=== PATIENT | male | born 1950 | race Caucasian/White ===

== ENCOUNTER → 2017-11-13 08:55 | Outpatient (CLI) | payer OTHER, SELFPAY ==
--- NOTE | 2017-11-13 09:01 | ADUL_ITS ---
Reason For Study: Subclavian stenosis LEFT Subclavian A Above clavicle - 179.0 cm/s Prox - 241.0 cm/s Mid -212.0 cm/s Dist - 149.0 cm/s Axillary A - 207.0 cm/s Brachial A Prox 152.0 cm/s Mid - 157.0 cm/s Dist - 108.0 cm/s Radial A Prox - 101.0 cm/s Mid - 91.1 cm/s Dist -111.0 cm/s Ulnar A Prox - 72.7 cm/s Mid - 57.5 cm/s Dist - 79.7 cm/s. Interpretation Summary 1. Left arm normal duplex with triphasic flow. Ordering Physician: Derrick Nelson Referring Physician: Derrick Nelson Performed By: Jasmyn Grace RVT
--- NOTE | 2017-11-18 11:27 | LEAS ---
Arterial Study - Arterial Study Arterial Study: Date of scan 11/13/[address] Nelson History: Patient with intermittent claudication with known atherosclerosis previous history of subclavian stenosis diabetes hyperlipidemia and tobacco abuse. Interpretation: Right lower extremity with normal pulsatile flow noted from the thigh all the way down through the calf out through the ankle into the foot with an adequate waveform. Duplex shows biphasic flow the vessels at the ankle and triphasic flow the right brachial artery. ABIs are 0.94 the posterior tibial with the digit brachial index is 0.55. Left lower extremity was again with normal pulsatile flow from the thigh down through the calf ankle out through the digits duplex again with biphasic flow noted at the ankle MICHELLE 1.1 to the posterior tibial 0.8 for the dorsalis pedis digit brachial index 0.59. Impression: 1. Right lower extremity with no evidence of significant arterial occlusive disease at rest with an MICHELLE 0.94. 2. Left lower extremity no evidence significant arterial occlusive occlusive disease at rest with an MICHELLE 1.12 3. Mild small vessel disease with DIP digit brachial index 0.55 and 0.59
--- NOTE | 2017-11-18 11:30 | LEAS_ITS ---
Arterial Study - Arterial Study Arterial Study: Date of scan 11/13/[address] Nelson History: Patient with intermittent claudication with known atherosclerosis previous history of subclavian stenosis diabetes hyperlipidemia and tobacco abuse. Interpretation: Right lower extremity with normal pulsatile flow noted from the thigh all the way down through the calf out through the ankle into the foot with an adequate waveform. Duplex shows biphasic flow the vessels at the ankle and triphasic flow the right brachial artery. ABIs are 0.94 the posterior tibial with the digit brachial index is 0.55. Left lower extremity was again with normal pulsatile flow from the thigh down through the calf ankle out through the digits duplex again with biphasic flow noted at the ankle MICHELLE 1.1 to the posterior tibial 0.8 for the dorsalis pedis digit brachial index 0.59. Impression: 1. Right lower extremity with no evidence of significant arterial occlusive disease at rest with an MICHELLE 0.94. 2. Left lower extremity no evidence significant arterial occlusive occlusive disease at rest with an MICHELLE 1.12 3. Mild small vessel disease with DIP digit brachial index 0.55 and 0.59
== END ==
PROVIDERS: Family Provider Family Medicine; PCP Family Medicine; Visit Provider Surgery Vascular Surgery
DX: I70.213 Atherosclerosis of native arteries of extremities with intermittent claudication, bilateral legs (principal); I77.1 Stricture of artery; Z86.73 Personal history of transient ischemic attack (TIA), and cerebral infarction without residual deficits; E11.9 Type 2 diabetes mellitus without complications; E78.00 Pure hypercholesterolemia, unspecified; F17.200 Nicotine dependence, unspecified, uncomplicated
CPT/HCPCS: 93922; 93923; 93926

== ENCOUNTER → 2018-01-14 08:00 | Outpatient (CLI) | payer OTHER, SELFPAY ==
[2018-01-18 14:00] LABS: Protein, Urine (Random) 40.2 mg/dL (<11.9)
[2018-01-18 14:01] LABS: Protein:Creat Ratio 227 mg/g CRE (0-200)
[2018-01-18 14:02] LABS: PTHIN 60.4 pg/mL (18.4-80.1)
== END ==
PROVIDERS: Visit Provider Internal Medicine Nephrology
DX: N18.3 Chronic kidney disease, stage 3 (moderate) (principal)
CPT/HCPCS: 82570; 83970; 84156

== ENCOUNTER → 2018-03-19 09:51 | Outpatient (CLI) | payer OTHER, SELFPAY ==
--- NOTE | 2018-03-19 09:55 | US_ITS ---
STUDY: RENAL ULTRASOUND - COMPLETE REASON FOR EXAM: Male, 67 years old. Chronic kidney disease TECHNIQUE: Ultrasound evaluation of the kidneys was performed with real-time and static mi-scale imaging. COMPARISON: None. FINDINGS: RIGHT KIDNEY: Normal location of the right kidney, which is normal in size. The right kidney measures 10.8 x 5.2 x 5.1 cm. There is a normal cortex of the right kidney. The renal cortex measures 1 cm. There is no right renal mass or cyst. There are no right renal calculi. There is no right hydronephrosis. DISTAL RIGHT URETER: There is non-visualization of the distal right ureter. There is no demonstrated right ureterovesical junction calculus. There is a visualized right ureteral jet. LEFT KIDNEY: Normal location of the left kidney, which is normal in size. The left kidney measures 12.0 x 5.1 x 5.1 cm. There is a normal cortex of the left kidney. The renal cortex measures 0.9 cm. There is a 1.9 cm cyst in the superior portion of the left kidney and a 1.3 cm cyst in the inferior portion of the left kidney There are no left renal calculi. There is no left hydronephrosis. DISTAL LEFT URETER: There is non-visualization of the distal left ureter. There is no demonstrated left ureterovesical junction calculus. There is a visualized left ureteral jet. . BLADDER: The urinary bladder is normal US/Kidney and Bladder IMPRESSION: Benign renal cysts. Electronically Signed: Hughson CarlomagdalenaPatricia, at 7:27 EDT Tel , Service support ,
== END ==
PROVIDERS: Family Provider Family Medicine; PCP Family Medicine; Visit Provider Internal Medicine Nephrology
DX: N18.3 Chronic kidney disease, stage 3 (moderate) (principal)
CPT/HCPCS: 76770

== ENCOUNTER → 2018-04-08 11:28 | Outpatient (CLI) | payer OTHER, SELFPAY ==
[2018-04-08 12:30] LABS: Protein, Urine (Random) 33.6 mg/dL (<11.9); Protein:Creat Ratio 168 mg/g CRE (0-200)
[2018-04-09 09:51] LABS: PTHIN 46.6 pg/mL (18.4-80.1)
== END ==
PROVIDERS: Family Provider Family Medicine; PCP Family Medicine; Visit Provider Internal Medicine Nephrology
DX: N18.3 Chronic kidney disease, stage 3 (moderate) (principal)
CPT/HCPCS: 82570; 83970; 84156

== ENCOUNTER → 2018-06-01 08:45 | Outpatient (CLI) | payer OTHER, SELFPAY ==
[2018-06-01 12:16] LABS: PSA,Total - Annual Screen 0.49 ng/mL (0.00-4.00)
== END ==
PROVIDERS: Family Provider Family Medicine; PCP Family Medicine; Visit Provider Nurse Practitioner Adult Health
DX: N40.1 Benign prostatic hyperplasia with lower urinary tract symptoms (principal); Z12.5 Encounter for screening for malignant neoplasm of prostate
CPT/HCPCS: 36415; 84153; G0103

== ENCOUNTER → 2018-08-12 07:56 | Outpatient (CLI) | payer OTHER, SELFPAY ==
--- NOTE | 2018-08-12 07:58 | AAVD_ITS ---
Reason For Study: Atherosclerosis Aorta Measurements Aorta Doppler Measurements Proximal aorta measures1.35 x 1.30cm. in cross- Peak systolic flow velocities within the proximal sectional axis. aorta measure 53.2 cm/sec. Proximal aorta measures1.32cm. in longitudinal Peak systolic flow velocities within the mid aorta axis. measure 81.3 cm/sec. Mid aorta measures1.78 x 1.69cm. in cross- Peak systolic flow velocities within the distal sectional axis. aorta measure 77.6 cm/sec. Mid aorta measures1.45cm. in longitudinal axis. Distal aorta measures2.26 x 2.18cm. in cross- sectional axis. Distal aorta measures2.17cm. in longitudinal axis. Left Iliac Artery Left iliac artery measures 0.60 x 0.66 cm. in the cross-sectional axis. Left iliac artery measures 0.61 cm. in the longitudinal axis. Peak systolic velocity in the left iliac artery measures 139 cm/sec. Right Iliac Artery Right iliac artery measures 0.94 x 1.16 cm. in the cross-sectional axis. Right iliac artery measures 0.89 cm. in the longitudinal axis. Peak systolic velocity in the right iliac artery measures 312 cm/sec. Procedure Aorta IVC Iliac vasculature or bypass grafts 32391. Exam performed in department. Iliac arteries were technically difficult to visualize due to patient body habitus and bowel gas. Interpretation Summary 1. aorta with no aneurysm or stenosis. 2. right YARI with stenosis over 75% and psv 312. Ordering Physician: Derrick Nelson Referring Physician: Branden Shannon M.D. Performed By: Jaylen Edwards RVT and Student
--- NOTE | 2018-08-18 11:47 | LEAS ---
Arterial Study - Arterial Study Arterial Study: Date of scan: 08/12/[address] Nelson History: Patient with some increasing intermittent claudication. History is smoking diabetes hyperlipidemia. Interpretation. Right lower extremity with pulsatile flow noted at the ankle and adequate waveform duplex shows more of a triphasic waveform noted in both vessels. With an MICHELLE 0.73 of the PT and 0.83 of the DP. Digital brachial index is 0.5. Left lower extremity with follow-up. Flow noted at the ankle with a good waveform. Duplex shows mostly biphasic flow both vessels. With an MICHELLE of 1.01 at the PT and 0.82 with a DP. Digit brachial index 0.44. Subclavian of note the left subclavian was a pressure 154 with the right being 181. Does have a history of subclavian stent. Impression: 1. Mild arterial occlusive disease on the right with an MICHELLE 0.83. 2. Left lower extremity with no evidence of significant arterial occlusive disease at rest with an MICHELLE 1.01. 3. Bilateral small vessel disease with digit brachial index 0.5 on the right 0.44 on the left 4. Decreased blood pressure with 20 seven-point difference from the right to the left arm, further evaluation of previous left subclavian proximal stenosis.
--- OUTSIDE RECORDS SUMMARY | 2018-10-07 07:44 | XMS RPT_ITS ---
:1950 Author Organization OHIP Support Name Relationship Address Phone R Unavailable Unavailable Unavailable ARITA, YOLI Unavailable [address] + [place] [address] R Unavailable Unavailable Unavailable ARITA, YOLI Unavailable [address] + [place] [address] R Unavailable Unavailable Unavailable ARITA, YOLI Unavailable [address] + [place] [address] R Unavailable Unavailable Unavailable ARITA, YOLI Unavailable [address] + [place] [address] R Unavailable Unavailable Unavailable Arita, Yoli Unavailable [address] + [place] [address] R Unavailable Unavailable Unavailable Arita, Yoli Unavailable [address] + [place] [address] R Unavailable Unavailable Unavailable Arita, Yoli Unavailable [address] + [place] [address] R Unavailable Unavailable Unavailable Arita, Yoli Unavailable [address] [phone] [place] [address] R Unavailable Unavailable Unavailable Arita, Yoli Unavailable [address] [phone] [place] [address] R Unavailable Unavailable Unavailable ARITA, YOLI Unavailable [address] [phone] [place] [address] Care Team Providers Name Role Phone Derrick Nelson Attending Unavailable Derrick Nelson Referring Unavailable Branden Shannon Primary Care Formerly [facility] Employee Attending Unavailable Dami Black Attending Unavailable Dami Black Attending Unavailable Dami Black Referring Unavailable Branden Shannon Primary Care Unavailable [facility] Employee Attending Unavailable Dami Black Attending Unavailable Branden Shannon Primary Care Unavailable Dami Black Referring Unavailable Karis Cerna Attending Unavailable Karis Cerna Referring Unavailable TrillaBranden Primary Care Unavailable TrillaBranden Primary Care Unavailable Referred, Self Attending Unavailable [facility] Employee Attending Unavailable NelsonDerrick barnes Gumaro Attending Unavailable OmarDerrick Gumaro Referring Unavailable TrillaBranden Primary Care Unavailable PROBLEMS PROBLEMS DATE TYPE CONDITION / CODE ATTENDING STATUS SOURCE 04/09/2018 Unknown N18.3 - Chronic Dami Black Active [place] kidney disease, stage Community 3 (moderate) / Hospital N18.3(ICD-10) Repository 11/13/2017 Unknown I70.213 - Derrick Nelson A Active [place] Atherosclerosis [facility] [place] arteries of Hospital extremities with Repository intermittent claudication, bilateral legs / I70.213(ICD-10) 11/13/2017 Unknown I77.1 - Stricture of Derrick Nelson A Active [place] artery / Community I77.1(ICD-10) Hospital Repository 11/13/2017 Unknown I63.9 - Cerebral Derrcik Nelson A Active [place] infarction, Community unspecified / Hospital I63.9(ICD-10) Repository 11/13/2017 Unknown E11.9 - Type 2 Derrick Nelson A Active [place] diabetes mellitus [facility] without complications Hospital / E11.9(ICD-10) Repository 11/13/2017 Unknown 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, Repository unspecified / E78.70(ICD-10) 11/13/2017 Unknown F17.200 - Nicotine Derrick eNlson A Active [place] dependence, Community unspecified, Hospital uncomplicated / Repository F17.200(ICD-10) PROCEDURES PROCEDURES No Procedure Records FoundRESULTS RESULTS LOWER EXT ARTERIAL Observed: 08/18/2018 Status: F Source: [place] STUDY 11:50 AM [facility] HOSPITAL REPOSITORY [facility] [address] [place] [address] 08/18/18 1147 MR#: [id number] Acct: [id number] Name: FIDEL ARITA Rep #: [id number] : 1950 67 From: Derrick Nelson MD Attending Dr: Derrick Nelson MD Status: REG CLI Ordering Dr: Date: 08/18/18 Location: [facility] Sex: M C Admitted: Arterial Study - Arterial Study Arterial Study: Date of scan: 08/12/[address] Nelson History: Patient with some increasing intermittent claudication. History is smoking diabetes hyperlipidemia. Interpretation. Right lower extremity with pulsatile flow noted at the ankle and adequate waveform duplex shows more of a triphasic waveform noted in both vessels. With an MICHELLE 0.73 of the PT and 0.83 of the DP. Digital brachial index is 0.5. Left lower extremity with follow-up. Flow noted at the ankle with a good waveform. Duplex shows mostly biphasic flow both vessels. With an MICHELLE of 1.01 at the PT and 0.82 with a DP. Digit brachial index 0.44. Subclavian of note the left subclavian was a pressure 154 with the right being 181. Does have a history of subclavian stent. Impression: 1. Mild arterial occlusive disease on the right with an MICHELLE 0.83. 2. Left lower extremity with no evidence of significant arterial occlusive disease at rest with an MICHELLE 1.01. 3. Bilateral small vessel disease with digit brachial index 0.5 on the right 0.44 on the left 4. Decreased blood pressure with 20 seven-point difference from the right to the left arm, further evaluation of previous left subclavian proximal stenosis. 08/18/18 1150 <Electronically signed by Derrick Nelson MD> Date Derrick Nelson MD CC: Derrick Nelson MD; Branden Shannon DO Date Dictated: 08/18/18 1147 Date Transcribed: 08/18/18 1147 Deicer Finisher: MAURICIO Signed ABD AORTIC/IVC DUPLEX Observed: 08/18/2018 Status: F Source: [place] SCAN 8:31 AM [facility] [address] Abd Aortic/IVC Duplex scan 08/12/18 0802 MR#: [id number] Acct: [id number] Name: FIDEL ARITA #: [id number] : 1950 67 From: Derrick Nelson MD Attending Dr: Derrick Nelson MD Status: REG CLI Ordering Dr: Derrick Nelson MD Date: 08/12/18 Location: [facility] Sex: M C Admitted: Reason For Study: Atherosclerosis Aorta Measurements Aorta Doppler Measurements Proximal aorta measures1.35 x 1.30cm. in cross- Peak systolic flow velocities within the proximal sectional axis. aorta measure 53.2 cm/sec. Proximal aorta measures1.32cm. in longitudinal Peak systolic flow velocities within the mid aorta axis. measure 81.3 cm/sec. Mid aorta measures1.78 x 1.69cm. in cross- Peak systolic flow velocities within the distal sectional axis. aorta measure 77.6 cm/sec. Mid aorta measures1.45cm. in longitudinal axis. Distal aorta measures2.26 x 2.18cm. in cross- sectional axis. Distal aorta measures2.17cm. in longitudinal axis. Left Iliac Artery Left iliac artery measures 0.60 x 0.66 cm. in the cross-sectional axis. Left iliac artery measures 0.61 cm. in the longitudinal axis. Peak systolic velocity in the left iliac artery measures 139 cm/sec. Right Iliac Artery Right iliac artery measures 0.94 x 1.16 cm. in the cross-sectional axis. Right iliac artery measures 0.89 cm. in the longitudinal axis. Peak systolic velocity in the right iliac artery measures 312 cm/sec. Procedure Aorta IVC Iliac vasculature or bypass grafts 14924. Exam performed in department. Iliac arteries were technically difficult to visualize due to patient body habitus and bowel gas. Interpretation Summary 1. aorta with no aneurysm or stenosis. 2. right YARI with stenosis over 75% and psv 312. Ordering Physician: Derrick Nelson Referring Physician: Branden Shannon M.D. Performed By: Jaylen Edwards RVT and Student 08/18/18830 Date Derrick Nelson MD CC: Derrick Nelson MD; Branden Shannon Date Dictated: 08/12/18801 Date Transcribed: 08/18/18830 Deicer Finisher: Signed URINALYSIS, ROUTINE Collected: 08/03/2018 Status: F Source: [place] ([place]IPST[place]) 8:00 AM [facility] Order Comment: How was Urine Obtained? CLEAN CATCH TYPE CODE TESTS RESULT OUT OF RANGE REFERENCE UNITS LAB L400.3000 Yellow COLOR Normal Yellow LAB L400.3050 Clear Normal CLARITY Clear LAB L400.3200 Normal mg/dl Normal GLUCOSE, UR Normal LAB L400.3300 Negative mg/dL Normal BILIRUBIN URINE Negative LAB L400.3400 Negative mg/dl Normal KETONE UR Negative LAB L400.3465 1.002-1.030 Normal SP.GR. DIPSTX 1.025 LAB L400.3550 5.0 - 8.0 pH UR Normal 5.0 LAB L400.3600 Negative mg/dl High PROT 30 DIPSTX LAB L400.3700 Normal mg/dl High 1 UROBILI LAB L400.3750 Negative Normal NITRITE UR Negative LAB L400.3780 Negative /ul Normal OCCULT BLOOD-UR Negative LAB L400.3800 Negative /ul LEUK Normal ESTERASE Negative Performed By: #### L400.2010 #### [facility] [address] [place], [address] CBC W/DIFF, AUTOMATED Collected: 08/03/2018 Status: F Source: [place] 8:00 AM [facility] TYPE CODE TESTS RESULT OUT OF RANGE REFERENCE UNITS LAB L100.1000 4.4-11.0 K/mm3 Normal WBC 5.9 LAB L100.1200 4.6-6.2 M/mm3 Low RBC 4.24 LAB L100.1300 13.0-16.5 g/dl Low HGB 12.9 LAB L100.1400 40-54 % Normal HCT 40.1 LAB L100.1500 80-94 fL High MCV 94.6 LAB L100.1600 27.0-32.0 pg Normal MCH 30.4 LAB L100.1700 32-36 g/gl Normal MCHC 32.2 LAB L100.1810 11.6-14.6 % Normal RDW CV 13.3 LAB L100.1820 35.1-43.9 fl High RDW SD 45.7 LAB L100.1900 150-450 K/mm3 Normal PLT 198 LAB L100.2000 6.2-12.0 fl Normal MPV 10.6 LAB L100.2100 47-70 % Normal NEUT% 58.8 LAB L100.2200 19-41 % Normal LY% 23.2 LAB L100.2300 0-10 % High MONO% 10.2 LAB L100.2400 0-5 % High EO% 7.3 LAB L100.2500 0-1 % Normal BASO% 0.3 LAB L100.2550 0.0-0.9 % Normal IM GRAN % 0.200 Result Comment: IG% - Immature Granulocytes (promyelocytes, myelocytes and metamyelocytes) > 1% indicates that a LEFT SHIFT is Present. LAB L100.2620 2.0-7.7 X10 3/uL Normal Absolute Neut 3.5 LAB L100.2720 0.83-4.51 X10 3/ul Normal Absolute Lymph 1.36 Performed By: #### L100.0100 #### [facility] [address] [facility] [place], [address] RENAL PROFILE Collected: 08/03/2018 Status: F Source: [place] 8:00 AM [facility] TYPE CODE TESTS RESULT OUT OF RANGE REFERENCE UNITS LAB L501.0100 74-106 mg/dL High GLU 226 Result Comment: Glucose result greater than or equal to 200 mg/dL suggests DIABETES MELLITUS per A.D.A. criteria. Please note revised GLUCOSE reference range effective 2017. LAB L501.1000 7-18 mg/dL High BUN 33 LAB L501.1100 0.70-1.30 mg/dL High CREAT,SERUM 2.14 Result Comment: The validity of the calculated GFR AND GFRAA in patients over 70 years has not been determined. Clinical correlation is essential. LAB L501.1110 >60 mL/min Low EST GFR 33 Result Comment: Non- GFR Calc LAB L501.1115 >60 mL/min Low EST GFR - AA 40 Result Comment: GFR Calc LAB L501.1300 10-20 RATIO Normal BUN/CRE 15.4 LAB L501.1800 3.2-5.0 g/dL Normal ALB 3.7 LAB L501.2200 8.5-10.1 mg/dL CA Normal 8.6 LAB L501.2300 2.5-4.9 mg/dL Normal PHOS 3.3 LAB L501.5300 136-145 mmol/L NA Normal 138 LAB L501.5600 3.5-5.1 mmol/L K Normal 5.0 LAB L501.5900 98-107 mmol/L CL Normal 106 LAB L501.6100 21.0-32.0 mmol/L Normal CO2 23.0 Performed By: #### L500.3600 #### [facility] [address] [facility]. [place], [place], [address] VITAMIN D,25 HYDROXY Collected: 08/03/2018 Status: F Source: [place] 8:00 AM [facility] TYPE CODE TESTS RESULT OUT OF REFERENCE UNITS RANGE LAB L506.1000 29.95-100.01 ng/mL Low Vitamin D 20.7 25-OH Result Comment: Vitamin D 25(OH) Status Range Deficiency <20 ng/mL (50nmol/L) Insuffciency 20 - 30 ng/mL (50 - 75 nmol/L) Sufficiency 30 - 100 ng/mL (75 - 250 nmol/L) Toxicity >100 ng/mL (>250 nmol/L) Performed By: #### L506.1000 #### [facility] [address] [facility]. [place], [place], [address] PROTEIN+CREATININE Collected: Status: F Source: [place] RATIO,URINE 08/03/2018 8:00 AM [facility] TYPE CODE TESTS RESULT OUT OF RANGE REFERENCE UNITS LAB L501.1200 NO RANGE EST. mg/dL Normal UR CREAT 338.00 LAB L501.1930 <11.9 mg/dL High 39.1 PROTEIN,UR.R AN. LAB L501.1940 0-200 mg/g CRE Normal PROT:CRE 116 RATIO Performed By: #### L501.0900, L502.0250 #### [facility] [address] [place], [address] MICROALB:CREAT Collected: 08/03/2018 Status: F Source: [place] RATIO,RANDOM UR 8:00 AM [facility] TYPE CODE TESTS RESULT OUT OF RANGE REFERENCE UNITS LAB L502.0500 NO RANGE EST. mg/L Normal 133.0 MICROALBUMIN ,UR LAB L502.0600 <30 mg/g CRE mg/g CRE High 39.3 MALB:CREAT Performed By: #### L501.0900, L502.0250 #### [facility] [address] [facility]. [place], [place], [address] PSA,TOTAL - ANNUAL Collected: 06/01/2018 Status: F Source: [place] SCREEN 8:51 AM [facility] TYPE CODE TESTS RESULT OUT OF RANGE REFERENCE UNITS LAB L501.9910 0.00-4.00 ng/mL Normal PSA,TOT 0.49 SCREEN Result Comment: This test was performed using the TPSA assay method for the [employer] chemistry system. Values obtained with different assay methods cannot be used interchangably. When changing PSA assays in the course of monitoring a patient, additional sequential testing should be carried out to confirm baseline values. Performed By: #### L501.9910 #### [facility] [address] [facility] [place], [address] URINALYSIS, ROUTINE Collected: 04/08/2018 Status: F Source: [place] (DIPST[place]) 8:00 AM [facility] Order Comment: How was Urine Obtained? CLEAN CATCH TYPE CODE TESTS RESULT OUT OF RANGE REFERENCE UNITS LAB L400.3000 Yellow COLOR Normal Yellow LAB L400.3050 Clear Normal CLARITY Clear LAB L400.3200 Normal mg/dl Normal GLUCOSE, UR Normal LAB L400.3300 Negative mg/dL Normal BILIRUBIN URINE Negative LAB L400.3400 Negative mg/dl Normal KETONE UR Negative LAB L400.3465 1.002-1.030 Normal SP.GR. DIPSTX 1.020 LAB L400.3550 5.0 - 8.0 pH UR Normal 5.0 LAB L400.3600 Negative mg/dl High PROT 30 DIPSTX LAB L400.3700 Normal mg/dl Normal UROBILI Normal LAB L400.3750 Negative Normal NITRITE UR Negative LAB L400.3780 Negative /ul Normal OCCULT BLOOD-UR Negative LAB L400.3800 Negative /ul LEUK Normal ESTERASE Negative Performed By: #### L400.2010 #### [facility] [place], [address] CBC W/DIFF, AUTOMATED Collected: 04/08/2018 Status: F Source: [place] 8:00 AM [facility] TYPE CODE TESTS RESULT OUT OF RANGE REFERENCE UNITS LAB L100.1000 4.4-11.0 K/mm3 Normal WBC 6.1 LAB L100.1200 4.6-6.2 M/mm3 Low RBC 4.17 LAB L100.1300 13.0-16.5 g/dl Low HGB 12.8 LAB L100.1400 40-54 % Low HCT 39.2 LAB L100.1500 80-94 fL Normal MCV 94.0 LAB L100.1600 27.0-32.0 pg Normal MCH 30.7 LAB L100.1700 32-36 g/gl Normal MCHC 32.7 LAB L100.1810 11.6-14.6 % Normal RDW CV 13.2 LAB L100.1820 35.1-43.9 fl Normal RDW SD 43.7 LAB L100.1900 150-450 K/mm3 Normal PLT 193 LAB L100.2000 6.2-12.0 fl Normal MPV 10.9 LAB L100.2100 47-70 % Normal NEUT% 57.3 LAB L100.2200 19-41 % Normal LY% 26.8 LAB L100.2300 0-10 % Normal MONO% 9.6 LAB L100.2400 0-5 % High EO% 5.8 LAB L100.2500 0-1 % Normal BASO% 0.2 LAB L100.2550 0.0-0.9 % Normal IM GRAN % 0.300 Result Comment: IG% - Immature Granulocytes (promyelocytes, myelocytes and metamyelocytes) > 1% indicates that a LEFT SHIFT is Present. LAB L100.2620 2.0-7.7 X10 3/uL Normal Absolute Neut 3.5 LAB L100.2720 0.83-4.51 X10 3/ul Normal Absolute Lymph 1.62 Performed By: #### L100.0100 #### [facility] [address] [place], [address] RENAL PROFILE Collected: 04/08/2018 Status: F Source: [place] 8:00 AM [facility] TYPE CODE TESTS RESULT OUT OF RANGE REFERENCE UNITS LAB L501.0100 74-106 mg/dL High GLU 189 Result Comment: Fasting Glucose result greater than or equal to 126 mg/dL suggests DIABETES MELLITUS per A.D.A. criteria. Please note revised GLUCOSE reference range effective 2017. LAB L501.1000 7-18 mg/dL High BUN 34 LAB L501.1100 0.70-1.30 mg/dL High CREAT,SERUM 2.31 Result Comment: The validity of the calculated GFR AND GFRAA in patients over 70 years has not been determined. Clinical correlation is essential. LAB L501.1110 >60 mL/min Low EST GFR 30 Result Comment: Non- GFR Calc LAB L501.1115 >60 mL/min Low EST GFR - AA 36 Result Comment: GFR Calc LAB L501.1300 10-20 RATIO Normal BUN/CRE 14.7 LAB L501.1800 3.2-5.0 g/dL Normal ALB 3.7 LAB L501.2200 8.5-10.1 mg/dL CA Normal 8.7 LAB L501.2300 2.5-4.9 mg/dL Normal PHOS 3.2 LAB L501.5300 136-145 mmol/L NA Normal 141 LAB L501.5600 3.5-5.1 mmol/L K Normal 5.1 LAB L501.5900 98-107 mmol/L High CL 109 LAB L501.6100 21.0-32.0 mmol/L Normal CO2 25.0 Performed By: #### L500.3600 #### [facility] [address] [place], [place], [address] MICROALB:CREAT Collected: 04/08/2018 Status: F Source: [place] RATIO,RANDOM UR 8:00 AM [facility] TYPE CODE TESTS RESULT OUT OF RANGE REFERENCE UNITS LAB L501.1200 NO RANGE EST. mg/dL Normal UR CREAT 207.00 LAB L502.0500 NO RANGE EST. mg/L Normal 76.6 MICROALBUMIN ,UR LAB L502.0600 <30 mg/g CRE mg/g CRE High 37.0 MALB:CREAT Performed By: #### L502.0250 #### [facility] [address] [place], [address] PROTEIN+CREATININE Collected: Status: F Source: [place] RATIO,URINE 04/08/2018 8:00 AM [facility] TYPE CODE TESTS RESULT OUT OF RANGE REFERENCE UNITS LAB L501.1200 NO RANGE EST. mg/dL Normal UR CREAT 200.00 LAB L501.1930 <11.9 mg/dL High 33.6 PROTEIN,UR.R AN. LAB L501.1940 0-200 mg/g CRE Normal PROT:CRE 168 RATIO Performed By: #### L501.0900 #### [facility] [address] [place], [address] PTHIN Collected: 04/08/2018 Status: F Source: [place] 8:00 AM [facility] TYPE CODE TESTS RESULT OUT OF RANGE REFERENCE UNITS LAB L509.1000 18.4-80.1 pg/mL Normal PTHIN 46.6 Performed By: #### L509.1000 #### [facility] [address] [place], [address] VITAMIN D,25 HYDROXY Collected: 04/08/2018 Status: F Source: [place] 8:00 AM [facility] TYPE CODE TESTS RESULT OUT OF RANGE REFERENCE UNITS LAB L506.1000 29.95-100.01 ng/mL Normal Vitamin D 36.8 25-OH Result Comment: Vitamin D 25(OH) Status Range Deficiency <20 ng/mL (50nmol/L) Insuffciency 20 - 30 ng/mL (50 - 75 nmol/L) Sufficiency 30 - 100 ng/mL (75 - 250 nmol/L) Toxicity >100 ng/mL (>250 nmol/L) Performed By: #### L506.1000 #### [facility] [address] [place], [address] KIDNEY AND BLADDER Observed: 03/19/2018 Status: F Source: [place] 9:55 AM [facility] Services [address] [place] [address] Kidney and Bladder MR#: [id number] Acct: [id number] Name: FIDEL ARITA Rep #: [id number] : 1950 M 67 From: David Doan MD PCP: Branden Shannon DO Status: REG CLI Study: Kidney and Bladder Date of Exam: 03/19/18 Exam# [id number] Ordering Dr: Dami Black MD STUDY: RENAL ULTRASOUND - COMPLETE REASON FOR EXAM: Male, 67 years old. Chronic kidney disease TECHNIQUE: Ultrasound evaluation of the kidneys was performed with real-time and static mi-scale imaging. COMPARISON: None. FINDINGS: RIGHT KIDNEY: Normal location of the right kidney, which is normal in size. The right kidney measures 10.8 x 5.2 x 5.1 cm. There is a normal cortex of the right kidney. The renal cortex measures 1 cm. There is no right renal mass or cyst. There are no right renal calculi. There is no right hydronephrosis. DISTAL RIGHT URETER: There is non-visualization of the distal right ureter. There is no demonstrated right ureterovesical junction calculus. There is a visualized right ureteral jet. LEFT KIDNEY: Normal location of the left kidney, which is normal in size. The left kidney measures 12.0 x 5.1 x 5.1 cm. There is a normal cortex of the left kidney. The renal cortex measures 0.9 cm. There is a 1.9 cm cyst in the superior portion of the left kidney and a 1.3 cm cyst in the inferior portion of the left kidney There are no left renal calculi. There is no left hydronephrosis. DISTAL LEFT URETER: There is non-visualization of the distal left ureter. There is no demonstrated left ureterovesical junction calculus. There is a visualized left ureteral jet. . BLADDER: The urinary bladder is normal US/Kidney and Bladder IMPRESSION: Benign renal cysts. Electronically Signed: David Doan, at 7:27 EDT Tel , Service support , CC: Dami Black MD; Branden Shannon DO Deicer Finisher: Signed CBC W/DIFF, AUTOMATED Collected: 01/14/2018 Status: F Source: [place] 8:00 AM [facility] TYPE CODE TESTS RESULT OUT OF RANGE REFERENCE UNITS LAB L100.1000 4.4-11.0 K/mm3 Normal WBC 6.8 LAB L100.1200 4.6-6.2 M/mm3 Low RBC 4.26 LAB L100.1300 13.0-16.5 g/dl Normal HGB 13.0 LAB L100.1400 40-54 % Low HCT 39.1 LAB L100.1500 80-94 fL Normal MCV 91.8 LAB L100.1600 27.0-32.0 pg Normal MCH 30.5 LAB L100.1700 32-36 g/gl Normal MCHC 33.2 LAB L100.1810 11.6-14.6 % Normal RDW CV 13.3 LAB L100.1820 35.1-43.9 fl High RDW SD 44.0 LAB L100.1900 150-450 K/mm3 Normal PLT 215 LAB L100.2000 6.2-12.0 fl Normal MPV 10.6 LAB L100.2100 47-70 % Normal NEUT% 57.0 LAB L100.2200 19-41 % Normal LY% 25.6 LAB L100.2300 0-10 % High MONO% 10.3 LAB L100.2400 0-5 % High EO% 6.6 LAB L100.2500 0-1 % Normal BASO% 0.4 LAB L100.2550 0.0-0.9 % Normal IM GRAN % 0.100 Result Comment: IG% - Immature Granulocytes (promyelocytes, myelocytes and metamyelocytes) > 1% indicates that a LEFT SHIFT is Present. LAB L100.2620 2.0-7.7 X10 3/uL Normal Absolute Neut 3.9 LAB L100.2720 0.83-4.51 X10 3/ul Normal Absolute Lymph 1.74 Performed By: #### L100.0100 #### [facility] [address] [place], [place], [address] RENAL PROFILE Collected: 01/14/2018 Status: F Source: [place] 8:00 AM [facility] TYPE CODE TESTS RESULT OUT OF RANGE REFERENCE UNITS LAB L501.0100 74-106 mg/dL High GLU 155 Result Comment: Fasting Glucose result greater than or equal to 126 mg/dL suggests DIABETES MELLITUS per A.D.A. criteria. Please note revised GLUCOSE reference range effective 2017. LAB L501.1000 7-18 mg/dL High BUN 46 LAB L501.1100 0.70-1.30 mg/dL High CREAT,SERUM 2.57 Result Comment: The validity of the calculated GFR AND GFRAA in patients over 70 years has not been determined. Clinical correlation is essential. LAB L501.1110 >60 mL/min Low EST GFR 27 Result Comment: Non- GFR Calc LAB L501.1115 >60 mL/min Low EST GFR - AA 32 Result Comment: GFR Calc LAB L501.1300 10-20 RATIO Normal BUN/CRE 17.9 LAB L501.1800 3.2-5.0 g/dL Normal ALB 3.9 LAB L501.2200 8.5-10.1 mg/dL CA Normal 8.8 LAB L501.2300 2.5-4.9 mg/dL Normal PHOS 3.8 LAB L501.5300 136-145 mmol/L NA Normal 138 LAB L501.5600 3.5-5.1 mmol/L High K 5.2 LAB L501.5900 98-107 mmol/L High CL 109 LAB L501.6100 21.0-32.0 mmol/L Normal CO2 22.0 Performed By: #### L500.3600 #### [facility] [address] [place], [address] URINALYSIS, ROUTINE Collected: 01/14/2018 Status: F Source: [place] (DIPSTICK) 8:00 AM [facility] Order Comment: How was Urine Obtained? CLEAN CATCH TYPE CODE TESTS RESULT OUT OF RANGE REFERENCE UNITS LAB L400.3000 Yellow COLOR Normal Yellow LAB L400.3050 Clear Normal CLARITY Clear LAB L400.3200 Normal mg/dl Normal GLUCOSE, UR Normal LAB L400.3300 Negative mg/dL Normal BILIRUBIN URINE Negative LAB L400.3400 Negative mg/dl Normal KETONE UR Negative LAB L400.3465 1.002-1.030 Normal SP.GR. DIPSTX 1.020 LAB L400.3550 5.0 - 8.0 pH UR Normal 5.0 LAB L400.3600 Negative mg/dl High PROT 30 DIPSTX LAB L400.3700 Normal mg/dl Normal UROBILI Normal LAB L400.3750 Negative Normal NITRITE UR Negative LAB L400.3780 Negative /ul High 10 OCCULT BLOOD-UR LAB L400.3800 Negative /ul LEUK Normal ESTERASE Negative Performed By: #### L400.2010 #### [facility] [address] [place], [address] PROTEIN+CREATININE Collected: Status: F Source: [place] RATIO,URINE 01/14/2018 8:00 AM [facility] TYPE CODE TESTS RESULT OUT OF RANGE REFERENCE UNITS LAB L501.1200 NO RANGE EST. mg/dL Normal UR CREAT 177.00 LAB L501.1930 <11.9 mg/dL High 40.2 PROTEIN,UR.R AN. LAB L501.1940 0-200 mg/g CRE High PROT:CRE 227 RATIO Performed By: #### L501.0900, L502.0250 #### [facility] [address] [place], [address] MICROALB:CREAT Collected: 01/14/2018 Status: F Source: [place] UR 8:00 AM [facility] [place] TYPE CODE TESTS RESULT OUT OF RANGE REFERENCE UNITS LAB L502.0500 NO RANGE EST. mg/L Normal 81.4 MICROALBUMIN ,UR LAB L502.0600 <30 mg/g CRE mg/g CRE High 46.0 MALB:CREAT LAB L501.1200 NO RANGE EST. mg/dL Normal UR CREAT 177.00 Performed By: #### L501.0900, L502.0250 #### [facility] [address] [place], [address] PTHIN Collected: 01/14/2018 Status: F Source: [place] 8:00 AM [facility] [place] [place] TYPE CODE TESTS RESULT OUT OF RANGE REFERENCE UNITS LAB L509.1000 18.4-80.1 pg/mL Normal PTHIN 60.4 Result Comment: Please Note: PTH INTACT METHOD AND REFERENCE RANGE CHANGE Effective 09/02/2017. Performed By: #### L509.1000 #### [facility] [address] [place], [address] VITAMIN D,25 HYDROXY Collected: 01/14/2018 Status: F Source: [place] 8:00 AM [facility] [place] TYPE CODE TESTS RESULT OUT OF RANGE REFERENCE UNITS LAB L506.1000 29.95-100.01 ng/mL Normal Vitamin D 38.5 25-OH Result Comment: Vitamin D 25(OH) Status Range Deficiency <20 ng/mL (50nmol/L) Insuffciency 20 - 30 ng/mL (50 - 75 nmol/L) Sufficiency 30 - 100 ng/mL (75 - 250 nmol/L) Toxicity >100 ng/mL (>250 nmol/L) Performed By: #### L506.1000 #### [facility] [address] [place], [address] PROTEIN+CREATININE Collected: Status: F Source: [place],URINE 01/14/2018 8:00 AM [facility] [place] [place] TYPE CODE TESTS RESULT OUT OF RANGE REFERENCE UNITS LAB L501.1200 NO RANGE EST. mg/dL Normal UR CREAT 177.00 LAB L501.1930 <11.9 mg/dL High 40.2 PROTEIN,UR.R AN. LAB L501.1940 0-200 mg/g CRE High PROT:CRE 227 RATIO Performed By: #### L501.0900 #### [facility] [address] [place], [address] PTHIN Collected: 01/14/2018 Status: F Source: [place] 8:00 AM [facility] [place] TYPE CODE TESTS RESULT OUT OF RANGE REFERENCE UNITS LAB L509.1000 18.4-80.1 pg/mL Normal PTHIN 60.4 Result Comment: Please Note: PTH INTACT METHOD AND REFERENCE RANGE CHANGE Effective 09/02/2017. Performed By: #### L509.1000 #### [facility] [address] [place], [address] LOWER EXT ARTERIAL Observed: 11/18/2017 Status: F Source: [place] STUDY 11:30 AM [facility] [place] [address] [place] [address] 11/18/17 1127 MR#: [id number] Acct: [id number] Name: FIDEL ARITA Rep #: [id number] : 1950 66 From: Derrick Nelson MD Attending Dr: Derrick Nelson MD Status: REG CLI Ordering Dr: Date: 11/18/17 Location: [facility] Sex: M C Admitted: Arterial Study - Arterial Study Arterial Study: Date of scan 11/13/[address] Nelson History: Patient with intermittent claudication with known atherosclerosis previous history of subclavian stenosis diabetes hyperlipidemia and tobacco abuse. Interpretation: Right lower extremity with normal pulsatile flow noted from the thigh all the way down through the calf out through the ankle into the foot with an adequate waveform. Duplex shows biphasic flow the vessels at the ankle and triphasic flow the right brachial artery. ABIs are 0.94 the posterior tibial with the digit brachial index is 0.55. Left lower extremity was again with normal pulsatile flow from the thigh down through the calf ankle out through the digits duplex again with biphasic flow noted at the ankle MICHELLE 1.1 to the posterior tibial 0.8 for the dorsalis pedis digit brachial index 0.59. Impression: 1. Right lower extremity with no evidence of significant arterial occlusive disease at rest with an MICHELLE 0.94. 2. Left lower extremity no evidence significant arterial occlusive occlusive disease at rest with an MICHELLE 1.12 3. Mild small vessel disease with DIP digit brachial index 0.55 and 0.59 11/18/17 1130 <Electronically signed by Derrick Nelson MD> Date Derrick Nelson MD CC: Derrick Nelson MD; Branden Shannon DO Date Dictated: 11/18/171126 Date Transcribed: 11/18/171126 Deicer Finisher: MAURICIO Signed ARTERIAL DUPLEX US, Observed: 11/14/2017 Status: F Source: [place] LIMITED 5:03 PM [facility] [address] [place] [address] Art Duplex US Unilat Lower Ext 11/13/17 0905 MR#: [id number] Acct: [id number] Name: FIDEL ARITA Rep #: [id number] : 1950 66 From: Derrick Nelson MD Attending Dr: Derrick Nelson MD Status: REG CLI Ordering Dr: Derrick Nelson MD Date: 11/13/17 Location: [facility] Sex: M C Admitted: Reason For Study: Subclavian stenosis LEFT Subclavian A Above clavicle - 179.0 cm/s Prox - 241.0 cm/s Mid -212.0 cm/s Dist - 149.0 cm/s Axillary A - 207.0 cm/s Brachial A Prox 152.0 cm/s Mid - 157.0 cm/s Dist - 108.0 cm/s Radial A Prox - 101.0 cm/s Mid - 91.1 cm/s Dist -111.0 cm/s Ulnar A Prox - 72.7 cm/s Mid - 57.5 cm/s Dist - 79.7 cm/s. Interpretation Summary 1. Left arm normal duplex with triphasic flow. Ordering Physician: Derrick Nelson Referring Physician: Derrick Nelson Performed By: Jasmyn Grace RVT 11/14/171702 Date Derrick Nelson MD CC: Derrick Nelson MD; Branden Shannon DO Date Dictated: 11/13/17904 Date Transcribed: 11/14/171702 Deicer Finisher: Signed ALLERGIES ALLERGIES DATE TYPE / CODE NAME / CODE REACTION SEVERITY SOURCE 02/27/2016 Drug No Known Unknown [place] [facility] Allergy/4160 Allergies/F00 Hospital 60890(SNOMED [id number](RXNOR Repository CT) M) ENCOUNTERS ENCOUNTERS ADMIT/DISCHARGE ACCOUNT ADMITTING ENCOUNTER LOCATION SOURCE NUMBER CLASS 08/12/2018 [id number] Ambulatory [place] 3 [facility] ing:CVS Repository 08/03/2018 [id number] Amb[place] [facility] ing:OLS.WCEH Repository 06/25/2018 [id number] Ambulatory [place] 6 [facility] ing:MASS Repository 06/01/2018 [id number] Ambulatory [place] 9 [facility] ing:LAB Repository 04/08/2018 [id number] Ambulatory [place] [facility] ing:LABSPEC Repository 04/08/2018 [id number] Ambulatory [place] 5 [facility] ing:OLS.WCEH Repository 03/19/2018 [id number] Ambulatory [place] 8 [facility] ing:US Repository 01/14/2018 [id number] Ambulatory [place] 7 [facility] ing:OLS.WCEH Repository 01/14/2018 [id number] Ambulatory [place] [facility] ing:LABSPEC Repository 11/13/2017 [id number] Ambulatory [place] [facility] ing:CVS Repository PAYERS PAYERS ENCOUNTER GUARANTOR PAYER SUBSCRIBER SOURCE 08/12/2018 FIDEL [id number] Insurance:AETNAPolicy STEELEDOB: [facility] [place]: [id number] [id number] Repository [address]Bin: ([phone]) Date:5394-82-87SI [phone] (HP) [id number] ABAD GARSIA [id number]: 08/12/2018 Secondary NOT GIVENUNK [place] Insurance:SELF PAY [facility] Number: Effective Repository Date:2018-07-30 08/03/2018 FIDEL Lagunas Primary NOT GIVENUNK [place] [id number] Insurance:SELF PAY [place] Number: Effective Repository [id number]: ([phone]) Date:2018-08-03 [phone] (HP) 06/25/2018 FIDEL Lagunas Primary NOT GIVENUNK [place] [id number] Insurance:SELF PAY [place] Number: Effective Repository [id number]: (330) Date:2018-06-11 [phone] (HP) 06/01/2018 FIDEL Lagunas Primary Yoli J [place] [id number] Insurance:AETNAPolicy SteeleDOB: [facility] [place]: [id number] [id number] Repository [address]Zlz: ([phone]) Date:2041-46-88ZD [phone] (HP) [id number] [address]CO: 06/01/2018 Secondary NOT GIVENUNK [place] Insurance:SELF PAY [facility] Number: Effective Repository Date:2018-06-01 04/08/2018 FIDEL Lagunas Primary Yoli J [place] [id number] Insurance:AETNAPolicy SteeleDOB: [facility] Number: [id number] [id number] Repository [address]Ajx: ([phone]) Date:9177-40-02HP [phone] (HP) [id number] [place] [phone]: 04/08/2018 Secondary NOT GIVENUNK [place] Insurance:SELF PAY [facility] Number: Effective Repository Date:2018-04-08 04/08/2018 FIDEL Lagunas Primary NOT GIVENUNK [place] [id number] Insurance:SELF PAY [place] Number: Effective Repository [id number]: (330) Date:2018-04-08 [phone] () 03/19/2018 FIDEL Lagunas Primary Yoli J [place] [id number] Insurance:AETNAPolicy SteeleDOB: [facility] Number: [id number] [id number] Repository [address]Iui: (330) Date:5025-43-60MW [phone] () [place] [address]NR: 03/19/2018 Secondary NOT GIVENUNK [place] Insurance:SELF PAY [facility] Number: Effective Repository Date:2018-01-27 01/14/2018 Fidel Lagunas Primary NOT GIVENUNK [place] [id number] Insurance:SELF PAY [place] Number: Effective Repository [id number]: (330) Date:2018-01-14 [phone] () 01/14/2018 Fidel Lagunas Primary YOLI [place] [id number] Insurance:AETNAPolicy STEELEDOB: [facility] Number: [id number] [place] [id number] Repository [address]Cam: ([phone]) Date:2533-76-27NS [phone] () [id number] [address]EC: 01/14/2018 Secondary NOT GIVENUNK [place] Insurance:SELF PAY [facility] Number: Effective Repository Date:2018-01-14 11/13/2017 Fidel Lagunas Primary YOLI [place] [id number] Insurance:AETNAPolicy STEELEDOB: [facility] Number: [id number], [place] [id number] Repository [address]Cua: ([phone]) Date:7742-86-72GJ [phone] () [id number] ABAD GARSIA [id number]: 11/13/2017 Secondary NOT GIVENUNK [place] Insurance:SELF PAY [facility]: Effective Repository Date:2017-10-19
== END ==
PROVIDERS: Family Provider Family Medicine; PCP Family Medicine; Referring Provider Surgery Vascular Surgery; Visit Provider Surgery Vascular Surgery
DX: I70.0 Atherosclerosis of aorta (principal); I70.213 Atherosclerosis of native arteries of extremities with intermittent claudication, bilateral legs
CPT/HCPCS: 93922; 93978

== ENCOUNTER → 2018-11-29 08:46 | Outpatient (CLI) | payer OTHER, SELFPAY ==
--- NOTE | 2018-11-29 08:50 | ART_ITS ---
Reason For Study: Aortic Atherosclerosis Procedure A bilateral lower extremity continuous wave Doppler with analog waveform analysis and ankle brachial indexes. Left Segmental Pressures Left brachial= 130mmHg. Left posterior tibial artery = 157mmHg. Left dorsalis pedis artery = 113mmHg. Left digit = 68 mmHg. Right Segmental Pressures Right brachial= 147mmHg. Right posterior tibial artery = 131mmHg. Right dorsalis pedis artery = 115mmHg. Right digit = 83 mmHg. Indices The right ankle brachial index by the posterior tibial artery is 0.89. The right ankle brachial index by the dorsalis pedis is 0.78. The right digital-brachial index is 0.56. The left ankle brachial index by the posterior tibial artery is 1.07. The left ankle brachial index by the dorsalis pedis is 0.77. The left digital-brachial index is 0.46. Interpretation Summary 1. Right mild occlussive disease and biphasic low and dustin 0.89 2. Left with tiphasic flow and no evidence occlussive disease and dustin 1.07. Ordering Physician: Derrick Nelson Referring Physician: Derrick Nelson Performed By: Belinda Ruggiero RDCS/RVT
--- NOTE | 2018-11-29 08:50 | AAVD_ITS ---
Reason For Study: Aortic Atherosclerosis Aorta Measurements Aorta Doppler Measurements Proximal aorta measures1.66cm x 1.73cm. in cross- Peak systolic flow velocities within the proximal sectional axis. aorta measure 73 cm/sec. Proximal aorta measures1.67cm. in longitudinal Peak systolic flow velocities within the mid aorta axis. measure 61 cm/sec. Mid aorta measures1.59cm x 1.73cm. in cross- Peak systolic flow velocities within the distal sectional axis. aorta measure 57 cm/sec. Mid aorta measures1.52cm. in longitudinal axis. Distal aorta measures2.21cm x 2.18cm. in cross- sectional axis. Distal aorta measures2.14cm. in longitudinal axis. Left Iliac Artery Left iliac artery measures 0.87cm x 0.92 cm. in the cross-sectional axis. Left iliac artery measures 0.82 cm. in the longitudinal axis. Peak systolic velocity in the left iliac artery measures 163 cm/sec. Right Iliac Artery Right iliac artery measures 0.89cm x 0.87 cm. in the cross-sectional axis. Right iliac artery measures 0.84 cm. in the longitudinal axis. Peak systolic velocity in the right iliac artery measures 205 cm/sec. Procedure Aorta IVC Iliac vasculature or bypass grafts 22051. Exam performed in department. Interpretation Summary 1. no evidecne of aortoiliac occlussive disease or aneurysm. Ordering Physician: Derrick Nelson Referring Physician: Branden Shannon Performed By: Belinda Ruggiero, WEI, RVT
--- NOTE | 2018-11-29 08:50 | ADU_ITS ---
Reason For Study: Aortic Atherosclerosis Right Velocities Left Velocities Ext. Iliac Artery, dist = 139 cm./sec. Ext Iliac Artery, dist = 189 cm./sec. Common Femoral Artery, dist = 156 cm./sec. Common Femoral Artery, dist = 150 cm./sec. Supf Femoral Artery, prox = 127 cm./sec. Supf. Femoral Artery, prox = 147 cm./sec. Supf Femoral Artery, mid = 237 cm./sec. Supf. Femoral Artery, mid = 144 cm./sec. Supf Femoral Artery, dist. = 131 cm./sec. Supf. Femoral Artery, dist = 92 cm./sec. Profunda Femoral Artery = 168 cm./sec. Profunda Femoral Artery = 144 cm./sec. Popliteal Artery, prox. = 65 cm./sec. Popliteal Artery, proximal, = 77 cm./sec. Popliteal Artery, mid = 67 cm./sec. Popliteal Artery, mid = 53 cm./sec. Popliteal Artery, dist = 76 cm./sec. Popliteal Artery, distal = 63 cm./sec. Post. Tibial Artery, prox = 43 cm./sec. Post. Tibial Artery, prox = 84 cm./sec. Post. Tibial Artery, mid = 20 cm./sec. Post Tibial Artery, mid = 80 cm./sec. Post. Tibial Artery, dist = 86 cm./sec. Post Tibial Artery, dist. = 93 cm./sec. Peroneal Artery, prox = 133 cm./sec. Peroneal Artery, prox = 62 cm./sec. Peroneal Artery, mid = 92 cm./sec. Peroneal Artery, mid = 57 cm./sec. Peroneal Artery,dist = 112 cm./sec. Peroneal Artery,dist. = 36 cm./sec. Ant. Tibial Artery, prox = 42 cm./sec. Ant.Tibial Artery, prox = 29 cm./sec. Ant. Tibial Artery, mid = 40 cm./sec. Ant Tibial Artery, mid = 46 cm./sec. Ant. Tibial Artery, dist = 108 cm./sec. Ant. Tibial Artery, distal = 38 cm./sec. Rt DPA: 52 cm/s. Lt DPA: 53cm/s. Procedure Exam performed in department. Interpretation Summary 1. Bilateral no stenosis and triphasic flow through popliteal and biphasic flow in tibials. Ordering Physician: Derrick Nelson Referring Physician: Branden Shannon Performed By: Belinda Ruggiero RDCS, RVT
== END ==
PROVIDERS: Family Provider Family Medicine; PCP Family Medicine; Referring Provider Surgery Vascular Surgery; Visit Provider Surgery Vascular Surgery
DX: I70.0 Atherosclerosis of aorta (principal); I77.1 Stricture of artery; I70.213 Atherosclerosis of native arteries of extremities with intermittent claudication, bilateral legs
CPT/HCPCS: 93922; 93925; 93978

== ENCOUNTER → 2018-12-24 09:43 | Outpatient (CLI) | payer OTHER, SELFPAY ==
[2018-12-24 09:12] VITALS: BMI 31.8
[2018-12-24 10:50] LABS: BNP,B-Type NATRIURETIC PEPTIDE 42.8 pg/mL (0-100)
== END ==
PROVIDERS: Referring Provider Internal Medicine Cardiovascular Disease; Visit Provider Internal Medicine Cardiovascular Disease
DX: R06.09 Other forms of dyspnea (principal)
CPT/HCPCS: 36415; 83880

== ENCOUNTER → 2019-01-17 | Outpatient (REF) | payer OTHER, SELFPAY ==
[2018-12-24 09:12] VITALS: BMI 31.8
[2019-01-17 11:44] LABS: Protein, Urine (Random) 30.1 mg/dL (<11.9)
== END | disposition home or self-care (01) ==
LOC: LABSPEC 11:27
PROVIDERS: Visit Provider Family Medicine
DX: Z00.00 Encounter for general adult medical examination without abnormal findings (principal)
CPT/HCPCS: 84156

== ENCOUNTER → 2019-01-20 | Outpatient (CLI) | payer OTHER, SELFPAY ==
[2018-12-24 09:12] VITALS: BMI 31.8
--- NOTE | 2019-01-20 09:57 | ECHOCS_ITS ---
Reason For Study: DYSPNEA/SOB Procedure This was a 2D Doppler, Color Flow transthoracic echocardiogram. Exam performed in department. Left Ventricle Normal LV size. Left ventricular systolic function is normal. The estimated ejection fraction is 65 %. Transmitral and pulmonary venous doppler flow suggestive of impaired relaxation of left ventricle. No regional wall motion abnormalities noted. Right Ventricle Normal RV size. Normal systolic function. Atria Normal left atrium. Normal right atrium. Mitral Valve Normal mitral valve. Tricuspid Valve Normal tricuspid valve. Mild (1+) tricuspid valve insufficiency. Pulmonary artery systolic pressure is 30 mmHg. Aortic Valve Normal aortic valve. Pulmonic Valve Normal pulmonic valve. Great Vessels Normal aortic root. The pulmonary artery is normal size. Normal inferior vena cava. Pericardium/Pleural No pericardial effusion. Medication 22 gauge I.V. with prn adaptor inserted into right arm. Diluted definity 7ml given slow IV push to enhance endocardial definition. MMode/2D Measurements & Calculations LVIDd: 5.1 cm IVSd: 1.1 cm Ao root diam: 3.3 cm LVIDs: 3.3 cm LVPWd: 1.0 cm RVDd: 3.4 cm FS: 36.3 % LAV(MOD-bp): 37.3 ml LVAd ap4: 28.0 cm2 SV(MOD-sp4): 42.8 ml LAV(MOD-bp) Indexed: 18.3 ml/m2 EDV(MOD-sp4): 85.1 ml LAV(MOD-sp2): 41.4 ml EDV(sp4-el): 86.3 ml LAV(MOD-sp4): 31.2 ml LVAs ap4: 17.9 cm2 ESV(MOD-sp4): 42.3 ml ESV(sp4-el): 42.2 ml EF(MOD-sp4): 50.3 % EF(sp4-el): 51.1 % SV(sp4-el): 44.1 ml LA A4 area: 14.9 cm2 LA dimension(2D): 3.9 cm RA A4 area: 12.6 cm2 Time Measurements MV dec time: 0.27 sec Doppler Measurements & Calculations MV E max zachary: 65.0 cm/sec Lat Peak E' Zachary: 8.4 cm/sec Med Peak E' Zachary: 10.8 cm/sec MV A max zachary: 76.6 cm/sec E/E' lat: 7.7 E/E' med: 6.0 MV E/A: 0.85 Ao V2 max: 129.6 cm/sec LV V1 max: 89.3 cm/sec PA V2 max: 96.6 cm/sec Ao max P.7 mmHg LV V1 max P.2 mmHg TR max zachary: 263.4 cm/sec TR max P.8 mmHg Interpretation Summary Normal LV size. Left ventricular systolic function is normal. The estimated ejection fraction is 65 %. Transmitral and pulmonary venous doppler flow suggestive of impaired relaxation of left ventricle Mild (1+) tricuspid valve insufficiency. Pulmonary artery systolic pressure is 30 mmHg. Ordering Physician: Zhang Quick Referring Physician: STEVE BOTELLO Performed By: Ly Blas RDCS
== END | disposition home or self-care (01) ==
LOC: CVS 09:56
PROVIDERS: Family Provider Family Medicine; PCP Family Medicine; Referring Provider Internal Medicine Cardiovascular Disease; Visit Provider Internal Medicine Cardiovascular Disease
DX: R06.09 Other forms of dyspnea (principal)
CPT/HCPCS: 93306; Q9957; A4216; C8929

== ENCOUNTER → 2019-01-25 | Outpatient (CLI) | payer OTHER, SELFPAY ==
[2018-12-24 09:12] VITALS: BMI 31.8
[2019-01-25 11:53] LABS: Albumin, Serum 3.6 g/dL (3.2-5.0); BUN 29 mg/dL (7-18); BUN/Creat Ratio 13.4 RATIO (10-20); Calcium,Total 8.6 mg/dL (8.5-10.1); Chloride 104 mmol/L (98-107); Creatinine, Serum 2.16 mg/dL (0.70-1.30); EST Glomerular Filtration Rate 32 mL/min (>60); Est Glom Filt Rate - Afr Amer 39 mL/min (>60); Glucose 321 mg/dL (74-106); Phosphorus 2.4 mg/dL (2.5-4.9); Potassium 5.2 mmol/L (3.5-5.1); Sodium Level 137 mmol/L (136-145)
== END | disposition home or self-care (01) ==
LOC: LAB 10:47
PROVIDERS: Family Provider Family Medicine; PCP Family Medicine; Referring Provider Internal Medicine Nephrology; Visit Provider Internal Medicine Nephrology
DX: N18.3 Chronic kidney disease, stage 3 (moderate) (principal)
CPT/HCPCS: 36415; 80069

== ENCOUNTER → 2019-06-28 07:48 | Outpatient (CLI) | payer OTHER, SELFPAY ==
[2019-06-24 09:32] VITALS: BMI 31.9
--- NOTE | 2019-06-28 07:50 | CDU_ITS ---
Reason For Study: Carotid bruits Rt. Velocities/BP Lt. Velocities/BP Prox CCA 130.2/20.6 cm/sec. Prox CCA 91.9/15.2 cm/sec. Mid CCA 132.1/22.5 cm/sec. Mid CCA 77.3/17 cm/sec. Dist CCA 77.3/12.4 cm/sec. Dist CCA 84.6/11.5 cm/sec. Prox ICA 156.2/37 cm/sec. Prox ICA 84.6/26.1 cm/sec. Mid ICA 108.2/29.2 cm/sec. Mid ICA 91.9/22.5 cm/sec. Dist ICA 128/33.6 cm/sec. Dist ICA 84.6/22.5 cm/sec. Rt. ICA/CCA = 1.2. Lt. ICA/CCA = 1.1. Prox ECA 171.9/16 cm/sec. Prox ECA 179.6/11.1 cm/sec. Rt. Vert. 50.7/12.7 cm/sec. Lt. Vert. 46.5/11.3 cm/sec. Right Extracranial There is heterogeneous, smooth atherosclerotic plaque noted in the right common carotid artery. There is heterogeneous, irregular atherosclerotic plaque noted in the right internal carotid artery. There is homogeneous, irregular atherosclerotic plaque noted in the right external carotid artery. Antegrade flow is noted in the right vertebral artery. Left Extracranial There is homogeneous, irregular atherosclerotic plaque noted in the left common carotid artery. There is heterogeneous, irregular atherosclerotic plaque noted in the left internal carotid artery. There is heterogeneous, irregular atherosclerotic plaque noted in the left external carotid artery. Antegrade flow is noted in the left vertebral artery. Procedure Carotid Duplex [id number]. Exam performed in department. Interpretation Summary Moderate (50-69%) stenosis right extracranial internal carotid. Mild (<50%) stenosis left extracranial internal carotid. Flow within the vertebral arteries is antegrade bilaterally. Ordering Physician: Payal Virgen Performed By: Yolie Jonas RVT
== END ==
PROVIDERS: Referring Provider Physician Assistant Medical; Visit Provider Physician Assistant Medical
DX: I73.9 Peripheral vascular disease, unspecified (principal); I25.10 Atherosclerotic heart disease of native coronary artery without angina pectoris; R09.89 Other specified symptoms and signs involving the circulatory and respiratory systems
CPT/HCPCS: 93880

== ENCOUNTER → 2019-07-21 08:47 | Outpatient (CLI) | payer OTHER, SELFPAY ==
[2019-06-24 09:32] VITALS: BMI 31.9
[2019-07-21 09:58] LABS: PSA,Total - Annual Screen 0.27 ng/mL (0.00-4.00)
== END ==
PROVIDERS: Referring Provider Nurse Practitioner Adult Health; Visit Provider Nurse Practitioner Adult Health
DX: Z12.5 Encounter for screening for malignant neoplasm of prostate (principal)
CPT/HCPCS: 36415; 84153; G0103

== ENCOUNTER → 2019-07-27 10:13 | Outpatient (CLI) | payer OTHER, SELFPAY ==
[2019-06-24 09:32] VITALS: BMI 31.9
--- NOTE | 2019-07-27 10:18 | RAD_ITS ---
STUDY: X-RAY CHEST REASON FOR EXAM: Male, 68 years old. Fall. TECHNIQUE: Frontal and lateral views of the chest. COMPARISON: 02/27/2016. FINDINGS: The lungs are clear and expanded. There is no demonstrated pleural abnormality. Normal size heart. Normal mediastinum and chloe. Normal visualized pulmonary arteries. Normal visualized aortic arch and descending thoracic aorta. There are diffuse degenerative changes of the visualized thoracic spine. Normal visualized ribs, clavicles, and shoulders. There is no demonstrated abnormality of the visualized soft tissue structures of the upper abdomen. RAD/Chest PA and Lateral IMPRESSION: Degenerative changes, as described above. No demonstrated acute cardiopulmonary process. Electronically Signed: Lacho Lyles MD at 17:34 EST , Service support ,
== END ==
PROVIDERS: Referring Provider Nurse Practitioner Family; Visit Provider Nurse Practitioner Family
DX: J98.8 Other specified respiratory disorders (principal)
CPT/HCPCS: 71046

== ENCOUNTER → 2019-08-08 12:47 | Outpatient (CLI) | payer OTHER, SELFPAY ==
[2019-06-24 09:32] VITALS: BMI 31.9
--- NOTE | 2019-08-08 12:49 | AAVD_ITS ---
Reason For Study: Atherosclerosis Aorta Measurements Aorta Doppler Measurements Proximal aorta measures1.38 x 1.43cm. in cross- Peak systolic flow velocities within the proximal sectional axis. aorta measure 91.3 cm/sec. Proximal aorta measures1.38cm. in longitudinal Peak systolic flow velocities within the distal axis. aorta measure 84.7 cm/sec. Unable to visulaize mid aorta due to bowel gas. Distal aorta measures2.16 x 2.26cm. in cross- sectional axis. Distal aorta measures2.16cm. in longitudinal axis. Left Iliac Artery Left iliac artery measures 233.8 cm. in the cross-sectional axis. Left iliac artery measures 0.71 cm. in the longitudinal axis. Right Iliac Artery Right iliac artery measures 0.65 x 0.64 cm. in the cross-sectional axis. Right iliac artery measures 0.81 cm. in the longitudinal axis. Peak systolic velocity in the right iliac artery measures 218.2 cm/sec. Procedure Aorta IVC Iliac vasculature or bypass grafts [id number]. Exam performed in department. Interpretation Summary 1. No significant aortoiliac stenosis or aneurysm . Ordering Physician: Derrick [place] Performed By: Yolie Jonas RVT
--- NOTE | 2019-08-08 12:49 | ART_ITS ---
Reason For Study: Atheroslerosis Procedure A bilateral lower extremity continuous wave Doppler with analog waveform analysis and ankle brachial indexes. Left Segmental Pressures Left posterior tibial artery = 152mmHg. Left dorsalis pedis artery = 97mmHg. Left digit = 58 mmHg. The left dorsalis pedis waveforms are biphasic. The left posterior tibial artery waveforms are triphasic. Right Segmental Pressures Right brachial= 149mmHg. Right posterior tibial artery = 127mmHg. Right dorsalis pedis artery = 129mmHg. Right digit = 77 mmHg. The right dorsalis pedis waveforms are biphasic. The right posterior tibial artery waveforms are biphasic. Indices The right ankle brachial index by the dorsalis pedis is 0.87. The right ankle brachial index by the posterior tibial artery is 0.85. The right digital-brachial index is 0.52. The left ankle brachial index by the dorsalis pedis is 0.65. The left ankle brachial index by the posterior tibial artery is 1.02. The left digital-brachial index is 0.39. Interpretation Summary 1. Right mild occlussive disease with dustin 0.87. 2. Left no signficant occlussive disease wth dustin 1.02 3. Bilateral small vessel disease with 0.52/0.39. Ordering Physician: Derrick [place] Performed By: Yolie Jonas RVT
== END ==
PROVIDERS: Referring Provider Surgery Vascular Surgery; Visit Provider Surgery Vascular Surgery
DX: I70.213 Atherosclerosis of native arteries of extremities with intermittent claudication, bilateral legs (principal); I77.1 Stricture of artery; Z86.73 Personal history of transient ischemic attack (TIA), and cerebral infarction without residual deficits; E11.9 Type 2 diabetes mellitus without complications; F17.200 Nicotine dependence, unspecified, uncomplicated; E78.00 Pure hypercholesterolemia, unspecified
CPT/HCPCS: 93922; 93978

== ENCOUNTER 2019-09-01 13:23 | Inpatient (IN) | payer OTHER, MEDICARE, SELFPAY ==
[2019-06-24 09:32] VITALS: BMI 31.9
[2019-09-01] VITALS (10 sets, daily range): BP systolic 96–132; BP diastolic 47–72; PULSE 70–120; RESP 14–18; TEMP 36.6–37.1; O2SAT 94–97; BMI 32.3; BMI 32.1; BMI 32.2
--- NOTE | 2019-09-01 13:59 | EKG12_ITS ---
Test Reason : PALPITATIONS Blood Pressure : / mmHG Vent. Rate : 113 BPM Atrial Rate : 133 BPM P-R Int : 000 ms QRS Dur : 090 ms QT Int : 312 ms P-R-T Axes : 000 -03 034 degrees QTc Int : 427 ms Atrial fibrillation with rapid ventricular response Abnormal ECG Confirmed by CARMEN OSCAR, MARY ([id number]), industrial editor KATY AMES ([id number]) on 09/05/2019 11:29:51 AM Referred By: Bryan Sanchez Confirmed By:MARY MORALES MD
--- NOTE | 2019-09-01 14:07 | RAD_ITS ---
STUDY: X-RAY CHEST REASON FOR EXAM: Male, 68 years old. Hypotension, dizziness TECHNIQUE: PA and lateral views of the chest. COMPARISON: 07/27/2019 FINDINGS: The lungs are clear and expanded. There is no demonstrated pleural abnormality. Normal size heart. Normal mediastinum and chloe. Normal visualized pulmonary arteries. Normal visualized aortic arch and descending thoracic aorta. Normal visualized thoracic spine. Normal visualized ribs, clavicles, and shoulders. There is no demonstrated abnormality of the visualized soft tissue structures of the upper abdomen. RAD/Chest 1 View (Portable) IMPRESSION: Normal x-ray examination of the chest. Electronically Signed: iRcky Dickerson MD at 14:25 EST Tel , Service support ,
[2019-09-01 14:10] LABS: Absolute Lymphocyte Count 1.61 X10^3/uL (0.83-4.51); Basophil# 0.02 X10^3/uL; Basophil% 0.3 % (0-1); Eosinophil# 0.29 X10^3/uL; Eosinophils% 4.5 % (0-5); Hemoglobin 12.5 g/dL (13.0-16.5); Lymphocyte # 1.61 X10^3/ul (4.0); Lymphocyte % 24.8 % (19-41); Mean Corp Hgb Conc 32.9 g/dL (32-36); Mean Corpuscular Hgb 30.8 pg (27.0-32.0); Mean Corpuscular Volume 93.6 fL (80-94); Mean Platelet Vol. 10.1 fl (6.2-12.0); Monocyte# 0.62 X10^3/uL; Monocyte% 9.5 % (0-10); NRBC Flagged by Analyzer 0 % (0-5); Neutrophil # 3.95 X10^3/uL (2.7-7.7); Neutrophil % 60.7 % (47-70); Platelet Count 169 K/mm3 (150-450); RBC Distribution Width CV 13.4 % (11.6-14.6); RBC Distribution Width SD 46.3 fl (35.1-43.9); Red Blood Count 4.06 M/mm3 (4.6-6.2); White Blood Count 6.5 K/mm3 (4.4-11.0)
[2019-09-01 14:28] LABS: Anion Gap 2 (5-15); BUN 29 mg/dL (7-18); BUN/Creat Ratio 12.7 RATIO (10-20); Chloride 110 mmol/L (98-107); Creatinine, Serum 2.28 mg/dL (0.70-1.30); EST Glomerular Filtration Rate 30 mL/min (>60); Est Glom Filt Rate - Afr Amer 37 mL/min (>60); Estimated Creatinine Clearance 28.19 ml/min; Glucose 130 mg/dL (74-106); Potassium 5.4 mmol/L (3.5-5.1); Sodium Level 140 mmol/L (136-145)
[2019-09-01] MEDS: dilTIAZem 25 MG/5 ML Vial 10 MG IV BOLUS (14:50)
--- NOTE | 2019-09-01 15:28 | ED.VIS.GEN ---
History of Present Illness Chief Complaint: Hypotension Informant: Patient Onset: Today Context: Gradual Onset Quality: lightheadedness Current Severity: Mild Maximum Severity: Moderate Associated Symptoms: malaise. concerned that he looked like he was sob, although pt denies. Narrative: Denies any chest pain or shortness of breath, or palpitations. Feeling lightheaded that is worse with standing and better with sitting, no near syncope or syncopal episodes. Chronic swelling in his legs that is unchanged. No recent illnesses or injury. He checked his blood pressure at home because he was feeling lightheaded and weak and it was in the 60s with his heart rate in the 120s. - Past Medical History (1) Atherosclerosis of coronary artery of [place] heart without angina pectoris Status: Chronic Comment: Totally occluded right coronary artery with left to right collaterals, Mild left anterior descending artery disease, Mild left circumflex disease per heart cath 2004 (2) Claudication Status: Chronic (3) Hyperlipidemia Status: Chronic (4) Lacunar infarct, acute Status: Chronic Comment: October 2015 Left temporal area (5) Peripheral vascular occlusive disease Status: Chronic Comment: Right iliac stent 09/2018 Past Medical History - Allergies and Home Meds Allergies/Adverse Reactions: Allergies No Known Allergies Allergy (Verified 06/24/19 09:35) Primary Care Physician: Renzo Davidson DO [Primary Care Provider] - Doctors: Abdelrahman Surgical History: - - PTCA of the left subclavaian artery by Dr. Nelson on 01/24 Lives: Spouse/ Significant Other Smoking Status: Never smoker Drugs: None - Family History Paternal Family History: Family History (Last Reviewed 06/24/19 @ 09:41 by Amber Blue) Brother Cancer Family History: Reports: Heart Disease, - - His father in his mid 70s with dementia Maternal Family History: Family History (Last Reviewed 06/24/19 @ 09:41 by Amber Blue) Brother Cancer Family History: Reports: Pulmonary Disease Sibling Family History: Family History (Last Reviewed 06/24/19 @ 09:41 by Amber Blue) Brother Cancer Family History: Reports: - - He has a brother who with lung cancer. A sister with diabetes mellitus and rheumatoid arthritis. He has an older brother with dementia. Review of Systems General: Reports: Malaise - And lightheadedness intermittently today. Denies: Chills, Fever, Sweats Eyes: Denies: Visual changes - bilaterally, Diplopia ENT: Denies: Rhinorrhea, Sore throat Cardiovascular: Denies: Chest pain, Palpitations, Heart racing Respiratory: Reports: Dyspnea on exertion - Chronic, unchanged. Denies: Dyspnea, Cough Gastrointestinal: Denies: Abdominal pain, Nausea, Vomiting, Diarrhea, Melena, Hematochezia Genitourinary: Denies: Dysuria, Hematuria, Frequency Musculoskeletal: Reports: Back pain - Mild low back, nonlateralizing, worse with movement, Swelling - Bilateral lower extremity, chronic, unchanged. Denies: Neck pain, Extremity Pain Skin: Denies: Rash, Wounds Neurological: Denies: Headache, Weakness, Numbness Physical Exam Vital Signs/Narrative: Vital Signs Temp Pulse Resp BP Pulse Ox 09/01/19 15:00 81 18 97/48 L 94 09/01/19 14:05 104 H 14 119/72 94 09/01/19 13:25 98.1 F 120 H 18 96/47 L 97 Inital Vital Signs reviewed: Yes General: Well nourished, Well developed, No Acute Distress Head: Normocephalic, Atraumatic Eyes: Perrl, EOMI ENT: Moist mucous membranes, No rhinorrhea Neck: Supple, Nontender Cardiovascular: No murmurs, Irregular, Tachycardia Respiratory: No distress, CTA bilaterally, Chest nontender Abdomen: Soft, Nontender, Nondistended, Normal bowel sounds. Negative for: Pulsatile mass Back: Nontender, Normal Inspection Extremities: Nontender, Edema - Trace bilateral lower extremity mid shins, symmetric. Negative for: Calf Tenderness Skin: Normal color, No rash, No Trauma Neurological: Alert, Oriented x3, Cranial nerves II-XII grossly intact, Normal Strength, Normal Sensation Psychological: Normal affect, Normal Mood Diagnostic/Tx/Re-eval Impressions Chest X-Ray 09/01/19 14:07 IMPRESSION: Normal x-ray examination of the chest. Electronically Signed: Ricky Dickerson MD at 14:25 EST Tel , Service support , 09/01/19 14:07 Chest 1 View (Portable) [RAD] Stat Laboratory Results 09/01/19 09/01/19 14:00 14:00 WBC 6.5 RBC 4.06 L Hgb 12.5 L Hct 38.0 L MCV 93.6 MCH 30.8 MCHC 32.9 RDW Std Deviation 46.3 H RDW Coeff of Estela 13.4 Plt Count 169 MPV 10.1 Immature Gran % (Auto) 0.200 Neut % (Auto) 60.7 Lymph % (Auto) 24.8 Person % (Auto) 9.5 Eos % (Auto) 4.5 Baso % (Auto) 0.3 Absolute Neuts (auto) 4.0 Absolute Lymphs (auto) 1.61 Nucleated RBC % 0 Sodium 140 Potassium 5.4 H Chloride 110 H Carbon Dioxide 28.0 Anion Gap 2 L BUN 29 H Creatinine 2.28 H Estim Creat Clear Calc 28.19 Est GFR (MDRD) Af Amer 37 L Est GFR (MDRD) Non-Af 30 L BUN/Creatinine Ratio 12.7 Glucose 130 H Calcium 9.0 Troponin I < 0.015 - Rhythm Strip Rhythm Strip: A-fib Rate: 120 Ectopy: None - EKG Initial EKG Interpretation: No Acute Injury Pattern, Atrial Fibrillation Prior: Changed - Medical Decision Making EKG confirms atrial fibrillation, given his irregular pulse is consistent with that. No acute injury pattern. He has some mild hyperkalemia, but there are no EKG changes of it, it is mild at 5.4. Probably related to his chronic renal failure which is at the high end of what he usually is, he states he has had high potassiums in the past. We will give him Kayexalate 15 g at this time. Cardiac enzymes normal, chest x-ray unremarkable. After Cardizem 1 dose of 10 mg IV, his heart rate is down below 100 and his blood pressure is improved. He feels a little better. I think he is stable for PCU/telemetry and does not require ICU at this time. Discussed with Drs. Cook and Daniel, will admit to PCU. ED Disposition - Plan for ED Patient: Disposition: Acute Care Hospital [facility] Diagnosis: Atrial fibrillation, new onset, Transient hypotension, Chronic renal failure, Hyperkalemia Referrals: Renzo Davidson DO [Primary Care Provider] -
--- NOTE | 2019-09-01 15:51 | PCM.HP.STD ---
Problem List (1) Atrial fibrillation, new onset Status: Acute (2) Transient hypotension Status: Acute (3) Chronic renal failure Status: Chronic (4) Hyperkalemia Status: Acute (5) Dyspnea on exertion Status: Acute (6) Claudication Status: Chronic (7) Peripheral vascular occlusive disease Status: Chronic Comment: Right iliac stent 09/2018 (8) Hyperlipidemia Status: Chronic (9) Atherosclerosis of coronary artery of [place] heart without angina pectoris Status: Chronic Comment: Totally occluded right coronary artery with left to right collaterals, Mild left anterior descending artery disease, Mild left circumflex disease per heart cath 2004 (10) Lacunar infarct, acute Status: Chronic Comment: October 2015 Left temporal area History of Present Illness Date of Admission: 09/01/19 Chief Complaint: Dizziness and hypotension with palpitation The patient is a 68 year old M with history of coronary artery disease, peripheral arterial disease status post right iliac stent and left arm stent, lacunar infarct in October 2015 came to ER with feeling of dizziness lightheadedness and hypotension measured at home. This happened today in the morning and patient noticed his heart rate 138 and blood pressure 66/45 and was feeling dizzy and palpitation. At noon his blood pressure was still low, systolic in 60s and heart rate in 130s therefore he decided to come to the ER. At noontime patient also felt transient weakness in left arm which lasted for about 10 seconds and recovered completely. As per the , sometimes he also has slurry speech when his blood sugar gets low probably neuro hypoglycemic symptoms. In ED, heart rate was found 120 with A. fib with RVR on EKG and blood pressure 96/47. Patient at 10 mg IV Cardizem bolus and heart rate controlled and 71 blood pressure 114/50. [] Past Medical History Past Medical History (Chronic Problems): Chronic Problems (Last Reviewed 06/24/19 @ 09:39 by Amber Blue) Chronic renal failure (Chronic) Claudication (Chronic) Peripheral vascular occlusive disease (Chronic) Right iliac stent 09/2018 Hyperlipidemia (Chronic) Atherosclerosis of coronary artery of [place] heart without angina pectoris (Chronic) Totally occluded right coronary artery with left to right collaterals, Mild left anterior descending artery disease, Mild left circumflex disease per heart cath 2004 Lacunar infarct, acute (Chronic) October 2015 Left temporal area Medical History: Medical History (Last Reviewed 06/24/19 @ 09:39 by Amber Blue) Claudication (Chronic) I73.9 Peripheral vascular occlusive disease (Chronic) I73.9 Right iliac stent 09/2018 Hyperlipidemia (Chronic) E78.5 Atherosclerosis of coronary artery of [place] heart without angina pectoris (Chronic) I25.10 Totally occluded right coronary artery with left to right collaterals, Mild left anterior descending artery disease, Mild left circumflex disease per heart cath 2004 Lacunar infarct, acute (Chronic) I63.23 October 2015 Left temporal area Anxiety and depression F41.9, F32.9 CKD (chronic kidney disease) N18.9 DDD (degenerative disc disease) Diabetic neuropathy E11.40 Marijuana use F12.90 Narcolepsy G47.419 Obstructive sleep apnea G47.33 Osteoarthritis M19.90 Type 2 diabetes mellitus E11.9 Stenosis of left subclavian artery I77.1 Allergies No Known Allergies Allergy (Verified 06/24/19 09:35) Home Medications: Ambulatory Orders Medication Instructions Recorded Pregabalin [Lyrica] 150 mg PO BID 11/06/15 Lisinopril [Zestril] 10 mg PO DAILY #30 tab 11/08/15 Clopidogrel Bisulfate [Plavix] 75 mg PO DAILY 02/27/16 amlodipine 5 mg tablet 5 mg PO DAILY 90 Days #90 tab 12/24/18 atorvastatin 20 mg tablet 20 mg PO QHS #90 tab 12/24/18 glipizide 5 mg tablet 5 mg PO BID 90 Days #180 tab 12/24/18 linagliptin 5 mg tablet 5 mg PO QHS 90 Days #90 tab 12/24/18 tamsulosin 0.4 mg capsule 0.4 mg PO DAILY 90 Days #90 cap 12/24/18 MDD prostate aspirin 325 mg tablet 325 mg PO DAILY 06/24/19 cholecalciferol (vitamin D3) 2,000 2,000 unit PO DAILY 06/24/19 unit tablet hydrocodone 5 mg-acetaminophen 325 1 tab PO DAILY PRN tab 06/24/19 mg tablet Surgical History: Surgical History (Last Reviewed 06/24/19 @ 09:39 by Amber Blue) History of angioplasty of peripheral vessel Onset Date: 09/2018 Z98.62 Left subclavian stent, Right iliac stent 10/02 History of left heart catheterization Onset Date: 11/13/04 Z98.890 CONCLUSION Normal borderline left ventricular systolic function. Totally occluded right coronary artery with left to right collaterals Mild left anterior descending artery disease. Mild left circumflex disease. Surgical History: - - PTCA of the left subclavaian artery by Dr. Nelson on 01/24 Psychiatric History: No pertinent psych hx Lives: Spouse/ Significant Other Smoking Status: Never smoker Tobacco Use: Non-smoker Drugs: None - *Family History Paternal Family History: Family History (Last Reviewed 06/24/19 @ 09:41 by Amber Blue) Brother Cancer History Items: Heart Disease, - - His father in his mid 70s with dementia Maternal Family History: Family History (Last Reviewed 06/24/19 @ 09:41 by Amber Blue) Brother Cancer History Items: Pulmonary Disease Sibling Family History: Family History (Last Reviewed 06/24/19 @ 09:41 by Amber Blue) Brother Cancer History Items: - - He has a brother who with lung cancer. A sister with diabetes mellitus and rheumatoid arthritis. He has an older brother with dementia. Review of Systems Constitutional: Denies: Chills, Fever, Weight Change HEENT: Denies: Head Aches, Sinus Congestion, Sinus Drainage Cardiovascular: Reports: Palpitations. Denies: Chest Pain Respiratory: Denies: Cough, Shortness of breath at rest, Sputum production Gastrointestinal: Denies: Abdominal Pain, Nausea, Vomiting Genitourinary: Denies: Dysuria, Frequency, Hematuria Musculoskeletal: Reports: Back Pain, Joint Pain, Joint stiffness. Denies: Joint Tenderness Skin: Denies: Rash, Wounds Neurological: Reports: Slurred speech - Sometimes when his blood sugar is low. Denies: Focal weakness, Numbness, Tingling Psychiatric: Denies: Anxiety, Depression, Homicidal Ideations, Suicidal Ideations Hematologic/ Lymphatic: Denies: Easy Bruising, Easy Bleeding VTE Information - Inpt Only VTE Present on Admission: No VTE Mechan Device Prophylaxis: None VTE Pharm Prophylaxis ordered?: Yes - Physical Exam Vitals/I&O's: Vital Signs Temp Pulse Resp BP Pulse Ox 98.1 F 81 18 97/48 L 94 09/01/19 13:25 09/01/19 15:00 09/01/19 15:00 09/01/19 15:00 09/01/19 15:00 Oxygen Delivery Method Room Air Weight: 206 lb 2.115 oz Body Mass Index (BMI) 32.3 Finger Stick Blood Glucose 82 Intake and Output for Last 24 Hours 08/30/19 08/31/19 09/01/19 23:59 23:59 23:59 Intake Total 500 / 500 Balance 500 / 500 General: Alert, Oriented x3, Cooperative HEENT: Atraumatic, PERRLA, EOMI, Normocephalic Neck: Supple, No JVD, Negative Carotid Bruits Lungs: Clear to auscultation, Normal air movement Cardiovascular: Regular rate, No murmurs, - - Diminished radial and brachial artery in left upper extremity. Left arm stent exact site unclear. Left iliac stent Abdomen: Bowel Sounds Present, Soft, Non Tender, Non-Distended Extremities: Capillary Refill Less than 3 Seconds, Edema Skin: No rashes, No breakdown Musculoskeletal: No Tenderness to Palpation of Joints or Extremities, Arthritic Changes Neurological: Cranial nerves II-XII grossly intact, Deep Tendon Reflexes 2+/4 and Symmetrical, Neuro grossly intact, Motor Exam 5/5 strength throughout, - - NIH stroke scale 0 Psych/Mental Status: Normal Affect, Appropriate Laboratory Results 09/01/19 14:00: WBC 6.5, RBC 4.06 L, Hgb 12.5 L, Hct 38.0 L, MCV 93.6, MCH 30.8, MCHC 32.9, RDW Std Deviation 46.3 H, RDW Coeff of Estela 13.4, Plt Count 169, MPV 10.1, Immature Gran % (Auto) 0.200, Neut % (Auto) 60.7, Lymph % (Auto) 24.8, [place] % (Auto) 9.5, Eos % (Auto) 4.5, Baso % (Auto) 0.3, Absolute Neuts (auto) 4.0, Absolute Lymphs (auto) 1.61, Nucleated RBC % 0 09/01/19 14:00: Sodium 140, Potassium 5.4 H, Chloride 110 H, Carbon Dioxide 28.0, Anion Gap 2 L, BUN 29 H, Creatinine 2.28 H, Estim Creat Clear Calc 28.19, Est GFR (MDRD) Af Amer 37 L, Est GFR (MDRD) Non-Af 30 L, BUN/Creatinine Ratio 12.7, Glucose 130 H, Calcium 9.0, Troponin I < 0.015 Assessment/Plan All Active Problems (Last Reviewed 06/24/19 @ 09:39 by Amber Blue) Atrial fibrillation, new onset (Acute) Transient hypotension (Acute) Hyperkalemia (Acute) Dyspnea on exertion (Acute) Chest pain (Resolved) Expressive aphasia (Resolved) The patient is a 68 year old M with history of coronary artery disease, peripheral vascular disease status post right iliac stent and left arm stent, lacunar infarct in October 2015 came to ER with feeling of dizziness lightheadedness and hypotension measured at home. This happened today in the morning and patient noticed his heart rate 138 and blood pressure 66/45 and was feeling dizzy and palpitation. In ED, heart rate was found 120 with A. fib with RVR on EKG and blood pressure 96/47. Patient at 10 mg IV Cardizem bolus and heart rate controlled and 71 blood pressure 114/50. [] 1. New onset A. fib with RVR with hypotension: Patient is being admitted in PCU. Direct Service Provider was consulted from ER physician. Patient heart rate is controlled. Started on metoprolol 12.5 mg and can titrate up as blood pressure allows. Most recent blood pressure is 13/61, heart rate 74/min. Started on Eliquis 5 mg twice daily. Patient had recent 2D echo on January 20, 2019. Interpretation Summary Normal LV size. Left ventricular systolic function is normal. The estimated ejection fraction is 65 %. Transmitral and pulmonary venous doppler flow suggestive of impaired relaxation of left ventricle Mild (1+) tricuspid valve insufficiency. Pulmonary artery systolic pressure is 30 mmHg. 2. Coronary artery disease, atherosclerosis of coronary artery, peripheral arterial disease, right iliac stent and left arm stent: Patient has totally occluded RCA with [id number] collaterals As as per cath of 2005. Patient saw Dr. Nelson recently. He had aortoiliac ultrasound which showed no significant arterial stenosis or aneurysm. Patient is on Plavix, atorvastatin, lisinopril, and amlodipine which are continued. 3. Diabetes mellitus type 2: Patient is on linagliptin: As per the , sometimes he also has slurry speech when his blood sugar gets low probably neuro hypoglycemic symptoms. Accu-Cheks before meals and at bedtime and cover with Humalog sliding scale. Hold linagliptin. 4. CKD stage III: Patient creatinine is on baseline. BUN about 30. Today BUN/creatinine 29/2.28. Creatinine is around 2.3-2.5 2017 and 2018. 5. History of lacunar infarct and TIA: In view of transient weakness of left arm probably due to vascular event along with possible subclavian/left arm stenosis status post stent during hypotension at home, MRI brain is ordered. NIH stroke scale is 0. Currently there is no neurological deficit. DVT prophylaxis: On Eliquis 5 mg twice daily. Laboratory Results 09/01/19 14:00: WBC 6.5, RBC 4.06 L, Hgb 12.5 L, Hct 38.0 L, MCV 93.6, MCH 30.8, MCHC 32.9, RDW Std Deviation 46.3 H, RDW Coeff of Estela 13.4, Plt Count 169, MPV 10.1, Immature Gran % (Auto) 0.200, Neut % (Auto) 60.7, Lymph % (Auto) 24.8, Hard[place] % (Auto) 9.5, Eos % (Auto) 4.5, Baso % (Auto) 0.3, Absolute Neuts (auto) 4.0, Absolute Lymphs (auto) 1.61, Nucleated RBC % 0 09/01/19 14:00: Sodium 140, Potassium 5.4 H, Chloride 110 H, Carbon Dioxide 28.0, Anion Gap 2 L, BUN 29 H, Creatinine 2.28 H, Estim Creat Clear Calc 28.19, Est GFR (MDRD) Af Amer 37 L, Est GFR (MDRD) Non-Af 30 L, BUN/Creatinine Ratio 12.7, Glucose 130 H, Calcium 9.0, Troponin I < 0.015 09/01/19 14:00: Magnesium Pending Clinical Impression(s) from Imaging Studies Chest X-Ray 09/01/19 14:07 IMPRESSION: Normal x-ray examination of the chest. Electronically Signed: Ricky Dickerson MD at 14:25 EST Tel , Service support , 01/20/19 Code Visit OBSV E&M: [id number] Initial observation care L3
[2019-09-01] MEDS: Sodium Polystyrene Sulfonate 15 GM/60 ML UDC PO (16:13)
--- NOTE | 2019-09-01 16:25 | MRI_ITS ---
STUDY: MRI BRAIN WITHOUT CONTRAST REASON FOR EXAM: Male, 68 years old. Left arm weakness. TECHNIQUE: Standardized multiplanar fat and water weighted pulse sequences were obtained. COMPARISON: None. FINDINGS: Small chronic infarct right cerebellar hemisphere inferiorly. Moderate chronic microangiopathic change in the white matter. No acute infarct, hemorrhage, or mass. No midline shift or hydrocephalus. Major flow voids preserved. Calvarium unremarkable. Extracranial soft tissues unremarkable. Partial opacification left mastoid air cells. Mild mucosal thickening bilateral maxillary sinuses and ethmoid air cells. MRI/Brain without Contrast IMPRESSION: No acute findings. Small chronic infarct right cerebellar hemisphere inferiorly. Moderate chronic microangiopathic change in the white matter. Electronically Signed: Kaiden Lanier, at 20:06 EST Tel , Service support ,
[2019-09-01 16:40] LABS: Magnesium 2.4 mg/dL (1.6-2.6)
[2019-09-01] MEDS: APIXABAN 5 MG TABLET PO ×2 (17:26→21:15)
[2019-09-01] MEDS: Metoprolol Tartrate 25 MG Tablet 12.5 MG PO ×2 (17:26→21:15)
--- NOTE | 2019-09-01 17:58 | EKG12_ITS ---
Test Reason : RHYTHM CHANGE Blood Pressure : / mmHG Vent. Rate : 069 BPM Atrial Rate : 069 BPM P-R Int : 160 ms QRS Dur : 096 ms QT Int : 384 ms P-R-T Axes : 043 -19 040 degrees QTc Int : 411 ms Sinus rhythm with occasional Premature ventricular complexes Otherwise normal ECG No previous ECGs available Confirmed by NASH OSCAR, REINIER ([id number]), technical editor TAMMI GRIMM ([id number] on 09/09/2019 10:38:54 AM Referred By: Bryan Sanchez Confirmed By:STAN CAO MD
[2019-09-01 18:26] LABS: Bedside Glucose 84 mg/dL (70-110)
[2019-09-01] MEDS: 0.9% Normal Saline 1,000 ML 100 ML IV (19:50)
[2019-09-01] MEDS: 0.9% Saline Lock 10 ML Syringe IV (19:51)
[2019-09-01 21:55] LABS: Bedside Glucose 107 mg/dL (70-110)
[2019-09-02] MEDS: Pregabalin 75 MG Capsule 150 MG PO ×2 (00:46→08:47)
[2019-09-02 03:00] VITALS: BP 115/59; PULSE 61; PULSE 75; RESP 16; TEMP 36.4; O2SAT 94
[2019-09-02] MEDS: 0.9% Normal Saline 1,000 ML 100 ML IV (05:31)
[2019-09-02 06:06] LABS: Absolute Lymphocyte Count 1.89 X10^3/uL (0.83-4.51); Absolute Neutrophil Count 3.3 X10^3/uL (2.0-7.7); Basophil# 0.02 X10^3/uL; Basophil% 0.3 % (0-1); Eosinophil# 0.39 X10^3/uL; Eosinophils% 6.3 % (0-5); Hematocrit 34.8 % (40-54); Hemoglobin 11.2 g/dL (13.0-16.5); Lymphocyte # 1.89 X10^3/ul (4.0); Lymphocyte % 30.4 % (19-41); Mean Corp Hgb Conc 32.2 g/dL (32-36); Mean Corpuscular Hgb 30.2 pg (27.0-32.0); Mean Corpuscular Volume 93.8 fL (80-94); Mean Platelet Vol. 10.6 fl (6.2-12.0); Monocyte# 0.61 X10^3/uL; Monocyte% 9.8 % (0-10); NRBC Flagged by Analyzer 0 % (0-5); Neutrophil # 3.29 X10^3/uL (2.7-7.7); Neutrophil % 52.9 % (47-70); Platelet Count 161 K/mm3 (150-450); RBC Distribution Width CV 13.6 % (11.6-14.6); RBC Distribution Width SD 46.5 fl (35.1-43.9); Red Blood Count 3.71 M/mm3 (4.6-6.2); White Blood Count 6.2 K/mm3 (4.4-11.0)
[2019-09-02 06:34] LABS: Anion Gap 4 (5-15); BUN 28 mg/dL (7-18); BUN/Creat Ratio 14.1 RATIO (10-20); Calcium,Total 7.8 mg/dL (8.5-10.1); Chloride 111 mmol/L (98-107); Cholesterol 152 mg/dL (200); Creatinine, Serum 1.99 mg/dL (0.70-1.30); EST Glomerular Filtration Rate 35 mL/min (>60); Est Glom Filt Rate - Afr Amer 43 mL/min (>60); Estimated Creatinine Clearance 32.29 ml/min; Glucose 123 mg/dL (74-106); High Density Lipoprotein 31 mg/dL; Potassium 4.5 mmol/L (3.5-5.1); Sodium Level 141 mmol/L (136-145); Thyroid Stim Hormone (TSH) 1.56 uIU/mL (0.358-3.74); Triglycerides 491 mg/dL
[2019-09-02 06:56] LABS: Bedside Glucose 97 mg/dL (70-110)
[2019-09-02 07:15] VITALS: O2SAT 94
[2019-09-02 08:00] VITALS: PULSE 68
[2019-09-02 08:31] VITALS: BP 152/72; PULSE 77; RESP 16; TEMP 36.6; O2SAT 100
[2019-09-02 08:38] VITALS: BP 152/72; PULSE 77
[2019-09-02] MEDS: Metoprolol Tartrate 25 MG Tablet 12.5 MG PO (08:38)
[2019-09-02] MEDS: Aspirin 81 MG TAB.CHEW PO (08:38)
[2019-09-02] MEDS: Tamsulosin HCl 0.4 MG Capsule PO (08:38)
[2019-09-02] MEDS: APIXABAN 5 MG TABLET PO (08:39)
[2019-09-02] MEDS: Clopidogrel Bisulfate 75 MG Tablet PO (08:39)
--- NOTE | 2019-09-02 10:54 | PCM.PROGNOTE ---
Patient Problems: Active and Suspected Problems (Last Reviewed 06/24/19 @ 09:39 by Amber Blue) Atrial fibrillation, new onset (Acute) Transient hypotension (Acute) Hyperkalemia (Acute) Subjective: Patient seen and examined. Converted to sinus rhythm. Denies chest pain, palpitations, shortness of breath. - Physical Exam Vitals/I&O's: Vital Signs Temp Pulse Resp BP Pulse Ox 97.9 F 77 16 152/72 H 100 09/02/19 08:31 09/02/19 08:38 09/02/19 08:31 09/02/19 08:38 09/02/19 08:31 Oxygen Delivery Method Room Air Weight: 205 lb 8 oz Body Mass Index (BMI) 32.1 Finger Stick Blood Glucose 82 Intake and Output for Last 24 Hours 08/31/19 09/01/19 09/02/19 23:59 23:59 23:59 Intake Total 940 / 940 1088.33 / 1088.33 Balance 940 / 940 1088.33 / 1088.33 General: Alert, Oriented x3, Cooperative HEENT: Atraumatic, PERRLA, EOMI, Normocephalic Neck: Supple, No JVD, Negative Carotid Bruits Lungs: Clear to auscultation, Normal air movement Cardiovascular: Regular rate, Regular Rhythm, Normal S1, Normal S2, No murmurs Abdomen: Bowel Sounds Present, Soft, Non Tender, Non-Distended Extremities: No clubbing, No cyanosis, No edema, Capillary Refill Less than 3 Seconds Skin: No rashes, No breakdown Musculoskeletal: No Tenderness to Palpation of Joints or Extremities Neurological: Cranial nerves II-XII grossly intact, Neuro grossly intact Psych/Mental Status: Normal Affect, Appropriate Laboratory Results 09/01/19 14:00: WBC 6.5, RBC 4.06 L, Hgb 12.5 L, Hct 38.0 L, MCV 93.6, MCH 30.8, MCHC 32.9, RDW Std Deviation 46.3 H, RDW Coeff of Estela 13.4, Plt Count 169, MPV 10.1, Immature Gran % (Auto) 0.200, Neut % (Auto) 60.7, Lymph % (Auto) 24.8, [place] % (Auto) 9.5, Eos % (Auto) 4.5, Baso % (Auto) 0.3, Absolute Neuts (auto) 4.0, Absolute Lymphs (auto) 1.61, Nucleated RBC % 0 09/01/19 14:00: Sodium 140, Potassium 5.4 H, Chloride 110 H, Carbon Dioxide 28.0, Anion Gap 2 L, BUN 29 H, Creatinine 2.28 H, Estim Creat Clear Calc 28.19, Est GFR (MDRD) Af Amer 37 L, Est GFR (MDRD) Non-Af 30 L, BUN/Creatinine Ratio 12.7, Glucose 130 H, Calcium 9.0, Troponin I < 0.015 09/01/19 14:00: Magnesium 2.4 09/01/19 16:43: Troponin I < 0.015 09/01/19 17:36: POC Glucose 84 09/01/19 20:10: Troponin I < 0.015 09/01/19 21:13: POC Glucose 107 09/02/19 05:14: WBC 6.2, RBC 3.71 L, Hgb 11.2 L, Hct 34.8 L, MCV 93.8, MCH 30.2, MCHC 32.2, RDW Std Deviation 46.5 H, RDW Coeff of Estela 13.6, Plt Count 161, MPV 10.6, Immature Gran % (Auto) 0.300, Neut % (Auto) 52.9, Lymph % (Auto) 30.4, [place] % (Auto) 9.8, Eos % (Auto) 6.3 H, Baso % (Auto) 0.3, Absolute Neuts (auto) 3.3, Absolute Lymphs (auto) 1.89, Nucleated RBC % 0 09/02/19 05:14: Sodium 141, Potassium 4.5, Chloride 111 H, Carbon Dioxide 26.0, Anion Gap 4 L, BUN 28 H, Creatinine 1.99 H, Estim Creat Clear Calc 32.29, Est GFR (MDRD) Af Amer 43 L, Est GFR (MDRD) Non-Af 35 L, BUN/Creatinine Ratio 14.1, Glucose 123 H, Calcium 7.8 L, Triglycerides 491 H, Cholesterol 152, LDL Cholesterol TNP, VLDL Cholesterol TNP, HDL Cholesterol 31 L, TSH 1.56 09/02/19 06:44: POC Glucose 97 Current Medications Acetaminophen (Tylenol) 650 mg PO Q6H PRN PRN PRN Reason: Pain Score 1-3/Temp > 100.7 F Al Hydroxide/Mg Hydroxide (Mylanta Ii) 30 ml PO Q6H PRN PRN PRN Reason: Gastric Burning Albuterol Sulfate (Ventolin Aerosols) 2.5 mg INHALATION Q2H PRN PRN PRN Reason: SOB/Wheezing Apixaban (Eliquis) 5 mg PO BID [facility] Last Admin: 09/02/19 08:39 Dose: 5 mg Documented by: Aspirin (Aspirin, Baby) 81 mg PO DAILY@0800 [facility] Last Admin: 09/02/19 08:38 Dose: 81 mg Documented by: Atorvastatin Calcium (Lipitor) 20 mg PO QHS [facility] Cholecalciferol (Vitamin D) 2,000 unit PO DAILY [facility] Last Admin: 09/02/19 08:38 Dose: 2,000 unit Documented by: Clopidogrel Bisulfate (Plavix) 75 mg PO DAILY [facility] Last Admin: 09/02/19 08:39 Dose: 75 mg Documented by: Docusate Sodium (Colace) 200 mg PO BID PRN PRN PRN Reason: Constipation Glucagon () 1 mg IM .X1 PRN PRN Reason: Hypoglycemia Guaifenesin (Robitussin) 20 ml PO Q4H PRN PRN PRN Reason: COUGH Sodium Chloride () 1,000 mls @ 100 mls/hr IV .Q10H [facility] Last Admin: 09/02/19 05:31 Dose: 100 mls/hr Documented by: Dextrose (Dextrose 10%-Water) 250 mls @ 999 mls/hr IV .Q16M PRN; Protocol PRN Reason: HYPOGLYCEMIA Insulin Human Lispro (Humalog Kwikpen (Bkc)) 0 unit SC ACHS [facility]; Protocol Last Admin: 09/02/19 06:57 Dose: Not Given Documented by: Metoprolol Tartrate (Lopressor (Beta Carol)) 12.5 mg PO BID [facility] Last Admin: 09/02/19 08:38 Dose: 12.5 mg Documented by: Morphine Sulfate () 2 mg IV Q3H PRN PRN PRN Reason: Pain Score 6-10/10 Ondansetron HCl (Zofran) 4 mg IV Q8H PRN PRN PRN Reason: NAUSEA/VOMITING Oxycodone HCl (Oxyir) 5 mg PO Q4H PRN PRN PRN Reason: Pain Score 4-5/10 Polyethylene Glycol (Miralax) 17 gm PO DAILY [facility] Last Admin: 09/02/19 08:39 Dose: Not Given Documented by: Pregabalin (Lyrica) 150 mg PO BID [facility] Last Admin: 09/02/19 08:47 Dose: 150 mg Documented by: Prochlorperazine Edisylate (Compazine Iv) 5 mg IV Q4H PRN PRN PRN Reason: Breakthrough Nausea/Vomiting Senna/Docusate Sodium (Senokot-S, Malena-Colace) 2 tablet PO BID PRN PRN PRN Reason: Constipation Sodium Chloride () 10 - 40 ml IV UD PRN PRN Reason: SALINE FLUSH Last Admin: 09/01/19 19:51 Dose: 10 ml Documented by: Tamsulosin HCl (Flomax) 0.4 mg PO DAILY [facility] Last Admin: 09/02/19 08:38 Dose: 0.4 mg Documented by: Medical Necessity - Tobacco Use Smoking Status: Former smoker Tobacco Use: Non-smoker Assessment/Plan All Active Problems (Last Reviewed 06/24/19 @ 09:39 by Amber Blue) Atrial fibrillation, new onset (Acute) Transient hypotension (Acute) Hyperkalemia (Acute) Dyspnea on exertion (Acute) Chest pain (Resolved) Expressive aphasia (Resolved) 1. New onset atrial fibrillation with hypotension-converted to sinus rhythm. Continue metoprolol, Eliquis. Will reduce home aspirin regimen to 81 mg daily and discontinue home Plavix regimen. Cardiology consult pending. Patient had echocardiogram January 2019 which demonstrated EF 65%, mild tricuspid valve insufficiency. Further disposition pending cardiology evaluation. 2. Left upper extremity weakness, resolved-history of CVA. MRI of brain demonstrated small chronic infarct right cerebellar hemisphere, no acute findings. 3. CAD/PVD-status post right iliac stent and left subclavian stent. Patient had prior heart cath in 2004 which demonstrated totally occluded right coronary artery with [id number] collaterals, mild left anterior descending artery disease, mild left circumflex disease. Continue medical management with aspirin, statin. 4. Type 2 diabetes [id number] ACHS with sliding scale insulin. On linagliptin and glipizide at home. 5. Chronic kidney disease stage III-at baseline. 6. BPH-continue Flomax regimen. DVT prophylaxis- eliquis This patient was seen by SUSANNA Cobb under the supervision of Dr. Cherry.
--- NOTE | 2019-09-02 11:19 | PCM.DC ---
- Discharge Diagnoses Current Active Problems: Current Active and Chronic Problems (Last Reviewed 06/24/19 @ 09:39 by Amber Blue) Atrial fibrillation, new onset (Acute) Transient hypotension (Acute) Chronic renal failure (Chronic) Hyperkalemia (Acute) You will use the following diet at home:: Cardiac Discharge Activity: Return to Normal Activity Call your doctor if you observe: Shortness of breath, Dizziness, Fainting spells, Chest pain Allergies/Adverse Reactions: Allergies No Known Allergies Allergy (Verified 06/24/19 09:35) Medications to take at Discharge Pregabalin [Lyrica] 150 mg PO BID 11/06/15 Lisinopril [Zestril] 10 mg PO DAILY #30 tab 11/08/15 amlodipine 5 mg tablet 5 mg PO DAILY 90 Days #90 tab 12/24/18 atorvastatin 20 mg tablet 20 mg PO QHS #90 tab 12/24/18 glipizide 5 mg tablet 5 mg PO BID 90 Days #180 tab 12/24/18 linagliptin 5 mg tablet 5 mg PO QHS 90 Days #90 tab 12/24/18 tamsulosin 0.4 mg capsule 0.4 mg PO DAILY 90 Days #90 cap MDD prostate 12/24/18 cholecalciferol (vitamin D3) 2,000 unit tablet 2,000 unit PO DAILY 06/24/19 hydrocodone 5 mg-acetaminophen 325 mg tablet 1 tab PO DAILY PRN tab 06/24/19 Apixaban [Eliquis] 5 mg PO BID #60 tab 09/02/19 Aspirin [Aspirin, Baby] 81 mg PO DAILY@0800 #30 tab.chew 09/02/19 Metoprolol Tartrate [Lopressor (beta nahomy)] 12.5 mg PO BID #60 tab 09/02/19 The following prescriptions were given: Aspirin [Aspirin, Baby] 81 mg PO DAILY@0800 #30 tab.chew Transmission Status: [id number] Apixaban [Eliquis] 5 mg PO BID #60 tab Transmission Status: [id number] Metoprolol Tartrate [Lopressor (beta nahomy)] 12.5 mg PO BID #60 tab Transmission Status: [id number] Primary Care Physician: Renzo Davidson DO [Primary Care Provider] - Please follow up with your Primary Care Physician in: 1 Week Test Results: Test results from this visit will be discussed in further detail at your follow-up appointment, if applicable. Please Follow Up With: Zhang Quick MD When: 1-2 Weeks, may see [employer] Proposed Discharge Date: 09/02/19
--- NOTE | 2019-09-02 11:32 | CASEMGMT ---
RN CM [employer] CM to room to meet with patient for initial transition planning/care coordination assessment. RN KIMBERLY introduced self and role at [facility]. Pt voices understanding and consents to assessment at this time. Pt resting in bed in no distress at this time. @ bedside. Pt is A/O at this time and answers all questions appropriately. Care providers, pharmacy, and demographics verified at this time. PCP: Stuart Specialists: Abdelrahman Nelson (cardiology), Wayne (nephrology) Preferred Pharmacy: [facility] Insurance: SERGEI Victor Prescription Benefit: Yes Living Will/HPOA: Has HCPOA, who is his , Patricia, but does not have LW. Is interested in talking with SW to complete LW paperwork. CHUN Negron, made aware. LNOK: Living Arrangements: Lives with his in single-story home w/5 steps to enter. Denies difficulty with stairs. Independent with ADL's. /pt share home mgmt tasks. Transportation: Pt states drives self and states no transportation concerns at this time. also drives. DME: States has the following DME: CPAP, Glucometer, BP monitor, Medical Alert button Pt states no need for further DME at this time. HHC/SNF: No history of either. No needs identified. Pt wishes to return home and states has no concerns with going home at time of discharge. CM to follow for any discharge planning/needs. Pt/ voice no further concerns/needs at this time. Advised them to ask for CM if any further questions/concerns/needs arise. Voice understanding. PLAN: Home Marino SEVILLA RN, CM
--- NOTE | 2019-09-02 11:34 | DS.PCM_ITS ---
Discharge Date and Diagnosis Date of Admission: 09/01/19 Date of Discharge: 09/02/19 - Primary Discharge Diagnosis Active and Suspected Problems (Last Reviewed 06/24/19 @ 09:39 by Amber Blue) 1. New onset atrial fibrillation with hypotension 2. Left upper extremity weakness, resolved-history of CVA. Acute CVA ruled out. 3. CAD/PVD 4. Type 2 diabetes mellitus 5. Chronic kidney disease stage III 6. BPH - Secondary Discharge Diagnosis Chronic Problems (Last Reviewed 06/24/19 @ 09:39 by Amber Blue) Chronic renal failure (Chronic) Claudication (Chronic) Peripheral vascular occlusive disease (Chronic) Right iliac stent 09/2018 Hyperlipidemia (Chronic) Atherosclerosis of coronary artery of [place] heart without angina pectoris (Chronic) Totally occluded right coronary artery with left to right collaterals, Mild left anterior descending artery disease, Mild left circumflex disease per heart cath 2004 Lacunar infarct, acute (Chronic) October 2015 Left temporal area Hospital Course and Treatment Imaging Results: Diagnostic Data Chest X-Ray 09/01/19 14:07 IMPRESSION: Normal x-ray examination of the chest. Electronically Signed: Ricky Dickerson MD at 14:25 EST Tel , Service support , Brain MRI 09/01/19 16:25 IMPRESSION: No acute findings. Small chronic infarct right cerebellar hemisphere inferiorly. Moderate chronic microangiopathic change in the white matter. Electronically Signed: Kaiden Lanier at 20:06 EST Tel , Service support , Dr. Cook- Cardiology Operations: None Procedures: None Summary of Care Provided: The patient is a 68 year old M admitted 09/01/2019 due to dizziness and hypotension. 1. New onset atrial fibrillation with hypotension-converted to sinus rhythm. Continue metoprolol, Eliquis. Will reduce home aspirin regimen to 81 mg daily and discontinue home Plavix regimen. Cardiology consulted during admission. Patient had echocardiogram January 2019 which demonstrated EF 65%, mild tricuspid valve insufficiency. Follow-up with cardiology in 2 weeks, patient follows with Dr. Quick. 2. Left upper extremity weakness, resolved-history of CVA. MRI of brain demonstrated small chronic infarct right cerebellar hemisphere, no acute findings. 3. CAD/PVD-status post right iliac stent and left subclavian stent. Patient had prior heart cath in 2004 which demonstrated totally occluded right coronary artery with [id number] collaterals, mild left anterior descending artery disease, mild left circumflex disease. Continue medical management with aspirin, statin. 4. Type 2 diabetes mellitus-continue home linagliptin and glipizide. 5. Chronic kidney disease stage III-at baseline. 6. BPH-continue Flomax regimen. General: Alert, Oriented x3, Cooperative HEENT: Atraumatic, PERRLA, EOMI, Normocephalic Neck: Supple, No JVD, Negative Carotid Bruits Lungs: Clear to auscultation, Normal air movement Cardiovascular: Regular rate, Regular Rhythm, Normal S1, Normal S2, No murmurs Abdomen: Bowel Sounds Present, Soft, Non Tender, Non-Distended Extremities: No clubbing, No cyanosis, No edema, Capillary Refill Less than 3 Seconds Skin: No rashes, No breakdown Musculoskeletal: No Tenderness to Palpation of Joints or Extremities Neurological: Cranial nerves II-XII grossly intact, Neuro grossly intact Psych/Mental Status: Normal Affect, Appropriate Patient seen and examined prior to discharge. Physical assessment as noted above. Patient is stable for discharge with follow up recommendations as noted above. This patient was seen by SUSANNA Cobb under the supervision of Dr. Cherry. - Physical Exam Vitals/I&O's: Vital Signs Temp Pulse Resp BP Pulse Ox 97.9 F 77 16 152/72 H 100 09/02/19 08:31 09/02/19 08:38 09/02/19 08:31 09/02/19 08:38 09/02/19 08:31 Oxygen Delivery Method Room Air Weight: 205 lb 7.992 oz Body Mass Index (BMI) 32.1 Finger Stick Blood Glucose 82 Intake and Output for Last 24 Hours 08/31/19 09/01/19 09/02/19 23:59 23:59 23:59 Intake Total 940 / 940 1088.33 / 1088.33 Balance 940 / 940 1088.33 / 1088.33 Laboratory Results 09/01/19 14:00: WBC 6.5, RBC 4.06 L, Hgb 12.5 L, Hct 38.0 L, MCV 93.6, MCH 30.8, MCHC 32.9, RDW Std Deviation 46.3 H, RDW Coeff of Estela 13.4, Plt Count 169, MPV 10.1, Immature Gran % (Auto) 0.200, Neut % (Auto) 60.7, Lymph % (Auto) 24.8, [place] % (Auto) 9.5, Eos % (Auto) 4.5, Baso % (Auto) 0.3, Absolute Neuts (auto) 4.0, Absolute Lymphs (auto) 1.61, Nucleated RBC % 0 09/01/19 14:00: Sodium 140, Potassium 5.4 H, Chloride 110 H, Carbon Dioxide 28.0, Anion Gap 2 L, BUN 29 H, Creatinine 2.28 H, Estim Creat Clear Calc 28.19, Est GFR (MDRD) Af Amer 37 L, Est GFR (MDRD) Non-Af 30 L, BUN/Creatinine Ratio 12.7, Glucose 130 H, Calcium 9.0, Troponin I < 0.015 09/01/19 14:00: Magnesium 2.4 09/01/19 16:43: Troponin I < 0.015 09/01/19 17:36: POC Glucose 84 09/01/19 20:10: Troponin I < 0.015 09/01/19 21:13: POC Glucose 107 09/02/19 05:14: WBC 6.2, RBC 3.71 L, Hgb 11.2 L, Hct 34.8 L, MCV 93.8, MCH 30.2, MCHC 32.2, RDW Std Deviation 46.5 H, RDW Coeff of Estela 13.6, Plt Count 161, MPV 10.6, Immature Gran % (Auto) 0.300, Neut % (Auto) 52.9, Lymph % (Auto) 30.4, [place] % (Auto) 9.8, Eos % (Auto) 6.3 H, Baso % (Auto) 0.3, Absolute Neuts (auto) 3.3, Absolute Lymphs (auto) 1.89, Nucleated RBC % 0 09/02/19 05:14: Sodium 141, Potassium 4.5, Chloride 111 H, Carbon Dioxide 26.0, Anion Gap 4 L, BUN 28 H, Creatinine 1.99 H, Estim Creat Clear Calc 32.29, Est GFR (MDRD) Af Amer 43 L, Est GFR (MDRD) Non-Af 35 L, BUN/Creatinine Ratio 14.1, Glucose 123 H, Calcium 7.8 L, Triglycerides 491 H, Cholesterol 152, LDL Cholesterol TNP, VLDL Cholesterol TNP, HDL Cholesterol 31 L, TSH 1.56 09/02/19 06:44: POC Glucose 97 Current Medications Acetaminophen (Tylenol) 650 mg PO Q6H PRN PRN PRN Reason: Pain Score 1-3/Temp > 100.7 F Al Hydroxide/Mg Hydroxide (Mylanta Ii) 30 ml PO Q6H PRN PRN PRN Reason: Gastric Burning Albuterol Sulfate (Ventolin Aerosols) 2.5 mg INHALATION Q2H PRN PRN PRN Reason: SOB/Wheezing Apixaban (Eliquis) 5 mg PO BID [facility] Last Admin: 09/02/19 08:39 Dose: 5 mg Documented by: Aspirin (Aspirin, Baby) 81 mg PO DAILY@0800 [facility] Last Admin: 09/02/19 08:38 Dose: 81 mg Documented by: Atorvastatin Calcium (Lipitor) 20 mg PO QHS [facility] Cholecalciferol (Vitamin D) 2,000 unit PO DAILY [facility] Last Admin: 09/02/19 08:38 Dose: 2,000 unit Documented by: Clopidogrel Bisulfate (Plavix) 75 mg PO DAILY [facility] Last Admin: 09/02/19 08:39 Dose: 75 mg Documented by: Docusate Sodium (Colace) 200 mg PO BID PRN PRN PRN Reason: Constipation Glucagon () 1 mg IM .X1 PRN PRN Reason: Hypoglycemia Guaifenesin (Robitussin) 20 ml PO Q4H PRN PRN PRN Reason: COUGH Sodium Chloride () 1,000 mls @ 100 mls/hr IV .Q10H [facility] Last Admin: 09/02/19 05:31 Dose: 100 mls/hr Documented by: Dextrose (Dextrose 10%-Water) 250 mls @ 999 mls/hr IV .Q16M PRN; Protocol PRN Reason: HYPOGLYCEMIA Insulin Human Lispro (Humalog Kwikpen (Bkc)) 0 unit SC ACHS [facility]; Protocol Last Admin: 09/02/19 06:57 Dose: Not Given Documented by: Metoprolol Tartrate (Lopressor (Beta Carol)) 12.5 mg PO BID [facility] Last Admin: 09/02/19 08:38 Dose: 12.5 mg Documented by: Morphine Sulfate () 2 mg IV Q3H PRN PRN PRN Reason: Pain Score 6-10/10 Ondansetron HCl (Zofran) 4 mg IV Q8H PRN PRN PRN Reason: NAUSEA/VOMITING Oxycodone HCl (Oxyir) 5 mg PO Q4H PRN PRN PRN Reason: Pain Score 4-5/10 Polyethylene Glycol (Miralax) 17 gm PO DAILY [facility] Last Admin: 09/02/19 08:39 Dose: Not Given Documented by: Pregabalin (Lyrica) 150 mg PO BID [facility] Last Admin: 09/02/19 08:47 Dose: 150 mg Documented by: Prochlorperazine Edisylate (Compazine Iv) 5 mg IV Q4H PRN PRN PRN Reason: Breakthrough Nausea/Vomiting Senna/Docusate Sodium (Senokot-S, Malena-Colace) 2 tablet PO BID PRN PRN PRN Reason: Constipation Sodium Chloride () 10 - 40 ml IV UD PRN PRN Reason: SALINE FLUSH Last Admin: 09/01/19 19:51 Dose: 10 ml Documented by: Tamsulosin HCl (Flomax) 0.4 mg PO DAILY [facility] Last Admin: 09/02/19 08:38 Dose: 0.4 mg Documented by: Discharge Diet: Low fat/ Low Cholesterol Discharge Activity: Return to Normal Activity Call your doctor if you observe: Shortness of breath, Dizziness, Fainting spells, Chest pain Home Medications: Medications to take at Discharge Pregabalin [Lyrica] 150 mg PO BID 11/06/15 Lisinopril [Zestril] 10 mg PO DAILY #30 tab 11/08/15 amlodipine 5 mg tablet 5 mg PO DAILY 90 Days #90 tab 12/24/18 atorvastatin 20 mg tablet 20 mg PO QHS #90 tab 12/24/18 glipizide 5 mg tablet 5 mg PO BID 90 Days #180 tab 12/24/18 linagliptin 5 mg tablet 5 mg PO QHS 90 Days #90 tab 12/24/18 tamsulosin 0.4 mg capsule 0.4 mg PO DAILY 90 Days #90 cap 12/24/18 cholecalciferol (vitamin D3) 2,000 unit tablet 2,000 unit PO DAILY 06/24/19 hydrocodone 5 mg-acetaminophen 325 mg tablet 1 tab PO DAILY PRN tab 06/24/19 Apixaban [Eliquis] 5 mg PO BID #60 tab 09/02/19 Aspirin [Aspirin, Baby] 81 mg PO DAILY@0800 #30 tab.chew 09/02/19 Metoprolol Tartrate [Lopressor (beta carol)] 12.5 mg PO BID #60 tab 09/02/19 Following Prescrptions Were Given to Patient: Aspirin [Aspirin, Baby] 81 mg PO DAILY@0800 #30 tab.chew Transmission Status: [id number] Apixaban [Eliquis] 5 mg PO BID #60 tab Transmission Status: [id number] Metoprolol Tartrate [Lopressor (beta carol)] 12.5 mg PO BID #60 tab Transmission Status: [id number] Primary Care Physician: Renzo Davidson DO [Primary Care Provider] - Please follow up with your Primary Care Physician in: 1 Week Please Follow Up With: Zhang Quick MD When: 1-2 Weeks, may see [employer]/PA Disposition: Home Minutes spent on discharge:: 35 Patient Condition:: Stable Medical Necessity - Tobacco Use Smoking Status: Former smoker Tobacco Use: Non-smoker Meaningful Use Info Meaningful Use Diagnoses (Choose all that apply): None applicable
--- NOTE | 2019-09-02 11:36 | CASEMGMT ---
Social Work Received referral from NOAH Hurtado that pt would like to complete advance directives. SW met with pt in his room. Pt stating that he would like to speak to his about the living will prior to completing the document. Pt had a copy of SW rack card for outpatient completion of advance directives and SW showed and explained the card to pt. Pt aware that he can call for appointment after he talks to and makes final decision. JORGE Goyal
--- NOTE | 2019-09-02 12:03 | CASEMGMT ---
Pt to be sent home on Eliquis and med e-scribed to [facility] in [place] previously. Call to [facility] and per tech, pt's co-pay is $132.86 at this time. Pt sent with coupon card and instructions, voices understanding. Alivia HWANG CM
--- NOTE | 2019-09-02 12:04 | PHA.DC.MC ---
Pharmacy Service has performed discharge medication reconciliation and counseling for this patient. The patient's discharge medication list was reviewed for discrepancies and discrepancies were resolved. Home Medications Pregabalin [Lyrica] 150 mg PO BID 11/06/15 Lisinopril [Zestril] 10 mg PO DAILY #30 tab 11/08/15 amlodipine 5 mg tablet 5 mg PO DAILY 90 Days #90 tab 12/24/18 atorvastatin 20 mg tablet 20 mg PO QHS #90 tab 12/24/18 glipizide 5 mg tablet 5 mg PO BID 90 Days #180 tab 12/24/18 linagliptin 5 mg tablet 5 mg PO QHS 90 Days #90 tab 12/24/18 tamsulosin 0.4 mg capsule 0.4 mg PO DAILY 90 Days #90 cap 12/24/18 cholecalciferol (vitamin D3) 2,000 unit tablet 2,000 unit PO DAILY 06/24/19 hydrocodone 5 mg-acetaminophen 325 mg tablet 1 tab PO DAILY PRN tab 06/24/19 Apixaban [Eliquis] 5 mg PO BID #60 tab 09/02/19 Aspirin [Aspirin, Baby] 81 mg PO DAILY@0800 #30 tab.chew 09/02/19 Metoprolol Tartrate [Lopressor (beta nahomy)] 12.5 mg PO BID #60 tab 09/02/19 The patient was counseled on the following discharge medications and changes in medications for homegoing were reviewed. 1. ELIQUIS 2. LOPRESSOR The Reason for Use, instructions for use, and potential side effects were reviewed for all new medications. The patient's questions regarding all of their medications were answered. The patient was able to verbally demonstrate an understanding of their discharge medications.
--- NOTE | 2019-09-02 12:18 | CON.PCM_ITS ---
Problem List (1) Atrial fibrillation, new onset Status: Acute Reason for Consult Date of Consultation: 09/02/19 Reason for Consultation: A fib History of Present Illness: The patient is a 68 year old M with history of coronary artery disease, peripheral arterial disease status post right iliac stent and subclavian stent, lacunar infarct in October 2015 came to ER with feeling of dizziness lightheadedness and hypotension measured at home. This happened today in the morning and patient noticed his heart rate 138 and blood pressure 66/45 and was feeling dizzy and palpitation. At noon his blood pressure was still low, syst olic in 60s and heart rate in 130s therefore he decided to come to the ER. At noontime patient also felt transient weakness in left arm which lasted for about 10 seconds and recovered completely. As per the , sometimes he also has slurry speech when his blood sugar gets low probably neuro hypoglycemic symptoms. In ED, heart rate was found 120 with A. fib with RVR on EKG and blood pressure 9 6/47. Patient at 10 mg IV Cardizem bolus and heart rate controlled and 71 blood pressure 114/50. He was started on PO Metoprolol and Eliquis. Pt. converted to sinus rhythm yesterday afternoon and has been in sinus rhythm since then. ROS: All systems reviewed. All else is negative except that in the H and P.[] Past Medical History Allergies/Adverse Reactions: Allergies No Known Allergies Allergy (Verified 06/24/19 09:35) Home Medications: Ambulatory Orders Medication Instructions Recorded Pregabalin [Lyrica] 150 mg PO BID 11/06/15 Lisinopril [Zestril] 10 mg PO DAILY #30 tab 11/08/15 amlodipine 5 mg tablet 5 mg PO DAILY 90 Days #90 tab 12/24/18 atorvastatin 20 mg tablet 20 mg PO QHS #90 tab 12/24/18 glipizide 5 mg tablet 5 mg PO BID 90 Days #180 tab 12/24/18 linagliptin 5 mg tablet 5 mg PO QHS 90 Days #90 tab 12/24/18 tamsulosin 0.4 mg capsule 0.4 mg PO DAILY 90 Days #90 cap 12/24/18 cholecalciferol (vitamin D3) 2,000 2,000 unit PO DAILY 06/24/19 unit tablet hydrocodone 5 mg-acetaminophen 325 1 tab PO DAILY PRN tab 06/24/19 mg tablet Apixaban [Eliquis] 5 mg PO BID #60 tab 09/02/19 Aspirin [Aspirin, Baby] 81 mg PO DAILY@0800 #30 tab.chew 09/02/19 Metoprolol Tartrate [Lopressor 12.5 mg PO BID #60 tab 09/02/19 (beta nahomy)] Past Medical History (Chronic Problems): Chronic Problems (Last Reviewed 06/24/19 @ 09:39 by Amber Blue) Chronic renal failure (Chronic) Claudication (Chronic) Peripheral vascular occlusive disease (Chronic) Right iliac stent 09/2018 Hyperlipidemia (Chronic) Atherosclerosis of coronary artery of [place] heart without angina pectoris (Chronic) Totally occluded right coronary artery with left to right collaterals, Mild left anterior descending artery disease, Mild left circumflex disease per heart cath 2004 Lacunar infarct, acute (Chronic) October 2015 Left temporal area Surgical History: - - PTCA of the left subclavaian artery by Dr. Nelson on 01/24 Psychiatric History: No pertinent psych hx - *Family History Paternal Family History: Family History (Last Reviewed 06/24/19 @ 09:41 by Amber Blue) Brother Cancer History Items: Heart Disease, - - His father in his mid 70s with dementia Maternal Family History: Family History (Last Reviewed 06/24/19 @ 09:41 by Amber Blue) Brother Cancer History Items: Pulmonary Disease Sibling Family History: Family History (Last Reviewed 06/24/19 @ 09:41 by Amber Blue) Brother Cancer History Items: - - He has a brother who with lung cancer. A sister with diabetes mellitus and rheumatoid arthritis. He has an older brother with dementia. Lives: Spouse/ Significant Other Smoking Status: Former smoker Tobacco Use: Non-smoker Drugs: None Objective: Vital Signs Temp Pulse Resp BP Pulse Ox 97.9 F 77 16 152/72 H 100 09/02/19 08:31 09/02/19 08:38 09/02/19 08:31 09/02/19 08:38 09/02/19 08:31 Oxygen Delivery Method Room Air Weight: 205 lb 7.992 oz Body Mass Index (BMI) 32.1 Finger Stick Blood Glucose 82 Intake and Output for Last 24 Hours 08/31/19 09/01/19 09/02/19 23:59 23:59 23:59 Intake Total 940 / 940 1088.33 / 1088.33 Balance 940 / 940 1088.33 / 1088.33 General: Awake, Alert, Oriented x 3 HEENT: PERRL, EOMI, Sclera Non Icteric Neck: Supple, Good ROM, No Lymph Node Enlargement Lungs: Clear to auscultation Cardiovascular: Regular Rhythm, Normal S1, Normal S2, No Rubs, No Gallops Abdomen: Soft Extremities: No edema Skin: No Rashes Psych/Mental Status: Appropriate 09/01/19 14:00: WBC 6.5, RBC 4.06 L, Hgb 12.5 L, Hct 38.0 L, MCV 93.6, MCH 30.8, MCHC 32.9, Plt Count 169, MPV 10.1, Immature Gran % (Auto) 0.200, Neut % (Auto) 60.7, Lymph % (Auto) 24.8, Harmon % (Auto) 9.5, Eos % (Auto) 4.5, Baso % (Auto) 0.3, Absolute Neuts (auto) 4.0, Nucleated RBC % 0 09/01/19 14:00: Sodium 140, Potassium 5.4 H, Chloride 110 H, Carbon Dioxide 28.0, Anion Gap 2 L, BUN 29 H, Creatinine 2.28 H, Est GFR (MDRD) Af Amer 37 L, Est GFR (MDRD) Non-Af 30 L, BUN/Creatinine Ratio 12.7, Glucose 130 H, Calcium 9.0, Troponin I < 0.015 09/01/19 14:00: Magnesium 2.4 09/01/19 16:43: Troponin I < 0.015 09/01/19 20:10: Troponin I < 0.015 09/02/19 05:14: WBC 6.2, RBC 3.71 L, Hgb 11.2 L, Hct 34.8 L, MCV 93.8, MCH 30.2, MCHC 32.2, Plt Count 161, MPV 10.6, Immature Gran % (Auto) 0.300, Neut % (Auto) 52.9, Lymph % (Auto) 30.4, Harmon % (Auto) 9.8, Eos % (Auto) 6.3 H, Baso % (Auto) 0.3, Absolute Neuts (auto) 3.3, Nucleated RBC % 0 09/02/19 05:14: Sodium 141, Potassium 4.5, Chloride 111 H, Carbon Dioxide 26.0, Anion Gap 4 L, BUN 28 H, Creatinine 1.99 H, Est GFR (MDRD) Af Amer 43 L, Est GFR (MDRD) Non-Af 35 L, BUN/Creatinine Ratio 14.1, Glucose 123 H, Calcium 7.8 L, Triglycerides 491 H, Cholesterol 152, LDL Cholesterol TNP, VLDL Cholesterol TNP, HDL Cholesterol 31 L Rhythm: EKG: ECHO: Stress Test: Cardiac Cath: PCI: CT Surgery: Holter monitor: EPS: PPM: CXR: Chest CT Scan: Assessment/Plan A fib: Paroxysmal. Currently in NSR. Continue BB and eliquis. Ok to stop plavix. Decrease ASA to 81mg daily CAD: continue present management.
--- NOTE | 2019-09-05 15:08 | CASEMGMT ---
[facility]I CM Discharge Follow-up Phone Call: BELKIS: Bari Strata: 3 Call Date: 09/05/19 Discharge Date: 09/02/19 Time of Call: 1509 Duration: 0 ? Admitting Diagnosis: Afib Discharge follow-up call attempted. Nondescript voicemail received. Nonidentifying message left requesting a return call. Audie Yee RN
== END 2019-09-02 12:35 | disposition home or self-care (01) | DRG 310 ==
LOC: ED 15:55 → PCU 16:31
PROVIDERS: Admitting Provider Internal Medicine; Emergency Provider Emergency Medicine; Family Provider Student in an Organized Health Care Education/Training Program; PCP Student in an Organized Health Care Education/Training Program; Referring Provider Internal Medicine; Visit Provider Internal Medicine
DX: I48.0 Paroxysmal atrial fibrillation (principal); I25.10 Atherosclerotic heart disease of native coronary artery without angina pectoris; N18.3 Chronic kidney disease, stage 3 (moderate); E87.5 Hyperkalemia; I73.9 Peripheral vascular disease, unspecified; I95.9 Hypotension, unspecified; E11.22 Type 2 diabetes mellitus with diabetic chronic kidney disease; N40.0 Benign prostatic hyperplasia without lower urinary tract symptoms; E78.5 Hyperlipidemia, unspecified; Z79.84 Long term (current) use of oral hypoglycemic drugs; Z86.73 Personal history of transient ischemic attack (TIA), and cerebral infarction without residual deficits; Z79.02 Long term (current) use of antithrombotics/antiplatelets; Z87.891 Personal history of nicotine dependence
CPT/HCPCS: 36415; 70551; 71045; 80048; 80061; 82962; 83735; 84443; 84484; 85025; 93005; 99285; J7030; A4216

== ENCOUNTER → 2019-11-07 09:25 | Outpatient (CLI) | payer OTHER, SELFPAY ==
[2019-09-20 13:02] VITALS: BMI 32.5
[2019-11-07 11:01] LABS: Hematocrit 30.7 % (40-54); Hemoglobin 9.9 g/dL (13.0-16.5)
[2019-11-07 11:16] LABS: International Normalized Ratio 2.2; Prothrombin Time (Protime)PT. 24.7 SECONDS (11.7-14.9)
== END ==
PROVIDERS: PCP Student in an Organized Health Care Education/Training Program; Referring Provider Internal Medicine; Visit Provider Internal Medicine
DX: D64.9 Anemia, unspecified (principal); I48.91 Unspecified atrial fibrillation
CPT/HCPCS: 36415; 85014; 85018; 85610

== ENCOUNTER 2019-12-09 11:15 | Outpatient (RCR) | payer OTHER, SELFPAY ==
[2019-09-20 13:02] VITALS: BMI 32.5
[2019-11-15 11:00] LABS: Prothrombin Time (Protime)PT. 44.6 SECONDS (11.7-14.9)
[2019-11-15 11:08] LABS: International Normalized Ratio 4.7
[2019-11-17 10:20] LABS: Prothrombin Time (Protime)PT. 37.9 SECONDS (11.7-14.9)
[2019-11-17 10:25] LABS: International Normalized Ratio 3.8
[2019-11-21 09:09] LABS: International Normalized Ratio 3.1; Prothrombin Time (Protime)PT. 32.1 SECONDS (11.7-14.9)
[2019-11-28 11:44] LABS: International Normalized Ratio 3.2; Prothrombin Time (Protime)PT. 32.7 SECONDS (11.7-14.9)
[2019-12-09 11:44] LABS: International Normalized Ratio 2.8; Prothrombin Time (Protime)PT. 29.2 SECONDS (11.7-14.9)
== END 2019-12-09 18:00 | disposition home or self-care (01) ==
LOC: LAB 11:15
PROVIDERS: Internal Medicine Cardiovascular Disease; PCP Student in an Organized Health Care Education/Training Program; Referring Provider Physician Assistant Medical; Visit Provider Physician Assistant Medical
DX: I48.91 Unspecified atrial fibrillation (principal)
CPT/HCPCS: 36415; 85610

== ENCOUNTER → 2019-12-12 | Outpatient (CLI) | payer OTHER, MEDICARE, SELFPAY ==
[2019-11-25 11:30] VITALS: BMI 32.1
[2019-12-12 13:41] LABS: Color, Urine Yellow (Yellow); Glucose, Dipstick Normal (Normal); Ketone-Dipstick Negative (Negative); Leukocyte Esterase-Dipstick Negative /ul (Negative); Nitrite-Dipstick Negative (Negative); Occult Blood-Urine Negative /ul (Negative); Protein-Dipstick 30 mg/dl (Negative); Urine Bilirubin Dipstick Negative (Negative); Urine Clarity Clear (Clear); Urine Urobilinogen Normal (Normal); Urine pH 6.5 (5.0 - 8.0)
[2019-12-12 14:04] LABS: PTHIN 74.4 pg/mL (18.4-80.1)
[2019-12-12 14:06] LABS: Microalbumin:Creatinine Ratio 80.4 mg/g CRE (<30 mg/g CRE); Protein, Urine (Random) 47.8 mg/dL (<11.9); Protein:Creat Ratio 229 mg/g CRE (0-200)
== END | disposition home or self-care (01) ==
LOC: LABSPEC 13:27
PROVIDERS: PCP Student in an Organized Health Care Education/Training Program; Referring Provider Internal Medicine Nephrology; Visit Provider Internal Medicine Nephrology
DX: N18.3 Chronic kidney disease, stage 3 (moderate) (principal)
CPT/HCPCS: 81002; 82043; 82570; 83970; 84156

== ENCOUNTER 2020-01-12 10:31 | Outpatient (RCR) | payer OTHER, MEDICARE, SELFPAY ==
[2019-11-25 11:30] VITALS: BMI 32.1
[2019-12-23 10:48] LABS: International Normalized Ratio 2.9; Prothrombin Time (Protime)PT. 29.7 SECONDS (11.7-14.9)
[2020-01-12 11:33] LABS: International Normalized Ratio 2.3; Prothrombin Time (Protime)PT. 25.1 SECONDS (11.7-14.9)
== END 2020-01-12 18:00 | disposition home or self-care (01) ==
LOC: LAB 10:31
PROVIDERS: PCP Student in an Organized Health Care Education/Training Program; Referring Provider Physician Assistant Medical; Visit Provider Physician Assistant Medical
DX: I48.91 Unspecified atrial fibrillation (principal)
CPT/HCPCS: 36415; 85610

== ENCOUNTER 2020-02-07 09:56 | Outpatient (RCR) | payer OTHER, SELFPAY ==
[2019-11-25 11:30] VITALS: BMI 32.1
[2020-02-07 10:55] LABS: International Normalized Ratio 2.8; Prothrombin Time (Protime)PT. 29.1 SECONDS (11.7-14.9)
== END 2020-02-07 18:00 | disposition home or self-care (01) ==
LOC: LAB 09:56
PROVIDERS: PCP Student in an Organized Health Care Education/Training Program; Referring Provider Physician Assistant Medical; Visit Provider Physician Assistant Medical
DX: I48.91 Unspecified atrial fibrillation (principal)
CPT/HCPCS: 36415; 85610

== ENCOUNTER 2020-03-05 10:48 | Outpatient (RCR) | payer OTHER, SELFPAY ==
[2019-11-25 11:30] VITALS: BMI 32.1
[2020-03-05 11:34] LABS: Hematocrit 38.7 % (40-54); Hemoglobin 12.6 g/dL (13.0-16.5); Mean Corp Hgb Conc 32.6 g/dL (32-36); Mean Corpuscular Hgb 29.4 pg (27.0-32.0); Mean Corpuscular Volume 90.4 fL (80-94); Mean Platelet Vol. 10.4 fl (6.2-12.0); Platelet Count 184 K/mm3 (150-450); RBC Distribution Width CV 13.8 % (11.6-14.6); RBC Distribution Width SD 45.1 fl (35.1-43.9); Red Blood Count 4.28 M/mm3 (4.6-6.2); White Blood Count 6.2 K/mm3 (4.4-11.0)
[2020-03-05 11:41] LABS: Color, Urine Yellow (Yellow); Glucose, Dipstick 1000 mg/dl (Normal); Ketone-Dipstick Negative (Negative); Leukocyte Esterase-Dipstick 25 /ul (Negative); Nitrite-Dipstick Negative (Negative); Occult Blood-Urine 10 /ul (Negative); Protein-Dipstick 30 mg/dl (Negative); Urine Bilirubin Dipstick Negative (Negative); Urine Clarity Sl. Cloudy (Clear); Urine Urobilinogen 1 mg/dl (Normal)
[2020-03-05 11:48] LABS: International Normalized Ratio 2.3; Prothrombin Time (Protime)PT. 24.6 SECONDS (11.7-14.9)
[2020-03-05 11:49] LABS: Albumin, Serum 3.6 g/dL (3.2-5.0); BUN 29 mg/dL (7-18); BUN/Creat Ratio 12.8 RATIO (10-20); Chloride 105 mmol/L (98-107); Creatinine, Serum 2.27 mg/dL (0.70-1.30); EST Glomerular Filtration Rate 30 mL/min (>60); Est Glom Filt Rate - Afr Amer 37 mL/min (>60); Glucose 257 mg/dL (74-106); Phosphorus 2.8 mg/dL (2.5-4.9); Potassium 4.8 mmol/L (3.5-5.1); Sodium Level 139 mmol/L (136-145)
[2020-03-05 11:51] LABS: Bacteria RARE /hpf (None Seen); Hyaline Cast 0-5 SEEN /lpf (0-5); Microalbumin:Creatinine Ratio 101.5 mg/g CRE (<30 mg/g CRE); Mucous, Urine RARE /hpf (<or=2+); Protein:Creat Ratio 308 mg/g CRE (0-200); Red Blood Cells-Urine 0-5 SEEN /hpf (0-5); Squamous Epithelial Cells - UA 0-5 SEEN /hpf (0-5); White Blood Cells 0-5 SEEN /hpf (0-5)
[2020-03-05 13:15] LABS: PTHIN 64.6 pg/mL (18.4-80.1)
[2020-03-05 13:39] LABS: Vitamin D,25 Hydroxy 41.6 ng/mL
== END 2020-03-05 18:00 | disposition home or self-care (01) ==
LOC: LAB 10:48
PROVIDERS: Internal Medicine Nephrology; PCP Student in an Organized Health Care Education/Training Program; Referring Provider Physician Assistant Medical; Visit Provider Physician Assistant Medical
DX: I48.91 Unspecified atrial fibrillation (principal); E55.9 Vitamin D deficiency, unspecified; N18.3 Chronic kidney disease, stage 3 (moderate)
CPT/HCPCS: 36415; 80069; 81001; 82043; 82306; 82570; 83970; 84156; 85027; 85610

== ENCOUNTER → 2020-03-14 08:00 | Outpatient (CLI) | payer OTHER, SELFPAY ==
[2019-11-25 11:30] VITALS: BMI 32.1
--- NOTE | 2020-03-14 08:20 | RAD_ITS ---
STUDY: X-RAY - ESOPHAGUS (BARIUM SWALLOW) WITH FLUOROSCOPY REASON FOR EXAM: Male, 69 years old. Dysphagia x 4 years. Mostly with pills. Had a cookie swallow x 4 years ago. TECHNIQUE: 15 view(s) of the esophagus were obtained following swallowing of barium. FLUOROSCOPY TIME (if supplied): (0:31) minutes/seconds COMPARISON: Comparison is made with prior study dated July 20, 2015. FINDINGS: There is no demonstrated esophageal foreign body. There is no demonstrated stricture or mucosal abnormality. Normal gastroesophageal junction, without a demonstrated hiatal hernia. The patient ingested a 12 mm tablet at bedtime. The tablet is trapped at the gastroesophageal junction. There is atherosclerotic tortuosity of the aortic arch and descending thoracic aorta. Normal visualized pulmonary parenchyma. Normal visualized osseous structures of the thorax. RAD/Esophagus Dual Contrast IMPRESSION: The 12 mm tablet of barium is trapped at the gastroesophageal junction. Electronically Signed: Hal Mckeon, at 15:41 EDT , Service support ,
== END ==
PROVIDERS: PCP Student in an Organized Health Care Education/Training Program; Referring Provider Internal Medicine Gastroenterology; Visit Provider Internal Medicine Gastroenterology
DX: R13.10 Dysphagia, unspecified (principal)
CPT/HCPCS: 74221

== ENCOUNTER 2020-03-22 10:32 | Emergency (ER) | payer OTHER, SELFPAY ==
[2019-11-25 11:30] VITALS: BMI 32.1
[2020-03-22 10:36] VITALS: BP 125/90; PULSE 130; RESP 18; TEMP 36.5; O2SAT 96; BMI 32.6
--- NOTE | 2020-03-22 10:41 | EKG12_ITS ---
Test Reason : CP Blood Pressure : / mmHG Vent. Rate : 113 BPM Atrial Rate : 113 BPM P-R Int : 000 ms QRS Dur : 094 ms QT Int : 276 ms P-R-T Axes : 000 -07 059 degrees QTc Int : 378 ms Atrial fibrillation with rapid ventricular response with premature ventricular or aberrantly conducte d complexes Nonspecific ST and T wave abnormality Abnormal ECG Confirmed by CARMEN OSCAR, MARY ([id number]), script editor KATY AMES ([id number]) on 03/26/2020 8:10:11 AM Referred By: SILVANO Confirmed By:MARY MORALES MD
--- NOTE | 2020-03-22 10:44 | ED.VIS.GEN ---
History of Present Illness Chief Complaint: Chest Pain Informant: Patient Onset: Today Context: Sudden Onset Timing: Continuous Current Severity: Moderate Maximum Severity: Severe Narrative: The patient is a 69-year-old male with medical history significant for coronary vascular disease without stents, peripheral vascular disease with subclavian and iliac stenting, paroxysmal atrial fibrillation on Coumadin who presents to the emergency department with chest heaviness and shortness of breath. The patient states that he was checking his blood pressure at about 10 today. He states he had sudden onset sensation of chest heaviness that went into his jaw. He states he felt mildly short of breath. He did take a nitro which seemed to relieve the jaw pain but he was still having mild chest pain. He states his been compliant with his medications. He denies any fevers or chills. He states he is otherwise been in his normal state of health. Prior similar symptoms: No Recent Illness/Hospitalization: No Past Medical History - Allergies and Home Meds Allergies/Adverse Reactions: Allergies No Known Allergies Allergy (Verified 11/25/19 11:31) Primary Care Physician: Renzo Davidson DO [Primary Care Provider] - Prior records reviewed: Yes Past Medical History: - - Coronary vascular disease, prior stroke, peripheral vascular disease, hypertension, A. fib Surgical History: - - PTCA of the left subclavaian artery by Dr. Nelson on 01/24 Lives: With Family Smoking Status: Former smoker - Family History Paternal Family History: Family History (Last Reviewed 11/25/19 @ 11:[address] Zhang Quick MD) Brother Cancer Family History: Reports: Heart Disease, - - His father in his mid 70s with dementia Maternal Family History: Family History (Last Reviewed 11/25/19 @ 11:[address] Zhang Quick MD) Brother Cancer Family History: Reports: Pulmonary Disease Sibling Family History: Family History (Last Reviewed 11/25/19 @ 11:[address] Zhang Quick MD) Brother Cancer Family History: Reports: - - He has a brother who with lung cancer. A sister with diabetes mellitus and rheumatoid arthritis. He has an older brother with dementia. Review of Systems General: Denies: Chills, Fever, Sweats Eyes: Denies: Visual changes - bilaterally, Diplopia ENT: Denies: Rhinorrhea, Sore throat Cardiovascular: Reports: Chest pain, Palpitations Respiratory: Reports: Dyspnea. Denies: Cough, Dyspnea on exertion Gastrointestinal: Denies: Abdominal pain, Nausea, Vomiting, Diarrhea, Melena, Hematochezia Genitourinary: Denies: Dysuria, Hematuria, Frequency Musculoskeletal: Denies: Back pain, Extremity Pain Skin: Denies: Rash, Wounds Neurological: Denies: Headache, Weakness, Numbness Physical Exam Vital Signs/Narrative: Vital Signs Temp Pulse Resp BP Pulse Ox 03/22/20 10:36 97.7 F L 130 H 18 125/90 H 96 Inital Vital Signs reviewed: Yes General: Well nourished, Well developed, No Acute Distress Head: Normocephalic, Atraumatic Eyes: Perrl, EOMI ENT: Moist mucous membranes, No rhinorrhea Neck: Supple, Nontender Cardiovascular: No murmurs, Irregular, Tachycardia Respiratory: No distress, CTA bilaterally, Chest nontender Abdomen: Soft, Nontender, Nondistended, Normal bowel sounds Back: Nontender, Normal Inspection Extremities: Nontender, No edema Skin: Normal color, No rash Neurological: Alert, Oriented x3, Cranial nerves II-XII grossly intact, Normal Strength, Normal Sensation Psychological: Normal affect, Normal Mood Diagnostic/Tx/Re-eval Clinical Impression(s) from Imaging Studies Chest X-Ray 03/22/20 10:48 IMPRESSION: Cardiomegaly. The lungs are clear. Electronically Signed: Hal Mike, at 11:01 EDT , Service support , Abnormal Lab Results 03/22/20 03/22/20 03/22/20 10:45 10:45 10:45 WBC 6.4 RBC 4.38 L Hgb 13.1 Hct 39.7 L MCV 90.6 MCH 29.9 MCHC 33.0 RDW Std Deviation 45.7 H RDW Coeff of Estela 13.7 Plt Count 190 MPV 10.2 Immature Gran % (Auto) 0.300 Neut % (Auto) 50.9 Lymph % (Auto) 31.1 Jones % (Auto) 11.0 H Eos % (Auto) 6.2 H Baso % (Auto) 0.5 Absolute Neuts (auto) 3.3 Absolute Lymphs (auto) 2.00 Nucleated RBC % 0 PT 21.1 H INR 1.9 Sodium 137 Potassium 4.7 Chloride 106 Carbon Dioxide 26.0 Anion Gap 5 BUN 32 H Creatinine 2.25 H Estim Creat Clear Calc 28.15 Est GFR (MDRD) Af Amer 37 L Est GFR (MDRD) Non-Af 31 L BUN/Creatinine Ratio 14.2 Glucose 281 H Calcium 8.9 Troponin I < 0.015 B-Natriuretic Peptide 03/22/20 10:45 WBC RBC Hgb Hct MCV MCH MCHC RDW Std Deviation RDW Coeff of Estela Plt Count MPV Immature Gran % (Auto) Neut % (Auto) Lymph % (Auto) Jones % (Auto) Eos % (Auto) Baso % (Auto) Absolute Neuts (auto) Absolute Lymphs (auto) Nucleated RBC % PT INR Sodium Potassium Chloride Carbon Dioxide Anion Gap BUN Creatinine Estim Creat Clear Calc Est GFR (MDRD) Af Amer Est GFR (MDRD) Non-Af BUN/Creatinine Ratio Glucose Calcium Troponin I B-Natriuretic Peptide 134.0 H - Rhythm Strip Rhythm Strip: A-fib Rate: 120 Ectopy: PAC(s) - EKG Initial EKG Interpretation: Atrial Fibrillation, Non-Specific ST Changes Prior: Unchanged - Medical Decision Making The patient is a 69-year-old male with history significant for coronary vascular disease. He is a chronically occluded RCA with collateral flow. He also has some disease in his LAD and circumflex. He has not had any stenting done. Today, he had sudden onset chest pain in the substernal area associated shortness of breath with pain that radiated to his jaw. EKG was obtained on arrival. It was atrial fibrillation with rapid ventricular response. It was a rate of 113. The patient will fluctuate anywhere from 90-140. I was initially going to give him diltiazem as he is converted with this before, but his heart rate had decreased down into the 80s. He stayed in atrial fibrillation. The patient's pain had resolved after taking nitro at home. Chest x-ray shows cardiomegaly without evidence of acute volume overload. Cardiac enzymes were negative. Given the patient's significant cardiac history, pain concerning for acute coronary syndrome, I do feel that he would best be served with admission for cardiac rule out. The patient was discussed with the hospitalist. Impression 1. Atrial fibrillation with rapid ventricular response 2. Chest pain with history of coronary vascular disease Prior to admission, the patient decided that he did not want to stay in the hospital. He states that he has no interest in being hospitalized. I did spend time discussing the risks with him. I have significant concern for cardiac cause of his pain. I have basically begged the patient to stay. He states that he is going to leave AGAINST MEDICAL ADVICE. He has capacity to make his own decisions. He knows that there is significant risk of or permanent disability. I counseled him that if his symptoms worsen or return that he should return to the emergency department. He is comfortable with this plan of care. ED Disposition - Plan for ED Patient: Disposition: Against Medical Advice Instructions: ED Chest Pain Atypical Unkn Cause Referrals: Renzo Davidson DO [Primary Care Provider] -
--- NOTE | 2020-03-22 10:48 | RAD_ITS ---
STUDY: X-RAY CHEST REASON FOR EXAM: Male, 69 years old. STERNAL CP STARTING THIS AM RADIATES INTO JAW -- HX OF AFIB, CVA, HTN TECHNIQUE: Single AP portable view of the chest. COMPARISON: Comparison is made with prior examination dated September 01, 2019. FINDINGS: EKG electrodes are seen. The lungs are clear and expanded. There is no demonstrated pleural abnormality. There is mild cardiac enlargement. Normal mediastinum and chloe. Normal visualized pulmonary arteries. There is atherosclerotic calcification of the aortic arch with tortuosity. There are diffuse degenerative changes of the visualized thoracic spine. Normal visualized ribs, clavicles, and shoulders. There is no demonstrated abnormality of the visualized soft tissue structures of the upper abdomen. RAD/Chest 1 View (Portable) IMPRESSION: Cardiomegaly. The lungs are clear. Electronically Signed: Hal Mckeon, at 11:01 EDT , Service support ,
[2020-03-22 10:49] LABS: Absolute Neutrophil Count 3.3 X10^3/uL (2.0-7.7); Basophil# 0.03 X10^3/uL; Basophil% 0.5 % (0-1); Eosinophils% 6.2 % (0-5); Hematocrit 39.7 % (40-54); Hemoglobin 13.1 g/dL (13.0-16.5); Lymphocyte % 31.1 % (19-41); Mean Corpuscular Hgb 29.9 pg (27.0-32.0); Mean Corpuscular Volume 90.6 fL (80-94); Mean Platelet Vol. 10.2 fl (6.2-12.0); Monocyte# 0.71 X10^3/uL; NRBC Flagged by Analyzer 0 % (0-5); Neutrophil # 3.27 X10^3/uL (2.7-7.7); Neutrophil % 50.9 % (47-70); Platelet Count 190 K/mm3 (150-450); RBC Distribution Width CV 13.7 % (11.6-14.6); RBC Distribution Width SD 45.7 fl (35.1-43.9); Red Blood Count 4.38 M/mm3 (4.6-6.2); White Blood Count 6.4 K/mm3 (4.4-11.0)
[2020-03-22] MEDS: Aspirin 81 MG TAB.CHEW 324 MG PO (10:55)
[2020-03-22 10:57] VITALS: BP 98/55; PULSE 94; RESP 16; O2SAT 97
[2020-03-22 11:01] LABS: International Normalized Ratio 1.9; Prothrombin Time (Protime)PT. 21.1 SECONDS (11.7-14.9)
[2020-03-22 11:11] LABS: Anion Gap 5 (5-15); BUN 32 mg/dL (7-18); BUN/Creat Ratio 14.2 RATIO (10-20); Calcium,Total 8.9 mg/dL (8.5-10.1); Chloride 106 mmol/L (98-107); Creatinine, Serum 2.25 mg/dL (0.70-1.30); EST Glomerular Filtration Rate 31 mL/min (>60); Est Glom Filt Rate - Afr Amer 37 mL/min (>60); Estimated Creatinine Clearance 28.15 ml/min; Glucose 281 mg/dL (74-106); Potassium 4.7 mmol/L (3.5-5.1); Sodium Level 137 mmol/L (136-145)
--- NOTE | 2020-03-22 11:16 | ED.RN ---
NO CARDIZEM AT THIS TIME D/T BP AND HR
[2020-03-22 11:32] VITALS: BP 110/48; PULSE 85; RESP 17; O2SAT 94
[2020-03-22 11:37] VITALS: BP 110/48; PULSE 79; RESP 19; TEMP 36.8; O2SAT 93
--- NOTE | 2020-03-22 12:11 | ED.DEP ---
ED Disposition - Plan for ED Patient: Disposition: Against Medical Advice
[2020-03-22 12:27] VITALS: BP 136/66; PULSE 72; RESP 17; O2SAT 95
== END 2020-03-22 12:33 | disposition left against medical advice (07) ==
LOC: ED 11:23 → PCU 12:10
PROVIDERS: Emergency Provider Emergency Medicine; PCP Student in an Organized Health Care Education/Training Program
DX: I48.91 Unspecified atrial fibrillation (principal); I25.10 Atherosclerotic heart disease of native coronary artery without angina pectoris; Z53.21 Procedure and treatment not carried out due to patient leaving prior to being seen by health care provider; I49.1 Atrial premature depolarization; I10 Essential (primary) hypertension; I73.9 Peripheral vascular disease, unspecified; Z86.73 Personal history of transient ischemic attack (TIA), and cerebral infarction without residual deficits; Z79.01 Long term (current) use of anticoagulants; Z79.82 Long term (current) use of aspirin; Z79.899 Other long term (current) drug therapy; Z87.891 Personal history of nicotine dependence
CPT/HCPCS: 71045; 80048; 83880; 84484; 85025; 85610; 93005; 96374; 99285; A4216

== ENCOUNTER 2020-04-02 09:17 | Outpatient (RCR) | payer OTHER, SELFPAY ==
[2019-11-25 11:30] VITALS: BMI 32.1
[2020-04-02 10:31] LABS: International Normalized Ratio 1.7; Prothrombin Time (Protime)PT. 19.6 SECONDS (11.7-14.9)
== END 2020-04-02 18:00 | disposition home or self-care (01) ==
LOC: LAB 09:17
PROVIDERS: PCP Student in an Organized Health Care Education/Training Program; Referring Provider Physician Assistant Medical; Visit Provider Physician Assistant Medical
DX: I48.91 Unspecified atrial fibrillation (principal)
CPT/HCPCS: 36415; 85610

== ENCOUNTER 2020-05-31 07:53 | Outpatient (RCR) | payer OTHER, SELFPAY ==
[2020-05-31 08:44] LABS: International Normalized Ratio 2.1; Prothrombin Time (Protime)PT. 23.4 SECONDS (11.7-14.9)
== END 2020-05-31 18:00 | disposition home or self-care (01) ==
LOC: LAB 07:53
PROVIDERS: PCP Student in an Organized Health Care Education/Training Program; Referring Provider Physician Assistant Medical; Visit Provider Physician Assistant Medical
DX: I48.91 Unspecified atrial fibrillation (principal)
CPT/HCPCS: 36415; 85610

== ENCOUNTER → 2020-06-12 06:04 | Outpatient (CLI) | payer OTHER, SELFPAY ==
[2020-06-05 08:45] VITALS: BMI 31.9
--- NOTE | 2020-06-12 13:10 | STRESSREP ---
Stress Test Report Pharmacologic myocardial perfusion stress test. 69-year-old male with a history of LAD disease, circumflex disease and occluded right coronary artery with [id number] collaterals. Stress protocol: Resting EKG demonstrates normal sinus rhythm with a rate of 65 bpm normal intervals are noted resting blood pressure is 170/88 mmHg. 0.4 mg of regadenoson was infused per usual protocol followed by Intravenous saline flush injection continuous insights strategist was performed. The maximum heart rate attained was 85 bpm which was 57% of maximum predicted heart rate the maximum workload was 1 metabolic equivalent. At rest there were no ST or T wave changes noted to suggest abnormal flow reserve at peak infusion nonspecific ST-T wave changes were noted. The final blood pressure was 152/66 mmHg. Myocardial perfusion protocol. 14.1 mCi of technetium 99m sestamibi was injected at rest. 0.4 mg of regadenoson was infused per usual protocol. At peak infusion 44.3 mCi of technetium 99m sestamibi was injected stress images were obtained stress and rest images were reconstructed and compared in the short axis vertical long horizontal long axis. Gated images were also obtained Perfusion SPECT analysis: Review of the stress images demonstrate normal uptake of tracer noted in all areas of the myocardium the resting images similar demonstrate normal uptake of tracer noted in all areas of the myocardium. No areas of reversibility are noted suggest ischemia. Gated SPECT analysis: The gated ejection fraction is 61%. Conclusion: Normal pharmacologic myocardial perfusion stress test. Preserved ejection fraction.
== END ==
PROVIDERS: PCP Student in an Organized Health Care Education/Training Program; Referring Provider Physician Assistant Medical; Visit Provider Physician Assistant Medical
DX: I25.119 Atherosclerotic heart disease of native coronary artery with unspecified angina pectoris (principal)
CPT/HCPCS: 78452; 93017; A9500; A4216; J2785

== ENCOUNTER 2020-06-21 08:03 | Outpatient (RCR) | payer OTHER, SELFPAY ==
[2020-06-05 08:45] VITALS: BMI 31.9
[2020-06-21 09:17] LABS: International Normalized Ratio 1.9; Prothrombin Time (Protime)PT. 21.7 SECONDS (11.7-14.9)
[2020-06-21 09:42] LABS: AST(SGOT) 30 U/L (15-37); Alanine Aminotransfer ALT/SGPT 40 U/L (16-61); Albumin, Serum 3.6 g/dL (3.2-5.0); Alkaline Phosphatase 116 U/L (45-117); Cholesterol 161 mg/dL (200); High Density Lipoprotein 40 mg/dL; Protein, Total 7.6 g/dL (6.4-8.2); Triglycerides 420 mg/dL
== END 2020-06-21 18:00 | disposition home or self-care (01) ==
LOC: LAB 08:03
PROVIDERS: PCP Student in an Organized Health Care Education/Training Program; Referring Provider Physician Assistant Medical; Visit Provider Physician Assistant Medical
DX: I48.91 Unspecified atrial fibrillation (principal); E78.5 Hyperlipidemia, unspecified; I25.10 Atherosclerotic heart disease of native coronary artery without angina pectoris; I73.9 Peripheral vascular disease, unspecified
CPT/HCPCS: 36415; 80061; 80076; 85610

== ENCOUNTER 2020-07-17 09:16 | Outpatient (RCR) | payer OTHER, SELFPAY ==
[2020-06-05 08:45] VITALS: BMI 31.9
[2020-07-17 10:15] LABS: International Normalized Ratio 2.4; Prothrombin Time (Protime)PT. 25.9 SECONDS (11.7-14.9)
== END 2020-07-17 18:00 | disposition home or self-care (01) ==
LOC: LAB 09:16
PROVIDERS: PCP Student in an Organized Health Care Education/Training Program; Referring Provider Physician Assistant Medical; Visit Provider Physician Assistant Medical
DX: I48.91 Unspecified atrial fibrillation (principal)
CPT/HCPCS: 36415; 85610

== ENCOUNTER → 2020-08-02 10:31 | Outpatient (CLI) | payer OTHER, SELFPAY ==
[2020-06-05 08:45] VITALS: BMI 31.9
[2020-08-02 12:17] LABS: PSA,Total - Annual Screen 0.43 ng/mL (0.00-4.00)
== END ==
PROVIDERS: PCP Student in an Organized Health Care Education/Training Program; Referring Provider Nurse Practitioner Adult Health; Visit Provider Nurse Practitioner Adult Health
DX: Z12.5 Encounter for screening for malignant neoplasm of prostate (principal)
CPT/HCPCS: 36415; 84153; G0103

== ENCOUNTER 2020-08-15 08:17 | Outpatient (RCR) | payer OTHER, SELFPAY ==
[2020-06-05 08:45] VITALS: BMI 31.9
[2020-08-15 09:59] LABS: Prothrombin Time (Protime)PT. 31.2 SECONDS (11.7-14.9)
== END 2020-08-15 18:00 | disposition home or self-care (01) ==
LOC: LAB 08:17
PROVIDERS: PCP Student in an Organized Health Care Education/Training Program; Referring Provider Physician Assistant Medical; Visit Provider Physician Assistant Medical
DX: I48.91 Unspecified atrial fibrillation (principal)
CPT/HCPCS: 36415; 85610

== ENCOUNTER → 2020-08-20 10:17 | Outpatient (CLI) | payer OTHER, SELFPAY ==
[2020-06-05 08:45] VITALS: BMI 31.9
[2020-08-20 10:34] LABS: Hematocrit 40.9 % (40-54); Hemoglobin 13.6 g/dL (13.0-16.5); Mean Corp Hgb Conc 33.3 g/dL (32-36); Mean Corpuscular Hgb 30.6 pg (27.0-32.0); Mean Corpuscular Volume 91.9 fL (80-94); Platelet Count 186 K/mm3 (150-450); RBC Distribution Width CV 12.8 % (11.6-14.6); RBC Distribution Width SD 43.3 fl (35.1-43.9); Red Blood Count 4.45 M/mm3 (4.6-6.2); White Blood Count 7.4 K/mm3 (4.4-11.0)
[2020-08-20 11:02] LABS: Vitamin B12 330 pg/mL (211-911)
[2020-08-20 11:10] LABS: ALB/GLOB Ratio 1.1 RATIO (0.9-2.4); AST(SGOT) 39 U/L (15-37); Alanine Aminotransfer ALT/SGPT 57 U/L (16-61); Albumin, Serum 3.8 g/dL (3.2-5.0); Alkaline Phosphatase 119 U/L (45-117); Anion Gap 6 (5-15); BUN 31 mg/dL (7-18); BUN/Creat Ratio 15.4 RATIO (10-20); Calcium,Total 8.9 mg/dL (8.5-10.1); Chloride 103 mmol/L (98-107); Cholesterol 160 mg/dL (200); Creatinine, Serum 2.01 mg/dL (0.70-1.30); EST Glomerular Filtration Rate 35 mL/min (>60); Est Glom Filt Rate - Afr Amer 42 mL/min (>60); Globulin 3.6 g/dL (2.2-4.2); Glucose 144 mg/dL (74-106); High Density Lipoprotein 42 mg/dL; Potassium 4.4 mmol/L (3.5-5.1); Protein, Total 7.4 g/dL (6.4-8.2); Sodium Level 137 mmol/L (136-145); Thyroid Stim Hormone (TSH) 0.86 uIU/mL (0.358-3.74); Triglycerides 338 mg/dL; Very Low Density Lipoprotein 68 mg/dL (5-40)
== END ==
PROVIDERS: PCP Student in an Organized Health Care Education/Training Program; Referring Provider Student in an Organized Health Care Education/Training Program; Visit Provider Student in an Organized Health Care Education/Training Program
DX: E11.65 Type 2 diabetes mellitus with hyperglycemia (principal); E11.40 Type 2 diabetes mellitus with diabetic neuropathy, unspecified
CPT/HCPCS: 36415; 80053; 80061; 82607; 84443; 85027

== ENCOUNTER → 2020-09-04 07:50 | Outpatient (CLI) | payer OTHER, SELFPAY ==
[2020-06-05 08:45] VITALS: BMI 31.9
--- NOTE | 2020-09-04 07:52 | ART_ITS ---
Reason For Study: atherosclerosis with claudication Procedure A bilateral lower extremity continuous wave Doppler with analog waveform analysis and ankle brachial indexes. Left Segmental Pressures Left posterior tibial artery = 197mmHg. Left dorsalis pedis artery = 175mmHg. Left digit = 100 mmHg. The left posterior tibial artery waveforms are triphasic. The left dorsalis pedis waveforms are biphasic. Right Segmental Pressures Right brachial= 181mmHg. Right posterior tibial artery = 179mmHg. Right dorsalis pedis artery = 165mmHg. Right digit = 102 mmHg. The right dorsalis pedis waveforms are triphasic. The right posterior tibial artery waveforms are triphasic. Indices The right ankle brachial index by the dorsalis pedis is .91. The right ankle brachial index by the posterior tibial artery is .99. The right digital-brachial index is .56. The left ankle brachial index by the dorsalis pedis is .97. The left ankle brachial index by the posterior tibial artery is 1.09. The left digital-brachial index is .56. Interpretation Summary No evidence occlussive disease at rest with MICHELLE 0.99 and 1.09 and mild smallvessel disease with DBI 0.56 and 0.55. Ordering Physician: Derrick Nelson Performed By: FERNANDO MONAE China
--- NOTE | 2020-09-04 07:52 | AAVD_ITS ---
Reason For Study: S/P aortoiliac angiogram, atherosclerosis Aorta Measurements Aorta Doppler Measurements Proximal aorta measures1.33 x 1.4cm. in cross- Peak systolic flow velocities within the proximal sectional axis. aorta measure 58.9 cm/sec. Proximal aorta measures1.36cm. in longitudinal Peak systolic flow velocities within the mid aorta axis. measure 68.0 cm/sec. Mid aorta measures1.65 x 1.75cm. in cross- Peak systolic flow velocities within the distal sectional axis. aorta measure 71.6 cm/sec. Mid aorta measures1.51cm. in longitudinal axis. Distal aorta measures2.14 x 2.06cm. in cross- sectional axis. Distal aorta measures2.23cm. in longitudinal axis. Left Iliac Artery Left iliac artery measures .72 x .76 cm. in the cross-sectional axis. Left iliac artery measures .64 cm. in the longitudinal axis. Peak systolic velocity in the left iliac artery measures 197.9 cm/sec. Right Iliac Artery Right iliac artery measures .91 x 1.08 cm. in the cross-sectional axis. Right iliac artery measures 1.06 cm. in the longitudinal axis. Peak systolic velocity in the right iliac artery measures 194.7 cm/sec. Procedure Aorta IVC Iliac vasculature or bypass grafts [id number]. The exam was diagnostic. Exam performed in department. Interpretation Summary No aortoiliac aneurysm or stenosis. Ordering Physician: Derrick Nelson Performed By: Alvarado Edwards RVT
== END ==
PROVIDERS: PCP Student in an Organized Health Care Education/Training Program; Referring Provider Surgery Vascular Surgery; Visit Provider Surgery Vascular Surgery
DX: I70.213 Atherosclerosis of native arteries of extremities with intermittent claudication, bilateral legs (principal); Z48.812 Encounter for surgical aftercare following surgery on the circulatory system; F17.200 Nicotine dependence, unspecified, uncomplicated
CPT/HCPCS: 93922; 93978

== ENCOUNTER → 2020-10-09 16:43 | Outpatient (CLI) | payer OTHER, SELFPAY ==
[2020-06-05 08:45] VITALS: BMI 31.9
[2020-10-09 17:02] LABS: Hematocrit 42.1 % (40-54); Hemoglobin 14.1 g/dL (13.0-16.5); Mean Corp Hgb Conc 33.5 g/dL (32-36); Mean Corpuscular Volume 89.6 fL (80-94); Mean Platelet Vol. 9.5 fl (6.2-12.0); Platelet Count 147 K/mm3 (150-450); RBC Distribution Width CV 13.5 % (11.6-14.6); RBC Distribution Width SD 44.7 fl (35.1-43.9); White Blood Count 4.5 K/mm3 (4.4-11.0)
[2020-10-09 18:09] LABS: ALB/GLOB Ratio 0.9 RATIO (0.9-2.4); AST(SGOT) 88 U/L (15-37); Alanine Aminotransfer ALT/SGPT 104 U/L (16-61); Albumin, Serum 3.6 g/dL (3.2-5.0); Alkaline Phosphatase 127 U/L (45-117); Anion Gap 8 (5-15); BUN 26 mg/dL (7-18); BUN/Creat Ratio 11.8 RATIO (10-20); Calcium,Total 8.4 mg/dL (8.5-10.1); Chloride 102 mmol/L (98-107); EST Glomerular Filtration Rate 31 mL/min (>60); Est Glom Filt Rate - Afr Amer 38 mL/min (>60); Globulin 4.1 g/dL (2.2-4.2); Glucose 152 mg/dL (74-106); Potassium 4.1 mmol/L (3.5-5.1); Protein, Total 7.7 g/dL (6.4-8.2); Sodium Level 135 mmol/L (136-145)
== END ==
PROVIDERS: PCP Student in an Organized Health Care Education/Training Program; Referring Provider Nurse Practitioner Primary Care; Visit Provider Nurse Practitioner Primary Care
DX: R53.83 Other fatigue (principal); R11.0 Nausea; N18.9 Chronic kidney disease, unspecified
CPT/HCPCS: 36415; 80053; 85027; 87635; C9803; U0003

== ENCOUNTER 2020-10-13 12:33 | Inpatient (IN) | payer OTHER, MEDICARE, SELFPAY ==
[2020-06-05 08:45] VITALS: BMI 31.9
[2020-10-13 12:34] VITALS: BP 106/56; PULSE 84; RESP 16; TEMP 36.9; O2SAT 94; BMI 29.0
--- NOTE | 2020-10-13 13:02 | CT_ITS ---
STUDY: CT ABDOMEN AND PELVIS WITHOUT CONTRAST REASON FOR EXAM: Male, 69 years old. FEVER,NAUSEA,DIARRHES X8 DAYS -- HX-CAD,AFIB,PVD,HTN,CKD STAGE 3 RADIATION DOSAGE (If Supplied By Facility): CTDIvol = ( 12.73 ) mGy, DLP = ( 588.13 ) mGycm TECHNIQUE: Transaxial images were obtained from the dome of the diaphragm to the symphysis pubis without oral contrast, and without intravenous contrast. Sagittal and coronal images were reconstructed. Individualized dose optimization techniques were used for this CT. COMPARISON: None. FINDINGS: There are chronic interstitial fibrotic changes of the lung bases. The visualized portions of the heart are within normal limits. Normal liver. Gallbladder is contracted with layering, dependent gallstones. No pericholecystic fluid/induration. Small locules of air in the nondependent gallbladder fundus on images 59-62. Normal spleen. Normal pancreas. Normal bilateral adrenal glands. Atrophy of the bilateral kidneys but no hydronephrosis. There are cystic lesions of the left kidney measuring 2.7 cm. Normal visualized stomach. Small mural lipoma of the third portion duodenum is of doubtful significance. No bowel wall thickening or dilated loops of bowel. Colon is nondistended but no obvious colonic wall thickening or pericolonic stranding. The appendix is visualized and appears normal. There is diffuse atherosclerotic calcification of the abdominal aorta, without a demonstrated aneurysm. Right common iliac artery stent is noted. Normal inferior vena cava. Normal retroperitoneum. Normal urinary bladder. There is enlargement of the prostate gland. Normal abdominal wall. There are diffuse degenerative changes of the visualized lumbar spine. CT/Abdomen/Pelvis without Cont IMPRESSION: 1. No acute inflammatory process. 2. Gallstones. Air could be in the nondependent gallbladder lumen or anterior/fundal wall. Given absent adjacent stranding and nondistended gallbladder, emphysematous cholecystitis is felt to be unlikely in the air may represent cholesterol deposits or air-filled stones. 3. Bilateral renal cortical atrophy. Left renal cysts. No comparison study. Recommend renal ultrasound for further characterization (nonemergent). Electronically Signed: Jarred Wadsworth MD ([place]) at 14:21 EST , Service support ,
[2020-10-13 13:22] LABS: Absolute Lymphocyte Count 0.68 X10^3/uL (0.83-4.51); Basophil# 0.01 X10^3/uL; Basophil% 0.2 % (0-1); Hematocrit 37.8 % (40-54); Hemoglobin 12.7 g/dL (13.0-16.5); Lymphocyte # 0.68 X10^3/ul (4.0); Lymphocyte % 12.8 % (19-41); Mean Corp Hgb Conc 33.6 g/dL (32-36); Mean Corpuscular Hgb 30.4 pg (27.0-32.0); Mean Corpuscular Volume 90.4 fL (80-94); Mean Platelet Vol. 9.9 fl (6.2-12.0); Monocyte# 0.61 X10^3/uL; Monocyte% 11.5 % (0-10); NRBC Flagged by Analyzer 0 % (0-5); Neutrophil # 3.99 X10^3/uL (2.7-7.7); Neutrophil % 74.9 % (47-70); Platelet Count 181 K/mm3 (150-450); RBC Distribution Width CV 13.6 % (11.6-14.6); RBC Distribution Width SD 45.8 fl (35.1-43.9); Red Blood Count 4.18 M/mm3 (4.6-6.2); White Blood Count 5.3 K/mm3 (4.4-11.0)
--- NOTE | 2020-10-13 13:24 | NURSING ---
BLUE TOP HEMOLIZED. LAB TO REPRINT LABEL
[2020-10-13 13:37] LABS: ALB/GLOB Ratio 0.8 RATIO (0.9-2.4); AST(SGOT) 51 U/L (15-37); Alanine Aminotransfer ALT/SGPT 66 U/L (16-61); Albumin, Serum 3.1 g/dL (3.2-5.0); Alkaline Phosphatase 102 U/L (45-117); Anion Gap 6 (5-15); BUN 30 mg/dL (7-18); BUN/Creat Ratio 14.1 RATIO (10-20); Calcium,Total 8.1 mg/dL (8.5-10.1); Chloride 103 mmol/L (98-107); Creatinine, Serum 2.13 mg/dL (0.70-1.30); EST Glomerular Filtration Rate 33 mL/min (>60); Est Glom Filt Rate - Afr Amer 40 mL/min (>60); Estimated Creatinine Clearance 29.74 ml/min; Globulin 4.1 g/dL (2.2-4.2); Glucose 186 mg/dL (74-106); Lipase 584 U/L (73-393); Potassium 3.8 mmol/L (3.5-5.1); Protein, Total 7.2 g/dL (6.4-8.2); Sodium Level 135 mmol/L (136-145)
[2020-10-13] MEDS: 0.9% Normal Saline 1,000 ML 1000 ML IV (13:45)
[2020-10-13 13:59] VITALS: BP 155/61; PULSE 75; RESP 20; O2SAT 95
[2020-10-13 14:06] LABS: International Normalized Ratio 2.4; Prothrombin Time (Protime)PT. 25.8 SECONDS (11.7-14.9)
--- NOTE | 2020-10-13 14:12 | ED.DCSUM_ITS ---
- ER Visit Summary Date of Service: 10/13/20 Chief Complaint: Fevers History of Present Illness: The patient is a 69 M with intermittent fevers from 99-1 01 over the past week. Associated with feeling queasy. He had one episode of diarrhea. He reports weight loss over the past week. He was referred to the ED for evaluation. He has a history of atrial fibrillation and takes Coumadin. Also history of stroke, ME, hypertension, hyperlipidemia. Physical Examination: Afebrile and vital signs unremarkable. Heart regular. Lungs clear. Abdomen soft nontender. No guarding or rebound. Skin appears normal. Test Results: Labs, urine, CT pending. Emergency Department Course and Treatment: Patient treated with IV fluids while awaiting results. He denies nausea or pain. Liver enzymes slightly elevated. This is his baseline. Lipase is 584. CT was limited. Because of his baseline kidney function, we cannot use contrast. This showed gallstones with air in the wall. He is now developing pain and requestin g meds for pain and nausea. He was treated with morphine and Zofran. Dr. Luciano was consulted. She saw the patient in the ED. She is recommending HIDA scan, antibiotics, and CT with contrast if we can improve his kidney function. Hospitalist was contacted to admit for further care. His COVID-19 test was negative. Treatment Plan: Above Disposition: Admission Impression: Pancreatitis, chronic kidney disease This note was generated with [employer] dictation software. It may contain incorrect words, spelling, and punctuation that were not noted in review of the chart prior to signing ED Disposition - Plan for ED Patient: Referrals: Renzo Davidson DO [Primary Care Provider] -
[2020-10-13 14:35] LABS: White Blood Cells 0 SEEN /hpf (0-5)
[2020-10-13 14:37] LABS: Color, Urine Yellow (Yellow); Glucose, Dipstick 100 mg/dl (Normal); Ketone-Dipstick Negative (Negative); Leukocyte Esterase-Dipstick 25 /ul (Negative); Nitrite-Dipstick Negative (Negative); Occult Blood-Urine 150 /ul (Negative); Protein-Dipstick 100 mg/dl (Negative); Urine Bilirubin Dipstick Negative (Negative); Urine Clarity Sl. Cloudy (Clear); Urine Urobilinogen 1 mg/dl (Normal)
[2020-10-13 14:43] LABS: Bacteria 1+ /hpf (None Seen); Hyaline Cast 0-5 SEEN /lpf (0-5); Mucous, Urine 1+ /hpf (<or=2+); Red Blood Cells-Urine 0-5 SEEN /hpf (0-5); Squamous Epithelial Cells - UA 0-5 SEEN /hpf (0-5)
[2020-10-13] MEDS: Ondansetron 4 MG/2 ML Vial IV (15:00)
[2020-10-13] MEDS: Morphine 4 MG/ML Syringe IV (15:00)
--- NOTE | 2020-10-13 15:01 | NURSING ---
DR CHACHA VILLALBA
[2020-10-13 15:07] VITALS: BP 168/74; PULSE 74; PULSE 75; RESP 18; TEMP 36.6; O2SAT 95
--- NOTE | 2020-10-13 15:07 | NURSING ---
MED GAB ABD PAIN, PANCREATITIS CHACHA
--- NOTE | 2020-10-13 15:37 | PCM.HP.STD ---
History of Present Illness Date of Admission: 10/13/20 Mr. Arita is a 69 year old WM with a past medical history of PAF, CKD, diabetes, history of stroke, CAD, BONNIE, OA, PVD, upper GI bleed, HFpEF, anxiety and depression presented to the emergency department on 10/13/2020 with a chief complaint of weakness and the inability to eat anything for approximately 1 week now. He states that he has a queasy feeling in his stomach but denies nausea and has had no emesis. He reports one episode of diarrhea but states otherwise his bowel movements have been normal. He complains of 16 pounds of weight loss over the last week. He also reports that he had intermittent fevers with a temp of 99-101 over the past week but is afebrile in the emergency department. His vital signs are stable his sats are 94 to 95% on room air. His laboratory data shows a normal white count with a mildly reduced hemoglobin that appears to be baseline, an INR of 2.4 (patient is on Coumadin at baseline), mild hyponatremia with a sodium of 135, CKD with a creatinine of 2.13 that appears to be baseline when compared with previous laboratory data, mildly elevated LFTs that have been elevated on and off with review of previous laboratory data, normal bilirubin and alkaline phosphatase, but a mildly elevated lipase at 584. UA was done and shows a specific gravity of 1.020 indicating some dehydration and he has protein and glucose in his urine with 150 of occult blood. COVID-19 rapid was done and it was negative. With his elevated lipase and abdominal complaints a CT without contrast given his renal disease was done and showed no acute inflammatory process, gallstones but no adjacent stranding or distention of the gallbladder and bilateral renal cortical atrophy. The ER physician discussed the case with Dr. Luciano from general surgery and she recommended admission with antibiotics and HIDA scan to be done on Thursday. The patient was admitted to medical bed and started on Zosyn. HIDA scan was ordered for Thursday morning. Past Medical History Past Medical History (Chronic Problems): Chronic Problems (Last Reviewed 06/05/20 @ 08:52 by Payal STOCKTON, PA) Hypertension (Chronic) History of non-ST elevation myocardial infarction (NSTEMI) (Chronic 11/02/19) Acute on chronic diastolic (congestive) heart failure (Chronic) Atherosclerosis of coronary artery of [place] heart without angina pectoris (Chronic) Totally occluded right coronary artery with left to right collaterals, Mild left anterior descending artery disease, Mild left circumflex disease per heart cath 2004 Paroxysmal atrial fibrillation (Chronic) Peripheral vascular occlusive disease (Chronic) Right iliac stent 09/2018 History of CVA (cerebrovascular accident) (Chronic 10/2015) Left temporal area Hyperlipidemia (Chronic) 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 Xuan Faust, DO) Hypertension (Chronic) I10 Upper GI bleed (Resolved) Onset Date: 11/02/19 K92.2 History of non-ST elevation myocardial infarction (NSTEMI) (Chronic) Onset Date: 11/02/19 I25.2 Acute on chronic diastolic (congestive) heart failure (Chronic) I50.33 Atherosclerosis of coronary artery of [place] heart without angina pectoris (Chronic) I25.10 Totally occluded right coronary artery with left to right collaterals, Mild left anterior descending artery disease, Mild left circumflex disease per heart cath 2004 Paroxysmal atrial fibrillation (Chronic) I48.0 Peripheral vascular occlusive disease (Chronic) I73.9 Right iliac stent 09/2018 History of CVA (cerebrovascular accident) (Chronic) Onset Date: 10/2015 Z86.73 Left temporal area Hyperlipidemia (Chronic) E78.5 Claudication (Chronic) I73.9 Anxiety and depression F41.9, F32.9 CKD (chronic kidney disease) N18.9 Chronic renal failure N18.9 DDD (degenerative disc disease) Diabetic neuropathy E11.40 Marijuana use F12.90 Narcolepsy G47.419 Obstructive sleep apnea G47.33 Osteoarthritis M19.90 Type 2 diabetes mellitus E11.9 Stenosis of left subclavian artery I77.1 Atrial fibrillation, new onset Onset Date: 08/2019 I48.91 Lacunar infarct, acute (Inactive) I63.23 October 2015 Left temporal area Allergies metformin Adverse Reaction (Verified 10/13/20 12:34) Nausea/Vom/Diarrhea Home Medications: Ambulatory Orders Medication Instructions Recorded Pregabalin [Lyrica] 150 mg PO BID 11/06/15 glipizide 5 mg tablet 5 mg PO BID 90 Days #180 tab 12/24/18 tamsulosin 0.4 mg capsule 0.4 mg PO DAILY 90 Days #90 cap 12/24/18 cholecalciferol (vitamin D3) 50 2,000 unit PO DAILY 06/24/19 mcg (2,000 unit) tablet warfarin 2 mg tablet 2 mg PO DAILY #90 tab 09/20/19 methocarbamol 750 mg tablet 750 mg PO Q8H PRN 11/08/19 Aspirin 81 mg PO DAILY 03/22/20 atorvastatin 20 mg tablet 40 mg PO QHS tab 06/05/20 metoprolol tartrate 25 mg tablet 12.5 mg PO BID tab 06/05/20 Surgical History: Surgical History (Last Reviewed 10/13/20 @ 15:[address] Xuan Faust DO) History of angioplasty of peripheral vessel Onset Date: 09/2018 Z98.62 Left subclavian stent, Right iliac stent 10/02 History of left heart catheterization Onset Date: 11/13/04 Z98.890 CONCLUSION Normal borderline left ventricular systolic function. Totally occluded right coronary artery with left to right collaterals Mild left anterior descending artery disease. Mild left circumflex disease. Surgical History: - - PTCA of the left subclavaian artery by Dr. Nelson on 01/24 Psychiatric History: Anxiety, Depression Lives: With Family - Smoking Status: Former smoker Alcohol: Heavy - Patient drinks 4 ounces of hard liquor daily Drugs: Marijuana - *Family History Paternal Family History: Family History (Last Reviewed 10/13/20 @ 15:[address] Xuan Faust DO) Brother Cancer History Items: Heart Disease, - - His father in his mid 70s with dementia Maternal Family History: Family History (Last Reviewed 10/13/20 @ 15:[address] Xuan Faust DO) Brother Cancer History Items: Pulmonary Disease Sibling Family History: Family History (Last Reviewed 10/13/20 @ 15:[address] Xuan Faust DO) Brother Cancer History Items: - - He has a brother who with lung cancer. A sister with diabetes mellitus and rheumatoid arthritis. He has an older brother with dementia. Review of Systems Constitutional: Reports: Anorexia, Fever, Malaise, Weakness, Weight Change, Fatigue. Denies: Chills, Night Sweats Eyes: Denies: Blurred vision, Cataracts, Conjunctivae Inflammation, Double vision, Drainage, Eyelid Inflammation, Pain, Redness, Vision Change HEENT: Denies: Difficulty Hearing, Ear Pain, Eye Pain, Hard of Hearing, Head Aches, Nasal Congestion, Post Nasal Drip, Sinus Congestion, Sinus Drainage, Sore Throat, Visual Changes Cardiovascular: Denies: Chest Pain, Claudication, Chest Pressure, Chest Tightness, Edema, Heaviness, Light Headedness, Orthopnea, Palpitations, Paroxysmal Noc. Dyspnea, Syncope Respiratory: Denies: Cough, Hemoptysis, Pleuritic Pain, Shortness of Breath, Shortness of breath at rest, Shortness of breath upon exertion, Sputum production, Wheezing Gastrointestinal: Reports: Diarrhea, Nausea. Denies: Abdominal Pain, Constipation, Dyspepsia, Hematemesis, Hematochezia, Melena, Vomiting Genitourinary: Denies: Dysuria, Frequency, Hematuria, Hesitancy, Incontinence, Nocturia, Retention, Urgency Musculoskeletal: Denies: Back Pain, Joint Pain, Joint stiffness, Joint swelling, Joint Tenderness, Muscle pain, Neck Pain Skin: Denies: Dryness, Jaundice, Lesions, Pruritis, Rash, Skin Changes, Wounds Neurological: Denies: Balance problems, Blurred vision, Double vision, Change in Speech, Slurred speech, Confusion, Difficulty swallowing, Focal weakness, Headaches, Incoordination, Tingling, Tremor, Seizures Psychiatric: Reports: Anxiety, Depression Endocrine: Denies: Change in Body Habitus, Heat/ Cold Intolerance, Polydipsia, Polyuria Hematologic/ Lymphatic: Reports: Anemia. Denies: Adenopathy, Easy Bruising, Easy Bleeding, Petechiae, Purpura VTE Information - Inpt Only VTE Present on Admission: No VTE Mechan Device Prophylaxis: SCD's, None VTE Pharm Prophylaxis ordered?: Yes - Physical Exam Vitals/I&O's: Vital Signs Temp Pulse Resp BP Pulse Ox 98 F 75 18 168/74 H 95 10/13/20 15:07 10/13/20 15:07 10/13/20 15:07 10/13/20 15:07 10/13/20 15:07 Oxygen Delivery Method Room Air Weight: 85.275 kg Body Mass Index (BMI) 29.0 Finger Stick Blood Glucose 82 General: Alert, Oriented x3, Cooperative, No apparent distress, Well developed, Well nourished, - - Obese white male, sitting in bed, appears comfortable HEENT: Atraumatic, PERRLA, EOMI, Normocephalic, EAC Clear Oral: Moist Mucosa, No Gingival or Mucosal Lesions/ Ulcerations, Dry Mucosa, - - Mallampati 3 Neck: Supple, No JVD, Negative Carotid Bruits, Negative Hepatojugular Reflux, No Nodes, No Nuchal Rigidity, Trachea Midline, Thyroid Normal Size and Texture Lungs: Clear to auscultation, Normal air movement, No rhonchi, No wheeze, No rales Cardiovascular: Regular rate, Regular Rhythm, Normal S1, Normal S2, No murmurs, No Ectopic Activity, No rub noted, No Gallop Abdomen: Bowel Sounds Present, Soft, Non Tender, Non-Distended, No Hepato-splenomegaly, Obese, No hernias noted Extremities: No clubbing, No cyanosis, No edema, Capillary Refill Less than 3 Seconds, Peripheral Pulses Normal Skin: No rashes, No breakdown, - - No Musculoskeletal: No Tenderness to Palpation of Joints or Extremities, No Muscle Wasting, Arthritic Changes Lymphatic: No Cervical, Supraclavicular, or Inguinal Adenopathy Neurological: Cranial nerves II-XII grossly intact, Deep Tendon Reflexes 2+/4 and Symmetrical, Neuro grossly intact, Motor Exam 5/5 strength throughout, Muscle tone normal, Coordination normal Psych/Mental Status: Normal Affect, Appropriate Microbiology Past 72 Hours 10/13/20 13:20 Mucosa - Nose SARS-CoV-2 Antigen (Rapid) - Final Laboratory Results 10/13/20 13:15: WBC 5.3, RBC 4.18 L, Hgb 12.7 L, Hct 37.8 L, MCV 90.4, MCH 30.4, MCHC 33.6, RDW Std Deviation 45.8 H, RDW Coeff of [place] 13.6, Plt Count 181, MPV 9.9, Immature Gran % (Auto) 0.600, Neut % (Auto) 74.9 H, Lymph % (Auto) 12.8 L, [place] % (Auto) 11.5 H, Eos % (Auto) 0.0, Baso % (Auto) 0.2, Absolute Neuts (auto) 4.0, Absolute Lymphs (auto) 0.68 L, Nucleated RBC % 0 10/13/20 13:15: Sodium 135 L, Potassium 3.8, Chloride 103, Carbon Dioxide 26.0, Anion Gap 6, BUN 30 H, Creatinine 2.13 H, Estim Creat Clear Calc 29.74, Est GFR (MDRD) Af Amer 40 L, Est GFR (MDRD) Non-Af 33 L, BUN/Creatinine Ratio 14.1, Glucose 186 H, Calcium 8.1 L, Total Bilirubin 1.00, AST 51 H, ALT 66 H, Alkaline Phosphatase 102, Total Protein 7.2, Albumin 3.1 L, Globulin 4.1, Albumin/Globulin Ratio 0.8 L, Lipase 584 H 10/13/20 13:15: PT Cancelled, INR Cancelled 10/13/20 13:40: PT 25.8 H, INR 2.4 10/13/20 14:30: Urine Color Yellow, Urine Clarity Sl. Cloudy, Urine pH 5.0, Ur Specific [place] 1.020, Urine Protein 100 H, Urine Glucose (UA) 100 H, Urine Ketones Negative, Urine Occult Blood 150 H, Urine Nitrite Negative, Urine Bilirubin Negative, Urine Urobilinogen 1 H, Ur Leukocyte Esterase 25 H, Urine RBC 0-5 SEEN, Urine WBC 0 SEEN, Ur Squamous Epith Cells 0-5 SEEN, Urine Bacteria 1+, Hyaline Casts 0-5 SEEN, Urine Mucus 1+ Assessment/Plan All Active Problems (Last Reviewed 06/05/20 @ 08:52 by Payal Virgen PA, PA) Upper GI bleed (Resolved 11/02/19) Chest pain (Resolved) Dyspnea on exertion (Resolved) Expressive aphasia (Resolved) Hyperkalemia (Resolved) Transient hypotension (Resolved) Lipase elevation with subjective fevers -Dr. Luciano evaluated the patient in the emergency department and recommended admission with IV antibiotics -HIDA scan on Thursday -Dr. Trevizo also recommended a CT of his abdomen pelvis with IV contrast if we can improve his kidney function -Medically speaking I would recommend against this given his baseline CKD and it appears that his baseline creatinine is around 2 -Zosyn is initiated -N.p.o. for meds for now with LR at 100 cc/h -General surgery was consulted CKD stage IV -Serum creatinine is at baseline at 2.13 -Continue hydration with decreased p.o. intake -Monitor serum creatinine DM-2 -Hold oral antihyperglycemic's -SSI every 6 hours Transaminitis -These appear to have been fluctuating and are trending down since August -Liver was reported as normal on his CT abdomen pelvis without contrast -Repeat liver function in a.m. Mild chronic anemia -His hemoglobin appears to be close to baseline -Continue to monitor -Does have history of upper GI bleed in the past PAF -Patient is currently in normal sinus rhythm -Continue Coumadin at this time until surgical plan is made -Continue beta-nahomy 12.5 mg p.o. twice daily -Daily INR Hyperlipidemia Continue atorvastatin BPH Continue Flomax Neuropathy secondary to diabetes -Continue Lyrica Vitamin D deficiency Continue vitamin D supplementation History of stroke -No current issues -Continue aspirin -Continue risk factor modification BONNIE -Patient noncompliant with CPAP at home -May need nocturnal oxygen -Monitor saturations Daily alcohol use -Patient states last alcohol intake was approximately 7 days ago -Typically drinks 4 ounces of hard liquor a day -Patient denies any alcohol withdrawal in the past Marijuana use -Patient states this has been helping with his nausea Peripheral vascular disease Status post right iliac stent 10/11/2018 DVT prophylaxis -Patient currently fully anticoagulated with warfarin and INR is therapeutic CODE STATUS -Full code Inpatient E&M: 87869 Init Hosp L3
[2020-10-13 15:46] VITALS: BMI 30.6
--- NOTE | 2020-10-13 16:10 | CON.PCM_ITS ---
- Consult Date of Consult: 10/13/20 - Reason for Consult asked to see patient for abnormal CT scan finding of gallbladder Chief Complaint: generalized weakness, loss of appetite History of Present Illness: 69 y/o WM presents with complaint of generalized weakness and loss of appetite. He presents to [facility] ED. He denies abdominal pain, he denies nausea/emesis, he had one episode of loose stools this morning. Workup in the ED - Normal WBC, with slight left shift of differential, Hgb is 12.7. BUN/creat is 30/2.13 Also, AST/ALT mildly elevated at 51/66, wherein t bili is normal; lipase elevated at 584 CT scan of abdomen - Normal liver. Gallbladder is contracted with layering, dependent gallstones. No pericholecystic fluid/induration. Small locules of air in the nondependent gallbladder fundus on images 59-62. Normal spleen. Normal pancreas Past Medical History: Diabetes Diabetic neuropathy (HCC) chronic atrial fibrillation hypertension chronic kidney disease - stage 4 Peripheral arterial occlusive disease Coronary atherosclerosis CVA 2016 Intermittent claudication (HCC) Actinic keratoses Past Surgical History: cataract surgery cystoscopy left subclavian stent placed for subclavian steal syndrome placement of right iliac artery stent Medications: Pregabalin [Lyrica] 150 mg PO BID Lisinopril [Zestril] 10 mg PO DAILY Clopidogrel Bisulfate [Plavix] 75 mg PO DAILY amlodipine 5 mg tablet 5 mg PO DAILY atorvastatin 20 mg tablet 20 mg PO QHS glipizide 5 mg tablet 5 mg PO BID linagliptin 5 mg tablet 5 mg PO QHS tamsulosin 0.4 mg capsule 0.4 mg PO DAILY aspirin 325 mg tablet 325 mg PO DAILY cholecalciferol (vitamin D3) 2,000 2,000 unit PO DAILY hydrocodone 5 mg-acetaminophen 325 1 tab PO DAILY PRN tab Allergies: metformin Social history: TOB use former lives with Review of Systems: General - denies fevers, has decreased appetite Cardiovascular denies chest pain, has known CAD Pulmonary denies shortness of breath, denies coughing up blood Gastrointestinal as per HPI, denies blood in stools, denies nausea/emesis Neurological denies seizures, has had CVA in past Genitourinary denies burning with urination, denies blood in urine Hematological on chronic anticoagulation, denies spontaneous/prolonged bleeding Skin denies open non healing wounds Musculoskeletal has arthritis Endocrine has diabetes Psychological admits to marijuana use, denies hallucinations Physical examination: Vital signs Temp 98.4F HR 75 BP 168/74 RR 18 General WD/WN WM in no apparent distress, alert and oriented, not septic appearing HEENT Normocephalic. EOM intact with sclera clear and no icterus noted. Neck is supple with no jugular venous distention noted. Lungs normal respiratory excursion, no adventitial lung sounds. No labored breathing noted, such as retractions. No cough heard. Heart irregular rate Abdomen soft and benign and obese. difficult to determine if any masses or organomegaly due to body habitus Extremities no calf tenderness or swelling noted. No pitting edema noted. . Genitourinary/Rectal deferred Skin normal skin integrity. Neurological non focal. Psychological normal affect, patient is calm and appropriate Impression: abnormal findings of gallbladder on CT scan patient does not have abdominal pain Discussion/Plan: I have discussed the above with the patient. The patient has abnormal findings of the gallbladder on non contrast CT scan but no abdominal pain. He also presents with elevated LFTs which may be due to fatty infiltration of the gallbladder and elevated lipase - of unknown clinical significance. I do not believe that he has true air in the gallbladder wall, as this would represent a serious infection and patient clinically does not have the signs/symptoms of this. I would recommend dedicated US of the gallbladder and also HIDA scan for further evaluation. I have answered all questions to the patient?s satisfaction and the patient has no further questions. Will follow patient with you.
[2020-10-13 16:42] VITALS: O2SAT 91
[2020-10-13] MEDS: 0.9% Normal Saline 1,000 ML 100 ML IV (18:19)
[2020-10-13 18:41] LABS: Bedside Glucose 70 mg/dL (70-110)
[2020-10-13] MEDS: Dextrose 5%/0.9% NaCl 1,000 ML 100 ML IV (19:40)
[2020-10-13 19:42] VITALS: BP 149/57; PULSE 78; RESP 18; TEMP 38.1; O2SAT 95
[2020-10-13] MEDS: Acetaminophen 325 MG Tablet 650 MG PO (19:59)
[2020-10-13 21:44] VITALS: PULSE 80
[2020-10-13] MEDS: Pregabalin 75 MG Capsule 150 MG PO (21:44)
[2020-10-13] MEDS: Metoprolol Tartrate 25 MG Tablet 12.5 MG PO (21:44)
[2020-10-13] MEDS: Atorvastatin Calcium 40 MG Tablet PO (21:45)
[2020-10-13 22:26] LABS: Bedside Glucose 116 mg/dL (70-110)
[2020-10-14] VITALS (7 sets, daily range): BP systolic 115–162; BP diastolic 40–61; PULSE 63–80; RESP 16–18; TEMP 36.8–37.3; O2SAT 92–93
[2020-10-14 00:31] LABS: Bedside Glucose 111 mg/dL (70-110)
[2020-10-14 04:51] LABS: Absolute Neutrophil Count 2.8 X10^3/uL (2.0-7.7); Basophil# 0.01 X10^3/uL; Basophil% 0.2 % (0-1); Eosinophil# 0.02 X10^3/uL; Eosinophils% 0.4 % (0-5); Hematocrit 33.8 % (40-54); Hemoglobin 11.1 g/dL (13.0-16.5); Lymphocyte % 24.6 % (19-41); Mean Corp Hgb Conc 32.8 g/dL (32-36); Mean Corpuscular Hgb 29.8 pg (27.0-32.0); Mean Corpuscular Volume 90.6 fL (80-94); Mean Platelet Vol. 9.7 fl (6.2-12.0); Monocyte# 0.51 X10^3/uL; Monocyte% 11.4 % (0-10); NRBC Flagged by Analyzer 0 % (0-5); Neutrophil # 2.81 X10^3/uL (2.7-7.7); Neutrophil % 62.7 % (47-70); Platelet Count 185 K/mm3 (150-450); RBC Distribution Width CV 13.6 % (11.6-14.6); RBC Distribution Width SD 45.3 fl (35.1-43.9); Red Blood Count 3.73 M/mm3 (4.6-6.2); White Blood Count 4.5 K/mm3 (4.4-11.0)
[2020-10-14 05:08] LABS: ALB/GLOB Ratio 0.7 RATIO (0.9-2.4); AST(SGOT) 40 U/L (15-37); Alanine Aminotransfer ALT/SGPT 47 U/L (16-61); Albumin, Serum 2.4 g/dL (3.2-5.0); Alkaline Phosphatase 82 U/L (45-117); Anion Gap 7 (5-15); BUN 24 mg/dL (7-18); BUN/Creat Ratio 13.3 RATIO (10-20); Calcium,Total 7.5 mg/dL (8.5-10.1); Chloride 109 mmol/L (98-107); Creatinine, Serum 1.81 mg/dL (0.70-1.30); EST Glomerular Filtration Rate 39 mL/min (>60); Est Glom Filt Rate - Afr Amer 48 mL/min (>60); Globulin 3.5 g/dL (2.2-4.2); Glucose 104 mg/dL (74-106); Magnesium 2.1 mg/dL (1.6-2.6); Phosphorus 2.2 mg/dL (2.5-4.9); Potassium 3.5 mmol/L (3.5-5.1); Protein, Total 5.9 g/dL (6.4-8.2); Sodium Level 140 mmol/L (136-145)
[2020-10-14] MEDS: Dextrose 5%/0.9% NaCl 1,000 ML 100 ML IV ×2 (05:33→14:40)
[2020-10-14 05:42] LABS: International Normalized Ratio 2.7; Prothrombin Time (Protime)PT. 28.3 SECONDS (11.7-14.9)
[2020-10-14 05:51] LABS: Bedside Glucose 128 mg/dL (70-110)
--- NOTE | 2020-10-14 07:38 | PCM.PN.HOSP ---
Reason for Visit: Elevated lipase, LFTs and fever with abnormal gallbladder on CAT scan Subjective: Patient is a 69-year-old fever nausea and diarrhea for 8 days. Patient was found to have slightly elevated liver function test and lipsae. CT of the abdomen demonstrated Gallstones. There was further suggestion of emphysematous cholecystitis. Seen by general surgery, admitted to regular nursing floor for further management Objective: GENERAL: cooperative HEENT: Atraumatic; EYES; Anicteric, Normal Conjunctiva NECK; supple, normal thyroid, RESPIRATORY: Diminished to auscultation CARDIOVASCULAR: Regular S1 S2, GI: soft, normoactive bowel sounds, : No Renal angle tenderness; EXTREMITIES: No edema, no clubbing, MUSCULOSKELETAL: no muscle waisting NEURO: Awake; no lateralizing signs. SKIN: No Rash PSYCH; Flat affect Vitals/I&O's: Vital Signs Temp Pulse Resp BP Pulse Ox 98.3 F 63 18 115/40 L 93 10/14/20 01:55 10/14/20 01:55 10/14/20 01:55 10/14/20 01:55 10/14/20 07:12 Oxygen Delivery Method Room Air Weight: 90 kg Body Mass Index (BMI) 30.6 Finger Stick Blood Glucose 82 Intake and Output for Last 24 Hours 10/12/20 10/13/20 10/14/20 23:59 23:59 23:59 Intake Total 1204.42 / 1204.42 1038.33 / 1038.33 Output Total 250 / 250 Balance 1204.42 / 1204.42 788.33 / 788.33 Microbiology Past 72 Hours 10/13/20 13:20 Mucosa - Nose SARS-CoV-2 Antigen (Rapid) - Final Laboratory Results 10/13/20 13:15: WBC 5.3, RBC 4.18 L, Hgb 12.7 L, Hct 37.8 L, MCV 90.4, MCH 30.4, MCHC 33.6, RDW Std Deviation 45.8 H, RDW Coeff of Estela 13.6, Plt Count 181, MPV 9.9, Immature Gran % (Auto) 0.600, Neut % (Auto) 74.9 H, Lymph % (Auto) 12.8 L, [place] % (Auto) 11.5 H, Eos % (Auto) 0.0, Baso % (Auto) 0.2, Absolute Neuts (auto) 4.0, Absolute Lymphs (auto) 0.68 L, Nucleated RBC % 0 10/13/20 13:15: Sodium 135 L, Potassium 3.8, Chloride 103, Carbon Dioxide 26.0, Anion Gap 6, BUN 30 H, Creatinine 2.13 H, Estim Creat Clear Calc 29.74, Est GFR (MDRD) Af Amer 40 L, Est GFR (MDRD) Non-Af 33 L, BUN/Creatinine Ratio 14.1, Glucose 186 H, Calcium 8.1 L, Total Bilirubin 1.00, AST 51 H, ALT 66 H, Alkaline Phosphatase 102, Total Protein 7.2, Albumin 3.1 L, Globulin 4.1, Albumin/Globulin Ratio 0.8 L, Lipase 584 H 10/13/20 13:15: PT Cancelled, INR Cancelled 10/13/20 13:40: PT 25.8 H, INR 2.4 10/13/20 14:30: Urine Color Yellow, Urine Clarity Sl. Cloudy, Urine pH 5.0, Ur Specific [place] 1.020, Urine Protein 100 H, Urine Glucose (UA) 100 H, Urine Ketones Negative, Urine Occult Blood 150 H, Urine Nitrite Negative, Urine Bilirubin Negative, Urine Urobilinogen 1 H, Ur Leukocyte Esterase 25 H, Urine RBC 0-5 SEEN, Urine WBC 0 SEEN, Ur Squamous Epith Cells 0-5 SEEN, Urine Bacteria 1+, Hyaline Casts 0-5 SEEN, Urine Mucus 1+ 10/13/20 18:13: POC Glucose 70 10/13/20 22:03: POC Glucose 116 H 10/14/20 00:25: POC Glucose 111 H 10/14/20 04:06: WBC 4.5, RBC 3.73 L, Hgb 11.1 L, Hct 33.8 L, MCV 90.6, MCH 29.8, MCHC 32.8, RDW Std Deviation 45.3 H, RDW Coeff of Estela 13.6, Plt Count 185, MPV 9.7, Immature Gran % (Auto) 0.700, Neut % (Auto) 62.7, Lymph % (Auto) 24.6, [place] % (Auto) 11.4 H, Eos % (Auto) 0.4, Baso % (Auto) 0.2, Absolute Neuts (auto) 2.8, Absolute Lymphs (auto) 1.10, Nucleated RBC % 0 10/14/20 04:06: PT 28.3 H, INR 2.7 10/14/20 04:06: Sodium 140, Potassium 3.5, Chloride 109 H, Carbon Dioxide 24.0, Anion Gap 7, BUN 24 H, Creatinine 1.81 H, Estim Creat Clear Calc 35.00, Est GFR (MDRD) Af Amer 48 L, Est GFR (MDRD) Non-Af 39 L, BUN/Creatinine Ratio 13.3, Glucose 104, Calcium 7.5 L, Phosphorus 2.2 L, Magnesium 2.1, Total Bilirubin 1.00, AST 40 H, ALT 47, Alkaline Phosphatase 82, Total Protein 5.9 L, Albumin 2.4 L, Globulin 3.5, Albumin/Globulin Ratio 0.7 L 10/14/20 05:46: POC Glucose 128 H Current Medications Acetaminophen (Acetaminophen 325 Mg Tablet) 650 mg PO Q4H PRN PRN PRN Reason: fever, pain 1-10 Last Admin: 10/13/20 19:59 Dose: 650 mg Documented by: Al Hydroxide/Mg Hydroxide (Mag Hydrox/Al Hydrox/Simeth 30 Ml Udc) 30 ml PO Q6H PRN PRN PRN Reason: Gastric Burning Albuterol Sulfate (Albuterol 2.5 Mg/3 Ml Vial.Neb.) 2.5 mg INHALATION Q2H PRN PRN PRN Reason: Shortness of Breath/Wheezing Aspirin (Aspirin 81 Mg Tab.Chew) 81 mg PO DAILY@0800 [facility] Atorvastatin Calcium (Atorvastatin Calcium 40 Mg Tablet) 40 mg PO QHS [facility] Last Admin: 10/13/20 21:45 Dose: 40 mg Documented by: Hydralazine HCl (Hydralazine 20 Mg/Ml Vial) 10 mg IV Q4H PRN PRN PRN Reason: SBP > 160 Hydromorphone HCl (Hydromorphone 0.5 Mg/0.5 Ml Syringe) 0.5 mg IV Q4H PRN PRN PRN Reason: Pain Score 6-10 Sodium Chloride () 250 mls @ 15 mls/hr IV .[id number] PRN PRN Reason: Saline Flush Last Infusion: 10/13/20 18:25 Dose: Infused Documented by: Sodium Chloride () 250 mls @ 15 mls/hr IV .[id number] PRN PRN Reason: Additional IVPB Infusion Piperacillin Sod/Tazobactam (Sod 3.375 gm/ Sodium Chloride) 50 mls @ 12.5 mls/hr IV Q8 [facility] Last Admin: 10/14/20 05:32 Dose: 12.5 mls/hr Documented by: Dextrose/Sodium Chloride (Dextrose 5%/0.9% Nacl) 1,000 mls @ 100 mls/hr IV .Q10H [facility] Last Admin: 10/14/20 05:33 Dose: 100 mls/hr Documented by: Insulin Human Lispro (Insulin Lispro 100 Unit/Ml Insuln.Pen) 0 unit SC Q6 [facility]; Protocol Last Admin: 10/14/20 05:47 Dose: Not Given Documented by: Methocarbamol (Methocarbamol 750 Mg Tablet) 750 mg PO Q8H PRN PRN PRN Reason: spasm Metoprolol Tartrate (Metoprolol Tartrate 25 Mg Tablet) 12.5 mg PO BID [facility] Last Admin: 10/13/20 21:44 Dose: 12.5 mg Documented by: Ondansetron HCl (Ondansetron 4 Mg/2 Ml Vial) 4 mg IV Q8H PRN PRN PRN Reason: NAUSEA/VOMITING Pregabalin (Pregabalin 75 Mg Capsule) 150 mg PO BID [facility] Last Admin: 10/13/20 21:44 Dose: 150 mg Documented by: Sodium Chloride (0.9% Saline Lock 10 Ml Syringe) 10 - 40 ml IV UD PRN PRN Reason: SALINE FLUSH Tamsulosin HCl (Tamsulosin Hcl 0.4 Mg Capsule) 0.4 mg PO DAILY@1730 [facility] Warfarin Sodium (Jantoven 2 Mg Tablet) 2 mg PO DAILY@1700 [facility] STROKE Vital Signs/Narrative: Vital Signs Pulse Ox 10/14/20 07:12 93 Medical Necessity - Tobacco Use Smoking Status: Former smoker Assessment/Plan All Active Problems (Last Reviewed 10/13/20 @ 15:[address] Xuan Faust DO) Upper GI bleed (Resolved 11/02/19) Chest pain (Resolved) Dyspnea on exertion (Resolved) Expressive aphasia (Resolved) Hyperkalemia (Resolved) Transient hypotension (Resolved) Patient is a 69-year-old fever nausea and diarrhea for 8 days. Patient was found to have slightly elevated liver function test and lipsae. CT of the abdomen demonstrated Gallstones. There was further suggestion of emphysematous cholecystitis. Seen by general surgery, admitted to regular nursing floor for further management 1. Elevated lipase, LFTs and fever with abnormal gallbladder on CAT scan ?Patient admitted to regular nursing floor patient was started on Zosyn admitted to regular nursing floor consultation placed to Dr. Patti Hawkins with general surgery she recommended obtaining gallbladder ultrasound as well as HIDA scan (scheduled to be performed on 10/15/2020) 2. Diabetes mellitus type II -patient's oral hypoglycemics held. -Placed on long acting insulin, Accu-Cheks a.c. and at bedtime and covered with sliding scale insulin 3. Chronic kidney disease stage IV ?Kidney function at baseline 4. Paroxysmal A. fib ?Patient presented in sinus rhythm. On Coumadin with a therapeutic INR 5. Dyslipidemia -Patient is on statin therapy, continued at home dose . BPH ?Patient is on tamsulosin did continue 7. 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 History of previous CVA ?No residual effect 9. Vitamin D deficiency ?On vitamin D Tat[place] 10. Obstructive sleep apnea ?Patient is on CPAP at night 9. Chronic alcohol dependence ?Counseled on cessation patient placed on DT precautions 10. Peripheral arterial disease ?Status post right iliac stent placement on 10/11/2018 11. DVT prophylaxis ?On Coumadin with a therapeutic INR Advance planning; did discuss with the patientregarding advanced directives as well as CODE STATUS. Did explain the various scenarios involved ( FULL CODE, DNR CCA, DNR CCA with no intubation, and DNR CC and what each meant) patient elected code with CPR and intubation if needed. Order was placed. Time spent on discussion 18 minutes. Clinical Impression(s) from Imaging Studies Abdomen/Pelvis CT 10/13/20 13:02 IMPRESSION: 1. No acute inflammatory process. 2. Gallstones. Air could be in the nondependent gallbladder lumen or anterior/fundal wall. Given absent adjacent stranding and nondistended gallbladder, emphysematous cholecystitis is felt to be unlikely in the air may represent cholesterol deposits or air-filled stones. 3. Bilateral renal cortical atrophy. Left renal cysts. No comparison study. Recommend renal ultrasound for further characterization (nonemergent). Electronically Signed: Jarred Wadsworth MD ([place]) at 14:21 EST , Service support , Inpatient E&M: 46984 Subs Hosp L2 Procedures: 72000 Advncd Care Plan 30 Min
[2020-10-14] MEDS: Metoprolol Tartrate 25 MG Tablet 12.5 MG PO ×2 (08:32→21:38)
[2020-10-14] MEDS: Pregabalin 75 MG Capsule 150 MG PO ×2 (08:33→21:39)
[2020-10-14] MEDS: Aspirin 81 MG TAB.CHEW PO (08:33)
[2020-10-14 10:11] LABS: Lipase 260 U/L (73-393)
--- NOTE | 2020-10-14 10:59 | PCM.PN.SRG ---
Subjective: Patient denies abdominal pain, denies pain anywhere in the body states that he is breathing well, Denies head or neck pain - Physical Exam Vitals/I&O's: Vital Signs Temp Pulse Resp BP Pulse Ox 99.2 F H 76 16 143/60 H 92 10/14/20 08:15 10/14/20 08:32 10/14/20 08:15 10/14/20 08:15 10/14/20 08:15 Oxygen Delivery Method Room Air Weight: 90 kg Body Mass Index (BMI) 30.6 Finger Stick Blood Glucose 82 Intake and Output for Last 24 Hours 10/12/20 10/13/20 10/14/20 23:59 23:59 23:59 Intake Total 1204.42 / 1204.42 1038.33 / 1038.33 Output Total 250 / 250 Balance 1204.42 / 1204.42 788.33 / 788.33 General: Alert, Oriented x3 HEENT: Atraumatic Oral: Moist Mucosa Neck: Supple Lungs: Normal air movement Abdomen: Soft Microbiology Past 72 Hours 10/13/20 13:20 Mucosa - Nose SARS-CoV-2 Antigen (Rapid) - Final Laboratory Results 10/13/20 13:15: WBC 5.3, RBC 4.18 L, Hgb 12.7 L, Hct 37.8 L, MCV 90.4, MCH 30.4, MCHC 33.6, RDW Std Deviation 45.8 H, RDW Coeff of Estela 13.6, Plt Count 181, MPV 9.9, Immature Gran % (Auto) 0.600, Neut % (Auto) 74.9 H, Lymph % (Auto) 12.8 L, [place] % (Auto) 11.5 H, Eos % (Auto) 0.0, Baso % (Auto) 0.2, Absolute Neuts (auto) 4.0, Absolute Lymphs (auto) 0.68 L, Nucleated RBC % 0 10/13/20 13:15: Sodium 135 L, Potassium 3.8, Chloride 103, Carbon Dioxide 26.0, Anion Gap 6, BUN 30 H, Creatinine 2.13 H, Estim Creat Clear Calc 29.74, Est GFR (MDRD) Af Amer 40 L, Est GFR (MDRD) Non-Af 33 L, BUN/Creatinine Ratio 14.1, Glucose 186 H, Calcium 8.1 L, Total Bilirubin 1.00, AST 51 H, ALT 66 H, Alkaline Phosphatase 102, Total Protein 7.2, Albumin 3.1 L, Globulin 4.1, Albumin/Globulin Ratio 0.8 L, Lipase 584 H 10/13/20 13:15: PT Cancelled, INR Cancelled 10/13/20 13:40: PT 25.8 H, INR 2.4 10/13/20 14:30: Urine Color Yellow, Urine Clarity Sl. Cloudy, Urine pH 5.0, Ur Specific [place] 1.020, Urine Protein 100 H, Urine Glucose (UA) 100 H, Urine Ketones Negative, Urine Occult Blood 150 H, Urine Nitrite Negative, Urine Bilirubin Negative, Urine Urobilinogen 1 H, Ur Leukocyte Esterase 25 H, Urine RBC 0-5 SEEN, Urine WBC 0 SEEN, Ur Squamous Epith Cells 0-5 SEEN, Urine Bacteria 1+, Hyaline Casts 0-5 SEEN, Urine Mucus 1+ 10/13/20 18:13: POC Glucose 70 10/13/20 22:03: POC Glucose 116 H 10/14/20 00:25: POC Glucose 111 H 10/14/20 04:06: WBC 4.5, RBC 3.73 L, Hgb 11.1 L, Hct 33.8 L, MCV 90.6, MCH 29.8, MCHC 32.8, RDW Std Deviation 45.3 H, RDW Coeff of Estela 13.6, Plt Count 185, MPV 9.7, Immature Gran % (Auto) 0.700, Neut % (Auto) 62.7, Lymph % (Auto) 24.6, [place] % (Auto) 11.4 H, Eos % (Auto) 0.4, Baso % (Auto) 0.2, Absolute Neuts (auto) 2.8, Absolute Lymphs (auto) 1.10, Nucleated RBC % 0 10/14/20 04:06: PT 28.3 H, INR 2.7 10/14/20 04:06: Sodium 140, Potassium 3.5, Chloride 109 H, Carbon Dioxide 24.0, Anion Gap 7, BUN 24 H, Creatinine 1.81 H, Estim Creat Clear Calc 35.00, Est GFR (MDRD) Af Amer 48 L, Est GFR (MDRD) Non-Af 39 L, BUN/Creatinine Ratio 13.3, Glucose 104, Calcium 7.5 L, Phosphorus 2.2 L, Magnesium 2.1, Total Bilirubin 1.00, AST 40 H, ALT 47, Alkaline Phosphatase 82, Total Protein 5.9 L, Albumin 2.4 L, Globulin 3.5, Albumin/Globulin Ratio 0.7 L 10/14/20 04:06: Lipase 260 10/14/20 05:46: POC Glucose 128 H Current Medications Acetaminophen (Acetaminophen 325 Mg Tablet) 650 mg PO Q4H PRN PRN PRN Reason: fever, pain 1-10 Last Admin: 10/13/20 19:59 Dose: 650 mg Documented by: Al Hydroxide/Mg Hydroxide (Mag Hydrox/Al Hydrox/Simeth 30 Ml Udc) 30 ml PO Q6H PRN PRN PRN Reason: Gastric Burning Albuterol Sulfate (Albuterol 2.5 Mg/3 Ml Vial.Neb.) 2.5 mg INHALATION Q2H PRN PRN PRN Reason: Shortness of Breath/Wheezing Aspirin (Aspirin 81 Mg Tab.Chew) 81 mg PO DAILY@0800 [facility] Last Admin: 10/14/20 08:33 Dose: 81 mg Documented by: Atorvastatin Calcium (Atorvastatin Calcium 40 Mg Tablet) 40 mg PO QHS [facility] Last Admin: 10/13/20 21:45 Dose: 40 mg Documented by: Hydralazine HCl (Hydralazine 20 Mg/Ml Vial) 10 mg IV Q4H PRN PRN PRN Reason: SBP > 160 Hydromorphone HCl (Hydromorphone 0.5 Mg/0.5 Ml Syringe) 0.5 mg IV Q4H PRN PRN PRN Reason: Pain Score 6-10 Sodium Chloride () 250 mls @ 15 mls/hr IV .[id number] PRN PRN Reason: Saline Flush Last Infusion: 10/13/20 18:25 Dose: Infused Documented by: Sodium Chloride () 250 mls @ 15 mls/hr IV .[id number] PRN PRN Reason: Additional IVPB Infusion Piperacillin Sod/Tazobactam (Sod 3.375 gm/ Sodium Chloride) 50 mls @ 12.5 mls/hr IV Q8 [facility] Last Admin: 10/14/20 05:32 Dose: 12.5 mls/hr Documented by: Dextrose/Sodium Chloride (Dextrose 5%/0.9% Nacl) 1,000 mls @ 100 mls/hr IV .Q10H [facility] Last Admin: 10/14/20 05:33 Dose: 100 mls/hr Documented by: Insulin Human Lispro (Insulin Lispro 100 Unit/Ml Insuln.Pen) 0 unit SC Q6 [facility]; Protocol Last Admin: 10/14/20 05:47 Dose: Not Given Documented by: Methocarbamol (Methocarbamol 750 Mg Tablet) 750 mg PO Q8H PRN PRN PRN Reason: spasm Metoprolol Tartrate (Metoprolol Tartrate 25 Mg Tablet) 12.5 mg PO BID [facility] Last Admin: 10/14/20 08:32 Dose: 12.5 mg Documented by: Ondansetron HCl (Ondansetron 4 Mg/2 Ml Vial) 4 mg IV Q8H PRN PRN PRN Reason: NAUSEA/VOMITING Pregabalin (Pregabalin 75 Mg Capsule) 150 mg PO BID [facility] Last Admin: 10/14/20 08:33 Dose: 150 mg Documented by: Sodium Chloride (0.9% Saline Lock 10 Ml Syringe) 10 - 40 ml IV UD PRN PRN Reason: SALINE FLUSH Tamsulosin HCl (Tamsulosin Hcl 0.4 Mg Capsule) 0.4 mg PO DAILY@1730 [facility] Warfarin Sodium (Jantoven 2 Mg Tablet) 2 mg PO DAILY@1700 [facility] Medical Necessity - Tobacco Use Smoking Status: Former smoker Assessment/Plan All Active Problems (Last Reviewed 10/13/20 @ 15:[address] Xuan Faust, DO) Upper GI bleed (Resolved 11/02/19) Chest pain (Resolved) Dyspnea on exertion (Resolved) Expressive aphasia (Resolved) Hyperkalemia (Resolved) Transient hypotension (Resolved) Impression: abnormal CT scan of gallbladder FUO Discussion/Plan: awaiting NM study of gallbladder - unfortunately this cannot be done on the weekend can be on normal diet until then, unless other contraindication
[2020-10-14] MEDS: Insulin Lispro 100 UNIT/ML INSULN.PEN SC ×3 (11:41→21:49)
[2020-10-14 11:50] LABS: Bedside Glucose 177 mg/dL (70-110)
--- NOTE | 2020-10-14 12:48 | US_ITS ---
STUDY: ABDOMINAL ULTRASOUND - RIGHT UPPER QUADRANT REASON FOR VISIT: Male, 69 years old suspected cholecystitis TECHNIQUE: Ultrasound evaluation of the right upper quadrant was performed with real-time and static valentine-scale imaging. TECHNICAL QUALITY: Adequate. COMPARISON: Comparison is made with prior sonogram dated 03/19/[address] scan and abdomen dated 10/13/2020. FINDINGS: Liver: The liver is enlarged and measures 20.3 cm. There is increased echogenicity consistent with fatty infiltration. The bile ducts are within normal limits. There is hepatic color flow. The direction of portal flow is hepatopetal. There is no demonstrated mass lesion. Gallbladder: Normal distended gallbladder. The gallbladder wall measures 3.3 mm. There is a negative sonographic Yee''s sign. There is small amount of pericholecystic fluid. There are multiple echogenic structures within the gallbladder, consistent with multiple gallstones. Sludge is also seen within the gallbladder lumen. Common Bile Duct (C.B.D.): The common bile duct measures 4.3 mm. Pancreas: Normal size of the head, body and tail of the pancreas. There is normal echogenicity of the pancreas. There is no demonstrated pancreatic mass or cyst. Right Kidney: Normal size of the right kidney. The right kidney measures 11.4 cm x 4.6 cm x 5.9 cm. Normal renal cortex. The right cortex measures 1.3 cm. There is a 1.1 cm x 1.3 cm x 1.1 cm renal cysts. There is no right hydronephrosis. US/Abdomen Limited IMPRESSION: Hepatomegaly. Fatty infiltration of the liver. Multiple gallstones. Mild thickening of the gallbladder wall. Small amount of pericholecystic fluid. Electronically Signed: Hal Mckeon MD at 8:43 EST , Service support ,
[2020-10-14] MEDS: Jantoven 2 MG Tablet PO (17:20)
[2020-10-14] MEDS: Tamsulosin HCl 0.4 MG Capsule PO (17:22)
[2020-10-14 17:35] LABS: Bedside Glucose 167 mg/dL (70-110)
[2020-10-14] MEDS: Atorvastatin Calcium 40 MG Tablet PO (21:39)
[2020-10-14 21:56] LABS: Bedside Glucose 198 mg/dL (70-110)
[2020-10-15] VITALS (8 sets, daily range): BP systolic 112–174; BP diastolic 38–80; PULSE 66–75; RESP 18–20; TEMP 36.6–37.2; O2SAT 92–95
[2020-10-15] MEDS: Dextrose 5%/0.9% NaCl 1,000 ML 100 ML IV ×3 (00:47→23:48)
[2020-10-15 03:56] LABS: Hematocrit 32.3 % (40-54); Hemoglobin 10.8 g/dL (13.0-16.5); Mean Corp Hgb Conc 33.4 g/dL (32-36); Mean Corpuscular Hgb 29.8 pg (27.0-32.0); Mean Platelet Vol. 9.4 fl (6.2-12.0); Platelet Count 201 K/mm3 (150-450); RBC Distribution Width CV 13.3 % (11.6-14.6); RBC Distribution Width SD 43.8 fl (35.1-43.9); Red Blood Count 3.63 M/mm3 (4.6-6.2); White Blood Count 3.7 K/mm3 (4.4-11.0)
[2020-10-15 04:05] LABS: International Normalized Ratio 2.9; Prothrombin Time (Protime)PT. 30.3 SECONDS (11.7-14.9)
[2020-10-15 04:13] LABS: AST(SGOT) 38 U/L (15-37); Alanine Aminotransfer ALT/SGPT 40 U/L (16-61); Albumin, Serum 2.3 g/dL (3.2-5.0); Alkaline Phosphatase 77 U/L (45-117); Anion Gap 7 (5-15); BUN 16 mg/dL (7-18); BUN/Creat Ratio 9.6 RATIO (10-20); Bilirubin, Direct 0.34 mg/dL (0.00-0.30); Calcium,Total 7.5 mg/dL (8.5-10.1); Chloride 108 mmol/L (98-107); Creatinine, Serum 1.67 mg/dL (0.70-1.30); EST Glomerular Filtration Rate 43 mL/min (>60); Est Glom Filt Rate - Afr Amer 52 mL/min (>60); Estimated Creatinine Clearance 37.93 ml/min; Globulin 3.4 g/dL (2.2-4.2); Glucose 163 mg/dL (74-106); Potassium 3.4 mmol/L (3.5-5.1); Protein, Total 5.7 g/dL (6.4-8.2); Sodium Level 140 mmol/L (136-145)
[2020-10-15] MEDS: Insulin Lispro 100 UNIT/ML INSULN.PEN SC ×3 (06:28→21:48)
[2020-10-15 06:36] LABS: Bedside Glucose 158 mg/dL (70-110)
--- NOTE | 2020-10-15 07:26 | PCS.PANDOC ---
PANDEMIC DOCUMENTATION INITIATED: Date: 08/20/2020 Time:
--- NOTE | 2020-10-15 09:30 | NM_ITS ---
CLINICAL: Male, 69 years old patient with cholelithiasis, cholecystitis NUCLEAR BILIARY SCAN TECHNIQUE: Following the intravenous administration of 5.4 mCi of Tc Mebrofenin, hepatobiliary images was performed. COMPARISON STUDIES : NM - None. CR - Not available for review at this time. CT - CT of the abdomen pelvis dated 10/13/2020. MR - Not available for review at this time. US - Ultrasound of the abdomen dated 10/15/2020. FINDINGS: Relatively prompt and homogeneous radiopharmaceutical concentration is noted by a normal sized liver. There are no parenchymal defects noted.. Gallbladder activity is NOT identified after 120 minutes of imaging post radiopharmaceutical administration. Small bowel activity is identified at 8 minutes post radiopharmaceutical administration. Washout of the radiopharmaceutical by the hepatic parenchyma occurs in a normal fashion on qualitative inspection. NM/Hepatobilliary Img w/Pharm Int IMPRESSION: 1. Findings suggest sequela of cystic duct obstruction. This can be associated with acute cholecystitis versus chronic cholecystitis. 2. No evidence of common bile duct obstruction. Electronically Signed: Inez Patterson MD at 12:40 EST , Service support ,
--- NOTE | 2020-10-15 09:45 | CASEMGMT ---
RN CM Face to Face with patient for initial transition planning/care coordination assessment. RN CM introduced self and role at [facility]. Patient lying in bed, alert and oriented. Patient willing to participate in assessment and is able to answer all questions appropriately. Care providers, pharmacy, and demographics verified. Patient wishes to discharge home, denies need for home health at this time. Patient states he has no further needs or concerns at this time. CM to follow for discharge planning needs that may arise. PCP: Stuart Specialists: Abdelrahman, public transportation inspector; telly Nelson Preferred [facility]acy: [facility] Insurance: [employer] [facility] A Prescription Benefit: yes Living Will/HPOA: yes, Patricia Arita LNOK: Living Arrangements: patient lives with in a single story home with 4 steps and railing. Patient states he is independent at home. Transportation: self/ DME/HHC: patient states he has cane and cpap at home. Patient denies previous HHC. Disposition Plan: Patient to discharge home with family support and follow-up plans in place. Yolie SEVILLA, RN, CM
[2020-10-15 11:11] LABS: Bedside Glucose 114 mg/dL (70-110)
[2020-10-15] MEDS: Pregabalin 75 MG Capsule 150 MG PO ×2 (11:19→21:47)
[2020-10-15] MEDS: Metoprolol Tartrate 25 MG Tablet 12.5 MG PO ×2 (11:19→21:47)
[2020-10-15] MEDS: Aspirin 81 MG TAB.CHEW PO (11:20)
[2020-10-15] MEDS: Phytonadione (Vit K1) 5 MG TABLET PO (13:18)
[2020-10-15 15:04] LABS: International Normalized Ratio 3.3; Prothrombin Time (Protime)PT. 33.5 SECONDS (11.7-14.9)
--- NOTE | 2020-10-15 15:28 | PN_ITS ---
Reason for Visit: cholecystitis Subjective: Still with abdominal pain. Vitals/I&O's: Vital Signs Temp Pulse Resp BP Pulse Ox 36.8 C 70 20 H 174/62 H 94 10/15/20 11:11 10/15/20 11:19 10/15/20 11:11 10/15/20 11:11 10/15/20 11:11 Oxygen Delivery Method Room Air Weight: 90 kg Body Mass Index (BMI) 30.6 Finger Stick Blood Glucose 82 Intake and Output for Last 24 Hours 10/13/20 10/14/20 10/15/20 23:59 23:59 23:59 Intake Total 1204.42 / 1204.42 2050.00 / 205.00 2099 Output Total 500 / 500 Balance 1204.42 / 1204.42 1550.00 / 1550.00 2099 General: Alert, No apparent distress HEENT: Atraumatic, Normocephalic Oral: Moist Mucosa, No Gingival or Mucosal Lesions/ Ulcerations Neck: No Nodes, Thyroid Normal Size and Texture Lungs: Clear to auscultation, Normal air movement, No rhonchi, No wheeze, No rales Cardiovascular: Regular rate, Regular Rhythm, Normal S1, Normal S2, No murmurs Abdomen: Bowel Sounds Present, Soft, Non-Distended, No Hepato-splenomegaly, - - generalized abdominal pain Extremities: No edema, No Calf Tenderness Skin: No rashes, No breakdown Musculoskeletal: No Tenderness to Palpation of Joints or Extremities, No Muscle Wasting Psych/Mental Status: Normal Affect, Appropriate Microbiology Past 72 Hours 10/13/20 13:20 Mucosa - Nose SARS-CoV-2 Antigen (Rapid) - Final Laboratory Results 10/14/20 17:18: POC Glucose 167 H 10/14/20 21:43: POC Glucose 198 H 10/15/20 03:21: PT 30.3 H, INR 2.9 10/15/20 03:21: WBC 3.7 L, RBC 3.63 L, Hgb 10.8 L, Hct 32.3 L, MCV 89.0, MCH 29.8, MCHC 33.4, RDW Std Deviation 43.8, RDW Coeff of Estela 13.3, Plt Count 201, MPV 9.4 10/15/20 03:21: Sodium 140, Potassium 3.4 L, Chloride 108 H, Carbon Dioxide 25.0, Anion Gap 7, BUN 16, Creatinine 1.67 H, Estim Creat Clear Calc 37.93, Est GFR (MDRD) Af Amer 52 L, Est GFR (MDRD) Non-Af 43 L, BUN/Creatinine Ratio 9.6 L, Glucose 163 H, Calcium 7.5 L, Magnesium 2.0, Total Bilirubin 0.80, Direct Bilirubin 0.34 H, AST 38 H, ALT 40, Alkaline Phosphatase 77, Total Protein 5.7 L , Albumin 2.3 L, Globulin 3.4 10/15/20 06:25: POC Glucose 158 H 10/15/20 11:06: POC Glucose 114 H 10/15/20 14:15: PT 33.5 H, INR 3.3 Current Medications Acetaminophen (Acetaminophen 325 Mg Tablet) 650 mg PO Q4H PRN PRN PRN Reason: fever, pain 1-10 Last Admin: 10/13/20 19:59 Dose: 650 mg Documented by: Al Hydroxide/Mg Hydroxide (Mag Hydrox/Al Hydrox/Simeth 30 Ml Udc) 30 ml PO Q6H PRN PRN PRN Reason: Gastric Burning Albuterol Sulfate (Albuterol 2.5 Mg/3 Ml Vial.Neb.) 2.5 mg INHALATION Q2H PRN PRN PRN Reason: Shortness of Breath/Wheezing Aspirin (Aspirin 81 Mg Tab.Chew) 81 mg PO DAILY@0800 [facility] Last Admin: 10/15/20 11:20 Dose: 81 mg Documented by: Atorvastatin Calcium (Atorvastatin Calcium 40 Mg Tablet) 40 mg PO QHS [facility] Last Admin: 10/14/20 21:39 Dose: 40 mg Documented by: Hydralazine HCl (Hydralazine 20 Mg/Ml Vial) 10 mg IV Q4H PRN PRN PRN Reason: SBP > 160 Hydromorphone HCl (Hydromorphone 0.5 Mg/0.5 Ml Syringe) 0.5 mg IV Q4H PRN PRN PRN Reason: Pain Score 6-10 Sodium Chloride () 250 mls @ 15 mls/hr IV .[id number] PRN PRN Reason: Saline Flush Last Infusion: 10/13/20 18:25 Dose: Infused Documented by: Sodium Chloride () 250 mls @ 15 mls/hr IV .[id number] PRN PRN Reason: Additional IVPB Infusion Piperacillin Sod/Tazobactam (Sod 3.375 gm/ Sodium Chloride) 50 mls @ 12.5 mls/hr IV Q8 [facility] Last Infusion: 10/15/20 11:09 Dose: Infused Documented by: Dextrose/Sodium Chloride (Dextrose 5%/0.9% Nacl) 1,000 mls @ 100 mls/hr IV .Q10H [facility] Last Admin: 10/15/20 13:18 Dose: 100 mls/hr Documented by: Insulin Human Lispro (Insulin Lispro 100 Unit/Ml Insuln.Pen) 0 unit SC ACHS [facility]; Protocol Last Admin: 10/15/20 11:08 Dose: Not Given Documented by: Methocarbamol (Methocarbamol 750 Mg Tablet) 750 mg PO Q8H PRN PRN PRN Reason: spasm Metoprolol Tartrate (Metoprolol Tartrate 25 Mg Tablet) 12.5 mg PO BID [facility] Last Admin: 10/15/20 11:19 Dose: 12.5 mg Documented by: Ondansetron HCl (Ondansetron 4 Mg/2 Ml Vial) 4 mg IV Q8H PRN PRN PRN Reason: NAUSEA/VOMITING Pregabalin (Pregabalin 75 Mg Capsule) 150 mg PO BID [facility] Last Admin: 10/15/20 11:19 Dose: 150 mg Documented by: Sodium Chloride (0.9% Saline Lock 10 Ml Syringe) 10 - 40 ml IV UD PRN PRN Reason: SALINE FLUSH Tamsulosin HCl (Tamsulosin Hcl 0.4 Mg Capsule) 0.4 mg PO DAILY@1730 [facility] Last Admin: 10/14/20 17:22 Dose: 0.4 mg Documented by: Medical Necessity - Tobacco Use Smoking Status: Former smoker Assessment/Plan All Active Problems (Last Reviewed 10/13/20 @ 15:[address] Xuan Faust, DO) Upper GI bleed (Resolved 11/02/19) Chest pain (Resolved) Dyspnea on exertion (Resolved) Expressive aphasia (Resolved) Hyperkalemia (Resolved) Transient hypotension (Resolved) 1. cystic duct obstruction: no common bile duct obstruction. could be associated with acute v chronic cholecystitis. General surgery following. Tentatively planned for lap marcela on 10/16. on pip/tazo. 2. coagulopathy: 10/16 warfarin. received 5 vitamin K. recheck INR. may need additional vitamin K. 3. CKD3: stable 4. VTE prophylaxis: anticoagulated. Inpatient E&M: 53462 Subs Hosp L2
--- NOTE | 2020-10-15 16:28 | PN.SURG_ITS ---
Subjective: Reviewed US and HIDA scan, it appears that patient has cholecystitis, despite without symptoms I have recommended cholecystectomy Patient is on coumadin and refuses vitamin K for fear of kidney failure and does not want to go on dialysis - Physical Exam Vitals/I&O's: Vital Signs Temp Pulse Resp BP Pulse Ox 98.2 F 70 20 H 174/62 H 94 10/15/20 11:11 10/15/20 11:19 10/15/20 11:11 10/15/20 11:11 10/15/20 11:11 Oxygen Delivery Method Room Air Weight: 90 kg Body Mass Index (BMI) 30.6 Finger Stick Blood Glucose 82 Intake and Output for Last 24 Hours 10/13/20 10/14/20 10/15/20 23:59 23:59 23:59 Intake Total 1204.42 / 1204.42 2050.00 / 2050.00 2099 Output Total 500 / 500 Balance 1204.42 / 1204.42 1550.00 / 1550.00 2099 General: Alert, Oriented x3 Oral: Moist Mucosa Neck: Supple Lungs: Normal air movement Abdomen: Soft Microbiology Past 72 Hours 10/13/20 13:20 Mucosa - Nose SARS-CoV-2 Antigen (Rapid) - Final Laboratory Results 10/14/20 17:18: POC Glucose 167 H 10/14/20 21:43: POC Glucose 198 H 10/15/20 03:21: PT 30.3 H, INR 2.9 10/15/20 03:21: WBC 3.7 L, RBC 3.63 L, Hgb 10.8 L, Hct 32.3 L, MCV 89.0, MCH 29.8, MCHC 33.4, RDW Std Deviation 43.8, RDW Coeff of Estela 13.3, Plt Count 201, MPV 9.4 10/15/20 03:21: Sodium 140, Potassium 3.4 L, Chloride 108 H, Carbon Dioxide 25.0 , Anion Gap 7, BUN 16, Creatinine 1.67 H, Estim Creat Clear Calc 37.93, Est GFR (MDRD) Af Amer 52 L, Est GFR (MDRD) Non-Af 43 L, BUN/Creatinine Ratio 9.6 L, Glucose 163 H, Calcium 7.5 L, Magnesium 2.0, Total Bilirubin 0.80, Direct Biliru bin 0.34 H, AST 38 H, ALT 40, Alkaline Phosphatase 77, Total Protein 5.7 L, Albumin 2.3 L, Globulin 3.4 10/15/20 06:25: POC Glucose 158 H 10/15/20 11:06: POC Glucose 114 H 10/15/20 14:15: PT 33.5 H, INR 3.3 10/15/20 16:07: PT Pending, INR Pending Current Medications Acetaminophen (Acetaminophen 325 Mg Tablet) 650 mg PO Q4H PRN PRN PRN Reason: fever, pain 1-10 Last Admin: 10/13/20 19:59 Dose: 650 mg Documented by: Al Hydroxide/Mg Hydroxide (Mag Hydrox/Al Hydrox/Simeth 30 Ml Udc) 30 ml PO Q6H PRN PRN PRN Reason: Gastric Burning Albuterol Sulfate (Albuterol 2.5 Mg/3 Ml Vial.Neb.) 2.5 mg INHALATION Q2H PRN PRN PRN Reason: Shortness of Breath/Wheezing Aspirin (Aspirin 81 Mg Tab.Chew) 81 mg PO DAILY@0800 [facility] Last Admin: 10/15/20 11:20 Dose: 81 mg Documented by: Atorvastatin Calcium (Atorvastatin Calcium 40 Mg Tablet) 40 mg PO QHS [facility] Last Admin: 10/14/20 21:39 Dose: 40 mg Documented by: Hydralazine HCl (Hydralazine 20 Mg/Ml Vial) 10 mg IV Q4H PRN PRN PRN Reason: SBP > 160 Hydromorphone HCl (Hydromorphone 0.5 Mg/0.5 Ml Syringe) 0.5 mg IV Q4H PRN PRN PRN Reason: Pain Score 6-10 Sodium Chloride () 250 mls @ 15 mls/hr IV .[id number] PRN PRN Reason: Saline Flush Last Infusion: 10/13/20 18:25 Dose: Infused Documented by: Sodium Chloride () 250 mls @ 15 mls/hr IV .[id number] PRN PRN Reason: Additional IVPB Infusion Piperacillin Sod/Tazobactam (Sod 3.375 gm/ Sodium Chloride) 50 mls @ 12.5 mls/hr IV Q8 [facility] Last Infusion: 10/15/20 11:09 Dose: Infused Documented by: Dextrose/Sodium Chloride (Dextrose 5%/0.9% Nacl) 1,000 mls @ 100 mls/hr IV .Q10H [facility] Last Admin: 10/15/20 13:18 Dose: 100 mls/hr Documented by: Insulin Human Lispro (Insulin Lispro 100 Unit/Ml Insuln.Pen) 0 unit SC ACHS [facility]; Protocol Last Admin: 10/15/20 11:08 Dose: Not Given Documented by: Methocarbamol (Methocarbamol 750 Mg Tablet) 750 mg PO Q8H PRN PRN PRN Reason: spasm Metoprolol Tartrate (Metoprolol Tartrate 25 Mg Tablet) 12.5 mg PO BID [facility] Last Admin: 10/15/20 11:19 Dose: 12.5 mg Documented by: Ondansetron HCl (Ondansetron 4 Mg/2 Ml Vial) 4 mg IV Q8H PRN PRN PRN Reason: NAUSEA/VOMITING Pregabalin (Pregabalin 75 Mg Capsule) 150 mg PO BID [facility] Last Admin: 10/15/20 11:19 Dose: 150 mg Documented by: Sodium Chloride (0.9% Saline Lock 10 Ml Syringe) 10 - 40 ml IV UD PRN PRN Reason: SALINE FLUSH Tamsulosin HCl (Tamsulosin Hcl 0.4 Mg Capsule) 0.4 mg PO DAILY@1730 [facility] Last Admin: 10/14/20 17:22 Dose: 0.4 mg Documented by: Medical Necessity - Tobacco Use Smoking Status: Former smoker Assessment/Plan All Active Problems (Last Reviewed 10/13/20 @ 15:[address] Xuan Faust, DO) Upper GI bleed (Resolved 11/02/19) Chest pain (Resolved) Dyspnea on exertion (Resolved) Expressive aphasia (Resolved) Hyperkalemia (Resolved) Transient hypotension (Resolved) Impression: abnormal CT scan of gallbladder abnormal US and HIDA scan of gallbladder All of above pointing to cholecystitis with cholelithiasis Discussion/Plan: I have offered laparoscopic cholecystectomy to patient. He refuses reversal of coumadin, but can wait 3-4 days until INR normalizes. However, patient is also refusing surgery as he is concerned about the risks. I have counseled the patient as to the risks of the procedure, including but not limited to: infection, bleeding, injury to any blood vessels/nerves, scar tissue, injury to any intrabdominal organs, injury to kidney/ureters, injury to bowel/bladder, injury to the common bile duct/biliary tree, bile leakage, intraabdominal abscess/bleeding, hernias at incisional sites, wound infections, possible open procedure, complications of anesthesia, postoperative pneumonia/cardiac problems/blood clots, kidney failure, etc. the patient understands. As stated above, patient is concerned about risks and most definitely concerned about kidney failure requiring dialysis. I have offered other options - continued antibiotics, percutaneous cholecysto edilma to be done by interventional radiology, transfer to a higher level of care... Patient states that he will think about the above and discuss with his family. I have answered all questions to the patient?s satisfaction and the patient has no further questions.
[2020-10-15] MEDS: Tamsulosin HCl 0.4 MG Capsule PO (16:57)
[2020-10-15 17:10] LABS: International Normalized Ratio 3.2; Prothrombin Time (Protime)PT. 32.6 SECONDS (11.7-14.9)
[2020-10-15 17:21] LABS: Bedside Glucose 199 mg/dL (70-110)
[2020-10-15] MEDS: Atorvastatin Calcium 40 MG Tablet PO (21:47)
[2020-10-15] MEDS: 0.9% Saline Lock 10 ML Syringe IV (21:50)
[2020-10-15] MEDS: hydrALAZINE 20 MG/ML Vial 10 MG IV (21:50)
[2020-10-15 22:01] LABS: Bedside Glucose 176 mg/dL (70-110)
[2020-10-16] VITALS (17 sets, daily range): BP systolic 112–176; BP diastolic 57–80; PULSE 76–92; RESP 14–20; TEMP 36.3–36.7; O2SAT 92–97; BMI 30.1; BMI 30.6
--- NOTE | 2020-10-16 | GALL_PTH ---
PATIENT: TYRELL REYES LOC: MS3 U#:[id number] AGE/SX: 69/M ROOM: [facility] [place]13/[address]: Dr. Mynor Martinez DO : 1950 BED: 1 DIS: 10/17/2020 SPEC #: [id number] RECD: 10/17/20 07:35 STATUS: CAITLIN REQ #: [id number] MICHELLE: 10/16/20 00:[address]: Patti Luciano DEPT: SURGICAL PATHOLOGY RECD BY: Cesar Brunson ENTERED: 10/17/20 11:15 SP TYPE: GALLBLADDE OT DR: DO Dr. Xuan Mix DO Dr. Linda Wang, MD Dr. Michael Halko, DO Tissues: Gallbladder, NOS Procedures: Surgery Specimen Level III Comments: @ Ordering doctor for SUIII edited from to DR.LWANG Gordon BOWMAN at 10/17/20 1248 @ Submitting doctor edited from to DR.LWANG Gordon BOWMAN at 10/17/20 1248 HEADER OPERATION: Laparoscopic cholecystectomy PRE-OP DIAGNOSIS: Cholecystitis, cholelithiasis TISSUE SUBMITTED: Gallbladder and contents MICROSCOPIC DIAGNOSIS Gallbladder, cholecystectomy: Chronic cholecystitis and cholelithiasis. AM:joseph 10/18/2020 MICROSCOPIC DESCRIPTION Slides are reviewed. GROSS DESCRIPTION Received is one container labeled with the patient's name and designated gallbladder. The specimen consists of a gallbladder measuring 6.5 x 2.5 x 1.5 cm. The external surface is smooth and glistening. Focally, it is granular, hemorrhagic and contains cautery artifact. The lumen of the gallbladder contains green mucoid bile and multiple black calculi ranging in size from 0.1 to 1 cm in greatest dimension. The mucosa is bile-stained and without any mass lesions. The gallbladder wall averages 0.3 cm in thickness and is free of mass lesions. Front Desk Agent sections of the gallbladder and the cystic duct at margin of resection are submitted in one cassette. / AM:joseph 10/17/20 TC:3 CPT: 46569
[2020-10-16 06:28] LABS: International Normalized Ratio 1.7; Prothrombin Time (Protime)PT. 19.5 SECONDS (11.7-14.9)
[2020-10-16] MEDS: Insulin Lispro 100 UNIT/ML INSULN.PEN SC ×3 (06:37→22:12)
[2020-10-16 06:45] LABS: Bedside Glucose 191 mg/dL (70-110)
[2020-10-16 06:54] LABS: ALB/GLOB Ratio 0.6 RATIO (0.9-2.4); AST(SGOT) 39 U/L (15-37); Alanine Aminotransfer ALT/SGPT 42 U/L (16-61); Albumin, Serum 2.4 g/dL (3.2-5.0); Alkaline Phosphatase 87 U/L (45-117); Anion Gap 8 (5-15); BUN 11 mg/dL (7-18); BUN/Creat Ratio 6.8 RATIO (10-20); Calcium,Total 7.5 mg/dL (8.5-10.1); Chloride 106 mmol/L (98-107); Creatinine, Serum 1.62 mg/dL (0.70-1.30); EST Glomerular Filtration Rate 45 mL/min (>60); Est Glom Filt Rate - Afr Amer 54 mL/min (>60); Glucose 171 mg/dL (74-106); Potassium 3.3 mmol/L (3.5-5.1); Protein, Total 6.4 g/dL (6.4-8.2); Sodium Level 139 mmol/L (136-145)
--- NOTE | 2020-10-16 07:48 | PN_ITS ---
Progress Note Discussed with patient He wishes to proceed with surgery as soon as possible. Latest INR is 1.7 - adequate to proceed with surgery IMO I have once again discussed risks/benefits of surgery with patient, he understands and wishes to proceed. I have him tentatively scheduled for 13:30 today. He has been made NPO No changes from previous notes and above I have discussed the above with the patient and his . I have explained the procedure to the patient. I have counseled the patient as to the risks of the procedure, including but not limited to: infection, bleeding, injury to any blood vessels/nerves, scar tissue, injury to any intrabdominal organs, injury to kidney/ureters, injury to bowel/bladder, injury to the common bile duct/biliary tree, bile leakage, intraabdominal abscess/bleeding, hernias at incisional sites, wound infections, possible open procedure, complications of anesthesia, postoperative pneu monia/cardiac problems/blood clots. kidney failure etc. the patient understands. I have answered all questions to the patient?s satisfaction and the patient has no further questions. STROKE Vital Signs/Narrative: Vital Signs Pulse Ox 10/16/20 07:38 92
[2020-10-16] MEDS: Metoprolol Tartrate 25 MG Tablet 12.5 MG PO ×2 (07:57→22:10)
--- NOTE | 2020-10-16 09:16 | EKG12_ITS ---
Test Reason : Blood Pressure : / mmHG Vent. Rate : 071 BPM Atrial Rate : 071 BPM P-R Int : 152 ms QRS Dur : 100 ms QT Int : 416 ms P-R-T Axes : 050 -17 027 degrees QTc Int : 452 ms Normal sinus rhythm Normal ECG Confirmed by KAIN OSCAR, ALBINO ([id number]), deputy editor in chief ASAD PACHECO ([id number]) on 10/18/2020 9:56:01 AM Referred By: Confirmed By:ALBINO FINNEGAN MD
[2020-10-16] MEDS: Dextrose 5%/0.9% NaCl 1,000 ML 100 ML IV (09:52)
[2020-10-16 10:09] LABS: Hemoglobin A1c 8.5 % (3.8-5.6)
--- NOTE | 2020-10-16 10:39 | NURSING ---
ekg and recent lab work reviewed
[2020-10-16 12:01] LABS: Bedside Glucose 198 mg/dL (70-110)
--- NOTE | 2020-10-16 12:31 | NURSING ---
OFF UNIT FOR SURGERY. PRESENT
[2020-10-16] MEDS: 0.9% Normal Saline 1,000 ML 100 ML IV ×2 (12:32→15:00)
--- NOTE | 2020-10-16 14:56 | PCM.PN.HOSP ---
Reason for Visit: cholecystitis Subjective: Feeling well. Now in agreement with surgery. Vitals/I&O's: Vital Signs Temp Pulse Resp BP Pulse Ox 36.7 C 82 18 156/72 H 95 10/16/20 11:49 10/16/20 11:49 10/16/20 11:49 10/16/20 11:49 10/16/20 11:49 Oxygen Delivery Method Room Air Weight: 87.288 kg Body Mass Index (BMI) 30.1 Finger Stick Blood Glucose 82 Intake and Output for Last 24 Hours 10/14/20 10/15/20 10/16/20 23:59 23:59 23:59 Intake Total 2050.00 / 2050.00 3400 / 3400 1400 / 1400 Output Total 500 / 500 Balance 1550.00 / 1550.00 3400 / 3400 1400 / 1400 General: Alert, No apparent distress HEENT: Atraumatic, Normocephalic Oral: Moist Mucosa, No Gingival or Mucosal Lesions/ Ulcerations Neck: No Nodes, Thyroid Normal Size and Texture Lungs: Clear to auscultation, Normal air movement, No rhonchi, No wheeze Cardiovascular: Regular rate, Regular Rhythm, Normal S1, Normal S2, No murmurs Abdomen: Bowel Sounds Present, Soft, Non Tender, Non-Distended Extremities: No edema, No Calf Tenderness Skin: No rashes, No breakdown Musculoskeletal: No Tenderness to Palpation of Joints or Extremities, No Muscle Wasting Psych/Mental Status: Normal Affect, Appropriate Microbiology Past 72 Hours 10/13/20 13:20 Mucosa - Nose SARS-CoV-2 Antigen (Rapid) - Final Laboratory Results 10/15/20 14:15: PT 33.5 H, INR 3.3 10/15/20 16:07: PT 32.6 H, INR 3.2 10/15/20 17:08: POC Glucose 199 H 10/15/20 21:43: POC Glucose 176 H 10/16/20 05:51: PT 19.5 H, INR 1.7 10/16/20 05:51: Sodium 139, Potassium 3.3 L, Chloride 106, Carbon Dioxide 25.0, Anion Gap 8, BUN 11, Creatinine 1.62 H, Estim Creat Clear Calc 39.10, Est GFR (MDRD) Af Amer 54 L, Est GFR (MDRD) Non-Af 45 L, BUN/Creatinine Ratio 6.8 L, Glucose 171 H, Calcium 7.5 L, Total Bilirubin 1.30 H, AST 39 H, ALT 42, Alkaline Phosphatase 87, Total Protein 6.4, Albumin 2.4 L, Globulin 4.0, Albumin/Globulin Ratio 0.6 L 10/16/20 05:51: Hemoglobin A1c 8.5 H 10/16/20 05:51: APTT 38.0 H 10/16/20 06:36: POC Glucose 191 H 10/16/20 11:45: POC Glucose 198 H Current Medications Acetaminophen (Acetaminophen 325 Mg Tablet) 650 mg PO Q4H PRN PRN PRN Reason: fever, pain 1-10 Last Admin: 10/13/20 19:59 Dose: 650 mg Documented by: Al Hydroxide/Mg Hydroxide (Mag Hydrox/Al Hydrox/Simeth 30 Ml Udc) 30 ml PO Q6H PRN PRN PRN Reason: Gastric Burning Albuterol Sulfate (Albuterol 2.5 Mg/3 Ml Vial.Neb.) 2.5 mg INHALATION Q2H PRN PRN PRN Reason: Shortness of Breath/Wheezing Aspirin (Aspirin 81 Mg Tab.Chew) 81 mg PO DAILY@0800 [facility] Last Admin: 10/16/20 09:25 Dose: Not Given Documented by: Atorvastatin Calcium (Atorvastatin Calcium 40 Mg Tablet) 40 mg PO QHS [facility] Last Admin: 10/15/20 21:47 Dose: 40 mg Documented by: Hydralazine HCl (Hydralazine 20 Mg/Ml Vial) 10 mg IV Q4H PRN PRN PRN Reason: SBP > 160 Last Admin: 10/15/20 21:50 Dose: 10 mg Documented by: Hydromorphone HCl (Hydromorphone 0.5 Mg/0.5 Ml Syringe) 0.5 mg IV Q4H PRN PRN PRN Reason: Pain Score 6-10 Sodium Chloride () 250 mls @ 15 mls/hr IV .[id number] PRN PRN Reason: Saline Flush Last Infusion: 10/16/20 10:38 Dose: 15 mls/hr Documented by: Sodium Chloride () 250 mls @ 15 mls/hr IV .[id number] PRN PRN Reason: Additional IVPB Infusion Piperacillin Sod/Tazobactam (Sod 3.375 gm/ Sodium Chloride) 50 mls @ 12.5 mls/hr IV Q8 [facility] Last Admin: 10/16/20 13:30 Dose: 12.5 mls/hr Documented by: Dextrose/Sodium Chloride (Dextrose 5%/0.9% Nacl) 1,000 mls @ 100 mls/hr IV .Q10H [facility] Last Admin: 10/16/20 09:52 Dose: 100 mls/hr Documented by: Insulin Human Lispro (Insulin Lispro 100 Unit/Ml Insuln.Pen) 0 unit SC ACHS [facility]; Protocol Last Admin: 10/16/20 11:53 Dose: Not Given Documented by: Methocarbamol (Methocarbamol 750 Mg Tablet) 750 mg PO Q8H PRN PRN PRN Reason: spasm Metoprolol Tartrate (Metoprolol Tartrate 25 Mg Tablet) 12.5 mg PO BID [facility] Last Admin: 10/16/20 07:57 Dose: 12.5 mg Documented by: Ondansetron HCl (Ondansetron 4 Mg/2 Ml Vial) 4 mg IV Q8H PRN PRN PRN Reason: NAUSEA/VOMITING Pregabalin (Pregabalin 75 Mg Capsule) 150 mg PO BID [facility] Last Admin: 10/16/20 09:25 Dose: Not Given Documented by: Sodium Chloride (0.9% Saline Lock 10 Ml Syringe) 10 - 40 ml IV UD PRN PRN Reason: SALINE FLUSH Last Admin: 10/15/20 21:50 Dose: 10 ml Documented by: Tamsulosin HCl (Tamsulosin Hcl 0.4 Mg Capsule) 0.4 mg PO DAILY@1730 [facility] Last Admin: 10/15/20 16:57 Dose: 0.4 mg Documented by: STROKE Vital Signs/Narrative: Vital Signs Temp Pulse Resp BP Pulse Ox 10/16/20 11:49 36.7 C 82 18 156/72 H 95 Medical Necessity - Tobacco Use Smoking Status: Former smoker Assessment/Plan All Active Problems (Last Reviewed 10/13/20 @ 15:[address] Xuan Faust DO) Upper GI bleed (Resolved 11/02/19) Chest pain (Resolved) Dyspnea on exertion (Resolved) Expressive aphasia (Resolved) Hyperkalemia (Resolved) Transient hypotension (Resolved) 1. cystic duct obstruction: no common bile duct obstruction. could be associated with acute v chronic cholecystitis. General surgery following. Tentatively planned for lap marcela on 10/16. on pip/tazo. 2. coagulopathy: resolved after 10 vitamin K 3. CKD3: stable 4. VTE prophylaxis: anticoagulated. 5. pafib: resume OAC after surgery when ok with Gen Surgery. Continue metoprolol tartrate. Inpatient E&M: [id number] Subs Hosp L2
--- NOTE | 2020-10-16 14:58 | PCM.OPRPT ---
Report of Operation Date of Procedure: 10/16/20 Pre-Operative Diagnosis: cholelithiasis, cholecystitis Post-Operative Diagnosis: same Surgery/Procedure Performed:: laparoscopic cholecystectomy Description of Surgical Findings:: chronic cholecystitis with extensive omental adhesions to the free surface of the gallbladder, large liver with slightly enveloped gallbladder, changes of the liver consistent with fatty liver changes, large amount of adipose tissue intraabdominally data analysis manager: Sofia Sheets Type of Anesthesia:: General Anesthesiologist: Luis Antonio Banks Specimen's removed: gallbladder and contents Drains: 15 Fr passive drain Estimated Blood Loss (mL): < 10 ml Fluids Replaced: 1000 ml RL Description of Procedure: After informed consent was given, the patient was brought to the Operating Room. Appropriate time out protocol was followed. The patient was placed in the supine position. The patient was then placed under general endotracheal anesthesia by the anesthesia provider. The abdomen was then prepped with a sterile surgical skin preparation and sterile surgical drapes were placed. An area superior to the umbilical dimple was grasped with penetrating clamps and the skin and subcutaneous tissues were infiltrated with 0.25% marcaine with epinephrine. A skin incision was then made with a 15 blade scalpel. The anterior abdominal wall was elevated and a Veress needle was carefully inserted into the intraabdominal cavity. It was checked to be in the proper position with a normal saline drop test. A CO2 pneumoperitoneum was then created. Once this was achieved, then the Veress needle was removed and an 11mm trocar was placed in its stead. A 10mm laparoscope was then inserted into the trocar and careful attention was directed to the intraabdominal contents. There was no evidence of injury to any intraabdominal organs from insertion of the Veress needle or the trocar. Under direct visualization, a 5mm subxiphoid trocar and two lateral 5mm right subcostal trocars were placed. The skin and subcutaneous tissues at these sites were infiltrated with 0.25% marcaine with epinephrine prior to placement of these trocars. Attention was then directed to the right upper quadrant of the abdomen. There was a large amount of adhesions of the omentum to the free surface of the gallbladder and this was taken down by blunt dissection. Any hemorrhage was controlled with electrocoagulation, this took some time due to the extent of the adhesions. Graspers were placed in the lateral trocars to grasp the distal aspect of the gallbladder and direct it cephalad and to grasp the gallbladder at Bernard?s pouch and direct it laterally. Dissection then began on the proximal gallbladder continuing down to the area of the triangle of Calot to bluntly dissect out the cystic duct. The neck of the gallbladder was identified and blunt dissection continued to dissect out a segment of the cystic duct. A clip was then placed on the neck of the gallbladder. Two clips were placed proximally and one distally and the cystic duct was then transected. The cystic artery was visualized and bluntly isolated and then two clips were placed proximally and one clip distally and then it was transected between the proximal and distal clips. The gallbladder was then from the liver bed using electrocautery. Once from the liver bed, it was brought out via the umbilical port in an Endobag. It was then forwarded to pathology for analysis. The liver bed was carefully examined. There was no evidence of bile leakage or bleeding. Mireya was applied to the liver bed. The cystic duct stump and cystic artery stump had their clips intact and there was no evidence of bile leakage or bleeding. The remainder of the abdomen was grossly normal. A 15 mm passive round drain was placed in the inferior aspect of the liver with the drainage bed at the gallbladder fossa and brought out via one of the lateral trocars. It was sutured into place using nylon suture. The CO2 was released and all trocars removed intact. The periumbilical fascia was approximated with a [id number] 0 vicryl suture. All skin incision were closed with 4-0 monocryl in a subdermal fashion. Cavilol and Steristrips were used to reinforce the skin closure. Sterile dressings were applied to all wounds. Sponge, needle and instrument count was verified and correct at time of skin closure. The patient was extubated and brought to the Recovery Room in stable condition. - Complications none noted - Admit VTE Documentation VTE Present on Admission: Yes VTE Mechan Device Prophylaxis: SCD's
[2020-10-16] MEDS: Bupiv/Epi 0.25% 30 ML Vial (15:00)
[2020-10-16 15:31] LABS: Bedside Glucose 190 mg/dL (70-110)
--- NOTE | 2020-10-16 16:16 | PCM.PN.BLA ---
Progress Note Patient underwent laparoscopic cholecystectomy today, no complications noted will start on liquid diet and can advance as tolerated Anticipate d/c to home tomorrow he will be discharged with KI drain in place STROKE Vital Signs/Narrative: Vital Signs Temp Pulse Resp BP Pulse Ox 10/16/20 15:55 98.1 F 79 18 147/65 H 97 10/16/20 15:45 80 18 145/65 H 96 10/16/20 15:30 80 18 130/60 H 95 10/16/20 15:15 81 18 112/57 L 95 10/16/20 15:12 97.8 F 79 18 115/74 95
[2020-10-16] MEDS: 0.9% Saline Lock 10 ML Syringe IV ×3 (16:33→22:12)
[2020-10-16] MEDS: Ondansetron 4 MG/2 ML Vial IV (16:33)
[2020-10-16] MEDS: HYDROmorphone 0.5 MG/0.5 ML SYRINGE IV ×2 (16:33→22:12)
[2020-10-16 16:56] LABS: Bedside Glucose 200 mg/dL (70-110)
[2020-10-16] MEDS: hydrALAZINE 20 MG/ML Vial 10 MG IV ×2 (18:09→22:11)
[2020-10-16] MEDS: Pregabalin 75 MG Capsule 150 MG PO (22:10)
[2020-10-16 22:25] LABS: Bedside Glucose 219 mg/dL (70-110)
--- NOTE | 2020-10-16 22:46 | NURSING ---
assisted pt to stand at bedside and take a few steps with solutions engineer ruben. pt c/o feeling dizzy so did not ambulate any further. vss.
[2020-10-17] VITALS (8 sets, daily range): BP systolic 125–182; BP diastolic 47–80; PULSE 77–91; RESP 18; TEMP 36.4–36.6; O2SAT 92–95; BMI 30.6
[2020-10-17] MEDS: 0.9% Normal Saline 1,000 ML 100 ML IV (01:05)
[2020-10-17] MEDS: Acetaminophen 325 MG Tablet 650 MG PO ×2 (02:09→08:44)
[2020-10-17 06:00] LABS: International Normalized Ratio 1.4; Prothrombin Time (Protime)PT. 16.6 SECONDS (11.7-14.9)
[2020-10-17 06:21] LABS: ALB/GLOB Ratio 0.6 RATIO (0.9-2.4); AST(SGOT) 80 U/L (15-37); Alanine Aminotransfer ALT/SGPT 70 U/L (16-61); Albumin, Serum 2.4 g/dL (3.2-5.0); Alkaline Phosphatase 80 U/L (45-117); Anion Gap 8 (5-15); BUN 15 mg/dL (7-18); Calcium,Total 7.3 mg/dL (8.5-10.1); Chloride 108 mmol/L (98-107); EST Glomerular Filtration Rate 49 mL/min (>60); Est Glom Filt Rate - Afr Amer 59 mL/min (>60); Estimated Creatinine Clearance 42.23 ml/min; Glucose 180 mg/dL (74-106); Magnesium 1.5 mg/dL (1.6-2.6); Potassium 3.5 mmol/L (3.5-5.1); Protein, Total 6.4 g/dL (6.4-8.2); Sodium Level 138 mmol/L (136-145)
[2020-10-17] MEDS: Insulin Lispro 100 UNIT/ML INSULN.PEN SC ×2 (06:29→12:37)
[2020-10-17 07:10] LABS: Bedside Glucose 172 mg/dL (70-110)
[2020-10-17] MEDS: Aspirin 81 MG TAB.CHEW PO (08:25)
[2020-10-17] MEDS: Metoprolol Tartrate 25 MG Tablet 12.5 MG PO (08:25)
[2020-10-17] MEDS: hydrALAZINE 20 MG/ML Vial 10 MG IV (08:30)
[2020-10-17] MEDS: Pregabalin 75 MG Capsule 150 MG PO (08:30)
--- NOTE | 2020-10-17 08:44 | PCM.PN.SRG ---
Subjective: patient with appropriate incisional tenderness, KI output is serosanguinous - Physical Exam Vitals/I&O's: Vital Signs Temp Pulse Resp BP Pulse Ox 97.7 F L 83 18 182/80 H 95 10/17/20 08:22 10/17/20 08:30 10/17/20 08:22 10/17/20 08:30 10/17/20 08:22 Oxygen Flow Rate (L/min) 2 Oxygen Delivery Method Nasal Cannula Weight: 87.288 kg Body Mass Index (BMI) 30.1 Finger Stick Blood Glucose 82 Intake and Output for Last 24 Hours 10/15/20 10/16/20 10/17/20 23:59 23:59 23:59 Intake Total 3400 / 3400 3008.58 / 3008.58 1352.5 / 1352.5 Output Total 890 / 890 690 / 690 Balance 3400 / 3400 2118.58 / 2118.58 662.5 / 662.5 General: Alert, Oriented x3 Oral: Moist Mucosa Neck: Supple Lungs: Normal air movement Abdomen: Soft, - - dressings intact, KI output is serosanguinous Laboratory Results 10/16/20 05:51: Hemoglobin A1c 8.5 H 10/16/20 05:51: APTT 38.0 H 10/16/20 11:45: POC Glucose 198 H 10/16/20 15:28: POC Glucose 190 H 10/16/20 16:39: POC Glucose 200 H 10/16/20 21:57: POC Glucose 219 H 10/17/20 05:40: PT 16.6 H, INR 1.4 10/17/20 05:40: Sodium 138, Potassium 3.5, Chloride 108 H, Carbon Dioxide 22.0, Anion Gap 8, BUN 15, Creatinine 1.50 H, Estim Creat Clear Calc 42.23, Est GFR (MDRD) Af Amer 59 L, Est GFR (MDRD) Non-Af 49 L, BUN/Creatinine Ratio 10.0, Glucose 180 H, Calcium 7.3 L, Magnesium 1.5 L, Total Bilirubin 1.10 H, AST 80 H, ALT 70 H, Alkaline Phosphatase 80, Total Protein 6.4, Albumin 2.4 L, Globulin 4.0, Albumin/Globulin Ratio 0.6 L 10/17/20 06:27: POC Glucose 172 H Current Medications Acetaminophen (Acetaminophen 325 Mg Tablet) 650 mg PO Q4H PRN PRN PRN Reason: fever, pain 1-10 Last Admin: 10/17/20 02:09 Dose: 650 mg Documented by: Al Hydroxide/Mg Hydroxide (Mag Hydrox/Al Hydrox/Simeth 30 Ml Udc) 30 ml PO Q6H PRN PRN PRN Reason: Gastric Burning Albuterol Sulfate (Albuterol 2.5 Mg/3 Ml Vial.Neb.) 2.5 mg INHALATION Q2H PRN PRN PRN Reason: Shortness of Breath/Wheezing Aspirin (Aspirin 81 Mg Tab.Chew) 81 mg PO DAILY@0800 [facility] Last Admin: 10/17/20 08:25 Dose: 81 mg Documented by: Atorvastatin Calcium (Atorvastatin Calcium 40 Mg Tablet) 40 mg PO QHS [facility] Last Admin: 10/16/20 21:59 Dose: Not Given Documented by: Hydralazine HCl (Hydralazine 20 Mg/Ml Vial) 10 mg IV Q4H PRN PRN PRN Reason: SBP > 160 Last Admin: 10/17/20 08:30 Dose: 10 mg Documented by: Hydromorphone HCl (Hydromorphone 0.5 Mg/0.5 Ml Syringe) 0.5 mg IV Q4H PRN PRN PRN Reason: Pain Score 6-10 Last Admin: 10/16/20 22:12 Dose: 0.5 mg Documented by: Sodium Chloride () 250 mls @ 15 mls/hr IV .[id number] PRN PRN Reason: Saline Flush Last Infusion: 10/17/20 06:29 Dose: 0 mls/hr Documented by: Sodium Chloride () 250 mls @ 15 mls/hr IV .[id number] PRN PRN Reason: Additional IVPB Infusion Piperacillin Sod/Tazobactam (Sod 3.375 gm/ Sodium Chloride) 50 mls @ 12.5 mls/hr IV Q8 [facility] Last Admin: 10/17/20 06:29 Dose: 12.5 mls/hr Documented by: Dextrose/Sodium Chloride (Dextrose 5%/0.9% Nacl) 1,000 mls @ 100 mls/hr IV .Q10H [facility] Last Admin: 10/17/20 03:36 Dose: Not Given Documented by: Sodium Chloride () 1,000 mls @ 100 mls/hr IV .Q10H [facility] Last Admin: 10/17/20 01:05 Dose: 100 mls/hr Documented by: Insulin Human Lispro (Insulin Lispro 100 Unit/Ml Insuln.Pen) 0 unit SC ACHS [facility]; Protocol Last Admin: 10/17/20 06:29 Dose: 1 u Documented by: Methocarbamol (Methocarbamol 750 Mg Tablet) 750 mg PO Q8H PRN PRN PRN Reason: spasm Metoprolol Tartrate (Metoprolol Tartrate 25 Mg Tablet) 12.5 mg PO BID [facility] Last Admin: 10/17/20 08:25 Dose: 12.5 mg Documented by: Ondansetron HCl (Ondansetron 4 Mg/2 Ml Vial) 4 mg IV Q8H PRN PRN PRN Reason: NAUSEA/VOMITING Last Admin: 10/16/20 16:33 Dose: 4 mg Documented by: Pregabalin (Pregabalin 75 Mg Capsule) 150 mg PO BID [facility] Last Admin: 10/17/20 08:30 Dose: 150 mg Documented by: Sodium Chloride (0.9% Saline Lock 10 Ml Syringe) 10 - 40 ml IV UD PRN PRN Reason: SALINE FLUSH Last Admin: 10/16/20 22:12 Dose: 20 ml Documented by: Tamsulosin HCl (Tamsulosin Hcl 0.4 Mg Capsule) 0.4 mg PO DAILY@1730 [facility] Last Admin: 10/16/20 21:58 Dose: Not Given Documented by: Warfarin Sodium (Jantoven 2 Mg Tablet) 2 mg PO DAILY@1700 [facility] Medical Necessity - Tobacco Use Smoking Status: Former smoker Assessment/Plan All Active Problems (Last Reviewed 10/13/20 @ 15:[address] Xuan Faust DO) Upper GI bleed (Resolved 11/02/19) Chest pain (Resolved) Dyspnea on exertion (Resolved) Expressive aphasia (Resolved) Hyperkalemia (Resolved) Transient hypotension (Resolved) Impression: POD#1 s/p laparoscopic cholecystectomy Discussion/Plan: Can d/c to home can restart coumadin, if not already done Regular diet narcotic pain medication - sent to pharmacy of patient's choice as per registration patient to follow up with me 10/19/2020 in the office for removal of drain..
--- NOTE | 2020-10-17 08:47 | PCM.DC.GB ---
Discharge Diet: No Restrictions - avoid carbonated beverages for a couple of days, drink plenty of fluids Discharge Activity: Return to Normal Activity, May not drive while taking narcotic pain medications. Lifting Restrictions: no lifting greater than 20 pounds for two weeks Call your doctor if your incision/area has: Continuous Slow Oozing, Foul Smelling Discharge Additional Instructions: Recommended pain control regimen - May take 600 mg ibuprofen (Motrin) and then in 3-4 hours, may take 650 mg acetaminophen (Tylenol), then in 3-4 hours may take 600 mg ibuprofen, then in 3-4 hours may take 650 mg acetaminophen and so on for 2-3 days May take narcotic pain medication for pain that is not controlled by above and at night for comfort through the night Leave dressings in place Sponge bathe only, until drain is removed (which will be done Thursday) Avoid carbonated beverages for a couple of days as they may cause bloating which may cause you discomfort after abdominal surgery You may have bleeding at the dressing sites. If small amounts and not seeping through the dressing, do not worry - leave dressing in place. If starting to seep through the dressing, you may remove the dressing and take a clean wash clothe and apply direct pressure to the area for at least an hour and then apply a new clean bandaid at the site. If it still has not stopped bleeding, please call the office during the day or the [facility] custom feed mill operator helper at after hours and ask for Dr. Luciano Please call for a follow up appointment at the office to be seen on 10/19/2020 (for removal of drain), please call for time. Call . Allergies/Adverse Reactions: Allergies metformin Adverse Reaction (Verified 10/13/20 12:34) Nausea/Vom/Diarrhea Medications to take at Discharge Pregabalin [Lyrica] 150 mg PO BID 11/06/15 glipizide 5 mg tablet 5 mg PO BID 90 Days #180 tab 12/24/18 tamsulosin 0.4 mg capsule 0.4 mg PO DAILY 90 Days #90 cap 12/24/18 cholecalciferol (vitamin D3) 50 mcg (2,000 unit) tablet 2,000 unit PO DAILY 06/24/19 warfarin 2 mg tablet 2 mg PO DAILY #90 tab 09/20/19 methocarbamol 750 mg tablet 750 mg PO Q8H PRN 11/08/19 Aspirin 81 mg PO DAILY 03/22/20 atorvastatin 20 mg tablet 40 mg PO QHS tab 06/05/20 metoprolol tartrate 25 mg tablet 12.5 mg PO BID tab 06/05/20 Hydrocodone Bitart/Apap 5-325 [[place] 5MG-325MG] 1 tablet PO Q8H PRN PRN 5 Days #15 tablet 10/17/20 The following prescriptions were given: Hydrocodone Bitart/Apap 5-325 [[place] 5MG-325MG] 1 tablet PO Q8H PRN PRN 5 Days #15 tablet PRN Reason: Pain Score 4-10 Transmission Status: Received by [facility]/pharmacy #[id number] Primary Care Physician: Renzo Davidson DO [Primary Care Provider] - Test Results: Test results from this visit will be discussed in further detail at your follow-up appointment, if applicable.
--- NOTE | 2020-10-17 08:51 | DS.PCM_ITS ---
Discharge Summary Date of Admission: 10/13/20 Date of Discharge: 10/17/20 Summary: Fidel Arita is a 69 y/o WM admitted for generalized weakness, anorexia, low grade fevers for one week. He was admitted to the hospitalist service. Abdominal CT scan was done without contrast showed abnormality of the gallbladder. He was then awaiting formal US and HIDA scan over the weekend to be done on Thursday. US revealed cholelithiasis with cholecystitis and HIDA scan revealed on visualization of gallbladder consistent with cholecystitis. Patient had normalization of INR, as he was on coumadin for chronic afib, and underwent laparoscopic cholecystectomy on 10/16/2020. He tolerated procedure. RUQ abdominal drain left it for cholecystitis. Patient planned discharge to home on POD#1, tolerating diet. Will follow in the outpatient clinic within a few days for removal of the drain. - Physical Exam Vitals/I&O's: Vital Signs Temp Pulse Resp BP Pulse Ox 97.7 F L 83 18 182/80 H 95 10/17/20 08:22 10/17/20 08:30 10/17/20 08:22 10/17/20 08:30 10/17/20 08:22 Oxygen Flow Rate (L/min) 2 Oxygen Delivery Method Nasal Cannula Weight: 87.288 kg Body Mass Index (BMI) 30.1 Finger Stick Blood Glucose 82 Intake and Output for Last 24 Hours 10/15/20 10/16/20 10/17/20 23:59 23:59 23:59 Intake Total 3400 / 3400 3008.58 / 3008.58 1352.5 / 1352.5 Output Total 890 / 890 690 / 690 Balance 3400 / 3400 2118.58 / 2118.58 662.5 / 662.5 Laboratory Results 10/16/20 05:51: Hemoglobin A1c 8.5 H 10/16/20 05:51: APTT 38.0 H 10/16/20 11:45: POC Glucose 198 H 10/16/20 15:28: POC Glucose 190 H 10/16/20 16:39: POC Glucose 200 H 10/16/20 21:57: POC Glucose 219 H 10/17/20 05:40: PT 16.6 H, INR 1.4 10/17/20 05:40: Sodium 138, Potassium 3.5, Chloride 108 H, Carbon Dioxide 22.0, Anion Gap 8, BUN 15, Creatinine 1.50 H, Estim Creat Clear Calc 42.23, Est GFR (MDRD) Af Amer 59 L, Est GFR (MDRD) Non-Af 49 L, BUN/Creatinine Ratio 10.0, Glucose 180 H, Calcium 7.3 L, Magnesium 1.5 L, Total Bilirubin 1.10 H, AST 80 H, ALT 70 H, Alkaline Phosphatase 80, Total Protein 6.4, Albumin 2.4 L, Globulin 4.0, Albumin/Globulin Ratio 0.6 L 10/17/20 06:27: POC Glucose 172 H Current Medications Acetaminophen (Acetaminophen 325 Mg Tablet) 650 mg PO Q4H PRN PRN PRN Reason: fever, pain 1-10 Last Admin: 10/17/20 08:44 Dose: 650 mg Documented by: Al Hydroxide/Mg Hydroxide (Mag Hydrox/Al Hydrox/Simeth 30 Ml Udc) 30 ml PO Q6H PRN PRN PRN Reason: Gastric Burning Albuterol Sulfate (Albuterol 2.5 Mg/3 Ml Vial.Neb.) 2.5 mg INHALATION Q2H PRN PRN PRN Reason: Shortness of Breath/Wheezing Aspirin (Aspirin 81 Mg Tab.Chew) 81 mg PO DAILY@0800 [facility] Last Admin: 10/17/20 08:25 Dose: 81 mg Documented by: Atorvastatin Calcium (Atorvastatin Calcium 40 Mg Tablet) 40 mg PO QHS [facility] Last Admin: 10/16/20 21:59 Dose: Not Given Documented by: Hydralazine HCl (Hydralazine 20 Mg/Ml Vial) 10 mg IV Q4H PRN PRN PRN Reason: SBP > 160 Last Admin: 10/17/20 08:30 Dose: 10 mg Documented by: Hydromorphone HCl (Hydromorphone 0.5 Mg/0.5 Ml Syringe) 0.5 mg IV Q4H PRN PRN PRN Reason: Pain Score 6-10 Last Admin: 10/16/20 22:12 Dose: 0.5 mg Documented by: Sodium Chloride () 250 mls @ 15 mls/hr IV .[id number] PRN PRN Reason: Saline Flush Last Infusion: 10/17/20 06:29 Dose: 0 mls/hr Documented by: Sodium Chloride () 250 mls @ 15 mls/hr IV .[id number] PRN PRN Reason: Additional IVPB Infusion Piperacillin Sod/Tazobactam (Sod 3.375 gm/ Sodium Chloride) 50 mls @ 12.5 mls/hr IV Q8 [facility] Last Admin: 10/17/20 06:29 Dose: 12.5 mls/hr Documented by: Dextrose/Sodium Chloride (Dextrose 5%/0.9% Nacl) 1,000 mls @ 100 mls/hr IV .Q10H [facility] Last Admin: 10/17/20 03:36 Dose: Not Given Documented by: Sodium Chloride () 1,000 mls @ 100 mls/hr IV .Q10H [facility] Last Admin: 10/17/20 01:05 Dose: 100 mls/hr Documented by: Insulin Human Lispro (Insulin Lispro 100 Unit/Ml Insuln.Pen) 0 unit SC [facility]; Protocol Last Admin: 10/17/20 06:29 Dose: 1 u Documented by: Methocarbamol (Methocarbamol 750 Mg Tablet) 750 mg PO Q8H PRN PRN PRN Reason: spasm Metoprolol Tartrate (Metoprolol Tartrate 25 Mg Tablet) 12.5 mg PO BID [facility] Last Admin: 10/17/20 08:25 Dose: 12.5 mg Documented by: Ondansetron HCl (Ondansetron 4 Mg/2 Ml Vial) 4 mg IV Q8H PRN PRN PRN Reason: NAUSEA/VOMITING Last Admin: 10/16/20 16:33 Dose: 4 mg Documented by: Pregabalin (Pregabalin 75 Mg Capsule) 150 mg PO BID [facility] Last Admin: 10/17/20 08:30 Dose: 150 mg Documented by: Sodium Chloride (0.9% Saline Lock 10 Ml Syringe) 10 - 40 ml IV UD PRN PRN Reason: SALINE FLUSH Last Admin: 10/16/20 22:12 Dose: 20 ml Documented by: Tamsulosin HCl (Tamsulosin Hcl 0.4 Mg Capsule) 0.4 mg PO DAILY@1730 [facility] Last Admin: 10/16/20 21:58 Dose: Not Given Documented by: Warfarin Sodium (Jantoven 2 Mg Tablet) 2 mg PO DAILY@1700 [facility]
[2020-10-17 11:56] LABS: Bedside Glucose 195 mg/dL (70-110)
--- NOTE | 2020-10-17 15:00 | PCM.PN.HOSP ---
Subjective: Feels well. Abdominal pain better. Vitals/I&O's: Vital Signs Temp Pulse Resp BP Pulse Ox 36.6 C 80 18 125/47 H 92 10/17/20 14:28 10/17/20 14:28 10/17/20 14:28 10/17/20 14:28 10/17/20 14:28 Oxygen Flow Rate (L/min) [At 0 REST on Room Air] Oxygen Flow Rate (L/min) 2 Oxygen Delivery Method Room Air Weight: 87.288 kg Body Mass Index (BMI) 30.1 Finger Stick Blood Glucose 82 Intake and Output for Last 24 Hours 10/15/20 10/16/20 10/17/20 23:59 23:59 23:59 Intake Total 3400 / 3400 3008.58 / 3008.58 1402.5 / 1402.5 Output Total 890 / 890 690 / 690 Balance 3400 / 3400 2118.58 / 2118.58 712.5 / 712.5 General: Alert, No apparent distress HEENT: Atraumatic, Normocephalic Oral: Moist Mucosa, No Gingival or Mucosal Lesions/ Ulcerations Neck: No Nodes, Thyroid Normal Size and Texture Lungs: Clear to auscultation, Normal air movement, No rhonchi, No wheeze Cardiovascular: Regular rate, Regular Rhythm, Normal S1, Normal S2, No murmurs Abdomen: Bowel Sounds Present, Soft, Non Tender, Non-Distended, No Hepato-splenomegaly Extremities: No edema, No Calf Tenderness Skin: No rashes, No breakdown Psych/Mental Status: Normal Affect, Appropriate Laboratory Results 10/16/20 15:28: POC Glucose 190 H 10/16/20 16:39: POC Glucose 200 H 10/16/20 21:57: POC Glucose 219 H 10/17/20 05:40: PT 16.6 H, INR 1.4 10/17/20 05:40: Sodium 138, Potassium 3.5, Chloride 108 H, Carbon Dioxide 22.0, Anion Gap 8, BUN 15, Creatinine 1.50 H, Estim Creat Clear Calc 42.23, Est GFR (MDRD) Af Amer 59 L, Est GFR (MDRD) Non-Af 49 L, BUN/Creatinine Ratio 10.0, Glucose 180 H, Calcium 7.3 L, Magnesium 1.5 L, Total Bilirubin 1.10 H, AST 80 H, ALT 70 H, Alkaline Phosphatase 80, Total Protein 6.4, Albumin 2.4 L, Globulin 4.0, Albumin/Globulin Ratio 0.6 L 10/17/20 06:27: POC Glucose 172 H 10/17/20 11:49: POC Glucose 195 H Current Medications Acetaminophen (Acetaminophen 325 Mg Tablet) 650 mg PO Q4H PRN PRN PRN Reason: fever, pain 1-10 Last Admin: 10/17/20 08:44 Dose: 650 mg Documented by: Al Hydroxide/Mg Hydroxide (Mag Hydrox/Al Hydrox/Simeth 30 Ml Udc) 30 ml PO Q6H PRN PRN PRN Reason: Gastric Burning Albuterol Sulfate (Albuterol 2.5 Mg/3 Ml Vial.Neb.) 2.5 mg INHALATION Q2H PRN PRN PRN Reason: Shortness of Breath/Wheezing Aspirin (Aspirin 81 Mg Tab.Chew) 81 mg PO DAILY@0800 [facility] Last Admin: 10/17/20 08:25 Dose: 81 mg Documented by: Atorvastatin Calcium (Atorvastatin Calcium 40 Mg Tablet) 40 mg PO QHS [facility] Last Admin: 10/16/20 21:59 Dose: Not Given Documented by: Hydralazine HCl (Hydralazine 20 Mg/Ml Vial) 10 mg IV Q4H PRN PRN PRN Reason: SBP > 160 Last Admin: 10/17/20 08:30 Dose: 10 mg Documented by: Hydromorphone HCl (Hydromorphone 0.5 Mg/0.5 Ml Syringe) 0.5 mg IV Q4H PRN PRN PRN Reason: Pain Score 6-10 Last Admin: 10/16/20 22:12 Dose: 0.5 mg Documented by: Sodium Chloride () 250 mls @ 15 mls/hr IV .[id number] PRN PRN Reason: Saline Flush Last Infusion: 10/17/20 06:29 Dose: 0 mls/hr Documented by: Sodium Chloride () 250 mls @ 15 mls/hr IV .[id number] PRN PRN Reason: Additional IVPB Infusion Piperacillin Sod/Tazobactam (Sod 3.375 gm/ Sodium Chloride) 50 mls @ 12.5 mls/hr IV Q8 [facility] Last Infusion: 10/17/20 10:40 Dose: Infused Documented by: Dextrose/Sodium Chloride (Dextrose 5%/0.9% Nacl) 1,000 mls @ 100 mls/hr IV .Q10H [facility] Last Admin: 10/17/20 03:36 Dose: Not Given Documented by: Sodium Chloride () 1,000 mls @ 100 mls/hr IV .Q10H [facility] Last Admin: 10/17/20 01:05 Dose: 100 mls/hr Documented by: Insulin Human Lispro (Insulin Lispro 100 Unit/Ml Insuln.Pen) 0 unit SC [facility]; Protocol Last Admin: 10/17/20 12:37 Dose: 2 u Documented by: Methocarbamol (Methocarbamol 750 Mg Tablet) 750 mg PO Q8H PRN PRN PRN Reason: spasm Metoprolol Tartrate (Metoprolol Tartrate 25 Mg Tablet) 12.5 mg PO BID [facility] Last Admin: 10/17/20 08:25 Dose: 12.5 mg Documented by: Ondansetron HCl (Ondansetron 4 Mg/2 Ml Vial) 4 mg IV Q8H PRN PRN PRN Reason: NAUSEA/VOMITING Last Admin: 10/16/20 16:33 Dose: 4 mg Documented by: Pregabalin (Pregabalin 75 Mg Capsule) 150 mg PO BID [facility] Last Admin: 10/17/20 08:30 Dose: 150 mg Documented by: Sodium Chloride (0.9% Saline Lock 10 Ml Syringe) 10 - 40 ml IV UD PRN PRN Reason: SALINE FLUSH Last Admin: 10/16/20 22:12 Dose: 20 ml Documented by: Tamsulosin HCl (Tamsulosin Hcl 0.4 Mg Capsule) 0.4 mg PO DAILY@1730 [facility] Last Admin: 10/16/20 21:58 Dose: Not Given Documented by: Warfarin Sodium (Jantoven 2 Mg Tablet) 2 mg PO DAILY@1700 [facility] STROKE Vital Signs/Narrative: Vital Signs Temp Pulse Resp BP Pulse Ox Pulse Ox 10/17/20 14:28 36.6 C 80 18 125/47 H 92 10/17/20 12:44 93 10/17/20 11:15 36.4 C L 77 18 143/61 H 94 Medical Necessity - Tobacco Use Smoking Status: Former smoker Assessment/Plan All Active Problems (Last Reviewed 10/13/20 @ 15:[address] Xuan Faust DO) Upper GI bleed (Resolved 11/02/19) Chest pain (Resolved) Dyspnea on exertion (Resolved) Expressive aphasia (Resolved) Hyperkalemia (Resolved) Transient hypotension (Resolved) 1. chronic cholecysitis: s/p lap marcela on 10/16. follow up with general surgery as outpt. 2. coagulopathy: resolved after 10 vitamin K 3. CKD3: stable 4. VTE prophylaxis: anticoagulated. 5. pafib: resume OAC after surgery when ok with Gen Surgery. Continue metoprolol tartrate. Inpatient E&M: 11331 Subs Hosp L2
== END 2020-10-17 15:07 | disposition home or self-care (01) | DRG 417 ==
LOC: ED 13:24 → MS3 15:35
PROVIDERS: Anesthesiology; Internal Medicine; Surgery; Admitting Provider Internal Medicine; Emergency Provider Emergency Medicine; PCP Student in an Organized Health Care Education/Training Program
PROC: 0FT44ZZ Resection of Gallbladder, Percutaneous Endoscopic Approach (ICD-10-PCS; CPT 47610; principal; 2020-10-16 13:10)
DX: K80.11 Calculus of gallbladder with chronic cholecystitis with obstruction (principal); I50.33 Acute on chronic diastolic (congestive) heart failure; N18.4 Chronic kidney disease, stage 4 (severe); I13.0 Hypertensive heart and chronic kidney disease with heart failure and stage 1 through stage 4 chronic kidney disease, or unspecified chronic kidney disease; D68.9 Coagulation defect, unspecified; F10.20 Alcohol dependence, uncomplicated; E78.00 Pure hypercholesterolemia, unspecified; F12.90 Cannabis use, unspecified, uncomplicated; E11.22 Type 2 diabetes mellitus with diabetic chronic kidney disease; E86.0 Dehydration; K76.0 Fatty (change of) liver, not elsewhere classified; F41.9 Anxiety disorder, unspecified; F32.9 Major depressive disorder, single episode, unspecified; I25.10 Atherosclerotic heart disease of native coronary artery without angina pectoris; E11.51 Type 2 diabetes mellitus with diabetic peripheral angiopathy without gangrene; M19.90 Unspecified osteoarthritis, unspecified site; I48.0 Paroxysmal atrial fibrillation; E11.42 Type 2 diabetes mellitus with diabetic polyneuropathy; E55.9 Vitamin D deficiency, unspecified; E78.5 Hyperlipidemia, unspecified; G47.33 Obstructive sleep apnea (adult) (pediatric); T45.515A Adverse effect of anticoagulants, initial encounter; N40.0 Benign prostatic hyperplasia without lower urinary tract symptoms; I25.2 Old myocardial infarction; Z79.82 Long term (current) use of aspirin; Z79.899 Other long term (current) drug therapy; Z86.73 Personal history of transient ischemic attack (TIA), and cerebral infarction without residual deficits; Z79.01 Long term (current) use of anticoagulants; Z87.19 Personal history of other diseases of the digestive system; Z79.84 Long term (current) use of oral hypoglycemic drugs; Z87.891 Personal history of nicotine dependence
CPT/HCPCS: 36415; 74176; 76705; 78227; 80048; 80053; 80076; 81001; 82962; 83036; 83690; 83735; 84100; 85025; 85027; 85610; 85730; 87426; 88304; 93005; 99284; 99406; A9537; J7030; J7050; A4216; J2405

== ENCOUNTER 2020-11-22 12:27 | Outpatient (RCR) | payer OTHER, SELFPAY ==
[2020-06-05 08:45] VITALS: BMI 31.9
[2020-10-16 07:40] VITALS: BMI 30.1
[2020-11-22 13:14] LABS: International Normalized Ratio 2.2; Prothrombin Time (Protime)PT. 23.9 SECONDS (11.7-14.9)
== END 2020-11-22 18:00 | disposition home or self-care (01) ==
LOC: LAB 12:27
PROVIDERS: Internal Medicine Cardiovascular Disease; PCP Student in an Organized Health Care Education/Training Program; Referring Provider Physician Assistant Medical; Visit Provider Physician Assistant Medical
DX: I48.0 Paroxysmal atrial fibrillation (principal); Z79.01 Long term (current) use of anticoagulants
CPT/HCPCS: 36415; 85610

== ENCOUNTER → 2021-01-31 09:52 | Outpatient (CLI) | payer OTHER, SELFPAY ==
[2020-10-16 07:40] VITALS: BMI 30.1
[2021-01-31 10:45] LABS: Hematocrit 45.8 % (40-54); Mean Corp Hgb Conc 32.8 g/dL (32-36); Mean Corpuscular Hgb 30.1 pg (27.0-32.0); Mean Corpuscular Volume 91.8 fL (80-94); Mean Platelet Vol. 10.1 fl (6.2-12.0); Platelet Count 163 K/mm3 (150-450); RBC Distribution Width CV 13.1 % (11.6-14.6); RBC Distribution Width SD 44.2 fl (35.1-43.9); Red Blood Count 4.99 M/mm3 (4.6-6.2); White Blood Count 4.9 K/mm3 (4.4-11.0)
[2021-01-31 10:54] LABS: International Normalized Ratio 2.5; Prothrombin Time (Protime)PT. 25.9 SECONDS (11.7-14.9)
[2021-01-31 11:03] LABS: Hemoglobin A1c 7.9 % (3.8-5.6)
[2021-01-31 11:44] LABS: AST(SGOT) 51 U/L (15-37); Alanine Aminotransfer ALT/SGPT 56 U/L (16-61); Albumin, Serum 3.7 g/dL (3.2-5.0); Alkaline Phosphatase 106 U/L (45-117); Anion Gap 7 (5-15); BUN 25 mg/dL (7-18); BUN/Creat Ratio 11.8 RATIO (10-20); Bilirubin, Direct 0.14 mg/dL (0.00-0.30); Chloride 105 mmol/L (98-107); Creatinine, Serum 2.11 mg/dL (0.70-1.30); EST Glomerular Filtration Rate 33 mL/min (>60); Est Glom Filt Rate - Afr Amer 40 mL/min (>60); Globulin 3.9 g/dL (2.2-4.2); Glucose 229 mg/dL (74-106); Potassium 4.2 mmol/L (3.5-5.1); Protein, Total 7.6 g/dL (6.4-8.2); Sodium Level 138 mmol/L (136-145); Thyroid Stim Hormone (TSH) 0.68 uIU/mL (0.358-3.74)
[2021-01-31 11:47] LABS: Vitamin B12 350 pg/mL (211-911)
== END ==
PROVIDERS: PCP Student in an Organized Health Care Education/Training Program; Referring Provider Student in an Organized Health Care Education/Training Program; Visit Provider Student in an Organized Health Care Education/Training Program
DX: R41.3 Other amnesia (principal); E11.65 Type 2 diabetes mellitus with hyperglycemia; R53.83 Other fatigue; I48.0 Paroxysmal atrial fibrillation; Z79.01 Long term (current) use of anticoagulants; E11.22 Type 2 diabetes mellitus with diabetic chronic kidney disease; N18.30 Chronic kidney disease, stage 3 unspecified
CPT/HCPCS: 36415; 80048; 80076; 82607; 82746; 83036; 84443; 85027; 85610

== ENCOUNTER → 2021-04-09 14:05 | Outpatient (CLI) | payer OTHER, SELFPAY ==
[2021-02-22 10:31] VITALS: BMI 30.1
--- NOTE | 2021-04-09 14:08 | BD_ITS ---
STUDY: DUAL ENERGY X-RAY ABSORPTIOMETRY / DXA REASON FOR EXAM: Male, 70 years old. M85.89 TECHNIQUE: Bone Mineral Density (BMD) measurements of lumbar spine and bilateral hips were obtained. COMPARISON: None. FINDINGS: Lumbar Spine (L1-L4): g/cm2 (1.518) / T-score (4.2) / Z-score (5.2) Findings are suggestive of normal bone density with a low fracture risk. Left Femur Total: g/cm2 (1.076) / T-score (0.3) / Z-score (1.0) Left Femoral Neck: g/cm2 (0.890) / T-score (0.3) / Z-score (1.0) Right Femur Total: g/cm2 (1.056) / T-score (0.2) / Z-score (0.9) Right Femoral Neck: g/cm2 (0.934) / T-score (0.0) / Z-score (1.3) BD/Dexa Bone Density Study IMPRESSION: The patient is considered normal as outlined below according to World [employer] Organization (WHO) criteria with a low fracture risk. Reference Information: The T-score is the number of standard deviations above or below the standard which is normal for young adults at their peak bone mineral density. The World Health Organization (WHO) interprets the T-scores as follows: Above -1 Normal bone density Between -1 and -2.5 Osteopenia Equal to / or below -2.5 Osteoporosis As a practical clinical guideline, osteopenia may be graded as follows: Mild -1 through -1.5 Moderate -1.6 through -2.0 Severe -2.1 through -2.4 The Z-score is the number of standard deviations above or below age-matched controls. A Z-score of less than -1.5 would be considered abnormal. References: 1. NIH Osteoporosis and Related Bone Diseases www osteo.org 2. International Society for Clinical Densitometry www iscd.org 3. National Osteoporosis Foundation www nof.org Electronically Signed: Hal Mckeon MD at 21:05 EDT , Service support ,
== END ==
PROVIDERS: PCP Student in an Organized Health Care Education/Training Program; Referring Provider Student in an Organized Health Care Education/Training Program; Visit Provider Student in an Organized Health Care Education/Training Program
DX: Z13.820 Encounter for screening for osteoporosis (principal)
CPT/HCPCS: 77080

== ENCOUNTER → 2021-06-07 12:40 | Outpatient (CLI) | payer MEDICARE, OTHER, SELFPAY ==
[2021-06-07 13:07] LABS: Hematocrit 40.2 % (40-54); Hemoglobin 13.3 g/dL (13.0-16.5); Mean Corp Hgb Conc 33.1 g/dL (32-36); Mean Corpuscular Hgb 30.7 pg (27.0-32.0); Mean Corpuscular Volume 92.8 fL (80-94); Platelet Count 155 K/mm3 (150-450); RBC Distribution Width CV 13.3 % (11.6-14.6); RBC Distribution Width SD 45.1 fl (35.1-43.9); Red Blood Count 4.33 M/mm3 (4.6-6.2)
[2021-06-07 13:37] LABS: PTHIN 90.3 pg/mL (18.4-80.1)
[2021-06-07 13:41] LABS: Vitamin D,25 Hydroxy 52.7 ng/mL
[2021-06-07 13:50] LABS: ALB/GLOB Ratio 0.8 RATIO (0.9-2.4); AST(SGOT) 38 U/L (15-37); Alanine Aminotransfer ALT/SGPT 50 U/L (16-61); Albumin, Serum 3.3 g/dL (3.2-5.0); Alkaline Phosphatase 98 U/L (45-117); Anion Gap 4 (5-15); BUN 24 mg/dL (7-18); BUN/Creat Ratio 12.7 RATIO (10-20); Calcium,Total 8.5 mg/dL (8.5-10.1); Chloride 105 mmol/L (98-107); Cholesterol 138 mg/dL (200); Creatinine, Serum 1.89 mg/dL (0.70-1.30); EST Glomerular Filtration Rate 37 mL/min (>60); Est Glom Filt Rate - Afr Amer 45 mL/min (>60); Globulin 3.9 g/dL (2.2-4.2); Glucose 258 mg/dL (74-106); High Density Lipoprotein 42 mg/dL; Potassium 4.4 mmol/L (3.5-5.1); Protein, Total 7.2 g/dL (6.4-8.2); Sodium Level 137 mmol/L (136-145); Thyroid Stim Hormone (TSH) 0.73 uIU/mL (0.358-3.74); Triglycerides 297 mg/dL; Very Low Density Lipoprotein 59 mg/dL (5-40)
== END ==
PROVIDERS: PCP Student in an Organized Health Care Education/Training Program; Referring Provider Student in an Organized Health Care Education/Training Program; Visit Provider Student in an Organized Health Care Education/Training Program
DX: E11.65 Type 2 diabetes mellitus with hyperglycemia (principal); N18.30 Chronic kidney disease, stage 3 unspecified; E11.22 Type 2 diabetes mellitus with diabetic chronic kidney disease
CPT/HCPCS: 36415; 80053; 80061; 82306; 83970; 84443; 85027

== ENCOUNTER 2021-10-21 06:41 | Outpatient (CLI) | payer MEDICARE, OTHER, SELFPAY ==
[2021-10-21 07:21] LABS: Hematocrit 39.7 % (40-54); Hemoglobin 13.6 g/dL (13.0-16.5); Mean Corp Hgb Conc 34.3 g/dL (32-36); Mean Corpuscular Hgb 32.1 pg (27.0-32.0); Mean Corpuscular Volume 93.6 fL (80-94); Mean Platelet Vol. 10.4 fl (6.2-12.0); Platelet Count 176 K/mm3 (150-450); RBC Distribution Width CV 14.3 % (11.6-14.6); RBC Distribution Width SD 47.8 fl (35.1-43.9); Red Blood Count 4.24 M/mm3 (4.6-6.2); White Blood Count 7.8 K/mm3 (4.4-11.0)
[2021-10-21 07:50] LABS: AST(SGOT) 28 U/L (15-37); Alanine Aminotransfer ALT/SGPT 43 U/L (16-61); Albumin, Serum 3.4 g/dL (3.2-5.0); Alkaline Phosphatase 98 U/L (45-117); Anion Gap 6 (5-15); BUN 27 mg/dL (7-18); BUN/Creat Ratio 12.3 RATIO (10-20); Bilirubin, Direct 0.16 mg/dL (0.00-0.30); Calcium,Total 8.5 mg/dL (8.5-10.1); Chloride 105 mmol/L (98-107); EST Glomerular Filtration Rate 31 mL/min (>60); Est Glom Filt Rate - Afr Amer 38 mL/min (>60); Glucose 247 mg/dL (74-106); PSA,Total - Annual Screen 0.34 ng/mL (0.00-4.00); Phosphorus 3.6 mg/dL (2.5-4.9); Potassium 4.2 mmol/L (3.5-5.1); Protein, Total 7.4 g/dL (6.4-8.2); Sodium Level 137 mmol/L (136-145); Thyroid Stim Hormone (TSH) 2.07 uIU/mL (0.358-3.74)
[2021-10-21 07:57] LABS: Microalbumin,Random Urine 69.7 mg/L (NO RANGE EST.)
[2021-10-21 08:56] LABS: Hepatitis C Antibody Non-Reactive (Nonreactive)
== END 2021-10-21 23:59 | disposition home or self-care (01) ==
PROVIDERS: PCP Student in an Organized Health Care Education/Training Program; Referring Provider Nurse Practitioner Adult Health; Visit Provider Student in an Organized Health Care Education/Training Program
DX: N18.32 Chronic kidney disease, stage 3b (principal); E11.65 Type 2 diabetes mellitus with hyperglycemia; Z12.5 Encounter for screening for malignant neoplasm of prostate
CPT/HCPCS: 36415; 80048; 80076; 82043; 84100; 84153; 84443; 85027; 86803; G0103

== ENCOUNTER 2021-12-04 13:17 | Outpatient (RCR) | payer OTHER, SELFPAY ==
[2020-10-16 07:40] VITALS: BMI 30.1
[2021-12-04 13:45] LABS: International Normalized Ratio 1.7; Prothrombin Time (Protime)PT. 18.8 SECONDS (11.7-14.9)
== END 2021-12-04 18:00 | disposition home or self-care (01) ==
LOC: LAB 13:17
PROVIDERS: Internal Medicine Cardiovascular Disease; PCP Student in an Organized Health Care Education/Training Program; Referring Provider Physician Assistant Medical; Visit Provider Physician Assistant Medical
DX: I48.0 Paroxysmal atrial fibrillation (principal); Z79.01 Long term (current) use of anticoagulants
CPT/HCPCS: 36415; 85610

== ENCOUNTER 2021-12-11 14:53 | Outpatient (RCR) | payer MEDICARE, OTHER, SELFPAY ==
[2021-12-11 16:34] LABS: International Normalized Ratio 2.1
== END 2021-12-12 18:00 | disposition home or self-care (01) ==
LOC: LAB 14:53
PROVIDERS: PCP Student in an Organized Health Care Education/Training Program; Referring Provider Internal Medicine Cardiovascular Disease; Visit Provider Internal Medicine Cardiovascular Disease
DX: I48.0 Paroxysmal atrial fibrillation (principal); Z79.01 Long term (current) use of anticoagulants
CPT/HCPCS: 36415; 85610

== ENCOUNTER 2021-12-26 08:09 | Outpatient (CLI) | payer MEDICARE, OTHER, SELFPAY ==
--- NOTE | 2021-12-26 08:12 | CDU_ITS ---
Reason For Study: carotid stenosis Rt. Velocities/BP Lt. Velocities/BP Prox CCA 86.5/14.7 cm/sec. Prox CCA 58.6/10.2 cm/sec. Mid CCA 86.5/14.7 cm/sec. Mid CCA 68.4/14.6 cm/sec. Dist CCA 78.6/13.4 cm/sec. Dist CCA 56.4/14.6 cm/sec. Prox ICA 139.4/37.1 cm/sec. Prox ICA 69.1/21.2 cm/sec. Mid ICA 108.3/27.9 cm/sec. Mid ICA 97.4/29.8 cm/sec. Dist ICA 124.7/37.1 cm/sec. Dist ICA 93.7/29.8 cm/sec. Rt. ICA/CCA = 1.6. Lt. ICA/CCA = 1.4. Prox ECA 123.0/14.7 cm/sec. Prox ECA 148.5/13.3 cm/sec. Rt. Vert. 57.2/11.5 cm/sec. Lt. Vert. 34.4/10.2 cm/sec. Right Extracranial There is heterogeneous, irregular atherosclerotic plaque noted in the right common carotid artery. There is heterogeneous, irregular atherosclerotic plaque noted in the right internal carotid artery. There is heterogeneous, irregular atherosclerotic plaque noted in the right external carotid artery. Antegrade flow is noted in the right vertebral artery. Left Extracranial There is heterogeneous, irregular atherosclerotic plaque noted in the left common carotid artery. There is heterogeneous, irregular atherosclerotic plaque noted in the left internal carotid artery. There is heterogeneous, irregular atherosclerotic plaque noted in the left external carotid artery. Antegrade flow is noted in the left vertebral artery. Procedure Carotid Duplex 82004. This is a Carotid Duplex examination using B-mode, color flow and specral Doppler. The exam was diagnostic. Exam performed in department. VL/Carotid Duplex Ultrasound Interpretation Summary Mild (<50%) stenosis right extracranial internal carotid. Mild (<50%) stenosis left extracranial internal carotid. Flow within the vertebral arteries is antegrade bilaterally. Ordering Physician: Derrick Nelson Performed By: Alvarado Edwards RVT
--- NOTE | 2021-12-26 08:12 | AAVD_ITS ---
Reason For Study: S/P aortoiliac angiogram Aorta Measurements Aorta Doppler Measurements Proximal aorta measures1.26 x 1.35cm. in cross- Peak systolic flow velocities within the proximal sectional axis. aorta measure 56.9 cm/sec. Proximal aorta measures1.28cm. in longitudinal Peak systolic flow velocities within the mid aorta axis. measure 68.4 cm/sec. Mid aorta measures1.3 x 1.23cm. in cross-sectionalPeak systolic flow velocities within the distal axis. aorta measure 46.4 cm/sec. Mid aorta measures1.23cm. in longitudinal axis. Distal aorta measures2.1 x 2.17cm. in cross- sectional axis. Distal aorta measures2.07cm. in longitudinal axis. Left Iliac Artery Left iliac artery measures .51 x .7 cm. in the cross-sectional axis. Left iliac artery measures .78 cm. in the longitudinal axis. Peak systolic velocity in the left iliac artery measures 162.4 cm/sec. Right Iliac Artery Right iliac artery measures .65 x .78 cm. in the cross-sectional axis. Right iliac artery measures .73 cm. in the longitudinal axis. Peak systolic velocity in the right iliac artery measures 223.8 cm/sec. Procedure Aorta IVC Iliac vasculature or bypass grafts 41081. The exam was diagnostic. Exam performed in department. VL/Abd Aortic/IVC Duplex scan Interpretation Summary No evidence of aortic iliac aneurysm. Mild to moderate right common iliac steno sis with a PSV of 223. Ordering Physician: Derrick Nelson Performed By: Alvarado Edwards RVT
== END 2021-12-26 23:59 | disposition home or self-care (01) ==
PROVIDERS: PCP Student in an Organized Health Care Education/Training Program; Referring Provider Surgery Vascular Surgery; Visit Provider Surgery Vascular Surgery
DX: I70.213 Atherosclerosis of native arteries of extremities with intermittent claudication, bilateral legs (principal); I77.1 Stricture of artery; I48.0 Paroxysmal atrial fibrillation; Z48.812 Encounter for surgical aftercare following surgery on the circulatory system; I65.23 Occlusion and stenosis of bilateral carotid arteries; F17.200 Nicotine dependence, unspecified, uncomplicated; Z79.01 Long term (current) use of anticoagulants
CPT/HCPCS: 36415; 85610; 93880; 93978

== ENCOUNTER 2021-12-26 08:49 | Outpatient (RCR) | payer MEDICARE, OTHER, SELFPAY ==
[2021-12-26 09:31] LABS: International Normalized Ratio 2.5
== END 2021-12-26 18:00 | disposition home or self-care (01) ==
LOC: LAB 08:49
PROVIDERS: PCP Student in an Organized Health Care Education/Training Program; Referring Provider Internal Medicine Cardiovascular Disease; Visit Provider Internal Medicine Cardiovascular Disease
DX: I48.0 Paroxysmal atrial fibrillation (principal); Z79.01 Long term (current) use of anticoagulants
CPT/HCPCS: 36415; 85610

== ENCOUNTER → 2022-01-03 | Outpatient (CLI) | payer MEDICARE, OTHER, SELFPAY ==
--- NOTE | 2022-01-03 10:08 | ART_ITS ---
Reason For Study: s/p Aortoiliac Angiogram Procedure A bilateral lower extremity continuous wave Doppler with analog waveform analysis and ankle brachial indexes. Left Segmental Pressures Left posterior tibial artery = 175mmHg. Left dorsalis pedis artery = 129mmHg. Left digit = 68 mmHg. Right Segmental Pressures Right brachial= 134mmHg. Right posterior tibial artery = 128mmHg. Right dorsalis pedis artery = 130mmHg. Right digit = 96 mmHg. Indices The right ankle brachial index by the posterior tibial artery is 0.96. The right ankle brachial index by the dorsalis pedis is 0.97. The right digital-brachial index is 0.72. The left ankle brachial index by the posterior tibial artery is 1.31. The left ankle brachial index by the dorsalis pedis is 0.96. The left digital-brachial index is 0.51. VL/Ankle Brachial Index Interpretation Summary Bilateral lower extremities with biphasic flow noted with an MICHELLE 0.97 and 1.31. Digit brachial index of 0.72 and 0.51. Ordering Physician: Derrick Nelson Referring Physician: Derrick Nelson Performed By: Belinda Ruggiero RDCS/RVT
== END | disposition home or self-care (01) ==
LOC: CVS 10:06
PROVIDERS: PCP Student in an Organized Health Care Education/Training Program; Referring Provider Surgery Vascular Surgery; Visit Provider Surgery Vascular Surgery
DX: I70.213 Atherosclerosis of native arteries of extremities with intermittent claudication, bilateral legs (principal); Z48.812 Encounter for surgical aftercare following surgery on the circulatory system; I65.23 Occlusion and stenosis of bilateral carotid arteries; F17.200 Nicotine dependence, unspecified, uncomplicated
CPT/HCPCS: 93922; 93931

== ENCOUNTER 2022-01-24 06:27 | Outpatient (RCR) | payer MEDICARE, OTHER, SELFPAY ==
[2022-01-24 07:35] LABS: International Normalized Ratio 2.9
== END 2022-01-24 18:00 | disposition home or self-care (01) ==
LOC: LAB 06:27
PROVIDERS: PCP Student in an Organized Health Care Education/Training Program; Referring Provider Internal Medicine Cardiovascular Disease; Visit Provider Internal Medicine Cardiovascular Disease
DX: I48.0 Paroxysmal atrial fibrillation (principal); Z79.01 Long term (current) use of anticoagulants
CPT/HCPCS: 36415; 85610

== ENCOUNTER → 2022-02-12 | Outpatient (CLI) | payer MEDICARE, OTHER, SELFPAY | END | disposition home or self-care (01) | LOC: LAB.FUTURE 14:59 | PROVIDERS: PCP Student in an Organized Health Care Education/Training Program; Visit Provider Student in an Organized Health Care Education/Training Program | DX: E11.65 Type 2 diabetes mellitus with hyperglycemia (principal) ==

== ENCOUNTER 2022-02-26 12:37 | Outpatient (RCR) | payer MEDICARE, OTHER, SELFPAY ==
[2022-02-21 12:46] LABS: Prothrombin Time (Protime)PT. 39.9 SECONDS (11.7-14.9)
[2022-02-21 12:48] LABS: International Normalized Ratio 4.1
[2022-02-26 13:16] LABS: International Normalized Ratio 2.1; Prothrombin Time (Protime)PT. 22.8 SECONDS (11.7-14.9)
== END 2022-02-26 23:59 | disposition home or self-care (01) ==
LOC: LAB 12:37
PROVIDERS: PCP Student in an Organized Health Care Education/Training Program; Referring Provider Internal Medicine Cardiovascular Disease; Visit Provider Internal Medicine Cardiovascular Disease
DX: I48.0 Paroxysmal atrial fibrillation (principal); Z79.01 Long term (current) use of anticoagulants
CPT/HCPCS: 36415; 85610

== ENCOUNTER 2022-04-11 12:07 | Outpatient (RCR) | payer MEDICARE, OTHER, SELFPAY ==
[2022-04-11 13:03] LABS: Hematocrit 42.2 % (40-54); Hemoglobin 13.8 g/dL (13.0-16.5); Mean Corp Hgb Conc 32.7 g/dL (32-36); Mean Corpuscular Hgb 30.9 pg (27.0-32.0); Mean Corpuscular Volume 94.6 fL (80-94); Mean Platelet Vol. 10.5 fl (6.2-12.0); Platelet Count 164 K/mm3 (150-450); RBC Distribution Width CV 13.8 % (11.6-14.6); RBC Distribution Width SD 47.9 fl (35.1-43.9); Red Blood Count 4.46 M/mm3 (4.6-6.2); White Blood Count 6.4 K/mm3 (4.4-11.0)
[2022-04-11 13:08] LABS: International Normalized Ratio 2.5; Prothrombin Time (Protime)PT. 26.3 SECONDS (11.7-14.9)
[2022-04-11 13:09] LABS: Protein, Urine (Random) 36.4 mg/dL (<11.9); Protein:Creat Ratio 156 mg/g CRE (0-200)
[2022-04-11 13:21] LABS: Vitamin D,25 Hydroxy 60.1 ng/mL
[2022-04-11 13:32] LABS: Albumin, Serum 3.4 g/dL (3.2-5.0); BUN 28 mg/dL (7-18); BUN/Creat Ratio 13.1 RATIO (10-20); Calcium,Total 8.5 mg/dL (8.5-10.1); Chloride 106 mmol/L (98-107); Creatinine, Serum 2.14 mg/dL (0.70-1.30); EST Glomerular Filtration Rate 32 mL/min (>60); Est Glom Filt Rate - Afr Amer 39 mL/min (>60); Glucose 213 mg/dL (74-106); Phosphorus 2.9 mg/dL (2.5-4.9); Potassium 4.3 mmol/L (3.5-5.1); Sodium Level 138 mmol/L (136-145)
[2022-04-11 13:39] LABS: PTHIN 123.5 pg/mL (18.4-80.1)
== END 2022-04-13 03:00 | disposition home or self-care (01) ==
LOC: LAB 12:07
PROVIDERS: Nurse Practitioner Adult Health; PCP Student in an Organized Health Care Education/Training Program; Referring Provider Internal Medicine Cardiovascular Disease; Visit Provider Internal Medicine Cardiovascular Disease
DX: I48.0 Paroxysmal atrial fibrillation (principal); Z79.01 Long term (current) use of anticoagulants; N18.32 Chronic kidney disease, stage 3b; E55.9 Vitamin D deficiency, unspecified
CPT/HCPCS: 36415; 80069; 82306; 82570; 83970; 84156; 85027; 85610

== ENCOUNTER 2022-06-25 11:24 | Outpatient (RCR) | payer MEDICARE, OTHER, SELFPAY ==
[2022-06-25 13:28] LABS: International Normalized Ratio 2.9
== END 2022-06-25 18:00 | disposition home or self-care (01) ==
LOC: LAB 11:24
PROVIDERS: PCP Student in an Organized Health Care Education/Training Program; Referring Provider Internal Medicine Cardiovascular Disease; Visit Provider Internal Medicine Cardiovascular Disease
DX: I48.0 Paroxysmal atrial fibrillation (principal); Z79.01 Long term (current) use of anticoagulants
CPT/HCPCS: 36415; 85610

== ENCOUNTER → 2022-07-09 | Outpatient (CLI) | payer MEDICARE, OTHER, SELFPAY ==
[2022-07-09 10:50] LABS: Absolute Lymphocyte Count 2.11 X10^3/uL (0.83-4.51); Basophil# 0.03 X10^3/uL; Basophil% 0.4 % (0-1); Eosinophil# 0.34 X10^3/uL; Eosinophils% 4.8 % (0-5); Hematocrit 40.6 % (40-54); Hemoglobin 13.6 g/dL (13.0-16.5); Lymphocyte # 2.11 X10^3/ul (0.83-4.51); Lymphocyte % 29.7 % (19-41); Mean Corp Hgb Conc 33.5 g/dL (32-36); Mean Corpuscular Hgb 31.7 pg (27.0-32.0); Mean Corpuscular Volume 94.6 fL (80-94); Mean Platelet Vol. 10.1 fl (6.2-12.0); Monocyte% 8.4 % (0-10); NRBC Flagged by Analyzer 0 % (0-5); Neutrophil # 4.01 X10^3/uL (2.7-7.7); Neutrophil % 56.4 % (47-70); Platelet Count 186 K/mm3 (150-450); RBC Distribution Width CV 13.3 % (11.6-14.6); RBC Distribution Width SD 46.5 fl (35.1-43.9); Red Blood Count 4.29 M/mm3 (4.6-6.2); White Blood Count 7.1 K/mm3 (4.4-11.0)
[2022-07-09 11:22] LABS: BNP,B-Type NATRIURETIC PEPTIDE 40.7 pg/mL (0-100)
[2022-07-09 11:27] LABS: Anion Gap 5 (5-15); BUN 33 mg/dL (7-18); BUN/Creat Ratio 14.2 RATIO (10-20); Calcium,Total 8.7 mg/dL (8.5-10.1); Chloride 106 mmol/L (98-107); Creatinine, Serum 2.32 mg/dL (0.70-1.30); EST Glomerular Filtration Rate 29 mL/min (>60); Est Glom Filt Rate - Afr Amer 36 mL/min (>60); Glucose 219 mg/dL (74-106); Potassium 4.5 mmol/L (3.5-5.1); Sodium Level 137 mmol/L (136-145)
== END | disposition home or self-care (01) ==
LOC: LAB 09:58
PROVIDERS: PCP Student in an Organized Health Care Education/Training Program; Referring Provider Nurse Practitioner Gerontology; Visit Provider Nurse Practitioner Gerontology
DX: R06.00 Dyspnea, unspecified (principal)
CPT/HCPCS: 36415; 80048; 83880; 85025

== ENCOUNTER → 2022-07-21 | Outpatient (CLI) | payer MEDICARE, OTHER, SELFPAY ==
--- NOTE | 2022-07-21 06:28 | ECHOD_ITS ---
Version 2 Reason For Study: DYSPNEA` Procedure This was a 2D Doppler, Color Flow transthoracic echocardiogram. Exam performed in department. Left Ventricle Normal LV size. Moderate concentric left ventricular hypertrophy. Left ventricular systolic function is normal. The estimated ejection fraction is 60 %. Stage 1 diastolic dysfunction. No regional wall motion abnormalities noted. Right Ventricle Normal RV size. Normal systolic function. Atria Normal left atrium. Normal right atrium. Mitral Valve Normal mitral valve. Tricuspid Valve Normal tricuspid valve. Aortic Valve Normal aortic valve. Trisinus/trileaflet aortic valve. Pulmonic Valve The pulmonic valve is not well visualized. Great Vessels Normal aortic root. The pulmonary artery is normal size. Normal inferior vena cava. Pericardium/Pleural No pericardial effusion. MMode/2D Measurements & Calculations LVIDd: 4.4 cm IVSd: 1.3 cm Ao root diam: 3.5 cm LVIDs: 3.3 cm LVPWd: 1.6 cm FS: 24.3 % LAV(MOD-bp): 45.3 ml LVAd ap4: 27.4 cm2 LVAd ap2: 25.4 cm2 LAV(MOD-bp) Indexed: 22.6 ml/m2 LVLd ap4: 7.7 cm LVLd ap2: 7.4 cm LAV(MOD-sp2): 39.7 ml EDV(MOD-sp4): 81.6 ml EDV(MOD-sp2): 72.8 ml LAV(MOD-sp4): 39.1 ml EDV(sp4-el): 82.9 ml EDV(sp2-el): 73.8 ml LVAs ap4: 15.7 cm2 LVAs ap2: 14.0 cm2 LVLs ap4: 6.1 cm LVLs ap2: 6.5 cm ESV(MOD-sp4): 37.8 ml ESV(MOD-sp2): 25.5 ml ESV(sp4-el): 34.1 ml ESV(sp2-el): 25.4 ml EF(MOD-sp4): 53.7 % EF(MOD-sp2): 65.0 % EF(sp4-el): 58.8 % SV(MOD-sp4): 43.8 ml SV(MOD-sp2): 47.3 ml SV(sp4-el): 48.8 ml LA dimension(2D): 4.5 cm LA A4 area: 17.2 cm2 RA A4 area: 15.1 cm2 Time Measurements MV dec time: 0.25 sec Doppler Measurements & Calculations MV E max zachary: 68.7 cm/sec Lat Peak E' Zachary: 7.5 cm/sec Med Peak E' Zachary: 9.8 cm/sec MV A max zachary: 70.1 cm/sec E/E' lat: 9.2 E/E' med: 7.0 MV E/A: 0.98 MV V2 max: 70.8 cm/sec MV dec slope: 285.9 cm/sec2 Ao V2 max: 118.0 cm/sec MV max P.0 mmHg Ao max P.6 mmHg MV V2 mean: 47.0 cm/sec Ao V2 mean: 81.3 cm/sec MV mean P.96 mmHg Ao mean P.0 mmHg MV V2 VTI: 24.0 cm Ao V2 VTI: 28.5 cm LV V1 max: 79.6 cm/sec PA V2 max: 80.7 cm/sec LV V1 max P.5 mmHg PA V2 mean: 55.8 cm/sec LV V1 mean P.4 mmHg LV V1 mean: 54.2 cm/sec LV V1 VTI: 21.0 cm ECHO/Echo Complete Interpretation Summary Normal LV size. Left ventricular systolic function is normal. The estimated ejection fraction is 60 %. Stage 1 diastolic dysfunction. Moderate concentric left ventricular hypertrophy. Ordering Physician: Jolynn Davenport Referring Physician: Jolynn Davenport Performed By: Brianna James RCS
--- NOTE | 2022-07-21 18:37 | STRESSREP ---
Stress Test Report Pharmacologic myocardial perfusion stress test. 71-year-old man with a history of coronary artery disease. Stress protocol: Resting EKG demonstrates normal sinus rhythm with a rate of 64 bpm normal intervals are noted. Resting blood pressure is 142/62 mmHg. 0.4 mg of regadenoson was infused per usual protocol followed by rapid intravenous saline flush injection continuous EKG monitoring was performed. The maximum heart rate attained was noted to be 89 bpm which was 60% of max impacted heart rate the maximum workload was 1 metabolic equivalent. At rest there were no ST or T wave changes noted to suggest abnormal flow reserve and at peak infusion nonspecific ST changes were noted with did not meet any criteria for ischemia. Myocardial perfusion protocol. 11.3 mCi of technetium 99m sestamibi was injected at rest. 0.4 mg of regadenoson was infused per usual protocol. At peak infusion 34.6 mCi of technetium 99m sestamibi was injected stress images were obtained stress and rest images were reconstructed and compared in the short axis vertical long and horizontal long axis. Gated images were also obtained to Perfusion SPECT analysis: Review of the stress images demonstrate normal uptake of tracer noted in all areas of the myocardium. The resting images similarly demonstrate normal uptake of tracer noted in all areas of the myocardium. No areas of reversibility are noted suggest ischemia and no previous infarct is noted. Gated SPECT analysis: The gated ejection fraction is 67%. Conclusion: Normal pharmacologic myocardial perfusion stress test. Preserved ejection fraction.
== END | disposition home or self-care (01) ==
LOC: CVS 06:26
PROVIDERS: PCP Student in an Organized Health Care Education/Training Program; Referring Provider Nurse Practitioner Gerontology; Visit Provider Nurse Practitioner Gerontology
DX: R06.02 Shortness of breath (principal); R07.9 Chest pain, unspecified
CPT/HCPCS: 78452; 93017; 93306; A9500; A4216; J2785

== ENCOUNTER 2022-09-15 08:58 | Emergency (ER) | payer MEDICARE, OTHER, SELFPAY ==
[2022-09-15 08:58] VITALS: BP 125/78; PULSE 93; RESP 20; TEMP 36.6; O2SAT 97; BMI 30.5
--- NOTE | 2022-09-15 09:28 | EDS_ITS ---
HPI HPI - GI History of Present Illness Chief Complaint: Abd Pain Narrative Narrative: 71-year-old male presenting with nausea and intermittent abdominal pain. He states that on Thursday he started having sinus drainage and a mild headache. He states that the drainage made him nauseous. The sinus symptoms have gone away, but he still feels like he is nauseous. Has not been able to hold down much food. Yesterday had some og snaps and some applesauce which stayed down. He states he vomited when he ate Jell-O. He states he has been able to get some water into him. He states he has not been able to take his home medications secondary to his nausea and vomiting. He describes his pain is around the umbilicus. He states this does come and go. Currently he is pain-free. He denies constipation and diarrhea. He denies fever at home. No difficulty urinating. No chest pain, palpitations, shortness of breath. [facility] Medical History Acute on chronic diastolic (congestive) heart failure Anxiety and depression Atherosclerosis of coronary artery of [place] heart without angina pectoris Chronic renal failure CKD (chronic kidney disease) Claudication DDD (degenerative disc disease) Diabetic neuropathy History of CVA (cerebrovascular accident) (10/2015) History of non-ST elevation myocardial infarction (NSTEMI) (11/02/19) Hyperlipidemia Hypertension Lacunar infarct, acute Marijuana use Narcolepsy Obstructive sleep apnea Osteoarthritis Paroxysmal atrial fibrillation Peripheral vascular occlusive disease Stenosis of left subclavian artery Type 2 diabetes mellitus Upper GI bleed (11/02/19) Home Medications pregabalin 150 mg capsule 150 mg PO BID pain 11/06/15 [History Last Taken 10/12/20 22:00] tamsulosin 0.4 mg capsule 0.4 mg PO DAILY prostate 90 days #90 caps 12/24/18 [History Last Taken 10/13/20 10:00] cholecalciferol (vitamin D3) 50 mcg (2,000 unit) tablet 2,000 unit PO DAILY vitamin 06/24/19 [History Last Taken Unknown] methocarbamol 750 mg tablet 750 mg PO Q8H PRN spasm 11/08/19 [History Last Taken Unknown] aspirin 81 mg chewable tablet 81 mg PO DAILY heart health 03/22/20 [History Last Taken Unknown] semaglutide 3 mg tablet (Rybelsus) 14 mg PO DAILY 02/22/21 [History Last Taken Unknown] atorvastatin 40 mg tablet 40 mg PO QHS 01/06/22 [History Last Taken Unknown] empagliflozin 25 mg tablet (Jardiance) 25 mg PO DAILY 01/06/22 [History Last Taken Unknown] glipizide 5 mg tablet See Rx Instructions PO BID diabetes 90 days 01/06/22 [Hist ory Last Taken Unknown] metoprolol succinate 25 mg tablet,extended release 24 hr 25 mg PO DAILY 01/06/22 [History Last Taken Unknown] warfarin 1 mg tablet 1 mg PO DAILY 01/06/22 [History Last Taken Unknown] hydrocodone-acetaminophen 5-325mg 5mg-325mg 1 tab PO QHS PRN 07/09/22 [History Last Taken Unknown] ondansetron 4 mg disintegrating tablet 4 mg PO Q8H PRN nausea and vomiting #14 tabs 09/15/22 [Rx Last Taken Unknown] Allergy/AdvReac Type Severity Reaction Status Date / Time metformin AdvReac Nausea/Vom/ Verified 09/15/22 09:00 Diarrhea Family History Brother Cancer Surgical History History of angioplasty of peripheral vessel (09/2018) History of cholecystectomy (~10/2020) History of left heart catheterization (11/13/04) Social History Smoking Status: Former smoker quit date: 09/14/97 Tobacco: How many years used: 45 how long ago did patient quit smokin years ago alcohol intake: current alcohol intake frequency: 0-2 drinks per day Alcohol type: hard liquor substance use type: marijuana caffeine: Yes Type: carbonated beverages Number of servings: 1 ROS ROS ED Constitutional Constitutional ED: Denies chills or fever(s) ENT ENT ED: Denies rhinorrhea Cardiovascular Cardiovascular: Denies chest pain or palpitations Respiratory/Chest Respiratory/Chest: Denies cough or dyspnea Gastrointestinal Gastrointestinal: Reports abdominal pain, nausea and vomiting; Denies constipation or diarrhea Genitourinary Genitourinary ED: Denies dysuria or hematuria Musculoskeletal Musculoskeletal: Denies arthralgias or back pain Integumentary Denies abscess Neurologic Neurologic: Denies headache(s) or paresthesias Psychiatric Psychiatric: Denies anxiety or depression Endocrine Endocrinology: Denies polydipsia or polyphagia Hematologic/Lymphatic Hematologic/Lymphatic: Denies easy bleeding EXAM Physical Exam Const Vital Signs: 09/15/22 08:58 09/15/22 12:31 Temperature 98 F Temperature Source Temporal Pulse Rate 93 Respiratory Rate 20 H Blood Pressure 125/78 H 171/77 H Blood Pressure Mean 93 108 Pulse Ox 97 Oxygen Delivery Method Room Air Positive well nourished General Appearance ED: NAD; Negative for pallor HEENT Reports moist mucous membranes normocephalic and atraumatic Eyes PERRL and EOMs intact bilaterally Neck no lymphadenopathy Resp normal respiratory effort and clear to auscultation bilaterally Cardio regular rate and regular rhythm GI non-distended GI Narrative: Benign abdomen Inspection: Negative for abdominal distention Auscultation: normoactive bowel sounds Back/Spine no CVA tenderness Neuro CN's II-XII intact bilaterally Sensorium / Orientation: alert Psych mental status grossly normal Skin no wounds General Skin Exam: Negative for jaundice or pallor MDM MDM MDM Narrative Medical decision making narrative: Patient presenting with mid abdominal pain and nausea. He is given Zofran for his nausea. CBC was obtained to assess for an elevated white blood cell count or anemia. His white blood cell count is normal. Hemoglobin stable at 15.8. Coagulation studies are subtherapeutic with the patient has not taken his Coumadin because of his nausea. He is not complaining of chest pain or shortness of breath. He will need to restart his Coumadin and have this rechecked as an outpatient. CMP was ordered to assess for renal function, electrolytes, LFTs. His renal function is at baseline 2.11. Electrolytes unremarkable. Bilirubin slightly elevated 1.3 but it has been here in the past. AST and ALT are mildly elevated at 74 and 82 respectively. Alkaline phosphatase is normal. Urinalysis was obtained to assess for source of nausea and this does not show any evidence of infection. He does have urine ketones. I obtained an acute abdominal series to assess for possible obstruction and this is negative for obstructive pattern on my interpretation. No acute cardiopulmonary process noted on the PA chest on my interpretation as well. Radiologist are persistent agrees. On reevaluation the patient is feeling improved. He states I am hungry. I counseled him to start with a bland diet and increase as tolerated. He is to drink plenty of fluids. He will be given a prescription for Zofran for home. Return precautions were discussed. Impression: 1. Subtherapeutic INR 2. Nausea 3. Vomiting 4. Abdominal pain Lab Data Attestation: I reviewed the patient's lab results. Labs: Laboratory Results - last 24 hr 09/15/22 09/15/22 09/15/22 09:09 09:09 09:09 WBC 6.8 RBC 5.03 Hgb 15.8 Hct 46.1 MCV 91.7 MCH 31.4 MCHC 34.3 RDW Std Deviation 44.2 H RDW Coeff of Estela 13.1 Plt Count 180 MPV 9.6 Immature Gran % (Auto) 0.400 Neut % (Auto) 65.5 Lymph % (Auto) 24.1 [place] % (Auto) 9.9 Eos % (Auto) 0.0 Baso % (Auto) 0.1 Absolute Neuts (auto) 4.4 Absolute Lymphs (auto) 1.63 Nucleated RBC % 0 PT 16.8 H INR 1.4 Sodium 136 Potassium 3.8 Chloride 103 Carbon Dioxide 25.0 Anion Gap 8 BUN 39 H Creatinine 2.11 H Estim Creat Clear Calc 29.15 Est GFR (MDRD) Af Amer 40 L Est GFR (MDRD) Non-Af 33 L BUN/Creatinine Ratio 18.5 Glucose 191 H Calcium 9.1 Total Bilirubin 1.30 H AST 74 H ALT 82 H Alkaline Phosphatase 110 Total Protein 8.1 Albumin 3.8 Globulin 4.3 H Albumin/Globulin Ratio 0.9 Lipase 171 Urine Color Urine Clarity Urine pH Ur Specific [place] Urine Protein Urine Glucose (UA) Urine Ketones Urine Occult Blood Urine Nitrite Urine Bilirubin Urine Urobilinogen Ur Leukocyte Esterase Urine RBC Urine WBC Ur Squamous Epith Cells Urine Bacteria Urine Mucus 09/15/22 10:30 WBC RBC Hgb Hct MCV MCH MCHC RDW Std Deviation RDW Coeff of Estela Plt Count MPV Immature Gran % (Auto) Neut % (Auto) Lymph % (Auto) [place] % (Auto) Eos % (Auto) Baso % (Auto) Absolute Neuts (auto) Absolute Lymphs (auto) Nucleated RBC % PT INR Sodium Potassium Chloride Carbon Dioxide Anion Gap BUN Creatinine Estim Creat Clear Calc Est GFR (MDRD) Af Amer Est GFR (MDRD) Non-Af BUN/Creatinine Ratio Glucose Calcium Total Bilirubin AST ALT Alkaline Phosphatase Total Protein Albumin Globulin Albumin/Globulin Ratio Lipase Urine Color Yellow Urine Clarity Clear Urine pH 5.0 Ur Specific [place] 1.025 Urine Protein 100 H Urine Glucose (UA) 1000 H Urine Ketones 15 H Urine Occult Blood 150 H Urine Nitrite Negative Urine Bilirubin Negative Urine Urobilinogen Normal Ur Leukocyte Esterase Negative Urine RBC 0-5 SEEN Urine WBC 0 SEEN Ur Squamous Epith Cells 0-5 SEEN Urine Bacteria 0 SEEN Urine Mucus 1+ Radiography Diagnostic Testing: Clinical Impression(s) from Imaging Studies Acute Abdomen Series 09/15/22 09:46 IMPRESSION: No acute abnormality identified. Nonobstructive bowel gas pattern. Electronically Signed: Cata Somers MD at 10:20 EST Reading Location ID and State: [facility] / [place] Tel , Service support , Discharge Plan Triage Chief Complaint: Abd Pain ED Provider: Kye Ozuna Dx/Rx/DC Orders Instructions: ED Vomiting (Adult), ED Abdominal Pain Unkn Cause Male... Prescriptions: New ondansetron 4 mg tablet,disintegrating 4 mg PO Q8H PRN (Reason: nausea and vomiting) Qty: 14 0RF No Action tamsulosin 0.4 mg capsule 0.4 mg PO DAILY 90 Days Qty: 90 glipizide 5 mg tablet See Rx Instructions PO BID 90 Days Rx Instructions: Take 5 mg BID except on morning that sugar is > 140, take 7.5 mg that morning and 5 mg in the evening. cholecalciferol (vitamin D3) 2,000 unit tablet 2,000 unit PO DAILY methocarbamol 750 mg tablet 750 mg PO Q8H PRN (Reason: spasm) Rybelsus 3 mg tablet 14 mg PO DAILY Jardiance 25 mg tablet 25 mg PO DAILY atorvastatin 40 mg tablet 40 mg PO QHS warfarin 1 mg tablet 1 mg PO DAILY Protocol: Dose Management Condition: Thursday Dose/Route: 1 mg Instruction: 1 x 1 mg tablet Condition: Thursday Dose/Route: 1 mg Instruction: 1 x 1 mg tablet Condition: Thursday Dose/Route: 1 mg Instruction: 1 x 1 mg tablet Condition: Thursday Dose/Route: 1 mg Instruction: 1 x 1 mg tablet Condition: Dose/Route: 1 mg Instruction: 1 x 1 mg tablet Condition: Thursday Dose/Route: 1 mg Instruction: 1 x 1 mg tablet Condition: Thursday Dose/Route: 1 mg Instruction: 1 x 1 mg tablet Protocol Text: Adjustment Start Date: Thursday06/25/22 INR Value: 2.9 INR Date: 06/25/22 Recheck Date: 07/16/22 metoprolol succinate 25 mg tablet extended release 24 hr 25 mg PO DAILY hydrocodone-acetaminophen 5-325 mg tablet 1 tab PO QHS PRN pregabalin 150 MG capsule 150 mg PO BID Label Comments: Pain aspirin 81 MG tablet,chewable 81 mg PO DAILY Primary Care Provider: Renzo Davidson Referrals: Renzo Davidson DO [Primary Care Provider] - Disposition Disposition: Home, Self Care
[2022-09-15 09:42] LABS: Absolute Lymphocyte Count 1.63 X10^3/uL (0.83-4.51); Absolute Neutrophil Count 4.4 X10^3/uL (2.0-7.7); Basophil# 0.01 X10^3/uL; Basophil% 0.1 % (0-1); Hematocrit 46.1 % (40-54); Hemoglobin 15.8 g/dL (13.0-16.5); Lymphocyte # 1.63 X10^3/ul (0.83-4.51); Lymphocyte % 24.1 % (19-41); Mean Corp Hgb Conc 34.3 g/dL (32-36); Mean Corpuscular Hgb 31.4 pg (27.0-32.0); Mean Corpuscular Volume 91.7 fL (80-94); Mean Platelet Vol. 9.6 fl (6.2-12.0); Monocyte# 0.67 X10^3/uL; Monocyte% 9.9 % (0-10); NRBC Flagged by Analyzer 0 % (0-5); Neutrophil # 4.43 X10^3/uL (2.7-7.7); Neutrophil % 65.5 % (47-70); Platelet Count 180 K/mm3 (150-450); RBC Distribution Width CV 13.1 % (11.6-14.6); RBC Distribution Width SD 44.2 fl (35.1-43.9); Red Blood Count 5.03 M/mm3 (4.6-6.2); White Blood Count 6.8 K/mm3 (4.4-11.0)
[2022-09-15] MEDS: Ondansetron 4 MG/2 ML Vial IV (09:45)
[2022-09-15] MEDS: 0.9% Normal Saline 1,000 ML 1000 ML IV (09:45)
--- NOTE | 2022-09-15 09:46 | RAD_ITS ---
HISTORY: abdominal pain TECHNIQUE: XR Abdomen Series W/ Chest 1 View. COMPARISON: CT 10/13/2020. FINDINGS: --Chest: CARDIOMEDIASTINAL BORDERS: Cardiac silhouette within normal limits in size. Mediastinal contour not enlarged. Calcification of the aortic knob with adjacent vascular stent. LUNGS: Radiographically clear. PLEURA: No pneumothorax or significant pleural effusion. BONES: Degenerative change. --Abdomen: BOWEL GAS PATTERN: No dilated bowel loops identified. FREE AIR: None visualized. CALCIFICATIONS: Vascular calcifications observed, including right renal vascular calcification. BONES: Degenerative change. RAD/Acute Abdomen Inc Chest IMPRESSION: No acute abnormality identified. Nonobstructive bowel gas pattern. Electronically Signed: Cata Somers MD at 10:20 EST ,
[2022-09-15 09:59] LABS: International Normalized Ratio 1.4; Prothrombin Time (Protime)PT. 16.8 SECONDS (11.7-14.9)
[2022-09-15 10:00] LABS: ALB/GLOB Ratio 0.9 RATIO (0.9-2.4); AST(SGOT) 74 U/L (15-37); Alanine Aminotransfer ALT/SGPT 82 U/L (16-61); Albumin, Serum 3.8 g/dL (3.2-5.0); Alkaline Phosphatase 110 U/L (45-117); Anion Gap 8 (5-15); BUN 39 mg/dL (7-18); BUN/Creat Ratio 18.5 RATIO (10-20); Calcium,Total 9.1 mg/dL (8.5-10.1); Chloride 103 mmol/L (98-107); Creatinine, Serum 2.11 mg/dL (0.70-1.30); EST Glomerular Filtration Rate 33 mL/min (>60); Est Glom Filt Rate - Afr Amer 40 mL/min (>60); Estimated Creatinine Clearance 29.15 ml/min; Globulin 4.3 g/dL (2.2-4.2); Glucose 191 mg/dL (74-106); Lipase 171 U/L (73-393); Potassium 3.8 mmol/L (3.5-5.1); Protein, Total 8.1 g/dL (6.4-8.2); Sodium Level 136 mmol/L (136-145)
[2022-09-15 10:42] LABS: Bacteria 0 SEEN /hpf (None Seen); White Blood Cells 0 SEEN /hpf (0-5)
[2022-09-15 10:45] LABS: Color, Urine Yellow (Yellow); Glucose, Dipstick 1000 mg/dl (Normal); Ketone-Dipstick 15 mg/dl (Negative); Leukocyte Esterase-Dipstick Negative /ul (Negative); Nitrite-Dipstick Negative (Negative); Occult Blood-Urine 150 /ul (Negative); Protein-Dipstick 100 mg/dl (Negative); Specific Gravity, Urine 1.025 (1.002-1.030); Urine Bilirubin Dipstick Negative (Negative); Urine Clarity Clear (Clear); Urine Urobilinogen Normal (Normal)
[2022-09-15 11:00] LABS: Mucous, Urine 1+ /hpf (<or=2+); Red Blood Cells-Urine 0-5 SEEN /hpf (0-5); Squamous Epithelial Cells - UA 0-5 SEEN /hpf (0-5)
[2022-09-15 12:31] VITALS: BP 171/77
== END 2022-09-15 13:25 | disposition home or self-care (01) ==
PROVIDERS: Emergency Provider Student in an Organized Health Care Education/Training Program; PCP Student in an Organized Health Care Education/Training Program; Visit Provider Student in an Organized Health Care Education/Training Program
DX: R79.1 Abnormal coagulation profile (principal); R11.2 Nausea with vomiting, unspecified; N18.9 Chronic kidney disease, unspecified; I25.10 Atherosclerotic heart disease of native coronary artery without angina pectoris; G47.33 Obstructive sleep apnea (adult) (pediatric); I25.2 Old myocardial infarction; F12.90 Cannabis use, unspecified, uncomplicated; Z87.891 Personal history of nicotine dependence; Z86.73 Personal history of transient ischemic attack (TIA), and cerebral infarction without residual deficits
CPT/HCPCS: 74022; 80053; 81001; 83690; 85025; 85610; 96361; 96374; 99283; J7030; A4216; J2405

== ENCOUNTER 2022-10-09 12:16 | Outpatient (RCR) | payer MEDICARE, OTHER, SELFPAY ==
[2022-10-09 13:08] LABS: Hemoglobin 13.9 g/dL (13.0-16.5); Mean Corp Hgb Conc 33.9 g/dL (32-36); Mean Corpuscular Hgb 31.5 pg (27.0-32.0); Mean Platelet Vol. 10.1 fl (6.2-12.0); Platelet Count 151 K/mm3 (150-450); RBC Distribution Width CV 13.2 % (11.6-14.6); RBC Distribution Width SD 45.2 fl (35.1-43.9); Red Blood Count 4.41 M/mm3 (4.6-6.2)
[2022-10-09 13:32] LABS: PTHIN 89.6 pg/mL (18.4-80.1)
[2022-10-09 13:40] LABS: International Normalized Ratio 2.9; Prothrombin Time (Protime)PT. 29.7 SECONDS (11.7-14.9)
[2022-10-09 14:11] LABS: Hemoglobin A1c 7.5 % (3.8-5.6)
[2022-10-09 14:12] LABS: ALB/GLOB Ratio 0.8 RATIO (0.9-2.4); AST(SGOT) 30 U/L (15-37); Alanine Aminotransfer ALT/SGPT 46 U/L (16-61); Albumin, Serum 3.2 g/dL (3.2-5.0); Alkaline Phosphatase 96 U/L (45-117); Anion Gap 8 (5-15); BUN 25 mg/dL (7-18); BUN/Creat Ratio 12.3 RATIO (10-20); Calcium,Total 8.5 mg/dL (8.5-10.1); Chloride 105 mmol/L (98-107); Cholesterol 147 mg/dL (200); Creatinine, Serum 2.03 mg/dL (0.70-1.30); EST Glomerular Filtration Rate 34 mL/min (>60); Est Glom Filt Rate - Afr Amer 42 mL/min (>60); Globulin 3.9 g/dL (2.2-4.2); Glucose 245 mg/dL (74-106); High Density Lipoprotein 53 mg/dL; PSA,Total - Annual Screen 0.45 ng/mL (0.00-4.00); Potassium 4.2 mmol/L (3.5-5.1); Protein, Total 7.1 g/dL (6.4-8.2); Sodium Level 139 mmol/L (136-145); Thyroid Stim Hormone (TSH) 0.83 uIU/mL (0.358-3.74); Triglycerides 258 mg/dL; Very Low Density Lipoprotein 52 mg/dL (5-40)
[2022-10-09 15:01] LABS: Microalbumin,Random Urine 59.5 mg/L (NO RANGE EST.); Microalbumin:Creatinine Ratio 42.5 mg/g CRE (<30 mg/g CRE)
== END 2022-10-09 15:00 | disposition home or self-care (01) ==
LOC: LAB 12:16
PROVIDERS: PCP Student in an Organized Health Care Education/Training Program; Referring Provider Internal Medicine Cardiovascular Disease; Visit Provider Internal Medicine Cardiovascular Disease
DX: I48.0 Paroxysmal atrial fibrillation (principal); Z79.01 Long term (current) use of anticoagulants; E11.65 Type 2 diabetes mellitus with hyperglycemia; E11.22 Type 2 diabetes mellitus with diabetic chronic kidney disease; N18.30 Chronic kidney disease, stage 3 unspecified; Z12.5 Encounter for screening for malignant neoplasm of prostate
CPT/HCPCS: 36415; 80053; 80061; 82043; 82306; 82570; 83036; 83970; 84153; 84443; 85027; 85610; G0103

== ENCOUNTER 2022-11-26 11:37 | Outpatient (RCR) | payer MEDICARE, OTHER, SELFPAY ==
--- NOTE | 2022-11-26 11:59 | RAD_ITS ---
STUDY: X-RAY - LUMBAR SPINE REASON FOR EXAM: Male, 72 years old. Radiating low back pain TECHNIQUE: 6 view(s) of the lumbar spine were obtained. COMPARISON: None FINDINGS: Normal lumbar lordosis. There is no substantial scoliosis. There is a normal alignment of the vertebrae. There is multilevel endplate spondylosis of the lumbar vertebrae. There is multi-level degenerative disc disease with multi-level disc space narrowing. There is no demonstrated fracture. There is atherosclerotic calcification of the abdominal aorta without a demonstrated aneurysm. RAD/L/S Spine Min 4 Views IMPRESSION: Degenerative changes of the spine, as detailed above. Electronically Signed: Remigio Cunha MD at 13:00 EDT ,
[2022-11-26 12:46] LABS: International Normalized Ratio 2.5; Prothrombin Time (Protime)PT. 26.3 SECONDS (11.7-14.9)
== END 2022-12-12 23:00 | disposition home or self-care (01) ==
LOC: LAB 11:37
PROVIDERS: PCP Student in an Organized Health Care Education/Training Program; Referring Provider Internal Medicine Cardiovascular Disease; Visit Provider Internal Medicine Cardiovascular Disease
DX: I48.0 Paroxysmal atrial fibrillation (principal); Z79.01 Long term (current) use of anticoagulants
CPT/HCPCS: 36415; 72110; 85610

== ENCOUNTER 2022-12-18 07:46 | Outpatient (CLI) | payer MEDICARE, OTHER, SELFPAY ==
--- NOTE | 2022-12-18 07:58 | ART_ITS ---
Reason For Study: LT SUBCLAVIAN STENT Procedure A bilateral upper extremity continuous wave Doppler with analog waveform analysis and segmental pressures. Left Segmental Pressures Left brachial= 176mmHg. Left ulnar= >255mmHg. Left radial= >255mmHg. Left forearm by way of the radial artery = 190mmHg. The left ulnar waveforms are triphasic. The left radial waveforms are triphasic. Right Segmental Pressures Right brachial= 180mmHg. Right ulnar= 161mmHg. Right radial= >255mmHg. Right forearm pressure by way of the radial artery = 198mmHg. The right radial waveforms are triphasic. The right ulnar waveforms are triphasic. Indices The right wrist-brachial index is 0.89. The left wrist-brachial index is -NC-. VL/Ankle Brachial Index Interpretation Summary Bilateral wrist triphasic flow and WBI 0.89/NC. Ordering Physician: Derrick Nelson Referring Physician: Renzo Davidson Performed By: Rivka Ortega RVT, RDCS
--- NOTE | 2022-12-18 07:58 | ADUUE_ITS ---
Reason For Study: LT SUBCLAVIAN STENT 01/25/2016 LEFT Left Subclavian velocity = 135.0 cm/sec. Left Axillary velocity = 98.4 cm/sec. Left Brachial velocity = 111.1 cm/sec. Left Radial velocity = 93.2 cm/sec. Left Ulnar velocity = 49.3 cm/sec. VL/US Art Duplex Unilat UP Extrem Interpretation Summary Leftarm with no stenosis and triphasic flow. Ordering Physician: Derrick Nelson Referring Physician: Renzo Davidson Performed By: Rivka Ortega, WEI, RVT
--- NOTE | 2022-12-18 07:58 | AAVD_ITS ---
Reason For Study: AAA W/O RUPTURE Aorta Measurements Aorta Doppler Measurements Proximal aorta measures1.49 x 1.51cm. in cross- Peak systolic flow velocities within the proximal sectional axis. aorta measure 59.7 cm/sec. Proximal aorta measures1.39cm. in longitudinal Peak systolic flow velocities within the mid aorta axis. measure 53.0 cm/sec. Mid aorta measures1.43 x 1.53cm. in cross- Peak systolic flow velocities within the distal sectional axis. aorta measure 58.1 cm/sec. Mid aorta measures1.41cm. in longitudinal axis. Distal aorta measures2.21 x 2.27cm. in cross- sectional axis. Distal aorta measures2.13cm. in longitudinal axis. Left Iliac Artery Left iliac artery measures 0.79 x 0.72 cm. in the cross-sectional axis. Left iliac artery measures 0.79 cm. in the longitudinal axis. Peak systolic velocity in the left iliac artery measures 152.1 cm/sec. Right Iliac Artery Right iliac artery measures 0.86 x 0.80 cm. in the cross-sectional axis. Right iliac artery measures 0.78 cm. in the longitudinal axis. Peak systolic velocity in the right iliac artery measures 166.6 cm/sec. Procedure Aorta IVC Iliac vasculature or bypass grafts 39722. Exam performed in department. VL/Abd Aortic/IVC Duplex scan Interpretation Summary No aortoiliac stensosi or aneurysm. Ordering Physician: Derrick Nelson Referring Physician: Renzo Davidson Performed By: Rivka Ortega, WEI, RVT
--- NOTE | 2022-12-18 08:19 | ART_ITS ---
Reason For Study: S/P RT ILLIAC STENT & LT ILLIAC ANGIOPLASTY Procedure A bilateral lower extremity continuous wave Doppler with analog waveform analysis,segmental pressures,and ankle brachial indexes without exercise. Left Segmental Pressures Left brachial= 183mmHg. Left thigh = 199mmHg. Left calf = 198mmHg. Left posterior tibial artery = 187mmHg. Left dorsalis pedis artery = 185mmHg. Left digit = 110 mmHg. The left posterior tibial artery waveforms are biphasic. The left dorsalis pedis waveforms are biphasic. Right Segmental Pressures Right brachial= 179mmHg. Right thigh = 190mmHg. Right calf = 175mmHg. Right posterior tibial artery = >255mmHg. Right dorsalis pedis artery = 185mmHg. Right digit = >255 mmHg. The right posterior tibial artery waveforms are biphasic. The right dorsalis pedis waveforms are biphasic. Indices The right resting ankle brachial index is 1.01. The right ankle brachial index by the posterior tibial artery is -NC-. The right ankle brachial index by the dorsalis pedis is 1.01. The right digital-brachial index is -NC-. The left resting ankle brachial index is 1.02. The left ankle brachial index by the posterior tibial artery is 1.02. The left ankle brachial index by the dorsalis pedis is 1.01. The left digital-brachial index is 0.60. VL/Ankle Brachial Index Interpretation Summary Bilateral biphasic flow and MICHELLE 1.01 and 1.02. Ordering Physician: Derrick Nelson Referring Physician: Renzo Davidson Performed By: Rivka Ortega RVT, RDCS
== END 2022-12-18 23:59 | disposition home or self-care (01) ==
LOC: CVS 07:48
PROVIDERS: PCP Student in an Organized Health Care Education/Training Program; Referring Provider Surgery Vascular Surgery; Visit Provider Surgery Vascular Surgery
DX: I70.213 Atherosclerosis of native arteries of extremities with intermittent claudication, bilateral legs (principal); E11.65 Type 2 diabetes mellitus with hyperglycemia; E11.22 Type 2 diabetes mellitus with diabetic chronic kidney disease; E11.59 Type 2 diabetes mellitus with other circulatory complications; I77.1 Stricture of artery; I71.43 Infrarenal abdominal aortic aneurysm, without rupture; I48.0 Paroxysmal atrial fibrillation; N18.30 Chronic kidney disease, stage 3 unspecified; Z48.812 Encounter for surgical aftercare following surgery on the circulatory system; F17.200 Nicotine dependence, unspecified, uncomplicated; Z79.01 Long term (current) use of anticoagulants; Z12.5 Encounter for screening for malignant neoplasm of prostate; M54.59 Other low back pain; Z95.828 Presence of other vascular implants and grafts
CPT/HCPCS: 36415; 85610; 93922; 93931; 93978

== ENCOUNTER 2023-01-01 12:19 | Outpatient (RCR) | payer MEDICARE, OTHER, SELFPAY ==
[2022-12-18 11:06] LABS: International Normalized Ratio 1.8; Prothrombin Time (Protime)PT. 20.6 SECONDS (11.7-14.9)
[2023-01-01 13:30] LABS: International Normalized Ratio 2.8; Prothrombin Time (Protime)PT. 29.4 SECONDS (11.7-14.9)
== END 2023-01-11 02:15 | disposition home or self-care (01) ==
LOC: LAB 12:19
PROVIDERS: PCP Student in an Organized Health Care Education/Training Program; Referring Provider Internal Medicine Cardiovascular Disease; Visit Provider Internal Medicine Cardiovascular Disease
DX: I48.0 Paroxysmal atrial fibrillation (principal); Z79.01 Long term (current) use of anticoagulants
CPT/HCPCS: 36415; 85610

== ENCOUNTER 2023-01-15 10:00 | Outpatient (RCR) | payer MEDICARE, OTHER, SELFPAY ==
--- NOTE | 2022-12-09 11:27 | HP.PTEVAL ---
Patient's Visit Information TYRELL REYES is a 72 year old M referred to Physical Therapy by Dr. Renzo Davidson DO with a diagnosis of Lumbar Pain. Date of Evaluation: 12/09/22 Physical Therapist: Danya Arizmendi DPT - Visit Plan Frequency: 2x /Week Duration: 4 Weeks Plan: Postural strength/stabilization- endurance with ambulation and stairs. HEP Given IE: Postural education, TA Contraction sitting, hip add sitting, hip abd sitting - Subjective Patient reports that his doctor sent him but he is not exactly sure why- he thinks its from his degenerative bone disease. 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 Family doctor does adjustments for him- and that seems to help. Two weeks ago he could not move and his MD adjusted him and he is much better now. He is having a 3/10 pain today- the pain is on the right low back- last time the pain radiated down the leg to the knee was 2 weeks ago- as soon as he had the adjustment that went away. Describes the pain as sharp and shooting. He normally is a 3/10 pain level- on a bad day its a 7/10. Agg: nothing that triggers it- hard to track it. He knows that he is unable to lift. Eases: medication. He has tried heat/ice but nothing seems to help. Sitting is his best- laying down can be an issue- walking around is always an issue. He is the most comfortable in his recliner- but sits straight in it. He use to be active but his DM has kicked that in the butt and he can't walk to the end of his driveway anymore- his legs get weak and he has to sit down. He uses a cane that folds into a chair- he uses it when he goes long distances like [employer]. Fully I with ADL's- but does have help sometimes drying off because he is exhausted after standing in the shower- helps- Does still drive. 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 Feels his DM and back pain have really limited his mobility. Sleep: disturbed- wakes him up- side sleeper- right side- left hip hurts if on it too long. X-rays: show degen. Stairs: use rails- does them one at a time. PMHX/Meds: only change is Farziga. - Objective Posture: Fh, RS can correct with verbal cues and tactile but does not maintain. Gait: slow- no AD today but does report that he does use one in the community- wide base of support. Stairs: asc/desc 8 non recip. ROM: Lumbar: Flexion: hands to knees, Extn: neutral, SB and Rotation: WFL but does report pain with SB to the left and rotation to the right. Hip/Knee/Ankle: WFL. Palpation: tender along right paraspinals L3-5. Strength: Ankle: 4+/5, Knee: 4+/5, Hip: 4/5 throughout, Core: poor. Flex: HS: severe Gastroc: moderate, Sensation: decreased to gross touch below the knees and absent to bilateral feet - Special Tests L/S Slump test right side: Positive L/S Left Straight Leg Raise: Negative L/S Right Straight Leg Raise: Positive - Balance/Special Test Scores Oswestry Low Back Score: 31 TUG Test Time Seconds: 17 30 Second Chair Rise Test Seconds: 8 - Goals Goal 1:: Patient will be I with HEP and progression Goal Time Frame: 4-6 Weeks Goal 2:: Patient will ambulate 300 feet with LRD without having to rest Goal Time Frame: 4-6 Weeks Goal 3:: Patient will maintain proper posture t/o tx session to demo increased core s/s Goal Time Frame: 4-6 Weeks Goal 4:: Patient will TUG under 10 sec Goal Time Frame: 4-6 Weeks Goal 5:: Patient will report 80% improvement Goal Time Frame: 4-6 Weeks - Rehabilitation Potential Physical Therapy Diagnosis: Patient presents with hypomobility- he has decreased LE and core strength/stabilization, flex, proprioception. and muscular endurance leading to poor posture and decreased ability to perform ADL's. Rehabilitation Potential: Fair - Anticipated Interventions Patient/Client Instruction: Educate patient on: Benefits of Fitness Program Therapeutic Exercise to Include: Strength training, Endurance training, Balance training, Agility training, Body mechanics, Postural training, Flexibilty training, Gait and locomotor training, Neuromotor development, Dynamic Lumbar Stabilization, Scapular Strength/Stabilization For the Purpose of:: To improve muscle performance and motor function Thank you for the opportunity to evaluate your patient. For Medicare and Medicare HMO plans, please review the plan of care and approve it. It will need to be FAXED BACK to us at [phone] for Medicare purposes. For Medicare only, by signing this I certify the plan of care. Please let me know if there are questions or concerns regarding this plan of care. Physician Signature: Date:
--- NOTE | 2023-01-15 10:33 | HP.PTDCSUM_ITS ---
It has been my pleasure to treat TYRELL REYES referred by Dr. Renzo Davidson DO, with the diagnosis of Lumbar Pain for a total of 9 visit(s). Discharge Date: Please see the following information for a summary of their discharge status. Subjective: Pt. states that he feels like therapy is helping and he is still in pain but it is not as serious as it was before. He reports that the pain this morning when he first woke up was a 4/10 and now it is a 1/10. Pt. 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 Pt. reports that he is about 40% better since starting physical therapy. He reports that he feels like he is ready to do his exercises at home at this time. LBP Pain Intensity (Out of 10): 1 % Improvement: 40 Objective/Function: Elton has come to 9 sessions of physical therapy focusing on core, back, and LE strengthening. Reviewed his goals for therapy and he has met most of his goals for therapy. Discussed with pt. about continuing with skilled physical therapy but he felt he was ready to be discharged from physical therapy and continue with his exercises at home. Pt. has been discharged from physical therapy at this time. Goal 1:: Patient will be I with HEP and progression Goal Progress: Progressing Goal 2:: Patient will ambulate 300 feet with LRD without having to rest Goal Progress: Goal Met Goal 3:: Patient will maintain proper posture t/o tx session to demo increased core s/s Goal Progress: Goal Met Goal 4:: Patient will TUG under 10 sec Goal Progress: Goal Met Goal 5:: Patient will report 80% improvement Goal Progress: Progressing; Reports 40% Plan: Pt. discharged from physical therapy at this time and will continue with his exercises at home. If there are questions or concerns regarding this patient's physical therapy, please feel free to call me at [phone]. Thank you for the referral of this patient. Sincerely, Randy Carrillo Balance/Gait/Functional tests - Balance/Special Test Scores Oswestry Low Back Score: 31 TUG Test Time Seconds: 17 Tug Test: <20 sec.=mostly independent 30 Second Chair Rise Test Seconds: 8
== END 2023-01-15 14:33 | disposition home or self-care (01) ==
LOC: PT 10:00
PROVIDERS: PCP Student in an Organized Health Care Education/Training Program; Referring Provider Student in an Organized Health Care Education/Training Program; Visit Provider Student in an Organized Health Care Education/Training Program
DX: M51.36 Other intervertebral disc degeneration, lumbar region (principal); M54.16 Radiculopathy, lumbar region
CPT/HCPCS: 97110; 97162; 97164

== ENCOUNTER 2023-04-02 06:46 | Outpatient (RCR) | payer MEDICARE, OTHER, SELFPAY ==
[2023-04-02 07:47] LABS: International Normalized Ratio 2.4
== END 2023-04-13 18:00 | disposition home or self-care (01) ==
LOC: LAB 06:46
PROVIDERS: PCP Student in an Organized Health Care Education/Training Program; Referring Provider Internal Medicine Cardiovascular Disease; Visit Provider Internal Medicine Cardiovascular Disease
DX: I48.0 Paroxysmal atrial fibrillation (principal); Z79.01 Long term (current) use of anticoagulants; E11.65 Type 2 diabetes mellitus with hyperglycemia; N18.30 Chronic kidney disease, stage 3 unspecified; M54.59 Other low back pain
CPT/HCPCS: 36415; 85610

== ENCOUNTER 2023-04-10 07:00 | Outpatient (CLI) | payer MEDICARE, OTHER, SELFPAY ==
[2023-04-10 08:08] LABS: Hematocrit 39.3 % (40-54); Hemoglobin 12.9 g/dL (13.0-16.5); Mean Corp Hgb Conc 32.8 g/dL (32-36); Mean Corpuscular Hgb 30.5 pg (27.0-32.0); Mean Corpuscular Volume 92.9 fL (80-94); Mean Platelet Vol. 9.8 fl (6.2-12.0); Platelet Count 142 K/mm3 (150-450); RBC Distribution Width CV 13.3 % (11.6-14.6); RBC Distribution Width SD 45.3 fl (35.1-43.9); Red Blood Count 4.23 M/mm3 (4.6-6.2); White Blood Count 5.1 K/mm3 (4.4-11.0)
[2023-04-10 08:23] LABS: Protein, Urine (Random) 63.8 mg/dL (<11.9); Protein:Creat Ratio 382 mg/g CRE (0-200)
[2023-04-10 08:37] LABS: PTHIN 38.9 pg/mL (18.4-80.1)
[2023-04-10 08:38] LABS: ALB/GLOB Ratio 0.8 RATIO (0.9-2.4); AST(SGOT) 28 U/L (15-37); Alanine Aminotransfer ALT/SGPT 32 U/L (16-61); Albumin, Serum 3.1 g/dL (3.2-5.0); Alkaline Phosphatase 94 U/L (45-117); Anion Gap 4 (5-15); BUN 31 mg/dL (7-18); BUN/Creat Ratio 13.7 RATIO (10-20); Calcium,Total 9.2 mg/dL (8.5-10.1); Chloride 105 mmol/L (98-107); Cholesterol 140 mg/dL (200); Creatinine, Serum 2.27 mg/dL (0.70-1.30); EST Glomerular Filtration Rate 30 mL/min (>60); Est Glom Filt Rate - Afr Amer 36 mL/min (>60); Globulin 3.7 g/dL (2.2-4.2); Glucose 172 mg/dL (74-106); High Density Lipoprotein 45 mg/dL; Potassium 4.3 mmol/L (3.5-5.1); Protein, Total 6.8 g/dL (6.4-8.2); Sodium Level 138 mmol/L (136-145); Triglycerides 275 mg/dL; Uric Acid 6.7 mg/dL (3.5-7.2); Very Low Density Lipoprotein 55 mg/dL (5-40)
[2023-04-10 08:40] LABS: Hemoglobin A1c 7.3 % (3.8-5.6)
== END 2023-04-10 23:59 | disposition home or self-care (01) ==
LOC: LAB 07:02
PROVIDERS: PCP Student in an Organized Health Care Education/Training Program; Referring Provider Student in an Organized Health Care Education/Training Program; Visit Provider Student in an Organized Health Care Education/Training Program
DX: E11.59 Type 2 diabetes mellitus with other circulatory complications (principal); E11.22 Type 2 diabetes mellitus with diabetic chronic kidney disease; N18.4 Chronic kidney disease, stage 4 (severe); E55.9 Vitamin D deficiency, unspecified
CPT/HCPCS: 36415; 80053; 80061; 82043; 82306; 82570; 83036; 83970; 84156; 84550; 85027

== ENCOUNTER → 2023-04-20 | Outpatient (CLI) | payer MEDICARE, OTHER, SELFPAY ==
[2023-04-20 13:28] LABS: Hematocrit 37.9 % (40-54); Mean Corp Hgb Conc 34.3 g/dL (32-36); Mean Corpuscular Hgb 31.4 pg (27.0-32.0); Mean Corpuscular Volume 91.5 fL (80-94); Mean Platelet Vol. 9.9 fl (6.2-12.0); Platelet Count 170 K/mm3 (150-450); RBC Distribution Width CV 13.2 % (11.6-14.6); RBC Distribution Width SD 43.9 fl (35.1-43.9); Red Blood Count 4.14 M/mm3 (4.6-6.2); White Blood Count 5.8 K/mm3 (4.4-11.0)
[2023-04-20 13:40] LABS: Protein, Urine (Random) 28.1 mg/dL (<11.9); Protein:Creat Ratio 220 mg/g CRE (0-200)
[2023-04-20 13:57] LABS: Albumin, Serum 3.2 g/dL (3.2-5.0); BUN 26 mg/dL (7-18); BUN/Creat Ratio 11.7 RATIO (10-20); Calcium,Total 8.8 mg/dL (8.5-10.1); Chloride 104 mmol/L (98-107); Creatinine, Serum 2.22 mg/dL (0.70-1.30); EST Glomerular Filtration Rate 31 mL/min (>60); Est Glom Filt Rate - Afr Amer 37 mL/min (>60); Glucose 214 mg/dL (74-106); PTHIN 73.2 pg/mL (18.4-80.1); Phosphorus 2.7 mg/dL (2.5-4.9); Potassium 4.4 mmol/L (3.5-5.1); Sodium Level 136 mmol/L (136-145)
[2023-04-20 14:01] LABS: Vitamin D,25 Hydroxy 61.1 ng/mL
== END | disposition home or self-care (01) ==
LOC: LAB 12:29
PROVIDERS: PCP Student in an Organized Health Care Education/Training Program; Referring Provider Internal Medicine Nephrology; Visit Provider Internal Medicine Nephrology
DX: N18.32 Chronic kidney disease, stage 3b (principal); E55.9 Vitamin D deficiency, unspecified
CPT/HCPCS: 36415; 80069; 82306; 82570; 83970; 84156; 85027

== ENCOUNTER 2023-07-06 06:20 | Outpatient (RCR) | payer MEDICARE, OTHER, SELFPAY ==
[2023-07-06 08:09] LABS: Prothrombin Time (Protime)PT. 31.1 SECONDS (11.7-14.9)
== END 2023-07-06 18:00 | disposition home or self-care (01) ==
LOC: LAB 06:20
PROVIDERS: PCP Student in an Organized Health Care Education/Training Program; Referring Provider Internal Medicine Cardiovascular Disease; Visit Provider Internal Medicine Cardiovascular Disease
DX: I48.0 Paroxysmal atrial fibrillation (principal); Z79.01 Long term (current) use of anticoagulants
CPT/HCPCS: 36415; 85610

== ENCOUNTER 2023-09-20 00:04 | Emergency (ER) | payer MEDICARE, OTHER, SELFPAY ==
[2023-09-20 00:05] VITALS: BP 120/42; PULSE 80; RESP 16; TEMP 36.6; O2SAT 96; BMI 31.8
--- OUTSIDE RECORDS SUMMARY | 2023-09-20 00:32 | XMS RPT_ITS | CCD ---
Author Name Unknown Address [address] [facility] [address] [place] [address] Organization [facility] Care Team Providers Care Plastic Installer Name Role Phone ERI Vinson, Lazara Mathew Unavailable Derrick Douglas Attending Unavailable Branden Shannon Primary Care Unavailable LEXUS RIVERA DO Primary Care Physician ([id number] LEXUS RIVERA DO Attending Unavailable LEXUS RIVERA DO Primary Care Unavailable LEXUS RIVERA DO Attending Unavailable LEXUS RIVERA DO Primary Care Unavailable Allergies Allergy Classification Reported Allergen(s) Allergy Type Date of Onset Reaction(s) Facility (2 sources) metFORMIN; Translations: [metformin] Drug Allergy [facility] Medications Current Medications Medication Drug Class(es) Dates Sig (Normalized) Sig (Original) amitriptyline hydrochloride 10 mg oral tablet (2 sources) Tricyclic Antidepressant Start: 11-26-2022 amitriptyline 10 mg oral tablet Dose : 10 mg = 1 tab(s), Oral, qHS, # 30 tab(s), 0 Refill(s), Pharmacy: [facility], 170.2, cm, 11/26/22 9:25:00 EDT, Height Start Date: 11/26/22 Status: Ordered aspirin 81 mg delayed release oral tablet (5 sources) Nonsteroidal Anti-inflammatory Drug Start: 11-11-2019 aspirin 81 mg oral delayed release tablet Dose : 81 mg = 1 tab(s), Oral, Daily, 0 Refill(s) Start Date: 11/11/19 Status: Ordered Completed/Discontinued Medications Medication Drug Class(es) Dates Sig (Normalized) Sig (Original) acetaminophen 325 mg / HYDROcodone bitartrate 5 mg oral tablet (6 sources) Opioid Agonist Start: 11-26-2022 End: 12-26-2022 take 1 tablet by mouth every six hours as needed for pain [place] 325- 5 mg oral tablet Dose = 1 tab(s), Oral, q6h, PRN for pain, to be filled on or after 11/26/2022; oarrs reviewed and appropriate, # 20 tab(s), 0 Refill(s), Pharmacy: [facility], Chronic low back pain, 170.2, cm, 11/26/22 9:25:00 EDT, Height, 90.3, kg, 11/26/22 9:25:00 EDT, Dosing Weight Start Date: 11/26/22 Stop Date: 12/26/22 Status: Ordered Problems Active Problems Problem Classification Problem Date Documented Da te Episodic/Chronic Abdominal hernia (2 sources) Incisional hernia 11-21-2020 Episodic Acute cerebrovascular disease (1 source) Left sided cerebral infarction; Translations: [Cerebral infarction due to unspecified occlusion or stenosis of other cerebral artery] Onset: 6 05-07-2016 Chronic Adjustment disorders (2 sources) Grief finding 11-12-2021 Chronic Aortic and peripheral arterial embolism or thrombosis (2 sources) Embolism 02-24-2023 Chronic Biliary tract disease (2 sources) Acute cholecystitis 10-23-2020 Episodic Cardiac dysrhythmias (4 sources) Atrial fibrillation; Translations: [Ventricular premature complex] 12-26-2019 Chronic Chronic kidney disease (6 sources) Chronic kidney disease stage 3; Translations: [Chronic kidney disease stage 3B ] Onset: 3 12-26-2019 Chronic Conditions associated with dizziness or vertigo (3 sources) Dizziness and giddiness; Translations: [Lightheadedness] Onset: 6 06-05-2016 Episodic Congestive heart failure; nonhypertensive (2 sources) Chronic diastolic heart failure 12-17-2022 Chronic Coronary atherosclerosis and other heart disease (6 sources) Coronary arteriosclerosis; Translations: [Coronary atherosclerosis] Onset: 1 Resolved: 6 12-12-2010 Chronic Deficiency and other anemia (2 sources) Anemia due to blood loss 11-11-2019 Chronic Deficiency and other anemia (2 sources) Anemia 11-02-2019 Episodic Diabetes mellitus with complications (4 sources) Diabetic peripheral neuropathy; Translations: [Disorder of kidney due to diabetes mellitus] 03-21-2020 Chronic Diabetes mellitus without complication (7 sources) Diabetes mellitus; Translations: [Type 2 diabetes mellitus] Onset: 5 03-27-2015 Chronic Disorders of lipid metabolism (1 source) Hyperlipidemia; Translations: [Hyperlipidemia, unspecified] Onset: 1 12-12-2010 Chronic Essential hypertension (2 sources) Hypertensive disorder 12-17-2022 Chronic Fluid and electrolyte disorders (2 sources) Hyperkalemia 11-04-2019 Episodic Gastrointestinal hemorrhage (2 sources) Melena 11-02-2019 Episodic Genitourinary symptoms and ill-defined conditions (4 sources) Microalbuminuria; Translations: [Dysuria] Onset: 3 12-26-2019 Episodic Hyperplasia of prostate (2 sources) Benign prostatic hypertrophy without outflow obstruction 08-07-2021 Chronic Hypertension with complications and secondary hypertension (6 sources) Hypertensive heart AND renal disease; Translations: [Hypertensive left ventricular hypertrophy] 12-17-2022 Chronic Malaise and fatigue (2 sources) Fatigue 01-30-2021 Episodic Mood disorders (2 sources) Seasonal affective disorder 10-21-2022 Chronic Neoplasms of unspecified nature or uncertain behavior (2 sources) Neoplastic disease of uncertain behavior 09-26-2019 Episodic Other aftercare (2 sources) Post-discharge follow-up 10-23-2020 Episodic Other and ill-defined heart disease (2 sources) Left ventricular hypertrophy 12-17-2022 Chronic Other bone disease and musculoskeletal deformities (16 sources) Segmental and somatic dysfunction 10-14-2019 Episodic Other bone disease and musculoskeletal deformities (2 sources) Somatic dysfunction of lower limb 06-15-2020 Episodic Other circulatory disease (1 source) Subclavian artery stenosis; Translations: [Stricture of artery] Onset: 6 05-07-2016 Chronic Other circulatory disease (2 sources) Abnormal chest sounds 09-23-2022 Episodic Other circulatory disease (2 sources) History of lacunar cerebrovascular accident 09-23-2022 Episodic Other circulatory disease (2 sources) Telangiectasia disorder 04-27-2020 Episodic Other connective tissue disease (2 sources) Biceps tendinitis 04-30-2021 Episodic Other connective tissue disease (2 sources) Infraspinatus tendinitis 04-14-2019 Episodic Other connective tissue disease (2 sources) Swelling of right foot 11-02-2019 Episodic Other gastrointestinal disorders (2 sources) Diarrhea 01-13-2020 Episodic Other gastrointestinal disorders (2 sources) Upper gastrointestinal bleeding 11-02-2019 Episodic Other injuries and conditions due to external causes (2 sources) Tear of skin 07-13-2020 Episodic Other lower respiratory disease (2 sources) Cough 03-05-2023 Episodic Other non-traumatic joint disorders (2 sources) Shoulder pain 08-17-2020 Episodic Other nutritional; endocrine; and metabolic disorders (2 sources) Overweight 03-31-2023 Episodic Other nutritional; endocrine; and metabolic disorders (2 sources) Overweight in adulthood with body mass index of 25 or more but less than 30 05-05-2023 Episodic Other skin disorders (2 sources) Actinic keratosis 10-14-2019 Episodic Other skin disorders (2 sources) Dry skin 10-14-2019 Episodic Other skin disorders (2 sources) Lesion of skin of face 06-17-2022 Episodic Other skin disorders (2 sources) Loss of hair 01-30-2021 Episodic Other skin disorders (2 sources) Pigmented skin lesion 02-27-2021 Episodic Otitis media and related conditions (2 sources) Dysfunction of eustachian tube 08-09-2019 Episodic Peripheral and visceral atherosclerosis (6 sources) Claudication; Translations: [Peripheral vascular disease, unspecified] Onset: 6 05-07-2016 Chronic Residual codes; unclassified (2 sources) Obstructive sleep apnea syndrome 06-24-2019 Chronic Residual codes; unclassified (2 sources) Edema of lower extremity 10-14-2019 Episodic Residual codes; unclassified (2 sources) Screening due 07-15-2022 Episodic Screening and history of mental health and substance abuse codes (2 sources) Ex-smoker 07-15-2022 Episodic Spondylosis; intervertebral disc disorders; other back problems (2 sources) Lumbar spondylosis 04-13-2019 Chronic Spondylosis; intervertebral disc disorders; other back problems (4 sources) Chronic low back pain; Translations: [Low back pain] 04-14-2019 Episodic Substance-related disorders (2 sources) Marijuana user 06-24-2019 Episodic Transient cerebral ischemia (3 sources) Transient cerebral ischemic attack, unspecified; Translations: [Transient cerebral ischemia] Onset: 6 05-07-2016 Chronic Unclassified (1 source) Presence of other specified functional implants; Translations: [Presence of other specified functional implants] Onset: 6 05-07-2016 Chronic Unclassified (3 sources) Encounter for screening for malignant neoplasm of colon; Translations: [Viral screening status] Onset: 6 12-20-2015 Episodic Unclassified (2 sources) ILIAC ARTERY STENOSIS Onset: 9 Unclassified (2 sources) Anticoagulant effect 01-28-2023 Unclassified (2 sources) Exposure to 2018 novel coronavirus 10-23-2020 Unclassified (4 sources) Medication refused 06-23-2023 Unclassified (8 sources) Patient encounter status 03-11-2021 Unclassified (2 sources) Seborrheic keratosis 02-27-2021 Viral infection (2 sources) Verruca vulgaris 10-14-2019 Episodic Past or Other Problems Problem Classification Problem Date Documented Date Episodic/Chronic Nonspecific chest pain (2 sources) Precordial pain; Translations: [Precordial pain] Onset: 12-12-2010 Resolved: 05-07-2016 05-07-2016 Episodic Other aftercare (1 source) Other termite treater helper (current) drug therapy; Translations: [Other termite treater helper (current) drug therapy] Onset: 12-12-2010 12-12-2010 Episodic Other circulatory disease (2 sources) Abnormal result of cardiovascular function study, unspecified; Translations: [Abnormal result of cardiovascular function study, unspecified] Onset: 12-12-2010 Resolved: 05-07-2016 05-07-2016 Episodic Other connective tissue disease (1 source) Pain in lower limb; Translations: [Pain in leg, unspecified] Onset: 05-07-2016 05-07-2016 Episodic Results Test Name Value Interpretation Reference Range [facility] it Vital Signs Date Time Vital Sign Value Performing Clinician Kenneth atkins 12-05-2016 15:44-0400 BMI (Body Mass Index) 30.55 kg/m2 ERI Waters [employer] Work Phone: 12-05-2016 15:44-0400 Weight 89.81 kg ERI Waters [facility] Work Phone: 06-05-2016 14:35-0400 BP Diastolic 50 mm[Hg] ERI Waters [employer] Work Phone: 06-05-2016 14:35-0400 BP Systolic 130 mm[Hg] ERI [facility] Work Phone: 06-05-2016 14:35-0400 BP Systolic 110 mm[Hg] ERI [facility] Work Phone: 06-05-2016 14:35-0400 Height 171.45 cm ERI [facility] Work Phone: 06-05-2016 14:35-0400 Pulse (Heart Rate) 86 /min ERI Waters [facility] Work Phone: 06-05-2016 14:35-0400 Pulse (Heart Rate) 88 /min ERI [facility] Work Phone: 06-05-2016 14:35-0400 Respiratory Rate 18 /min E[facility] Work Phone: 12-20-2015 10:51-0400 Body Temperature 98.3 [degF] ERI [facility] Work Phone: 12-20-2015 10:51-0400 BSA (Body Surface Area) 1.99 m2 ERI [facility] Work Phone: Encounters Encounter Date Encounter Type Care Provider Facility Start: 06-23-2023 End: 06-28-2023 ambulatory LEXUS RIVERA DO Facility:B Start: 06-23-2023 End: 06-28-2023 ambulatory LEXUS RIVERA DO Facility:B Start: 06-23-2023 End: 06-27-2023 Outreach Lab LEXUS RIVERA DO [facility] Start: 06-23-2023 End: 06-27-2023 Outreach Lab LEXUS RIVERA DO [facility] Start: 09-21-2018 Evaluation and management of inpatient Derrick GumaroRadha Nelson Facility:[facility] Procedures Date Procedure Procedure Detail Performing Clinician Start: 12-05-2016 End: 12-05-2016 CHILD CARE GIVER Payal Virgen PA-C Work Phone: Start: 12-05-2016 End: 12-05-2016 Follow Up Appt 6 months Payal pineda PA-C Work Phone: Start: 11-12-2016 Vascular disease (disorder) LEXUS RIVERA DO Plan of Treatment Date Care Activity Detail Author Start: 06-04-2017 End: 06-04-2017 Appointment Appointment [facility] Work Phone: Start: 12-05-2016 End: 12-05-2016 CHILD CARE GIVER CHILD CARE GIVER [facility] Work Phone: Start: 12-05-2016 End: 12-05-2016 Industrial Mechanic Industrial Mechanic [facility] Nutrition Services, [address] [place] [address], [id number] [facility] Work Phone: Start: 12-05-2016 End: 12-05-2016 Follow Up Appt 6 months Follow Up Appt 6 months [facility] Work Phone: Start: 06-05-2016 End: 06-05-2016 *Hepatic Function Panel *Hepatic Function Panel [facility] Work Phone: Start: 06-05-2016 End: 06-05-2016 Follow Up Appt 6 months Follow Up Appt 6 months [facility] Work Phone: Start: 06-05-2016 End: 06-05-2016 Lipid panel [AGGREGATE] *Lipid Profile CC PCP [facility] Work Phone: Start: 06-05-2016 End: 06-05-2016 MMM MMM [facility] Work Phone: Start: 12-20-2015 End: 12-20-2015 Diagnostic colonoscopy Colonoscopy [facility] Work Phone: Start: 05-09-2015 End: 11-28-2016 *Hepatic Function Panel *Hepatic Function Panel [facility] Work Phone: Start: 05-09-2015 End: 11-28-2016 Lipid panel [AGGREGATE] *Lipid Profile CC PCP [facility] Work Phone: Start: 03-28-2015 End: 03-28-2015 *Hepatic Function Panel *Hepatic Function Panel [facility] Work Phone: Start: 03-28-2015 End: 03-28-2015 Echocardiography Echocardiogram (complete) [facility] Work Phone: Start: 03-28-2015 End: 03-28-2015 Electrocardiogram, complete EKG (In office) [facility] Work Phone: Start: 03-28-2015 End: 03-28-2015 Lipid panel [AGGREGATE] *Lipid Profile CC PCP [facility] Work Phone: Start: 03-28-2015 End: 03-28-2015 Nuclear stress test -Lexiscan Nuclear stress test -Lexiscan [facility] Work Phone: Patient Education [facility] Work Phone: Immunizations Immunization Date Immunization Notes Care Provider Fa shelley 09-11-2021 SARS-CoV-2 (COVID-19 ) mRNA-1273 vaccine LEXUS HALKO DO [facility] 12-12-2020 SARS-CoV-2 (COVID-19 ) mRNA-1273 vaccine LEXUS HALKO DO [facility] 11-15-2020 SARS-CoV-2 (COVID-19 ) mRNA-1273 vaccine LEXUS HALKO DO [facility] Payers Date Payer Category Payer Medicare [id number] 2023 Unknown [id number] 2017 Private Health Insurance [id number] 2008 Medicare [id number] 1950 Unknown [id number] 1950 Unknown [id number] Unknown [id number] Social History Date Type Detail Facility Start: 04-13-2019 Tobacco smoking status Ex-smoker (fi nding) [facility] Sex Assigned At Male [facility] Medical Equipment Procedure Code Equipment Code Equipment Origin al Text Equipment Identifier Dates See Instructions , accucheck guide brand; test BGT BID for titration of medications; dispense #300 for 90 day supply; 3; dx E11.65, # 3 EA, 3 Refill(s), Pharmacy: [facility], 170.5, cm, 06/02/23 9:59:00 EDT, Height, 88.7, kg, 06/02/23 9:59:00 EDT, Dosing Weight Start: 06-19-2023 See Instructions , dispense #30 BD ultra fine short needles (4 mm, 32 G), use daily to inject insulin; no refills; dx E11.42, # 3 EA, 3 Refill(s), Pharmacy: [facility], 170.5, cm, 06/02/23 9:59:00 EDT, Height, 88.7, kg, 06/02/23 9:59:00 EDT, Dosing Weight Start: 06-19-2023 See Instructions , accucheck guide brand; test BGT BID for titration of medications; dispense #300 for 90 day supply; 3; dx E11.65, # 3 EA, 3 Refill(s), Pharmacy: [facility], 170.5, cm, 06/02/23 9:59:00 EDT, Height, 88.7, kg, 06/02/23 9:59:00 EDT, Dosing Weight Start: 06-19-2023 See Instructions , dispense #30 BD ultra fine short needles (4 mm, 32 G), use daily to inject insulin; no refills; dx E11.42, # 3 EA, 3 Refill(s), Pharmacy: [facility], 170.5, cm, 06/02/23 9:59:00 EDT, Height, 88.7, kg, 06/02/23 9:59:00 EDT, Dosing Weight Start: 06-19-2023 Clinical Note 06-25-2023 Note Date & Type Note Facility 06-25-2023 Note . MICRO - Microbiology PROCEDURE: Urine Culture [*1] SOURCE: Urine, Clean Catch BODY SITE: COLLECTED DATE/TIME: 06/23/2023 15:02 EDT RECEIVED DATE/TIME: 06/23/2023 20:45 EDT START DATE/TIME: 06/23/2023 20:45 EDT FREE TEXT SOURCE: FINAL REPORTS Final Report [] Verified Date/Time/Personnel: 06/25/2023 08:01 EDT 10,000 - 50,000 cfu/ml Mixed growth consistent with normal urogenital fina. PRELIMINARY REPORTS Preliminary Report [] Verified Date/Time/Personnel: 06/24/2023 10:00 EDT No growth to date Performing Locations *1: This test was performed at: [address], [address] [place] [address] ([place]) Progress note 11-26-2020 Note Date & Type Note Facility 11-26-2020 Note HNO ID: [id number] Author: Patti Luciano Service: ? Author Type: Physician Type: Progress Notes Filed: 11/27/2020 12:36 PM Note Text: Fidel Arita 1950 REFERRING PHYSICIAN: Branden Shannon DO CHIEF COMPLAINT: No chief complaint on file. HPI: The patient is a 70 year old male is s/p laparoscopic cholecystectomy on 10/16/2020. He is concerned about a possible hernia of his periumbilical trocar site. He complains of feeling a bulge in the area and protrusion of tissue. He states that he has noted this for the past week. PAST MEDICAL HISTORY Diagnosis Date - Actinic keratoses - Back pain - Cholelithiasis with chronic cholecystitis 10/2020 - Coronary atherosclerosis - Diabetic neuropathy (HCC) - DM (diabetes mellitus) (HCC) - Dysphagia - Folliculitis - Hypertensive disorder - Intermittent claudication (HCC) - PAD (peripheral artery disease) (HCC) - Transient cerebral ischemia PAST SURGICAL HISTORY Procedure Laterality Date - BREAST BIOPSY HX - CATARACT EXTRACTION HX Bilateral 08/2020 - CHOLECYSTECTOMY HX - CYSTOSCOPY with dilatation - EGD - HEART CATHETERIZATION with stent - LAPAROSCOPIC CHOLEYCYSTECTOMY N/A - REVSC OPN/PRQ TIB/CRISTINA W/ANGIOPLASTY UNI Right 07/30/2016 Current Outpatient Medications Medication Sig - atorvastatin (LIPITOR) 40 mg tablet Take 40 mg by mouth once daily. - glipiZIDE (GLUCOTROL) 5 mg tablet - metoprolol succinate ER (TOPROL XL) 25 mg 24 hr tablet - tamsulosin (FLOMAX) 0.4 mg Take 0.4 mg by mouth once daily. - warfarin (COUMADIN) 2 mg tablet 2 mg. - aspirin 325 mg tablet Take 325 mg by mouth once daily. - HYDROcodone-acetaminophen (NORCO) 5-325 mg per tablet Take 1 tablet by mouth every 6 hours as needed. - nitroglycerin sublingual (NITROSTAT) 0.4 mg SL tablet Dissolve 0.4 mg under the tongue every 5 minutes as needed. - clopidogrel (PLAVIX) 75 mg tablet - lisinopril (ZESTRIL, PRINIVIL) 10 mg tablet - metFORMIN ER (GLUCOPHAGE XR) 500 mg 24 hr tablet 500 mg twice daily. - LYRICA 150 mg capsule 150 mg twice daily. - aspirin(ADULT ASPIRIN EC LOW STRENGTH 81 MG TAB, DELAYED RELEASE) Take one(1) tablet daily. ALLERGIES: Patient has no known allergies. PERSONAL HISTORY: Social History Tobacco Use - Smoking status: Former Smoker - Smokeless tobacco: Never Used Substance Use Topics - Alcohol use: Yes Comment: 5 drinks per week, whiskey - Drug use: Yes Types: Marijuana FAMILY HISTORY Problem Relation Age of Onset - Heart Father REVIEW OF SYSTEM: Denies fevers, denies changes in appetite PHYSICAL EXAMINATION: General: The patient is 70 year old male, well nourished, well hydrated in no acute distress. The patient is oriented to time, place, and person. VITALS: There were no vitals taken for this visit. There is no height or weight on file to calculate BMI. Head ? Normocephalic. EOM intact with sclera clear. Neck - supple Lungs ? normal respiratory excursion, no adventitial sounds noted. No labored breathing noted, such as retractions. No cough heard. Abdomen ? soft and benign and protuberant. Rectus diastasis present. Periumbilical trocar site - healed - no palpable hernia noted Skin ? normal skin integrity. Neurological ? gait normal, no focal deficits noted. Psych ? calm and appropriate Assessment IMPRESSION: no evidence of trocar hernia, rectus diastasis PLAN: I have discussed the above with the patient. I have reassured him that there is no hernia, but that he does have rectus diastasis and this makes the protuberance noticeable. I have told him that what he palpates in the area is probably scar tissue. The patient acknowledges the above. I have answered all questions to the patient?s satisfaction and the patient has no further questions. . Diagnoses: (Z90.49) Status post laparoscopic cholecystectomy (primary encounter diagnosis) Return to Clinic: The patient is instructed to follow-up with me as per needed. I have confirmed and edited as necessary, the PFSH and ROS obtained by others. Patti Luciano MD [facility] Progress note 10-29-2020 Note Date & Type Note Facility 10-29-2020 Note HNO ID: [id number] Author: Patti Luciano Service: ? Author Type: Physician Type: Progress Notes Filed: 10/31/2020 8:47 AM Note Text: FOLLOW UP VISIT - CHOLECYSTECTOMY ? NAME: Fidel Arita [facility] NO.: [id number] DATE OF SERVICE: 10/29/2020 ? : 1950 ? REFERRING PHYSICIAN: Branden Shannon, DO ? Fidel is s/p laparoscopic cholecystectomy with intraoperative choleangiogram on 10/16/2020. He had no symptoms of abdominal pain which confounded his diagnosis. He states that he has no abdominal pain at this point He denies fevers. Tolerating diet ? Pathology from procedure - MICROSCOPIC DIAGNOSIS Gallbladder, cholecystectomy: chronic cholecystitis and cholelithiasis. VITALS: There were no vitals taken for this visit. ? On examination, the abdomen is benign. The incisions are healing well without signs of infection or inflammation. ? Assessment IMPRESSION: status post laparoscopic cholecystectomy with intraoperative cholangiogram ? PLAN: Follow up as per needed. Patient to return to his primary physician for medical care. ? Diagnoses: (Z90.49) Status post laparoscopic cholecystectomy (primary encounter diagnosis) ? ? Return to Clinic: The patient is instructed to follow-up with me as needed. Patient to return to his primary physician for medical care. ? ? ? Patti Luciano MD ? [facility] Progress note 10-22-2020 Note Date & Type Note Facility 10-22-2020 Note HNO ID: [id number] Author: Patti Luciano Service: ? Author Type: Physician Type: Progress Notes Filed: 10/27/2020 11:53 AM Note Text: FOLLOW UP VISIT - CHOLECYSTECTOMY NAME: Fidel Arita [facility] NO.: [id number] DATE OF SERVICE: 10/22/2020 : 1950 REFERRING PHYSICIAN: Branden Shannon DO Fidel is a patient I am following for a complaint of right upper quadrant pain. I performed a laparoscopic cholecystectomy with intraoperative choleangiogram on 10/16/2020. He had no symptoms of abdominal pain which confounded his diagnosis. He notes some right upper quadrant discomfort, but not requiring pain medications. He denies fevers. Tolerating diet Pathology from procedure - MICROSCOPIC DIAGNOSIS Gallbladder, cholecystectomy: chronic cholecystitis and cholelithiasis. VITALS: There were no vitals taken for this visit. On examination, the abdomen is benign. The incisions are healing well without signs of infection or inflammation. Assessment IMPRESSION: status post laparoscopic cholecystectomy with intraoperative cholangiogram PLAN: If the patient notes any problems, he should contact me immediately. he may return to his regular activities as tolerated, with the exception of no lifting greater than 20 pounds for the next 2 weeks. The patient is to contact me immediately is he experiences any of his preoperative symptoms. We discussed that occasional right up quadrant symptoms similar to the preoperative complaints can occur in the first couple of weeks post operatively. If this persists beyond the first 2-3 weeks, they should contact our office. Diagnoses: (Z90.49) Status post laparoscopic cholecystectomy (primary encounter diagnosis) Return to Clinic: The patient is instructed to follow-up with me as needed. Patient to return to his primary physician for medical care. Patti Luciano MD [facility] Evaluation + Plan note Note Date & Type Note Facility Evaluation + Plan note Future Appointments Appointment Date:07/28/2023 10:00:00 AM Scheduled Provider:LEXUS RIVERA DO Location:[facility] Appointment Type:PC Office Procedure OMT Appointment Date:08/25/2023 09:30:00 AM Scheduled Provider:LEXUS RIVERA DO Location:[facility] Appointment Type:PC Office Procedure OMT Appointment Date:09/29/2023 09:00:00 AM Scheduled Provider:LEXUS RIVERA DO Location:[facility] Appointment Type:PC Office Procedure OMT Appointment Date:11/03/2023 08:30:00 AM Scheduled Provider:LEXUS RIVERA DO Location:[facility] Appointment Type:PC Office Procedure OMT Appointment Date:12/01/2023 09:30:00 AM Scheduled Provider:LEXUS RIVERA DO Location:[facility] Appointment Type:PC Office Procedure OMT Appointment Date:12/29/2023 09:00:00 AM Scheduled Provider:LEXUS RIVERA DO Location:[facility] Appointment Type:PC Office Procedure OMT [facility] Hospital course Narrative Note Date & Type Note Facility Hospital course Narrative No data available for this section [facility] Hospital Discharge instructions Note Date & Type Note Facility Hospital Discharge instructions No data available for this section [facility] Progress note Note Date & Type Note Facility Progress note No data available for this section [facility] Summary Purpose Family History No Family History Records FoundNo Family History Records Found No data available for this section No data available for this section No Family History Records Found Advance Directives No Advanced Directives Records FoundNo Advanced Directives Records FoundNo Advanced Directives Records Found Additional Source Comments (unrecognized sect ion and content) No Status Records FoundNo Status Records FoundNo Status Records Found INFORMATION SOURCE (unrecogn ized section and content) DATE CREATED AUTHOR AUTHOR'S ORGANIZ ATION 10/11/2021 [facility] DATE CREATED AUTHOR AUTHOR'S ORGANIZ ATION 07/28/[address] [facility] ([place]) Patient Care team informatio n (unrecognized section and content) Care Team Personnel Name: LEXUS RIVERA DO Position: P4 Physician - Primary Care Member Role: Primary Care Physician Address: Address: [address] [place] [address] Care Team Related Persons Name: YOLI ARITA Address: Home [address] [place] [phone] Care Team Personnel Name: LEXUS RIVERA DO Position: P4 Physician - Primary Care Member Role: Primary Care Physician Address: Address: [address] [place] [address] Care Team Related Persons Name: YOLI ARITA Address: Home [address] [place] [phone] US FOR RECORDS PERTAINING TO PATIENTS WHO ARE OR HAVE BEEN ENROLLED IN A CHEMICAL DEPENDENCY/SUBSTANCEABUSE PROGRAM, SOME INFORMATION MAY BE OMITTED. This clinical summary was aggregated from multiple sources. Caution should be exercised in using it in the provision of clinical care. This summary normalizes information from multiple sources, and as a consequence, information in this document may materially change the coding, format and clinical context of patient data. In addition, data may be omitted in some cases. CLINICAL DECISIONS SHOULD BE BASED ON THE PRIMARY CLINICAL RECORDS. [employer] provides no warranty or guarantee of the accuracy or completeness of information in this document.
--- NOTE | 2023-09-20 01:06 | EDS_ITS ---
HPI History of Present Illness Chief Complaint: Wound Informant: patient Onset/Context/Timing Onset: Today Narrative Narrative: Patient presents secondary to bleeding wound from his left leg. He is on Coumadin for history of paroxysmal A-fib. This afternoon he was carrying wood into his house when he got an abrasion to the lateral portion of his left lower leg. He states it has been bleeding since and he cannot get it to stop. He thinks his last INR check was about a month ago. [facility] Medical History Acute on chronic diastolic (congestive) heart failure Anxiety and depression Atherosclerosis of coronary artery of [place] heart without angina pectoris Chronic renal failure CKD (chronic kidney disease) Claudication DDD (degenerative disc disease) Diabetic neuropathy History of CVA (cerebrovascular accident) (10/2015) History of non-ST elevation myocardial infarction (NSTEMI) (11/02/19) Hyperlipidemia Hypertension Lacunar infarct, acute Marijuana use Narcolepsy Obstructive sleep apnea Osteoarthritis Paroxysmal atrial fibrillation Peripheral vascular occlusive disease Stenosis of left subclavian artery Type 2 diabetes mellitus Upper GI bleed (11/02/19) Home Medications pregabalin 150 mg capsule 150 mg PO BID pain 11/06/15 [History Last Taken 10/12/20 22:00] tamsulosin 0.4 mg capsule 0.4 mg PO DAILY prostate 90 days #90 caps 12/24/18 [History Last Taken 10/13/20 10:00] cholecalciferol (vitamin D3) 50 mcg (2,000 unit) tablet 2,000 unit PO DAILY vitamin 06/24/19 [History Last Taken Unknown] methocarbamol 750 mg tablet 750 mg PO Q8H PRN spasm 11/08/19 [History Last Taken Unknown] aspirin 81 mg chewable tablet 81 mg PO DAILY heart health 03/22/20 [History Last Taken Unknown] atorvastatin 40 mg tablet 40 mg PO QHS 01/06/22 [History Last Taken Unknown] glipizide 5 mg tablet See Rx Instructions PO BID diabetes 90 days 01/06/22 [History Last Taken Unknown] metoprolol succinate 25 mg tablet,extended release 24 hr 25 mg PO DAILY 01/06/22 [History Last Taken Unknown] hydrocodone-acetaminophen 5-325mg 5mg-325mg 1 tab PO QHS PRN 07/09/22 [History Last Taken Unknown] ondansetron 4 mg disintegrating tablet 4 mg PO Q8H PRN nausea and vomiting #14 tabs 09/15/22 [Rx Last Taken Unknown] dapagliflozin propanediol 10 mg tablet (Farxiga) 10 mg PO DAILY 10/13/22 [History Last Taken Unknown] nitroglycerin 0.4 mg sublingual tablet 0.4 mg sublingual Q5M PRN chest pain #25 tabs 10/13/22 [Rx Last Taken Unknown] isosorbide mononitrate 60 mg tablet,extended release 24 hr 60 mg PO DAILY This is a dose increase #90 tabs 10/22/22 [Rx Last Taken Unknown] warfarin 1 mg tablet 1 mg PO DAILY #90 tabs 01/26/23 [Rx Last Taken Unknown] semaglutide 3 mg tablet (Rybelsus) 3 mg PO DAILY 02/03/23 [History Last Taken Unknown] Allergy/AdvReac Type Severity Reaction Status Date / Time metformin AdvReac Nausea/Vom/ Verified 09/20/23 00:05 Diarrhea Family History Brother Cancer Surgical History History of angioplasty of peripheral vessel (09/2018) History of cholecystectomy (~10/2020) History of left heart catheterization (11/13/04) Social History Smoking Status: Former smoker quit date: 09/14/97 Tobacco: How many years used: 45 how long ago did patient quit smokin years ago alcohol intake: current alcohol intake frequency: 0-2 drinks per day Alcohol type: hard liquor substance use type: marijuana caffeine: Yes Type: carbonated beverages Number of servings: 1 ROS ROS ED Constitutional Constitutional ED: Denies chills or fever(s) Eyes Eyes: Denies discharge from eye(s) ENT ENT ED: Denies discharge from eye(s), rhinorrhea or sore throat Cardiovascular Cardiovascular: Denies chest pain Respiratory/Chest Respiratory/Chest: Denies cough or dyspnea Gastrointestinal Gastrointestinal: Denies abdominal pain, nausea or vomiting Musculoskeletal Musculoskeletal: Denies back pain or extremity pain Integumentary Reports Abrasions; Denies rash Neurologic Neurologic: Denies headache(s) or weakness Psychiatric Psychiatric: Denies anxiety or depression Allergic/Immunologic Allergic/Immunologic ED: Denies lip swelling or urticaria EXAM Physical Exam Const Vital Signs: 09/20/23 00:05 Temperature 97.8 F Temperature Source Temporal Pulse Rate 80 Respiratory Rate 16 Blood Pressure 120/42 L Blood Pressure Mean 68 Pulse Ox 96 Positive well nourished and well developed General Appearance ED: well developed HEENT Reports moist mucous membranes Eyes EOMs intact bilaterally Chest Wall inspection of chest normal and palpation of chest normal Resp normal respiratory effort and clear to auscultation bilaterally Cardio regular rate and regular rhythm GI non-tender Palpation: soft Extremity Extremity Narrative: Superficial abrasion on the lateral portion of the left lower leg measuring about 1.5 cm. Mild oozing noted. Psych mental status grossly normal MDM MDM MDM Narrative Medical decision making narrative: Abrasion is not thick enough to require sutures. Wound is cleansed and silver nitrate sticks were used to cauterize the wound. A piece of Surgifoam was then placed over the wound and dressing applied. INR is checked to ensure it is not significantly elevated. Lab Data Labs: Laboratory Results - last 24 hr 09/20/23 00:25 PT 80.8 H INR 9.8 H* Treatment and Re-Evaluation :: Wound was sealed with silver nitrate. Piece of Surgifoam was placed over this along with a dressing. Wound was rechecked and has had no further bleeding. INR returned elevated at 9.8. Patient has no significant bleeding at this time. He will be given 5 mg of p.o. vitamin K. He will hold his Coumadin for at least the next 48 hours. I recommend he have his INR rechecked on Thursday. He will call his PCPs office on Thursday regarding this. Return instructions given. Discharge Plan Triage Chief Complaint: Wound ED Provider: Susanna Gilbert Dx/Rx/DC Orders Clinical Impression: Supratherapeutic INR, Abrasion of left leg Instructions: ED Abrasion Prescriptions: No Action tamsulosin 0.4 mg capsule 0.4 mg PO DAILY 90 Days Qty: 90 glipizide 5 mg tablet See Rx Instructions PO BID 90 Days Rx Instructions: Take 5 mg BID except on morning that sugar is > 140, take 7.5 mg that morning and 5 mg in the evening. cholecalciferol (vitamin D3) 2,000 unit tablet 2,000 unit PO DAILY methocarbamol 750 mg tablet 750 mg PO Q8H PRN (Reason: spasm) Rybelsus 3 mg tablet 3 mg PO DAILY atorvastatin 40 mg tablet 40 mg PO QHS metoprolol succinate 25 mg tablet extended release 24 hr 25 mg PO DAILY hydrocodone-acetaminophen 5-325 mg tablet 1 tab PO QHS PRN Farxiga 10 mg tablet 10 mg PO DAILY nitroglycerin 0.4 mg tablet, sublingual 0.4 mg sublingual Q5M PRN (Reason: chest pain) Qty: 25 3RF Rx Instructions: do not exceed 3 doses per episode pregabalin 150 MG capsule 150 mg PO BID Patient Comments: Pain aspirin 81 MG tablet,chewable 81 mg PO DAILY ondansetron 4 mg tablet,disintegrating 4 mg PO Q8H PRN (Reason: nausea and vomiting) Qty: 14 0RF isosorbide mononitrate 60 mg tablet extended release 24 hr 60 mg PO DAILY Qty: 90 3RF warfarin 1 mg tablet 1 mg PO DAILY Qty: 90 3RF Protocol: Dose Management Condition: Thursday Dose/Route: 1 mg Instruction: 1 x 1 mg tablet Condition: Thursday Dose/Route: 1 mg Instruction: 1 x 1 mg tablet Condition: Thursday Dose/Route: 1 mg Instruction: 1 x 1 mg tablet Condition: Thursday Dose/Route: 1 mg Instruction: 1 x 1 mg tablet Condition: Dose/Route: 1 mg Instruction: 1 x 1 mg tablet Condition: Thursday Dose/Route: 1 mg Instruction: 1 x 1 mg tablet Condition: Thursday Dose/Route: 1 mg Instruction: 1 x 1 mg tablet Protocol Text: Adjustment Start Date: Thursday07/06/23 INR Value: 3.0 INR Date: 07/06/23 Recheck Date: 08/05/23 Primary Care Provider: Renzo Davidson Referrals: Renzo Davidson DO [Primary Care Provider] - 3-5 Days Activity Restrictions/Additional Instructions: Your INR tonight is 9.8. You have been given a dose of vitamin K to help reverse this. Please hold your warfarin (Coumadin). Please call Dr. Davidson's office on Thursday. He will need an INR recheck on Thursday. Disposition Disposition: Home, Self Care
[2023-09-20 01:24] LABS: Prothrombin Time (Protime)PT. 80.8 SECONDS (11.7-14.9)
[2023-09-20 01:27] LABS: International Normalized Ratio 9.8
[2023-09-20 01:42] VITALS: PULSE 82; RESP 16; O2SAT 98
[2023-09-20] MEDS: Phytonadione (Vit K1) 5 MG TABLET PO (01:44)
[2023-09-20] MEDS: Silver Nitrate (BKC) 1 EACH TOPICAL (01:45)
== END 2023-09-20 01:46 | disposition home or self-care (01) ==
PROVIDERS: Emergency Provider Emergency Medicine; PCP Student in an Organized Health Care Education/Training Program; Visit Provider Emergency Medicine
DX: S80.812A Abrasion, left lower leg, initial encounter (principal); I13.0 Hypertensive heart and chronic kidney disease with heart failure and stage 1 through stage 4 chronic kidney disease, or unspecified chronic kidney disease; I50.32 Chronic diastolic (congestive) heart failure; E11.22 Type 2 diabetes mellitus with diabetic chronic kidney disease; I48.0 Paroxysmal atrial fibrillation; R79.1 Abnormal coagulation profile; Z87.891 Personal history of nicotine dependence; Z79.01 Long term (current) use of anticoagulants; I25.2 Old myocardial infarction; I5A Non-ischemic myocardial injury (non-traumatic); Z86.73 Personal history of transient ischemic attack (TIA), and cerebral infarction without residual deficits; E78.5 Hyperlipidemia, unspecified; N18.9 Chronic kidney disease, unspecified; Z79.899 Other long term (current) drug therapy; I25.10 Atherosclerotic heart disease of native coronary artery without angina pectoris; Z79.82 Long term (current) use of aspirin; Z79.84 Long term (current) use of oral hypoglycemic drugs; Z90.49 Acquired absence of other specified parts of digestive tract; X58.XXXA Exposure to other specified factors, initial encounter; Y93.89 Activity, other specified; Y92.019 Unspecified place in single-family (private) house as the place of occurrence of the external cause
CPT/HCPCS: 85610; 99282

== ENCOUNTER 2023-10-14 06:20 | Outpatient (RCR) | payer MEDICARE, OTHER, SELFPAY ==
[2023-09-22 07:43] LABS: International Normalized Ratio 1.9; Prothrombin Time (Protime)PT. 21.6 SECONDS (11.7-14.9)
[2023-09-29 08:51] LABS: International Normalized Ratio 2.1; Prothrombin Time (Protime)PT. 23.4 SECONDS (11.7-14.9)
[2023-10-06 07:32] LABS: Hematocrit 36.5 % (40-54); Hemoglobin 11.7 g/dL (13.0-16.5); Mean Corp Hgb Conc 32.1 g/dL (32-36); Mean Corpuscular Hgb 30.5 pg (27.0-32.0); Mean Corpuscular Volume 95.3 fL (80-94); Platelet Count 179 K/mm3 (150-450); RBC Distribution Width CV 13.8 % (11.6-14.6); RBC Distribution Width SD 47.8 fl (35.1-43.9); Red Blood Count 3.83 M/mm3 (4.6-6.2); White Blood Count 5.7 K/mm3 (4.4-11.0)
[2023-10-06 08:01] LABS: Hemoglobin A1c 6.9 % (3.8-5.6)
[2023-10-06 08:12] LABS: ALB/GLOB Ratio 0.9 RATIO (0.9-2.4); AST(SGOT) 16 U/L (15-37); Alanine Aminotransfer ALT/SGPT 21 U/L (16-61); Albumin, Serum 3.1 g/dL (3.2-5.0); Alkaline Phosphatase 103 U/L (45-117); Anion Gap 4 (5-15); BUN 25 mg/dL (7-18); BUN/Creat Ratio 11.7 RATIO (10-20); Calcium,Total 8.5 mg/dL (8.5-10.1); Chloride 108 mmol/L (98-107); Cholesterol 146 mg/dL (200); Creatinine, Serum 2.14 mg/dL (0.70-1.30); EST Glomerular Filtration Rate 32 mL/min (>60); Est Glom Filt Rate - Afr Amer 39 mL/min (>60); Globulin 3.6 g/dL (2.2-4.2); Glucose 205 mg/dL (74-106); High Density Lipoprotein 42 mg/dL; PSA,Total - Annual Screen 0.39 ng/mL (0.00-4.00); Potassium 4.3 mmol/L (3.5-5.1); Protein, Total 6.7 g/dL (6.4-8.2); Sodium Level 139 mmol/L (136-145); Thyroid Stim Hormone (TSH) 1.04 uIU/mL (0.358-3.74); Triglycerides 327 mg/dL; Very Low Density Lipoprotein 65 mg/dL (5-40)
[2023-10-06 08:40] LABS: International Normalized Ratio 1.6; Prothrombin Time (Protime)PT. 18.9 SECONDS (11.7-14.9)
[2023-10-06 09:16] LABS: PTHIN 98.6 pg/mL (18.4-80.1)
[2023-10-06 09:18] LABS: Vitamin D,25 Hydroxy 61.8 ng/mL
[2023-10-06 11:24] LABS: Microalbumin,Random Urine 47.8 mg/L (NO RANGE EST.); Microalbumin:Creatinine Ratio 26.9 mg/g CRE (<30 mg/g CRE); Protein, Urine (Random) 33.7 mg/dL (<11.9); Protein:Creat Ratio 189 mg/g CRE (0-200)
[2023-10-06 11:55] LABS: BNP,B-Type NATRIURETIC PEPTIDE 26.9 pg/mL (0-100)
[2023-10-14 08:11] LABS: International Normalized Ratio 1.4; Prothrombin Time (Protime)PT. 17.5 SECONDS (11.7-14.9)
== END 2023-10-14 18:00 | disposition home or self-care (01) ==
LOC: LAB 06:20
PROVIDERS: Nurse Practitioner Gerontology; PCP Student in an Organized Health Care Education/Training Program; Referring Provider Internal Medicine Cardiovascular Disease; Visit Provider Internal Medicine Cardiovascular Disease
DX: E11.22 Type 2 diabetes mellitus with diabetic chronic kidney disease (principal); Z79.01 Long term (current) use of anticoagulants; N18.30 Chronic kidney disease, stage 3 unspecified; Z12.5 Encounter for screening for malignant neoplasm of prostate; E11.29 Type 2 diabetes mellitus with other diabetic kidney complication; I50.33 Acute on chronic diastolic (congestive) heart failure; R06.00 Dyspnea, unspecified
CPT/HCPCS: 36415; 80053; 80061; 82043; 82306; 82570; 83036; 83880; 83970; 84153; 84156; 84443; 85027; 85610; G0103

== ENCOUNTER 2023-11-04 06:21 | Outpatient (RCR) | payer MEDICARE, OTHER, SELFPAY ==
[2023-10-22 11:02] LABS: International Normalized Ratio 2.1; Prothrombin Time (Protime)PT. 23.7 SECONDS (11.7-14.9)
[2023-11-04 06:43] LABS: International Normalized Ratio 2.3; Prothrombin Time (Protime)PT. 25.8 SECONDS (11.7-14.9)
== END 2023-11-12 18:00 | disposition home or self-care (01) ==
LOC: LAB 06:21
PROVIDERS: PCP Student in an Organized Health Care Education/Training Program; Referring Provider Internal Medicine Cardiovascular Disease; Visit Provider Internal Medicine Cardiovascular Disease
DX: I48.0 Paroxysmal atrial fibrillation (principal); Z79.01 Long term (current) use of anticoagulants
CPT/HCPCS: 36415; 85610

== ENCOUNTER → 2023-11-16 | Outpatient (CLI) | payer MEDICARE, OTHER, SELFPAY ==
[2023-11-16 13:14] LABS: Hematocrit 38.5 % (40-54); Hemoglobin 12.4 g/dL (13.0-16.5); Mean Corp Hgb Conc 32.2 g/dL (32-36); Mean Corpuscular Hgb 29.8 pg (27.0-32.0); Mean Corpuscular Volume 92.5 fL (80-94); Platelet Count 180 K/mm3 (150-450); RBC Distribution Width CV 12.9 % (11.6-14.6); RBC Distribution Width SD 43.7 fl (35.1-43.9); Red Blood Count 4.16 M/mm3 (4.6-6.2); White Blood Count 6.3 K/mm3 (4.4-11.0)
[2023-11-16 13:22] LABS: Protein, Urine (Random) 48.3 mg/dL (<11.9); Protein:Creat Ratio 261 mg/g CRE (0-200)
[2023-11-16 13:38] LABS: Albumin, Serum 3.3 g/dL (3.2-5.0); BUN 28 mg/dL (7-18); BUN/Creat Ratio 12.7 RATIO (10-20); Calcium,Total 8.6 mg/dL (8.5-10.1); Chloride 110 mmol/L (98-107); EST Glomerular Filtration Rate 31 mL/min (>60); Est Glom Filt Rate - Afr Amer 38 mL/min (>60); Glucose 188 mg/dL (74-106); Phosphorus 2.9 mg/dL (2.5-4.9); Potassium 4.3 mmol/L (3.5-5.1); Sodium Level 138 mmol/L (136-145)
[2023-11-16 13:39] LABS: PTHIN 72.7 pg/mL (18.4-80.1)
[2023-11-16 13:43] LABS: Vitamin D,25 Hydroxy 63.1 ng/mL
== END | disposition home or self-care (01) ==
LOC: LAB 12:41
PROVIDERS: PCP Student in an Organized Health Care Education/Training Program; Referring Provider Internal Medicine Nephrology; Visit Provider Internal Medicine Nephrology
DX: N18.32 Chronic kidney disease, stage 3b (principal); E55.9 Vitamin D deficiency, unspecified
CPT/HCPCS: 36415; 80069; 82306; 82570; 83970; 84156; 85027

== ENCOUNTER 2023-11-25 08:12 | Outpatient (RCR) | payer MEDICARE, OTHER, SELFPAY ==
[2023-11-25 09:50] LABS: Prothrombin Time (Protime)PT. 22.9 SECONDS (11.7-14.9)
== END 2023-12-13 01:15 | disposition home or self-care (01) ==
LOC: LAB 08:12
PROVIDERS: PCP Student in an Organized Health Care Education/Training Program; Referring Provider Internal Medicine Cardiovascular Disease; Visit Provider Internal Medicine Cardiovascular Disease
DX: I48.0 Paroxysmal atrial fibrillation (principal); Z79.01 Long term (current) use of anticoagulants; N18.30 Chronic kidney disease, stage 3 unspecified; Z12.5 Encounter for screening for malignant neoplasm of prostate; E11.29 Type 2 diabetes mellitus with other diabetic kidney complication; E11.22 Type 2 diabetes mellitus with diabetic chronic kidney disease
CPT/HCPCS: 36415; 85610

== ENCOUNTER 2024-01-07 13:41 | Outpatient (RCR) | payer MEDICARE, OTHER, SELFPAY ==
[2024-01-07 15:31] LABS: International Normalized Ratio 2.8; Prothrombin Time (Protime)PT. 28.9 SECONDS (11.7-14.9)
== END 2024-01-12 23:51 | disposition home or self-care (01) ==
LOC: LAB 13:41
PROVIDERS: PCP Student in an Organized Health Care Education/Training Program; Referring Provider Internal Medicine Cardiovascular Disease; Visit Provider Internal Medicine Cardiovascular Disease
DX: I48.0 Paroxysmal atrial fibrillation (principal); Z79.01 Long term (current) use of anticoagulants; N18.30 Chronic kidney disease, stage 3 unspecified; Z12.5 Encounter for screening for malignant neoplasm of prostate; E11.29 Type 2 diabetes mellitus with other diabetic kidney complication
CPT/HCPCS: 36415; 85610

== ENCOUNTER → 2024-01-07 | Outpatient (CLI) | payer MEDICARE, OTHER, SELFPAY ==
--- NOTE | 2024-01-07 14:04 | CT_ITS ---
STUDY: CT SOFT TISSUE NECK WITH CONTRAST REASON FOR EXAM: Male, 73 years old. 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 High resolution transaxial imaging was performed following intravenous administration of IV 75mL Isovue-370. Sagittal and coronal images were reconstructed. Individualized dose optimization techniques were used for this CT. COMPARISON: None. FINDINGS: Suggestion of thickening of the epiglottis especially of the midline and the right side as suggested on axial images 47-57 and extending toward the aryepiglottic fold on the right, along with some thickening of the posterior wall of the larynx on the right. Findings could be inflammatory or neoplastic and direct visualization by ENT exam is recommended. No other suggestion of mass. Normal bilateral parotid glands. Normal bilateral bank boss spaces. Normal bilateral parapharyngeal spaces. Normal bilateral carotid spaces. Prominent carotid artery calcifications. Normal bilateral sublingual and submandibular glands and spaces. Normal visualized nasopharynx. Normal retropharyngeal space. Normal perivertebral space. Normal visualized bilateral faucial tonsils. The visualized tongue, tongue base and oropharynx are normal. The visualized cervical lymph nodes (levels I-) are within normal size limits, and maintain normal morphology. There is no demonstrated solid or cystic mass lesion. There is no abnormal contrast enhancement. Normal visualized vocal cords, and arytenoid-cricoid articulations. Normal subglottic trachea. Normal bilateral lobes of the thyroid gland. Normal visualized pulmonary apices. Normal visualized paranasal sinuses. There is multilevel degenerative changes of the cervical spine. CT/Soft Tissue Neck WITH Contrast IMPRESSION: Suggestion of thickening of the epiglottis especially of the midline and the right side and extending toward the aryepiglottic fold on the right, along with some thickening of the posterior wall of the larynx on the right. Findings could be inflammatory or neoplastic and direct visualization by ENT exam is recommended. Electronically Signed: Lacho Lyles MD at 20:20 EDT ,
[2024-01-07 14:42] LABS: CREATININE FINGERSTICK 2.1 mg/dL (0.70-1.30)
== END | disposition home or self-care (01) ==
LOC: CT 14:03
PROVIDERS: PCP Student in an Organized Health Care Education/Training Program; Referring Provider Otolaryngology; Visit Provider Otolaryngology
DX: C10.1 Malignant neoplasm of anterior surface of epiglottis (principal)
CPT/HCPCS: 70491; Q9967; A4216

== ENCOUNTER 2024-01-18 05:54 | Day surgery (SDC) | payer MEDICARE, OTHER, SELFPAY ==
--- NOTE | 2024-01-11 08:22 | EKG12_ITS ---
Test Reason : PRE-OP Blood Pressure : / mmHG Vent. Rate : 076 BPM Atrial Rate : 076 BPM P-R Int : 174 ms QRS Dur : 102 ms QT Int : 380 ms P-R-T Axes : 052 -19 062 degrees QTc Int : 427 ms Normal sinus rhythm Normal ECG Confirmed by NASH OSCAR, REINIER ([id number]), features editor KATY AMES ([id number]) on 01/11/2024 1:43:22 PM Referred By: Elton Sanchez Confirmed By:STAN CAO MD
[2024-01-11 09:44] LABS: Hematocrit 39.1 % (40-54); Hemoglobin 12.5 g/dL (13.0-16.5); Mean Corpuscular Hgb 29.6 pg (27.0-32.0); Mean Corpuscular Volume 92.4 fL (80-94); Mean Platelet Vol. 10.2 fl (6.2-12.0); Platelet Count 191 K/mm3 (150-450); RBC Distribution Width CV 13.3 % (11.6-14.6); RBC Distribution Width SD 45.4 fl (35.1-43.9); Red Blood Count 4.23 M/mm3 (4.6-6.2); White Blood Count 7.6 K/mm3 (4.4-11.0)
[2024-01-11 11:29] LABS: Anion Gap 7 (5-15); BUN 28 mg/dL (7-18); BUN/Creat Ratio 11.5 RATIO (10-20); Calcium,Total 8.9 mg/dL (8.5-10.1); Chloride 108 mmol/L (98-107); Creatinine, Serum 2.44 mg/dL (0.70-1.30); EST Glomerular Filtration Rate 28 mL/min (>60); Est Glom Filt Rate - Afr Amer 34 mL/min (>60); Glucose 149 mg/dL (74-106); Potassium 4.2 mmol/L (3.5-5.1); Sodium Level 140 mmol/L (136-145)
--- NOTE | 2024-01-18 | IMM_PTH ---
PATIENT: TYRELL REYES LOC: [facility] [place] U#:[id number] AGE/SX: 73/M ROOM: RE01/18/[address]: Dr. Elton Sanchez MD : 1950 BED: DIS: 01/18/2024 SPEC #: [id number] RECD: 01/19/24 13:28 STATUS: CAITLIN REQ #: [id number] MICHELLE: 01/18/24 00:[address]: Elton Sanchez DEPT: IMMUNOHISTOCHEMISTRY RECD BY: Tucker Bianchi ENTERED: 01/19/24 13:29 SP TYPE: IMMUNO OTHR DR: Dr. Renzo Davidson DO Tissues: Epiglottis, NOS Procedures: CK20 (add) CK5-6 (add) CK7 (add) CK8 (add) KI-67 (add) P16 (add) Pankeratin (initial) P40 (add) PHYSICIAN & INSTITUTION [place] [id number] SPECIMEN INFORMATION: Tissue Source: Epiglottis mass Clinical Info: Malignant neoplasm of epiglottis free boarder Specimen Number: [id number] CPT code: 06387,60330n5 METHODOLOGY: Deparaffinized sections of prefer/formalin-fixed tissue or PAP/DQ stained slides are incubated with monoclonal/polyclonal antibodies/oligonucleotide probes. Localization is made via biotin free immunoperoxidase method. Appropriate controls are performed and reacted as expected. Results on target cell population are indicated in the following table: RESULTS: ANTIBODY / CLONE RESULT AE1-3 (AE1/AE3/PCK26) positive CK7 (OV-TL12/30) negative CK8 (74wwhfG35) positive CK20 (KS20.8) negative CK5-6 (D5 & 1684) positive P40 (BC28) positive P16 (E6H4) negative Ki-67 (30-9) positive, high >90% These tests were developed and their performance characteristics determined by [facility]. They may not have been cleared or approved by the U.S. Food and Drug Administration. The FDA has determined that such clearance or approval is not necessary. The above immunohistochemical/dualISH markers are ordered and reviewed by the Pathologist. INTERPRETATION: Epiglottis mass, Microlaryngoscopy: Invasive moderately differentiated squamous cell carcinoma. MIRIAM/ 01/20/24
[2024-01-18 06:14] LABS: INR Fingerstick 1.5; Prothrombin Time Fingerstick 16.6 SEC (11.7-14.9)
[2024-01-18 06:34] VITALS: BP 146/57; PULSE 76; RESP 18; TEMP 36.5; O2SAT 94; BMI 30.4
[2024-01-18] MEDS: Lactated Ringers 1,000 ML 15 ML IV (06:38)
[2024-01-18 07:04] LABS: International Normalized Ratio 1.7; Prothrombin Time (Protime)PT. 19.7 SECONDS (11.7-14.9)
[2024-01-18 07:06] LABS: Bedside Glucose 141 mg/dL (74-106)
--- NOTE | 2024-01-18 07:30 | MASS_PTH ---
PATIENT: TYRELL REYES [place] [facility] [place][id number] AGE/SX: 73/M ROOM: RE01/18/[address]: Dr. Elton Sanchez MD : 1950 BED: DIS: 01/18/2024 SPEC #: [id number] RECD: 01/18/24 09:52 STATUS: CAITLIN SALINAS #: [id number] MICHELLE: 01/18/24 07:[address]: Elton Sanchez DEPT: SURGICAL PATHOLOGY RECD BY: Rafi Kathleen ENTERED: 01/18/24 12:20 SP TYPE: Mass OTHR DR: Dr. Renzo Davidson, DO Tissues: Epiglottis, NOS Procedures: Surgery Specimen Level IV HEADER OPERATION: Microlaryngoscopy PRE-OP DIAGNOSIS: Malignant neoplasm of epiglottis [place] TISSUE SUBMITTED: Epiglottis mass MICROSCOPIC DIAGNOSIS Epiglottis mass, biopsy: Invasive moderately differentiated squamous cell carcinoma. See comment. MIRIAM/ 01/19/24 COMMENT Immunohistochemistry ([id number]) supports the above diagnosis. Immunohistochemistry for surrogate HPV marker (p16) is being performed and results will be reported separately. MICROSCOPIC DESCRIPTION Slides are reviewed. GROSS DESCRIPTION Received in fixative is one container labeled with the patient's name and designated Epiglottis mass. The specimen consists of multiple pieces of otero soft tissue in aggregate 1.0 x 1.0 x 0.3cm. The entire specimen is submitted in one cassette. SJ/mr 01/18/24 TC: 0 CPT:89266
--- NOTE | 2024-01-18 07:41 | PCM.DC.SUM ---
Providers Primary Care Physician: Dr. Renzo Davidson DO Reason For Visit: Microlaryngoscopy Medications at Discharge Home Medications pregabalin 150 mg capsule 150 mg PO BID pain 11/06/15 tamsulosin 0.4 mg capsule 0.4 mg PO DAILY prostate 90 days #90 caps 12/24/18 cholecalciferol (vitamin D3) 50 mcg (2,000 unit) tablet 2,000 unit PO DAILY vitamin 06/24/19 methocarbamol 750 mg tablet 750 mg PO Q8H PRN spasm 11/08/19 aspirin 81 mg chewable tablet 81 mg PO DAILY heart health 03/22/20 atorvastatin 40 mg tablet 40 mg PO QHS 01/06/22 glipizide 5 mg tablet 5 mg PO BID diabetes 90 days 01/06/22 metoprolol succinate 25 mg tablet,extended release 24 hr 25 mg PO QHS 01/06/22 hydrocodone-acetaminophen 5-325mg 5mg-325mg 1 tab PO QHS PRN pain 07/09/22 dapagliflozin propanediol 10 mg tablet (Farxiga) 10 mg PO DAILY 10/13/22 nitroglycerin 0.4 mg sublingual tablet 0.4 mg sublingual Q5M PRN chest pain #25 tabs 10/13/22 semaglutide 3 mg tablet (Rybelsus) 14 mg PO DAILY 02/03/23 warfarin 1 mg tablet 0.5 mg PO .COMPLEX #90 tabs 09/22/23 Weight / BMI Weight Weight: 88 kg Body Mass Index (BMI) 30.4 ABG / Lab / Microbiology Data 01/11/24 08:35 01/11/24 08:35 Laboratory: Laboratory Results - last 24 hr 01/18/24 06:12: POC PT 16.6 H, INR 1.5 01/18/24 06:25: PT 19.7 H, INR 1.7 01/18/24 06:48: POC Glucose 141 H D/C Instructions Discharge Diet: Soft diet Discharge Activity: Return to Normal Activity Please Follow Up With: Elton Sanchez MD When: next week Meaningful Use Info Meaningful Use Meaningful Use Diagnoses (Choose all that apply): None applicable Ischemic Stroke Statin Dosing Therapy Reference: STATIN DOSE THERAPY REFERENCE: * Patients > 75 years receive moderate or high dose statin therapy. * Patients 75 years or YOUNGER should receive HIGH intensity statin dose unless contraindicated. You will be required to document reason for non-treatment if statin daily dose does not meet guidelines. HIGH DOSE STATIN THERAPY DAILY Atorvastatin > than or = to 40 mg Rosuvastatin > than or = to 20 mg Amlodipine + Atorvastatin > than or = to 2.5/40 mg Ezetimibe + Simvastatin 10/80 mg Simvastatin 80mg Discharge Plan Admission Attending Provider: Elton Sanchez Primary Care Provider: Renzo Davidson Discharge Orders/Prescriptions Prescriptions: No Action tamsulosin 0.4 mg capsule 0.4 mg PO DAILY 90 Days Qty: 90 glipizide 5 mg tablet 5 mg PO BID 90 Days Rx Instructions: take 7.5 mg that morning and 5 mg in the evening. cholecalciferol (vitamin D3) 2,000 unit tablet 2,000 unit PO DAILY methocarbamol 750 mg tablet 750 mg PO Q8H PRN (Reason: spasm) Rybelsus 3 mg tablet 14 mg PO DAILY atorvastatin 40 mg tablet 40 mg PO QHS metoprolol succinate 25 mg tablet extended release 24 hr 25 mg PO QHS hydrocodone-acetaminophen 5-325 mg tablet 1 tab PO QHS PRN (Reason: pain) Farxiga 10 mg tablet 10 mg PO DAILY nitroglycerin 0.4 mg tablet, sublingual 0.4 mg sublingual Q5M PRN (Reason: chest pain) Qty: 25 3RF Rx Instructions: do not exceed 3 doses per episode pregabalin 150 MG capsule 150 mg PO BID Patient Comments: Pain aspirin 81 MG tablet,chewable 81 mg PO DAILY warfarin 1 mg tablet 0.5 mg PO .COMPLEX Qty: 90 3RF Protocol: Dose Management Condition: Thursday Dose/Route: 0.5 mg Instruction: 0.5 x 1 mg tablets Condition: Thursday Dose/Route: 1 mg Instruction: 1 x 1 mg tablet Condition: Thursday Dose/Route: 1 mg Instruction: 1 x 1 mg tablet Condition: Thursday Dose/Route: 1 mg Instruction: 1 x 1 mg tablet Condition: Dose/Route: 1 mg Instruction: 1 x 1 mg tablet Condition: Thursday Dose/Route: 1 mg Instruction: 1 x 1 mg tablet Condition: Thursday Dose/Route: 0.5 mg Instruction: 0.5 x 1 mg tablets Protocol Text: Adjustment Start Date: 01/07/24 INR Value: 2.8 INR Date: 01/07/24 Recheck Date: 02/06/24 Patient Comments: TO HOLD 5 DAYS PRIOR TO SURGERY Rx Instructions: 0.5 mg orally daily; please give 90 pills as dose changes often.; Other Ambulatory Orders: 12 Lead EKG (Routine) Timeframe: [id number] Location: None Selected Ordered By: Dr. Elton Sanchez Referrals / Follow Up: Renzo Davidson DO [Primary Care Provider] - Disposition Disposition (needs filled in before D/C Order can be placed): Home, Self Care
[2024-01-18] MEDS: Epinephrine (1 mg/ml) 1 MG/ML VIAL (07:48)
--- NOTE | 2024-01-18 07:58 | PCM.OPRPT ---
Report of Operation Date of Procedure: 01/18/24 Pre-Operative Diagnosis: epiglottic mass Post-Operative Diagnosis: same Surgery/Procedure Performed:: Direct laryngoscopy with biopsy Description of Surgical Findings:: Epiglottic mass extending to right AE fold Surgeon: Elton Sanchez Type of Anesthesia: General Anesthesiologist: Saran Cramer Estimated Blood Loss (mL): minimal Description of Procedure: The patient was taken to the operating room on 01/18/2024. He was placed in the supine position on the operating table. Given sufficient general endotracheal anesthesia. Patient was draped sterilely. A gum guard was placed on the upper gingiva. A Dedo laryngoscope inserted the patient's mouth and into the oropharynx. The vallecula and base of tongue were normal. The left pyriform sinus was normal the true vocal cords were edematous but normal. The right pyriform sinus was also normal. There was an exophytic mass on the laryngeal surface of the epiglottis extending down to the AE fold on the right-hand side. Multiple biopsies were taken of the mass with up-biting cup forceps. This was sent for permanent section. Hemostasis was achieved with topical adrenaline on pledgets. Once hemostasis was achieved all instrumentation was removed. The patient was then awoken and brought to recovery room in stable condition blood loss minimal, replacement none. Sponge, needle, and instrument count were correct at the end of the procedure.
[2024-01-18 08:08] VITALS: BP 120/53; BP 146/57; PULSE 65; RESP 16; TEMP 35.8; O2SAT 94
[2024-01-18 08:10] VITALS: BP 124/56; BP 146/57; PULSE 68; RESP 16; O2SAT 94
[2024-01-18 08:15] VITALS: BP 120/84; BP 146/57; PULSE 72; RESP 16; O2SAT 97
[2024-01-18 08:30] VITALS: BP 146/57; BP 148/63; PULSE 64; RESP 16; TEMP 36.1; O2SAT 95
[2024-01-18 08:53] VITALS: BP 146/57
[2024-01-18 08:59] LABS: Bedside Glucose 131 mg/dL (74-106)
== END 2024-01-18 09:00 | disposition home or self-care (01) ==
LOC: SDC 05:55 → AC 05:56
PROVIDERS: Anesthesiology; PCP Student in an Organized Health Care Education/Training Program; Referring Provider Otolaryngology; Visit Provider Otolaryngology
PROC: 0CJS8ZZ Inspection of Larynx, Via Natural or Artificial Opening Endoscopic (ICD-10-PCS; CPT 31575; principal; 2024-01-18 07:25)
DX: C32.1 Malignant neoplasm of supraglottis (principal); N18.4 Chronic kidney disease, stage 4 (severe); I50.32 Chronic diastolic (congestive) heart failure; I13.0 Hypertensive heart and chronic kidney disease with heart failure and stage 1 through stage 4 chronic kidney disease, or unspecified chronic kidney disease; I48.0 Paroxysmal atrial fibrillation; E11.22 Type 2 diabetes mellitus with diabetic chronic kidney disease; I25.10 Atherosclerotic heart disease of native coronary artery without angina pectoris; I25.2 Old myocardial infarction; Z86.73 Personal history of transient ischemic attack (TIA), and cerebral infarction without residual deficits; Z87.891 Personal history of nicotine dependence; Z79.82 Long term (current) use of aspirin; Z79.84 Long term (current) use of oral hypoglycemic drugs; Z79.899 Other long term (current) drug therapy; Z79.01 Long term (current) use of anticoagulants
CPT/HCPCS: 31536; 00320; 36415; 36416; 80048; 82962; 85027; 85610; 88305; 88341; 88342; 93005; J7120; J2405

== ENCOUNTER → 2024-02-02 | Outpatient (CLI) | payer MEDICARE, OTHER, SELFPAY | END | disposition home or self-care (01) | LOC: ONC 07:35 | PROVIDERS: PCP Student in an Organized Health Care Education/Training Program; Referring Provider Otolaryngology; Visit Provider Otolaryngology | DX: C10.1 Malignant neoplasm of anterior surface of epiglottis (principal) ==

== ENCOUNTER → 2024-02-15 | Outpatient (CLI) | payer MEDICARE, OTHER, SELFPAY ==
--- NOTE | 2024-02-15 14:35 | SP.MBSS_ITS ---
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 He is planned 6.5 weeks of radiation treatment beginning 02/22/2024. He is not a candidate for chemotherapy. BSE with EXTENSION DIVISION DIRECTOR 02/11/24 revealing mild oropharyngeal dysphagia and recommending Regular textures / Thin liquids with compensatory strategies to decrease risk for aspiration. EXTENSION DIVISION DIRECTOR recommended MBSS prior to radiation treatment to further assess swallow function and aspiration risk. Hx of MBSS in 2014, which revealed Mild pharyngoesophageal dysphagia. No follow up dysphagia therapy was completed. Over the years, he has felt that food/pills get caught in his throat. At times, he has to bring it back up to get it back down. A few weeks ago he had tuna, noodles, applesauce, and peas with regurgitation of peas. He also has trouble swallowing pills. He had one pill get caught in his throat and it caused a burning sensation. 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 Taste has been diminished for years. Mild xerostomia currently. Other PMH: CHF, Carcinoma of epiglottis, Smoker, Wears hearing aid and dentures, Alcohol use, Neuropathy, Difficulty swallowing, Sleep apnea, Shortness of breath on exertion, A fib, Hx of CVA (10/2015), HTN, NSTEMI, Upper GI bleed, Chronic renal failure, HLD, Atherosclerosis of coronary artery of [place] heart without angina pectoris, Stenosis of left subclavian artery, CKD, DDD, Marijuana use, Diabetic neuropathy, Osteoarthritis, DM type 2, See EMR for full PMH). Current Diet Ordered: Regular textures / Thin liquids Dentition: Edentulous Mental Status: WNL Respiratory Status: Oxygenating on Room Air Penetration-Aspiration Scale Penetration-Aspiration Scale: OBJECTIVE ASSESSMENT OF SWALLOW FUNCTION (QUANTITATIVE ? PER TRIAL): PENETRATION / ASPIRATION SCALE (BURRELL): 1 = does not enter airway 2 = enters airway/above vocal folds/ejected 3 = enters airway/above vocal folds/not ejected 4 = enters airway/contacts vocal folds/ejected 5 = enters airway/contacts vocal folds/not ejected 6 = enters airway/below vocal folds/ejected 7 = enters airway/below vocal folds/not ejected despite effort 8 = enters airway/below vocal folds/no effort VIDEOFLOROSCOPIC SCALE SCORE (BURRELL): Grade I = aspiration of material that has penetrated into the laryngeal vestibule, intact cough reflex Grade II = aspiration < 10 % of the bolus, intact cough reflex Grade III = aspiration of < 10 % of the bolus, reduced cough reflex or aspiration of > 10 % of the bolus, intact cough reflex Grade IV = aspiration of > 10 % of the bolus, reduced cough reflex Penetration-Aspiration Scale Score Thin Liquid via teaspoon: Result: 3= enters airways/above vocal folds/not ejected Thin Liquid via teaspoon Trial 2: Result: 5= enters airways/contacts vocal folds/not ejected Thin Liquid via large single sip: cup: Result: 3= enters airways/above vocal folds/not ejected [place] Thick Liquid via large single sip: cup: Result: 3= enters airways/above vocal folds/not ejected (SILENT post prandial aspiration of residues of previous trials) Pudding via teaspoon: Result: 1= does not enter airway Thin Liquid via single sip: straw: Result: 3= enters airways/above vocal folds/not ejected Comment: Barium residue in trachea seen as the swallow is being completed, EXTENSION DIVISION DIRECTOR suspects post prandial aspiration of residue in laryngea vestibule from previous trials (thin and thickened liquids). 09/17 Cookie: Result: 1= does not enter airway Thin Liquid via large single sip: cup Effortful swallow: Result: 3= enters airways/above vocal folds/not ejected Thin Liquid via large single sip: cup Chin tuck: Result: 8= enters airway/below vocal folds/no effort Thin Liquid via large single sip: cup Left head turn: Result: 8= enters airway/below vocal folds/no effort Honey Thick Liquid via small single sip: cup: Result: 3= enters airways/above vocal folds/not ejected Oral Phase Labial Seal: Interlabial escape, no progression to anterior lip Tongue Control During Bolus Hold: Posterior escape of less than half of bolus Bolus Preparation/Mastication: Disorganized chewing/mashing with solid pieces of bolus unchewed (small pieces of cookie appeared un-chewed) Bolus Transport/Lingual Motion: Delayed initiation of tongue motion Oral Residue: Trace residue lining oral structures Pharyngeal Phase Initiation of Pharyngeal Swallow: Bolus head at posterior laryngeal surgace of epiglottis Soft Palate Elevation: Trace column of contrast/air between soft palate and p haryngeal wall Laryngeal Elevation: Partial superior movement thyroid cart/partial apprx aryt- epig petiole Anterior Hyoid Excursion: Partial anterior movement Epiglottic Movement: No inversion Laryngeal Vestibule Closure at Height of Swallow: Incomplete; narrow column of air/contrast in laryngeal vestibule Pharyngeal Stripping Wave: Absent Pharyngoesophageal Segment Opening: Parital distension and partial duration; parital obstruction of flow Tongue Base Retraction: Narrow column of contrast between tongue base & post. pharyngeal wall Pharyngeal Residue: Collection of residue within or on pharyngeal structures Esophageal Phase Esophageal Clearance: Esophageal retention w/ retrograde flow below pharyngoesophageal seg. Diagnosis/Impression Diagnosis: Mild oral dysphagia R13.11; Moderate pharyngoesophageal dysphagia R13.14 Impression: The oral phase is primarily marked by... -Mildly decreased bolus control with premature posterior loss of large sips of liquids. -Slowed and decreased mastication with small pieces of cookie bolus appearing un-chewed. The pharyngeal phase is primarily marked by... -Large, anterior bony protrusions from C2-C4, which Dr. Mckeon reviewed and confirmed were cervical osteophytes. These osteophytes appear to be negatively impacting epiglottic inversion and pharyngeal stripping wave resulting in decreased ability to clear boluses through the pharynx during the swallow. -Decreased airway closure during the swallow due to decreased anterior hyoid excursion, decreased laryngeal elevation, and no epiglottic inversion. -Consistent laryngeal penetration of liquids, mostly laryngeal penetration of liquid residues in the pharynx after the swallow. SILENT post prandial aspiration of thin liquids (and suspected residues of thickened liquids). The esophageal phase is primarily marked by... -Retention and retrograde flow of pudding and thin liquids with retrograde flow. Liquid wash did not appear to clear pudding retention. -Retention of cookie in the mid and lower esophagus with retrograde flow. Recommendations Diet: Regular Textures and Thin Liquids Comment: STOP food/drink and resume later if concern for reflux, retention, or regurgitation, and resume food/drink at a later time. Compensatory Strategies: Small Bites, Small Sips (Cough and re-swallow after every 1-2 sips), Slow Rate, Sitting upright and Remain sitting upright for 30 minutes after PO intake (60 min) Recommend Repeat Modified Barium Swallow: Yes Comment: Repeat MBSS 3 months after completion of radiation to monitor swallow function as the patient is at risk for worsening dysphagia and aspiration risk s/p radiation treatment. Need for Skilled Speech Therapy Services: Yes Comment: Recommend continued OP ST during and following radiation treatment for ongoing assessment of diet tolerance and aspiration risk, education re: potential short- and long-term impacts of radiation that negatively impact swallow function, training in oropharyngeal exercise program, and training in recommended strategies to encourage safe po intake. Recommended Referrals: GI Consult Education Completed: 1. Described result of evaluation., 2. Pt understands evaluation & agrees with goals and treatment plan. and 7. Pt requires further education on strategies & risks. Status Active ST Patient: Active Contact Information [facility] Speech Therapy:: Betsy Nguyen M.A. [facility] DIV[facility] DIRECTOR? Speech-Language Pathologist?? [facility] [address]?? [place] [address]?? [email or web address]?? [phone]
== END | disposition home or self-care (01) ==
LOC: RAD 13:10
PROVIDERS: PCP Student in an Organized Health Care Education/Training Program; Referring Provider Student in an Organized Health Care Education/Training Program; Visit Provider Student in an Organized Health Care Education/Training Program
DX: C32.1 Malignant neoplasm of supraglottis (principal)
CPT/HCPCS: 74230; 92611

== ENCOUNTER 2024-02-22 09:28 | Outpatient (RCR) | payer MEDICARE, OTHER, SELFPAY ==
[2024-02-22 10:17] LABS: International Normalized Ratio 1.3; Prothrombin Time (Protime)PT. 16.2 SECONDS (11.7-14.9)
== END 2024-02-22 18:00 | disposition home or self-care (01) ==
LOC: LAB 09:28
PROVIDERS: PCP Student in an Organized Health Care Education/Training Program; Referring Provider Internal Medicine Cardiovascular Disease; Visit Provider Internal Medicine Cardiovascular Disease
DX: I48.0 Paroxysmal atrial fibrillation (principal); Z79.01 Long term (current) use of anticoagulants; N18.30 Chronic kidney disease, stage 3 unspecified; Z12.5 Encounter for screening for malignant neoplasm of prostate; E11.29 Type 2 diabetes mellitus with other diabetic kidney complication; E11.22 Type 2 diabetes mellitus with diabetic chronic kidney disease
CPT/HCPCS: 36415; 85610

== ENCOUNTER 2024-02-25 05:57 | Day surgery (SDC) | payer MEDICARE, OTHER, SELFPAY ==
[2024-02-25] VITALS (9 sets, daily range): BP systolic 77–135; BP diastolic 33–62; PULSE 73–81; RESP 16–20; TEMP 36.6–36.8; O2SAT 92–99; BMI 29.1
[2024-02-25 06:06] LABS: INR Fingerstick 1.7; Prothrombin Time Fingerstick 17.9 SEC (11.7-14.9)
[2024-02-25] MEDS: Lactated Ringers 1,000 ML 15 ML IV (06:40)
--- NOTE | 2024-02-25 06:40 | HP.PCM_ITS ---
History and Physical Date of Admission: 02/25/24 Visit Reasons: PEG TUBE, POSSIBLE PORT Chief Complaint: peg tube, possible port Accompanied by: Is patient in pain?: No Allergies Iodinated Contrast Media (iodine contrast) Adverse Reaction (Mild, Verified 02/12/24 07:57) Vomitingmetformin Adverse Reaction (Verified 02/12/24 07:57) Nausea/Vom/Diarrhea Medications ?Medication ?Instructions ?Recorded ?Confirmed ?Type pregabalin 150 mg capsule 150 mg PO BID pain 11/06/15 02/12/24 History tamsulosin 0.4 mg capsule 0.4 mg PO DAILY prostate 90 days 12/24/18 02/12/24 History #90 caps cholecalciferol (vitamin D3) 50 2,000 unit PO DAILY vitamin 06/24/19 02/12/24 History mcg (2,000 unit) tablet methocarbamol 750 mg tablet 750 mg PO Q8H PRN spasm 11/08/19 02/12/24 History aspirin 81 mg chewable tablet 81 mg PO DAILY heart health 03/22/20 02/12/24 History atorvastatin 40 mg tablet 40 mg PO QHS 01/06/22 02/12/24 History glipizide 5 mg tablet 5 mg PO BID diabetes 90 days 01/06/22 02/12/24 History metoprolol succinate 25 mg 25 mg PO QHS 01/06/22 02/12/24 History tablet,extended release 24 hr hydrocodone-acetaminophen 5-325mg 1 tab PO QHS PRN pain 07/09/22 02/12/24 History 5mg-325mg dapagliflozin propanediol 10 mg 10 mg PO DAILY 10/13/22 02/12/24 History tablet (Farxiga) nitroglycerin 0.4 mg sublingual 0.4 mg sublingual Q5M PRN chest 10/13/22 02/12/24 Rx tablet pain #25 tabs semaglutide 3 mg tablet (Rybelsus) 14 mg PO DAILY 02/03/23 02/12/24 History warfarin 1 mg tablet 0.5 mg PO .COMPLEX #90 tabs 09/22/23 02/12/24 Rx PFSH Medical History Chronic diastolic (congestive) heart failure Carcinoma of epiglottis Smoker Wears hearing aid Wears dentures Alcohol use Abrasion Ambulates with cane Neuropathy Easy bruising Excessive bleeding Back pain Blackout Difficulty swallowing Former smoker Sleep apnea Shortness of breath on exertion Leg cramps History of edema Stroke/cerebrovascular accident History of atrial fibrillation History of echocardiogram History of stress test Cardiology follow-up encounter Hypertension Acute on chronic diastolic (congestive) heart failure History of non-ST elevation myocardial infarction (NSTEMI) (11/02/19) Upper GI bleed (11/02/19) Paroxysmal atrial fibrillation History of CVA (cerebrovascular accident) (10/2015) Chronic renal failure Claudication Peripheral vascular occlusive disease Hyperlipidemia Atherosclerosis of coronary artery of [place] heart without angina pectoris Stenosis of left subclavian artery Anxiety and depression Obstructive sleep apnea CKD (chronic kidney disease) DDD (degenerative disc disease) Marijuana use Narcolepsy Diabetic neuropathy Osteoarthritis Type 2 diabetes mellitus Lacunar infarct, acute Surgical History History of cataract surgery History of colonoscopy History of cholecystectomy (~10/2020) History of left heart catheterization (11/13/04) History of angioplasty of peripheral vessel (09/2018) Family History Brother Cancer lung Social History Smoking Status: Current every day smoker tobacco type: cigarettes Tobacco: How many years used: 45 how long ago did patient quit smokin years ago alcohol intake: current alcohol intake frequency: 0-2 drinks per day Alcohol type: hard liquor substance use type: marijuana caffeine: Yes Type: carbonated beverages Number of servings: 1 HPI HPI HPI: 73-year-old gentleman is being referred by Dr. Janey Mendoza for surgical consultation regarding placement of percutaneous endoscopic gastrostomy tube to facilitate nutrition while the patient is undergoing radiation therapy for squamous cell carcinoma of the supraglottic larynx.. His stage III chronic renal disease inhibits his receiving cisplatin. In addition he has diabetes and hypertension and chronic renal failure and peripheral neuropathy and at scrota cardiovascular disease and peripheral fresco disease and dyslipidemia and coronary artery disease and paroxysmal atrial fibrillation and obstructive sleep apnea.. He has been found not to be a candidate for chemotherapy so a port will not be required at this time. Among his other medications he is on warfarin and aspirin therapy. He has a routine marijuana and alcohol user. Previous abdominal surgery includes a laparoscopic cholecystectomy that Dr. Patti Trevizo assisted him with on October 16, 2020. Notation is made that the liver was large and that there was a large amount of intra-abdominal adipose tissue. I had remotely assisted the patient on July 30, 2016 with a right lower ex tremity arteriogram and peroneal angioplasty. ROS General General: Yes weight change; No appetite, fatigue, colon cancer, breast cancer or weakness HEENT HEENT: Yes difficulty swallowing; No eye injury, eye surgery, swollen glands or hoarseness Endo Endocrine: Yes diabetes mellitus; No thyroid disease, thyroid cancer, Hair loss, heat intolerance or cold intolerance Skin Skin: No rash or changing moles Musc Musculoskeletal: Yes back problems and arthritis; No rheumatoid arthritis, gout or joint pain Cardio Cardiovascular: Yes heart disease, atrial fibrillation, high blood pressure and heart stent; No murmur, pacemaker, heart attack, palpitations, shortness of breat with exertion or chest pain Psych Psychiatric: Yes depression and anxiety; No hearing voices Resp Respiratory: Yes shortness of breath, Yes sleep apnea, No cough, No COPD, No asthma, No emphysema and No wheezing Gastro Gastrointestinal: No abdominal pain, No nausea or vomiting, No diarrhea, No constipation, No blood in stool, No acid reflux, No hemorrhoids, No ulcers, No gallbladder problem and No black,tarry stools Gael Hematologic: Yes blood thinners, No blood disorders, No bleeding, No anemia and No blood clots Neuro Neurologic: Yes numbness, Yes tingling and No weakness Exam Const General: cooperative, comfortable and no acute distress Other: Voice is somewhat hoarse and gravelly Eyes General: appearance normal, both eyes and all related structures Chest Other: Increased anterior posterior diameter Resp Other: Diminished respiratory excursion but clear Cardio Other: Irregular GI Other: Soft, overweight protuberant, no focal mass. Normal bowel sounds. Skin General: no rashes or lesions noted Neuro General: patient alert, patient awake and patient oriented x3 Extrem Other: 1+ nonpitting edema bilateral lower extremities Psych Appearance: grossly normal Assessment and Plan Assessment and Plan (1) Carcinoma of epiglottis: Status: Acute Plan With the patient's present I discussed the technique of placing a percutaneous endoscopic gastrostomy tube. They have already been seen by nutrition and have ongoing appointment scheduled to assist him with replacement. He is only previous abdominal surgery with laparoscopic cholecystectomy. He is aware that anticipate this this will be an outpatient procedure. He has had an opportunity to ask and have questions answered. IV antibiotic will be provided at the time of his procedure. I appreciate the ongoing option of assisting with his surgical care. Copy: Dr. Renzo Davidson and Dr. Jeffrey Lizama and Dr. Janey Brooks M.D., F.A.C.S I have examined the patient and the H&P has been reviewed. There are no clinical changes since date of exam Alexis Brooks M.D., F.A.C.S.
--- NOTE | 2024-02-25 06:46 | PRE.ANES_ITS ---
ASA Classification* ASA Classification ASA Classification: 4 Assessment & Plan Anesthesia* Anesthesia Assessment Anesthesia Assessment: Discussed sedation and/or anesthesia options, risks, benefits, and alternatives with patient/parents/legal guardian/POA. Questions invited. The patient/parents/legal guardian/POA seems to understand and agrees to proceed with anesthesia plan. Reviewed the physical assessment, medical history, allergy history and patient home medications list prior to surgery/procedure/anesthetic and documented any changes. Performed airway and anesthesia risk assessments. Anesthesia Type Anesthesia Type: MAC History Source History Obtained from:: Patient and Chart Pre-Assessment Diagnosis/Proposed Procedure Planned Operative Procedure(s): EGD WITH PEG TUBE Anesthesia History Anesthesia History - vp communications: Anesthesia History - vp communications Hx Hospitalization No 02/22/24 12:42 Any Problems With Anesthesia No 02/22/24 12:42 Cholinesterase deficiency No 02/22/24 12:42 You/Your Family Experience No 02/22/24 12:42 fever (hyperthermia) with Relationship Recent Exposure to Contagious No 02/25/24 06:34 Disease Does patient have nerve No 02/22/24 12:42 stimulator Patient instructed to have device shut off --Does patient have Pacemaker No 02/25/24 06:34 or ICD? When Was Last Pacemaker Check QUESTION #4 FULL TEXT: You/Your Family Experience fever (hyperthermia) with Anesthesia Any additional information?: No Last Oral Intake Last Oral intake: Last Oral Intake NPO since 00:00 02/25/24 06:34 Meds taken in AM with sips of water? Meds patient instructed to take am of surgery Any additional information?: No PONV PONV - vp communications: PONV - vp communications Female No 02/22/24 12:42 HX of Motion Sickness No 02/22/24 12:42 HX of N/V After Surgery No 02/22/24 12:42 Non-Smoker No 02/22/24 12:42 Duration of Surgery greater No 02/22/24 12:42 than 60 minutes Number of Risk Factors 1 02/22/24 12:42 PONV Score Low Risk 02/22/24 12:42 Any additional information?: Yes Female: No HX of Motion Sickness: No HX of N/V After Surgery: No Non-Smoker: Yes Duration of Surgery greater than 60 minutes: No Number of Risk Factors: 1 PONV Score: Low Risk Height & Weight Height & Weight: Anesthesia: Height & Weight Height 5 ft 7 in 02/25/24 06:34 Weight: 84.368 kg 02/25/24 06:34 Body Mass Index (BMI) 29.1 02/25/24 06:34 Respiratory Assessment Respiratory Assessment - vp communications: Respiratory Tract Infection Hx - vp communications Hx Respiratory Tract Infection No 02/22/24 12:42 Any additional information?: No STOP Sleep Apnea STOP Sleep Apnea - vp communications: STOP Sleep Apnea - vp communications Hx Hypertension Yes 02/22/24 12:42 Hx Sleep Apnea Yes 02/22/24 12:42 CPAP Yes: NONCOMPLIANT 02/22/24 12:42 BIPAP No 02/22/24 12:42 Do you snore loudly (louder than talking or can be heard Do you often feel tired/ fatigued/ sleepy during daytime? Has anyone observed you stop breathing during sleep? STOP Results Positive 02/22/24 12:42 QUESTION #5 FULL TEXT : Do you snore loudly (louder than talking or can be heard through closed doors)? Any additional information?: No Tobacco Use History Tobacco Use History - vp communications: Tobacco Use History - vp communications Tobacco Use Smoking Status Former smoker 02/22/24 12:42 Hx Tobacco Use Yes 02/22/24 12:42 Years Smoking Packs Smoked per Day Smoking Cessation Date was No - quit smoking greater 02/22/24 12:42 within the last 15 years than 15 years ago Hx Smoking Cessation Date 09/14/97 02/22/24 12:42 Hx Smoking Cessation No 02/22/24 12:42 Counseling Any additional information?: No Hematologic Medial History Hematologic Hx - vp communications: Hematologic Medical Hx - documentation nurse Hx of Blood Transfusion No 02/22/24 12:42 Hx of Transfusion in last 3 No 02/22/24 12:42 Months Date of Last Transfusion (if within last 3 months) Ever experience any problems No 02/22/24 12:42 with transfusion(s)? Specify any problems Hx of Preganancy in last 3 N/A 02/22/24 12:42 Months Nurse Filling Out Transfusion DSCHRIBER 02/22/24 12:42 & Questions: Date: 02/22/24 02/22/24 12:42 Time: 12:45 02/22/24 12:42 Patient unable to answer at this time (ie. confused, unrespo Any additional information?: No /Reproduction History /Reproductive History - vp communications: /Reproductive Hx- vp communications Hx Now No 02/22/24 12:42 Gestational Age (in weeks): EDC: Hx Hx Para Hx Section SAB No 02/22/24 12:42 Any additional information?: No Active Medications Active Medications: Current Medications Generic Name Dose Route Start Last Admin Trade Name Freq PRN Reason Stop Dose Admin Cefazolin Sodium 2 gm/ Sodium 110 mls @ 150 mls/hr 02/25/24 07:15 Chloride IV 02/25/24 07:58 PREOP ONE Lactated Ringer's 1,000 mls @ 15 mls/hr 02/25/24 06:30 02/25/24 06:40 IV 15 mls/hr .Q48H JOSE ALFREDO Administration Anesthesia Focused Assessment* Temperature: 97.8 F Pulse Rate: 81 Blood Pressure: 95/39 Respiratory Rate: 16 Pulse Ox: 98 Airway Assessment Mouth opens (cm): >3 Mallampati Score: IV (epiglottic CA) Teeth Condition: Intact Neck Range of motion (ROM): Limited ROM Focused Labs Anesthesia Preop lab: CBC WBC 7.6 K/mm3 (4.4-11.0) 01/11/24 08:35 RBC 4.23 M/mm3 (4.6-6.2) L 01/11/24 08:35 Hgb 12.5 g/dL (13.0-16.5) L 01/11/24 08:35 Hct 39.1 % (40-54) L 01/11/24 08:35 Plt Count 191 K/mm3 (150-450) 01/11/24 08:35 CHEMISTRY Potassium 4.2 mmol/L (3.5-5.1) 01/11/24 08:35 Sodium 140 mmol/L (136-145) 01/11/24 08:35 Magnesium 1.5 mg/dL (1.6-2.6) L 10/17/20 05:40 Phosphorus 2.9 mg/dL (2.5-4.9) 11/16/23 12:43 BUN 28 mg/dL (7-18) H 01/11/24 08:35 Creatinine 2.44 mg/dL (0.70-1.30) H 01/11/24 08:35 Glucose 149 mg/dL (74-106) H 01/11/24 08:35 TSH 1.04 uIU/mL (0.358-3.74) 10/06/23 06:21 COAG PT 14.9 SECONDS (11.7-14.9) 02/25/24 06:31 Review of Systems (Anesthesia) ROS Narrative System reviewed and no additional complaints, except as documented. [facility] Medical History CPAP (continuous positive airway pressure) dependence Cancer Macular degeneration of right eye Carcinoma of epiglottis Smoker Wears hearing aid Wears dentures Alcohol use Ambulates with cane Neuropathy Back pain Blackout Difficulty swallowing Former smoker Shortness of breath on exertion Leg cramps History of edema Stroke/cerebrovascular accident History of atrial fibrillation History of echocardiogram History of stress test Cardiology follow-up encounter Chronic diastolic (congestive) heart failure Hypertension Acute on chronic diastolic (congestive) heart failure History of non-ST elevation myocardial infarction (NSTEMI) (11/02/19) Upper GI bleed (11/02/19) Paroxysmal atrial fibrillation History of CVA (cerebrovascular accident) (10/2015) Chronic renal failure Claudication Peripheral vascular occlusive disease Hyperlipidemia Atherosclerosis of coronary artery of [place] heart without angina pectoris Stenosis of left subclavian artery Anxiety and depression CKD (chronic kidney disease) DDD (degenerative disc disease) Marijuana use Narcolepsy Diabetic neuropathy Osteoarthritis Type 2 diabetes mellitus Lacunar infarct, acute Home Medications ?Medication ?Instructions ?Recorded ?Last Taken ?Type pregabalin 150 mg capsule 150 mg PO BID pain 11/06/15 10/12/20 22:00 History tamsulosin 0.4 mg capsule 0.4 mg PO QHS prostate 90 days #90 12/24/18 10/13/20 10:00 History caps cholecalciferol (vitamin D3) 50 2,000 unit PO DAILY vitamin 06/24/19 Unknown History mcg (2,000 unit) tablet methocarbamol 750 mg tablet 750 mg PO Q8H PRN spasm 11/08/19 Unknown History aspirin 81 mg chewable tablet 81 mg PO DAILY heart health 03/22/20 02/18/24 History atorvastatin 40 mg tablet 40 mg PO QHS 01/06/22 Unknown History glipizide 5 mg tablet 7.5 mg PO DAILY diabetes 90 days 01/06/22 Unknown History metoprolol succinate 25 mg 25 mg PO QHS 01/06/22 02/23/24 History tablet,extended release 24 hr hydrocodone-acetaminophen 5-325mg 1 tab PO QHS PRN pain 07/09/22 Unknown History 5mg-325mg dapagliflozin propanediol 10 mg 10 mg PO DAILY 10/13/22 Unknown History tablet (Farxiga) nitroglycerin 0.4 mg sublingual 0.4 mg sublingual Q5M PRN chest 10/13/22 Unknown Rx tablet pain #25 tabs semaglutide 3 mg tablet (Rybelsus) 14 mg PO DAILY 02/03/23 02/23/24 History glipizide 5 mg tablet 5 mg PO QHS 02/22/24 Unknown History warfarin 1 mg tablet 0.5 mg PO SUSA 02/22/24 02/18/24 History warfarin 1 mg tablet 1 mg PO MOTUWETHFR 02/22/24 02/18/24 History Allergy/AdvReac Type Severity Reaction Status Date / Time Iodinated Contrast Media AdvReac Mild Vomiting Verified 02/25/24 06:32 (iodine contrast) metformin AdvReac Nausea/Vom/ Verified 02/25/24 06:32 Diarrhea Family History Brother Cancer lung Surgical History History of laryngoscopy History of cataract surgery History of colonoscopy History of cholecystectomy (~10/2020) History of left heart catheterization (11/13/04) History of angioplasty of peripheral vessel (09/2018) Social History Smoking Status: Former smoker quit date: 09/14/97 Tobacco: How many years used: 45 how long ago did patient quit smokin years ago alcohol intake: current alcohol intake frequency: 0-2 drinks per day Alcohol type: hard liquor substance use type: marijuana caffeine: Yes Type: carbonated beverages Number of servings: 1
[2024-02-25 06:50] LABS: International Normalized Ratio 1.2; Prothrombin Time (Protime)PT. 14.9 SECONDS (11.7-14.9)
[2024-02-25] MEDS: Cefazolin 2 GM in 0.9% Normal Saline (100mL Bag) 100 ML IV (06:50)
[2024-02-25 07:00] LABS: Bedside Glucose 153 mg/dL (74-106)
--- NOTE | 2024-02-25 07:15 | IMM_PTH ---
PATIENT: TYRELL REYES LOC: EN U#:[id number] AGE/SX: 73/M ROOM: RE02/25/[address]: Dr. Alexis Brooks MD : 1950 BED: DIS: 02/25/2024 SPEC #: [id number] RECD: 02/25/24 11:59 STATUS: CAITLIN REQ #: [id number] MICHELLE: 02/25/24 07:[address]: Alexis Brooks DEPT: IMMUNOHISTOCHEMISTRY RECD BY: Tucker Bianchi ENTERED: 02/25/24 12:00 SP TYPE: IMMUNO OTHR DR: Dr. Renzo Davidson DO Tissues: Gastric mucous membrane Procedures: H Pylori (initial) PHYSICIAN & INSTITUTION [place] [id number] SPECIMEN INFORMATION: Tissue Source: Antral biopsy Clinical Info: Epiglottis cancer Specimen Number: [id number] CPT code: 77630 METHODOLOGY: Deparaffinized sections of prefer/formalin-fixed tissue or PAP/DQ stained slides are incubated with monoclonal/polyclonal antibodies/oligonucleotide probes. Localization is made via biotin free immunoperoxidase method. Appropriate controls are performed and reacted as expected. Results on target cell population are indicated in the following table: RESULTS: ANTIBODY / CLONE RESULT H Pylori (polyclonal) negative These tests were developed and their performance characteristics determined by [facility]. They may not have been cleared or approved by the U.[place]. Food and Drug Administration. The FDA has determined that such clearance or approval is not necessary. The above immunohistochemical/dualISH markers are ordered and reviewed by the Pathologist. INTERPRETATION: Antral biopsy: Negative for Helicobacter pylori organisms. MIRIAM/ 02/26/2024
--- NOTE | 2024-02-25 07:15 | EGD_PTH ---
PATIENT: TYRELL REYES LOC: EN U#:[id number] AGE/SX: 73/M ROOM: RE02/25/[address]: Dr. Alexis Brooks MD : 1950 BED: DIS: 02/25/2024 SPEC #: [id number] RECD: 02/25/24 09:59 STATUS: CAITLIN RITA #: [id number] MICHELLE: 02/25/24 07:[address]: Alexis Brooks DEPT: SURGICAL PATHOLOGY RECD BY: Eugenie Dodd ENTERED: 02/25/24 10:42 SP TYPE: EGD BIOPSY OTHR DR: Dr. Renzo Davidson, DO Tissues: Gastric mucous membrane Procedures: Surgery Specimen Level IV HEADER OPERATION: EGD with PEG tube and biopsy PRE-OP DIAGNOSIS: Epiglottis cancer TISSUE SUBMITTED: Antral biopsy MICROSCOPIC DIAGNOSIS Gastric antrum, biopsy: Mild chronic inflammation. AM/mr 02/26/2024 COMMENT The results of immunohistochemistry for Helicobacter pylori will be reported separately ([id number]). MICROSCOPIC DESCRIPTION Slides are reviewed. GROSS DESCRIPTION Received in fixative is one container labeled with the patient's name and designated Antral biopsy. The specimen consists of one irregular fragment of light otero soft tissue that measures 0.4 x 0.3 x 0.1 cm. The specimen is totally submitted in one cassette. MIRIAM/ 02/25/2024 TC:3 CPT:73295
--- NOTE | 2024-02-25 07:31 | PCM.POST.ANE ---
Anesthesia: Postop Eval I Current Vital Signs Temperature: 98.3 F Pulse Rate: 81 Blood Pressure: 77/62 Respiratory Rate: 18 Pulse Ox: 96 Oxygen Delivery Method: Room Air Assessment Airway patent: Yes Spontaneous unlabored respirations: Yes Mental status: Awake and Calm nausea: No Vomiting: No Anesthesia Complication: No Fluid Hydration Crystalloid volume administer (ml): 800 Total IV fluid infused: 800 Progress Note Anesthesia document: Postop Eval 1 completed: Yes
--- NOTE | 2024-02-25 07:32 | OP.EGD_ITS ---
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 Procedure: Pre-Anesthesia Assessment: - Prior to the procedure, a History and Physical was performed, and patient medications and allergies were reviewed. The patient's tolerance of previous anesthesia was also reviewed. The risks and benefits of the procedure and the sedation options and risks were discussed with the patient. All questions were answered, and informed consent was obtained. Prior Anticoagulants: The patient has taken Coumadin (warfarin), last dose was 5 days prior to procedure. ASA Grade Assessment: III - A patient with severe systemic disease. After reviewing the risks and benefits, the patient was deemed in satisfactory condition to undergo the procedure. After obtaining informed consent, the endoscope was passed under direct vision. Throughout the procedure, the patient's blood pressure, pulse, and oxygen saturations were monitored continuously. The Endoscope was introduced through the mouth, and advanced to the second part of duodenum. The upper GI endoscopy was accomplished without difficulty. The patient tolerated the procedure well. Scope In: 6:56:44 AM Scope Out: 7:18:49 AM Total Procedure Duration Time 0 hours 22 minutes 5 seconds Findings: The examined esophagus was normal. Hematin (altered blood/huewrl-mbfopb-byib material) was found in the stomach. Biopsies were taken with a cold forceps for histology. The examined duodenum was normal. Placement of an endoscopically removable PEG with no T-fasteners was successfully completed. The external bumper was at the 2.5 cm marking on the tube. Estimated blood loss was minimal. Impression: - Normal esophagus. - Hematin (altered blood/xgnxpr-peoajx-djcr material) in the stomach. Biopsied. - Normal examined duodenum. - An endoscopically removable PEG placement was successfully completed. Recommendation: - Please follow the post-PEG recommendations including: Nutrition consult for formula and volume and change dressing once per day. - Continue present medications. 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 All rights reserved. The codes documented in this report are preliminary and upon certified rehabilitation counselor review may be revised to meet current compliance requirements. Alexis Brooks MD 02/25/2024 7:31:29 AM This report has been signed electronically. Number of Addenda: 0 Note Initiated On: 02/25/2024 6:40 AM
--- NOTE | 2024-02-25 07:32 | OP.CCLET_ITS ---
02/25/2024 Renzo Davidson Do Re : Upper GI endoscopy procedure for Fidel Arita Dear Stuart This procedure was performed on February. My impressions and recommendations are as follows: Impressions : - Normal esophagus. - Hematin (altered blood/yiynyt-mcqrxo-knlz material) in the stomach. Biopsied. - Normal examined duodenum. - An endoscopically removable PEG placement was successfully completed. Recommendations : - Please follow the post-PEG recommendations including: Nutrition consult for formula and volume and change dressing once per day. - Continue present medications. My findings are described in the full procedure note, which is enclosed. If I can be of further assistance, please feel free to contact me at Doctor phone number(s): Work: . Sincerely, Alexis Brooks MD 02/25/2024 7:31:29 AM This report has been signed electronically.
--- NOTE | 2024-02-25 07:50 | PCM.POSTANE2 ---
Anesthesia Postop Eval I Sum Postop Eval Completion status Anesthesia document: Postop Eval 1 completed: Yes Anesthesia Postop Eval I Summary Anesthesia Postop Eval I Summary: Anesthesia Postop Eval I: Assessment Summary Airway patent Yes 02/25/24 07:37 [email or web address] Spontaneous unlabored Yes 02/25/24 07:37 [email or web address] respirations Mental status Awake,Calm 02/25/24 07:37 [email or web address] nausea No 02/25/24 07:37 [email or web address] Vomiting No 02/25/24 07:37 [email or web address] Anesthesia Postop Eval I: Fluid Summary Crystalloid volume administer 800 02/25/24 07:37 [email or web address] (ml) Colloids volume administered ( ml) Blood Product volume administered (ml) Total IV fluid infused 800 02/25/24 07:47 [email or web address] Anesthesia Postop Eval I: Summary Notes Anesthesia Complication No 02/25/24 07:37 [email or web address] Anesthesia Complication Comment: Post-operative progress note Anesthesia: Postop Eval II Evaluation Mental status: Awake Pain Level: 0 nausea: No Vomiting: No Complications Anesthesia Complication: No
== END 2024-02-25 08:37 | disposition home or self-care (01) ==
LOC: EN 05:57 → AC 05:58
PROVIDERS: Anesthesiology; PCP Student in an Organized Health Care Education/Training Program; Referring Provider Student in an Organized Health Care Education/Training Program; Visit Provider Surgery
PROC: 0DJ08ZZ Inspection of Upper Intestinal Tract, Via Natural or Artificial Opening Endoscopic (ICD-10-PCS; CPT 43235; principal; 2024-02-25 07:10)
DX: Z43.1 Encounter for attention to gastrostomy (principal); Z93.1 Gastrostomy status; C32.1 Malignant neoplasm of supraglottis; I13.0 Hypertensive heart and chronic kidney disease with heart failure and stage 1 through stage 4 chronic kidney disease, or unspecified chronic kidney disease; I50.32 Chronic diastolic (congestive) heart failure; I48.0 Paroxysmal atrial fibrillation; E11.51 Type 2 diabetes mellitus with diabetic peripheral angiopathy without gangrene; E11.42 Type 2 diabetes mellitus with diabetic polyneuropathy; E11.22 Type 2 diabetes mellitus with diabetic chronic kidney disease; N18.30 Chronic kidney disease, stage 3 unspecified; F17.210 Nicotine dependence, cigarettes, uncomplicated; I25.10 Atherosclerotic heart disease of native coronary artery without angina pectoris; G47.33 Obstructive sleep apnea (adult) (pediatric); I25.2 Old myocardial infarction; R63.39 Other feeding difficulties; Z79.82 Long term (current) use of aspirin; Z79.899 Other long term (current) drug therapy; Z79.01 Long term (current) use of anticoagulants; Z79.84 Long term (current) use of oral hypoglycemic drugs; Z86.73 Personal history of transient ischemic attack (TIA), and cerebral infarction without residual deficits
CPT/HCPCS: 43246; 43239; 36416; 82962; 85610; 88305; 88342; J7120; J2405

== ENCOUNTER 2024-02-27 12:16 | Emergency (ER) | payer MEDICARE, OTHER, SELFPAY ==
[2024-02-27 12:16] VITALS: BP 128/75; PULSE 92; RESP 19; TEMP 36.6; O2SAT 96; BMI 28.0
--- NOTE | 2024-02-27 12:55 | EDS_ITS ---
HPI HPI - GI History of Present Illness Chief Complaint: Nausea/Vomiting Informant: patient and spouse/S.O. Nausea/Vomiting/Emesis GI Symptom: Positive for Nausea and Vomiting Onset: Days Quality: Negative for Blood streaks, Coffee ground or Hematemesis Severity: Mild Diarrhea/Melena/Hematochezia GI Symptom: Positive for Diarrhea Onset: Yesterday Stool Quality: Positive for Loose Severity: Mild Associated Symptoms Associated Symptoms: Negative for Dysuria, Frequency, Hematuria or Urgency Narrative Narrative: 73-year-old male history of throat cancer with radiation therapy on Thursday. Had a PEG tube placed on . On Thursday prior to the PEG tube being placed has been feeling well he had some nausea. Has had nausea vomiting last couple days. His extensive past medical history of A-fib, macular degeneration, prior stroke, renal insufficiency stage III, diabetes and is on Coumadin. He did have an episode of diarrhea that has since resolved. Denies any dysuria. No abdominal pain or distention. Prior similar symptoms: Yes Recent Illness/Hospitalization: No PFSH PFSH Medical History CPAP (continuous positive airway pressure) dependence Cancer Macular degeneration of right eye Carcinoma of epiglottis Smoker Wears hearing aid Wears dentures Alcohol use Ambulates with cane Neuropathy Back pain Blackout Difficulty swallowing Former smoker Shortness of breath on exertion Leg cramps History of edema Stroke/cerebrovascular accident History of atrial fibrillation History of echocardiogram History of stress test Cardiology follow-up encounter Chronic diastolic (congestive) heart failure Hypertension Acute on chronic diastolic (congestive) heart failure History of non-ST elevation myocardial infarction (NSTEMI) (11/02/19) Upper GI bleed (11/02/19) Paroxysmal atrial fibrillation History of CVA (cerebrovascular accident) (10/2015) Chronic renal failure Claudication Peripheral vascular occlusive disease Hyperlipidemia Atherosclerosis of coronary artery of [place] heart without angina pectoris Stenosis of left subclavian artery Anxiety and depression CKD (chronic kidney disease) DDD (degenerative disc disease) Marijuana use Narcolepsy Diabetic neuropathy Osteoarthritis Type 2 diabetes mellitus Lacunar infarct, acute Home Medications ?Medication ?Instructions ?Recorded ?Last Taken ?Type pregabalin 150 mg capsule 150 mg PO BID pain 11/06/15 10/12/20 22:00 History tamsulosin 0.4 mg capsule 0.4 mg PO QHS prostate 90 days #90 12/24/18 10/13/20 10:00 History caps cholecalciferol (vitamin D3) 50 2,000 unit PO DAILY vitamin 06/24/19 Unknown History mcg (2,000 unit) tablet methocarbamol 750 mg tablet 750 mg PO Q8H PRN spasm 11/08/19 Unknown History aspirin 81 mg chewable tablet 81 mg PO DAILY heart health 03/22/20 02/18/24 History atorvastatin 40 mg tablet 40 mg PO QHS 01/06/22 Unknown History glipizide 5 mg tablet 7.5 mg PO DAILY diabetes 90 days 01/06/22 Unknown History metoprolol succinate 25 mg 25 mg PO QHS 01/06/22 02/23/24 History tablet,extended release 24 hr dapagliflozin propanediol 10 mg 10 mg PO DAILY 10/13/22 Unknown History tablet (Farxiga) nitroglycerin 0.4 mg sublingual 0.4 mg sublingual Q5M PRN chest 10/13/22 Unknown Rx tablet pain #25 tabs semaglutide 3 mg tablet (Rybelsus) 14 mg PO DAILY 02/03/23 02/23/24 History glipizide 5 mg tablet 5 mg PO QHS 02/22/24 Unknown History warfarin 1 mg tablet 0.5 mg PO SUSA 02/22/24 02/18/24 History warfarin 1 mg tablet 1 mg PO MOTUWETHFR 02/22/24 02/18/24 History ondansetron 4 mg disintegrating 4 mg PO Q8H PRN PRN Nausea #10 tabs 02/27/24 Unknown Rx tablet semaglutide 14 mg tablet (Rybelsus) 14 mg PO 02/27/24 Unknown History Allergy/AdvReac Type Severity Reaction Status Date / Time Iodinated Contrast Media AdvReac Mild Vomiting Verified 02/25/24 06:32 (iodine contrast) metformin AdvReac Nausea/Vom/ Verified 02/25/24 06:32 Diarrhea Family History Brother Cancer lung Surgical History History of laryngoscopy History of cataract surgery History of colonoscopy History of cholecystectomy (~10/2020) History of left heart catheterization (11/13/04) History of angioplasty of peripheral vessel (09/2018) Social History Smoking Status: Former smoker quit date: 09/14/97 Tobacco: How many years used: 45 how long ago did patient quit smokin years ago alcohol intake: current alcohol intake frequency: 0-2 drinks per day Alcohol type: hard liquor substance use type: marijuana caffeine: Yes Type: carbonated beverages Number of servings: 1 ROS ROS ED ROS Narrative Nausea and vomiting. Diarrhea resolved. Constitutional Constitutional ED: Denies chills or fever(s) Cardiovascular Cardiovascular: Denies chest pain Respiratory/Chest Respiratory/Chest: Denies cough or dyspnea Gastrointestinal Gastrointestinal: Reports diarrhea, nausea and vomiting; Denies abdominal pain, constipation or melena Genitourinary Genitourinary ED: Denies dysuria or hematuria Musculoskeletal Musculoskeletal: Denies arthralgias Integumentary Denies abscess Neurologic Neurologic: Denies headache(s) Psychiatric Psychiatric: Denies anxiety Endocrine Endocrinology: Denies polydipsia Hematologic/Lymphatic Hematologic/Lymphatic: Denies easy bleeding Allergic/Immunologic Allergic/Immunologic ED: Denies mouth swelling, tongue swelling or urticaria EXAM Physical Exam Narrative Exam Narrative: 73-year-old male vital signs are stable and afebrile. He does not look septic or toxic. He is no acute distress. H EENT exam pupils round react light. No facial droop. No trauma. Dry mucous membranes. Neck nontender. Lungs clear to auscultation. Heart regular rhythm rate about 90 no murmur. Chest wall and ribs nontender. Abdomen soft nontender. Nondistended. Normal bowel sounds no peritoneal signs. No localizing tenderness. He has a feeding tube in place. There is no hernia or mass. No signs of obstruction. Soft with normal bowel sounds. Very benign abdominal exam. Moving all 4 extremities. Nontender no edema. Neurologically is awake and alert no focal motor deficits. Const Vital Signs: 02/27/24 12:16 Temperature 97.8 F Temperature Source Temporal Pulse Rate 92 Respiratory Rate 19 H Blood Pressure 128/75 H Blood Pressure Mean 92 Pulse Ox 96 Oxygen Delivery Method Room Air Positive well nourished and well developed; Negative for obese, cachectic or contractures General Appearance ED: well developed and NAD; Negative for cachectic, contractures or pallor Nutritional Appearance: Negative for cachectic or obese HEENT Reports dry mucous membranes; Denies moist mucous membranes normocephalic and atraumatic; Negative for trauma or tenderness Mouth ED: Yes dry mucous membranes Mouth: dry mucous membranes Eyes PERRL and EOMs intact bilaterally General Eye ED: Negative for pale conjunctiva or scleral icterus Neck no lymphadenopathy, supple and no JVD General: Negative for tenderness Carotids: Negative for other Lymph Lymphatic: Negative for other Resp normal respiratory effort and clear to auscultation bilaterally Effort and Inspection: Negative for respiratory distress Auscultation: Negative for rales, rhonchi or wheezes Cardio regular rate, regular rhythm, S1 normal heart sound, S2 normal heart sound and no murmurs Rate: Negative for bradycardia or tachycardic Rhythm: Negative for abnormal rhythm GI non-tender, non-distended and no masses GI Narrative: Feeding tube in place. Nontender abdomen. No distention. Inspection: Negative for abdominal distention Auscultation: normoactive bowel sounds Palpation: soft; Negative for tender, guarding, rigid, mass, pulsatile mass or rebound tenderness present Back/Spine no CVA tenderness General Back: Negative for CVA tenderness Cervical Spine: Negative for cervical spine tenderness Thoracic Spine / Upper Back: Negative for thoracic spinal tenderness Lumbar Spine / Lower Back: Negative for lumbar spinal tenderness Coccyx: Negative for other Extremity full ROM General Extremety ED: Negative for edema, tenderness or other findings General Extremity: Negative for edema or other findings Neuro CN's II-XII intact bilaterally and moves all extremities Sensorium / Orientation: alert, oriented to person, oriented to place and oriented to time; Negative for orientation impaired, confused, lethargic or stuporous Motor Exam: strength 5/5 throughout Psych mental status grossly normal and thought process normal Appearance: Negative for other Attitude: No agitated Mood & Affect: Negative for depressed, anxious or tearful Skin no wounds General Skin Exam: Negative for jaundice or pallor Lesions: no lesions Rashes: no rashes Trauma: Negative for abrasion Nails: Negative for discolored MDM MDM MDM Narrative Medical decision making narrative: 73-year-old male with nausea and vomiting. Had symptoms prior to having his recent PEG tube placed. Will be treated with IV fluids. For dehydration. Zofran for nausea. Screening labs to be obtained. I do not think he needs any imaging his abdomen is benign, nontender without peritoneal signs nor any distention. Repeat exam patient is doing well at 2:05 PM. Patient doing well. He did eat while he was here. He is able to hold down fluids and solids. They are comfortable with him being discharged home. I did speak to his general surgeon Dr. Alexis Brooks called and we discussed the patient's case. His abdomen is completely benign and has been benign normal time. He is having no abdominal pain. He is not distended. He is not tender. He will be discharged home with prescription for Zofran. They can start using his PEG tube. Dr. Brooks normally waits about 24 hours the patient is now at 48 hours. Will start with small amounts of liquid to the feeding tube. The has training on this on Thursday. History & Record Review Discussion w/independent historian: Patient and Family Additional record(s) reviewed:: Prior inpatient record, Prior outpatient record, Prior ED visit and Prior labs Lab Data Attestation: I reviewed the patient's lab results. Lab results narrative: CBC unremarkable. White count of 5. H&H 13 and 40. Platelets 166. Electrolytes show sodium 135. Gap 9. BUN and creatinine 26 and 1.69. He has a history of renal insufficiency this is better than his baseline. Glucose 129. Labs: Laboratory Results - last 24 hr 02/27/24 13:12 WBC 5.9 RBC 4.51 L Hgb 13.3 Hct 40.8 MCV 90.5 MCH 29.5 MCHC 32.6 RDW Std Deviation 46.2 H RDW Coeff of Estela 13.8 Plt Count 166 MPV 9.4 Immature Gran % (Auto) 0.200 Neut % (Auto) 74.8 H Lymph % (Auto) 15.5 L [place] % (Auto) 9.0 Eos % (Auto) 0.3 Baso % (Auto) 0.2 Absolute Neuts (auto) 4.4 Absolute Lymphs (auto) 0.92 Nucleated RBC % 0 Sodium 135 L Potassium 4.2 Chloride 102 Carbon Dioxide 24.0 Anion Gap 9 BUN 26 H Creatinine 1.69 H Estim Creat Clear Calc 38.52 Est GFR (MDRD) Af Amer 51 L Est GFR (MDRD) Non-Af 42 L BUN/Creatinine Ratio 15.4 Glucose 129 H Calcium 9.0 Discharge Plan Triage Chief Complaint: Nausea/Vomiting ED Provider: Nick Eddy Dx/Rx/DC Orders Clinical Impression: Nausea with vomiting, History of throat cancer, Hx of radiation therapy, History of atrial fibrillation, History of diabetes mellitus, History of renal insufficiency Instructions: ED Vomiting (Adult) Prescriptions: New ondansetron 4 mg tablet,disintegrating 4 mg PO Q8H PRN PRN (Reason: Nausea) Qty: 10 0RF No Action tamsulosin 0.4 mg capsule 0.4 mg PO QHS 90 Days Qty: 90 glipizide 5 mg tablet 7.5 mg PO DAILY 90 Days Rx Instructions: take 7.5 mg that morning and 5 mg in the evening. cholecalciferol (vitamin D3) 2,000 unit tablet 2,000 unit PO DAILY methocarbamol 750 mg tablet 750 mg PO Q8H PRN (Reason: spasm) Rybelsus 3 mg tablet 14 mg PO DAILY atorvastatin 40 mg tablet 40 mg PO QHS metoprolol succinate 25 mg tablet extended release 24 hr 25 mg PO QHS Farxiga 10 mg tablet 10 mg PO DAILY nitroglycerin 0.4 mg tablet, sublingual 0.4 mg sublingual Q5M PRN (Reason: chest pain) Qty: 25 3RF Rx Instructions: do not exceed 3 doses per episode pregabalin 150 MG capsule 150 mg PO BID Patient Comments: Pain aspirin 81 MG tablet,chewable 81 mg PO DAILY glipizide 5 mg tablet 5 mg PO QHS warfarin 1 mg tablet 1 mg PO MOTUWETHFR warfarin 1 mg tablet 0.5 mg PO SUSA Protocol: Dose Management Condition: Thursday Dose/Route: 0.5 mg Instruction: 0.5 x 1 mg tablets Condition: Thursday Dose/Route: 1 mg Instruction: 1 x 1 mg tablet Condition: Thursday Dose/Route: 1 mg Instruction: 1 x 1 mg tablet Condition: Thursday Dose/Route: 1 mg Instruction: 1 x 1 mg tablet Condition: Dose/Route: 1 mg Instruction: 1 x 1 mg tablet Condition: Thursday Dose/Route: 1 mg Instruction: 1 x 1 mg tablet Condition: Thursday Dose/Route: 0.5 mg Instruction: 0.5 x 1 mg tablets Protocol Text: Adjustment Start Date: Thursday02/22/24 INR Value: 1.3 INR Date: 02/22/24 Recheck Date: 03/02/24 Patient Comments: TO HOLD 5 DAYS PRIOR TO SURGERY Rx Instructions: 0.5 mg orally daily; please give 90 pills as dose changes often.; Rybelsus 14 mg tablet 14 mg PO Primary Care Provider: Renzo Davidson Referrals: Renzo Davidson DO [Primary Care Provider] - Alexis Brooks MD [Med Staff - Active Staff] - As Needed Activity Restrictions/Additional Instructions: Zofran as needed for nausea. You may swallow or let dissolve under your tongue. I spoke with Dr. Brooks he can start using the feeding tube. Small amounts of liquid like 100 to 200 cc. If you do not feel comfortable using it to you get trained you can wait till Thursday and follow-up with the training on Thursday. Plenty of fluids and rest. Increase diet slowly as tolerated. With the Print Language: Pashto Disposition Disposition: Home, Self Care
[2024-02-27] MEDS: 0.9% Normal Saline (1000mL) 1,000 ML 999 ML IV (13:11)
[2024-02-27] MEDS: Ondansetron 4 MG/2 ML Vial IV (13:11)
[2024-02-27 13:20] LABS: Absolute Lymphocyte Count 0.92 X10^3/uL (0.83-4.51); Absolute Neutrophil Count 4.4 X10^3/uL (2.0-7.7); Basophil# 0.01 X10^3/uL; Basophil% 0.2 % (0-1); Eosinophil# 0.02 X10^3/uL; Eosinophils% 0.3 % (0-5); Hematocrit 40.8 % (40-54); Hemoglobin 13.3 g/dL (13.0-16.5); Lymphocyte # 0.92 X10^3/ul (0.83-4.51); Lymphocyte % 15.5 % (19-41); Mean Corp Hgb Conc 32.6 g/dL (32-36); Mean Corpuscular Hgb 29.5 pg (27.0-32.0); Mean Corpuscular Volume 90.5 fL (80-94); Mean Platelet Vol. 9.4 fl (6.2-12.0); Monocyte# 0.53 X10^3/uL; NRBC Flagged by Analyzer 0 % (0-5); Neutrophil # 4.43 X10^3/uL (2.7-7.7); Neutrophil % 74.8 % (47-70); Platelet Count 166 K/mm3 (150-450); RBC Distribution Width CV 13.8 % (11.6-14.6); RBC Distribution Width SD 46.2 fl (35.1-43.9); Red Blood Count 4.51 M/mm3 (4.6-6.2); White Blood Count 5.9 K/mm3 (4.4-11.0)
[2024-02-27 13:33] LABS: Anion Gap 9 (5-15); BUN 26 mg/dL (7-18); BUN/Creat Ratio 15.4 RATIO (10-20); Chloride 102 mmol/L (98-107); Creatinine, Serum 1.69 mg/dL (0.70-1.30); EST Glomerular Filtration Rate 42 mL/min (>60); Est Glom Filt Rate - Afr Amer 51 mL/min (>60); Estimated Creatinine Clearance 38.52 ml/min; Glucose 129 mg/dL (74-106); Potassium 4.2 mmol/L (3.5-5.1); Sodium Level 135 mmol/L (136-145)
[2024-02-27 14:17] VITALS: PULSE 88; RESP 16; TEMP 36.6; O2SAT 100
== END 2024-02-27 14:31 | disposition home or self-care (01) ==
PROVIDERS: Emergency Provider Emergency Medicine; PCP Student in an Organized Health Care Education/Training Program; Visit Provider Emergency Medicine
DX: R11.2 Nausea with vomiting, unspecified (principal); Z93.1 Gastrostomy status; I13.0 Hypertensive heart and chronic kidney disease with heart failure and stage 1 through stage 4 chronic kidney disease, or unspecified chronic kidney disease; I50.33 Acute on chronic diastolic (congestive) heart failure; I48.0 Paroxysmal atrial fibrillation; E11.22 Type 2 diabetes mellitus with diabetic chronic kidney disease; E86.0 Dehydration; Z87.891 Personal history of nicotine dependence; Z85.89 Personal history of malignant neoplasm of other organs and systems; Z92.3 Personal history of irradiation; Z86.73 Personal history of transient ischemic attack (TIA), and cerebral infarction without residual deficits; Z79.01 Long term (current) use of anticoagulants; I25.10 Atherosclerotic heart disease of native coronary artery without angina pectoris; E78.5 Hyperlipidemia, unspecified; N18.9 Chronic kidney disease, unspecified; I25.2 Old myocardial infarction; Z79.899 Other long term (current) drug therapy; Z79.82 Long term (current) use of aspirin; Z79.84 Long term (current) use of oral hypoglycemic drugs; Z90.49 Acquired absence of other specified parts of digestive tract
CPT/HCPCS: 80048; 85025; 96361; 96374; 99283; J7030; A4216; J2405

== ENCOUNTER → 2024-03-08 | Outpatient (CLI) | payer MEDICARE, OTHER, SELFPAY ==
--- NOTE | 2024-03-08 12:50 | CDU_ITS ---
Reason For Study: Syncopal episode Rt. Velocities/BP Lt. Velocities/BP Prox CCA 102.3/18.8 cm/sec. Prox CCA 77.9/14.2 cm/sec. Mid CCA 119.5/24.9 cm/sec. Mid CCA 73.5/17.7 cm/sec. Dist CCA 75.3/15.1 cm/sec. Dist CCA 77/19.5 cm/sec. Prox ICA 139.4/48 cm/sec. Prox ICA 108.3/33.4 cm/sec. Mid ICA 126.6/42.6 cm/sec. Mid ICA 95.5/33.4 cm/sec. Dist ICA 126.6/40.7 cm/sec. Dist ICA 86.4/29.8 cm/sec. Rt. ICA/CCA = 1.67. Lt. ICA/CCA = 1.47. Prox ECA 152.1/18.8 cm/sec. Prox ECA 208.1/24.1 cm/sec. Rt. Vert. 43/10.7 cm/sec. Lt. Vert. 84.6/24.3 cm/sec. Right Extracranial There is heterogeneous, irregular atherosclerotic plaque noted in the right common carotid artery. There is heterogeneous, irregular atherosclerotic plaque noted in the right internal carotid artery. There is heterogeneous, irregular atherosclerotic plaque noted in the right external carotid artery. Antegrade flow is noted in the right vertebral artery. Left Extracranial There is heterogeneous, irregular atherosclerotic plaque noted in the left common carotid artery. There is heterogeneous, irregular atherosclerotic plaque noted in the left internal carotid artery. There is intimal thickening but no significant atherosclerotic plaque noted in the left external carotid artery. Antegrade flow is noted in the left vertebral artery. Procedure Carotid Duplex 00955. This is a Carotid Duplex examination using B-mode, color flow and specral Doppler. Exam performed in department. VL/Carotid Duplex Ultrasound Interpretation Summary Irregular calcific plaque with shadowing at the proximal right internal carotid artery with less than 50% stenosis Less than 50% stenosis right external carotid artery Irregular plaque at the proximal left internal carotid artery with less than 50 % stenosis Greater than 50% stenosis left external carotid artery Patent and antegrade vertebral arteries bilaterally Ordering Physician: Jolynn Davenport Referring Physician: Renzo Davidson Performed By: Yolie Jonas RVT
== END | disposition home or self-care (01) ==
LOC: CVS 12:46
PROVIDERS: PCP Student in an Organized Health Care Education/Training Program; Referring Provider Nurse Practitioner Gerontology; Visit Provider Nurse Practitioner Gerontology
DX: R55 Syncope and collapse (principal)
CPT/HCPCS: 93880

== ENCOUNTER 2024-05-12 06:27 | Outpatient (RCR) | payer MEDICARE, OTHER, SELFPAY ==
[2024-05-05 07:16] LABS: Hematocrit 35.4 % (40-54); Hemoglobin 11.8 g/dL (13.0-16.5); Mean Corp Hgb Conc 33.3 g/dL (32-36); Mean Corpuscular Hgb 31.1 pg (27.0-32.0); Mean Corpuscular Volume 93.2 fL (80-94); Mean Platelet Vol. 9.7 fl (6.2-12.0); Platelet Count 221 K/mm3 (150-450); RBC Distribution Width CV 14.5 % (11.6-14.6); RBC Distribution Width SD 49.6 fl (35.1-43.9); White Blood Count 5.3 K/mm3 (4.4-11.0)
[2024-05-05 07:26] LABS: Albumin, Serum 3.1 g/dL (3.2-5.0); BUN 37 mg/dL (7-18); BUN/Creat Ratio 20.3 RATIO (10-20); Calcium,Total 9.6 mg/dL (8.5-10.1); Chloride 99 mmol/L (98-107); Creatinine, Serum 1.82 mg/dL (0.70-1.30); EST Glomerular Filtration Rate 39 mL/min (>60); Est Glom Filt Rate - Afr Amer 47 mL/min (>60); Glucose 185 mg/dL (74-106); Phosphorus 3.1 mg/dL (2.5-4.9); Potassium 4.2 mmol/L (3.5-5.1); Sodium Level 135 mmol/L (136-145)
[2024-05-05 07:30] LABS: International Normalized Ratio 1.2; Prothrombin Time (Protime)PT. 14.9 SECONDS (11.7-14.9)
[2024-05-05 08:13] LABS: PTHIN 64.6 pg/mL (18.4-80.1); Protein, Urine (Random) 59.4 mg/dL (<11.9); Protein:Creat Ratio 339 mg/g CRE (0-200)
[2024-05-12 06:47] LABS: INR Fingerstick 1.4
== END 2024-05-12 18:00 | disposition home or self-care (01) ==
LOC: LAB 06:27
PROVIDERS: PCP Student in an Organized Health Care Education/Training Program; Referring Provider Internal Medicine Cardiovascular Disease; Visit Provider Internal Medicine Cardiovascular Disease
DX: I48.0 Paroxysmal atrial fibrillation (principal); Z79.01 Long term (current) use of anticoagulants; N18.30 Chronic kidney disease, stage 3 unspecified; E11.22 Type 2 diabetes mellitus with diabetic chronic kidney disease; E55.9 Vitamin D deficiency, unspecified
CPT/HCPCS: 36415; 36416; 80069; 82306; 82570; 83970; 84156; 85027; 85610

== ENCOUNTER → 2024-05-18 | Outpatient (CLI) | payer MEDICARE, OTHER, SELFPAY | END | disposition home or self-care (01) | LOC: RAD 09:13 | PROVIDERS: PCP Student in an Organized Health Care Education/Training Program; Referring Provider Student in an Organized Health Care Education/Training Program; Visit Provider Student in an Organized Health Care Education/Training Program | DX: C32.1 Malignant neoplasm of supraglottis (principal) ==

== ENCOUNTER 2024-06-03 06:35 | Outpatient (RCR) | payer MEDICARE, OTHER, SELFPAY ==
[2024-05-19 06:33] LABS: INR Fingerstick 1.4; Prothrombin Time Fingerstick 15.7 SEC (11.7-14.9)
[2024-05-26 11:05] LABS: INR Fingerstick 1.4; Prothrombin Time Fingerstick 15.8 SEC (11.7-14.9)
[2024-06-03 06:46] LABS: INR Fingerstick 2.1; Prothrombin Time Fingerstick 22.3 SEC (11.7-14.9)
== END 2024-06-03 18:00 | disposition home or self-care (01) ==
LOC: LAB 06:35
PROVIDERS: PCP Student in an Organized Health Care Education/Training Program; Referring Provider Internal Medicine Cardiovascular Disease; Visit Provider Internal Medicine Cardiovascular Disease
DX: I48.0 Paroxysmal atrial fibrillation (principal); Z79.01 Long term (current) use of anticoagulants; N18.30 Chronic kidney disease, stage 3 unspecified; Z12.5 Encounter for screening for malignant neoplasm of prostate; E11.29 Type 2 diabetes mellitus with other diabetic kidney complication; E11.22 Type 2 diabetes mellitus with diabetic chronic kidney disease
CPT/HCPCS: 36416; 85610

== ENCOUNTER 2024-07-04 14:49 | Outpatient (RCR) | payer MEDICARE, OTHER, SELFPAY | END 2024-07-14 23:59 | LOC: NS 14:49 | PROVIDERS: PCP Student in an Organized Health Care Education/Training Program; Visit Provider Student in an Organized Health Care Education/Training Program | DX: Z71.3 Dietary counseling and surveillance (principal) ==

== ENCOUNTER 2024-07-07 08:11 | Outpatient (RCR) | payer MEDICARE, OTHER, SELFPAY ==
[2024-06-17 10:13] LABS: INR Fingerstick 2.3
[2024-07-14 12:07] LABS: INR Fingerstick 2.5; Prothrombin Time Fingerstick 26.8 SEC (11.7-14.9)
== END 2024-07-07 18:00 | disposition home or self-care (01) ==
LOC: LAB 08:11
PROVIDERS: PCP Student in an Organized Health Care Education/Training Program; Referring Provider Internal Medicine Cardiovascular Disease; Visit Provider Internal Medicine Cardiovascular Disease
DX: I48.0 Paroxysmal atrial fibrillation (principal); Z79.01 Long term (current) use of anticoagulants; N18.30 Chronic kidney disease, stage 3 unspecified; Z12.5 Encounter for screening for malignant neoplasm of prostate; E11.29 Type 2 diabetes mellitus with other diabetic kidney complication; E11.22 Type 2 diabetes mellitus with diabetic chronic kidney disease
CPT/HCPCS: 36416; 85610

== ENCOUNTER → 2024-07-13 | Outpatient (CLI) | payer MEDICARE, OTHER, SELFPAY ==
--- NOTE | 2024-07-13 14:23 | ST.MBS ---
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 04/01/2024: received definitive radiation therapy consisting of 6996 cGy delivered to the gross disease within the larynx and bilateral adenopathy, 5940 cGy delivered to the entire remaining larynx and bilateral neck and 5412 cGy to the high level 2 bilaterally and bilateral supraclavicular fossa all in 33 fractions?He was treated 6 fractions per week because he was not a candidate for chemotherapy.? Dysphagia History secondary to SCC of supraglottic larynx: BSE with [employer] 02/11/24 revealed mild oropharyngeal dysphagia and recommended Regular textures / Thin liquids with compensatory strategies to decrease risk for aspiration. [employer] recommended MBSS prior to radiation treatment to further assess swallow function and aspiration risk. MBSS 02/15/24 revealed mild oral dysphagia, moderate pharyngoesophageal dysphagia and recommended the following: ?Diet: Regular Textures and Thin Liquids; Comment: STOP food/drink and resume later if concern for reflux, retention, or regurgitation, and resume food/drink at a later time. Compensatory Strategies: Small Bites, Small Sips (Cough and re-swallow after every 1-2 sips), Slow Rate, Sitting upright and Remain sitting upright for 60 minutes after PO intake.? He followed w/ OP ST during and following radiation treatment to manage his dysphagia. FEES completed 05/28/2024 due to difficulty resuming an oral diet following treatment. FEES revealed mild oral dysphagia, moderate-severe pharyngeal dysphagia w/ moderate-severe edema of the oropharynx, hypopharynx, and larynx. FEES recommended thin liquids w/ use of compensatory strategies. Since study, he has continued to follow w/ ST and has advanced oral diet to puree textures w/ some soft solids and thin liquids. He consumes ~3-4, 2-3-oz servings of food daily and ~32oz of liquid daily by mouth. 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 He has had significant weight loss and is currently 159.4lbs (down ~28lbs since January 2024). Pt was seen by ENT today - pt reported that Dr. Sanchez told him he has persisting edema. Dysphagia History prior to SCC of supraglottic larynx: Hx of MBSS in 2014, which revealed mild pharyngoesophageal dysphagia. No follow up dysphagia therapy was completed. Over the years, he has felt that food/pills get caught in his throat. At times, he must ?bring food back up to get it back down.? Other PMH: CHF, Carcinoma of epiglottis, Smoker, Wears hearing aid and dentures, Alcohol use, Neuropathy, Difficulty swallowing, Sleep apnea, Shortness of breath on exertion, A fib, Hx of CVA (10/2015), HTN, NSTEMI, Upper GI bleed, Chronic renal failure, HLD, Atherosclerosis of coronary artery of [place] heart without angina pectoris, Stenosis of left subclavian artery, CKD, DDD, Marijuana use, Diabetic neuropathy, Osteoarthritis, DM type 2, See EMR for full PMH). Current Diet Ordered: Puree w/ some soft solids / Thin liquids Dentition: Edentulous Mental Status: WNL Respiratory Status: Oxygenating on Room Air Penetration-Aspiration Scale Penetration-Aspiration Scale: OBJECTIVE ASSESSMENT OF SWALLOW FUNCTION (QUANTITATIVE ? PER TRIAL): PENETRATION / ASPIRATION SCALE (BURRELL): 1 = does not enter airway 2 = enters airway/above vocal folds/ejected 3 = enters airway/above vocal folds/not ejected 4 = enters airway/contacts vocal folds/ejected 5 = enters airway/contacts vocal folds/not ejected 6 = enters airway/below vocal folds/ejected 7 = enters airway/below vocal folds/not ejected despite effort 8 = enters airway/below vocal folds/no effort VIDEOFLOROSCOPIC SCALE SCORE (BURRELL): Grade I = aspiration of material that has penetrated into the laryngeal vestibule, intact cough reflex Grade II = aspiration < 10 % of the bolus, intact cough reflex Grade III = aspiration of < 10 % of the bolus, reduced cough reflex or aspiration of > 10 % of the bolus, intact cough reflex Grade IV = aspiration of > 10 % of the bolus, reduced cough reflex Penetration-Aspiration Scale Score Thin Liquid via teaspoon: Result: 3= enters airways/above vocal folds/not ejected Thin Liquid via teaspoon Trial 2: Result: 7= enters airways/below vocal folds/not ejected despite effort Thin Liquid via small single sip: cup: Result: 5= enters airways/contacts vocal folds/not ejected Comment: Reflexive cough = somewhat effective [place] Thick Liquid via small single sip: cup: Result: 5= enters airways/contacts vocal folds/not ejected Comment: Reflexive cough = somewhat effective Pudding via teaspoon: Result: 7= enters airways/below vocal folds/not ejected despite effort (GRADE III ASPIRATION (>10% of bolus)) Comment: Cued chin tuck mid-swallow = NOT EFFECTIVE; Reflexive throat clear = not effective; [employer] cued hard cough = somewhat effective, but pt did not eject aspirated barium. Esophageal screen - Minimal retention in distal esophagus w/ retrograde flow. Thin liquid via cup cued double swallow and cough and re-swallow: Result: 7= enters airways/below vocal folds/not ejected despite effort Thin liquid via cup w/ cough and re-swallow: Result: 5= enters airways/contacts vocal folds/not ejected Oral Phase Labial Seal: No Labial Escape Tongue Control During Bolus Hold: Posterior escape of greater than half of bolus Bolus Transport/Lingual Motion: Delayed initiation of tongue motion Oral Residue: Residue collection on oral structures Pharyngeal Phase Initiation of Pharyngeal Swallow: Bolus head at posterior laryngeal surgace of epiglottis Soft Palate Elevation: Trace column of contrast/air between soft palate and pharyngeal wall Laryngeal Elevation: Partial superior movement thyroid cart/partial apprx aryt-epig petiole Anterior Hyoid Excursion: Partial anterior movement Epiglottic Movement: No inversion Laryngeal Vestibule Closure at Height of Swallow: Incomplete; narrow column of air/contrast in laryngeal vestibule Pharyngeal Stripping Wave: Absent Pharyngoesophageal Segment Opening: Minimal distension and minimal duration; marked obstruction of flow Tongue Base Retraction: Wide column of contrast between tongue base & post. pharyngeal wall Pharyngeal Residue: Majority of contrast within or on pharyngeal structures Esophageal Phase Esophageal Clearance: Esophageal retention w/ retrograde flow below pharyngoesophageal seg. (minimal retention in barium) Diagnosis/Impression Diagnosis: Severe oropharyngeal dysphagia R13.12 Impression: Of note, pt was using effortful swallow for all swallows during MBSS. The oral phase is primarily marked by... -Did not assess mastication of cookie due to deficits in pharyngeal clearance of pudding and concern for choking. -Decreased bolus control w/ premature posterior loss of >1/2 of the bolus to the posterior surface of the epiglottis prior to swallow onset. -Delayed tongue motion for A-P transport. The pharyngeal phase is primarily marked by... -Large, anterior bony protrusions C2-4, appearing unchanged since previous study. Dr. Mckeon again confirmed these to be cervical osteophytes. The cervical osteophytes negatively impacted swallow function, including obstruction of epiglottic inversion. -Aspiration of pudding (>10% of bolus) with weak, delayed reflexive cough - [employer] then cued hard cough which cleared laryngeal vestibule but not trachea. Aspiration of thin liquids with reflexive cough that was somewhat effective in decreasing amount of aspiration. Deep laryngeal penetration of thin liquids and mildly thick liquids. Cough and re-swallow was most effective in decreasing aspiration risk. Recommendations Diet: Thin Liquids Comment: Full liquid diet; Continued use of PEG tube to meet nutrition/hydration Compensatory Strategies: Small Sips (COUGH AND RE-SWALLOW AFTER EACH SIP), Slow Rate, Sitting upright and Remain sitting upright for 30 minutes after PO intake Recommend Repeat Modified Barium Swallow: Yes Need for Skilled Speech Therapy Services: Yes Comment: Continue to follow w/ OP ST to manage severe oropharyngeal dysphagia Education Completed: 1. Described result of evaluation., 2. Pt understands evaluation & agrees with goals and treatment plan., 4. Family/caregivers understand evaluation & agree w/ goals & tx plan., 7. Pt requires further education on strategies & risks. and 8. Family/caregivers require further education on strategies & risks. Status Active ST Patient: Active Contact Information [facility] Speech Therapy:: Betsy Nguyen M.A. CCC-[employer]? Speech-Language Pathologist?? [facility] [address] [place] [address]? [email or web address]?? [phone]
== END | disposition home or self-care (01) ==
LOC: RAD 12:56
PROVIDERS: PCP Student in an Organized Health Care Education/Training Program; Referring Provider Student in an Organized Health Care Education/Training Program; Visit Provider Student in an Organized Health Care Education/Training Program
DX: C32.1 Malignant neoplasm of supraglottis (principal)
CPT/HCPCS: 74230; 92611

== ENCOUNTER 2024-08-12 06:27 | Outpatient (RCR) | payer MEDICARE, OTHER, SELFPAY ==
[2024-08-12 07:07] LABS: Hematocrit 34.1 % (40-54); Hemoglobin 11.5 g/dL (13.0-16.5); Mean Corp Hgb Conc 33.7 g/dL (32-36); Mean Corpuscular Hgb 31.6 pg (27.0-32.0); Mean Corpuscular Volume 93.7 fL (80-94); Mean Platelet Vol. 10.1 fl (6.2-12.0); Platelet Count 187 K/mm3 (150-450); RBC Distribution Width CV 13.2 % (11.6-14.6); Red Blood Count 3.64 M/mm3 (4.6-6.2); White Blood Count 6.4 K/mm3 (4.4-11.0)
[2024-08-12 07:38] LABS: International Normalized Ratio 2.2; Prothrombin Time (Protime)PT. 23.9 SECONDS (11.7-14.9)
[2024-08-12 09:04] LABS: ALB/GLOB Ratio 0.8 RATIO (0.9-2.4); AST(SGOT) 22 U/L (15-37); Alanine Aminotransfer ALT/SGPT 28 U/L (16-61); Albumin, Serum 3.3 g/dL (3.2-5.0); Alkaline Phosphatase 106 U/L (45-117); Anion Gap 6 (5-15); BUN 49 mg/dL (7-18); BUN/Creat Ratio 27.2 RATIO (10-20); Bilirubin, Direct 0.15 mg/dL (0.00-0.30); Calcium,Total 9.5 mg/dL (8.5-10.1); Chloride 104 mmol/L (98-107); Cholesterol 164 mg/dL (200); EST Glomerular Filtration Rate 39 mL/min (>60); Est Glom Filt Rate - Afr Amer 47 mL/min (>60); Globulin 4.3 g/dL (2.2-4.2); Glucose 96 mg/dL (74-106); High Density Lipoprotein 36 mg/dL; Phosphorus 3.6 mg/dL (2.5-4.9); Potassium 4.1 mmol/L (3.5-5.1); Protein, Total 7.6 g/dL (6.4-8.2); Sodium Level 140 mmol/L (136-145); T4 Free Direct 0.94 ng/dL (0.76-1.46); Triglycerides 231 mg/dL; Very Low Density Lipoprotein 46 mg/dL (5-40)
[2024-08-12 11:16] LABS: Microalbumin:Creatinine Ratio 49.3 mg/g CRE (<30 mg/g CRE)
== END 2024-08-13 18:00 | disposition home or self-care (01) ==
LOC: LAB 06:27
PROVIDERS: PCP Student in an Organized Health Care Education/Training Program; Referring Provider Internal Medicine Cardiovascular Disease; Visit Provider Internal Medicine Cardiovascular Disease
DX: I48.0 Paroxysmal atrial fibrillation (principal); Z79.01 Long term (current) use of anticoagulants; N18.32 Chronic kidney disease, stage 3b; Z12.5 Encounter for screening for malignant neoplasm of prostate; E11.29 Type 2 diabetes mellitus with other diabetic kidney complication; R53.83 Other fatigue; Z13.6 Encounter for screening for cardiovascular disorders; E11.22 Type 2 diabetes mellitus with diabetic chronic kidney disease
CPT/HCPCS: 36415; 80053; 80061; 82043; 82248; 82306; 82570; 84100; 84439; 84443; 85027; 85610

== ENCOUNTER 2024-10-04 07:51 | Outpatient (RCR) | payer MEDICARE, OTHER, SELFPAY ==
[2024-10-04 08:05] LABS: INR Fingerstick 2.8; Prothrombin Time Fingerstick 28.5 SEC (11.7-14.9)
== END 2024-10-04 18:00 | disposition home or self-care (01) ==
LOC: LAB 07:51
PROVIDERS: PCP Student in an Organized Health Care Education/Training Program; Referring Provider Internal Medicine Cardiovascular Disease; Visit Provider Internal Medicine Cardiovascular Disease
DX: I48.0 Paroxysmal atrial fibrillation (principal); Z79.01 Long term (current) use of anticoagulants; N18.30 Chronic kidney disease, stage 3 unspecified; Z12.5 Encounter for screening for malignant neoplasm of prostate; E11.29 Type 2 diabetes mellitus with other diabetic kidney complication; E11.22 Type 2 diabetes mellitus with diabetic chronic kidney disease
CPT/HCPCS: 36416; 85610

== ENCOUNTER → 2024-10-20 | Outpatient (CLI) | payer MEDICARE, OTHER, SELFPAY ==
[2024-10-20 12:37] VITALS: PULSE 80; PULSE 84; PULSE 85; PULSE 86; PULSE 87; PULSE 88; O2SAT 94; O2SAT 95; O2SAT 98
--- NOTE | 2024-10-24 12:25 | PCM.PSN.6M ---
PSN 6 Minute Walk Test 6 Minute Walk Test 6 Minute Walk Test: 6 Minute Walk Test PSN:6-Minute Walk Test Start: 10/20/24 12:37 Freq: Status: Active Protocol: [id number] Document 10/20/24 12:37 JASPERMARIE (Rec: 10/20/24 12:42 [email or web address] [email or web address]) 6 Minute Walk Test Date Performed 10/20/24 Time Performed 12:30 Height 5 ft 7.5 in Weight: 151 lb Weight in Pounds 151.[address]: Terence Alba Assistive device Cane used: Pre-test Oxygen Delivery Room Air Method Pulse Ox (%) 98 Pulse Rate (60-100 80 beats/min) 1st minute Oxygen Delivery Room Air Method Pulse Ox (%) 94 Pulse Rate (60-100 87 beats/min) 2nd minute Oxygen Delivery Room Air Method Pulse Ox (%) 94 Pulse Rate (60-100 84 beats/min) Number of Rests 1 Taken 3rd minute Oxygen Delivery Room Air Method Pulse Ox (%) 95 Pulse Rate (60-100 86 beats/min) Number of Rests 1 Taken 4th minute Oxygen Delivery Room Air Method Pulse Ox (%) 94 Pulse Rate (60-100 85 beats/min) Number of Rests 1 Taken 5th minute Oxygen Delivery Room Air Method Pulse Ox (%) 95 Pulse Rate (60-100 88 beats/min) 6th minute Oxygen Delivery Room Air Method Pulse Ox (%) 94 Pulse Rate (60-100 88 beats/min) Dyspnea Maria Teresa Scale ( 4 0-10) Exertion Maria Teresa Scale 14 (6-20) Post-test Oxygen Delivery Room Air Method Pulse Ox (%) 98 Pulse Rate (60-100 86 beats/min) Full Laps Walked 10 Partial Lap, Number 10 of Tiles Walked Total Distance 600 Walked (ft) Interpretation Interpretation: The patient ambulated 600 feet over the course of 6 minutes beginning on room air with the use of a cane. Pretesting oxygen saturation was noted to be 98% on room air. With ambulation, the pramod oxygen saturation was 94%. Although there was evidence of impaired walk distance, there was no significant exertional oxygen desaturation. Recommendations Recommendations: There is no indication for the use of supplemental oxygen at this time.
== END | disposition home or self-care (01) ==
LOC: PSN 12:16
PROVIDERS: PCP Student in an Organized Health Care Education/Training Program; Referring Provider Internal Medicine Critical Care Medicine; Visit Provider Internal Medicine Critical Care Medicine
DX: R59.0 Localized enlarged lymph nodes (principal); F17.211 Nicotine dependence, cigarettes, in remission
CPT/HCPCS: 94618

== ENCOUNTER → 2024-10-21 | Outpatient (CLI) | payer MEDICARE, OTHER, SELFPAY ==
--- NOTE | 2024-10-21 09:43 | ST.MBS ---
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 04/01/2024: received definitive radiation therapy consisting of 6996 cGy delivered to the gross disease within the larynx and bilateral adenopathy, 5940 cGy delivered to the entire remaining larynx and bilateral neck and 5412 cGy to the high level 2 bilaterally and bilateral supraclavicular fossa all in 33 fractions?He was treated 6 fractions per week because he was not a candidate for chemotherapy.? Currently, he is undergoing work up for lung nodule w/ bronchoscopy and biopsy planned later this month. Dysphagia History secondary to SCC of supraglottic larynx: BSE with [facility] [employer] 02/11/24 revealed mild oropharyngeal dysphagia and recommended Regular textures / Thin liquids with compensatory strategies to decrease risk for aspiration. [facility] [employer] recommended MBSS prior to radiation treatment to further assess swallow function and aspiration risk. MBSS 02/15/24 revealed mild oral dysphagia, moderate pharyngoesophageal dysphagia and recommended the following: ?Diet: Regular Textures and Thin Liquids; Comment: STOP food/drink and resume later if concern for reflux, retention, or regurgitation, and resume food/drink at a later time. Compensatory Strategies: Small Bites, Small Sips (Cough and re-swallow after every 1-2 sips), Slow Rate, Sitting upright and Remain sitting upright for 60 minutes after PO intake.? He followed w/ OP ST during and following radiation treatment to manage his dysphagia. FEES completed 05/28/2024 due to difficulty resuming an oral diet following treatment. FEES revealed mild oral dysphagia, moderate-severe pharyngeal dysphagia w/ moderate-severe edema of the oropharynx, hypopharynx, and larynx. FEES recommended thin liquids w/ use of compensatory strategies. Since study, he has continued to follow w/ ST and advanced to puree w/ some soft solids / thin liquids; however, due to significant silent aspiration w/ pudding on most recent MBSS 06/2024, he resumed a full thin liquid diet. 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 He has had significant weight loss since January of 2024 and is currently 151.8lbs (down ~36lbs since January 2024). Pt has been recommended for dilation w/ ENT, Dr. Sanchez; however, pt is waiting until he has completed work up for lung nodule. Dysphagia History prior to SCC of supraglottic larynx: Hx of MBSS in 2014, which revealed mild pharyngoesophageal dysphagia. No follow up dysphagia therapy was completed. Over the years, he has felt that food/pills get caught in his throat. At times, he must ?bring food back up to get it back down.? Other PMH: CHF, Carcinoma of epiglottis, Smoker, Wears hearing aid and dentures, Alcohol use, Neuropathy, Difficulty swallowing, Sleep apnea, Shortness of breath on exertion, A fib, Hx of CVA (10/2015), HTN, NSTEMI, Upper GI bleed, Chronic renal failure, HLD, Atherosclerosis of coronary artery of [place] heart without angina pectoris, Stenosis of left subclavian artery, CKD, DDD, Marijuana use, Diabetic neuropathy, Osteoarthritis, DM type 2, See EMR for full PMH). Current Diet Ordered: Puree w/ some soft solids / Thin liquids Dentition: Edentulous Mental Status: WNL Respiratory Status: Oxygenating on Room Air Penetration-Aspiration Scale Penetration-Aspiration Scale: OBJECTIVE ASSESSMENT OF SWALLOW FUNCTION (QUANTITATIVE ? PER TRIAL): PENETRATION / ASPIRATION SCALE (BURRELL): 1 = does not enter airway 2 = enters airway/above vocal folds/ejected 3 = enters airway/above vocal folds/not ejected 4 = enters airway/contacts vocal folds/ejected 5 = enters airway/contacts vocal folds/not ejected 6 = enters airway/below vocal folds/ejected 7 = enters airway/below vocal folds/not ejected despite effort 8 = enters airway/below vocal folds/no effort VIDEOFLOROSCOPIC SCALE SCORE (BURRELL): Grade I = aspiration of material that has penetrated into the laryngeal vestibule, intact cough reflex Grade II = aspiration < 10 % of the bolus, intact cough reflex Grade III = aspiration of < 10 % of the bolus, reduced cough reflex or aspiration of > 10 % of the bolus, intact cough reflex Grade IV = aspiration of > 10 % of the bolus, reduced cough reflex Penetration-Aspiration Scale Score Thin Liquid 5mL: Result: 3= enters airways/above vocal folds/not ejected Thin Liquid 5mL Trial 2: Result: 5= enters airways/contacts vocal folds/not ejected Thin Liquid 10mL: Result: 7= enters airways/below vocal folds/not ejected despite effort Mildly Thick Liquid 5mL: Result: 5= enters airways/contacts vocal folds/not ejected Mildly Thick Liquid 5mL Trial 2: Result: 5= enters airways/contacts vocal folds/not ejected Mildly Thick Liquid 10mL: Result: 3= enters airways/above vocal folds/not ejected Pudding 10mL: Comment: Unable to clear from pharynx. Pt coughed and expectorated this trial. Oral Phase Labial Seal: Interlabial escape, no progression to anterior lip Tongue Control During Bolus Hold: Posterior escape of less than half of bolus Bolus Transport/Lingual Motion: Delayed initiation of tongue motion Oral Residue: Residue collection on oral structures Pharyngeal Phase Initiation of Pharyngeal Swallow: Bolus head at posterior laryngeal surgace of epiglottis Soft Palate Elevation: Trace column of contrast/air between soft palate and pharyngeal wall Laryngeal Elevation: Partial superior movement thyroid cart/partial apprx aryt-epig petiole Anterior Hyoid Excursion: Partial anterior movement Epiglottic Movement: Partial inversion Laryngeal Vestibule Closure at Height of Swallow: None; wide column of air/contrast in laryngeal vestibule (some laryngeal elevation, but wide contrast in laryngeal vestibule during some trials of liquids) Pharyngeal Stripping Wave: Present - diminished Pharyngoesophageal Segment Opening: Minimal distension and minimal duration; marked obstruction of flow Tongue Base Retraction: Wide column of contrast between tongue base & post. pharyngeal wall Pharyngeal Residue: Minimal to no pharyngeal clearance (pudding) Esophageal Phase Esophageal Clearance: Esophageal retention (minimal barium retention in lower esophagus at the end of the study.) Diagnosis/Impression Diagnosis: Severe oropharyngeal dysphagia R13.12 Impression: The oral phase is primarily marked by... -Did not assess mastication of cookie due to no pharyngeal clearance of pudding and concern for choking. -Decreased bolus control w/ premature posterior loss of <1/2 of the bolus to the posterior surface of the epiglottis prior to swallow onset. -Delayed tongue motion for A-P transport. The pharyngeal phase is primarily marked by... -Large, anterior bony protrusions C2-4 known to pt and DEAN OF ADMISSIONS from previous MBSS. These cervical osteophytes continue to negatively impact swallow function, espcially by obstruction of epiglottic inversion. -Decreased pharyngeal motility w/ presence of cervical osteophytes, decreased TB retraction, pharyngeal stripping wave, and UES opening/duration. DE[facility] OF ADMISSIONS recommends the patient follow up w/ ENT, Dr. Sanchez, re: recommended dilation. -Aspiration of 10mL of thin liquids both during and after the swallow with reflexive cough that was somewhat effective in decreasing amount of aspiration. Deep laryngeal penetration of 5mL of thin liquids and 5mL of mildly thick liquids. Recommendations Diet: Thin Liquids Compensatory Strategies: Small Sips (By tsp or very small cup sips), Slow Rate, Multiple Swallows (Hard swallows) and Sitting upright Recommend Repeat Modified Barium Swallow: Yes (3-6 months for ongoing assessment of swallow function. If pt participates in MDTP, will recommend MBSS after completion of this therapy program to monitor patient's progress and for ongoing assessment of aspiration risk to determine LRD textures.) Need for Skilled Speech Therapy Services: Yes Comment: Pt has been recommended by OP ST for participation in [facility] ([facility]TP). This program is a high-intensity oropharyngeal exercise program aimed at systematically advancing oral intake of liquids and foods. Based on this MBSS, he is recommended to begin at Level 4 - Thin 5mL with a cough response as his clincial indicator of aspiration. Pending results of upcoming biopsies, the patient would like to begin MDTP this November. Education Completed: 1. Described result of evaluation. and 2. Pt understands evaluation & agrees with goals and treatment plan. Status Active ST Patient: Active Contact Information [facility] Speech Therapy:: Betsy Nguyen M.A. [facility]? Speech-Language Pathologist?? [facility] [address] [place] [address]? [email or web address]?? [phone]
== END | disposition home or self-care (01) ==
LOC: RAD 10:21
PROVIDERS: PCP Student in an Organized Health Care Education/Training Program; Referring Provider Student in an Organized Health Care Education/Training Program; Visit Provider Student in an Organized Health Care Education/Training Program
DX: C32.1 Malignant neoplasm of supraglottis (principal)
CPT/HCPCS: 74230; 92611

== ENCOUNTER → 2024-10-28 | Outpatient (CLI) | payer MEDICARE, OTHER, SELFPAY | END | disposition home or self-care (01) | LOC: PSN 08:09 | PROVIDERS: PCP Student in an Organized Health Care Education/Training Program; Referring Provider Internal Medicine Critical Care Medicine; Visit Provider Internal Medicine Critical Care Medicine | DX: R59.0 Localized enlarged lymph nodes (principal); F17.211 Nicotine dependence, cigarettes, in remission | CPT/HCPCS: 94060; 94726; 94729 ==

== ENCOUNTER 2024-11-03 06:53 | Outpatient (RCR) | payer MEDICARE, OTHER, SELFPAY ==
[2024-11-03 07:29] LABS: Hematocrit 34.4 % (40-54); Hemoglobin 11.2 g/dL (13.0-16.5); Mean Corp Hgb Conc 32.6 g/dL (32-36); Mean Corpuscular Hgb 31.3 pg (27.0-32.0); Mean Corpuscular Volume 96.1 fL (80-94); Mean Platelet Vol. 10.4 fl (6.2-12.0); Platelet Count 144 K/mm3 (150-450); RBC Distribution Width SD 49.6 fl (35.1-43.9); Red Blood Count 3.58 M/mm3 (4.6-6.2); White Blood Count 4.8 K/mm3 (4.4-11.0)
[2024-11-03 07:50] LABS: Albumin, Serum 3.3 g/dL (3.2-5.0); BUN 45 mg/dL (7-18); BUN/Creat Ratio 28.5 RATIO (10-20); Calcium,Total 9.3 mg/dL (8.5-10.1); Chloride 104 mmol/L (98-107); Creatinine, Serum 1.58 mg/dL (0.70-1.30); EST Glomerular Filtration Rate 46 mL/min (>60); Est Glom Filt Rate - Afr Amer 55 mL/min (>60); Glucose 90 mg/dL (74-106); Phosphorus 4.2 mg/dL (2.5-4.9); Potassium 4.3 mmol/L (3.5-5.1); Sodium Level 139 mmol/L (136-145)
[2024-11-03 08:03] LABS: PTHIN 62.6 pg/mL (18.4-80.1)
[2024-11-03 14:38] LABS: Vitamin D,25 Hydroxy 59.8 ng/mL
[2024-11-04 11:20] LABS: Protein, Urine (Random) 24.9 mg/dL (<11.9); Protein:Creat Ratio 652 mg/g CRE (0-200)
== END 2024-11-11 18:00 | disposition home or self-care (01) ==
LOC: LAB 06:53
PROVIDERS: PCP Student in an Organized Health Care Education/Training Program; Referring Provider Internal Medicine Cardiovascular Disease; Visit Provider Internal Medicine Cardiovascular Disease
DX: I48.0 Paroxysmal atrial fibrillation (principal); Z79.01 Long term (current) use of anticoagulants; E11.65 Type 2 diabetes mellitus with hyperglycemia; Z12.5 Encounter for screening for malignant neoplasm of prostate; M54.59 Other low back pain; N18.32 Chronic kidney disease, stage 3b
CPT/HCPCS: 36415; 80069; 82306; 82570; 83970; 84156; 85027

== ENCOUNTER 2024-11-04 10:01 | Day surgery (SDC) | payer MEDICARE, OTHER, SELFPAY ==
--- NOTE | 2024-10-31 13:03 | PCM.HP.STD ---
HPI - General HPI Narrative The patient is a 73-year-old male who was initially evaluated in our pulmonary medicine office on October 13, 2024 following a referral for PET positive mediastinal adenopathy. 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 He is currently followed by Dr. Lizama on an outpatient basis. Recent pet imaging was completed which demonstrated resolution of the laryngeal and neck adenopathy. However, there was some interval progression noted in the thoracic perihilar regions with an SUV of 5.1. Therefore, the patient was referred to our office to be considered for mediastinal lymph node sampling via EBUS. The patient has an approximate [id number] smoking history, having quit completely 30 years ago. He has never been evaluated by a scrap preparer, nor has he ever completed pulmonary function studies. The patient does not currently utilize any supplemental oxygen. He does have a known history of coronary artery disease, hypertension, peripheral arterial disease, chronic kidney disease, paroxysmal atrial fibrillation and diabetes. In addition to his personal smoking history, the patient did grow up in a smoking household. 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 He has never previously been diagnosed with asthma. The patient is systemically anticoagulated on Coumadin. He receives all of his nutrition via his feeding tube. He takes nothing by mouth. His weight and appetite have been relatively stable. FORMERLY [facility] Medical History CPAP (continuous positive airway pressure) dependence Cancer Macular degeneration of right eye Carcinoma of epiglottis Smoker Wears hearing aid Wears dentures Alcohol use Ambulates with cane Neuropathy Back pain Blackout Difficulty swallowing Former smoker Shortness of breath on exertion Leg cramps History of edema Stroke/cerebrovascular accident History of atrial fibrillation History of echocardiogram History of stress test Cardiology follow-up encounter Chronic diastolic (congestive) heart failure Hypertension Acute on chronic diastolic (congestive) heart failure History of non-ST elevation myocardial infarction (NSTEMI) (11/02/19) Upper GI bleed (11/02/19) Paroxysmal atrial fibrillation History of CVA (cerebrovascular accident) (10/2015) Chronic renal failure Claudication Peripheral vascular occlusive disease Hyperlipidemia Atherosclerosis of coronary artery of [place] heart without angina pectoris Stenosis of left subclavian artery Anxiety and depression CKD (chronic kidney disease) DDD (degenerative disc disease) Marijuana use Narcolepsy Diabetic neuropathy Osteoarthritis Type 2 diabetes mellitus Lacunar infarct, acute Home Medications ?Medication ?Instructions ?Recorded ?Last Taken ?Type pregabalin 150 mg capsule 150 mg PO BID pain 11/06/15 10/12/20 22:00 History warfarin 1 mg tablet 0.5 mg PO SUSA 02/22/24 02/18/24 History warfarin 1 mg tablet 1 mg PO MOTUWETHFR 02/22/24 02/18/24 History albuterol sulfate 90 mcg/actuation 2 puff inhalation Q4 PRN wheezing 10/13/24 Unknown History aerosol inhaler Allergy/AdvReac Type Severity Reaction Status Date / Time Iodinated Contrast Media AdvReac Mild Vomiting Verified 10/13/24 11:19 (iodine contrast) metformin AdvReac Nausea/Vom/ Verified 10/13/24 11:19 Diarrhea Family History (Updated 10/13/24 @ 11:20 by Vida Gilmore LPN) Brother Cancer lung Son Cancer Surgical History S/P percutaneous endoscopic gastrostomy (PEG) tube placement History of laryngoscopy History of cataract surgery History of colonoscopy History of cholecystectomy (~10/2020) History of left heart catheterization (11/13/04) History of angioplasty of peripheral vessel (09/2018) Social History Smoking Status: Former smoker quit date: 09/14/97 Tobacco: How many years used: 45 how long ago did patient quit smokin years ago alcohol intake: current alcohol intake frequency: 0-2 drinks per day Alcohol type: hard liquor substance use type: marijuana caffeine: Yes Type: carbonated beverages Number of servings: 1 Physical Exam Const alert and no apparent distress General Appearance: cooperative HEENT normocephalic and head/scalp atraumatic Eyes PERRL and EOMs intact bilaterally Neck supple General: trachea midline Resp normal respiratory effort Auscultation: diminished lung sounds Cardio regular rate and regular rhythm GI normal to inspection, nondistended, normoactive bowel sounds Extremity no clubbing, cyanosis or edema Skin General Skin Exam: dry skin Lesions: no lesions Neuro CN's II-XII intact bilaterally and no focal motor deficits Psych cooperative and affect normal Assessment & Plan Assessment/Plan (1) Mediastinal lymphadenopathy: PLAN: The patient presented to the pulmonary medicine office for the evaluation of PET positive mediastinal adenopathy in the setting of a known history of 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 Plan to proceed with EBUS facilitated mediastinal lymph node sampling. The risks and benefits of the proposed procedure were discussed with the patient. Questions were answered accordingly. The patient was in agreement to proceed.
--- NOTE | 2024-11-02 15:15 | PAT.ANE_ITS ---
Pre-Assessment Diagnosis/Proposed Procedure Planned Operative Procedure(s): Endobronchial Ultrasound Anesthesia History Anesthesia History - supervisor particleboard: Anesthesia History - supervisor particleboard Hx Hospitalization No 11/02/24 14:57 Any Problems With Anesthesia No 11/02/24 14:57 Cholinesterase deficiency No 11/02/24 14:57 You/Your Family Experience No 11/02/24 14:57 fever (hyperthermia) with Relationship Recent Exposure to Contagious No 02/25/24 06:34 Disease Does patient have nerve No 11/02/24 14:57 stimulator Patient instructed to have device shut off --Does patient have Pacemaker or ICD? When Was Last Pacemaker Check QUESTION #4 FULL TEXT: You/Your Family Experience fever (hyperthermia) with Anesthesia Last Oral Intake Last Oral intake: Last Oral Intake NPO since Meds taken in AM with sips of water? Meds patient instructed to take am of surgery PONV PONV - supervisor particleboard: PONV - supervisor particleboard Female No 11/02/24 14:57 HX of Motion Sickness No 11/02/24 14:57 HX of N/V After Surgery No 11/02/24 14:57 Non-Smoker Yes 11/02/24 14:57 Duration of Surgery greater No 11/02/24 14:57 than 60 minutes Number of Risk Factors 1 11/02/24 14:57 PONV Score Low Risk 11/02/24 14:57 Height & Weight Height & Weight: Anesthesia: Height & Weight Height 5 ft 7 in 10/13/24 09:59 Respiratory Assessment Respiratory Assessment - supervisor particleboard: Respiratory Tract Infection Hx - supervisor particleboard Hx Respiratory Tract Infection No 11/02/24 14:57 STOP Sleep Apnea STOP Sleep Apnea - supervisor particleboard: STOP Sleep Apnea - supervisor particleboard Hx Hypertension Yes 11/02/24 14:57 Hx Sleep Apnea Yes 11/02/24 14:57 CPAP Yes: NONCOMPLIANT 11/02/24 14:57 BIPAP No 11/02/24 14:57 Do you snore loudly (louder than talking or can be heard Do you often feel tired/ fatigued/ sleepy during daytime? Has anyone observed you stop breathing during sleep? STOP Results Positive 11/02/24 14:57 QUESTION #5 FULL TEXT : Do you snore loudly (louder than talking or can be heard through closed doors)? Tobacco Use History Tobacco Use History - supervisor particleboard: Tobacco Use History - supervisor particleboard Tobacco Use Smoking Status Former smoker 11/02/24 14:57 Hx Tobacco Use Yes 11/02/24 14:57 Years Smoking Packs Smoked per Day Smoking Cessation Date was No - quit smoking greater 11/02/24 14:57 within the last 15 years than 15 years ago Hx Smoking Cessation Date 09/14/97 11/02/24 14:57 Hx Smoking Cessation No 11/02/24 14:57 Counseling Hematologic Medial History Hematologic Hx - supervisor particleboard: Hematologic Medical Hx - documentation supervisor Hx of Blood Transfusion No 11/02/24 14:57 Hx of Transfusion in last 3 No 11/02/24 14:57 Months Date of Last Transfusion (if within last 3 months) Ever experience any problems No 11/02/24 14:57 with transfusion(s)? Specify any problems Hx of Preganancy in last 3 N/A 11/02/24 14:57 Months Nurse Filling Out Transfusion VCHRISTIN 11/02/24 14:57 & Questions: Date: 11/02/24 11/02/24 14:57 Time: 14:59 11/02/24 14:57 Patient unable to answer at this time (ie. confused, unrespo /Reproduction History /Reproductive History - supervisor particleboard: /Reproductive Hx- supervisor particleboard Hx Now No 11/02/24 14:57 Gestational Age (in weeks): EDC: Hx Hx Para Hx Section SAB No 11/02/24 14:57 FORMERLY [facility] Medical History (Updated 11/02/24 @ 14:57 by Maggie Armstrong) CPAP (continuous positive airway pressure) dependence Cancer Macular degeneration of right eye Carcinoma of epiglottis Smoker Wears hearing aid Wears dentures Alcohol use Ambulates with cane Neuropathy Back pain Blackout Difficulty swallowing Former smoker Shortness of breath on exertion Leg cramps History of edema Stroke/cerebrovascular accident History of atrial fibrillation History of echocardiogram History of stress test Cardiology follow-up encounter Chronic diastolic (congestive) heart failure Hypertension Acute on chronic diastolic (congestive) heart failure History of non-ST elevation myocardial infarction (NSTEMI) (11/02/19) Upper GI bleed (11/02/19) Paroxysmal atrial fibrillation History of CVA (cerebrovascular accident) (10/2015) Chronic renal failure Claudication Peripheral vascular occlusive disease Hyperlipidemia Atherosclerosis of coronary artery of [place] heart without angina pectoris Stenosis of left subclavian artery Anxiety and depression CKD (chronic kidney disease) DDD (degenerative disc disease) Marijuana use Narcolepsy Diabetic neuropathy Osteoarthritis Type 2 diabetes mellitus Lacunar infarct, acute Home Medications ?Medication ?Instructions ?Recorded ?Last Taken ?Type pregabalin 150 mg capsule 150 mg PO DAILY pain 6 10/12/20 22:00 History warfarin 1 mg tablet 2 mg PO DAILY 02/22/2410/30 History albuterol sulfate 90 mcg/actuation 2 puff inhalation Q 4 PRN wheezing 10/13/24 Unknown History aerosol inhaler Allergy/AdvReac Type Severity Reaction Status Date / Time Iodinated Contrast Media AdvReac Mild Vomiting Verified 11/02/24 14:50 (iodine contrast) metformin AdvReac Nausea/Vom/ Verified 11/02/24 14:50 Diarrhea Family History (Updated 10/13/24 @ 11:20 by Vida Gilmore LPN) Brother Cancer lung Son Cancer Surgical History (Updated 11/02/24 @ 14:57 by Maggie Armstrong) S/P percutaneous endoscopic gastrostomy (PEG) tube placement History of laryngoscopy History of cataract surgery History of colonoscopy History of cholecystectomy (~10/2020) History of left heart catheterization (11/13/04) History of angioplasty of peripheral vessel (09/2018) Social History Smoking Status: Former smoker quit date: 09/14/97 Tobacco: How many years used: 45 how long ago did patient quit smokin years ago alcohol intake: current alcohol intake frequency: 0-2 drinks per day Alcohol type: hard liquor substance use type: marijuana caffeine: Yes Type: carbonated beverages Number of servings: 1 Audit: Pertinent Findings Pertinent Findings EKG Perinent findings: January 11, 2024. Normal sinus rhythm. Stress test pertinent findings: 07/21/2022 ejection fraction 67%. No ischemia noted. No previous infarct is noted. Echo (EF%) pertinent findings: 07/21/2022. Ejection fraction 60%. No aortic stenosis is noted. Consult pertinent findings: August 29, 2024. [facility]. 1. Atherosclerotic coronary artery disease without angina-totally occluded right coronary arteries with [id number] collaterals. Mild LAD disease. Mild circumflex disease. Most recent stress test from 2021 was negative for ischemia. Stable at this time. Continue medical therapy. 2. Paroxysmal atrial fibrillation-patient has a history of A-fib. Currently in normal sinus rhythm. Continue warfarin. Recommendation Anesthesia Recommendation Anesthesia recommendation: OPTIMIZED for anesthesia
[2024-11-03 07:29] LABS: Platelet Count 146 K/mm3 (150-450)
[2024-11-03 08:27] LABS: International Normalized Ratio 1.2; Partial Thromboplast Time 27.1 Seconds (24.1-36.2); Prothrombin Time (Protime)PT. 14.9 SECONDS (11.7-14.9)
[2024-11-04] VITALS (10 sets, daily range): BP systolic 94–145; BP diastolic 48–57; PULSE 55–75; RESP 16–18; TEMP 35.8–36.3; O2SAT 94–100; BMI 23.8
--- NOTE | 2024-11-04 | ASPIG_PTH ---
PATIENT: TYRELL REYES LOC: EN U#:[id number] AGE/SX: 73/M ROOM: RE11/04/[address]: Dr. Terence Alba DO : 1950 BED: DIS: 11/04/2024 SPEC #: [id number] RECD: 11/04/24 12:50 STATUS: CAITLIN REPasquale #: [id number] MICHELLE: 11/04/24 00:[address]: Terence Alba DEPT: CYTOLOGY RECD BY: Cesar Brunson ENTERED: 11/04/24 12:52 SP TYPE: ASP OUT OTHR DR: Dr. Renzo Davidson DO Tissues: A - Lung, NOS B - Lung, NOS C - Lung, NOS D - Lung, NOS E - Lung, NOS F - Lung, NOS G - Lung, NOS H - Lung, NOS I - Lung, NOS J - Lung, NOS Procedures: FNA Specimen Adequacy Special Stain Group II Surgery Specimen Level IV Cytology Other HEADER OPERATION: Endobronchial ultrasound PRE-OP DIAGNOSIS: Mediastinal lymphadenopathy TISSUE SUBMITTED: Lala- EBUS DIAGNOSIS CYTOLOGY A. EBUS, TBNA, site 10 R #1 (smears): Negative for malignant cells. This specimen consists of respiratory epithelial cells and mucoid material. B. EBUS, TBNA, site 10 R #2 (smears): Paucicellular specimen. Rare respiratory epithelial cells are noted. Negative for malignant cells. C. EBUS, TBNA, site 10 R #3 (smears): Negative for malignant cells. This specimen consists of respiratory epithelial cells and mucoid material. D. EBUS, TBNA, site 11 R #4 (smears): Negative for malignant cells. Respiratory epithelial cells are noted. E. EBUS, TBNA, site 11 R #5 (smears): Negative for malignant cells. Respiratory epithelial cells are noted. F. EBUS, TBNA, site 11 L #6 (smears): Negative for malignant cells. Respiratory epithelial cells are noted. G. EBUS, TBNA, site 11 L #7 (smears): Negative for malignant cells. Respiratory epithelial cells are noted. A few lymphocytes are noted. H. EBUS, TBNA, site 10R fluid (cytospins and cellblock): Paucicellular specimen. Negative for malignant cells. The specimen consists of rare respiratory epithelial cells. I. EBUS, TBNA, site 11 R fluid (cytospins and cellblock): Negative for malignant cells. See cytology study. J. EBUS, TBNA, site 11 L fluid (cytospins and cellblock): Negative for malignant cells. See cytology study. See comment. 11/07/2024 COMMENT Please make reference to previous specimen [id number] epiglottis mass, biopsy with diagnosis of invasive moderately differentiated squamous cell carcinoma. Correlation with clinical, radiologic findings and appropriate follow up are necessary. CYTOLOGY STUDY Slides are reviewed. I. The specimen consists of respiratory epithelial cells, macrophages with anthracotic pigment and a few lymphocytes. J. The specimen consists of respiratory epithelial cells, macrophages with anthracotic pigment and a few lymphocytes. A fragment of hyaline cartilage is also noted. CYTOLOGY GROSS A. Received labeled with the patient's name and and designated EBUS, TBNA, site 10 R #1. The specimen consists of two stained smears. B. Received labeled with the patient's name and and designated EBUS, TBNA, site 10 R #2. The specimen consists of two stained smears. C. Received labeled with the patient's name and and designated EBUS, TBNA, site 10 R #3. The specimen consists of two stained smears. D. Received labeled with the patient's name and and designated EBUS, TBNA, site 11 R #4. The specimen consists of two stained smears. E. Received labeled with the patient's name and and designated EBUS, TBNA, site 11 R #5. The specimen consists of two stained smears. F. Received labeled with the patient's name and and designated EBUS, TBNA, site 11 L #6. The specimen consists of two stained smears. G. Received labeled with the patient's name and and designated EBUS, TBNA, site 11 L #7. The specimen consists of two stained smears. H. Received in RPMI is 20 ml of pink, needle rinsed fluid labeled with the patient's name and and designated EBUS, TBNA, site 10 R. The specimen is submitted for cell block preparation. I. Received in RPMI is 20 ml of pink, needle rinsed fluid labeled with the patient's name and and designated EBUS, TBNA, site 11 R. The specimen is submitted for cell block preparation. J. Received in RPMI is 20 ml of pink, needle rinsed fluid labeled with the patient's name and and designated EBUS, TBNA, site 11 L. The specimen is submitted for cell block preparation. [email or web address] 11/04/2024 TC:[id number]
[2024-11-04 10:11] LABS: INR Fingerstick 1.1; Prothrombin Time Fingerstick 13.3 SEC (11.7-14.9)
--- NOTE | 2024-11-04 10:43 | PRE.ANES_ITS ---
ASA Classification* ASA Classification ASA Classification: 3 Assessment & Plan Anesthesia* Anesthesia Assessment Anesthesia Assessment: Discussed sedation and/or anesthesia options, risks, benefits, and alternatives with patient/parents/legal guardian/POA. Questions invited. The patient/parents/legal guardian/POA seems to understand and agrees to proceed with anesthesia plan. Reviewed the physical assessment, medical history, allergy history and patient home medications list prior to surgery/procedure/anesthetic and documented any changes. Performed airway and anesthesia risk assessments. Anesthesia Type Anesthesia Type: MAC History Source History Obtained from:: Patient, Chart and Significant Other (spouse) Anesthesia Focused Assessment* Temperature: 97.4 F Pulse Rate: 75 Blood Pressure: 145/55 Respiratory Rate: 16 Pulse Ox: 100 Oxygen Delivery Method: Room Air Airway Assessment Mouth opens: >3 cm Mallampati Score: II Teeth Condition: Dentures Neck Range of motion (ROM): Limited ROM Focused Labs Anesthesia Preop lab: CBC WBC 4.8 K/mm3 (4.4-11.0) 11/03/24 06:57 11/03/24 RBC 3.58 M/mm3 (4.6-6.2) L 11/03/24 06:57 11/03/24 Hgb 11.2 g/dL (13.0-16.5) L 11/03/24 06:57 5 Hct 34.4 % (40-54) L 11/03/24 06:57 11/03/24 Plt Count 144 K/mm3 (150-450) L 11/03/24 06:57 11/03/24 CHEMISTRY Potassium 4.3 mmol/L (3.5-5.1) 11/03/24 06:57 11/03/24 Sodium 139 mmol/L (136-145) 11/03/24 06:57 11/03/24 Magnesium 1.5 mg/dL (1.6-2.6) L 10/17/20 05:40 10/17/20 Phosphorus 4.2 mg/dL (2.5-4.9) 11/03/24 06:57 11/03/24 BUN 45 mg/dL (7-18) H 11/03/24 06:57 11/03/24 Creatinine 1.58 mg/dL (0.70-1.30) H 11/03/24 06:57 Glucose 90 mg/dL (74-106) 11/03/24 06:57 11/03/24 POC Glucose 153 mg/dL (74-106) H 02/25/24 06:38 02/25/24 TSH 1.470 uIU/mL (0.358-3.740) 08/12/24 06:33 1106/07 COAG PT 14.9 SECONDS (11.7-14.9) 11/03/24 06:56 Pre-Assessment Diagnosis/Proposed Procedure Planned Operative Procedure(s): Endobronchial Ultrasound Anesthesia History Anesthesia History - tire stripper: Anesthesia History - tire stripper Hx Hospitalization No 11/02/24 14:57 Any Problems With Anesthesia No 11/02/24 14:57 Cholinesterase deficiency No 11/02/24 14:57 You/Your Family Experience No 11/02/24 14:57 fever (hyperthermia) with Relationship Recent Exposure to Contagious No 11/04/24 10:30 Disease Does patient have nerve No 11/02/24 14:57 stimulator Patient instructed to have device shut off --Does patient have Pacemaker No 11/04/24 10:30 or ICD? When Was Last Pacemaker Check QUESTION #4 FULL TEXT: You/Your Family Experience fever (hyperthermia) with Anesthesia Last Oral Intake Last Oral intake: Last Oral Intake NPO since 23:00 11/04/24 10:30 Meds taken in AM with sips of water? Meds patient instructed to take am of surgery PONV PONV - tire stripper: PONV - tire stripper Female No 11/02/24 14:57 HX of Motion Sickness No 11/02/24 14:57 HX of N/V After Surgery No 11/02/24 14:57 Non-Smoker Yes 11/02/24 14:57 Duration of Surgery greater No 11/02/24 14:57 than 60 minutes Number of Risk Factors 1 11/02/24 14:57 PONV Score Low Risk 11/02/24 14:57 Height & Weight Height & Weight: Anesthesia: Height & Weight Height 5 ft 7 in 11/04/24 10:30 Weight: 69.1 kg 11/04/24 10:30 Body Mass Index (BMI) 23.8 11/04/24 10:30 Respiratory Assessment Respiratory Assessment - tire stripper: Respiratory Tract Infection Hx - tire stripper Hx Respiratory Tract Infection No 11/02/24 14:57 STOP Sleep Apnea STOP Sleep Apnea - tire stripper: STOP Sleep Apnea - tire stripper Hx Hypertension Yes 11/02/24 14:57 Hx Sleep Apnea Yes 11/02/24 14:57 CPAP Yes: NONCOMPLIANT 11/02/24 14:57 BIPAP No 11/02/24 14:57 Do you snore loudly (louder than talking or can be heard Do you often feel tired/ fatigued/ sleepy during daytime? Has anyone observed you stop breathing during sleep? STOP Results Positive 11/02/24 14:57 QUESTION #5 FULL TEXT : Do you snore loudly (louder than talking or can be heard through closed doors)? Tobacco Use History Tobacco Use History - tire stripper: Tobacco Use History - tire stripper Tobacco Use Smoking Status Former smoker 11/02/24 14:57 Hx Tobacco Use Yes 11/02/24 14:57 Years Smoking Packs Smoked per Day Smoking Cessation Date was No - quit smoking greater 11/02/24 14:57 within the last 15 years than 15 years ago Hx Smoking Cessation Date 09/14/97 11/02/24 14:57 Hx Smoking Cessation No 11/02/24 14:57 Counseling Hematologic Medial History Hematologic Hx - tire stripper: Hematologic Medical Hx - gear lapper Hx of Blood Transfusion No 11/02/24 14:57 Hx of Transfusion in last 3 No 11/02/24 14:57 Months Date of Last Transfusion (if within last 3 months) Ever experience any problems No 11/02/24 14:57 with transfusion(s)? Specify any problems Hx of Preganancy in last 3 N/A 11/02/24 14:57 Months Nurse Filling Out Transfusion VCHRISTIN 11/02/24 14:57 & Questions: Date: 11/02/24 11/02/24 14:57 Time: 14:59 11/02/24 14:57 Patient unable to answer at this time (ie. confused, unrespo /Reproduction History /Reproductive History - tire stripper: /Reproductive Hx- tire stripper Hx Now No 11/02/24 14:57 Gestational Age (in weeks): EDC: Hx Hx Para Hx Section SAB No 11/02/24 14:57 [facility] Medical History CPAP (continuous positive airway pressure) dependence Cancer Macular degeneration of right eye Carcinoma of epiglottis Smoker Wears hearing aid Wears dentures Alcohol use Ambulates with cane Neuropathy Back pain Blackout Difficulty swallowing Former smoker Shortness of breath on exertion Leg cramps History of edema Stroke/cerebrovascular accident History of atrial fibrillation History of echocardiogram History of stress test Cardiology follow-up encounter Chronic diastolic (congestive) heart failure Hypertension Acute on chronic diastolic (congestive) heart failure History of non-ST elevation myocardial infarction (NSTEMI) (11/02/19) Upper GI bleed (11/02/19) Paroxysmal atrial fibrillation History of CVA (cerebrovascular accident) (10/2015) Chronic renal failure Claudication Peripheral vascular occlusive disease Hyperlipidemia Atherosclerosis of coronary artery of [place] heart without angina pectoris Stenosis of left subclavian artery Anxiety and depression CKD (chronic kidney disease) DDD (degenerative disc disease) Marijuana use Narcolepsy Diabetic neuropathy Osteoarthritis Type 2 diabetes mellitus Lacunar infarct, acute Home Medications ?Medication ?Instructions ?Recorded ?Last Taken ?Type pregabalin 150 mg capsule 150 mg PO DAILY pain 6 10/12/20 22:00 History warfarin 1 mg tablet 2 mg PO DAILY 02/22/2410/30 History albuterol sulfate 90 mcg/actuation 2 puff inhalation Q 4 PRN wheezing 10/13/24 Unknown History aerosol inhaler Allergy/AdvReac Type Severity Reaction Status Date / Time Iodinated Contrast Media AdvReac Mild Vomiting Verified 11/04/24 10:29 (iodine contrast) metformin AdvReac Nausea/Vom/ Verified 11/04/24 10:29 Diarrhea Family History Brother Cancer lung Son Cancer Surgical History S/P percutaneous endoscopic gastrostomy (PEG) tube placement History of laryngoscopy History of cataract surgery History of colonoscopy History of cholecystectomy (~10/2020) History of left heart catheterization (11/13/04) History of angioplasty of peripheral vessel (09/2018) Social History Smoking Status: Former smoker quit date: 09/14/97 Tobacco: How many years used: 45 how long ago did patient quit smokin years ago alcohol intake: current alcohol intake frequency: 0-2 drinks per day Alcohol type: hard liquor substance use type: marijuana caffeine: Yes Type: carbonated beverages Number of servings: 1 Review of Systems (Anesthesia) ROS Narrative System reviewed and no additional complaints, except as documented.
[2024-11-04] MEDS: Lidocaine Jelly 2% 20 ML Syringe (URO-JET) 1 APPLIC (11:11)
[2024-11-04 11:16] LABS: Bedside Glucose 79 mg/dL (74-106)
--- NOTE | 2024-11-04 11:54 | OP.BRONCH_ITS ---
Patient Name: Fidel Arita Procedure Date: 11/04/2024 10:39 AM Date of : 1950 Age: 73 Procedure: Bronchoscopy Indications: Mediastinal adenopathy Providers: Terence Alba MD Referring MD: Terence Alba MD Medicines: See the Anesthesia note for documentation of the administered medications Complications: No immediate complications Procedure: Pre-Anesthesia Assessment: - A History and Physical has been performed. Patient meds and allergies have been reviewed. The risks and benefits of the procedure and the sedation options and risks were discussed with the patient. All questions were answered and informed consent was obtained. Patient identification and proposed procedure were verified prior to the procedure by the physician and the nurse in the procedure room. Mental Status Examination: alert and oriented. Airway Examination: normal oropharyngeal airway. Respiratory Examination: poor air movement. CV Examination: normal. ASA Grade Assessment: II - A patient with mild systemic disease. After reviewing the risks and benefits, the patient was deemed in satisfactory condition to undergo the procedure. The anesthesia plan was to use general anesthesia. Immediately prior to administration of medications, the patient was re-assessed for adequacy to receive sedatives. The heart rate, respiratory rate, oxygen saturations, blood pressure, adequacy of pulmonary ventilation, and response to care were monitored throughout the procedure. The physical status of the patient was re-assessed after the procedure. After I obtained informed consent, the scope was passed under direct vision. Throughout the procedure, the patient's blood pressure, pulse, and oxygen saturations were monitored continuously. The bronchoscope was introduced through the mouth, via the endotracheal tube and advanced to the tracheobronchial tree. The ultrasound bronchoscope was introduced through the mouth, via the endotracheal tube and advanced to the tracheobronchial tree. The procedure was accomplished without difficulty. The patient tolerated the procedure well. Findings: The laryngeal mask airway is in good position. The vocal cords appear normal. The subglottic space is normal. The trachea is of normal caliber. The fredy is sharp. The tracheobronchial tree was examined to at least the first subsegmental level. Bronchial mucosa and anatomy are normal; there are no endobronchial lesions. Scant bilateral mucoid secretions were noted. The scope was withdrawn and replaced with the EBUS bronchoscope to accomplish the ultrasound examination. Lymph Nodes: An endobronchial ultrasound endoscope was utilized to systematically examine the right hilar region (level 10R), right superior interlobar region (level 11Rs) and left interlobar region (level 11L) in order to assist with guiding the biopsy needle. Lymph node sizing was performed via endobronchial ultrasound. Sampling by transbronchial needle aspiration was also performed using an Olympus ViziShot 2 21 gauge needle in the right hilar region (level 10R), right superior interlobar region (level 11Rs) and left interlobar region (level 11L) and sent for routine cytology. - The 10R (hilar) node was evaluated. Three samples with the needle were obtained. - The 11Rs (superior interlobar) node was evaluated. Two samples with the needle were obtained. - The 11L (interlobar) node was evaluated. Two samples with the needle were obtained. Impression: - Mediastinal adenopathy - The airway examination was normal. - Endobronchial ultrasound was performed. - Lymph node sampling was performed. Recommendation: - Await biopsy results. Procedure Code(s): --- Professional --- 51905, Bronchoscopy, rigid or flexible, including fluoroscopic guidance, when performed; with endobronchial ultrasound (EBUS) guided transtracheal and/or transbronchial sampling (eg, aspiration[s]/biopsy[ies]), 3 or more mediastinal and/or hilar lymph node stations or structures Diagnosis Code(s): --- Professional --- R59.0, Localized enlarged lymph nodes R09.89, Other specified symptoms and signs involving the circulatory and respiratory systems CPT copyright 2021 [employer]. All rights reserved. The codes documented in this report are preliminary and upon optimization manager review may be revised to meet current compliance requirements. DO Terence Mora MD 11/04/2024 11:53:11 AM This report has been signed electronically. Number of Addenda: 0 Note Initiated On: 11/04/2024 10:39 AM
--- NOTE | 2024-11-04 11:57 | PCM.POST.ANE ---
Anesthesia: Postop Eval I Current Vital Signs Temperature: 96.5 F Pulse Rate: 55 Blood Pressure: 94/51 Respiratory Rate: 18 Pulse Ox: 97 Assessment Airway patent: Yes Spontaneous unlabored respirations: Yes nausea: No Vomiting: No Anesthesia Complication: No Fluid Hydration Crystalloid volume administer (ml): 0 Total IV fluid infused: 0 Progress Note Anesthesia document: Postop Eval 1 completed: Yes
--- NOTE | 2024-11-04 13:03 | POSTOPAN2_ITS ---
Anesthesia Postop Eval I Sum Postop Eval Completion status Anesthesia document: Postop Eval 1 completed: Yes Anesthesia Postop Eval I Summary Anesthesia Postop Eval I Summary: Anesthesia Postop Eval I: Assessment Summary Airway patent Yes 11/04/24 13:02 HYDRATION PLANT OPERATOR.CSIR Spontaneous unlabored Yes 11/04/24 13:02 HYDRATION PLANT OPERATOR.CSIR respirations Mental status nausea No 11/04/24 13:02 HYDRATION PLANT OPERATOR.CSIR Vomiting No 11/04/24 13:02 HYDRATION PLANT OPERATOR.CSIR Anesthesia Postop Eval I: Fluid Summary Crystalloid volume administer 0 11/04/24 13:02 HYDRATION PLANT OPERATOR.CSIR (ml) Colloids volume administered ( ml) Blood Product volume administered (ml) Total IV fluid infused 0 11/04/24 13:02 HYDRATION PLANT OPERATOR.CSIR Anesthesia Postop Eval I: Summary Notes Anesthesia Complication No 11/04/24 13:02 HYDRATION PLANT OPERATOR.CSIR Anesthesia Complication Comment: Post-operative progress note Anesthesia: Postop Eval II Evaluation Mental status: Awake Pain Level: 0 nausea: No Vomiting: No
--- NOTE | 2024-11-04 13:03 | PCM.POSTANE2 ---
Anesthesia Postop Eval I Sum Postop Eval Completion status Anesthesia document: Postop Eval 1 completed: Yes Anesthesia Postop Eval I Summary Anesthesia Postop Eval I Summary: Anesthesia Postop Eval I: Assessment Summary Airway patent Yes 11/04/24 13:02 SMOKING TOBACCO PACKER HAND.CSIR Spontaneous unlabored Yes 11/04/24 13:02 SMOKING TOBACCO PACKER HAND.CSIR respirations Mental status nausea No 11/04/24 13:02 SMOKING TOBACCO PACKER HAND.CSIR Vomiting No 11/04/24 13:02 SMOKING TOBACCO PACKER HAND.CSIR Anesthesia Postop Eval I: Fluid Summary Crystalloid volume administer 0 11/04/24 13:02 SMOKING TOBACCO PACKER HAND.CSIR (ml) Colloids volume administered ( ml) Blood Product volume administered (ml) Total IV fluid infused 0 11/04/24 13:02 SMOKING TOBACCO PACKER HAND.CSIR Anesthesia Postop Eval I: Summary Notes Anesthesia Complication No 11/04/24 13:02 SMOKING TOBACCO PACKER HAND.CSIR Anesthesia Complication Comment: Post-operative progress note Anesthesia: Postop Eval II Evaluation Mental status: Awake Pain Level: 0 nausea: No Vomiting: No
== END 2024-11-04 12:59 | disposition home or self-care (01) ==
LOC: EN 10:02 → AC 10:04
PROVIDERS: PCP Student in an Organized Health Care Education/Training Program; Referring Provider Internal Medicine Critical Care Medicine; Visit Provider Internal Medicine Critical Care Medicine
PROC: BB4BZZZ Ultrasonography of Pleura (ICD-10-PCS; CPT 31653; principal; 2024-11-04 10:30)
DX: R59.0 Localized enlarged lymph nodes (principal); I50.32 Chronic diastolic (congestive) heart failure; I13.0 Hypertensive heart and chronic kidney disease with heart failure and stage 1 through stage 4 chronic kidney disease, or unspecified chronic kidney disease; I48.0 Paroxysmal atrial fibrillation; E11.40 Type 2 diabetes mellitus with diabetic neuropathy, unspecified; E11.22 Type 2 diabetes mellitus with diabetic chronic kidney disease; N18.32 Chronic kidney disease, stage 3b; I25.10 Atherosclerotic heart disease of native coronary artery without angina pectoris; Z87.891 Personal history of nicotine dependence; E78.5 Hyperlipidemia, unspecified; Z79.01 Long term (current) use of anticoagulants; E55.9 Vitamin D deficiency, unspecified
CPT/HCPCS: 31653; 36415; 36416; 80069; 82306; 82570; 82962; 83970; 84156; 85027; 85049; 85610; 85730; 88161; 88172; 88305; 88313; A4216; J2405

== ENCOUNTER → 2024-11-15 | Outpatient (CLI) | payer MEDICARE, OTHER, SELFPAY ==
[2024-11-15 10:52] LABS: Hematocrit 31.9 % (40-54); Hemoglobin 10.7 g/dL (13.0-16.5); Mean Corp Hgb Conc 33.5 g/dL (32-36); Mean Corpuscular Hgb 32.3 pg (27.0-32.0); Mean Corpuscular Volume 96.4 fL (80-94); Mean Platelet Vol. 10.2 fl (6.2-12.0); Platelet Count 187 K/mm3 (150-450); RBC Distribution Width CV 13.7 % (11.6-14.6); RBC Distribution Width SD 48.3 fl (35.1-43.9); Red Blood Count 3.31 M/mm3 (4.6-6.2); White Blood Count 5.2 K/mm3 (4.4-11.0)
[2024-11-15 19:36] LABS: Microalbumin,Random Urine 49.2 mg/L (NO RANGE EST.)
[2024-11-15 20:13] LABS: ALB/GLOB Ratio 1.1 RATIO (0.9-2.4); AST(SGOT) 24 U/L (<=37); Alanine Aminotransfer ALT/SGPT 19 U/L (<=46); Albumin, Serum 3.9 g/dL (3.4-4.8); Alkaline Phosphatase 93 U/L (40-129); Anion Gap 12 (5-15); BUN 46 mg/dL (4-19); BUN/Creat Ratio 29.7 RATIO (10-20); Bilirubin, Direct 0.14 mg/dL (0.00-0.30); Calcium,Total 9.5 mg/dL (7.6-11.0); Carbon Dioxide 27.5 mmol/L (21.0-32.0); Chloride 101 mmol/L (98-108); Cholesterol 150 mg/dL (<=200); Creatinine, Serum 1.54 mg/dL (0.70-1.20); EST Glomerular Filtration Rate 47 (>60); Globulin 3.6 g/dL (2.2-4.2); Glucose 104 mg/dL (70-99); High Density Lipoprotein 37 mg/dL; Low Density Lipoprotein Calc. 72 mg/dL; Potassium 4.5 mmol/L (3.3-5.1); Protein, Total 7.5 g/dL (5.9-8.4); Sodium Level 140 mmol/L (133-145); Total Bilirubin 0.26 mg/dL (0.00-1.30); Triglycerides 201 mg/dL; Very Low Density Lipoprotein 40 mg/dL (5-40); cholesterol:hdl ratio screen 4.01
== END | disposition home or self-care (01) ==
LOC: LAB 10:24
PROVIDERS: PCP Student in an Organized Health Care Education/Training Program; Referring Provider Student in an Organized Health Care Education/Training Program; Visit Provider Student in an Organized Health Care Education/Training Program
DX: E11.22 Type 2 diabetes mellitus with diabetic chronic kidney disease (principal); N18.9 Chronic kidney disease, unspecified; Z13.6 Encounter for screening for cardiovascular disorders; R53.83 Other fatigue
CPT/HCPCS: 36415; 80061; 80069; 82043; 82247; 82248; 82306; 82570; 84075; 84155; 84439; 84443; 84450; 84460; 85027

== ENCOUNTER 2025-02-13 13:10 | Outpatient (RCR) | payer MEDICARE, OTHER, SELFPAY ==
[2025-02-13 13:26] LABS: INR Fingerstick 3.4; Prothrombin Time Fingerstick 34.4 SEC (11.7-14.9)
== END 2025-02-13 18:00 | disposition home or self-care (01) ==
LOC: LAB 13:10
PROVIDERS: PCP Student in an Organized Health Care Education/Training Program; Referring Provider Internal Medicine Cardiovascular Disease; Visit Provider Internal Medicine Cardiovascular Disease
DX: I48.0 Paroxysmal atrial fibrillation (principal); Z79.01 Long term (current) use of anticoagulants
CPT/HCPCS: 36416; 85610

== ENCOUNTER → 2025-02-13 | Outpatient (CLI) | payer MEDICARE, OTHER, SELFPAY ==
--- NOTE | 2025-02-13 13:29 | CT_ITS ---
PROCEDURE: SOFT TISSUE NECK WITH CONTRAST 02/13/2025 REASON FOR EXAM: H N CANCER, TREATED TECHNIQUE: CT of the soft tissues of the neck from the orbits to the upper mediastinum with intravenous contrast. CONTRAST: Isovue-350 VOLUME: 100 mL Gauge IV One or more dose reduction techniques were used (e.g., Automated exposure control, adjustment of the mA and/or kV according to patient size, use of iterative reconstruction technique). RADIATION DOSE SUMMARY: CTDlvol: 10.06 mGy DLP: 359 mGycm COMPARISON: Not provided at the time of interpretation. FINDINGS: Bilateral calcified atheromatous plaques of the carotid arteries. Mild emphysema. Bilateral apical pleural parenchymal thickening. Moderate diffuse spondylosis. Endovascular stent is noted at the origin of the left subclavian artery. Calcified atheromatous plaques of the carotid arteries. Mild diffuse thickening of the submandibular fat, probably secondary to prior treatment. 4 mm left thyroid lobe nodule. Mild chronic mucosal inflammatory changes of the left ethmoid air cells. Normal bilateral parotid glands. Normal bilateral migratory game bird biologist spaces. Normal bilateral parapharyngeal spaces. Normal bilateral carotid spaces. Normal bilateral sublingual and submandibular glands. Normal sublingual and submandibular spaces. Normal visualized nasopharynx. Normal retropharyngeal space. Normal perivertebral space. Normal visualized bilateral faucial tonsils. The visualized tongue, tongue base and oropharynx are normal. The visualized cervical lymph nodes (levels I-) are within normal size limits, and maintain normal morphology. There is no demonstrated solid or cystic mass lesion. There is no abnormal contrast enhancement. Normal epiglottis, bilateral vallecula and hypopharynx. The pre-epiglottic and paraglottic adipose spaces are normal. Normal visualized bilateral piriform sinuses, aryepiglottic folds, vocal cords, and arytenoid-cricoid articulations. Normal subglottic trachea. Normal remaining bilateral lobes of the thyroid gland. Normal remaining visualized paranasal sinuses. CT/Soft Tissue Neck WITH Contrast IMPRESSION: 1. No residual or recurrent mass lesion is identified. 2. 3. Bilateral calcified atheromatous plaques of the carotid arteries. 4. Mild emphysema. 5. Bilateral apical pleural parenchymal thickening. 6. Moderate diffuse spondylosis. 7. Endovascular stent is noted at the origin of the left subclavian artery. 8. Calcified atheromatous plaques of the carotid arteries. 9. Mild diffuse thickening of the submandibular fat, probably secondary to prio r treatment. 10. 4 mm left thyroid lobe nodule. 11. Mild chronic mucosal inflammatory changes of the left ethmoid air cells. Reading Location: [facility] [id number]
--- NOTE | 2025-02-13 13:29 | CT_ITS ---
PROCEDURE: CHEST WITH CONTRAST 02/13/2025 REASON FOR EXAM: H N CANCER, IMAGING TECHNIQUE: Prone and supine chest CT with intravenous contrast, high resolution CT (HRCT) protocol. Coronal and Sagittal reconstruction series were provided. CONTRAST: Isovue-350 VOLUME: 100 mL Gauge IV One or more dose reduction techniques were used (e.g., Automated exposure control, adjustment of the mA and/or kV according to patient size, use of iterative reconstruction technique). RADIATION DOSE SUMMARY: CTDlvol: 10.06 mGy DLP: 985 mGycm COMPARISON: No prior imaging is provided at the time of interpretation. FINDINGS: Bilateral apical pleural-parenchymal thickening. Mild bilateral basilar interstitial pulmonary thickening. 4 mm nodule in the right middle lobe. Percutaneous gastrostomy tube is in good position. Cholelithiasis without acute cholecystitis. 4.5 cm left renal simple cyst. Moderate coronary artery calcifications. Normal enhancement of the main pulmonary artery and right and left pulmonary arteries. Normal enhancement of the bilateral peripheral pulmonary arteries. There is no demonstrated pulmonary embolism. Mild atheromatous plaques of the thoracic aorta and visualized great vessels. There is no demonstrated aortic dissection. Normal heart and pericardium. Normal mediastinum. Normal hilar regions. Normal visualized trachea and bronchi. Normal pleura. Normal remaining visualized upper abdomen. CT/Chest WITH Contrast IMPRESSION: Coronary artery calcification (CAC) is is present Bilateral apical pleural-parenchymal thickening. Mild bilateral basilar interstitial pulmonary thickening. 4 mm nodule in the right middle lobe. Correlation with prior imaging is helpfu l. Otherwise six-month follow-up exam is suggested. Percutaneous gastrostomy tube is in good position. Cholelithiasis without acute cholecystitis. 4.5 cm left renal simple cyst. Moderate coronary artery calcifications. Reading Location: [place] [address]
[2025-02-13 13:59] LABS: CREATININE FINGERSTICK < 1.0 mg/dL (0.70-1.30); EGFR FINGERSTICK > 60.0000 mL/min (>60)
== END | disposition home or self-care (01) ==
LOC: CT 13:27
PROVIDERS: PCP Student in an Organized Health Care Education/Training Program; Referring Provider Student in an Organized Health Care Education/Training Program; Visit Provider Student in an Organized Health Care Education/Training Program
DX: Z01.812 Encounter for preprocedural laboratory examination (principal); C32.1 Malignant neoplasm of supraglottis; R59.0 Localized enlarged lymph nodes
CPT/HCPCS: 70491; 71260; Q9967

== ENCOUNTER → 2025-03-22 | Outpatient (CLI) | payer MEDICARE, OTHER, SELFPAY ==
--- NOTE | 2025-03-22 15:45 | SP.MBSS_ITS ---
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 04/01/2024: received definitive radiation therapy consisting of 6996 cGy delivered to the gross disease within the larynx and bilateral adenopathy, 5940 cGy delivered to the entire remaining larynx and bilateral neck and 5412 cGy to the high level 2 bilaterally and bilateral supraclavicular fossa all in 33 fractions?He was treated 6 fractions per week because he was not a candidate for chemotherapy.? Currently, he is undergoing work up for lung nodule w/ bronchoscopy and biopsy planned later this month. Dysphagia History secondary to SCC of supraglottic larynx: BSE with ASSISTED SALES REPRESENTATIVE 02/11/24 revealed mild oropharyngeal dysphagia and recommended Regular textures / Thin liquids with compensatory strategies to decrease risk for aspiration. ASSISTED SALES REPRESENTATIVE recommended MBSS prior to radiation treatment to further assess swallow function and aspiration risk. MBSS 02/15/24 revealed mild oral dysphagia, moderate pharyngoesophageal dysphagia and recommended the following: ?Diet: Regular Textures and Thin Liquids; Comment: STOP food/drink and resume later if concern for reflux, retention, or regurgitation, and resume food/drink at a later time. Compensatory Strategies: Small Bites, Small Sips (Cough and re-swallow after every 1-2 sips), Slow Rate, Sitting upright and Remain sitting upright for 60 minutes after PO intake.? He followed w/ OP ST during and following radiation treatment to manage his dysphagia. FEES completed 05/28/2024 due to difficulty resuming an oral diet following treatment. FEES revealed mild oral dysphagia, moderate-severe pharyngeal dysphagia w/ moderate-severe edema of the oropharynx, hypopharynx, and larynx. FEES recommended thin liquids w/ use of compensatory strategies. Since FEES study, he continued to follow w/ ST and advanced to puree w/ some soft solids / thin liquids; however, due to significant silent aspiration w/ pudding MBSS 06/2024, he resumed a full thin liquid diet. Re- evaluation via MBSS 10/21/2024 revealed severe oropharyngeal dysphagia and recommended participation in the [facility] ([facility]), an intensive exercise program to manage dysphagia. In 3 weeks, he advanced from full thin liquid diet to regular textures / thin liquids w/ PEG tube still needed as the primary means for meeting nutritional and caloric needs. ~1 month after intensive treatment ended, swallow function began to worsen. ENT recommended full liquid diet and he was referred to GI and underwent 3 dilations, most recent 03/06/2025. He now returns for MBSS today to re-evaluate swallow function w/ plan to resume MDTP. Currently, pt is consuming thin liquids w/ small amounts of Ritz crackers. He has moderate xerostomia and dysgeusia. He is utilizing PEG tube to meet nutritional/caloric needs. Dysphagia History prior to SCC of supraglottic larynx: Hx of MBSS in 2014, which revealed mild pharyngoesophageal dysphagia. No follow up dysphagia therapy was completed. Over the years, he has felt that food/pills get caught in his throat. At times, he must ?bring food back up to get it back down.? Other PMH: CHF, Carcinoma of epiglottis, Smoker, Wears hearing aid and dentures, Alcohol use, Neuropathy, Difficulty swallowing, Sleep apnea, Shortness of breath on exertion, A fib, Hx of CVA (10/2015), HTN, NSTEMI, Upper GI bleed, Chronic renal failure, HLD, Atherosclerosis of coronary artery of [place] heart without angina pectoris, Stenosis of left subclavian artery, CKD, DDD, Marijuana use, Diabetic neuropathy, Osteoarthritis, DM type 2, See EMR for full PMH). Current Diet Ordered: Thin liquids, occ soft solids (Ritz) Dentition: Edentulous Mental Status: WNL Respiratory Status: Oxygenating on Room Air Penetration-Aspiration Scale Penetration-Aspiration Scale: OBJECTIVE ASSESSMENT OF SWALLOW FUNCTION (QUANTITATIVE ? PER TRIAL): PENETRATION / ASPIRATION SCALE (BURRELL): 1 = does not enter airway 2 = enters airway/above vocal folds/ejected 3 = enters airway/above vocal folds/not ejected 4 = enters airway/contacts vocal folds/ejected 5 = enters airway/contacts vocal folds/not ejected 6 = enters airway/below vocal folds/ejected 7 = enters airway/below vocal folds/not ejected despite effort 8 = enters airway/below vocal folds/no effort VIDEOFLOROSCOPIC SCALE SCORE (BURRELL): Grade I = aspiration of material that has penetrated into the laryngeal vestibule, intact cough reflex Grade II = aspiration < 10 % of the bolus, intact cough reflex Grade III = aspiration of < 10 % of the bolus, reduced cough reflex or aspiration of > 10 % of the bolus, intact cough reflex Grade IV = aspiration of > 10 % of the bolus, reduced cough reflex Penetration-Aspiration Scale Score Thin Liquid 5mL : Result: 2= enter airway/above vocal folds/ejected Thin Liquid 5mL Trial 2: Result: 7= enters airways/below vocal folds/not ejected despite effort Thin Liquid 10mL: Result: 7= enters airways/below vocal folds/not ejected despite effort [place]/Mildly Thick Liquid 5mL: Result: 5= enters airways/contacts vocal folds/not ejected [place]/Mildly Thick Liquid 5mL Trial 2: Result: 5= enters airways/contacts vocal folds/not ejected Comment: Post prandial aspiration of previous trial observed at the start of this trial. [place]/Mildly Thick Liquid 10mL: Result: 5= enters airways/contacts vocal folds/not ejected [place]/Mildly Thick Liquid 10mL Trial 2: Result: 3= enters airways/above vocal folds/not ejected Pudding 5mL: Result: 2= enter airway/above vocal folds/ejected Comment: Esophageal screen - Minimal retention in the lower esophagus. Oral Phase Labial Seal: No Labial Escape Tongue Control During Bolus Hold: Posterior escape of greater than half of bolus Bolus Transport/Lingual Motion: Repetitive/disorganized tongue motion Oral Residue: Residue collection on oral structures Pharyngeal Phase Initiation of Pharyngeal Swallow: Bolus head at posterior laryngeal surgace of epiglottis Soft Palate Elevation: Trace column of contrast/air between soft palate and pharyngeal wall Laryngeal Elevation: Partial superior movement thyroid cart/partial apprx aryt- epig petiole Anterior Hyoid Excursion: Partial anterior movement Epiglottic Movement: Partial inversion Laryngeal Vestibule Closure at Height of Swallow: Incomplete; narrow column of air/contrast in laryngeal vestibule Pharyngeal Stripping Wave: Present - diminished Pharyngoesophageal Segment Opening: Minimal distension and minimal duration; marked obstruction of flow Tongue Base Retraction: Wide column of contrast between tongue base & post. pharyngeal wall Pharyngeal Residue: Majority of contrast within or on pharyngeal structures (~2/3 of pudding remained after multiple swallows) Esophageal Phase Esophageal Clearance: Esophageal retention (trace barium in the UES and lower esophagus) Diagnosis/Impression Diagnosis: Severe oropharyngeal dysphagia R13.12 Impression: The oral phase is primarily marked by... -Did not assess mastication of cookie due to decreased pharyngeal clearance of pudding. -Decreased bolus control w/ premature posterior loss of >1/2 of the bolus to the posterior surface of the epiglottis prior to swallow onset. -Repetitive tongue motion for A-P transport. The pharyngeal phase is primarily marked by... -Large, anterior bony protrusions C2-4 known to pt and ASSISTED SALES REPRESENTATIVE from previous MBSS. These cervical osteophytes continue to negatively impact swallow function via obstruction of epiglottic inversion and decreased pharyngeal motility. -Decreased pharyngeal motility due to decreased TB retraction, pharyngeal stripping wave, and UES opening/duration. -Aspiration of 5mL of thin liquids, 10mL of thin liquids, and post prandial aspiration of 5mL of mildly/nectar thick liquids w/ reflexive cough observed w/ all aspiration. Reflexive throat clearing demonstrated throughout the eval uation, as well. Recommendations Diet: Thin Liquids Compensatory Strategies: Small Sips (Cough and re-swallow each sip, Hard swallows), Slow Rate, Multiple Swallows and Sitting upright Recommend Repeat Modified Barium Swallow: Yes (Following completion of 3 weeks of MDTP) Need for Skilled Speech Therapy Services: Yes Comment: Will recommend return to OP ST to resume MDTP to address ongoing severe oropharyngeal dysphagia. Education Completed: 1. Described result of evaluation., 2. Pt understands evaluation & agrees with goals and treatment plan. and 4. Family/caregivers understand evaluation & agree w/ goals & tx plan. Comment: ASSISTED SALES REPRESENTATIVE discussed w/ Dr. Lizama the pt's large cervical osteophyte, which is a barrier to epiglottic inversion and negatively impacts pharyngeal motility. ASSISTED SALES REPRESENTATIVE inquired if the pt would be a surgical candidate for management of osteophyte. Dr. Lizama will reach out to discuss w/ the patient's ENT, Dr. Sanchez. Unfortunately, the osteophyte is located in the radiation field from previous treatment per Dr. Lizama, so that may impact his candidacy for surgical intervention. Status Active ST Patient: Active Contact Information [facility] Speech Therapy:: Betsy Nguyen M.A. [facility]-ASSISTED SALES REPRESENTATIVE? Speech-Language Pathologist?? [facility] [address] [place] [address]? [email or web address]?? [phone]
== END | disposition home or self-care (01) ==
LOC: RAD 13:22
PROVIDERS: PCP Student in an Organized Health Care Education/Training Program; Referring Provider Student in an Organized Health Care Education/Training Program; Visit Provider Student in an Organized Health Care Education/Training Program
DX: R13.10 Dysphagia, unspecified (principal); C32.1 Malignant neoplasm of supraglottis
CPT/HCPCS: 74230; 92611

== ENCOUNTER 2025-03-31 10:44 | Outpatient (RCR) | payer MEDICARE, OTHER, SELFPAY ==
[2025-03-22 12:59] LABS: INR Fingerstick 5.8
[2025-03-22 13:37] LABS: Prothrombin Time (Protime)PT. 43.4 SECONDS (11.7-14.9)
[2025-03-24 06:36] LABS: INR Fingerstick 3.6
[2025-03-31 10:53] LABS: INR Fingerstick 2.9
== END 2025-04-13 21:31 | disposition home or self-care (01) ==
LOC: LAB 10:44
PROVIDERS: PCP Student in an Organized Health Care Education/Training Program; Referring Provider Internal Medicine Cardiovascular Disease; Visit Provider Internal Medicine Cardiovascular Disease
DX: Z79.01 Long term (current) use of anticoagulants; N18.30 Chronic kidney disease, stage 3 unspecified; E11.22 Type 2 diabetes mellitus with diabetic chronic kidney disease; Z12.5 Encounter for screening for malignant neoplasm of prostate
CPT/HCPCS: 36416; 85610

== ENCOUNTER → 2025-04-20 | Outpatient (CLI) | payer MEDICARE, OTHER, SELFPAY ==
--- NOTE | 2025-04-20 09:37 | ST.MBS ---
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 04/01/2024: received definitive radiation therapy consisting of 6996 cGy delivered to the gross disease within the larynx and bilateral adenopathy, 5940 cGy delivered to the entire remaining larynx and bilateral neck and 5412 cGy to the high level 2 bilaterally and bilateral supraclavicular fossa all in 33 fractions?He was treated 6 fractions per week because he was not a candidate for chemotherapy.? Currently, he is undergoing work up for lung nodule w/ bronchoscopy and biopsy planned later this month. Dysphagia History secondary to SCC of supraglottic larynx: BSE with [facility] PRES[employer] 02/11/24 revealed mild oropharyngeal dysphagia and recommended Regular textures / Thin liquids with compensatory strategies to decrease risk for aspiration. [employer] PRES[employer] recommended MBSS prior to radiation treatment to further assess swallow function and aspiration risk. MBSS 02/15/24 revealed mild oral dysphagia, moderate pharyngoesophageal dysphagia and recommended the following: ?Diet: Regular Textures and Thin Liquids; Comment: STOP food/drink and resume later if concern for reflux, retention, or regurgitation, and resume food/drink at a later time. Compensatory Strategies: Small Bites, Small Sips (Cough and re-swallow after every 1-2 sips), Slow Rate, Sitting upright and Remain sitting upright for 60 minutes after PO intake.? He followed w/ OP ST during and following radiation treatment to manage his dysphagia. FEES completed 05/28/2024 due to difficulty resuming an oral diet following treatment. FEES revealed mild oral dysphagia, moderate-severe pharyngeal dysphagia w/ moderate-severe edema of the oropharynx, hypopharynx, and larynx. FEES recommended thin liquids w/ use of compensatory strategies. Since FEES study, he continued to follow w/ ST and advanced to puree w/ some soft solids / thin liquids; however, due to significant silent aspiration w/ pudding MBSS 06/2024, he resumed a full thin liquid diet. Re-evaluation via MBSS 10/21/2024 revealed severe oropharyngeal dysphagia and recommended participation in the [facility] ([facility]), an intensive exercise program to manage dysphagia. In 3 weeks, he advanced from full thin liquid diet to regular textures / thin liquids w/ PEG tube still needed as the primary means for meeting nutritional and caloric needs. ~1 month after intensive treatment ended, swallow function began to worsen. ENT recommended full liquid diet and he was referred to GI and underwent 3 dilations, most recent 03/06/2025. MBSS 03/22/2025 revealed severe oropharyngeal dysphagia and recommended thin liquids w/ recommendation to resume MDTP for 3 weeks and return for this repeat MBSS afterwards. During the past 3 weeks, the patient advanced his diet to soft solids / thin liquids and he is requiring 1 less carton of supplement via his PEG tube, while still maintaining his weight. Dysphagia History prior to SCC of supraglottic larynx: Hx of MBSS in 2014, which revealed mild pharyngoesophageal dysphagia. No follow up dysphagia therapy was completed. Over the years, he has felt that food/pills get caught in his throat. At times, he must ?bring food back up to get it back down.? Other PMH: CHF, Carcinoma of epiglottis, Smoker, Wears hearing aid and dentures, Alcohol use, Neuropathy, Difficulty swallowing, Sleep apnea, Shortness of breath on exertion, A fib, Hx of CVA (10/2015), HTN, NSTEMI, Upper GI bleed, Chronic renal failure, HLD, Atherosclerosis of coronary artery of [place] heart without angina pectoris, Stenosis of left subclavian artery, CKD, DDD, Marijuana use, Diabetic neuropathy, Osteoarthritis, DM type 2, See EMR for full PMH). Current Diet Ordered: Soft solids / Thin liquids Mental Status: WNL Respiratory Status: Oxygenating on Room Air Penetration-Aspiration Scale Penetration-Aspiration Scale: OBJECTIVE ASSESSMENT OF SWALLOW FUNCTION (QUANTITATIVE ? PER TRIAL): PENETRATION / ASPIRATION SCALE (BURRELL): 1 = does not enter airway 2 = enters airway/above vocal folds/ejected 3 = enters airway/above vocal folds/not ejected 4 = enters airway/contacts vocal folds/ejected 5 = enters airway/contacts vocal folds/not ejected 6 = enters airway/below vocal folds/ejected 7 = enters airway/below vocal folds/not ejected despite effort 8 = enters airway/below vocal folds/no effort VIDEOFLOROSCOPIC SCALE SCORE (BURRELL): Grade I = aspiration of material that has penetrated into the laryngeal vestibule, intact cough reflex Grade II = aspiration < 10 % of the bolus, intact cough reflex Grade III = aspiration of < 10 % of the bolus, reduced cough reflex or aspiration of > 10 % of the bolus, intact cough reflex Grade IV = aspiration of > 10 % of the bolus, reduced cough reflex Penetration-Aspiration Scale Score Thin Liquid 5mL : Result: 5= enters airways/contacts vocal folds/not ejected Thin Liquid 5mL Trial 2: Result: 3= enters airways/above vocal folds/not ejected Thin Liquid 10mL: Result: 5= enters airways/contacts vocal folds/not ejected Thin Liquid 10mL Trial 2: Result: 5= enters airways/contacts vocal folds/not ejected Comment: Post prandial aspiration of residues of previous trials w/ reflexive cough [place]ild[place] Thick Liquid 5mL: Result: 3= enters airways/above vocal folds/not ejected [place]ild[place] Thick Liquid 5mL Trial 2: Result: 7= enters airways/below vocal folds/not ejected despite effort [place]ild[place] Thick Liquid 10mL: Result: 3= enters airways/above vocal folds/not ejected [place]ild[place] Thick Liquid 10mL Trial 2: Result: 3= enters airways/above vocal folds/not ejected Pudding 10mL: Result: 1= does not enter airway 1/2 Cookie: Result: 3= enters airways/above vocal folds/not ejected [place]/Mildly Thick Liquid 10mL Trial 3: Result: 7= enters airways/below vocal folds/not ejected despite effort Oral Phase Labial Seal: No Labial Escape Tongue Control During Bolus Hold: Posterior escape of greater than half of bolus Bolus Preparation/Mastication: Slow prolonged chewing/mashing with complete recollection Bolus Transport/Lingual Motion: Repetitive/disorganized tongue motion Oral Residue: Residue collection on oral structures Pharyngeal Phase Initiation of Pharyngeal Swallow: Bolus head at posterior laryngeal surgace of epiglottis Soft Palate Elevation: Trace column of contrast/air between soft palate and pharyngeal wall Laryngeal Elevation: Partial superior movement thyroid cart/partial apprx aryt-epig petiole Anterior Hyoid Excursion: Partial anterior movement Epiglottic Movement: Partial inversion Laryngeal Vestibule Closure at Height of Swallow: Incomplete; narrow column of air/contrast in laryngeal vestibule Pharyngeal Stripping Wave: Present - diminished Pharyngoesophageal Segment Opening: Minimal distension and minimal duration; marked obstruction of flow Tongue Base Retraction: Wide column of contrast between tongue base & post. pharyngeal wall Pharyngeal Residue: Majority of contrast within or on pharyngeal structures Diagnosis/Impression Diagnosis: Moderate-severe oropharyngeal dysphagia R13.12 .: Image 1: Image on left is pharyngeal clearance of pudding through the UES on today's study as compared to pharyngeal clearance of pudding from MBSS on 03/22/2025 (Image on the right). MBS Impressions: The oral phase is primarily marked by... -Decreased bolus control w/ premature posterior loss of >1/2 of the bolus to the vallecula and posterior surface of the epiglottis prior to swallow onset. -Repetitive tongue motion for A-P transport. -Slowed, but complete mastication of cookie. The pharyngeal phase is primarily marked by... -Large, anterior bony protrusions C2-4 known to pt and [employer] PRESIDENT from previous MBSS. These cervical osteophytes continue to negatively impact swallow function via obstruction of epiglottic inversion and decreased pharyngeal motility. -Decreased pharyngeal motility due to decreased TB retraction, pharyngeal stripping wave, and UES opening/duration; however, pharyngeal clearance of pudding showed good improvement from previous MBSS on 03/22/2025 (See images above). -Aspiration of 10mL of thin liquids (post prandial), 5mL of mildly/nectar thick liquids w/ reflexive cough observed w/ all aspiration. Deep laryngeal penetration of cookie residues to the vocal folds w/ liquid wash of mildly/nectar thick liquids. [employer] PRES[employer] recommends the patient does NOT utilize liquid wash to decrease risk for choking and aspiration. Soft solids are recommended by themselves w/ use of multiple, hard swallows each bite. Of note, in addition to improvements in pharyngeal clearance of pudding on this MBSS, improvements in diet advancement in the past 3 weeks, and decreased dependence of PEG tube; the patient also has made improvements in socialization related to eating. For the first time in 14 months, the patient ate at a restaurant w/ his , and he participated in a dinner at home w/ his extended family. Recommendations Diet: Easy to Chew Textures and Thin Liquids Comment: Continue to utilize 3-4 PEG cartons per day to maintain nutritional and caloric needs Compensatory Strategies: Small Bites (CONSUME SOLIDS BY THEMSELVES, NO LIQUID WASH, MULTIPLE HARD SWALLOWS, COUGH AND EXPECTORATE RESIDUES WHEN DONE PRIOR TO CONSUMING LIQUIDS, CHEW THOROUGHLY, DO NOT ATTEMPT TO SWALLOW IF UNABLE TO CHEW THOROUGHLY), Small Sips (CONSUME LIQUIDS BY THEMSELVES AND W/ GOOD ORAL CARE, MULTIPLE HARD SWALLOWS, COUGH AND RE-SWALLOW NEEDED), Slow Rate, Sitting upright and Remain sitting upright for 30 minutes after PO intake Supervision: Distant Supervision ( present for all food/drink) Recommend Repeat Modified Barium Swallow: Yes (Repeat MBSS in 6-12months to monitor risk for worsening dysphagia s/p radiation treatment for HNC. If worsening swallow function prior to 6mo, would consider repeat instrumental assessment sooner.) Need for Skilled Speech Therapy Services: Yes Comment: Discussed w/ patient that additional intensive treatment is warranted if pt is agreeable given diet advancements made these past 3 weeks. Pt politely declined continued MDTP at this time and wishes to work on swallow function at home. [employer] PRES[employer] recommended dysphagia treatment every 2 weeks to monitor diet tolerance, weight, and for continued education re: safe swallowing strategies to decrease risk for choking and aspiration. Please schedule sooner than 2 weeks if concern for poor diet tolerance. Education Completed: 1. Described result of evaluation. (Thorough education w/ pt and re: choking and aspiration risk, as well as education re: safe diet textures and strategies to decrease risk for choking and aspiration.), 2. Pt understands evaluation & agrees with goals and treatment plan., 4. Family/caregivers understand evaluation & agree w/ goals & tx plan. and 5. Patient demonstrates recommended strategies. Status Active ST Patient: Active Contact Information [facility] Speech Therapy:: Betsy Nguyen M.A. [facility] [employer]? Speech-Language Pathologist?? [facility] [address] [place] [address]? ?? [phone]
== END | disposition home or self-care (01) ==
LOC: RAD 08:27
PROVIDERS: PCP Student in an Organized Health Care Education/Training Program; Referring Provider Student in an Organized Health Care Education/Training Program; Visit Provider Student in an Organized Health Care Education/Training Program
DX: C32.1 Malignant neoplasm of supraglottis (principal)
CPT/HCPCS: 74230; 92611

== ENCOUNTER 2025-05-05 11:24 | Outpatient (RCR) | payer MEDICARE, OTHER, SELFPAY ==
[2025-05-05 12:08] LABS: Hematocrit 31.3 % (40-54); Hemoglobin 10.9 g/dL (13.0-16.5); Mean Corp Hgb Conc 34.8 g/dL (32-36); Mean Corpuscular Volume 95.1 fL (80-94); Mean Platelet Vol. 9.9 fl (6.2-12.0); Platelet Count 185 K/mm3 (150-450); RBC Distribution Width CV 12.5 % (11.6-14.6); RBC Distribution Width SD 43.3 fl (35.1-43.9); Red Blood Count 3.29 M/mm3 (4.6-6.2); White Blood Count 4.5 K/mm3 (4.4-11.0)
[2025-05-05 12:18] LABS: Prothrombin Time (Protime)PT. 31.6 SECONDS (11.7-14.9)
[2025-05-05 13:06] LABS: Albumin, Serum 3.8 g/dL (3.4-4.8); Anion Gap 9 (5-15); BUN 40 mg/dL (4-19); BUN/Creat Ratio 25.3 RATIO (10-20); Calcium,Total 9.3 mg/dL (7.6-11.0); Carbon Dioxide 27.7 mmol/L (21.0-32.0); Chloride 102 mmol/L (98-108); Glucose 78 mg/dL (70-99); Potassium 4.9 mmol/L (3.3-5.1)
[2025-05-05 13:34] LABS: Creatinine, Urine (random) 103.00 mg/dL (39.00-259.00); Protein, Urine (Random) 25.3 mg/dL (0.0-12.0); Protein:Creat Ratio 246 mg/g CRE (0-200)
== END 2025-05-05 18:00 | disposition home or self-care (01) ==
LOC: LAB 11:24
PROVIDERS: Internal Medicine Nephrology; PCP Student in an Organized Health Care Education/Training Program; Referring Provider Internal Medicine Cardiovascular Disease; Visit Provider Internal Medicine Cardiovascular Disease
DX: E11.22 Type 2 diabetes mellitus with diabetic chronic kidney disease (principal); N18.30 Chronic kidney disease, stage 3 unspecified; E11.29 Type 2 diabetes mellitus with other diabetic kidney complication; Z12.5 Encounter for screening for malignant neoplasm of prostate; Z79.01 Long term (current) use of anticoagulants
CPT/HCPCS: 36415; 80069; 82570; 84156; 85027; 85610

== ENCOUNTER → 2025-05-16 | Outpatient (CLI) | payer MEDICARE, OTHER, SELFPAY ==
--- NOTE | 2025-05-16 07:52 | CT_ITS ---
PROCEDURE: CHEST WITH CONTRAST 05/16/2025 REASON FOR EXAM: FOLLOW UP LUNG NODULES TECHNIQUE: Procedure Code: CTCHW Modality: CT Procedure: CHEST WITH CONTRAST Coronal and Sagittal reconstruction series were provided. CONTRAST: Isovue 370 VOLUME: 100 mL One or more dose reduction techniques were used (e.g., Automated exposure control, adjustment of the mA and/or kV according to patient size, use of iterative reconstruction technique). RADIATION DOSE SUMMARY: CTDlvol: 18.38 mGy DLP: 297.23 mGycm COMPARISON: CT chest with contrast, 02/13/2025 FINDINGS: PULMONARY NODULES: (Only nodules >3mm are reported) Lower neck:The thyroid gland is normal. There is no supraclavicular lymphadenopathy. Mediastinum:No abnormal masses or lymphadenopathy. Heart and Vasculature:The heart size is normal. There is no pericardial effusion. There is calcific vascular disease of the thoracic aorta and coronary arteries. There is a stent in the origin of the left subclavian artery. Esophagus:Normal. Upper Abdomen:The visualized abdominal aorta is heavily calcified. The gallbladder is shrunken and stone filled. There are multiple renal cysts bilaterally. There is moderate atrophy of the left kidney. There is a PEG tube. Chest wall:The soft tissues of the chest wall are unremarkable. There is no axillary lymphadenopathy. There are findings of DISH throughout the thoracic spine. Lungs, airways and pleura: There is stable pleural-parenchymal scarring in both lung apices. There is mild upper lobe predominant centrilobular emphysema. There is a stable 2 x 3 mm soft tissue density nodule in the upper lobe of the right lung (image 48). There is mild basilar predominant subpleural reticulation. There are no pleural effusions. CT/Chest WITH Contrast IMPRESSION: 1. Emphysema and basilar predominant chronic interstitial lung disease. 2. Stable right upper lobe pulmonary nodule. There are no new pulmonary nodul es. 3. Stable pleural-parenchymal scarring in both lung apices. 4. Calcific vascular disease. 5. Cholelithiasis with probable chronic cholecystitis. 6. Other findings as noted. No significant change. Recommendation: Follow-up low-dose chest CT in 12 months. Reading [id number]
== END | disposition home or self-care (01) ==
LOC: CT 07:51
PROVIDERS: PCP Student in an Organized Health Care Education/Training Program; Referring Provider Student in an Organized Health Care Education/Training Program; Visit Provider Student in an Organized Health Care Education/Training Program
DX: R91.8 Other nonspecific abnormal finding of lung field (principal)
CPT/HCPCS: 71260; Q9967

== ENCOUNTER 2025-05-20 11:13 | Inpatient (IN) | payer MEDICARE, OTHER, SELFPAY ==
[2025-05-20] VITALS (19 sets, daily range): BP systolic 73–140; BP diastolic 38–61; PULSE 85–105; RESP 16–89; TEMP 36.7–37.9; O2SAT 94–99; BMI 23.2; BMI 23.8
--- NOTE | 2025-05-20 11:28 | EKG12_ITS ---
Test Reason : FEVER Blood Pressure : */* mmHG Vent. Rate : 99 BPM Atrial Rate : 99 BPM P-R Int : 140 ms QRS Dur : 90 ms QT Int : 340 ms P-R-T Axes : 61 -29 59 degrees QTcB Int : 436 ms Normal sinus rhythm Normal ECG Confirmed by Renzo Almaguer ([id number]), editor map KATY AMES ([id number]) on 05/23/2025 5:46:01 AM Referred By: Confirmed By: Renzo Almaguer
--- OUTSIDE RECORDS SUMMARY | 2025-05-20 11:49 | XMS RPT_ITS | CCD ---
Author Organization [facility]ini[facility] Care Team Providers Care Radiology Tech Name Role Phone ERI Vinson, Lazara Mathew Unavailable UnavailDerrick Parry Attending Unavailable Branden Shannon Primary Care Unavailable Dr. Lexus Rivera Primary Care Provider [phone] Dr. Lexus Rivera Referring Provider [phone] SUSANNA Ruggiero NP Attending Provider [phone] Dr. Lexus Rivera Primary Care Provider 1([facility]) Dr. Lexus Rivera Referring Provider 1([facility])2014 FRANCOISE Davenport NPC Jolynn Attending Provider Dr. Lexus Rivera Primary Care Provider [phone] Dr. Lexus Rivera Referring Provider [phone] FRANCOISE Daven[place] NPC Jolynn Attending Provider Dr. Zhang Quick Attending Provider [phone] Dr. Lexus Rivera Primary Care Provider 1([facility]) Dr. Lexus Rivera Referring Provider 1([facility])2014 SUSANNA Davenport NP Attending Provider Dr. Lexus Rivera Primary Care Provider [phone] Dr. Lexus Rivera Referring Provider [phone] Dr. Zhang Quick Attending Provider [phone] LEXUS RIVERA DO Primary Care Physician ([facility]) Dr. Lexus Rivera Primary Care Provider Dr. Lexus Rivera Referring Provider 1([facility])[phone] FRANCOISE Davenport NPC Jolynn Attending Provider LEXUS RIVERA DO Attending Unavailable LEXUS RIVERA DO Primary Care Unavailable NICOLE RIOS LEXUS Attending Unavailable NICOLE DO, LEXUS Primary Care Unavailable HALKO DO, LEXUS Attending Unavailable NICOLE DO, LEXUS Primary Care Unavailable NICOLE DO, LEXUS Attending Unavailable NICOLE RIOS, LEXUS Primary Care Unavailable Dr. Lexus Rivera Primary Care Provider Dr. Lexus Rivera Referring Provider Issac RODRÍGUEZ, RADIAL DRILL OPERATOR FOR PLASTIC-C Jolynn Attending Provider Dr. Yohana Cook Attending Provider Dr. Elton Sanchez Referring Provider Nicole RIOS, Dr. Muller Primary Care Provider Dr. Zhang Quick MD Attending Provider Dr. Zhang Quick MD Referring Provider Dr. Rianna Barnhart MD Other Provider Nicole RIOS, Dr. Muller Referring Provider Payal Morton Attending Provider Dr. Riki Lizama DO Attending Provider Dr. Riki Lizama DO Referring Provider Dr. Terence Alba DO Attending Provider Dr. Terence Alba DO Referring Provider Dr. Terence Alba DO Other Provider Dr. Lexus Rivera DO Attending Provider Colten RODRÍGUEZ-CAlexus Attending Provider Dr. Lexus Rivera DO Primary Care Provider Dr. Riki Lizama DO Attending Provider Dr. Riki Lizama DO Referring Provider Dr. Terence Alba DO Attending Provider Dr. Terence Alba DO Referring Provider Dr. Zhang Quick MD Attending Provider Dr. Aguilar Quick MDril Referring Provider Obey OSCAR, Dr. Blanca Other Provider Nicole RIOS, Dr. Muller Referring Provider Nicole RIOS, Dr. Muller Primary Care Provider Parth RIOS, Dr. Pratt Attending Provider Nicole RIOS, Dr. Muller Primary Care Provider Parth RIOS, Dr. Partt Attending Provider Parth DO, Dr. Pratt Referring Provider Dl RIOS, Dr. Lyn Attending Provider Dl RIOS, Dr. Lyn Referring Provider Jolynn Benoit Attending Provider Nicole RIOS, Dr. Muller Primary Care Provider Abdelrahman OSCAR, Dr. Holcomb Attending Provider Abdelrahman OSCAR, Dr. Holcomb Referring Provider Obey OSCAR, Dr. Blanca Other Provider Nicole RIOS, Dr. Muller Primary Care Provider Dl RIOS, Dr. Lyn Attending Provider Dl RIOS, Dr. Lyn Referring Provider Nicole RIOS, Dr. Muller Referring Provider Nicole RIOS, Dr. Muller Attending Provider NICOLE DO, LEXUS Attending Unavailable HALKO DO, LEXUS Primary Care Unavailable HALKO DO, LEXUS Primary Care Unavailable HALKO DO, LEXUS Attending Unavailable HALKO DO, LEXUS Attending Unavailable HALKO DO, LEXUS Primary Care Unavailable HALKO DO, LEXUS Primary Care Unavailable MERY OSCAR, DR MARTINEZ Attending Unavailrupal ORDONEZ MD, DR MARTINEZ Attending Unavailabl e NICOLE DO, LEXUS Primary Care Unavailable NICOLE DO, LEXUS Primary Care Unavailable MERY OSCAR, DR MARTINEZ Attending Unavailabl e NICOLE RIOS, LEXUS Primary Care Unavailable MERY OSCAR, DR MARTINEZ Attending Unavailabl e Halko, Lexus Primary Care Unavailable Brown, Terence Referring Unavailable BrownLitzyk Attending Unavailable Halko, Lexus Primary Care Unavailable DlRiki Attending Unavailable Halko, Lexus Referring Unavailable Halko, Lexus Primary Care Unavailable Jolynn Davenport NP Attending Unavailable Halko, Lexus Referring Unavailable Halko, Lexus Primary Care Unavailable Payal Morton Attending Unavail able Halko, Lexus Primary Care Unavailable Obey, Jayaprakas Consulting Unavailable Abdelrahman, [place] Referring Unavailable Abdelrahman, [place] Attending Unavailable Halko, Lexus Primary Care Unavailable DlJose gomeze Attending Unavailable Halko, Lexus Primary Care Unavailable Obey, Jayaprakas Consulting Unavailable Abdelrahman, Zhang Referring Unavailable Abdelrahman, Zhang Attending Unavailable Halko, Lexus Referring Unavailable Halko, Lexus Attending Unavailable Halko, Lexus Primary Care Unavailable Halko, Lexus Primary Care Unavailable BrownTerence Referring Unavailable Terence Alba Attending Unavailable Halko, Lexus Referring Unavailable Halko, Lexus Primary Care Unavailable Riki Lizama Attending Unavailable Jose Lizamae Attending Unavailable Halko, Lexus Primary Care Unavailable Dl, Riki Referring Unavailable DlJosee Attending Unavailable Halko, Lexus Primary Care Unavailable Dl, Riki Referring Unavailable Halko, Lexus Primary Care Unavailable Obey, Jayaprakas Consulting Unavailable Abdelrahman, [place] Attending Unavailable Abdelrahman, Zhang Referring Unavailable Halko, Lexus Primary Care Unavailable Terence Alba Consulting Unavailable Terence Alba Attending Unavailable Halko, Lexus Referring Unavailable Halko, Lexus Primary Care Unavailable Jose Lizamae Attending Unavailable Halko, Lexus Referring Unavailable Halko, Lexus Primary Care Unavailable Jolynn Davenport NP Attending Unavailable DlRiki gomez Attending Unavailable Halko, Lexus Referring Unavailable Halko, Lexus Primary Care Unavailable Jose Lizamae Attending Unavailable Halko, Lexus Primary Care Unavailable Dl, Riki Referring Unavailable Halko, Lexus Primary Care Unavailable Obey, Jayaprakas Consulting Unavailable Abdelrahman, Zhang Referring Unavailable Abdelrahman, [place] Attending Unavailable Halko, Lexus Primary Care Unavailable Obey, Jayaprakas Consulting Unavailable Abdelrahman, Zhang Referring Unavailable Abdelrahman, Zhang Attending Unavailable Halko, Lexus Primary Care Unavailable Dl, Riki Referring Unavailable Dl, Riki Attending Unavailable Halko, Lexus Attending Unavailable Halko, Lexus Primary Care Unavailable Halko, Lexus Referring Unavailable Halko, Lexus Primary Care Unavailable Brown, Terence Attending Unavailable Alexus Abel Attending Unavailable Halko, Lexus Referring Unavailable Halko, Lexus Primary Care Unavailable Riki Lizama Attending Unavailable Halko, Lexus Primary Care Unavailable Davis Ordonez Attending Unavailable Jabour, Davis Referring Unavailable Halko, Lexus Primary Care Unavailable Obey, Jayaprakas Consulting Unavailable Abdelrahman, Zhang Referring Unavailable Abdelrahman, Zhang Attending Unavailable Halko, Lexus Primary Care Unavailable DlJosee Attending Unavailable Halko, Lexus Primary Care Unavailable Dl, Riki Referring Unavailable Halko, Lexus Primary Care Unavailable Brown, Terenec Attending Unavailable Brown, Terence Referring Unavailable Halko, Lexus Primary Care Unavailable Obey, Jayaprakas Consulting Unavailable Abdelrahman, [place] Referring Unavailable Abdelrahman, Zhang Attending Unavailable Dl, Riki Attending Unavailable Halko, Lexus Primary Care Unavailable Dl, Riki Referring Unavailable Halko, Lexus Referring Unavailable Halko, Lexus Attending Unavailable Halko, Lexus Primary Care Unavailable Halko, Lexus Primary Care Unavailable Obey, Jayaprakas Consulting Unavailable Abdelrahman, [place] Referring Unavailable Abdelrahman, [place] Attending Unavailable Dl, Riki Attending Unavailable Halko, Lexus Primary Care Unavailable Dl, Riki Referring Unavailable Halko, Lexus Primary Care Unavailable Brown, Terence Referring Unavailable Brown, Terence Attending Unavailable Halko, Lexus Primary Care Unavailable Obey, Jayaprakas Consulting Unavailable Abdelrahman, Zhang Referring Unavailable Abdelrahman, Zhang Attending Unavailable Halko, Lexus Primary Care Unavailable Brown, Terence Referring Unavailable Brown, Terence Consulting Unavailable Brown, Terence Attending Unavailable Halko, Lexus Attending Unavailable Halko, Lexus Primary Care Unavailable Allergies Allergy Classification Reported Allergen(s) Allergy Type Date of Onset Reaction(s) Facility (20 sources) metFORMIN; Translations: [metformin] Drug Allergy 02-23-20 21 Nausea/Vom/Gilda rrhea, dairrhea [facility] (9 sources) Triiodobenzoic Acids Propensity to adverse reactions 11-26-19 Vomiting [facility] Comment on above: diarrhea, N/V, chill s (1 source) metFORMIN Drug Allergy 03-02-20 [facility] (1 source) Iodinated Contrast Media Drug allergy (disorder) 03-02-20 [facility] Medications Current Medications Medication Drug Class(es) Dates Sig (Normalized) Sig (Original) acetaminophen 325 mg / HYDROcodone bitartrate 5 mg oral tablet (20 sources) Opioid Agonist Start: 04-04-2025 End: 05-04-2025 take 1 tablet by mouth once daily as needed for pain Climax 325- 5 mg oral tablet Dose = 1 tab(s), Oral, qDay, PRN pain, fill on or after 04/04/2025, # 20 tab(s), 0 Refill(s), Pharmacy: [facility], DDD (degenerative disc disease), lumbar, 170.2, cm, 04/04/25 11:00:00 EDT, Height, 67.9, kg, 04/04/25 11:00:00 EDT, Dosing Weight Start Date: 04/04/25 Stop Date: 05/04/25 Status: Ordered Medication Dispense Status: Completed Quantity: 20.0 Unit: tab(s) Total Allowed Fills: 1 Fills Dispensed: 0 Indications: Other intervertebral disc degeneration, lumbar region without mention of lumbar back pain or lower extremity pain; Start: 03-09-2024 End: 04-25-2024 Hydrocodone-Acetaminophen 5- 325 mg tablet Discontinued 1 {tbl} PO EVERY 6 HOURS as needed 0 March 09, 2024 12:00am April 25, 2024 10:37am Start: 07-28-2023 End: 08-27-2023 take 1 tablet by mouth every six hours as needed for pain Climax 325- 5 mg oral tablet Dose = 1 tab(s), Oral, q6h, PRN for pain, to be filled on or after 07/28/2023; oarrs reviewed and appropriate, # 20 tab(s), 0 Refill(s), Pharmacy: [facility], Chronic low back pain, 175, cm, 07/28/23 10:21:00 EST, Height, 90.5, kg, 07/28/23 10:21:00 EST, Dosing Weight Start Date: 07/28/23 Stop Date: 08/27/23 Status: Ordered Start: 11-26-2022 End: 12-26-2022 take 1 tablet by mouth every six hours as needed for pain Climax 325- 5 mg oral tablet Dose = 1 tab(s), Oral, q6h, PRN for pain, to be filled on or after 11/26/2022; oarrs reviewed and appropriate, # 20 tab(s), 0 Refill(s), Pharmacy: [id number], Chronic low back pain, 170.2, cm, 11/26/22 9:25:00 EDT, Height, 90.3, kg, 11/26/22 9:25:00 EDT, Dosing Weight Start Date: 11/26/22 Stop Date: 12/26/22 Status: Ordered Start: 07-09-2022 End: 02-27-2024 Hydrocodone-Acetaminophen 5- 325 mg tablet Discontinued 1 {tbl} PO AT BEDTIME as needed for pain 0 July 09, 2022 12:00am February 27, 2024 12:34pm Start: 07-09-2022 take 1 tablet by yana th at bedtime Hydrocodone-Acetaminophen Active 1 TABLE T PO AT BEDTIME July 09, 2022 12:00am Start: 10-17-2020 End: 10-22-2020 Hydrocodone-Acetaminophen 1 TABLET tablet Discontinued 1 {tbl} PO EVERY 8 HOURS NEEDED as needed for Pain Score 4-10 15 5 0 October 17, 2020 October 21, 2020 1:00am October 22, 2020 1:03am Other acute postprocedural pain Start: 10-17-2020 End: 10-22-2020 take 1 tablet by mouth every eight hours as needed Hydrocodone-Acetaminophen Discontinued 1 TABLET PO EVERY 8 HOURS NEEDED 15 5 October 17, 2020 October 22, 2020 1:03am Start: 06-24-2019 End: 11-08-2019 Hydrocodone-Acetaminophen 5- 325 mg tablet Discontinued 1 {tbl} PO DAILY as needed for Pain Or Fever 0 June 24, 2019 12:00am November 08, 2019 5:43pm Start: 06-24-2019 End: 11-08-2019 take 1 tablet by mouth once daily Hydrocodone-Acetaminophen Discontinued 1 TABLET PO DAILY June 24, 2019 12:00am November 08, 2019 5:43pm Start: 06-05-2016 HYDROCODONE-AC ETAMINOPHEN 5-325 MG TABS 1 tablet by mouth as needed, takes rarely HYDROCODONE-ACETAMINOPHEN [id number] Jackie Valle RN Start: 03-27-2015 End: 05-07-2016 take 1-2 tablets by mouth every six hours as needed HYDROCODONE-ACETAMINOPHEN 5-325 MG TABS 1-2 tablets by mouth every 6 hours as needed HYDROCODONE-ACETAMINOPHEN [id number] Jackie Valle RN [id number] 200 actuat albuterol 0.09 mg/actuat metered dose inhaler (9 sources) beta2-Adrenergic Agonist Start: 10-13-2024 Albut daniel Sulfate 90 mcg/actuation HFA aerosol inhaler Active 2 NMA INHALATION EVERY 4 HOURS as needed for wheezing October 13, 2024 1:00am amitriptyline hydrochloride 10 mg oral tablet (2 sources) Tricyclic Antidepressant Start: 11-26-2022 amitr iptyline 10 mg oral tablet Dose : 10 mg = 1 tab(s), Oral, qHS, # 30 tab(s), 0 Refill(s), Pharmacy: [id number], 170.2, cm, 11/26/22 9:25:00 EDT, Height Start Date: 11/26/22 Status: Ordered dapagliflozin 5 mg oral tablet (20 sources) Sodium-Glucose Cotransporter 2 Inhibitor Start: 06-19-2023 dapagliflozin 5 mg oral tablet Dose : 5 mg = 1 tab(s), Oral, qDay, new dose, # 90 tab(s), 3 Refill(s), Pharmacy: [facility], 170.5, cm, 06/02/23 9:59:00 EDT, Height, kg, 06/02/23 9:59:00 EDT, Dosing Weight Start Date: 06/19/23 Status: Ordered Start: 10-13-2022 End: 05-25-2024 take 1 tablet by mouth once daily Dapagliflozin Propanediol (Farxiga) 10 mg tablet Discontinued 10 mg PO DAILY October 13, 2022 1:00am May 25, 2024 9:21am DME MISCellaneous (1 source) Start: 09-17-2023 DME MISCellane ous See Instructions, dx I10; dispense one upper arm automated sphygmomanometer with supplies., # 1 EA, 0 Refill(s), Pharmacy: [id number], 172, cm, 08/25/23 9:41:00 EST, Height, 86.4, kg, 08/25/23 9:53:00 EST, Dosing Weight Start Date: 09/17/23 Status: Ordered Nebulizer (Compressor) (5 sources) Start: 06-22-2024 Nebulizer (Com pressor) See Instructions, dx J44.9 nebulizer with mask/pipe and tubing, # 1 EA, 0 Refill(s), Pharmacy: [id number], COPD mixed type, 171.8, cm, 06/21/24 10:20:00 EDT, Height, 72.7, kg, 06/21/24 10:20:00 EDT, Dosing Weight Start Date: 06/22/24 Status: Ordered Medication Dispense Status: Completed Quantity: 1.0 Unit: EA Total Allowed Fills: 1 Fills Dispensed: 0 Indications: Chronic obstructive pulmonary disease, unspecified; Start: 06-22-2024 Nebulizer (Com pressor) See Instructions, dx J44.9 nebulizer with mask/pipe and tubing, # 1 EA, 0 Refill(s), Pharmacy: [id number], COPD mixed type, 171.8, cm, 06/21/24 10:20:00 EDT, Height, 72.7, kg, 06/21/24 10:20:00 EDT, Dosing Weight Start Date: 06/22/24 Status: Ordered Quantity: 1.0 Unit: EA Repeat number: 1 Indications: Chronic obstructive pulmonary disease, unspecified; nitroglycerin 0.4 mg sublingual tablet (20 sources) Nitrate Vasodilator Start: 12-27-2024 nitroglyce rin 0.4 mg sublingual tablet 0.4 mg Dose = 1 tab(s), Sublingual, q5min, PRN for chest pain, # 25 tab(s), 0 Refill(s), Pharmacy: [facility], 170.2, cm, 12/27/24 9:11:00 EDT, Height, kg, 12/27/24 9:11:00 EDT, Dosing Weight Start Date: 12/27/24 Status: Ordered Medication Dispense Status: Completed Quantity: 25.0 Unit: tab(s) Total Allowed Fills: 1 Fills Dispensed: 0 Start: 10-13-2022 End: 05-25-2024 Nitroglycerin 0.4 mg tablet, sublingual Discontinued 0.4 mg SL Q5M as needed for chest pain 06 12October 13, 2022 1:00am May 25, 2024 9:21am do not exceed 3 doses per episode Start: 10-13-2022 Nitroglycerin Active 0.4 MG SL Q5M October 13, 2022 1:00am do not exceed 3 doses per episode Start: 03-27-2015 NITROGLYCERIN 0.4 MG SUBL 1 tablet under the tongue every 5 minutes times 3 as needed for chest pain. NITROGLYCERIN [id number] Charissa Lock RN pregabalin 150 mg oral capsule (20 sources) Start: 11-06-2015 End: 07-03-2025 take 1 capsule by mouth once daily Pregabalin 150 MG capsule Active 150 mg PO DAILY November 06, 2015 1:00am pain Start: 11-06-2015 End: 12-28-2023 take 150 mg by mouth twice daily Pregabalin Active 150 MG PO TWICE A DAY November 06, 2015 1:00am Start: 03-27-2015 take 1 tablet by yana th three times daily LYRICA 50 MG CAPS One tablet by mouth three times daily PREGABALIN [id number] Jackie Valle RN semaglutide 14 mg oral table t (20 sources) Start: 05-07-2023 End: 01-24-2024 Rybelsus 14 mg oral tablet D ose : 14 mg = 1 tab(s), Oral, qDay, take at least 30 minutes before first food, beverage, or other oral meds, # 90 tab(s), 1 Refill(s), Pharmacy: [facility], 175, cm, 07/28/23 10:21:00 EST, Height, kg, 07/28/23 10:21:00 EST, Dosing Weight Start Date: 07/28/23 Stop Date: 01/24/24 Status: Ordered Start: 01-28-2023 Rybelsus 7 mg oral tablet Dose : 7 mg = 1 tab(s), Oral, qDay, take at least 30 minutes before first food, beverage, or other oral meds, # 30 tab(s), 0 Refill(s), Pharmacy: [facility], 170.2, cm, 01/28/23 8:50:00 EDT, Height, kg, 01/28/23 8:50:00 EDT, Dosing Weight Start Date: 01/28/23 Status: Ordered Start: 02-22-2021 End: 02-03-2023 take 1 tablet by mouth once daily Semaglutide (Rybelsus) 3 mg tablet Discontinued 14 mg PO DAILY February 22, 2021 12:00am February 03, 2023 9:44am Vitamin D3 (3 sources) Start: 04-14-2019 Vitamin D3 Dos e : 2,000 unit(s) = 1 tab(s), Oral, Daily, 0 Refill(s) Start Date: 04/14/19 Status: Ordered warfarin sodium 2 mg oral tablet (20 sources) Vitamin K Antagonist Start: 11-01-2024 End: 10-27-2025 warfarin 2 mg oral tablet Dose : 2 mg = 1 tab(s), Oral, qDay, # 90 tab(s), 3 Refill(s), Pharmacy: [facility], 170, cm, 11/01/24 11:27:00 EST, Height, kg, 11/01/24 11:27:00 EST, Dosing Weight Start Date: 11/01/24 Stop Date: 10/27/25 Status: Ordered Medication Dispense Status: Completed Quantity: 90.0 Unit: tab(s) Total Allowed Fills: 4 Fills Dispensed: 0 Start: 11-01-2024 warfarin 1 mg oral tablet Dose : 1 mg = 1 tab(s), Oral, qDay, # 90 tab(s), 3 Refill(s), Pharmacy: [facility], 170, cm, 11/01/24 11:27:00 EST, Height, kg, 11/01/24 11:27:00 EST, Dosing Weight Start Date: 11/01/24 Status: Ordered Quantity: 90.0 Unit: tab(s) Repeat number: 4 Start: 02-22-2024 take 2 tablets by mo uth once daily Warfarin 1 mg tablet Active 2 mg PO DAILY February 22, 2024 12:00am Please contact the information source for Protocol details. Start: 09-22-2023 End: 11-02-2024 Warfarin 1 mg tablet Discont inued 0.5 mg PO SUSA February 22, 2024 12:00am November 02, 2024 3:52pm 0.5 mg orally daily; please give 90 pills as dose changes often.; Please contact the information source for Protocol details. Start: 09-22-2023 take 90 doses by yana th once daily Warfarin Active 0.5 MG PO .COMPLEX 90 September 22, 2023 3:54pm 0.5 mg orally daily; please give 90 pills as dose changes often.; Start: 08-25-2023 End: 08-19-2024 warfarin 2 mg oral tablet Do se : 2 mg = 1 tab(s), Oral, qDay, # 90 tab(s), 3 Refill(s), Pharmacy: [facility], 172, cm, 08/25/23 9:41:00 EST, Height, kg, 08/25/23 9:53:00 EST, Dosing Weight Start Date: 08/25/23 Stop Date: 08/19/24 Status: Ordered Start: 12-03-2021 End: 09-22-2023 take 1 tablet by mouth once daily Warfarin 1 mg tablet Discontinued 1 mg PO DAILY 90 January 26, 2023 12:01pm September 22, 2023 3:55pm Please contact the information source for Protocol details. Start: 09-20-2019 End: 12-03-2021 take 1 tablet by mouth once daily Warfarin (Coumadin) 2 mg tablet Discontinued 2 mg PO DAILY September 20, 2019 1:00am December 03, 2021 1:25pm Please contact the information source for Protocol details. Completed/Discontinued Medications Medication Drug Class(es) Dates Sig (Normalized) Sig (Original) albuterol 0.833 mg/ml / ipratropium bromide 0.167 mg/ml inhalation solution (5 sources) Anticholinergic, beta2-Adrenergic Agonist Start: 06-22-2024 End: 12-19-2024 take 1 dose by inhalation four times daily as needed for dyspnea albuterol-ipratrop ium 2.5 mg-0.5 mg/3 mL inhalation solution Dose = 3 mL, Inhalation, QID, PRN dyspnea, wheezing, # 360 mL, 5 Refill(s), Pharmacy: [id number], 171.8, cm, 06/21/24 10:20:00 EDT, Height, kg, 06/21/24 10:20:00 EDT, Dosing Weight Start Date: 06/22/24 Stop Date: 12/19/24 Status: Ordered Medication Dispense Status: Completed Quantity: 360.0 Unit: mL Total Allowed Fills: 6 Fills Dispensed: 0 alogliptin 12.5 mg oral tablet (20 sources) Start: 11-25-2019 End: 06-05-2020 take 1 tablet by mouth once daily Alogliptin 12.5 mg tablet Discontinued 12.5 mg PO DAILY November 25, 2019 12:00am June 05, 2020 8:55am amLODIPine 5 mg oral tablet (20 sources) Dihydropyridine Calcium Channel Carol Start: 12-24-2018 End: 11-08-2019 take 1 tablet by mouth once daily Amlodipine 5 mg tablet Discontinued 5 mg PO DAILY 90 90 0 December 24, 2018 12:00am November 08, 2019 5:40pm blood pressure Start: 10-31-2016 take 1 tablet by yana th once daily AMLODIPINE BESYLATE 5 MG TABS One tablet by mouth daily AMLODIPINE BESYLATE [id number] Lazara Vinson, ERI apixaban 5 mg oral tablet (20 sources) Factor Xa Inhibitor Start: 09-02-2019 End: 09-20-2019 take 1 tablet by mouth twice daily Apixaban 5 MG tablet Discontinued 5 mg PO TWICE A DAY 60 0 September 02, 2019 1:00am September 20, 2019 2:45pm aspirin 81 mg chewable tablet (20 sources) Nonsteroidal Anti-inflammatory Drug Start: 03-22-2020 End: 05-25-2024 take 1 tablet by mouth once daily Aspirin 81 MG tablet,chewable Discontinued 81 mg PO DAILY March 22, 2020 12:00am May 25, 2024 9:21am heart health Start: 11-11-2019 aspirin 81 mg oral delayed release tablet Dose : 81 mg = 1 tab(s), Oral, Daily, 0 Refill(s) Start Date: 11/11/19 Status: Ordered Start: 09-02-2019 End: 11-08-2019 take 1 tablet by mouth once daily Aspirin 81 MG tablet,chewable Discontinued 81 mg PO DAILY@0800 30 0 September 02, 2019 1:00am November 08, 2019 5:43pm Start: 06-24-2019 End: 09-02-2019 take 1 tablet by mouth once daily Aspirin 325 mg tablet Discontinued 325 mg PO DAILY June 24, 2019 12:00am September 02, 2019 12:16pm Start: 07-29-2016 End: 06-24-2019 take 1 tablet by mouth once daily Aspirin 81 MG tablet,chewable Discontinued 81 mg PO DAILY@0800 July 29, 2016 1:00am June 24, 2019 9:36am Start: 12-12-2010 End: 03-27-2015 take 1 tablet by mouth once daily ASPIRIN 81 MG TABS One tablet by mouth daily ASPIRIN [id number] Jackie Valle RN take 1 tablet by yana th once daily ASPIRIN 325 MG TABS One tablet by mouth daily ASPIRIN [id number] Buffy Espinoza atorvastatin 40 mg oral tablet (20 sources) HMG-CoA Reductase Inhibitor Start: 01-06-2022 End: 05-25-2024 take 1 tablet by mouth at bedtime Atorvastatin 40 mg tablet Discontinued 40 mg PO AT BEDTIME January 06, 2022 12:00am May 25, 2024 9:21am Start: 06-05-2020 End: 01-06-2022 take 2 tablets by mouth at bedtime Atorvastatin 20 mg tablet Discontinued 40 mg PO AT BEDTIME June 05, 2020 8:55am January 06, 2022 9:10am cholesterol Start: 06-05-2020 End: 01-06-2022 take 40 mg by mouth at bedtime Atorvastatin Discontinu ed 40 MG PO AT BEDTIME June 05, 2020 8:55am January 06, 2022 9:10am Start: 11-08-2019 End: 06-05-2020 take 1 tablet by mouth at bedtime Atorvastatin 20 mg tablet Discontinued 20 mg PO AT BEDTIME November 08, 2019 1:00am June 05, 2020 8:56am Start: 09-20-2019 End: 11-08-2019 take 1 tablet by mouth at bedtime Atorvastatin 40 mg tablet Discontinued 40 mg PO AT BEDTIME September 20, 2019 2:45pm November 08, 2019 5:41pm Start: 07-29-2016 End: 07-06-2018 take 1 tablet by mouth at bedtime Atorvastatin 80 MG tablet Discontinued 80 mg PO AT BEDTIME July 29, 2016 1:00am July 06, 2018 2:04pm Start: 03-28-2015 End: 09-20-2019 take 1 tablet by mouth at bedtime Atorvastatin 20 mg tablet Discontinued 20 mg PO AT BEDTIME 30 0 December 13, 2018 11:31am December 24, 2018 9:34am canagliflozin 100 mg oral tablet (20 sources) Sodium-Glucose Cotransporter 2 Inhibitor Start: 02-22-2021 End: 01-06-2022 take 1 tablet by mouth once daily Canagliflozin (Invokana) 100 mg tablet Discontinued 100 mg PO DAILY February 22, 2021 12:00am January 06, 2022 9:07am celecoxib 200 mg oral capsule (20 sources) Nonsteroidal Anti-inflammatory Drug Start: 07-29-2016 End: 06-24-2019 take 1 capsule by mouth twice daily Celecoxib 200 MG capsule Discontinued 200 mg PO TWICE A DAY July 29, 2016 1:00am June 24, 2019 9:38am cholecalciferol 0.05 mg oral tablet (20 sources) Vitamin D Start: 06-24-2019 End: 05-25-2024 take 1 tablet by mouth once daily Cholecalciferol (Vitamin D3) 2,000 unit tablet Discontinued 2000 U PO DAILY June 24, 2019 12:00am May 25, 2024 9:21am vitamin sugar-free cholestyramine resin 4000 mg powder for oral suspension (3 sources) Bile Acid Sequestrant Start: 06-19-2023 End: 07-19-2023 cholestyramine sugar-free 4 g/5 g oral powder for reconstitution 1 packet(s), Oral, BID, prn diarrhea, # 60 packet(s), 0 Refill(s), Pharmacy: [facility], 170.5, cm, 06/02/23 9:59:00 EDT, Height, kg, 06/02/23 9:59:00 EDT, Dosing Weight Start Date: 06/19/23 Stop Date: 07/19/23 Status: Ordered SOD PICOSULFATE-MAG OX-CIT ACD (2 sources) Start: 12-20-2015 End: 05-07-2016 PREPOPIK 10-3.5-12 MG-GM-GM PACK use as per instructions SOD PICOSULFATE-MAG OX-CIT ACD [id number] Lazara Vinson RN Start: 12-20-2015 PREPOPIK 10-3. 5-12 MG-GM-GM PACK use as per instructions SOD PICOSULFATE-MAG OX-CIT ACD [id number] Patti Luciano clopidogrel 75 mg oral tablet (20 sources) P2Y12 Platelet Inhibitor Start: 02-27-2016 End: 09-02-2019 take 1 tablet by mouth once daily Clopidogrel 75 MG tablet Discontinued 75 mg PO DAILY February 27, 2016 12:00am September 02, 2019 12:15pm doxycycline anhydrous 40 mg delayed release oral capsule (2 sources) Tetracycline-class Drug Start: 03-27-2015 End: 03-28-2015 ORACEA 40 MG CPDR DOXYCYCLINE [id number] Zhang Quick MD empagliflozin 25 mg oral tablet (20 sources) Sodium-Glucose Cotransporter 2 Inhibitor Start: 01-06-2022 End: 10-13-2022 take 1 tablet by mouth once daily Empagliflozin (Jardiance) 25 mg tablet Discontinued 25 mg PO DAILY January 06, 2022 12:00am October 13, 2022 10:19am fenofibrate 145 mg oral tablet (20 sources) Peroxisome Proliferator Receptor alpha Agonist Start: 07-29-2016 End: 12-24-2018 take 1 tablet by mouth once daily Fenofibrate Nanocrystallized 145 MG tablet Discontinued 145 mg PO DAILY July 29, 2016 1:00am December 24, 2018 2:46pm gabapentin 300 mg oral capsule (20 sources) Anti-epileptic Agent Start: 07-29-2016 End: 12-24-2018 take 1 capsule by mouth three times daily at mealtime Gabapentin 300 MG capsule Discontinued 300 mg PO 3 TIMES DAILY WITH MEALS July 29, 2016 1:00am December 24, 2018 2:46pm glipiZIDE 5 mg oral tablet (20 sources) Sulfonylurea Start: 02-22-2024 End: 05-25-2024 take 1 tablet by mouth at bedtime Glipizide 5 mg tablet Discontinued 5 mg PO AT BEDTIME February 22, 2024 12:00am May 25, 2024 9:21am Start: 2023 take 1.5 tablets by mouth at breakfast, then take 1 tablet by mouth at dinner glipiZIDE 5 mg oral tablet See Instructions, 1.5 tab(s) at breakfast and 1 tablet at dinner; 90 day(s), # 225 tab(s), 1 Refill(s), Pharmacy: [facility], 172, cm, 11/03/23 8:30:00 EST, Height, kg, 11/03/23 8:30:00 EST, Dosing Weight Start Date: 11/20/23 Status: Ordered Start: 06-15-2023 take 1.5 tablets by mouth at breakfast, then take 1 tablet by mouth at dinner glipiZIDE 5 mg oral tablet See Instructions, 1.5 tab(s) at breakfast and 1 tablet at dinner; 90 day(s), # 225 tab(s), 1 Refill(s), Pharmacy: [id number], 170.5, cm, 06/02/23 9:59:00 EDT, Height, kg, 06/02/23 9:59:00 EDT, Dosing Weight Start Date: 06/15/23 Status: Ordered Start: 01-06-2022 End: 05-25-2024 take 7.5 mg by mouth once daily, then take 1 tablet by mouth in the evening Glipizide 5 mg tablet Discontinued 7.5 mg PO DAILY January 06, 2022 9:08am May 25, 2024 9:21am diabetes take 7.5 mg that morning and 5 mg in the evening. Start: 01-06-2022 take 7.5 mg by mouth twice daily, then take 5 mg by mouth in the evening Glipizide Active 5 MG PO TWICE A DAY January 06, 2022 9:08am take 7.5 mg that morning and 5 mg in the evening. Start: 12-24-2018 End: 01-06-2022 take 1 tablet by mouth twice daily Glipizide 5 mg tablet Discontinued 5 mg PO TWICE A DAY 180 December 24, 2018 12:00am January 06, 2022 9:12am diabetes Start: 03-27-2015 take 1 tablet by yana th once daily GLIPIZIDE 5 MG TABS One tablet by mouth daily GLIPIZIDE [id number] Payal Virgen PA-C GLUCOSE BLOOD (2 sources) ONETOUCH VERIO S TRP use as directed once daily GLUCOSE BLOOD [id number] Buffy Espinoza End: 05-07-2016 ONETOUCH VERIO STRP use as d irected once daily GLUCOSE BLOOD [id number] Lazara Vinson, ERI 24 hr isosorbide mononitrate 60 mg extended release oral tablet (20 sources) Nitrate Vasodilator Start: 10-22-2022 End: 01-08-2024 take 1 tablet by mouth once daily, then take 1 tablet by mouth every twenty-four hours Isosorbide Mononitrate 60 mg tablet extended release 24 hr Discontinued 60 mg PO DAILY 90 3 October 22, 2022 1:00am January 08, 2024 10:57am This is a dose increase Start: 10-13-2022 End: 10-22-2022 take 1 tablet by mouth once daily, then take 1 tablet by mouth every twenty-four hours Isosorbide Mononitrate 30 mg tablet extended release 24 hr Discontinued 30 mg PO DAILY 30 October 13, 2022 1:00am October 22, 2022 1:06pm lansoprazole 30 mg delayed release oral capsule (20 sources) Proton Pump Inhibitor Start: 07-29-2016 End: 12-24-2018 take 1 capsule by mouth once daily Lansoprazole 30 MG capsule Discontinued 30 mg PO DAILY July 29, 2016 1:00am December 24, 2018 2:46pm linagliptin 5 mg oral tablet (20 sources) Dipeptidyl Peptidase 4 Inhibitor Start: 12-24-2018 End: 11-25-2019 take 1 tablet by mouth at bedtime Linagliptin 5 mg tablet Discontinued 5 mg PO AT BEDTIME 90 90 0 December 24, 2018 12:00am November 25, 2019 11:35am diabetes Start: 12-05-2016 take 1 tablet by yana once daily TRADJENTA 5 MG TABS One tablet by mouth daily LINAGLIPTIN [id number] Payal Virgen PA-C lisinopril 10 mg oral tablet (20 sources) Angiotensin Converting Enzyme Inhibitor Start: 11-08-2015 End: 09-20-2019 take 1 tablet by mouth once daily Lisinopril 10 MG tablet Discontinued 10 mg PO DAILY November 08, 2015 1:00am September 20, 2019 2:07pm metFORMIN hydrochloride 500 mg oral tablet (20 sources) Biguanide Start: 11-08-2015 End: 06-24-2019 take 1 tablet by mouth three times daily at mealtime Metformin 500 MG tablet Discontinued 500 mg PO 3 TIMES DAILY WITH MEALS 90 0 November 08, 2015 2:33pm June 24, 2019 9:38am Start: 11-06-2015 End: 11-08-2015 take 1 tablet by mouth twice daily at mealtime Metformin 500 MG tablet Discontinued 500 mg PO TWICE DAILY WITH MEALS November 06, 2015 1:00am November 08, 2015 2:34pm Start: 03-27-2015 take 2 tablets by mo ut once daily METFORMIN HCL 500 MG TABS Two tablets by mouth daily METFORMIN HCL [id number] Jackie Valle RN methocarbamol 750 mg oral tablet (20 sources) Muscle Relaxant Start: 11-08-2019 End: 05-25-2024 take 1 tablet by mouth every eight hours as needed for muscle spasms Methocarbamol 750 mg tablet Discontinued 750 mg PO Q8H as needed for spasm November 08, 2019 1:00am May 25, 2024 9:21am Start: 03-27-2015 End: 03-28-2015 take 1 tablet by mouth once daily METHOCARBAMOL 750 MG TABS One tablet by mouth daily METHOCARBAMOL [id number] Jackie Valle RN 24 hr metoprolol succinate 25 mg extended release oral tablet (20 sources) beta-Adrenergic Carol Start: 01-06-2022 End: 05-25-2024 take 1 tablet by mouth every twenty-four hours at bedtime Metoprolol Succinate 25 mg tablet extended release 24 hr Discontinued 25 mg PO AT BEDTIME January 06, 2022 12:00am May 25, 2024 9:21am Start: 01-06-2022 take 25 mg by mouth at bedtime Metoprolol Succinate Active 25 MG PO AT BEDTIME January 06, 2022 12:00am Start: 06-05-2020 End: 01-06-2022 Metoprolol Tartrate 25 mg ta blet Discontinued 12.5 mg PO TWICE A DAY June 05, 2020 12:00am January 06, 2022 9:12am blood pressure/heart Start: 06-05-2020 End: 01-06-2022 take 12.5 mg by mouth twice daily Metoprolol Tartrate Discontinued 12.5 MG PO TWICE A DAY June 05, 2020 12:00am January 06, 2022 9:12am Start: 03-22-2020 End: 06-05-2020 take 1 tablet by mouth once daily Metoprolol Succinate 25 MG tablet Discontinued 25 mg PO DAILY March 22, 2020 12:00am June 05, 2020 8:54am Start: 09-02-2019 End: 09-20-2019 Metoprolol Tartrate 25 MG ta blet Discontinued 12.5 mg PO TWICE A DAY 60 0 September 02, 2019 1:00am September 20, 2019 2:48pm Start: 09-02-2019 End: 09-20-2019 take 12.5 mg by mouth twice daily Metoprolol Tartrate Discontinued 12.5 MG PO TWICE A DAY 60 September 02, 2019 1:00am September 20, 2019 2:48pm Start: 07-29-2016 End: 12-24-2018 take 1 tablet by mouth once daily Metoprolol Succinate 50 MG tablet Discontinued 50 mg PO DAILY July 29, 2016 1:00am December 24, 2018 2:45pm Start: 12-12-2010 End: 03-27-2015 take 1 tablet by mouth twice daily METOPROLOL TARTRATE 25 MG TABS One tablet by mouth twice daily METOPROLOL TARTRATE [id number] Jackie Valle RN modafinil 200 mg oral tablet (20 sources) Sympathomimetic-like Agent Start: 07-29-2016 End: 12-24-2018 take 1 tablet by mouth once daily Modafinil 200 MG tablet Discontinued 200 mg PO DAILY July 29, 2016 1:00am December 24, 2018 2:46pm ondansetron 4 mg disintegrating oral tablet (20 sources) Serotonin-3 Receptor Antagonist Start: 02-27-2024 End: 05-25-2024 take 1 tablet by mouth every eight hours as needed for nausea Ondansetron 4 mg tablet,disintegr ating Discontinued 4 mg PO EVERY 8 HOURS NEEDED as needed for Nausea 10 0 February 27, 2024 12:00am May 25, 2024 9:21am Start: 09-15-2022 End: 01-08-2024 take 1 tablet by mouth every eight hours as needed for nausea and vomiting Ondansetron 4 mg tablet,disintegrating Discontinued 4 mg PO Q8H as needed for nausea and vomiting 14 0 September 15, 2022 1:00am January 08, 2024 10:58am oxyCODONE hydrochloride 5 mg oral capsule (18 sources) Opioid Agonist Start: 05-25-2024 End: 08-29-2024 take 1 capsule by mouth twice daily as needed Oxycodone 5 mg capsule Discontinued 5 mg PO TWICE A DAY as needed 0 May 25, 2024 12:00am August 29, 2024 10:41am Start: 04-07-2024 End: 04-28-2024 take 5 mL by mouth every six hours as needed for pain Oxycodone 5 mg/5 mL solution Discontinued 5 mg PO EVERY 6 HOURS as needed for pain 473 21 0 April 07, 2024 April 27, 2024 12:00am April 28, 2024 12:04am Radiation dermatitis Radiodermatitis, unspecified take 5 mL PO/PEG q6 hrs prn pain pantoprazole 40 mg delayed release oral tablet (20 sources) Proton Pump Inhibitor Start: 11-08-2019 End: 06-05-2020 take 1 tablet by mouth once daily Pantoprazole 40 mg tablet,delayed release (DR/EC) Discontinued 40 mg PO DAILY November 08, 2019 1:00am June 05, 2020 8:56am pioglitazone 30 mg oral tablet (20 sources) Peroxisome Proliferator Receptor alpha Agonist, Peroxisome Proliferator Receptor gamma Agonist, Thiazolidinedione Start: 07-29-2016 End: 12-24-2018 take 1 tablet by mouth once daily Pioglitazone 30 MG tablet Discontinued 30 mg PO DAILY July 29, 2016 1:00am December 24, 2018 2:46pm pravastatin sodium 80 mg oral tablet (2 sources) HMG-CoA Reductase Inhibitor Start: 12-12-2010 End: 03-27-2015 take 1 tablet by mouth once daily at bedtime PRAVACHOL 80 MG TABS One tablet by mouth daily at bedtime PRAVASTATIN SODIUM [id number] Jackie Valle RN Semaglutide (Rybelsus) 3 mg tablet (12 sources) Start: 02-03-2023 End: 05-25-2024 take 1 tablet by mouth once daily Semaglutide (Rybelsus) 3 mg tablet Discontinued 14 mg PO DAILY February 03, 2023 9:43am May 25, 2024 9:21am Start: 02-03-2023 take 1 tablet by yana once daily Semaglutide (Rybelsus) 3 mg tablet Active 14 MG PO DAILY February 03, 2023 9:43am Semaglutide (Semaglutide 14 Mg Tablet) 14 mg tablet (9 sources) Start: 02-27-2024 End: 05-25-2024 Semaglutide (Semaglutide 14 Mg Tablet) 14 mg tablet Discontinued 14 mg PO February 27, 2024 12:00am May 25, 2024 9:21am silver sulfADIAZINE 10 mg/ml topical cream (9 sources) Sulfonamide Antibacterial Start: 04-06-2024 End: 04-25-2024 Silver Sulfadiazine (Silvadene) 1 % cream Discontinued 1 NMA TOPICAL TWICE A DAY 85 3 April 06, 2024 12:00am April 25, 2024 10:37am Radiation dermatitis Radiodermatitis, unspecified radiation dermatitis apply a 1.5 mm thickness to area of moist peeling tamsulosin hydrochloride 0.4 mg oral capsule (20 sources) alpha-Adrenergic Carol Start: 12-24-2018 End: 05-25-2024 take 1 capsule by mouth at bedtime Tamsulosin 0.4 mg capsule Discontinued 0.4 mg PO AT BEDTIME 90 90 0 December 24, 2018 12:00am May 25, 2024 9:21am prostate traMADol hydrochloride 50 mg oral tablet (20 sources) Opioid Agonist Start: 07-29-2016 End: 12-24-2018 take 1 tablet by mouth every four hours as needed for pain Tramadol 50 MG tablet Discontinued 50 mg PO EVERY 4 HOURS NEEDED as needed for Pain July 29, 2016 1:00am December 24, 2018 2:46pm 24 hr venlafaxine 75 mg extended release oral capsule (20 sources) Serotonin and Norepinephrine Reuptake Inhibitor Start: 07-29-2016 End: 12-24-2018 take 3 capsules by mouth once daily Venlafaxine 75 MG capsule Discontinued 225 mg PO DAILY July 29, 2016 1:00am December 24, 2018 2:47pm Start: 07-29-2016 End: 12-24-2018 take 225 mg by mouth once daily Venlafaxine Discontinued 225 MG PO DAILY July 29, 2016 1:00am December 24, 2018 2:47pm Problems Active Problems Problem Classification Problem Date Documented Da te Episodic/Chronic Abdominal hernia (9 sources) Incisional hernia 11-21-2020 Episodic Acute cerebrovascular disease (20 sources) Left sided cerebral infarction; Translations: [Acute lacunar infarction] Onset: 05-07-2016 05-07-2016 Chronic Comment on above: October 2015 Left t emporal area Adjustment disorders (9 sources) Grief finding 11-12-2021 Chronic Allergic reactions (10 sources) Radiation dermatitis; Translations: [Radiodermatitis, unspecified] Onset: 02-24-2025 04-06-2024 Episodic Aortic and peripheral arterial embolism or thrombosis (4 sources) Embolism 02-24-2023 Chronic Biliary tract disease (9 sources) Acute cholecystitis 10-23-2020 Episodic Cancer of esophagus (1 source) Personal history of malignant neoplasm of esophagus; Translations: [Personal history of malignant neoplasm of esophagus] Onset: 02-24-2025 Episodic Cancer of head and neck (20 sources) Neoplasm of epiglottis; 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] Onset: 04-25-2025 01-18-2024 Chronic Cancer of head and neck (10 sources) History of malignant neoplasm of head and/or neck; Translations: [Personal history of malignant neoplasm of unspecified site of lip, oral cavity, and pharynx] Onset: 02-24-2025 03-06-2024 Episodic Cardiac dysrhythmias (20 sources) Paroxysmal atrial fibrillation; Translations: [Paroxysmal atrial fibrillation] Onset: 02-24-2025 Chronic Chronic kidney disease (20 sources) Chronic progressive renal failure; Translations: [Chronic kidney disease, stage 2 (mild)] Onset: 06-23-2023 09-01-2019 Chronic Chronic kidney disease (3 sources) Chronic kidney disease; Translations: [Chronic kidney disease, stage 3b] Onset: 08-05-2024 Conditions associated with dizziness or vertigo (20 sources) Dizziness and giddiness; Translations: [Dizziness of unknown cause] Onset: 06-05-2016 06-05-2016 Episodic Congestive heart failure; nonhypertensive (20 sources) Acute on chronic diastolic heart failure; Translations: [Acute on chronic diastolic (congestive) heart failure] Onset: 02-24-2025 Chronic Coronary atherosclerosis and other heart disease (20 sources) Coronary arteriosclerosis; Translations: [Coronary atherosclerosis] Onset: 12-12-2010 Resolved: 05-07-2016 12-12-2010 Chronic Comment on above: Totally occluded rig ht coronary artery with left to right collaterals, Mild left anterior descending artery disease, Mild left circumflex disease per heart cath 2005 Deficiency and other anemia (9 sources) Anemia due to blood loss 11-11-2019 Chronic Deficiency and other anemia (1 source) Anemia in chronic kidney disease; Translations: [Anemia in chronic kidney disease] Onset: 02-24-2025 Chronic Deficiency and other anemia (9 sources) Anemia 11-02-2019 Episodic Diabetes mellitus with complications (20 sources) Diabetic peripheral neuropathy; Translations: [Disorder of kidney due to diabetes mellitus] Onset: 08-05-2024 03-21-2020 Chronic Diabetes mellitus without complication (20 sources) Diabetes mellitus; Translations: [Type 2 diabetes mellitus] Onset: 03-27-2015 03-27-2015 Chronic Disorders of lipid metabolism (20 sources) Hyperlipidemia; Translations: [Hyperlipidemia, unspecified] Onset: 12-12-2010 12-12-2010 Chronic Esophageal disorders (2 sources) Esophageal obstruction; Translations: [Gastro-esophageal reflux disease without esophagitis] Onset: 02-24-2025 Chronic Essential hypertension (20 sources) Hypertensive disorder; Translations: [Essential (primary) hypertension] Chronic Comment on above: NO MEDS PRESENTLY-UN ABLE TO SWALLOW MEDS Fluid and electrolyte disorders (20 sources) Hyperkalemia; Translations: [Hyperkalemia] 11-08-2019 Episodic Genitourinary symptoms and ill-defined conditions (20 sources) Microalbuminuria; Translations: [Dysuria] Onset: 06-23-2023 12-26-2019 Episodic Hyperplasia of prostate (10 sources) Benign prostatic hypertrophy without outflow obstruction; Translations: [Benign prostatic hyperplasia without lower urinary tract symptoms] Onset: 02-24-2025 08-07-2021 Chronic Hypertension with complications and secondary hypertension (20 sources) Hypertensive heart AND renal disease; Translations: [Hypertensive left ventricular hypertrophy] Onset: 02-24-2025 12-17-2022 Chronic Mood disorders (9 sources) Seasonal affective disorder 10-21-2022 Chronic Mycoses (6 sources) Candidiasis of mouth 05-17-2024 Episodic Nausea and vomiting (9 sources) Nausea and vomiting; Translations: [Nausea with vomiting, unspecified] 03-06-2024 Episodic Neoplasms of unspecified nature or uncertain behavior (9 sources) Neoplastic disease of uncertain behavior 09-26-2019 Episodic Nonspecific chest pain (20 sources) Precordial pain; Translations: [Chest pain] Onset: 12-12-2010 Resolved: 05-07-2016 05-07-2016 Episodic Comment on above: intermittent, takes NTG PRN Other aftercare (2 sources) Other [place] [facility] (current) drug therapy; Translations: [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] Onset: 12-12-2010 12-12-2010 Episodic Other aftercare (20 sources) Long-term current use of anticoagulant; Translations: [custodial (current) use of anticoagulants] 09-22-2019 Episodic Other aftercare (9 sources) Post-discharge follow-up 10-23-2020 Episodic Other aftercare (2 sources) intermediate designer (current) use of anticoagulants; Translations: [custodial (current) use of anticoagulants] Onset: 02-24-2025 Episodic Other and ill-defined heart disease (9 sources) Left ventricular hypertrophy 12-17-2022 Chronic Other bone disease and musculoskeletal deformities (20 sources) Segmental and somatic dysfunction 10-14-2019 Episodic Other bone disease and musculoskeletal deformities (9 sources) Somatic dysfunction of lower limb 06-15-2020 Episodic Other circulatory disease (1 source) Subclavian artery stenosis; Translations: [Stricture of artery] Onset: 05-07-2016 05-07-2016 Chronic Other circulatory disease (20 sources) Transient hypotension; Translations: [Hypotension, unspecified] 11-08-2019 Episodic Other circulatory disease (9 sources) Abnormal chest sounds 09-23-2022 Episodic Other circulatory disease (9 sources) History of lacunar cerebrovascular accident 09-23-2022 Episodic Other circulatory disease (9 sources) Telangiectasia disorder 04-27-2020 Episodic Other circulatory disease (9 sources) H/O: atrial fibrillation; Translations: [Personal history of other diseases of the circulatory system] 03-06-2024 Episodic Other circulatory disease (1 source) Personal history of transient ischemic attack (TIA), and cerebral infarction without residual deficits; Translations: [Personal history of transient ischemic attack (TIA), and cerebral infarction without residual deficits] Onset: 02-27-2025 Episodic Other connective tissue disease (9 sources) Biceps tendinitis 04-30-2021 Episodic Other connective tissue disease (9 sources) Infraspinatus tendinitis 04-14-2019 Episodic Other connective tissue disease (9 sources) Swelling of right foot 11-02-2019 Episodic Other diseases of veins and lymphatics (9 sources) Lymphedema; Translations: [Lymphedema, not elsewhere classified] 07-14-2024 Chronic Other gastrointestinal disorders (9 sources) Diarrhea 01-13-2020 Episodic Other gastrointestinal disorders (7 sources) Swallowing painful 11-03-2023 Episodic Other gastrointestinal disorders (3 sources) Dysphagia, unspecified; Translations: [Dysphagia, unspecified] Onset: 01-25-2025 Episodic Other injuries and conditions due to external causes (9 sources) Tear of skin 07-13-2020 Episodic Other lower respiratory disease (20 sources) Dyspnea on exertion; Translations: [Dyspnea, unspecified] 11-08-2019 Episodic Other lower respiratory disease (20 sources) Dyspnea; Translations: [Dyspnea, unspecified] 07-09-2022 Episodic Other lower respiratory disease (11 sources) Dyspnea, unspecified; Translations: [Other respiratory abnormalities] Episodic Other lower respiratory disease (9 sources) Cough 03-05-2023 Episodic Other lower respiratory disease (8 sources) Multiple nodules of lung; Translations: [Other nonspecific abnormal finding of lung field] 02-15-2025 Episodic Other lower respiratory disease (2 sources) Other nonspecific abnormal finding of lung field; Translations: [Other nonspecific abnormal finding of lung field] Onset: 02-15-2025 Episodic Other nervous system disorders (20 sources) Expressive dysphasia; Translations: [Aphasia] 09-01-2019 Chronic Other non-traumatic joint disorders (9 sources) Shoulder pain 08-17-2020 Episodic Other nutritional; endocrine; and metabolic disorders (7 sources) Body mass index 30+ - obesity 09-29-2023 Chronic Other nutritional; endocrine; and metabolic disorders (7 sources) Obesity 11-03-2023 Chronic Other nutritional; endocrine; and metabolic disorders (2 sources) Overweight 03-31-2023 Episodic Other nutritional; endocrine; and metabolic disorders (2 sources) Overweight in adulthood with body mass index of 25 or more but less than 30 05-05-2023 Episodic Other nutritional; endocrine; and metabolic disorders (9 sources) H/O: diabetes mellitus; Translations: [Personal history of other endocrine, nutritional and metabolic disease] 03-06-2024 Episodic Other skin disorders (9 sources) Actinic keratosis 10-14-2019 Episodic Other skin disorders (9 sources) Dry skin 10-14-2019 Episodic Other skin disorders (9 sources) Lesion of skin of face 06-17-2022 Episodic Other skin disorders (9 sources) Loss of hair 01-30-2021 Episodic Other skin disorders (9 sources) Pigmented skin lesion 02-27-2021 Episodic Other skin disorders (6 sources) Mass of tongue 12-29-2023 Episodic Otitis media and related conditions (9 sources) Dysfunction of eustachian tube 08-09-2019 Episodic Peripheral and visceral atherosclerosis (20 sources) Claudication; Translations: [Peripheral vascular disease, unspecified] Onset: 05-07-2016 05-07-2016 Chronic Comment on above: Right iliac stent 2018 Residual codes; unclassified (9 sources) Obstructive sleep apnea syndrome 06-24-2019 Chronic Residual codes; unclassified (1 source) Obstructive sleep apnea (adult) (pediatric); Translations: [Obstructive sleep apnea (adult) (pediatric)] Onset: 02-24-2025 Chronic Residual codes; unclassified (9 sources) Edema of lower extremity 10-14-2019 Episodic Residual codes; unclassified (9 sources) Screening due 07-15-2022 Episodic Residual codes; unclassified (6 sources) History of placement of gastrostomy tube 03-29-2024 Episodic Residual codes; unclassified (1 source) Acquired absence of other specified parts of digestive tract; Translations: [Acquired absence of other specified parts of digestive tract] Onset: 02-24-2025 Episodic Screening and history of mental health and substance abuse codes (20 sources) Ex-smoker; Translations: [Personal history of nicotine dependence] Onset: 02-27-2025 09-01-2019 Episodic Spondylosis; intervertebral disc disorders; other back problems (9 sources) Lumbar spondylosis 04-13-2019 Chronic Spondylosis; intervertebral disc disorders; other back problems (18 sources) Chronic low back pain; Translations: [Low back pain] 04-14-2019 Episodic Substance-related disorders (20 sources) Smoker; Translations: [Nicotine dependence, unspecified, uncomplicated] Onset: 11-04-2024 09-01-2019 Chronic Substance-related disorders (10 sources) Marijuana user; Translations: [Cannabis use, unspecified, uncomplicated] Onset: 02-24-2025 06-24-2019 Episodic Superficial injury; contusion (16 sources) Abrasion, left lower leg, initial encounter; Translations: [Abrasion of left leg] 09-20-2023 Episodic Syncope (9 sources) Syncope; Translations: [Syncope and collapse] 02-22-2024 Episodic Transient cerebral ischemia (10 sources) Transient cerebral ischemic attack, unspecified; Translations: [Transient cerebral ischemia] Onset: 05-07-2016 05-07-2016 Chronic Unclassified (1 source) Presence of other specified functional implants; Translations: [Presence of other specified functional implants] Onset: 05-07-2016 05-07-2016 Chronic Unclassified (2 sources) ILIAC ARTERY STENOSIS Onset: 09-21-2018 Unclassified (9 sources) Anticoagulant effect 01-28-2023 Unclassified (9 sources) Exposure to 2018 novel coronavirus 10-23-2020 Unclassified (18 sources) Medication refused 06-23-2023 Unclassified (20 sources) Patient encounter status 03-11-2021 Unclassified (9 sources) Seborrheic keratosis 02-27-2021 Unclassified (7 sources) Hypercoagulable state due to atrial fibrillation 09-29-2023 Unclassified (1 source) Low back pain, unspecified; Translations: [Low back pain, unspecified] Onset: 12-01-2023 Viral infection (9 sources) Verruca vulgaris 10-14-2019 Episodic Past or Other Problems Problem Classification Problem Date Documented Da te Episodic/Chronic Gastrointestinal hemorrhage (20 sources) Upper gastrointestinal bleeding; Translations: [Gastrointestinal hemorrhage, unspecified] Onset: 0 06-05-2020 Episodic Lymphadenitis (20 sources) Mediastinal lymphadenopathy; Translations: [Localized enlarged lymph nodes] Onset: 5 10-13-2024 Episodic Malaise and fatigue (20 sources) Fatigue; Translations: [Physical deconditioning] Onset: 4 01-30-2021 Episodic Other circulatory disease (2 sources) Abnormal result of cardiovascular function study, unspecified; Translations: [Abnormal result of cardiovascular function study, unspecified] Onset: 1 Resolved: 6 05-07-2016 Episodic Other circulatory disease (20 sources) History of cerebrovascular accident; Translations: [Personal history of transient ischemic attack (TIA), and cerebral infarction without residual deficits] Onset: 6 03-22-2020 Episodic Comment on above: Left temporal area Other circulatory disease (1 source) Other specified symptoms and signs involving the circulatory and respiratory systems; Translations: [Other specified symptoms and signs involving the circulatory and respiratory systems] Onset: 5 Episodic Other connective tissue disease (1 source) Pain in lower limb; Translations: [Pain in leg, unspecified] Onset: 6 05-07-2016 Episodic Unclassified (20 sources) Encounter for screening for malignant neoplasm of colon; Translations: [Viral screening status] Onset: 6 12-20-2015 Episodic Unclassified (1 source) Low back pain, unspecified; Translations: [Low back pain, unspecified] Onset: 4 Results Test Name Value Interpretation Reference Range Facility [id number] 05-06-2025 [facility]. COMMENT Normal . [facility] Comment on above: Order Comment: [id number] 1CYSTATIN C SERUM RMT Result Comment: Test Ordered: [id number] Cystatin C Cystatin C 2.17 [H ] mg/L Reference Range: 0.78-1.15 Performed at: [facility] [address] [id number] Repairer Evaporator: Davis Castillo PhD, Phone: [phone] Performed By: #### L 9200.0000 #### [facility] [address] [place], [address] Anion gap in Serum or Plasma Ordered By: Rianna Barnhart on 05-05-2025 Anion gap [Moles/Vol] 9 mmol/L 5- [facility] BUN/creatinine ratioOrdered By: Rianna Barnhart on 05-05-2025 Urea nitrogen/Creatinine [Mass ratio] 25.3 mg/mg High 10- [facility] CBC-Complete Blood Cnt No Di ffon 05-05-2025 Erythrocyte distribution width (RBC) [Ratio] 12.5 % Normal 11.6-14.6 [facility] Comment on above: Performed By: #### L 9200.0000 #### [facility] [address] [place], [address] Hematocrit (Bld) [Volume fraction] 31.3 % Low 40-54 [facility] Comment on above: Performed By: #### L 9200.0000 #### [facility] [address] [place], [address] Hemoglobin (Bld) [Mass/Vol] 10.9 g/dL Low 13.0-16.5 [facility] Comment on above: Performed By: #### L 9200.0000 #### [facility] [address] [place], [address] MCH (RBC) [Entitic mass] 33.1 pg High 27.0-32.0 [facility] Comment on above: Performed By: #### L 9200.0000 #### [facility] [address] [place], [address] MCHC (RBC) [Mass/Vol] 34.8 g/dL Normal 32-36 [facility] Comment on above: Performed By: #### L [id number] #### [facility] [address] [place], [address] MCV (RBC) [Entitic vol] 95.1 fL High 80-[address] [facility] Comment on above: Performed By: #### L 9200.0000 #### [facility] [address] [place], [address] Platelet mean volume (Bld) [Entitic vol] 9.9 fL Normal 6.2-12.0 [facility] Comment on above: Performed By: #### L 9200.0000 #### [facility] [address] [place], [address] Platelets (Bld) [#/Vol] 185 10*3/uL Normal 150-450 [facility] Comment on above: Performed By: #### L 9200.0000 #### [facility] [address] [place], [address] RBC (Bld) [#/Vol] 3.29 10*6/uL Low 4.6-6.2 [facility] Comment on above: Performed By: #### L [id number] #### [facility] [address] [place], [address] RDW SD 43.3 fl Normal 35.1-43.9 [facility] Comment on above: Performed By: #### L 9200.0000 #### [facility] [address] [facility] [place], [address] WBC (Bld) [#/Vol] 4.5 10*3/uL Normal 4.4-11.0 [facility] Comment on above: Performed By: #### L 9200.0000 #### [facility] [address] [facility] [place], [address] Carbon dioxide, total [Moles /volume] in Central venous bloodOrdered By: Rianna Barnhrat on 05-05-2025 CO2 [Moles/Vol] 27.7 mmol/L 21.0-32.0 [facility] Chloride assayOrdered By: Porfirio Barnhart on 05-05-2025 Chloride [Moles/Vol] 102 mmol/L 98-108 [facility] Erythrocyte distribution wid th ratioOrdered By: Rianna Barnhart on 05-05-2025 Erythrocyte distribution width (RBC) [Ratio] 12.5 % 11.6-14.6 [facility] Erythrocyte distribution wid th standard deviationOrdered By: Rianna Barnhart on 05-05-2025 Erythrocyte distribution width (RBC) [Ratio] 43.3 fl 35.1-43.9 [facility] Glomerular filtration rate ( GFR) estimation/1.73 sq m using serum, plasma, or whole bOrdered By: Rianna Barnhart on 05-05-2025 GFR/1.73 sq M.predicted among non-blacks MDRD (S/P/Bld) [Vol rate/Area] 46 mL/min/{1.73_m2} Low >60 [facility] Comment on above: mL/min/1.73m2 CKD-EP I Creatinine Equation (2020) Hematocrit Auto (Bld) [Volum e fraction]Ordered By: Rianna Barnhart on 05-05-2025 Hematocrit (Bld) [Volume fraction] 31.3 % Low 40-54 [facility] Hemoglobin measurementOrdere d By: Rianna Barnhart on 05-05-2025 Hemoglobin (Bld) [Mass/Vol] 10.9 g/dL Low 13.0-16.5 [facility] International normalized rat io (INR) calculationOrdered By: Zhang Quick on 05-05-2025 INR Coag (Bld) [Relative time] 3.0 {INR} [facility] MCV (mean corpuscular volume ) determinationOrdered By: Rianna Barnhart on 05-05-2025 MCV (RBC) [Entitic vol] 95.1 fL High 80-94 [facility] Mean corpuscular hemoglobin (MCH) determinationOrdered By: Rianna Barnhart on 05-05-2025 MCH (RBC) [Entitic mass] 33.1 pg High 27.0-32.0 [facility] Mean corpuscular hemoglobin concentration (MCHC) determinationOrdered By: Rianna Barnhart on 05-05-2025 MCHC (RBC) [Mass/Vol] 34.8 g/dL 32-36 [facility] Mean platelet volume determi nationOrdered By: Rianna Barnhart on 05-05-2025 Platelet mean volume (Bld) [Entitic vol] 9.9 fL 6.2-12.0 [facility] Platelet countOrdered By: Porfirio Barnhart on 05-05-2025 Platelets (Bld) [#/Vol] 185 10*3/uL 150-450 [facility] Potassium measurement (mass/ volume)Ordered By: Rianna Barnhart on 05-05-2025 Potassium (Unsp spec) [Mass/Vol] 4.9 mmol/L 3.3-5.1 [facility] Protein+Creatinine Ratio,Uri neon 05-05-2025 PROT:CRE RATIO 246 mg/g CRE High 0-200 [facility] Comment on above: Performed By: #### L 9200.0000 #### [facility] [address] [place] [address], [address] Protein (U) [Mass/Vol] 25.3 mg/dL High 0.0-12.0 [facility] Comment on above: Performed By: #### L 9200.0000 #### [facility] [address] [place], [address] UR CREAT 103.00 mg/dL Normal 39.00-259.00 [facility] Comment on above: Performed By: #### L 9200.0000 #### [facility] [address] [place], [address] Prothrombin Time w/INRon INR Coag (PPP) [Relative time] 3.0 {INR} Normal [facility] Comment on above: Order Comment: Comme nts: STANDING ORDER Performed By: #### L 300.3900 ####[facility] [address] [place], [address] PT Coag (PPP) [Time] 31.6 s High 11.7-14.9 [facility] Comment on above: Order Comment: Comme nts: STANDING ORDER Performed By: #### L 300.3900 ####[facility] [address] [place], [address] Prothrombin timeOrdered By: Zhang Quick on 05-05-2025 PT Coag (PPP) [Time] 31.6 s High 11.7-14.9 [facility] RBC Auto (Bld) [#/Vol]Ordere d By: Rianna Barnhart on 05-05-2025 RBC (Bld) [#/Vol] 3.29 10*6/uL Low 4.6-6.2 [facility] Random urine creatinine acacia urement (mass/volume)Ordered By: Rianna Barnhart on 05-05-2025 Creatinine Unsp time (U) [Mass/Vol] 103.00 mg/dL 39.00-259.00 [facility] Renal Profileon 05-05-2025 Albumin [Mass/Vol] 3.8 g/dL Normal 3.4-4.8 [facility] Comment on above: Performed By: #### L 9200.0000 #### [facility] [address] [place], [address] BUN/CRE 25.3 RATIO High 10-20 [facility] Comment on above: Performed By: #### L 9200.0000 #### [facility] [address] [place], [address] Calcium [Mass/Vol] 9.3 mg/dL Normal 7.6-11.0 [facility] Comment on above: Performed By: #### L 9200.0000 #### [facility] [address] [place], [address] Chloride [Moles/Vol] 102 mmol/L Normal 98-108 [facility] Comment on above: Performed By: #### L 9200.0000 #### [facility] [address] [place], [address] CO2 [Moles/Vol] 27.7 mmol/L Normal 21.0-32.0 [facility] Comment on above: Performed By: #### L 9200.0000 #### [facility] [address] [place], [address] Creatinine [Mass/Vol] 1.56 mg/dL High 0.70-1.20 [facility] Comment on above: Performed By: #### L 9200.0000 #### [facility] [address] [place], [address] GAP 9 Normal 5-15 [facility] Comment on above: Performed By: #### L 9200.0000 #### [facility] [address] [place], [address] GFR/1.73 sq M.predicted among non-blacks MDRD (S/P/Bld) [Vol rate/Area] 46 mL/min/{1.73_m2} Low >60 [facility] Comment on above: Result Comment: mL/m in/1.73m2 CKD-EPI Creatinine Equation (2020) Performed By: #### L 9200.0000 #### [facility] [address] [place], [address] Glucose [Mass/Vol] 78 mg/dL Normal 70-99 [facility] Comment on above: Performed By: #### L 9200.0000 #### [facility] [address] [place], [address] Phosphate [Mass/Vol] 3.6 mg/dL Normal 2.7-4.5 [facility] Comment on above: Performed By: #### L 9200.0000 #### [facility] [address] [place], [address] Potassium [Moles/Vol] 4.9 mmol/L Normal 3.3-5.1 [facility] Comment on above: Performed By: #### L [id number] #### [facility] [address] [place], [address] Sodium [Moles/Vol] 139 mmol/L Normal 133-145 [facility] Comment on above: Performed By: #### L 9200.0000 #### [facility] [address] [place], [address] Urea nitrogen [Mass/Vol] 40 mg/dL High 4-19 [facility] Comment on above: Performed By: #### L 9200.0000 #### [facility] [address] [place], [address] Serum creatinine measurement (mass/volume)Ordered By: Rianna Barnhart on 05-05-2025 Creatinine [Mass/Vol] 1.56 mg/dL High 0.70-1.20 [facility] Serum glucose measurement (m ass/volume)Ordered By: Rianna Barnhart on 05-05-2025 Glucose [Mass/Vol] 78 mg/dL 70-99 [facility] Serum or plasma albumin acacia urement (mass/volume)Ordered By: Rianna Barnhart on 05-05-2025 Albumin [Mass/Vol] 3.8 g/dL 3.4-4.8 [facility] Serum or plasma calcium acacia urement (mass/volume)Ordered By: Rainna Barnhart on 05-05-2025 Calcium [Mass/Vol] 9.3 mg/dL 7.6-11.0 [facility] Serum or plasma urea nitroge n measurement (mass/volume)Ordered By: Rianna Barnhart on 05-05-2025 Urea nitrogen [Mass/Vol] 40 mg/dL High 4-19 [facility] Sodium levelOrdered By: Cristobal Barnhart on 05-05-2025 Sodium [Moles/Vol] 139 mmol/L 133-145 [facility] Urine protein measurement (m ass/volume)Ordered By: Rianna Barnhart on 05-05-2025 Protein (U) [Mass/Vol] 25.3 mg/dL High 0.0-12.0 [facility] Urine protein/creatinine mas s ratioOrdered By: Rianna Barnhart on 05-05-2025 Protein/Creatinine (U) [Mass ratio] 246 mg/g CRE High 0-200 [facility] White blood cell (WBC) count Ordered By: Rianna Barnhart on 05-05-2025 WBC (Bld) [#/Vol] 4.5 10*3/uL 4.4-11.0 [facility] Modified Barium Swallow Stud n 04-20-2025 Modified Barium Swallow Study [facility] Speech Pathology [address] [place] [address] Modified Barium Swallow Study MR#: [id number] Acct: [id number] Name: TYRELL REYES Bebo Rep #: [id number] : 1950 74 From: Betsy Nguyen M.A. 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 04/01/2024: received definitive radiation therapy consisting of 6996 cGy delivered to the gross disease within the larynx and bilateral adenopathy, 5940 cGy delivered to the entire remaining larynx and bilateral neck and 5412 cGy to the high level 2 bilaterally and bilateral supraclavicular fossa all in 33 fractions???He was treated 6 fractions per week because he was not a candidate for chemotherapy.??? Currently, he is undergoing work up for lung nodule w/ bronchoscopy and biopsy planned later this month. Dysphagia History secondary to SCC of supraglottic larynx: BSE with DIRECTOR OF STATE 02/11/24 revealed mild oropharyngeal dysphagia and recommended Regular textures / Thin liquids with compensatory strategies to decrease risk for aspiration. DIRECTOR OF STATE recommended MBSS prior to radiation treatment to further assess swallow function and aspiration risk. MBSS 02/15/24 revealed mild oral dysphagia, moderate pharyngoesophageal dysphagia and recommended the following: ???Diet: Regular Textures and Thin Liquids; Comment: STOP food/drink and resume later if concern for reflux, retention, or regurgitation, and resume food/drink at a later time. Compensatory Strategies: Small Bites, Small Sips (Cough and re-swallow after every 1-2 sips), Slow Rate, Sitting upright and Remain sitting upright for 60 minutes after PO intake.??? He followed w/ OP ST during and following radiation treatment to manage his dysphagia. FEES completed 05/28/2024 due to difficulty resuming an oral diet following treatment. FEES revealed mild oral dysphagia, moderate-severe pharyngeal dysphagia w/ moderate-severe edema of the oropharynx, hypopharynx, and larynx. FEES recommended thin liquids w/ use of compensatory strategies. Since FEES study, he continued to follow w/ ST and advanced to puree w/ some soft solids / thin liquids; however, due to significant silent aspiration w/ pudding MBSS 06/2024, he resumed a full thin liquid diet. Re-evaluation via MBSS 10/21/2024 revealed severe oropharyngeal dysphagia and recommended participation in the [facility] ([facility]), an intensive exercise program to manage dysphagia. In 3 weeks, he advanced from full thin liquid diet to regular textures / thin liquids w/ PEG tube still needed as the primary means for meeting nutritional and caloric needs. 1 month after intensive treatment ended, swallow function began to worsen. ENT recommended full liquid diet and he was referred to GI and underwent 3 dilations, most recent 03/06/2025. MBSS 03/22/2025 revealed severe oropharyngeal dysphagia and recommended thin liquids w/ recommendation to resume MDTP for 3 weeks and return for this repeat MBSS afterwards. During the past 3 weeks, the patient advanced his diet to soft solids / thin liquids and he is requiring 1 less carton of supplement via his PEG tube, while still maintaining his weight. Dysphagia History prior to SCC of supraglottic larynx: Hx of MBSS in 2014, which revealed mild pharyngoesophageal dysphagia. No follow up dysphagia therapy was completed. Over the years, he has felt that food/pills get caught in his throat. At times, he must ???bring food back up to get it back down.??? Other PMH: CHF, Carcinoma of epiglottis, Smoker, Wears hearing aid and dentures, Alcohol use, Neuropathy, Difficulty swallowing, Sleep apnea, Shortness of breath on exertion, A fib, Hx of CVA (10/2015), HTN, NSTEMI, Upper GI bleed, Chronic renal failure, HLD, Atherosclerosis of coronary artery 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, Stenosis of left subclavian artery, CKD, DDD, Marijuana use, Diabetic neuropathy, Osteoarthritis, DM type 2, See EMR for full PMH). Current Diet Ordered: Soft solids / Thin liquids Mental Status: WNL Respiratory Status: Oxygenating on Room Air Penetration-Aspiration Scale Penetration-Aspiration Scale: OBJECTIVE ASSESSMENT OF SWALLOW FUNCTION (QUANTITATIVE (more content not included)... Normal [facility] SP/HP.SPREEVon 04-12-2025 SP/HP.SPREEV [facility] Speech Pathology [facility] [address] [place] [address] / REEVALUATION / MEDICARE RECERTIFICATION SPEECH THERAPY MR#: [id number] Acct: [id number] Name: TYRELL REYES Rep #: [id number] : 1950 74 From: Betsy Nguyen M.A., [facility]-DIRECTOR OF STATE Referring Dr.: Dr. Riki Lizama, Insurance: MEDICARE PART A B [facility] Visit History Visit Info Date of Eval: 02/11/24 Today is Visit #: [id number] Rn Assessment: JORDYN History Attending Doctor: Referring Doctor: Reason for Referral: SWALLOW TRX. RX? 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 04/01/2024: received definitive radiation therapy consisting of 6996 cGy delivered to the gross disease within the larynx and bilateral adenopathy, 5940 cGy delivered to the entire remaining larynx and bilateral neck and 5412 cGy to the high level 2 bilaterally and bilateral supraclavicular fossa all in 33 fractions???He was treated 6 fractions per week because he was not a candidate for chemotherapy.??? Dysphagia History secondary to SCC of supraglottic larynx: BSE with DIRECTOR OF STATE 02/11/24 revealed mild oropharyngeal dysphagia and recommended Regular textures / Thin liquids with compensatory strategies to decrease risk for aspiration. DIRECTOR OF STATE recommended MBSS prior to radiation treatment to further assess swallow function and aspiration risk. MBSS 02/15/24 revealed mild oral dysphagia, moderate pharyngoesophageal dysphagia and recommended the following: ???Diet: Regular Textures and Thin Liquids; Comment: STOP food/drink and resume later if concern for reflux, retention, or regurgitation, and resume food/drink at a later time. Compensatory Strategies: Small Bites, Small Sips (Cough and re-swallow after every 1-2 sips), Slow Rate, Sitting upright and Remain sitting upright for 60 minutes after PO intake.??? He followed w/ OP ST during and following radiation treatment to manage his dysphagia. FEES completed 05/28/2024 due to difficulty resuming an oral diet following treatment. FEES revealed mild oral dysphagia, moderate-severe pharyngeal dysphagia w/ moderate-severe edema of the oropharynx, hypopharynx, and larynx. FEES recommended thin liquids w/ use of compensatory strategies. Since FEES study, he continued to follow w/ ST and advanced to puree w/ some soft solids / thin liquids; however, due to significant silent aspiration w/ pudding MBSS 06/2024, he resumed a full thin liquid diet. Re-evaluation via MBSS 10/21/2024 revealed severe oropharyngeal dysphagia and recommended participation in the [facility] ([facility]), an intensive exercise program to manage dysphagia. In 3 weeks, he advanced from full thin liquid diet to regular textures / thin liquids w/ PEG tube still needed as the primary means for meeting nutritional and caloric needs. 1 month after intensive treatment ended, swallow function began to worsen. ENT recommended full liquid diet and he was referred to GI and underwent 3 dilations, most recent 03/06/2025. Re-evaluation of swallow via MBSS on 03/22/2025 revealed severe oropharyngeal dysphagia and recommended full thin liquid diet (PEG to meet nutrition needs) and resuming intensive dysphagia treatment via MDTP. Pt agreeable and has been participating in MDTP w/ OP DIRECTOR OF STATE for 12 sessions since 03/27/2025. He has advanced to regular and soft solid textures / thin liquids w/ continued use of PEG; however, he now only requires 4 cartons of supplement via PEG as opposed to 5 cartons prior to treatment. 3 sessions remaining prior to repeat MBSS. Dysphagia History prior to SCC of supraglottic larynx: Hx of MBSS in 2014, which revealed mild pharyngoesophageal dysphagia. No follow up dysphagia therapy was completed. Over the years, he has felt that food/pills get caught in his throat. At times, he must ???bring food back up to get it back down.??? Other PMH: CHF, Carcinoma of epiglottis, Smoker, Wears hearing aid and dentures, Alcohol use, Neuropathy, Difficulty swallowing, Sleep apnea, Shortness of breath on exertion, A fib, Hx of CVA (10/2015), HTN, NSTEMI, Upper GI bleed, Chronic renal failure, HLD, Atherosclerosis of coronary artery 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, Stenosis of left subclavian artery, CKD, DDD, Marijuana use, Diabetic neuropathy, Osteoarthritis, DM type 2, See EMR for full PMH). Smoking Status: Former smoker Diagnosis Diagnosis: Carcinoma of epiglottis C (more content not included)... Normal [facility] Microalb:Creat Ratio,Random URon 04-10-2025 MALB:CREAT 23.1 mg/g CRE Normal <30 mg/g CRE [facility] Comment on above: Result Comment: AMENDED REPORT 04/10/252037 MALB:CREAT previously reported as: 231.0 mg/g CRE Performed By: #### L 300.4310, L100.1900, L300.3900 #### [facility] [address] [place], [address] International normalized rat io (INR) measurement by fingerstickOrdered By: Zhang Quick on 03-31-2025 INR Coag (BldC) [Relative time] 2.9 [facility] Comment on above: Critical Value > 4.0 Protime w/INR Fingerstickon 03-31-2025 INR Coag (PPP) [Relative time] 2.9 {INR} Normal [facility] Comment on above: Result Comment: Crit ical Value > 4.0 Performed By: #### L 9200.0000 ####[facility] [id number] [place], [place], [id number] Protime Coagsen 30.5 SEC High 11.7-14.9 [facility] Comment on above: Performed By: #### L 9200.0000 ####[facility] [id number], [address] Whole blood prothrombin time Ordered By: Zhang Abdelrahman on 03-31-2025 PT Coag (Bld) [Time] 30.5 s High 11.7-14.9 [facility] International normalized rat io (INR) measurement by fingerstickOrdered By: Zhang Abdelrahman on 03-24-2025 INR Coag (BldC) [Relative time] 3.6 [facility] Comment on above: Critical Value > 4.0 Protime w/INR Fingerstickon 03-24-2025 INR Coag (PPP) [Relative time] 3.6 {INR} Normal [facility] Comment on above: Result Comment: Crit ical Value > 4.0 Performed By: #### L 9200.0000 #### [facility] [address] [place], [place], [id number] Protime Coagsen 36.3 SEC High 11.7-14.9 [facility] Comment on above: Performed By: #### L 9200.0000 #### [facility] [address] [place], [place], [address] Whole blood prothrombin time Ordered By: Zhang Abdelrahman on 03-24-2025 PT Coag (Bld) [Time] 36.3 s High 11.7-14.9 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 04/01/2024: received definitive radiation therapy consisting of 6996 cGy delivered to the gross disease within the larynx and bilateral adenopathy, 5940 cGy delivered to the entire remaining larynx and bilateral neck and 5412 cGy to the high level 2 bilaterally and bilateral supraclavicular fossa all in 33 fractions???He was treated 6 fractions per week because he was not a candidate for chemotherapy.??? Currently, he is undergoing work up for lung nodule w/ bronchoscopy and biopsy planned later this month. Dysphagia History secondary to SCC of supraglottic larynx: BSE with DIRECTOR OF STATE 02/11/24 revealed mild oropharyngeal dysphagia and recommended Regular textures / Thin liquids with compensatory strategies to decrease risk for aspiration. DIRECTOR OF STATE recommended MBSS prior to radiation treatment to further assess swallow function and aspiration risk. MBSS 02/15/24 revealed mild oral dysphagia, moderate pharyngoesophageal dysphagia and recommended the following: ???Diet: Regular Textures and Thin Liquids; Comment: STOP food/drink and resume later if concern for reflux, retention, or regurgitation, and resume food/drink at a later time. Compensatory Strategies: Small Bites, Small Sips (Cough and re-swallow after every 1-2 sips), Slow Rate, Sitting upright and Remain sitting upright for 60 minutes after PO intake.??? He followed w/ OP ST during and following radiation treatment to manage his dysphagia. FEES completed 05/28/2024 due to difficulty resuming an oral diet following treatment. FEES revealed mild oral dysphagia, moderate-severe pharyngeal dysphagia w/ moderate-severe edema of the oropharynx, hypopharynx, and larynx. FEES recommended thin liquids w/ use of compensatory strategies. Since FEES study, he continued to follow w/ ST and advanced to puree w/ some soft solids / thin liquids; however, due to significant silent aspiration w/ pudding MBSS 06/2024, he resumed a full thin liquid diet. Re-evaluation via MBSS 10/21/2024 revealed severe oropharyngeal dysphagia and recommended participation in the [facility] ([facility]), an intensive exercise program to manage dysphagia. In 3 weeks, he advanced from full thin liquid diet to regular textures / thin liquids w/ PEG tube still needed as the primary means for meeting nutritional and caloric needs. 1 month after intensive treatment ended, swallow function began to worsen. ENT recommended full liquid diet and he was referred to GI and underwent 3 dilations, most recent 03/06/2025. He now returns for MBSS today to re-evaluate swallow function w/ plan to resume [facility]. Currently, pt is consuming thin liquids w/ small amounts of Ritz crackers. He has moderate xerostomia and dysgeusia. He is utilizing PEG tube to meet nutritional/caloric needs. Dysphagia History prior to SCC of supraglottic larynx: Hx of MBSS in 2014, which revealed mild pharyngoesophageal dysphagia. No follow up dysphagia therapy was completed. Over the years, he has felt that food/pills get caught in his throat. At times, he must ???bring food back up to get it back down.??? Other PMH: CHF, Carcinoma of epiglottis, Smoker, Wears hearing aid and dentures, Alcohol use, Neuropathy, Difficulty swallowing, Sleep apnea, Shortness of breath on exertion, A fib, Hx of CVA (10/2015), HTN, NSTEMI, Upper GI bleed, Chronic renal failure, HLD, Atherosclerosis of coronary artery 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, Stenosis of left subclavian artery, CKD, DDD, Marijuana use, Diabetic neuropathy, Osteoarthritis, DM type 2, See EMR for full PMH). Current Diet Ordered: Thin liquids, occ soft solids (Ritz) Dentition: Edentulous Mental Status: WNL Respiratory Status: Oxygenating on Room Air Penetration-Aspiration Scale Penetration-Aspiration Scale: OBJECTIVE ASSESSMENT OF SWALLOW FUNCTION (QUANTITATIVE ??? PER TRIAL): PENETRATION / ASPIRATION SCALE (BURRELL): 1 = does (more content not included)... Normal [facility] Prothrombin Time w/INRon INR Coag (PPP) [Relative time] 4.5 {INR} Invalid Interpretation Code [facility] Comment on above: Result Comment: CRIT ICAL VALUE CALLED TO JACKIE HWANG 03/22/25 1348 Karmen Lei. RESULTS READ BACK BY SAME. Performed By: #### L 9200.0000 #### [facility] [address] [place], [address] Prothrombin timeOrdered By: Zhang Quick on 03-22-2025 PT Coag (PPP) [Time] 43.4 s High 11.7-14.9 [facility] Comment on above: Performed By: #### L 9200.0000 #### [facility] [address] [place], [place], [address] Protime w/INR Fingerstickon 03-22-2025 INR Coag (PPP) [Relative time] 5.8 {INR} Invalid Interpretation Code [facility] Comment on above: Result Comment: Crit ical Value > 4.0 Performed By: #### L 9200.0000 #### [facility] [address] [place], [address] Protime Coagsen 54.5 SEC High 11.7-14.9 [facility] Comment on above: Performed By: #### L 9200.0000 #### [facility] [address] [place], [place], [id number] Cardiology Visit Reporton Cardiology Visit Report [facility] [address] [place], [place] [address] OFFICE VISIT Date of Service: 03/02/25 MR#: [id number] Acct: [id number] Name: AMYTYRELL Bebo Rep #: [id number] : 1950 Provider: SUSANNA frazier Age/Sex: 74/M Location: [facility] Status: Signed HPI HPI History of Present Illness Details: This is a 74-year-old gentleman who presents here today for a cardiovascular follow-up. He does have a history of coronary artery disease with mild disease noted in his LAD, circumflex and a totally occluded RCA with [id number] collaterals. He also has a history of hypertension, peripheral arterial disease with stenting to his left subclavian, right iliac stenting in 2018, chronic kidney disease, diabetes and hyperlipidemia. In August 2009, he had a hospitalization for atrial fibrillation with RVR. His Plavix was discontinued at that time and he was started on an anticoagulant. He underwent a stress test on 07/21/2022 which was negative for ischemia. His echocardiogram on 07/21/2022 demonstrated an ejection fraction of 60%, and no wall motion abnormality. He was diagnosed with throat cancer, he has recently finished radiation. From a cardiac standpoint, the patient is doing well. He denies any palpitations, chest pain, pressure or heaviness. He does have occasional SOB with exertion-this is nothing new or worsening. He denies Orthopnea, and PND. He does not have bleeding issues; no blood in urine, stool, or nosebleeds. He continues to feel fatigued-post radiation. He denies myalgias, or claudication. He does not have edema, or sudden weight gain. He denies lightheadedness, dizziness, syncopal or near syncopal episodes, and headaches. Intake Vital Signs 08/29/24 06:19 02/15/25 11:38 03/02/25 09:02 Height 5 ft 7 in 5 ft 7.5 in 5 ft 7.5 in Weight: 149 lb BMI 23.0 BP 107/69 Blood Pressure Location Lt brachial Position Sitting Respiration 18 Pulse 71 Pulse Source NIBP Intake Visit Reasons: 6 M Plate Corrector Required: No Accompanied by: Is patient in pain?: No Allergies Iodinated Contrast Media (iodine contrast) Adverse Reaction (Mild, Verified 03/02/25 09:18) Vomiting metformin Adverse Reaction (Verified 03/02/25 09:18) Nausea/Vom/Diarrhea Medications ???Medication ???Instructions ???Recorded ???Confirmed ???Type pregabalin 150 mg capsule 150 mg PO DAILY pain 11/06/1502/12 History warfarin 1 mg tablet 2 mg PO DAILY 02/22/24 03/02/25 Hi story albuterol sulfate 90 mcg/actuation 2 puff inhalation Q4 PRN wheezin g 10/13/24 03/02/25 History aerosol inhaler Have you fallen in the past year?: Yes PFSH Medical History (Reviewed 03/02/25 @ 12:29 by Jolynn Davenport RADIAL DRILL OPERATOR [employer], RADIAL DRILL OPERATOR [employer]-C) CPAP (continuous positive airway pressure) dependence Cancer Macular degeneration of right eye Carcinoma of epiglottis Smoker Wears hearing aid Wears dentures Alcohol use Ambulates with cane Neuropathy Back pain Blackout Difficulty swallowing Former smoker Shortness of breath on exertion Leg cramps History of edema Stroke/cerebrovascular accident History of atrial fibrillation History of echocardiogram History of stress test Cardiology follow-up encounter Chronic diastolic (congestive) heart failure Hypertension Acute on chronic diastolic (congestive) heart failure History of non-ST elevation myocardial infarction (NSTEMI) (11/02/19) Upper GI bleed (11/02/19) Paroxysmal atrial fibrillation History of CVA (cerebrovascular accident) (10/2015) Chronic renal failure Claudication Peripheral vascular occlusive disease Hyperlipidemia Atherosclerosis of coronary artery 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 Stenosis of left subclavian artery Anxiety and depression CKD (chronic kidney disease) DDD (degenerative disc disease) Marijuana use Narcolepsy Diabetic neuropathy Osteoarthritis Type 2 diabetes mellitus Lacunar infarct, acute Surgical History S/P percutaneous endoscopic gastrostomy (PEG) tube placement History of laryngoscopy History of cataract surgery History of colonoscopy History of cholecystectomy ( 10/2020) History of left heart catheterization (11/13/04) History of angioplasty of peripheral vessel (09/2018) Family History Brother Cancer lung Son Cancer Social History Smoking Status: Former smoker quit date: 09/14/97 Tobacco: How many years used: 45 how long ago did patient quit smokin years ago alcohol intake: current alcohol intake frequency: 0-2 drinks per day Alcohol type: hard liquor substance use type: marijuana caffeine: Yes Type: carbonated beverages (more content not included)... Normal [facility] LABORATORYOrdered By: Lupe flaherty on 02-24-2025 Glucose [Mass/Vol] 82 mg/dL Normal 82 - 115 mg/dL [facility] Work Phone: LABORATORYOrdered By: SYSTEM SYSTEM on 02-24-2025 INR Coag (PPP) [Relative time] 1.2 {INR} Invalid Interpretation Code [facility] Comment on above: Interpretive Data: [place] [employer] (CHEST, 1991, 102:312S-25S) recommended therapeutic range for oral anticoagulant therapy is: LOW RISK: Prophylaxis of venous thrombosis INR: 2.0-3.0 Treatment of pulmonary embolism 2.0-3.0 Prevention of systemic embolism 2.0-3.0 HIGH RISK: Mechanical prosthetic valves 2.5-3.5 PT Coag (PPP) [Time] 13.5 s Normal 9.0 - 1 4.4 seconds [facility] PROon 02-24-2025 PT Coag (PPP) [Time] 13.5 s Normal 9.0-14.4 [facility] Comment on above: Performed By: #### P RO #### [address] [address] PT International Ratio 1.2 Normal [facility] Comment on above: Result Comment: [employer] (CHEST, 1991, 102:312S-25S) recommended therapeutic range for oral anticoagulant therapy is: LOW RISK: Prophylaxis of venous thrombosis INR: 2.0-3.0 Treatment of pulmonary embolism 2.0-3.0 Prevention of systemic embolism 2.0-3.0 HIGH RISK: Mechanical prosthetic valves 2.5-3.5 Performed By: #### P RO #### [address] [address] XR FLUORO < 1HR TECH TIMEon 02-24-2025 XR FLUORO < 1HR TECH TIME ORIGINAL Images acquired, not reported on this accession number. Normal [facility] Radiation Oncology Visiton 0 02-15-2025 Radiation Oncology Visit [facility] [address] [place] [address] OFFICE VISIT Date of Service: 02/15/25 1128 MR#: [id number] Acct: [id number] Name: TYRELL REYES Rep #: [id number] : 1950 From: Riki Dl DO Age/Sex: 74/M Location: [facility] Status: Signed Intake Vital Signs 11/14/24 14:16 01/02/25 13:19 02/15/25 11:35 02/15/25 11:38 Height 5 ft 7.5 in 5 ft 7.5 in 5 ft 7.5 in 5 ft 7.5 in Weight: 152 lb 2 oz BMI 23.4 BP 144/76 H Blood Pressure Location Rt brachial Position Sitting Respiration 18 Pulse 82 Pulse Source Monitor Temp 98.2 F Temperature Source Temporal Artery Pulse Oximetry (%) 97 Oxygen Delivery Method room air Intake Visit Reasons: 3 MONTH H/N, REVIEW SCANS Is patient in pain?: Yes (back pain ) Allergies Iodinated Contrast Media (iodine contrast) Adverse Reaction (Mild, Verified 02/15/25 11:34) Vomiting metformin Adverse Reaction (Verified 02/15/25 11:34) Nausea/Vom/Diarrhea Medications ???Medication ???Instructions ???Recorded ???Confirmed ???Type pregabalin 150 mg capsule 150 mg PO DAILY pain 11/06/1501/06 History warfarin 1 mg tablet 2 mg PO DAILY 02/22/24 02/15/25 Hi story albuterol sulfate 90 mcg/actuation 2 puff inhalation Q4 PRN wheezin g 10/13/24 02/15/25 History aerosol inhaler Have you fallen in the past year?: No PFSH PFSH Medical History CPAP (continuous positive airway pressure) dependence Cancer Macular degeneration of right eye Carcinoma of epiglottis Smoker Wears hearing aid Wears dentures Alcohol use Ambulates with cane Neuropathy Back pain Blackout Difficulty swallowing Former smoker Shortness of breath on exertion Leg cramps History of edema Stroke/cerebrovascular accident History of atrial fibrillation History of echocardiogram History of stress test Cardiology follow-up encounter Chronic diastolic (congestive) heart failure Hypertension Acute on chronic diastolic (congestive) heart failure History of non-ST elevation myocardial infarction (NSTEMI) (11/02/19) Upper GI bleed (11/02/19) Paroxysmal atrial fibrillation History of CVA (cerebrovascular accident) (10/2015) Chronic renal failure Claudication Peripheral vascular occlusive disease Hyperlipidemia Atherosclerosis of coronary artery 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 Stenosis of left subclavian artery Anxiety and depression CKD (chronic kidney disease) DDD (degenerative disc disease) Marijuana use Narcolepsy Diabetic neuropathy Osteoarthritis Type 2 diabetes mellitus Lacunar infarct, acute Home Medications ???Medication ???Instructions ???Recorded ???Last Taken ???Type pregabalin 150 mg capsule 150 mg PO DAILY pain 11/06/1509/15 22:00 History warfarin 1 mg tablet 2 mg PO DAILY 02/22/24 10/30/24 Hi story albuterol sulfate 90 mcg/actuation 2 puff inhalation Q4 PRN wheezin g 10/13/24 Unknown History aerosol inhaler Allergy/AdvReac Type Severity Reaction Status Date / Time Iodinated Contrast Media AdvReac Mild Vomiting Verified 02/15/25 11:34 (iodine contrast) metformin AdvReac Nausea/Vom/ Verified 02/15/25 11:34 Diarrhea Family History Brother Cancer lung Son Cancer Surgical History S/P percutaneous endoscopic gastrostomy (PEG) tube placement History of laryngoscopy History of cataract surgery History of colonoscopy History of cholecystectomy ( 10/2020) History of left heart catheterization (11/13/04) History of angioplasty of peripheral vessel (09/2018) Social History Smoking Status: Former smoker quit date: 09/14/97 Tobacco: How many years used: 45 how long ago did patient quit smokin years ago alcohol intake: current alcohol intake frequency: 0-2 drinks per day Alcohol type: hard liquor substance use type: marijuana caffeine: Yes Type: carbonated beverages Number of servings: 1 Diagnosis: Tyrell Reyes is a 73-year-old male diagnosed with clinical stage NALINI (cT2 cN2c M0) 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 From 02/22/2024 ??? 04/01/2024 he received definitive radiation. History of Present Illness: 12/24/2023: Patient was evaluated by ENT.??? This demonstrated a mass on the laryngeal surface of the epiglottis.??? No apparent abnormality noted within the glottis or subglottis. 01/07/2024: CT neck with contrast was performed.??? This demonst (more content not included)... Normal [facility] CREATININE FINGERSTICKon CREATININE WB < 1.0 Normal 0.70-1.30 [facility] Comment on above: Performed By: #### L 9100.0200 ####[facility] [id number] [facility] [place], [address] EGFR WB > 60.0000 Normal >60 [facility] Comment on above: Performed By: #### L 9100.0200 ####[facility] [id number] [facility] [place], [address] Chest WITH Contraston 2024 Chest WITH Contrast [facility] Imaging Services [address] [place] [address] Chest WITH Contrast MR#: [id number] Acct: [id number] Name: TYRELL REYES Rep #: [id number] : 1950 M 74 From: Adilene cunningham MD PCP: Dr. Lexus Rivera, DO Status: REG CLI Study: Chest WITH Contrast Date of Exam: 02/13/25 Exam# [id number] Ordering Dr: Riki Lizama DO PROCEDURE: CHEST WITH CONTRAST 02/13/2025 REASON FOR EXAM: H N CANCER, IMAGING TECHNIQUE: Prone and supine chest CT with intravenous contrast, high resolution CT (HRCT) protocol. Coronal and Sagittal reconstruction series were provided. CONTRAST: Isovue-350 VOLUME: 100 mL Gauge IV One or more dose reduction techniques were used (e.g., Automated exposure control, adjustment of the mA and/or kV according to patient size, use of iterative reconstruction technique). RADIATION DOSE SUMMARY: CTDlvol: 10.06 mGy DLP: 985 mGycm COMPARISON: No prior imaging is provided at the time of interpretation. FINDINGS: Bilateral apical pleural-parenchymal thickening. Mild bilateral basilar interstitial pulmonary thickening. 4 mm nodule in the right middle lobe. Percutaneous gastrostomy tube is in good position. Cholelithiasis without acute cholecystitis. 4.5 cm left renal simple cyst. Moderate coronary artery calcifications. Normal enhancement of the main pulmonary artery and right and left pulmonary arteries. Normal enhancement of the bilateral peripheral pulmonary arteries. There is no demonstrated pulmonary embolism. Mild atheromatous plaques of the thoracic aorta and visualized great vessels. There is no demonstrated aortic dissection. Normal heart and pericardium. Normal mediastinum. Normal hilar regions. Normal visualized trachea and bronchi. Normal pleura. Normal remaining visualized upper abdomen. CT/Chest WITH Contrast IMPRESSION: Coronary artery calcification (CAC) is is present Bilateral apical pleural-parenchymal thickening. Mild bilateral basilar interstitial pulmonary thickening. 4 mm nodule in the right middle lobe. Correlation with prior imaging is helpful. Otherwise six- month follow-up exam is suggested. Percutaneous gastrostomy tube is in good position. Cholelithiasis without acute cholecystitis. 4.5 cm left renal simple cyst. Moderate coronary artery calcifications. Reading Location: [place] [address] CC: Dr. Lexus Rivera, DO; Dr. Riki Lizama, DO [employer] Worker: Signed Normal [facility] EGFROrdered By: Riki cunningham on 02-13-2025 GFR/1.73 sq M.predicted among non-blacks MDRD (S/P/Bld) [Vol rate/Area] mL/min/{1.73_m2} >60 [facility] International normalized rat io (INR) measurement by fingerstickOrdered By: Zhang Quick on 02-13-2025 INR Coag (BldC) [Relative time] 3.4 [facility] Comment on above: Critical Value > 4.0 Protime w/INR Fingerstickon 02-13-2025 INR Coag (PPP) [Relative time] 3.4 {INR} Normal [facility] Comment on above: Result Comment: Crit ical Value > 4.0 Performed By: #### L 300.4310, L100.1900, L300.3900 #### [facility] [address] [place], [place], [address] Protime Coagsen 34.4 SEC High 11.7-14.9 [facility] Comment on above: Performed By: #### L 300.4310, L100.1900, L300.3900 #### [facility] [address] [place], [place], [address] Soft Tissue Neck WITH Contra ston 02-13-2025 Soft Tissue Neck WITH Contrast [facility] Imaging Services [address] [place], [place] [address] Soft Tissue Neck WITH Contrast MR#: [id number] Acct: [id number] Name: TYRELL REYES Rep #: [id number] : 1950 M 74 From: Adilene cunningham MD PCP: Dr. Lexus Rivera DO Status: REG CLI Study: Soft Tissue Neck WITH Contrast Date of Exam: 0 02/13/25 Exam# [id number] Ordering Dr: Riki Lizama DO PROCEDURE: SOFT TISSUE NECK WITH CONTRAST 02/13/2025 REASON FOR EXAM: H N CANCER, TREATED TECHNIQUE: CT of the soft tissues of the neck from the orbits to the upper mediastinum with intravenous contrast. CONTRAST: Isovue-350 VOLUME: 100 mL Gauge IV One or more dose reduction techniques were used (e.g., Automated exposure control, adjustment of the mA and/or kV according to patient size, use of iterative reconstruction technique). RADIATION DOSE SUMMARY: CTDlvol: 10.06 mGy DLP: 359 mGycm COMPARISON: Not provided at the time of interpretation. FINDINGS: Bilateral calcified atheromatous plaques of the carotid arteries. Mild emphysema. Bilateral apical pleural parenchymal thickening. Moderate diffuse spondylosis. Endovascular stent is noted at the origin of the left subclavian artery. Calcified atheromatous plaques of the carotid arteries. Mild diffuse thickening of the submandibular fat, probably secondary to prior treatment. 4 mm left thyroid lobe nodule. Mild chronic mucosal inflammatory changes of the left ethmoid air cells. Normal bilateral parotid glands. Normal bilateral wool hat hydraulicker spaces. Normal bilateral parapharyngeal spaces. Normal bilateral carotid spaces. Normal bilateral sublingual and submandibular glands. Normal sublingual and submandibular spaces. Normal visualized nasopharynx. Normal retropharyngeal space. Normal perivertebral space. Normal visualized bilateral faucial tonsils. The visualized tongue, tongue base and oropharynx are normal. The visualized cervical lymph nodes (levels I-) are within normal size limits, and maintain normal morphology. There is no demonstrated solid or cystic mass lesion. There is no abnormal contrast enhancement. Normal epiglottis, bilateral vallecula and hypopharynx. The pre-epiglottic and paraglottic adipose spaces are normal. Normal visualized bilateral piriform sinuses, aryepiglottic folds, vocal cords, and arytenoid-cricoid articulations. Normal subglottic trachea. Normal remaining bilateral lobes of the thyroid gland. Normal remaining visualized paranasal sinuses. CT/Soft Tissue Neck WITH Contrast IMPRESSION: 1. No residual or recurrent mass lesion is identified. 2. 3. Bilateral calcified atheromatous plaques of the carotid arteries. 4. Mild emphysema. 5. Bilateral apical pleural parenchymal thickening. 6. Moderate diffuse spondylosis. 7. Endovascular stent is noted at the origin of the left subclavian artery. 8. Calcified atheromatous plaques of the carotid arteries. 9. Mild diffuse thickening of the submandibular fat, probably secondary to prior treatment. 10. 4 mm left thyroid lobe nodule. 11. Mild chronic mucosal inflammatory changes of the left ethmoid air cells. Reading Location: [place] [address] CC: Dr. Lexus Rivera, DO; Dr. Riki Lizama, DO [employer] Worker: Signed Normal [facility] Whole blood prothrombin time Ordered By: Zhang Quick on 02-13-2025 PT Coag (Bld) [Time] 34.4 s High 11.7-14.9 [facility] 12-27-2024 U Creatinine 98.3 mg/dL Normal [facility] Comment on above: Performed By: #### M ALBR #### [address] [address] U Microalb 37.8 mg/L Normal [facility] Comment on above: Performed By: #### M ALBR #### [address] [place], [place] [address] U Ratio Alb/Cre 38 mg/G High 0-30 [facility] Comment on above: Performed By: #### M ALBR #### [address] [place], [place] [address] SP/HP.Cristi 12-09-2024 SP/HP.DARIUS [facility] Speech Pathology [facility] [address] [place] [address] / REEVALUATION / MEDICARE RECERTIFICATION SPEECH THERAPY MR#: [id number] Acct: [id number] Name: TYRELL REYES Rep #: [id number] : 1950 74 From: Betsy Nguyen M.A., [facility]-DIRECTOR OF STATE Referring Dr.: Dr. Riki Lizama, Insurance: MEDICARE PART A B [facility] Visit History Visit Info Date of Eval: 02/11/24 Visit: 1 Rn Assessment: JORDYN History Attending Doctor: Referring Doctor: Reason for Referral: PHYSICAL DECONDITIONING. 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 04/01/2024: received definitive radiation therapy consisting of 6996 cGy delivered to the gross disease within the larynx and bilateral adenopathy, 5940 cGy delivered to the entire remaining larynx and bilateral neck and 5412 cGy to the high level 2 bilaterally and bilateral supraclavicular fossa all in 33 fractions???He was treated 6 fractions per week because he was not a candidate for chemotherapy.??? Dysphagia History secondary to SCC of supraglottic larynx: BSE with DIRECTOR OF STATE 02/11/24 revealed mild oropharyngeal dysphagia and recommended Regular textures / Thin liquids with compensatory strategies to decrease risk for aspiration. DIRECTOR OF STATE recommended MBSS prior to radiation treatment to further assess swallow function and aspiration risk. MBSS 02/15/24 revealed mild oral dysphagia, moderate pharyngoesophageal dysphagia and recommended the following: ???Diet: Regular Textures and Thin Liquids; Comment: STOP food/drink and resume later if concern for reflux, retention, or regurgitation, and resume food/drink at a later time. Compensatory Strategies: Small Bites, Small Sips (Cough and re-swallow after every 1-2 sips), Slow Rate, Sitting upright and Remain sitting upright for 60 minutes after PO intake.??? He followed w/ OP ST during and following radiation treatment to manage his dysphagia. FEES completed 05/28/2024 due to difficulty resuming an oral diet following treatment. FEES revealed mild oral dysphagia, moderate-severe pharyngeal dysphagia w/ moderate-severe edema of the oropharynx, hypopharynx, and larynx. FEES recommended thin liquids w/ use of compensatory strategies. Since study, he has continued to follow w/ ST and advanced to puree w/ some soft solids / thin liquids; however, due to significant silent aspiration w/ pudding on MBSS 06/2024, he resumed a full thin liquid diet. 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 He has had significant weight loss since January of 2024 and is currently 152.8lbs (down 35lbs since January 2024). DIRECTOR OF STATE recommended most recent MBSS on 10/21/2024 to reassess aspiration risk and to determine candidacy and starting level for participation in [facility]ann Dysphagia Therapy Program (MDTP), a high-intensity, evidence-based oropharyngeal exercise program aimed at systematically advancing oral intake of liquids and foods. MBSS revealed severe oropharyngeal dysphagia and recommended the following diet and strategies: Thin Liquids - Small Sips (By tsp or very small cup sips), Slow Rate, Multiple Swallows (Hard swallows) and Sitting upright. He was recommended for MDTP at the starting level of thin liquids via 5mL. Patient began MDTP 12/05/2024 and has participated in 5 sessions w/ diet advancement soft and bite size solids at home (completing ???homework??? with trials of easy to chew solids, recommended to stop if coughing). He is still consuming ???tsp size??? sips of thin liquids. He is recommended for repeat MBSS after 14-15 sessions of MDTP. Dysphagia History prior to SCC of supraglottic larynx: Hx of MBSS in 2014, which revealed mild pharyngoesophageal dysphagia. No follow up dysphagia therapy was completed. Over the years, he has felt that food/pills get caught in his throat. At times, he must ???bring food back up to get it back down.??? Other PMH: CHF, Carcinoma of epiglottis, Smoker, Wears hearing aid and dentures, Alcohol use, Neuropathy, Difficulty swallowing, Sleep apnea, Shortness of breath on exertion, A fib, Hx of CVA (10/2015), HTN, NSTEMI, Upper GI bleed, Chronic renal failure, HLD, Atherosclerosis of coronary artery 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, Stenosis of left subclavian artery, CKD, DDD, Marijuana use, Diabetic neuropathy, Osteoarthritis, DM type 2, See EMR for full PMH). Smoking Status: Former smoker Diag (more content not included)... Normal [facility] Pulmonary Visit Reporton Pulmonary Visit Report [facility] [place] 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 EBUS facilitated mediastinal lymph node sampling by Dr. Alba was negative for malignancy. This patient was discussed with Dr. Alba today and the recommendation is for him to continue to follow with oncology. (2) Nicotine dependence, cigarettes, in remission: Status: Chronic Plan: The patient has a longstanding tobacco abuse history, but quit smoking completely 30 years ago. PFT was grossly normal with the exception of a reduced gas transfer. When accounted for anemia the DLCO corrects from 44% to 60%. The patient does not require the use of supplemental oxygen at this time. Plan Details Follow Up: with oncology as planned HPI HPI Comments Details: Patient is a 74-year-old male who presents today to review recent testing. He was referred to this practice for mediastinal lymphadenopathy and to proceed with mediastinal lymph node sampling via EBUS. He is accompanied today by his spouse. He is ambulatory and currently on room air. 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 He is currently followed by Dr. Lizama on an outpatient basis. Recent pet imaging was completed which demonstrated resolution of the laryngeal and neck adenopathy. However, there was some interval progression noted in the thoracic perihilar regions with an SUV of 5.1. Therefore, the patient was referred to our office to be considered for mediastinal lymph node sampling via EBUS. The patient has an approximate [id number] smoking history, having quit completely 30 years ago. He has never been evaluated by a medical office rep, nor has he ever completed pulmonary function studies. The patient does not currently utilize any supplemental oxygen. He does have a known history of coronary artery disease, hypertension, peripheral arterial disease, chronic kidney disease, paroxysmal atrial fibrillation and diabetes. In addition to his personal smoking history, the patient did grow up in a smoking household. 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 He has never previously been diagnosed with asthma. He does report the presence of exertional shortness of breath along with occasional chest tightness. The patient is systemically anticoagulated on Coumadin. He receives all of his nutrition via his feeding tube. He takes nothing by mouth. His weight and appetite have been relatively stable. The patient denies wheeze and chest pain. He denies chest tightness. He does report occasional cough that is productive with milky clear to yellow sputum. He does have shortness of breath with exertion. He denies fever, chills, body aches. Documentation reviewed with patient today includes: PFT from October 28, 2024 which shows an isolated moderate reduction in diffusion capacity. 6-minute walk test from October 20, 2024 shows impaired walk distance but no significant exertional oxygen desaturation requiring the use of supplemental oxygen at this time. EBUS of mediastinal lymph node sampling from November 04, 2024 was negative. Intake Vital Signs 10/13/24 09:59 11/25/24 05:37 Height 5 ft 7 in 5 ft 7.5 in Weight: 150 lb BMI 23.1 BP 124/61 H Blood Pressure Location Lt brachial Position Sitting Respiration 18 Pulse 78 Pulse Source Monitor Temp 97.0 F L Temperature Source Temporal Artery Pulse Oximetry (%) 98 Oxygen Delivery Method room air Intake Visit Reasons: 6 wk FU Plate Corrector Required: No DME Vendor: dont use Accompanied by: Is patient in pain?: No Allergies Iodinated Contrast Media (iodine contrast) Adverse Reaction (Mild, Verified 11/25/24 08:56) Vomiting metformin Adverse Reaction (Verified 11/25/24 08:56) Nausea/Vom/Diarrhea Medications ???Medication ???Instructions ???Recorded ???Confirmed ???Type pregabalin 150 mg capsule 150 mg PO DAILY pain 11/06/1511/12 History warfarin 1 mg tablet 2 mg PO DAILY 02/22/24 11/25/24 Hi story albuterol sulfate 90 mcg/actuation 2 puff inhalation Q4 PRN wheezin g 10/13/24 11/25/24 History aerosol (more content not included)... Normal [facility] AST(SGOT)on 11-15-2024 AST [Catalytic activity/Vol] 24 U/L Normal <=37 [facility] Comment on above: Performed By: #### L 300.4310, L100.1900, L300.3900 #### [facility] [address] [place], [address] Alanine Aminotransferas (SGP T)on 11-15-2024 ALT [Catalytic activity/Vol] 19 U/L Normal <=46 [facility] Comment on above: Performed By: #### L 300.4310, L100.1900, L300.3900 #### [facility] [address] [place], [address] Albumin DL <= 20 mg/L (U) [M ass/Vol]Ordered By: Lexus Rivera on 11-15-2024 Urine Random Microalbumin 49.2 mg/L NO RANGE EST. [facility] Alkaline Phosphataseon 11-15 ALK PHOS 93 U/L Normal 40-129 [facility] Comment on above: Performed By: #### L 300.4310, L100.1900, L300.3900 #### [facility] [address] [place], [address] Anion gap in Serum or Plasma Ordered By: Lexus Rivera on 11-15-2024 Anion gap [Moles/Vol] 12 mmol/L 5-15 [facility] [place] BUN/creatinine ratioOrdered By: Lexus Rivera on 11-15-2024 Urea nitrogen/Creatinine [Mass ratio] 29.7 mg/mg High 10-20 [facility] Bilirubin directOrdered By: Lexus Rivera on 11-15-2024 Bilirubin.direct [Mass/Vol] 0.14 mg/dL 0.00-0.30 [facility] Bilirubin, Directon 11-16-19 25 Bilirubin.direct [Mass/Vol] 0.14 mg/dL Normal 0.00-0.30 [facility] Comment on above: Performed By: #### L 300.4310, L100.1900, L300.3900 #### [facility] [address] [place], [address] Bilirubin, totalOrdered By: Lexus Rivera on 11-15-2024 Bilirubin [Mass/Vol] 0.26 mg/dL 0.00-1.30 [facility] CBC-Complete Blood Cnt No Di ffon 11-15-2024 Erythrocyte distribution width (RBC) [Ratio] 13.7 % Normal 11.6-14.6 [facility] Comment on above: Performed By: #### L 300.4310, L100.1900, L300.3900 #### [facility] [address] [place], [address] Hematocrit (Bld) [Volume fraction] 31.9 % Low 40-54 [facility] Comment on above: Performed By: #### L 300.4310, L100.1900, L300.3900 #### [facility] [address] [place], [address] Hemoglobin (Bld) [Mass/Vol] 10.7 g/dL Low 13.0-16.5 [facility] Comment on above: Performed By: #### L 300.4310, L100.1900, L300.3900 #### [facility] [address] [place], [address] MCH (RBC) [Entitic mass] 32.3 pg High 27.0-32.0 [facility] Comment on above: Performed By: #### L 300.4310, L100.1900, L300.3900 #### [facility] [address] [place], [address] MCHC (RBC) [Mass/Vol] 33.5 g/dL Normal 32-36 [facility] [place] Comment on above: Performed By: #### L 300.4310, L100.1900, L300.3900 #### [facility] [address] [place], [address] MCV (RBC) [Entitic vol] 96.4 fL High 80-94 [facility] Comment on above: Performed By: #### L 300.4310, L100.1900, L300.3900 #### [facility] [address] [place], [address] Platelet mean volume (Bld) [Entitic vol] 10.2 fL Normal 6.2-12.0 [facility] Comment on above: Performed By: #### L 300.4310, L100.1900, L300.3900 #### [facility] [address] [place], [address] Platelets (Bld) [#/Vol] 187 10*3/uL Normal 150-450 [facility] Comment on above: Performed By: #### L 300.4310, L100.1900, L300.3900 #### [facility] [address] [place], [address] RBC (Bld) [#/Vol] 3.31 10*6/uL Low 4.6-6.2 [facility] Comment on above: Performed By: #### L 300.4310, L100.1900, L300.3900 #### [facility] [address] [place], [address] RDW SD 48.3 fl High 35.1-43.9 [facility] Comment on above: Performed By: #### L 300.4310, L100.1900, L300.3900 #### [facility] [address] [place], [address] WBC (Bld) [#/Vol] 5.2 10*3/uL Normal 4.4-11.0 [facility] Comment on above: Performed By: #### L 300.4310, L100.1900, L300.3900 #### [facility] [address] [place], [address] Calculated very low density lipoprotein (VLDL) cholesterol measurementOrdered By: Lexus Rivera on 11-15-2024 Calculated very low density lipoprotein (VLDL) cholesterol measurement 40 mg/dL 5-40 [facility] VLDL Cholesterol 40 mg/dL 5-40 [facility] Carbon dioxide, total [Moles /volume] in Central venous bloodOrdered By: Lexus Rivera on 11-15-2024 CO2 [Moles/Vol] 27.5 mmol/L 21.0-32.0 [facility] Chloride assayOrdered By: Rahel Rivera on 11-15-2024 Chloride [Moles/Vol] 101 mmol/L 98-108 [facility] Creatinine Unsp time (U) [Ma ss/Vol]Ordered By: Lexus Rivera on 11-15-2024 Creatinine (U) [Mass/Vol] 213.00 mg/dL 39-259 [facility] Erythrocyte distribution wid th ratioOrdered By: Lexus Rivera on 11-15-2024 Erythrocyte distribution width (RBC) [Ratio] 13.7 % 11.6-14.6 [facility] Erythrocyte distribution wid th standard deviationOrdered By: Lexus Rivera on 11-15-2024 Erythrocyte distribution width (RBC) [Entitic vol] 48.3 fL High 35.1-43.9 [facility] Erythrocyte distribution width (RBC) [Ratio] 48.3 fl High 35.1-43.9 [facility] GFR/1.73 sq M.predicted lisa g non-blacks MDRD (S/P/Bld) [Vol rate/Area]Ordered By: Lexus Rivera on 11-15-2024 Estimated GFR (MDRD) Non-Af Amer 47 Low >60 [facility] Comment on above: mL/min/1.73m2 CKD-EP I Creatinine Equation (2020) Glomerular filtration rate ( GFR) estimation/1.73 sq m using serum, plasma, or whole bOrdered By: Lexus Rivera on 11-15-2024 GFR/1.73 sq M.predicted among non-blacks MDRD (S/P/Bld) [Vol rate/Area] 47 mL/min/{1.73_m2} Low >60 [facility] Comment on above: mL/min/1.73m2 CKD-EP I Creatinine Equation (2020) Hematocrit Auto (Bld) [Volum e fraction]Ordered By: Lexus Rivera on 11-15-2024 Hematocrit (Bld) [Volume fraction] 31.9 % Low 40-54 [facility] Hemoglobin measurementOrdere d By: Lexus Rivera on 11-15-2024 Hemoglobin (Bld) [Mass/Vol] 10.7 g/dL Low 13.0-16.5 [facility] L506.1001on 11-15-2024 Vitamin D 25-OH 73.0 ng/mL Normal 30-100 [facility] Comment on above: Result Comment: Mari min D Status Deficiency: <20 ng/mL (50nmol/L) Insufficiency: 20-30 ng/mL (50-75 nmol/L) Sufficiency: 30-100 ng/mL (75-250 nmol/L) Toxicity: >100 ng/mL (>250 nmol/L) Performed By: #### L 300.4310, L100.1900, L300.3900 #### [facility] [address] [place], [address] LDL calc ser/plasOrdered By: Lexus Rivera on 11-15-2024 Cholesterol in LDL [Mass/Vol] 72 mg/dL [facility] Comment on above: Axpryljiiz=602-047 m g/dL & Higher Qyax=594 mg/dL or greater LDL Cholesterol, Calculated 72 mg/dL [facility] Comment on above: Tvgsnhmvpk=326-264 m g/dL & Higher Msuv=463 mg/dL or greater Laboratory - Chemistry and C hemistry - challengeOrdered By: Lexus Rivera on 11-15-2024 AST [Catalytic activity/Vol] 24 U/L <38 [facility] Lipid Profileon 11-15-2024 CHOL:HDL 4.01 Normal [facility] Comment on above: Performed By: #### L 300.4310, L100.1900, L300.3900 #### [facility] [address] [place], [address] Cholesterol [Mass/Vol] 150 mg/dL Normal <=200 [facility] Comment on above: Result Comment: Chol esterol level, Desirable <200 mg/dL Borderline high cholesterol 200-239 mg/dL High cholesterol >=240 mg/dL Recommendations of the NCEP Adult Treatment Panel for the following risk-cutoff thresholds for the [place] population. Performed By: #### L 300.4310, L100.1900, L300.3900 #### [facility] [address] [place], [address] Cholesterol in HDL [Mass/Vol] 37 mg/dL Low [facility] Comment on above: Result Comment: Shaina onal Cholesterol Education Program (NCEP) guidelines: <40 mg/dL: Low HDL-cholesterol (major risk factor for CHD) >= 60 mg/dL: High HDL-cholesterol (negative risk factor for CHD) HDL-cholesterol is affected by a number of factors, e.g. smoking, exercise, hormones, sex and age. Performed By: #### L 300.4310, L100.1900, L300.3900 #### [facility] [address] [place], [address] Cholesterol in LDL [Mass/Vol] 72 mg/dL Normal [facility] Comment on above: Result Comment: Bord tiexmo=945-301 mg/dL Higher Hpoj=458 mg/dL or greater Performed By: #### L 300.4310, L100.1900, L300.3900 #### [facility] [address] [place], [address] Cholesterol in VLDL [Mass/Vol] 40 mg/dL Normal 5-40 [facility] Comment on above: Performed By: #### L 300.4310, L100.1900, L300.3900 #### [facility] [address] [place], [address] Triglyceride [Mass/Vol] 201 mg/dL High [facility] Comment on above: Result Comment: The drugs N-Acetylcysteine and Metamizole may falsely depress this assay. Normal range: <150 mg/dL Borderline High: 150-199 mg/dL High: 200-499 mg/dL Very High: >500 mg/dL Performed By: #### L 300.4310, L100.1900, L300.3900 #### [facility] [address] [place], [address] MCV (mean corpuscular volume ) determinationOrdered By: Lexus Rivera on 11-15-2024 MCV (RBC) [Entitic vol] 96.4 fL High 80-94 [facility] Mean corpuscular hemoglobin (MCH) determinationOrdered By: Lexus Rivera on 11-15-2024 MCH (RBC) [Entitic mass] 32.3 pg High 27.0-32.0 [facility] Mean corpuscular hemoglobin concentration (MCHC) determinationOrdered By: Lexus Rivera on 11-15-2024 MCHC (RBC) [Mass/Vol] 33.5 g/dL 32-36 [facility] [place] Mean platelet volume determi nationOrdered By: Lexus Rivera on 11-15-2024 Platelet mean volume (Bld) [Entitic vol] 10.2 fL 6.2-12.0 [facility] Microalbumin/creat ratio urO rdered By: Lexus Rivera on 11-15-2024 Urine Microalbumin/Creatinine Ratio 231.0 mg/g CRE [facility] Platelet countOrdered By: Rahel Rivera on 11-15-2024 Platelets (Bld) [#/Vol] 187 10*3/uL 150-450 [facility] Potassium (Unsp spec) [Mass/ Vol]Ordered By: Lexus Rivera on 11-15-2024 Potassium [Moles/Vol] 4.5 mmol/L 3.3-5.1 [facility] [place] Potassium measurement (mass/ volume)Ordered By: Lexus Rivera on 11-15-2024 Potassium (Unsp spec) [Mass/Vol] 4.5 mmol/L 3.3-5.1 [facility] Protein, Totalon 11-15-2024 Albumin/Globulin [Mass ratio] 1.1 {ratio} Normal 0.9-2.4 [facility] Comment on above: Performed By: #### L 300.4310, L100.1900, L300.3900 #### [facility] [address] [place], [address] Globulin (S) [Mass/Vol] 3.6 g/dL Normal 2.2-4.2 [facility] Comment on above: Performed By: #### L 300.4310, L100.1900, L300.3900 #### [facility] [address] [place], [address] T PROT 7.5 g/dL Normal 5.9-8.4 [facility] Comment on above: Performed By: #### L 300.4310, L100.1900, L300.3900 #### [facility] [address] [place], [address] RBC Auto (Bld) [#/Vol]Ordere d By: Lexus Nicole on 11-15-2024 RBC (Bld) [#/Vol] 3.31 10*6/uL Low 4.6-6.2 [facility] Random urine creatinine acacia urement (mass/volume)Ordered By: Lexus Rivera on 11-15-2024 Creatinine Unsp time (U) [Mass/Vol] 213.00 mg/dL 39-259 [facility] Renal Profileon 11-15-2024 Albumin [Mass/Vol] 3.9 g/dL Normal 3.4-4.8 [facility] Comment on above: Performed By: #### L 300.4310, L100.1900, L300.3900 #### [facility] [address] [place], [address] BUN/CRE 29.7 RATIO High 10-20 [facility] Comment on above: Performed By: #### L 300.4310, L100.1900, L300.3900 #### [facility] [address] [place], [address] Calcium [Mass/Vol] 9.5 mg/dL Normal 7.6-11.0 [facility] Comment on above: Performed By: #### L 300.4310, L100.1900, L300.3900 #### [facility] [address] [place], [address] Chloride [Moles/Vol] 101 mmol/L Normal 98-108 [facility] Comment on above: Performed By: #### L 300.4310, L100.1900, L300.3900 #### [facility] [address] [place], [address] CO2 [Moles/Vol] 27.5 mmol/L Normal 21.0-32.0 [facility] Comment on above: Performed By: #### L 300.4310, L100.1900, L300.3900 #### [facility] [address] [place], [address] Creatinine [Mass/Vol] 1.54 mg/dL High 0.70-1.20 [facility] Comment on above: Performed By: #### L 300.4310, L100.1900, L300.3900 #### [facility] [address] [place], [address] GAP 12 Normal 5-15 [facility] Comment on above: Performed By: #### L 300.4310, L100.1900, L300.3900 #### [facility] [address] [place], [address] GFR/1.73 sq M.predicted among non-blacks MDRD (S/P/Bld) [Vol rate/Area] 47 mL/min/{1.73_m2} Low >60 [facility] Comment on above: Result Comment: mL/m in/1.73m2 CKD-EPI Creatinine Equation (2020) Performed By: #### L 300.4310, L100.1900, L300.3900 #### [facility] [address] [place], [address] Glucose [Mass/Vol] 104 mg/dL High 70-99 [facility] Comment on above: Performed By: #### L 300.4310, L100.1900, L300.3900 #### [facility] [address] [place], [address] Phosphate [Mass/Vol] 4.0 mg/dL Normal 2.7-4.5 [facility] Comment on above: Performed By: #### L 300.4310, L100.1900, L300.3900 #### [facility] [address] [place], [address] Potassium [Moles/Vol] 4.5 mmol/L Normal 3.3-5.1 [facility] Comment on above: Performed By: #### L 300.4310, L100.1900, L300.3900 #### [facility] [address] [place], [address] Sodium [Moles/Vol] 140 mmol/L Normal 133-145 [facility] Comment on above: Performed By: #### L 300.4310, L100.1900, L300.3900 #### [facility] [address] [place], [address] Urea nitrogen [Mass/Vol] 46 mg/dL High 4-19 [facility] Comment on above: Performed By: #### L 300.4310, L100.1900, L300.3900 #### [facility] [address] [place], [address] Screening total cholesterol/ high density lipoprotein (HDL) cholesterol ratioOrdered By: Lexus Rivera on 11-15-2024 Cholesterol.total/Elvira sterol in HDL [Mass ratio] 4.01 {ratio} [facility] Serum creatinine measurement (mass/volume)Ordered By: Lexus Rivera on 11-15-2024 Creatinine [Mass/Vol] 1.54 mg/dL High 0.70-1.20 [facility] Serum globulin measurementOr dered By: Lexus Rivera on 11-15-2024 Globulin (S) [Mass/Vol] 3.6 g/dL 2.2-4.2 [facility] Serum glucose measurement (m ass/volume)Ordered By: Lexus Rivera on 11-15-2024 Glucose [Mass/Vol] 104 mg/dL High 70-99 [facility] Serum or plasma alanine cohen otransferase (ALT) measurementOrdered By: Lexus Rivera on 11-15-2024 ALT [Catalytic activity/Vol] 19 U/L <47 [facility] Serum or plasma albumin acacia urement (mass/volume)Ordered By: Lexus Rivera on 11-15-2024 Albumin [Mass/Vol] 3.9 g/dL 3.4-4.8 [facility] Serum or plasma albumin/glob ulin mass ratioOrdered By: Lexus Rivera on 11-15-2024 Albumin/Globulin [Mass ratio] 1.1 {ratio} 0.9-2.4 [facility] Serum or plasma alkaline yumiko sphatase measurementOrdered By: Lexus Rivera on 11-15-2024 ALP [Catalytic activity/Vol] 93 U/L 40-129 [facility] Serum or plasma calcium acacia urement (mass/volume)Ordered By: Lexus Rivera on 11-15-2024 Calcium [Mass/Vol] 9.5 mg/dL 7.6-11.0 [facility] Serum or plasma cholesterol in HDL measurement (mass/volume)Ordered By: Lexus Rivera on 11-15-2024 Cholesterol in HDL [Mass/Vol] 37 mg/dL Low >40 [facility] Comment on above: National Cholesterol Education Program (NCEP) guidelines:<40 mg/dL: Low HDL-cholesterol (major risk factor for CHD)>= 60 mg/dL: High HDL-cholesterol (negative risk factor for CHD)HDL-cholesterol is affected by a number of factors, e.g. smoking, exercise, hormones, sex and age. Serum or plasma cholesterol measurement (mass/volume)Ordered By: Lexus Rivera on 11-15-2024 Cholesterol [Mass/Vol] 150 mg/dL <201 [facility] Comment on above: Cholesterol level, D esirable <200 mg/dLBorderline high cholesterol 200-239 mg/dLHigh cholesterol >=240 mg/dLRecommendations of the NCEP Adult Treatment Panel for the following risk-cutoff thresholds for the [place] population. Serum or plasma urea nitroge n measurement (mass/volume)Ordered By: Lexus Rivera on 11-15-2024 Urea nitrogen [Mass/Vol] 46 mg/dL High 4-19 [facility] Serum phosphorus measurement Ordered By: Lexus Rivera on 11-15-2024 Phosphorus Level 4.0 mg/dL 2.7-4.5 [facility] Sodium levelOrdered By: Zhao Rivera on 11-15-2024 Sodium [Moles/Vol] 140 mmol/L 133-145 [facility] T4 Free Directon 11-15-2024 T4 FREE DIRECT 1.20 ng/dL Normal 0.76-1.46 [facility] Comment on above: Performed By: #### L 300.4310, L100.1900, L300.3900 #### [facility] [address] [place], [address] T4 freeOrdered By: Lexus basurto on 11-15-2024 Free T4 [Mass/Vol] 1.20 ng/dL 0.76-1.46 [facility] TSH DL <= 0.005 mIU/L QnOrde red By: Lexus Rivera on 11-15-2024 Thyroid Stimulating Hormone (TSH) 2.060 uIU/mL 0.300-4.200 [facility] TSH Qn 2.060 uIU/mL 0.300-4.200 [facility] Thyroid Stim Hormone (TSH)on 11-15-2024 TSH 2.060 uIU/mL Normal 0.300-4.200 [facility] Comment on above: Performed By: #### L 300.4310, L100.1900, L300.3900 #### [facility] [address] [place], [address] Total Bilirubinon 11-15-2024 Bilirubin [Mass/Vol] 0.26 mg/dL Normal 0.00-1.30 [facility] Comment on above: Performed By: #### L 300.4310, L100.1900, L300.3900 #### [facility] [address] [place], [address] Total proteinOrdered By: Cecilio Rivera on 11-15-2024 Protein [Mass/Vol] 7.5 g/dL 5.9-8.4 [facility] Triglycerides measurementOrd ered By: Lexus Rivera on 11-15-2024 Triglyceride [Mass/Vol] 201 mg/dL High <199 [facility] Comment on above: The drugs N-Acetylcy steine and Metamizole may falsely depress this assay. Normal range: <150 mg/dLBorderline High: 150-199 mg/dLHigh: 200-499 mg/dLVery High: >500 mg/dL Urine albumin measurement wi th detection limit of 20 mg/L or less (mass/volume)Ordered By: Lexus Rivera on 11-15-2024 Albumin DL <= 20 mg/L (U) [Mass/Vol] 49.2 mg/L NO RANGE EST. [facility] Vitamin D, 25-hydroxyOrdered By: Lexus Rivera on 11-15-2024 Vitamin D 25-Hydroxy 73.0 ng/mL 30-100 [facility] Comment on above: Vitamin D StatusDefi ciency: <20 ng/mL (50nmol/L)Insufficiency: 20-30 ng/mL (50-75 nmol/L)Sufficiency: 30-100 ng/mL (75-250 nmol/L)Toxicity: >100 ng/mL (>250 nmol/L) White blood cell (WBC) count Ordered By: Lexus Rivera on 11-15-2024 WBC (Bld) [#/Vol] 5.2 10*3/uL 4.4-11.0 [facility] Radiation Oncology Visiton 0 11-14-2024 Radiation Oncology Visit [facility] [address] [place] [address] OFFICE VISIT Date of Service: 11/14/24 1003 MR#: [id number] Acct: [id number] Name: TYRELL REYES Bebo Rep #: [id number] : 1950 From: Riki Dl DO Age/Sex: 73/M [place] [facility] [place]: Signed Intake Vital Signs 10/13/24 09:59 11/12/24 07:29 11/14/24 10:06 Height 5 ft 7 in 5 ft 7.5 in 5 ft 7.5 in Weight: 152 lb 6 oz BMI 23.5 BP 121/68 H Blood Pressure Location Rt brachial Position Sitting Respiration 18 Pulse 75 Pulse Source Monitor Temp 97.3 F L Temperature Source Temporal Artery Pulse Oximetry (%) 100 Oxygen Delivery Method room air Intake Visit Reasons: REVIEW BIOPSY RESULTS Is patient in pain?: No Allergies Iodinated Contrast Media (iodine contrast) Adverse Reaction (Mild, Verified 11/14/24 10:06) Vomiting metformin Adverse Reaction (Verified 11/14/24 10:06) Nausea/Vom/Diarrhea Medications ???Medication ???Instructions ???Recorded ???Confirmed ???Type pregabalin 150 mg capsule 150 mg PO DAILY pain 11/06/15/12/06 History warfarin 1 mg tablet 2 mg PO DAILY 02/22/24 11/14/24 Hi story albuterol sulfate 90 mcg/actuation 2 puff inhalation Q4 PRN wheezin g 10/13/24 11/14/24 History aerosol inhaler Have you fallen in the past year?: Yes PFSH PFSH Medical History CPAP (continuous positive airway pressure) dependence Cancer Macular degeneration of right eye Carcinoma of epiglottis Smoker Wears hearing aid Wears dentures Alcohol use Ambulates with cane Neuropathy Back pain Blackout Difficulty swallowing Former smoker Shortness of breath on exertion Leg cramps History of edema Stroke/cerebrovascular accident History of atrial fibrillation History of echocardiogram History of stress test Cardiology follow-up encounter Chronic diastolic (congestive) heart failure Hypertension Acute on chronic diastolic (congestive) heart failure History of non-ST elevation myocardial infarction (NSTEMI) (11/02/19) Upper GI bleed (11/02/19) Paroxysmal atrial fibrillation History of CVA (cerebrovascular accident) (10/2015) Chronic renal failure Claudication Peripheral vascular occlusive disease Hyperlipidemia Atherosclerosis of coronary artery 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 Stenosis of left subclavian artery Anxiety and depression CKD (chronic kidney disease) DDD (degenerative disc disease) Marijuana use Narcolepsy Diabetic neuropathy Osteoarthritis Type 2 diabetes mellitus Lacunar infarct, acute Home Medications ???Medication ???Instructions ???Recorded ???Last Taken ???Type pregabalin 150 mg capsule 150 mg PO DAILY pain 11/06/1509/15 22:00 History warfarin 1 mg tablet 2 mg PO DAILY 02/22/24 10/30/24 Hi story albuterol sulfate 90 mcg/actuation 2 puff inhalation Q4 PRN wheezin g 10/13/24 Unknown History aerosol inhaler Allergy/AdvReac Type Severity Reaction Status Date / Time Iodinated Contrast Media AdvReac Mild Vomiting Verified 11/14/24 10:06 (iodine contrast) metformin AdvReac Nausea/Vom/ Verified 11/14/24 10:06 Diarrhea Family History Brother Cancer lung Son Cancer Surgical History S/P percutaneous endoscopic gastrostomy (PEG) tube placement History of laryngoscopy History of cataract surgery History of colonoscopy History of cholecystectomy ( 10/2020) History of left heart catheterization (11/13/04) History of angioplasty of peripheral vessel (09/2018) Social History Smoking Status: Former smoker quit date: 09/14/97 Tobacco: How many years used: 45 how long ago did patient quit smokin years ago alcohol intake: current alcohol intake frequency: 0-2 drinks per day Alcohol type: hard liquor substance use type: marijuana caffeine: Yes Type: carbonated beverages Number of servings: 1 Diagnosis: Tyrell Reyes is a 73-year-old male diagnosed with clinical stage NALINI (cT2 cN2c M0) 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 From 02/22/2024 ??? 04/01/2024 he received definitive radiation. History of Present Illness: 12/24/2023: Patient was evaluated by ENT.??? This demonstrated a mass on the laryngeal surface of the epiglottis.??? No apparent abnormality noted within the glottis or subglottis. 01/07/2024: CT neck with contrast was performed.??? This demonstrated a suggestion of thickening of the epiglottis especial (more content not included)... Normal [facility] Bedside Glucoseon 11-04-2024 FINGERSTICK GLU 79 mg/dL Normal 74-106 [facility] Comment on above: Result Comment: JLUIS CABRERA OF PATIENT CARE PER NURSING PROTOCOL Performed By: #### L 9200.0000 #### [facility] [address] [place], [address] Bronchoscopy Reporton 2024 Bronchoscopy Report [facility] Medical Records Department [address] [place] [address] Bronchoscopy Report MR#: [id number] Acct: [id number] Name: TYRELL REYES Rep #: [id number] : 1950 73 From: Terence Alba DO PCP: Dr. Lexus Rivera, DO Status:[facility] Patient Name: Tyrell Reyes Procedure Date: 11/04/2024 10:39 AM Date of : 1950 Age: 73 Procedure: Bronchoscopy Indications: Mediastinal adenopathy Providers: Terence Alba MD Referring MD: Terence Alba MD Medicines: See the Anesthesia note for documentation of the administered medications Complications: No immediate complications Procedure: Pre-Anesthesia Assessment: - A History and Physical has been performed. Patient meds and allergies have been reviewed. The risks and benefits of the procedure and the sedation options and risks were discussed with the patient. All questions were answered and informed consent was obtained. Patient identification and proposed procedure were verified prior to the procedure by the physician and the nurse in the procedure room. Mental Status Examination: alert and oriented. Airway Examination: normal oropharyngeal airway. Respiratory Examination: poor air movement. CV Examination: normal. ASA Grade Assessment: II - A patient with mild systemic disease. After reviewing the risks and benefits, the patient was deemed in satisfactory condition to undergo the procedure. The anesthesia plan was to use general anesthesia. Immediately prior to administration of medications, the patient was re-assessed for adequacy to receive sedatives. The heart rate, respiratory rate, oxygen saturations, blood pressure, adequacy of pulmonary ventilation, and response to care were monitored throughout the procedure. The physical status of the patient was re-assessed after the procedure. After I obtained informed consent, the scope was passed under direct vision. Throughout the procedure, the patient's blood pressure, pulse, and oxygen saturations were monitored continuously. The bronchoscope was introduced through the mouth, via the endotracheal tube and advanced to the tracheobronchial tree. The ultrasound bronchoscope was introduced through the mouth, via the endotracheal tube and advanced to the tracheobronchial tree. The procedure was accomplished without difficulty. The patient tolerated the procedure well. Findings: The laryngeal mask airway is in good position. The vocal cords appear normal. The subglottic space is normal. The trachea is of normal caliber. The fredy is sharp. The tracheobronchial tree was examined to at least the first subsegmental level. Bronchial mucosa and anatomy are normal; there are no endobronchial lesions. Scant bilateral mucoid secretions were noted. The scope was withdrawn and replaced with the EBUS bronchoscope to accomplish the ultrasound examination. Lymph Nodes: An endobronchial ultrasound endoscope was utilized to systematically examine the right hilar region (level 10R), right superior interlobar region (level 11Rs) and left interlobar region (level 11L) in order to assist with guiding the biopsy needle. Lymph node sizing was performed via endobronchial ultrasound. Sampling by transbronchial needle aspiration was also performed using an Olympus ViziShot 2 21 gauge needle in the right hilar region (level 10R), right superior interlobar region (level 11Rs) and left interlobar region (level 11L) and sent for routine cytology. - The 10R (hilar) node was evaluated. Three samples with the needle were obtained. - The 11Rs (superior interlobar) node was evaluated. Two samples with the needle were obtained. - The 11L (interlobar) node was evaluated. Two samples with the needle were obtained. Impression: - Mediastinal adenopathy - The airway examination was normal. - Endobronchial ultrasound was performed. - Lymph node sampling was performed. Recommendation: - Await biopsy results. Procedure Code(s): --- Professional --- 20942, Bronchoscopy, rigid or flexible, including fluoroscopic guidance, when performed; with endobronchial ultrasound (EBUS) guided transtracheal and/or transbronchial sampling (eg, aspiration[s]/biopsy[ies ]), 3 or more mediastinal and/or hilar lymph node stations or structures Diagnosis Code(s): --- Professional --- R59.0, Localized enlarged lymph nodes R09.89, Other specified symptoms and signs involving the circulatory and respiratory systems CPT copyright 2021 [employer]. All rights reserved. The codes documented in this report are preliminary and upon donkey ride operator review may be revised to meet current compliance requirements. DO Terence Mora MD 11/04/2024 11:53:11 AM This report has been signed electronically. Number of Addenda: 0 Note Initiated On: 11/04/2024 10:39 AM 11/04/24 1153 Date ____ (more content not included)... Normal [facility] Glucose measurement at bedsi deOrdered By: Terence Alba on 11-04-2024 Bedside Glucose (Misc Panel) 79 mg/dL 74-106 [facility] Comment on above: MANAGEMENT OF PATIEN T CARE PER NURSING PROTOCOL Glucose [Mass/Vol] 79 mg/dL 74-106 [facility] Comment on above: MANAGEMENT OF PATIEN T CARE PER NURSING PROTOCOL INR Coag (BldC) [Relative ti me]Ordered By: Terence Alba on 11-04-2024 INR Coag (Bld) [Relative time] 1.1 {INR} [facility] Comment on above: Critical Value > 4.0 International normalized rat io (INR) measurement by fingerstickOrdered By: Terence Alba on 11-04-2024 INR Coag (BldC) [Relative time] 1.1 [facility] Comment on above: Critical Value > 4.0 MR/POSTOP.ANEon 11-04-2024 MR/POSTOP.[facility] Medical Records Department [address] [place] [address] Anesthesia Postop Eval I 11/04/24 1157 MR#: [id number] Acct: [id number] Name: TYRELL REYES Rep #: [id number] : 1950 73 From: Sadaf Ott PCP: Dr. Lexus Rivera, DO Status:[facility] Y Race: C Location: EN Anesthesia: Postop Eval I Current Vital Signs Temperature: 96.5 F Pulse Rate: 55 Blood Pressure: 94/51 Respiratory Rate: 18 Pulse Ox: 97 Assessment Airway patent: Yes Spontaneous unlabored respirations: Yes nausea: No Vomiting: No Anesthesia Complication: No Fluid Hydration Crystalloid volume administer (ml): 0 Total IV fluid infused: 0 Progress Note Anesthesia document: Postop Eval 1 completed: Yes 11/04/24 1302 Date Sadaf Goodrich Signature: Date CC: Signed Normal [facility] [id number] 11-04-2024 MR/POSTOPAN2 [facility] Medical Records Department [address] [place] [address] Anesthesia Postop Eval II 11/04/24 1303 MR#: [id number] Acct: [id number] Name: TYRELL REYES Rep #: [id number] : 1950 73 From: Sadaf Ott PCP: Dr. Lexus Rivera, DO Status:[facility] Y Race: C Location: EN Anesthesia Postop Eval I Sum Postop Eval Completion status Anesthesia document: Postop Eval 1 completed: Yes Anesthesia Postop Eval I Summary Anesthesia Postop Eval I Summary: Anesthesia Postop Eval I: Assessment Summary Airway patent Yes 11/04/24 13:02 SUPERVISOR NURSE.CSIR Spontaneous unlabored Yes 11/04/24 13:02 SUPERVISOR NURSE.CSIR respirations Mental status nausea No 11/04/24 13:02 SUPERVISOR NURSE.CSIR Vomiting No 11/04/24 13:02 SUPERVISOR NURSE.CSIR Anesthesia Postop Eval I: Fluid Summary Crystalloid volume administer 0 11/04/24 13:02 SUPERVISOR NURSE.CSIR (ml) Colloids volume administered ( ml) Blood Product volume administered (ml) Total IV fluid infused 0 11/04/24 13:02 SUPERVISOR NURSE.CSIR Anesthesia Postop Eval I: Summary Notes Anesthesia Complication No 11/04/24 13:02 SUPERVISOR NURSE.CSIR Anesthesia Complication Comment: Post-operative progress note Anesthesia: Postop Eval II Evaluation Mental status: Awake Pain Level: 0 nausea: No Vomiting: No 11/04/24 1303 Date Sadaf Goodrich Signature: Date CC: Signed Normal [facility] PT Coag (Hossein) [Time]Ordered By: Terence Alba on 11-04-2024 Bedside Prothrombin Time 13.3 SEC 11.7-14.9 [facility] Protein+Creatinine Ratio,Uri neon 11-04-2024 PROT:CRE RATIO 652 mg/g CRE High 0-200 [facility] Comment on above: Result Comment: UTO PT BRINGING BACK Performed By: #### L 300.4310, L100.1900, L300.3900 #### [facility] [address] [place], [address] Protein (U) [Mass/Vol] 24.9 mg/dL High <11.9 [facility] Comment on above: Result Comment: UTO PT BRINGING BACK Performed By: #### L 300.4310, L100.1900, L300.3900 #### [facility] [address] [place], [address] UR CREAT 38.20 mg/dL Normal NO RANGE EST. [facility] Comment on above: Result Comment: UTO PT BRINGING BACK Performed By: #### L 300.4310, L100.1900, L300.3900 #### [facility] [address] [place], [address] Protime w/INR Fingerstickon 11-04-2024 INR Coag (PPP) [Relative time] 1.1 {INR} Normal [facility] Comment on above: Result Comment: Crit ical Value > 4.0 Performed By: #### L 300.4310, L100.1900, L300.3900 #### [facility] [address] [place], [address] Protime Coagsen 13.3 SEC Normal 11.7-14.9 [facility] Comment on above: Performed By: #### L 300.4310, L100.1900, L300.3900 #### [facility] [address] [place], [address] Special Stain Group IIon Special Stain Group II ------- Patient Age/Sex Location Account Attending Physician TYRELL REYES 73/M EN [id number] Dr. Terence Alba DO Specimen: [id number] Received: 11/04/24-1250 Status: CAITLIN Alvarez Num: [id number] Spec Type: ASP OUT Subm Dr: DO NICOLÁS Lynn OPERATION: Endobronchial ultrasound PRE-OP DIAGNOSIS: Mediastinal lymphadenopathy TISSUE SUBMITTED: Gumaro-J- EBUS DIAGNOSIS CYTOLOGY A. EBUS, TBNA, site 10 R #1 (smears): Negative for malignant cells. This specimen consists of respiratory epithelial cells and mucoid material. B. EBUS, TBNA, site 10 R #2 (smears): Paucicellular specimen. Rare respiratory epithelial cells are noted. Negative for malignant cells. C. EBUS, TBNA, site 10 R #3 (smears): Negative for malignant cells. This specimen consists of respiratory epithelial cells and mucoid material. D. EBUS, TBNA, site 11 R #4 (smears): Negative for malignant cells. Respiratory epithelial cells are noted. E. EBUS, TBNA, site 11 R #5 (smears): Negative for malignant cells. Respiratory epithelial cells are noted. F. EBUS, TBNA, site 11 L #6 (smears): Negative for malignant cells. Respiratory epithelial cells are noted. G. EBUS, TBNA, site 11 L #7 (smears): Negative for malignant cells. Respiratory epithelial cells are noted. A few lymphocytes are noted. H. EBUS, TBNA, site 10R fluid (cytospins and cellblock): Paucicellular specimen. Negative for malignant cells. The specimen consists of rare respiratory epithelial cells. I. EBUS, TBNA, site 11 R fluid (cytospins and cellblock): Negative for malignant cells. See cytology study. J. EBUS, TBNA, site 11 L fluid (cytospins and cellblock): Negative for malignant cells. See cytology study. See comment. 11/07/2024 Patient Age/Sex Location Account Attending Physician TYRELL REYES/M EN [id number] Dr. Terence Alba, DO COMMENT Please make reference to previous specimen [id number] epiglottis mass, biopsy with diagnosis of invasive moderately differentiated squamous cell carcinoma. Correlation with clinical, radiologic findings and appropriate follow up are necessary. CYTOLOGY STUDY Slides are reviewed. I. The specimen consists of respiratory epithelial cells, macrophages with anthracotic pigment and a few lymphocytes. J. The specimen consists of respiratory epithelial cells, macrophages with anthracotic pigment and a few lymphocytes. A fragment of hyaline cartilage is also noted. CYTOLOGY GROSS A. Received labeled with the patient's name and and designated EBUS, TBNA, site 10 R #1. The specimen consists of two stained smears. B. Received labeled with the patient's name and and designated EBUS, TBNA, site 10 R #2. The specimen consists of two stained smears. C. Received labeled with the patient's name and and designated EBUS, TBNA, site 10 R #3. The specimen consists of two stained smears. D. Received labeled with the patient's name and and designated EBUS, TBNA, site 11 R #4. The specimen consists of two stained smears. E. Received labeled with the patient's name and and designated EBUS, TBNA, site 11 R #5. The specimen consists of two stained smears. F. Received labeled with the patient's name and and designated EBUS, TBNA, site 11 L #6. The specimen consists of two stained smears. G. Received labeled with the patient's name and and designated EBUS, TBNA, site 11 L #7. The specimen consists of two stained smears. H. Received in RPMI is 20 ml of pink, needle rinsed fluid labeled with the patient's name and and designated EBUS, TBNA, site 10 R. The specimen is submitted for cell block preparation. I. Received in RPMI is 20 ml of pink, needle rinsed fluid labeled with the patient's name and and designated EBUS, TBNA, site 11 R. The specimen is submitted for cell block preparation. J. Received in RPMI is 20 ml of pink, needle rinsed fluid labeled with the patient's name and and designated EBUS, TBNA, site 11 L. The specimen is submitted for cell block preparation. 11/04/2024 [id number] Signed (signature on file) Dr. Julio Caraballo MD 11/07/24 1202 (more content not included)... Normal [facility] Comment on above: Performed By: #### P SSII ####[facility] [id number] [place], [place], [address] Whole blood prothrombin time Ordered By: Terence Alba on 11-04-2024 PT Coag (Bld) [Time] 13.3 s 11.7-14.9 [facility] 54-RU-Irlcewq DOrdered By: Ian uQick on 11-03-2024 Vitamin D 25-Hydroxy 59.8 ng/mL [facility] Comment on above: Vitamin D 25(OH) Sta tus Range Deficiency <20 ng/mL (50nmol/L) Insufficiency 20 - 30 ng/mL (50 - 75 nmol/L) Sufficiency 30 - 100 ng/mL (75 - 250 nmol/L) Toxicity >100 ng/mL (>250 nmol/L) Activated partial thrombopla stin time (aPTT) in platelet poor plasma by coagulation aOrdered By: Terence Alba on 11-03-2024 aPTT Coag (PPP) [Time] 27.1 s 24.1-36.2 [facility] Blood urea nitrogen (BUN)/cr eatinine ratioOrdered By: Zhang Quick on 11-03-2024 Urea nitrogen/Creatinine [Mass ratio] 28.5 mg/mg High 07-03 [facility] CBC-Complete Blood Cnt No Di ffon 11-03-2024 Erythrocyte distribution width (RBC) [Ratio] 14.0 % Normal 11.6-14.6 [facility] Comment on above: Performed By: #### L 300.4310, L100.1900, L300.3900 #### [facility] [address] [place], [address] Hematocrit (Bld) [Volume fraction] 34.4 % Low 40-54 [facility] Comment on above: Performed By: #### L 300.4310, L100.1900, L300.3900 #### [facility] [address] [place], [address] Hemoglobin (Bld) [Mass/Vol] 11.2 g/dL Low 13.0-16.5 [facility] Comment on above: Performed By: #### L 300.4310, L100.1900, L300.3900 #### [facility] [address] [place], [address] MCH (RBC) [Entitic mass] 31.3 pg Normal 27.0-32.0 [facility] Comment on above: Performed By: #### L 300.4310, L100.1900, L300.3900 #### [facility] [address] [place], [address] MCHC (RBC) [Mass/Vol] 32.6 g/dL Normal 32-36 [facility] Comment on above: Performed By: #### L 300.4310, L100.1900, L300.3900 #### [facility] [address] [place], [address] MCV (RBC) [Entitic vol] 96.1 fL High 80-94 [facility] Comment on above: Performed By: #### L 300.4310, L100.1900, L300.3900 #### [facility] [address] [place], [address] Platelet mean volume (Bld) [Entitic vol] 10.4 fL Normal 6.2-12.0 [facility] Comment on above: Performed By: #### L 300.4310, L100.1900, L300.3900 #### [facility] [address] [place], [address] Platelets (Bld) [#/Vol] 144 10*3/uL Low 150-450 [facility] Comment on above: Performed By: #### L 300.4310, L100.1900, L300.3900 #### [facility] [address] [place], [address] RBC (Bld) [#/Vol] 3.58 10*6/uL Low 4.6-6.2 [facility] Comment on above: Performed By: #### L 300.4310, L100.1900, L300.3900 #### [facility] [address] [place], [address] RDW SD 49.6 fl High 35.1-43.9 [facility] Comment on above: Performed By: #### L 300.4310, L100.1900, L300.3900 #### [facility] [address] [place], [address] WBC (Bld) [#/Vol] 4.8 10*3/uL Normal 4.4-11.0 [facility] Comment on above: Performed By: #### L 300.4310, L100.1900, L300.3900 #### [facility] [address] [place], [address] Carbon dioxide measurementOr dered By: Zhang Quick on 11-03-2024 CO2 [Moles/Vol] 31.0 mmol/L 21.0-32.0 [facility] Chloride measurementOrdered By: Zhang Quick on 11-03-2024 Chloride [Moles/Vol] 104 mmol/L 98-107 [facility] Erythrocyte distribution wid th ratioOrdered By: [place] Abdelrahman on 11-03-2024 Erythrocyte distribution width (RBC) [Ratio] 14.0 % 11.6-14.6 [facility] Erythrocyte distribution wid th standard deviationOrdered By: Zhang Quick on 11-03-2024 Erythrocyte distribution width (RBC) [Entitic vol] 49.6 fL High 35.1-43.9 [facility] Erythrocyte distribution width (RBC) [Ratio] 49.6 fl High 35.1-43.9 [facility] Estimated glomerular filtrat ion rate (GFR) AmericanOrdered By: Zhang Quick on 11-03-2024 Estimated GFR (MDRD) Amer 55 mL/min Low >60 [facility] Comment on above: GFR Calc Glomerular filtration rate ( GFR) estimationOrdered By: Zhang Quick on 11-03-2024 Estimated GFR (MDRD) Non-Af Amer 46 mL/min Low >60 [facility] Comment on above: Non- GFR Calc GFR/1.73 sq M.predicted among non-blacks MDRD (S/P/Bld) [Vol rate/Area] 46 mL/min/{1.73_m2} Low >60 [facility] Comment on above: Non- GFR Calc Glucose measurementOrdered B y: Zhang Quick on 11-03-2024 Glucose [Mass/Vol] 90 mg/dL 74-106 [facility] Hematocrit Auto (Bld) [Volum e fraction]Ordered By: Zhang Quick on 11-03-2024 Hematocrit (Bld) [Volume fraction] 34.4 % Low 40-54 [facility] Hemoglobin measurementOrdere d By: Zhang Quick on 11-03-2024 Hemoglobin (Bld) [Mass/Vol] 11.2 g/dL Low 13.0-16.5 [facility] Intact parathyroid hormone ( iPTH) measurementOrdered By: Zhang Quick on 11-03-2024 Parathyroid Hormone (Intact) 62.6 pg/mL 18.4-80.1 [facility] MCV (mean corpuscular volume ) determinationOrdered By: Zhang Quick on 11-03-2024 MCV (RBC) [Entitic vol] 96.1 fL High 80-94 [facility] Mean corpuscular hemoglobin (MCH) determinationOrdered By: Zhanglynne Quick on 11-03-2024 MCH (RBC) [Entitic mass] 31.3 pg 27.0-32.0 [facility] Mean corpuscular hemoglobin concentration (MCHC) determinationOrdered By: Zhang Quick on 11-03-2024 MCHC (RBC) [Mass/Vol] 32.6 g/dL 32-36 [facility] Mean platelet volume determi nationOrdered By: Zhang Quick on 11-03-2024 Platelet mean volume (Bld) [Entitic vol] 10.4 fL 6.2-12.0 [facility] PTHINon 11-03-2024 PTH 62.6 pg/mL Normal 18.4-80.1 [facility] Comment on above: Performed By: #### L 300.4310, L100.1900, L300.3900 #### [facility] [address] [place], [address] Partial Thromboplast Timeon 11-03-2024 aPTT Coag (Bld) [Time] 27.1 s Normal 24.1-36.2 [facility] Comment on above: Order Comment: SEND INR TO Performed By: #### L 300.4310, L100.1900, L300.3900 #### [facility] [address] [place], [address] Phosphorus measurementOrdere d By: Zhang Quick on 11-03-2024 Phosphorus Level 4.2 mg/dL 2.5-4.9 [facility] Platelet Counton 11-03-2024 Platelets (Bld) [#/Vol] 146 10*3/uL Low 150-450 [facility] Comment on above: Performed By: #### L 300.4310, L100.1900, L300.3900 #### [facility] [address] [place], [address] Platelet countOrdered By: Aguilar Quick on 11-03-2024 Platelets (Bld) [#/Vol] 144 10*3/uL Low 150-450 [facility] Platelet countOrdered By: [place] on 11-03-2024 Platelets (Bld) [#/Vol] 146 10*3/uL Low 150-450 [facility] Potassium measurementOrdered By: Zhang Quick on 11-03-2024 Potassium [Moles/Vol] 4.3 mmol/L 3.5-5.1 [facility] Protein/Creatinine (U) [Mass ratio]Ordered By: Zhang Quick on 11-03-2024 Urine Protein/Creatinine Ratio 652 mg/g CRE High 0-200 [facility] Prothrombin Time w/INRon INR Coag (PPP) [Relative time] 1.2 {INR} Normal [facility] Comment on above: Order Comment: SEND INR TO Performed By: #### L 300.4310, L100.1900, L300.3900 #### [facility] [address] [place], [address] PT Coag (PPP) [Time] 14.9 s Normal 11.7-14.9 [facility] Comment on above: Order Comment: SEND INR TO Performed By: #### L 300.4310, L100.1900, L300.3900 #### [facility] [address] [place], [address] Prothrombin timeOrdered By: Terence Alba on 11-03-2024 PT Coag (PPP) [Time] 14.9 s 11.7-14.9 [facility] RBC Auto (Bld) [#/Vol]Ordere d By: Zhang Quick on 11-03-2024 RBC (Bld) [#/Vol] 3.58 10*6/uL Low 4.6-6.2 [facility] Random urine protein measure mentOrdered By: Zhang Quick on 11-03-2024 Protein (U) [Mass/Vol] 24.9 mg/dL High 0.0-11.8 [facility] Renal Profileon 11-03-2024 Albumin [Mass/Vol] 3.3 g/dL Normal 3.2-5.0 [facility] Comment on above: Performed By: #### L 300.4310, L100.1900, L300.3900 #### [facility] [address] [place], [address] BUN/CRE 28.5 RATIO High - [facility] Comment on above: Performed By: #### L 300.4310, L100.1900, L300.3900 #### [facility] [address] [place], [address] CA,Total 9.3 mg/dL Normal 8.5-10.1 [facility] Comment on above: Performed By: #### L 300.4310, L100.1900, L300.3900 #### [facility] [address] [place], [address] Chloride [Moles/Vol] 104 mmol/L Normal 98-107 [facility] Comment on above: Performed By: #### L 300.4310, L100.1900, L300.3900 #### [facility] [address] [place], [address] CO2 [Moles/Vol] 31.0 mmol/L Normal 21.0-32.0 [facility] Comment on above: Performed By: #### L 300.4310, L100.1900, L300.3900 #### [facility] [address] [place], [address] Creatinine [Mass/Vol] 1.58 mg/dL High 0.70-1.30 [facility] Comment on above: Result Comment: The validity of the calculated GFR GFRAA in patients over 70 years has not been determined. Clinical correlation is essential. Performed By: #### L 300.4310, L100.1900, L300.3900 #### [facility] [address] [place], [address] EST GFR - AA 55 mL/min Low >60 [facility] Comment on above: Result Comment: Afri can Dominican GFR Calc Performed By: #### L 300.4310, L100.1900, L300.3900 #### [facility] [address] [place], [address] GFR/1.73 sq M.predicted among non-blacks MDRD (S/P/Bld) [Vol rate/Area] 46 mL/min/{1.73_m2} Low >60 [facility] Comment on above: Result Comment: Non- GFR Calc Performed By: #### L 300.4310, L100.1900, L300.3900 #### [facility] [address] [place], [address] Glucose [Mass/Vol] 90 mg/dL Normal 74-106 [facility] Comment on above: Performed By: #### L 300.4310, L100.1900, L300.3900 #### [facility] [address] [place], [address] Phosphate [Mass/Vol] 4.2 mg/dL Normal 2.5-4.9 [facility] Comment on above: Performed By: #### L 300.4310, L100.1900, L300.3900 #### [facility] [address] [place], [address] Potassium [Moles/Vol] 4.3 mmol/L Normal 3.5-5.1 [facility] Comment on above: Performed By: #### L 300.4310, L100.1900, L300.3900 #### [facility] [address] [place], [address] Sodium [Moles/Vol] 139 mmol/L Normal 136-145 [facility] Comment on above: Performed By: #### L 300.4310, L100.1900, L300.3900 #### [facility] [address] [place], [address] Urea nitrogen [Mass/Vol] 45 mg/dL High 03-31 [facility] Comment on above: Performed By: #### L 300.4310, L100.1900, L300.3900 #### [facility] [address] [place], [address] Serum or plasma albumin acacia urement (mass/volume)Ordered By: Zhang Quick on 11-03-2024 Albumin [Mass/Vol] 3.3 g/dL 3.2-5.0 [facility] Serum or plasma calcium acacia urement (mass/volume)Ordered By: Zhang Quick on 11-03-2024 Calcium [Mass/Vol] 9.3 mg/dL 8.5-10.1 [facility] Serum or plasma creatinine m easurement (mass/volume)Ordered By: Zhang Quick on 11-03-2024 Creatinine [Mass/Vol] 1.58 mg/dL High 0.70-1.30 [facility] Comment on above: The validity of the calculated GFR & GFRAA in patients over 70 years has not been determined. Clinical correlation is essential. Serum or plasma urea nitroge n measurement (mass/volume)Ordered By: Zhang Quick on 11-03-2024 Urea nitrogen [Mass/Vol] 45 mg/dL High 18 [facility] Sodium levelOrdered By: Orlando Quick on 11-03-2024 Sodium [Moles/Vol] 139 mmol/L 136-145 [facility] Urine creatinine measurement (mass/volume)Ordered By: Zhang Quick on 11-03-2024 Creatinine (U) [Mass/Vol] 38.20 mg/dL NO RANGE EST. [facility] Urine protein/creatinine mas s ratioOrdered By: Zhang Quick on 11-03-2024 Protein/Creatinine (U) [Mass ratio] 652 mg/g CRE High 0-200 [facility] Vitamin D,25 Hydroxyon 11-03 Vitamin D 25-OH 59.8 ng/mL Normal [facility] Comment on above: Result Comment: Mari min D 25(OH) Status Range Deficiency <20 ng/mL (50nmol/L) Insufficiency 20 - 30 ng/mL (50 - 75 nmol/L) Sufficiency 30 - 100 ng/mL (75 - 250 nmol/L) Toxicity >100 ng/mL (>250 nmol/L) Performed By: #### L 300.4310, L100.1900, L300.3900 #### [facility] [address] [place], [address] White blood cell (WBC) count Ordered By: Zhang Quick on 11-03-2024 WBC (Bld) [#/Vol] 4.8 10*3/uL 4.4-11.0 [facility] aPTT Coag (PPP) [Time]Ordere d By: Terence Alba on 11-03-2024 aPTT Coag (Bld) [Time] 27.1 s 24.1-36.2 [facility] MR/PAT.Sean 11-02-2024 MR/PAT.SARAH [facility] Medical Records Department [address] [place] [address] PAT - Anesthesia 11/02/24 1515 MR#: [id number] Acct: [id number] Name: TYRELL REYES Bebo Rep #: [id number] : 1950 73 From: Graham Bazzi MD PCP: Dr. 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 When Was Last Pacemaker Check QUESTION #4 FULL TEXT: You/Your Family Experience fever (hyperthermia) with Anesthesia Last Oral Intake Last Oral intake: Last Oral Intake NPO since Meds taken in AM with sips of water? 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 head house operator Female No 11/02/24 14:57 HX of Motion Sickness No 11/02/24 14:57 HX of N/V After Surgery No 11/02/24 14:57 Non-Smoker Yes 11/02/24 14:57 Duration of Surgery greater No 11/02/24 14:57 than 60 minutes Number of Risk Factors 1 11/02/24 14:57 PONV Score Low Risk 11/02/24 14:57 Height Weight Height Weight: Anesthesia: Height Weight Height 5 ft 7 in 10/13/24 09:59 Respiratory Assessment Respiratory Assessment - kiln head house operator: Respiratory Tract Infection Hx - kiln head house operator Hx Respiratory Tract Infection No 11/02/24 14:57 STOP Sleep Apnea STOP Sleep Apnea - kiln head house operator: STOP Sleep Apnea - kiln head house operator Hx Hypertension Yes 11/02/24 14:57 Hx Sleep Apnea Yes 11/02/24 14:57 CPAP Yes: NONCOMPLIANT 11/02/24 14:57 BIPAP No 11/02/24 14:57 Do you snore loudly (louder than talking or can be heard Do you often feel tired/ fatigued/ sleepy during daytime? Has anyone observed you stop breathing during sleep? STOP Results Positive 11/02/24 14:57 QUESTION #5 FULL TEXT : Do you snore loudly (louder than talking or can be heard through closed doors)? 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 Specify any problems Hx of Preganancy in last 3 N/A 11/02/24 14:57 Months Nurse Filling Out Transfusion VCHRISTIN 11/02/24 14:57 Questions: Date: 11/02/24 11/02/24 14:57 Time: 14:59 11/02/24 14:57 Patient unable to answer at this time (ie. confused, unrespo /Reproduction History /Reproductive History - kiln head house operator: /Reproductive Hx- kiln head house operator Hx Now No 11/02/24 14:57 Gestational Age (in weeks): EDC: Hx Hx Para Hx Section SAB No 11/02/24 14:57 [facility] Medical History (Updated 11/02/24 @ 14:57 by Maggie Armstrong) CPAP (continuous positive airway pressure) dependence Cancer Macular degeneration of right eye Carcinoma of epiglottis Smoker Wears hearing aid Wears dentures Alcohol use Ambulates with cane Neuropathy Back pain Blackout Difficulty swallowing Former smoker Shortness of breath on exertion Leg cramps History of edema Stroke/cerebrovascular accident History of atrial fibrillation History of echocardiogram History of stress test Cardiology follow-up encounter Chronic diastolic (congestive) heart failure Hypertension Acute on chronic diastolic (congestive) heart failure History of non-ST elevation myocardial infarction (NSTEMI) (11/02/19) Upper GI bleed (11/02/19) Paroxysmal atrial fibrillation History of CVA (cerebrovascular accident) (10/2015) Chronic renal failure Claudic (more content not included)... Normal [facility] 6 Minute Walk Teston 10-24- 025 6 Minute Walk Test y [facility] Pulmonary Services/Neurology [address] [place] [address] MR#: [id number] Acct: [id number] Name: TYRELL REYES Rep #: [id number] : 1950 73 From: Terence Alba DO Referring Dr: Terence Alba DO Status: REG CLI Location: PSN Date: Sex: M C PSN 6 Minute Walk Test 6 Minute Walk Test 6 Minute Walk Test: 6 Minute Walk Test PSN:6-Minute Walk Test Start: 10/20/24 12:37 Freq: Status: Active Protocol: RESP.6MINW Document 10/20/24 12:37 SF[place] (Rec: 10/20/24 12:42 SFENTON [id number]) 6 Minute Walk Test Date Performed 10/20/24 Time Performed 12:30 Height 5 ft 7.5 in Weight: 151 lb Weight in Pounds 151.[address]: Terence Alba Assistive device Cane used: Pre-test Oxygen Delivery Room Air Method Pulse Ox (%) 98 Pulse Rate (60-100 80 beats/min) 1st minute Oxygen Delivery Room Air Method Pulse Ox (%) 94 Pulse Rate (60-100 87 beats/min) 2nd minute Oxygen Delivery Room Air Method Pulse Ox (%) 94 Pulse Rate (60-100 84 beats/min) Number of Rests 1 Taken 3rd minute Oxygen Delivery Room Air Method Pulse Ox (%) 95 Pulse Rate (60-100 86 beats/min) Number of Rests 1 Taken 4th minute Oxygen Delivery Room Air Method Pulse Ox (%) 94 Pulse Rate (60-100 85 beats/min) Number of Rests 1 Taken 5th minute Oxygen Delivery Room Air Method Pulse Ox (%) 95 Pulse Rate (60-100 88 beats/min) 6th minute Oxygen Delivery Room Air Method Pulse Ox (%) 94 Pulse Rate (60-100 88 beats/min) Dyspnea Maria Teresa Scale ( 4 0-10) Exertion Maria Teresa Scale 14 (6-20) Post-test Oxygen Delivery Room Air Method Pulse Ox (%) 98 Pulse Rate (60-100 86 beats/min) Full Laps Walked 10 Partial Lap, Number 10 of Tiles Walked Total Distance 600 Walked (ft) Interpretation Interpretation: The patient ambulated 600 feet over the course of 6 minutes beginning on room air with the use of a cane. Pretesting oxygen saturation was noted to be 98% on room air. With ambulation, the pramod oxygen saturation was 94%. Although there was evidence of impaired walk distance, there was no significant exertional oxygen desaturation. Recommendations Recommendations: There is no indication for the use of supplemental oxygen at this time. 10/24/245 Date Terence Alba DO CC: Date Dictated: 10/24/241224 Date Transcribed: 10/24/241224 [employer] Worker: Dr. 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 04/01/2024: received definitive radiation therapy consisting of 6996 cGy delivered to the gross disease within the larynx and bilateral adenopathy, 5940 cGy delivered to the entire remaining larynx and bilateral neck and 5412 cGy to the high level 2 bilaterally and bilateral supraclavicular fossa all in 33 fractions???He was treated 6 fractions per week because he was not a candidate for chemotherapy.??? Currently, he is undergoing work up for lung nodule w/ bronchoscopy and biopsy planned later this month. Dysphagia History secondary to SCC of supraglottic larynx: BSE with DIRECTOR OF STATE 02/11/24 revealed mild oropharyngeal dysphagia and recommended Regular textures / Thin liquids with compensatory strategies to decrease risk for aspiration. DIRECTOR OF STATE recommended MBSS prior to radiation treatment to further assess swallow function and aspiration risk. MBSS 02/15/24 revealed mild oral dysphagia, moderate pharyngoesophageal dysphagia and recommended the following: ???Diet: Regular Textures and Thin Liquids; Comment: STOP food/drink and resume later if concern for reflux, retention, or regurgitation, and resume food/drink at a later time. Compensatory Strategies: Small Bites, Small Sips (Cough and re-swallow after every 1-2 sips), Slow Rate, Sitting upright and Remain sitting upright for 60 minutes after PO intake.??? He followed w/ OP ST during and following radiation treatment to manage his dysphagia. FEES completed 05/28/2024 due to difficulty resuming an oral diet following treatment. FEES revealed mild oral dysphagia, moderate-severe pharyngeal dysphagia w/ moderate-severe edema of the oropharynx, hypopharynx, and larynx. FEES recommended thin liquids w/ use of compensatory strategies. Since study, he has continued to follow w/ ST and advanced to puree w/ some soft solids / thin liquids; however, due to significant silent aspiration w/ pudding on most recent MBSS 06/2024, he resumed a full thin liquid diet. PEG tube is utilizing 4-5 cartons of supplement daily and pt follows w/ production team leader. He has had significant weight loss since January of 2024 and is currently 151.8lbs (down 36lbs since January 2024). Pt has been recommended for dilation w/ ENT, Dr. Sanchez; however, pt is waiting until he has completed work up for lung nodule. Dysphagia History prior to SCC of supraglottic larynx: Hx of MBSS in 2014, which revealed mild pharyngoesophageal dysphagia. No follow up dysphagia therapy was completed. Over the years, he has felt that food/pills get caught in his throat. At times, he must ???bring food back up to get it back down.??? Other PMH: CHF, Carcinoma of epiglottis, Smoker, Wears hearing aid and dentures, Alcohol use, Neuropathy, Difficulty swallowing, Sleep apnea, Shortness of breath on exertion, A fib, Hx of CVA (10/2015), HTN, NSTEMI, Upper GI bleed, Chronic renal failure, HLD, Atherosclerosis of coronary artery 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, Stenosis of left subclavian artery, CKD, DDD, Marijuana use, Diabetic neuropathy, Osteoarthritis, DM type 2, See EMR for full PMH). Current Diet Ordered: Puree w/ some soft solids / Thin liquids Dentition: Edentulous Mental Status: WNL Respiratory Status: Oxygenating on Room Air Penetration-Aspiration Scale Penetration-Aspiration Scale: OBJECTIVE ASSESSMENT OF SWALLOW FUNCTION (QUANTITATIVE ??? PER TRIAL): PENETRATION / ASPIRATION SCALE (BURRELL): 1 = does not enter airway 2 = enters airway/above vocal folds/ejected 3 = enters airway/above vocal folds/not ejected 4 = enters airway/contacts vocal folds/ejected 5 = enters airway/contacts vocal folds/not ejected 6 = enters airway/below vocal folds/ejected 7 = enters airway/below vocal folds/not ejected despite effort 8 = enters airway/below vocal folds/no effort VIDEOFLOROSCOPIC SCALE SCORE (BURRELL): Grade I = aspiration of material that has penetrated (more content not included)... Normal [facility] Pulmonary Visit Reporton Pulmonary Visit Report [facility] of [address] [place] [address] OFFICE VISIT Date of Service: 10/13/24 MR#: [id number] Acct: [id number] Name: TYRELL REYES Bebo Rep #: [id number] : 1950 Provider: Dr. 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 Plan to proceed with EBUS facilitated mediastinal lymph node sampling. The risks and benefits of the proposed procedure were discussed with the patient. Questions were answered accordingly. The patient was in agreement to proceed. Preprocedural lab work will be obtained. The patient's Coumadin will need to be on hold prior to the procedure with INR obtained the day prior. (2) Nicotine dependence, cigarettes, in remission: Status: Chronic Plan: The patient has a longstanding tobacco abuse history, but quit smoking completely 30 years ago. In light of his shortness of breath and intermittent chest tightness, we will plan to obtain a full set of pulmonary function studies along with a 6-minute walk test to assess for any exertional hypoxemia. Additional recommendations will be forthcoming, pending the outcome of his PFTs. Orders: Orders PFT Complete - DLCO, Spirometry b/a bronchodilators, lung volumes 10/28/24 F17.211 - Nicotine dependence, cigarettes, in remission, R59.0 - Localized enlarged lymph nodes Simple Pulmonary Exercise Test 10/20/24 F17.211 - Nicotine dependence, cigarettes, in remission, R59.0 - Localized enlarged lymph nodes Prothrombin Time w/INR Today F17.211 - Nicotine dependence, cigarettes, in remission, R59.0 - Localized enlarged lymph nodes, Z79.01 - intermediate designer (current) use of anticoagulants Platelet Count Today F17.211 - Nicotine dependence, cigarettes, in remission, R59.0 - Localized enlarged lymph nodes Partial Thromboplast Time Today F17.211 - Nicotine dependence, cigarettes, in remission, R59.0 - Localized enlarged lymph nodes, Z79.01 - custodial (current) use of anticoagulants HPI HPI Comments Details: The patient is a 73-year-old male who presents to the clinic today in referral for the evaluation of PET positive mediastinal adenopathy. 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 He is currently followed by Dr. Lizama on an outpatient basis. Recent pet imaging was completed which demonstrated resolution of the laryngeal and neck adenopathy. However, there was some interval progression noted in the thoracic perihilar regions with an SUV of 5.1. Therefore, the patient was referred to our office to be considered for mediastinal lymph node sampling via EBUS. The patient has an approximate 14-fuhz-icmi smoking history, having quit completely 30 years ago. He has never been evaluated by a medical office rep, nor has he ever completed pulmonary function studies. The patient does not currently utilize any supplemental oxygen. He does have a known history of coronary artery disease, hypertension, peripheral arterial disease, chronic kidney disease, paroxysmal atrial fibrillation and diabetes. In addition to his personal smoking history, the patient did grow up in a smoking household. 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 He has never previously been diagnosed with asthma. He does report the presence of exertional shortness of breath along with occasional chest tightness. The patient is systemically anticoagulated on Coumadin. He receives all of his nutrition via his feeding tube. He takes nothing by mouth. His weight and appetite have been relatively stable. Intake Vital Signs 02/05/24 09:08 06/15/24 11:41 10/07/24 09:16 10/13/24 09:59 Height 5 ft 7 in 5 ft 7 in 5 ft 7 in 5 ft 7 in Weight: 154 lb BMI 24.1 BP 120/68 Blood Pressure Location Lt brachial Position Sitting Respiration 18 Pulse 78 Pulse Source Monitor Temp 97.2 F L Temperature Source Temporal Artery Pulse Oximetry (%) 99 Oxygen Delivery Method room air Intake Visit Reasons: Referral from [facility] (see order comments) Chief Complaint: peg tube, possible port Plate Corrector Required: No Accompanied by: Allergies Iodinated Contrast Media (iodine contrast) Adverse Reaction (Mild, Verified 10/13/24 11:19) Vomiting metformin Adverse Reaction (Verified 10/13/24 11:19) Nausea/Vom/Diarrhea Medications ???Medication ???Instructi (more content not included)... Normal [facility] Radiation Oncology Visiton 0 10-07-2024 Radiation Oncology Visit [facility] [address] [place] [address] OFFICE VISIT Date of Service: 10/07/24858 MR#: [id number] Acct: [id number] Name: TYRELL REYES Bebo Rep #: [id number] : 1950 From: Riki Lizama DO Age/Sex: 73/M [place] [facility] [place]: Signed Intake Vital Signs 06/30/24 10:17 08/29/24 06:19 10/04/24 11:09 10/07/24 09:16 10/07/24 09:16 Height 5 ft 7 in 5 ft 7 in 5 ft 7 in 5 ft 7 in 5 ft 7 in Weight: 155 lb 154 lb 5 oz BMI 24.3 24.1 BP 93/58 L 124/68 H Blood Pressure Location Lt brachial Lt brachial Position Sitting Sitting Respiration 16 16 Pulse 74 83 Pulse Source Monitor Monitor Temp 97.6 F L Temperature Source Temporal Artery Pulse Oximetry (%) 100 Oxygen Delivery Method room air Intake Visit Reasons: 3 MONTH F/U H/N, REVIEW PET Chief Complaint: peg tube, possible port Is patient in pain?: No Allergies Iodinated Contrast Media (iodine contrast) Adverse Reaction (Mild, Verified 10/07/24 09:14) Vomiting metformin Adverse Reaction (Verified 10/07/24 09:14) Nausea/Vom/Diarrhea Medications ???Medication ???Instructions ???Recorded ???Confirmed ???Type pregabalin 150 mg capsule 150 mg PO BID pain 11/06/15 10/07/24 History warfarin 1 mg tablet 0.5 mg PO SUSA 02/22/24 10/07/24 History warfarin 1 mg tablet 1 mg PO MOTUWETHFR 02/22/24 10/07/24 History Have you fallen in the past year?: Yes PFSH PFSH Medical History CPAP (continuous positive airway pressure) dependence Cancer Macular degeneration of right eye Carcinoma of epiglottis Smoker Wears hearing aid Wears dentures Alcohol use Ambulates with cane Neuropathy Back pain Blackout Difficulty swallowing Former smoker Shortness of breath on exertion Leg cramps History of edema Stroke/cerebrovascular accident History of atrial fibrillation History of echocardiogram History of stress test Cardiology follow-up encounter Chronic diastolic (congestive) heart failure Hypertension Acute on chronic diastolic (congestive) heart failure History of non-ST elevation myocardial infarction (NSTEMI) (11/02/19) Upper GI bleed (11/02/19) Paroxysmal atrial fibrillation History of CVA (cerebrovascular accident) (10/2015) Chronic renal failure Claudication Peripheral vascular occlusive disease Hyperlipidemia Atherosclerosis of coronary artery 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 Stenosis of left subclavian artery Anxiety and depression CKD (chronic kidney disease) DDD (degenerative disc disease) Marijuana use Narcolepsy Diabetic neuropathy Osteoarthritis Type 2 diabetes mellitus Lacunar infarct, acute Home Medications ???Medication ???Instructions ???Recorded ???Last Taken ???Type pregabalin 150 mg capsule 150 mg PO BID pain 11/06/15 10/12/20 22:00 History warfarin 1 mg tablet 0.5 mg PO SUSA 02/22/24 02/18/24 History warfarin 1 mg tablet 1 mg PO MOTUWETHFR 02/22/24 02/18/24 History Allergy/AdvReac Type Severity Reaction Status Date / Time Iodinated Contrast Media AdvReac Mild Vomiting Verified 10/07/24 09:14 (iodine contrast) metformin AdvReac Nausea/Vom/ Verified 10/07/24 09:14 Diarrhea Family History Brother Cancer lung Surgical History S/P percutaneous endoscopic gastrostomy (PEG) tube placement History of laryngoscopy History of cataract surgery History of colonoscopy History of cholecystectomy ( 10/2020) History of left heart catheterization (11/13/04) History of angioplasty of peripheral vessel (09/2018) Social History Smoking Status: Former smoker quit date: 09/14/97 Tobacco: How many years used: 45 how long ago did patient quit smokin years ago alcohol intake: current alcohol intake frequency: 0-2 drinks per day Alcohol type: hard liquor substance use type: marijuana caffeine: Yes Type: carbonated beverages Number of servings: 1 Diagnosis: Tyrell Reyes is a 73-year-old male diagnosed with clinical stage NALINI (cT2 cN2c M0) 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 From 02/22/2024 ??? 04/01/2024 he received definitive radiation. History of Present Illness: 12/24/2023: Patient was evaluated by ENT.??? This demonstrated a mass on the laryngeal surface of the epiglottis.??? No apparent abnormality noted within the glottis or subglottis. 01/07/2024: CT neck with contrast was performed.??? This demonstrated a suggestion of thickening of the (more content not included)... Normal [facility] INR Coag (BldC) [Relative ti me]Ordered By: Zhang Quick on 10-04-2024 INR Coag (Bld) [Relative time] 2.8 {INR} [facility] Comment on above: Critical Value > 4.0 PET/CT Tumor Base -Thigh Sub son 10-04-2024 PET/CT Tumor Base -Thigh Subs [facility] Imaging Services [address] [place] [address] PET/CT Tumor Base -Thigh Subs MR#: [id number] Acct: [id number] Name: TYRELL REYES Rep #: [id number] : 1950 M 73 From: Ricky Galvez PCP: Dr. Lexus Rivera, DO Status: REG RCR Study: PET/CT Tumor Base -Thigh Subs Date of Exam: Exam# [id number] Ordering Dr: Riki Lizama DO [id number] EXAMINATION: FDG-PET/CT ? INDICATIONS: 73-year-old male with a history of head and neck, presenting for restaging examination. ? COMPARISON EXAMINATION: FDG-PET CT study dated 06/21/2024. ? INDEX LESION SIZE SUV INTERPRETATION PERSISTENT Bilateral thoracic perihilum 14.1 mm compared to 14.9 mm 5.1 compared to 3.6 Likely necessitates histopathologic investigation, if not previously obtained ? NEW Left lower lung field, left lower lobe ? 2.1 max Quantitative criteria for viable neoplasm not fulfilled, sequential radiologic investigation recommended ? TECHNIQUE: Following the intravenous administration of 14.04 mCi of F-18 deoxyglucose via the left hand, multiplanar image acquisitions of the head, neck, chest, abdomen and pelvis to the level of the midthigh, obtained at one-hour post radiopharmaceutical administration contemporaneously interpreted with the current CT of the chest, abdomen and pelvis dated 10/04/2024 and prior FDG-PET CT study dated 06/21/2024 via coregistration reveal: ? SERUM GLUCOSE LEVEL:? 125 mg/dL? HEIGHT:?? 67 inches WEIGHT:?? 159 pounds ? FINDINGS: ? HEAD/NECK:? There is no evidence of abnormal increased glucose metabolism in the pharyngeal mucosal space, parapharyngeal space, oropharynx, bilateral-lateral and anterior neck, hypopharynx and distribution of the larynx. ? The visualized portion of the cerebral cortical-subcortical structures demonstrate symmetric and preserved glucose metabolism. ? CHEST:? There is an increase in FDG uptake redemonstrated in the bilateral thoracic perihilum. The current calculated standard uptake value is 5.1 compared to 3.6. The maximal axial diameter of the most conspicuous metabolic, morphologic abnormality is 14.1 mm compared to 14.9 mm. Facilitated uptake is noted in the left lower lateral lung field. The calculated standard uptake value is 2.1. Quantitative criteria for neoplasm are not fulfilled. ? CT of the chest demonstrates the following anatomic characteristics: On review of CT of the chest, there is no definitive interval change compared to the study dated 06/21/2024. ? ABDOMEN/PELVIS:? Normal physiologic distribution of the radiopharmaceutical is identified in the hepatic (232) and splenic parenchyma, both renal units, urinary bladder, and visualized intestinal tract. Diffuse intestinal tract is identified in all four quadrants of the abdominal-pelvic mesentery. ? CT of the abdomen and pelvis is remarkable for the following: On review of CT of the abdomen/pelvis there is no definitive interval change compared to the study dated 06/21/2024. ? SKELETAL:? There is no evidence of quantitatively significant enhanced glucose metabolism on meticulous inspection of the appendicular and axial skeletal structures. ? Degenerative changes defined in the thoracic and lumbar spine demonstrate no evidence of increased glucose metabolism. There are no sclerotic, mixed sclerotic-lytic, or primarily lytic changes defined in the axial skeletal structures with evidence of increased FDG uptake. ? PET/PET/CT Tumor Base -Thigh Subs IMPRESSION: 1. Redefined increased glucose metabolism noted in the bilateral thoracic perihilum fulfills quantitative criteria for viable neoplasm with single point technique. Histopathologic analysis should be undertaken. 2. The increase in tracer uptake noted in the left lower lung field laterally does not fulfill quantitative criteria for neoplastic transformation. (Salas et al, Journal of Nuclear Medicine, 32:1, 1991). 3. Overall, compared to the prior FDG-PET CT study dated 06/21/2024, the increase in uptake noted in the bilateral thoracic perihilum warrants histopathologic investigation if not previously obtained. ? Accurate Quantification of SUVs for this report are calculated using the exclusive [employer]. (U.S. Patent No. [id number] [phone] [phone] [place] patent [id number] [phone] [id number]). Standardization and correction of the FDG SUV metric via [employer] technology allow for vendor non-specific objective quantitative examination comparison and optimization of the sensitivity and specificity of the FDG PET-CT examination. [email or web address].[email or web address] https://[employer] Electronically Signed: Ricky Leon DO at 22:29 EST , (more content not included)... Normal [facility] PT Coag (Bld) [Time]Ordered By: Zhang Quick on 10-04-2024 Bedside Prothrombin Time 28.5 SEC High 11.7-14.9 [facility] Protime w/INR Fingerstickon 10-04-2024 INR Coag (PPP) [Relative time] 2.8 {INR} Normal [facility] Comment on above: Result Comment: Crit ical Value > 4.0 Performed By: #### L 300.4310, L100.1900, L300.3900 #### [facility] [address] [place], [place], [id number] Protime [place] 28.5 SEC High 11.7-14.9 [facility] Comment on above: Performed By: #### L 300.4310, L100.1900, L300.3900 #### [facility] [address] [place], [place], [id number] Cardiology Visit Reporton Cardiology Visit Report [facility] [address] [place] [address] OFFICE VISIT Date of Service: 08/29/24 MR#: [id number] Acct: [id number] Name: TYRELL REYES Rep #: [id number] : 1950 Provider: KATH Garcia Age/Sex: 73/M Location: [facility] Status: Signed HPI HPI History of Present Illness Details: This is a 73-year-old gentleman who presents here today for a cardiovascular follow-up. He does have a history of coronary artery disease with mild disease noted in his LAD, circumflex and a totally occluded RCA with [id number] collaterals. He also has a history of hypertension, peripheral arterial disease with stenting to his left subclavian, right iliac stenting in 2018, chronic kidney disease, diabetes and hyperlipidemia. In August 2009, he had a hospitalization for atrial fibrillation with RVR. His Plavix was discontinued at that time and he was started on an anticoagulant. He underwent a stress test on 07/21/2022 which was negative for ischemia. His echocardiogram on 07/21/2022 demonstrated an ejection fraction of 60%, and no wall motion abnormality. He was diagnosed with throat cancer, he has recently finished radiation. Pts biggest issues is fatigue from his weight loss. He is still not able to eat solid foods. He does not have any chest pain but doess have SOB with Exertion. This is baseline. Intake Vital Signs 05/25/24 09:18 08/15/24 13:55 08/29/24 06:19 Height 5 ft 7 in 5 ft 7 in 5 ft 7 in Weight: 155 lb BMI 24.3 BP 93/58 L Blood Pressure Location Lt brachial Position Sitting Respiration 16 Pulse 74 Pulse Source Monitor Intake Visit Reasons: 3 M FU Plate Corrector Required: No Accompanied by: Significant Other Is patient in pain?: No Allergies Iodinated Contrast Media (iodine contrast) Adverse Reaction (Mild, Verified 08/29/24 09:41) Vomiting metformin Adverse Reaction (Verified 08/29/24 09:41) Nausea/Vom/Diarrhea Medications ???Medication ???Instructions ???Recorded ???Confirmed ???Type pregabalin 150 mg capsule 150 mg PO BID pain 11/06/15 08/29/24 History warfarin 1 mg tablet 0.5 mg PO SUSA 02/22/24 08/29/24 History warfarin 1 mg tablet 1 mg PO MOTUWETHFR 02/22/24 08/29/24 History Have you fallen in the past year?: Yes PFSH Medical History CPAP (continuous positive airway pressure) dependence Cancer Macular degeneration of right eye Carcinoma of epiglottis Smoker Wears hearing aid Wears dentures Alcohol use Ambulates with cane Neuropathy Back pain Blackout Difficulty swallowing Former smoker Shortness of breath on exertion Leg cramps History of edema Stroke/cerebrovascular accident History of atrial fibrillation History of echocardiogram History of stress test Cardiology follow-up encounter Chronic diastolic (congestive) heart failure Hypertension Acute on chronic diastolic (congestive) heart failure History of non-ST elevation myocardial infarction (NSTEMI) (11/02/19) Upper GI bleed (11/02/19) Paroxysmal atrial fibrillation History of CVA (cerebrovascular accident) (10/2015) Chronic renal failure Claudication Peripheral vascular occlusive disease Hyperlipidemia Atherosclerosis of coronary artery 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 Stenosis of left subclavian artery Anxiety and depression CKD (chronic kidney disease) DDD (degenerative disc disease) Marijuana use Narcolepsy Diabetic neuropathy Osteoarthritis Type 2 diabetes mellitus Lacunar infarct, acute Surgical History S/P percutaneous endoscopic gastrostomy (PEG) tube placement History of laryngoscopy History of cataract surgery History of colonoscopy History of cholecystectomy ( 10/2020) History of left heart catheterization (11/13/04) History of angioplasty of peripheral vessel (09/2018) Family History Brother Cancer lung Social History Smoking Status: Former smoker quit date: 09/14/97 Tobacco: How many years used: 45 how long ago did patient quit smokin years ago alcohol intake: current alcohol intake frequency: 0-2 drinks per day Alcohol type: hard liquor substance use type: marijuana caffeine: Yes Type: carbonated beverages Number of servings: 1 ROS Const Const: Positive for fatigue, weakness and headache(s); Negative for daytime sleepiness or difficulty sleeping ENT ENT: Positive for headache(s) and dizziness; Negative for Nosebleed/epistaxis Cardio Chest Pain: No Palpitations: No Edema: Bilateral (BLE at times) Resp Respiratory: Positive for SOB with activity and SOB at res (more content not included)... Normal [facility] Re-Evalution OTon 08-15-2024 Re-Evalution OT [facility] Occupational Therapy [facility] [address] [place] [address] / REEVALUATION / MEDICARE RECERTIFICATION OCCUPATIONAL THERAPY MR#: [id number] Acct: [id number] Name: TYRELL REYES Rep #: [id number] : 1950 73 From: Paayl Mina OTR/L, CHT Referring Dr.: Dr. Riki Lizama DO Status: RE G RCR Insurance: MEDICARE PART A B Eval Date: [facility] Re-Evaluation Intro: Dr. Riki Lizama, , It has been my pleasure to treat TYRELL REYES over the last 6 visits for head neck cancer/ lymphedema. Please see the progress note below for an update on the occupational therapy plan of care! Subjective Subjective: pt arrives to session with his - states speech therapy is going ok- working on swallowing thin liquids - states using the compression head/neck garment does cause him to get a headache after 45 min of using the compression garment. - feels he is doing self lymph massage at lease 2x a day. Objective Objective/Function: neck region 45 cm top of head to bottom 69cm no significate change in pts lymphedema conservative method - pt would benefit from use of Tactile Flexitouch compression head/neck unit to assist pt in mtg. of his head/neck lymphedema. will send initial eval and progress note to [facility] to initiate order of pump. Plan Plan Frequency: 1x/Week Duration: 4 Weeks Plan: MLD compression Goals Goals Goal: Patient will demonstrate a 20% reduction in edema by discharge: Yes Goal: Patient will demonstrate adequate knowledge of self-massage by the end of the second week.: Yes Goal: Patient will demonstrate adequate knowledge of skin care and precautions by the end of the first week.: Yes Goal: Patient will demonstrate adequate knowledge of therapeutic exercises by discharge.: Yes Goal: Patient will select an appropriate compression garment and demonstrate adequate knowledge of correct donning technique, care and wearing schedule by discharge.: Yes Goal: Patient will voice understanding of need to replace compression garment every four to six months by discharge.: Yes Patient Goals: Learn how to Manage Lymphedema Anticipated Interventions Anticipated Interventions Anticipated Interventions: Education re Diagnosis, Education re Life-long lymphedema Management, Education re Skin Care and Precautions, Education re Self Massage Techniques and Home Program Re-Evaluation Ending Re-evaluation ending: Please do not hesitate to contact me at [phone] by phone or if you have questions or concerns regarding this new plan of care! Sincerely, Payal Mina, OTR/L, CHT 08/15/24 1141 CC: Dr. Lexus Rivera, ; Dr. Riki Lizama DO MK Signed For Medicare only, by signing this I certify the plan of care. ____ Physicians Signature Date Normal [facility] 25-ML-Lpbrfey DOrdered By: Ian Quick on 08-12-2024 Vitamin D 25-Hydroxy 69.0 ng/mL [facility] Comment on above: Vitamin D 25(OH) Sta tus Range Deficiency <20 ng/mL (50nmol/L) Insufficiency 20 - 30 ng/mL (50 - 75 nmol/L) Sufficiency 30 - 100 ng/mL (75 - 250 nmol/L) Toxicity >100 ng/mL (>250 nmol/L) Albumin to globulin ratioOrd ered By: Lexus Rivera on 08-12-2024 Albumin/Globulin [Mass ratio] 0.8 {ratio} Low 0.9-2.4 [facility] Bilirubin directOrdered By: Lexus Rivera on 08-12-2024 Bilirubin.direct [Mass/Vol] 0.15 mg/dL 0.00-0.30 [facility] Bilirubin, Directon 08-12-20 24 Bilirubin.direct [Mass/Vol] 0.15 mg/dL Normal 0.00-0.30 [facility] Comment on above: Performed By: #### L 300.4310, L100.1900, L300.3900 #### [facility] [address] [place], [address] Bilirubin, totalOrdered By: Lexus Rivera on 08-12-2024 Bilirubin [Mass/Vol] 0.40 mg/dL 0.20-1.00 [facility] Comment on above: For patients on eltr ombopag therapy, use of Dimension [place] TBIL is not recommended. Blood urea nitrogen (BUN)/cr eatinine ratioOrdered By: Lexus Rivera on 08-12-2024 Urea nitrogen/Creatinine [Mass ratio] 27.2 mg/mg High 10- [facility] CBC-Complete Blood Cnt No Di ffon 08-12-2024 Erythrocyte distribution width (RBC) [Ratio] 13.2 % Normal 11.6-14.6 [facility] Comment on above: Performed By: #### L 300.4310, L100.1900, L300.3900 #### [facility] [address] [place], [address] Hematocrit (Bld) [Volume fraction] 34.1 % Low 40-54 [facility] Comment on above: Performed By: #### L 300.4310, L100.1900, L300.3900 #### [facility] [address] [place], [address] Hemoglobin (Bld) [Mass/Vol] 11.5 g/dL Low 13.0-16.5 [facility] Comment on above: Performed By: #### L 300.4310, L100.1900, L300.3900 #### [facility] [address] [place], [address] MCH (RBC) [Entitic mass] 31.6 pg Normal 27.0-32.0 [facility] Comment on above: Performed By: #### L 300.4310, L100.1900, L300.3900 #### [facility] [address] [place], [address] MCHC (RBC) [Mass/Vol] 33.7 g/dL Normal 32-36 [facility] Comment on above: Performed By: #### L 300.4310, L100.1900, L300.3900 #### [facility] [address] [place], [address] MCV (RBC) [Entitic vol] 93.7 fL Normal 80-94 [facility] Comment on above: Performed By: #### L 300.4310, L100.1900, L300.3900 #### [facility] [address] [place], [address] Platelet mean volume (Bld) [Entitic vol] 10.1 fL Normal 6.2-12.0 [facility] Comment on above: Performed By: #### L 300.4310, L100.1900, L300.3900 #### [facility] [address] [place], [address] Platelets (Bld) [#/Vol] 187 10*3/uL Normal 150-450 [facility] Comment on above: Performed By: #### L 300.4310, L100.1900, L300.3900 #### [facility] [address] [place], [address] RBC (Bld) [#/Vol] 3.64 10*6/uL Low 4.6-6.2 [facility] Comment on above: Performed By: #### L 300.4310, L100.1900, L300.3900 #### [facility] [address] [place], [address] RDW SD 45.0 fl High 35.1-43.9 [facility] Comment on above: Performed By: #### L 300.4310, L100.1900, L300.3900 #### [facility] [address] [place], [address] WBC (Bld) [#/Vol] 6.4 10*3/uL Normal 4.4-11.0 [facility] Comment on above: Performed By: #### L 300.4310, L100.1900, L300.3900 #### [facility] [address] [place], [address] Carbon dioxide measurementOr dered By: Lexus Rivera on 08-12-2024 CO2 [Moles/Vol] 30.0 mmol/L 21.0-32.0 [facility] Chloride measurementOrdered By: Lexus Rivera on 08-12-2024 Chloride [Moles/Vol] 104 mmol/L 98-107 [facility] Comprehensive Metabolic Prof ilon 08-12-2024 Albumin [Mass/Vol] 3.3 g/dL Normal 3.2-5.0 [facility] Comment on above: Performed By: #### L 300.4310, L100.1900, L300.3900 #### [facility] [address] [place], [address] Albumin/Globulin [Mass ratio] 0.8 {ratio} Low 0.9-2.4 [facility] Comment on above: Performed By: #### L 300.4310, L100.1900, L300.3900 #### [facility] [address] [place], [address] ALK P 106 U/L Normal 45-117 [facility] Comment on above: Performed By: #### L 300.4310, L100.1900, L300.3900 #### [facility] [address] [place], [address] ALT [Catalytic activity/Vol] 28 U/L Normal 16-61 [facility] Comment on above: Performed By: #### L 300.4310, L100.1900, L300.3900 #### [facility] [address] [place], [address] AST [Catalytic activity/Vol] 22 U/L Normal 15-37 [facility] Comment on above: Performed By: #### L 300.4310, L100.1900, L300.3900 #### [facility] [address] [place], [address] Bilirubin [Mass/Vol] 0.40 mg/dL Normal 0.20-1.00 [facility] Comment on above: Result Comment: For patients on eltrombopag therapy, use of Dimension [place] TBIL is not recommended. Performed By: #### L 300.4310, L100.1900, L300.3900 #### [facility] [address] [place], [address] BUN/CRE 27.2 RATIO High 10-20 [facility] Comment on above: Performed By: #### L 300.4310, L100.1900, L300.3900 #### [facility] [address] [place], [address] CA,Total 9.5 mg/dL Normal 8.5-10.1 [facility] Comment on above: Performed By: #### L 300.4310, L100.1900, L300.3900 #### [facility] [address] [place], [address] Chloride [Moles/Vol] 104 mmol/L Normal 98-107 [facility] Comment on above: Performed By: #### L 300.4310, L100.1900, L300.3900 #### [facility] [address] [place], [address] CO2 [Moles/Vol] 30.0 mmol/L Normal 21.0-32.0 [facility] Comment on above: Performed By: #### L 300.4310, L100.1900, L300.3900 #### [facility] [address] [place], [address] Creatinine [Mass/Vol] 1.80 mg/dL High 0.70-1.30 [facility] Comment on above: Result Comment: The validity of the calculated GFR GFRAA in patients over 70 years has not been determined. Clinical correlation is essential. Performed By: #### L 300.4310, L100.1900, L300.3900 #### [facility] [address] [place], [address] EST GFR - AA 47 mL/min Low >60 [facility] Comment on above: Result Comment: Afri can Dominican GFR Calc Performed By: #### L 300.4310, L100.1900, L300.3900 #### [facility] [address] [place], [address] GAP 6 Normal 5-15 [facility] Comment on above: Performed By: #### L 300.4310, L100.1900, L300.3900 #### [facility] [address] [place], [address] GFR/1.73 sq M.predicted among non-blacks MDRD (S/P/Bld) [Vol rate/Area] 39 mL/min/{1.73_m2} Low >60 [facility] Comment on above: Result Comment: Non- GFR Calc Performed By: #### L 300.4310, L100.1900, L300.3900 #### [facility] [address] [place], [address] Globulin (S) [Mass/Vol] 4.3 g/dL High 2.2-4.2 [facility] Comment on above: Performed By: #### L 300.4310, L100.1900, L300.3900 #### [facility] [address] [place], [address] Glucose [Mass/Vol] 96 mg/dL Normal 74-106 [facility] Comment on above: Performed By: #### L 300.4310, L100.1900, L300.3900 #### [facility] [address] [place], [address] Potassium [Moles/Vol] 4.1 mmol/L Normal 3.5-5.1 [facility] Comment on above: Performed By: #### L 300.4310, L100.1900, L300.3900 #### [facility] [address] [place], [address] Sodium [Moles/Vol] 140 mmol/L Normal 136-145 [facility] Comment on above: Performed By: #### L 300.4310, L100.1900, L300.3900 #### [facility] [address] [place], [address] T PROT 7.6 g/dL Normal 6.4-8.2 [facility] Comment on above: Performed By: #### L 300.4310, L100.1900, L300.3900 #### [facility] [address] [place], [address] Urea nitrogen [Mass/Vol] 49 mg/dL High 7-18 [facility] Comment on above: Performed By: #### L 300.4310, L100.1900, L300.3900 #### [facility] [address] [place], [address] Direct serum free thyroxine (FT4) measurementOrdered By: Lexus Rivera on 08-12-2024 Free T4 [Mass/Vol] 0.94 ng/dL 0.76-1.46 [facility] Erythrocyte distribution wid th ratioOrdered By: Zhang Quick on 08-12-2024 Erythrocyte distribution width (RBC) [Ratio] 13.2 % 11.6-14.6 [facility] Erythrocyte distribution wid th standard deviationOrdered By: Zhang Quick on 08-12-2024 Erythrocyte distribution width (RBC) [Entitic vol] 45.0 fL High 35.1-43.9 [facility] Estimated glomerular filtrat ion rate (GFR) AmericanOrdered By: Lexus Rivera on 08-12-2024 Estimated GFR (MDRD) Amer 47 mL/min Low >60 [facility] Comment on above: GFR Calc Glomerular filtration rate ( GFR) estimationOrdered By: Lexus Rivera on 08-12-2024 Estimated GFR (MDRD) Non-Af Amer 39 mL/min Low >60 [facility] Comment on above: Non- GFR Calc Glucose measurementOrdered B y: Lexus Rivera on 08-12-2024 Glucose [Mass/Vol] 96 mg/dL 74-106 [facility] Hematocrit Auto (Bld) [Volum e fraction]Ordered By: Zhang Quick on 08-12-2024 Hematocrit (Bld) [Volume fraction] 34.1 % Low 40-54 [facility] Hemoglobin measurementOrdere d By: Zhang Quick on 08-12-2024 Hemoglobin (Bld) [Mass/Vol] 11.5 g/dL Low 13.0-16.5 [facility] High density lipoprotein (HD L) measurementOrdered By: Lexus Rivera on 08-12-2024 Cholesterol in HDL [Mass/Vol] 36 mg/dL Low >40 [facility] Comment on above: The drugs N-Acetylcy steine and Metamizole may falsely depress this assay. Reference Range HDL <40 mg/dL Low HDL Cholesterol HDL >or= 60 mg/dL High HDL Cholesterol International normalized rat io (INR) calculationOrdered By: Zhang Quick on 08-12-2024 INR Coag (Bld) [Relative time] 2.2 {INR} [facility] - Chemistry and C hemistry - challengeOrdered By: Lexus Rivera on 08-12-2024 AST [Catalytic activity/Vol] 22 U/L 15-37 [facility] Lipid Profileon 08-12-2024 Cholesterol [Mass/Vol] 164 mg/dL Normal 200 [facility] Comment on above: Result Comment: <200 mg/dL Desirable 200-240 mg/dL Borderline >240 mg/dL High Risk Performed By: #### L 300.4310, L100.1900, L300.3900 #### [facility] [address] [place], [address] Cholesterol in HDL [Mass/Vol] 36 mg/dL Low [facility] Comment on above: Result Comment: The drugs N-Acetylcysteine and Metamizole may falsely depress this assay. Reference Range HDL <40 mg/dL Low HDL Cholesterol HDL >or= 60 mg/dL High HDL Cholesterol Performed By: #### L 300.4310, L100.1900, L300.3900 #### [facility] [address] [place], [address] Cholesterol in LDL [Mass/Vol] 82 mg/dL Normal 0-130 [facility] Comment on above: Performed By: #### L 300.4310, L100.1900, L300.3900 #### [facility] [address] [place], [address] Cholesterol in VLDL [Mass/Vol] 46 mg/dL High 5-40 [facility] Comment on above: Performed By: #### L 300.4310, L100.1900, L300.3900 #### [facility] [address] [place], [address] Triglyceride [Mass/Vol] 231 mg/dL High [facility] Comment on above: Result Comment: The drugs N-Acetylcysteine and Metamizole may falsely depress this assay. Serum Triglycerides Reference Interval Normal <150 mg/dL Borderline high 150 - 199 mg/dL High 200 - 499 mg/dL Very High > or = 500 mg/dL Performed By: #### L 300.4310, L100.1900, L300.3900 #### [facility] [address] [place], [address] Low density lipoprotein (LDL ) cholesterol measurementOrdered By: Lexus Rivera on 08-12-2024 Cholesterol in LDL [Mass/Vol] 82 mg/dL 0-130 [facility] MCV (mean corpuscular volume ) determinationOrdered By: [place] Abdelrahman on 08-12-2024 MCV (RBC) [Entitic vol] 93.7 fL 80-94 [facility] Mean corpuscular hemoglobin (MCH) determinationOrdered By: [place] Abdelrahman on 08-12-2024 MCH (RBC) [Entitic mass] 31.6 pg 27.0-32.0 [facility] Mean corpuscular hemoglobin concentration (MCHC) determinationOrdered By: [place] Abdelrahman on 08-12-2024 MCHC (RBC) [Mass/Vol] 33.7 g/dL 32-36 [facility] Mean platelet volume determi nationOrdered By: Zhang Abdelrahman on 08-12-2024 Platelet mean volume (Bld) [Entitic vol] 10.1 fL 6.2-12.0 [facility] Microalb:Creat Ratio,Random URon 08-12-2024 Creatinine [Mass/Vol] 219.00 mg/dL Normal NO RAN GE EST. [facility] Comment on above: Performed By: #### L 9200.0000 #### [facility] [address] [place], [place], [address] MALB:CRE 49.3 mg/g CRE High <30 mg/g CRE [facility] Comment on above: Performed By: #### L 9200.0000 #### [facility] [address] [place], [place], [address] MICROALBUMIN,UR 108.0 mg/L Normal NO RANGE EST. [facility] Comment on above: Performed By: #### L 9200.0000 #### [facility] [address] [place], [place], [address] Phosphoruson 08-12-2024 Phosphate [Mass/Vol] 3.6 mg/dL Normal 2.5-4.9 [facility] Comment on above: Performed By: #### L 300.4310, L100.1900, L300.3900 #### [facility] [address] [place], [address] Phosphorus measurementOrdere d By: Lexus Rivera on 08-12-2024 Phosphorus Level 3.6 mg/dL 2.5-4.9 [facility] Platelet countOrdered By: Cy ril Abdelrahman on 08-12-2024 Platelets (Bld) [#/Vol] 187 10*3/uL 150-450 [facility] Potassium measurementOrdered By: Lexus Rivera on 08-12-2024 Potassium [Moles/Vol] 4.1 mmol/L 3.5-5.1 [facility] Prothrombin Time w/INRon INR Coag (PPP) [Relative time] 2.2 {INR} Normal [facility] Comment on above: Performed By: #### L 300.4310, L100.1900, L300.3900 #### [facility] [address] [place], [address] PT Coag (PPP) [Time] 23.9 s High 11.7-14.9 [facility] Comment on above: Performed By: #### L 300.4310, L100.1900, L300.3900 #### [facility] [address] [place], [address] Prothrombin timeOrdered By: [place] Abdelrahman on 08-12-2024 PT Coag (PPP) [Time] 23.9 s High 11.7-14.9 [facility] RBC Auto (Bld) [#/Vol]Ordere d By: [place] Abdelrahman on 08-12-2024 RBC (Bld) [#/Vol] 3.64 10*6/uL Low 4.6-6.2 [facility] Random urine microalbumin me asurementOrdered By: [place] Abdelrahman on 08-12-2024 Urine Random Microalbumin 108.0 mg/L NO RANGE EST. [facility] Serum anion gap measurementO rdered By: Lexus Rivera on 08-12-2024 Anion gap [Moles/Vol] 6 mmol/L 5-15 [facility] Serum globulin measurementOr dered By: Lexus Rivera on 08-12-2024 Globulin (S) [Mass/Vol] 4.3 g/dL High 2.2-4.[address] [facility] Serum or plasma alanine cohen otransferase (ALT) measurementOrdered By: Lexus Rivera on 08-12-2024 ALT [Catalytic activity/Vol] 28 U/L 16-61 [facility] Serum or plasma albumin acacia urement (mass/volume)Ordered By: Lexus Rivera on 08-12-2024 Albumin [Mass/Vol] 3.3 g/dL 3.2-5.0 [facility] Serum or plasma alkaline yumiko sphatase measurementOrdered By: Lexus Rivera on 08-12-2024 ALP [Catalytic activity/Vol] 106 U/L 45-117 [facility] Serum or plasma calcium acacia urement (mass/volume)Ordered By: Lexus Rivera on 08-12-2024 Calcium [Mass/Vol] 9.5 mg/dL 8.5-10.1 [facility] Serum or plasma cholesterol measurement (mass/volume)Ordered By: Lexus Rivera on 08-12-2024 Cholesterol [Mass/Vol] 164 mg/dL <200 [facility] Comment on above: <200 mg/dL Desirable 200-240 mg/dL Borderline >240 mg/dL High Risk Serum or plasma creatinine m easurement (mass/volume)Ordered By: Lexus Rivera on 08-12-2024 Creatinine [Mass/Vol] 1.80 mg/dL High 0.70-1.30 [facility] Comment on above: The validity of the calculated GFR & GFRAA in patients over 70 years has not been determined. Clinical correlation is essential. Serum or plasma urea nitroge n measurement (mass/volume)Ordered By: Lexus Rivera on 08-12-2024 Urea nitrogen [Mass/Vol] 49 mg/dL High 7-18 [facility] Sodium levelOrdered By: Zhao Rivera on 08-12-2024 Sodium [Moles/Vol] 140 mmol/L 136-145 [facility] T4 Free Directon 08-12-2024 T4 FREE DIRECT 0.94 ng/dL Normal 0.76-1.46 [facility] Comment on above: Performed By: #### L 9200.0000 #### [facility] [address] [place], [place], [address] TSH QnOrdered By: Lexus maddox on 08-12-2024 Thyroid Stimulating Hormone (TSH) 1.470 uIU/mL 0.358-3.740 [facility] Thyroid Stim Hormone (TSH)on 08-12-2024 TSH 1.470 uIU/mL Normal 0.358-3.740 [facility] Comment on above: Performed By: #### L 300.4310, L100.1900, L300.3900 #### [facility] [address] [place], [place], [id number] Total proteinOrdered By: Cecilio Rivera on 08-12-2024 Protein [Mass/Vol] 7.6 g/dL 6.4-8.2 [facility] Triglycerides measurementOrd ered By: Lexus Rivera on 08-12-2024 Triglyceride [Mass/Vol] 231 mg/dL High <199 [facility] Comment on above: The drugs N-Acetylcy steine and Metamizole may falsely depress this assay.Serum Triglycerides Reference Interval Normal <150 mg/dL Borderline high 150 - 199 mg/dL High 200 - 499 mg/dL Very High > or = 500 mg/dL Urine albumin/creatinine rat io for detection of microalbuminuriaOrdered By: Zhang Quick on 08-12-2024 Urine Microalbumin/Creatinine Ratio 49.3 mg/g CRE High <30 [facility] Urine creatinine measurement (mass/volume)Ordered By: Zhang Quick on 08-12-2024 Creatinine (U) [Mass/Vol] 219.00 mg/dL NO RANGE EST. [facility] Very low density lipoprotein (VLDL) cholesterol measurementOrdered By: Lexus Rivera on 08-12-2024 VLDL Cholesterol 46 mg/dL High 5-40 [facility] Vitamin D,25 Hydroxyon 08-12 Vitamin D 25-OH 69.0 ng/mL Normal [facility] Comment on above: Result Comment: Mari min D 25(OH) Status Range Deficiency <20 ng/mL (50nmol/L) Insufficiency 20 - 30 ng/mL (50 - 75 nmol/L) Sufficiency 30 - 100 ng/mL (75 - 250 nmol/L) Toxicity >100 ng/mL (>250 nmol/L) Performed By: #### L 9200.0000 #### [facility] [address] [place], [address] White blood cell (WBC) count Ordered By: Zhang Quick on 08-12-2024 WBC (Bld) [#/Vol] 6.4 10*3/uL 4.4-11.0 [facility] OT General Evaluationon 11-0 OT General Evaluation [facility] [address] [place] [address] / REHABILITATION SERVICES INITIAL EVALUATION MR#: [id number] Acct: [id number] Name: TYRELL REYES Rep #: [id number] : 1950 73 From: Payal MARTIN CHT Referring Dr.: Dr. Riki Lizama DO Status: RE G R Insurance: MEDICARE PART A B Eval Date: [facility] Patient's Visit Information Visit Information Visit Information: TYRELL REYES is a 73 year old M, referred to Occupational Therapy by Dr. Riki Lizama DO, with a diagnosis of head neck cancer/ lymphedema. Date of Evaluation: 07/20/24 Occupational Therapist: ZULY Powell/LINDA Garcia Subjective Subjective: This 73 year old male was seen for OT eval with dx with head neck cancer and resulting dx of lymphedema after cancer treatment. pt under went 36 radiation sessions. pt and states they have noticed swelling at his neck and sometimes puffy around his checks. pt states he had been being seen by Speech Therapy but at this time she has told him to stop doing his exercise. pt and pts would like to know what they can do to mtg. pts swelling. 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 04/01/2024: received definitive radiation therapy consisting of 6996 cGy delivered to the gross disease within the larynx and bilateral adenopathy, 5940 cGy delivered to the entire remaining larynx and bilateral neck and 5412 cGy to the high level 2 bilaterally and bilateral supraclavicular fossa all in 33 fractions???He was treated 6 fractions per week because he was not a candidate for chemotherapy.??? Other PMH: CHF, Carcinoma of epiglottis, Smoker, Wears hearing aid and dentures, Alcohol use, Neuropathy, Difficulty swallowing, Sleep apnea, Shortness of breath on exertion, A fib, Hx of CVA (10/2015), HTN, NSTEMI, Upper GI bleed, Chronic renal failure, HLD, Atherosclerosis of coronary artery 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, Stenosis of left subclavian artery, CKD, DDD, Diabetic neuropathy, Osteoarthritis, DM type 2, See EMR for full PMH). Goals Goal: Patient will demonstrate a 20% reduction in edema by discharge: Yes Goal: Patient will demonstrate adequate knowledge of self-massage by the end of the second week.: Yes Goal: Patient will demonstrate adequate knowledge of skin care and precautions by the end of the first week.: Yes Goal: Patient will demonstrate adequate knowledge of therapeutic exercises by discharge.: Yes Goal: Patient will select an appropriate compression garment and demonstrate adequate knowledge of correct donning technique, care and wearing schedule by discharge.: Yes Goal: Patient will voice understanding of need to replace compression garment every four to six months by discharge.: Yes Rehabilitation General Assessment: pt neck circumference 43cm pts head circumference 71cm pt demo with diffuse swelling under his chin with positive c/o of a feeling of fullness pt demo with stage II lymphedema affecting head/neck following his cancer treatment. Pt demo need for skilled OT services 1x week for 4 weeks to ed. pt and pts on life long mtg of lymphedema. Today therapist ed. pt and pts on self manual lymph massage and use of compression device. pt and were given handouts for review. Pt and pts were going to get the compression garment and return for further instructions on SMLD. Due to pts dx. and difficulty with swallowing pt would benefit from use of a Flexitouch head/neck compression device to assist pt in mtg. of his lymphedema. Rehabilitation Potential: Good Anticipated Interventions Anticipated Interventions: Education re Diagnosis, Education re Life-long lymphedema Management, Education re Skin Care and Precautions, Education re Self Massage Techniques and Home Program Visit Plan Frequency: 1x/Week Duration: 4 Weeks General Plan: pt and to get compression device - pt and return for further ed. on self lymph massage TEXT: Thank you for the opportunity to evaluate your patient. For Medicare and Medicare HMO plans, please review the plan of care and approve it. It will need to be FAXED BACK to us at [phone] for Medicare purposes. Please let me know if there are questions or concerns regarding this plan of care. Physician Signature: Date: ____ 07/20/24 1149 CC: Dr. Lexus Rivera, DO; Dr. Riki Lizama DO DD: (more content not included)... Normal [facility] Protime w/INR Fingerstickon 07-14-2024 INR Coag (PPP) [Relative time] 2.5 {INR} Normal [facility] Comment on above: Result Comment: Crit ical Value > 4.0 Performed By: #### L 9200.0000 #### [facility] [address] [place], [address] Protime [place] 26.8 SEC High 11.7-14.9 [facility] Comment on above: Performed By: #### L 9200.0000 #### [facility] [address] [place], [address] Modified Barium Swallow Stud yon 07-13-2024 Modified Barium Swallow Study [facility] Speech Pathology [address] [place] [address] Modified Barium Swallow Study MR#: [id number] Acct: [id number] Name: TYRELL REYES Rep #: [id number] : 1950 73 From: Betsy Nguyen M.A., [facility]-DIRECTOR OF STATE Modified Barium Swallow Patient Information Study Date: 07/13/24 Study Time: 13:00 Direct Billable Minutes: 109 Total Minutes procedure reportin Diagnosis: Carcinoma of the epiglottis C32.1 Referring Physician: Riki Lizama Reason for Referral: Objectively assess swallow function, assess risk for aspiration, and determine recommendations for least restrictive diet textures and compensatory strategies to improve safety of swallow. 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 04/01/2024: received definitive radiation therapy consisting of 6996 cGy delivered to the gross disease within the larynx and bilateral adenopathy, 5940 cGy delivered to the entire remaining larynx and bilateral neck and 5412 cGy to the high level 2 bilaterally and bilateral supraclavicular fossa all in 33 fractions???He was treated 6 fractions per week because he was not a candidate for chemotherapy.??? Dysphagia History secondary to SCC of supraglottic larynx: BSE with DIRECTOR OF STATE 02/11/24 revealed mild oropharyngeal dysphagia and recommended Regular textures / Thin liquids with compensatory strategies to decrease risk for aspiration. DIRECTOR OF STATE recommended MBSS prior to radiation treatment to further assess swallow function and aspiration risk. MBSS 02/15/24 revealed mild oral dysphagia, moderate pharyngoesophageal dysphagia and recommended the following: ???Diet: Regular Textures and Thin Liquids; Comment: STOP food/drink and resume later if concern for reflux, retention, or regurgitation, and resume food/drink at a later time. Compensatory Strategies: Small Bites, Small Sips (Cough and re-swallow after every 1-2 sips), Slow Rate, Sitting upright and Remain sitting upright for 60 minutes after PO intake.??? He followed w/ OP ST during and following radiation treatment to manage his dysphagia. FEES completed 05/28/2024 due to difficulty resuming an oral diet following treatment. FEES revealed mild oral dysphagia, moderate-severe pharyngeal dysphagia w/ moderate-severe edema of the oropharynx, hypopharynx, and larynx. FEES recommended thin liquids w/ use of compensatory strategies. Since study, he has continued to follow w/ ST and has advanced oral diet to puree textures w/ some soft solids and thin liquids. He consumes 3-4, 2-3-oz servings of food daily and 32oz of liquid daily by mouth. PEG tube is utilized to supplement oral intake and pt follows w/ production team leader. He has had significant weight loss and is currently 159.4lbs (down 28lbs since January 2024). Pt was seen by ENT today - pt reported that Dr. Sanchez told him he has persisting edema. Dysphagia History prior to SCC of supraglottic larynx: Hx of MBSS in 2014, which revealed mild pharyngoesophageal dysphagia. No follow up dysphagia therapy was completed. Over the years, he has felt that food/pills get caught in his throat. At times, he must ???bring food back up to get it back down.??? Other PMH: CHF, Carcinoma of epiglottis, Smoker, Wears hearing aid and dentures, Alcohol use, Neuropathy, Difficulty swallowing, Sleep apnea, Shortness of breath on exertion, A fib, Hx of CVA (10/2015), HTN, NSTEMI, Upper GI bleed, Chronic renal failure, HLD, Atherosclerosis of coronary artery 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, Stenosis of left subclavian artery, CKD, DDD, Marijuana use, Diabetic neuropathy, Osteoarthritis, DM type 2, See EMR for full PMH). Current Diet Ordered: Puree w/ some soft solids / Thin liquids Dentition: Edentulous Mental Status: WNL Respiratory Status: Oxygenating on Room Air Penetration-Aspiration Scale Penetration-Aspiration Scale: OBJECTIVE ASSESSMENT OF SWALLOW FUNCTION (QUANTITATIVE ??? PER TRIAL): PENETRATION / ASPIRATION SCALE (BURRELL): 1 = does not enter airway 2 = enters airway/above vocal folds/ejected 3 = enters airway/above vocal folds/not ejected 4 = enters airway/contacts vocal folds/ejected 5 = enters airway/contacts vocal folds/not ejected 6 = enters airway/below vocal folds/ejected 7 = enters airway/below vocal folds/not ejected despite effort 8 = enters airway/below vocal folds/no effort VIDEOFLOROSCOPIC SCALE SCORE (BURRELL): Grade I = aspiration of material that has penetrated into the laryngeal vestibule, intact cough reflex Grade II = aspiration < 10 % of the bolus, intact cough reflex Grade III = aspiration of < 10 % of the bolus, reduced cough ref (more content not included)... Normal [facility] PT D/C Summary (1)on 024 PT D/C Summary (1) [facility] Physical Therapy [facility] [address] [place] [address] / REHABILITATION SERVICES DISCHARGE SUMMARY MR#: [id number] Acct: [id number] Name: TYRELL REYES Rep #: [id number] : 1950 73 From: Freddy Fish PT, Cert. T, OCS Referring Dr.: Dr. Riki Lizama DO Status: RE G RCR Insurance: MEDICARE PART A B [facility] Discharge Summary D/C summary: It has been my pleasure to treat TYRELL REYES referred by Dr. Riki Lizama DO, with the diagnosis of OTHER MALAISE for a total of 8 visit(s). Discharge Date: 07/08/24 Please see the following information for a summary of their discharge status. Subjective Subjective: Doing better ,still some weakness in legs Pain Bilateral Buttocks: Pain Intensity (Out of 10): 0 Bilateral Back: Pain Intensity (Out of 10): 1 Overall Improvement % Improvement: 30 Objective Objective/Function: POSTURE: mild forward posture GAIT: reciprocal pattern slow donald with cane NEURO: denies paresthesia/tingling BALANCE: fair+ FLEXABILITY: hamstrings min tight MMT: ( peak force ) right quads 25.1,left 23.7 ,hamstrings 29.1 right ,left 29.3 ,hip flexion right 28.2,left 27.3 ,ankle fair Goals Goal 1:: This patient to be I with HEP Goal Progress: Goal Met Goal 2:: Patient to improve peak force quads/hams/hip by 5-10# to improve function Goal Progress: Goal Met Goal 3:: Patient to improve CATSIBE score by 5-10 points to improve balance and decrease risk of falls Goal Progress: Goal Met Goal 4:: Patient to improve functional gait assessment score 5 points to decrease falls Goal Progress: Goal Met Goal 5:: Patient to improve LFES score by 5 points to improve QOL and function. Goal Progress: Goal Met Goal 6:: Patient to walk safely with falls Goal Progress: Goal Met Plan Plan: D/C D/C Information Discharge Comments: hep d/c sentence: If there are questions or concerns regarding this patient's physical therapy, please feel free to call me at [phone]. Thank you for the referral of this patient. Sincerely, Freddy Fish, PT, Cert MDT, OCS Balance/Gait/Functional tests Balance/Special Test Scores Functional Gait Assessment Score: 18 % Disability: 40.0000 CATSIB Score (Max score 120 seconds): 65 Lower Extremity Functional Score: 31 30 Second Chair Rise Test Seconds: 7 Improvement % Improvement: 30 07/08/24 1302 CC: Dr. Lexus Rivera DO; Dr. Riki Lizama DO JLA Signed Normal [facility] SP/HP.XAVIERVomarisa 07-08-2024 SP/HP.SPRV [facility] Speech Pathology [facility] [address] [place] [address]. [address] [place] [id number] / REEVALUATION / MEDICARE RECERTIFICATION SPEECH THERAPY MR#: [id number] Acct: [id number] Name: TYRELL REYES Rep #: [id number] : 1950 73 From: Betsy Nguyen M.A., CCC-DIRECTOR OF STATE Referring DrRadha: Dr. Riki Lizama DO Insurance: MEDICARE PART A B [facility] Visit History Visit Info Date of Eval: 02/11/24 Visit: 11 Rn Assessment: JORDYN History Attending Doctor: Referring Doctor: Reason for Referral: PHYSICAL DECONDITIONING. 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 04/01/2024: received definitive radiation therapy consisting of 6996 cGy delivered to the gross disease within the larynx and bilateral adenopathy, 5940 cGy delivered to the entire remaining larynx and bilateral neck and 5412 cGy to the high level 2 bilaterally and bilateral supraclavicular fossa all in 33 fractions???He was treated 6 fractions per week because he was not a candidate for chemotherapy.??? Dysphagia History secondary to SCC of supraglottic larynx: BSE with DIRECTOR OF STATE 02/11/24 revealed mild oropharyngeal dysphagia and recommended Regular textures / Thin liquids with compensatory strategies to decrease risk for aspiration. DIRECTOR OF STATE recommended MBSS prior to radiation treatment to further assess swallow function and aspiration risk. MBSS 02/15/24 revealed mild oral dysphagia, moderate pharyngoesophageal dysphagia and recommended the following: ???Diet: Regular Textures and Thin Liquids; Comment: STOP food/drink and resume later if concern for reflux, retention, or regurgitation, and resume food/drink at a later time. Compensatory Strategies: Small Bites, Small Sips (Cough and re-swallow after every 1-2 sips), Slow Rate, Sitting upright and Remain sitting upright for 60 minutes after PO intake.??? He followed w/ OP ST during and following radiation treatment to manage his dysphagia. FEES completed 05/28/2024 due to difficulty resuming an oral diet following treatment. FEES revealed mild oral dysphagia, moderate-severe pharyngeal dysphagia w/ moderate-severe edema of the oropharynx, hypopharynx, and larynx. FEES recommended thin liquids w/ use of compensatory strategies. Since study, he has continued to follow w/ ST and has advanced oral diet to puree textures w/ some soft solids and thin liquids. He consumes 1-2, 4-oz servings of food daily and 32oz of liquid daily by mouth. PEG tube is utilized to supplement oral intake and pt follows w/ production team leader. He has had significant weight loss and is currently 159.4lbs (down 28lbs since January 2024). Dysphagia History prior to SCC of supraglottic larynx: Hx of MBSS in 2014, which revealed mild pharyngoesophageal dysphagia. No follow up dysphagia therapy was completed. Over the years, he has felt that food/pills get caught in his throat. At times, he must ???bring food back up to get it back down.??? Other PMH: CHF, Carcinoma of epiglottis, Smoker, Wears hearing aid and dentures, Alcohol use, Neuropathy, Difficulty swallowing, Sleep apnea, Shortness of breath on exertion, A fib, Hx of CVA (10/2015), HTN, NSTEMI, Upper GI bleed, Chronic renal failure, HLD, Atherosclerosis of coronary artery 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, Stenosis of left subclavian artery, CKD, DDD, Marijuana use, Diabetic neuropathy, Osteoarthritis, DM type 2, See EMR for full PMH). 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 Goal 1 Status: PROGRESSING - Pt has progress from full thin liquid diet recommended by FEES on 05/28/2024 to a diet of primarily purees (some soft solids) and thin liquids w/ use of PEG to meet a majority of nutrition/hydration needs. Previous Goal #2: The patient will complet (more content not included)... Normal [facility] Radiation Oncology Visiton 1 Radiation Oncology Visit [facility] [place] [address] OFFICE VISIT Date of Service: 06/30/24 1016 MR#: [id number] Acct: [id number] Name: TYRELL REYES Rep #: [id number] : 1950 From: Riki Lizama DO Age/Sex: 73/M Location: [facility] Status: Signed Intake Vital Signs 04/25/24 10:38 06/15/24 11:41 06/30/24 10:17 Height 5 ft 7 in 5 ft 7 in 5 ft 7 in Weight: 159 lb 4 oz BMI 24.9 BP 104/65 Blood Pressure Location Rt brachial Position Sitting Respiration 16 Pulse 85 Pulse Source Monitor Temp 96.6 F L Temperature Source Temporal Artery Pulse Oximetry (%) 98 Oxygen Delivery Method room air Intake Visit Reasons: 2 MONTH H/N, REVIEW PET Is patient in pain?: No Allergies Iodinated Contrast Media (iodine contrast) Adverse Reaction (Mild, Verified 06/30/24 10:17) Vomiting metformin Adverse Reaction (Verified 06/30/24 10:17) Nausea/Vom/Diarrhea Medications ???Medication ???Instructions ???Recorded ???Confirmed ???Type pregabalin 150 mg capsule 150 mg PO BID pain 11/06/15 06/30/24 History warfarin 1 mg tablet 0.5 mg PO SUSA 02/22/24 06/30/24 History warfarin 1 mg tablet 1 mg PO MOTUWETHFR 02/22/24 06/30/24 History oxycodone 5 mg capsule 5 mg PO BID PRN 05/25/24 06/30/24 History Have you fallen in the past year?: Yes PFSH PFSH Medical History CPAP (continuous positive airway pressure) dependence Cancer Macular degeneration of right eye Carcinoma of epiglottis Smoker Wears hearing aid Wears dentures Alcohol use Ambulates with cane Neuropathy Back pain Blackout Difficulty swallowing Former smoker Shortness of breath on exertion Leg cramps History of edema Stroke/cerebrovascular accident History of atrial fibrillation History of echocardiogram History of stress test Cardiology follow-up encounter Chronic diastolic (congestive) heart failure Hypertension Acute on chronic diastolic (congestive) heart failure History of non-ST elevation myocardial infarction (NSTEMI) (11/02/19) Upper GI bleed (11/02/19) Paroxysmal atrial fibrillation History of CVA (cerebrovascular accident) (10/2015) Chronic renal failure Claudication Peripheral vascular occlusive disease Hyperlipidemia Atherosclerosis of coronary artery 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 Stenosis of left subclavian artery Anxiety and depression CKD (chronic kidney disease) DDD (degenerative disc disease) Marijuana use Narcolepsy Diabetic neuropathy Osteoarthritis Type 2 diabetes mellitus Lacunar infarct, acute Home Medications ???Medication ???Instructions ???Recorded ???Last Taken ???Type pregabalin 150 mg capsule 150 mg PO BID pain 11/06/15 10/12/20 22:00 History warfarin 1 mg tablet 0.5 mg PO SUSA 02/22/24 02/18/24 History warfarin 1 mg tablet 1 mg PO MOTUWETHFR 02/22/24 02/18/24 History oxycodone 5 mg capsule 5 mg PO BID PRN 05/25/24 Unknown History Allergy/AdvReac Type Severity Reaction Status Date / Time Iodinated Contrast Media AdvReac Mild Vomiting Verified 06/30/24 10:17 (iodine contrast) metformin AdvReac Nausea/Vom/ Verified 06/30/24 10:17 Diarrhea Family History Brother Cancer lung Surgical History History of laryngoscopy History of cataract surgery History of colonoscopy History of cholecystectomy ( 10/2020) History of left heart catheterization (11/13/04) History of angioplasty of peripheral vessel (09/2018) Social History Smoking Status: Former smoker quit date: 09/14/97 Tobacco: How many years used: 45 how long ago did patient quit smokin years ago alcohol intake: current alcohol intake frequency: 0-2 drinks per day Alcohol type: hard liquor substance use type: marijuana caffeine: Yes Type: carbonated beverages Number of servings: 1 Diagnosis: Tyrell Reyes is a 73-year-old male diagnosed with clinical stage NALINI (cT2 cN2c M0) 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 From 02/22/2024 ??? 04/01/2024 he received definitive radiation. History of Present Illness: 12/24/2023: Patient was evaluated by ENT.??? This demonstrated a mass on the laryngeal surface of the epiglottis.??? No apparent abnormality noted within the glottis or subglottis. 01/07/2024: CT neck with contrast was performed.??? This demonstrated a suggestion of thickening of the epiglottis especially of the midline and to the right side extending toward the AE fold o (more content not included)... Normal [facility] PET/CT Tumor Base -Thigh Sub son 06-21-2024 PET/CT Tumor Base -Thigh Subs [facility] Imaging Services [address] [place] [address] PET/CT Tumor Base -Thigh Subs MR#: [id number] Acct: [id number] Name: TYRELL REYES Rep #: [id number] : 1950 M 73 From: Ricky Galvez PCP: Dr. Lexus Rivera, DO Status: REG RCR Study: PET/CT Tumor Base -Thigh Subs Date of Exam: Exam# [id number] Ordering Dr: Riki Lizama DO [id number] EXAMINATION: FDG PET-CT INDICATIONS: A 73-year-old male with history of head and neck carcinoma presenting for restaging examination. COMPARISON EXAMINATION: FDG PET-CT study dated 02/02/24 INDEX LESION SIZE SUV INTERPRETATION PERSISTENT: bilateral thoracic perihilum 14.9-mm comp to 15.7-mm (02/02/24) 3.6 comp to 2.7 (02/02/24) Fulfills borderline quantitative criteria for viable neoplasm, may necessitate histopathologic investigation to exclude neoplasm PREVIOUS: left lateral neck, laryngeal structures Demonstrate metabolic resolution on the current examination TECHNIQUE: Following the intravenous administration of 15.7 mCi of F-18 deoxyglucose via the right antecubital fossa, right hand, multiplanar image acquisitions of the neck, chest, abdomen and pelvis to level of mid thigh, obtained at one hour post radiopharmaceutical administration contemporaneously interpreted with the current CT of the neck, chest, abdomen and pelvis, to level of mid thigh, dated 06/21/24 via coregistration and FDG PET-CT study dated 02/02/24 reveals: BLOOD GLUCOSE LEVEL:?? 128 mg/dl?HEIGHT:? 67 inches?WEIGHT: 165 lbs. FINDINGS: HEAD/NECK: There is no evidence of abnormal increased glucose metabolism in the pharyngeal mucosal space, parapharyngeal space, bilateral-lateral and anterior neck, hypopharynx and distribution of the laryngeal structures. The visualized portion of the cerebral cortical-subcortical structures demonstrate symmetric and preserved glucose metabolism. The prior defined laryngeal and left lateral neck hypermetabolic foci are not visualized on the current examination. CHEST: Redefined increased tracer uptake is noted in the right-left thoracic perihilum. The calculated maximal standard uptake value is 3.6, compared to 2.7. The maximal axial diameter of the largest corresponding soft tissue density is 14.9-mm, compared to 15.7-mm. Prominent radiopharmaceutical concentration is identified in the left ventricular myocardium commensurate with the [place]. Previously defined morphologic-anatomic changes noted on review of CT of the chest dated 02/02/24, are essentially unchanged on the current examination. ABDOMEN/PELVIS: Normal physiologic distribution of the radiopharmaceutical is apparent in the hepatic and splenic parenchyma, both renal units, bladder and visualized intestinal tract. Diffuse radiopharmaceutical concentration is noted in all four quadrants of the abdomen and pelvis. Review of CT of the abdomen and pelvis dated 02/02/24 demonstrates no significant interval change. SKELETAL: Degenerative changes are noted in the cervical, thoracic and lumbar spine without evidence of increased radiopharmaceutical concentration. PET/PET/CT Tumor Base -Thigh Subs IMPRESSION: 1. Increased radiopharmaceutical concentration redefined in the bilateral thoracic perihilum fulfills borderline quantitative criteria for viable neoplasm. Histopathologic analysis may be indicated. 2. There is interim resolution of the prior defined laryngeal structure and left lateral neck hypermetabolic foci. 3. Overall, compared to the previous FDG PET-CT study dated 02/02/24, there is potential viable neoplasm discerned in the bilateral thoracic perihilum warranting probable histopathologic investigation. There is interim resolution of the prior defined laryngeal structure, left lateral neck hypermetabolic focus. Electronic Signature Ricky Leon D.O. Accurate Quantification of SUVs for this report are calculated using the exclusive [employer] Technology, ([place].S. Patent No. [phone] [phone] 983 B2 US [phone] [place] patent [phone] ). Standardization and correction of the FDG SUV metric exclusively available with GetThis intellectual property, allow for vendor non-specific objective quantitative sequential FDG PET-CT comparison and otherwise unobtainable optimization of the sensitivity and specificity of the examination. [email or web address] [email or web address] Electronically Signed: Ricky Leon DO at 16:19 EDT , CC: Dr. Lexus Rivera, DO; Dr. Riki Lizama, DO Laundromat Worker: Signed Normal [facility] Protime w/INR Fingerstickon 06-17-2024 INR Coag (PPP) [Relative time] 2.3 {INR} Normal [facility] Comment on above: Result Comment: Crit ical Value > 4.0 Performed By: #### L 9200.0000 #### [facility] [address] [place], [address] Protime [place] 24.0 SEC High 11.7-14.9 [facility] Comment on above: Performed By: #### L 9200.0000 #### [facility] [address] [place], [place], [id number] Inital Evaluation (1) - PTon 06-10-2024 Inital Evaluation (1) - PT [facility] Physical Therapy [address] [place] [address] / REHABILITATION SERVICES INITIAL EVALUATION MR#: [id number] Acct: [id number] Name: TYRELL REYES Rep #: [id number] : 1950 73 From: Kya Norwood PT. MD At[place], OCS Referring Dr.: Dr. Riki Lizama DO Status: RE G RCR Insurance: MEDICARE PART A B [facility] Patient's Visit Information Visit Information Visit Information: TYRELL REYES is a 73 year old M referred to Physical Therapy by Dr. Riki Lizama DO with a diagnosis of OTHER MALAISE. Date of Evaluation: 06/10/24 Physical Therapist: Freddy Fish PT, Cert ALEXANDRA, OCS Visit Plan Frequency: 2x /Week Duration: 4 Weeks Plan: PATIENT IS RISK OF FALLS CA -THROAT FINISHED RADIATION HAS PEG TUBE ,DECREASE NUTRITION PT INTERVENTIONS BALANCE TRAINING ,ENDURANCE EX'S ,GRADED BLE STRENGTHENING ,AND FUNCTIONAL STRENGTHENING Subjective Subjective: This 73 y/o female presents to physical therapy with generalized weakness.Patient has been diagnosed with throat CA squamous cell carcinoma of the supraglottic larynx.Patient has had radiation at hospital which completed ` month. Patient since c/o weakness . Patient has multiple falls. Patient last fall Thursday . Patient falls due to falls . Needs to use cane. Patient has not been eating. Patient has peg tube. Patient has difficulty sleeping. Patient denies paresthesia/tingling. Patient condition affects QOL and function/gait and risk for falls. Patient goals to decrease falls and get stronger, VOCATION: [employer] SOCIAL: marreid Pain Bilateral Buttocks: Pain Intensity (Out of 10): 0 Bilateral Back: Pain Intensity (Out of 10): 4 Objective Objective: POSTURE: mild forward posture GAIT: reciprocal pattern slow donald in PT dept ( uses cane at home) NEURO: denies paresthesia/tingling BALANCE: fair+ FLEXABILITY: hamstrings min tight MMT: ( peak force ) right quads 20.1,left 19.7 ,hamstrings 16.1 right ,left 17.3 ,hip flexion right 23.2,left 21.3 ,ankle fair Balance/Special Test Scores Functional Gait Assessment Score: 18 % Disability: 40.0000 CATSIB Score (Max score 120 seconds): 65 Lower Extremity Functional Score: 20 30 Second Chair Rise Test Seconds: 7 Goals Goal 1:: This patient to be I with HEP Goal Time Frame: 4-6 Weeks Goal 2:: Patient to improve peak force quads/hams/hip by 5-10# to improve function Goal Time Frame: 4-6 Weeks Goal 3:: Patient to improve CATSIBE score by 5-10 points to improve balance and decrease risk of falls Goal Time Frame: 4-6 Weeks Goal 4:: Patient to improve functional gait assessment score 5 points to decrease falls Goal Time Frame: 4-6 Weeks Goal 5:: Patient to improve LFES score by 5 points to improve QOL and function. Goal Time Frame: 4-6 Weeks Goal 6:: Patient to walk safely with falls Goal Time Frame: 4-6 Weeks Rehabilitation Potential Physical Therapy Diagnosis: This patient is deconditioned due CA recovery from radiation has peg tube and decrease nutrition with poor endurance ,weakness ,fall risk due to multiple falls and decrease gait thus benefit from skilled PT Rehabilitation Potential: Fair Anticipated Interventions Patient/Client Instruction: Educate patient on: Condition and Plan of Care For the Purpose of:: To improve muscle performance and motor function, To improve ability to perform ADL's, To increase tolerance to activity/condition/posit ion, To improve ability of physical actions for home/community/work/leis ure, To improve gait and locomotor functions, To improve endurance, To improve balance, To assume or resume ADL's and To improve tolerance to ADL's Therapeutic Exercise to Include: Strength training, Power training, Endurance training, Balance training and Gait and locomotor training Comment: BLE QUADS/HAMS/HIP For the Purpose of:: To improve muscle performance and motor function, To improve ability to perform ADL's, To increase tolerance to activity/condition/posit ion, To improve ability of physical actions for home/community/work/leis ure, To improve gait and locomotor functions, To improve endurance, To improve balance, To improve safety with gait, To assume or resume ADL's, To reduce risk of recurrence and To improve tolerance to ADL's Text: Thank you for the opportunity to evaluate your patient. For Medicare and Medicare HMO plans, please review the plan of care and approve it. It will need to be FAXED BACK to us at [phone] for Medicare purposes. For Medicare only, by signing this I certify the plan of care. Please let me know if there are questions or concerns regarding this plan of care. Physician Signature: Date: ____ 06/10/24 1357 CC: Dr. Lexus Rivera DO; Dr. Riki Lizama DO DT: (more content not included)... Normal [facility] Protime w/INR Fingerstickon 06-03-2024 INR Coag (PPP) [Relative time] 2.1 {INR} Normal [facility] Comment on above: Result Comment: Crit ical Value > 4.0 Performed By: #### L 9200.0000 #### [facility] [address] [place], [address] Protime [place] 22.3 SEC High 11.7-14.9 [facility] Comment on above: Performed By: #### L 9200.0000 #### [facility] [address] [place], [address] BD BONE DENSITY DEXA AXIAL S KELETONon 05-31-2024 BD BONE DENSITY DEXA AXIAL SKELETON ORIGINAL EXAMINATION: BONE DENSITOMETRY05/30/2024 10:40 am TECHNIQUE: Dual energy bone densitometry lumbar spine and left hip. COMPARISON: None HISTORY: Reason for Exam: Osteoporosis Screening FINDINGS: L1-L4: T score= 6.4 BMD= 1.791 g/cm2 Left femoral neck: T score= -0.9 BMD= 0.811 g/cm2 Left hip: T score= 0.0 BMD= 1.028 g/cm2 FRAX score: Not calculated. The BHOF f/k/a NOF recommends that FDA-approved medical therapies be considered in post-menopausal women and men age >/= 50 years with a: * Hip or vertebral fracture, or * T-score of /= 20% for major osteoporotic fractures or * >/= 3% for hip fractures All treatment decisions require clinical judgement and consideration of individual patient factors, including patient preferences, comorbidities, previous drug use, risk factors not captured in the FRAX registered model (e.g., frailty, falls, vitamin D deficiency, increased bone turnover, interval significant decline in bone density) and possible under- or over-estimation of fracture risk by FRAX. IMPRESSION: Normal bone mineral density. Interpreted by: Byron Gonzales MD Preliminary Report By: Byron Gonzales MD Electronically signed By Byron Gonzales MD Dictated Date: 05/31/2024 12:45:30 PM Prelim Date: 05/31/2024 12:46:20 PM Sign Date: 05/31/2024 12:46:20 PM Ordering Provider: LEXUS RIVERA [facility] Protime w/INR Fingerstickon 05-26-2024 INR Coag (PPP) [Relative time] 1.4 {INR} Normal [facility] Comment on above: Result Comment: Crit ical Value > 4.0 Performed By: #### L 9200.0000 #### [facility] [address] [place], [address] Protime [place] 15.8 SEC High 11.7-14.9 [facility] Comment on above: Performed By: #### L 9200.0000 #### [facility] [address] [place], [place], [address] Cardiology Visit Reporton Cardiology Visit Report [facility] [address] [place], [place] [address] OFFICE VISIT Date of Service: 05/25/24 MR#: [id number] Acct: [id number] Name: TYRELL REYES Rep #: [id number] : 1950 Provider: SUSANNA White rts Age/Sex: 73/M Location: [facility] Status: Signed HPI [facility] History of Present Illness Details: This is a 73-year-old gentleman who presents here today for a cardiovascular follow-up. He does have a history of coronary artery disease with mild disease noted in his LAD, circumflex and a totally occluded RCA with [id number] collaterals. He also has a history of hypertension, peripheral arterial disease with stenting to his left subclavian, right iliac stenting in 2019, chronic kidney disease, diabetes and hyperlipidemia. In August 2009, he had a hospitalization for atrial fibrillation with RVR. His Plavix was discontinued at that time and he was started on an anticoagulant. He underwent a stress test on 07/21/2022 which was negative for ischemia. His echocardiogram on 07/21/2022 demonstrated an ejection fraction of 60%, and no wall motion abnormality. He was diagnosed with throat cancer, he has recently finished radiation. From a cardiac standpoint, the patient is doing well. He denies any palpitations, chest pain, pressure or heaviness. He does have SOB with exertion and at rest. This is nothing new or worsening. He denies Orthopnea, and PND. He does not have bleeding issues; no blood in urine, stool or nosebleeds. He does acknowledge a slight decrease in energy level. He denies myalgias, or claudication. He does not have edema, or sudden weight gain. He does acknowledge a decrease in energy level-he is attributing this to his cancer and status post radiation. He does have occasional lightheadedness with quick positional changes. He denies dizziness, syncopal, near syncopal or headaches. He does have an appointment next week with the cancer center. 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 Required: No Is patient in pain?: No Allergies Iodinated Contrast Media (iodine contrast) Adverse Reaction (Mild, Verified 05/25/24 09:27) Vomiting metformin Adverse Reaction (Verified 05/25/24 09:27) Nausea/Vom/Diarrhea Medications ???Medication ???Instructions ???Recorded ???Confirmed ???Type pregabalin 150 mg capsule 150 mg PO BID pain 11/06/15 05/25/24 History warfarin 1 mg tablet 0.5 mg PO SUSA 02/22/24 05/25/24 History warfarin 1 mg tablet 1 mg PO MOTUWETHFR 02/22/24 05/25/24 History oxycodone 5 mg capsule 5 mg PO BID PRN 05/25/24 05/25/24 History Have you fallen in the past year?: Yes Nurse's Note: no medication list. patient states he has not been taking his medication for 4 months due to throat cancer [facility] Medical History CPAP (continuous positive airway pressure) dependence Cancer Macular degeneration of right eye Carcinoma of epiglottis Smoker Wears hearing aid Wears dentures Alcohol use Ambulates with cane Neuropathy Back pain Blackout Difficulty swallowing Former smoker Shortness of breath on exertion Leg cramps History of edema Stroke/cerebrovascular accident History of atrial fibrillation History of echocardiogram History of stress test Cardiology follow-up encounter Chronic diastolic (congestive) heart failure Hypertension Acute on chronic diastolic (congestive) heart failure History of non-ST elevation myocardial infarction (NSTEMI) (11/02/19) Upper GI bleed (11/02/19) Paroxysmal atrial fibrillation History of CVA (cerebrovascular accident) (10/2015) Chronic renal failure Claudication Peripheral vascular occlusive disease Hyperlipidemia Atherosclerosis of coronary artery 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 Stenosis of left subclavian artery Anxiety and depression CKD (chronic kidney disease) DDD (degenerative disc disease) Marijuana use Narcolepsy Diabetic neuropathy Osteoarthritis Type 2 diabetes mellitus Lacunar infarct, acute Surgical History History of laryngoscopy History of cataract surgery History of colonoscopy History of cholecystectomy ( 10/2020) History of left heart catheterization (11/13/04) History of angioplasty of peripheral vessel (09/2018) Family History Brother Cancer lung Social History Smoking Status: Former smoker (more content not included)... Normal [facility] - CoagulationOrde red By: Mynor Luke on 01-18-2024 INR Coag (Bld) [Relative time] 1.7 {INR} [facility] PT Coag (PPP) [Time] 19.7 s 11.7-14.9 [facility] Thin prep Papanicolaou smear with manual screeningOrdered By: Elton Sanchez on 01-18-2024 Thin prep Papanicolaou smear with manual screening 131 mg/dL 74-106 [facility] Comment on above: MANAGEMENT OF PATIEN T CARE PER NURSING PROTOCOL Whole blood prothrombin time Ordered By: Elton Sanchez on 01-18-2024 PT Coag (Bld) [Time] 16.6 s 11.7-14.9 [facility] Basophil percentageOrdered B y: Elton Sanchez on 01-11-2024 Chloride [Moles/Vol] 108 mmol/L 98-107 [facility] Glucose [Mass/Vol] 149 mg/dL 74-106 [facility] Comment on above: Fasting Glucose resu lt greater than or equal to 126 mg/dL suggests DIABETES MELLITUS per A.D.A. criteria. Hemoglobin (Bld) [Mass/Vol] 12.5 g/dL 13.0-16.5 [facility] Potassium [Moles/Vol] 4.2 mmol/L 3.5-5.1 [facility] Sodium [Moles/Vol] 140 mmol/L 136-145 [facility] WBC (Bld) [#/Vol] 7.6 10*3/uL 4.4-11.0 [facility] Determination of erythrocyte mean corpuscular volume (MCV)Ordered By: Elton Sanchez on 01-11-2024 MCV (RBC) [Entitic vol] 92.4 fL 80-94 [facility] Erythrocyte distribution wid th ratioOrdered By: Elton Sanchez on 01-11-2024 Erythrocyte distribution width (RBC) [Ratio] 13.3 % 11.6-14.6 [facility] Erythrocyte distribution wid th standard deviationOrdered By: Elton Sanchez on 01-11-2024 Erythrocyte distribution width (RBC) [Entitic vol] 45.4 fL 35.1-43.9 [facility] Hematocrit Auto (Bld) [Volum e fraction]Ordered By: Elton Sanchez on 01-11-2024 Hematocrit (Bld) [Volume fraction] 39.1 % 40-54 [facility] - Chemistry and C hemistry - challengeOrdered By: Elton Sanchez on 01-11-2024 CO2 [Moles/Vol] 25.0 mmol/L 21.0-32.0 [facility] Urea nitrogen/Creatinine [Mass ratio] 11.5 mg/mg 10-20 [facility] - Hematology and Cell countsOrdered By: Elton Sanchez on 01-11-2024 MCH (RBC) [Entitic mass] 29.6 pg 27.0-32.0 [facility] MCHC (RBC) [Mass/Vol] 32.0 g/dL 32-36 [facility] Platelet mean volume (Bld) [Entitic vol] 10.2 fL 6.2-12.0 [facility] Platelets (Bld) [#/Vol] 191 10*3/uL 150-450 [facility] No Panel InformationOrdered By: Elton Sanchez on 01-11-2024 Estimated GFR (MDRD) Amer 34 mL/min >60 [facility] Comment on above: GFR Calc Estimated GFR (MDRD) Non-Af Amer 28 mL/min >60 [facility] Comment on above: Non- GFR Calc RBC Auto (Bld) [#/Vol]Ordere d By: Elton Sanchez on 01-11-2024 RBC (Bld) [#/Vol] 4.23 10*6/uL 4.6-6.2 [facility] Serum or plasma calcium acacia urement (mass/volume)Ordered By: Elton Sanchez on 01-11-2024 Calcium [Mass/Vol] 8.9 mg/dL 8.5-10.1 [facility] Serum or plasma creatinine m easurement (mass/volume)Ordered By: Elton Sanchez on 01-11-2024 Creatinine [Mass/Vol] 2.44 mg/dL 0.70-1.30 [facility] Comment on above: The validity of the calculated GFR & GFRAA in patients over 70 years has not been determined. Clinical correlation is essential. Serum or plasma urea nitroge n measurement (mass/volume)Ordered By: Elton Sanchez on 01-11-2024 Urea nitrogen [Mass/Vol] 28 mg/dL 7-18 [facility] Thin prep Papanicolaou smear with manual screeningOrdered By: Elton Sanchez on 01-11-2024 Thin prep Papanicolaou smear with manual screening 7 5-15 [facility] Basophil percentageOrdered B y: Elton Sanchez on 01-07-2024 Creatinine [Mass/Vol] 2.1 mg/dL 0.70-1.30 [facility] Laboratory - Chemistry and C hemistry - challengeOrdered By: Elton Sanchez on 01-07-2024 GFR/1.73 sq M.predicted among non-blacks MDRD (S/P/Bld) [Vol rate/Area] 33.0000 mL/min/{1.73_m2} >60 [facility] - CoagulationOrde red By: Zhang Quick on 01-07-2024 INR Coag (Bld) [Relative time] 2.8 {INR} [facility] PT Coag (PPP) [Time] 28.9 s 11.7-14.9 [facility] LABORATORYOrdered By: Gianna Perez on 12-01-2023 Amphetamines Screen Ql (U) Negative *NA* (12/01/23 4:27 PM) Invalid Interpretation Code Negative AO ADM SS Barbiturates Screen Ql (U) Negative *NA* (12/01/23 4:27 PM) Invalid Interpretation Code Negative AO ADM SS Benzodiazepines Ql (U) Negative *NA* (12/01/23 4:27 PM) Invalid Interpretation Code Negative AO ADM SS Benzoylecgonine Screen Ql (U) Negative *NA* (12/01/23 4:27 PM) Invalid Interpretation Code Negative AO ADM SS Cannabinoids Screen Ql (U) Positive *ABN* (12/01/23 4:27 PM) Invalid Interpretation Code Negative AO ADM SS Methadone Screen Ql (U) Negative *NA* (12/01/23 4:27 PM) Invalid Interpretation Code Negative AO ADM SS Opiates Screen Ql (U) Negative *NA* (12/01/23 4:27 PM) Invalid Interpretation Code Negative AO ADM SS Phencyclidine Ql (U) Negative *NA* (12/01/23 4:27 PM) Invalid Interpretation Code Negative AO ADM SS Urine Drugs screened: See Below 1 (12/01/23 4:27 PM) Normal AO Chemistry S Comment on above: Interpretive Data: T his drug screen is a presumptive screening only. No confirmation will be performed unless requested. Drugs screened include: Threshold Amphetamines/Methamphetamines 1,000 ng/mL Barbiturates 200 ng/mL Benzodiazepine metabolites 200 ng/mL Cannabinoids (THC metabolites) 50 ng/mL Cocaine 300 ng/mL Opiates 300 ng/mL Methadone 300 ng/mL Phencyclidine (PCP) 25 ng/mL Testing has been performed FOR MEDICAL PURPOSES ONLY. EDUARDOLeslie 12-01-2023 Amphetamine (u) Negative Normal Negative [facility] ([place]) Comment on above: Performed By: #### U DRUG #### [place] [address] Barbiturate (u) Negative Normal Negative [facility] ([place]) Comment on above: Performed By: #### U DRUG #### [place] [address] Benzodiazepine (u) Negative Normal Negative [facility] ([place]) Comment on above: Performed By: #### U DRUG #### [address] [address] Cannabinoid (u) Positive Abnormal Negative [facility] ([place]) Comment on above: Performed By: #### U DRUG #### [place] [address] Cocaine Ql (U) Negative Normal Negative [facility] ([place]) Comment on above: Performed By: #### U DRUG #### [address] [address] Methadone Ql (U) Negative Normal Negative [facility] ([place]) Comment on above: Performed By: #### U DRUG #### [place] [address] Opiate (u) Negative Normal Negative [facility] ([place]) Comment on above: Performed By: #### U DRUG #### [address] [address] PCP (u) Negative Normal Negative [facility] ([place]) Comment on above: Performed By: #### U DRUG #### [address] [address] Urine Drugs screened: See Below Normal [facility] ([place]) Comment on above: Result Comment: This drug screen is a presumptive screening only. No confirmation will be performed unless requested. Drugs screened include: Threshold Amphetamines/Methamphetamines 1,000 ng/mL Barbiturates 200 ng/mL Benzodiazepine metabolites 200 ng/mL Cannabinoids (THC metabolites) 50 ng/mL Cocaine 300 ng/mL Opiates 300 ng/mL Methadone 300 ng/mL Phencyclidine (PCP) 25 ng/mL Testing has been performed FOR MEDICAL PURPOSES ONLY. Performed By: #### U DRUG #### [place] [address] Laboratory - CoagulationOrde red By: Zhang Quick on 11-25-2023 INR Coag (Bld) [Relative time] 2.0 {INR} [facility] PT Coag (PPP) [Time] 22.9 s 11.7-14.9 [facility] Basophil percentageOrdered B y: Rianna Barnhart on 11-16-2023 Basophil percentage 2.9 mg/dL 2.5-4.9 [facility] Chloride [Moles/Vol] 110 mmol/L 98-107 [facility] Glucose [Mass/Vol] 188 mg/dL 74-106 [facility] Comment on above: Fasting Glucose resu lt greater than or equal to 126 mg/dL suggests DIABETES MELLITUS per A.D.A. criteria. Hemoglobin (Bld) [Mass/Vol] 12.4 g/dL 13.0-16.5 [facility] Potassium [Moles/Vol] 4.3 mmol/L 3.5-5.1 [facility] Sodium [Moles/Vol] 138 mmol/L 136-145 [facility] WBC (Bld) [#/Vol] 6.3 10*3/uL 4.4-11.0 [facility] Determination of erythrocyte mean corpuscular volume (MCV)Ordered By: Rianna Barnhart on 11-16-2023 MCV (RBC) [Entitic vol] 92.5 fL 80-94 [facility] Erythrocyte distribution wid th ratioOrdered By: Rianna Barnhart on 11-16-2023 Erythrocyte distribution width (RBC) [Ratio] 12.9 % 11.6-14.6 [facility] Erythrocyte distribution wid th standard deviationOrdered By: Rianna Barnhart on 03-04-2024 Erythrocyte distribution width (RBC) [Entitic vol] 43.7 fL 35.1-43.9 [facility] Hematocrit Auto (Bld) [Volum e fraction]Ordered By: Rianna Barnhart on 11-16-2023 Hematocrit (Bld) [Volume fraction] 38.5 % 40-54 [facility] - Chemistry and C hemistry - challengeOrdered By: Rianna Barnhart on 11-16-2023 CO2 [Moles/Vol] 26.0 mmol/L 21.0-32.0 [facility] Urea nitrogen/Creatinine [Mass ratio] 12.7 mg/mg 10-20 [facility] - Hematology and Cell countsOrdered By: Rianna Barnhart on 11-16-2023 MCH (RBC) [Entitic mass] 29.8 pg 27.0-32.0 [facility] MCHC (RBC) [Mass/Vol] 32.2 g/dL 32-36 [facility] Platelet mean volume (Bld) [Entitic vol] 10.0 fL 6.2-12.0 [facility] Platelets (Bld) [#/Vol] 180 10*3/uL 150-450 [facility] No Panel InformationOrdered By: Rianna Barnhart on 11-16-2023 Estimated GFR (MDRD) Amer 38 mL/min >60 [facility] Comment on above: GFR Calc Estimated GFR (MDRD) Non-Af Amer 31 mL/min >60 [facility] Comment on above: Non- GFR Calc Parathyroid Hormone (Intact) 72.7 pg/mL 18.4-80.1 [facility] Vitamin D 25-Hydroxy 63.1 ng/mL [facility] Comment on above: Vitamin D 25(OH) Sta tus Range Deficiency <20 ng/mL (50nmol/L) Insufficiency 20 - 30 ng/mL (50 - 75 nmol/L) Sufficiency 30 - 100 ng/mL (75 - 250 nmol/L) Toxicity >100 ng/mL (>250 nmol/L) RBC Auto (Bld) [#/Vol]Ordere d By: Rianna Barnhart on 11-16-2023 RBC (Bld) [#/Vol] 4.16 10*6/uL 4.6-6.2 [facility] Serum or plasma calcium acacia urement (mass/volume)Ordered By: Rianna Barnhart on 11-16-2023 Calcium [Mass/Vol] 8.6 mg/dL 8.5-10.1 [facility] Serum or plasma creatinine m easurement (mass/volume)Ordered By: Rianna Barnhart on 11-16-2023 Creatinine [Mass/Vol] 2.20 mg/dL 0.70-1.30 [facility] [place] Comment on above: The validity of the calculated GFR & GFRAA in patients over 70 years has not been determined. Clinical correlation is essential. Serum or plasma urea nitroge n measurement (mass/volume)Ordered By: Rianna Barnhart on 11-16-2023 Urea nitrogen [Mass/Vol] 28 mg/dL 7-18 [facility] Thin prep Papanicolaou smear with manual screeningOrdered By: Rianna Barnhart on 11-16-2023 Protein (U) [Mass/Vol] 48.3 mg/dL 0.0-11.8 [facility] Thin prep Papanicolaou smear with manual screening 3.3 g/dL 3.2-5.0 [facility] Urine creatinine measurement (mass/volume)Ordered By: Rianna Barnhart on 11-16-2023 Creatinine (U) [Mass/Vol] 185.00 mg/dL NO RANGE EST. [facility] Urine protein/creatinine mas s ratioOrdered By: iRanna Barnhart on 11-16-2023 Protein/Creatinine (U) [Mass ratio] 261 mg/g CRE 0-200 [facility] Laboratory - CoagulationOrde red By: Zhang Quick on 11-04-2023 INR Coag (Bld) [Relative time] 2.3 {INR} [facility] PT Coag (PPP) [Time] 25.8 s 11.7-14.9 [facility] 11-03-2023 U Creatinine 157.3 mg/dL Normal 39.0-259.0 [facility] ([place]) Comment on above: Performed By: #### M ALBR #### [place] [id number] U Microalb 8741 mcg/dL Normal [facility] ([place]) Comment on above: Performed By: #### M ALBR #### [facility] [address] [place], [place] [address] U Ratio Alb/Cre 56 mcg/mg High 0-30 [facility] ([place]) Comment on above: Performed By: #### M ALBR #### [facility] [address] [place], [place] [address] Laboratory - CoagulationOrde red By: Zhang Quick on 10-14-2023 PT Coag (PPP) [Time] 17.5 s 11.7-14.9 [facility] Platelet poor plasma interna tional normalized ratio (INR)Ordered By: Zhang Quick on 10-14-2023 INR Coag (PPP) [Relative time] 1.4 {INR} [facility] Basophil percentageOrdered B y: Zhang Quick on 10-06-2023 Bilirubin [Mass/Vol] 0.60 mg/dL 0.20-1.00 [facility] Comment on above: For patients on eltr ombopag therapy, use of Dimension [place] TBIL is not recommended. Chloride [Moles/Vol] 108 mmol/L 98-107 [facility] Cholesterol [Mass/Vol] 146 mg/dL <200 [facility] Comment on above: <200 mg/dL Desirable 200-240 mg/dL Borderline >240 mg/dL High Risk Glucose [Mass/Vol] 205 mg/dL 74-106 [facility] Comment on above: Glucose result great er than or equal to 200 mg/dLsuggests DIABETES MELLITUS per A.D.A. criteria. Hemoglobin (Bld) [Mass/Vol] 11.7 g/dL 13.0-16.5 [facility] Potassium [Moles/Vol] 4.3 mmol/L 3.5-5.1 [facility] [place] Protein [Mass/Vol] 6.7 g/dL 6.4-8.2 [facility] Sodium [Moles/Vol] 139 mmol/L 136-145 [facility] Triglyceride [Mass/Vol] 327 mg/dL <[address] [facility] Comment on above: The drugs N-Acetylcy steine and Metamizole may falsely depress this assay.Serum Triglycerides Reference Interval Normal <150 mg/dL Borderline high 150 - 199 mg/dL High 200 - 499 mg/dL Very High > or = 500 mg/dL WBC (Bld) [#/Vol] 5.7 10*3/uL 4.4-11.0 [facility] Determination of erythrocyte mean corpuscular volume (MCV)Ordered By: Zhang Quick on 10-06-2023 MCV (RBC) [Entitic vol] 95.3 fL 80-94 [facility] Erythrocyte distribution wid th ratioOrdered By: [place] Abdelrahman on 10-06-2023 Erythrocyte distribution width (RBC) [Ratio] 13.8 % 11.6-14.6 [facility] Erythrocyte distribution wid th standard deviationOrdered By: Zhang Abdelrahman on 10-06-2023 Erythrocyte distribution width (RBC) [Entitic vol] 47.8 fL 35.1-43.9 [facility] Hematocrit Auto (Bld) [Volum e fraction]Ordered By: Zhang Quick on 10-06-2023 Hematocrit (Bld) [Volume fraction] 36.5 % 40-54 [facility] Laboratory - Chemistry and C hemistry - challengeOrdered By: Jolynn Davenport on 10-06-2023 Natriuretic peptide B (Bld) [Mass/Vol] 26.9 pg/mL 0-100 [facility] Laboratory - Chemistry and C hemistry - challengeOrdered By: Zhang Quick on 10-06-2023 Albumin/Creatinine DL <= 1.0 mg/L (24H U) [Ratio] 26.9 mg/g CRE <30 [facility] Albumin/Globulin [Mass ratio] 0.9 {ratio} 0.9-2.4 [facility] ALP [Catalytic activity/Vol] 103 U/L 45-117 [facility] ALT [Catalytic activity/Vol] 21 U/L 16-61 [facility] Cholesterol in HDL (Body fld) [Mass/Vol] 42 mg/dL >40 [facility] Comment on above: The drugs N-Acetylcy steine and Metamizole may falsely depress this assay. Reference Range HDL <40 mg/dL Low HDL Cholesterol HDL >or= 60 mg/dL High HDL Cholesterol Cholesterol in LDL (Body fld) [Moles/Vol] 39 mg/dL 0-130 [facility] Cholesterol in VLDL Calc [Moles/Vol] 65 mg/dL 5-40 [facility] CO2 [Moles/Vol] 27.0 mmol/L 21.0-32.0 [facility] Globulin (S) [Mass/Vol] 3.6 g/dL 2.2-4.2 [facility] Parathyrin.intact (Tissue fine needle aspirate) [Mass/Vol] 98.6 pg/mL 18.4-80.1 [facility] Prostate specific Ag IA [Mass/Vol] 0.39 ng/mL 0.00-4.00 [facility] Comment on above: This test was perfor med using the TPSA assay method for the[employer] chemistry system. Values obtained with differentassay methods cannot be used interchangably.When changing PSA assays in the course of monitoring apatient, additional sequential testing should be carriedout to confirm baseline values. Urea nitrogen/Creatinine [Mass ratio] 11.7 mg/mg 10-20 [facility] Laboratory - Hematology and Cell countsOrdered By: Zhang Quick on 10-06-2023 MCH (RBC) [Entitic mass] 30.5 pg 27.0-32.0 [facility] MCHC (RBC) [Mass/Vol] 32.1 g/dL 32-36 [facility] [place] Platelets (Bld) [#/Vol] 179 10*3/uL 150-450 [facility] No Panel InformationOrdered By: Zhang Quick on 10-06-2023 Estimated GFR (MDRD) Amer 39 mL/min >60 [facility] Comment on above: GFR Calc Estimated GFR (MDRD) Non-Af Amer 32 mL/min >60 [facility] Comment on above: Non- GFR Calc Vitamin D 25-Hydroxy 61.8 ng/mL [facility] Comment on above: Vitamin D 25(OH) Sta tus Range Deficiency <20 ng/mL (50nmol/L) Insufficiency 20 - 30 ng/mL (50 - 75 nmol/L) Sufficiency 30 - 100 ng/mL (75 - 250 nmol/L) Toxicity >100 ng/mL (>250 nmol/L) Platelet mean volume Henry-Ec ker (Bld) [Entitic vol]Ordered By: Zhang Qiuck on 10-06-2023 Platelet mean volume (Bld) [Entitic vol] 10.0 fL 6.2-12.0 [facility] RBC Auto (Bld) [#/Vol]Ordere d By: Zhang Quick on 10-06-2023 RBC (Bld) [#/Vol] 3.83 10*6/uL 4.6-6.2 [facility] Serum or plasma calcium acacia urement (mass/volume)Ordered By: Zhang Quick on 10-06-2023 Calcium [Mass/Vol] 8.5 mg/dL 8.5-10.1 [facility] Serum or plasma creatinine m easurement (mass/volume)Ordered By: Zhang Quick on 10-06-2023 Creatinine [Mass/Vol] 2.14 mg/dL 0.70-1.30 [facility] [place] Comment on above: The validity of the calculated GFR & GFRAA in patients over 70 years has not been determined. Clinical correlation is essential. Serum or plasma thyroid stim ulating hormone (TSH) measurement (units/volume)Ordered By: Zhang Quick on 10-06-2023 TSH Qn 1.04 uIU/mL 0.358-3.74 [facility] Serum or plasma urea nitroge n measurement (mass/volume)Ordered By: Zhang Quick on 10-06-2023 Urea nitrogen [Mass/Vol] 25 mg/dL 7-18 [facility] Thin prep Papanicolaou smear with manual screeningOrdered By: Zhang Quick on 10-06-2023 Protein (U) [Mass/Vol] 33.7 mg/dL 0.0-11.8 [facility] Thin prep Papanicolaou smear with manual screening 3.1 g/dL 3.2-5.0 [facility] Thin prep Papanicolaou smear with manual screening 16 U/L 15-37 [facility] Thin prep Papanicolaou smear with manual screening 4 5-15 [facility] Thin prep Papanicolaou smear with manual screening 47.8 mg/L NO RANGE EST. [facility] Urine creatinine measurement (mass/volume)Ordered By: Zhang Quick on 10-06-2023 Creatinine (U) [Mass/Vol] 178.00 mg/dL NO RANGE EST. [facility] Urine protein/creatinine mas s ratioOrdered By: Zhang Quick on 10-06-2023 Protein/Creatinine (U) [Mass ratio] 189 mg/g CRE 0-200 [facility] Whole blood hemoglobin A1c/t otal hemoglobin ratio (mass fraction)Ordered By: Zhang Quick on 10-06-2023 HbA1c (Bld) [Mass fraction] 6.9 % 3.8-5.6 [facility] Comment on above: Normal < 5.7 % Predi abetic 5.7 - 6.4 % Diabetic >or= 6.5 % Please note range changes. INR in Blood by Coagulation assayOrdered By: Susanna Gilbert on 09-20-2023 INR Coag (Bld) [Relative time] 9.8 {INR} [facility] Comment on above: CRITICAL VALUE VERIF IED. CALLED TO RIZWAN WILL09/20/23 0126 Freddy Martinez.RESULTS READ BACK BY SAME . Laboratory - CoagulationOrde red By: Susanna Gilbert on 09-20-2023 PT Coag (PPP) [Time] 80.8 s 11.7-14.9 [facility] INR in Blood by Coagulation assayOrdered By: Zhang Quick on 07-06-2023 INR Coag (Bld) [Relative time] 3.0 {INR} [facility] Laboratory - CoagulationOrde red By: Zhang Quick on 07-06-2023 PT Coag (PPP) [Time] 31.1 s 11.7-14.9 [facility] .GFRon 06-23-2023 GFR Non- 30 ml/min/1.73sqm Normal [facility] ([place]) Comment on above: Result Comment: GFR Population mean for , Non- Americans Ages 20-29 = 116 mL/min/1.73 sq.m. Ages 30-39 = 107 mL/min/1.73 sq.m. Ages 40-49 = 99 mL/min/1.73 sq.m. Ages 50-59 = 93 mL/min/1.73 sq.m. Ages 60-69 = 85 mL/min/1.73 sq.m. Ages 70+ = 75 mL/min/1.73 sq.m. Chronic Kidney Disease: Less than 60 mL/min/1.73 square meters End Stage Renal Disease: Less than 15 mL/min/1.73 square meters Performed By: #### Yoon SKINNER, CMP #### [address] [address] GFR 37 ml/min/1.73sqm Normal [facility] ([place]) Comment on above: Result Comment: GFR Population mean for , Non- Americans Ages 20-29 = 116 mL/min/1.73 sq.m. Ages 30-39 = 107 mL/min/1.73 sq.m. Ages 40-49 = 99 mL/min/1.73 sq.m. Ages 50-59 = 93 mL/min/1.73 sq.m. Ages 60-69 = 85 mL/min/1.73 sq.m. Ages 70+ = 75 mL/min/1.73 sq.m. Chronic Kidney Disease: Less than 60 mL/min/1.73 square meters End Stage Renal Disease: Less than 15 mL/min/1.73 square meters Performed By: #### Yoon SKINNER, CMP #### [address] [address] CMPon 06-23-2023 Albumin Level 3.6 G/dL Normal 3.4-4.8 [facility] ([place]) Comment on above: Performed By: #### Yoon SKINNER, CMP #### [address] [address] Albumin/Globulin [Mass ratio] 1.0 {ratio} Low 1.1-2.5 [facility] ([place]) Comment on above: Performed By: #### Yoon SKINNER, CMP #### [address] [address] ALP [Catalytic activity/Vol] 110 U/L Normal 40-135 [facility] ([place]) Comment on above: Performed By: #### Yoon SKINNER, CMP #### [address] [address] ALT [Catalytic activity/Vol] 32 U/L Normal 16-63 [facility] ([place]) Comment on above: Performed By: #### Yoon SKINNER, CMP #### [address] [address] AST [Catalytic activity/Vol] 21 U/L Normal 10-40 [facility] ([place]) Comment on above: Performed By: #### G , CMP #### [address] [address] Bili Total 0.6 mg/dL Normal 0.2-1.0 [facility] ([place]) Comment on above: Result Comment: Use of this assay is not recommended for patients undergoing treatment with eltrombopag due to the potential for falsely elevated results. Performed By: #### Yoon SKINNER, CMP #### [address] [address] BUN/Creatinine Ratio 12 ratio Normal 7-27 [facility] ([place]) Comment on above: Performed By: #### Yoon SKINNER, CMP #### [address] [address] Calcium [Mass/Vol] 8.7 mg/dL Normal 8.4-10.2 [facility] ([place]) Comment on above: Performed By: #### Yoon SKINNER, CMP #### [address] [address] Chloride [Moles/Vol] 103 mmol/L Normal 98-107 [facility] ([place]) Comment on above: Performed By: #### Yoon SKINNER, CMP #### [address] [address] CO2 [Moles/Vol] 27 mmol/L Normal 23-31 [facility] ([place]) Comment on above: Performed By: #### Yoon SKINNER, CMP #### [address] [address] Creatinine [Mass/Vol] 2.15 mg/dL High 0.70-1.30 [facility] ([place]) Comment on above: Performed By: #### Yoon SKINNER, CMP #### [address] [address] Electrolyte Balance 9.0 mEq/L Normal 4.0-15.0 [facility] ([place]) Comment on above: Performed By: #### G , CMP #### [address] [address] Globulin 3.5 G/dL Normal [facility] ([place]) Comment on above: Performed By: #### Yoon SKINNER, CMP #### [address] [address] Glucose [Mass/Vol] 237 mg/dL High 83-110 [facility] ([place]) Comment on above: Performed By: #### Yoon SKINNER, CMP #### [address] [address] Potassium [Moles/Vol] 4.6 mmol/L Normal 3.5-5.1 [facility] ([place]) Comment on above: Performed By: #### Yoon SKINNER, CMP #### [address] [address] Sodium [Moles/Vol] 139 mmol/L Normal 136-145 [facility] ([place]) Comment on above: Performed By: #### Yoon SKINNER, CMP #### [address] [address] Total Protein 7.1 G/dL Normal 6.4-8.2 [facility] ([place]) Comment on above: Performed By: #### Yoon SKINNER, CMP #### [address] [address] Urea nitrogen [Mass/Vol] 25 mg/dL High 7-18 [facility] ([place]) Comment on above: Performed By: #### Yoon SKINNER, CMP #### [address] [address] LABORATORYOrdered By: SYSTEM SYSTEM on 06-23-2023 Albumin BCP dye [Mass/Vol] 3.6 G/dL Invalid Interpretation Code 3.4 - 4.8 G/dL AO ADM SS Albumin/Globulin [Mass ratio] 1.0 {ratio} Invalid Interpretation Code 1.1 - 2.5 ratio AO ADM SS ALP [Catalytic activity/Vol] 110 U/L Invalid Interpretation Code 40 - 135 U/L AO ADM SS ALT With P-5'-P [Catalytic activity/Vol] 32 U/L Invalid Interpretation Code 16 - 63 U/L AO ADM SS AST With P-5'-P [Catalytic activity/Vol] 21 U/L Invalid Interpretation Code 10 - 40 U/L AO ADM SS Bilirubin [Mass/Vol] 0.6 mg/dL Invalid Interpretation Code 0.2 - 1.0 mg/dL AO ADM SS Comment on above: Interpretive Data: U se of this assay is not recommended for patients undergoing treatment with eltrombopag due to the potential for falsely elevated results. Calcium [Mass/Vol] 8.7 mg/dL Invalid Interpretation Code 8.4 - 10.2 mg/dL AO ADM SS Chloride [Moles/Vol] 103 mmol/L Invalid Interpretation Code 98 - 107 mmol/L AO ADM SS CO2 [Moles/Vol] 27 mmol/L Invalid Interpretation Code 23 - 31 mmol/L AO ADM SS Creatinine [Mass/Vol] 2.15 mg/dL Invalid Interpretation Code 0.70 - 1.30 mg/dL AO ADM SS Electrolyte Balance 9.0 mEq/L Invalid Interpretation Code 4.0 - 15.0 mEq/L AO ADM SS GFR/1.73 sq M.predicted among blacks MDRD (S/P/Bld) [Vol rate/Area] 37 ml/min/1.73sqm Invalid Interpretation Code AO Chemistry S Comment on above: Interpretive Data: GFR Population mean for , Non- Americans Ages 20-29 = 116 mL/min/1.73 sq.m. Ages 30-39 = 107 mL/min/1.73 sq.m. Ages 40-49 = 99 mL/min/1.73 sq.m. Ages 50-59 = 93 mL/min/1.73 sq.m. Ages 60-69 = 85 mL/min/1.73 sq.m. Ages 70+ = 75 mL/min/1.73 sq.m. Chronic Kidney Disease: Less than 60 mL/min/1.73 square meters End Stage Renal Disease: Less than 15 mL/min/1.73 square meters GFR/1.73 sq M.predicted among non-blacks MDRD (S/P/Bld) [Vol rate/Area] 30 ml/min/1.73sqm Invalid Interpretation Code AO Chemistry S Comment on above: Interpretive Data: GFR Population mean for , Non- Americans Ages 20-29 = 116 mL/min/1.73 sq.m. Ages 30-39 = 107 mL/min/1.73 sq.m. Ages 40-49 = 99 mL/min/1.73 sq.m. Ages 50-59 = 93 mL/min/1.73 sq.m. Ages 60-69 = 85 mL/min/1.73 sq.m. Ages 70+ = 75 mL/min/1.73 sq.m. Chronic Kidney Disease: Less than 60 mL/min/1.73 square meters End Stage Renal Disease: Less than 15 mL/min/1.73 square meters Globulin 3.5 G/dL Invalid Interpretation Code AO ADM SS Glucose [Mass/Vol] 237 mg/dL Invalid Interpretation Code 83 - 110 mg/dL AO ADM SS Potassium [Moles/Vol] 4.6 mmol/L Invalid Interpretation Code 3.5 - 5.1 mmol/L AO ADM SS Protein [Mass/Vol] 7.1 G/dL Invalid Interpretation Code 6.4 - 8.2 G/dL AO ADM SS Sodium [Moles/Vol] 139 mmol/L Invalid Interpretation Code 136 - 145 mmol/L AO ADM SS Urea nitrogen [Mass/Vol] 25 mg/dL Invalid Interpretation Code 7 - 18 mg/dL AO ADM SS Urea nitrogen/Creatinine [Mass ratio] 12 ratio Invalid Interpretation Code 7 - 27 ratio AO ADM SS No Panel Informationon 06-23 Culture Urine 10,000 - 50,000 cfu/ ml Mixed growth consistent with normal urogenital fina. [facility] Work Phone: Basophil percentageOrdered B y: Rianna Barnhart on 04-20-2023 Basophil percentage 2.7 mg/dL 2.5-4.9 [facility] Chloride [Moles/Vol] 104 mmol/L 98-107 [facility] Glucose [Mass/Vol] 214 mg/dL 74-106 [facility] Comment on above: Glucose result great er than or equal to 200 mg/dLsuggests DIABETES MELLITUS per A.D.A. criteria. Potassium [Moles/Vol] 4.4 mmol/L 3.5-5.1 [facility] Sodium [Moles/Vol] 136 mmol/L 136-145 [facility] WBC (Bld) [#/Vol] 5.8 10*3/uL 4.4-11.0 [facility] Blood erythrocytes count (nu mber/volume)Ordered By: Rianna Barnhart on 04-20-2023 RBC (Bld) [#/Vol] 4.14 10*6/uL 4.6-6.2 [facility] Blood hemoglobin measurement (mass/volume)Ordered By: Rianna Barnhart on 04-20-2023 Hemoglobin (Bld) [Mass/Vol] 13.0 g/dL 13.0-16.5 [facility] Blood platelet mean volumeOr dered By: Rianna Barnhart on 04-20-2023 Platelet mean volume (Bld) [Entitic vol] 9.9 fL 6.2-12.0 [facility] Determination of erythrocyte mean corpuscular volume (MCV)Ordered By: Rianna Barnhart on 04-20-2023 MCV (RBC) [Entitic vol] 91.5 fL 80-94 [facility] Hematocrit Auto (Bld) [Volum e fraction]Ordered By: Rianna Barnhart on 04-20-2023 Hematocrit (Bld) [Volume fraction] 37.9 % 40-54 [facility] Laboratory - Chemistry and C hemistry - challengeOrdered By: Rianna Barnhart on 04-20-2023 CO2 [Moles/Vol] 30.0 mmol/L 21.0-32.0 [facility] Urea nitrogen/Creatinine [Mass ratio] 11.7 mg/mg 10-20 [facility] Laboratory - Hematology and Cell countsOrdered By: Rianna Barnhart on 04-20-2023 Erythrocyte distribution width (RBC) [Entitic vol] 43.9 fL 35.1-43.9 [facility] Erythrocyte distribution width (RBC) [Ratio] 13.2 % 11.6-14.6 [facility] MCH (RBC) [Entitic mass] 31.4 pg 27.0-32.0 [facility] MCHC Auto (RBC) [Mass/Vol]Or dered By: Rianna Barnhart on 04-20-2023 MCHC (RBC) [Mass/Vol] 34.3 g/dL 32-36 [facility] [place] No Panel InformationOrdered By: Rianna Barnhart on 04-20-2023 Estimated GFR (MDRD) Amer 37 mL/min >60 [facility] Comment on above: GFR Calc Estimated GFR (MDRD) Non-Af Amer 31 mL/min >60 [facility] Comment on above: Non- GFR Calc Parathyroid Hormone (Intact) 73.2 pg/mL 18.4-80.1 [facility] Vitamin D 25-Hydroxy 61.1 ng/mL [facility] Comment on above: Vitamin D 25(OH) Sta tus Range Deficiency <20 ng/mL (50nmol/L) Insufficiency 20 - 30 ng/mL (50 - 75 nmol/L) Sufficiency 30 - 100 ng/mL (75 - 250 nmol/L) Toxicity >100 ng/mL (>250 nmol/L) Platelets bldOrdered By: Jan Barnhart on 04-20-2023 Platelets (Bld) [#/Vol] 170 10*3/uL 150-450 [facility] Serum or plasma albumin acacia urement (mass/volume)Ordered By: Rianna Barnhart on 04-20-2023 Albumin [Mass/Vol] 3.2 g/dL 3.2-5.0 [facility] Serum or plasma calcium acacia urement (mass/volume)Ordered By: Rianna Barnhart on 04-20-2023 Calcium [Mass/Vol] 8.8 mg/dL 8.5-10.1 [facility] Serum or plasma creatinine m easurement (mass/volume)Ordered By: Rianna Barnhart on 04-20-2023 Creatinine [Mass/Vol] 2.22 mg/dL 0.70-1.30 [facility] [place] Comment on above: The validity of the calculated GFR & GFRAA in patients over 70 years has not been determined. Clinical correlation is essential. Serum or plasma urea nitroge n measurement (mass/volume)Ordered By: Rianna Barnhart on 04-20-2023 Urea nitrogen [Mass/Vol] 26 mg/dL 7-18 [facility] Urine creatinine measurement (mass/volume)Ordered By: Rianna Barnhart on 04-20-2023 Creatinine (U) [Mass/Vol] 128.00 mg/dL NO RANGE EST. [facility] Urine protein measurement (m ass/volume)Ordered By: Rianna Barnhart on 04-20-2023 Protein (U) [Mass/Vol] 28.1 mg/dL 0.0-11.8 [facility] Urine protein/creatinine mas s ratioOrdered By: Rianna Barnhart on 04-20-2023 Protein/Creatinine (U) [Mass ratio] 220 mg/g CRE 0-200 [facility] Basophil percentageOrdered B y: Lexus Rivera on 04-10-2023 Bilirubin [Mass/Vol] 0.60 mg/dL 0.20-1.00 [facility] Comment on above: For patients on eltr ombopag therapy, use of Dimension [place] TBIL is not recommended. Chloride [Moles/Vol] 105 mmol/L 98-107 [facility] Cholesterol [Mass/Vol] 140 mg/dL <200 [facility] Comment on above: <200 mg/dL Desirable 200-240 mg/dL Borderline >240 mg/dL High Risk Glucose [Mass/Vol] 172 mg/dL 74-106 [facility] Comment on above: Fasting Glucose resu lt greater than or equal to 126 mg/dL suggests DIABETES MELLITUS per A.D.A. criteria. Potassium [Moles/Vol] 4.3 mmol/L 3.5-5.1 [facility] [place] Protein [Mass/Vol] 6.8 g/dL 6.4-8.2 [facility] Sodium [Moles/Vol] 138 mmol/L 136-145 [facility] Triglyceride [Mass/Vol] 275 mg/dL <199 [facility] Comment on above: The drugs N-Acetylcy steine and Metamizole may falsely depress this assay.Serum Triglycerides Reference Interval Normal <150 mg/dL Borderline high 150 - 199 mg/dL High 200 - 499 mg/dL Very High > or = 500 mg/dL WBC (Bld) [#/Vol] 5.1 10*3/uL 4.4-11.0 [facility] Blood erythrocytes count (nu mber/volume)Ordered By: Lexus Rivera on 04-10-2023 RBC (Bld) [#/Vol] 4.23 10*6/uL 4.6-6.2 [facility] Blood hemoglobin measurement (mass/volume)Ordered By: Lexus Rivera on 04-10-2023 Hemoglobin (Bld) [Mass/Vol] 12.9 g/dL 13.0-16.5 [facility] Blood platelet mean volumeOr dered By: Lexus Rivera on 04-10-2023 Platelet mean volume (Bld) [Entitic vol] 9.8 fL 6.2-12.0 [facility] Determination of erythrocyte mean corpuscular volume (MCV)Ordered By: Lexus Rivera on 04-10-2023 MCV (RBC) [Entitic vol] 92.9 fL 80-94 [facility] Hematocrit Auto (Bld) [Volum e fraction]Ordered By: Lexus Rivera on 04-10-2023 Hematocrit (Bld) [Volume fraction] 39.3 % 40-54 [facility] Laboratory - Chemistry and C hemistry - challengeOrdered By: Lexus Rivera on 04-10-2023 ALP [Catalytic activity/Vol] 94 U/L 45-117 [facility] ALT [Catalytic activity/Vol] 32 U/L 16-61 [facility] CO2 [Moles/Vol] 29.0 mmol/L 21.0-32.0 [facility] Globulin (S) [Mass/Vol] 3.7 g/dL 2.2-4.2 [facility] Urea nitrogen/Creatinine [Mass ratio] 13.7 mg/mg 10-20 [facility] Laboratory - Hematology and Cell countsOrdered By: Lexus Rivera on 04-10-2023 Erythrocyte distribution width (RBC) [Entitic vol] 45.3 fL 35.1-43.9 [facility] Erythrocyte distribution width (RBC) [Ratio] 13.3 % 11.6-14.6 [facility] MCH (RBC) [Entitic mass] 30.5 pg 27.0-32.0 [facility] MCHC Auto (RBC) [Mass/Vol]Or dered By: Lexus Rivera on 04-10-2023 MCHC (RBC) [Mass/Vol] 32.8 g/dL 32-36 [facility] [place] No Panel InformationOrdered By: Lexus Rivera on 04-10-2023 Estimated GFR (MDRD) Amer 36 mL/min >60 [facility] Comment on above: GFR Calc Estimated GFR (MDRD) Non-Af Amer 30 mL/min >60 [facility] Comment on above: Non- GFR Calc Parathyroid Hormone (Intact) 38.9 pg/mL 18.4-80.1 [facility] Urine Microalbumin/Creatinine Ratio 76.0 mg/g CRE <30 [facility] Vitamin D 25-Hydroxy 60.0 ng/mL [facility] Comment on above: Vitamin D 25(OH) Sta tus Range Deficiency <20 ng/mL (50nmol/L) Insufficiency 20 - 30 ng/mL (50 - 75 nmol/L) Sufficiency 30 - 100 ng/mL (75 - 250 nmol/L) Toxicity >100 ng/mL (>250 nmol/L) Platelets bldOrdered By: Cecilio Rivera on 04-10-2023 Platelets (Bld) [#/Vol] 142 10*3/uL 150-450 [facility] Serum or plasma albumin acacia urement (mass/volume)Ordered By: Lexus Rivera on 04-10-2023 Albumin [Mass/Vol] 3.1 g/dL 3.2-5.0 [facility] Serum or plasma albumin/glob ulin mass ratioOrdered By: Lexus Rivera on 04-10-2023 Albumin/Globulin [Mass ratio] 0.8 {ratio} 0.9-2.4 [facility] Serum or plasma calcium acacia urement (mass/volume)Ordered By: Lexus Rivera on 04-10-2023 Calcium [Mass/Vol] 9.2 mg/dL 8.5-10.1 [facility] Serum or plasma cholesterol in HDL measurement (mass/volume)Ordered By: Lexus Rivera on 04-10-2023 Cholesterol in HDL [Mass/Vol] 45 mg/dL >40 [facility] Comment on above: The drugs N-Acetylcy steine and Metamizole may falsely depress this assay. Reference Range HDL <40 mg/dL Low HDL Cholesterol HDL >or= 60 mg/dL High HDL Cholesterol Serum or plasma cholesterol in VLDL measurement (mass/volume)Ordered By: Lexus Rivera on 04-10-2023 Cholesterol in VLDL [Mass/Vol] 55 mg/dL 5-40 [facility] Serum or plasma creatinine m easurement (mass/volume)Ordered By: Lexus Rivera on 04-10-2023 Creatinine [Mass/Vol] 2.27 mg/dL 0.70-1.30 [facility] Comment on above: The validity of the calculated GFR & GFRAA in patients over 70 years has not been determined. Clinical correlation is essential. Serum or plasma low density lipoprotein (LDL) cholesterol measurement (mass/volume)Ordered By: Lexus Rivera on 04-10-2023 Cholesterol in LDL [Mass/Vol] 40 mg/dL 0-130 [facility] Serum or plasma urea nitroge n measurement (mass/volume)Ordered By: Lexus Rivera on 04-10-2023 Urea nitrogen [Mass/Vol] 31 mg/dL 7-18 [facility] Serum or plasma uric acid me asurement (mass/volume)Ordered By: Lexus Rivera on 04-10-2023 Urate [Mass/Vol] 6.7 mg/dL 3.5-7.2 [facility] Comment on above: The drugs N-Acetylcy steine and Metamizole may falsely depress this assay. Thin prep Papanicolaou smear with manual screeningOrdered By: Lexus Rivera on 04-10-2023 Thin prep Papanicolaou smear with manual screening 28 U/L 15-37 [facility] Thin prep Papanicolaou smear with manual screening 4 5-15 [facility] Thin prep Papanicolaou smear with manual screening 127.0 mg/L NO RANGE EST. [facility] Urine creatinine measurement (mass/volume)Ordered By: Lexus Rivera on 04-10-2023 Creatinine (U) [Mass/Vol] 167.00 mg/dL NO RANGE EST. [facility] Urine protein measurement (m ass/volume)Ordered By: Lexus Rivera on 04-10-2023 Protein (U) [Mass/Vol] 63.8 mg/dL 0.0-11.8 [facility] Urine protein/creatinine mas s ratioOrdered By: Lexus Rivera 04-10-2023 Protein/Creatinine (U) [Mass ratio] 382 mg/g CRE 0-200 [facility] Whole blood hemoglobin A1c/t otal hemoglobin ratio (mass fraction)Ordered By: Lexus Rivera on 04-10-2023 HbA1c (Bld) [Mass fraction] 7.3 % 3.8-5.6 [facility] Comment on above: Normal < 5.7 % Predi abetic 5.7 - 6.4 % Diabetic >or= 6.5 % Please note range changes. INR in Blood by Coagulation assayOrdered By: Zhang Quick on 04-02-2023 INR Coag (Bld) [Relative time] 2.4 {INR} [facility] - CoagulationOrde red By: Zhang Quick on 04-02-2023 PT Coag (PPP) [Time] 26.0 s 11.7-14.9 [facility] INR in Blood by Coagulation assayOrdered By: Dr. Quick on 01-01-2023 INR Coag (Bld) [Relative time] 2.8 {INR} [facility] - CoagulationOrde red By: Dr. Quick on 01-01-2023 PT Coag (PPP) [Time] 29.4 s 11.7-14.9 [facility] INR in Blood by Coagulation assayOrdered By: Dr. Quick on 12-18-2022 INR Coag (Bld) [Relative time] 1.8 {INR} [facility] - CoagulationOrde red By: Dr. Quick on 12-18-2022 PT Coag (PPP) [Time] 20.6 s 11.7-14.9 [facility] INR in Blood by Coagulation assayOrdered By: Dr. Quick on 11-26-2022 INR Coag (Bld) [Relative time] 2.5 {INR} [facility] - CoagulationOrde red By: Dr. Quick on 11-26-2022 PT Coag (PPP) [Time] 26.3 s 11.7-14.9 [facility] Basophil percentageOrdered B y: Dr. Quick on 10-09-2022 Bilirubin [Mass/Vol] 0.60 mg/dL 0.20-1.00 [facility] Comment on above: For patients on eltr ombopag therapy, use of Dimension [place] TBIL is not recommended. Chloride [Moles/Vol] 105 mmol/L 98-107 [facility] Cholesterol [Mass/Vol] 147 mg/dL <200 [facility] Comment on above: <200 mg/dL Desirable 200-240 mg/dL Borderline >240 mg/dL High Risk Glucose [Mass/Vol] 245 mg/dL 74-106 [facility] Comment on above: Glucose result great er than or equal to 200 mg/dLsuggests DIABETES MELLITUS per A.D.A. criteria. Potassium [Moles/Vol] 4.2 mmol/L 3.5-5.1 [facility] Protein [Mass/Vol] 7.1 g/dL 6.4-8.2 [facility] Sodium [Moles/Vol] 139 mmol/L 136-145 [facility] Triglyceride [Mass/Vol] 258 mg/dL <199 [facility] Comment on above: The drugs N-Acetylcy steine and Metamizole may falsely depress this assay.Serum Triglycerides Reference Interval Normal <150 mg/dL Borderline high 150 - 199 mg/dL High 200 - 499 mg/dL Very High > or = 500 mg/dL WBC (Bld) [#/Vol] 8.0 10*3/uL 4.4-11.0 [facility] Blood erythrocytes count (nu mber/volume)Ordered By: Dr. Quick on 10-09-2022 RBC (Bld) [#/Vol] 4.41 10*6/uL 4.6-6.2 [facility] Blood hemoglobin measurement (mass/volume)Ordered By: Dr. Quick on 10-09-2022 Hemoglobin (Bld) [Mass/Vol] 13.9 g/dL 13.0-16.5 [facility] Blood platelet mean volumeOr dered By: Dr. Quick on 10-09-2022 Platelet mean volume (Bld) [Entitic vol] 10.1 fL 6.2-12.0 [facility] Determination of erythrocyte mean corpuscular volume (MCV)Ordered By: Dr. Quick on 10-09-2022 MCV (RBC) [Entitic vol] 93.0 fL 80-94 [facility] Hematocrit Auto (Bld) [Volum e fraction]Ordered By: Dr. Quick on 10-09-2022 Hematocrit (Bld) [Volume fraction] 41.0 % 40-54 [facility] INR in Blood by Coagulation assayOrdered By: Dr. Quick on 10-09-2022 INR Coag (Bld) [Relative time] 2.9 {INR} [facility] - Chemistry and C hemistry - challengeOrdered By: Dr. Quick on 10-09-2022 ALP [Catalytic activity/Vol] 96 U/L 45-117 [facility] ALT [Catalytic activity/Vol] 46 U/L 16-61 [facility] CO2 [Moles/Vol] 26.0 mmol/L 21.0-32.0 [facility] Globulin (S) [Mass/Vol] 3.9 g/dL 2.2-4.2 [facility] Urea nitrogen/Creatinine [Mass ratio] 12.3 mg/mg 10-20 [facility] - CoagulationOrde red By: Dr. Quick on 10-09-2022 PT Coag (PPP) [Time] 29.7 s 11.7-14.9 [facility] - Hematology and Cell countsOrdered By: Dr. Quick on 10-09-2022 Erythrocyte distribution width (RBC) [Entitic vol] 45.2 fL 35.1-43.9 [facility] Erythrocyte distribution width (RBC) [Ratio] 13.2 % 11.6-14.6 [facility] MCH (RBC) [Entitic mass] 31.5 pg 27.0-32.0 [facility] MCHC Auto (RBC) [Mass/Vol]Or dered By: Dr. Quick on 10-09-2022 MCHC (RBC) [Mass/Vol] 33.9 g/dL 32-36 [facility] No Panel InformationOrdered By: Dr. Quick on 10-09-2022 Urine Microalbumin/Creatinine Ratio 42.5 mg/g CRE <30 [facility] Estimated GFR (MDRD) Amer 42 mL/min >60 [facility] Comment on above: GFR Calc Estimated GFR (MDRD) Non-Af Amer 34 mL/min >60 [facility] Comment on above: Non- GFR Calc Parathyroid Hormone (Intact) 89.6 pg/mL 18.4-80.1 [facility] Prostate Specific Antigen Screen 0.45 ng/mL 0.00-4.00 [facility] Comment on above: This test was perfor med using the TPSA assay method for [employer] chemistry system. Values obtained with differentassay methods cannot be used interchangably.When changing PSA assays in the course of monitoring apatient, additional sequential testing should be carriedout to confirm baseline values. Thyroid Stimulating Hormone (TSH) 0.83 uIU/mL 0.358-3.74 [facility] Vitamin D 25-Hydroxy 62.0 ng/mL [facility] Comment on above: Vitamin D 25(OH) Sta tus Range Deficiency <20 ng/mL (50nmol/L) Insufficiency 20 - 30 ng/mL (50 - 75 nmol/L) Sufficiency 30 - 100 ng/mL (75 - 250 nmol/L) Toxicity >100 ng/mL (>250 nmol/L) Platelets bldOrdered By: Dr. Quick on 10-09-2022 Platelets (Bld) [#/Vol] 151 10*3/uL 150-450 [facility] Serum or plasma albumin acacia urement (mass/volume)Ordered By: Dr. Quick on 10-09-2022 Albumin [Mass/Vol] 3.2 g/dL 3.2-5.0 [facility] Serum or plasma albumin/glob ulin mass ratioOrdered By: Dr. Quick on 10-09-2022 Albumin/Globulin [Mass ratio] 0.8 {ratio} 0.9-2.4 [facility] Serum or plasma calcium acacia urement (mass/volume)Ordered By: Dr. Quick on 10-09-2022 Calcium [Mass/Vol] 8.5 mg/dL 8.5-10.1 [facility] Serum or plasma cholesterol in HDL measurement (mass/volume)Ordered By: Dr. Quick on 10-09-2022 Cholesterol in HDL [Mass/Vol] 53 mg/dL >40 [facility] Comment on above: The drugs N-Acetylcy steine and Metamizole may falsely depress this assay. Reference Range HDL <40 mg/dL Low HDL Cholesterol HDL >or= 60 mg/dL High HDL Cholesterol Serum or plasma cholesterol in VLDL measurement (mass/volume)Ordered By: Dr. Quick on 10-09-2022 Cholesterol in VLDL [Mass/Vol] 52 mg/dL 5-40 [facility] Serum or plasma creatinine m easurement (mass/volume)Ordered By: Dr. Quick on 10-09-2022 Creatinine [Mass/Vol] 2.03 mg/dL 0.70-1.30 [facility] Comment on above: The validity of the calculated GFR & GFRAA in patients over 70 years has not been determined. Clinical correlation is essential. Serum or plasma low density lipoprotein (LDL) cholesterol measurement (mass/volume)Ordered By: Dr. Quick on 10-09-2022 Cholesterol in LDL [Mass/Vol] 42 mg/dL 0-130 [facility] Serum or plasma urea nitroge n measurement (mass/volume)Ordered By: Dr. Quick on 10-09-2022 Urea nitrogen [Mass/Vol] 25 mg/dL 7-18 [facility] Thin prep Papanicolaou smear with manual screeningOrdered By: Dr. Quick on 10-09-2022 Thin prep Papanicolaou smear with manual screening 59.5 mg/L NO RANGE EST. [facility] Thin prep Papanicolaou smear with manual screening 30 U/L 15-37 [facility] Thin prep Papanicolaou smear with manual screening 8 5-15 [facility] Urine creatinine measurement (mass/volume)Ordered By: Dr. Quick on 10-09-2022 Creatinine (U) [Mass/Vol] 140.00 mg/dL NO RANGE EST. [facility] Whole blood hemoglobin A1c/t otal hemoglobin ratio (mass fraction)Ordered By: Dr. Quick on 10-09-2022 HbA1c (Bld) [Mass fraction] 7.5 % 3.8-5.6 [facility] Comment on above: Normal < 5.7 % Predi abetic 5.7 - 6.4 % Diabetic >or= 6.5 % Please note range changes. Absolute lymphocyte countOrd ered By: Dr. Ozuna on 09-15-2022 Lymphocytes Auto (Unsp spec) [#/Vol] 1.63 10*3/uL 0.83-4.51 [facility] Basophil percentageOrdered B y: Dr. Ozuna on 09-15-2022 Basophil percentage 0 SEEN /hpf 0-5 [facility] Basophils/100 WBC (Bld) 0.1 % 0-1 [facility] Bilirubin [Mass/Vol] 1.30 mg/dL 0.20-1.00 [facility] Comment on above: For patients on eltr ombopag therapy, use of Dimension [place] TBIL is not recommended. Chloride [Moles/Vol] 103 mmol/L 98-107 [facility] Eosinophils/100 WBC (Bld) 0.0 % 0-5 [facility] Glucose [Mass/Vol] 191 mg/dL 74-106 [facility] Comment on above: Fasting Glucose resu lt greater than or equal to 126 mg/dL suggests DIABETES MELLITUS per A.D.A. criteria. Neutrophils (Bld) [#/Vol] 4.4 10*3/uL 2.0-7.7 [facility] Neutrophils/100 WBC (Bld) 65.5 % 47-70 [facility] Potassium [Moles/Vol] 3.8 mmol/L 3.5-5.1 [facility] Protein [Mass/Vol] 8.1 g/dL 6.4-8.2 [facility] Sodium [Moles/Vol] 136 mmol/L 136-145 [facility] WBC (Bld) [#/Vol] 6.8 10*3/uL 4.4-11.0 [facility] Bilirubin Test strip Ql (U)O rdered By: Dr. Ozuna on 09-15-2022 Bilirubin Ql (U) Negative Negative [facility] Blood erythrocytes count (nu mber/volume)Ordered By: Dr. Ozuna on 09-15-2022 RBC (Bld) [#/Vol] 5.03 10*6/uL 4.6-6.2 [facility] Blood hemoglobin measurement (mass/volume)Ordered By: Dr. Ozuna on 09-15-2022 Hemoglobin (Bld) [Mass/Vol] 15.8 g/dL 13.0-16.5 [facility] Blood lymphocytes/100 leukoc ytesOrdered By: Dr. Ozuna on 09-15-2022 Lymphocytes/100 WBC (Bld) 24.1 % 19-41 [facility] Blood monocytes/100 leukocyt esOrdered By: Dr. Ozuna on 09-15-2022 Monocytes/100 WBC (Bld) 9.9 % 0-10 [facility] Blood platelet mean volumeOr dered By: Dr. Ozuna on 09-15-2022 Platelet mean volume (Bld) [Entitic vol] 9.6 fL 6.2-12.0 [facility] Determination of erythrocyte mean corpuscular volume (MCV)Ordered By: Dr. Ozuna on 09-15-2022 MCV (RBC) [Entitic vol] 91.7 fL 80-94 [facility] Hematocrit Auto (Bld) [Volum e fraction]Ordered By: Dr. Ozuna on 09-15-2022 Hematocrit (Bld) [Volume fraction] 46.1 % 40-54 [facility] INR in Blood by Coagulation assayOrdered By: Dr. Ozuna on 09-15-2022 INR Coag (Bld) [Relative time] 1.4 {INR} [facility] Ketones Test strip Ql (U)Ord ered By: Dr. Ozuna on 09-15-2022 Ketones Ql (U) 15 mg/dl Negative [facility] - Chemistry and C hemistry - challengeOrdered By: Dr. Ozuna on 09-15-2022 ALP [Catalytic activity/Vol] 110 U/L 45-117 [facility] ALT [Catalytic activity/Vol] 82 U/L 16-61 [facility] CO2 [Moles/Vol] 25.0 mmol/L 21.0-32.0 [facility] Globulin (S) [Mass/Vol] 4.3 g/dL 2.2-4.2 [facility] Lipase [Catalytic activity/Vol] 171 U/L 73-393 [facility] Urea nitrogen/Creatinine [Mass ratio] 18.5 mg/mg 10-20 [facility] - CoagulationOrde red By: Dr. Ozuna on 09-15-2022 PT Coag (PPP) [Time] 16.8 s 11.7-14.9 [facility] - Hematology and Cell countsOrdered By: Dr. Ozuna on 09-15-2022 Erythrocyte distribution width (RBC) [Entitic vol] 44.2 fL 35.1-43.9 [facility] Erythrocyte distribution width (RBC) [Ratio] 13.1 % 11.6-14.6 [facility] Immature granulocytes/100 WBC (Bld) 0.400 % 0.0-0.9 [facility] Comment on above: IG% - Immature Granu locytes (promyelocytes, myelocytes and metamyelocytes) > 1% indicates that a LEFT SHIFT is Present. MCH (RBC) [Entitic mass] 31.4 pg 27.0-32.0 [facility] Nucleated RBC/100 WBC (Bld) [Ratio] 0 % 0-5 [facility] MCHC Auto (RBC) [Mass/Vol]Or dered By: Dr. Ozuna on 09-15-2022 MCHC (RBC) [Mass/Vol] 34.3 g/dL 32-36 [facility] Mucus LM Ql (Urine sed)Order ed By: Dr. Ozuna on 09-15-2022 Mucus Ql (Urine sed) 1+ /hpf [facility] Nitrite Test strip Ql (U)Ord ered By: Dr. Ozuna on 09-15-2022 Nitrite Ql (U) Negative Negative [facility] No Panel InformationOrdered By: Dr. Ozuna on 09-15-2022 Estimated Creatinine Clearance Calc 29.15 ml/min [facility] Estimated GFR (MDRD) Amer 40 mL/min >60 [facility] Comment on above: GFR Calc Estimated GFR (MDRD) Non-Af Amer 33 mL/min >60 [facility] Comment on above: Non- GFR Calc Platelets bldOrdered By: Dr. Ozuna on 09-15-2022 Platelets (Bld) [#/Vol] 180 10*3/uL 150-450 [facility] Protein Test strip Ql (U)Ord ered By: Dr. Ozuna on 09-15-2022 Protein Ql (U) 100 mg/dl Negative [facility] Serum or plasma albumin acacia urement (mass/volume)Ordered By: Dr. Ozuna on 09-15-2022 Albumin [Mass/Vol] 3.8 g/dL 3.2-5.0 [facility] Serum or plasma albumin/glob ulin mass ratioOrdered By: Dr. Ozuna on 09-15-2022 Albumin/Globulin [Mass ratio] 0.9 {ratio} 0.9-2.4 [facility] Serum or plasma calcium acacia urement (mass/volume)Ordered By: Dr. Ozuna on 09-15-2022 Calcium [Mass/Vol] 9.1 mg/dL 8.5-10.1 [facility] Serum or plasma creatinine m easurement (mass/volume)Ordered By: Dr. Ozuna on 09-15-2022 Creatinine [Mass/Vol] 2.11 mg/dL 0.70-1.30 [facility] Comment on above: The validity of the calculated GFR & GFRAA in patients over 70 years has not been determined. Clinical correlation is essential. Serum or plasma urea nitroge n measurement (mass/volume)Ordered By: Dr. Ozuna on 09-15-2022 Urea nitrogen [Mass/Vol] 39 mg/dL 7-18 [facility] Squamous epithelial cells de tection in urine sediment by light microscopyOrdered By: Dr. Ozuna on 09-15-2022 Epithelial cells.squamous LM Ql (Urine sed) 0-5 SEEN /hpf 0-5 [facility] Thin prep Papanicolaou smear with manual screeningOrdered By: Dr. Ozuna on 09-15-2022 Thin prep Papanicolaou smear with manual screening 74 U/L 15-37 [facility] Thin prep Papanicolaou smear with manual screening 8 5-15 [facility] Urine blood detectionOrdered By: Dr. Ozuna on 09-15-2022 RBC Ql (U) 150 /ul Negative [facility] RBC Ql (U) 0-5 SEEN /hpf 0-5 [facility] Urine clarityOrdered By: Dr. Ozuna on 09-15-2022 Clarity (U) Clear Clear [facility] Urine color determinationOrd ered By: Dr. Ozuna on 09-15-2022 Color (U) Yellow Yellow [facility] Urine glucose detectionOrder ed By: Dr. Ozuna on 09-15-2022 Glucose Ql (U) 1000 mg/dl Normal [facility] Urine leukocyte esterase det ection by dipstickOrdered By: Dr. Ozuna on 09-15-2022 Leukocyte esterase Test strip Ql (U) Negative Negative [facility] Urine pHOrdered By: Dr. Chaim jiménez on 09-15-2022 pH (U) 5.0 [pH] 5.0 - 8.0 [facility] Urine sediment bacteria coun t by microscopy (number/high power field)Ordered By: Dr. Ozuna on 09-15-2022 Bacteria LM.HPF (Urine sed) [#/Area] 0 /[HPF] None Seen [facility] Urine specific gravity measu rementOrdered By: Dr. Ozuna on 09-15-2022 Specific gravity (U) [Rel density] 1.025 1.002-1.030 [facility] Urobilinogen Auto test strip Ql (U)Ordered By: Dr. Ozuna on 09-15-2022 Urobilinogen Ql (U) Normal mg/dl Normal [facility] Absolute lymphocyte countOrd ered By: Jolynn Davenport on 07-09-2022 Lymphocytes Auto (Unsp spec) [#/Vol] 2.11 10*3/uL 0.83-4.51 [facility] Basophil percentageOrdered B y: Jolynn Davenport on 07-09-2022 Basophils/100 WBC (Bld) 0.4 % 0-[address] [facility] Chloride [Moles/Vol] 106 mmol/L 98-107 [facility] Eosinophils/100 WBC (Bld) 4.8 % 0-5 [facility] Glucose [Mass/Vol] 219 mg/dL 74-106 [facility] Comment on above: Glucose result great er than or equal to 200 mg/dLsuggests DIABETES MELLITUS per A.D.A. criteria. Neutrophils (Bld) [#/Vol] 4.0 10*3/uL 2.0-7.7 [facility] Neutrophils/100 WBC (Bld) 56.4 % 47-70 [facility] Potassium [Moles/Vol] 4.5 mmol/L 3.5-5.1 [facility] Sodium [Moles/Vol] 137 mmol/L 136-145 [facility] WBC (Bld) [#/Vol] 7.1 10*3/uL 4.4-11.0 [facility] Blood erythrocytes count (nu mber/volume)Ordered By: Jolynn Davenport on 07-09-2022 RBC (Bld) [#/Vol] 4.29 10*6/uL 4.6-6.2 [facility] Blood hemoglobin measurement (mass/volume)Ordered By: Jolynn Davenport on 07-09-2022 Hemoglobin (Bld) [Mass/Vol] 13.6 g/dL 13.0-16.5 [facility] Blood lymphocytes/100 leukoc ytesOrdered By: Jolynn Davenport on 07-09-2022 Lymphocytes/100 WBC (Bld) 29.7 % 19-41 [facility] Blood monocytes/100 leukocyt esOrdered By: Jolynn Davenport on 07-09-2022 Monocytes/100 WBC (Bld) 8.4 % 0-10 [facility] Blood platelet mean volumeOr dered By: Jolynn Davenport on 07-09-2022 Platelet mean volume (Bld) [Entitic vol] 10.1 fL 6.2-12.0 [facility] Determination of erythrocyte mean corpuscular volume (MCV)Ordered By: Jolynn Davenport on 07-09-2022 MCV (RBC) [Entitic vol] 94.6 fL 80-94 [facility] Hematocrit Auto (Bld) [Volum e fraction]Ordered By: Jolynn Davenport on 07-09-2022 Hematocrit (Bld) [Volume fraction] 40.6 % 40-54 [facility] - Chemistry and C hemistry - challengeOrdered By: Jolynn Davenport on 07-09-2022 CO2 [Moles/Vol] 26.0 mmol/L 21.0-32.0 [facility] Natriuretic peptide B (Bld) [Mass/Vol] 40.7 pg/mL 0-100 [facility] Urea nitrogen/Creatinine [Mass ratio] 14.2 mg/mg 10-20 [facility] - Hematology and Cell countsOrdered By: Jolynn Davenport on 07-09-2022 Erythrocyte distribution width (RBC) [Entitic vol] 46.5 fL 35.1-43.9 [facility] Erythrocyte distribution width (RBC) [Ratio] 13.3 % 11.6-14.6 [facility] Immature granulocytes/100 WBC (Bld) 0.300 % 0.0-0.9 [facility] Comment on above: IG% - Immature Granu locytes (promyelocytes, myelocytes and metamyelocytes) > 1% indicates that a LEFT SHIFT is Present. MCH (RBC) [Entitic mass] 31.7 pg 27.0-32.0 [facility] Nucleated RBC/100 WBC (Bld) [Ratio] 0 % 0-5 [facility] MCHC Auto (RBC) [Mass/Vol]Or dered By: Jolynn Davenport on 07-09-2022 MCHC (RBC) [Mass/Vol] 33.5 g/dL 32-36 [facility] No Panel InformationOrdered By: Jolynn Davenport on 07-09-2022 Estimated GFR (MDRD) Amer 36 mL/min >60 [facility] Comment on above: GFR Calc Estimated GFR (MDRD) Non-Af Amer 29 mL/min >60 [facility] Comment on above: Non- GFR Calc Platelets bldOrdered By: Art Davenport on 07-09-2022 Platelets (Bld) [#/Vol] 186 10*3/uL 150-450 [facility] Serum or plasma calcium acacia urement (mass/volume)Ordered By: Jolynn Davenport on 07-09-2022 Calcium [Mass/Vol] 8.7 mg/dL 8.5-10.1 [facility] Serum or plasma creatinine m easurement (mass/volume)Ordered By: Jolynn Davenport on 07-09-2022 Creatinine [Mass/Vol] 2.32 mg/dL 0.70-1.30 [facility] Comment on above: The validity of the calculated GFR & GFRAA in patients over 70 years has not been determined. Clinical correlation is essential. Serum or plasma urea nitroge n measurement (mass/volume)Ordered By: Jolynn Davenport on 07-09-2022 Urea nitrogen [Mass/Vol] 33 mg/dL 7-18 [facility] Thin prep Papanicolaou smear with manual screeningOrdered By: Jolynn Davenport on 07-09-2022 Thin prep Papanicolaou smear with manual screening 5 5-15 [facility] INR in Blood by Coagulation assayOrdered By: Dr. Quick on 06-25-2022 INR Coag (Bld) [Relative time] 2.9 {INR} [facility] - CoagulationOrde red By: Dr. Quick on 06-25-2022 PT Coag (PPP) [Time] 30.0 s 11.7-14.9 [facility] Basophil percentageon 2021 Basophil percentage 2.9 mg/dL 2.5-4.9 [facility] Work Phone: Chloride [Moles/Vol] 106 mmol/L 98-107 [facility] Work Phone: Glucose [Mass/Vol] 213 mg/dL 74-106 [facility] Work Phone: Comment on above: Glucose result great er than or equal to 200 mg/dLsuggests DIABETES MELLITUS per A.D.A. criteria. Potassium [Moles/Vol] 4.3 mmol/L 3.5-5.1 [facility] Work Phone: Sodium [Moles/Vol] 138 mmol/L 136-145 [facility] Work Phone: WBC (Bld) [#/Vol] 6.4 10*3/uL 4.4-11.0 [facility] Work Phone: Blood erythrocytes count (nu mber/volume)on 04-11-2022 RBC (Bld) [#/Vol] 4.46 10*6/uL 4.6-6.2 [facility] Work Phone: Blood hemoglobin measurement (mass/volume)on 04-11-2022 Hemoglobin (Bld) [Mass/Vol] 13.8 g/dL 13.0-16.5 [facility] Work Phone: Blood platelet mean volumeon 04-11-2022 Platelet mean volume (Bld) [Entitic vol] 10.5 fL 6.2-12.0 [facility] Work Phone: Determination of erythrocyte mean corpuscular volume (MCV)on 04-11-2022 MCV (RBC) [Entitic vol] 94.6 fL 80-94 [facility] Work Phone: Hematocrit Auto (Bld) [Volum e fraction]on 04-11-2022 Hematocrit (Bld) [Volume fraction] 42.2 % 40-54 [facility] Work Phone: INR in Blood by Coagulation assayon 04-11-2022 INR Coag (Bld) [Relative time] 2.5 {INR} [facility] Work Phone: Laboratory - Chemistry and C hemistry - challengeon 04-11-2022 CO2 [Moles/Vol] 28.0 mmol/L 21.0-32.0 [facility] Work Phone: Urea nitrogen/Creatinine [Mass ratio] 13.1 mg/mg 10-20 [facility] Work Phone: Laboratory - Coagulationon 0 04-11-2022 PT Coag (PPP) [Time] 26.3 s 11.7-14.9 [facility] Work Phone: Laboratory - Hematology and Cell countson 04-11-2022 Erythrocyte distribution width (RBC) [Entitic vol] 47.9 fL 35.1-43.9 [facility] Work Phone: Erythrocyte distribution width (RBC) [Ratio] 13.8 % 11.6-14.6 [facility] Work Phone: MCH (RBC) [Entitic mass] 30.9 pg 27.0-32.0 [facility] Work Phone: MCHC Auto (RBC) [Mass/Vol]on 04-11-2022 MCHC (RBC) [Mass/Vol] 32.7 g/dL 32-36 [facility] Work Phone: No Panel Informationon 04-11 Estimated GFR (MDRD) Amer 39 mL/min >60 [facility] Work Phone: Comment on above: GFR Calc Estimated GFR (MDRD) Non-Af Amer 32 mL/min >60 [facility] Work Phone: Comment on above: Non- GFR Calc Parathyroid Hormone (Intact) 123.5 pg/mL 18.4-80.1 [facility] Work Phone: Vitamin D 25-Hydroxy 60.1 ng/mL [facility] Work Phone: Comment on above: Vitamin D 25(OH) Sta tus Range Deficiency <20 ng/mL (50nmol/L) Insufficiency 20 - 30 ng/mL (50 - 75 nmol/L) Sufficiency 30 - 100 ng/mL (75 - 250 nmol/L) Toxicity >100 ng/mL (>250 nmol/L) Platelets bldon 04-11-2022 Platelets (Bld) [#/Vol] 164 10*3/uL 150-450 [facility] Work Phone: Serum or plasma albumin acacia urement (mass/volume)on 04-11-2022 Albumin [Mass/Vol] 3.4 g/dL 3.2-5.0 [facility] Work Phone: Serum or plasma calcium acacia urement (mass/volume)on 04-11-2022 Calcium [Mass/Vol] 8.5 mg/dL 8.5-10.1 [facility] Work Phone: Serum or plasma creatinine m easurement (mass/volume)on 04-11-2022 Creatinine [Mass/Vol] 2.14 mg/dL 0.70-1.30 [facility] Work Phone: Comment on above: The validity of the calculated GFR & GFRAA in patients over 70 years has not been determined. Clinical correlation is essential. Serum or plasma urea nitroge n measurement (mass/volume)on 04-11-2022 Urea nitrogen [Mass/Vol] 28 mg/dL 7-18 [facility] Work Phone: Urine creatinine measurement (mass/volume)on 04-11-2022 Creatinine (U) [Mass/Vol] 234.00 mg/dL NO RANGE EST. [facility] Work Phone: Urine protein measurement (m ass/volume)on 04-11-2022 Protein (U) [Mass/Vol] 36.4 mg/dL 0.0-11.8 [facility] Work Phone: Urine protein/creatinine mas s ratioon 04-11-2022 Protein/Creatinine (U) [Mass ratio] 156 mg/g CRE 0-200 [facility] Work Phone: INR in Blood by Coagulation assayon 02-26-2022 INR Coag (Bld) [Relative time] 2.1 {INR} [facility] Work Phone: Laboratory - Coagulationon 0 02-26-2022 PT Coag (PPP) [Time] 22.8 s 11.7-14.9 [facility] Work Phone: INR in Blood by Coagulation assayon 01-24-2022 INR Coag (Bld) [Relative time] 2.9 {INR} [facility] Work Phone: [phone] Laboratory - Coagulationon 0 01-24-2022 PT Coag (PPP) [Time] 30.0 s 11.7-14.9 [facility] Work Phone: [phone] INR in Blood by Coagulation assayon 12-26-2021 INR Coag (Bld) [Relative time] 2.5 {INR} [facility] Work Phone: [phone] Laboratory - Coagulationon 0 12-26-2021 PT Coag (PPP) [Time] 27.0 s 11.7-14.9 [facility] Work Phone: INR in Blood by Coagulation assayon 12-11-2021 INR Coag (Bld) [Relative time] 2.1 {INR} [facility] Work Phone: Laboratory - Coagulationon 0 12-11-2021 PT Coag (PPP) [Time] 23.0 s 11.7-14.9 [facility] Work Phone: [phone] INR in Blood by Coagulation assayon 12-04-2021 INR Coag (Bld) [Relative time] 1.7 {INR} [facility] Work Phone: Laboratory - Coagulationon 0 12-04-2021 PT Coag (PPP) [Time] 18.8 s 11.7-14.9 [facility] Work Phone: Basophil percentageon 2021 Basophil percentage 3.6 mg/dL 2.5-4.9 [facility] Work Phone: Bilirubin [Mass/Vol] 0.50 mg/dL 0.20-1.00 [facility] Work Phone: Comment on above: For patients on eltr ombopag therapy, use of Dimension [place] TBIL is not recommended. Chloride [Moles/Vol] 105 mmol/L 98-107 [facility] Work Phone: Glucose [Mass/Vol] 247 mg/dL 74-106 [facility] Work Phone: Comment on above: Glucose result great er than or equal to 200 mg/dLsuggests DIABETES MELLITUS per A.D.A. criteria. Potassium [Moles/Vol] 4.2 mmol/L 3.5-5.1 [facility] Work Phone: Protein [Mass/Vol] 7.4 g/dL 6.4-8.2 [facility] Work Phone: Sodium [Moles/Vol] 137 mmol/L 136-145 [facility] Work Phone: WBC (Bld) [#/Vol] 7.8 10*3/uL 4.4-11.0 [facility] Work Phone: Blood erythrocytes count (nu mber/volume)on 10-21-2021 RBC (Bld) [#/Vol] 4.24 10*6/uL 4.6-6.2 [facility] Work Phone: Blood hemoglobin measurement (mass/volume)on 10-21-2021 Hemoglobin (Bld) [Mass/Vol] 13.6 g/dL 13.0-16.5 [facility] Work Phone: Blood platelet mean volumeon 10-21-2021 Platelet mean volume (Bld) [Entitic vol] 10.4 fL 6.2-12.0 [facility] Work Phone: Determination of erythrocyte mean corpuscular volume (MCV)on 10-21-2021 MCV (RBC) [Entitic vol] 93.6 fL 80-94 [facility] Work Phone: Direct bilirubinon 2 Bilirubin.direct [Mass/Vol] 0.16 mg/dL 0.00-0.30 [facility] Work Phone: Hematocrit Auto (Bld) [Volum e fraction]on 10-21-2021 Hematocrit (Bld) [Volume fraction] 39.7 % 40-54 [facility] Work Phone: Laboratory - Chemistry and C hemistry - challengeon 10-21-2021 ALP [Catalytic activity/Vol] 98 U/L 45-117 [facility] Work Phone: ALT [Catalytic activity/Vol] 43 U/L 16-61 [facility] Work Phone: CO2 [Moles/Vol] 26.0 mmol/L 21.0-32.0 [facility] Work Phone: Globulin (S) [Mass/Vol] 4.0 g/dL 2.2-4.[address] [facility] Work Phone: Urea nitrogen/Creatinine [Mass ratio] 12.3 mg/mg 10-20 [facility] Work Phone: Laboratory - Hematology and Cell countson 10-21-2021 Erythrocyte distribution width (RBC) [Entitic vol] 47.8 fL 35.1-43.9 [facility] Work Phone: Erythrocyte distribution width (RBC) [Ratio] 14.3 % 11.6-14.6 [facility] Work Phone: MCH (RBC) [Entitic mass] 32.1 pg 27.0-32.0 [facility] Work Phone: MCHC Auto (RBC) [Mass/Vol]on 10-21-2021 MCHC (RBC) [Mass/Vol] 34.3 g/dL 32-36 [facility] Work Phone: No Panel Informationon 10-21 Estimated GFR (MDRD) Amer 38 mL/min >60 [facility] Work Phone: Comment on above: GFR Calc Estimated GFR (MDRD) Non-Af Amer 31 mL/min >60 [facility] Work Phone: Comment on above: Non- GFR Calc Hepatitis C Antibody Non-Reactive Nonreactive [facility] Work Phone: Comment on above: Non Reactive: < 0.8 Equivocal: >/= 0.8 to < 1.0 Reactive: >/= 1.0The [facility] recommends that a reactive/equivocal HCV antibody result be followed up by the HCV Nucleic Acid Amplificationtest (378236) Prostate Specific Antigen Screen 0.34 ng/mL 0.00-4.00 [facility] Work Phone: Comment on above: This test was perfor med using the TPSA assay method for the[employer] chemistry system. Values obtained with differentassay methods cannot be used interchangably.When changing PSA assays in the course of monitoring apatient, additional sequential testing should be carriedout to confirm baseline values. Thyroid Stimulating Hormone (TSH) 2.07 uIU/mL 0.358-3.74 [facility] Work Phone: Platelets bldon 10-21-2021 Platelets (Bld) [#/Vol] 176 10*3/uL 150-450 [facility] Work Phone: Serum or plasma albumin acacia urement (mass/volume)on 10-21-2021 Albumin [Mass/Vol] 3.4 g/dL 3.2-5.0 [facility] Work Phone: Serum or plasma calcium acacia urement (mass/volume)on 10-21-2021 Calcium [Mass/Vol] 8.5 mg/dL 8.5-10.1 [facility] Work Phone: Serum or plasma creatinine m easurement (mass/volume)on 10-21-2021 Creatinine [Mass/Vol] 2.20 mg/dL 0.70-1.30 [facility] Work Phone: Comment on above: The validity of the calculated GFR & GFRAA in patients over 70 years has not been determined. Clinical correlation is essential. Serum or plasma urea nitroge n measurement (mass/volume)on 10-21-2021 Urea nitrogen [Mass/Vol] 27 mg/dL 7-18 [facility] Work Phone: Thin prep Papanicolaou smear with manual screeningon 10-21-2021 Thin prep Papanicolaou smear with manual screening 28 U/L 15-37 [facility] Work Phone: Thin prep Papanicolaou smear with manual screening 6 5-15 [facility] Work Phone: Thin prep Papanicolaou smear with manual screening 69.7 mg/L NO RANGE EST. [facility] Work Phone: CNOVon 11-26-2020 CNOV Office Visit (GENSWS ) -------- TYRELL REYES ([id number]) 1950 Date Time Provider Department 11/26/20 3:20 PM PATTI LUCIANO During your visit today, we recorded the following information about you: Patti Luciano MD 11/27/2020 12:36 PM Signed Tyrell Reyes 1950 REFERRING PHYSICIAN: Branden Shannon DO CHIEF [...] Diabetic neuropathy (HCC) - DM (diabetes mellitus) ([facility]) - Dysphagia - Folliculitis - Hypertensive disorder - Intermittent claudication (HCC) - PAD (peripheral artery disease) ([facility]) - Transient cerebral ischemia PAST SURGICAL HISTORY [...] 325 mg by mouth once daily. - HYDROcodone-acetaminophe n (NORCO) 5-325 mg per tablet Take 1 [...] ROS obtained by others. Patti Luciano MD Referring Provider: BRANDEN SHANNON [[id number]] Allergies As of Date: 11/26/2020 (No Known Allergies) Date Reviewed: 11/26/2020 Reviewed by: Sanjay Jamison LPN - Fully Assessed Primary Visit Diagnosis:Status post laparoscopic cholecystectomy [Z90.49] Prescriptions as of 11/26/2020 Sig: ATORVASTATIN 40 MG TABLET Take 40 mg by mouth once vanesa* GLIPIZIDE 5 MG TABLET METOPROLOL SUCCINATE ER 25 MG* TAMSULOSIN 0.4 MG CAPSULE Take 0.4 mg by mouth once paul* WARFARIN 2 MG TABLET 2 mg. ASPIRIN 325 MG TABLET Take 325 mg by mouth once paul* HYDROCODONE 5 MG-ACETAMINOPHE* Take 1 tablet by mouth every * NITROGLYCERIN 0.4 MG SUBLINGU* Dissolv (more content not included)... Normal [facility] CNOVon 10-29-2020 CNOV Office Visit (GENSWS ) -------- TYRELL REYES ([id number]) 1950 M Date Time Provider Department 10/29/20 9:30 AM PATTI LUCIANO During your visit today, we recorded the following information about you: Temperature Pulse Blood pressure Weight 97.3 degrees 85/minute 130/78 91.2 kg Patti Luciano MD 10/31/2020 8:47 AM Signed FOLLOW UP VISIT - CHOLECYSTECTOMY ? NAME: Tyrell Reyes CLINIC NO.: [id number] DATE OF SERVICE: 10/29/2020 ? : 1950 ? REFERRING PHYSICIAN: Branden Shannon, DO ? Tyrell is s/p laparoscopic cholecystectomy with intraoperative choleangiogram [...] physician for medical care. ? ? ? ___ Patti Luciano MD ? Referring Provider: SELF [200] Allergies As of Date: 10/29/2020 (No Known Allergies) Date Reviewed: 10/29/2020 Reviewed by: Vidya Cortés RN - Fully Assessed Reason for Visit: Established Patient [175] Primary Visit Diagnosis:Status post laparoscopic cholecystectomy [Z90.49] Prescriptions as of 10/29/2020 Sig: ATORVASTATIN 40 MG TABLET Take 40 mg by mouth once vanesa* GLIPIZIDE 5 MG TABLET METOPROLOL SUCCINATE ER 25 MG* TAMSULOSIN 0.4 MG CAPSULE Take 0.4 mg by mouth once paul* WARFARIN 2 MG TABLET 2 mg. ASPIRIN 325 MG TABLET Take 325 mg by mouth once paul* HYDROCODONE 5 MG-ACETAMINOPHE* Take 1 tablet by mouth every * NITROGLYCERIN 0.4 MG SUBLINGU* Dissolve 0.4 mg under the ton* CLOPIDOGREL 75 MG TABLET LISINOPRIL 10 MG TABLET LYRICA 150 MG CAPSULE 150 mg twice daily. * ADULT ASPIRIN EC LOW STRENGTH* Take one(1) tablet daily. METFORMIN ER 500 MG TABLET,EX* 500 mg twice daily. Problem List As Of Date 10/29/2020 Noted Resolved HEMATURIA [599.7] 02/09/2008 BPH W URINARY OBS/LUTS [N40.1] 02/09/2008 BLADDER NECK OBSTRUCTION [N32.0] 02/09/2008 PAD (peripheral artery disease) (HCC) [I73.9] 06/03/2016 Disposition: Return if symptoms worsen or fail to improve. Follow-up and Disposition History Recorded Encounter Status:Closed by MD PATTI LUCIANO on 10/31/20 [facility] CNOVon 10-22-2020 CNOV Office Visit (SWS ) -------- TYRELL REYES ([id number]) 1950 [place] Date Time Provider Department 10/22/20 9:30 AM PATTI LUCIANO During your visit today, we recorded the following information about you: Patti Luciano MD 10/27/2020 11:53 AM Signed FOLLOW UP VISIT - CHOLECYSTECTOMY NAME: Tyrell Reyes CLINIC NO.: [id number] DATE OF SERVICE: 10/22/2020 : 1950 REFERRING PHYSICIAN: DO Tyrell Hughes is a patient I am following for [...] to his primary physician for medical care. ___ Patti Luciano MD Referring Provider: SELF [200] Allergies As of Date: 10/22/2020 (No Known Allergies) Date Reviewed: 10/22/2020 Reviewed by: Sanjay Jamison LPN - Fully Assessed Primary Visit Diagnosis:Status post laparoscopic cholecystectomy [Z90.49] Prescriptions as of 10/22/2020 Sig: WARFARIN 2 MG TABLET 2 mg. ATORVASTATIN 40 MG TABLET Take 40 mg by mouth once vanesa* GLIPIZIDE 5 MG TABLET METOPROLOL SUCCINATE ER 25 MG* TAMSULOSIN 0.4 MG CAPSULE Take 0.4 mg by mouth once paul* ASPIRIN 325 MG TABLET Take 325 mg by mouth once paul* HYDROCODONE 5 MG-ACETAMINOPHE* Take 1 tablet by mouth every * NITROGLYCERIN 0.4 MG SUBLINGU* Dissolve 0.4 mg under the ton* CLOPIDOGREL 75 MG TABLET LISINOPRIL 10 MG TABLET METFORMIN ER 500 MG TABLET,EX* 500 mg twice daily. LYRICA 150 MG CAPSULE 150 mg twice daily. * ADULT ASPIRIN EC LOW STRENGTH* Take one(1) tablet daily. Medication notes this encounter METFORMIN ER 500 MG TABLET,EXTENDED RELEASE 24 HR >> Sanjay Jamison LPN 10/22/2020 9:36 AM >> SANJAY JAMISON LPN ThuOct 22, 2020 9:36 AM Please d.C Problem List As Of Date 10/22/2020 Noted Resolved HEMATURIA [599.7] 02/09/2008 BPH W URINARY OBS/LUTS [N40.1] 02/09/2008 BLADDER NECK OBSTRUCTION [N32.0] 02/09/2008 PAD (peripheral artery disease) (HCC) [I73.9] 06/03/2016 Encounter Status:Closed by MD PATTI LUCIANO on 10/27/20 [facility] -------- TYRELL REYES ([id number]) 1950 M Date Time Provider Department 10/22/20 PATTI LUCIANO During your visit today, we recorded the following information about you: Susanna Berkowitz Admin Sec 10/22/2020 11:39 AM Signed Pt called wanting to give the office information that his tested positive for COVID today. He stated he was in there today. He does not have any symptoms, but she was in the car with him when he came today. He has an appointment next week that he just wanted to be sure that he was okay to come as long as he remains symptom free. Sharda Christensen FISHING GUIDE 10/22/2020 12:38 PM Signed Patient notified ok to proceed with Fu next week as long as remains s/sx free. Allergies As of Date: 10/22/2020 (No Known Allergies) Date Reviewed: 10/22/2020 Reviewed by: Sanjay Jamison LPN - Fully Assessed Reason for Visit: Patient Question [1477] Prescriptions as of 10/22/2020 Sig: ATORVASTATIN 40 MG TABLET Take 40 mg by mouth once vanesa* GLIPIZIDE 5 MG TABLET METOPROLOL SUCCINATE ER 25 MG* TAMSULOSIN 0.4 MG CAPSULE Take 0.4 mg by mouth once paul* WARFARIN 2 MG TABLET 2 mg. ASPIRIN 325 MG TABLET Take 325 mg by mouth once paul* HYDROCODONE 5 MG-ACETAMINOPHE* Take 1 tablet by mouth every * NITROGLYCERIN 0.4 MG SUBLINGU* Dissolve 0.4 mg under the ton* CLOPIDOGREL 75 MG TABLET LISINOPRIL 10 MG TABLET METFORMIN ER 500 MG TABLET,EX* 500 mg twice daily. LYRICA 150 MG CAPSULE 150 mg twice daily. * ADULT ASPIRIN EC LOW STRENGTH* Take one(1) tablet daily. Problem List As Of Date 10/22/2020 Noted Resolved HEMATURIA [599.7] 02/09/2008 BPH W URINARY OBS/LUTS [N40.1] 02/09/2008 BLADDER NECK OBSTRUCTION [N32.0] 02/09/2008 PAD (peripheral artery disease) ([facility]) [I73.9] 06/03/2016 Encounter Status:Closed by SHARDA CHRISTENSEN LPN on 10/22/20 Normal [facility] CBCon 09-21-2018 Erythrocyte distribution width Ratio (RBC) 13.5 % Normal 11-14.5 [facility] Comment on above: Order Comment: Teodorou s: M Performed By: #### L [id number] #### [facility] [address] [place] [address] Hematocrit Volume Fraction (Bld) 35.9 % Low 41.0-53.0 [facility] Comment on above: Order Comment: Campu s: M Performed By: #### L [id number] #### [facility] [address] [place] [address] Hemoglobin mass conc (Bld) 11.8 g/dL Low 13.5-17.5 [facility] Comment on above: Order Comment: Campu s: M Performed By: #### L [id number] #### [facility] [address] [place], [place] [address] MCHC mass conc (RBC) 32.9 g/dL Normal 32.0-36.0 [facility] Comment on above: Order Comment: Campu s: M Performed By: #### L [id number] #### [facility] [address] [place], [place] [address] MCV Entitic volume (RBC) 91.8 fL Normal 80.0-99.0 [facility] Comment on above: Order Comment: Campu s: M Performed By: #### L [id number] #### [facility] [address] [place] [address] Nucleated RBC/100 WBC Ratio (Bld) 0.0 % Normal Less than 1 [facility] Comment on above: Order Comment: Campu s: M Performed By: #### L [id number] #### [facility] [address] [place] [address] Platelet mean volume Entitic volume (Bld) 10.0 fL Normal 9.4-12.4 [facility] Comment on above: Order Comment: Campu s: M Performed By: #### L [id number] #### [facility] [address] [place] [address] Platelets #/vol (Bld) 220 K/CU MM Normal 150-450 [facility] Comment on above: Order Comment: Campu s: M Performed By: #### L [id number] #### [facility] [address] [place] [address] RBC #/vol (Bld) 3.91 M/CU MM Low 4.50-6.00 [facility] Comment on above: Order Comment: Campu s: M Performed By: #### L [id number] #### [facility] [address] [place] [address] WBC #/vol (Bld) 6.1 K/CUMM Normal 4.5-11.0 [facility] Comment on above: Order Comment: Campu s: M Performed By: #### L [id number] #### [facility] [address] [place] [address] GFR ESTon 09-21-2018 IF AMER 41 ML/MIN Normal [facility] Comment on above: Order Comment: Campu s: M Performed By: #### L 500.72180, L500.98000 #### [facility] [address] [place] [address] IF non-AFR AMER 33 ML/MIN Normal [facility] Comment on above: Order Comment: Meera hernadez: [place] Performed By: #### L 500.86069, L500.60094 #### [facility] [address] [place] [address] ORon 09-21-2018 OPERATIVE REPORT Normal [facility] OR DATE OF SERVICE: 09/21/2018 PREOPERATIVE DIAGNOSIS: Claudication with iliac stenosis. POSTOPERATIVE DIAGNOSIS: Claudication with iliac stenosis. OPERATION: 1. Ultrasound-guided access retrograde, left brachial artery. 2. Large aortogram with left subclavian angiogram. 3. Aortoiliac angiogram. 4. Right common iliac stent with an 8 x 27 Express LD. SURGEON: Derrick Nelson MD INDICATION: Patient with worsening claudication with buttock claudication, found to have a right common iliac stenosis. Discussed we would do an angiogram with intervention. Risks, benefits, and alternatives discussed. He agreed to proceed. DESCRIPTION OF OPERATION: Patient brought to the operating room. Underwent the appropriate timeout consent. Underwent sedation. Was prepped and draped in a sterile fashion. We did ultrasound-guided access retrograde in the left brachial artery. We put a glidewire up and then a 6-[place] sheath. We gave 5000 units of heparin. We got the wire down through the subclavian stent and using a KMP got it down the descending thoracic aorta. We got it all the way down through the aorta and into the right common and external iliac artery and then over the KMP we then switched to a stiff glidewire. We then brought in a long 6-[place] sheath, watching carefully as it went through the subclavian stent, and once it was in the distal aorta we did an aortogram, trying to limit dye with his elevated creatinine. It showed the iliac stenosis. The wire was through it. We then brought in an 8 x 27 Express LD and deployed it with good position. Completion with much improved better flow to both iliac systems. We then removed out the sheath after we pulled it through the subclavian stent. We did an arch aortogram through the subclavian stent with just some minimal dye, but it showed it open and good flow through this. We then removed out the sheath and put a shorter sheath and then deployed a Boomerang with good hemostasis. Brought to recovery in stable condition. SEDATION: This 67-year-old gentleman under moderate sedation given by Dr. Derrick Nelson. He was monitored with EKG, blood pressure, and pulse oximetry. He was given fentanyl and Versed and tolerated the procedure well. He was monitored for over the 30 minutes of the procedure. See the EMR for a more complete record. Derrick Nelson MD [facility] PATIENT NAME: TYRELL REYES DaleMello Kenzie Mohr MEDICAL REC #: [id number] [place] [address] ADMIT DATE: DISCHARGE DATE: OPERATIVE REPORT ATTENDING PHY: Derrick Nelson MD [id number] [facility] File#: [id number] Verified/Reviewed by 09/21/18 [facility] MELANIE [facility] PATIENT NAME: TYRELL REYES DaleMello Kenzie Mohr MEDICAL REC #: [id number] [place] [address] ADMIT DATE: DISCHARGE DATE: OPERATIVE REPORT ATTENDING PHY: Derrick Nelson MD [facility] RENALon 09-21-2018 Albumin mass conc 3.6 g/dL Normal 3.2-5.0 [facility] [facility] Comment on above: Order Comment: Campu s: M Performed By: #### L [id number], [id number] #### [facility] [address] [place] [address] Anion gap molar conc 7 mmol/L Normal 5-16 [facility] Comment on above: Order Comment: Campu s: M Performed By: #### L [id number], [id number] #### [facility] [address] [place] [address] Calcium mass conc 8.3 mg/dL Low 8.5-10.1 [facility] Comment on above: Order Comment: Campu s: M Performed By: #### L [id number], [id number] #### [facility] [address] [place] [address] Chloride molar conc 110 mmol/L High 98-107 [facility] Comment on above: Order Comment: Campu s: M Performed By: #### L [id number], [id number] #### [facility] [address] [place] [address] CO2 molar conc 23 mmol/L Normal 21-32 [facility] Comment on above: Order Comment: Campu s: M Performed By: #### L [id number], [id number] #### [facility] [place] [address] Creatinine mass conc 1.990 mg/dL High 0.670-1.170 [facility] Comment on above: Order Comment: Campu s: M Result Comment: Maame ents receiving either N-Acetylcysteine (NAC) or Metamizole prior to venipuncture, may have falsely depressed results. Performed By: #### L 500.36297, [id number] #### [facility] [address] [place] [address] Glucose mass conc 150 mg/dL High 70-100 [facility] Comment on above: Order Comment: Campu s: M Result Comment: 70-1 00- Normal Fasting; 100-125 Impaired Fasting; greater than 126 on more than one result- Diabetes. ADA guidelines. Results may be falsely elevated after the administration of Sulfapyridine. Results may be falsely depressed after the administration of Sulfasalazine. Performed By: #### L 500.81412, [id number] #### [facility] [address] [place] [address] Phosphate mass conc 3.5 mg/dL Normal 2.5-4.9 [facility] Comment on above: Order Comment: Campu s: M Performed By: #### L 500.64535, [id number] #### [facility] [address] [place] [address] Potassium molar conc 5.0 mmol/L Normal 3.5-5.1 [facility] Comment on above: Order Comment: Campu s: M Performed By: #### L 500.45379, [id number] #### [facility] [address] [place] [address] Sodium molar conc 141 mmol/L Normal 136-145 [facility] Comment on above: Order Comment: Campu s: M Performed By: #### L 500.04075, [id number] #### [facility] [address] [place] [address] Urea nitrogen mass conc 32 mg/dL High 7-26 [facility] Comment on above: Order Comment: Campu s: M Performed By: #### L 500.52974, [id number] #### [facility] [address] [place] [address] Urea nitrogen/Creatinine mass ratio 16 mg/mg Normal 15-24 [facility] Comment on above: Order Comment: Campu s: [place] Performed By: #### L 500.66439, L500.62999 #### [facility] [address] [place] [address]# [phone] Chart Maintenanceon 02-28-20 17 Cholesterol 186 mg/dL Invalid Interpretation Code [facility] Work Phone: [phone] HDL Cholesterol 35 mg/dL Invalid Interpretation Code [facility] Work Phone: [phone] Triglyceride 444 mg/dL Invalid Interpretation Code [facility] Work Phone: [phone] Office Visit: [facility] 12-06-19 17 Dietary management education, guidance, and counseling (procedure) yes Invalid Interpretation Code [facility] Work Phone: [phone] Documentation of current medications (procedure) Done Invalid Interpretation Code [facility] Work Phone: [phone] Clinical Lists Updateon 11-13 Left ventricular Ejection fraction 65 % Invalid Interpretation Code [facility] Work Phone: [phone] Office Visit: [facility] 11-27-19 17 Creatinine 1.71 mg/dL Invalid Interpretation Code [facility] Work Phone: [phone] Urea nitrogen 52 mg/dL Invalid Interpretation Code [facility] Work Phone: [phone] Office Visiton 06-05-2016 Tobacco use CPHS Former smoker Invalid Interpretation Code [facility] Work Phone: [phone] Chart Maintenanceon 04-28-20 16 Alanine aminotransferase (ALT) 63 U/L Invalid Interpretation Code [facility] Work Phone: [phone] Aspartate aminotransferase (AST) 40 U/L Invalid Interpretation Code [facility] Work Phone: [phone] HbA1c 7.1 % High [facility] Work Phone: [phone] Chart Maintenanceon 02-28-20 16 Anion gap 11 mmol/L Invalid Interpretation Code [facility] Work Phone: [phone] BUN/Creatinine Ratio 16.3 mg/mg Invalid Interpretation Code [facility] Work Phone: [phone] Calcium 8.2 mg/dL Invalid Interpretation Code [facility] Work Phone: [phone] Chloride 111 mmol/L Invalid Interpretation Code [facility] Work Phone: [phone] CO2 19.0 mmol/L Invalid Interpretation Code [facility] Work Phone: [phone] Glucose 165 mg/dL High [facility] Work Phone: [phone] Hematocrit (HCT) 36.9 % Invalid Interpretation Code [facility] Work Phone: [phone] Hemoglobin (HGB) 12.1 g/dL Invalid Interpretation Code [facility] Work Phone: [phone] LDL Cholesterol 47 mg/dL Invalid Interpretation Code [facility] Work Phone: [phone] Platelets 164 10*3/mm3 Invalid Interpretation Code [facility] Work Phone: [phone] Potassium 4.7 mmol/L Invalid Interpretation Code [facility] Work Phone: [phone] Sodium 141 mmol/L Invalid Interpretation Code [facility] Work Phone: [phone] WBC (Leukocytes) 5.6 10*3/uL Invalid Interpretation Code [facility] Work Phone: [phone] Lab Report: Lipid Profileon 03-28-2015 very low density lipoproteins 49 mg/dL High 5-40 [facility] Work Phone: [phone] Lab Report: Liver Profileon 03-28-2015 Albumin 3.8 g/dL Invalid Interpretation Code 3.4-5.0 [facility] Work Phone: [phone] Alkaline phosphatase (ALP) 79 U/L Invalid Interpretation Code 50-136 [facility] Work Phone: [phone] Bilirubin (direct) 0.19 mg/dL Invalid Interpretation Code 0.00-0.30 [facility] Work Phone: [phone] Bilirubin (total) 0.60 mg/dL Invalid Interpretation Code 0.20-1.00 [facility] Work Phone: [phone] Globulin 4.1 g/dL Invalid Interpretation Code 2.7-4.2 [facility] Work Phone: [phone] Protein 7.9 g/dL Invalid Interpretation Code 6.4-8.2 [facility] Work Phone: [phone] Office Visiton 03-28-2015 cardiac risk group C Invalid Interpretation Code [facility] Phone: [phone] General cardiovascular disease 10Y risk [#] [place]arah'Lore[place] N/A Invalid Interpretation Code [facility] Phone: [phone] Replaced Document: Shira IBANEZ Observationson 03-28-2015 electrocardiogram interpretation Sinus Rhythm -RSR(V1) -nondiagnostic. PROBABLY NORMAL Invalid Interpretation Code [facility] Work Phone: [phone] GE use only - for [employer] import when terms are not otherwise specified 396 ms Invalid Interpretation Code [facility] Work Phone: [phone] P wave axis, electrocardiogram 52 deg Invalid Interpretation Code [facility] Work Phone: [phone] ND interval, electrocardiogram 150 ms Invalid Interpretation Code [facility] Work Phone: [phone] Pulse (Heart Rate) 73 /min Invalid Interpretation Code [facility] Phone: [phone] QRS axis, electrocardiogram -16 deg Invalid Interpretation Code [facility] Phone: [phone] QRS duration, electrocardiogram 96 ms Invalid Interpretation Code [facility] Phone: [phone] QT interval, electrocardiogram new path ms Invalid Interpretation Code [facility] Phone: [phone] T wave axis, electrocardiogram 32 deg Invalid Interpretation Code [facility] Phone: [phone] Clinical 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 Lexus Rivera DO Work Phone: [facility] 03-29-2025 11:41-0400 Body weight 67.[address] Lexus Rivera DO Work Phone: [facility] 03-02-2025 09:02-0400 Body height 171.[address] Lexus Rivera DO Work Phone: [facility] 03-02-2025 09:02-0400 Body mass index (BMI) [Ratio] 23 kg/m2 Dr. Lexus Rivera DO Work Phone: [facility] 03-02-2025 09:02-0400 Body weight 67.[address] Lexus Rivera DO Work Phone: [facility] 03-02-2025 09:02-0400 Diastolic blood pressure 69 mm[Hg] Dr. Lexus Rivera DO Work Phone: [facility] 03-02-2025 09:02-0400 Heart rate 71 /min Dr. Lexus Rivera DO Work Phone: [facility] 03-02-2025 09:02-0400 Respiratory rate 18 /min Dr. Lexus Rivera DO Work Phone: [facility] 03-02-2025 09:02-0400 Systolic blood pressure 107 mm[Hg] Dr. Lexus Rivera DO Work Phone: [facility] 02-15-2025 11:38-0400 Body height 171.[address] Lexus Rivera DO Work Phone: [facility] 02-15-2025 11:35-0400 Body mass index (BMI) [Ratio] 23.4 kg/m2 Dr. Lexus Rivera DO Work Phone: [facility] 02-15-2025 11:35-0400 Body temperature 98.2 [degF] Dr. Lexus Rivera DO Work Phone: [facility] 02-15-2025 11:35-0400 Body weight [address] Lexus Rivera DO Work Phone: [facility] 02-15-2025 11:35-0400 Diastolic blood pressure 76 mm[Hg] Dr. Lexus Rivera DO Work Phone: [facility] 02-15-2025 11:35-0400 Heart rate 82 /min Dr. Lexus Rivera DO Work Phone: [facility] 02-15-2025 11:35-0400 Respiratory rate 18 /min Dr. Lexus Rivera DO Work Phone: [facility] 02-15-2025 11:35-0400 SaO2% (BldA) [Mass fraction] 97 % Dr. Lexus Rivera DO Work Phone: [facility] 02-15-2025 11:35-0400 Systolic blood pressure 144 mm[Hg] Dr. Lexus Rivera DO Work Phone: [facility] 01-02-2025 13:19-0400 Body weight 68.[address] Lexus Rivera DO Work Phone: [facility] 11-25-2024 05:37-0400 Body mass index (BMI) [Ratio] 23.1 kg/m2 Dr. Lexus Rivera DO Work Phone: [facility] 11-25-2024 05:37-0400 Body temperature 97 [degF] Dr. Lexus Rivera DO Work Phone: [facility] 11-25-2024 05:37-0400 Body weight 68.[address] Lexus Rivera DO Work Phone: [facility] 11-25-2024 05:37-0400 Diastolic blood pressure 61 mm[Hg] Dr. Lexus Rivera DO Work Phone: [facility] 11-25-2024 05:37-0400 Heart rate 78 /min Dr. Lexus Rivera DO Work Phone: [facility] 11-25-2024 05:37-0400 Respiratory rate 18 /min Dr. Lexus Rivera DO Work Phone: [facility] 11-25-2024 05:37-0400 SaO2% (BldA) [Mass fraction] 98 % Dr. Lexus Rivera DO Work Phone: [facility] 11-25-2024 05:37-0400 Systolic blood pressure 124 mm[Hg] Dr. Lexus Rivera DO Work Phone: [facility] 11-14-2024 14:16-0500 Body height 171.[address] Lexus Rivera DO Work Phone: [facility] 11-14-2024 14:16-0500 Body weight 68.[address] Lexus Rivera DO Work Phone: [facility] 11-14-2024 10:06-0500 Body mass index (BMI) [Ratio] 23.5 kg/m2 Dr. Lexus Rivera DO Work Phone: [facility] 11-14-2024 10:06-0500 Body temperature 97.3 [degF] Dr. Lexus Rivera DO Work Phone: [facility] 11-14-2024 10:06-0500 Body weight 69.[address] Lexus Rivera DO Work Phone: [facility] 11-14-2024 10:06-0500 Diastolic blood pressure 68 mm[Hg] Dr. Lexus Rivera DO Work Phone: [facility] 11-14-2024 10:06-0500 Heart rate 75 /min Dr. Lexus Rivera DO Work Phone: [facility] 11-14-2024 10:06-0500 Respiratory rate 18 /min Dr. Lexus Rivera DO Work Phone: [facility] 11-14-2024 10:06-0500 SaO2% (BldA) [Mass fraction] 100 % Dr. Lexus Rivera DO Work Phone: [facility] 11-14-2024 10:06-0500 Systolic blood pressure 121 mm[Hg] Dr. Lexus Rivera DO Work Phone: [facility] 11-04-2024 13:02-0500 Body temperature 96.5 [degF] Dr. Lexus Rivera DO Work Phone: [facility] 11-04-2024 13:02-0500 Diastolic blood pressure 51 mm[Hg] Dr. Lexus Rivera DO Work Phone: [facility] 11-04-2024 13:02-0500 Heart rate 55 /min Dr. Lexus Rivera DO Work Phone: [facility] 11-04-2024 13:02-0500 Respiratory rate 18 /min Dr. Lexus Rivera DO Work Phone: [facility] 11-04-2024 13:02-0500 SaO2% (BldA) [Mass fraction] 97 % Dr. Lexus Rivera DO Work Phone: [facility] 11-04-2024 13:02-0500 Systolic blood pressure 94 mm[Hg] Dr. Lexus Rivera DO Work Phone: [facility] 11-04-2024 10:30-0500 Body mass index (BMI) [Ratio] 23.8 kg/m2 Dr. Lexus Rivera DO Work Phone: [facility] 11-04-2024 10:30-0500 Body weight 69.[address] Lexus Rivera DO Work Phone: [facility] 10-20-2024 12:37-0500 Body weight 68.[address] Lexus Rivera DO Work Phone: [facility] 10-20-2024 12:37-0500 Heart rate 80 /min Dr. Lexus Rivera DO Work Phone: [facility] 10-20-2024 12:37-0500 SaO2% (BldA) [Mass fraction] 98 % Dr. Lexus Rivera DO Work Phone: [facility] 10-13-2024 09:59-0500 Body mass index (BMI) [Ratio] 24.1 kg/m2 Dr. Lexus Rivera DO Work Phone: [facility] 10-13-2024 09:59-0500 Body temperature 97.2 [degF] Dr. Lexus Rivera DO Work Phone: [facility] 10-13-2024 09:59-0500 Body weight 69.[address] Lexus Rivera DO Work Phone: [facility] 10-13-2024 09:59-0500 Diastolic blood pressure 68 mm[Hg] Dr. Lexus Rivera DO Work Phone: [facility] 10-13-2024 09:59-0500 Heart rate 78 /min Dr. Lexus Rivera DO Work Phone: [facility] 10-13-2024 09:59-0500 Respiratory rate 18 /min Dr. Lexus Rivera DO Work Phone: [facility] 10-13-2024 09:59-0500 SaO2% (BldA) [Mass fraction] 99 % Dr. Lexus Rivera DO Work Phone: [facility] 10-13-2024 09:59-0500 Systolic blood pressure 120 mm[Hg] Dr. Lexus Rivera DO Work Phone: [facility] 10-07-2024 09:16-0500 Body mass index (BMI) [Ratio] 24.1 kg/m2 Dr. Lexus Rivera DO Work Phone: [facility] 10-07-2024 09:16-0500 Body temperature 97.6 [degF] Dr. Lexus Rivera DO Work Phone: [facility] 10-07-2024 09:16-0500 Body weight 69.[address] Lexus Rivera DO Work Phone: [facility] 10-07-2024 09:16-0500 Diastolic blood pressure 68 mm[Hg] Dr. Lexus Rivera DO Work Phone: [facility] 10-07-2024 09:16-0500 Heart rate 83 /min Dr. Lexus Rivera DO Work Phone: [facility] 10-07-2024 09:16-0500 Respiratory rate 16 /min Dr. Lexus Rivera DO Work Phone: [facility] 10-07-2024 09:16-0500 SaO2% (BldA) [Mass fraction] 100 % Dr. Lexus Rivera DO Work Phone: [facility] 10-07-2024 09:16-0500 Systolic blood pressure 124 mm[Hg] Dr. Lexus Rivera DO Work Phone: [facility] 08-29-2024 06:19-0500 Body mass index (BMI) [Ratio] 24.3 kg/m2 Dr. Lexus Rivera DO Work Phone: [facility] 08-29-2024 06:19-0500 Body weight 70.[address] Lexus Rivera DO Work Phone: [facility] 08-29-2024 06:19-0500 Diastolic blood pressure 58 mm[Hg] Dr. Lexus Rivera DO Work Phone: [facility] 08-29-2024 06:19-0500 Heart rate 74 /min Dr. Lexus Rivera DO Work Phone: [facility] 08-29-2024 06:19-0500 Respiratory rate 16 /min Dr. Lexus Rivera DO Work Phone: [facility] 08-29-2024 06:19-0500 Systolic blood pressure 93 mm[Hg] Dr. Leuxs Rivera DO Work Phone: [facility] 03-16-2024 11:33-0400 Body temperature 97.3 [degF] Dr. Lexus Rivera DO Work Phone: [facility] 03-16-2024 11:33-0400 Diastolic blood pressure 63 mm[Hg] Dr. Lexus Rivera DO Work Phone: [facility] 03-16-2024 11:33-0400 Heart rate 83 /min Dr. Lexus Rivera DO Work Phone: [facility] 03-16-2024 11:33-0400 Respiratory rate 16 /min Dr. Lexus Rivera DO Work Phone: [facility] 03-16-2024 11:33-0400 SaO2% (BldA) [Mass fraction] 98 % Dr. Lexus Rivera DO Work Phone: [facility] 03-16-2024 11:33-0400 Systolic blood pressure 166 mm[Hg] Dr. Lxeus Rivera DO Work Phone: [facility] 03-16-2024 09:18-0400 Body mass index (BMI) [Ratio] 26.9 kg/m2 Dr. Lexus Rivera DO Work Phone: [facility] 01-18-2024 08:30-0400 Body temperature 97 [degF] Dr. Lexus Rivera Work Phone: [facility] 01-18-2024 08:30-0400 Diastolic blood pressure 63 mm[Hg] Dr. Lexus Rivera Work Phone: [facility] 01-18-2024 08:30-0400 Heart rate 64 /min Dr. Lexus Rivera Work Phone: [facility] 01-18-2024 08:30-0400 Respiratory rate 16 /min Dr. Lexus Rivera Work Phone: [facility] 01-18-2024 08:30-0400 SaO2% (BldA) [Mass fraction] 95 % Dr. Lexus Rivera Work Phone: [facility] 01-18-2024 08:30-0400 Systolic blood pressure 148 mm[Hg] Dr. Lexus Rivera Work Phone: [facility] 01-18-2024 06:34-0400 Body height 170.[address] Lexus Rivera Work Phone: [facility] 01-18-2024 06:34-0400 Body mass index (BMI) [Ratio] 30.4 kg/m2 Dr. Lexus Rivera Work Phone: [facility] 01-18-2024 06:34-0400 Body weight [address] Lexus Rivera Work Phone: [facility] 10-06-2023 10:02-0500 Body height 170.[address] Lexus Rivera Work Phone: [facility] 10-06-2023 10:02-0500 Body mass index (BMI) [Ratio] 31.1 kg/m2 Dr. Lexus Rivera Work Phone: [facility] 10-06-2023 10:02-0500 Body weight 90.[address] Lexus Rivera Work Phone: [facility] 10-06-2023 10:02-0500 Diastolic blood pressure 68 mm[Hg] Dr. Lexus Rivera Work Phone: [facility] 10-06-2023 10:02-0500 Heart rate 72 /min Dr. Lexus Rivera Work Phone: [facility] 10-06-2023 10:02-0500 Respiratory rate 18 /min Dr. Lexus Rivera Work Phone: [facility] 10-06-2023 10:02-0500 SaO2% (BldA) [Mass fraction] 96 % Dr. Lexus Rivera Work Phone: [facility] 10-06-2023 10:02-0500 Systolic blood pressure 113 mm[Hg] Dr. Lexus Rivera Work Phone: [facility] 09-20-2023 01:42-0500 Heart rate 82 /min [facility] 09-20-2023 01:42-0500 Respiratory rate 16 /min [facility] 09-20-2023 01:42-0500 SaO2% (BldA) [Mass fraction] 98 % [facility] 09-20-2023 00:05-0500 Body height 170.18 cm [facility] 09-20-2023 00:05-0500 Body mass index (BMI) [Ratio] 31.8 kg/m2 [facility] 09-20-2023 00:05-0500 Body temperature 97.8 [degF] [facility] 09-20-2023 00:05-0500 Body weight 92.2 kg [facility] 09-20-2023 00:05-0500 Diastolic blood pressure 42 mm[Hg] [facility] 09-20-2023 00:05-0500 Systolic blood pressure 120 mm[Hg] [facility] 02-03-2023 09:36-0400 Body height 170.[address] Lexus Rivera Work Phone: [facility] 02-03-2023 09:36-0400 Body mass index (BMI) [Ratio] 30.8 kg/m2 Dr. Lexus Rivera Work Phone: [facility] 02-03-2023 09:36-0400 Body weight 89.[address] Lexus Rivera Work Phone: [facility] 02-03-2023 09:36-0400 Diastolic blood pressure 64 mm[Hg] Dr. Lexus Rivera Work Phone: [facility] 02-03-2023 09:36-0400 Heart rate 64 /min Dr. Lexus Rivera Work Phone: [facility] 02-03-2023 09:36-0400 Respiratory rate 18 /min Dr. Lexus Rivera Work Phone: [facility] 02-03-2023 09:36-0400 Systolic blood pressure 138 mm[Hg] Dr. Lexus Rivera Work Phone: [facility] 10-13-2022 09:16-0500 Body height 170.[address] Lexus Rivera Work Phone: [facility] 10-13-2022 09:16-0500 Body mass index (BMI) [Ratio] 30.2 kg/m2 Dr. Lexus Rivera Work Phone: [facility] 10-13-2022 09:16-0500 Body weight 87.[address] Lexus Rivera Work Phone: [facility] 10-13-2022 09:16-0500 Diastolic blood pressure 73 mm[Hg] Dr. Lexus Rivera Work Phone: [facility] 10-13-2022 09:16-0500 Heart rate 71 /min Dr. Lexus Rivera Work Phone: [facility] 10-13-2022 09:16-0500 Respiratory rate 18 /min Dr. Lexus Rivera Work Phone: [facility] 10-13-2022 09:16-0500 SaO2% (BldA) [Mass fraction] 98 % Dr. Lexus Rivera Work Phone: [facility] 10-13-2022 09:16-0500 Systolic blood pressure 135 mm[Hg] Dr. Lexus Rivera Work Phone: [facility] 09-15-2022 12:31-0500 Diastolic blood pressure 77 mm[Hg] Dr. Lexus Rivera Work Phone: [facility] 09-15-2022 12:31-0500 Systolic blood pressure 171 mm[Hg] Dr. Lexus Rivera Work Phone: [facility] 09-15-2022 08:58-0500 Body mass index (BMI) [Ratio] 30.5 kg/m2 Dr. Lexus Rivera Work Phone: [facility] 09-15-2022 08:58-0500 Body temperature 98 [degF] Dr. Lexus Rivera Work Phone: [facility] 09-15-2022 08:58-0500 Body weight 88.[address] Lexus Rivera Work Phone: [facility] 09-15-2022 08:58-0500 Heart rate 93 /min Dr. Lexus Rivera Work Phone: [facility] 09-15-2022 08:58-0500 Respiratory rate 20 /min Dr. Lexus Rivera Work Phone: [facility] 09-15-2022 08:58-0500 SaO2% (BldA) [Mass fraction] 97 % Dr. Lexus Rivera Work Phone: [facility] 07-09-2022 09:15-0400 Body height 170.[address] Lexus Rivera Work Phone: [facility] Work Phone: 07-09-2022 09:15-0400 Body mass index (BMI) [Ratio] 30.7 kg/m2 Dr. Lexus Rivera Work Phone: [facility] 07-09-2022 09:15-0400 Body weight 88.[address] Lexus Rivera Work Phone: [facility] 07-09-2022 09:15-0400 Diastolic blood pressure 55 mm[Hg] Dr. Lexus Rivera Work Phone: [facility] 07-09-2022 09:15-0400 Heart rate 75 /min Dr. Lexus Rivera Work Phone: [facility] 07-09-2022 09:15-0400 Respiratory rate 18 /min Dr. Lexus Rivera Work Phone: [facility] 07-09-2022 09:15-0400 SaO2% (BldA) [Mass fraction] 97 % Dr. Lexus Rivera Work Phone: [facility] 07-09-2022 09:15-0400 Systolic blood pressure 114 mm[Hg] Dr. Lexus Rivera Work Phone: [facility] 01-06-2022 09:02-0400 Body height 170.[address] Lexus Rivera Work Phone: [facility] Work Phone: 01-06-2022 09:02-0400 Body mass index (BMI) [Ratio] 30.8 kg/m2 Dr. Lexus Rivera Work Phone: [facility] Work Phone: 01-06-2022 09:02-0400 Body weight 89.[address] Lexus Rivera Work Phone: [facility] Work Phone: 01-06-2022 09:02-0400 Diastolic blood pressure 69 mm[Hg] Dr. Lexus Rivera Work Phone: [facility] Work Phone: 01-06-2022 09:02-0400 Heart rate 69 /min Dr. Lexus Rivera Work Phone: [facility] Work Phone: 01-06-2022 09:02-0400 Respiratory rate 16 /min Dr. Lexus Rivera Work Phone: [facility] Work Phone: 01-06-2022 09:02-0400 Systolic blood pressure 138 mm[Hg] Dr. Lexus Rivera Work Phone: [facility] Work Phone: 01-06-2022 09:02-0400 Body height 170.[address] Lexus Rivera Work Phone: [facility] Work Phone: 01-06-2022 09:02-0400 Body mass index (BMI) [Ratio] 30.8 kg/m2 Dr. Lexus Rivera Work Phone: [facility] Work Phone: 01-06-2022 09:02-0400 Body weight 89.[address] Lexus Rivera Work Phone: [facility] Work Phone: 01-06-2022 09:02-0400 Diastolic blood pressure 69 mm[Hg] Dr. Lexus Rivera Work Phone: [facility] Work Phone: 01-06-2022 09:02-0400 Heart rate 69 /min Dr. Lexus Rivera Work Phone: [facility] Work Phone: 01-06-2022 09:02-0400 Respiratory rate 16 /min Dr. Lexus Rivera Work Phone: [facility] Work Phone: 01-06-2022 09:02-0400 Systolic blood pressure 138 mm[Hg] Dr. Lexus Rivera Work Phone: [facility] Work Phone: 10-16-2020 06:40-0500 Body mass index (BMI) [Ratio] 30.1 kg/m2 [facility] Work Phone: 12-05-2016 15:44-0400 BMI (Body Mass Index) 30.55 kg/m2 [facility] Work Phone: 12-05-2016 15:44-0400 Weight 89.81 kg [facility] Work Phone: 06-05-2016 14:35-0400 BP Diastolic 50 mm[Hg] [facility] Work Phone: 06-05-2016 14:35-0400 BP Systolic 130 [...] [facility] Work Phone: [id number] Respiratory Rate 18 /min [facility] Work Phone: 12-20-2015 [id number] Body Temperature 98.3 [degF] [facility] Work Phone: [phone]:[phone] BSA (Body Surface Area) 1.99 m2 [facility] Work Phone: Encounters Encounter Date Encounter Type Care Provider Facility Start: 05-16-2025 ambulatory [facility] Facility: [facility] Start: 05-15-2025 ambulatory Lexus Rivera Facility: [facility] Start: 05-05-2025 End: 05-05-[address] Zhang Quick MD -Laboratory Work Phone: Start: 05-05-2025 End: 05-05-[address] Lexus Rivera DO Work Phone: -Laboratory Start: 05-03-[address] Riki Pond on DO -Speech Therapy Work Phone: Start: 04-20-2025 End: 04-20-[address] Lexus Rivera DO Work Phone: -Radiology [facility] Start: 04-20-2025 End: 04-20-[address] Riki Lizama DO -Radiology [facility] Work Phone: Start: 04-20-2025 End: 04-20-2025 ambulatory Riki Dl Facility:[facility] Start: 04-18-2025 End: 04-18-2025 ambulatory LEXUS RIVERA DO Facility:[facility] Start: 04-18-2025 End: 04-18-2025 Patient encounter procedure LEXUS RIVREA DO [facility] Start: 04-17-[address] Riki Pond on DO -Speech Therapy Work Phone: Start: 04-13-[address] Riki Pond on DO -Speech Therapy Work Phone: Start: 03-31-2025 End: 04-13-[address] Lexus Rivera DO Work Phone: -Laboratory Start: 03-31-2025 End: 04-13-[address] Zhang Quick MD -Laboratory Work Phone: Start: 03-27-[address] Riki Pond on DO -Speech Therapy Work Phone: Start: 03-24-[address] Zhang Quick MD -Laboratory Work Phone: Start: 03-22-2025 End: 03-22-[address] Lexus Rivera DO Work Phone: -Radiology [facility] Start: 03-22-2025 End: 03-22-[address] Lexus Rivera DO -Radiology [facility] Work Phone: Start: 03-22-2025 End: 03-22-2025 ambulatory Lexus Rivera Facility:[facility] Start: 03-06-2025 End: 03-06-2025 ambulatory LEXUS RIVERA DO Facility:[facility] Start: 03-06-2025 End: 03-06-[address] DAVIS ORDONEZ MD [facility] Start: 03-02-2025 End: 03-02-2025 Patient encounter procedure Jolynn MULLINS -[facility] Work Phone: Start: 03-02-2025 End: 03-02-[address] Lexus Rivera DO Work Phone: [facility] Work Phone: Start: 02-27-2025 End: 02-27-[address] DAVIS ORDONEZ MD Facility:[facility] Start: 02-27-2025 End: 02-27-[address] DAVIS ORDONEZ MD [facility] Start: 02-24-2025 End: 02-24-2025 ambulatory LEXUS RIVERA DO [facility] Start: 02-24-2025 End: 02-24-[address] DAVIS ORDONEZ MD [facility] Start: 02-20-2025 End: 02-20-2025 ambulatory LEXUS RIVERA DO [facility] Start: 02-20-2025 End: 02-20-[address] DAVIS ORDONEZ MD [facility] Start: 02-18-2025 Encounter for preprocedural laboratory examination [facility] Start: 02-15-2025 End: 02-15-[address] Riki Lizama DO -[facility] Work Phone: Start: 02-15-2025 End: 02-15-[address] Lexus Rivera DO Work Phone: [facility] Work Phone: Start: 02-13-2025 End: 02-13-[address] Riki Lizama DO -Cat Scan [facility] Work Phone: Start: 02-13-2025 End: 02-13-[address] Zhang Quick MD -Laboratory Work Phone: Start: 02-13-[address] Zhang Quick MD -Laboratory Work Phone: Start: 02-13-2025 End: 02-13-[address] Lexus Rivera DO Work Phone: [facility] Work Phone: Start: 02-13-2025 End: 02-13-2025 ambulatory Riki Dl Facility:[facility] Start: 02-01-2025 ambulatory Davis Ordonez Facility :[facility] Start: 12-28-[address] Riki Pond on DO -Speech Therapy Work Phone: Start: 12-27-2024 End: 12-31-2024 ambulatory LEXUS RIVERA DO Facility:[facility] Start: 11-25-2024 End: 11-25-2024 Patient encounter procedure MARCOS Abel [facility] Work Phone: Start: 11-25-2024 End: 11-25-2024 ambulatory Alexus Abel Facility:[facility] Start: 11-15-2024 End: 11-15-[address] Lexus Rivera DO Work Phone: [facility] Work Phone: Start: 11-15-2024 End: 11-15-[address] Lexus Rivera DO -Laboratory Work Phone: Start: 11-14-[address] Riki Pond on DO -Speech Therapy Work Phone: Start: 11-14-2024 End: 11-14-[address] Riki Lizama DO -[facility] Work Phone: Start: 11-14-2024 End: 11-15-2024 ambulatory Lexus Rivera Facility:[facility] Start: 11-04-2024 Non-patient / Non-visit Dr. Terence rodriguez DO -[facility] Start: 11-04-2024 End: 11-04-2024 Admission to same day surgery center Dr. Terence Alba DO -Endoscopy Work Phone: Start: 11-04-2024 End: 11-04-[address] [facility] Start: 11-03-2024 End: 11-11-[address] Zhang Quick MD -Laboratory Work Phone: Start: 11-03-2024 End: 11-11-2024 ambulatory Lexus Rivera Facility:[facility] Start: 10-31-2024 ambulatory Lexus Nicole Facility: [facility] Start: 10-31-2024 Non-patient / Non-visit Dr. Terence Mueller own -[facility] Start: 10-28-2024 End: 10-28-[address] Terence Alba DO -Pulmonary Services/Neurology Work Phone: Start: 10-28-2024 End: 10-28-[address] [facility] Start: 10-24-2024 ambulatory Lexus Nicole Facility: [facility] Start: 10-24-2024 Non-patient / Non-visit Dr. Terence Mueller own -[facility] Start: 10-21-2024 End: 10-21-[address] Riki Lizama DO -[facility] Work Phone: Start: 10-21-2024 End: 10-21-2024 ambulatory Riki Lizama Facility:[facility] Start: 10-20-2024 End: 10-20-[address] Terence Alba DO -Pulmonary Services/Neurology Work Phone: Start: 10-20-2024 End: 10-20-2024 ambulatory [facility] Facility:[facility] Start: 10-13-2024 End: 10-13-[address] Terence Alba DO -[facility] Work Phone: Start: 10-13-2024 End: 10-13-2024 ambulatory Lexus Rivera Facility:[facility] Start: 10-07-2024 End: 10-07-[address] Riki Lizama DO [facility] Work Phone: Start: 10-07-2024 End: 10-07-2024 ambulatory Lexus Rivera Facility:[facility] Start: 10-04-[address] Riki Pond on [facility] Start: 10-04-2024 End: 10-04-[address] Zhang Quick MD -Laboratory Work Phone: Start: 10-04-2024 End: 10-04-[address] [facility] Start: 08-29-2024 End: 08-29-2024 Patient encounter procedure Payal STOCKTON -[facility] Work Phone: Start: 08-29-2024 End: 08-29-2024 ambulatory Lexus Rivera Facility:[facility] Start: 08-12-2024 End: 08-13-[address] Zhang Quick MD -Laboratory Work Phone: Start: 08-12-2024 End: 08-13-2024 ambulatory Lexus Halosvaldo Facility:[facility] Start: 08-05-2024 ambulatory Lexus Halosvaldo Facility: [facility] Start: 07-25-2024 ambulatory Lexus Halko Facility: [facility] Start: 07-13-2024 End: 07-13-2024 ambulatory Lexus Halko Facility:[facility] Start: 07-07-2024 End: 07-07-2024 ambulatory Lexus Halko Facility:[facility] Start: 07-04-2024 End: 07-14-2024 ambulatory Lexus Halko Facility:[facility] Start: 06-30-2024 End: 06-30-2024 ambulatory Lexus Halko Facility:[facility] Start: 06-03-2024 End: 06-03-2024 ambulatory Lexus Halko Facility:[facility] Start: 05-30-2024 End: 05-30-2024 ambulatory LEXUS RIVERA DO Facility:[facility] Start: 05-30-2024 End: 05-30-2024 Patient encounter procedure LEXUS RIVERA DO [facility] Start: 05-25-2024 End: 05-25-2024 ambulatory Lexus Rivera Facility:[facility] Start: 01-18-2024 End: 01-18-2024 Admission to same day surgery center Dr. Lexus Rivera Work Phone: [facility] Start: 01-18-2024 End: 01-18-[address] Lexus Rivera Work Phone: [facility] Work Phone: Start: 01-11-2024 End: 01-11-2024 Non-patient / Non-visit Dr. Lexus Rivera Work Phone: [facility] Work Phone: Start: 01-07-2024 End: 01-07-[address] Lexus Rivera Work Phone: [facility] Work Phone: Start: 01-07-2024 End: 01-12-[address] Lexus Rivera Work Phone: [facility] Work Phone: Start: 01-07-2024 End: 01-12-[address] [facility] Start: 01-07-[address] Ricardo [facility] Start: 12-01-2023 End: 12-06-2023 ambulatory LEXUS RIVERA DO Facility:[facility] Start: 12-01-2023 End: 12-05-2023 Outreach Lab LEXUS RIVERA DO [facility] Start: 11-25-2023 End: 12-13-[address] Lexus Rivera Work Phone: [facility] Work Phone: Start: 11-25-2023 End: 12-13-[address] [facility] Start: 11-16-2023 End: 11-16-[address] Lexus Rivera Work Phone: [facility] Work Phone: Start: 11-16-2023 End: 11-16-[address] Lexus Rivera Work Phone: [facility]-Laboratory Work Phone: Start: 11-04-2023 End: 11-12-[address] Lexus Rivera Work Phone: [facility] Work Phone: Start: 11-04-2023 End: 11-12-[address] [facility]us [facility] Start: 11-03-2023 End: 11-08-2023 ambulatory LEXUS RIVERA DO Facility:[facility] Start: 10-14-2023 End: 10-14-[address] Lexus Rivera [facility] Start: 10-06-2023 End: 10-06-[address] Lexus Rivera Work Phone: [facility] Work Phone: Start: 09-20-2023 End: 09-20-2023 Emergency department patient visit [facility]-Emergency Department Work Phone: Start: 07-06-2023 End: 07-06-2023 ambulatory [facility] Work Phone: Start: 07-06-2023 End: 07-06-2023 [facility] Start: 06-23-2023 End: 06-28-2023 ambulatory LEXUS RIVERA DO Facility:[facility] Start: 06-23-2023 End: 06-28-2023 ambulatory LEXUS RIVERA DO Facility:[facility] Start: 06-23-2023 End: 06-27-2023 Outreach Lab LEXUS RIVERA DO [facility] Start: 06-23-2023 End: 06-27-2023 Outreach Lab LEXUS RIVERA DO [facility] Start: 04-20-2023 End: 04-20-[address] Lexus Rivera Work Phone: [facility] Work Phone: Start: 04-20-2023 End: 04-20-[address] Lexus Rivera Work Phone: [facility]-Laboratory Work Phone: Start: 04-10-2023 End: 04-10-[address] Lexus Rivera Work Phone: [facility] Work Phone: Start: 04-10-2023 End: 04-10-[address] Lexus Rivera Work Phone: [facility]-Laboratory Work Phone: Start: 04-02-2023 End: 04-13-[address] Lexus Rivera Work Phone: [facility]-Laboratory Work Phone: Start: 02-03-2023 End: 02-03-[address] Lexus Rivera Work Phone: [facility] Work Phone: Start: 01-15-2023 End: 01-15-[address] Lexus Rivera Work Phone: [facility] Work Phone: Start: 01-15-2023 End: 01-15-[address] Lexus Rivera Work Phone: [facility]-Physical Therapy Start: 01-06-[address] Ricardo Rivera Work Phone: [facility]-Physical Therapy Start: 01-01-2023 End: 01-11-[address] Lexus Rivera Work Phone: [facility] Work Phone: Start: 01-01-2023 End: 01-11-[address] Lexus Rivera Work Phone: [facility]-Laboratory Start: 12-25-[address] Ricardo Rivera Work Phone: [facility]-Physical Therapy Start: 12-18-[address] [facility] Start: 12-18-2022 End: 12-18-[address] Lexus Rivera Work Phone: [facility] Work Phone: Start: 12-18-2022 End: 12-18-[address] Lexus Rivera Work Phone: [facility]Cardiov[facility]cul[facility] Services Start: 12-12-[address] Ricardo Rivera Work Phone: [facility]-Physical Therapy Start: 11-26-2022 End: 12-12-[address] Lexus Rivera Work Phone: [facility] Work Phone: Start: 11-26-2022 End: 12-12-[address] [facility] Start: 10-13-2022 End: 10-13-[address] Lexus Rivera Work Phone: [facility] Start: 10-09-2022 End: 10-09-[address] Lexus Rivera Work Phone: [facility] Work Phone: Start: 10-09-2022 End: 10-09-[address] Lexus Rivera Work Phone: [facility]-Laboratory Start: 09-15-2022 End: 09-15-2022 Emergency department patient visit Dr. Lexus Rivera Work Phone: [facility]-Emergency Department Start: 07-21-2022 Non-patient / Non-visit Dr. Rahel Rivera [facility] Start: 07-21-2022 End: 07-21-[address] Lexus Rivera Work Phone: [facility] Work Phone: Start: 07-21-2022 End: 07-21-[address] Lexus Rivera Work Phone: [facility]Cardiov[facility]cula [facility] Services Start: 07-09-2022 End: 07-09-[address] Lexus Rivera Work Phone: [facility] Work Phone: Start: 07-09-2022 End: 07-09-[address] Lexus Rivera Work Phone: [facility]-Laboratory Start: 06-25-2022 End: 06-25-[address] Lexus Rivera Work Phone: [facility] Work Phone: Start: 06-25-2022 End: 06-25-[address] [facility] Start: 04-11-2022 End: 04-13-[address] [facility]us [facility] Start: 02-26-2022 End: 02-26-[address] Lex[facility] Start: 02-12-2022 End: 02-12-[address] Lexus Rivera [facility] Start: 01-24-2022 End: 01-24-[address] [facility] Start: 01-06-2022 End: 01-06-[address] Lexus Rivera Work Phone: [facility] Start: 01-03-2022 End: 01-03-[address] Lexus Rivera Work Phone: [facility] Start: 12-26-2021 End: 12-26-[address] Lexus Rivera [facility] Start: 12-26-2021 [facility] Start: 12-26-2021 End: 12-26-2021 Patient encounter procedure [facility] Start: 12-11-2021 End: 12-12-2021 [facility] Start: 12-04-2021 End: 12-04-[address] Lexus Rivera [facility] Start: 12-04-2021 Registered Recurring [facility] Start: 10-21-2021 End: 10-21-2021 [facility] Start: 09-21-2018 Evaluation and manag ement of inpatient Derrick Nelson Facility:[facility] Procedures Date Procedure Procedure Detail Performing Clinician Start: 05-05-[address] Lexus Rivera DO Work Phone: Comment on above: Test Ordered: [id number] Cystatin CCystatin C 2.17 [H ] mg/L CB Reference Range: 0.78-1.15Performed at: - [facility] [id number] Director: Davis Castillo PhD, Phone: [phone] Start: 05-05-2025 Serum inorganic phosphate measurement Dr. Lexus Rviera DO Work Phone: Start: 04-20-2025 Videoswalmike Rivera DO Work Phone: Start: 03-22-2025 Videoswalmike Rivera DO Work Phone: Start: 02-13-[address] Lexus Rivera DO Work Phone: Start: 02-13-2025 CT of soft tissues of neck with contrast Dr. Lexus Rivera DO Work Phone: Start: 02-13-2025 CT of thorax with contrast Dr. Lexus Rivera DO Work Phone: Start: 11-15-2024 Serum inorganic phosphate measurement Dr. Lexus Rivera DO Work Phone: Start: 11-15-2024 Urine microalbumin/creatinine ratio measurement Dr. Lexus Rivera DO Work Phone: Start: 11-15-2024 Vitamin D, 25-hydroxy measurement Dr. Rahel Rivera DO Work Phone: Comment on above: Vitamin D StatusDeficiency: <20 ng/mL (5 0nmol/L)Insufficiency: 20-30 ng/mL (50-75 nmol/L)Sufficiency: 30-100 ng/mL (75-250 nmol/L)Toxicity: >100 ng/mL (>250 nmol/L) Start: 11-03-2024 Assay of phosphorus inorganic Dr. Diego Rivera DO Work Phone: Start: 11-03-2024 Measurement of renal function Dr. Diego Rivera DO Work Phone: Comment on above: GFR Calc Start: 11-03-[address] Zhao Rivera DO Work Phone: Start: 11-03-2024 Vitamin D, 25-hydroxy measurement Dr. Rahel Rivera DO Work Phone: Comment on above: Vitamin D 25(OH) Status Range Deficiency <20 ng/mL (50nmol/L) Insufficiency 20 - 30 ng/mL (50 - 75 nmol/L) Sufficiency 30 - 100 ng/mL (75 - 250 nmol/L) Toxicity >100 ng/mL (>250 nmol/L) Start: 10-21-[address] Lexus Rivera DO Work Phone: Start: 10-04-2024 PET study for localization of tumor Dr. Lexus Rivera DO Work Phone: Start: 06-21-2024 PET study for localization of tumor Dr. Lexus Rivera DO Work Phone: Start: 03-14-2024 Plain chest X-ray Dr. Lexus Rivera DO Work Phone: Start: 02-02-2024 Positron emission tomography with computed tomography Dr. Lexus Rivera DO Work Phone: Start: 01-18-[address] Lexus Rivera Work Phone: Start: 01-07-2024 CT of soft tissues of neck with contrast Dr. Lexus Rivera Work Phone: Start: 11-26-2022 X-ray of lumbosacral spine Dr. Lexus Rivera Work Phone: Start: 09-15-2022 Diagnostic radiography of abdomen Dr. Rahel Rivera Work Phone: Start: 07-21-2022 Cardiovascular stress test using pharmacologic stress agent Dr. Lexus Rivera Work Phone: Start: 12-05-2016 End: 12-05-2016 CLIP AND HANGER ATTACHER Payal Virgen PA-C Work Phone: Start: 12-05-2016 End: 12-05-2016 Follow Up Appt 6 months Payal Virgen PA-C Work Phone: Start: 11-12-2016 Vascular disease (disorder) LEXUS Galvez Comment on above: bilateral legs Start: 06-05-2016 End: 06-05-2016 Follow Up Appt 6 months Zhang Quick MD Start: 06-05-2016 End: 06-05-2016 MMM Zhang Quick MD Start: 01-25-2016 Heart structure (body structure) LEXUS RIVERA DO Comment on above: one stent Start: 12-28-2015 Colonoscopy LEXUS RIVERA DO Comment on above: normal, repeat 10 years Start: 05-09-2015 End: 11-28-2016 *Hepatic Function Panel Zhang Quick MD Start: 05-09-2015 End: 11-28-2016 Lipid panel [AGGREGATE] Zhang Quick MD Start: 03-28-2015 End: 03-28-2015 *Hepatic Function Panel Zhang Quick MD Start: 03-28-2015 End: 03-29-2015 Documentation of current medications Zhang Quick MD Start: 03-28-2015 End: 11-28-2016 Echocardiography Zhang Quick MD Start: 03-28-2015 End: 03-28-2015 Electrocardiogram, complete Zhang Gaston i, MD Start: 03-28-2015 End: 03-28-2015 Lipid panel [AGGREGATE] Zhang Quick MD Start: 03-28-2015 End: 11-28-2016 Nuclear stress test -Lexiscan Zhang Pacheco MD Start: 03-28-2015 End: 03-29-2015 Pedal pulse taking Zhang Quick MD Start: 02-19-2011 Circumcision LEXUS RIVERA DO Start: 03-16-2002 Excision of breast tissue LEXUS RIVERA DO Comment on above: left, subtotal Cholecystectomy DR DAVIS ORDONEZ MD Esophagogastroduodenoscopy Quincy RIVERA DO Excision of mass LEXUS CENTENO DO Comment on above: bilateral History of cholecystectomy S/P cholecyste ctomy LEXUS RIVERA DO History of radiation therapy Hx of radiation therapy Dr. Lexus Rivera DO Work Phone: Insertion of feeding tube into duodenum DR DAVIS ORDONEZ MD Plan of Treatment Date Care Activity Detail Author Start: 11-04-2024 [facility] ebus guided sampl 3/> node station/strux BRONCH EBUS SAMPLNG 3/> NODE [facility] Start: 11-04-2024 Patient discharge [facility] Start: 10-07-2024 Patient referral [facility] Work Phone: Start: 01-18-2024 Ambulation without limitation [facility] Start: 01-18-2024 Elevation of head of bed [facility] Start: 01-18-2024 Patient discharge [facility] Start: 01-18-2024 Medical regimen orders management [facility] Start: 01-18-2024 Medication education [facility] Start: 01-18-2024 Procedure discontinued [facility] Start: 01-18-2024 Taking patient vital signs [facility] Start: 01-18-2024 Vital signs measurements [facility] Start: 09-20-2023 [facility] Start: 06-04-2017 End: 06-04-2017 Appointment Appointment [facility] Work Phone: Start: 12-05-2016 End: 12-05-2016 CLIP AND HANGER ATTACHER CLIP AND HANGER ATTACHER [facility] Work Phone: Start: 12-05-2016 End: 12-05-[address] [facility] Nutrition Services, [address] [place] [address], [id number] [facility] Work Phone: Start: 12-05-2016 End: 12-05-2016 Follow Up Appt 6 months Follow Up Appt 6 months [facility] Work Phone: Start: 06-05-2016 End: 06-05-2016 *Hepatic Function Panel *Hepatic Function Panel [facility] Work Phone: Start: 06-05-2016 End: 06-05-2016 Follow Up Appt 6 months Follow Up Appt 6 months [facility] Work Phone: Start: 06-05-2016 End: 06-05-2016 Lipid panel [AGGREGATE] *Lipid Profile CC PCP [facility] Work Phone: Start: 06-05-2016 End: 06-05-2016 MMM MMM [facility] Work Phone: Start: 12-20-2015 End: 12-20-2015 Diagnostic colonoscopy Colonoscopy [facility] Work Phone: Start: 05-09-2015 End: 11-28-2016 *Hepatic Function Panel *Hepatic Function Panel [facility] Work Phone: Start: 05-09-2015 End: 11-28-2016 Lipid panel [AGGREGATE] *Lipid Profile CC PCP [facility] Work Phone: Start: 03-28-2015 End: 03-28-2015 *Hepatic Function Panel *Hepatic Function Panel [facility] Work Phone: Start: 03-28-2015 End: 03-28-2015 Echocardiography Echocardiogram (complete) [facility] Work Phone: Start: 03-28-2015 End: 03-28-2015 Electrocardiogram, complete EKG (In office) [facility] Work Phone: Start: 03-28-2015 End: 03-28-2015 Lipid panel [AGGREGATE] *Lipid Profile CC PCP [facility] Work Phone: Start: 03-28-2015 End: 03-28-2015 Nuclear stress test -Lexiscan Nuclear stress test -Lexiscan [facility] Work Phone: CT Chest W contrast IV [facility] CT Chest W contrast IV [facility] Electrocardiographic procedure [facility] NM Heart Views W str ess and W radionuclide IV [facility] Work Phone: Patient Education [facility] Work Phone: Patient referral [facility] Work Phone: [facility] Work Phone: Immunizations Immunization Date Immunization Notes Care Provider Fa [facility] 09-11-2021 SARS-CoV-2 (COVID-19 ) mRNA-3186 vaccine LEXUS RIVERA DO [facility] 12-12-2020 SARS-CoV-2 (COVID-19 ) mRNA-1273 vaccine LEXUS RIVERA DO [facility] 11-15-2020 SARS-CoV-2 (COVID-19 ) mRNA-1273 vaccine LEXUS RIVERA DO [facility] Comment on above: Result Comment: 2020: [id number] Payers Date Payer Category Payer Private Health Insurance afa [id number] 2024 Unknown [id number] 2024 Self-pay [id number] 2023 Unknown [id number] 2021 Medicare [id number] 2021 Unknown [id number] Private Health Insurance [id number] Medicare [id number] 2008 Medicare [id number] 1948 Unknown [id number] 2.16.8 40.1.845278.3.579.2.627 1948 Unknown [id number] 2.16.8 40.1.058812.3.579.2.627 1948 Unknown [id number] 2.16.8 40.1.313854.3.579.2.627 1948 Unknown [id number] 2.16.8 40.1.488485.3.579.2.627 1948 Unknown [id number] 2.16. 840.1.797862.3.579.2.627 1948 Unknown [id number] 2.16. 840.1.650333.3.579.2.627 1948 Unknown [id number] 2.16. 840.1.988129.3.579.2.627 1948 Unknown [id number] 2.16. 840.1.199478.3.579.2.627 1948 Unknown [id number] 2.16. 840.1.787971.3.579.2.627 1948 Unknown [id number] 2.16.8 40.1.171318.3.579.2.627 1948 Unknown [id number] 2.16.8 40.1.647919.3.579.2.627 Unknown [id number] 2.16.8 40.1.667352.3.579.2.273 Unknown [id number] 2.16.8 40.1.571986.3.579.2.462 Unknown [id number] 2.16.8 40.1.478621.3.579.2.462 Unknown [id number] 2.16.8 40.1.599172.3.579.2.462 Unknown [id number] 2.16.8 40.1.757643.3.579.2.462 Unknown [id number] 2.16.8 40.1.932073.3.579.2.462 Unknown [id number] 2.16.8 40.1.020049.3.579.2.462 Unknown [id number] 2.16.8 40.1.904012.3.579.2.462 Unknown [id number] 2.16.8 40.1.587487.3.579.2.462 Unknown [id number] 2.16.8 40.1.317640.3.579.2.462 Unknown [id number] 2.16.8 40.1.340504.3.579.2.462 Unknown [id number] 2.16.8 40.1.650612.3.579.2.462 Unknown [id number] 2.16.8 40.1.860062.3.579.2.462 Unknown [id number] 2.16.8 40.1.253714.3.579.2.462 Unknown [id number] 2.16.8 40.1.322922.3.579.2.462 Unknown [id number] 2.16.8 40.1.202785.3.579.2.462 Unknown [id number] 2.16.8 40.1.604571.3.579.2.462 Unknown [id number] 2.16.8 40.1.438724.3.579.2.462 Unknown [id number] 2.16.8 40.1.317332.3.579.2.462 Unknown [id number] 2.16.8 40.1.082296.3.579.2.462 Unknown [id number] 2.16.8 40.1.697543.3.579.2.462 Unknown [id number] 2.16.8 40.1.319739.3.579.2.462 Unknown [id number] 2.16.8 40.1.755247.3.579.2.462 Unknown [id number] 2.16.8 40.1.088009.3.579.2.462 Unknown [id number] 2.16.8 40.1.100731.3.579.2.462 Unknown [id number] 2.16.8 40.1.191231.3.579.2.462 Unknown [id number] 2.16.8 40.1.087132.3.579.2.462 Unknown [id number] 2.16.8 40.1.085911.3.579.2.462 Unknown [id number] 2.16.8 40.1.377361.3.579.2.462 Unknown [id number] 2.16.8 40.1.565561.3.579.2.462 Unknown [id number] 2.16.8 40.1.723342.3.579.2.462 Unknown [id number] 2.16.8 40.1.047580.3.579.2.462 Unknown [id number] 2.16.8 40.1.135076.3.579.2.462 Unknown [id number] 2.16.8 40.1.721525.3.579.2.462 Unknown [id number] 2.16.8 40.1.220104.3.579.2.462 Unknown [id number] 2.16.8 40.1.393951.3.579.2.462 Unknown [id number] 2.16.8 40.1.395589.3.579.2.462 Unknown [id number] 2.16.8 40.1.049475.3.579.2.462 Unknown [id number] 2.16.8 40.1.606455.3.579.2.462 Unknown [id number] 2.16.8 40.1.024881.3.579.2.462 Social History Date Type Detail Facility Start: 02-22-2021 End: 01-08-2024 Tobacco smoking status NJIS Unknown if ever smoked [facility] Start: 10-13-2020 Heavy [facility] Start: 10-13-2020 Marijuana [facility] Start: 10-13-2020 With Family [facility] Start: 03-22-2020 - [facility] Start: 1950 Sex Assigned At Male W [facility] Start: 04-13-2019 End: 04-12-2025 Tobacco smoking status Ex-smoker (finding) [facility] Start: 03-09-2019 End: 11-26-2024 Sex Male (finding) [facility] Sexual Orientation Thao [employer] [facility] Medical Equipment Procedure Code Equipment Code Equipment Origin al Text Equipment Identifier Dates Total cholecystectomy with exploration of common bile duct DEB 3GRM HEMOSTAT ABS FDA Start: 10-16-2020 Total cholecystectomy with exploration of common bile duct CLIP,SALEEM DUMONT FDA Start: 10-16-2020 Total cholecystectomy with exploration of common bile duct CLIP,SALEEM DUMONT FDA Start: 10-16-2020 Total cholecystectomy with exploration of common bile duct DEB 3GRM HEMOSTAT ABS FDA Start: 10-16-2020 Total cholecystectomy with exploration of common bile duct CLIP,SALEEM DUMONT FDA Start: 10-16-2020 Total cholecystectomy with exploration of common bile duct CLIP,SALEEM DUMONT FDA Start: 10-16-2020 Total cholecystectomy with exploration of common bile duct DEB 3GRM HEMOSTAT ABS FDA Start: 10-16-2020 Total cholecystectomy with exploration of common bile duct CLIP,SALEEM DUMONT FDA Start: 10-16-2020 Total cholecystectomy with exploration of common bile duct CLIP,SALEEM DUMONT FDA Start: 10-16-2020 Total cholecystectomy with exploration of common bile duct DEB 3GRM HEMOSTAT ABS FDA Start: 10-16-2020 Total cholecystectomy with exploration of common bile duct CLIP,SALEEM DUMONT FDA Start: 10-16-2020 Total cholecystectomy with exploration of common bile duct CLIP,SALEEM DUMONT FDA Start: 10-16-2020 Total cholecystectomy with exploration of common bile duct DEB 3GRM HEMOSTAT ABS FDA Start: 10-16-2020 Total cholecystectomy with exploration of common bile duct CLIP,SALEEM DUMONT FDA Start: 10-16-2020 Total cholecystectomy with exploration of common bile duct CLIP,SALEEM DUMONT FDA Start: 10-16-2020 Total cholecystectomy with exploration of common bile duct DEB 3GRM HEMOSTAT ABS FDA Start: 10-16-2020 Total cholecystectomy with exploration of common bile duct CLIP,SALEEM DUMONT FDA Start: 10-16-2020 Total cholecystectomy with exploration of common bile duct CLIP,SALEEM DUMONT FDA Start: 10-16-2020 Total cholecystectomy with exploration of common bile duct DEB 3GRM HEMOSTAT ABS FDA Start: 10-16-2020 Total cholecystectomy with exploration of common bile duct CLIP,SALEEM DUMONT FDA Start: 10-16-2020 Total cholecystectomy with exploration of common bile duct CLIP,SALEEM DUMONT FDA Start: 10-16-2020 Total cholecystectomy with exploration of common bile duct DEB 3GRM HEMOSTAT ABS FDA Start: 10-16-2020 Total cholecystectomy with exploration of common bile duct CLIP,SALEEM DUMONT FDA Start: 10-16-2020 Total cholecystectomy with exploration of common bile duct CLIP,SALEEM DUMONT FDA Start: 10-16-2020 Total cholecystectomy with exploration of common bile duct DEB 3GRM HEMOSTAT ABS FDA Start: 10-16-2020 Total cholecystectomy with exploration of common bile duct CLIP,SALEEM DUMONT FDA Start: 10-16-2020 Total cholecystectomy with exploration of common bile duct CLIP,SALEEM DUMONT FDA Start: 10-16-2020 Total cholecystectomy with exploration of common bile duct DEB 3GRM HEMOSTAT ABS FDA Start: 10-16-2020 Total cholecystectomy with exploration of common bile duct CLIP,SALEEM DUMONT FDA Start: 10-16-2020 Total cholecystectomy with exploration of common bile duct CLIP,SALEEM DUMONT FDA Start: 10-16-2020 Total cholecystectomy with exploration of common bile duct DEB 3GRM HEMOSTAT ABS FDA Start: 10-16-2020 Total cholecystectomy with exploration of common bile duct CLIP,SALEEM DUMONT FDA Start: 10-16-2020 Total cholecystectomy with exploration of common bile duct CLIP,SALEEM DUMONT FDA Start: 10-16-2020 Total cholecystectomy with exploration of common bile duct DEB 3GRM HEMOSTAT ABS FDA Start: 10-16-2020 Total cholecystectomy with exploration of common bile duct CLIP,SALEEM DUMONT FDA Start: 10-16-2020 Total cholecystectomy with exploration of common bile duct CLIP,SALEEM UDMONT FDA Start: 10-16-2020 Total cholecystectomy with exploration of common bile duct DEB 3GRM HEMOSTAT ABS FDA Start: 10-16-2020 Total cholecystectomy with exploration of common bile duct CLIP,SALEEM DUMONT FDA Start: 10-16-2020 Total cholecystectomy with exploration of common bile duct CLIP,SALEEM DUMONT FDA Start: 10-16-2020 Total cholecystectomy with exploration of common bile duct DEB 3GRM HEMOSTAT ABS FDA Start: 10-16-2020 Total cholecystectomy with exploration of common bile duct CLIP,SALEEM DUMONT FDA Start: 10-16-2020 Total cholecystectomy with exploration of common bile duct CLIP,SALEEM DUMONT FDA Start: 10-16-2020 Total cholecystectomy with exploration of common bile duct DEB 3GRM HEMOSTAT ABS FDA Start: 10-16-2020 Total cholecystectomy with exploration of common bile duct CLIP,SALEEM DUMONT FDA Start: 10-16-2020 Total cholecystectomy with exploration of common bile duct CLIP,SALEEM DUMONT FDA Start: 10-16-2020 Total cholecystectomy with exploration of common bile duct DEB 3GRM HEMOSTAT ABS FDA Start: 10-16-2020 Total cholecystectomy with exploration of common bile duct CLIP,SALEEM DUMONT FDA Start: 10-16-2020 Total cholecystectomy with exploration of common bile duct CLIP,SALEEM DUMONT FDA Start: 10-16-2020 Total cholecystectomy with exploration of common bile duct DEB 3GRM HEMOSTAT ABS FDA Start: 10-16-2020 Total cholecystectomy with exploration of common bile duct CLIP,SALEEM DUMONT FDA Start: 10-16-2020 Total cholecystectomy with exploration of common bile duct CLIP,SALEEM DUMONT FDA Start: 10-16-2020 Total cholecystectomy with exploration of common bile duct DEB 3GRM HEMOSTAT ABS FDA Start: 10-16-2020 Total cholecystectomy with exploration of common bile duct CLIP,SALEEM DUMONT FDA Start: 10-16-2020 Total cholecystectomy with exploration of common bile duct CLIP,SALEEM DUMONT FDA Start: 10-16-2020 Total cholecystectomy with exploration of common bile duct DEB 3GRM HEMOSTAT ABS FDA Start: 10-16-2020 Total cholecystectomy with exploration of common bile duct CLIP,SALEEM DUMONT FDA Start: 10-16-2020 Total cholecystectomy with exploration of common bile duct CLIP,SALEEM DUMONT FDA Start: 10-16-2020 Total cholecystectomy with exploration of common bile duct DEB 3GRM HEMOSTAT ABS FDA Start: 10-16-2020 Total cholecystectomy with exploration of common bile duct CLIP,SALEEM DUMONT FDA Start: 10-16-2020 Total cholecystectomy with exploration of common bile duct CLIP,SALEEM DUMONT FDA Start: 10-16-2020 Total cholecystectomy with exploration of common bile duct DEB 3GRM HEMOSTAT ABS FDA Start: 10-16-2020 Total cholecystectomy with exploration of common bile duct CLIP,SALEEM DUMONT FDA Start: 10-16-2020 Total cholecystectomy with exploration of common bile duct CLIP,HEMASYA DUMONT FDA Start: 10-16-2020 Total cholecystectomy with exploration of common bile duct DEB 3GRM HEMOSTAT ABS FDA Start: 10-16-2020 Total cholecystectomy with exploration of common bile duct CLIP,SALEEM DUMONT FDA Start: 10-16-2020 Total cholecystectomy with exploration of common bile duct CLIP,SALEEM DUMONT FDA Start: 10-16-2020 Total cholecystectomy with exploration of common bile duct DEB 3GRM HEMOSTAT ABS FDA Start: 10-16-2020 Total cholecystectomy with exploration of common bile duct CLIP,SALEEM DUMONT FDA Start: 10-16-2020 Total cholecystectomy with exploration of common bile duct CLIP,SALEEM DUMONT FDA Start: 10-16-2020 Total cholecystectomy with exploration of common bile duct DEB 3GRM HEMOSTAT ABS FDA Start: 10-16-2020 Total cholecystectomy with exploration of common bile duct CLIP,SALEEM DUMONT FDA Start: 10-16-2020 Total cholecystectomy with exploration of common bile duct CLIP,SALEEM DUMONT FDA Start: 10-16-2020 Total cholecystectomy with exploration of common bile duct DEB 3GRM HEMOSTAT ABS FDA Start: 10-16-2020 Total cholecystectomy with exploration of common bile duct CLIP,SALEEM DUMONT FDA Start: 10-16-2020 Total cholecystectomy with exploration of common bile duct CLIP,SALEEM DUMONT FDA Start: 10-16-2020 Total cholecystectomy with exploration of common bile duct DEB 3GRM HEMOSTAT ABS FDA Start: 10-16-2020 Total cholecystectomy with exploration of common bile duct CLIP,SALEEM DUMONT FDA Start: 10-16-2020 Total cholecystectomy with exploration of common bile duct CLIP,SALEEM DUMONT FDA Start: 10-16-2020 Total cholecystectomy with exploration of common bile duct DEB 3GRM HEMOSTAT ABS FDA Start: 10-16-2020 Total cholecystectomy with exploration of common bile duct CLIP,SALEEM DUMONT FDA Start: 10-16-2020 Total cholecystectomy with exploration of common bile duct CLIP,SALEEM DUMONT FDA Start: 10-16-2020 Total cholecystectomy with exploration of common bile duct DEB 3GRM HEMOSTAT ABS FDA Start: 10-16-2020 Total cholecystectomy with exploration of common bile duct CLIP,SALEEM DUMONT FDA Start: 10-16-2020 Total cholecystectomy with exploration of common bile duct CLIP,SALEEM DUMONT FDA Start: 10-16-2020 Total cholecystectomy with exploration of common bile duct DEB 3GRM HEMOSTAT ABS FDA Start: 10-16-2020 Total cholecystectomy with exploration of common bile duct CLIP,SALEEM DUMONT FDA Start: 10-16-2020 Total cholecystectomy with exploration of common bile duct CLIP,SALEEM DUMONT FDA Start: 10-16-2020 Total cholecystectomy with exploration of common bile duct DEB 3GRM HEMOSTAT ABS FDA Start: 10-16-2020 Total cholecystectomy with exploration of common bile duct CLIP,SALEEM DUMONT FDA Start: 10-16-2020 Total cholecystectomy with exploration of common bile duct CLIP,SALEEM DUMONT FDA Start: 10-16-2020 Total cholecystectomy with exploration of common bile duct DEB 3GRM HEMOSTAT ABS FDA Start: 10-16-2020 Total cholecystectomy with exploration of common bile duct CLIP,SALEEM DUMONT FDA Start: 10-16-2020 Total cholecystectomy with exploration of common bile duct CLIP,SALEEM DUMONT FDA Start: 10-16-2020 Total cholecystectomy with exploration of common bile duct DEB 3GRM HEMOSTAT ABS FDA Start: 10-16-2020 Total cholecystectomy with exploration of common bile duct CLIP,SALEEM DUMONT FDA Start: 10-16-2020 Total cholecystectomy with exploration of common bile duct CLIP,SALEEM DUMONT FDA Start: 10-16-2020 Total cholecystectomy with exploration of common bile duct DEB 3GRM HEMOSTAT ABS FDA Start: 10-16-2020 Total cholecystectomy with exploration of common bile duct CLIP,SALEEM DUMONT FDA Start: 10-16-2020 Total cholecystectomy with exploration of common bile duct CLIP,SALEEM DUMONT FDA Start: 10-16-2020 Total cholecystectomy with exploration of common bile duct DEB 3GRM HEMOSTAT ABS FDA Start: 10-16-2020 Total cholecystectomy with exploration of common bile duct CLIP,HEMASYA DUMONT FDA Start: 10-16-2020 Total cholecystectomy with exploration of common bile duct CLIP,HEMOLOCK JOHN WECK FDA Start: 10-16-2020 Total cholecystectomy with exploration of common bile duct DEB 3GRM HEMOSTAT ABS FDA Start: 10-16-2020 Total cholecystectomy with exploration of common bile duct CLIP,HEMASYA DUMONT FDA Start: 10-16-2020 Total cholecystectomy with exploration of common bile duct CLIP,HEMASYA DUMONT FDA Start: 10-16-2020 EGD, with monitored anesthesia care Gastrostomy tube kit, medicated ()[id number] FDA Start: 02-25-2024 See Instructions , accucheck guide brand; test BGT BID for titration of medications; dispense #300 for 90 day supply; 3; dx E11.65, # 3 EA, 3 Refill(s), Pharmacy: [facility], 170.5, cm, 06/02/23 9:59:00 EDT, Height, 88.7, kg, 06/02/23 9:59:00 EDT, Dosing Weight Start: 06-19-2023 See Instructions , dispense #30 BD ultra fine short needles (4 mm, 32 G), use daily to inject insulin; no refills; dx E11.42, # 3 EA, 3 Refill(s), Pharmacy: [facility], 170.5, cm, 06/02/23 9:59:00 EDT, Height, 88.7, kg, 06/02/23 9:59:00 EDT, Dosing Weight Start: 06-19-2023 See Instructions , accucheck guide brand; test BGT BID for titration of medications; dispense #300 for 90 day supply; 3; dx E11.65, # 3 EA, 3 Refill(s), Pharmacy: [facility], 170.5, cm, 06/02/23 9:59:00 EDT, Height, 88.7, kg, 06/02/23 9:59:00 EDT, Dosing Weight Start: 06-19-2023 See Instructions , dispense #30 BD ultra fine short needles (4 mm, 32 G), use daily to inject insulin; no refills; dx E11.42, # 3 EA, 3 Refill(s), Pharmacy: [facility], 170.5, cm, 06/02/23 9:59:00 EDT, Height, 88.7, kg, 06/02/23 9:59:00 EDT, Dosing Weight Start: 06-19-2023 See Instructions , accucheck guide brand; test BGT BID for titration of medications; dispense #300 for 90 day supply; 3; dx E11.65, # 3 EA, 3 Refill(s), Pharmacy: [facility], 170.5, cm, 06/02/23 9:59:00 EDT, Height, 88.7, kg, 06/02/23 9:59:00 EDT, Dosing Weight Start: 06-19-2023 See Instructions , dispense #30 BD ultra fine short needles (4 mm, 32 G), use daily to inject insulin; no refills; dx E11.42, # 3 EA, 3 Refill(s), Pharmacy: [facility], 170.5, cm, 06/02/23 9:59:00 EDT, Height, 88.7, kg, 06/02/23 9:59:00 EDT, Dosing Weight Start: 06-19-2023 Goals Date Patient Goal Desired Activity /State Mental Status Date Assessment Result Facility 11-04-2024 Cognitive function Level Of Cons ciousness Sedated;Responds to painful stimuli [facility] Work Phone: 11-04-2024 Cognitive function Voice/Name [facility] Work Phone: 03-16-2024 Cognitive function Voice/Name [facility] Work Phone: 01-18-2024 Cognitive function Level Of Consciousness Sedated [facility] Work Phone: Clinical Notes 10-22-2020 to 04-20-2025 Note Date & Type Note Facility 04-20-2025 Procedure note [facility] 03-23-2025 Procedure note [facility] 03-06-2025 Evaluation + Plan note Extracted from: Title:Clinical Document Author:DAVIS ORDONEZ Date:03/06/25 [facility] ADMISSION HISTORY AN D PHYSICIAL CHIEF COMPLAINT: HISTORY OF PRESENT ILLNESS: REVIEW OF SYSTEMS: ACTIVE PROBLEMS: (85) Abnormal lung sounds (6897706541) Actinic keratosis (1637238368) Acute cholecystitis (640442111) Anemia (381150790) Anticoagulated on Coumadin (27853203) Atrial fibrillation (07313761) Biceps tendonitis on right (734015102) Blood loss anemia (4907331371) BMI 30.0-30.9,adult (388039854) BPH without urinary obstruction (9578846625) Chronic diastolic heart failure with preserved ejection fraction (2570887531) Chronic low back pain (288597405) Coronary atherosclerosis (6683528402) Cough (22219043) Diabetes mellitus with hyperglycemia (943638534) Diabetes mellitus with microalbuminuria (966367643) Diabetic nephropathy (3850979123) Diabetic peripheral neuropathy (8557027070) Diarrhea (691097973) Dry skin (43134840) Eustachian tube dysfunction (33237129) Exposure to COVID-19 virus (2933001059) Fatigue (052326966) Former smoker (19067824) GI bleed (491907543) Grief (481344662) Hair loss (295302452) History of lacunar cerebrovascular accident (CVA) (2514359221) Hospital discharge follow-up (6998586562) Hypercoagulable state due to atrial fibrillation (6501506825) Hypertension associated with diabetes (4749752152) 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 (329505163) Immunization declined (9242533074) Immunization refused (5474366210) Incisional hernia (024232456) Intermittent claudication (327400185) Leg edema (579404983) Lightheaded (1461012076) Low back pain (320429672) LVH (left ventricular hypertrophy) (98288875) LVH (left ventricular hypertrophy) due to hypertensive disease (1488090890) Marijuana use (7965540449) Medicare annual wellness visit, subsequent (576216251) Melena (1640192) Microalbuminuria (408612337) Need for hepatitis C screening test (649767483) Neoplasm of uncertain behavior (294052477) Obese (1372755347) Obstructive sleep apnea (271431461) Odynophagia (293481569) Osteoarthritis of lumbar spine (653226163) Osteoporosis screening (925549539) Prostate cancer screening (600300434) PVD (peripheral vascular disease) (3695594772) Right shoulder pain (95985157) S/P cholecystectomy (4437148194) S/P percutaneous endoscopic gastrostomy (PEG) tube placement (6636314394) Screening due (679583807) Screening for glaucoma (710631390) Seasonal affective disorder (695639034) Seborrheic keratoses (9206574951) Segmental and somatic dysfunction of cervical region (301502885) Segmental and somatic dysfunction of lower extremity (999599689) Segmental and somatic dysfunction of lumbar region (318196561) Segmental and somatic dysfunction of pelvic region (561867316) Segmental and somatic dysfunction of rib cage (602252319) Segmental and somatic dysfunction of sacral region (925446443) Segmental and somatic dysfunction of thoracic region (060928217) Segmental and somatic dysfunction of upper extremity (700051413) Skin lesion of face (6192155457) Skin mole (403726209) Skin tear of right lower leg without complication (9631700181) Somatic dysfunction of lower extremity (5133970050) 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) Stage 3b chronic kidney disease (CKD) (1905486644) Swelling of right foot (9942852871) Telangiectasia (070549803) Tendinitis of right infraspinatus tendon (682926856) Thrush (956365201) Tongue mass (4233527636) Transient cerebral ischemia (163829055) Type 2 diabetes mellitus with hyperlipidemia (116078817) Upper GI bleed (45696103) Ventricular premature complexes (478844685) Verruca vulgaris (66210707) MEDICATIONS: Active Inpt Meds: None Active PRN Meds: None One Time Meds: (Completed) lidocaine (Xylocaine 2% 5 mL syringe (ANES) (ANES)) IV Push, Once, Stop: 03/06/25 10:22:00 EDT (Completed) propofol (propofol (ANES)) IV Push, Once, Stop: 03/06/25 10:22:00 EDT Active IV Meds: Lactated Ringers Infusion 1,000 mL Start: 03/06/25 7:58:00 EDT, Rate: 20 mL/hr, 03/06/25 7:58:00 EDT ALLERGIES: (1) metFORMIN FAMILY HISTORY: SOCIAL HISTORY: PHYSICAL EXAM: VITALS: [id number](kg) 03/06 11:00----549879TB37/23 68.2 03/06 10:40----[id number] 03/06 10:33----949420HS 03/06 10:2736.1--3059781 2.0L/m 03/06 10:20--------100-- 24 Hr Tmax: 36.4 at 03/06 08:02 36 Hr Tmax: 36.4 at 03/06 08:02 Vital Signs are the last 5 in the past 48 hours. Weights display the last 5 within 7 days. Initial Wt: 03/06 68.2 kg 150 lb Current Wt: 03/06 68.2 kg 150 lb GENERAL: HEENT: CARDIOVASCULAR: RESPIRATORY: ABDOMEN: EXREMETIES: NEUROLOGICAL: PSYCHIATRIC: LABS: No 36hr Lab Data DIAGNOSTICS: IMPRESSION: PLAN: History and Physical Update I have examined the patient; reviewed the H&P and there are no changes to the H&P unless noted below. Extracted from: Title:Clinical Document Author:DAVIS ORDONEZ Date:03/06/25 [facility] ADMISSION HISTORY AN D PHYSICIAL CHIEF COMPLAINT: HISTORY OF PRESENT ILLNESS: REVIEW OF SYSTEMS: ACTIVE PROBLEMS: (85) Abnormal lung sounds (3500981490) Actinic keratosis (5665008223) Acute cholecystitis (900150998) Anemia (918484080) Anticoagulated on Coumadin (43458973) Atrial fibrillation (77920134) Biceps tendonitis on right (776219058) Blood loss anemia (3179599585) BMI 30.0-30.9,adult (130216219) BPH without urinary obstruction (6481433880) Chronic diastolic heart failure with preserved ejection fraction (0060733838) Chronic low back pain (797925410) Coronary atherosclerosis (8760975940) Cough (53406579) Diabetes mellitus with hyperglycemia (910500975) Diabetes mellitus with microalbuminuria (678240108) Diabetic nephropathy (6487312330) Diabetic peripheral neuropathy (8768129714) Diarrhea (909916849) Dry skin (59502257) Eustachian tube dysfunction (63156838) Exposure to COVID-19 virus (7619390131) Fatigue (278648895) Former smoker (96374375) GI bleed (105075385) Grief (314191656) Hair loss (529474964) History of lacunar cerebrovascular accident (CVA) (9983379290) Hospital discharge follow-up (8841830571) Hypercoagulable state due to atrial fibrillation (4057220155) Hypertension associated with diabetes (3722285681) 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 (092178614) Immunization declined (8964754286) Immunization refused (0272783820) Incisional hernia (609025243) Intermittent claudication (544149241) Leg edema (876185976) Lightheaded (4616965012) Low back pain (062969733) LVH (left ventricular hypertrophy) (17347919) LVH (left ventricular hypertrophy) due to hypertensive disease (9965036321) Marijuana use (5573974176) Medicare annual wellness visit, subsequent (319521857) Melena (2616718) Microalbuminuria (142729751) Need for hepatitis C screening test (379677127) Neoplasm of uncertain behavior (354051537) Obese (3527102998) Obstructive sleep apnea (793785946) Odynophagia (329961578) Osteoarthritis of lumbar spine (405484950) Osteoporosis screening (395178154) Prostate cancer screening (828147612) PVD (peripheral vascular disease) (5147016724) Right shoulder pain (65396952) S/P cholecystectomy (1982221105) S/P percutaneous endoscopic gastrostomy (PEG) tube placement (7704727290) Screening due (818040739) Screening for glaucoma (984122730) Seasonal affective disorder (935811623) Seborrheic keratoses (5107668201) Segmental and somatic dysfunction of cervical region (690000053) Segmental and somatic dysfunction of lower extremity (286985059) Segmental and somatic dysfunction of lumbar region (248370056) Segmental and somatic dysfunction of pelvic region (628170541) Segmental and somatic dysfunction of rib cage (939904288) Segmental and somatic dysfunction of sacral region (045919429) Segmental and somatic dysfunction of thoracic region (801058814) Segmental and somatic dysfunction of upper extremity (967631368) Skin lesion of face (3359803241) Skin mole (094419649) Skin tear of right lower leg without complication (6933813040) Somatic dysfunction of lower extremity (4094857540) Squamous cell carcinoma of epiglottis (7532055276) Stage 3b chronic kidney disease (CKD) (8829830057) Swelling of right foot (7418286220) Telangiectasia (381094300) Tendinitis of right infraspinatus tendon (395197567) Thrush (207768701) Tongue mass (8090018636) Transient cerebral ischemia (773983861) Type 2 diabetes mellitus with hyperlipidemia (502394432) Upper GI bleed (78932805) Ventricular premature complexes (717555620) Verruca vulgaris (34691792) MEDICATIONS: Active Inpt Meds: None Active PRN Meds: None One Time Meds: None Active IV Meds: Lactated Ringers Infusion 1,000 mL Start: 03/06/25 7:58:00 EDT, Rate: 20 mL/hr, 03/06/25 7:58:00 EDT ALLERGIES: (1) metFORMIN FAMILY HISTORY: SOCIAL HISTORY: PHYSICAL EXAM: VITALS: CakqxaDiqiFDCtxnqDSRqZ6MGK2WuutOa(kg) 03/06 08:0236.4--857133PX09/23 68.2 24 Hr Tmax: 36.4 at 03/06 08:02 36 Hr Tmax: 36.4 at 03/06 08:02 Vital Signs are the last 5 in the past 48 hours. Weights display the last 5 within 7 days. Initial Wt: 03/06 68.2 kg 150 lb Current Wt: 03/06 68.2 kg 150 lb GENERAL: HEENT: CARDIOVASCULAR: RESPIRATORY: ABDOMEN: EXREMETIES: NEUROLOGICAL: PSYCHIATRIC: LABS: No 36hr Lab Data DIAGNOSTICS: IMPRESSION: PLAN: History and Physical Update I have examined the patient; reviewed the H&P and there are no changes to the H&P unless noted below. Future Appointments Appointment Date:04/04/2025 11:00:00 AM Scheduled Provider:LEXUS RIVERA DO Location:[facility] Appointment Type:PC OV Appointment Date:05/09/2025 08:30:00 AM Scheduled Provider:LEXUS RIVERA DO Location:[facility] Appointment Type:PC Office Procedure OMT Appointment Date:05/23/2025 09:00:00 AM Scheduled Provider:LEXUS RIVERA DO Location:[facility] Appointment Type:PC Wellness Medicare Appointment Date:06/13/2025 09:30:00 AM Scheduled Provider:LEXUS RIVERA DO Location:[facility] Appointment Type:PC Office Procedure OMT Appointment Date:07/11/2025 08:30:00 AM Scheduled Provider:LEXUS RIVERA DO Location:[facility] Appointment Type:PC Office Procedure OMT Appointment Date:08/08/2025 11:30:00 AM Scheduled Provider:LEXUS RIVERA DO Location:[facility] Appointment Type:PC Office Procedure OMT Future Scheduled Tests Radiology* XR Shoulder Minimum 2 Views Right 11/29/24 [facility] 06-23-2025 Hospital Discharge instructions Patient Education 03/06/2025 10:30:23 Moderate Conscious Sedation, Adult, Care After Moderate Conscious Sedation, Adult, Care After These instructions provide you with information about caring for yourself after your procedure. Your health care provider may also give you more specific instructions. Your treatment has been plannedaccording to current medical practices, but problems sometimes occur. Call your health care provider if you have any problems or questions after your procedure. What can I expect after the procedure? After your procedure, it is common: To feel sleepy for several hours. To feel clumsy and have poor balance for several hours. To have poor judgment for several hours. To vomit if you eat too soon. Follow these instructions at home: For at least 24 hours after the procedure: Do not: ?Participate in activities where you could fall or become injured. ?Drive. ?Use heavy machinery. ?Drink alcohol. ?Take sleeping pills or medicines that cause drowsiness. ?Make important decisions or sign legal documents. ?Take care of children on your own. Rest. Eating and drinking Follow the diet recommended by your health care provider. If you vomit: ?Drink water, juice, or soup when you can drink without vomiting. ?Make sure you have little or no nausea before eating solid foods. General instructions Have a responsible adult stay with you until you are awake and alert. Take gcrl-rdf-yxuykal and prescription medicines only as told by your health care provider. If you smoke, do not smoke without supervision. Keep all follow-up visits as told by your health care provider. This is important. Contact a health care provider if: You keep feeling nauseous or you keep vomiting. You feel light-headed. You develop a rash. You have a fever. Get help right away if: You have trouble breathing. This information is not intended to replace advice given to you by your health care provider. Make sure you discuss any questions you have with your health care provider. Document Released: 06/21/2014 Document Revised: 08/13/2018 Document Reviewed: 12/20/2016 [employer] Patient Education 2020 [employer]. 03/06/2025 10:30:16 9 - AO Minor Esophagogastroduodenoscopy (11/25)(CUSTOM) Esophagogastroduodenoscopy This is an endoscopic procedure (a procedure that uses a device like a flexible telescope) that allows your caregiver to view the upper stomach and small bowel. This test allows your caregiver to look at the esophagus. The esophagus carries food from your mouth to your stomach. They can also look at your duodenum. This is the first part of the small intestine that attaches to the stomach. This rocky t is used to detect problems in the bowel such as ulcers and inflammation. MEANING OF TEST Your caregiver will go over the test results with you and discuss the importance and meaning of your results, as well as treatment options and the need for additional tests if necessary. OBTAINING THE TEST RESULTS Your caregiver s office will call you with the results of the test. POST SEDATION INSTRUCTIONS Rest at home today. Since your coordination may be impaired, be cautious on stairways, do not drive any vehicle or operate any heavy machinery, or use any sharp instruments for the remainder of the day. Do not drink any alcoholic beverages or make any major decisions for 24 hours. POST PROCEDURE INSTRUCTIONS Progress slowly with full liquids then resume previous diet and medications. Belching or passing of gas is to be expected. Notify the physician if you have severe chest pain, fever, or if difficulty when swallowing persists. 11/22/13 Custom Follow Up Care 03/02/2025 10:01:10 With:DAVIS ORDONEZ MD Address: [address] [place] [address]- [phone] When: Unknown [facility] 06-23-2025 Note [place] ADMISSION HISTORY AND PHYSICIAL CHIEF COMPLAINT: HISTORY OF PRESENT ILLNESS: REVIEW OF SYSTEMS: ACTIVE PROBLEMS: (85) Abnormal lung sounds (3818980387) Actinic keratosis (6616421801) Acute cholecystitis (514620089) Anemia (034420327) Anticoagulated on Coumadin (15906794) Atrial fibrillation (74841170) Biceps tendonitis on right (516697127) Blood loss anemia (8197908468) BMI 30.0-30.9,adult (378726230) BPH without urinary obstruction (1617210109) Chronic diastolic heart failure with preserved ejection fraction (2880111834) Chronic low back pain (482979165) Coronary atherosclerosis (3552804875) Cough (44684387) Diabetes mellitus with hyperglycemia (174996165) Diabetes mellitus with microalbuminuria (660777098) Diabetic nephropathy (0250251901) Diabetic peripheral neuropathy (0999393685) Diarrhea (800691935) Dry skin (97357899) Eustachian tube dysfunction (86843647) Exposure to COVID-19 virus (8911239495) Fatigue (872172202) Former smoker (29054508) GI bleed (580430013) Grief (303601324) Hair loss (537517873) History of lacunar cerebrovascular accident (CVA) (7101536832) Hospital discharge follow-up (1024468556) Hypercoagulable state due to atrial fibrillation (3130738570) Hypertension associated with diabetes (1598597717) 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 (379255542) Immunization declined (9894254631) Immunization refused (0805205359) Incisional hernia (780181931) Intermittent claudication (016938406) Leg edema (789641566) Lightheaded (5380083976) Low back pain (603203060) LVH (left ventricular hypertrophy) (80882273) LVH (left ventricular hypertrophy) due to hypertensive disease (8464798718) Marijuana use (6410553175) Medicare annual wellness visit, subsequent (336638800) Melena (2759920) Microalbuminuria (498297198) Need for hepatitis C screening test (598354486) Neoplasm of uncertain behavior (323915616) Obese (1391473424) Obstructive sleep apnea (893357244) Odynophagia (717536472) Osteoarthritis of lumbar spine (495314822) Osteoporosis screening (228623196) Prostate cancer screening (760723768) PVD (peripheral vascular disease) (6255285733) Right shoulder pain (00315959) S/P cholecystectomy (1790302847) S/P percutaneous endoscopic gastrostomy (PEG) tube placement (7372761305) Screening due (110344117) Screening for glaucoma (000783722) Seasonal affective disorder (307377373) Seborrheic keratoses (8650517238) Segmental and somatic dysfunction of cervical region (142076116) Segmental and somatic dysfunction of lower extremity (483221995) Segmental and somatic dysfunction of lumbar region (853498035) Segmental and somatic dysfunction of pelvic region (585448842) Segmental and somatic dysfunction of rib cage (976813824) Segmental and somatic dysfunction of sacral region (597592784) Segmental and somatic dysfunction of thoracic region (496783359) Segmental and somatic dysfunction of upper extremity (884174594) Skin lesion of face (9644380013) Skin mole (735418706) Skin tear of right lower leg without complication (2262501913) Somatic dysfunction of lower extremity (6167971277) 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) Stage 3b chronic kidney disease (CKD) (9489841616) Swelling of right foot (1237438907) Telangiectasia (959858677) Tendinitis of right infraspinatus tendon (506906793) Thrush (452376722) Tongue mass (8186717752) Transient cerebral ischemia (192981361) Type 2 diabetes mellitus with hyperlipidemia (473621238) Upper GI bleed (78276571) Ventricular premature complexes (128887520) Verruca vulgaris (20322082) MEDICATIONS: Active Inpt Meds: None Active PRN Meds: None One Time Meds: (Completed) lidocaine (Xylocaine 2% 5 mL syringe (ANES) (ANES)) IV Push, Once, Stop: 03/06/25 10:22:00 EDT (Completed) propofol (propofol (ANES)) IV Push, Once, Stop: 03/06/25 10:22:00 EDT Active IV Meds: Lactated Ringers Infusion 1,000 mL Start: 03/06/25 7:58:00 EDT, Rate: 20 mL/hr, 03/06/25 7:58:00 EDT ALLERGIES: (1) metFORMIN FAMILY HISTORY: SOCIAL HISTORY: PHYSICAL EXAM: VITALS: GannuiTgtvFJVprpaWUVyZ9GCI2BpjvFp(kg) 03/06 11:00----983453IM85/23 68.2 03/06 10:40----771116KR 03/06 10:33----834593PE 03/06 10:2736.1--5342759 2.0L/m 03/06 10:20--------100-- 24 Hr Tmax: 36.4 at 03/06 08:02 36 Hr Tmax: 36.4 at 03/06 08:02 Vital Signs are the last 5 in the past 48 hours. Weights display the last 5 within 7 days. Initial Wt: 03/06 68.2 kg 150 lb Current Wt: 03/06 68.2 kg 150 lb GENERAL: HEENT: CARDIOVASCULAR: RESPIRATORY: ABDOMEN: EXREMETIES: NEUROLOGICAL: PSYCHIATRIC: LABS: No 36hr Lab Data DIAGNOSTICS: IMPRESSION: PLAN: History and Physical Update I have examined the patient; reviewed the H&P and there are no changes to the H&P unless noted below. Digitally Signed by DAVIS ORDONEZ MD on 03/06/2025 11:[address] [facility]25 Note Date of Service 03/06/2025 Procedure Name EGD with guidewire dilatation Consent Taken before procedure Indication Patient with dysphagia and known esophageal stricture Location [facility] Pre-Procedure Exam Known stricture in the proximal cricopharyngeal area of the esophagus Procedural Sedation Anesthesia provided a MAC Technique Patient was brought to the Endo suite and placed left shoulder down. Scope was passed direct visualization down to the esophagus and the cricopharyngeal area there was a visibility of the previous stricture. Scope was advanced without difficulty into the stomach and into the duodenum. Retroflexion performed the stomach showed no abnormalities at the cardia. A guidewire was placed on the channel of the endoscope and the endoscope was withdrawn off of the guidewire. 10 mm dilator was passed with little or no resistance made a dilator was passed with little or no resistance. 14 mm there was someslight resistance noted millimeters more resistance was noted. Blood on the dilator after it was wit hdrawn. Wire was withdrawn. The endoscope was reintroduced down the esophagus is a small break in the mucosa at the cricopharyngeal area. The patient tolerated the procedure well. Post-Procedure Exam EGD with guidewire dilatation using up to size 45 [place] 15 mm today. Findings Stricture in the proximal esophagus Total Time Asked me 20 minutes Assessment/Plan Orders: Lactated Ringers Infusion 1,000 mL, 1000 mL, Intravenous Bedrest, 03/06/25 10:29:00 EDT, Strict, continuous, Constant order, Lying on side until alert or asordered Bedrest, 03/06/25 10:29:00 EDT, Strict, continuous, Constant order, Lying on side until alert or asordered Call Parameters, 03/06/25 10:29:00 EDT, Notify for vomiting, severe pain, signs of bleeding, severeabdominal pain, distention or rigidity, Constant order Communication Order (scheduled), 03/06/25 7:58:00 EDT, Once, 03/06/25 7:58:00 EDT, Urine test or waiver for women of child bearing age Communication Order (scheduled), 03/06/25 7:58:00 EDT, Once, 03/06/25 7:58:00 EDT, Fasting Blood Sugar prior to procedur if patient is diabetic Communication Order (scheduled), 03/06/25 7:58:00 EDT, Once, 03/06/25 7:58:00 EDT, Pathology TissueRequest Consult to Anesthesia, 03/06/25 7:58:00 EDT, *Other (specify in special instructions), Provide Anesthesia during Procedure Diet Order, 03/06/25 10:29:00 EDT, Start Meal: Next meal, Clear Liquid Diet, Post exam or after gagreflex returns if EGD, Constant Order, : N/A, : N/A Discharge Activity, NO activity restrictions, 03/06/25 10:29:00 EDT Discharge Diet, Follow the post-operative/post-procedure diet instructions provided by your physician's office., 03/06/25 10:29:00 EDT Discharge Wound Care, Follow the post-operative/post-procedure wound care instructions provided by your physician's office., 03/06/25 10:29:00 EDT Post Procedure Assessment, 03/06/25 10:29:00 EDT, Stop Date 03/06/25 10:29:00 EDT, [facility] in [facility] until Ivone Score of 12 or Preprocedure Sign Consent, 03/06/25 7:58:00 EDT, Once, For Colonoscopy Vital Signs, 03/06/25 10:29:00 EDT, q15min, 1 hour(s), 03/06/25 11:15:00 EDT Vital Signs, 03/06/25 10:29:00 EDT, q30min, 1 hour(s), 03/06/25 11:00:00 EDT Vital Signs PRN, 03/06/25 10:29:00 EDT, PRN order Follow Up/Recommendation Reevaluate the patient swallowing he needs to undergo speech therapy for swallowing and this could be arranged in the near future continue the patient PPI daily Digitally Signed by DAVIS ORDONEZ MD on 03/06/2025 10:[address] [facility] Note Discharge Instructions Thank you for allowing [facility] to assist you with your healthcare needs. The following is importantdischarge information regarding your hospital visit. Your Care Team LEXUS RIVERA DO, DR. What to do next Scheduled Follow-Up Appointments Appointment Type When With Where Contact Information StatusPC OV 04/04/2025 11:00 AM EDT LEXUS RIVERA DO [address] [phone] Confirmed PC Office Procedure OMT 05/09/2025 08:30 AM EDT LEXUS RIVERA DO [address] [phone] Confirmed PC Wellness Medicare 05/23/2025 09:00 AM EDT LEXUS RIVERA [address] [phone] Confirmed PC Office Procedure OMT 06/13/2025 09:30 AM EDT LEXUS RIVERA [address] [address] Confirmed PC Office Procedure OMT 07/11/2025 08:30 AM EDT LEXUS RIVERA [address] [phone] Confirmed PC Office Procedure OMT 08/08/2025 11:30 AM EST LEXUS RIVERA [address] [address] Confirmed Follow Up Appointments Follow Up with DAVIS ORDONEZ MD Where:[address] [place] [phone] Allergies metFORMIN (Moderate) dairrhea Medications Please ask your primary doctor or pharmacist before taking any other medication not listed, including over the counter drugs, herbal medications, vitamins and or supplements as they may interact withyour home medications. What How Much When Why Instructions Last Dose Unchanged albuterol-ipratropium (albuterol-ipratropium 2.5 mg-0.5 mg/ 3 mL inhalation solution) 3 Milliliter by inhalation Four (4) times a day as needed for dyspnea, wheezing Duration: 30 Days Unchanged DME (Nebulizer (Compressor)) See instructions COPD mixed type dx J44.9 nebulizer with mask/ pipe and tubing Unchanged nitroGLYcerin (nitroglycerin 0.4 mg sublingual tablet) 1 tab(s) under the tongue Every 5 minutes as needed for for chest pain Unchanged pregabalin (pregabalin 150 mg oral capsule) 1 cap by mouth Two (2) times a day Diabetic peripheral neuropathy Duration: 30 Days Unchanged warfarin (warfarin 2 mg oral tablet) 1 tab(s) by mouth Once a day Duration: 90 Days Please take this list to your next doctor s visit. Bring all medications you take, including over the counter medications, herbals and other supplements with you to your doctor s visit. Patients and families are reminded to discard old lists and to update any records with all medication providers or retail pharmacies. Education Materials Moderate Conscious Sedation, Adult, Care After These instructions provide you with information about caring for yourself after your procedure. Your health care provider may also give you more specific instructions. Your treatment has been plannedaccording to current medical practices, but problems sometimes occur. Call your health care provider if you have any problems or questions after your procedure. What can I expect after the procedure? After your procedure, it is common: To feel sleepy for several hours. To feel clumsy and have poor balance for several hours. To have poor judgment for several hours. To vomit if you eat too soon. Follow these instructions at home: For at least 24 hours after the procedure: Do not: ? Participate in activities where you could fall or become injured. ? Drive. ? Use heavy machinery. ? Drink alcohol. ? Take sleeping pills or medicines that cause drowsiness. ? Make important decisions or sign legal documents. ? Take care of children on your own. Rest. Eating and drinking Follow the diet recommended by your health care provider. If you vomit: ? Drink water, juice, or soup when you can drink without vomiting. ? Make sure you have little or no nausea before eating solid foods. General instructions Have a responsible adult stay with you until you are awake and alert. Take zkhs-ajt-bnfmudm and prescription medicines only as told by your health care provider. If you smoke, do not smoke without supervision. Keep all follow-up visits as told by your health care provider. This is important. Contact a health care provider if: You keep feeling nauseous or you keep vomiting. You feel light-headed. You develop a rash. You have a fever. Get help right away if: You have trouble breathing. This information is not intended to replace advice given to you by your health care provider. Make sure you discuss any questions you have with your health care provider. Document Released: 06/21/2014 Document Revised: 08/13/2018 Document Reviewed: 12/20/2016 [employer] Patient Education 2020 [employer] Esophagogastroduodenoscopy This is an endoscopic procedure (a procedure that uses a device like a flexible telescope) that allows your caregiver to view the upper stomach and small bowel. This test allows your caregiver to look at the esophagus. The esophagus carries food from your mouth to your stomach. They can also look at your duodenum. This is the first part of the small intestine that attaches to the stomach. This rocky t is used to detect problems in the bowel such as ulcers and inflammation. MEANING OF TEST Your caregiver will go over the test results with you and discuss the importance and meaning of your results, as well as treatment options and the need for additional tests if necessary. OBTAINING THE TEST RESULTS Your caregiver s office will call you with the results of the test. POST SEDATION INSTRUCTIONS Rest at home today. Since your coordination may be impaired, be cautious on stairways, do not drive any vehicle or operate any heavy machinery, or use any sharp instruments for the remainder of the day. Do not drink any alcoholic beverages or make any major decisions for 24 hours. POST PROCEDURE INSTRUCTIONS Progress slowly with full liquids then resume previous diet and medications. Belching or passing of gas is to be expected. Notify the physician if you have severe chest pain, fever, or if difficulty when swallowing persists. 11/22/13 Custom Additional Information VACCINATE! IT SAVES LIVES! Members of the community who have not yet received the COVID-19 vaccine and would like to receive it can visit one of [facility] vaccine clinics. There are many vaccine clinic locations within the [facility]. For locations and available times, please visit https://gettheshot.coronavirus.[place].gov/. It is important to note that some COVID mobile vaccine clinics are held outdoors and may be canceled in rainy or stormy conditions. To learn more about pediatric vaccinations (ages 5-11), we invite you to visit the [facility] webpage. [email or web address].[email or web address]/pages/[email or web address]-[email or web address]-[email or web address]-[email or web address]-Jqo stions.htmlTo learn more about the COVID-19 vaccine, we invite you to visit the CDC website for a list of frequently asked questions.https://www.cdc.gov/coronavirus/2019-ncov/vaccines/faq.html [facility] Patient Portal Access Instructions: Stay connected with your healthcare team and access your personal medical information anytime with the [facility] Patient [facility]. Please follow the directions below to create your [employer] account: 1.Access the email account you provided upon registration to the hospital/physician office.2.Look for an invitation email from [facility].3.Open the email and access the invitation link: AcceptInvitation to [employer].4.Fill in the required gross to create your account. To access your account, visit [email or web address]. Click the blue button labeled Access Patient Portal and then log in with the username and password that you created in the steps above. You will be able to view your test results, lab results, a summary of your visits, upcoming appointments and more. There is also a convenient messaging option where you can send secure messages to your [employer], a [employer]. In addition, you will have the ability to download any documents or summaries to your computer and/or send the information securely to a physician. Remember that your healthcare information is confidential, so carefully consider who you will allowto register on the [facility] Patient Portal for access to your information. You can also access the [facility] Patient Portal on the [facility] [facility] beth. Simply click on Patient Portal and then log into your account. If you would like to receive a full copy of your medical records, please contact the [facility] Medical Records Department by calling [phone], Thursday through Thursday between 8 a.m. and 4:30 p.m. HOW TO SAFELY DISPOSE OF PRESCRIPTION MEDICATIONS Please use one of the following methods to safely dispose of your unused medications. 1.Use a drug disposal kit: the drug disposal pouch allows you to safely discard your old and unuseddrugs. Ask your nurse to give you one when you are discharged.2.Visit a local take-back location: Many local pharmacies and police departments have programs that collect old and unwanted prescriptiondrugs. Call your local pharmacy or go to http://bit.ly/9H6Wp0x to find one close to you.3.Make use of household items: Use cat litter or old coffee grounds to dispose medications if other options arenot available. Mix your drugs with these household products, seal them in an airtight container andthrow it into the garbage. Call [facility]: [phone] to be sure your drugs can be disposed of in this way. Some medicines may require a different approach.4.Never flush your medications down the toilet. IF YOU HAVE BEEN PRESCRIBED AN OPIOID FOR PAIN If you have been prescribed an opioid (such as hydrocodone, oxycodone or morphine), it is critical to understand the possible side effects and risks of opioid pain medications. Even when taken as directed, opioids can have several side effects including: Tolerance, meaning you might need to take more of a medication for the same pain relief. Nausea, vomiting and/or constipation. Sleepiness, dizziness, dry mouth, confusion, depression or itching. Physical dependence, meaning you have withdrawal symptoms when a medication is stopped, can develop within a few days. KNOW YOUR RESPONSIBILITIES It is important to know exactly how much and how often to take the opioid pain medications you are prescribed. Never take opioids in higher amounts or more often than prescribed. Do not combine opioids with alcohol or other drugs that cause drowsiness, such as benzodiazepines, also known as benzos, including diazepam and alprazolam, muscle relaxants or sleep aids. Never sell or share prescription opioids. This is illegal. Store opioids in a secure place and out of reach of others (including children, family, friends and visitors). The last page of this document has been signed and retained as a CHART COPY. Signatures Patient Education Materials Moderate Conscious Sedation, Adult, Care After 9 - AO Minor Esophagogastroduodenoscopy (11/25)(CUSTOM) Medication Leaflets My discharge plan and instructions have been reviewed and explained to me and IAMY GREGORY R understand my current condition and have read and understand these discharge instructions. I have received a written copy of the plan/instructions. If I have questions, I am aware that I should contactmy doctor. Patient/General Labor Signature: Date/Time: Relationship to Patient: Witness Name/Signature: Date/Time: [facility]06-23-2025 Note [place] ADMISSION HISTORY AND PHYSICIAL CHIEF COMPLAINT: HISTORY OF PRESENT ILLNESS: REVIEW OF SYSTEMS: ACTIVE PROBLEMS: (85) Abnormal lung sounds (0572783026) Actinic keratosis (2896434374) Acute cholecystitis (877145564) Anemia (444461807) Anticoagulated on Coumadin (19212403) Atrial fibrillation (24036189) Biceps tendonitis on right (958068795) Blood loss anemia (1221878053) BMI 30.0-30.9,adult (829197462) BPH without urinary obstruction (3907473555) Chronic diastolic heart failure with preserved ejection fraction (1851072052) Chronic low back pain (169442102) Coronary atherosclerosis (6981265902) Cough (21655308) Diabetes mellitus with hyperglycemia (483521864) Diabetes mellitus with microalbuminuria (930293994) Diabetic nephropathy (1364868365) Diabetic peripheral neuropathy (2970772507) Diarrhea (494255305) Dry skin (79892031) Eustachian tube dysfunction (16867353) Exposure to COVID-19 virus (2273883386) Fatigue (914202602) Former smoker (79278266) GI bleed (248530150) Grief (420695469) Hair loss (560424336) History of lacunar cerebrovascular accident (CVA) (2214538286) Hospital discharge follow-up (9791287079) Hypercoagulable state due to atrial fibrillation (5747898610) Hypertension associated with diabetes (2042929443) 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 (081568898) Immunization declined (5333141062) Immunization refused (6412617515) Incisional hernia (417421783) Intermittent claudication (377085342) Leg edema (757998703) Lightheaded (1505539783) Low back pain (898176663) LVH (left ventricular hypertrophy) (28883137) LVH (left ventricular hypertrophy) due to hypertensive disease (3358778896) Marijuana use (8729406542) Medicare annual wellness visit, subsequent (324073929) Melena (7821871) Microalbuminuria (815671288) Need for hepatitis C screening test (869432352) Neoplasm of uncertain behavior (565028495) Obese (8560570067) Obstructive sleep apnea (993308604) Odynophagia (085328148) Osteoarthritis of lumbar spine (954756618) Osteoporosis screening (710851313) Prostate cancer screening (411027142) PVD (peripheral vascular disease) (9090086378) Right shoulder pain (88975978) S/P cholecystectomy (4433757321) S/P percutaneous endoscopic gastrostomy (PEG) tube placement (2811791830) Screening due (687004407) Screening for glaucoma (453685016) Seasonal affective disorder (521748663) Seborrheic keratoses (0889947586) Segmental and somatic dysfunction of cervical region (747752388) Segmental and somatic dysfunction of lower extremity (032701637) Segmental and somatic dysfunction of lumbar region (495164944) Segmental and somatic dysfunction of pelvic region (105762012) Segmental and somatic dysfunction of rib cage (545160200) Segmental and somatic dysfunction of sacral region (421629561) Segmental and somatic dysfunction of thoracic region (390124577) Segmental and somatic dysfunction of upper extremity (604469952) Skin lesion of face (9329877938) Skin mole (347672806) Skin tear of right lower leg without complication (1320273026) Somatic dysfunction of lower extremity (0630839886) Squamous cell carcinoma of epiglottis (8230183879) Stage 3b chronic kidney disease (CKD) (8960429894) Swelling of right foot (7454195193) Telangiectasia (810800600) Tendinitis of right infraspinatus tendon (692421613) Thrush (816934104) Tongue mass (6555314947) Transient cerebral ischemia (043307583) Type 2 diabetes mellitus with hyperlipidemia (530768568) Upper GI bleed (79145479) Ventricular premature complexes (449551451) Verruca vulgaris (36292589) MEDICATIONS: Active Inpt Meds: None Active PRN Meds: None One Time Meds: None Active IV Meds: Lactated Ringers Infusion 1,000 mL Start: 03/06/25 7:58:00 EDT, Rate: 20 mL/hr, 03/06/25 7:58:00 EDT ALLERGIES: (1) metFORMIN FAMILY HISTORY: SOCIAL HISTORY: PHYSICAL EXAM: VITALS: [id number]f(kg) 03/06 08:0236.4--456159IE04/23 68.2 24 Hr Tmax: 36.4 at 03/06 08:02 36 Hr Tmax: 36.4 at 03/06 08:02 Vital Signs are the last 5 in the past 48 hours. Weights display the last 5 within 7 days. Initial Wt: 03/06 68.2 kg 150 lb Current Wt: 03/06 68.2 kg 150 lb GENERAL: HEENT: CARDIOVASCULAR: RESPIRATORY: ABDOMEN: EXREMETIES: NEUROLOGICAL: PSYCHIATRIC: LABS: No 36hr Lab Data DIAGNOSTICS: IMPRESSION: PLAN: History and Physical Update I have examined the patient; reviewed the H&P and there are no changes to the H&P unless noted below. Digitally Signed by DAVIS ORDONEZ MD on 03/06/2025 10:[address] [facility]06-23-2025 Anesthesiology Consult note Patient: TYRELL REYES Age: 74 years Sex: Male : 1950 Associated Diagnoses: None Author: KIERRA FLANAGAN APRN-SUPERVISOR NURSE Preoperative Information Time of last food or liquid consumption: 03/06/2025 00:00:00 Anesthesia history Patient's history: negative. Family's history: negative. Review of Systems Ear/Nose/Mouth/Throat: Negative. Respiratory: Negative. Cardiovascular: anemia, a fib, htn. Gastrointestinal: Negative. Genitourinary: BPH. Endocrine: DM. Musculoskeletal: Negative. Integumentary: Negative. Neurologic: Negative. Health Status Allergies: Allergic Reactions (Selected) Moderate MetFORMIN- Dairrhea., Allergies (1) ActiveSeverityReaction metFORMINModeratedairrhea Current medications: (Selected) Inpatient Medications Ordered Lactated Ringers Infusion 1,000 mL: 20 mL/hr, Intravenous Prescriptions Prescribed Nebulizer (Compressor): See Instructions, dx J44.9 nebulizer with mask/pipe and tubing, 1 EA, 0 Refill(s) albuterol-ipratropium 2.5 mg-0.5 mg/3 mL inhalation solution: 3 mL, Inhalation, QID, for 30 day(s),PRN: dyspnea, wheezing, 360 mL, 5 Refill(s) nitroglycerin 0.4 mg sublingual tablet: 0.4 mg, 1 tab(s), Sublingual, q5min, PRN: for chest pain, 25 tab(s), 0 Refill(s) pregabalin 150 mg oral capsule: 150 mg, 1 cap(s), Oral, BID, for 30 day(s), 60 cap(s), 2 Refill(s) warfarin 2 mg oral tablet: 2 mg, 1 tab(s), Oral, qDay, for 90 day(s), 90 tab(s), 3 Refill(s), Medications (1) Active Scheduled: (0) Continuous: (1) Lactated Ringers Infusion 1,000 mL 1,000 mL, Intravenous, 20 mL/hr PRN: (0) Problem list: Medical Abnormal lung sounds / SNOMED CT 7604426318 / Confirmed Actinic keratosis / SNOMED CT 1468937957 / Confirmed Acute cholecystitis / SNOMED CT 267428033 / Confirmed Anemia / SNOMED CT 998881552 / Confirmed Blood loss anemia / SNOMED CT 8657918015 / Confirmed Anticoagulated on Coumadin / SNOMED CT 46717232 / Confirmed Atrial fibrillation / SNOMED CT 81572908 / Confirmed BPH without urinary obstruction / SNOMED CT 4068719416 / Confirmed Biceps tendonitis on right / SNOMED CT 624411759 / Confirmed BMI 30.0-30.9,adult / SNOMED CT 948734578 / Confirmed Thrush / SNOMED CT 370878586 / Confirmed Chronic diastolic heart failure with preserved ejection fraction / SNOMED CT 8235527344 / Confirmed Stage 3b chronic kidney disease (CKD) / SNOMED CT 2328214845 / Confirmed Chronic low back pain / SNOMED CT 569345700 / Confirmed Coronary atherosclerosis / SNOMED CT 9543361246 / Confirmed Cough / SNOMED CT 71190872 / Confirmed Diabetes mellitus with hyperglycemia / SNOMED CT 116857583 / Confirmed Diabetes mellitus with microalbuminuria / SNOMED CT 012562120 / Confirmed Diabetic peripheral neuropathy / SNOMED CT 0622735778 / Confirmed Diarrhea / SNOMED CT 531234385 / Confirmed Diabetic nephropathy / SNOMED CT 5836341257 / Confirmed Dry skin / SNOMED CT 97327770 / Confirmed Eustachian tube dysfunction / SNOMED CT 57673636 / Confirmed Leg edema / SNOMED CT 199900987 / Confirmed Former smoker / SNOMED CT 23772429 / Confirmed Exposure to COVID-19 virus / SNOMED CT 6750975651 / Confirmed Fatigue / SNOMED CT 301853318 / Confirmed Grief / SNOMED CT 472781391 / Confirmed S/P cholecystectomy / SNOMED CT 9428574738 / Confirmed History of lacunar cerebrovascular accident (CVA) / SNOMED CT 7051849908 / Confirmed S/P percutaneous endoscopic gastrostomy (PEG) tube placement / SNOMED CT 8731181140 / Confirmed Hypercoagulable state due to atrial fibrillation / SNOMED CT 3113378627 / Confirmed Hypertension associated with diabetes / SNOMED CT 9401703608 / Confirmed 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 / SNOMED CT 319539485 / Confirmed LVH (left ventricular hypertrophy) due to hypertensive disease / SNOMED CT 3631814302 / Confirmed Incisional hernia / SNOMED CT 297773669 / Confirmed Tendinitis of right infraspinatus tendon / SNOMED CT 866639767 / Confirmed Intermittent claudication / SNOMED CT 453258913 / Confirmed LVH (left ventricular hypertrophy) / SNOMED CT 02590122 / Confirmed Skin lesion of face / SNOMED CT 1903319302 / Confirmed Lightheaded / SNOMED CT 5324241552 / Confirmed Hair loss / SNOMED CT 469399051 / Confirmed Low back pain / SNOMED CT 313016751 / Confirmed Marijuana use / SNOMED CT 5681629766 / Confirmed Tongue mass / SNOMED CT 9880436979 / Confirmed Immunization declined / SNOMED CT 9161086566 / Confirmed Immunization refused / SNOMED CT 1707134854 / Confirmed Melena / SNOMED CT 7536929 / Confirmed Microalbuminuria / SNOMED CT 747683266 / Confirmed Neoplasm of uncertain behavior / SNOMED CT 637431413 / Confirmed Obese / SNOMED CT 5072421508 / Confirmed Obstructive sleep apnea / SNOMED CT 124600956 / Confirmed Osteoarthritis of lumbar spine / SNOMED CT 943883137 / Confirmed Osteoporosis screening / SNOMED CT 908418448 / Confirmed Prostate cancer screening / SNOMED CT 295698961 / Confirmed Medicare annual wellness visit, subsequent / SNOMED CT 267536112 / Confirmed Screening for glaucoma / SNOMED CT 196019289 / Confirmed PVD (peripheral vascular disease) / SNOMED CT 4459091182 / Confirmed Skin mole / SNOMED CT 630278514 / Confirmed Hospital discharge follow-up / SNOMED CT 3519151541 / Confirmed Screening due / SNOMED CT 071655924 / Confirmed Seasonal affective disorder / SNOMED CT 979071762 / Confirmed Seborrheic keratoses / SNOMED CT 4431003925 / Confirmed Segmental and somatic dysfunction of lumbar region / SNOMED CT 599444391 / Confirmed Segmental and somatic dysfunction of thoracic region / SNOMED CT 693691129 / Confirmed Segmental and somatic dysfunction of rib cage / SNOMED CT 711992639 / Confirmed Segmental and somatic dysfunction of cervical region / SNOMED CT 177831749 / Confirmed Segmental and somatic dysfunction of sacral region / SNOMED CT 530044814 / Confirmed Segmental and somatic dysfunction of pelvic region / SNOMED CT 996544444 / Confirmed Segmental and somatic dysfunction of lower extremity / SNOMED CT 575492008 / Confirmed Segmental and somatic dysfunction of upper extremity / SNOMED CT 337372470 / Confirmed Right shoulder pain / SNOMED CT 68939384 / Confirmed Somatic dysfunction of lower extremity / SNOMED CT 6971405593 / Confirmed Squamous cell carcinoma of epiglottis / SNOMED CT 7999252367 / Confirmed Odynophagia / SNOMED CT 219728757 / Confirmed Swelling of right foot / SNOMED CT 3321681048 / Confirmed Skin tear of right lower leg without complication / SNOMED CT 7723078990 / Confirmed Telangiectasia / SNOMED CT 486257723 / Confirmed Transient cerebral ischemia / SNOMED CT 665575746 / Confirmed Type 2 diabetes mellitus with hyperlipidemia / SNOMED CT 011867577 / Confirmed Upper GI bleed / SNOMED CT 10929166 / Confirmed Ventricular premature complexes / SNOMED CT 750369784 / Confirmed Verruca vulgaris / SNOMED CT 83110694 / Confirmed Need for hepatitis C screening test / SNOMED CT 149196548 / Confirmed, Active Problems (85) Abnormal lung sounds Actinic keratosis Acute cholecystitis Anemia Anticoagulated on Coumadin Atrial fibrillation Biceps tendonitis on right Blood loss anemia BMI 30.0-30.9,adult BPH without urinary obstruction Chronic diastolic heart failure with preserved ejection fraction Chronic low back pain Coronary atherosclerosis Cough Diabetes mellitus with hyperglycemia Diabetes mellitus with microalbuminuria Diabetic nephropathy Diabetic peripheral neuropathy Diarrhea Dry skin Eustachian tube dysfunction Exposure to COVID-19 virus Fatigue Former smoker GI bleed Grief Hair loss History of lacunar cerebrovascular accident (CVA) Hospital discharge follow-up Hypercoagulable state due to atrial fibrillation Hypertension associated with diabetes 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 Immunization declined Immunization refused Incisional hernia Intermittent claudication Leg edema Lightheaded Low back pain LVH (left ventricular hypertrophy) LVH (left ventricular hypertrophy) due to hypertensive disease Marijuana use Medicare annual wellness visit, subsequent Melena Microalbuminuria Need for hepatitis C screening test Neoplasm of uncertain behavior Obese Obstructive sleep apnea Odynophagia Osteoarthritis of lumbar spine Osteoporosis screening Prostate cancer screening PVD (peripheral vascular disease) Right shoulder pain S/P cholecystectomy S/P percutaneous endoscopic gastrostomy (PEG) tube placement Screening due Screening for glaucoma Seasonal affective disorder Seborrheic keratoses Segmental and somatic dysfunction of cervical region Segmental and somatic dysfunction of lower extremity Segmental and somatic dysfunction of lumbar region Segmental and somatic dysfunction of pelvic region Segmental and somatic dysfunction of rib cage Segmental and somatic dysfunction of sacral region Segmental and somatic dysfunction of thoracic region Segmental and somatic dysfunction of upper extremity Skin lesion of face Skin mole Skin tear of right lower leg without complication Somatic dysfunction of lower extremity Squamous cell carcinoma of epiglottis Stage 3b chronic kidney disease (CKD) Swelling of right foot Telangiectasia Tendinitis of right infraspinatus tendon Thrush Tongue mass Transient cerebral ischemia Type 2 diabetes mellitus with hyperlipidemia Upper GI bleed Ventricular premature complexes Verruca vulgaris Histories Past Medical History: No active or resolved past medical history items have been selected or recorded. Family History: Hypertension Mother Procedure history: Vascular Surgery ([id number]) on 11/12/2016 at 65 Years. Comments: 04/13/2019 15:34 Falguni Davenport LPN bilateral legs Heart Surgery ([id number]) on 01/25/2016 at 65 Years. Comments: 04/13/2019 15:30 Falguni Davenport LPN one stent Colonoscopy ([id number]) on 12/28/2015 at 65 Years. Comments: 04/13/2019 15:35 LOGAN RíosFalguni mosley ERICK normal, repeat 10 years Circumcision ([id number]) on 02/19/2011 at 60 Years. Mastectomy ([id number]) on 03/16/2002 at 51 Years. Comments: 04/13/2019 15:35 LOGAN SortoFalguni ERICK left, subtotal Lumpectomy ([id number]). Comments: 04/13/2019 15:30 LOGAN Sorto Falguni ERICK bilateral Esophagogastroduodenoscopy (261623415). Insertion of feeding tube into duodenum (2292585261). Cholecystectomy (25588799). Social History: Social & Psychosocial Habits Alcohol 03/06/2025 Use: Past Type: Liquor Frequency: 3-5 times per week Comment: 1 - 3 oz whiskey - 11/02/2019 08:30 - ERI Rainey; hasn't since Thursday - 10/09/2020 09:17 - Laury Murillo LPN Substance Abuse 03/06/2025 Use: Current Type: Marijuana Frequency: Daily Comment: 1-2 times daily - 11/02/2019 08:30 - ERI Rainey; hasn't since Thursday - 10/09/2020 09:17 - Laury Murillo LPN Tobacco 03/06/2025 Tobacco Use: Former smoker, quit more Type: Cigarettes Number of years: 30 Stopped at age: 44 Years Home/Environment 03/06/2025 Living situation: Home with assistance Other risks in environment: no smoke exposure Domestic Concerns None Primary Automatic 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 Mechanic: Self, Lives In 1st floor bedroom Current Home Treatments Blood Glucose monitoring, CPAP, Nebulizer treatments, Tube feeding Special Services and Community Resources None Spouse Name Jillian Marital Status of Patient if Patient Independent Adult: Nutrition/Health 03/06/2025 Type of diet: juvena feeding tube supplement Appetite Good Eating Difficulties Swallowing Enteral Feedings Yes TPN Feedings No Skin Breakdown/Decubitus Ulcers No Caffeine intake amount: 1 can of pepsi daily Physical Examination Vital Signs 03/06/2025 8:02 EDT Temperature Temporal Artery 36.4 DegC Peripheral Pulse Rate 79 bpm Respiratory Rate 18 br/min Systolic Blood Pressure Non-Invasive 136 mmHg Diastolic Blood Pressure Non-Invasive 62 mmHg Vital Signs (last 24 hrs) Last Charted Temp Ptqpmnvg83.4 DegC (MAR 06 08:02) CBC776 mmHg (MAR 06 08:02) DBP62 mmHg (MAR 06 08:02) BMI23.54 (MAR 06 08:) Measurements from flowsheet : Measurements 03/06/2025 8:02 EDT Height 170.2 cm Height in inches 67 inch(es) Admission Weight 68.2 kg Weight Lbs 150 lb Weight Method Stated [place] Body Weight 66.12 kg BSA Admission 1.79 Body Mass Index 23.54 kg/m2 Pain assessment: Pain Assessment 03/06/2025 8:02 EDT Primary Pain Intensity 0 Pain Scale Type 0-10 Pain scale . General: Alert and oriented. Airway: Normal temporomandibular joint mobility. Mallampati classification: II (soft palate, fauces, uvula visible). Head: Normocephalic. Dentition Evaluation: Own teeth. Neck: Supple. Respiratory: Lungs are clear to auscultation. Cardiovascular: Normal rate. Heart Sounds: Normal. Gastrointestinal: Soft. Musculoskeletal Normal range of motion. Integumentary: Intact. Neurologic: Alert, Oriented. Review / Management Results review: No qualifying data available , Lab results 03/06/2025 8:39 EDT SN - Proc - Anesthesia Type MAC SN - Proc - EBL 0 mL SN - Proc - Actual Procedure ESOPHAGOGASTRODUODENOSCOPY WITH DILATION 03/06/2025 8:38 EDT SN - PP - Body Position Lateral Right Side-up Standard Intra-op 03/06/2025 8:38 EDT SN - GCD - Case Level OPD Level 3 03/06/2025 8:38 EDT SN - CAt - Case Attendee SN - CAt - Case Attendee SN - CAt - Case Attendee SN - CAt - Case Attendee SN - CAt - Case Attendee SN - CAt - Case Attendee SN - CAt - Case Attendee SN - CAt - Case Attendee SN - CAt - Role Performed Primary Surgeon SN - CAt - Role Performed Drier Take Off Tender 1 SN - CAt - Role Performed Scrub 1 SN - CAt - Role Performed SUPERVISOR NURSE 03/06/2025 8:11 EDT Lactated Ringers Injection Begin Bag 1,000 mL mL 03/06/2025 8:02 EDT Designated Person #1 We May Share SHIRA Reyes [phone] Designated Person #1 Relationship Spouse Height 170.2 cm Height in inches 67 inch(es) Admission Weight 68.2 kg Weight Lbs 150 lb Weight Method Stated [place] Body Weight 66.12 kg BSA Admission 1.79 Body Mass Index 23.54 kg/m2 Temperature Temporal Artery 36.4 DegC Peripheral Pulse Rate 79 bpm Respiratory Rate 18 br/min Systolic Blood Pressure Non-Invasive 136 mmHg Diastolic Blood Pressure Non-Invasive 62 mmHg Primary Pain Intensity 0 Pain Scale Type 0-10 Pain scale Respirations Unlabored Respiratory Pattern Regular Oxygen Therapy Room air Oxygen Saturation 98 % Status N/A IV Present Present Hand Right 03/06/2025 22 gauge Peripheral IV Activity: Insert new site Peripheral IV Dressing Condition: Clean, Dry, Intact Peripheral IV Dressing Activity: Applied, Transparent dressing Peripheral IV Line Status/Patency: Flushes easily, Continuous infusion Peripheral IV Site Condition: No complications Peripheral IV Number of Attempts: 1 Level of Consciousness Alert Affect/Behavior Appropriate, Calm, Cooperative Orientation Oriented x 4 Sensory Deficits None Infectious Disease Symptoms Patient states no symptoms Infectious Disease Recent Exposure No Alcohol and Drug Use No Employee of Institutional Living No Health Care Employee No History of Exposure to TB No History of Positive Chest X-Ray for TB No History of Positive TB Skin Test No Homeless No Known Immunosuppression No Recent Immigrant No Resident of Institutional Living No Bloody Sputum No Fatigue No Fever No Loss of Appetite No Night Sweats No Persistent Cough > 3 Weeks No Weight Loss No Allergies Yes Anesthesia Extension Set Applied Yes Step Finisher On Yes Consent Form Signed Yes Patient Dressed In Hospital gown History & Physical On Chart Yes Obstructive Sleep Apnea Assess Completed Yes Ivone Motor (2) Moves 4 extremities voluntarily or on command Ivone Respirations (2) Spontaneous respiration without support, RR > 10 Ivone Blood Pressure (2) BP 20% above or below preanesthetic level Ivone Pulse (2) Pulse 20% above or below preanesthetic level Ivone Oxygen Saturation (2) 94% or more Ivone Level of Consciousness (2) Fully awake Ivone III Score 12 Barriers to Learning None evident Teaching Method Explanation, Printed materials Preferred Spoken Language Bangladeshi Preferred Written Language Bangladeshi Patient's Current Physicians Patient's Current Physicians Discharge To, Anticipated Home independently Activity Status ADL Awake NPO Status Maintained Standard Safety Safety level maintained Prev Test Positive/Diagnosis w/COVID-19 No Current Quarantine/Isolated any Illness No Any Contact with Sick Animals/Birds No Traveled Anywhere in Last 30 Days No Allergy Band on and Verified Yes Patient ID Band on and Verified Yes Implants Verified Yes Pacemaker/AICD Verified Yes Site Verified by Patient/Family Yes Last Fluid Intake 03/05/2025 20:00 Last Food Intake 03/05/2025 20:00 N/A Personal Devices, Patient Valuables Dentures, upper, Hearing aid, left, Hearing aid, right Admission Note-Nursing Procedure/Therapy Intake . Assessment and Plan [place] [employer]esthesi[employer] (ASA) physical status classification: Class III. Anesthetic Preoperative Plan Anesthetic technique: MAC. Postoperative pain management: Per surgeon. Informed consent: signed by patient. Digitally Signed by KIERRA FLANAGAN on 03/06/2025 10:[address] [facility]06-16-2025 Hospital Discharge instructions Patient Education 02/27/2025 10:16:37 9 - AO Minor Esophagogastroduodenoscopy (11/25) (CUSTOM) Esophagogastroduodenoscopy This is an endoscopic procedure (a procedure that uses a device like a flexible telescope) that allows your caregiver to view the upper stomach and small bowel. This test allows your caregiver to look at the esophagus. The esophagus carries food from your mouth to your stomach. They can also look at your duodenum. This is the first part of the small intestine that attaches to the stomach. This rocky t is used to detect problems in the bowel such as ulcers and inflammation. MEANING OF TEST Your caregiver will go over the test results with you and discuss the importance and meaning of your results, as well as treatment options and the need for additional tests if necessary. OBTAINING THE TEST RESULTS Your caregiver s office will call you with the results of the test. POST SEDATION INSTRUCTIONS Rest at home today. Since your coordination may be impaired, be cautious on stairways, do not drive any vehicle or operate any heavy machinery, or use any sharp instruments for the remainder of the day. Do not drink any alcoholic beverages or make any major decisions for 24 hours. POST PROCEDURE INSTRUCTIONS Progress slowly with full liquids then resume previous diet and medications. Belching or passing of gas is to be expected. Notify the physician if you have severe chest pain, fever, or if difficulty when swallowing persists. 3/11/14 Custom 02/27/2025 10:16:30 Monitored Anesthesia Care, Care After Monitored Anesthesia Care, Care After These instructions provide you with information about caring for yourself after your procedure. Your health care provider may also give you more specific instructions. Your treatment has been plannedaccording to current medical practices, but problems sometimes occur. Call your health care provider if you have any problems or questions after your procedure. What can I expect after the procedure? After your procedure, you may: Feel sleepy for several hours. Feel clumsy and have poor balance for several hours. Feel forgetful about what happened after the procedure. Have poor judgment for several hours. Feel nauseous or vomit. Have a sore throat if you had a breathing tube during the procedure. Follow these instructions at home: For at least 24 hours after the procedure: Have a responsible adult stay with you. It is important to have someone help care for you until youare awake and alert. Rest as needed. Do not: ?Participate in activities in which you could fall or become injured. ?Drive. ?Use heavy machinery. ?Drink alcohol. ?Take sleeping pills or medicines that cause drowsiness. ?Make important decisions or sign legal documents. ?Take care of children on your own. Eating and drinking Follow the diet that is recommended by your health care provider. If you vomit, drink water, juice, or soup when you can drink without vomiting. Make sure you have little or no nausea before eating solid foods. General instructions Take wjen-dcp-euoaeik and prescription medicines only as told by your health care provider. If you have sleep apnea, surgery and certain medicines can increase your risk for breathing problems. Follow instructions from your health care provider about wearing your sleep device: ?Anytime you are sleeping, including during daytime naps. ?While taking prescription pain medicines, sleeping medicines, or medicines that make you drowsy. If you smoke, do not smoke without supervision. Keep all follow-up visits as told by your health care provider. This is important. Contact a health care provider if: You keep feeling nauseous or you keep vomiting. You feel light-headed. You develop a rash. You have a fever. Get help right away if: You have trouble breathing. Summary For several hours after your procedure, you may feel sleepy and have poor judgment. Have a responsible adult stay with you for at least 24 hours or until you are awake and alert. This information is not intended to replace advice given to you by your health care provider. Make sure you discuss any questions you have with your health care provider. Document Released: 12/21/2016 Document Revised: 11/29/2018 Document Reviewed: 12/21/2016 [employer] Patient Education 2020 [employer]. Follow Up Care 02/24/2025 12:34:13 With:DAVIS ORDONEZ MD Address: [address] [facility] [facility] [address] [address] [place] [phone] When: Unknown [facility] 06-16-2025 Note Discharge Instructions Thank you for allowing [facility] to assist you with your healthcare needs. The following is importantdischarge information regarding your hospital visit. Your Care Team LEXUS RIVERA DO What to do next Scheduled Follow-Up Appointments Appointment Type When With Where Contact Information StatusPC Office Procedure OMT 02/28/2025 09:30AM EDT LEXUS RIVERA DO [address] [phone] Confirmed PC OV 04/04/2025 11:00 AM EDT LEXUS RIVERA DO [address] [phone] Confirmed PC Office Procedure OMT 05/09/2025 08:30 AM EDT LEXUS RIVERA DO [address] [phone] Confirmed PC Wellness Medicare 05/23/2025 09:00 AM EDT LEXUS RIVERA DO [address] [phone] Confirmed PC Office Procedure OMT 06/13/2025 09:30 AM EDT LEXUS RIVERA DO [address] [phone] Confirmed PC Office Procedure OMT 07/11/2025 08:30 AM EDT LEXUS RIVERA DO [address] [phone] Confirmed Follow Up Appointments Follow Up with DAVIS ORDONEZ MD Where:[address] [place] [phone] Allergies metFORMIN (Moderate) dairrhea Medications Please ask your primary doctor or pharmacist before taking any other medication not listed, including over the counter drugs, herbal medications, vitamins and or supplements as they may interact withyour home medications. What How Much When Why Instructions Last Dose Unchanged albuterol-ipratropium (albuterol-ipratropium 2.5 mg-0.5 mg/ 3 mL inhalation solution) 3 Milliliter by inhalation Four (4) times a day as needed for dyspnea, wheezing Duration: 30 Days Unchanged DME (Nebulizer (Compressor)) See instructions COPD mixed type dx J44.9 nebulizer with mask/ pipe and tubing Unchanged nitroGLYcerin (nitroglycerin 0.4 mg sublingual tablet) 1 tab(s) under the tongue Every 5 minutes as needed for for chest pain Unchanged pregabalin (pregabalin 150 mg oral capsule) 1 cap by mouth Two (2) times a day Diabetic peripheral neuropathy Duration: 30 Days Unchanged warfarin (warfarin 2 mg oral tablet) 1 tab(s) by mouth Once a day Duration: 90 Days Please take this list to your next doctor s visit. Bring all medications you take, including over the counter medications, herbals and other supplements with you to your doctor s visit. Patients and families are reminded to discard old lists and to update any records with all medication providers or retail pharmacies. Education Materials Esophagogastroduodenoscopy This is an endoscopic procedure (a procedure that uses a device like a flexible telescope) that allows your caregiver to view the upper stomach and small bowel. This test allows your caregiver to look at the esophagus. The esophagus carries food from your mouth to your stomach. They can also look at your duodenum. This is the first part of the small intestine that attaches to the stomach. This rocky t is used to detect problems in the bowel such as ulcers and inflammation. MEANING OF TEST Your caregiver will go over the test results with you and discuss the importance and meaning of your results, as well as treatment options and the need for additional tests if necessary. OBTAINING THE TEST RESULTS Your caregiver s office will call you with the results of the test. POST SEDATION INSTRUCTIONS Rest at home today. Since your coordination may be impaired, be cautious on stairways, do not drive any vehicle or operate any heavy machinery, or use any sharp instruments for the remainder of the day. Do not drink any alcoholic beverages or make any major decisions for 24 hours. POST PROCEDURE INSTRUCTIONS Progress slowly with full liquids then resume previous diet and medications. Belching or passing of gas is to be expected. Notify the physician if you have severe chest pain, fever, or if difficulty when swallowing persists. 11/22/13 Custom Monitored Anesthesia Care, Care After These instructions provide you with information about caring for yourself after your procedure. Your health care provider may also give you more specific instructions. Your treatment has been plannedaccording to current medical practices, but problems sometimes occur. Call your health care provider if you have any problems or questions after your procedure. What can I expect after the procedure? After your procedure, you may: Feel sleepy for several hours. Feel clumsy and have poor balance for several hours. Feel forgetful about what happened after the procedure. Have poor judgment for several hours. Feel nauseous or vomit. Have a sore throat if you had a breathing tube during the procedure. Follow these instructions at home: For at least 24 hours after the procedure: Have a responsible adult stay with you. It is important to have someone help care for you until youare awake and alert. Rest as needed. Do not: ? Participate in activities in which you could fall or become injured. ? Drive. ? Use heavy machinery. ? Drink alcohol. ? Take sleeping pills or medicines that cause drowsiness. ? Make important decisions or sign legal documents. ? Take care of children on your own. Eating and drinking Follow the diet that is recommended by your health care provider. If you vomit, drink water, juice, or soup when you can drink without vomiting. Make sure you have little or no nausea before eating solid foods. General instructions Take nfip-gjt-ezlewtu and prescription medicines only as told by your health care provider. If you have sleep apnea, surgery and certain medicines can increase your risk for breathing problems. Follow instructions from your health care provider about wearing your sleep device: ? Anytime you are sleeping, including during daytime naps. ? While taking prescription pain medicines, sleeping medicines, or medicines that make you drowsy. If you smoke, do not smoke without supervision. Keep all follow-up visits as told by your health care provider. This is important. Contact a health care provider if: You keep feeling nauseous or you keep vomiting. You feel light-headed. You develop a rash. You have a fever. Get help right away if: You have trouble breathing. Summary For several hours after your procedure, you may feel sleepy and have poor judgment. Have a responsible adult stay with you for at least 24 hours or until you are awake and alert. This information is not intended to replace advice given to you by your health care provider. Make sure you discuss any questions you have with your health care provider. Document Released: 12/21/2016 Document Revised: 11/29/2018 Document Reviewed: 12/21/2016 [employer] Patient Education 2020 [employer] Additional Information VACCINATE! IT SAVES LIVES! Members of the community who have not yet received the COVID-19 vaccine and would like to receive it can visit one of [facility] vaccine clinics. There are many vaccine clinic locations within the [facility]. For locations and available times, please visit https://gettheshot.coronavirus.[place].gov/. It is important to note that some COVID mobile vaccine clinics are held outdoors and may be canceled in rainy or stormy conditions. To learn more about pediatric vaccinations (ages 5-11), we invite you to visit the [facility] webpage. https://www.[facility].org/pages/4803-Thlve-Zepdxmvtfsf-Xnyqprdrhf-Wcxfp-Jxo stions.htmlTo learn more about the COVID-19 vaccine, we invite you to visit the CDC website for a list of frequently asked questions.https://www.cdc.gov/coronavirus/2019-ncov/vaccines/faq.html [employer] Patient Portal Access Instructions: Stay connected with your healthcare team and access your personal medical information anytime with the [employer] Patient Portal. Please follow the directions below to create your [employer] account: 1.Access the email account you provided upon registration to the hospital/physician office.2.Look for an invitation email from [facility].3.Open the email and access the invitation link: AcceptInvitation to [employer].4.Fill in the required gross to create your account. To access your account, visit [employer]. Click the blue button labeled Access Patient Portal and then log in with the username and password that you created in the steps above. You will be able to view your test results, lab results, a summary of your visits, upcoming appointments and more. There is also a convenient messaging option where you can send secure messages to your p rovider. In addition, you will have the ability to download any documents or summaries to your computer and/or send the information securely to a physician. Remember that your healthcare information is confidential, so carefully consider who you will allowto register on the [facility] for access to your information. You can also access the [facility] Patient Portal on the [facility] beth. Simply click on Patient Portal and then log into your account. If you would like to receive a full copy of your medical records, please contact the [facility] Medical Records Department by calling [phone], Thursday through Thursday between 8 a.m. and 4:30 p.m. HOW TO SAFELY DISPOSE OF PRESCRIPTION MEDICATIONS Please use one of the following methods to safely dispose of your unused medications. 1.Use a drug disposal kit: the drug disposal pouch allows you to safely discard your old and unuseddrugs. Ask your nurse to give you one when you are discharged.2.Visit a local take-back location: Many local pharmacies and police departments have programs that collect old and unwanted prescriptiondrugs. Call your local pharmacy or go to http://[email or web address]/7H4Od0z to find one close to you.3.Make use of household items: Use cat litter or old coffee grounds to dispose medications if other options arenot available. Mix your drugs with these household products, seal them in an airtight container andthrow it into the garbage. Call [facility]: [phone] to be sure your drugs can be disposed of in this way. Some medicines may require a different approach.4.Never flush your medications down the toilet. IF YOU HAVE BEEN PRESCRIBED AN OPIOID FOR PAIN If you have been prescribed an opioid (such as hydrocodone, oxycodone or morphine), it is critical to understand the possible side effects and risks of opioid pain medications. Even when taken as directed, opioids can have several side effects including: Tolerance, meaning you might need to take more of a medication for the same pain relief. Nausea, vomiting and/or constipation. Sleepiness, dizziness, dry mouth, confusion, depression or itching. Physical dependence, meaning you have withdrawal symptoms when a medication is stopped, can develop within a few days. KNOW YOUR RESPONSIBILITIES It is important to know exactly how much and how often to take the opioid pain medications you are prescribed. Never take opioids in higher amounts or more often than prescribed. Do not combine opioids with alcohol or other drugs that cause drowsiness, such as benzodiazepines, also known as benzos, including diazepam and alprazolam, muscle relaxants or sleep aids. Never sell or share prescription opioids. This is illegal. Store opioids in a secure place and out of reach of others (including children, family, friends and visitors). The last page of this document has been signed and retained as a CHART COPY. Signatures Patient Education Materials 9 - AO Minor Esophagogastroduodenoscopy (11/25) (CUSTOM) Monitored Anesthesia Care, Care After Medication Leaflets My discharge plan and instructions have been reviewed and explained to me and I,TYRELL REYES understand my current condition and have read and understand these discharge instructions. I have received a written copy of the plan/instructions. If I have questions, I am aware that I should contactmy doctor. Patient/General Labor Signature: Date/Time: Relationship to Patient: Witness Name/Signature: Date/Time: 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 The endoscope was passed direct visitation down to the esophagus at 15 cm in the cricopharyngeus the stricture was noted. Guidewire was placed down the channel of the endoscope and placed down the esophagus out into the stomach. The scope could be gently pushed over the guidewire and advanced down the esophagus into the stomach where the PEG tube was noted. Duodenum was unremarkable. Scope was withdrawn off of the guidewire. 10 mm dilator was passed with little or no resistance 12 millimeter dilator was passed with little orno resistance. At 14 mm there was some slight resistance noted and then a 15 mm dilator was passed w ith more resistance noted. This was felt to be sufficient for today's session the endoscope was reintroduced back down into the esophagus. A break in the mucosa in the cricopharyngeal area.minor bleeding noted the remaining esophagus was unremarkable the patient tolerated the procedure well. Post-Procedure Exam EGD with guidewire dilatation Findings Stricture in the proximal esophagus Complications None apparent Total Time Approximately 20 minutes Assessment/Plan Orders: Lactated Ringers Infusion 1000 mL(LR 1000 mL), 1000 mL, Intravenous Sodium Chloride 0.9% intravenous solution 1,000 mL(Normal Saline 1,000 mL), 1000 mL, Intravenous Bedrest, 02/27/25 10:15:00 EDT, Strict, continuous, Constant order, Lying on side until alert or asordered Bedrest, 02/27/25 10:15:00 EDT, Strict, continuous, Constant order, Lying on side until alert or asordered Call Parameters, 02/27/25 10:15:00 EDT, Notify for vomiting, severe pain, signs of bleeding, severeabdominal pain, distention or rigidity, Constant order Communication Order (scheduled), 02/27/25 8:20:00 EDT, Once, 02/27/25 8:20:00 EDT, Pathology TissueRequest Communication Order (scheduled), 02/27/25 8:20:00 EDT, Once, 02/27/25 8:20:00 EDT, Urine Test or waiver for women of child bearing age Communication Order (scheduled), 02/27/25 8:20:00 EDT, Once, 02/27/25 8:20:00 EDT, Fasting Blood Sugar priot to procedure of patient is diabetic Diet Order, 02/27/25 10:15:00 EDT, Start Meal: Next meal, Clear Liquid Diet, Post exam or after gagreflex returns if EGD, Constant Order, : N/A, : N/A Discharge, 02/27/25 8:20:00 EDT, Discharged to: Home, when able to ambulate and after being seen byphysician Discharge Activity, NO activity restrictions, 02/27/25 10:15:00 EDT Discharge Diet, Follow the post-operative/post-procedure diet instructions provided by your physician's office., 02/27/25 10:15:00 EDT Discharge Wound Care, Follow the post-operative/post-procedure wound care instructions provided by your physician's office., 02/27/25 10:15:00 EDT Post Procedure Assessment, 02/27/25 10:15:00 EDT, Stop Date 02/27/25 10:15:00 EDT, [facility] in [facility] until Ivone Score of 12 or Preprocedure Sign Consent, 02/27/25 8:20:00 EDT, Once, For EGD Vital Signs, 02/27/25 10:15:00 EDT, q15min, 1 hour(s), 02/27/25 11:00:00 EDT Vital Signs, 02/27/25 10:15:00 EDT, q30min, 1 hour(s), 02/27/25 11:00:00 EDT Vital Signs PRN, 02/27/25 10:15:00 EDT, PRN order Follow Up/Recommendation Repeated dilatation in 1 week may continue to take a PPI daily Digitally Signed by DAVIS ORDONEZ MD on 02/27/2025 10:[address] [facility]06-16-[facility]25 Anesthesiology Consult note Patient: TYRELL REYES Age: 74 years Sex: Male : 1950 Associated Diagnoses: None Author: KIERRA FLANAGAN APRN-SUPERVISOR NURSE Preoperative Information Time of last food or liquid consumption: 02/27/2025 00:00:00 Anesthesia history Patient's history: negative. Family's history: negative. Review of Systems Ear/Nose/Mouth/Throat: Negative. Respiratory: Cough, Sleep apnea, fr smoker, maarijuana smoker. Cardiovascular: anemia, a fib, hx CVA, LVH. Gastrointestinal: Negative. Genitourinary: BPH. Endocrine: DM. Musculoskeletal: Negative. Integumentary: Negative. Neurologic: Negative. Health Status Allergies: Allergic Reactions (Selected) Moderate MetFORMIN- Dairrhea., Allergies (1) ActiveSeverityReaction metFORMINModeratedairrhea Current medications: (Selected) Inpatient Medications Ordered LR 1000 mL: 50 mL/hr, Intravenous Normal Saline 1,000 mL: 20 mL/hr, Intravenous Prescriptions Prescribed Nebulizer (Compressor): See Instructions, dx J44.9 nebulizer with mask/pipe and tubing, 1 EA, 0 Refill(s) albuterol-ipratropium 2.5 mg-0.5 mg/3 mL inhalation solution: 3 mL, Inhalation, QID, for 30 day(s),PRN: dyspnea, wheezing, 360 mL, 5 Refill(s) nitroglycerin 0.4 mg sublingual tablet: 0.4 mg, 1 tab(s), Sublingual, q5min, PRN: for chest pain, 25 tab(s), 0 Refill(s) pregabalin 150 mg oral capsule: 150 mg, 1 cap(s), Oral, BID, for 30 day(s), 60 cap(s), 2 Refill(s) warfarin 2 mg oral tablet: 2 mg, 1 tab(s), Oral, qDay, for 90 day(s), 90 tab(s), 3 Refill(s), Medications (2) Active Scheduled: (0) Continuous: (2) Lactated Ringers Infusion 1000 mL 1,000 mL, Intravenous, 50 mL/hr NS (0.9% nacl) 1,000 mL 1,000 mL, Intravenous, 20 mL/hr PRN: (0) Problem list: Medical Abnormal lung sounds / SNOMED CT 5070822457 / Confirmed Actinic keratosis / SNOMED CT 7281156816 / Confirmed Acute cholecystitis / SNOMED CT 066654966 / Confirmed Anemia / SNOMED CT 422845200 / Confirmed Blood loss anemia / SNOMED CT 4377147899 / Confirmed Anticoagulated on Coumadin / SNOMED CT 02473432 / Confirmed Atrial fibrillation / SNOMED CT 54635392 / Confirmed BPH without urinary obstruction / SNOMED CT 9240135453 / Confirmed Biceps tendonitis on right / SNOMED CT 044773624 / Confirmed BMI 30.0-30.9,adult / SNOMED CT 612819389 / Confirmed Thrush / SNOMED CT 519628697 / Confirmed Chronic diastolic heart failure with preserved ejection fraction / SNOMED CT 2815005970 / Confirmed Stage 3b chronic kidney disease (CKD) / SNOMED CT 9493078164 / Confirmed Chronic low back pain / SNOMED CT 821078026 / Confirmed Coronary atherosclerosis / SNOMED CT 9204346993 / Confirmed Cough / SNOMED CT 04066775 / Confirmed Diabetes mellitus with hyperglycemia / SNOMED CT 264881470 / Confirmed Diabetes mellitus with microalbuminuria / SNOMED CT 027648319 / Confirmed Diabetic peripheral neuropathy / SNOMED CT 8185351167 / Confirmed Diarrhea / SNOMED CT 772181102 / Confirmed Diabetic nephropathy / SNOMED CT 9446625751 / Confirmed Dry skin / SNOMED CT 25255107 / Confirmed Eustachian tube dysfunction / SNOMED CT 23201936 / Confirmed Leg edema / SNOMED CT 695973396 / Confirmed Former smoker / SNOMED CT 13098718 / Confirmed Exposure to COVID-19 virus / SNOMED CT 6727029074 / Confirmed Fatigue / SNOMED CT 116281741 / Confirmed Grief / SNOMED CT 845627108 / Confirmed S/P cholecystectomy / SNOMED CT 4589406663 / Confirmed History of lacunar cerebrovascular accident (CVA) / SNOMED CT 9868800006 / Confirmed S/P percutaneous endoscopic gastrostomy (PEG) tube placement / SNOMED CT 7187141087 / Confirmed Hypercoagulable state due to atrial fibrillation / SNOMED CT 1954323513 / Confirmed Hypertension associated with diabetes / SNOMED CT 6786937484 / Confirmed 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 / SNOMED CT 768851210 / Confirmed LVH (left ventricular hypertrophy) due to hypertensive disease / SNOMED CT 3214168325 / Confirmed Incisional hernia / SNOMED CT 020734438 / Confirmed Tendinitis of right infraspinatus tendon / SNOMED CT 640022760 / Confirmed Intermittent claudication / SNOMED CT 018759938 / Confirmed LVH (left ventricular hypertrophy) / SNOMED CT 49511537 / Confirmed Skin lesion of face / SNOMED CT 7126121836 / Confirmed Lightheaded / SNOMED CT 1660742954 / Confirmed Hair loss / SNOMED CT 985697491 / Confirmed Low back pain / SNOMED CT 794809180 / Confirmed Marijuana use / SNOMED CT 0315438943 / Confirmed Tongue mass / SNOMED CT 3883466456 / Confirmed Immunization declined / SNOMED CT 4140140055 / Confirmed Immunization refused / SNOMED CT 0291035131 / Confirmed Melena / SNOMED CT 0645111 / Confirmed Microalbuminuria / SNOMED CT 611564581 / Confirmed Neoplasm of uncertain behavior / SNOMED CT 962278455 / Confirmed Obese / SNOMED CT 2616629122 / Confirmed Obstructive sleep apnea / SNOMED CT 802590992 / Confirmed Osteoarthritis of lumbar spine / SNOMED CT 573001114 / Confirmed Osteoporosis screening / SNOMED CT 026150219 / Confirmed Prostate cancer screening / SNOMED CT 601471562 / Confirmed Medicare annual wellness visit, subsequent / SNOMED CT 124266773 / Confirmed Screening for glaucoma / SNOMED CT 810496082 / Confirmed PVD (peripheral vascular disease) / SNOMED CT 0633060116 / Confirmed Skin mole / SNOMED CT 973423504 / Confirmed Hospital discharge follow-up / SNOMED CT 3643502179 / Confirmed Screening due / SNOMED CT 801710814 / Confirmed Seasonal affective disorder / SNOMED CT 317430494 / Confirmed Seborrheic keratoses / SNOMED CT 2910260142 / Confirmed Segmental and somatic dysfunction of lumbar region / SNOMED CT 797443839 / Confirmed Segmental and somatic dysfunction of thoracic region / SNOMED CT 963908197 / Confirmed Segmental and somatic dysfunction of rib cage / SNOMED CT 513509420 / Confirmed Segmental and somatic dysfunction of cervical region / SNOMED CT 561646027 / Confirmed Segmental and somatic dysfunction of sacral region / SNOMED CT 625759571 / Confirmed Segmental and somatic dysfunction of pelvic region / SNOMED CT 327145438 / Confirmed Segmental and somatic dysfunction of lower extremity / SNOMED CT 280146836 / Confirmed Segmental and somatic dysfunction of upper extremity / SNOMED CT 265187615 / Confirmed Right shoulder pain / SNOMED CT 67513015 / Confirmed Somatic dysfunction of lower extremity / SNOMED CT 5313609673 / Confirmed Squamous cell carcinoma of epiglottis / SNOMED CT 0290745851 / Confirmed Odynophagia / SNOMED CT 601236001 / Confirmed Swelling of right foot / SNOMED CT 4685550850 / Confirmed Skin tear of right lower leg without complication / SNOMED CT 2120677792 / Confirmed Telangiectasia / SNOMED CT 073148653 / Confirmed Transient cerebral ischemia / SNOMED CT 983721490 / Confirmed Type 2 diabetes mellitus with hyperlipidemia / SNOMED CT 340537780 / Confirmed Upper GI bleed / SNOMED CT 72553516 / Confirmed Ventricular premature complexes / SNOMED CT 852535987 / Confirmed Verruca vulgaris / SNOMED CT 73788122 / Confirmed Need for hepatitis C screening test / SNOMED CT 575536188 / Confirmed, Active Problems (85) Abnormal lung sounds Actinic keratosis Acute cholecystitis Anemia Anticoagulated on Coumadin Atrial fibrillation Biceps tendonitis on right Blood loss anemia BMI 30.0-30.9,adult BPH without urinary obstruction Chronic diastolic heart failure with preserved ejection fraction Chronic low back pain Coronary atherosclerosis Cough Diabetes mellitus with hyperglycemia Diabetes mellitus with microalbuminuria Diabetic nephropathy Diabetic peripheral neuropathy Diarrhea Dry skin Eustachian tube dysfunction Exposure to COVID-19 virus Fatigue Former smoker GI bleed Grief Hair loss History of lacunar cerebrovascular accident (CVA) Hospital discharge follow-up Hypercoagulable state due to atrial fibrillation Hypertension associated with diabetes 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 Immunization declined Immunization refused Incisional hernia Intermittent claudication Leg edema Lightheaded Low back pain LVH (left ventricular hypertrophy) LVH (left ventricular hypertrophy) due to hypertensive disease Marijuana use Medicare annual wellness visit, subsequent Melena Microalbuminuria Need for hepatitis C screening test Neoplasm of uncertain behavior Obese Obstructive sleep apnea Odynophagia Osteoarthritis of lumbar spine Osteoporosis screening Prostate cancer screening PVD (peripheral vascular disease) Right shoulder pain S/P cholecystectomy S/P percutaneous endoscopic gastrostomy (PEG) tube placement Screening due Screening for glaucoma Seasonal affective disorder Seborrheic keratoses Segmental and somatic dysfunction of cervical region Segmental and somatic dysfunction of lower extremity Segmental and somatic dysfunction of lumbar region Segmental and somatic dysfunction of pelvic region Segmental and somatic dysfunction of rib cage Segmental and somatic dysfunction of sacral region Segmental and somatic dysfunction of thoracic region Segmental and somatic dysfunction of upper extremity Skin lesion of face Skin mole Skin tear of right lower leg without complication Somatic dysfunction of lower extremity Squamous cell carcinoma of epiglottis Stage 3b chronic kidney disease (CKD) Swelling of right foot Telangiectasia Tendinitis of right infraspinatus tendon Thrush Tongue mass Transient cerebral ischemia Type 2 diabetes mellitus with hyperlipidemia Upper GI bleed Ventricular premature complexes Verruca vulgaris Histories Past Medical History: No active or resolved past medical history items have been selected or recorded. Family History: Hypertension Mother Procedure history: Vascular Surgery ([id number]) on 11/12/2016 at 65 Years. Comments: 04/13/2019 15:34 Falguni Davenport LPN bilateral legs Heart Surgery ([id number]) on 01/25/2016 at 65 Years. Comments: 04/13/2019 15:30 Falguni Davenport LPN one stent Colonoscopy ([id number]) on 12/28/2015 at 65 Years. Comments: 04/13/2019 15:35 Falguni Davenport LPN normal, repeat 10 years Circumcision ([id number]) on 02/19/2011 at 60 Years. Mastectomy ([id number]) on 03/16/2002 at 51 Years. Comments: 04/13/2019 15:35 Falguni Davenport LPN left, subtotal Lumpectomy ([id number]). Comments: 04/13/2019 15:30 Falguni Davenport LPN bilateral Esophagogastroduodenoscopy (620953315). Insertion of feeding tube into duodenum (1167358249). Cholecystectomy (59540005). Social History: Social & Psychosocial Habits Alcohol 02/27/2025 Use: Past Type: Liquor Frequency: 3-5 times per week Comment: 1 - 3 oz whiskey - 11/02/2019 08:30 - ERI Rainey; hasn't since Thursday - 10/09/2020 09:17 - Laury Murillo LPN Substance Abuse 02/27/2025 Use: Current Type: Marijuana Frequency: Daily Comment: 1-2 times daily - 11/02/2019 08:30 - ERI Rainey; hasn't since Thursday - 10/09/2020 09:17 - Laury Murillo LPN Tobacco 02/27/2025 Tobacco Use: Former smoker, quit more Type: Cigarettes Number of years: 30 Stopped at age: 44 Years Home/Environment 02/27/2025 Living situation: Home with assistance Other risks in environment: no smoke exposure Domestic Concerns None 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 Automatic Dispenser Mechanic: Self, Lives In 1st floor bedroom Current Home Treatments Blood Glucose monitoring, CPAP, Nebulizer treatments, Tube feeding Special Services and Community Resources None Spouse Name Jillian Marital Status of Patient if Patient Independent Adult: Nutrition/Health 02/27/2025 Type of diet: juvena feeding tube supplement Appetite Good Eating Difficulties Swallowing Enteral Feedings Yes TPN Feedings No Skin Breakdown/Decubitus Ulcers No Physical Examination Vital Signs 02/27/2025 8:26 EDT Temperature Temporal Artery 36.5 DegC Apical Heart Rate 71 bpm Peripheral Pulse Rate 70 bpm Respiratory Rate 17 br/min Systolic Blood Pressure Non-Invasive 151 mmHg HI Diastolic Blood Pressure Non-Invasive 62 mmHg Vital Signs (last 24 hrs) Last Charted Temp Wsiohezi35.5 DegC (FEB 27 08:) Heart Rate Sy[place]os78 bpm (FEB 27 08:) SBPH 151 mmHg (FEB 27 08:) DBP62 mmHg (FEB 27:) BMI23.54 (FEB 27:) Measurements from flowsheet : Measurements 02/27/2025 8:26 EDT Height 170.2 cm Admission Weight 68.2 kg Weight Method Stated [place] Body Weight 66.12 kg BSA Admission 1.79 Body Mass Index 23.54 kg/m2 Pain assessment: Pain Assessment 02/27/2025 8:26 EDT Primary Pain Intensity 0 Pain Scale Type 0-10 Pain scale . General: Alert and oriented. Airway: Normal temporomandibular joint mobility. Mallampati classification: II (soft palate, fauces, uvula visible). Head: Normocephalic. Dentition Evaluation: Dentures, lower, Dentures, upper. Neck: Supple. Respiratory: diminished. Cardiovascular: a fib. Heart Sounds: Normal. Gastrointestinal: Soft. Musculoskeletal Normal range of motion. Integumentary: Intact. Neurologic: Alert, Oriented. Review / Management Results review: No qualifying data available , Lab results 02/27/2025 8:40 EDT Sodium Chloride 0.9% Begin Bag 1,000 mL mL 02/27/2025 8:37 EDT Hand Right 02/27/2025 22 gauge Peripheral IV Activity: Insert new site Peripheral IV Dressing Condition: Clean, Dry, Intact Peripheral IV Dressing Activity: Applied, Transparent dressing Peripheral IV Line Status/Patency: Flushes easily, Continuous infusion Peripheral IV Site Condition: No complications Peripheral IV Equipment: Extension set Peripheral IV Number of Attempts: 1 02/27/2025 8:33 EDT IV Present Present Allergies Yes Anesthesia Extension Set Applied Yes Step Finisher On Yes Consent Form Signed Yes Patient Dressed In Hospital gown History & Physical Update On Chart Yes History & Physical On Chart Yes Belongings At Bedside Pants, Shirt, Shoes, Socks, Wallet NPO Status Maintained Allergy Band on and Verified Yes Patient ID Band on and Verified Yes Implants Verified Yes Pacemaker/AICD Verified Yes Site Verified by Patient/Family Yes Anesthesia Consent Signed Yes Last Fluid Intake 02/26/2025 22:00 Last Food Intake 02/26/2025 22:00 02/27/2025 8:26 EDT Designated Person #1 We May Share SHIRA Reyes [phone] Designated Person #1 Relationship Spouse Privacy Restrictions Requested None Height 170.2 cm Admission Weight 68.2 kg Weight Method Stated [place] Body Weight 66.12 kg BSA Admission 1.79 Body Mass Index 23.54 kg/m2 Temperature Temporal Artery 36.5 DegC Apical Heart Rate 71 bpm Peripheral Pulse Rate 70 bpm Respiratory Rate 17 br/min Systolic Blood Pressure Non-Invasive 151 mmHg HI Diastolic Blood Pressure Non-Invasive 62 mmHg Primary Pain Intensity 0 Pain Scale Type 0-10 Pain scale Respirations Unlabored Respiratory Pattern Regular All Lobes Breath Sounds Clear Oxygen Therapy Room air Oxygen Saturation 99 % Abdomen Description Non-distended Status N/A Skin Description [place] Skin Temperature Warm Skin Integrity Intact Skin Moisture General Dry Neurological Symptoms Tingling Extremity Movement Equal Characteristics of Speech Clear Level of Consciousness Alert Strength All Extremities Strong Sensation All Extremities Intact Affect/Behavior Appropriate, Calm, Cooperative Orientation Oriented x 4 Sensory Deficits None Infectious Disease Symptoms Patient states no symptoms Infectious Disease Recent Exposure No Alcohol and Drug Use No Employee of Institutional Living No Health Care Employee No History of Exposure to TB No History of Positive Chest X-Ray for TB No History of Positive TB Skin Test No Homeless No Known Immunosuppression No Recent Immigrant No Resident of Institutional Living No Bloody Sputum No Fatigue No Fever No Loss of Appetite No Night Sweats No Persistent Cough > 3 Weeks No Weight Loss No Ivone Motor (2) Moves 4 extremities voluntarily or on command Ivone Respirations (2) Spontaneous respiration without support, RR > 10 Ivone Blood Pressure (2) BP 20% above or below preanesthetic level Ivone Pulse (2) Pulse 20% above or below preanesthetic level Ivone Oxygen Saturation (2) 94% or more Ivone Level of Consciousness (2) Fully awake Ivone III Score 12 Orientation Assessment Oriented x 4 Barriers to Learning None evident Teaching Method Explanation, Printed materials Preferred Spoken Language Bangladeshi Preferred Written Language Bangladeshi Patient's Current Physicians Patient's Current Physicians Discharge To, Anticipated Home independently Assistive Device Cane Positioning Repositions self Standard Safety ID band on, Allergy Band on, Call device within reach, Bed in low position, Visitorat bedside Prev Test Positive/Diagnosis w/COVID-19 No Current Quarantine/Isolated any Illness No Any Contact with Sick Animals/Birds No Traveled Anywhere in Last 30 Days No N/A Personal Devices, Patient Valuables Dentures, upper, Hearing aid, left, Hearing aid, right Admission Note-Nursing Procedure/Therapy Intake . Assessment and Plan [place] [employer]esthesi[employer] (ASA) physical status classification: Class III. Anesthetic Preoperative Plan Anesthetic technique: MAC. Postoperative pain management: Per surgeon. Informed consent: signed by patient. Digitally Signed by KIERRA FLANAGAN APRN-KEON on 02/27/2025 09:[address] [facility]06-13-2025 Evaluation + Plan noteExtracted from: Title:Clinical Document Author:DAVIS ORDONEZ Date:02/24/25 [place] ADMISSION HISTORY AN D PHYSICIAL CHIEF COMPLAINT: HISTORY OF PRESENT ILLNESS: REVIEW OF SYSTEMS: ACTIVE PROBLEMS: (85) Abnormal lung sounds (1192265258) Actinic keratosis (8224771903) Acute cholecystitis (043268968) Anemia (967817626) Anticoagulated on Coumadin (59382243) Atrial fibrillation (20011252) Biceps tendonitis on right (217309920) Blood loss anemia (9024399723) BMI 30.0-30.9,adult (888861299) BPH without urinary obstruction (1765354312) Chronic diastolic heart failure with preserved ejection fraction (1545131144) Chronic low back pain (217398696) Coronary atherosclerosis (0750675224) Cough (49534721) Diabetes mellitus with hyperglycemia (780870880) Diabetes mellitus with microalbuminuria (334716233) Diabetic nephropathy (4162720825) Diabetic peripheral neuropathy (4899429178) Diarrhea (845851813) Dry skin (15632173) Eustachian tube dysfunction (90356047) Exposure to COVID-19 virus (4045203135) Fatigue (110642931) Former smoker (22443081) GI bleed (062001969) Grief (896302181) Hair loss (770947561) History of lacunar cerebrovascular accident (CVA) (1032451777) Hospital discharge follow-up (4493857447) Hypercoagulable state due to atrial fibrillation (5282596630) Hypertension associated with diabetes (1100069163) 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 (763569115) Immunization declined (6759760749) Immunization refused (8110595928) Incisional hernia (253587199) Intermittent claudication (586549522) Leg edema (037111482) Lightheaded (0979701591) Low back pain (050728032) LVH (left ventricular hypertrophy) (74075809) LVH (left ventricular hypertrophy) due to hypertensive disease (2918946303) Marijuana use (7472574437) Medicare annual wellness visit, subsequent (307828878) Melena (7233448) Microalbuminuria (052391589) Need for hepatitis C screening test (518837234) Neoplasm of uncertain behavior (475009164) Obese (9001427054) Obstructive sleep apnea (990520530) Odynophagia (173713034) Osteoarthritis of lumbar spine (436823156) Osteoporosis screening (145796621) Prostate cancer screening (631364985) PVD (peripheral vascular disease) (6232520235) Right shoulder pain (23582569) S/P cholecystectomy (3816441643) S/P percutaneous endoscopic gastrostomy (PEG) tube placement (0971124307) Screening due (247433183) Screening for glaucoma (430991649) Seasonal affective disorder (822533902) Seborrheic keratoses (7554764536) Segmental and somatic dysfunction of cervical region (757333089) Segmental and somatic dysfunction of lower extremity (191108312) Segmental and somatic dysfunction of lumbar region (427043602) Segmental and somatic dysfunction of pelvic region (143187240) Segmental and somatic dysfunction of rib cage (697074467) Segmental and somatic dysfunction of sacral region (544957743) Segmental and somatic dysfunction of thoracic region (146570493) Segmental and somatic dysfunction of upper extremity (601203032) Skin lesion of face (5650999923) Skin mole (859715030) Skin tear of right lower leg without complication (4431813302) Somatic dysfunction of lower extremity (7972695963) 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) Stage 3b chronic kidney disease (CKD) (4910377507) Swelling of right foot (6067053949) Telangiectasia (892885927) Tendinitis of right infraspinatus tendon (430189307) Thrush (591750630) Tongue mass (0658414424) Transient cerebral ischemia (457572614) Type 2 diabetes mellitus with hyperlipidemia (389812787) Upper GI bleed (50757900) Ventricular premature complexes (108495731) Verruca vulgaris (17589930) MEDICATIONS: Active Inpt Meds: None Active PRN Meds: None One Time Meds: (Completed) glycopyrrolate (glycopyrrolate (ANES)) IV Push, Once, Stop: 02/24/25 10:47:00 EDT (Completed) lidocaine (Xylocaine 2% 5 mL syringe (ANES) (ANES)) IV Push, Once, Stop: 02/24/25 11:04:00 EDT (Completed) propofol (propofol (ANES)) IV Push, Once, Stop: 02/24/25 11:04:00 EDT Active IV Meds: Lactated Ringers Infusion 1,000 mL (LR 1,000 mL) Start: 02/24/25 8:22:00 EDT, Rate: 50 mL/hr, 02/24/25 8:22:00 EDT ALLERGIES: (1) metFORMIN FAMILY HISTORY: SOCIAL HISTORY: PHYSICAL EXAM: VITALS: OzfjvbMdsgQAPixrbWYSlG6OCE4IktfOg(kg) 02/24 11:00----68--100--02/24 68.2 02/24 10:55----70--100-- 02/24 10:50----78--100-- 02/24 10:45----75--100-- 02/24 08:4736.1--348018ON 24 Hr Tmax: 36.1 at 02/24 08:47 36 Hr Tmax: 36.1 at 02/24 08:47 Vital Signs are the last 5 in the past 48 hours. Weights display the last 5 within 7 days. Initial Wt: 02/24 68.2 kg 150 lb Current Wt: 02/24 68.2 kg 150 lb GENERAL: HEENT: CARDIOVASCULAR: RESPIRATORY: ABDOMEN: EXREMETIES: NEUROLOGICAL: PSYCHIATRIC: LABS: 36hr Labs 02/24 0859 Blood Glucose, Gznsbghfh87 Blood Glucose, Jcfbbroxu67 02/24 0845 Pglpwva60.5 PT International Ratio1.2 DIAGNOSTICS: IMPRESSION: PLAN: History and Physical Update I have examined the patient; reviewed the H&P and there are no changes to the H&P unless noted below. Future Appointments Appointment Date:02/28/2025 09:30:00 AM Scheduled Provider:LEXUS RIVERA DO Location:[facility] Appointment Type:PC Office Procedure OMT Appointment Date:04/04/2025 11:00:00 AM Scheduled Provider:LEXUS RIVERA DO Location:[facility] Appointment Type:PC OV Appointment Date:05/09/2025 08:30:00 AM Scheduled Provider:LEXUS RIVERA DO Location:[facility] Appointment Type:PC Office Procedure OMT Appointment Date:05/23/2025 09:00:00 AM Scheduled Provider:LEXUS RIVERA DO Location:[facility] Appointment Type:PC Wellness Medicare Appointment Date:06/13/2025 09:30:00 AM Scheduled Provider:LEXUS RIVERA DO Location:[facility] Appointment Type:PC Office Procedure OMT Appointment Date:07/11/2025 08:30:00 AM Scheduled Provider:LEXUS RIVERA DO Location:[facility] Appointment Type:PC Office Procedure OMT Future Scheduled Tests Radiology* XR Shoulder Minimum 2 Views Right 11/29/24 [facility] 06-13-2025 Hospital Discharge instructions Patient Education 02/24/2025 11:18:16 Monitored Anesthesia Care, Care After Monitored Anesthesia Care, Care After These instructions provide you with information about caring for yourself after your procedure. Your health care provider may also give you more specific instructions. Your treatment has been plannedaccording to current medical practices, but problems sometimes occur. Call your health care provider if you have any problems or questions after your procedure. What can I expect after the procedure? After your procedure, you may: Feel sleepy for several hours. Feel clumsy and have poor balance for several hours. Feel forgetful about what happened after the procedure. Have poor judgment for several hours. Feel nauseous or vomit. Have a sore throat if you had a breathing tube during the procedure. Follow these instructions at home: For at least 24 hours after the procedure: Have a responsible adult stay with you. It is important to have someone help care for you until youare awake and alert. Rest as needed. Do not: ?Participate in activities in which you could fall or become injured. ?Drive. ?Use heavy machinery. ?Drink alcohol. ?Take sleeping pills or medicines that cause drowsiness. ?Make important decisions or sign legal documents. ?Take care of children on your own. Eating and drinking Follow the diet that is recommended by your health care provider. If you vomit, drink water, juice, or soup when you can drink without vomiting. Make sure you have little or no nausea before eating solid foods. General instructions Take vubf-xpg-aglfhjl and prescription medicines only as told by your health care provider. If you have sleep apnea, surgery and certain medicines can increase your risk for breathing problems. Follow instructions from your health care provider about wearing your sleep device: ?Anytime you are sleeping, including during daytime naps. ?While taking prescription pain medicines, sleeping medicines, or medicines that make you drowsy. If you smoke, do not smoke without supervision. Keep all follow-up visits as told by your health care provider. This is important. Contact a health care provider if: You keep feeling nauseous or you keep vomiting. You feel light-headed. You develop a rash. You have a fever. Get help right away if: You have trouble breathing. Summary For several hours after your procedure, you may feel sleepy and have poor judgment. Have a responsible adult stay with you for at least 24 hours or until you are awake and alert. This information is not intended to replace advice given to you by your health care provider. Make sure you discuss any questions you have with your health care provider. Document Released: 12/21/2016 Document Revised: 11/29/2018 Document Reviewed: 12/21/2016 [employer] Patient Education 2020 [place]. 02/24/2025 11:18:12 9 - AO Minor Esophagogastroduodenoscopy (11/25) (CUSTOM) Esophagogastroduodenoscopy This is an endoscopic procedure (a procedure that uses a device like a flexible telescope) that allows your caregiver to view the upper stomach and small bowel. This test allows your caregiver to look at the esophagus. The esophagus carries food from your mouth to your stomach. They can also look at your duodenum. This is the first part of the small intestine that attaches to the stomach. This rocky t is used to detect problems in the bowel such as ulcers and inflammation. MEANING OF TEST Your caregiver will go over the test results with you and discuss the importance and meaning of your results, as well as treatment options and the need for additional tests if necessary. OBTAINING THE TEST RESULTS Your caregiver s office will call you with the results of the test. POST SEDATION INSTRUCTIONS Rest at home today. Since your coordination may be impaired, be cautious on stairways, do not drive any vehicle or operate any heavy machinery, or use any sharp instruments for the remainder of the day. Do not drink any alcoholic beverages or make any major decisions for 24 hours. POST PROCEDURE INSTRUCTIONS Progress slowly with full liquids then resume previous diet and medications. Belching or passing of gas is to be expected. Notify the physician if you have severe chest pain, fever, or if difficulty when swallowing persists. 11/22/13 Custom Follow Up Care 02/20/2025 13:17:39 With:DAVIS ORDONEZ Address: [address] [place] [address] [phone] Business (1) When: Unknown [facility] 06-13-2025 Note* Exam Date Time Procedure Performing Provider Status 02/24/25 11:47 AM XR Fluoro < 1Hr Tech Time Modified [id number] ORIGINAL Images acquired, not reported on this accession number. [facility]06-13-2025 Note Discharge Instructions Thank you for allowing [facility] to assist you with your healthcare needs. The following is importantdischarge information regarding your hospital visit. Your Care Team LEXUS RIVERA DO What to do next Scheduled Follow-Up Appointments Appointment Type When With Where Contact Information StatusPC Office Procedure OMT 02/28/2025 09:30AM EDT LEXUS RIVERA DO [address] [address] Confirmed PC OV 04/04/2025 11:00 AM EDT LEXUS RIVERA [address] [address] Confirmed PC Office Procedure OMT 05/09/2025 08:30 AM EDT LEXUS RIVERA DO [address] [address] Confirmed PC Wellness Medicare 05/23/2025 09:00 AM EDT LEXUS RIVERA [address] [address] Confirmed PC Office Procedure OMT 06/13/2025 09:30 AM EDT LEXUS RIVERA [address] [address] Confirmed PC Office Procedure OMT 07/11/2025 08:30 AM EDT LEXUS RIVERA [address] [address] Confirmed Follow Up Appointments Follow Up with DAVIS ORDONEZ Where:[address] [place] [phone] [phone] Business (1) Allergies metFORMIN (Moderate) dairrhea Medications Please ask your primary doctor or pharmacist before taking any other medication not listed, including over the counter drugs, herbal medications, vitamins and or supplements as they may interact withyour home medications. What How Much When Why Instructions Last Dose Unchanged albuterol-ipratropium (albuterol-ipratropium 2.5 mg-0.5 mg/ 3 mL inhalation solution) 3 Milliliter by inhalation Four (4) times a day as needed for dyspnea, wheezing Duration: 30 Days Unchanged DME (Nebulizer (Compressor)) See instructions COPD mixed type dx J44.9 nebulizer with mask/ pipe and tubing Unchanged nitroGLYcerin (nitroglycerin 0.4 mg sublingual tablet) 1 tab(s) under the tongue Every 5 minutes as needed for for chest pain Unchanged pregabalin (pregabalin 150 mg oral capsule) 1 cap by mouth Two (2) times a day Diabetic peripheral neuropathy Duration: 30 Days Unchanged warfarin (warfarin 2 mg oral tablet) 1 tab(s) by mouth Once a day Duration: 90 Days Please take this list to your next doctor s visit. Bring all medications you take, including over the counter medications, herbals and other supplements with you to your doctor s visit. Patients and families are reminded to discard old lists and to update any records with all medication providers or retail pharmacies. Education Materials Monitored Anesthesia Care, Care After These instructions provide you with information about caring for yourself after your procedure. Your health care provider may also give you more specific instructions. Your treatment has been plannedaccording to current medical practices, but problems sometimes occur. Call your health care provider if you have any problems or questions after your procedure. What can I expect after the procedure? After your procedure, you may: Feel sleepy for several hours. Feel clumsy and have poor balance for several hours. Feel forgetful about what happened after the procedure. Have poor judgment for several hours. Feel nauseous or vomit. Have a sore throat if you had a breathing tube during the procedure. Follow these instructions at home: For at least 24 hours after the procedure: Have a responsible adult stay with you. It is important to have someone help care for you until youare awake and alert. Rest as needed. Do not: ? Participate in activities in which you could fall or become injured. ? Drive. ? Use heavy machinery. ? Drink alcohol. ? Take sleeping pills or medicines that cause drowsiness. ? Make important decisions or sign legal documents. ? Take care of children on your own. Eating and drinking Follow the diet that is recommended by your health care provider. If you vomit, drink water, juice, or soup when you can drink without vomiting. Make sure you have little or no nausea before eating solid foods. General instructions Take bkim-tzi-wadihnl and prescription medicines only as told by your health care provider. If you have sleep apnea, surgery and certain medicines can increase your risk for breathing problems. Follow instructions from your health care provider about wearing your sleep device: ? Anytime you are sleeping, including during daytime naps. ? While taking prescription pain medicines, sleeping medicines, or medicines that make you drowsy. If you smoke, do not smoke without supervision. Keep all follow-up visits as told by your health care provider. This is important. Contact a health care provider if: You keep feeling nauseous or you keep vomiting. You feel light-headed. You develop a rash. You have a fever. Get help right away if: You have trouble breathing. Summary For several hours after your procedure, you may feel sleepy and have poor judgment. Have a responsible adult stay with you for at least 24 hours or until you are awake and alert. This information is not intended to replace advice given to you by your health care provider. Make sure you discuss any questions you have with your health care provider. Document Released: 12/21/2016 Document Revised: 11/29/2018 Document Reviewed: 12/21/2016 [employer] Patient Education 2020 [place]. Esophagogastroduodenoscopy This is an endoscopic procedure (a procedure that uses a device like a flexible telescope) that allows your caregiver to view the upper stomach and small bowel. This test allows your caregiver to look at the esophagus. The esophagus carries food from your mouth to your stomach. They can also look at your duodenum. This is the first part of the small intestine that attaches to the stomach. This rocky t is used to detect problems in the bowel such as ulcers and inflammation. MEANING OF TEST Your caregiver will go over the test results with you and discuss the importance and meaning of your results, as well as treatment options and the need for additional tests if necessary. OBTAINING THE TEST RESULTS Your caregiver s office will call you with the results of the test. POST SEDATION INSTRUCTIONS Rest at home today. Since your coordination may be impaired, be cautious on stairways, do not drive any vehicle or operate any heavy machinery, or use any sharp instruments for the remainder of the day. Do not drink any alcoholic beverages or make any major decisions for 24 hours. POST PROCEDURE INSTRUCTIONS Progress slowly with full liquids then resume previous diet and medications. Belching or passing of gas is to be expected. Notify the physician if you have severe chest pain, fever, or if difficulty when swallowing persists. 11/22/13 Custom Additional Information VACCINATE! IT SAVES LIVES! Members of the community who have not yet received the COVID-19 vaccine and would like to receive it can visit one of [facility] vaccine clinics. There are many vaccine clinic locations within the [facility]. For locations and available times, please visit https://gettheshot.coronavirus.[place].gov/. It is important to note that some COVID mobile vaccine clinics are held outdoors and may be canceled in rainy or stormy conditions. To learn more about pediatric vaccinations (ages 5-11), we invite you to visit the [facility] webpage. https://www.[employer].org/pages/3942-Hdvci-Anisfeocpdm-Vwxiwmvoud-Dggtl-Yqp stions.htmlTo learn more about the COVID-19 vaccine, we invite you to visit the CDC website for a list of frequently asked questions.https://www.cdc.gov/coronavirus/2019-ncov/vaccines/faq.html [employer] Patient Portal Access Instructions: Stay connected with your healthcare team and access your personal medical information anytime with the [employer] Patient Portal. Please follow the directions below to create your [employer] account: 1.Access the email account you provided upon registration to the hospital/physician office.2.Look for an invitation email from [facility].3.Open the email and access the invitation link: AcceptInvitation to [employer].4.Fill in the required gross to create your account. To access your account, visit [employer]. Click the blue button labeled Access Patient Portal and then log in with the username and password that you created in the steps above. You will be able to view your test results, lab results, a summary of your visits, upcoming appointments and more. There is also a convenient messaging option where you can send secure messages to your p rovider. In addition, you will have the ability to download any documents or summaries to your computer and/or send the information securely to a physician. Remember that your healthcare information is confidential, so carefully consider who you will allowto register on the [employer] Patient Portal for access to your information. You can also access the [employer] Patient Portal on the [employer]. Simply click on Patient Portal and then log into your account. If you would like to receive a full copy of your medical records, please contact the [facility] Medical Records Department by calling [phone], Thursday through Thursday between 8 a.m. and 4:30 p.m. HOW TO SAFELY DISPOSE OF PRESCRIPTION MEDICATIONS Please use one of the following methods to safely dispose of your unused medications. 1.Use a drug disposal kit: the drug disposal pouch allows you to safely discard your old and unuseddrugs. Ask your nurse to give you one when you are discharged.2.Visit a local take-back location: Many local pharmacies and police departments have programs that collect old and unwanted prescriptiondrugs. Call your local pharmacy or go to http://[employer]/5B1Yd9c to find one close to you.3.Make use of household items: Use cat litter or old coffee grounds to dispose medications if other options arenot available. Mix your drugs with these household products, seal them in an airtight container andthrow it into the garbage. Call [facility]: [phone] to be sure your drugs can be disposed of in this way. Some medicines may require a different approach.4.Never flush your medications down the toilet. IF YOU HAVE BEEN PRESCRIBED AN OPIOID FOR PAIN If you have been prescribed an opioid (such as hydrocodone, oxycodone or morphine), it is critical to understand the possible side effects and risks of opioid pain medications. Even when taken as directed, opioids can have several side effects including: Tolerance, meaning you might need to take more of a medication for the same pain relief. Nausea, vomiting and/or constipation. Sleepiness, dizziness, dry mouth, confusion, depression or itching. Physical dependence, meaning you have withdrawal symptoms when a medication is stopped, can develop within a few days. KNOW YOUR RESPONSIBILITIES It is important to know exactly how much and how often to take the opioid pain medications you are prescribed. Never take opioids in higher amounts or more often than prescribed. Do not combine opioids with alcohol or other drugs that cause drowsiness, such as benzodiazepines, also known as benzos, including diazepam and alprazolam, muscle relaxants or sleep aids. Never sell or share prescription opioids. This is illegal. Store opioids in a secure place and out of reach of others (including children, family, friends and visitors). The last page of this document has been signed and retained as a CHART COPY. Signatures Patient Education Materials Monitored Anesthesia Care, Care After 9 - AO Minor Esophagogastroduodenoscopy (11/25) (CUSTOM) Medication Leaflets My discharge plan and instructions have been reviewed and explained to me and I,TYRELL REYES understand my current condition and have read and understand these discharge instructions. I have received a written copy of the plan/instructions. If I have questions, I am aware that I should contactmy doctor. Patient/General Labor Signature: Date/Time: Relationship to Patient: Witness Name/Signature: Date/Time: [facility]06-13-2025 Note Date of Service 02/24/2025 Procedure Name EGD with guidewire dilatation using multiple dilators Consent Taken before procedure Indication Dysphagia with abnormal esophagram Location Location Pre-Procedure Exam Aphasia with abnormal esophagram Procedural Sedation Anesthesia provided a MAC Technique Patient was brought to the Endo suite and placed left shoulder down. A pediatric upper endoscope was selected and this was able to be passed down to the stricture into the esophagus. Was insufflated there were no ulcerations there was some erythema to the gastric mucosa tube was noted and was unremarkable. Flexion performed showed no abnormalities near the cardia. This point a guidewire was placed down the channel of the endoscope and the guidewire was placed into the distal portion of the stomach. 15 mm dilator was passed over the guidewire with little or no resistance a 21 mm dilator was passed with little to no resistance. 24 mm dilator was passed and 27 mm dilators were passed with no resistance noted. 30 mm dilator was passed there was some slight resistance noted. 33 mm dilator was passed and this was more resistance noted this was felt to be sufficient for today. The pediatric endoscope was then passed down into the esophagus there was some small breaks in the mucosa in the cricopharyngeal area. The esophagus was unremarkable. The endoscope was withdrawn and the patient tolerated the procedure well. Post-Procedure Exam EGD with guidewire dilatation using multiple size dilators. 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 Complications None apparent Total Time Approximately 25 minutes Assessment/Plan Orders: Lactated Ringers Infusion 1,000 mL(LR 1,000 mL), 1000 mL, Intravenous Bedrest, 02/24/25 11:09:00 EDT, Strict, continuous, Constant order, Lying on side until alert or asordered Bedrest, 02/24/25 11:09:00 EDT, Strict, continuous, Constant order, Lying on side until alert or asordered Call Parameters, 02/24/25 11:09:00 EDT, Notify for vomiting, severe pain, signs of bleeding, severeabdominal pain, distention or rigidity, Constant order Communication Order (scheduled), 02/24/25 8:22:00 EDT, Once, 02/24/25 8:22:00 EDT, Pathology TissueRequest Communication Order (scheduled), 02/24/25 8:22:00 EDT, Once, 02/24/25 8:22:00 EDT, Fasting Blood Sugar priot to procedure of patient is diabetic Consult to Anesthesia, 02/24/25 8:22:00 EDT, *Other (specify in special instructions), Provide Anesthesia during Procedure Diet Order, 02/24/25 11:09:00 EDT, Start Meal: Next meal, Clear Liquid Diet, Post exam or after gagreflex returns if EGD, Constant Order, : N/A, : N/A Discharge, 02/24/25 8:22:00 EDT, Discharged to: Home, when able to ambulate and after being seen byphysician Discharge Activity, NO activity restrictions, 02/24/25 11:09:00 EDT Discharge Diet, Follow the post-operative/post-procedure diet instructions provided by your physician's office., 02/24/25 11:09:00 EDT Discharge Wound Care, Follow the post-operative/post-procedure wound care instructions provided by your physician's office., 02/24/25 11:09:00 EDT IV Catheter Insertion/Care(Peripheral IV Insertion/Care), 02/24/25 8:22:00 EDT, IV Care: q4h, Rotate when clinically indicated & q7day drsg change NPO for Procedure, 02/24/25 8:22:00 EDT, Constant Order Post Procedure Assessment, 02/24/25 11:09:00 EDT, Stop Date 02/24/25 11:09:00 EDT, [facility] in [facility] Recovery Room until Ivone Score of 12 or Preprocedure Sign Consent, 02/24/25 8:22:00 EDT, Once, For EGD Vital Signs, 02/24/25 11:09:00 EDT, q15min, 1 hour(s), 02/24/25 12:00:00 EDT Vital Signs, 02/24/25 11:09:00 EDT, q30min, 1 hour(s), 02/24/25 12:00:00 EDT Vital Signs PRN, 02/24/25 11:09:00 EDT, PRN order Follow Up/Recommendation Soft diet and repeated dilatation within 2 weeks Digitally Signed by DAVIS ORDONEZ MD on 02/24/2025 11:[address] [facility]06-13-2025 Note [place] ADMISSION HISTORY AND PHYSICIAL CHIEF COMPLAINT: HISTORY OF PRESENT ILLNESS: REVIEW OF SYSTEMS: ACTIVE PROBLEMS: (85) Abnormal lung sounds (1462871136) Actinic keratosis (8105679990) Acute cholecystitis (295989210) Anemia (531588976) Anticoagulated on Coumadin (30949175) Atrial fibrillation (53511243) Biceps tendonitis on right (509595607) Blood loss anemia (7084249534) BMI 30.0-30.9,adult (644337389) BPH without urinary obstruction (2185095231) Chronic diastolic heart failure with preserved ejection fraction (7681833021) Chronic low back pain (629759802) Coronary atherosclerosis (2173435650) Cough (93660229) Diabetes mellitus with hyperglycemia (774228944) Diabetes mellitus with microalbuminuria (001268195) Diabetic nephropathy (2410772207) Diabetic peripheral neuropathy (0756688618) Diarrhea (015482880) Dry skin (52786652) Eustachian tube dysfunction (41802855) Exposure to COVID-19 virus (2081408922) Fatigue (749123877) Former smoker (30598392) GI bleed (826865974) Grief (592383721) Hair loss (384569094) History of lacunar cerebrovascular accident (CVA) (7832565094) Hospital discharge follow-up (5193336700) Hypercoagulable state due to atrial fibrillation (6812385646) Hypertension associated with diabetes (8940699985) 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 (510227304) Immunization declined (9861093554) Immunization refused (8420709539) Incisional hernia (809677885) Intermittent claudication (248804460) Leg edema (725188760) Lightheaded (1628780641) Low back pain (666210213) LVH (left ventricular hypertrophy) (12635671) LVH (left ventricular hypertrophy) due to hypertensive disease (4958317958) Marijuana use (8060973127) Medicare annual wellness visit, subsequent (340369834) Melena (3757345) Microalbuminuria (380208538) Need for hepatitis C screening test (768090906) Neoplasm of uncertain behavior (342289734) Obese (0325854230) Obstructive sleep apnea (852106719) Odynophagia (180618482) Osteoarthritis of lumbar spine (962381332) Osteoporosis screening (745719661) Prostate cancer screening (932916234) PVD (peripheral vascular disease) (1905959553) Right shoulder pain (98599230) S/P cholecystectomy (5765169369) S/P percutaneous endoscopic gastrostomy (PEG) tube placement (2983497978) Screening due (121168295) Screening for glaucoma (882268594) Seasonal affective disorder (638724489) Seborrheic keratoses (3707598014) Segmental and somatic dysfunction of cervical region (185917847) Segmental and somatic dysfunction of lower extremity (867560048) Segmental and somatic dysfunction of lumbar region (702006460) Segmental and somatic dysfunction of pelvic region (492421112) Segmental and somatic dysfunction of rib cage (947227322) Segmental and somatic dysfunction of sacral region (790626596) Segmental and somatic dysfunction of thoracic region (777983247) Segmental and somatic dysfunction of upper extremity (695733867) Skin lesion of face (7379829408) Skin mole (146054963) Skin tear of right lower leg without complication (3236738839) Somatic dysfunction of lower extremity (0266296511) 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) Stage 3b chronic kidney disease (CKD) (9391985452) Swelling of right foot (4481281418) Telangiectasia (741078776) Tendinitis of right infraspinatus tendon (912012771) Thrush (313527549) Tongue mass (4650025710) Transient cerebral ischemia (023141088) Type 2 diabetes mellitus with hyperlipidemia (548241655) Upper GI bleed (42483432) Ventricular premature complexes (057788350) Verruca vulgaris (80635255) MEDICATIONS: Active Inpt Meds: None Active PRN Meds: None One Time Meds: (Completed) glycopyrrolate (glycopyrrolate (ANES)) IV Push, Once, Stop: 02/24/25 10:47:00 EDT (Completed) lidocaine (Xylocaine 2% 5 mL syringe (ANES) (ANES)) IV Push, Once, Stop: 02/24/25 11:04:00 EDT (Completed) propofol (propofol (ANES)) IV Push, Once, Stop: 02/24/25 11:04:00 EDT Active IV Meds: Lactated Ringers Infusion 1,000 mL (LR 1,000 mL) Start: 02/24/25 8:22:00 EDT, Rate: 50 mL/hr, 02/24/25 8:22:00 EDT ALLERGIES: (1) metFORMIN FAMILY HISTORY: SOCIAL HISTORY: PHYSICAL EXAM: VITALS: FptjpfNfuiSFVtvrhVGYyF2EEA7EgloJo(kg) 02/24 11:00----68--100--02/24 68.2 02/24 10:55----70--100-- 02/24 10:50----78--100-- 02/24 10:45----75--100-- 02/24 08:4736.1--154654QL 24 Hr Tmax: 36.1 at 02/24 08:47 36 Hr Tmax: 36.1 at 02/24 08:47 Vital Signs are the last 5 in the past 48 hours. Weights display the last 5 within 7 days. Initial Wt: 02/24 68.2 kg 150 lb Current Wt: 02/24 68.2 kg 150 lb GENERAL: HEENT: CARDIOVASCULAR: RESPIRATORY: ABDOMEN: EXREMETIES: NEUROLOGICAL: PSYCHIATRIC: LABS: 36hr Labs 02/24 0859 Blood Glucose, Vtrsoqwoi16 Blood Glucose, Airdynoch97 02/24 0845 Iwtksoc33.5 PT International Ratio1.2 DIAGNOSTICS: IMPRESSION: PLAN: History and Physical Update I have examined the patient; reviewed the H&P and there are no changes to the H&P unless noted below. Digitally Signed by DAVIS ORDONEZ MD on 02/24/2025 11:[address] [facility]06-13-2025 Anesthesiology Consult note Patient: TYRELL REYES Age: 74 years Sex: Male : 1950 Associated Diagnoses: None Author: JAN ADAME APRN-SUPERVISOR NURSE Preoperative Information Anesthesia history Patient's history: negative. Family's history: negative. Health Status Allergies: Allergic Reactions (Selected) Moderate MetFORMIN- Dairrhea., Allergies (1) ActiveSeverityReaction metFORMINModeratedairrhea Current medications: (Selected) Inpatient Medications Ordered LR 1,000 mL: 50 mL/hr, Intravenous Prescriptions Prescribed Nebulizer (Compressor): See Instructions, dx J44.9 nebulizer with mask/pipe and tubing, 1 EA, 0 Refill(s) albuterol-ipratropium 2.5 mg-0.5 mg/3 mL inhalation solution: 3 mL, Inhalation, QID, for 30 day(s),PRN: dyspnea, wheezing, 360 mL, 5 Refill(s) nitroglycerin 0.4 mg sublingual tablet: 0.4 mg, 1 tab(s), Sublingual, q5min, PRN: for chest pain, 25 tab(s), 0 Refill(s) pregabalin 150 mg oral capsule: 150 mg, 1 cap(s), Oral, BID, for 30 day(s), 60 cap(s), 2 Refill(s) warfarin 2 mg oral tablet: 2 mg, 1 tab(s), Oral, qDay, for 90 day(s), 90 tab(s), 3 Refill(s), Medications (1) Active Scheduled: (0) Continuous: (1) Lactated Ringers Infusion 1,000 mL 1,000 mL, Intravenous, 50 mL/hr PRN: (0) Problem list: Medical Abnormal lung sounds / SNOMED CT 9632060686 / Confirmed Actinic keratosis / SNOMED CT 1013340807 / Confirmed Acute cholecystitis / SNOMED CT 297959236 / Confirmed Anemia / SNOMED CT 541656673 / Confirmed Blood loss anemia / SNOMED CT 0257023490 / Confirmed Anticoagulated on Coumadin / SNOMED CT 65901382 / Confirmed Atrial fibrillation / SNOMED CT 98582080 / Confirmed BPH without urinary obstruction / SNOMED CT 4902863530 / Confirmed Biceps tendonitis on right / SNOMED CT 027212908 / Confirmed BMI 30.0-30.9,adult / SNOMED CT 230015859 / Confirmed Thrush / SNOMED CT 485823403 / Confirmed Chronic diastolic heart failure with preserved ejection fraction / SNOMED CT 8993403690 / Confirmed Stage 3b chronic kidney disease (CKD) / SNOMED CT 5384427775 / Confirmed Chronic low back pain / SNOMED CT 023967552 / Confirmed Coronary atherosclerosis / SNOMED CT 3879616041 / Confirmed Cough / SNOMED CT 09768121 / Confirmed Diabetes mellitus with hyperglycemia / SNOMED CT 681495336 / Confirmed Diabetes mellitus with microalbuminuria / SNOMED CT 058030789 / Confirmed Diabetic peripheral neuropathy / SNOMED CT 3001131625 / Confirmed Diarrhea / SNOMED CT 920792603 / Confirmed Diabetic nephropathy / SNOMED CT 3022048848 / Confirmed Dry skin / SNOMED CT 65041994 / Confirmed Eustachian tube dysfunction / SNOMED CT 97776075 / Confirmed Leg edema / SNOMED CT 401143693 / Confirmed Former smoker / SNOMED CT 04301584 / Confirmed Exposure to COVID-19 virus / SNOMED CT 9088915748 / Confirmed Fatigue / SNOMED CT 405975182 / Confirmed Grief / SNOMED CT 065212361 / Confirmed S/P cholecystectomy / SNOMED CT 9061738729 / Confirmed History of lacunar cerebrovascular accident (CVA) / SNOMED CT 1434950057 / Confirmed S/P percutaneous endoscopic gastrostomy (PEG) tube placement / SNOMED CT 6083701455 / Confirmed Hypercoagulable state due to atrial fibrillation / SNOMED CT 2094617058 / Confirmed Hypertension associated with diabetes / SNOMED CT 0688908607 / Confirmed 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 / SNOMED CT 545449788 / Confirmed LVH (left ventricular hypertrophy) due to hypertensive disease / SNOMED CT 6482038681 / Confirmed Incisional hernia / SNOMED CT 573684087 / Confirmed Tendinitis of right infraspinatus tendon / SNOMED CT 179309692 / Confirmed Intermittent claudication / SNOMED CT 281973247 / Confirmed LVH (left ventricular hypertrophy) / SNOMED CT 14557093 / Confirmed Skin lesion of face / SNOMED CT 9436988517 / Confirmed Lightheaded / SNOMED CT 1687497353 / Confirmed Hair loss / SNOMED CT 453909487 / Confirmed Low back pain / SNOMED CT 381772929 / Confirmed Marijuana use / SNOMED CT 9714332358 / Confirmed Tongue mass / SNOMED CT 7595942379 / Confirmed Immunization declined / SNOMED CT 6506334181 / Confirmed Immunization refused / SNOMED CT 0791528635 / Confirmed Melena / SNOMED CT 1840813 / Confirmed Microalbuminuria / SNOMED CT 239431080 / Confirmed Neoplasm of uncertain behavior / SNOMED CT 904340756 / Confirmed Obese / SNOMED CT 1106104015 / Confirmed Obstructive sleep apnea / SNOMED CT 970235372 / Confirmed Osteoarthritis of lumbar spine / SNOMED CT 668711847 / Confirmed Osteoporosis screening / SNOMED CT 720718529 / Confirmed Prostate cancer screening / SNOMED CT 443944432 / Confirmed Medicare annual wellness visit, subsequent / SNOMED CT 601105456 / Confirmed Screening for glaucoma / SNOMED CT 941615429 / Confirmed PVD (peripheral vascular disease) / SNOMED CT 8699628542 / Confirmed Skin mole / SNOMED CT 280482146 / Confirmed Hospital discharge follow-up / SNOMED CT 4355884941 / Confirmed Screening due / SNOMED CT 967202502 / Confirmed Seasonal affective disorder / SNOMED CT 249881212 / Confirmed Seborrheic keratoses / SNOMED CT 4038446374 / Confirmed Segmental and somatic dysfunction of lumbar region / SNOMED CT 954261388 / Confirmed Segmental and somatic dysfunction of thoracic region / SNOMED CT 261464498 / Confirmed Segmental and somatic dysfunction of rib cage / SNOMED CT 601781074 / Confirmed Segmental and somatic dysfunction of cervical region / SNOMED CT 142613267 / Confirmed Segmental and somatic dysfunction of sacral region / SNOMED CT 853896305 / Confirmed Segmental and somatic dysfunction of pelvic region / SNOMED CT 585142470 / Confirmed Segmental and somatic dysfunction of lower extremity / SNOMED CT 558220508 / Confirmed Segmental and somatic dysfunction of upper extremity / SNOMED CT 384830292 / Confirmed Right shoulder pain / SNOMED CT 17679590 / Confirmed Somatic dysfunction of lower extremity / SNOMED CT 6993576991 / Confirmed Squamous cell carcinoma of epiglottis / SNOMED CT 5846867452 / Confirmed Odynophagia / SNOMED CT 170034222 / Confirmed Swelling of right foot / SNOMED CT 8720989856 / Confirmed Skin tear of right lower leg without complication / SNOMED CT 2168860259 / Confirmed Telangiectasia / SNOMED CT 912953458 / Confirmed Transient cerebral ischemia / SNOMED CT 523651989 / Confirmed Type 2 diabetes mellitus with hyperlipidemia / SNOMED CT 988559712 / Confirmed Upper GI bleed / SNOMED CT 74177607 / Confirmed Ventricular premature complexes / SNOMED CT 369799090 / Confirmed Verruca vulgaris / SNOMED CT 95625475 / Confirmed Need for hepatitis C screening test / SNOMED CT 135107487 / Confirmed, Active Problems (85) Abnormal lung sounds Actinic keratosis Acute cholecystitis Anemia Anticoagulated on Coumadin Atrial fibrillation Biceps tendonitis on right Blood loss anemia BMI 30.0-30.9,adult BPH without urinary obstruction Chronic diastolic heart failure with preserved ejection fraction Chronic low back pain Coronary atherosclerosis Cough Diabetes mellitus with hyperglycemia Diabetes mellitus with microalbuminuria Diabetic nephropathy Diabetic peripheral neuropathy Diarrhea Dry skin Eustachian tube dysfunction Exposure to COVID-19 virus Fatigue Former smoker GI bleed Grief Hair loss History of lacunar cerebrovascular accident (CVA) Hospital discharge follow-up Hypercoagulable state due to atrial fibrillation Hypertension associated with diabetes 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 Immunization declined Immunization refused Incisional hernia Intermittent claudication Leg edema Lightheaded Low back pain LVH (left ventricular hypertrophy) LVH (left ventricular hypertrophy) due to hypertensive disease Marijuana use Medicare annual wellness visit, subsequent Melena Microalbuminuria Need for hepatitis C screening test Neoplasm of uncertain behavior Obese Obstructive sleep apnea Odynophagia Osteoarthritis of lumbar spine Osteoporosis screening Prostate cancer screening PVD (peripheral vascular disease) Right shoulder pain S/P cholecystectomy S/P percutaneous endoscopic gastrostomy (PEG) tube placement Screening due Screening for glaucoma Seasonal affective disorder Seborrheic keratoses Segmental and somatic dysfunction of cervical region Segmental and somatic dysfunction of lower extremity Segmental and somatic dysfunction of lumbar region Segmental and somatic dysfunction of pelvic region Segmental and somatic dysfunction of rib cage Segmental and somatic dysfunction of sacral region Segmental and somatic dysfunction of thoracic region Segmental and somatic dysfunction of upper extremity Skin lesion of face Skin mole Skin tear of right lower leg without complication Somatic dysfunction of lower extremity Squamous cell carcinoma of epiglottis Stage 3b chronic kidney disease (CKD) Swelling of right foot Telangiectasia Tendinitis of right infraspinatus tendon Thrush Tongue mass Transient cerebral ischemia Type 2 diabetes mellitus with hyperlipidemia Upper GI bleed Ventricular premature complexes Verruca vulgaris Histories Past Medical History: No active or resolved past medical history items have been selected or recorded. Family History: Hypertension Mother Procedure history: Vascular Surgery ([id number]) on 11/12/2016 at 65 Years. Comments: 04/13/2019 15:34 Falguni Davenport LPN bilateral legs Heart Surgery ([id number]) on 01/25/2016 at 65 Years. Comments: 04/13/2019 15:30 Falguni Davenport LPN one stent Colonoscopy ([id number]) on 12/28/2015 at 65 Years. Comments: 04/13/2019 15:35 Falguni Davenport LPN normal, repeat 10 years Circumcision ([id number]) on 02/19/2011 at 60 Years. Mastectomy ([id number]) on 03/16/2002 at 51 Years. Comments: 04/13/2019 15:35 Falguni Davenport LPN left, subtotal Lumpectomy ([id number]). Comments: 04/13/2019 15:30 Falguni Davenport LPN bilateral Esophagogastroduodenoscopy (119178507). Insertion of feeding tube into duodenum ([id number]). Cholecystectomy (15459383). Social History: Social & Psychosocial Habits Alcohol 02/24/2025 Use: Past Type: Liquor Frequency: 3-5 times per week Comment: 1 - 3 oz whiskey - 11/02/2019 08:30 - Redd, ERI Childs; hasn't since Thursday - 10/09/2020 09:17 - Laury Murillo LPN Substance Abuse 02/24/2025 Use: Current Type: Marijuana Frequency: Daily Comment: 1-2 times daily - 11/02/2019 08:30 - Redd, ERI Childs; hasn't since Thursday - 10/09/2020 09:17 - Laury Murillo LPN Tobacco 02/24/2025 Tobacco Use: Former smoker, quit more Type: Cigarettes Number of years: 30 Stopped at age: 44 Years Home/Environment 02/24/2025 Living situation: Home with assistance Other risks in environment: no smoke exposure Domestic Concerns None Primary Automatic Dispenser Mechanic: Self, Lives In 1st floor bedroom Current Home Treatments Blood Glucose monitoring, CPAP, Nebulizer treatments, Tube feeding Special Services and Community Resources None Spouse Name Jillian Marital Status of Patient if Patient Independent Adult: Nutrition/Health 02/24/2025 Type of diet: juvena feeding tube supplement Appetite Good Eating Difficulties Swallowing Enteral Feedings Yes TPN Feedings No Skin Breakdown/Decubitus Ulcers No Physical Examination Vital Signs 02/24/2025 8:47 EDT Temperature Temporal Artery 36.1 DegC Apical Heart Rate 69 bpm Respiratory Rate 18 br/min Systolic Blood Pressure Non-Invasive 147 mmHg HI Diastolic Blood Pressure Non-Invasive 66 mmHg Vital Signs (last 24 hrs) Last Charted Temp Ygsjrzvd01.1 DegC (FEB 24 08:47) Heart Rate Mnyqeg80 bpm (FEB 24 08:47) SBPH 147 mmHg (FEB 24 08:47) DBP66 mmHg (FEB 24 08:47) BMI23.54 (FEB 24 08:47) Measurements from flowsheet : Measurements 02/24/2025 8:47 EDT Height 170.2 cm Admission Weight 68.2 kg Weight Method Stated [place] Body Weight 66.12 kg BSA Admission 1.79 Body Mass Index 23.54 kg/m2 Pain assessment: Pain Assessment 02/24/2025 8:47 EDT Primary Pain Intensity 0 Primary Pain Nonverbal Response Appears restful Pain Scale Type 0-10 Pain scale . General: Alert and oriented. Airway: Normal temporomandibular joint mobility. Mallampati classification: II (soft palate, fauces, uvula visible). Dentition Evaluation: Dentures, lower, Dentures, upper. Respiratory: Respirations are non-labored. Cardiovascular: Normal rate, Regular rhythm. Neurologic: Alert, Oriented. Review / Management Results review: Labs (Last four charted values) PT 13.5(FEB 24) INR 1.2(FEB 24) , Lab results 02/24/2025 8:59 EDT Blood Glucose, Capillary 82 mg/dL 02/24/2025 8:53 EDT Percutaneous endo gastrostomy (PEG) Abdominal wall Gastrointestinal Tube Activity: Assessed, Present on admission Gastrointestinal Tube Site Condition: No complications Antecubital Right 02/24/2025 22 gauge Peripheral IV Activity: Insert new site Peripheral IV Dressing Condition: Clean, Dry, Intact Peripheral IV Dressing Activity: Applied, Transparent dressing Peripheral IV Line Status/Patency: Continuous infusion, Good blood return Peripheral IV Site Condition: No complications 02/24/2025 8:49 EDT Urinary Elimination Voiding, no difficulties IV Present Present Allergies Yes Anesthesia Extension Set Applied Yes Step Finisher On Yes Consent Form Signed Yes Patient Dressed In Hospital gown History & Physical On Chart Yes Belongings At Bedside Dentures, upper, Hearing aid, left, Hearing aid, right, Shirt, Shoes, Shorts,Socks, Undergarments Personal Home Medications Received No home medications were brought in NPO Status Maintained, More than 8 hours Allergy Band on and Verified Yes Patient ID Band on and Verified Yes Implants Verified Yes Pacemaker/AICD Verified Yes Site Verified by Patient/Family Yes Blood Consent Signed No Last Fluid Intake 02/23/2025 22:00 Last Food Intake 02/23/2025 22:00 Last Void 02/24/2025 7:00 02/24/2025 8:47 EDT Designated Person #1 We May Share SHIRA Reyes [phone] Designated Person #1 Relationship Spouse Height 170.2 cm Admission Weight 68.2 kg Weight Method Stated [place] Body Weight 66.12 kg BSA Admission 1.79 Body Mass Index 23.54 kg/m2 Temperature Temporal Artery 36.1 DegC Apical Heart Rate 69 bpm Respiratory Rate 18 br/min Systolic Blood Pressure Non-Invasive 147 mmHg HI Diastolic Blood Pressure Non-Invasive 66 mmHg Primary Pain Intensity 0 Primary Pain Nonverbal Response Appears restful Pain Scale Type 0-10 Pain scale Monitor Alarms On and Limits Checked Heart Sounds ICU S1S2 Heart Rhythm Regular Cardiac Rhythm Sinus rhythm Monitoring Lead II Respirations Unlabored Respiratory Pattern Regular Breath Sounds Auscultated Anterior and posterior All Lobes Breath Sounds Clear Cough and Deep Breathe Done Oxygen Therapy Room air Oxygen Saturation 99 % Abdomen Description Soft, Rounded Bowel Sounds All Quadrants Present Status N/A Skin Description [place], Dry Skin Temperature Warm Skin Integrity Intact Skin Moisture General Dry Neurological Symptoms Numbness, Tingling Extremity Movement Equal Characteristics of Speech Clear, Hoarse Level of Consciousness Alert Strength All Extremities Strong, Moderate Tone All Extremities Normal Left Upper Extremity Sensation Intact Right Upper Extremity Sensation Intact Left Lower Extremity Sensation Numbness, Tingling Right Lower Extremity Sensation Numbness, Tingling Affect/Behavior Appropriate, Calm, Cooperative Orientation Oriented x 4 Sensory Deficits None Infectious Disease Symptoms Patient states no symptoms Infectious Disease Recent Exposure No Alcohol and Drug Use No Employee of Institutional Living No Health Care Employee No History of Exposure to TB No History of Positive Chest X-Ray for TB No History of Positive TB Skin Test No Homeless No Known Immunosuppression No Recent Immigrant No Resident of Institutional Living No Bloody Sputum No Fatigue No Fever No Loss of Appetite No Night Sweats No Persistent Cough > 3 Weeks No Weight Loss No Ivone Motor (2) Moves 4 extremities voluntarily or on command Ivone Respirations (2) Spontaneous respiration without support, RR > 10 Ivone Blood Pressure (2) BP 20% above or below preanesthetic level Ivone Pulse (2) Pulse 20% above or below preanesthetic level Ivone Oxygen Saturation (2) 94% or more Ivone Level of Consciousness (2) Fully awake Ivone III Score 12 Barriers to Learning None evident Teaching Method Explanation, Printed materials Preferred Spoken Language Bangladeshi Preferred Written Language Bangladeshi Patient's Current Physicians Patient's Current Physicians Discharge To, Anticipated Home with family care Assistive Device None Positioning Repositions self Mobility Assistance Level Independent Activity Status ADL Awake, Resting Standard Safety ID band on, Allergy Band on, Call device within reach, Bed in low position, Wheels locked, Upper/Half-Length side-rails up, Visitor at bedside, Non-Slip footwear Demonstrates Correct Call Light Use Yes Prev Test Positive/Diagnosis w/COVID-19 No Current Quarantine/Isolated any Illness No Any Contact with Sick Animals/Birds No Traveled Anywhere in Last 30 Days No Lactated Ringers Injection Begin Bag 1,000 mL mL N/A Personal Devices, Patient Valuables Dentures, upper, Hearing aid, left, Hearing aid, right Admission Note-Nursing Procedure/Therapy Intake 02/24/2025 8:45 EDT Protime 13.5 seconds PT International Ratio 1.2 NA . Assessment and Plan [place] [employer]hesi[employer] (ASA) physical status classification: Class IV. Anesthetic Preoperative Plan Anesthetic technique: MAC. Postoperative pain management: Per surgeon. Risks discussed: sore throat, serious complications. Informed consent: signed by patient. Digitally Signed by JAN ADAME on 02/24/2025 09:[address] [facility]06-04-2025 Evaluation note* Diagnosis Onset Date Resolution Status Admit Date Carcinoma of epiglottis acute J 2024 11:25am Mediastinal lymphadenopathy chronic February 15, 2025 11:25am Atherosclerosis of coronary artery 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 chronic March 02, 2025 8:59am Hyperlipidemia chronic March 02, 2025 8:59am Hypertension chronic March 02, 025 8:59am Paroxysmal atrial fibrillation chron ic March 02, 2025 8:59am Peripheral vascular occlusiv e disease chronic March 02, 2025 8:59am [facility] Work Phone: [phone] 920-652506-04-2025 Progress [facility] [address] [place] [address] OFFICE VISIT Date of Service: 02/15/251127 MR#: [id number] Acct: [id number] Name: TYRELL REYES Rep #: [id number] : 1950 From: Riki cunningham DO Age/Sex: 74/M [place] [facility] [place]: [place] Intake Vital Signs 11/14/24 14:16 01/02/25 13:19 02/15/25 11:35 02/15/25 11:38 Height 5 ft 7.5 in 5 ft 7.5 in 5 ft 7.5 in 5 ft 7.5 in Weight: 152 lb 2 oz BMI 23.4 BP 144/76 H Blood Pressure Location Rt brachial Position Sitting Respiration 18 Pulse 82 Pulse Source Monitor Temp 98.2 F Temperature Source Temporal Artery Pulse Oximetry (%) 97 Oxygen Delivery Method room air Intake Visit Reasons: 3 MONTH H/N, REVIEW SCANS Is patient in pain?: Yes (back pain ) Allergies Iodinated Contrast Media (iodine contrast) Adverse Reaction (Mild, Verified 02/15/25 11:34) Vomiting metformin Adverse Reaction (Verified 02/15/25 11:34) Nausea/Vom/Diarrhea Medications ?Medication ?Instructions ?Recorded ?Confirmed ?Type pregabalin 150 mg capsule 150 mg PO DAILY pain 6 02/15/25 History warfarin 1 mg tablet 2 mg PO DAILY 02/22/2402/15 History albuterol sulfate 90 mcg/actuation 2 puff inhalation Q 4 PRN wheezing 10/13/24 02/15/25 History aerosol inhaler Have you fallen in the past year?: No PFSH PFSH Medical History CPAP (continuous positive airway pressure) dependence Cancer Macular degeneration of right eye Carcinoma of epiglottis Smoker Wears hearing aid Wears dentures Alcohol use Ambulates with cane Neuropathy Back pain Blackout Difficulty swallowing Former smoker Shortness of breath on exertion Leg cramps History of edema Stroke/cerebrovascular accident History of atrial fibrillation History of echocardiogram History of stress test Cardiology follow-up encounter Chronic diastolic (congestive) heart failure Hypertension Acute on chronic diastolic (congestive) heart failure History of non-ST elevation myocardial infarction (NSTEMI) (11/02/19) Upper GI bleed (11/02/19) Paroxysmal atrial fibrillation History of CVA (cerebrovascular accident) (10/2015) Chronic renal failure Claudication Peripheral vascular occlusive disease Hyperlipidemia Atherosclerosis of coronary artery 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 Stenosis of left subclavian artery Anxiety and depression CKD (chronic kidney disease) DDD (degenerative disc disease) Marijuana use Narcolepsy Diabetic neuropathy Osteoarthritis Type 2 diabetes mellitus Lacunar infarct, acute Home Medications ?Medication ?Instructions ?Recorded ?Last Taken ?Type pregabalin 150 mg capsule 150 mg PO DAILY pain 6 10/12/20 22:00 History warfarin 1 mg tablet 2 mg PO DAILY 02/22/2410/30 History albuterol sulfate 90 mcg/actuation 2 puff inhalation Q 4 PRN wheezing 10/13/24 Unknown History aerosol inhaler Allergy/AdvReac Type Severity Reaction Status Date / Time Iodinated Contrast Media AdvReac Mild Vomiting Verified 02/15/25 11:34 (iodine contrast) metformin AdvReac Nausea/Vom/ Verified 02/15/25 11:34 Diarrhea Family History Brother Cancer lung Son Cancer Surgical History S/P percutaneous endoscopic gastrostomy (PEG) tube placement History of laryngoscopy History of cataract surgery History of colonoscopy History of cholecystectomy (~10/2020) History of left heart catheterization (11/13/04) History of angioplasty of peripheral vessel (09/2018) Social History Smoking Status: Former smoker quit date: 09/14/97 Tobacco: How many years used: 45 how long ago did patient quit smokin years ago alcohol intake: current alcohol intake frequency: 0-2 drinks per day Alcohol type: hard liquor substance use type: marijuana caffeine: Yes Type: carbonated beverages Number of servings: 1 Diagnosis: Tyrell Reyes is a 73-year-old male diagnosed with clinical stage NALINI (cT2 cN2cM0) 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 From 02/22/2024 ? 04/01/2024 he received definitive radiation. History of Present Illness: 12/24/2023: Patient was evaluated by ENT.? This demonstrated a mass on the laryngeal surface of the epiglottis.? No apparent abnormality noted within the glottis or subglottis. 01/07/2024: CT neck with contrast was performed.? This demonstrated a suggestion of thickening of the epiglottis especially of the midline and to the right side extending toward the AE fold on the right.? There is also some thickening of theposterior wall of the larynx on the right which could be inflammatory or neoplastic.? No evidence of adenopathy is appreciated.? No evidence of metastatic disease is seen. 01/18/2024: Patient underwent direct laryngoscopy with biopsy.? On examination there is an epiglotticmass extending to the right AE fold multiple biopsies were taken.? This demonstrated invasive moderately differentiated squamous cell carcinoma, p16 negative, Ki-67 > 90% 02/02/2024: PET scan showed increased FDG activity in the hypopharynx and left neck, no evidence of distant metastatic disease. From 02/22/2024 ? 04/01/2024: received definitive radiation therapy consisting of 6996 cGy delivered to the gross disease within the larynx and bilateral adenopathy, 5940 cGy delivered to the entire remaining larynx and bilateral neckand 5412 cGy to the high level 2 bilaterally and bilateral supraclavicular fossaall in 33 fractions. He was treated with a VMAT plan using 6 MV photons. He was treated6 fractions per week because he was not a candidate for chemotherapy. 06/21/2024: Patient completed PET scan. This demonstrated increased activity in the bilateral thoracic perihilar and with an SUV of 3.6 which is borderline for viable neoplasm. There has been intervalresolution of the laryngeal and neck activity suggesting good response to treatment. No evidence ofmetastatic disease. 10/04/2024: Patient completed PET scan. This demonstrated redefined increased glucose metabolism defined in the bilateral thoracic perihilar much now feels criteria for neoplasm at single-point technique. Tracer noted in the left lowerlung field does not fill quantitative criteria. Within the perihilar the SUV is5.1 compared to 3.6 on the prior. No other evidence of disease is noted. 11/04/2024: Patient completed bronchoscopy with EBUS and biopsy of 10R, 11R, 11L lymph node spaces.?Multiple biopsies taken from each area demonstrated no evidence of malignancy. 02/13/2025: Patient completed CT neck and chest with contrast. This demonstrated bilateral calcified erythematous plaques in the carotid arteries, mild emphysema, mild apical pleural-parenchymal thickening 4 mm thyroid nodule, 4.5 cm left simple renal cyst, 4 mm nodule in the right middle lobe. Radiation Treatment History: 1) From 02/22/2024 ? 04/01/2024: received definitive radiation therapy consisting of 6996 cGy delivered to the gross disease within the larynx and bilateral adenopathy, 5940 cGy delivered to the entireremaining larynx and bilateral neckand 5412 cGy to the high level 2 bilaterally and bilateral supraclavicular fossaall in 33 fractions. He was treated with a VMAT plan using 6 MV photons. He was treated 6 fractions per week because he was not a candidate for chemotherapy. Interval History: Patient presents for follow-up approximately 11 months after completing definitive radiation therapy. Clinically he is doing fairly well, he has however continued to struggle with swallowing, planning dilation with GI next week. Doing liquid PO and tube feeds, he reports weight being stable. Skin hashealed, some dryness and tanning. Has lymphedema which is not bothersome. Denies pain. Weight has remained stable. He reports persistent taste change which is manageable. Dry mouth has gradually improved, he is still doing biotene. Some worsened mucus. He denies cough, chest pain, bone pain. He doesreport some intermittent shortness of breath improved since his last visit, someenergy improvementas well. Denies N/V. He is able to complete ADLs without much difficulty. He denies having other problems or concerns at this time. Review of Systems: A 12-point review of systems was completed and was negative except for what is noted in the HPI/Interval History and by the nurse. Physical Exam: Weight: 152 lbs 2 oz ECO KARNOFSKY SCORE: 70% CONSTITUTIONAL: Well-developed, well-nourished, and in no apparent distress. HEENT: Mucous membranes fairly moist. No evidence of thrush or lesions within the visualized oropharynx or oral cavity. No trismus. Edentulous. Pupils are equal, round, and reactive to light and accommodation. Extraocular movements areintact. Sclerae are anicteric. NECK: Supple, no thyromegaly, and non-tender. Trachea midline. No cervical or supraclavicular adenopathy noted. Bilateral neck tanning with some dryness, no erythema or desquamation. Anterior neck lymphedema. CARDIAC: Regular rate and rhythm. Normal S1, S2. No murmurs, rubs, or gallops. PULMONARY/CHEST: Lungs are clear to auscultation and percussion bilaterally. No wheezes, rhonchi, or crackles noted. No increased work of breathing. PSYCHIATRIC: Appropriate mood and affect for the clinical situation. Imaging: As per HPI Laboratory Data: None Assessment & Plan Assessment/Plan (1) Mediastinal lymphadenopathy: (2) Carcinoma of epiglottis: PLAN: Plan Assessment: Tyrell Reyes is a 74-year-old male diagnosed with clinical stage NALINI (cT2 cN2cM0) 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 From 02/22/2024 ? 04/01/2024 he received definitive radiation. ? Plan: Patient presents for follow-up approximately 11 months after completing definitive radiation therapy. No evidence of disease on exam today. He has seen ENT in the last couple months and is getting scoped regularly and has had no evidence of disease. I reviewed the imaging findings from the CT neck and chest. Neck imaging is unremarkable, no evidence of recurrence, within the chest there does appear to be several very small pulmonary nodules within the right upper, right middle and right lower lobe, these were not readily apparent on prior imaging and will be followed closely with a repeat CT chest in 3 months. Too small for PET scan or biopsy. Has fairly extreme narrowing in the pharyngoesop hageal region and planning for stretching of this area by GI next week and then will work very closely with speech therapy to continue regaining swallowing function which had been progressively improving a few months ago. I will plan to have him return for routine follow-up in about [address] chest and he is instructed to call with any further questions or concerns in the interim. ? Thank you for allowing me to participate in the management and care of your patient. If I may answer any questions in the interim, please do not hesitate tocontact me at any time. ? Riki Lizama DO, MS Emergency Room Tech, Department of Radiation Oncology [facility] Coding Level of Care Code Off vis,est,level 3 Diagnoses Mediastinal lymphadenopathy R59.0 Carcinoma of epiglottis C32.1 02/15/25 1205 DO> Date _ Riki Lizama DO Cosigner Signature: Date (if applicable) CC: ~ [facility]06-03-2025 Radiology Diagnostic study note [facility] Imaging Services [address] [place] [address] Chest WITH Contrast MR#: [id number] Acct: [id number] Name: TYRELL REYES Rep #: [id number] : 1950 M 74 From: Keara Davis MD PCP: Dr. Lexus Rivera, DO Status: REG CLI Study:Chest WITH Contrast Date of Exam: 02/13/25 Exam# [id number] Ordering Dr: Riki Lizama DO PROCEDURE: CHEST WITH CONTRAST 02/13/2025 REASON FOR EXAM: H N CANCER, IMAGING TECHNIQUE: Prone and supine chest CT with intravenous contrast, high resolution CT (HRCT) protocol. Coronal and Sagittal reconstruction series were provided. CONTRAST: Isovue-350 VOLUME: 100 mL Gauge IV One or more dose reduction techniques were used (e.g., Automated exposure control, adjustment of the mA and/or kV according to patient size, use of iterative reconstruction technique). RADIATION DOSE SUMMARY: CTDlvol: 10.06 mGy DLP: 985 mGycm COMPARISON: No prior imaging is provided at the time of interpretation. FINDINGS: Bilateral apical pleural-parenchymal thickening. Mild bilateral basilar interstitial pulmonary thickening. 4 mm nodule in the right middle lobe. Percutaneous gastrostomy tube is in good position. Cholelithiasis without acute cholecystitis. 4.5 cm left renal simple cyst. Moderate coronary artery calcifications. Normal enhancement of the main pulmonary artery and right and left pulmonary arteries. Normal enhancement of the bilateral peripheral pulmonary arteries. There is no demonstrated pulmonary embolism. Mild atheromatous plaques of the thoracic aorta and visualized great vessels. There is no demonstrated aortic dissection. Normal heart and pericardium. Normal mediastinum. Normal hilar regions. Normal visualized trachea and bronchi. Normal pleura. Normal remaining visualized upper abdomen. CT/Chest WITH Contrast IMPRESSION: Coronary artery calcification (CAC) is is present Bilateral apical pleural-parenchymal thickening. Mild bilateral basilar interstitial pulmonary thickening. 4 mm nodule in the right middle lobe. Correlation with prior imaging is helpful. Otherwise six-month follow-up exam is suggested. Percutaneous gastrostomy tube is in good position. Cholelithiasis without acute cholecystitis. 4.5 cm left renal simple cyst. Moderate coronary artery calcifications. Reading Location: [place] [address] CC: Dr. Lexus Rivera DO; Dr. 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 Lexus Rivera DO Status: REG CLI Study:Soft Tissue Neck WITH Contrast Date of Exam: 02/13/25 Exam# [id number] Ordering Dr: Riki Lizama DO PROCEDURE: SOFT TISSUE NECK WITH CONTRAST 02/13/2025 REASON FOR EXAM: H N CANCER, TREATED TECHNIQUE: CT of the soft tissues of the neck from the orbits to the upper mediastinum withintravenous contrast. CONTRAST: Isovue-350 VOLUME: 100 mL Gauge IV One or more dose reduction techniques were used (e.g., Automated exposure control, adjustment of the mA and/or kV according to patient size, use of iterative reconstruction technique). RADIATION DOSE SUMMARY: CTDlvol: 10.06 mGy DLP: 359 mGycm COMPARISON: Not provided at the time of interpretation. FINDINGS: Bilateral calcified atheromatous plaques of the carotid arteries. Mild emphysema. Bilateral apical pleural parenchymal thickening. Moderate diffuse spondylosis. Endovascular stent is noted at the origin of the left subclavian artery. Calcified atheromatous plaques of the carotid arteries. Mild diffuse thickening of the submandibular fat, probably secondary to prior treatment. 4 mm left thyroid lobe nodule. Mild chronic mucosal inflammatory changes of the left ethmoid air cells. Normal bilateral parotid glands. Normal bilateral wool hat hydraulicker spaces. Normal bilateral parapharyngeal spaces. Normal bilateral carotid spaces. Normal bilateral sublingual and submandibular glands. Normal sublingual and submandibular spaces. Normal visualized nasopharynx. Normal retropharyngeal space. Normal perivertebral space. Normal visualized bilateral faucial tonsils. The visualized tongue, tongue baseand oropharynx are normal. The visualized cervical lymph nodes (levels I-) are within normal size limits,and maintain normalmorphology. There is no demonstrated solid or cystic mass lesion. There is no abnormal contrast enhancement. Normal epiglottis, bilateral vallecula and hypopharynx. The pre-epiglottic and paraglottic adipose spaces are normal. Normal visualized bilateral piriform sinuses, aryepiglottic folds, vocal cords, and arytenoid-cricoid articulations. Normal subglottic trachea. Normal remaining bilateral lobes of the thyroid gland. Normal remaining visualized paranasal sinuses. CT/Soft Tissue Neck WITH Contrast IMPRESSION: 1. No residual or recurrent mass lesion is identified. 2. 3. Bilateral calcified atheromatous plaques of the carotid arteries. 4. Mild emphysema. 5. Bilateral apical pleural parenchymal thickening. 6. Moderate diffuse spondylosis. 7. Endovascular stent is noted at the origin of the left subclavian artery. 8. Calcified atheromatous plaques of the carotid arteries. 9. Mild diffuse thickening of the submandibular fat, probably secondary to priortreatment. 10. 4 mm left thyroid lobe nodule. 11. Mild chronic mucosal inflammatory changes of the left ethmoid air cells. Reading Location: [facility] CC: Dr. Lexus Rivera DO; Dr. Riki Lizama DO ~ Laundromat Worker: Signed [facility]03-03-2025 Evaluation note* Diagnosis Onset Date Resolution Status Admit Date Carcinoma of epiglottis acute M 2024 10:00am Mediastinal lymphadenopathy chronic November 14, 2024 10:00am Mediastinal lymphadenopathy chronic November 25, 2024 8:52am Nicotine dependence, cigaret rocky, in remission chronic November 25, 2024 8:52am Carcinoma of epiglottis acute J 2024 11:25am Mediastinal lymphadenopathy chronic February 15, 2025 11:25am Atherosclerosis of coronary artery 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 chronic March 02, 2025 8:59am Hyperlipidemia chronic March 02, 2025 8:59am Hypertension chronic March 02, 2 025 8:59am Paroxysmal atrial fibrillation chron ic March 02, 2025 8:59am Peripheral vascular occlusiv e disease chronic March 02, 2025 8:59am [facility] Work Phone: 1(768) 243-565602-21-2025 Evaluation note* Diagnosis Onset Date Resolution Status Admit Date Mediastinal lymphadenopathy chronic November 04, 2024 10:01am Carcinoma of epiglottis acute M arch 2024 10:00am Mediastinal lymphadenopathy chronic November 14, 2024 10:00am Mediastinal lymphadenopathy chronic November 25, 2024 8:52am Nicotine dependence, cigarettes, in remission chronic November 122024 8:52am Carcinoma of epiglottis acute J une 2024 11:25am Mediastinal lymphadenopathy chronic February 15, 2025 11:25am [employer] Work Phone: 1(339) 896-808202-21-2025 Evaluation note* Diagnosis Onset Date Resolution Status Admit Date Mediastinal lymphadenopathy chronic November 04, 2024 10:01am Carcinoma of epiglottis acute M arch 2024 10:00am Mediastinal lymphadenopathy chronic November 14, 2024 10:00am Mediastinal lymphadenopathy chronic November 25, 2024 8:52am Nicotine dependence, cigarettes, in remission chronic November 122024 8:52am Carcinoma of epiglottis acute J une 2024 11:25am Mediastinal lymphadenopathy chronic February 15, 2025 11:25am Atherosclerosis of coronary artery 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 chronic March 02, 2025 8:59am Hyperlipidemia chronic March 02, 2025 8:59am Hypertension chronic March 02 2 025 8:59am Paroxysmal atrial fibrillation chron ic March 02, 2025 8:59am Peripheral vascular occlusiv e disease chronic March 02, 2025 8:59am [facility] Work Phone: 1(919) 198-502202-17-2025 [facility] Medical Records Department [address] [place] [address] History Physical Exam 10/31/24 1303 MR#: [id number] Acct: [id number] Name: REYESTYRELL Rep #: [id number] : 1950 73 From: Terence Alba DO PCP: Dr. Lexus Rivera, DO Status:REG [facility] Location: [place] [address]- HPI - General HPI Narrative The patient is a 73-year-old male who was initially evaluated in our pulmonary medicine office on October 13, 2024 following a referral for PET positive mediastinal adenopathy. 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 He is currently followed by Dr. Lizama on an outpatient basis. Recent pet imaging was completed which demonstrated resolution of the laryngeal and neck adenopathy. However, there was some interval progression noted in the thoracic perihilar regions with an SUV of 5.1. Therefore, the patient was referred to our office to be considered for mediastinal lymph node sampling via EBUS. The patient has an approximate [id number] smoking history, having quit completely 30 years ago. He has never been evaluated by a medical office rep, nor has he ever completed pulmonary function studies. The patient does not currently utilize any supplemental oxygen. He does have a known history of coronary artery disease, hypertension, peripheral arterial disease, chronic kidney disease, paroxysmal atrial fibrillation and diabetes. In addition to his personal smoking history, the patient did grow up in a smoking household. 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 He has never previously been diagnosed with asthma. The patient is systemically anticoagulated on Coumadin. He receives all of his nutrition via his feeding tube. He takes nothing by mouth. His weight and appetite have been relatively stable. [facility] Medical History CPAP (continuous positive airway pressure) dependence Cancer Macular degeneration of right eye Carcinoma of epiglottis Smoker Wears hearing aid Wears dentures Alcohol use Ambulates with cane Neuropathy Back pain Blackout Difficulty swallowing Former smoker Shortness of breath on exertion Leg cramps History of edema Stroke/cerebrovascular accident History of atrial fibrillation History of echocardiogram History of stress test Cardiology follow-up encounter Chronic diastolic (congestive) heart failure Hypertension Acute on chronic diastolic (congestive) heart failure History of non-ST elevation myocardial infarction (NSTEMI) (11/02/19) Upper GI bleed (11/02/19) Paroxysmal atrial fibrillation History of CVA (cerebrovascular accident) (10/2015) Chronic renal failure Claudication Peripheral vascular occlusive disease Hyperlipidemia Atherosclerosis of coronary artery 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 Stenosis of left subclavian artery Anxiety and depression CKD (chronic kidney disease) DDD (degenerative disc disease) Marijuana use Narcolepsy Diabetic neuropathy Osteoarthritis Type 2 diabetes mellitus Lacunar infarct, acute Home Medications ???Medication ???Instructions ???Recorded ???Last Taken ???Type pregabalin 150 mg capsule 150 mg PO BID pain 11/06/15 22:00 History warfarin 1 mg tablet 0.5 mg PO SUSA 02/22/24 02/18/24 H istory warfarin 1 mg tablet 1 mg PO MOTUWETHFR 02/22/24 History albuterol sulfate 90 mcg/actuation 2 puff inhalation Q4 PRN wheezin g 10/13/24 Unknown History aerosol inhaler Allergy/AdvReac Type Severity Reaction Status Date / Time Iodinated Contrast Media AdvReac Mild Vomiting Verified 10/13/24 11:19 (iodine contrast) metformin AdvReac Nausea/Vom/ Verified 10/13/24 11:19 Diarrhea Family History (Updated 10/13/24 @ 11:20 by Vida Gilmore LPN) Brother Cancer lung Son Cancer Surgical History S/P percutaneous endoscopic gastrostomy (PEG) tube placement History of laryngoscopy History of cataract surgery History of colonoscopy History of cholecystectomy ( 10/2020) History of left heart catheterization (11/13/04) History of angioplasty of peripheral vessel (09/2018) Social History Smoking Status: Former smoker quit date: 09/14/97 Tobacco: How many years used: 45 how long ago did patient quit smokin years ago alcohol intake: current alcohol intake frequency: 0-2 drinks per day Alcohol type: hard liquor substance use type: marijuana caffeine: Yes Type: carbonated beverages Number of servings: 1 Physical Exam Const alert and no apparent distress General Appearance: cooperative HEENT normocephalic and head/scalp atra (more content not included)...[facility]12-16-2024 Evaluation note* Diagnosis Onset Date Resolution Status Admit Date Atherosclerosis of coronary artery 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 chronic August 29, 024 9:37am Hyperlipidemia chronic August 142023 9:37am Hypertension chronic August 9:37am Paroxysmal atrial fibrillation chron ic August 29, 2024 9:37am Peripheral vascular occlusiv e disease chronic August 29, 2 024 9:37am Carcinoma of epiglottis acute J anuary 2024 8:58am Mediastinal lymphadenopathy chronic October 13, 2024 11:14am Nicotine dependence, cigarettes, in remission chronic October 13, 2024 11:14am Mediastinal lymphadenopathy chronic November 04, 2024 10:01am Carcinoma of epiglottis acute M arch 2024 10:00am Mediastinal lymphadenopathy chronic November 14, 2024 10:00am Mediastinal lymphadenopathy chronic November 25, 2024 8:52am Nicotine dependence, cigarettes, in remission chronic November 122024 8:52am [facility] Work Phone: 1([phone]) 638-252105-06-2024 Procedure [facility] 01-11-2024 Hospital Discharge instructionsAmbulatory Orders* 12 Lead EKG [[facility]] Time Frame: 01/11/24, Location: None Selected [facility] Work Phone: 1(229) 195-221801-07-2024 Hospital Discharge instructions Additional Instructions Your INR tonight is 9.8. You have been given a dose of vitamin K to help reverse this. Please hold your warfarin (Coumadin). Please call Dr. Rivera's office on Thursday. He will need an INR recheck on Thursday.[facility] Work Phone: 1([phone]) 821-166010-12-2023 Note. MICRO - Microbiology PROCEDURE: Urine Culture [*1] [...] Locations *1: This test was performed at: [facility], [address] [place] [address], [id number]- , [facility] hospital [facility]01-15-2023 Discharge summary Author Randy Carrillo [facility] January 15, 2023 10:34am Note Date/Time January 15, 2023 10:34a m [facility] Physical Therapy [facility] [address] [place] [address] / REHABILITATION SERVICES DISCHARGE SUMMARY MR#: [id number] Acct: [id number] Name: TYRELL REYES Rep #: [id number] : 1950 72 From: Randy yu Referring Dr.: Dr. Lexus Rivera DO Status: REG RCR Insurance: MEDICARE PART A B [facility] It has been my pleasure to treat TYRELL REYES referred by Dr. Lexus Rivera DO, with the diagnosis of Lumbar Pain for a total of 9 visit(s). Discharge Date: Please see the following information for a summary of their discharge status. Subjective: Pt. states that he feels like therapy is helping and he is still in pain but it is not as serious as it was before. He reports that the pain this morning when he first woke up was a 4/10 and now it is a 1/10. Pt. states that he is getting up and down stairs easier and he went to a factory that included eight buildings and he only had to rest three times which he thought was outstanding for him. Pt. reports that he is about 40% better since starting physical therapy. He reports that he feels like he is ready to do his exercises at home at this time. LBP Pain Intensity (Out of 10): 1 % Improvement: 40 Objective/Function: Elton has come to 9 sessions of physical therapy focusing on core, back, and LE strengthening. Reviewed his goals for therapy and he has met most of his goals for therapy. Discussed with pt. about continuing with skilled physical therapy but he felt he was ready to be discharged from physical therapyand continue with his exercises at home. Pt. has been discharged from physical therapy at this time. Goal 1:: Patient will be I with HEP and progression Goal Progress: Progressing Goal 2:: Patient will ambulate 300 feet with LRD without having to rest Goal Progress: Goal Met Goal 3:: Patient will maintain proper posture t/o tx session to demo increased core s/s Goal Progress: Goal Met Goal 4:: Patient will TUG under 10 sec Goal Progress: Goal Met Goal 5:: Patient will report 80% improvement Goal Progress: Progressing; Reports 40% Plan: Pt. discharged from physical therapy at this time and will continue with his exercises at home. If there are questions or concerns regarding this patient's physical therapy, please feel free to call me at [phone]. Thank you for the referral of this patient. Sincerely, Randy Carrillo Balance/Gait/Functional tests - Balance/Special Test Scores Oswestry Low Back Score: 31 TUG Test Time Seconds: 17 Tug Test: <20 sec.=mostly independent 30 Second Chair Rise Test Seconds: 8 <Electronically signed by Randy Carrillo > 01/15/23 1034 CC: Dr. Lexus Rivera, ~ NRN Signed [facility] Work Phone: 1(278) 497-704403-15-2021 NoteHNO ID: [id number] Author: Patti Luciano Service: ? Author Type: Physician Type: Progress Notes Filed: 11/27/2020 12:36 PM Note Text: Tyrell Reyes 1950 REFERRING PHYSICIAN: Branden Shannon DO CHIEF [...] PFSH and ROS obtained by others. Patti Luciano, [facility]02-15-2021 NoteHNO ID: [id number] Author: Patti Luciano Service: ? Author Type: Physician Type: Progress Notes Filed: 10/31/2020 8:47 AM Note Text: FOLLOW UP VISIT - CHOLECYSTECTOMY ? NAME: Tyrell R [facility] NO.: [id number] DATE OF SERVICE: 10/29/2020 ? : 1950 ? REFERRING PHYSICIAN: Branden Shannon, DO ? Tyrell is s/p laparoscopic cholecystectomy with intraoperative choleangiogram [...] care. ? ? ? Patti Luciano MD ?[facility]02-08-2021 NoteHNO ID: [id number] Author: Patti Gracewilfrid Luciano Service: ? Author Type: Physician Type: Progress Notes Filed: 10/27/2020 11:53 AM Note Text: FOLLOW UP VISIT - CHOLECYSTECTOMY NAME: Tyrell Lagunas Reyes [facility] NO.: [id number] DATE OF SERVICE: 10/22/2020 : 1950 REFERRING PHYSICIAN: Branden Shannon DO Tyrell is a patient I am following for [...] primary physician for medical care. Patti Luciano [facility] Author Elton Sanchez [facility] January 18, 2024 7:58am Note Date/Time January 18, 2024 7:41am [facility] Medical Records Department [address] [place] [address] Discharge Summary 01/18/24 0741 MR#: [id number] Acct: [id number] Name: TYRELL REYES Rep #:[id number] : 1950 73 From: Elton Sanchez MD PCP: Dr. Lexus Rivera, Status:[facility] Location: [place] [address] Providers Primary Care Physician: Dr. Lexus Rivera DO Reason For Visit: Microlaryngoscopy Medications at Discharge Home Medications pregabalin 150 mg capsule 150 mg PO BID pain 11/06/15 tamsulosin 0.4 mg capsule 0.4 mg PO DAILY prostate 90 days #90 caps 12/24/18 cholecalciferol (vitamin D3) 50 mcg (2,000 unit) tablet 2,000 unit PO DAILY vitamin 06/24/19 methocarbamol 750 mg tablet 750 mg PO Q8H PRN spasm 11/08/19 aspirin 81 mg chewable tablet 81 mg PO DAILY heart health 03/22/20 atorvastatin 40 mg tablet 40 mg PO QHS 01/06/22 glipizide 5 mg tablet 5 mg PO BID diabetes 90 days 01/06/22 metoprolol succinate 25 mg tablet,extended release 24 hr 25 mg PO QHS 01/06/22 hydrocodone-acetaminophen 5-325mg 5mg-325mg 1 tab PO QHS PRN pain 07/09/22 dapagliflozin propanediol 10 mg tablet (Farxiga) 10 mg PO DAILY 10/13/22 nitroglycerin 0.4 mg sublingual tablet 0.4 mg sublingual Q5M PRN chest pain #25 tabs 10/13/22 semaglutide 3 mg tablet (Rybelsus) 14 mg PO DAILY 02/03/23 warfarin 1 mg tablet 0.5 mg PO .COMPLEX #90 tabs 09/22/23 Weight / BMI Weight Weight: 88 kg Body Mass Index (BMI) 30.4 ABG / Lab / Microbiology Data 01/11/24 08:35 01/11/24 08:35 Laboratory: Laboratory Results - last 24 hr 01/18/24 06:12: POC PT 16.6 H, INR 1.5 01/18/24 06:25: PT 19.7 H, INR 1.7 01/18/24 06:48: POC Glucose 141 H D/C Instructions Discharge Diet: Soft diet Discharge Activity: Return to Normal Activity Please Follow Up With: Elton Sanchez MD When: next week Meaningful Use Info Meaningful Use Meaningful Use Diagnoses (Choose all that apply): None applicable Ischemic Stroke Statin Dosing Therapy Reference: STATIN DOSE THERAPY REFERENCE: * Patients > 75 years receive moderate or high dose statin therapy. * Patients 75 years or YOUNGER should receive HIGH intensity statin dose unless contraindicated. You will be required to document reason for non-treatment if statin daily dose does not meet guidelines. HIGH DOSE STATIN THERAPY DAILY Atorvastatin > than or = to 40 mg Rosuvastatin > than or = to 20 mg Amlodipine + Atorvastatin > than or = to 2.5/40 mg Ezetimibe + Simvastatin 10/80 mg Simvastatin 80mg Discharge Plan Admission Attending Provider: Elton Sanchez Primary Care Provider: Lexus Rivera Discharge Orders/Prescriptions Prescriptions: No Action tamsulosin 0.4 mg capsule 0.4 mg PO DAILY 90 Days Qty: 90 glipizide 5 mg tablet 5 mg PO BID 90 Days Rx Instructions: take 7.5 mg that morning and 5 mg in the evening. cholecalciferol (vitamin D3) 2,000 unit tablet 2,000 unit PO DAILY methocarbamol 750 mg tablet 750 mg PO Q8H PRN (Reason: spasm) Rybelsus 3 mg tablet 14 mg PO DAILY atorvastatin 40 mg tablet 40 mg PO QHS metoprolol succinate 25 mg tablet extended release 24 hr 25 mg PO QHS hydrocodone-acetaminophen 5-325 mg tablet 1 tab PO QHS PRN (Reason: pain) Farxiga 10 mg tablet 10 mg PO DAILY nitroglycerin 0.4 mg tablet, sublingual 0.4 mg sublingual Q5M PRN (Reason: chest pain) Qty: 25 3RF Rx Instructions: do not exceed 3 doses per episode pregabalin 150 MG capsule 150 mg PO BID Patient Comments: Pain aspirin 81 MG tablet,chewable 81 mg PO DAILY warfarin 1 mg tablet 0.5 mg PO .COMPLEX Qty: 90 3RF Protocol: Dose Management Condition: Thursday Dose/Route: 0.5 mg Instruction: 0.5 x 1 mg tablets Condition: Thursday Dose/Route: 1 mg Instruction: 1 x 1 mg tablet Condition: Thursday Dose/Route: 1 mg Instruction: 1 x 1 mg tablet Condition: Thursday Dose/Route: 1 mg Instruction: 1 x 1 mg tablet Condition: Dose/Route: 1 mg Instruction: 1 x 1 mg tablet Condition: Thursday Dose/Route: 1 mg Instruction: 1 x 1 mg tablet Condition: Thursday Dose/Route: 0.5 mg Instruction: 0.5 x 1 mg tablets Protocol Text: Adjustment Start Date: 01/07/24 INR Value: 2.8 INR Date: 01/07/24 Recheck Date: 02/06/24 Patient Comments: TO HOLD 5 DAYS PRIOR TO SURGERY Rx Instructions: 0.5 mg orally daily; please give 90 pills as dose changes often.; Other Ambulatory Orders: 12 Lead EKG (Routine) Timeframe: 20240111 Location: None Selected Ordered By: Dr. Elton Sanchez Referrals / Follow Up: Lexus Rivera DO [Primary Care Provider] - Disposition Disposition (needs filled in before D/C Order can be placed): Home, Self Care 01/18/24 0743 <Electronically signed by Elton Sanchez MD> Cosigner Signature (if applicable): CC: Dr. Elton Sanchez MD; Dr. Lexus Rivera DO~ Signed ADDENDUM by Dr. Elton Sanchez MD on 01/18/24 at 0758 Problems Associated Problem List Diagnoses (1) Carcinoma of epiglottis: 01/18/24 0758<Electronically signed by Elton Sanchez MD> Cosigner Signature (if applicable): cc: Dr. Elton Sanchez MD; Dr. Lexus Rivera DO ~* Signed [facility] Work Phone: Evaluation + Plan note Future Appointments Appointment Date:07/28/2023 10:00:00 AM Scheduled Provider:LEXUS RIVERA DO Location:[facility] Appointment Type:PC Office Procedure OMT Appointment Date:08/25/2023 09:30:00 AM Scheduled Provider:LEXUS RIVERA DO Location:[facility] Appointment Type:PC Office Procedure OMT Appointment Date:09/29/2023 09:00:00 AM Scheduled Provider:LEXUS RIVERA DO Location:[facility] Appointment Type:PC Office Procedure OMT Appointment Date:11/03/2023 08:30:00 AM Scheduled Provider:LEXUS RIVERA DO Location:[facility] Appointment Type:PC Office Procedure OMT Appointment Date:12/01/2023 09:30:00 AM Scheduled Provider:LEXUS RIVERA DO Location:[facility] Appointment Type:PC Office Procedure OMT Appointment Date:12/29/2023 09:00:00 AM Scheduled Provider:LEXUS RIVERA DO Location:[facility] Appointment Type:PC Office Procedure OMT [facility] evaluation + Plan note Future Appointments Appointment Date:12/29/2023 09:00:00 AM Scheduled Provider:LEXUS RIVERA DO Location:[facility] Appointment Type:PC Office Procedure OMT Appointment Date:01/26/2024 09:00:00 AM Scheduled Provider:LEXUS RIVERA DO Location:[facility] Appointment Type:PC Office Procedure OMT Appointment Date:02/23/2024 08:00:00 AM Scheduled Provider:LEXUS RIVERA DO Location:[facility] Appointment Type:PC Office Procedure OMT Appointment Date:03/29/2024 09:30:00 AM Scheduled Provider:LEXUS RIVERA DO Location:[facility] Appointment Type:PC Office Procedure OMT Appointment Date:05/03/2024 09:30:00 AM Scheduled Provider:LEXUS RIVERA DO Location:[facility] Appointment Type:PC Office Procedure OMT Appointment Date:05/17/2024 10:00:00 AM Scheduled Provider:LEXUS RIVERA DO Location:[facility] Appointment Type:PC Wellness Medicare [facility] evaluation + Plan note Future Appointments Appointment Date:06/21/2024 10:00:00 AM Scheduled Provider:LEXUS RIVERA DO Location:[facility] Appointment Type:PC Office Procedure OMT Appointment Date:07/26/2024 10:30:00 AM Scheduled Provider:LEXUS RIVERA DO Location:[facility] Appointment Type:PC Office Procedure OMT Appointment Date:08/23/2024 09:00:00 AM Scheduled Provider:LEXUS RIVERA DO Location:[facility] Appointment Type:PC Office Procedure OMT Appointment Date:10/04/2024 09:00:00 AM Scheduled Provider:LEXUS RIVERA DO Location:[facility] Appointment Type:PC OV Appointment Date:11/01/2024 11:30:00 AM Scheduled Provider:LEXUS RIVERA DO Location:[facility] Appointment Type:PC OV Appointment Date:11/29/2024 08:00:00 AM Scheduled Provider:LEXUS RIVERA DO Location:[facility] Appointment Type:PC Office Procedure OMT Future Scheduled Tests Laboratory* Hepatic Function Panel 05/17/24 * Thyroid Stimulating Hormone 05/17/24 * Free T4 05/17/24 * Complete Blood Count 05/17/24 * Lipid Profile 05/17/24 * Albumin/Creatinine Ratio, Random Urine 05/17/24 * Renal Function Panel 05/17/24 * Vitamin D Level 05/17/24 [facility] Evaluation + Plan note Future Appointments Appointment Date:02/28/2025 09:30:00 AM Scheduled Provider:LEXUS RIVERA DO Location:[facility] Appointment Type:PC Office Procedure OMT Appointment Date:04/04/2025 11:00:00 AM Scheduled Provider:LEXUS RIVERA DO Location:[facility] Appointment Type:PC OV Appointment Date:05/09/2025 08:30:00 AM Scheduled Provider:LEXUS RIVERA DO Location:[facility] Appointment Type:PC Office Procedure OMT Appointment Date:05/23/2025 09:00:00 AM Scheduled Provider:LEXUS RIVERA DO Location:[facility] Appointment Type:PC Wellness Medicare Appointment Date:06/13/2025 09:30:00 AM Scheduled Provider:LEXUS RIVERA DO Location:[facility] Appointment Type:PC Office Procedure OMT Appointment Date:07/11/2025 08:30:00 AM Scheduled Provider:LEXUS RIVERA DO Location:[facility] Appointment Type:PC Office Procedure OMT Future Scheduled Tests Radiology* XR Shoulder Minimum 2 Views Right 11/29/24 [facility] Evaluation + Plan note Future Appointments Appointment Date:05/09/2025 08:30:00 AM Scheduled Provider:LEXUS RIVERA DO Location:[facility] Appointment Type:PC Office Procedure OMT Appointment Date:05/23/2025 09:00:00 AM Scheduled Provider:LEXUS RIVERA DO Location:[facility] Appointment Type:PC Wellness Medicare Appointment Date:06/07/2025 11:00:00 AM Scheduled Provider:LEXUS RIVERA DO Location:[facility] Appointment Type:PC Office Procedure OMT Appointment Date:07/11/2025 08:30:00 AM Scheduled Provider:LEXUS RIVERA DO Location:[facility] Appointment Type:PC Office Procedure OMT Appointment Date:08/08/2025 11:30:00 AM Scheduled Provider:LEXUS RIVERA DO Location:[facility] Appointment Type:PC Office Procedure OMT Appointment Date:09/05/2025 10:00:00 AM Scheduled Provider:LEXUS RIVERA DO Location:[facility] Appointment Type:PC Office Procedure OMT Future Scheduled Tests Radiology* XR Shoulder Minimum 2 Views Right 11/29/24 [facility] evaluation noteNo assessment information available [facility] Work Phone: evaluation note* Diagnosis Onset Date Resolution Status Atherosclerosis of coronary artery 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 chronic Chronic diastolic (congestive) heart failure chronic Hyperlipidemia chronic Hypertension chronic Paroxysmal atrial fibrillation chronic Peripheral vascular occlusive disease [facility] Work Phone: evaluation note* Diagnosis Onset Date Resolution Status Chest pain acute Dyspnea acute Atherosclerosis of coronary artery 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 chronic Chronic diastolic (congestive) heart failure chronic Hypertension chronic Paroxysmal atrial fibrillation chronic Peripheral vascular occlusive disease [facility] Work Phone: evaluation note* Diagnosis Onset Date Resolution Status Chest pain acute Dyspnea acute Atherosclerosis of coronary artery 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 chronic Chronic diastolic (congestive) heart failure chronic Hypertension chronic Paroxysmal atrial fibrillation chronic Peripheral vascular occlusive disease chronic Chest pain acute Atherosclerosis of coronary artery 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 chronic Chronic diastolic (congestive) heart failure chronic Hypertension chronic Paroxysmal atrial fibrillation chronic Peripheral vascular occlusive disease [facility] Work Phone: evaluation note* Diagnosis Onset Date Resolution Status Chest pain acute Atherosclerosis of coronary artery 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 chronic Chronic diastolic (congestive) heart failure chronic Hypertension chronic Paroxysmal atrial fibrillation chronic Peripheral vascular occlusive disease [facility] Work Phone: evaluation note* Diagnosis Onset Date Resolution Status Atherosclerosis of coronary artery 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 chronic Hyperlipidemia chronic Hypertension chronic Paroxysmal atrial fibrillation chronic Peripheral vascular occlusive disease [facility] Work Phone: Evaluation note* Diagnosis Onset Date Resolution Status Dyspnea acute Atherosclerosis of coronary artery 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 chronic Hyperlipidemia chronic Hypertension chronic Paroxysmal atrial fibrillation chronic Peripheral vascular occlusive disease chronic [facility] Work Phone: Evaluation note* Diagnosis Onset Date Resolution Status Dyspnea acute Atherosclerosis of coronary artery 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 chronic Hyperlipidemia chronic Hypertension chronic Paroxysmal atrial fibrillation chronic Peripheral vascular occlusive disease chronic Carcinoma of epiglottis acut e [facility] Work Phone: Hospital course Narrative No data available for this section [facility] Hospital Discharge instructions No data available for this section [facility] Progress note No data available for this section [facility] Progrbpz note Author Riki Lizama [facility] Note Date/Time February 15, 2025 12:05 pm [facility] [address] [place] [id number] OFFICE VISIT Date of Service: 02/15/258 MR#: [id number] Acct: [id number] Name: TYRELL REYES Rep #: [id number] : 1950 From: Riki cunningham DO Age/Sex: 74/M [place] [facility] [place]: Signed Intake Vital Signs 11/14/24 14:16 01/02/25 13:19 02/15/25 11:35 02/15/25 11:38 Height 5 ft 7.5 in 5 ft 7.5 in 5 ft 7.5 in 5 ft 7.5 in Weight: 152 lb 2 oz BMI 23.4 BP 144/76 H Blood Pressure Location Rt brachial Position Sitting Respiration 18 Pulse 82 Pulse Source Monitor Temp 98.2 F Temperature Source Temporal Artery Pulse Oximetry (%) 97 Oxygen Delivery Method room air Intake Visit Reasons: 3 MONTH H/N, REVIEW SCANS Is patient in pain?: Yes (back pain ) Allergies Iodinated Contrast Media (iodine contrast) Adverse Reaction (Mild, Verified 02/15/25 11:34) Vomiting metformin Adverse Reaction (Verified 02/15/25 11:34) Nausea/Vom/Diarrhea Medications ?Medication ?Instructions ?Recorded ?Confirmed ?Type pregabalin 150 mg capsule 150 mg PO DAILY pain 6 02/15/25 History warfarin 1 mg tablet 2 mg PO DAILY 02/22/2402/15 History albuterol sulfate 90 mcg/actuation 2 puff inhalation Q 4 PRN wheezing 10/13/24 02/15/25 History aerosol inhaler Have you fallen in the past year?: No PFSH PFSH Medical History CPAP (continuous positive airway pressure) dependence Cancer Macular degeneration of right eye Carcinoma of epiglottis Smoker Wears hearing aid Wears dentures Alcohol use Ambulates with cane Neuropathy Back pain Blackout Difficulty swallowing Former smoker Shortness of breath on exertion Leg cramps History of edema Stroke/cerebrovascular accident History of atrial fibrillation History of echocardiogram History of stress test Cardiology follow-up encounter Chronic diastolic (congestive) heart failure Hypertension Acute on chronic diastolic (congestive) heart failure History of non-ST elevation myocardial infarction (NSTEMI) (11/02/19) Upper GI bleed (11/02/19) Paroxysmal atrial fibrillation History of CVA (cerebrovascular accident) (10/2015) Chronic renal failure Claudication Peripheral vascular occlusive disease Hyperlipidemia Atherosclerosis of coronary artery 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 Stenosis of left subclavian artery Anxiety and depression CKD (chronic kidney disease) DDD (degenerative disc disease) Marijuana use Narcolepsy Diabetic neuropathy Osteoarthritis Type 2 diabetes mellitus Lacunar infarct, acute Home Medications ?Medication ?Instructions ?Recorded ?Last Taken ?Type pregabalin 150 mg capsule 150 mg PO DAILY pain 6 10/12/20 22:00 History warfarin 1 mg tablet 2 mg PO DAILY 02/22/2410/30 History albuterol sulfate 90 mcg/actuation 2 puff inhalation Q 4 PRN wheezing 10/13/24 Unknown History aerosol inhaler Allergy/AdvReac Type Severity Reaction Status Date / Time Iodinated Contrast Media AdvReac Mild Vomiting Verified 02/15/25 11:34 (iodine contrast) metformin AdvReac Nausea/Vom/ Verified 02/15/25 11:34 Diarrhea Family History Brother Cancer lung Son Cancer Surgical History S/P percutaneous endoscopic gastrostomy (PEG) tube placement History of laryngoscopy History of cataract surgery History of colonoscopy History of cholecystectomy (~10/2020) History of left heart catheterization (11/13/04) History of angioplasty of peripheral vessel (09/2018) Social History Smoking Status: Former smoker quit date: 09/14/97 Tobacco: How many years used: 45 how long ago did patient quit smokin years ago alcohol intake: current alcohol intake frequency: 0-2 drinks per day Alcohol type: hard liquor substance use type: marijuana caffeine: Yes Type: carbonated beverages Number of servings: 1 Diagnosis: Tyrell Reyes is a 73-year-old male diagnosed with clinical stage NALINI (cT2 cN2cM0) moderately differentiated squamous cell carcinoma of the supraglottic larynxstatus post evaluation by ENT (12/24/2023), CT neck with contrast (01/07/2024), completion of direct laryngoscopy with biopsy (01/18/2024), and PET scan (02/02/2024). From 02/22/2024 ? 04/01/2024 he received definitive radiation. History of Present Illness: 12/24/2023: Patient was evaluated by ENT.? This demonstrated a mass on the laryngeal surface of the epiglottis.? No apparent abnormality noted within the glottis or subglottis. 01/07/2024: CT neck with contrast was performed.? This demonstrated a suggestion of thickening of the epiglottis especially of the midline and to the right side extending toward the AE fold on the right.? There is also some thickening of theposterior wall of the larynx on the right which could be inflammatory or neoplastic.? No evidence of adenopathy is appreciated.? No evidence of metastatic disease is seen. 01/18/2024: Patient underwent direct laryngoscopy with biopsy.? On examination there is an epiglottic mass extending to the right AE fold multiple biopsies were taken.? This demonstrated invasive moderately differentiated squamous cell carcinoma, p16 negative, Ki-67 > 90% 02/02/2024: PET scan showed increased FDG activity in the hypopharynx and left neck, no evidence of distant metastatic disease. From 02/22/2024 ? 04/01/2024: received definitive radiation therapy consisting of 6996 cGy delivered to the gross disease within the larynx and bilateral adenopathy, 5940 cGy delivered to the entire remaining larynx and bilateral neckand 5412 cGy to the high level 2 bilaterally and bilateral supraclavicular fossaall in 33 fractions. He was treated with a VMAT plan using 6 MV photons. He was treated 6 fractions per week because he was not a candidate for chemotherapy. 06/21/2024: Patient completed PET scan. This demonstrated increased activity in the bilateral thoracic perihilar and with an SUV of 3.6 which is borderline for viable neoplasm. There has been interval resolution of the laryngeal and neck activity suggesting good response to treatment. No evidence of metastatic disease. 10/04/2024: Patient completed PET scan. This demonstrated redefined increased glucose metabolism defined in the bilateral thoracic perihilar much now feels criteria for neoplasm at single-point technique. Tracer noted in the left lowerlung field does not fill quantitative criteria. Within the perihilar the SUV is5.1 compared to 3.6 on the prior. No other evidence of disease is noted. 11/04/2024: Patient completed bronchoscopy with EBUS and biopsy of 10R, 11R, 11L lymph node spaces.? Multiple biopsies taken from each area demonstrated no evidence of malignancy. 02/13/2025: Patient completed CT neck and chest with contrast. This demonstrated bilateral calcified erythematous plaques in the carotid arteries, mild emphysema, mild apical pleural-parenchymal thickening 4 mm thyroid nodule, 4.5 cm left simple renal cyst, 4 mm nodule in the right middle lobe. Radiation Treatment History: 1) From 02/22/2024 ? 04/01/2024: received definitive radiation therapy consisting of 6996 cGy delivered to the gross disease within the larynx and bilateral adenopathy, 5940 cGy delivered to the entire remaining larynx and bilateral neckand 5412 cGy to the high level 2 bilaterally and bilateral supraclavicular fossaall in 33 fractions. He was treated with a VMAT plan using 6 MV photons. He was treated 6 fractions per week because he was not a candidate for chemotherapy. Interval History: Patient presents for follow-up approximately 11 months after completing definitive radiation therapy. Clinically he is doing fairly well, he has however continued to struggle with swallowing, planning dilation with GI next week. Doing liquid PO and tube feeds, he reports weight being stable. Skin hashealed, some dryness and tanning. Has lymphedema which is not bothersome. Denies pain. Weight has remained stable. He reports persistent taste change which is manageable. Dry mouth has gradually improved, he is still doing biotene. Some worsened mucus. He denies cough, chest pain, bone pain. He doesreport some intermittent shortness of breath improved since his last visit, someenergy improvement as well. Denies N/V. He is able to complete ADLs without much difficulty. He denies having other problems or concerns at this time. Review of Systems: A 12-point review of systems was completed and was negative except for what is noted in the HPI/Interval History and by the nurse. Physical Exam: Weight: 152 lbs 2 oz ECO KARNOFSKY SCORE: 70% CONSTITUTIONAL: Well-developed, well-nourished, and in no apparent distress. HEENT: Mucous membranes fairly moist. No evidence of thrush or lesions within the visualized oropharynx or oral cavity. No trismus. Edentulous. Pupils are equal, round, and reactive to light and accommodation. Extraocular movements areintact. Sclerae are anicteric. NECK: Supple, no thyromegaly, and non-tender. Trachea midline. No cervical or supraclavicular adenopathy noted. Bilateral neck tanning with some dryness, no erythema or desquamation. Anterior neck lymphedema. CARDIAC: Regular rate and rhythm. Normal S1, S2. No murmurs, rubs, or gallops. PULMONARY/CHEST: Lungs are clear to auscultation and percussion bilaterally. No wheezes, rhonchi, or crackles noted. No increased work of breathing. PSYCHIATRIC: Appropriate mood and affect for the clinical situation. Imaging: As per HPI Laboratory Data: None Assessment & Plan Assessment/Plan (1) Mediastinal lymphadenopathy: (2) Carcinoma of epiglottis: PLAN: Plan Assessment: Tyrell Reyes is a 74-year-old male diagnosed with clinical stage NALINI (cT2 cN2cM0) moderately differentiated squamous cell carcinoma of the supraglottic larynxstatus post evaluation by ENT (12/24/2023), CT neck with contrast (01/07/2024), completion of direct laryngoscopy with biopsy (01/18/2024), and PET scan (02/02/2024). From 02/22/2024 ? 04/01/2024 he received definitive radiation. ? Plan: Patient presents for follow-up approximately 11 months after completing definitive radiation therapy. No evidence of disease on exam today. He has seen ENT in the last couple months and is getting scoped regularly and has had no evidence of disease. I reviewed the imaging findings from the CT neck and chest. Neck imaging is unremarkable, no evidence of recurrence, within the chest there does appear to be several very small pulmonary nodules within the right upper, right middle and right lower lobe, these were not readily apparent on prior imaging and will be followed closely with a repeat CT chest in 3 months. Too small for PET scan or biopsy. Has fairly extreme narrowing in the pharyngoesophageal region and planning for stretching of this area by GI next week and then will work very closely with speech therapy to continue regaining swallowing function which had been progressively improving a few months ago. I will plan to have him return for routine follow-up in about [address] chest and he is instructed to call with any further questions or concerns in the interim. ? Thank you for allowing me to participate in the management and care of your patient. If I may answer any questions in the interim, please do not hesitate tocontact me at any time. ? Riki Lizama DO, MS Emergency Room Tech, Department of Radiation Oncology [facility] Coding Level of Care Code Off vis,est,level 3 Diagnoses Mediastinal lymphadenopathy R59.0 Carcinoma of epiglottis C32.1 02/15/25 1205 <Electronically signed by Riki Lizama DO> Date _ Riki Lizama DO Cosigner Signature: Date (if applicable) CC: ~ [facility] Work Phone: Reason for referral (narrative)No reason for referral information availableWThe [facility] Work Phone: Summary Purpose Family History No Family History Records Found Relationship Condition Age at Onset Recorded Date/T kandi brother Malignant neoplasm Unknown Relationship Condition Age at Onset Recorded Date/T kandi brother Malignant neoplasm Unknown son Malignant neoplasm Unknown Advance Directives No Advanced Directives Records Found Advance Directive Response Recorded Date/ Time Advance Directives No February 27 4:16pm Living Will Yes October 13 4:46pm Power of Brick Paver No October 13, 2020 4:46pm Advance Directive Response Recorded Date/ Time Advance Directives No February 27 3:16pm Living Will Yes October 13 3:46pm Power of Brick Paver No October 13, 2020 3:46pm Advance Directive Response Recorded Date/ Time Advance Directives No February 27 3:16pm Living Will No September 15 10:49am Power of Brick Paver No September 15 023 10:49am Advance Directive Response Recorded Date/ Time Advance Directives No February 27 4:16pm Living Will No September 15 3 11:49am Power of Brick Paver No September 15 023 11:49am Advance Directive Response Recorded Date/ Time Advance Directives No February 27 3:16pm Living Will Yes September 20 12:05am Power of Brick Paver Yes September 20 12:05am Name of Medical Power of Brick Paver caity ceballos madonna September 20, 2023 12:05am Advance Directive Response Recorded Date/ Time Name of Medical Power of Brick Paver caity ceballos madonna September 20, 2023 12:05am Advance Directives No February 27 3:16pm Living Will Yes September 20 12:05am Power of Brick Paver Yes September 20 12:05am Advance Directive Response Recorded Date/ Time Name of Medical Power of Brick Paver caity ceballos madonna September 20, 2023 1:05am Advance Directives No February 27 4:16pm Living Will Yes September 20 1:05am Power of Brick Paver Yes September 20, 1:05am Advance Directive Response Recorded Date/ Time Name of Medical Power of Brick Paver caity ceballos September 20, 2023 1:05am Advance Directives No February 27 4:16pm Living Will Yes January 08, 2024 11:07am Power of Brick Paver Yes January 07 11:07am Advance Directive Response Recorded Date/ Time Name of Medical Power of Brick Paver caity ceballos September 20, 2023 1:05am Name of Medical Power of Brick Paver KACY BARRAZA January 08, 2024 11:07am Advance Directives No February 27 4:16pm Living Will Yes January 08, 2024 11:07am Power of Brick Paver Yes January 07 11:07am Advance Directive Response Recorded Date/ Time Living Will No March 14, 2024 9 :34am Power of Brick Paver No March 14, 2024 9:34am Living Will Yes January 08, 2024 11:07am Power of Brick Paver Yes January 07 11:07am Living Will No August 14 2:23am Power of Brick Paver No August 14, 2024 2:23am Living Will Yes November 02, 025 3:57pm Power of Brick Paver Yes November 02, 2024 3:57pm Name of Medical Power of Brick Paver YOLI REYES November 02, 2024 3:57pm Living Will No October 15 5:39am Power of Brick Paver No October 15, 2024 5:39am Advance Directives No February 27 4:16pm Advance Directive Response Recorded Date/ Time Living Will Yes January 08, 2024 11:07am Do you have a Healthcare Power of Brick Paver? Yes January 08, 2024 11:07am Living Will Yes November 02, 025 3:57pm Do you have a Healthcare Power of Brick Paver? Yes November 02, 2024 3:57pm Name of Medical Power of Brick Paver YOLI REYES November 02, 2024 3:57pm Living Will No October 15 5:39am Do you have a Healthcare Power of Brick Paver? No October 15, 2024 5:39am Living Will No November 12, 2024 8:29am Do you have a Healthcare Power of Brick Paver? No November 12, 2024 8:29am Advance Directives No February 27 4:16pm Advance Directive Response Recorded Date/ Time Living Will Yes January 08, 2024 11:07am Do you have a Healthcare Power of Brick Paver? Yes January 08, 2024 11:07am Living Will No November 12, 2024 8:29am Do you have a Healthcare Power of Brick Paver? 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 Chronic diastolic (congestive) heart failure Hyperlipidemia Hypertension Paroxysmal atrial fibrillation Peripheral vascular occlusive disease Chief Complaint COPY BMP RESULTS TO TRZCINSKI S/O INR s/o INR AORTOILIAC ANGIOGRAM s/o INR ARTHERSOSCLEROSIS L UPPER 9 m fu s/o INR Reason for Visit Atherosclerosis of c oronary artery 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 Chronic diastolic (congestive) heart failure Hyperlipidemia Hypertension Paroxysmal atrial fibrillation Peripheral vascular occlusive disease Chief Complaint AORTOILIAC ANGIOGRAM s/o INR ARTHERSOSCLEROSIS L UPPER 9 m fu s/o INR s/o INR s/o INR Reason for Visit Atherosclerosis of c oronary artery 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 Chronic diastolic (congestive) heart failure Hyperlipidemia Hypertension Paroxysmal atrial fibrillation Peripheral vascular occlusive disease Chief Complaint s/o INR s/o INR 6 M FU INT LABS Reason for Visit Chest pain Dyspnea Atherosclerosis of coronary artery 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 Chronic diastolic (congestive) heart failure Hypertension Paroxysmal atrial fibrillation Peripheral vascular occlusive disease Chief Complaint s/o INR s/o INR 6 M FU INT LABS DYSPNEA/SOB Reason for Visit Chest pain Dyspnea Atherosclerosis of coronary artery 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 Chronic diastolic (congestive) heart failure Hypertension Paroxysmal atrial fibrillation Peripheral vascular occlusive disease Chief Complaint s/o INR 6 M FU INT LABS DYSPNEA/SOB ABD PAIN s/o INR 3 M FU Reason for Visit Chest pain Dyspnea Atherosclerosis of coronary artery 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 Chronic diastolic (congestive) heart failure Hypertension Paroxysmal atrial fibrillation Peripheral vascular occlusive disease Chest pain Atherosclerosis of coronary artery 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 Chronic diastolic (congestive) heart failure Hypertension Paroxysmal atrial fibrillation Peripheral vascular occlusive disease Chief Complaint ABD PAIN s/o INR 3 M FU s/o INR DDD RX HERE Reason for Visit Chest pain Atherosclerosis of coronary artery 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 Chronic diastolic (congestive) heart failure Hypertension Paroxysmal atrial fibrillation Peripheral vascular occlusive disease Chief Complaint ABD PAIN s/o INR 3 M FU s/o INR AFTERCARE/WBI s/o INR DDD RX HERE Reason for Visit Chest pain Atherosclerosis of coronary artery 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 Chronic diastolic (congestive) heart failure Hypertension Paroxysmal atrial fibrillation Peripheral vascular occlusive disease Chief Complaint s/o INR 3 M FU s/o INR AFTERCARE/WBI s/o INR DDD RX HERE Reason for Visit Chest pain Atherosclerosis of coronary artery 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 Chronic diastolic (congestive) heart failure Hypertension Paroxysmal atrial fibrillation Peripheral vascular occlusive disease Chief Complaint AFTERCARE/WBI s/o INR DDD RX HERE 1 Y FU s/o INR Reason for Visit Atherosclerosis of c oronary artery 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 Hyperlipidemia Hypertension Paroxysmal atrial fibrillation Peripheral vascular occlusive disease Chief Complaint s/o INR DDD RX HERE 1 Y FU s/o INR Reason for Visit Atherosclerosis of c oronary artery 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 Hyperlipidemia Hypertension Paroxysmal atrial fibrillation Peripheral vascular occlusive disease Chief Complaint s/o INR s/o INR Chief Complaint s/o INR wound to left leg Chief Complaint wound to left leg 8 m fu s/o INR s/o INR Reason for Visit Dyspnea Atherosclerosis of coronary artery 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 Hyperlipidemia Hypertension Paroxysmal atrial fibrillation Peripheral vascular occlusive disease Chief Complaint wound to left leg 8 m fu s/o INR s/o INR s/o INR Reason for Visit Dyspnea Atherosclerosis of coronary artery 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 Hyperlipidemia Hypertension Paroxysmal atrial fibrillation Peripheral vascular occlusive disease Chief Complaint wound to left leg 8 m fu s/o INR s/o INR s/o INR s/o INR EPIGLOTTIS CANCER Reason for Visit Dyspnea Atherosclerosis of coronary artery 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 Hyperlipidemia Hypertension Paroxysmal atrial fibrillation Peripheral vascular occlusive disease Chief Complaint wound to left leg 8 m fu s/o INR s/o INR s/o INR s/o INR EPIGLOTTIS CANCER PREOP Microlaryngoscopy Reason for Visit Dyspnea Atherosclerosis of coronary artery 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 Hyperlipidemia Hypertension Paroxysmal atrial fibrillation 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 Chief Complaint Admit Date s/o INR August 12, 2024 6:27am 3 M FU August 29, 2024 9:37am s/o INR October 04, 2024 7 :51am XRT CA October 04, 2024 8 :30am 3 MONTH F/U H/N, REVIEW PET September 8:58am Referral from [facility] (see order&comments) J anuary 2024 11:14am R59.0 - Localized enlarged lymph nodes F ebruary 2024 12:15pm CARCINOMA OF EPIGLOTTIS October 21 10:20am R59.0 - Localized enlarged lymph nodes F ebruary 2024 12:25pm R59.0 - Localized enlarged lymph nodes F ebruary 2024 8:08am s/o INR November 03, 2024 6:53am REVIEW BIOPSY RESULTS November 14, 2024 10 :00am PHYSICAL DECONDITIONING. RX HERE November 142024 10:30am 6 wk FU November 25, 2024 8:5 2am Reason for Visit Admit Date Atherosclerosis of coronary artery 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 August 29, 2024 9:37am Hyperlipidemia August 29, 2024 9:37am Hypertension August 29, 2024 9:37am Paroxysmal atrial fibrillation August 29, 2024 9:37am Peripheral vascular occlusive disease De cember 2023 9:37am Carcinoma of epiglottis October 07 8:58am Mediastinal lymphadenopathy September 11:14am Nicotine dependence, cigarettes, in víctor ssion October 13, 2024 11:14am Mediastinal lymphadenopathy October 10:01am Carcinoma of epiglottis November 14, 2024 10:00am Mediastinal lymphadenopathy November 14, 025 10:00am Mediastinal lymphadenopathy November 25, 2024 8:52am Nicotine dependence, cigarettes, in víctor ssion November 25, 2024 8:52am Chief Complaint Admit Date CARCINOMA OF EPIGLOTTIS October 21 10:20am R59.0 - Localized enlarged lymph nodes F ebruary 2024 12:25pm R59.0 - Localized enlarged lymph nodes F ebruary 2024 8:08am s/o INR November 03, 2024 6:53am REVIEW BIOPSY RESULTS November 14, 2024 10 :00am 6 wk FU November 25, 2024 8:5 2am PHYSICAL DECONDITIONING. RX HERE December 132024 11:30am s/o INR February 13, 2025 1:10p m H&N CANCER, IMAGING February 13, 2025 1:27p m 3 MONTH H/N, REVIEW SCANS February 15, 2025 11:25am Reason for Visit Admit Date Mediastinal lymphadenopathy October 10:01am Carcinoma of epiglottis November 14, 2024 10:00am Mediastinal lymphadenopathy November 14, 10:00am Mediastinal lymphadenopathy November 25, 2024 8:52am Nicotine dependence, cigarettes, in víctor ssion November 25, 2024 8:52am Carcinoma of epiglottis February 15, 2025 1 1:25am Mediastinal lymphadenopathy February 15 11:25am Chief Complaint Admit Date R59.0 - Localized enlarged lymph nodes F ebruary 2024 12:15pm CARCINOMA OF EPIGLOTTIS October 21 10:20am R59.0 - Localized enlarged lymph nodes F ebruary 2024 12:25pm R59.0 - Localized enlarged lymph nodes F ebruary 2024 8:08am s/o INR November 03, 2024 6:53am REVIEW BIOPSY RESULTS November 14, 2024 10 :00am 6 wk FU November 25, 2024 8:5 2am PHYSICAL DECONDITIONING. RX HERE December 132024 11:30am s/o INR February 13, 2025 1:10p m H&N CANCER, IMAGING February 13, 2025 1:27p m 3 MONTH H/N, REVIEW SCANS February 15, 2025 11:25am Chief Complaint Admit Date s/o INR November 03, 2024 6:53am REVIEW BIOPSY RESULTS November 14, 2024 10 :00am 6 wk FU November 25, 2024 8:5 2am PHYSICAL DECONDITIONING. RX HERE December 132024 11:30am s/o INR February 13, 2025 1:10p m H&N CANCER, IMAGING February 13, 2025 1:27p m 3 MONTH H/N, REVIEW SCANS February 15, 2025 11:25am 6 M FU March 02, 2025 8:59 am Reason for Visit Admit Date Mediastinal lymphadenopathy October 10:01am Carcinoma of epiglottis November 14, 2024 10:00am Mediastinal lymphadenopathy November 14, 025 10:00am Mediastinal lymphadenopathy November 25, 2024 8:52am Nicotine dependence, cigarettes, in víctor ssion November 25, 2024 8:52am Carcinoma of epiglottis February 15, 2025 1 1:25am Mediastinal lymphadenopathy February 15 11:25am Atherosclerosis of coronary artery 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 March 02, 2025 8:59am Hyperlipidemia March 02, 2025 8:59 am Hypertension March 02, 2025 8:59 am Paroxysmal atrial fibrillation February 8:59am Peripheral vascular occlusive disease Ju ne 2024 8:59am Chief Complaint Admit Date REVIEW BIOPSY RESULTS November 14, 2024 10 :00am 6 wk FU November 25, 2024 8:5 2am PHYSICAL DECONDITIONING. RX HERE December 132024 11:30am s/o INR February 13, 2025 1:10p m H&N CANCER, IMAGING February 13, 2025 1:27p m 3 MONTH H/N, REVIEW SCANS February 15, 2025 11:25am 6 M FU March 02, 2025 8:59 am Reason for Visit Admit Date Carcinoma of epiglottis November 14, 2024 10:00am Mediastinal lymphadenopathy November 14, 025 10:00am Mediastinal lymphadenopathy November 25, 2024 8:52am Nicotine dependence, cigarettes, in víctor ssion November 25, 2024 8:52am Carcinoma of epiglottis February 15, 2025 1 1:25am Mediastinal lymphadenopathy February 15 11:25am Atherosclerosis of coronary artery 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 March 02, 2025 8:59am Hyperlipidemia March 02, 2025 8:59 am Hypertension March 02, 2025 8:59 am Paroxysmal atrial fibrillation February 8:59am Peripheral vascular occlusive disease Ju ne 2024 8:59am Chief Complaint Admit Date s/o INR February 13, 2025 1:10p m H&N CANCER, IMAGING February 13, 2025 1:27p m 3 MONTH H/N, REVIEW SCANS February 15, 2025 11:25am 6 M FU March 02, 2025 8:59 am TROUBLE SWALLOWING/HX OF THROAT CA March 22, 2025 1:19pm s/o INR March 24, 2025 6:24 am SWALLOW TRX. RX? March 27, 2025 10:3 0am Reason for Visit Admit Date Carcinoma of epiglottis February 15, 2025 1 1:25am Mediastinal lymphadenopathy February 15 11:25am Atherosclerosis of coronary artery 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 March 02, 2025 8:59am Hyperlipidemia March 02, 2025 8:59 am Hypertension March 02, 2025 8:59 am Paroxysmal atrial fibrillation February 8:59am Peripheral vascular occlusive disease [facility] 2024 8:59am Chief Complaint Admit Date s/o INR February 13, 2025 1:10p m H&N CANCER, IMAGING February 13, 2025 1:27p m 3 MONTH H/N, REVIEW SCANS February 15, 2025 11:25am 6 M FU March 02, 2025 8:59 am TROUBLE SWALLOWING/HX OF THROAT CA March 22, 2025 1:19pm s/o INR March 31, 2025 10:4 4am SWALLOW TRX. RX? April 13, 2025 12:0 0pm Chief Complaint Admit Date s/o INR February 13, 2025 1:10p m H&N CANCER, IMAGING February 13, 2025 1:27p m 3 MONTH H/N, REVIEW SCANS February 15, 2025 11:25am 6 M FU March 02, 2025 8:59 am TROUBLE SWALLOWING/HX OF THROAT CA March 22, 2025 1:19pm s/o INR March 31, 2025 10:4 4am SWALLOW TRX. RX? April 17, 2025 11: 00am C32.1 Malignant neoplasm of supraglottis April 20, 2025 8:26am Chief Complaint Admit Date s/o INR February 13, 2025 1:10p m H&N CANCER, IMAGING February 13, 2025 1:27p m 3 MONTH H/N, REVIEW SCANS February 15, 2025 11:25am 6 M FU March 02, 2025 8:59 am TROUBLE SWALLOWING/HX OF THROAT CA March 22, 2025 1:19pm s/o INR March 31, 2025 10:4 4am C32.1 Malignant neoplasm of supraglottis April 20, 2025 8:26am SWALLOW TRX. RX? May 03, 2025 9: 30am s/o INR May 05, 2025 11 :24am Additional Source Comments (unrecognized sect ion and content) No Status Records FoundNo Status Records FoundNo Status Records FoundNo Status Records FoundNo Status Records Found INFORMATION SOURCE (unrecogn ized section and content) DATE CREATED AUTHOR 11/16/2018 [facility] [place] DATE CREATED AUTHOR AUTHOR'S ORGANIZ ATION 10/11/2021 [facility] DATE CREATED AUTHOR AUTHOR'S ORGANIZ ATION 12/06/2023 [facility] ([place]) DATE CREATED AUTHOR AUTHOR'S ORGANIZ ATION 05/10/2025 [facility] DATE CREATED AUTHOR AUTHOR'S ORGANIZ ATION 05/19/2025 [facility] Goals (unrecognized section and content) Goals may be documented in a n alternate sectionGoals may be documented in an alternate sectionGoals may be documented in an alternate sectionGoals may be documented in an alternate sectionGoals may be documented in an alternate sectionGoals may be documented in an alternate sectionGoals may be documented in an alternate sectionGoals may be documented in an alternate sectionGoals may be documented in an alternate sectionGoals may be documented in an alternate sectionGoals may be documented in an alternate sectionGoals may be documented in an alternate sectionGoals may be documented in an alternate sectionGoals may be documented in an alternate sectionGoals may be documented in an alternate sectionGoals may be documented in an alternate sectionGoals may be documented in an alternate sectionGoals may be documented in an alternate section No data available for this section No data available for this sectionGoals may be documented in an alternate sectionGoals may be documented in an alternate sectionGoals may be documented in an alternate sectionGoals may be documented in an alternate section No data available for this sectionGoals may be documented in an alternate sectionGoals may be documented in an alternate sectionGoals may be documented in an alternate section No data available for this section No data available for this section No data available for this section No data available for this section No data available for this sectionGoals may be documented in an alternate sectionGoals may be documented in an alternate sectionGoals may be documented in an alternate section No data available for this sectionGoals may be documented in an alternate sectionGoals may be documented in an alternate section Care Teams (unrecognized sec tion and content) Team Status: Active Member Role Status Dates Dr. Lexus Rivera DO Family Provider Active Dr. Lexus Rivera DO Primary Care Provider Active Team Status: Inactive Member Role Status Dates Dr. Lexus Rivera DO Primary Care Provider, Referrin g Provider Active Jolynn Davenport RADIAL DRILL OPERATOR FOR PLASTIC, RADIAL DRILL OPERATOR FOR PLASTIC-C Attending Provider Active Team Status: Active Member Role Status Dates Dr. Lexus Rivera DO Primary Care Provider Active Dr. Zhang Quick MD Attending Provider Active Team Status: Inactive Member Role Status Dates Dr. Lexus Rivera DO Primary Care Provider Active Dr. Zhang Quick MD Attending Provider, Referring Pro vider Active Team Status: Inactive Member Role Status Dates Dr. Lexus Rivera DO Primary Care Provider Active Jolynn Davenport RADIAL DRILL OPERATOR FOR PLASTIC, RADIAL DRILL OPERATOR FOR PLASTIC-C Attending Provider, Referring P rovider Active Team Status: Inactive Member Role Status Dates Dr. Lexus Rivera DO Primary Care Provider Active Dr. Kye Ozuna DO Attending Provider, Emergency Provider Active Team Status: Active Member Role Status Dates Dr. Lexus Rivera DO Primary Care Prov ider, Attending Provider, Referring Provider Active Team Status: Inactive Member Role Status Dates Dr. Lexus Rivera DO Primary Care Provider Active Dr. Derrick Nelson MD Attending Provider, Referring Provider Active Team Status: Active Member Role Status Dates Dr. Lexus Rivera DO Primary Care Provider Active Dr. Zhang Quick MD Attending Provider, Referring Pro vider Active Team Status: Inactive Member Role Status Dates Dr. Lexus Rivera DO Primary Care Prov ider, Attending Provider, Referring Provider Active Team Status: Inactive Member Role Status Dates Dr. Lexus Rivera DO Primary Care Provider, Referrin g Provider Active Dr. Zhang Quick MD Attending Provider Active Team Status: Inactive Member Role Status Dates Dr. Lexus Rivera DO Primary Care Provider Active Dr. Rianna Barnhart MD Attending Provider, Referri ng Provider Active Team Status: Inactive Member Role Status Dates Dr. Lexus Rivera DO Primary Care Provider Active Dr. Susanna Gilbert MD Emergency Provider Active Team Status: Inactive Member Role Status Dates Dr. Lexus Rivera DO Primary Care Provider Active Dr. Susanna Gilbert MD Attending Provider, Emergency Provider Active Team Status: Inactive Member Role Status Dates Dr. Lexus Rivera DO Primary Care Provider Active Dr. Elton Sanchez MD Attending Provider, Referring Pr ovider Active Team Status: Active Member Role Status Dates Dr. Lexus Rivera DO Primary Care Provider Active Dr. Yohana Cook MD Attending Provider Activ e Dr. Elton Sanchez MD Referring Provider Active Team Status: Active Member Role Status Dates Dr. Lexus Rivera DO Primary Care Provider Active Team Status: Inactive Member Role Status Dates Dr. Lexus Rivera DO Primary Care Provider Active Start: August 12, 2024 End: August 13, 2024 Dr. Zhang Quick MD Attending Provider Active S tart: August 12, 2024 End: August 13, 2024 Dr. Zhang Quick MD Referring Provider Active S tart: August 12, 2024 End: August 13, 2024 Dr. Rianna Barnhart MD Other Provider Active Start: August 12, 2024 End: August 13, 2024 Team Status: Inactive Member Role Status Dates Dr. Lexus Rivera DO Primary Care Provider Active Start: August 29, 2024 End: August 29, 2024 Dr. Lexus Rivera DO Referring Provider Active Start: August 29, 2024 End: August 29, 2024 Payal Virgen PA, PA Attending Provider Active Start: August 29, 2024 End: August 29, 2024 Team Status: Inactive Member Role Status Dates Dr. Lexus Rivera DO Primary Care Provider Active Start: October 04, 2024 End: October 04, 2024 Dr. Zhang Quick MD Attending Provider Active S tart: October 04, 2024 End: October 04, 2024 Dr. Zhang Quick MD Referring Provider Active S tart: October 04, 2024 End: October 04, 2024 Dr. Rianna Barnhart MD Other Provider Active Start: October 04, 2024 End: October 04, 2024 Team Status: Active Member Role Status Dates Dr. Lexus Rivera DO Primary Care Provider Active Start: October 04, 2024 Dr. Riki Lizama DO Attending Provider Active Start: October 04, 2024 Dr. Riki Lizama DO Referring Provider Active Start: October 04, 2024 Team Status: Inactive Member Role Status Dates Dr. Lexus Rivera DO Primary Care Provider Active Start: October 07, 2024 End: October 07, 2024 Dr. Lexus Rivera DO Referring Provider Active Start: October 07, 2024 End: October 07, 2024 Dr. Riki Lizama DO Attending Provider Active Start: October 07, 2024 End: October 07, 2024 Team Status: Inactive Member Role Status Dates Dr. Lexus Rivera DO Primary Care Provider Active Start: October 13, 2024 End: October 13, 2024 Dr. Lexus Rivera DO Referring Provider Active Start: October 13, 2024 End: October 13, 2024 Dr. Terence Alba DO Attending Provider Active S tart: October 13, 2024 End: October 13, 2024 Team Status: Inactive Member Role Status Dates Dr. Lexus Rivera DO Primary Care Provider Active Start: October 20, 2024 End: October 20, 2024 Dr. Terence Alba DO Attending Provider Active S tart: October 20, 2024 End: October 20, 2024 Dr. Terence Alba DO Referring Provider Active S tart: October 20, 2024 End: October 20, 2024 Team Status: Inactive Member Role Status Dates Dr. Lexus Rivera DO Primary Care Provider Active Start: October 21, 2024 End: October 21, 2024 Dr. Riki Lizama DO Attending Provider Active Start: October 21, 2024 End: October 21, 2024 Dr. Riki Lizama DO Referring Provider Active Start: October 21, 2024 End: October 21, 2024 Team Status: Active Member Role Status Dates Dr. Lexus Rivera DO Primary Care Provider Active Start: October 24, 2024 Dr. Terence Alba DO Attending Provider Active S tart: October 24, 2024 Dr. Terence Alba DO Referring Provider Active S tart: October 24, 2024 Dr. Terence Alba DO Other Provider Active Start : October 24, 2024 Team Status: Inactive Member Role Status Dates Dr. Lexus Rivrea DO Primary Care Provider Active Start: October 28, 2024 End: October 28, 2024 Dr. Terence Alba , DO Attending Provider Active S tart: October 28, 2024 End: October 28, 2024 Dr. Terence Alba , DO Referring Provider Active S tart: October 28, 2024 End: October 28, 2024 Team Status: Active Member Role Status Dates Dr. Lexus Rivera DO Primary Care Provider Active Start: October 31, 2024 Dr. Terence Alba , Attending Provider Active S tart: October 31, 2024 Dr. Terence Alba DO Other Provider Active Start : October 31, 2024 Team Status: Inactive Member Role Status Dates Dr. Lexus Rivera DO Primary Care Provider Active Start: November 03, 2024 End: November 11, 2024 Dr. Zhang Quick MD Attending Provider Active S tart: November 03, 2024 End: November 11, 2024 Dr. Zhang Quick MD Referring Provider Active S tart: November 03, 2024 End: November 11, 2024 Dr. Rianna Barnhart MD Other Provider Active Start: November 03, 2024 End: November 11, 2024 Team Status: Inactive Member Role Status Dates Dr. Lexus Rivera DO Primary Care Provider Active Start: November 04, 2024 End: November 04, 2024 Dr. Terence Alba DO Attending Provider Active S tart: November 04, 2024 End: November 04, 2024 Dr. Terence Alba DO Referring Provider Active S tart: November 04, 2024 End: November 04, 2024 Team Status: Active Member Role Status Dates Dr. Lexus Rivera DO Primary Care Provider Active Start: November 04, 2024 Dr. Terence Alba DO Attending Provider Active S tart: November 04, 2024 Dr. Terence Alba DO Referring Provider Active S tart: November 04, 2024 Team Status: Inactive Member Role Status Dates Dr. Lexus Rivera DO Primary Care Provider Active Start: November 14, 2024 End: November 14, 2024 Dr. Riki Lizama DO Attending Provider Active Start: November 14, 2024 End: November 14, 2024 Team Status: Active Member Role Status Dates Dr. Lexus Rivera DO Primary Care Provider Active Start: November 14, 2024 Dr. Riki Lizama DO Attending Provider Active Start: November 14, 2024 Dr. Riki Lizama DO Referring Provider Active Start: November 14, 2024 Team Status: Inactive Member Role Status Dates Dr. Lexus Rivera DO Primary Care Provider Active Start: November 15, 2024 End: November 15, 2024 Dr. Lexus Rivera DO Attending Provider Active Start: November 15, 2024 End: November 15, 2024 Dr. Lexus Rivera DO Referring Provider Active Start: November 15, 2024 End: November 15, 2024 Team Status: Inactive Member Role Status Dates Dr. Lexus Rivera DO Primary Care Provider Active Start: November 25, 2024 End: November 25, 2024 Dr. Lexus Rivera DO Referring Provider Active Start: November 25, 2024 End: November 25, 2024 Alexus Abel NP-C Attending Provider Active Start: November 25, 2024 End: November 25, 2024 Team Status: Active Member Role Status Dates Dr. Lexus Rivera DO Primary Care Provider Active Start: December 28, 2024 Dr. Riki Lizama DO Attending Provider Active Start: December 28, 2024 Dr. Riki Lizama DO Referring Provider Active Start: December 28, 2024 Team Status: Active Member Role Status Dates Dr. Lexus Rivera DO Primary Care Provider Active Start: February 13, 2025 Dr. Zhang Quick MD Attending Provider Active S tart: February 13, 2025 Dr. Zhang Quick MD Referring Provider Active S tart: February 13, 2025 Dr. Rianna Barnhart MD Other Provider Active Start: February 13, 2025 Team Status: Inactive Member Role Status Dates Dr. Lexus Rivera DO Primary Care Provider Active Start: February 13, 2025 End: February 13, 2025 Dr. Riki Lizama DO Attending Provider Active Start: February 13, 2025 End: February 13, 2025 Dr. Riki Lizama DO Referring Provider Active Start: February 13, 2025 End: February 13, 2025 Team Status: Inactive Member Role Status Dates Dr. Lexus Rivera DO Primary Care Provider Active Start: February 15, 2025 End: February 15, 2025 Dr. Lexus Rivera DO Referring Provider Active Start: February 15, 2025 End: February 15, 2025 Dr. Riki Lizama DO Attending Provider Active Start: February 15, 2025 End: February 15, 2025 Team Status: Active Member Role Status Dates Dr. Lexus Rivera DO Primary Care Provider Active Start: February 13, 2025 Dr. Riki Lizama DO Attending Provider Active Start: February 13, 2025 Dr. Riki Lizama DO Referring Provider Active Start: February 13, 2025 Team Status: Inactive Member Role Status Dates Dr. Lexus Rivera DO Primary Care Provider Active Start: March 02, 2025 End: March 02, 2025 Dr. Lexus Rivera DO Referring Provider Active Start: March 02, 2025 End: March 02, 2025 Jolynn Davenport NP, RADIAL DRILL OPERATOR FOR [employer]-C Attending Provider Active Start: March 02, 2025 End: March 02, 2025 Team Status: Active Member Role/Relationship Status Dates Dr. Lexus Rivera DO Primary Care Provider Active Team Status: Inactive Member Role/Relationship Status Dates Dr. Lexus Rivera DO Primary Care Provider Active Start: November 14, 2024 End: November 14, 2024 Dr. Riki Lizama DO Attending Provider Active Start: November 14, 2024 End: November 14, 2024 Team Status: Inactive Member Role/Relationship Status Dates Dr. Lexus Rivera DO Primary Care Provider Active Start: November 15, 2024 End: November 15, 2024 Dr. Lexus Rivera DO Attending Provider Active Start: November 15, 2024 End: November 15, 2024 Dr. Lexus Rivera DO Referring Provider Active Start: November 15, 2024 End: November 15, 2024 Team Status: Inactive Member Role/Relationship Status Dates Dr. Lexus Rivera DO Primary Care Provider Active Start: November 25, 2024 End: November 25, 2024 Dr. Lexus Rivera DO Referring Provider Active Start: November 25, 2024 End: November 25, 2024 Alexus Abel NP-C Attending Provider Active Start: November 25, 2024 End: November 25, 2024 Team Status: Active Member Role/Relationship Status Dates Dr. Lexus Rivera DO Primary Care Provider Active Start: December 28, 2024 Dr. Riki Lizama DO Attending Provider Active Start: December 28, 2024 Dr. Riki Lizama DO Referring Provider Active Start: December 28, 2024 Team Status: Inactive Member Role/Relationship Status Dates Dr. Lexus Rivera DO Primary Care Provider Active Start: February 13, 2025 End: February 13, 2025 Dr. Zhang Quick MD Attending Provider Active S tart: February 13, 2025 End: February 13, 2025 Dr. Zhang Quick MD Referring Provider Active S tart: February 13, 2025 End: February 13, 2025 Dr. Rianna Barnhart MD Other Provider Active Start: February 13, 2025 End: February 13, 2025 Team Status: Inactive Member Role/Relationship Status Dates Dr. Lexus Rivera DO Primary Care Provider Active Start: February 13, 2025 End: February 13, 2025 Dr. Riki Lizama DO Attending Provider Active Start: February 13, 2025 End: February 13, 2025 Dr. Riki Lizama DO Referring Provider Active Start: February 13, 2025 End: February 13, 2025 Team Status: Inactive Member Role/Relationship Status Dates Dr. Lexus Rivera DO Primary Care Provider Active Start: February 15, 2025 End: February 15, 2025 Dr. Lexus Rivera DO Referring Provider Active Start: February 15, 2025 End: February 15, 2025 Dr. Riki Lizama DO Attending Provider Active Start: February 15, 2025 End: February 15, 2025 Team Status: Inactive Member Role/Relationship Status Dates Dr. Lexus Rivera DO Primary Care Provider Active Start: March 02, 2025 End: March 02, 2025 Dr. Lexus Rivera DO Referring Provider Active Start: March 02, 2025 End: March 02, 2025 Jolynn Davenport RADIAL DRILL OPERATOR [employer], RADIAL DRILL OPERATOR [employer]-C Attending Provider Active Start: March 02, 2025 End: March 02, 2025 Team Status: Inactive Member Role/Relationship Status Dates Dr. Lexus Rivera DO Primary Care Provider Active Start: February 13, 2025 End: February 13, 2025 Dr. Zhang Quick MD Attending Provider Active S tart: February 13, 2025 End: February 13, 2025 Dr. Zhang Quick MD Referring Provider Active S tart: February 13, 2025 End: February 13, 2025 Dr. Rianna Barnhart MD Other Provider Active Start: February 13, 2025 End: February 13, 2025 Team Status: Inactive Member Role/Relationship Status Dates Dr. Lexus Rivera DO Primary Care Provider Active Start: February 13, 2025 End: February 13, 2025 Dr. Riki Lizama DO Attending Provider Active Start: February 13, 2025 End: February 13, 2025 Dr. Riki Lizama DO Referring Provider Active Start: February 13, 2025 End: February 13, 2025 Team Status: Inactive Member Role/Relationship Status Dates Dr. Lexus Rivera DO Primary Care Provider Active Start: February 15, 2025 End: February 15, 2025 Dr. Lexus Rivera DO Referring Provider Active Start: February 15, 2025 End: February 15, 2025 Dr. Riki Lizama DO Attending Provider Active Start: February 15, 2025 End: February 15, 2025 Team Status: Inactive Member Role/Relationship Status Dates Dr. Lexus Rivera DO Primary Care Provider Active Start: March 02, 2025 End: March 02, 2025 Dr. Lexus Rivera DO Referring Provider Active Start: March 02, 2025 End: March 02, 2025 Jolynn Davenport NP, RADIAL DRILL OPERATOR [employer]-C Attending Provider Active Start: March 02, 2025 End: March 02, 2025 Team Status: Inactive Member Role/Relationship Status Dates Dr. Lexus Rivera DO Primary Care Provider Active Start: March 22, 2025 End: March 22, 2025 Dr. Lexus Rivera DO Attending Provider Active Start: March 22, 2025 End: March 22, 2025 Dr. Lexus Rivera DO Referring Provider Active Start: March 22, 2025 End: March 22, 2025 Team Status: Active Member Role/Relationship Status Dates Dr. Lexus Rivera DO Primary Care Provider Active Start: March 24, 2025 Dr. Zhang Quick MD Attending Provider Active S tart: March 24, 2025 Dr. Zhang Quick MD Referring Provider Active S tart: March 24, 2025 Dr. Rianna Barnhart MD Other Provider Active Start: March 24, 2025 Team Status: Active Member Role/Relationship Status Dates Dr. Lexus Rivera DO Primary Care Provider Active Start: March 27, 2025 Dr. Riki Lizama DO Attending Provider Active Start: March 27, 2025 Dr. Riki Lizama DO Referring Provider Active Start: March 27, 2025 Team Status: Inactive Member Role/Relationship Status Dates Dr. Lexus Rivera DO Primary Care Provider Active Start: March 31, 2025 End: April 13, 2025 Dr. Zhang Quick MD Attending Provider Active S tart: March 31, 2025 End: April 13, 2025 Dr. Zhang Quick MD Referring Provider Active S tart: March 31, 2025 End: April 13, 2025 Dr. Rianna Barnhart MD Other Provider Active Start: March 31, 2025 End: April 13, 2025 Team Status: Active Member Role/Relationship Status Dates Dr. Lexus Rivera DO Primary Care Provider Active Start: April 13, 2025 Dr. Riki Lizama DO Attending Provider Active Start: April 13, 2025 Dr. Riki Lizama DO Referring Provider Active Start: April 13, 2025 Team Status: Active Member Role/Relationship Status Dates Dr. Lexus Rivera DO Primary Care Provider Active Start: April 17, 2025 Dr. Riki Lizama DO Attending Provider Active Start: April 17, 2025 Dr. Riki Lizama DO Referring Provider Active Start: April 17, 2025 Team Status: Inactive Member Role/Relationship Status Dates Dr. Lexus Rivera DO Primary Care Provider Active Start: April 20, 2025 End: April 20, 2025 Dr. Riki Lizama DO Attending Provider Active Start: April 20, 2025 End: April 20, 2025 Dr. Riki Lizama DO Referring Provider Active Start: April 20, 2025 End: April 20, 2025 Team Status: Inactive Member Role/Relationship Status Dates Dr. Lexus Rivera DO Primary Care Provider Active Start: April 20, 2025 End: April 20, 2025 Dr. Riki Lizama DO Attending Provider Active Start: April 20, 2025 End: April 20, 2025 Dr. Riki Lizama DO Referring Provider Active Start: April 20, 2025 End: April 20, 2025 Team Status: Active Member Role/Relationship Status Dates Dr. Lexus Rivera DO Primary Care Provider Active Start: May 03, 2025 Dr. Riki Lizama DO Attending Provider Active Start: May 03, 2025 Dr. Riki Lizama DO Referring Provider Active Start: May 03, 2025 Team Status: Inactive Member Role/Relationship Status Dates Dr. Lexus Rivera DO Primary Care Provider Active Start: May 05, 2025 End: May 05, 2025 Dr. Zhang Quick MD Attending Provider Active S tart: May 05, 2025 End: May 05, 2025 Dr. Zhang Quick MD Referring Provider Active S tart: May 05, 2025 End: May 05, 2025 Dr. Rianna Barnhart MD Other Provider Active Start: May 05, 2025 End: May 05, 2025 FOR RECORDS PERTAINING TO PATIENTS WHO ARE [...] BE BASED ON THE PRIMARY CLINICAL RECORDS. [employer] provides no warranty or guarantee of the accuracy or completeness of information in this document.
[2025-05-20 11:51] LABS: Hematocrit 28.3 % (40-54); Hemoglobin 9.6 g/dL (13.0-16.5); Immature Granulocytes Count 0.070 X10^3/uL (0.0-0.0); Mean Corp Hgb Conc 33.9 g/dL (32-36); Mean Corpuscular Volume 94.3 fL (80-94); Mean Platelet Vol. 10.3 fl (6.2-12.0); NRBC Flagged by Analyzer 0 % (0-5); POSITIVE DIFFERENTIAL YES; Platelet Count 162 K/mm3 (150-450); RBC Distribution Width CV 12.8 % (11.6-14.6); RBC Distribution Width SD 44.2 fl (35.1-43.9); Red Blood Count 3.00 M/mm3 (4.6-6.2); White Blood Count 14.2 K/mm3 (4.4-11.0)
--- NOTE | 2025-05-20 11:56 | EX.ED.DYSGE1 ---
HPI History of Present Illness Chief Complaint: Fever Narrative Narrative: Patient is a 74-year-old male past medical history of macular degeneration, carcinoma epiglottis, alcohol use, COPD, heart failure, CVA, chronic kidney disease, diabetes who presents to the emergency department the chief complaint of weakness, fever and not feeling well. He states that he has been ill for the last few days now and notes that he is coughing up more sputum than normal for himself. He states that he was a smoker for extended period time. He states that he is having some shortness of breath with this as well. He states that his diffuse body aches. 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 Smoker Wears hearing aid Wears dentures Alcohol use Ambulates with cane Neuropathy Back pain Blackout Difficulty swallowing Former smoker Shortness of breath on exertion Leg cramps History of edema Stroke/cerebrovascular accident History of atrial fibrillation History of echocardiogram History of stress test Cardiology follow-up encounter Chronic diastolic (congestive) heart failure Hypertension Acute on chronic diastolic (congestive) heart failure History of non-ST elevation myocardial infarction (NSTEMI) (11/02/19) Upper GI bleed (11/02/19) Paroxysmal atrial fibrillation History of CVA (cerebrovascular accident) (10/2015) Chronic renal failure Claudication Peripheral vascular occlusive disease Hyperlipidemia Atherosclerosis of coronary artery of [place] heart without angina pectoris Stenosis of left subclavian artery Anxiety and depression CKD (chronic kidney disease) DDD (degenerative disc disease) Marijuana use Narcolepsy Diabetic neuropathy Osteoarthritis Type 2 diabetes mellitus Lacunar infarct, acute Home Medications ?Medication ?Instructions ?Recorded ?Last Taken ?Type pregabalin 150 mg capsule 150 mg PO DAILY pain 11/06/15 10/12/20 22:00 History warfarin 1 mg tablet 2 mg PO DAILY 02/22/24 10/30/24 History albuterol sulfate 90 mcg/actuation 2 puff inhalation Q4 PRN wheezing 10/13/24 Unknown History aerosol inhaler Allergy/AdvReac Type Severity Reaction Status Date / Time metformin AdvReac Nausea/Vom/ Verified 05/20/25 11:16 Diarrhea Family History Brother Cancer lung Son Cancer Surgical History S/P percutaneous endoscopic gastrostomy (PEG) tube placement History of laryngoscopy History of cataract surgery History of colonoscopy History of cholecystectomy (~10/2020) History of left heart catheterization (11/13/04) History of angioplasty of peripheral vessel (09/2018) Social History Smoking Status: Former smoker quit date: 09/14/97 Tobacco: How many years used: 45 how long ago did patient quit smokin years ago alcohol intake: current alcohol intake frequency: 0-2 drinks per day Alcohol type: hard liquor substance use type: marijuana caffeine: Yes Type: carbonated beverages Number of servings: 1 ROS ROS ED ROS Narrative Constitutional: Complains of chills whole body aches as noted above Eyes: Denies double vision Cardiovascular: Denies chest pain Respiratory: Complains of cough as noted above as well as shortness of breath Abdomen: Denies abdominal pain nausea vomiting diarrhea : Denies any urinary symptoms Neurological: Denies numbness, weakness, tingling Musculoskeletal: Denies back pain Skin: Denies any rashes or lesions EXAM Physical Exam Narrative Exam Narrative: General: Patient is lying in bed rest comfortably did not appear to be in acute distress Head: Atraumatic, normocephalic Eyes: PERRL bilaterally, EOMI bilateral, no conjunctival injection noted Neck: Soft, supple, trachea midline Cardiovascular: Patient tachycardic with a regular rhythm Respiratory: Patient has coarse breath sounds noted bilaterally Abdomen: Soft, nondistended, no tenderness palpation Extremities: +5/5 strength noted in the bilateral upper and lower extremities, radial pulses +2/4 in the bilateral extremities Neurological: Patient follow commands knew that he was at [facility] year is 2024 Skin: Warm, dry, intact no rashes or lesions noted Const Vital Signs: 05/20/25 11:15 05/20/25 11:27 05/20/25 11:56 Temperature 100.3 F H Temperature Source Oral Pulse Rate 105 H Pulse Rate [Lying] Pulse Rate [Sitting (for 1 minute prior to obtaining)] Pulse Rate [Standing (for 1 minute prior to obtaining)] Respiratory Rate 16 Respiratory Effort Normal Respiratory Depth Normal Respiratory Pattern Normal Blood Pressure 93/58 L Blood Pressure [Lying] Blood Pressure [Sitting (for 1 minute prior to obtaining)] Blood Pressure [Standing (for 1 minute prior to obtaining)] Blood Pressure Mean 69 Blood Pressure Mean [Lying] Blood Pressure Mean [Sitting (for 1 minute prior to obtaining)] Blood Pressure Mean [Standing (for 1 minute prior to obtaining)] Pulse Ox 94 Oxygen Delivery Method Room Air Room Air Room Air 05/20/25 11:58 05/20/25 13:23 05/20/25 13:59 Temperature Temperature Source Pulse Rate 95 96 Pulse Rate [Lying] 90 Pulse Rate [Sitting (for 1 minute prior to obtaining)] 94 Pulse Rate [Standing (for 1 minute prior to obtaining)] 97 Respiratory Rate 18 18 Respiratory Effort Respiratory Depth Respiratory Pattern Normal Blood Pressure 95/44 L Blood Pressure [Lying] 98/46 L Blood Pressure [Sitting (for 1 minute prior to obtaining)] 82/41 L Blood Pressure [Standing (for 1 minute prior to obtaining)] 73/41 L Blood Pressure Mean 61 Blood Pressure Mean [Lying] 63 Blood Pressure Mean [Sitting (for 1 minute prior to obtaining)] 54 Blood Pressure Mean [Standing (for 1 minute prior to obtaining)] 51 Pulse Ox 96 Oxygen Delivery Method Room Air MDM MDM MDM Narrative Medical decision making narrative: Patient is a 74-year-old male who presented to the emergency department chief complaint of cough, whole body aches, fever and not feeling well. On the differential diagnose includes but not limited to pneumonia, ACS, upper respiratory infection secondary viral etiology, COPD exacerbation, CHF exacerbation. Once the workup is obtained reviewed he will be reevaluated. Patient will not be given 30 cc/kg bolus of IV fluids he will be given 1500 mL as he history of heart failure which his echocardiogram from 2021 was reviewed which showed grade 1 diastolic dysfunction with an EF of 60%. Patient will given 1500 mL which was ordered at 11:30 AM. Patient CBC reviewed which showed a leukocytosis of 14,000, he was not 0.6, platelet count 162. Patient's INR was noted be 3.6 he is on warfarin, sodium normal 130, potassium normal at 4.3, creatinine was 1.67. Patient's lactic acid normal 1.5, AST and ALT are 25 and 17 respectively. Patient proBNP was 1246. Patient urinalysis reviewed which showed 5 leukocyte esterase 10-25 white cells with 1+ bacteria. Patient chest x-ray reviewed by myself by radiology which showed cardiomegaly with pulmonary congestion and edema superimposed pneumonia cannot be excluded. Patient's EKG reviewed showed sinus rhythm rate of 99 bpm OH interval 140. Patient was given Rocephin and azithromycin at 12:15 PM. Attempted to get the patient up and ambulate him and he became very lightheaded. Nursing staff checked orthostatic vital signs which were positive. Given these are positive do not feel the need for vasopressors at this point time. Will discuss case with hospitalist for admission for gentle rehydration given his history of heart failure as well as questionable pneumonia. Discussed case with hospitalist Dr. Patel who accept the patient for admission. Notified the patient he is agreeable this plan as well all question concerns answered. Lab Data Labs: Laboratory Results - last 24 hr 05/20/25 05/20/25 11:40 12:35 WBC 14.2 H RBC 3.00 L Hgb 9.6 L Hct 28.3 L MCV 94.3 H MCH 32.0 MCHC 33.9 RDW Std Deviation 44.2 H RDW Coeff of [place] 12.8 Plt Count 162 MPV 10.3 Immature Gran % (Auto) 0.500 Neut % (Auto) 93.3 H Lymph % (Auto) 1.1 L [place] % (Auto) 4.9 Eos % (Auto) 0.1 Baso % (Auto) 0.1 Absolute Neuts (auto) 13.2 H Absolute Lymphs (auto) 0.16 L Nucleated RBC % 0 PT 36.6 H INR 3.6 APTT 49.9 H Sodium 138 Potassium 4.3 Chloride 102 Carbon Dioxide 24.8 Anion Gap 11 BUN 55 H Creatinine 1.67 H Estim Creat Clear Calc 35.18 L Est GFR (MDRD) Non-Af 42 L BUN/Creatinine Ratio 32.6 H Glucose 153 H Lactic Acid 1.5 Calcium 8.7 Total Bilirubin 0.61 AST 25 ALT 17 Alkaline Phosphatase 83 NT pro BNP II 1246 Total Protein 6.7 Albumin 3.4 Globulin 3.4 Albumin/Globulin Ratio 1.0 Urine Color Yellow Urine Clarity Sl. Cloudy Urine pH 6.0 Ur Specific [place] 1.015 Urine Protein 30 H Urine Glucose (UA) Normal Urine Ketones Negative Urine Occult Blood 25 H Urine Nitrite Negative Urine Bilirubin Negative Urine Urobilinogen Normal Ur Leukocyte Esterase 500 H Urine RBC 0 SEEN Urine WBC 10-25 SEEN Ur Squamous Epith Cells 0-5 SEEN Urine Bacteria 1+ Urine Mucus 0 SEEN Radiography Diagnostic Testing: Clinical Impression(s) from Imaging Studies Chest X-Ray 05/20/25 12:15 IMPRESSION: Cardiomegaly with pulmonary congestion and edema. Superimposed pneumonia cannot be excluded. Reading Location: [facility] Discharge Plan Triage Chief Complaint: Fever Other Complaint: Shortness of Breath ED Provider: Franco Avila Dx/Rx/DC Orders Clinical Impression: COPD exacerbation, Pneumonia, Orthostatic hypotension, Dehydration, Lightheaded Prescriptions: No Action albuterol sulfate 90 mcg/actuation HFA aerosol inhaler 2 puff inhalation Q4 PRN (Reason: wheezing) pregabalin 150 MG capsule 150 mg PO DAILY Patient Comments: Pain warfarin 1 mg tablet 2 mg PO DAILY Protocol: Dose Management Condition: Thursday Dose/Route: 2 mg Instruction: 2 x 1 mg tablets Condition: Thursday Dose/Route: 2 mg Instruction: 2 x 1 mg tablets Condition: Thursday Dose/Route: 2 mg Instruction: 2 x 1 mg tablets Condition: Thursday Dose/Route: 2 mg Instruction: 2 x 1 mg tablets Condition: Dose/Route: 2 mg Instruction: 2 x 1 mg tablets Condition: Thursday Dose/Route: 2 mg Instruction: 2 x 1 mg tablets Condition: Thursday Dose/Route: 2 mg Instruction: 2 x 1 mg tablets Protocol Text: Adjustment Start Date: Thursday05/05/25 INR Value: 3.0 INR Date: 05/05/25 Recheck Date: 06/04/25 Primary Care Provider: Renzo Davidson Referrals: Renzo Davidson DO [Primary Care Provider] - Print Language: Slovak Disposition Disposition: Acute Care Hospital [facility]
[2025-05-20] MEDS: 0.9% Normal Saline (1000mL) 1,000 ML 999 ML IV ×3 (12:02→14:56)
--- NOTE | 2025-05-20 12:15 | RAD_ITS ---
EXAM: XR Chest, 1 View CLINICAL INDICATION: SOB TECHNIQUE: Frontal view of the chest. COMPARISON: No relevant prior studies available. FINDINGS: LUNGS AND PLEURAL SPACES: See below. HEART: Cardiomegaly with pulmonary congestion and edema. Superimposed pneumonia cannot be excluded. MEDIASTINUM: Unremarkable. Normal mediastinal contour. BONES/JOINTS: Unremarkable. No acute fracture. RAD/Chest PA and Lateral IMPRESSION: Cardiomegaly with pulmonary congestion and edema. Superimposed pneumonia cannot be excluded. Reading Location: [id number]
[2025-05-20 12:25] LABS: AST(SGOT) 25 U/L (<=37); Alanine Aminotransfer ALT/SGPT 17 U/L (<=46); Albumin, Serum 3.4 g/dL (3.4-4.8); Alkaline Phosphatase 83 U/L (40-129); Anion Gap 11 (5-15); BUN 55 mg/dL (4-19); BUN/Creat Ratio 32.6 RATIO (10-20); Calcium,Total 8.7 mg/dL (7.6-11.0); Carbon Dioxide 24.8 mmol/L (21.0-32.0); Chloride 102 mmol/L (98-108); Estimated Creatinine Clearance 35.18 ml/min (50-250); Globulin 3.4 g/dL (2.2-4.2); Glucose 153 mg/dL (70-99); Potassium 4.3 mmol/L (3.3-5.1); Pro- Brain NATRIURETIC PEPTIDE 1246 pg/mL (<=1800)
[2025-05-20] MEDS: Ceftriaxone 2 GM in 0.9% Normal Saline (50mL MB+) 50 ML IV (12:32)
[2025-05-20 12:35] LABS: Partial Thromboplast Time 49.9 Seconds (24.1-36.2)
[2025-05-20 12:45] LABS: Mucous, Urine 0 SEEN /hpf (<or=2+); Red Blood Cells-Urine 0 SEEN /hpf (0-5)
[2025-05-20 12:48] LABS: Prothrombin Time (Protime)PT. 36.6 SECONDS (11.7-14.9)
[2025-05-20 12:49] LABS: Color, Urine Yellow (Yellow); Glucose, Dipstick Normal (Normal); Ketone-Dipstick Negative (Negative); Leukocyte Esterase-Dipstick 500 /ul (Negative); Nitrite-Dipstick Negative (Negative); Occult Blood-Urine 25 /ul (Negative); Protein-Dipstick 30 mg/dl (Negative); Specific Gravity, Urine 1.015 (1.002-1.030); Urine Bilirubin Dipstick Negative (Negative)
[2025-05-20 12:57] LABS: Squamous Epithelial Cells - UA 0-5 SEEN /hpf (0-5)
[2025-05-20] MEDS: Azithromycin 500 MG in 0.9% Normal Saline (250mL Bag) 250 ML 250 MG IV (13:21)
--- OUTSIDE RECORDS SUMMARY | 2025-05-20 15:19 | XMS RPT_ITS | CCD ---
Author Organization [facility] Care Team Providers Care Office Sweeper Name Role Phone ERI Vinson, Lazara Mathew Unavailable UnavailDerrick Parry Attending Unavailable Branden Shannon Primary Care Unavailable Dr. Lexus Rivera Primary Care Provider [phone] Dr. Lexus Rivera Referring Provider [phone] SUSANNA Ruggiero NP Attending Provider [phone] Dr. Lexus Rivera Primary Care Provider 1([facility]) Dr. Lexus Rivera Referring Provider 1([facility])2014 FRANCOISE [place] NPC Jolynn Attending Provider Dr. Lexus Rivera Primary Care Provider [phone] Dr. Lexus Rivera Referring Provider [phone] FRANCOISE [place] NPC Jolynn Attending Provider Dr. Zhang Quick Attending Provider [phone] Dr. Lexus Rivera Primary Care Provider 1([facility]) Dr. Lexus Rivera Referring Provider 1([facility])2014 SUSANNA [place] NP Attending Provider Dr. Lexus Rivera Primary Care Provider [phone] Dr. Lexus Rivera Referring Provider [phone] Dr. Zhang Quick Attending Provider [phone] LEXUS RIVERA DO Primary Care Physician ([facility]) Dr. Lexus Rivera Primary Care Provider Dr. Lexus Rivera Referring Provider 1([facility])[phone] FRANCOISE [place] NPC Jolynn Attending Provider LEXUS RIVERA DO Attending Unavailable LEXUS RIVERA DO Primary Care Unavailable NICOLE RIOS LEXUS Attending Unavailable NICOLE DO, LEXUS Primary Care Unavailable HALKO DO, LEXUS Attending Unavailable NICOLE DO, LEXUS Primary Care Unavailable NICOLE DO, LEXUS Attending Unavailable NICOLE RIOS, LEXUS Primary Care Unavailable Dr. Lexus Rivera Primary Care Provider Dr. Lexus Rivera Referring Provider Issac RODRÍGUEZ, DISEASE EDUCATION SPECIALIST-C Jolynn Attending Provider Dr. Yohana Cook Attending [...] Provider Parth RIOS, Dr. Pratt Attending Provider Parth DO, Dr. Pratt Referring Provider Dl RIOS, Dr. Lyn Attending Provider Dl RIOS, Dr. Lyn Referring Provider Jolynn Benoit Attending Provider Nicole RIOS, Dr. Muller Primary Care Provider Abdelrahman OSCAR, Dr. Holcomb Attending Provider Abdelrahman OSCAR, Dr. Holcomb Referring Provider Obey OSCAR, Dr. Blacna Other Provider Nicole RIOS, Dr. Muller Primary [...] Care Unavailable Obey, Jayaprakas Consulting Unavailable Abdelrahman, Kerman Referring Unavailable Abdelrahman, Kerman Attending Unavailable Halko, Lexus Primary Care Unavailable [...] Care Unavailable Obey, Jayaprakas Consulting Unavailable Abdelrahman, Kerman Attending Unavailable Abdelrahman, Zhang Referring Unavailable Halko, [...] Consulting Unavailable Abdelrahman, Zhang Referring Unavailable Abdelrahman, Kerman Attending Unavailable Halko, Lexus Primary Care Unavailable [...] Primary Care Unavailable Brown, Terence Attending Unavailable Brown, Terence Referring Unavailable Halko, Lexus Primary Care Unavailable Obey, Jayaprakas Consulting Unavailable Abdelrahman, Kerman Referring Unavailable Abdelrahman, Zhang Attending Unavailable Dl, Riki Attending Unavailable Halko, Lexus Primary Care Unavailable Dl, Riki Referring Unavailable Halko, Lexus Referring Unavailable Halko, Lexus Attending Unavailable Halko, Lexus Primary Care Unavailable Halko, Lexus Primary Care Unavailable Obey, Jayaprakas Consulting Unavailable Abdelrahman, Kerman Referring Unavailable Abdelrahman, Kerman Attending Unavailable Dl, Riki Attending Unavailable Halko, [...] Drug Allergy 02-23-20 21 Nausea/Vom/Gilda rrhea, dairrhea [facility] (9 sources) Triiodobenzoic Acids Propensity to adverse reactions 11-26-19 Vomiting [facility] Comment on above: diarrhea, N/V, chill s (1 source) metFORMIN Drug Allergy 03-02-20 [facility] Repository (1 source) Iodinated Contrast Media Drug allergy (disorder) 03-02-20 [facility] Repository Medications Current Medications Medication Drug Class(es) Dates Sig (Normalized) Sig (Original) acetaminophen 325 mg / HYDROcodone bitartrate 5 mg oral tablet (20 sources) Opioid Agonist Start: 04-04-2025 End: 05-04-2025 take 1 tablet by mouth once daily as needed for pain [place] 325- 5 mg oral tablet Dose = 1 tab(s), Oral, qDay, PRN pain, fill on or after 04/04/2025, # 20 tab(s), 0 Refill(s), Pharmacy: [facility], DDD (degenerative disc disease), lumbar, [...] every six hours as needed for pain [place] 325- 5 mg oral tablet Dose = 1 tab(s), Oral, q6h, PRN for pain, to be filled on or after 07/28/2023; oarrs reviewed and appropriate, # 20 tab(s), 0 Refill(s), Pharmacy: [facility], Chronic low back pain, 175, cm, 07/28/23 10:21:00 EST, Height, 90.5, kg, 07/28/23 10:21:00 EST, Dosing Weight Start Date: 07/28/23 Stop Date: 08/27/23 Status: Ordered Start: 11-26-2022 End: 12-26-2022 take 1 tablet by mouth every six hours as needed for pain [place] 325- 5 mg oral tablet Dose = 1 tab(s), Oral, q6h, PRN for pain, to be filled on or after 11/26/2022; oarrs reviewed and appropriate, # 20 tab(s), 0 Refill(s), Pharmacy: [facility], Chronic low back pain, 170.2, [...] by mouth as needed, takes rarely HYDROCODONE-ACETAMINOPHEN [id number] Jackie Valle RN Start: 03-27-2015 End: 05-07-2016 take 1-2 tablets by mouth every six hours as needed HYDROCODONE-ACETAMINOPHEN 5-325 MG TABS 1-2 tablets by mouth every 6 hours as needed HYDROCODONE-ACETAMINOPHEN [id number] Jackie Valle RN [id number] 200 actuat albuterol 0.09 mg/actuat metered dose [...] qHS, # 30 tab(s), 0 Refill(s), Pharmacy: [facility], 170.2, cm, 11/26/22 9:25:00 EDT, Height Start Date: 11/26/22 Status: Ordered dapagliflozin 5 mg oral tablet (20 sources) Sodium-Glucose Cotransporter 2 Inhibitor Start: 06-19-2023 dapagliflozin 5 mg oral tablet Dose : 5 mg = 1 tab(s), Oral, qDay, new dose, # 90 tab(s), 3 Refill(s), Pharmacy: [facility], 170.5, cm, 06/02/23 9:59:00 EDT, [...] supplies., # 1 EA, 0 Refill(s), Pharmacy: [facility], 172, cm, 08/25/23 9:41:00 EST, Height, 86.4, kg, 08/25/23 9:53:00 EST, Dosing Weight Start Date: 09/17/23 Status: Ordered Nebulizer (Compressor) (5 sources) Start: 06-22-2024 Nebulizer (Com pressor) See Instructions, dx J44.9 nebulizer with mask/pipe and tubing, # 1 EA, 0 Refill(s), Pharmacy: [facility], COPD mixed type, 171.8, cm, 06/21/24 10:20:00 EDT, Height, 72.7, kg, 06/21/24 10:20:00 EDT, Dosing Weight Start Date: 06/22/24 Status: Ordered Medication Dispense Status: Completed Quantity: 1.0 Unit: EA Total Allowed Fills: 1 Fills Dispensed: 0 Indications: Chronic obstructive pulmonary disease, unspecified; Start: 06-22-2024 Nebulizer (Com pressor) See Instructions, dx J44.9 nebulizer with mask/pipe and tubing, # 1 EA, 0 Refill(s), Pharmacy: [facility], COPD mixed type, 171.8, cm, 06/21/24 [...] pain, # 25 tab(s), 0 Refill(s), Pharmacy: [facility], 170.2, cm, 12/27/24 9:11:00 EDT, [...] 3 as needed for chest pain. NITROGLYCERIN [id number] Charissa Lock RN pregabalin 150 mg oral [...] tablet by mouth three times daily PREGABALIN [id number] Jackie Valle RN semaglutide 14 mg oral table t (20 sources) Start: 05-07-2023 End: 01-24-2024 Rybelsus 14 mg oral tablet D ose : 14 mg = 1 tab(s), Oral, qDay, take at least 30 minutes before first food, beverage, or other oral meds, # 90 tab(s), 1 Refill(s), Pharmacy: [facility], 175, cm, 07/28/23 10:21:00 EST, Height, kg, 07/28/23 10:21:00 EST, Dosing Weight Start Date: 07/28/23 Stop Date: 01/24/24 Status: Ordered Start: 01-28-2023 Rybelsus 7 mg oral tablet Dose : 7 mg = 1 tab(s), Oral, qDay, take at least 30 minutes before first food, beverage, or other oral meds, # 30 tab(s), 0 Refill(s), Pharmacy: [facility], 170.2, cm, 01/28/23 8:50:00 EDT, [...] qDay, # 90 tab(s), 3 Refill(s), Pharmacy: [facility], 170, cm, 11/01/24 11:27:00 EST, Height, kg, 11/01/24 11:27:00 EST, Dosing Weight Start Date: 11/01/24 Stop Date: 10/27/25 Status: Ordered Medication Dispense Status: Completed Quantity: 90.0 Unit: tab(s) Total Allowed Fills: 4 Fills Dispensed: 0 Start: 11-01-2024 warfarin 1 mg oral tablet Dose : 1 mg = 1 tab(s), Oral, qDay, # 90 tab(s), 3 Refill(s), Pharmacy: [facility], 170, cm, 11/01/24 11:27:00 EST, [...] qDay, # 90 tab(s), 3 Refill(s), Pharmacy: [facility], 172, cm, 08/25/23 9:41:00 EST, Height, [...] wheezing, # 360 mL, 5 Refill(s), Pharmacy: [facility], 171.8, cm, 06/21/24 10:20:00 EDT, Height, [...] One tablet by mouth daily AMLODIPINE BESYLATE [id number] Lazara Vinson, ERI apixaban 5 mg oral [...] TABS One tablet by mouth daily ASPIRIN [id number] Jackie Valle RN take 1 tablet by yana th once daily ASPIRIN 325 MG TABS One tablet by mouth daily ASPIRIN [id number] Buffy Espinoza atorvastatin 40 mg oral tablet [...] diarrhea, # 60 packet(s), 0 Refill(s), Pharmacy: [facility], 170.5, cm, 06/02/23 9:59:00 EDT, Height, kg, 06/02/23 9:59:00 EDT, Dosing Weight Start Date: 06/19/23 Stop Date: 07/19/23 Status: Ordered SOD PICOSULFATE-MAG OX-CIT ACD (2 sources) Start: 12-20-2015 End: 05-07-2016 PREPOPIK 10-3.5-12 MG-GM-GM PACK use as per instructions SOD PICOSULFATE-MAG OX-CIT ACD [id number] Lazara Vinson RN Start: 12-20-2015 PREPOPIK 10-3. 5-12 MG-GM-GM PACK use as per instructions SOD PICOSULFATE-MAG OX-CIT ACD [id number] Patti Luciano clopidogrel 75 mg oral tablet (20 sources) [id number] Platelet Inhibitor Start: 02-27-2016 End: 09-02-2019 take 1 tablet by mouth once daily Clopidogrel 75 MG tablet Discontinued 75 mg PO DAILY February 27, 2016 12:00am September 02, 2019 12:15pm doxycycline anhydrous 40 mg delayed release oral capsule (2 sources) Tetracycline-class Drug Start: 03-27-2015 End: 03-28-2015 ORACEA 40 MG CPDR DOXYCYCLINE [id number] Zhang Quick MD empagliflozin 25 mg oral [...] day(s), # 225 tab(s), 1 Refill(s), Pharmacy: [facility], 172, cm, 11/03/23 8:30:00 EST, Height, kg, 11/03/23 8:30:00 EST, Dosing Weight Start Date: 11/20/23 Status: Ordered Start: 06-15-2023 take 1.5 tablets by mouth at breakfast, then take 1 tablet by mouth at dinner glipiZIDE 5 mg oral tablet See Instructions, 1.5 tab(s) at breakfast and 1 tablet at dinner; 90 day(s), # 225 tab(s), 1 Refill(s), Pharmacy: [facility], 170.5, cm, 06/02/23 9:59:00 EDT, Height, [...] TABS One tablet by mouth daily GLIPIZIDE [id number] Payal Virgen PA-C GLUCOSE BLOOD (2 sources) ONETOUCH VERIO S TRP use as directed once daily GLUCOSE BLOOD [id number] Buffy Espinoza End: 05-07-2016 ONETOUCH VERIO STRP use as d irected once daily GLUCOSE BLOOD [id number] Lazara Vinson, ERI 24 hr isosorbide mononitrate [...] TABS One tablet by mouth daily LINAGLIPTIN [id number] Payal Virgen PA-C lisinopril 10 mg oral [...] Two tablets by mouth daily METFORMIN HCL [id number] Jackie Valle RN methocarbamol 750 mg oral [...] TABS One tablet by mouth daily METHOCARBAMOL [id number] Jackie Valle RN 24 hr metoprolol succinate [...] tablet by mouth twice daily METOPROLOL TARTRATE [id number] Jackie Valle RN modafinil 200 mg oral [...] by mouth daily at bedtime PRAVASTATIN SODIUM [id number] Jackie Valle RN Semaglutide (Rybelsus) 3 mg [...] NTG PRN Other aftercare (2 sources) Other senior living (current) drug therapy; Translations: [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 . [facility] Comment on above: Order Comment: [id number] 1CYSTATIN C SERUM RMT Result Comment: Test Ordered: [id number] Cystatin C Cystatin C 2.17 [H ] mg/L Reference Range: 0.78-1.15 Performed at: [facility] [address] [id number] Manager Benefit: Davis Castillo PhD, Phone: [phone] Performed By: #### L [id number] #### [facility] Laboratory [address] [place], [address] Anion gap in Serum or Plasma Ordered By: Rianna Barnhart on 05-05-2025 Anion gap [Moles/Vol] 9 mmol/L 5- [facility] BUN/creatinine ratioOrdered By: Rianna Barnhart on 05-05-2025 Urea nitrogen/Creatinine [Mass ratio] 25.3 mg/mg High 10- [facility] CBC-Complete Blood Cnt No Di ffon 05-05-2025 Erythrocyte distribution width (RBC) [Ratio] 12.5 % Normal 11.6-14.6 [facility] Comment on above: Performed By: #### L [id number] #### [facility] Laboratory [address] [place], [address] Hematocrit (Bld) [Volume fraction] 31.3 % Low 40-54 [facility] Comment on above: Performed By: #### L [id number] #### [facility] [address] [place], [address] Hemoglobin (Bld) [Mass/Vol] 10.9 g/dL Low 13.0-16.5 [facility] Comment on above: Performed By: #### L [id number] #### [facility] Laboratory [address] [place], [address] MCH (RBC) [Entitic mass] 33.1 pg High 27.0-32.0 [facility] Comment on above: Performed By: #### L [id number] #### [facility] [address] [place], [address] MCHC (RBC) [Mass/Vol] 34.8 g/dL Normal 32-36 [facility] Comment on above: Performed By: #### L [id number] #### [facility] [address] [place], [address] MCV (RBC) [Entitic vol] 95.1 fL High 80-94 [facility] Comment on above: Performed By: #### L [id number] #### [facility] Laboratory [address] [place], [address] Platelet mean volume (Bld) [Entitic vol] 9.9 fL Normal 6.2-12.0 [facility] Comment on above: Performed By: #### L [id number] #### [facility] Laboratory [address] [place], [address] Platelets (Bld) [#/Vol] 185 10*3/uL Normal 150-450 [facility] Comment on above: Performed By: #### L [id number] #### [facility] Laboratory [address] [place], [address] RBC (Bld) [#/Vol] 3.29 10*6/uL Low 4.6-6.2 [facility] Comment on above: Performed By: #### L [id number] #### [facility] Laboratory [address] [place], [address] RDW SD 43.3 fl Normal 35.1-43.9 [facility] Comment on above: Performed By: #### L [id number] #### [facility] [address] [facility] [place], [address] WBC (Bld) [#/Vol] 4.5 10*3/uL Normal 4.4-11.0 [facility] Comment on above: Performed By: #### L [id number] #### [facility] [address] [facility] [place], [address] Carbon dioxide, total [Moles /volume] in Central venous bloodOrdered By: Rianna Barnhart on 05-05-2025 CO2 [Moles/Vol] 27.7 mmol/L 21.0-32.0 [facility] Chloride assayOrdered By: Porfirio Barnhart on 05-05-2025 Chloride [Moles/Vol] 102 mmol/L 98-108 [facility] Erythrocyte distribution wid th ratioOrdered By: Rianna Barnhart on 05-05-2025 Erythrocyte distribution width (RBC) [Ratio] 12.5 % 11.6-14.6 [facility] Erythrocyte distribution wid th standard deviationOrdered By: Rianna Barnhart on 05-05-2025 Erythrocyte distribution width (RBC) [Ratio] 43.3 fl 35.1-43.9 [facility] Glomerular filtration rate ( GFR) estimation/1.73 sq m using serum, plasma, or whole bOrdered By: Rianna Barnhart on 05-05-2025 GFR/1.73 sq M.predicted among non-blacks MDRD (S/P/Bld) [Vol rate/Area] 46 mL/min/{1.73_m2} Low >60 [facility] Comment on above: mL/min/1.73m2 CKD-EP I Creatinine Equation (2020) Hematocrit Auto (Bld) [Volum e fraction]Ordered By: Rianna Barnhart on 05-05-2025 Hematocrit (Bld) [Volume fraction] 31.3 % Low 40-54 [facility] Hemoglobin measurementOrdere d By: Rianna Barnhart on 05-05-2025 Hemoglobin (Bld) [Mass/Vol] 10.9 g/dL Low 13.0-16.5 [facility] International normalized rat io (INR) calculationOrdered By: Zhang Quick on 05-05-2025 INR Coag (Bld) [Relative time] 3.0 {INR} [facility] MCV (mean corpuscular volume ) determinationOrdered By: Rianna Barnhart on 05-05-2025 MCV (RBC) [Entitic vol] 95.1 fL High 80-[address] [facility] Mean corpuscular hemoglobin (MCH) determinationOrdered By: Rianna Barnhart on 05-05-2025 MCH (RBC) [Entitic mass] 33.1 pg High 27.0-32.0 [facility] Mean corpuscular hemoglobin concentration (MCHC) determinationOrdered By: Rianna Barnhart on 05-05-2025 MCHC (RBC) [Mass/Vol] 34.8 g/dL 32-36 [facility] Mean platelet volume determi nationOrdered By: Rianna Barnhart on 05-05-2025 Platelet mean volume (Bld) [Entitic vol] 9.9 fL 6.2-12.0 [facility] Platelet countOrdered By: Porfirio Barnhart on 05-05-2025 Platelets (Bld) [#/Vol] 185 10*3/uL 150-450 [facility] Potassium measurement (mass/ volume)Ordered By: Rianna Barnhart on 05-05-2025 Potassium (Unsp spec) [Mass/Vol] 4.9 mmol/L 3.3-5.1 [facility] Protein+Creatinine Ratio,Uri neon 05-05-2025 PROT:CRE RATIO 246 mg/g CRE High 0-200 [facility] Comment on above: Performed By: #### L [id number] #### [facility] Laboratory [address] [place] [address], [address] Protein (U) [Mass/Vol] 25.3 mg/dL High 0.0-12.0 [facility] Comment on above: Performed By: #### L [id number] #### [facility] [address] [place], [address] UR CREAT 103.00 mg/dL Normal 39.00-259.00 [facility] Comment on above: Performed By: #### L [id number] #### [facility] Laboratory [address] [place], [address] Prothrombin Time w/INRon INR Coag (PPP) [Relative time] 3.0 {INR} Normal [facility] Comment on above: Order Comment: Comme nts: STANDING ORDER Performed By: #### L 300.3900 ####[facility] [id number] [place], [address] PT Coag (PPP) [Time] 31.6 s High 11.7-14.9 [facility] Comment on above: Order Comment: Comme nts: STANDING ORDER Performed By: #### L 300.3900 ####[facility] [id number] [place], [address] Prothrombin timeOrdered By: Zhang Quick on 05-05-2025 PT Coag (PPP) [Time] 31.6 s High 11.7-14.9 [facility] RBC Auto (Bld) [#/Vol]Ordere d By: Rianna Barnhart on 05-05-2025 RBC (Bld) [#/Vol] 3.29 10*6/uL Low 4.6-6.2 [facility] Random urine creatinine acacia urement (mass/volume)Ordered By: Rianna Barnhart on 05-05-2025 Creatinine Unsp time (U) [Mass/Vol] 103.00 mg/dL 39.00-259.00 [facility] Renal Profileon 05-05-2025 Albumin [Mass/Vol] 3.8 g/dL Normal 3.4-4.8 [facility] Comment on above: Performed By: #### L [id number] #### [facility] Laboratory [address] [place], [address] BUN/CRE 25.3 RATIO High 10-20 [facility] Comment on above: Performed By: #### L [id number] #### [facility] Laboratory [address] [place], [address] Calcium [Mass/Vol] 9.3 mg/dL Normal 7.6-11.0 [facility] Comment on above: Performed By: #### L [id number] #### [facility] Laboratory [address] [place], [address] Chloride [Moles/Vol] 102 mmol/L Normal 98-108 [facility] Comment on above: Performed By: #### L [id number] #### [facility] [address] [place], [address] CO2 [Moles/Vol] 27.7 mmol/L Normal 21.0-32.0 [facility] Comment on above: Performed By: #### L [id number] #### [facility] Laboratory [address] [place], [address] Creatinine [Mass/Vol] 1.56 mg/dL High 0.70-1.20 [facility] Comment on above: Performed By: #### L [id number] #### [facility] Laboratory [address] [place], [address] GAP 9 Normal 5-15 [facility] Comment on above: Performed By: #### L [id number] #### [facility] Laboratory [address] [place], [address] GFR/1.73 sq M.predicted among non-blacks MDRD (S/P/Bld) [Vol rate/Area] 46 mL/min/{1.73_m2} Low >60 [facility] Comment on above: Result Comment: mL/m in/1.73m2 CKD-EPI Creatinine Equation (2020) Performed By: #### L [id number] #### [facility] [address] [place], [address] Glucose [Mass/Vol] 78 mg/dL Normal 70-99 [facility] Comment on above: Performed By: #### L [id number] #### [facility] Laboratory [address] [place], [address] Phosphate [Mass/Vol] 3.6 mg/dL Normal 2.7-4.5 [facility] Comment on above: Performed By: #### L [id number] #### [facility] Laboratory [address] [place], [address] Potassium [Moles/Vol] 4.9 mmol/L Normal 3.3-5.1 [facility] Comment on above: Performed By: #### L [id number] #### [facility] [address] [place], [address] Sodium [Moles/Vol] 139 mmol/L Normal 133-145 [facility] Comment on above: Performed By: #### L [id number] #### [facility] [address] [place], [address] Urea nitrogen [Mass/Vol] 40 mg/dL High 4-19 [facility] Comment on above: Performed By: #### L [id number] #### [facility] [address] [place], [address] Serum creatinine measurement (mass/volume)Ordered By: Rianna Barnhart on 05-05-2025 Creatinine [Mass/Vol] 1.56 mg/dL High 0.70-1.20 [facility] Serum glucose measurement (m ass/volume)Ordered By: Rianna Barnhart on 05-05-2025 Glucose [Mass/Vol] 78 mg/dL 70-99 [facility] Serum or plasma albumin acacia urement (mass/volume)Ordered By: Rianna Barnhart on 05-05-2025 Albumin [Mass/Vol] 3.8 g/dL 3.4-4.8 [facility] Serum or plasma calcium acacia urement (mass/volume)Ordered By: Rianna Barnhart on 05-05-2025 Calcium [Mass/Vol] 9.3 mg/dL 7.6-11.0 [facility] Serum or plasma urea nitroge n measurement (mass/volume)Ordered By: Rianna Barnhart on 05-05-2025 Urea nitrogen [Mass/Vol] 40 mg/dL High 4-19 [facility] Sodium levelOrdered By: Cristobal Barnhart on 05-05-2025 Sodium [Moles/Vol] 139 mmol/L 133-145 [facility] Urine protein measurement (m ass/volume)Ordered By: Rianna Barnhart on 05-05-2025 Protein (U) [Mass/Vol] 25.3 mg/dL High 0.0-12.0 [facility] Urine protein/creatinine mas s ratioOrdered By: Rianna Barnhart on 05-05-2025 Protein/Creatinine (U) [Mass ratio] 246 mg/g CRE High 0-200 [facility] White blood cell (WBC) count Ordered By: Rianna Barnhart on 05-05-2025 WBC (Bld) [#/Vol] 4.5 10*3/uL 4.4-11.0 [facility] Modified Barium Swallow Stud n 04-20-[address] [facility] Speech Pathology [address] [place] [address] Modified Barium Swallow Study MR#: [id number] Acct: [id number] Name: TYRELL REYES Bebo Rep #: [id number] : 1950 74 From: Betsy Nguyen M.A. [facility]-WORK CHECKER Modified Barium Swallow Patient Information Study Date: [...] to SCC of supraglottic larynx: BSE with WORK CHECKER 02/11/24 revealed mild oropharyngeal dysphagia and recommended Regular textures / Thin liquids with compensatory strategies to decrease risk for aspiration. WORK CHECKER recommended MBSS prior to radiation treatment to [...] failure, HLD, Atherosclerosis of coronary artery of [place] heart without angina pectoris, Stenosis of left subclavian artery, CKD, DDD, Marijuana use, Diabetic neuropathy, Osteoarthritis, DM type 2, See EMR for full PMH). Current Diet Ordered: Soft solids / Thin liquids Mental Status: WNL Respiratory Status: Oxygenating on Room Air Penetration-Aspiration Scale Penetration-Aspiration Scale: OBJECTIVE ASSESSMENT OF SWALLOW FUNCTION (QUANTITATIVE (more content not included)... Normal [facility] SP/HP.SPREEVon 04-12-2025 SP/HP.SPREEV [facility] Speech Pathology [facility] [address] [place] [address] / REEVALUATION / MEDICARE RECERTIFICATION SPEECH THERAPY MR#: [id number] Acct: [id number] Name: TYRELL REYES Rep #: [id number] : 1950 74 From: Betsy Nguyen M.A., [facility]-WORK CHECKER Referring Dr.: Dr. 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 WORK CHECKER recommended MBSS prior to radiation treatment to [...] has been participating in MDTP w/ OP WORK CHECKER for 12 sessions since 03/27/2025. He has [...] failure, HLD, Atherosclerosis of coronary artery of [place] heart without angina pectoris, Stenosis of left subclavian artery, CKD, DDD, Marijuana use, Diabetic neuropathy, Osteoarthritis, DM type 2, See EMR for full PMH). Smoking Status: Former smoker Diagnosis Diagnosis: Carcinoma of epiglottis C (more content not included)... Normal [facility] Microalb:Creat Ratio,Random URon 04-10-2025 MALB:CREAT 23.1 mg/g CRE Normal <30 mg/g CRE [facility] Comment on above: Result Comment: AMENDED REPORT 04/10/252037 MALB:CREAT previously reported as: 231.0 mg/g CRE Performed By: #### L 300.4310, L100.1900, L300.3900 #### [facility] Laboratory [address] [place], [address] International normalized rat io (INR) measurement by fingerstickOrdered By: Zhang Quick on 03-31-2025 INR Coag (BldC) [Relative time] 2.9 [facility] Comment on above: Critical Value > 4.0 Protime w/INR Fingerstickon 03-31-2025 INR Coag (PPP) [Relative time] 2.9 {INR} Normal [facility] Comment on above: Result Comment: Crit ical Value > 4.0 Performed By: #### L 9200.0000 ####[facility] [address] [place], [place], [id number] Protime Coagsen 30.5 SEC High 11.7-14.9 [facility] Comment on above: Performed By: #### L 9200.0000 ####[facility] [address] [place], [address] Whole blood prothrombin time Ordered By: Zhang Abdelrahman on 03-31-2025 PT Coag (Bld) [Time] 30.5 s High 11.7-14.9 [facility] International normalized rat io (INR) measurement by fingerstickOrdered By: Zhang Abdelrahman on 03-24-2025 INR Coag (BldC) [Relative time] 3.6 [facility] Comment on above: Critical Value > 4.0 Protime w/INR Fingerstickon 03-24-2025 INR Coag (PPP) [Relative time] 3.6 {INR} Normal [facility] Comment on above: Result Comment: Crit ical Value > 4.0 Performed By: #### L 9200.0000 #### [facility] Laboratory [address] [place], [place], [id number] Protime Coagsen 36.3 SEC High 11.7-14.9 [facility] Comment on above: Performed By: #### L 9200.0000 #### [facility] Laboratory [address] [place], [place], [address] Whole blood prothrombin time Ordered By: Zhang Abdelrahman on 03-24-2025 PT Coag (Bld) [Time] 36.3 s High 11.7-14.9 [facility] Modified Barium Swallow Stud yon 03-22-[address] [facility] Speech Pathology [address] [place] [address] Modified Barium Swallow Study MR#: [id number] Acct: [id number] Name: TYRELL REYES Rep #: [id number] : 1950 74 From: Betsy Nguyen M.A., [facility]-WORK CHECKER Modified Barium Swallow Patient Information Study Date: [...] to SCC of supraglottic larynx: BSE with WORK CHECKER 02/11/24 revealed mild oropharyngeal dysphagia and recommended Regular textures / Thin liquids with compensatory strategies to decrease risk for aspiration. WORK CHECKER recommended MBSS prior to radiation treatment to [...] failure, HLD, Atherosclerosis of coronary artery of [place] heart without angina pectoris, Stenosis of left [...] = does (more content not included)... Normal [facility] Prothrombin Time w/INRon INR Coag (PPP) [Relative time] 4.5 {INR} Invalid Interpretation Code [facility] Comment on above: Result Comment: CRIT ICAL VALUE CALLED TO JACKIE HWANG 03/22/25 1348 Karmen Lei. RESULTS READ BACK BY SAME. Performed By: #### L 9200.0000 #### [facility] Laboratory [address] [place], [address] Prothrombin timeOrdered By: Zhang Quick on 03-22-2025 PT Coag (PPP) [Time] 43.4 s High 11.7-14.9 [facility] Comment on above: Performed By: #### L 9200.0000 #### [facility] Laboratory [address] [place], [place], [address] Protime w/INR Fingerstickon 03-22-2025 INR Coag (PPP) [Relative time] 5.8 {INR} Invalid Interpretation Code [facility] Comment on above: Result Comment: Crit ical Value > 4.0 Performed By: #### L 9200.0000 #### [facility] Laboratory [address] [place], [address] Protime Coagsen 54.5 SEC High 11.7-14.9 [facility] Comment on above: Performed By: #### L 9200.0000 #### [facility] Laboratory [address] [place], [place], [id number] Cardiology Visit Reporton Cardiology Visit Report [facility] [address] [place], [place] [address] OFFICE VISIT Date of Service: 03/02/25 MR#: [id number] Acct: [id number] Name: AMYTYRELL Bebo Rep #: [id number] : 1950 Provider: SUSANNA frazier Age/Sex: 74/M Location: [facility] Status: Signed HPI HPI History of Present Illness Details: This is a 74-year-old gentleman who presents here today for a cardiovascular follow-up. He does have a history of coronary artery disease with mild disease noted in his LAD, circumflex and a totally occluded RCA with awel-[id number] collaterals. 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 Normal [facility] LABORATORYOrdered By: Lupe flaherty on 02-24-2025 Glucose [Mass/Vol] 82 mg/dL Normal 82 - 115 mg/dL [facility] Work Phone: LABORATORYOrdered By: SYSTEM SYSTEM on 02-24-2025 INR Coag (PPP) [Relative time] 1.2 {INR} Invalid Interpretation Code [facility] Comment on above: Interpretive Data: [place] [employer] (CHEST, 1991, 102:312S-25S) [...] Coag (PPP) [Time] 13.5 s Normal 9.0-14.4 [facility] Comment on above: Performed By: #### P RO #### [address] [address] PT International Ratio 1.2 Normal [facility] Comment on above: Result Comment: [employer] (CHEST, 1991, 102:312S-25S) recommended therapeutic range for oral anticoagulant therapy is: LOW RISK: Prophylaxis of venous thrombosis INR: 2.0-3.0 Treatment of pulmonary embolism 2.0-3.0 Prevention of systemic embolism 2.0-3.0 HIGH RISK: Mechanical prosthetic valves 2.5-3.5 Performed By: #### P RO #### [address] [address] XR FLUORO < 1HR TECH TIMEon 02-24-2025 XR FLUORO < 1HR TECH TIME ORIGINAL Images acquired, not reported on this accession number. Normal [facility] Radiation Oncology Visiton 0 02-15-2025 Radiation Oncology Visit [facility] Cancer [address] [place] [address] OFFICE VISIT Date of Service: 02/15/25 1128 MR#: [id number] Acct: [id number] Name: TYRELL REYES Rep #: [id number] : 1950 From: Riki Dl DO Age/Sex: 74/M Location: [facility] Status: Signed Intake Vital Signs 11/14/24 [...] disease Hyperlipidemia Atherosclerosis of coronary artery of [place] heart without angina pectoris Stenosis of left [...] This demonst (more content not included)... Normal [facility] CREATININE FINGERSTICKon CREATININE WB < 1.0 Normal 0.70-1.30 [facility] Comment on above: Performed By: #### L 9100.0200 ####[facility] [address] [facility] [place], [address] EGFR WB > 60.0000 Normal >60 [facility] Comment on above: Performed By: #### L 9100.0200 ####[facility] [address] [facility] [place], [address] Chest WITH Contraston [address] [facility] Imaging Services [address] [place] [address] Chest WITH Contrast MR#: [id number] Acct: [id number] Name: TYRELL REYES Rep #: [id number] : 1950 M 74 From: Adilene cunningham MD PCP: Dr. Lexus Rivera, DO Status: REG CLI Study: Chest WITH Contrast Date of Exam: 02/13/25 Exam# [id number] Ordering Dr: Riki Lizama DO PROCEDURE: CHEST [...] cyst. Moderate coronary artery calcifications. Reading Location: [place] [address] CC: Dr. Lexus Rivera, DO; Dr. Riki Lizama, DO Workforce Management Coordinator: Signed Normal [facility] EGFROrdered By: Riki cunningham on 02-13-2025 GFR/1.73 sq M.predicted among non-blacks MDRD (S/P/Bld) [Vol rate/Area] mL/min/{1.73_m2} >60 [facility] International normalized rat io (INR) measurement by fingerstickOrdered By: Zhang Quick on 02-13-2025 INR Coag (BldC) [Relative time] 3.4 [facility] Comment on above: Critical Value > 4.0 Protime w/INR Fingerstickon 02-13-2025 INR Coag (PPP) [Relative time] 3.4 {INR} Normal [facility] Comment on above: Result Comment: Crit ical Value > 4.0 Performed By: #### L 300.4310, L100.1900, L300.3900 #### [facility] Laboratory [address] [place], [place], [address] Protime Coagsen 34.4 SEC High 11.7-14.9 [facility] Comment on above: Performed By: #### L 300.4310, L100.1900, L300.3900 #### [facility] Laboratory [address] [place], [place], [address] Soft Tissue Neck WITH Contra ston 02-13-2025 Soft Tissue Neck WITH Contrast [facility] Imaging Services [address] [place], [place] [address] Soft Tissue Neck WITH Contrast MR#: [id number] Acct: [id number] Name: TYRELL REYES Rep #: [id number] : 1950 M 74 From: Adilene cunningham MD PCP: Dr. Lexus Rivera DO Status: REG CLI Study: Soft Tissue Neck WITH Contrast Date of Exam: 0 02/13/25 Exam# [id number] Ordering Dr: Riki Lizama DO PROCEDURE: SOFT [...] cells. Normal bilateral parotid glands. Normal bilateral soap slabber spaces. Normal bilateral parapharyngeal spaces. Normal bilateral [...] the left ethmoid air cells. Reading Location: [place] [address] CC: Dr. Lexus Rivera, DO; Dr. Riki Lizama, DO Workforce Management Coordinator: Signed Normal [facility] Whole blood prothrombin time Ordered By: Zhang Quick on 02-13-2025 PT Coag (Bld) [Time] 34.4 s High 11.7-14.9 [facility] 12-27-2024 U Creatinine 98.3 mg/dL Normal [facility] Comment on above: Performed By: #### M ALBR #### [address] [address] U Microalb 37.8 mg/L Normal [facility] Comment on above: Performed By: #### M ALBR #### [place] [address] [place], [place] [address] U Ratio Alb/Cre 38 mg/G High 0-30 [facility] Comment on above: Performed By: #### M ALBR #### [place] [address] [place], [place] [address] SP/HP.Cristi 12-09-2024 SP/HP.DARIUS [facility] Speech Pathology [facility] [address] [place] [address] / REEVALUATION / MEDICARE RECERTIFICATION SPEECH THERAPY MR#: [id number] Acct: [id number] Name: TYRELL REYES Rep #: [id number] : 1950 74 From: Betsy Nguyen M.A., [facility]-WORK CHECKER Referring Dr.: Dr. 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 WORK CHECKER recommended MBSS prior to radiation treatment to [...] of supplement daily and pt follows w/ client support associate. He has had significant weight loss since January of 2024 and is currently 152.8lbs (down 35lbs since January 2024). WORK CHECKER recommended most recent MBSS on 10/21/2024 to [...] failure, HLD, Atherosclerosis of coronary artery of [place] heart without angina pectoris, Stenosis of left subclavian artery, CKD, DDD, Marijuana use, Diabetic neuropathy, Osteoarthritis, DM type 2, See EMR for full PMH). Smoking Status: Former smoker Diag (more content not included)... Normal [facility] Pulmonary Visit Reporton Pulmonary Visit Report [facility] [place] [address] [place] [address] OFFICE VISIT Date of Service: 11/25/24 MR#: [id number] Acct: [id number] Name: TYRELL REYES Bebo Rep #: [id number] : 1950 Provider: Alexus Abel NP Age/Sex: 74/M Location: [facility] Status: Signed Assessment and Plan Assessment and [...] via EBUS. The patient has an approximate 58-dkqu-naod smoking history, having quit completely 30 years ago. 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 Normal [facility] AST(SGOT)on 11-15-2024 AST [Catalytic activity/Vol] 24 U/L Normal <=37 [facility] Comment on above: Performed By: #### L 300.4310, L100.1900, L300.3900 #### [facility] Laboratory [address] [place], [address] Alanine Aminotransferas (SGP T)on 11-15-2024 ALT [Catalytic activity/Vol] 19 U/L Normal <=46 [facility] Comment on above: Performed By: #### L 300.4310, L100.1900, L300.3900 #### [facility] Laboratory [address] [place], [address] Albumin DL <= 20 mg/L (U) [M ass/Vol]Ordered By: Lexus Rivera on 11-15-2024 Urine Random Microalbumin 49.2 mg/L NO RANGE EST. [facility] Alkaline Phosphataseon 11-15 ALK PHOS 93 U/L Normal 40-129 [facility] Comment on above: Performed By: #### L 300.4310, L100.1900, L300.3900 #### [facility] Laboratory [address] [place], [address] Anion gap in Serum or Plasma Ordered By: Lexus Rivera on 11-15-2024 Anion gap [Moles/Vol] 12 mmol/L 5-15 [facility] BUN/creatinine ratioOrdered By: Lexus Rivera on 11-15-2024 Urea nitrogen/Creatinine [Mass ratio] 29.7 mg/mg High 10-20 [facility] Bilirubin directOrdered By: Lexus Rivera on 11-15-2024 Bilirubin.direct [Mass/Vol] 0.14 mg/dL 0.00-0.30 [facility] Bilirubin, Directon 11-16-19 25 Bilirubin.direct [Mass/Vol] 0.14 mg/dL Normal 0.00-0.30 [facility] Comment on above: Performed By: #### L 300.4310, L100.1900, L300.3900 #### [facility] Laboratory [address] [place], [address] Bilirubin, totalOrdered By: Lexus Rivera on 11-15-2024 Bilirubin [Mass/Vol] 0.26 mg/dL 0.00-1.30 [facility] CBC-Complete Blood Cnt No Di ffon 11-15-2024 Erythrocyte distribution width (RBC) [Ratio] 13.7 % Normal 11.6-14.6 [facility] Comment on above: Performed By: #### L 300.4310, L100.1900, L300.3900 #### [facility] Laboratory [address] [place], [address] Hematocrit (Bld) [Volume fraction] 31.9 % Low 40-54 [facility] Comment on above: Performed By: #### L 300.4310, L100.1900, L300.3900 #### [facility] Laboratory [address] [place], [address] Hemoglobin (Bld) [Mass/Vol] 10.7 g/dL Low 13.0-16.5 [facility] Comment on above: Performed By: #### L 300.4310, L100.1900, L300.3900 #### [facility] Laboratory [address] [place], [address] MCH (RBC) [Entitic mass] 32.3 pg High 27.0-32.0 [facility] Comment on above: Performed By: #### L 300.4310, L100.1900, L300.3900 #### [facility] Laboratory [address] [place], [address] MCHC (RBC) [Mass/Vol] 33.5 g/dL Normal 32-36 [facility] Comment on above: Performed By: #### L 300.4310, L100.1900, L300.3900 #### [facility] Laboratory [address] [place], [address] MCV (RBC) [Entitic vol] 96.4 fL High 80-[address] [facility] Comment on above: Performed By: #### L 300.4310, L100.1900, L300.3900 #### [facility] Laboratory [address] [place], [address] Platelet mean volume (Bld) [Entitic vol] 10.2 fL Normal 6.2-12.0 [facility] Comment on above: Performed By: #### L 300.4310, L100.1900, L300.3900 #### [facility] Laboratory [address] [place], [address] Platelets (Bld) [#/Vol] 187 10*3/uL Normal 150-450 [facility] Comment on above: Performed By: #### L 300.4310, L100.1900, L300.3900 #### [facility] Laboratory [address] [place], [address] RBC (Bld) [#/Vol] 3.31 10*6/uL Low 4.6-6.2 [facility] Comment on above: Performed By: #### L 300.4310, L100.1900, L300.3900 #### [facility] Laboratory [address] [place], [address] RDW SD 48.3 fl High 35.1-43.9 [facility] Comment on above: Performed By: #### L 300.4310, L100.1900, L300.3900 #### [facility] Laboratory [address] [place], [address] WBC (Bld) [#/Vol] 5.2 10*3/uL Normal 4.4-11.0 [facility] Comment on above: Performed By: #### L 300.4310, L100.1900, L300.3900 #### [facility] Laboratory [address] [place], [address] Calculated very low density lipoprotein (VLDL) cholesterol measurementOrdered By: Lexus Rivera on 11-15-2024 Calculated very low density lipoprotein (VLDL) cholesterol measurement 40 mg/dL 5-40 [facility] VLDL Cholesterol 40 mg/dL 5-40 [facility] Carbon dioxide, total [Moles /volume] in Central venous bloodOrdered By: Lexus Rivera on 11-15-2024 CO2 [Moles/Vol] 27.5 mmol/L 21.0-32.0 [facility] Chloride assayOrdered By: Rahel Rivera on 11-15-2024 Chloride [Moles/Vol] 101 mmol/L 98-108 [facility] Creatinine Unsp time (U) [Ma ss/Vol]Ordered By: Lexus Rivera on 11-15-2024 Creatinine (U) [Mass/Vol] 213.00 mg/dL 39-259 [facility] Erythrocyte distribution wid th ratioOrdered By: Lexus Rivera on 11-15-2024 Erythrocyte distribution width (RBC) [Ratio] 13.7 % 11.6-14.6 [facility] Erythrocyte distribution wid th standard deviationOrdered By: Lexus Rivera on 11-15-2024 Erythrocyte distribution width (RBC) [Entitic vol] 48.3 fL High 35.1-43.9 [facility] Erythrocyte distribution width (RBC) [Ratio] 48.3 fl High 35.1-43.9 [facility] GFR/1.73 sq M.predicted lisa g non-blacks MDRD (S/P/Bld) [Vol rate/Area]Ordered By: Lexus Rivera on 11-15-2024 Estimated GFR (MDRD) Non-Af Amer 47 Low >60 [facility] Comment on above: mL/min/1.73m2 CKD-EP I Creatinine Equation (2020) Glomerular filtration rate ( GFR) estimation/1.73 sq m using serum, plasma, or whole bOrdered By: Lexus Rivera on 11-15-2024 GFR/1.73 sq M.predicted among non-blacks MDRD (S/P/Bld) [Vol rate/Area] 47 mL/min/{1.73_m2} Low >60 [facility] Comment on above: mL/min/1.73m2 CKD-EP I Creatinine Equation (2020) Hematocrit Auto (Bld) [Volum e fraction]Ordered By: Lexus Rivera on 11-15-2024 Hematocrit (Bld) [Volume fraction] 31.9 % Low 40-54 [facility] Hemoglobin measurementOrdere d By: Lexus Rivera on 11-15-2024 Hemoglobin (Bld) [Mass/Vol] 10.7 g/dL Low 13.0-16.5 [facility] L506.1001on 11-15-2024 Vitamin D 25-OH 73.0 ng/mL Normal 30-100 [facility] Comment on above: Result Comment: Mari min D Status Deficiency: <20 ng/mL (50nmol/L) Insufficiency: 20-30 ng/mL (50-75 nmol/L) Sufficiency: 30-100 ng/mL (75-250 nmol/L) Toxicity: >100 ng/mL (>250 nmol/L) Performed By: #### L 300.4310, L100.1900, L300.3900 #### [facility] Laboratory [address] [place], [address] LDL calc ser/plasOrdered By: Lexus Rivera on 11-15-2024 Cholesterol in LDL [Mass/Vol] 72 mg/dL [facility] Comment on above: Paithasabg=343-215 m g/dL & Higher Ipxp=746 mg/dL or greater LDL Cholesterol, Calculated 72 mg/dL [facility] Comment on above: Yvzykwnzbm=228-529 m g/dL & Higher Gzez=562 mg/dL or greater Laboratory - Chemistry and C hemistry - challengeOrdered By: Lexus Rivera on 11-15-2024 AST [Catalytic activity/Vol] 24 U/L <38 [facility] Lipid Profileon 11-15-2024 CHOL:HDL 4.01 Normal [facility] Comment on above: Performed By: #### L 300.4310, L100.1900, L300.3900 #### [facility] Laboratory [address] [place], [address] Cholesterol [Mass/Vol] 150 mg/dL Normal <=200 [facility] Comment on above: Result Comment: Chol esterol level, Desirable <200 mg/dL Borderline high cholesterol 200-239 mg/dL High cholesterol >=240 mg/dL Recommendations of the NCEP Adult Treatment Panel for the following risk-cutoff thresholds for the [place] population. Performed By: #### L 300.4310, L100.1900, L300.3900 #### [facility] Laboratory [address] [place], [address] Cholesterol in HDL [Mass/Vol] 37 mg/dL Low [facility] Comment on above: Result Comment: Shaina onal Cholesterol Education Program (NCEP) guidelines: <40 mg/dL: Low HDL-cholesterol (major risk factor for CHD) >= 60 mg/dL: High HDL-cholesterol (negative risk factor for CHD) HDL-cholesterol is affected by a number of factors, e.g. smoking, exercise, hormones, sex and age. Performed By: #### L 300.4310, L100.1900, L300.3900 #### [facility] Laboratory [address] [place], [address] Cholesterol in LDL [Mass/Vol] 72 mg/dL Normal [facility] Comment on above: Result Comment: Bord izbrbr=883-812 mg/dL Higher Ocze=469 mg/dL or greater Performed By: #### L 300.4310, L100.1900, L300.3900 #### [facility] Laboratory [address] [place], [address] Cholesterol in VLDL [Mass/Vol] 40 mg/dL Normal 5-40 [facility] Comment on above: Performed By: #### L 300.4310, L100.1900, L300.3900 #### [facility] Laboratory [address] [place], [address] Triglyceride [Mass/Vol] 201 mg/dL High [facility] Comment on above: Result Comment: The drugs N-Acetylcysteine and Metamizole may falsely depress this assay. Normal range: <150 mg/dL Borderline High: 150-199 mg/dL High: 200-499 mg/dL Very High: >500 mg/dL Performed By: #### L 300.4310, L100.1900, L300.3900 #### [facility] Laboratory [address] [place], [address] MCV (mean corpuscular volume ) determinationOrdered By: Lexus Rivera on 11-15-2024 MCV (RBC) [Entitic vol] 96.4 fL High 80-[address] [facility] Mean corpuscular hemoglobin (MCH) determinationOrdered By: Lexus Rivera on 11-15-2024 MCH (RBC) [Entitic mass] 32.3 pg High 27.0-32.0 [facility] Mean corpuscular hemoglobin concentration (MCHC) determinationOrdered By: Lexus Rivera on 11-15-2024 MCHC (RBC) [Mass/Vol] 33.5 g/dL 32-36 [facility] Mean platelet volume determi nationOrdered By: Lexus Rivera on 11-15-2024 Platelet mean volume (Bld) [Entitic vol] 10.2 fL 6.2-12.0 [facility] Microalbumin/creat ratio urO rdered By: Lexus Rivera on 11-15-2024 Urine Microalbumin/Creatinine Ratio 231.0 mg/g CRE [facility] Platelet countOrdered By: Rahel Rivera on 11-15-2024 Platelets (Bld) [#/Vol] 187 10*3/uL 150-450 [facility] Potassium (Unsp spec) [Mass/ Vol]Ordered By: Lexus Rivera on 11-15-2024 Potassium [Moles/Vol] 4.5 mmol/L 3.3-5.1 [facility] Potassium measurement (mass/ volume)Ordered By: Lexus Rivera on 11-15-2024 Potassium (Unsp spec) [Mass/Vol] 4.5 mmol/L 3.3-5.1 [facility] Protein, Totalon 11-15-2024 Albumin/Globulin [Mass ratio] 1.1 {ratio} Normal 0.9-2.4 [facility] Comment on above: Performed By: #### L 300.4310, L100.1900, L300.3900 #### [facility] Laboratory [address] [place], [address] Globulin (S) [Mass/Vol] 3.6 g/dL Normal 2.2-4.[address] [facility] Comment on above: Performed By: #### L 300.4310, L100.1900, L300.3900 #### [facility] Laboratory [address] [place], [address] T PROT 7.5 g/dL Normal 5.9-8.4 [facility] Comment on above: Performed By: #### L 300.4310, L100.1900, L300.3900 #### [facility] Laboratory [address] [place], [address] RBC Auto (Bld) [#/Vol]Ordere d By: Lexus Nicole on 11-15-2024 RBC (Bld) [#/Vol] 3.31 10*6/uL Low 4.6-6.2 [facility] Random urine creatinine acacia urement (mass/volume)Ordered By: Lexus Rivera on 11-15-2024 Creatinine Unsp time (U) [Mass/Vol] 213.00 mg/dL 39-259 [facility] Renal Profileon 11-15-2024 Albumin [Mass/Vol] 3.9 g/dL Normal 3.4-4.8 [facility] Comment on above: Performed By: #### L 300.4310, L100.1900, L300.3900 #### [facility] Laboratory [address] [place], [address] BUN/CRE 29.7 RATIO High 10-20 [facility] Comment on above: Performed By: #### L 300.4310, L100.1900, L300.3900 #### [facility] Laboratory [address] [place], [address] Calcium [Mass/Vol] 9.5 mg/dL Normal 7.6-11.0 [facility] Comment on above: Performed By: #### L 300.4310, L100.1900, L300.3900 #### [facility] Laboratory [address] [place], [address] Chloride [Moles/Vol] 101 mmol/L Normal 98-108 [facility] Comment on above: Performed By: #### L 300.4310, L100.1900, L300.3900 #### [facility] Laboratory [address] [place], [address] CO2 [Moles/Vol] 27.5 mmol/L Normal 21.0-32.0 [facility] Comment on above: Performed By: #### L 300.4310, L100.1900, L300.3900 #### [facility] Laboratory [address] [place], [address] Creatinine [Mass/Vol] 1.54 mg/dL High 0.70-1.20 [facility] Comment on above: Performed By: #### L 300.4310, L100.1900, L300.3900 #### [facility] Laboratory [address] [place], [address] GAP 12 Normal 5-15 [facility] Comment on above: Performed By: #### L 300.4310, L100.1900, L300.3900 #### [facility] Laboratory [address] [place], [address] GFR/1.73 sq M.predicted among non-blacks MDRD (S/P/Bld) [Vol rate/Area] 47 mL/min/{1.73_m2} Low >60 [facility] Comment on above: Result Comment: mL/m in/1.73m2 CKD-EPI Creatinine Equation (2020) Performed By: #### L 300.4310, L100.1900, L300.3900 #### [facility] Laboratory [address] [place], [address] Glucose [Mass/Vol] 104 mg/dL High 70-99 [facility] Comment on above: Performed By: #### L 300.4310, L100.1900, L300.3900 #### [facility] Laboratory [address] [place], [address] Phosphate [Mass/Vol] 4.0 mg/dL Normal 2.7-4.5 [facility] Comment on above: Performed By: #### L 300.4310, L100.1900, L300.3900 #### [facility] Laboratory [address] [place], [address] Potassium [Moles/Vol] 4.5 mmol/L Normal 3.3-5.1 [facility] Comment on above: Performed By: #### L 300.4310, L100.1900, L300.3900 #### [facility] Laboratory [address] [place], [address] Sodium [Moles/Vol] 140 mmol/L Normal 133-145 [facility] Comment on above: Performed By: #### L 300.4310, L100.1900, L300.3900 #### [facility] Laboratory [address] [place], [address] Urea nitrogen [Mass/Vol] 46 mg/dL High 4-19 [facility] Comment on above: Performed By: #### L 300.4310, L100.1900, L300.3900 #### [facility] Laboratory [address] [place], [address] Screening total cholesterol/ high density lipoprotein (HDL) cholesterol ratioOrdered By: Lexus Rivera on 11-15-2024 Cholesterol.total/Elvira sterol in HDL [Mass ratio] 4.01 {ratio} [facility] Serum creatinine measurement (mass/volume)Ordered By: Lexus Rivera on 11-15-2024 Creatinine [Mass/Vol] 1.54 mg/dL High 0.70-1.20 [facility] Serum globulin measurementOr dered By: Lexus Rivera on 11-15-2024 Globulin (S) [Mass/Vol] 3.6 g/dL 2.2-4.[address] [facility] Serum glucose measurement (m ass/volume)Ordered By: Lexus Rivera on 11-15-2024 Glucose [Mass/Vol] 104 mg/dL High 70-99 [facility] Serum or plasma alanine cohen otransferase (ALT) measurementOrdered By: Lexus Rivera on 11-15-2024 ALT [Catalytic activity/Vol] 19 U/L <47 [facility] Serum or plasma albumin acacia urement (mass/volume)Ordered By: Lexus Rivera on 11-15-2024 Albumin [Mass/Vol] 3.9 g/dL 3.4-4.8 [facility] Serum or plasma albumin/glob ulin mass ratioOrdered By: Lexus Rivera on 11-15-2024 Albumin/Globulin [Mass ratio] 1.1 {ratio} 0.9-2.4 [facility] Serum or plasma alkaline yumiko sphatase measurementOrdered By: Lexus Rivera on 11-15-2024 ALP [Catalytic activity/Vol] 93 U/L 40-129 [facility] Serum or plasma calcium acacia urement (mass/volume)Ordered By: Lexus Rivera on 11-15-2024 Calcium [Mass/Vol] 9.5 mg/dL 7.6-11.0 [facility] Serum or plasma cholesterol in HDL measurement (mass/volume)Ordered By: Lexus Rivera on 11-15-2024 Cholesterol in HDL [Mass/Vol] 37 mg/dL Low >40 [facility] Comment on above: National Cholesterol Education Program (NCEP) guidelines:<40 mg/dL: Low HDL-cholesterol (major risk factor for CHD)>= 60 mg/dL: High HDL-cholesterol (negative risk factor for CHD)HDL-cholesterol is affected by a number of factors, e.g. smoking, exercise, hormones, sex and age. Serum or plasma cholesterol measurement (mass/volume)Ordered By: Lexus Rivera on 11-15-2024 Cholesterol [Mass/Vol] 150 mg/dL <201 [facility] Comment on above: Cholesterol level, D esirable <200 mg/dLBorderline high cholesterol 200-239 mg/dLHigh cholesterol >=240 mg/dLRecommendations of the NCEP Adult Treatment Panel for the following risk-cutoff thresholds for the [place] population. Serum or plasma urea nitroge n measurement (mass/volume)Ordered By: Lexus Rivera on 11-15-2024 Urea nitrogen [Mass/Vol] 46 mg/dL High 4-19 [facility] Serum phosphorus measurement Ordered By: Lexus Rivera on 11-15-2024 Phosphorus Level 4.0 mg/dL 2.7-4.5 [facility] Sodium levelOrdered By: Zhao Rivera on 11-15-2024 Sodium [Moles/Vol] 140 mmol/L 133-145 [facility] T4 Free Directon 11-15-2024 T4 FREE DIRECT 1.20 ng/dL Normal 0.76-1.46 [facility] Comment on above: Performed By: #### L 300.4310, L100.1900, L300.3900 #### [facility] Laboratory [address] [place], [address] T4 freeOrdered By: Lexus basurto on 11-15-2024 Free T4 [Mass/Vol] 1.20 ng/dL 0.76-1.46 [facility] TSH DL <= 0.005 mIU/L QnOrde red By: Lexus Rivera on 11-15-2024 Thyroid Stimulating Hormone (TSH) 2.060 uIU/mL 0.300-4.200 [facility] TSH Qn 2.060 uIU/mL 0.300-4.200 [facility] Thyroid Stim Hormone (TSH)on 11-15-2024 TSH 2.060 uIU/mL Normal 0.300-4.200 [facility] Comment on above: Performed By: #### L 300.4310, L100.1900, L300.3900 #### [facility] Laboratory [address] [place], [address] Total Bilirubinon 11-15-2024 Bilirubin [Mass/Vol] 0.26 mg/dL Normal 0.00-1.30 [facility] Comment on above: Performed By: #### L 300.4310, L100.1900, L300.3900 #### [facility] Laboratory [address] [place], [address] Total proteinOrdered By: Cecilio iRvera on 11-15-2024 Protein [Mass/Vol] 7.5 g/dL 5.9-8.4 [facility] Triglycerides measurementOrd ered By: Lexus Rivera on 11-15-2024 Triglyceride [Mass/Vol] 201 mg/dL High <[address] [facility] Comment on above: The drugs N-Acetylcy steine and Metamizole may falsely depress this assay. Normal range: <150 mg/dLBorderline High: 150-199 mg/dLHigh: 200-499 mg/dLVery High: >500 mg/dL Urine albumin measurement wi th detection limit of 20 mg/L or less (mass/volume)Ordered By: Lexus Rivera on 11-15-2024 Albumin DL <= 20 mg/L (U) [Mass/Vol] 49.2 mg/L NO RANGE EST. [facility] Vitamin D, 25-hydroxyOrdered By: Lexus Rivera on 11-15-2024 Vitamin D 25-Hydroxy 73.0 ng/mL 30-100 [facility] Comment on above: Vitamin D StatusDefi ciency: <20 ng/mL (50nmol/L)Insufficiency: 20-30 ng/mL (50-75 nmol/L)Sufficiency: 30-100 ng/mL (75-250 nmol/L)Toxicity: >100 ng/mL (>250 nmol/L) White blood cell (WBC) count Ordered By: Lexus Rivera on 11-15-2024 WBC (Bld) [#/Vol] 5.2 10*3/uL 4.4-11.0 [facility] Radiation Oncology Visiton 0 11-14-2024 Radiation Oncology Visit [facility] [address] [place] [address] OFFICE VISIT Date of Service: 11/14/24 1003 MR#: [id number] Acct: [id number] Name: TYRELL REYES Bebo Rep #: [id number] : 1950 From: Riki Dl DO Age/Sex: 73/M [place] [facility] [place]: Signed Intake Vital Signs 10/13/24 09:59 [...] disease Hyperlipidemia Atherosclerosis of coronary artery of [place] heart without angina pectoris Stenosis of left [...] epiglottis especial (more content not included)... Normal [facility] Bedside Glucoseon 11-04-2024 FINGERSTICK GLU 79 mg/dL Normal 74-106 [facility] Comment on above: Result Comment: JLUIS CABRERA OF PATIENT CARE PER NURSING PROTOCOL Performed By: #### L 9200.0000 #### [facility] Laboratory [address] [place], [address] Bronchoscopy Reporton [address] [facility] Medical Records Department [address] [place] [address] Bronchoscopy Report MR#: [id number] Acct: [id number] Name: TYRELL REYES Rep #: [id number] : 1950 73 From: Terence Alba DO PCP: Dr. Lexus Rivera, DO Status:REG [facility] Patient Name: Tyrell Reyes Procedure Date: 11/04/2024 [...] biopsy results. Procedure Code(s): --- Professional --- 87488, Bronchoscopy, rigid or flexible, including fluoroscopic guidance, when performed; with endobronchial ultrasound (EBUS) guided transtracheal and/or transbronchial sampling (eg, aspiration[s]/biopsy[ies ]), 3 or more mediastinal and/or hilar lymph node stations or structures Diagnosis Code(s): --- Professional --- R59.0, Localized enlarged lymph nodes R09.89, Other specified symptoms and signs involving the circulatory and respiratory systems CPT copyright 2021 [employer]. All rights reserved. The codes documented in this report are preliminary and upon costing analyst review may be revised to meet current compliance requirements. DO Terence Mora MD 11/04/2024 11:53:11 AM This report has been signed electronically. Number of Addenda: 0 Note Initiated On: 11/04/2024 10:39 AM 11/04/24 1153 Date ____ (more content not included)... Normal [facility] Glucose measurement at bedsi deOrdered By: Terence Alba on 11-04-2024 Bedside Glucose (Misc Panel) 79 mg/dL 74-106 [facility] Comment on above: MANAGEMENT OF PATIEN T CARE PER NURSING PROTOCOL Glucose [Mass/Vol] 79 mg/dL 74-106 [facility] Comment on above: MANAGEMENT OF PATIEN T CARE PER NURSING PROTOCOL INR Coag (BldC) [Relative ti me]Ordered By: Terence Alba on 11-04-2024 INR Coag (Bld) [Relative time] 1.1 {INR} [facility] Comment on above: Critical Value > 4.0 International normalized rat io (INR) measurement by fingerstickOrdered By: Terence Alba on 11-04-2024 INR Coag (BldC) [Relative time] 1.1 [facility] Comment on above: Critical Value > 4.0 MR/POSTOP.ANEon 11-04-2024 MR/POSTOP.[facility] Medical Records Department [address] [place] [address] Anesthesia Postop Eval I 11/04/24 1157 MR#: [id number] Acct: [id number] Name: TYRELL REYES Rep #: [id number] : 1950 73 From: Sadaf Ott PCP: Dr. Lexus Rivera, DO Status:[facility] Y Race: C Location: [place] Anesthesia: [...] Sadaf Goodrich Signature: Date CC: Signed Normal [facility] [id number] 11-04-2024 MR/POSTOPAN2 [facility] Medical Records Department [address] [place] [address] Anesthesia Postop Eval II 11/04/24 1303 MR#: [id number] Acct: [id number] Name: TYRELL REYES Rep #: [id number] : 1950 73 From: Sadaf Ott PCP: Dr. Lexus Rivera, DO Status:DEP [facility] Y Race: C Location: [place] Anesthesia Postop Eval I Sum Postop Eval Completion status Anesthesia document: Postop Eval 1 completed: Yes Anesthesia Postop Eval I Summary Anesthesia Postop Eval I Summary: Anesthesia Postop Eval I: Assessment Summary Airway patent Yes 11/04/24 13:02 [employer].CSIR Spontaneous unlabored Yes 11/04/24 13:02 [employer] PROF[employer]OR.CSIR respirations Mental status nausea No 11/04/24 13:02 [employer] PROF[employer]OR.CSIR Vomiting No 11/04/24 13:02 [employer] PROFESSOR.CSIR Anesthesia Postop Eval I: Fluid Summary Crystalloid volume administer 0 11/04/24 13:02 [employer] PROFESSOR.CSIR (ml) Colloids volume administered ( ml) Blood Product volume administered (ml) Total IV fluid infused 0 11/04/24 13:02 [employer] PROFESSOR.CSIR Anesthesia Postop Eval I: Summary Notes Anesthesia Complication No 11/04/24 13:02 [employer] PROFESSOR.CSIR Anesthesia Complication Comment: Post-operative progress note Anesthesia: Postop Eval II Evaluation Mental status: Awake Pain Level: 0 nausea: No Vomiting: No 11/04/24 1303 Date Sadaf Goodrich Signature: Date CC: Signed Normal [facility] PT Coag (Hossein) [Time]Ordered By: Terence Alba on 11-04-2024 Bedside Prothrombin Time 13.3 SEC 11.7-14.9 [facility] Protein+Creatinine Ratio,Uri neon 11-04-2024 PROT:CRE RATIO 652 mg/g CRE High 0-200 [facility] Comment on above: Result Comment: UTO PT BRINGING BACK Performed By: #### L 300.4310, L100.1900, L300.3900 #### [facility] Laboratory [address] [place], [address] Protein (U) [Mass/Vol] 24.9 mg/dL High <11.9 [facility] Comment on above: Result Comment: UTO PT BRINGING BACK Performed By: #### L 300.4310, L100.1900, L300.3900 #### [facility] Laboratory [address] [place], [address] UR CREAT 38.20 mg/dL Normal NO RANGE EST. [facility] Comment on above: Result Comment: UTO PT BRINGING BACK Performed By: #### L 300.4310, L100.1900, L300.3900 #### [facility] Laboratory [address] [place], [address] Protime w/INR Fingerstickon 11-04-2024 INR Coag (PPP) [Relative time] 1.1 {INR} Normal [facility] Comment on above: Result Comment: Crit ical Value > 4.0 Performed By: #### L 300.4310, L100.1900, L300.3900 #### [facility] Laboratory [address] [place], [address] Protime Coagsen 13.3 SEC Normal 11.7-14.9 [facility] Comment on above: Performed By: #### L 300.4310, L100.1900, L300.3900 #### [facility] Laboratory [address] [place], [address] Special Stain Group IIon Special Stain Group II ------- Patient Age/Sex Location Account Attending Physician TYRELL REYES 73/M EN [id number] Dr. Terence Alba DO Specimen: [id number] Received: 11/04/24-1250 Status: CAITLIN Alvarez Num: [id number] Spec Type: ASP OUT Subm Dr: DO [...] Location Account Attending Physician TYRELL REYES/M EN [id number] Dr. 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 11/04/2024 TC:[id number] Signed (signature on file) Dr. Julio Caraballo MD 11/07/24 1202 (more content not included)... Normal [facility] Comment on above: Performed By: #### P SSII ####[facility] [id number] [place], [place], [address] Whole blood prothrombin time Ordered By: Terence Alba on 11-04-2024 PT Coag (Bld) [Time] 13.3 s 11.7-14.9 [facility] 35-MG-Tyxtebx DOrdered By: Ian Quick on 11-03-2024 Vitamin D 25-Hydroxy 59.8 ng/mL [facility] Comment on above: Vitamin D 25(OH) Sta tus Range Deficiency <20 ng/mL (50nmol/L) Insufficiency 20 - 30 ng/mL (50 - 75 nmol/L) Sufficiency 30 - 100 ng/mL (75 - 250 nmol/L) Toxicity >100 ng/mL (>250 nmol/L) Activated partial thrombopla stin time (aPTT) in platelet poor plasma by coagulation aOrdered By: Terence Alba on 11-03-2024 aPTT Coag (PPP) [Time] 27.1 s 24.1-36.2 [facility] Blood urea nitrogen (BUN)/cr eatinine ratioOrdered By: Zhang Quick on 11-03-2024 Urea nitrogen/Creatinine [Mass ratio] 28.5 mg/mg High 07-03 [facility] CBC-Complete Blood Cnt No Di ffon 11-03-2024 Erythrocyte distribution width (RBC) [Ratio] 14.0 % Normal 11.6-14.6 [facility] Comment on above: Performed By: #### L 300.4310, L100.1900, L300.3900 #### [facility] Laboratory [address] [place], [address] Hematocrit (Bld) [Volume fraction] 34.4 % Low 40-54 [facility] Comment on above: Performed By: #### L 300.4310, L100.1900, L300.3900 #### [facility] Laboratory [address] [place], [address] Hemoglobin (Bld) [Mass/Vol] 11.2 g/dL Low 13.0-16.5 [facility] Comment on above: Performed By: #### L 300.4310, L100.1900, L300.3900 #### [facility] Laboratory [address] [place], [address] MCH (RBC) [Entitic mass] 31.3 pg Normal 27.0-32.0 [facility] Comment on above: Performed By: #### L 300.4310, L100.1900, L300.3900 #### [facility] Laboratory [address] [place], [address] MCHC (RBC) [Mass/Vol] 32.6 g/dL Normal 32-36 [facility] Comment on above: Performed By: #### L 300.4310, L100.1900, L300.3900 #### [facility] Laboratory [address] [place], [address] MCV (RBC) [Entitic vol] 96.1 fL High 80-[address] [facility] Comment on above: Performed By: #### L 300.4310, L100.1900, L300.3900 #### [facility] Laboratory [address] [place], [address] Platelet mean volume (Bld) [Entitic vol] 10.4 fL Normal 6.2-12.0 [facility] Comment on above: Performed By: #### L 300.4310, L100.1900, L300.3900 #### [facility] Laboratory [address] [place], [address] Platelets (Bld) [#/Vol] 144 10*3/uL Low 150-450 [facility] Comment on above: Performed By: #### L 300.4310, L100.1900, L300.3900 #### [facility] Laboratory [address] [place], [address] RBC (Bld) [#/Vol] 3.58 10*6/uL Low 4.6-6.2 [facility] Comment on above: Performed By: #### L 300.4310, L100.1900, L300.3900 #### [facility] Laboratory [address] [place], [address] RDW SD 49.6 fl High 35.1-43.9 [facility] Comment on above: Performed By: #### L 300.4310, L100.1900, L300.3900 #### [facility] Laboratory [address] [place], [address] WBC (Bld) [#/Vol] 4.8 10*3/uL Normal 4.4-11.0 [facility] Comment on above: Performed By: #### L 300.4310, L100.1900, L300.3900 #### [facility] Laboratory [address] [place], [address] Carbon dioxide measurementOr dered By: Zhang Quick on 11-03-2024 CO2 [Moles/Vol] 31.0 mmol/L 21.0-32.0 [facility] Chloride measurementOrdered By: Zhang Quick on 11-03-2024 Chloride [Moles/Vol] 104 mmol/L 98-107 [facility] Erythrocyte distribution wid th ratioOrdered By: Kerman Abdelrahman on 11-03-2024 Erythrocyte distribution width (RBC) [Ratio] 14.0 % 11.6-14.6 [facility] Erythrocyte distribution wid th standard deviationOrdered By: Zhang Quick on 11-03-2024 Erythrocyte distribution width (RBC) [Entitic vol] 49.6 fL High 35.1-43.9 [facility] Erythrocyte distribution width (RBC) [Ratio] 49.6 fl High 35.1-43.9 [facility] Estimated glomerular filtrat ion rate (GFR) AmericanOrdered By: Zhang Quick on 11-03-2024 Estimated GFR (MDRD) Amer 55 mL/min Low >60 [facility] Comment on above: GFR Calc Glomerular filtration rate ( GFR) estimationOrdered By: Zhang Quick on 11-03-2024 Estimated GFR (MDRD) Non-Af Amer 46 mL/min Low >60 [facility] Comment on above: Non- GFR Calc GFR/1.73 sq M.predicted among non-blacks MDRD (S/P/Bld) [Vol rate/Area] 46 mL/min/{1.73_m2} Low >60 [facility] Comment on above: Non- GFR Calc Glucose measurementOrdered B y: Zhang Quick on 11-03-2024 Glucose [Mass/Vol] 90 mg/dL 74-106 [facility] Hematocrit Auto (Bld) [Volum e fraction]Ordered By: Zhang Quick on 11-03-2024 Hematocrit (Bld) [Volume fraction] 34.4 % Low 40-54 [facility] Hemoglobin measurementOrdere d By: Zhang Quick on 11-03-2024 Hemoglobin (Bld) [Mass/Vol] 11.2 g/dL Low 13.0-16.5 [facility] Intact parathyroid hormone ( iPTH) measurementOrdered By: Zhang Quick on 11-03-2024 Parathyroid Hormone (Intact) 62.6 pg/mL 18.4-80.1 [facility] MCV (mean corpuscular volume ) determinationOrdered By: Zhang Quick on 11-03-2024 MCV (RBC) [Entitic vol] 96.1 fL High 80-[address] [facility] Mean corpuscular hemoglobin (MCH) determinationOrdered By: Zhanglynne Quick on 11-03-2024 MCH (RBC) [Entitic mass] 31.3 pg 27.0-32.0 [facility] Mean corpuscular hemoglobin concentration (MCHC) determinationOrdered By: Zhang Quick on 11-03-2024 MCHC (RBC) [Mass/Vol] 32.6 g/dL 32-36 [facility] Mean platelet volume determi nationOrdered By: Zhang Quick on 11-03-2024 Platelet mean volume (Bld) [Entitic vol] 10.4 fL 6.2-12.0 [facility] PTHINon 11-03-2024 PTH 62.6 pg/mL Normal 18.4-80.1 [facility] Comment on above: Performed By: #### L 300.4310, L100.1900, L300.3900 #### [facility] Laboratory [address] [place], [address] Partial Thromboplast Timeon 11-03-2024 aPTT Coag (Bld) [Time] 27.1 s Normal 24.1-36.2 [facility] Comment on above: Order Comment: SEND INR TO Performed By: #### L 300.4310, L100.1900, L300.3900 #### [facility] Laboratory [address] [place], [address] Phosphorus measurementOrdere d By: Zhang Quick on 11-03-2024 Phosphorus Level 4.2 mg/dL 2.5-4.9 [facility] Platelet Counton 11-03-2024 Platelets (Bld) [#/Vol] 146 10*3/uL Low 150-450 [facility] Comment on above: Performed By: #### L 300.4310, L100.1900, L300.3900 #### [facility] Laboratory [address] [place], [address] Platelet countOrdered By: Aguilar Quick on 11-03-2024 Platelets (Bld) [#/Vol] 144 10*3/uL Low 150-450 [facility] Platelet countOrdered By: Clifton on 11-03-2024 Platelets (Bld) [#/Vol] 146 10*3/uL Low 150-450 [facility] Potassium measurementOrdered By: Zhang Quick on 11-03-2024 Potassium [Moles/Vol] 4.3 mmol/L 3.5-5.1 [facility] Protein/Creatinine (U) [Mass ratio]Ordered By: Zhang Quick on 11-03-2024 Urine Protein/Creatinine Ratio 652 mg/g CRE High 0-200 [facility] Prothrombin Time w/INRon INR Coag (PPP) [Relative time] 1.2 {INR} Normal [facility] Comment on above: Order Comment: SEND INR TO Performed By: #### L 300.4310, L100.1900, L300.3900 #### [facility] Laboratory [address] [place], [address] PT Coag (PPP) [Time] 14.9 s Normal 11.7-14.9 [facility] Comment on above: Order Comment: SEND INR TO Performed By: #### L 300.4310, L100.1900, L300.3900 #### [facility] Laboratory [address] [place], [address] Prothrombin timeOrdered By: Terence Alba on 11-03-2024 PT Coag (PPP) [Time] 14.9 s 11.7-14.9 [facility] RBC Auto (Bld) [#/Vol]Ordere d By: Zhang Quick on 11-03-2024 RBC (Bld) [#/Vol] 3.58 10*6/uL Low 4.6-6.2 [facility] Random urine protein measure mentOrdered By: Zhang Quick on 11-03-2024 Protein (U) [Mass/Vol] 24.9 mg/dL High 0.0-11.8 [facility] Renal Profileon 11-03-2024 Albumin [Mass/Vol] 3.3 g/dL Normal 3.2-5.0 [facility] Comment on above: Performed By: #### L 300.4310, L100.1900, L300.3900 #### [facility] Laboratory [address] [place], [address] BUN/CRE 28.5 RATIO High - [facility] Comment on above: Performed By: #### L 300.4310, L100.1900, L300.3900 #### [facility] Laboratory [address] [place], [address] CA,Total 9.3 mg/dL Normal 8.5-10.1 [facility] Comment on above: Performed By: #### L 300.4310, L100.1900, L300.3900 #### [facility] Laboratory [address] [place], [address] Chloride [Moles/Vol] 104 mmol/L Normal 98-107 [facility] Comment on above: Performed By: #### L 300.4310, L100.1900, L300.3900 #### [facility] Laboratory [address] [place], [address] CO2 [Moles/Vol] 31.0 mmol/L Normal 21.0-32.0 [facility] Comment on above: Performed By: #### L 300.4310, L100.1900, L300.3900 #### [facility] Laboratory [address] [place], [address] Creatinine [Mass/Vol] 1.58 mg/dL High 0.70-1.30 [facility] Comment on above: Result Comment: The validity of the calculated GFR GFRAA in patients over 70 years has not been determined. Clinical correlation is essential. Performed By: #### L 300.4310, L100.1900, L300.3900 #### [facility] Laboratory [address] [place], [address] EST GFR - AA 55 mL/min Low >60 [facility] Comment on above: Result Comment: Afri can Ghanaian GFR Calc Performed By: #### L 300.4310, L100.1900, L300.3900 #### [facility] Laboratory [address] [place], [address] GFR/1.73 sq M.predicted among non-blacks MDRD (S/P/Bld) [Vol rate/Area] 46 mL/min/{1.73_m2} Low >60 [facility] Comment on above: Result Comment: Non- GFR Calc Performed By: #### L 300.4310, L100.1900, L300.3900 #### [facility] Laboratory [address] [place], [address] Glucose [Mass/Vol] 90 mg/dL Normal 74-106 [facility] Comment on above: Performed By: #### L 300.4310, L100.1900, L300.3900 #### [facility] Laboratory [address] [place], [address] Phosphate [Mass/Vol] 4.2 mg/dL Normal 2.5-4.9 [facility] Comment on above: Performed By: #### L 300.4310, L100.1900, L300.3900 #### [facility] Laboratory [address] [place], [address] Potassium [Moles/Vol] 4.3 mmol/L Normal 3.5-5.1 [facility] Comment on above: Performed By: #### L 300.4310, L100.1900, L300.3900 #### [facility] Laboratory [address] [place], [address] Sodium [Moles/Vol] 139 mmol/L Normal 136-145 [facility] Comment on above: Performed By: #### L 300.4310, L100.1900, L300.3900 #### [facility] Laboratory [address] [place], [address] Urea nitrogen [Mass/Vol] 45 mg/dL High 03-31 [facility] Comment on above: Performed By: #### L 300.4310, L100.1900, L300.3900 #### [facility] Laboratory [address] [place], [address] Serum or plasma albumin acacia urement (mass/volume)Ordered By: Zhang Quick on 11-03-2024 Albumin [Mass/Vol] 3.3 g/dL 3.2-5.0 [facility] Serum or plasma calcium acacia urement (mass/volume)Ordered By: Zhang Quick on 11-03-2024 Calcium [Mass/Vol] 9.3 mg/dL 8.5-10.1 [facility] Serum or plasma creatinine m easurement (mass/volume)Ordered By: Zhang Quick on 11-03-2024 Creatinine [Mass/Vol] 1.58 mg/dL High 0.70-1.30 [facility] Comment on above: The validity of the calculated GFR & GFRAA in patients over 70 years has not been determined. Clinical correlation is essential. Serum or plasma urea nitroge n measurement (mass/volume)Ordered By: Zhang Quick on 11-03-2024 Urea nitrogen [Mass/Vol] 45 mg/dL High 18 [facility] Sodium levelOrdered By: Orlando Quick on 11-03-2024 Sodium [Moles/Vol] 139 mmol/L 136-145 [facility] Urine creatinine measurement (mass/volume)Ordered By: Zhang Quick on 11-03-2024 Creatinine (U) [Mass/Vol] 38.20 mg/dL NO RANGE EST. [facility] Urine protein/creatinine mas s ratioOrdered By: Zhang Quick on 11-03-2024 Protein/Creatinine (U) [Mass ratio] 652 mg/g CRE High 0-200 [facility] Vitamin D,25 Hydroxyon 11-03 Vitamin D 25-OH 59.8 ng/mL Normal [facility] Comment on above: Result Comment: Mari min D 25(OH) Status Range Deficiency <20 ng/mL (50nmol/L) Insufficiency 20 - 30 ng/mL (50 - 75 nmol/L) Sufficiency 30 - 100 ng/mL (75 - 250 nmol/L) Toxicity >100 ng/mL (>250 nmol/L) Performed By: #### L 300.4310, L100.1900, L300.3900 #### [facility] Laboratory [address] [place], [address] White blood cell (WBC) count Ordered By: Zhang Quick on 11-03-2024 WBC (Bld) [#/Vol] 4.8 10*3/uL 4.4-11.0 [facility] aPTT Coag (PPP) [Time]Ordere d By: Terence Alba on 11-03-2024 aPTT Coag (Bld) [Time] 27.1 s 24.1-36.2 [facility] MR/PAT.Sean 11-02-2024 MR/PAT.[facility] Medical Records Department [address] [place] [address] PAT - Anesthesia 11/02/24 1515 MR#: [id number] Acct: [id number] Name: TYRELL REYES Bebo Rep #: [id number] : 1950 73 From: Graham Bazzi MD PCP: Dr. 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] Tobacco Use History Tobacco 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: Tobacco 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 Tobacco Use Smoking Status Former smoker 11/02/24 14:57 Hx Tobacco Use Yes 11/02/24 14:57 Years Smoking Packs Smoked per Day Smoking Cessation Date was No - quit smoking greater 11/02/24 14:57 within the last 15 years than 15 years ago Hx Smoking Cessation Date 09/14/97 11/02/24 14:57 Hx Smoking Cessation No 11/02/24 14:57 Counseling Hematologic Medial History Hematologic Hx - 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 Normal [facility] 6 Minute Walk Teston 10-24- 025 6 Minute Walk Test y [facility] Pulmonary Services/Neurology [address] [place] [address] MR#: [id number] Acct: [id number] Name: TYRELL REYES Rep #: [id number] : 1950 73 From: Terence Alba DO Referring Dr: Terence Alba DO Status: REG CLI Location: PSN Date: Sex: M C PSN 6 Minute Walk Test 6 Minute Walk Test 6 Minute Walk Test: 6 Minute Walk Test PSN:6-Minute Walk Test Start: 10/20/24 12:37 Freq: Status: Active Protocol: RESP.6MINW Document 10/20/24 12:37 [place] (Rec: 10/20/24 12:42 SFENTON [id number]) 6 Minute Walk Test Date Performed 10/20/24 [...] CC: Date Dictated: 10/24/241224 Date Transcribed: 10/24/241224 Workforce Management Coordinator: Dr. Terence Alba, DO Signed Normal [facility] Modified Barium Swallow Stud yon 10-21-[address] [facility] Speech Pathology [address] [place] [address] Modified Barium Swallow Study MR#: [id number] Acct: [id number] Name: TYRELL REYES Rep #: [id number] : 1950 73 From: Betsy Nguyen M.A., [facility]-WORK CHECKER Modified Barium Swallow Patient Information Study Date: [...] to SCC of supraglottic larynx: BSE with WORK CHECKER 02/11/24 revealed mild oropharyngeal dysphagia and recommended Regular textures / Thin liquids with compensatory strategies to decrease risk for aspiration. WORK CHECKER recommended MBSS prior to radiation treatment to [...] of supplement daily and pt follows w/ client support associate. He has had significant weight loss since [...] failure, HLD, Atherosclerosis of coronary artery of [place] heart without angina pectoris, Stenosis of left [...] has penetrated (more content not included)... Normal [facility] Pulmonary Visit Reporton Pulmonary Visit Report [facility] Pulmonary Medicine of [address] [place] [address] OFFICE VISIT Date of Service: 10/13/24 MR#: [id number] Acct: [id number] Name: TYRELL REYES Bebo Rep #: [id number] : 1950 Provider: Dr. 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 The patient has an approximate 09-hcgh-fcok smoking history, having quit completely 30 years ago. 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 Normal [facility] Radiation Oncology Visiton 0 10-07-2024 Radiation Oncology Visit [facility] [address] [place] [address] OFFICE VISIT Date of Service: 10/07/24858 MR#: [id number] Acct: [id number] Name: TYRELL REYES Bebo Rep #: [id number] : 1950 From: Riki Lizama DO Age/Sex: 73/M [place] [facility] [place]: Signed Intake Vital Signs 06/30/24 10:17 [...] disease Hyperlipidemia Atherosclerosis of coronary artery of [place] heart without angina pectoris Stenosis of left [...] of the (more content not included)... Normal [facility] INR Coag (BldC) [Relative ti me]Ordered By: Zhang Quick on 10-04-2024 INR Coag (Bld) [Relative time] 2.8 {INR} [facility] Comment on above: Critical Value > 4.0 PET/CT Tumor Base -Thigh Sub son 10-04-2024 PET/CT Tumor Base -Thigh Subs [facility] Imaging Services [address] [place] [address] PET/CT Tumor Base -Thigh Subs MR#: [id number] Acct: [id number] Name: TYRELL REYES Rep #: [id number] : 1950 M 73 From: Ricky Galvez PCP: Dr. Lexus Rivera, DO Status: REG RCR Study: PET/CT Tumor Base -Thigh Subs Date of Exam: Exam# [id number] Ordering Dr: Riki Lizama DO [id number] EXAMINATION: FDG-PET/CT ? INDICATIONS: 73-year-old male with [...] this report are calculated using the exclusive [employer]. (U.S. Patent No. [id number] [id number] 983 B2 [phone] [place] patent [id number] [id number] [id number]). Standardization and correction of the FDG SUV metric via [employer] technology allow for vendor non-specific objective quantitative examination comparison and optimization of the sensitivity and specificity of the FDG PET-CT examination. [email or web address] Electronically Signed: Ricky Leon DO at 22:29 EST , (more content not included)... Normal [facility] PT Coag (Bld) [Time]Ordered By: Zhang Quick on 10-04-2024 Bedside Prothrombin Time 28.5 SEC High 11.7-14.9 [facility] [facility] Protime w/INR Fingerstickon 10-04-2024 INR Coag (PPP) [Relative time] 2.8 {INR} Normal [facility] Comment on above: Result Comment: Crit ical Value > 4.0 Performed By: #### L 300.4310, L100.1900, L300.3900 #### [facility] Laboratory [address] [place], [place], [id number] Protime Coagsen 28.5 SEC High 11.7-14.9 [facility] Comment on above: Performed By: #### L 300.4310, L100.1900, L300.3900 #### [facility] Laboratory [address] [place], [place], [id number] Cardiology Visit Reporton Cardiology Visit Report [facility] [address] [place] [address] OFFICE VISIT Date of Service: 08/29/24 MR#: [id number] Acct: [id number] Name: TYRELL REYES Rep #: [id number] : 1950 Provider: KATH Garcia Age/Sex: 73/M Location: [facility] Status: Signed HPI HPI History of Present Illness Details: This is a 73-year-old gentleman who presents here today for a cardiovascular follow-up. He does have a history of coronary artery disease with mild disease noted in his LAD, circumflex and a totally occluded RCA with [id number] collaterals. He also has a history of [...] Monitor Intake Visit Reasons: 3 M FU [employer] Required: No Accompanied by: Significant Other Is [...] disease Hyperlipidemia Atherosclerosis of coronary artery of [place] heart without angina pectoris Stenosis of left [...] at res (more content not included)... Normal [facility] Re-Evalution OTon 08-15-2024 Re-Evalution OT [facility] Occupational Therapy [facility] [address] [place] [address] / REEVALUATION / MEDICARE RECERTIFICATION OCCUPATIONAL THERAPY MR#: [id number] Acct: [id number] Name: TYRELL REYES Rep #: [id number] : 1950 73 From: Payal Mina OTR/L, CHT Referring Dr.: Dr. Riki Lizama DO Status: RE G RCR Insurance: MEDICARE PART A B Eval Date: [facility] Re-Evaluation Intro: Dr. Riki Lizama, , It [...] send initial eval and progress note to [facility] to initiate order of pump. Plan [...] do not hesitate to contact me at [phone] by phone or if you have questions or concerns regarding this new plan of care! Sincerely, Payal Mina, OTR/L, CHT 08/15/24 1141 CC: Dr. Lexus Rivera, ; Dr. Riki Lizama DO MK Signed For Medicare only, by signing this I certify the plan of care. ____ Physicians Signature Date Normal [facility] [id number] DOrdered By: Ian Quick on 08-12-2024 Vitamin D 25-Hydroxy 69.0 ng/mL [facility] Comment on above: Vitamin D 25(OH) Sta tus Range Deficiency <20 ng/mL (50nmol/L) Insufficiency 20 - 30 ng/mL (50 - 75 nmol/L) Sufficiency 30 - 100 ng/mL (75 - 250 nmol/L) Toxicity >100 ng/mL (>250 nmol/L) Albumin to globulin ratioOrd ered By: Lexus Rivera on 08-12-2024 Albumin/Globulin [Mass ratio] 0.8 {ratio} Low 0.9-2.4 [facility] Bilirubin directOrdered By: Lexus Rivera on 08-12-2024 Bilirubin.direct [Mass/Vol] 0.15 mg/dL 0.00-0.30 [facility] Bilirubin, Directon 08-12-20 24 Bilirubin.direct [Mass/Vol] 0.15 mg/dL Normal 0.00-0.30 [facility] Comment on above: Performed By: #### L 300.4310, L100.1900, L300.3900 #### [facility] Laboratory [address] [place], [address] Bilirubin, totalOrdered By: Lexus Rivera on 08-12-2024 Bilirubin [Mass/Vol] 0.40 mg/dL 0.20-1.00 [facility] Comment on above: For patients on eltr ombopag therapy, use of Dimension [place] TBIL is not recommended. Blood urea nitrogen (BUN)/cr eatinine ratioOrdered By: Lexus Rivera on 08-12-2024 Urea nitrogen/Creatinine [Mass ratio] 27.2 mg/mg High 10- [facility] CBC-Complete Blood Cnt No Di ffon 08-12-2024 Erythrocyte distribution width (RBC) [Ratio] 13.2 % Normal 11.6-14.6 [facility] Comment on above: Performed By: #### L 300.4310, L100.1900, L300.3900 #### [facility] Laboratory [address] [place], [address] Hematocrit (Bld) [Volume fraction] 34.1 % Low 40-54 [facility] Comment on above: Performed By: #### L 300.4310, L100.1900, L300.3900 #### [facility] Laboratory [address] [place], [address] Hemoglobin (Bld) [Mass/Vol] 11.5 g/dL Low 13.0-16.5 [facility] Comment on above: Performed By: #### L 300.4310, L100.1900, L300.3900 #### [facility] Laboratory [address] [place], [address] MCH (RBC) [Entitic mass] 31.6 pg Normal 27.0-32.0 [facility] Comment on above: Performed By: #### L 300.4310, L100.1900, L300.3900 #### [facility] Laboratory [address] [place], [address] MCHC (RBC) [Mass/Vol] 33.7 g/dL Normal 32-36 [facility] Comment on above: Performed By: #### L 300.4310, L100.1900, L300.3900 #### [facility] Laboratory [address] [place], [address] MCV (RBC) [Entitic vol] 93.7 fL Normal 80-[address] [facility] Comment on above: Performed By: #### L 300.4310, L100.1900, L300.3900 #### [facility] Laboratory [address] [place], [address] Platelet mean volume (Bld) [Entitic vol] 10.1 fL Normal 6.2-12.0 [facility] Comment on above: Performed By: #### L 300.4310, L100.1900, L300.3900 #### [facility] Laboratory [address] [place], [address] Platelets (Bld) [#/Vol] 187 10*3/uL Normal 150-450 [facility] Comment on above: Performed By: #### L 300.4310, L100.1900, L300.3900 #### [facility] Laboratory [address] [place], [address] RBC (Bld) [#/Vol] 3.64 10*6/uL Low 4.6-6.2 [facility] Comment on above: Performed By: #### L 300.4310, L100.1900, L300.3900 #### [facility] Laboratory [address] [place], [address] RDW SD 45.0 fl High 35.1-43.9 [facility] Comment on above: Performed By: #### L 300.4310, L100.1900, L300.3900 #### [facility] Laboratory [address] [place], [address] WBC (Bld) [#/Vol] 6.4 10*3/uL Normal 4.4-11.0 [facility] Comment on above: Performed By: #### L 300.4310, L100.1900, L300.3900 #### [facility] Laboratory [address] [place], [address] Carbon dioxide measurementOr dered By: Lexus Rivera on 08-12-2024 CO2 [Moles/Vol] 30.0 mmol/L 21.0-32.0 [facility] Chloride measurementOrdered By: Lexus Rivera on 08-12-2024 Chloride [Moles/Vol] 104 mmol/L 98-107 [facility] Comprehensive Metabolic Prof ilon 08-12-2024 Albumin [Mass/Vol] 3.3 g/dL Normal 3.2-5.0 [facility] Comment on above: Performed By: #### L 300.4310, L100.1900, L300.3900 #### [facility] Laboratory [address] [place], [address] Albumin/Globulin [Mass ratio] 0.8 {ratio} Low 0.9-2.4 [facility] Comment on above: Performed By: #### L 300.4310, L100.1900, L300.3900 #### [facility] Laboratory [address] [place], [address] ALK P 106 U/L Normal 45-117 [facility] Comment on above: Performed By: #### L 300.4310, L100.1900, L300.3900 #### [facility] Laboratory [address] [place], [address] ALT [Catalytic activity/Vol] 28 U/L Normal 16-61 [facility] Comment on above: Performed By: #### L 300.4310, L100.1900, L300.3900 #### [facility] Laboratory [address] [place], [address] AST [Catalytic activity/Vol] 22 U/L Normal 15-37 [facility] Comment on above: Performed By: #### L 300.4310, L100.1900, L300.3900 #### [facility] Laboratory [address] [place], [address] Bilirubin [Mass/Vol] 0.40 mg/dL Normal 0.20-1.00 [facility] Comment on above: Result Comment: For patients on eltrombopag therapy, use of Dimension [place] TBIL is not recommended. Performed By: #### L 300.4310, L100.1900, L300.3900 #### [facility] Laboratory [address] [place], [address] BUN/CRE 27.2 RATIO High 10-20 [facility] Comment on above: Performed By: #### L 300.4310, L100.1900, L300.3900 #### [facility] Laboratory [address] [place], [address] CA,Total 9.5 mg/dL Normal 8.5-10.1 [facility] Comment on above: Performed By: #### L 300.4310, L100.1900, L300.3900 #### [facility] Laboratory [address] [place], [address] Chloride [Moles/Vol] 104 mmol/L Normal 98-107 [facility] Comment on above: Performed By: #### L 300.4310, L100.1900, L300.3900 #### [facility] Laboratory [address] [place], [address] CO2 [Moles/Vol] 30.0 mmol/L Normal 21.0-32.0 [facility] Comment on above: Performed By: #### L 300.4310, L100.1900, L300.3900 #### [facility] Laboratory [address] [place], [address] Creatinine [Mass/Vol] 1.80 mg/dL High 0.70-1.30 [facility] Comment on above: Result Comment: The validity of the calculated GFR GFRAA in patients over 70 years has not been determined. Clinical correlation is essential. Performed By: #### L 300.4310, L100.1900, L300.3900 #### [facility] [address] [place], [address] EST GFR - AA 47 mL/min Low >60 [facility] Comment on above: Result Comment: Afri can [place] GFR Calc Performed By: #### L 300.4310, L100.1900, L300.3900 #### [facility] Laboratory [address] [place], [address] GAP 6 Normal 5-15 [facility] Comment on above: Performed By: #### L 300.4310, L100.1900, L300.3900 #### [facility] Laboratory [address] [place], [address] GFR/1.73 sq M.predicted among non-blacks MDRD (S/P/Bld) [Vol rate/Area] 39 mL/min/{1.73_m2} Low >60 [facility] Comment on above: Result Comment: Non- GFR Calc Performed By: #### L 300.4310, L100.1900, L300.3900 #### [facility] Laboratory [address] [place], [address] Globulin (S) [Mass/Vol] 4.3 g/dL High 2.2-4.[address] [facility] Comment on above: Performed By: #### L 300.4310, L100.1900, L300.3900 #### [facility] Laboratory [address] [place], [address] Glucose [Mass/Vol] 96 mg/dL Normal 74-106 [facility] Comment on above: Performed By: #### L 300.4310, L100.1900, L300.3900 #### [facility] Laboratory [address] [place], [address] Potassium [Moles/Vol] 4.1 mmol/L Normal 3.5-5.1 [facility] Comment on above: Performed By: #### L 300.4310, L100.1900, L300.3900 #### [facility] Laboratory [address] [place], [address] Sodium [Moles/Vol] 140 mmol/L Normal 136-145 [facility] Comment on above: Performed By: #### L 300.4310, L100.1900, L300.3900 #### [facility] Laboratory [address] [place], [address] T PROT 7.6 g/dL Normal 6.4-8.2 [facility] Comment on above: Performed By: #### L 300.4310, L100.1900, L300.3900 #### [facility] Laboratory [address] [place], [address] Urea nitrogen [Mass/Vol] 49 mg/dL High 7-18 [facility] Comment on above: Performed By: #### L 300.4310, L100.1900, L300.3900 #### [facility] Laboratory [address] [place], [address] Direct serum free thyroxine (FT4) measurementOrdered By: Lexus Rivera on 08-12-2024 Free T4 [Mass/Vol] 0.94 ng/dL 0.76-1.46 [facility] Erythrocyte distribution wid th ratioOrdered By: Zhang Quick on 08-12-2024 Erythrocyte distribution width (RBC) [Ratio] 13.2 % 11.6-14.6 [facility] Erythrocyte distribution wid th standard deviationOrdered By: Zhang Quick on 08-12-2024 Erythrocyte distribution width (RBC) [Entitic vol] 45.0 fL High 35.1-43.9 [facility] Estimated glomerular filtrat ion rate (GFR) AmericanOrdered By: Lexus Rivera on 08-12-2024 Estimated GFR (MDRD) Amer 47 mL/min Low >60 [facility] Comment on above: GFR Calc Glomerular filtration rate ( GFR) estimationOrdered By: Lexus Rivera on 08-12-2024 Estimated GFR (MDRD) Non-Af Amer 39 mL/min Low >60 [facility] Comment on above: Non- GFR Calc Glucose measurementOrdered B y: Lexus Rivera on 08-12-2024 Glucose [Mass/Vol] 96 mg/dL 74-106 [facility] Hematocrit Auto (Bld) [Volum e fraction]Ordered By: Zhang Quick on 08-12-2024 Hematocrit (Bld) [Volume fraction] 34.1 % Low 40-54 [facility] Hemoglobin measurementOrdere d By: Zhang Quick on 08-12-2024 Hemoglobin (Bld) [Mass/Vol] 11.5 g/dL Low 13.0-16.5 [facility] High density lipoprotein (HD L) measurementOrdered By: Lexus Rivera on 08-12-2024 Cholesterol in HDL [Mass/Vol] 36 mg/dL Low >40 [facility] Comment on above: The drugs N-Acetylcy steine and Metamizole may falsely depress this assay. Reference Range HDL <40 mg/dL Low HDL Cholesterol HDL >or= 60 mg/dL High HDL Cholesterol International normalized rat io (INR) calculationOrdered By: Zhang Quick on 08-12-2024 INR Coag (Bld) [Relative time] 2.2 {INR} [facility] Laboratory - Chemistry and C hemistry - challengeOrdered By: Lexus Rivera on 08-12-2024 AST [Catalytic activity/Vol] 22 U/L 15-37 [facility] Lipid Profileon 08-12-2024 Cholesterol [Mass/Vol] 164 mg/dL Normal 200 [facility] Comment on above: Result Comment: <200 mg/dL Desirable 200-240 mg/dL Borderline >240 mg/dL High Risk Performed By: #### L 300.4310, L100.1900, L300.3900 #### [facility] Laboratory [address] [place], [address] Cholesterol in HDL [Mass/Vol] 36 mg/dL Low [facility] Comment on above: Result Comment: The drugs N-Acetylcysteine and Metamizole may falsely depress this assay. Reference Range HDL <40 mg/dL Low HDL Cholesterol HDL >or= 60 mg/dL High HDL Cholesterol Performed By: #### L 300.4310, L100.1900, L300.3900 #### [facility] [address] [place], [address] Cholesterol in LDL [Mass/Vol] 82 mg/dL Normal 0-130 [facility] Comment on above: Performed By: #### L 300.4310, L100.1900, L300.3900 #### [facility] Laboratory [address] [place], [address] Cholesterol in VLDL [Mass/Vol] 46 mg/dL High 5-40 [facility] Comment on above: Performed By: #### L 300.4310, L100.1900, L300.3900 #### [facility] Laboratory [address] [place], [address] Triglyceride [Mass/Vol] 231 mg/dL High [facility] Comment on above: Result Comment: The drugs N-Acetylcysteine and Metamizole may falsely depress this assay. Serum Triglycerides Reference Interval Normal <150 mg/dL Borderline high 150 - 199 mg/dL High 200 - 499 mg/dL Very High > or = 500 mg/dL Performed By: #### L 300.4310, L100.1900, L300.3900 #### [facility] [address] [place], [address] Low density lipoprotein (LDL ) cholesterol measurementOrdered By: Lexus Rivera on 08-12-2024 Cholesterol in LDL [Mass/Vol] 82 mg/dL 0-130 [facility] MCV (mean corpuscular volume ) determinationOrdered By: Kerman Abdelrahman on 08-12-2024 MCV (RBC) [Entitic vol] 93.7 fL 80-[address] [facility] Mean corpuscular hemoglobin (MCH) determinationOrdered By: Kerman Abdelrahman on 08-12-2024 MCH (RBC) [Entitic mass] 31.6 pg 27.0-32.0 [facility] Mean corpuscular hemoglobin concentration (MCHC) determinationOrdered By: Kerman Abdelrahman on 08-12-2024 MCHC (RBC) [Mass/Vol] 33.7 g/dL 32-36 [facility] Mean platelet volume determi nationOrdered By: Zhang Abdelrahman on 08-12-2024 Platelet mean volume (Bld) [Entitic vol] 10.1 fL 6.2-12.0 [facility] Microalb:Creat Ratio,Random URon 08-12-2024 Creatinine [Mass/Vol] 219.00 mg/dL Normal NO RAN GE EST. [facility] Comment on above: Performed By: #### L 9200.0000 #### [facility] Laboratory [address] [place], [place], [id number] MALB:CRE 49.3 mg/g CRE High <30 mg/g CRE [facility] Comment on above: Performed By: #### L 9200.0000 #### [facility] [address] [place], [place], [id number] MICROALBUMIN,UR 108.0 mg/L Normal NO RANGE EST. [facility] Comment on above: Performed By: #### L 9200.0000 #### [facility] [address] [place], [place], [id number] Phosphoruson 08-12-2024 Phosphate [Mass/Vol] 3.6 mg/dL Normal 2.5-4.9 [facility] Comment on above: Performed By: #### L 300.4310, L100.1900, L300.3900 #### [facility] [address] [place], [address] Phosphorus measurementOrdere d By: Lexus Rivera on 08-12-2024 Phosphorus Level 3.6 mg/dL 2.5-4.9 [facility] Platelet countOrdered By: Cy ril Abdelrahman on 08-12-2024 Platelets (Bld) [#/Vol] 187 10*3/uL 150-450 [facility] Potassium measurementOrdered By: Lexus Rivera on 08-12-2024 Potassium [Moles/Vol] 4.1 mmol/L 3.5-5.1 [facility] Prothrombin Time w/INRon INR Coag (PPP) [Relative time] 2.2 {INR} Normal [facility] Comment on above: Performed By: #### L 300.4310, L100.1900, L300.3900 #### [facility] [address] [place], [address] PT Coag (PPP) [Time] 23.9 s High 11.7-14.9 [facility] Comment on above: Performed By: #### L 300.4310, L100.1900, L300.3900 #### [facility] [address] [place], [address] Prothrombin timeOrdered By: Kerman Abdelrahman on 08-12-2024 PT Coag (PPP) [Time] 23.9 s High 11.7-14.9 [facility] RBC Auto (Bld) [#/Vol]Ordere d By: Kerman Abdelrahman on 08-12-2024 RBC (Bld) [#/Vol] 3.64 10*6/uL Low 4.6-6.2 [facility] Random urine microalbumin me asurementOrdered By: Kerman Abdelrahman on 08-12-2024 Urine Random Microalbumin 108.0 mg/L NO RANGE EST. [facility] Serum anion gap measurementO rdered By: Lexus Rivera on 08-12-2024 Anion gap [Moles/Vol] 6 mmol/L 5-15 [facility] Serum globulin measurementOr dered By: Lexus Rivera on 08-12-2024 Globulin (S) [Mass/Vol] 4.3 g/dL High 2.2-4.2 [facility] Serum or plasma alanine cohen otransferase (ALT) measurementOrdered By: Lexus Rivera on 08-12-2024 ALT [Catalytic activity/Vol] 28 U/L 16-61 [facility] Serum or plasma albumin acacia urement (mass/volume)Ordered By: Lexus Rivera on 08-12-2024 Albumin [Mass/Vol] 3.3 g/dL 3.2-5.0 [facility] Serum or plasma alkaline yumiko sphatase measurementOrdered By: Lexus Rivera on 08-12-2024 ALP [Catalytic activity/Vol] 106 U/L 45-117 [facility] Serum or plasma calcium acacia urement (mass/volume)Ordered By: Lexus Rivera on 08-12-2024 Calcium [Mass/Vol] 9.5 mg/dL 8.5-10.1 [facility] Serum or plasma cholesterol measurement (mass/volume)Ordered By: Lexus Rivera on 08-12-2024 Cholesterol [Mass/Vol] 164 mg/dL <200 [facility] Comment on above: <200 mg/dL Desirable 200-240 mg/dL Borderline >240 mg/dL High Risk Serum or plasma creatinine m easurement (mass/volume)Ordered By: Lexus Rivera on 08-12-2024 Creatinine [Mass/Vol] 1.80 mg/dL High 0.70-1.30 [facility] Comment on above: The validity of the calculated GFR & GFRAA in patients over 70 years has not been determined. Clinical correlation is essential. Serum or plasma urea nitroge n measurement (mass/volume)Ordered By: Lexus Rivera on 08-12-2024 Urea nitrogen [Mass/Vol] 49 mg/dL High 7-18 [facility] Sodium levelOrdered By: Zhao Rivera on 08-12-2024 Sodium [Moles/Vol] 140 mmol/L 136-145 [facility] T4 Free Directon 08-12-2024 T4 FREE DIRECT 0.94 ng/dL Normal 0.76-1.46 [facility] Comment on above: Performed By: #### L 9200.0000 #### [facility] [address] [place], [place], [id number] TSH QnOrdered By: Lexus maddox on 08-12-2024 Thyroid Stimulating Hormone (TSH) 1.470 uIU/mL 0.358-3.740 [facility] Thyroid Stim Hormone (TSH)on 08-12-2024 TSH 1.470 uIU/mL Normal 0.358-3.740 [facility] Comment on above: Performed By: #### L 300.4310, L100.1900, L300.3900 #### [facility] [address] [place], [place], [id number] Total proteinOrdered By: Cecilio Rivera on 08-12-2024 Protein [Mass/Vol] 7.6 g/dL 6.4-8.2 [facility] Triglycerides measurementOrd ered By: Lexus Rivera on 08-12-2024 Triglyceride [Mass/Vol] 231 mg/dL High <[address] [facility] Comment on above: The drugs N-Acetylcy steine and Metamizole may falsely depress this assay.Serum Triglycerides Reference Interval Normal <150 mg/dL Borderline high 150 - 199 mg/dL High 200 - 499 mg/dL Very High > or = 500 mg/dL Urine albumin/creatinine rat io for detection of microalbuminuriaOrdered By: Zhang Quick on 08-12-2024 Urine Microalbumin/Creatinine Ratio 49.3 mg/g CRE High <30 [facility] Urine creatinine measurement (mass/volume)Ordered By: Zhang Quick on 08-12-2024 Creatinine (U) [Mass/Vol] 219.00 mg/dL NO RANGE EST. [facility] Very low density lipoprotein (VLDL) cholesterol measurementOrdered By: Lexus Rivera on 08-12-2024 VLDL Cholesterol 46 mg/dL High 5-40 [facility] Vitamin D,25 Hydroxyon 08-12 Vitamin D 25-OH 69.0 ng/mL Normal [facility] Comment on above: Result Comment: Mari min D 25(OH) Status Range Deficiency <20 ng/mL (50nmol/L) Insufficiency 20 - 30 ng/mL (50 - 75 nmol/L) Sufficiency 30 - 100 ng/mL (75 - 250 nmol/L) Toxicity >100 ng/mL (>250 nmol/L) Performed By: #### L 9200.0000 #### [facility] Laboratory [address] [place], [address] White blood cell (WBC) count Ordered By: Zhang Quick on 08-12-2024 WBC (Bld) [#/Vol] 6.4 10*3/uL 4.4-11.0 [facility] OT General Evaluationon 11-0 OT General Evaluation [facility] Occupational Therapy [facility] [address] [place] [address] / REHABILITATION SERVICES INITIAL EVALUATION MR#: [id number] Acct: [id number] Name: TYRELL REYES Rep #: [id number] : 1950 73 From: Payal MARTIN CHT Referring Dr.: Dr. Riki Lizama DO Status: RE G R Insurance: MEDICARE PART A B Eval Date: [facility] Patient's Visit Information Visit Information Visit [...] failure, HLD, Atherosclerosis of coronary artery of [place] heart without angina pectoris, Stenosis of left [...] to be FAXED BACK to us at [phone] for Medicare purposes. Please let me know if there are questions or concerns regarding this plan of care. Physician Signature: Date: ____ 07/20/24 1149 CC: Dr. Lexus Rivera, DO; Dr. Riki Lizama DO DD: (more content not included)... Normal [facility] Protime w/INR Fingerstickon 07-14-2024 INR Coag (PPP) [Relative time] 2.5 {INR} Normal [facility] Comment on above: Result Comment: Crit ical Value > 4.0 Performed By: #### L 9200.0000 #### [facility] Laboratory [address] [place], [address] Protime Coagsen 26.8 SEC High 11.7-14.9 [facility] Comment on above: Performed By: #### L 9200.0000 #### [facility] Laboratory [address] [place], [address] Modified Barium Swallow Stud yon 07-13-[address] [facility] Speech Pathology [address] [place] [address] Modified Barium Swallow Study MR#: [id number] Acct: [id number] Name: TYRELL REYES Rep #: [id number] : 1950 73 From: Betsy Nguyen M.A., [facility]-WORK CHECKER Modified Barium Swallow Patient Information Study Date: [...] to SCC of supraglottic larynx: BSE with WORK CHECKER 02/11/24 revealed mild oropharyngeal dysphagia and recommended Regular textures / Thin liquids with compensatory strategies to decrease risk for aspiration. WORK CHECKER recommended MBSS prior to radiation treatment to [...] supplement oral intake and pt follows w/ client support associate. He has had significant weight loss and [...] failure, HLD, Atherosclerosis of coronary artery of [place] heart without angina pectoris, Stenosis of left [...] cough ref (more content not included)... Normal [facility] PT D/C Summary (1)on 024 PT D/C Summary (1) [facility] Physical Therapy [facility] [address] [place] [address] / REHABILITATION SERVICES DISCHARGE SUMMARY MR#: [id number] Acct: [id number] Name: TYRELL REYES Rep #: [id number] : 1950 73 From: Freddy Fish PT, Cert. T, OCS Referring Dr.: Dr. Riki Lizama DO Status: RE G RCR Insurance: MEDICARE PART A B [facility] Discharge Summary D/C summary: It has [...] please feel free to call me at [phone]. Thank you for the referral of this [...] Dr. Riki Lizama DO JLA Signed Normal [facility] SP/HP.XAVIERVomarisa 07-08-2024 SP/HP.SPRV [facility] Speech Pathology [facility] [address] [place] [address]. [address] [place] [id number] / REEVALUATION / MEDICARE RECERTIFICATION SPEECH THERAPY MR#: [id number] Acct: [id number] Name: TYRELL REYES Rep #: [id number] : 1950 73 From: Betsy Nguyen M.A., [employer]-WORK CHECKER Referring DrRadha: Dr. 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 WORK CHECKER recommended MBSS prior to radiation treatment to [...] supplement oral intake and pt follows w/ client support associate. He has had significant weight loss and [...] failure, HLD, Atherosclerosis of coronary artery of [place] heart without angina pectoris, Stenosis of left subclavian artery, CKD, DDD, Marijuana use, Diabetic neuropathy, Osteoarthritis, DM type 2, See EMR for full PMH). 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 Normal [facility] Radiation Oncology Visiton 1 Radiation Oncology Visit [facility] [place] [address] [address] OFFICE VISIT Date of Service: 06/30/24 1016 MR#: [id number] Acct: [id number] Name: TYRELL REYES Rep #: [id number] : 1950 From: Riki Lizama DO Age/Sex: 73/M Location: [facility] Status: Signed Intake Vital Signs 04/25/24 [...] disease Hyperlipidemia Atherosclerosis of coronary artery of [place] heart without angina pectoris Stenosis of left [...] fold o (more content not included)... Normal [facility] PET/CT Tumor Base -Thigh Sub son 06-21-2024 PET/CT Tumor Base -Thigh Subs [facility] Imaging Services [address] [place] [address] PET/CT Tumor Base -Thigh Subs MR#: [id number] Acct: [id number] Name: TYRELL REYES Rep #: [id number] : 1950 M 73 From: Ricky Galvez PCP: Dr. Lexus Rivera, DO Status: REG RCR Study: PET/CT Tumor Base -Thigh Subs Date of Exam: Exam# [id number] Ordering Dr: Riki Lizama DO [id number] EXAMINATION: FDG PET-CT INDICATIONS: A 73-year-old male [...] this report are calculated using the exclusive [employer], (U.S. Patent No. [phone] [phone] 983 B2 US [phone] [place] patent [phone] ). Standardization and correction of the FDG SUV metric exclusively available with [employer] intellectual property, allow for vendor non-specific objective quantitative sequential FDG PET-CT comparison and otherwise unobtainable optimization of the sensitivity and specificity of the examination. [email or web address] Electronically Signed: Ricky Leon DO at 16:19 EDT , CC: Dr. Lexus Rivera, DO; Dr. Riki Lizama, DO Workforce Management Coordinator: Signed Normal [facility] Protime w/INR Fingerstickon 06-17-2024 INR Coag (PPP) [Relative time] 2.3 {INR} Normal [facility] Comment on above: Result Comment: Crit ical Value > 4.0 Performed By: #### L 9200.0000 #### [facility] Laboratory [address] [place], [address] Protime Coagsen 24.0 SEC High 11.7-14.9 [facility] Comment on above: Performed By: #### L 9200.0000 #### [facility] Laboratory [address] [place], [place], [id number] Inital Evaluation (1) - PTon 06-10-2024 Inital Evaluation (1) - PT [facility] Physical Therapy [address] [place] [address] / REHABILITATION SERVICES INITIAL EVALUATION MR#: [id number] Acct: [id number] Name: TYRELL REYES Rep #: [id number] : 1950 73 From: Kya Norwood PT. MD Atkinson, OCS Referring Dr.: Dr. Riki Lizama DO Status: RE G RCR Insurance: MEDICARE PART A B [facility] Patient's Visit Information Visit Information Visit [...] to be FAXED BACK to us at [phone] for Medicare purposes. For Medicare only, by signing this I certify the plan of care. Please let me know if there are questions or concerns regarding this plan of care. Physician Signature: Date: ____ 06/10/24 1357 CC: Dr. Lexus Rivera DO; Dr. Riki Lizama DO DT: (more content not included)... Normal [facility] Protime w/INR Fingerstickon 06-03-2024 INR Coag (PPP) [Relative time] 2.1 {INR} Normal [facility] Comment on above: Result Comment: Crit ical Value > 4.0 Performed By: #### L 9200.0000 #### [facility] Laboratory [address] [place], [address] Protime Coagsen 22.3 SEC High 11.7-14.9 [facility] Comment on above: Performed By: #### L 9200.0000 #### [facility] Laboratory [address] [place], [address] BD BONE DENSITY DEXA AXIAL S KELETONon [...] 05/31/2024 12:46:20 PM Ordering Provider: LEXUS RIVERA [facility] Protime w/INR Fingerstickon 05-26-2024 INR Coag (PPP) [Relative time] 1.4 {INR} Normal [facility] Comment on above: Result Comment: Crit ical Value > 4.0 Performed By: #### L 9200.0000 #### [facility] Laboratory [address] [place], [address] Protime Coagsen 15.8 SEC High 11.7-14.9 [facility] Comment on above: Performed By: #### L 9200.0000 #### [facility] Laboratory [address] [place], [place], [address] Cardiology Visit Reporton Cardiology Visit Report [facility] [address] [place], [place] [address] OFFICE VISIT Date of Service: 05/25/24 MR#: [id number] Acct: [id number] Name: TYRELL REYES Rep #: [id number] : 1950 Provider: SUSANNA White rts Age/Sex: 73/M Location: [facility] Status: Signed HPI [facility] History of Present Illness Details: This is a 73-year-old gentleman who presents here today for a cardiovascular follow-up. He does have a history of coronary artery disease with mild disease noted in his LAD, circumflex and a totally occluded RCA with [id number] collaterals. 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 Normal [facility] Laboratory - CoagulationOrde red By: Mynor Luke on 01-18-2024 INR Coag (Bld) [Relative time] 1.7 {INR} [facility] PT Coag (PPP) [Time] 19.7 s 11.7-14.9 [facility] Thin prep Papanicolaou smear with manual screeningOrdered By: Elton Sanchez on 01-18-2024 Thin prep Papanicolaou smear with manual screening 131 mg/dL 74-106 [facility] Comment on above: MANAGEMENT OF PATIEN T CARE PER NURSING PROTOCOL Whole blood prothrombin time Ordered By: Elton Sanchez on 01-18-2024 PT Coag (Bld) [Time] 16.6 s 11.7-14.9 [facility] Basophil percentageOrdered B y: Elton Sanchez on 01-11-2024 Chloride [Moles/Vol] 108 mmol/L 98-107 [facility] Glucose [Mass/Vol] 149 mg/dL 74-106 [facility] Comment on above: Fasting Glucose resu lt greater than or equal to 126 mg/dL suggests DIABETES MELLITUS per A.D.A. criteria. Hemoglobin (Bld) [Mass/Vol] 12.5 g/dL 13.0-16.5 [facility] Potassium [Moles/Vol] 4.2 mmol/L 3.5-5.1 [facility] Sodium [Moles/Vol] 140 mmol/L 136-145 [facility] WBC (Bld) [#/Vol] 7.6 10*3/uL 4.4-11.0 [facility] Determination of erythrocyte mean corpuscular volume (MCV)Ordered By: Elton Sanchez on 01-11-2024 MCV (RBC) [Entitic vol] 92.4 fL 80-[address] [facility] Erythrocyte distribution wid th ratioOrdered By: Elton Sanchez on 01-11-2024 Erythrocyte distribution width (RBC) [Ratio] 13.3 % 11.6-14.6 [facility] Erythrocyte distribution wid th standard deviationOrdered By: Elton Sanchez on 01-11-2024 Erythrocyte distribution width (RBC) [Entitic vol] 45.4 fL 35.1-43.9 [facility] Hematocrit Auto (Bld) [Volum e fraction]Ordered By: Elton Sanchez on 01-11-2024 Hematocrit (Bld) [Volume fraction] 39.1 % 40-54 [facility] Laboratory - Chemistry and C hemistry - challengeOrdered By: Elton Sanchez on 01-11-2024 CO2 [Moles/Vol] 25.0 mmol/L 21.0-32.0 [facility] Urea nitrogen/Creatinine [Mass ratio] 11.5 mg/mg 10-20 [facility] Laboratory - Hematology and Cell countsOrdered By: Elton Sanchez on 01-11-2024 MCH (RBC) [Entitic mass] 29.6 pg 27.0-32.0 [facility] MCHC (RBC) [Mass/Vol] 32.0 g/dL 32-36 [facility] Platelet mean volume (Bld) [Entitic vol] 10.2 fL 6.2-12.0 [facility] Platelets (Bld) [#/Vol] 191 10*3/uL 150-450 [facility] No Panel InformationOrdered By: Elton Sanchez on 01-11-2024 Estimated GFR (MDRD) Amer 34 mL/min >60 [facility] Comment on above: GFR Calc Estimated GFR (MDRD) Non-Af Amer 28 mL/min >60 [facility] Comment on above: Non- GFR Calc RBC Auto (Bld) [#/Vol]Ordere d By: Elton Sanchez on 01-11-2024 RBC (Bld) [#/Vol] 4.23 10*6/uL 4.6-6.2 [facility] Serum or plasma calcium acacia urement (mass/volume)Ordered By: Elton Sanchez on 01-11-2024 Calcium [Mass/Vol] 8.9 mg/dL 8.5-10.1 [facility] Serum or plasma creatinine m easurement (mass/volume)Ordered By: Elton Sanchez on 01-11-2024 Creatinine [Mass/Vol] 2.44 mg/dL 0.70-1.30 [facility] Comment on above: The validity of the calculated GFR & GFRAA in patients over 70 years has not been determined. Clinical correlation is essential. Serum or plasma urea nitroge n measurement (mass/volume)Ordered By: Elton Sanchez on 01-11-2024 Urea nitrogen [Mass/Vol] 28 mg/dL 7-18 [facility] Thin prep Papanicolaou smear with manual screeningOrdered By: Elton Sanchez on 01-11-2024 Thin prep Papanicolaou smear with manual screening 7 5-15 [facility] Basophil percentageOrdered B y: Elton Sanchez on 01-07-2024 Creatinine [Mass/Vol] 2.1 mg/dL 0.70-1.30 [facility] Laboratory - Chemistry and C hemistry - challengeOrdered By: Elton Sanchez on 01-07-2024 GFR/1.73 sq M.predicted among non-blacks MDRD (S/P/Bld) [Vol rate/Area] 33.0000 mL/min/{1.73_m2} >60 [facility] Laboratory - CoagulationOrde red By: Zhang Quick on 01-07-2024 INR Coag (Bld) [Relative time] 2.8 {INR} [facility] PT Coag (PPP) [Time] 28.9 s 11.7-14.9 [facility] LABORATORYOrdered By: Gianna Perez on 12-01-2023 Amphetamines [...] EDUARDOLeslie 12-01-2023 Amphetamine (u) Negative Normal Negative [facility] ([place]) Comment on above: Performed By: #### U DRUG #### [place] [address] Barbiturate (u) Negative Normal Negative [facility] [place] Comment on above: Performed By: #### U DRUG #### [place] [address] Benzodiazepine (u) Negative Normal Negative [facility] ([place] Comment on above: Performed By: #### U DRUG #### [address] [address] Cannabinoid (u) Positive Abnormal Negative [facility] [place] Comment on above: Performed By: #### U DRUG #### [place] [address] Cocaine Ql (U) Negative Normal Negative [facility] ([place] Comment on above: Performed By: #### U DRUG #### [address] [address] Methadone Ql (U) Negative Normal Negative [facility] ([place] Comment on above: Performed By: #### U DRUG #### [place] [address] Opiate (u) Negative Normal Negative [facility] ([place] Comment on above: Performed By: #### U DRUG #### [address] [address] PCP (u) Negative Normal Negative [facility] ([place]) Comment on above: Performed By: #### U DRUG #### [address] [address] Urine Drugs screened: See Below Normal [facility] ([place]) Comment on above: Result Comment: This drug [...] Performed By: #### U DRUG #### [place] [address] Laboratory - CoagulationOrde red By: Zhang Quick on 11-25-2023 INR Coag (Bld) [Relative time] 2.0 {INR} [facility] PT Coag (PPP) [Time] 22.9 s 11.7-14.9 [facility] Basophil percentageOrdered B y: Rianna Barnhart on 11-16-2023 Basophil percentage 2.9 mg/dL 2.5-4.9 [facility] Chloride [Moles/Vol] 110 mmol/L 98-107 [facility] Glucose [Mass/Vol] 188 mg/dL 74-106 [facility] Comment on above: Fasting Glucose resu lt greater than or equal to 126 mg/dL suggests DIABETES MELLITUS per A.D.A. criteria. Hemoglobin (Bld) [Mass/Vol] 12.4 g/dL 13.0-16.5 [facility] Potassium [Moles/Vol] 4.3 mmol/L 3.5-5.1 [facility] Sodium [Moles/Vol] 138 mmol/L 136-145 [facility] WBC (Bld) [#/Vol] 6.3 10*3/uL 4.4-11.0 [facility] Determination of erythrocyte mean corpuscular volume (MCV)Ordered By: Rianna Barnhart on 11-16-2023 MCV (RBC) [Entitic vol] 92.5 fL 80-[address] [facility] Erythrocyte distribution wid th ratioOrdered By: Rianna Barnhart on 11-16-2023 Erythrocyte distribution width (RBC) [Ratio] 12.9 % 11.6-14.6 [facility] Erythrocyte distribution wid th standard deviationOrdered By: Rianna Barnhart on 03-04-2024 Erythrocyte distribution width (RBC) [Entitic vol] 43.7 fL 35.1-43.9 [facility] Hematocrit Auto (Bld) [Volum e fraction]Ordered By: Rianna Barnhart on 11-16-2023 Hematocrit (Bld) [Volume fraction] 38.5 % 40-54 [facility] Laboratory - Chemistry and C hemistry - challengeOrdered By: Rianna Barnhart on 11-16-2023 CO2 [Moles/Vol] 26.0 mmol/L 21.0-32.0 [facility] Urea nitrogen/Creatinine [Mass ratio] 12.7 mg/mg 10-20 [facility] Laboratory - Hematology and Cell countsOrdered By: Rianna Barnhart on 11-16-2023 MCH (RBC) [Entitic mass] 29.8 pg 27.0-32.0 [facility] MCHC (RBC) [Mass/Vol] 32.2 g/dL 32-36 [facility] Platelet mean volume (Bld) [Entitic vol] 10.0 fL 6.2-12.0 [facility] Platelets (Bld) [#/Vol] 180 10*3/uL 150-450 [facility] No Panel InformationOrdered By: Rianna Barnhart on 11-16-2023 Estimated GFR (MDRD) Amer 38 mL/min >60 [facility] Comment on above: GFR Calc Estimated GFR (MDRD) Non-Af Amer 31 mL/min >60 [facility] Comment on above: Non- GFR Calc Parathyroid Hormone (Intact) 72.7 pg/mL 18.4-80.1 [facility] Vitamin D 25-Hydroxy 63.1 ng/mL [facility] Comment on above: Vitamin D 25(OH) Sta tus Range Deficiency <20 ng/mL (50nmol/L) Insufficiency 20 - 30 ng/mL (50 - 75 nmol/L) Sufficiency 30 - 100 ng/mL (75 - 250 nmol/L) Toxicity >100 ng/mL (>250 nmol/L) RBC Auto (Bld) [#/Vol]Ordere d By: Rianna Barnhart on 11-16-2023 RBC (Bld) [#/Vol] 4.16 10*6/uL 4.6-6.2 [facility] Serum or plasma calcium acacia urement (mass/volume)Ordered By: Rianna Barnhart on 11-16-2023 Calcium [Mass/Vol] 8.6 mg/dL 8.5-10.1 [facility] Serum or plasma creatinine m easurement (mass/volume)Ordered By: Rianna Barnhart on 11-16-2023 Creatinine [Mass/Vol] 2.20 mg/dL 0.70-1.30 [facility] Comment on above: The validity of the calculated GFR & GFRAA in patients over 70 years has not been determined. Clinical correlation is essential. Serum or plasma urea nitroge n measurement (mass/volume)Ordered By: Rianna Barnhart on 11-16-2023 Urea nitrogen [Mass/Vol] 28 mg/dL 7-18 [facility] Thin prep Papanicolaou smear with manual screeningOrdered By: Rianna Barnhart on 11-16-2023 Protein (U) [Mass/Vol] 48.3 mg/dL 0.0-11.8 [facility] Thin prep Papanicolaou smear with manual screening 3.3 g/dL 3.2-5.0 [facility] Urine creatinine measurement (mass/volume)Ordered By: Rianna Barnhart on 11-16-2023 Creatinine (U) [Mass/Vol] 185.00 mg/dL NO RANGE EST. [facility] Urine protein/creatinine mas s ratioOrdered By: Rianna Barnhart on 11-16-2023 Protein/Creatinine (U) [Mass ratio] 261 mg/g CRE 0-200 [facility] Laboratory - CoagulationOrde red By: Zhang Quick on 11-04-2023 INR Coag (Bld) [Relative time] 2.3 {INR} [facility] PT Coag (PPP) [Time] 25.8 s 11.7-14.9 [facility] [place] 11-03-2023 U Creatinine 157.3 mg/dL Normal 39.0-259.0 [facility] ([place]) Comment on above: Performed By: #### M ALBR #### [place] [id number] U Microalb 8741 mcg/dL Normal [facility] [place] Comment on above: Performed By: #### M ALBR #### [facility] [address], [place] [address] U Ratio Alb/Cre 56 mcg/mg High 0-30 [facility] ([place] Comment on above: Performed By: #### M ALBR #### [facility] [address], [place] [address] Laboratory - CoagulationOrde red By: Zhang Quick on 10-14-2023 PT Coag (PPP) [Time] 17.5 s 11.7-14.9 [facility] Platelet poor plasma interna tional normalized ratio (INR)Ordered By: Zhang Quick on 10-14-2023 INR Coag (PPP) [Relative time] 1.4 {INR} [facility] Basophil percentageOrdered B y: Zhang Quick on 10-06-2023 Bilirubin [Mass/Vol] 0.60 mg/dL 0.20-1.00 [facility] Comment on above: For patients on eltr ombopag therapy, use of Dimension [place] TBIL is not recommended. Chloride [Moles/Vol] 108 mmol/L 98-107 [facility] Cholesterol [Mass/Vol] 146 mg/dL <200 [facility] Comment on above: <200 mg/dL Desirable 200-240 mg/dL Borderline >240 mg/dL High Risk Glucose [Mass/Vol] 205 mg/dL 74-106 [facility] Comment on above: Glucose result great er than or equal to 200 mg/dLsuggests DIABETES MELLITUS per A.D.A. criteria. Hemoglobin (Bld) [Mass/Vol] 11.7 g/dL 13.0-16.5 [facility] Potassium [Moles/Vol] 4.3 mmol/L 3.5-5.1 [facility] Protein [Mass/Vol] 6.7 g/dL 6.4-8.2 [facility] Sodium [Moles/Vol] 139 mmol/L 136-145 [facility] Triglyceride [Mass/Vol] 327 mg/dL <199 [facility] Comment on above: The drugs N-Acetylcy steine and Metamizole may falsely depress this assay.Serum Triglycerides Reference Interval Normal <150 mg/dL Borderline high 150 - 199 mg/dL High 200 - 499 mg/dL Very High > or = 500 mg/dL WBC (Bld) [#/Vol] 5.7 10*3/uL 4.4-11.0 [facility] Determination of erythrocyte mean corpuscular volume (MCV)Ordered By: Zhang Quick on 10-06-2023 MCV (RBC) [Entitic vol] 95.3 fL 80-[address] [facility] Erythrocyte distribution wid th ratioOrdered By: Kerman Abdelrahman on 10-06-2023 Erythrocyte distribution width (RBC) [Ratio] 13.8 % 11.6-14.6 [facility] Erythrocyte distribution wid th standard deviationOrdered By: Zhang Abdelrahman on 10-06-2023 Erythrocyte distribution width (RBC) [Entitic vol] 47.8 fL 35.1-43.9 [facility] Hematocrit Auto (Bld) [Volum e fraction]Ordered By: Zhang Quick on 10-06-2023 Hematocrit (Bld) [Volume fraction] 36.5 % 40-54 [facility] Laboratory - Chemistry and C hemistry - challengeOrdered By: Jolynn Davenport on 10-06-2023 Natriuretic peptide B (Bld) [Mass/Vol] 26.9 pg/mL 0-100 [facility] Laboratory - Chemistry and C hemistry - challengeOrdered By: Zhang Quick on 10-06-2023 Albumin/Creatinine DL <= 1.0 mg/L (24H U) [Ratio] 26.9 mg/g CRE <30 [facility] Albumin/Globulin [Mass ratio] 0.9 {ratio} 0.9-2.4 [facility] ALP [Catalytic activity/Vol] 103 U/L 45-117 [facility] ALT [Catalytic activity/Vol] 21 U/L 16-61 [facility] Cholesterol in HDL (Body fld) [Mass/Vol] 42 mg/dL >40 [facility] Comment on above: The drugs N-Acetylcy steine and Metamizole may falsely depress this assay. Reference Range HDL <40 mg/dL Low HDL Cholesterol HDL >or= 60 mg/dL High HDL Cholesterol Cholesterol in LDL (Body fld) [Moles/Vol] 39 mg/dL 0-130 [facility] Cholesterol in VLDL Calc [Moles/Vol] 65 mg/dL 5-40 [facility] CO2 [Moles/Vol] 27.0 mmol/L 21.0-32.0 [facility] Globulin (S) [Mass/Vol] 3.6 g/dL 2.2-4.[address] [facility] Parathyrin.intact (Tissue fine needle aspirate) [Mass/Vol] 98.6 pg/mL 18.4-80.1 [facility] Prostate specific Ag IA [Mass/Vol] 0.39 ng/mL 0.00-4.00 [facility] Comment on above: This test was perfor med using the TPSA assay method for the[employer] chemistry system. Values obtained with differentassay methods cannot be used interchangably.When changing PSA assays in the course of monitoring apatient, additional sequential testing should be carriedout to confirm baseline values. Urea nitrogen/Creatinine [Mass ratio] 11.7 mg/mg 10-20 [facility] Laboratory - Hematology and Cell countsOrdered By: Zhang Quick on 10-06-2023 MCH (RBC) [Entitic mass] 30.5 pg 27.0-32.0 [facility] MCHC (RBC) [Mass/Vol] 32.1 g/dL 32-36 [facility] Platelets (Bld) [#/Vol] 179 10*3/uL 150-450 [facility] No Panel InformationOrdered By: Zhang Quick on 10-06-2023 Estimated GFR (MDRD) Amer 39 mL/min >60 [facility] Comment on above: GFR Calc Estimated GFR (MDRD) Non-Af Amer 32 mL/min >60 [facility] Comment on above: Non- GFR Calc Vitamin D 25-Hydroxy 61.8 ng/mL [facility] Comment on above: Vitamin D 25(OH) Sta tus Range Deficiency <20 ng/mL (50nmol/L) Insufficiency 20 - 30 ng/mL (50 - 75 nmol/L) Sufficiency 30 - 100 ng/mL (75 - 250 nmol/L) Toxicity >100 ng/mL (>250 nmol/L) Platelet mean volume [facility] ker (Bld) [Entitic vol]Ordered By: Zhang Quick on 10-06-2023 Platelet mean volume (Bld) [Entitic vol] 10.0 fL 6.2-12.0 [facility] RBC Auto (Bld) [#/Vol]Ordere d By: Zhang Quick on 10-06-2023 RBC (Bld) [#/Vol] 3.83 10*6/uL 4.6-6.2 [facility] Serum or plasma calcium acacia urement (mass/volume)Ordered By: Zhang Quick on 10-06-2023 Calcium [Mass/Vol] 8.5 mg/dL 8.5-10.1 [facility] Serum or plasma creatinine m easurement (mass/volume)Ordered By: Zhang Quick on 10-06-2023 Creatinine [Mass/Vol] 2.14 mg/dL 0.70-1.30 [facility] Comment on above: The validity of the calculated GFR & GFRAA in patients over 70 years has not been determined. Clinical correlation is essential. Serum or plasma thyroid stim ulating hormone (TSH) measurement (units/volume)Ordered By: Zhang Quick on 10-06-2023 TSH Qn 1.04 uIU/mL 0.358-3.74 [facility] Serum or plasma urea nitroge n measurement (mass/volume)Ordered By: Zhang Quick on 10-06-2023 Urea nitrogen [Mass/Vol] 25 mg/dL 7-18 [facility] Thin prep Papanicolaou smear with manual screeningOrdered By: Zhang Quick on 10-06-2023 Protein (U) [Mass/Vol] 33.7 mg/dL 0.0-11.8 [facility] Thin prep Papanicolaou smear with manual screening 3.1 g/dL 3.2-5.0 [facility] Thin prep Papanicolaou smear with manual screening 16 U/L 15-37 [facility] Thin prep Papanicolaou smear with manual screening 4 5-15 [facility] Thin prep Papanicolaou smear with manual screening 47.8 mg/L NO RANGE EST. [facility] Urine creatinine measurement (mass/volume)Ordered By: Zhang Quick on 10-06-2023 Creatinine (U) [Mass/Vol] 178.00 mg/dL NO RANGE EST. [facility] Urine protein/creatinine mas s ratioOrdered By: Zhang Quick on 10-06-2023 Protein/Creatinine (U) [Mass ratio] 189 mg/g CRE 0-200 [facility] Whole blood hemoglobin A1c/t otal hemoglobin ratio (mass fraction)Ordered By: Zhang Quick on 10-06-2023 HbA1c (Bld) [Mass fraction] 6.9 % 3.8-5.6 [facility] Comment on above: Normal < 5.7 % Predi abetic 5.7 - 6.4 % Diabetic >or= 6.5 % Please note range changes. INR in Blood by Coagulation assayOrdered By: Susanna Gilbert on 09-20-2023 INR Coag (Bld) [Relative time] 9.8 {INR} [facility] Comment on above: CRITICAL VALUE VERIF IED. CALLED TO RIZWAN WILL09/20/23 0126 Freddy Martinez.RESULTS READ BACK BY SAME . Laboratory - CoagulationOrde red By: Susanna Gilbert on 09-20-2023 PT Coag (PPP) [Time] 80.8 s 11.7-14.9 [facility] INR in Blood by Coagulation assayOrdered By: Zhang Quick on 07-06-2023 INR Coag (Bld) [Relative time] 3.0 {INR} [facility] Laboratory - CoagulationOrde red By: Zhang Quick on 07-06-2023 PT Coag (PPP) [Time] 31.1 s 11.7-14.9 [facility] .GFRon 06-23-2023 GFR Non- 30 ml/min/1.73sqm Normal [facility] ([place]) Comment on above: Result Comment: GFR Population [...] Performed By: #### Yoon SKINNER, CMP #### [address] [address] GFR 37 ml/min/1.73sqm Normal [facility] ([place]) Comment on above: Result Comment: GFR Population [...] Performed By: #### Yoon SKINNER, CMP #### [address] [address] CMPon 06-23-2023 Albumin Level 3.6 G/dL Normal 3.4-4.8 [facility] ([place]) Comment on above: Performed By: #### Yoon SKINNER, CMP #### [address] [address] Albumin/Globulin [Mass ratio] 1.0 {ratio} Low 1.1-2.5 [facility] ([place]) Comment on above: Performed By: #### Yoon SKINNER, CMP #### [address] [address] ALP [Catalytic activity/Vol] 110 U/L Normal 40-135 [facility] ([place]) Comment on above: Performed By: #### Yoon SKINNER, CMP #### [address] [address] ALT [Catalytic activity/Vol] 32 U/L Normal 16-63 [facility] ([place]) Comment on above: Performed By: #### Yoon SKINNER, CMP #### [address] [address] AST [Catalytic activity/Vol] 21 U/L Normal 10-40 [facility] ([place] Comment on above: Performed By: #### G , CMP #### [address] [address] Bili Total 0.6 mg/dL Normal 0.2-1.0 [facility] ([place] Comment on above: Result Comment: Use of this assay is not recommended for patients undergoing treatment with eltrombopag due to the potential for falsely elevated results. Performed By: #### Yoon SKINNER, CMP #### [address] [address] BUN/Creatinine Ratio 12 ratio Normal 7-27 [facility] ([place]) Comment on above: Performed By: #### Yoon SKINNER, CMP #### [address] [address] Calcium [Mass/Vol] 8.7 mg/dL Normal 8.4-10.2 [facility] ([place]) Comment on above: Performed By: #### Yoon SKINNER, CMP #### [address] [address] Chloride [Moles/Vol] 103 mmol/L Normal 98-107 [facility] ([place]) Comment on above: Performed By: #### Yoon SKINNER, CMP #### [address] [address] CO2 [Moles/Vol] 27 mmol/L Normal 23-31 [facility] ([place] Comment on above: Performed By: #### Yoon SKINNER, CMP #### [address] [address] Creatinine [Mass/Vol] 2.15 mg/dL High 0.70-1.30 [facility] ([place]) Comment on above: Performed By: #### Yoon SKINNER, CMP #### [address] [address] Electrolyte Balance 9.0 mEq/L Normal 4.0-15.0 [facility] ([place]) Comment on above: Performed By: #### G , CMP #### [address] [address] Globulin 3.5 G/dL Normal [facility] ([place] Comment on above: Performed By: #### Yoon SKINNER, CMP #### [address] [address] Glucose [Mass/Vol] 237 mg/dL High 83-110 [facility] ([place] Comment on above: Performed By: #### Yoon SKINNER, CMP #### [address] [address] Potassium [Moles/Vol] 4.6 mmol/L Normal 3.5-5.1 [facility] ([place]) Comment on above: Performed By: #### Yoon SKINNER, CMP #### [address] [address] Sodium [Moles/Vol] 139 mmol/L Normal 136-145 [facility] ([place] Comment on above: Performed By: #### Yoon SKINNER, CMP #### [address] [address] Total Protein 7.1 G/dL Normal 6.4-8.2 [facility] ([place] Comment on above: Performed By: #### Yoon SKINNER, CMP #### [address] [address] Urea nitrogen [Mass/Vol] 25 mg/dL High 7-18 [facility] ([place] Comment on above: Performed By: #### Yoon SKINNER, CMP #### [address] [address] LABORATORYOrdered By: SYSTEM SYSTEM on 06-23-2023 Albumin [...] Mixed growth consistent with normal urogenital fina. [facility] Work Phone: Basophil percentageOrdered B y: Rianna Barnhart on 04-20-2023 Basophil percentage 2.7 mg/dL 2.5-4.9 [facility] Chloride [Moles/Vol] 104 mmol/L 98-107 [facility] Glucose [Mass/Vol] 214 mg/dL 74-106 [facility] Comment on above: Glucose result great er than or equal to 200 mg/dLsuggests DIABETES MELLITUS per A.D.A. criteria. Potassium [Moles/Vol] 4.4 mmol/L 3.5-5.1 [facility] Sodium [Moles/Vol] 136 mmol/L 136-145 [facility] WBC (Bld) [#/Vol] 5.8 10*3/uL 4.4-11.0 [facility] Blood erythrocytes count (nu mber/volume)Ordered By: Rianna Barnhart on 04-20-2023 RBC (Bld) [#/Vol] 4.14 10*6/uL 4.6-6.2 [facility] Blood hemoglobin measurement (mass/volume)Ordered By: Rianna Barnhart on 04-20-2023 Hemoglobin (Bld) [Mass/Vol] 13.0 g/dL 13.0-16.5 [facility] Blood platelet mean volumeOr dered By: Rianna Barnhart on 04-20-2023 Platelet mean volume (Bld) [Entitic vol] 9.9 fL 6.2-12.0 [facility] Determination of erythrocyte mean corpuscular volume (MCV)Ordered By: Rianna Barnhart on 04-20-2023 MCV (RBC) [Entitic vol] 91.5 fL 80-[address] [facility] Hematocrit Auto (Bld) [Volum e fraction]Ordered By: Rianna Barnhart on 04-20-2023 Hematocrit (Bld) [Volume fraction] 37.9 % 40-54 [facility] Laboratory - Chemistry and C hemistry - challengeOrdered By: Rianna Barnhart on 04-20-2023 CO2 [Moles/Vol] 30.0 mmol/L 21.0-32.0 [facility] Urea nitrogen/Creatinine [Mass ratio] 11.7 mg/mg 10-20 [facility] Laboratory - Hematology and Cell countsOrdered By: Rianna Barnhart on 04-20-2023 Erythrocyte distribution width (RBC) [Entitic vol] 43.9 fL 35.1-43.9 [facility] Erythrocyte distribution width (RBC) [Ratio] 13.2 % 11.6-14.6 [facility] MCH (RBC) [Entitic mass] 31.4 pg 27.0-32.0 [facility] MCHC Auto (RBC) [Mass/Vol]Or dered By: Rianna Barnhart on 04-20-2023 MCHC (RBC) [Mass/Vol] 34.3 g/dL 32-36 [facility] No Panel InformationOrdered By: Rianna Barnhart on 04-20-2023 Estimated GFR (MDRD) Amer 37 mL/min >60 [facility] Comment on above: GFR Calc Estimated GFR (MDRD) Non-Af Amer 31 mL/min >60 [facility] Comment on above: Non- GFR Calc Parathyroid Hormone (Intact) 73.2 pg/mL 18.4-80.1 [facility] Vitamin D 25-Hydroxy 61.1 ng/mL [facility] Comment on above: Vitamin D 25(OH) Sta tus Range Deficiency <20 ng/mL (50nmol/L) Insufficiency 20 - 30 ng/mL (50 - 75 nmol/L) Sufficiency 30 - 100 ng/mL (75 - 250 nmol/L) Toxicity >100 ng/mL (>250 nmol/L) Platelets bldOrdered By: Jan Barnhart on 04-20-2023 Platelets (Bld) [#/Vol] 170 10*3/uL 150-450 [facility] Serum or plasma albumin acacia urement (mass/volume)Ordered By: Rianna Barnhart on 04-20-2023 Albumin [Mass/Vol] 3.2 g/dL 3.2-5.0 [facility] Serum or plasma calcium acacia urement (mass/volume)Ordered By: Rianna Barnhart on 04-20-2023 Calcium [Mass/Vol] 8.8 mg/dL 8.5-10.1 [facility] Serum or plasma creatinine m easurement (mass/volume)Ordered By: Rianna Barnhart on 04-20-2023 Creatinine [Mass/Vol] 2.22 mg/dL 0.70-1.30 [facility] Comment on above: The validity of the calculated GFR & GFRAA in patients over 70 years has not been determined. Clinical correlation is essential. Serum or plasma urea nitroge n measurement (mass/volume)Ordered By: Rianna Barnhart on 04-20-2023 Urea nitrogen [Mass/Vol] 26 mg/dL 7-18 [facility] Urine creatinine measurement (mass/volume)Ordered By: Rianna Barnhart on 04-20-2023 Creatinine (U) [Mass/Vol] 128.00 mg/dL NO RANGE EST. [facility] Urine protein measurement (m ass/volume)Ordered By: Rianna Barnhart on 04-20-2023 Protein (U) [Mass/Vol] 28.1 mg/dL 0.0-11.8 [facility] Urine protein/creatinine mas s ratioOrdered By: Rianna Barnhart on 04-20-2023 Protein/Creatinine (U) [Mass ratio] 220 mg/g CRE 0-200 [facility] Basophil percentageOrdered B y: Lexus Rivera on 04-10-2023 Bilirubin [Mass/Vol] 0.60 mg/dL 0.20-1.00 [facility] Comment on above: For patients on eltr ombopag therapy, use of Dimension [place] TBIL is not recommended. Chloride [Moles/Vol] 105 mmol/L 98-107 [facility] Cholesterol [Mass/Vol] 140 mg/dL <200 [facility] Comment on above: <200 mg/dL Desirable 200-240 mg/dL Borderline >240 mg/dL High Risk Glucose [Mass/Vol] 172 mg/dL 74-106 [facility] Comment on above: Fasting Glucose resu lt greater than or equal to 126 mg/dL suggests DIABETES MELLITUS per A.D.A. criteria. Potassium [Moles/Vol] 4.3 mmol/L 3.5-5.1 [facility] Protein [Mass/Vol] 6.8 g/dL 6.4-8.2 [facility] Sodium [Moles/Vol] 138 mmol/L 136-145 [facility] Triglyceride [Mass/Vol] 275 mg/dL <[address] [facility] Comment on above: The drugs N-Acetylcy steine and Metamizole may falsely depress this assay.Serum Triglycerides Reference Interval Normal <150 mg/dL Borderline high 150 - 199 mg/dL High 200 - 499 mg/dL Very High > or = 500 mg/dL WBC (Bld) [#/Vol] 5.1 10*3/uL 4.4-11.0 [facility] Blood erythrocytes count (nu mber/volume)Ordered By: Lexus Rivera on 04-10-2023 RBC (Bld) [#/Vol] 4.23 10*6/uL 4.6-6.2 [facility] Blood hemoglobin measurement (mass/volume)Ordered By: Lexus Rivera on 04-10-2023 Hemoglobin (Bld) [Mass/Vol] 12.9 g/dL 13.0-16.5 [facility] Blood platelet mean volumeOr dered By: Lexus Rivera on 04-10-2023 Platelet mean volume (Bld) [Entitic vol] 9.8 fL 6.2-12.0 [facility] Determination of erythrocyte mean corpuscular volume (MCV)Ordered By: Lexus Rivera on 04-10-2023 MCV (RBC) [Entitic vol] 92.9 fL 80-[address] [facility] Hematocrit Auto (Bld) [Volum e fraction]Ordered By: Lexus Rivera on 04-10-2023 Hematocrit (Bld) [Volume fraction] 39.3 % 40-54 [facility] Laboratory - Chemistry and C hemistry - challengeOrdered By: Lexus Rivera on 04-10-2023 ALP [Catalytic activity/Vol] 94 U/L 45-117 [facility] ALT [Catalytic activity/Vol] 32 U/L 16-61 [facility] CO2 [Moles/Vol] 29.0 mmol/L 21.0-32.0 [facility] Globulin (S) [Mass/Vol] 3.7 g/dL 2.2-4.[address] [facility] Urea nitrogen/Creatinine [Mass ratio] 13.7 mg/mg 10-20 [facility] Laboratory - Hematology and Cell countsOrdered By: Lexus Rivera on 04-10-2023 Erythrocyte distribution width (RBC) [Entitic vol] 45.3 fL 35.1-43.9 [facility] Erythrocyte distribution width (RBC) [Ratio] 13.3 % 11.6-14.6 [facility] MCH (RBC) [Entitic mass] 30.5 pg 27.0-32.0 [facility] MCHC Auto (RBC) [Mass/Vol]Or dered By: Lexus Rivera on 04-10-2023 MCHC (RBC) [Mass/Vol] 32.8 g/dL 32-36 [facility] No Panel InformationOrdered By: Lexus Rivera on 04-10-2023 Estimated GFR (MDRD) Amer 36 mL/min >60 [facility] Comment on above: GFR Calc Estimated GFR (MDRD) Non-Af Amer 30 mL/min >60 [facility] Comment on above: Non- GFR Calc Parathyroid Hormone (Intact) 38.9 pg/mL 18.4-80.1 [facility] Urine Microalbumin/Creatinine Ratio 76.0 mg/g CRE <30 [facility] Vitamin D 25-Hydroxy 60.0 ng/mL [facility] Comment on above: Vitamin D 25(OH) Sta tus Range Deficiency <20 ng/mL (50nmol/L) Insufficiency 20 - 30 ng/mL (50 - 75 nmol/L) Sufficiency 30 - 100 ng/mL (75 - 250 nmol/L) Toxicity >100 ng/mL (>250 nmol/L) Platelets bldOrdered By: Cecilio Rivera on 04-10-2023 Platelets (Bld) [#/Vol] 142 10*3/uL 150-450 [facility] Serum or plasma albumin acacia urement (mass/volume)Ordered By: Lexus Rivera on 04-10-2023 Albumin [Mass/Vol] 3.1 g/dL 3.2-5.0 [facility] Serum or plasma albumin/glob ulin mass ratioOrdered By: Lexus Rivera on 04-10-2023 Albumin/Globulin [Mass ratio] 0.8 {ratio} 0.9-2.4 [facility] Serum or plasma calcium acacia urement (mass/volume)Ordered By: Lexus Rivera on 04-10-2023 Calcium [Mass/Vol] 9.2 mg/dL 8.5-10.1 [facility] Serum or plasma cholesterol in HDL measurement (mass/volume)Ordered By: Lexus Rivera on 04-10-2023 Cholesterol in HDL [Mass/Vol] 45 mg/dL >40 [facility] Comment on above: The drugs N-Acetylcy steine and Metamizole may falsely depress this assay. Reference Range HDL <40 mg/dL Low HDL Cholesterol HDL >or= 60 mg/dL High HDL Cholesterol Serum or plasma cholesterol in VLDL measurement (mass/volume)Ordered By: Lexus Rivera on 04-10-2023 Cholesterol in VLDL [Mass/Vol] 55 mg/dL 5-40 [facility] Serum or plasma creatinine m easurement (mass/volume)Ordered By: Lexus Rivera on 04-10-2023 Creatinine [Mass/Vol] 2.27 mg/dL 0.70-1.30 [facility] Comment on above: The validity of the calculated GFR & GFRAA in patients over 70 years has not been determined. Clinical correlation is essential. Serum or plasma low density lipoprotein (LDL) cholesterol measurement (mass/volume)Ordered By: Lexsu Rivera on 04-10-2023 Cholesterol in LDL [Mass/Vol] 40 mg/dL 0-130 [facility] [facility] Serum or plasma urea nitroge n measurement (mass/volume)Ordered By: Lexus Rivera on 04-10-2023 Urea nitrogen [Mass/Vol] 31 mg/dL 7-18 [facility] Serum or plasma uric acid me asurement (mass/volume)Ordered By: Lexus Rivera on 04-10-2023 Urate [Mass/Vol] 6.7 mg/dL 3.5-7.2 [facility] Comment on above: The drugs N-Acetylcy steine and Metamizole may falsely depress this assay. Thin prep Papanicolaou smear with manual screeningOrdered By: Lexus Rivera on 04-10-2023 Thin prep Papanicolaou smear with manual screening 28 U/L 15-37 [facility] Thin prep Papanicolaou smear with manual screening 4 5-15 [facility] Thin prep Papanicolaou smear with manual screening 127.0 mg/L NO RANGE EST. [facility] Urine creatinine measurement (mass/volume)Ordered By: Lexus Rivera on 04-10-2023 Creatinine (U) [Mass/Vol] 167.00 mg/dL NO RANGE EST. [facility] Urine protein measurement (m ass/volume)Ordered By: Lexus Rivera on 04-10-2023 Protein (U) [Mass/Vol] 63.8 mg/dL 0.0-11.8 [facility] Urine protein/creatinine mas s ratioOrdered By: Lexus Rivera 04-10-2023 Protein/Creatinine (U) [Mass ratio] 382 mg/g CRE 0-200 [facility] Whole blood hemoglobin A1c/t otal hemoglobin ratio (mass fraction)Ordered By: Lexus Rivera on 04-10-2023 HbA1c (Bld) [Mass fraction] 7.3 % 3.8-5.6 [facility] Comment on above: Normal < 5.7 % Predi abetic 5.7 - 6.4 % Diabetic >or= 6.5 % Please note range changes. INR in Blood by Coagulation assayOrdered By: Zhang Quick on 04-02-2023 INR Coag (Bld) [Relative time] 2.4 {INR} [facility] Laboratory - CoagulationOrde red By: Zhang Quick on 04-02-2023 PT Coag (PPP) [Time] 26.0 s 11.7-14.9 [facility] INR in Blood by Coagulation assayOrdered By: Dr. Quick on 01-01-2023 INR Coag (Bld) [Relative time] 2.8 {INR} [facility] Laboratory - CoagulationOrde red By: Dr. Quick on 01-01-2023 PT Coag (PPP) [Time] 29.4 s 11.7-14.9 [facility] INR in Blood by Coagulation assayOrdered By: Dr. Quick on 12-18-2022 INR Coag (Bld) [Relative time] 1.8 {INR} [facility] Laboratory - CoagulationOrde red By: Dr. Quick on 12-18-2022 PT Coag (PPP) [Time] 20.6 s 11.7-14.9 [facility] INR in Blood by Coagulation assayOrdered By: Dr. Quick on 11-26-2022 INR Coag (Bld) [Relative time] 2.5 {INR} [facility] Laboratory - CoagulationOrde red By: Dr. Quick on 11-26-2022 PT Coag (PPP) [Time] 26.3 s 11.7-14.9 [facility] Basophil percentageOrdered B y: Dr. Quick on 10-09-2022 Bilirubin [Mass/Vol] 0.60 mg/dL 0.20-1.00 [facility] Comment on above: For patients on eltr ombopag therapy, use of Dimension [place] TBIL is not recommended. Chloride [Moles/Vol] 105 mmol/L 98-107 [facility] Cholesterol [Mass/Vol] 147 mg/dL <200 [facility] Comment on above: <200 mg/dL Desirable 200-240 mg/dL Borderline >240 mg/dL High Risk Glucose [Mass/Vol] 245 mg/dL 74-106 [facility] Comment on above: Glucose result great er than or equal to 200 mg/dLsuggests DIABETES MELLITUS per A.D.A. criteria. Potassium [Moles/Vol] 4.2 mmol/L 3.5-5.1 [facility] Protein [Mass/Vol] 7.1 g/dL 6.4-8.2 [facility] Sodium [Moles/Vol] 139 mmol/L 136-145 [facility] Triglyceride [Mass/Vol] 258 mg/dL <[address] [facility] Comment on above: The drugs N-Acetylcy steine and Metamizole may falsely depress this assay.Serum Triglycerides Reference Interval Normal <150 mg/dL Borderline high 150 - 199 mg/dL High 200 - 499 mg/dL Very High > or = 500 mg/dL WBC (Bld) [#/Vol] 8.0 10*3/uL 4.4-11.0 [facility] Blood erythrocytes count (nu mber/volume)Ordered By: Dr. Quick on 10-09-2022 RBC (Bld) [#/Vol] 4.41 10*6/uL 4.6-6.2 [facility] Blood hemoglobin measurement (mass/volume)Ordered By: Dr. Quick on 10-09-2022 Hemoglobin (Bld) [Mass/Vol] 13.9 g/dL 13.0-16.5 [facility] Blood platelet mean volumeOr dered By: Dr. Quick on 10-09-2022 Platelet mean volume (Bld) [Entitic vol] 10.1 fL 6.2-12.0 [facility] Determination of erythrocyte mean corpuscular volume (MCV)Ordered By: Dr. Quick on 10-09-2022 MCV (RBC) [Entitic vol] 93.0 fL 80-[address] [facility] Hematocrit Auto (Bld) [Volum e fraction]Ordered By: Dr. Quick on 10-09-2022 Hematocrit (Bld) [Volume fraction] 41.0 % 40-54 [facility] INR in Blood by Coagulation assayOrdered By: Dr. Quick on 10-09-2022 INR Coag (Bld) [Relative time] 2.9 {INR} [facility] Laboratory - Chemistry and C hemistry - challengeOrdered By: Dr. Quick on 10-09-2022 ALP [Catalytic activity/Vol] 96 U/L 45-117 [facility] ALT [Catalytic activity/Vol] 46 U/L 16-61 [facility] CO2 [Moles/Vol] 26.0 mmol/L 21.0-32.0 [facility] Globulin (S) [Mass/Vol] 3.9 g/dL 2.2-4.[address] [facility] Urea nitrogen/Creatinine [Mass ratio] 12.3 mg/mg 10-20 [facility] Laboratory - CoagulationOrde red By: Dr. Quick on 10-09-2022 PT Coag (PPP) [Time] 29.7 s 11.7-14.9 [facility] Laboratory - Hematology and Cell countsOrdered By: Dr. Quick on 10-09-2022 Erythrocyte distribution width (RBC) [Entitic vol] 45.2 fL 35.1-43.9 [facility] Erythrocyte distribution width (RBC) [Ratio] 13.2 % 11.6-14.6 [facility] MCH (RBC) [Entitic mass] 31.5 pg 27.0-32.0 [facility] MCHC Auto (RBC) [Mass/Vol]Or dered By: Dr. Quick on 10-09-2022 MCHC (RBC) [Mass/Vol] 33.9 g/dL 32-36 [facility] No Panel InformationOrdered By: Dr. Quick on 10-09-2022 Urine Microalbumin/Creatinine Ratio 42.5 mg/g CRE <30 [facility] Estimated GFR (MDRD) Amer 42 mL/min >60 [facility] Comment on above: GFR Calc Estimated GFR (MDRD) Non-Af Amer 34 mL/min >60 [facility] Comment on above: Non- GFR Calc Parathyroid Hormone (Intact) 89.6 pg/mL 18.4-80.1 [facility] Prostate Specific Antigen Screen 0.45 ng/mL 0.00-4.00 [facility] Comment on above: This test was perfor med using the TPSA assay method for [employer] chemistry system. Values obtained with differentassay methods cannot be used interchangably.When changing PSA assays in the course of monitoring apatient, additional sequential testing should be carriedout to confirm baseline values. Thyroid Stimulating Hormone (TSH) 0.83 uIU/mL 0.358-3.74 [facility] Vitamin D 25-Hydroxy 62.0 ng/mL [facility] Comment on above: Vitamin D 25(OH) Sta tus Range Deficiency <20 ng/mL (50nmol/L) Insufficiency 20 - 30 ng/mL (50 - 75 nmol/L) Sufficiency 30 - 100 ng/mL (75 - 250 nmol/L) Toxicity >100 ng/mL (>250 nmol/L) Platelets bldOrdered By: Dr. Quick on 10-09-2022 Platelets (Bld) [#/Vol] 151 10*3/uL 150-450 [facility] Serum or plasma albumin acacia urement (mass/volume)Ordered By: Dr. Quick on 10-09-2022 Albumin [Mass/Vol] 3.2 g/dL 3.2-5.0 [facility] Serum or plasma albumin/glob ulin mass ratioOrdered By: Dr. Quick on 10-09-2022 Albumin/Globulin [Mass ratio] 0.8 {ratio} 0.9-2.4 [facility] Serum or plasma calcium acacia urement (mass/volume)Ordered By: Dr. Quick on 10-09-2022 Calcium [Mass/Vol] 8.5 mg/dL 8.5-10.1 [facility] Serum or plasma cholesterol in HDL measurement (mass/volume)Ordered By: Dr. Quick on 10-09-2022 Cholesterol in HDL [Mass/Vol] 53 mg/dL >40 [facility] Comment on above: The drugs N-Acetylcy steine and Metamizole may falsely depress this assay. Reference Range HDL <40 mg/dL Low HDL Cholesterol HDL >or= 60 mg/dL High HDL Cholesterol Serum or plasma cholesterol in VLDL measurement (mass/volume)Ordered By: Dr. Quick on 10-09-2022 Cholesterol in VLDL [Mass/Vol] 52 mg/dL 5-40 [facility] Serum or plasma creatinine m easurement (mass/volume)Ordered By: Dr. Quick on 10-09-2022 Creatinine [Mass/Vol] 2.03 mg/dL 0.70-1.30 [facility] Comment on above: The validity of the calculated GFR & GFRAA in patients over 70 years has not been determined. Clinical correlation is essential. Serum or plasma low density lipoprotein (LDL) cholesterol measurement (mass/volume)Ordered By: Dr. Quick on 10-09-2022 Cholesterol in LDL [Mass/Vol] 42 mg/dL 0-130 [facility] Serum or plasma urea nitroge n measurement (mass/volume)Ordered By: Dr. Quick on 10-09-2022 Urea nitrogen [Mass/Vol] 25 mg/dL 7-18 [facility] Thin prep Papanicolaou smear with manual screeningOrdered By: Dr. Quick on 10-09-2022 Thin prep Papanicolaou smear with manual screening 59.5 mg/L NO RANGE EST. [facility] Thin prep Papanicolaou smear with manual screening 30 U/L 15-37 [facility] Thin prep Papanicolaou smear with manual screening 8 5-15 [facility] Urine creatinine measurement (mass/volume)Ordered By: Dr. Quick on 10-09-2022 Creatinine (U) [Mass/Vol] 140.00 mg/dL NO RANGE EST. [facility] Whole blood hemoglobin A1c/t otal hemoglobin ratio (mass fraction)Ordered By: Dr. Quick on 10-09-2022 HbA1c (Bld) [Mass fraction] 7.5 % 3.8-5.6 [facility] Comment on above: Normal < 5.7 % Predi abetic 5.7 - 6.4 % Diabetic >or= 6.5 % Please note range changes. Absolute lymphocyte countOrd ered By: Dr. Ozuna on 09-15-2022 Lymphocytes Auto (Unsp spec) [#/Vol] 1.63 10*3/uL 0.83-4.51 [facility] Basophil percentageOrdered B y: Dr. Ozuna on 09-15-2022 Basophil percentage 0 SEEN /hpf 0-5 [facility] Basophils/100 WBC (Bld) 0.1 % 0-[address] [facility] Bilirubin [Mass/Vol] 1.30 mg/dL 0.20-1.00 [facility] Comment on above: For patients on eltr ombopag therapy, use of Dimension [place] TBIL is not recommended. Chloride [Moles/Vol] 103 mmol/L 98-107 [facility] Eosinophils/100 WBC (Bld) 0.0 % 0-5 [facility] Glucose [Mass/Vol] 191 mg/dL 74-106 [facility] Comment on above: Fasting Glucose resu lt greater than or equal to 126 mg/dL suggests DIABETES MELLITUS per A.D.A. criteria. Neutrophils (Bld) [#/Vol] 4.4 10*3/uL 2.0-7.7 [facility] Neutrophils/100 WBC (Bld) 65.5 % 47-70 [facility] Potassium [Moles/Vol] 3.8 mmol/L 3.5-5.1 [facility] Protein [Mass/Vol] 8.1 g/dL 6.4-8.2 [facility] Sodium [Moles/Vol] 136 mmol/L 136-145 [facility] WBC (Bld) [#/Vol] 6.8 10*3/uL 4.4-11.0 [facility] Bilirubin Test strip Ql (U)O rdered By: Dr. Ozuna on 09-15-2022 Bilirubin Ql (U) Negative Negative [facility] Blood erythrocytes count (nu mber/volume)Ordered By: Dr. zOuna on 09-15-2022 RBC (Bld) [#/Vol] 5.03 10*6/uL 4.6-6.2 [facility] Blood hemoglobin measurement (mass/volume)Ordered By: Dr. Ozuna on 09-15-2022 Hemoglobin (Bld) [Mass/Vol] 15.8 g/dL 13.0-16.5 [facility] Blood lymphocytes/100 leukoc ytesOrdered By: Dr. Ozuna on 09-15-2022 Lymphocytes/100 WBC (Bld) 24.1 % 19-41 [facility] Blood monocytes/100 leukocyt esOrdered By: Dr. Ozuna on 09-15-2022 Monocytes/100 WBC (Bld) 9.9 % 0-[address] [facility] Blood platelet mean volumeOr dered By: Dr. Ozuna on 09-15-2022 Platelet mean volume (Bld) [Entitic vol] 9.6 fL 6.2-12.0 [facility] Determination of erythrocyte mean corpuscular volume (MCV)Ordered By: Dr. Ozuna on 09-15-2022 MCV (RBC) [Entitic vol] 91.7 fL 80-[address] [facility] Hematocrit Auto (Bld) [Volum e fraction]Ordered By: Dr. Ozuna on 09-15-2022 Hematocrit (Bld) [Volume fraction] 46.1 % 40-54 [facility] INR in Blood by Coagulation assayOrdered By: Dr. Ozuna on 09-15-2022 INR Coag (Bld) [Relative time] 1.4 {INR} [facility] Ketones Test strip Ql (U)Ord ered By: Dr. Ozuna on 09-15-2022 Ketones Ql (U) 15 mg/dl Negative [facility] Laboratory - Chemistry and C hemistry - challengeOrdered By: Dr. Ozuna on 09-15-2022 ALP [Catalytic activity/Vol] 110 U/L 45-117 [facility] ALT [Catalytic activity/Vol] 82 U/L 16-61 [facility] CO2 [Moles/Vol] 25.0 mmol/L 21.0-32.0 [facility] Globulin (S) [Mass/Vol] 4.3 g/dL 2.2-4.[address] [facility] Lipase [Catalytic activity/Vol] 171 U/L 73-393 [facility] Urea nitrogen/Creatinine [Mass ratio] 18.5 mg/mg 10-20 [facility] Laboratory - CoagulationOrde red By: Dr. Ozuna on 09-15-2022 PT Coag (PPP) [Time] 16.8 s 11.7-14.9 [facility] Laboratory - Hematology and Cell countsOrdered By: Dr. Ozuna on 09-15-2022 Erythrocyte distribution width (RBC) [Entitic vol] 44.2 fL 35.1-43.9 [facility] Erythrocyte distribution width (RBC) [Ratio] 13.1 % 11.6-14.6 [facility] Immature granulocytes/100 WBC (Bld) 0.400 % 0.0-0.9 [facility] Comment on above: IG% - Immature Granu locytes (promyelocytes, myelocytes and metamyelocytes) > 1% indicates that a LEFT SHIFT is Present. MCH (RBC) [Entitic mass] 31.4 pg 27.0-32.0 [facility] Nucleated RBC/100 WBC (Bld) [Ratio] 0 % 0-5 [facility] MCHC Auto (RBC) [Mass/Vol]Or dered By: Dr. Ozuna on 09-15-2022 MCHC (RBC) [Mass/Vol] 34.3 g/dL 32-36 [facility] Mucus LM Ql (Urine sed)Order ed By: Dr. Ozuna on 09-15-2022 Mucus Ql (Urine sed) 1+ /hpf [facility] Nitrite Test strip Ql (U)Ord ered By: Dr. Ozuna on 09-15-2022 Nitrite Ql (U) Negative Negative [facility] No Panel InformationOrdered By: Dr. Ozuna on 09-15-2022 Estimated Creatinine Clearance Calc 29.15 ml/min [facility] Estimated GFR (MDRD) Amer 40 mL/min >60 [facility] Comment on above: GFR Calc Estimated GFR (MDRD) Non-Af Amer 33 mL/min >60 [facility] Comment on above: Non- GFR Calc Platelets bldOrdered By: Dr. Ozuna on 09-15-2022 Platelets (Bld) [#/Vol] 180 10*3/uL 150-450 [facility] Protein Test strip Ql (U)Ord ered By: Dr. Ozuna on 09-15-2022 Protein Ql (U) 100 mg/dl Negative [facility] Serum or plasma albumin acacia urement (mass/volume)Ordered By: Dr. Ozuna on 09-15-2022 Albumin [Mass/Vol] 3.8 g/dL 3.2-5.0 [facility] Serum or plasma albumin/glob ulin mass ratioOrdered By: Dr. Ozuna on 09-15-2022 Albumin/Globulin [Mass ratio] 0.9 {ratio} 0.9-2.4 [facility] Serum or plasma calcium acacia urement (mass/volume)Ordered By: Dr. Ozuna on 09-15-2022 Calcium [Mass/Vol] 9.1 mg/dL 8.5-10.1 [facility] Serum or plasma creatinine m easurement (mass/volume)Ordered By: Dr. Ozuna on 09-15-2022 Creatinine [Mass/Vol] 2.11 mg/dL 0.70-1.30 [facility] Comment on above: The validity of the calculated GFR & GFRAA in patients over 70 years has not been determined. Clinical correlation is essential. Serum or plasma urea nitroge n measurement (mass/volume)Ordered By: Dr. Ozuna on 09-15-2022 Urea nitrogen [Mass/Vol] 39 mg/dL 7-18 [facility] Squamous epithelial cells de tection in urine sediment by light microscopyOrdered By: Dr. Ozuna on 09-15-2022 Epithelial cells.squamous LM Ql (Urine sed) 0-5 SEEN /hpf 0-5 [facility] Thin prep Papanicolaou smear with manual screeningOrdered By: Dr. Ozuna on 09-15-2022 Thin prep Papanicolaou smear with manual screening 74 U/L 15-37 [facility] Thin prep Papanicolaou smear with manual screening 8 5-15 [facility] Urine blood detectionOrdered By: Dr. Ozuna on 09-15-2022 RBC Ql (U) 150 /ul Negative [facility] RBC Ql (U) 0-5 SEEN /hpf 0-5 [facility] Urine clarityOrdered By: Dr. Ozuna on 09-15-2022 Clarity (U) Clear Clear [facility] Urine color determinationOrd ered By: Dr. Ozuna on 09-15-2022 Color (U) Yellow Yellow [facility] Urine glucose detectionOrder ed By: Dr. Ozuna on 09-15-2022 Glucose Ql (U) 1000 mg/dl Normal [facility] Urine leukocyte esterase det ection by dipstickOrdered By: Dr. Ozuna on 09-15-2022 Leukocyte esterase Test strip Ql (U) Negative Negative [facility] Urine pHOrdered By: Dr. Chaim jiménez on 09-15-2022 pH (U) 5.0 [pH] 5.0 - 8.0 [facility] Urine sediment bacteria coun t by microscopy (number/high power field)Ordered By: Dr. Ozuna on 09-15-2022 Bacteria LM.HPF (Urine sed) [#/Area] 0 /[HPF] None Seen [facility] Urine specific gravity measu rementOrdered By: Dr. Ozuna on 09-15-2022 Specific gravity (U) [Rel density] 1.025 1.002-1.030 [facility] Urobilinogen Auto test strip Ql (U)Ordered By: Dr. Ozuna on 09-15-2022 Urobilinogen Ql (U) Normal mg/dl Normal [facility] Absolute lymphocyte countOrd ered By: Jolynn Davenport on 07-09-2022 Lymphocytes Auto (Unsp spec) [#/Vol] 2.11 10*3/uL 0.83-4.51 [facility] Basophil percentageOrdered B y: Jolynn Davenport on 07-09-2022 Basophils/100 WBC (Bld) 0.4 % 0-1 [facility] Chloride [Moles/Vol] 106 mmol/L 98-107 [facility] Eosinophils/100 WBC (Bld) 4.8 % 0-5 [facility] Glucose [Mass/Vol] 219 mg/dL 74-106 [facility] Comment on above: Glucose result great er than or equal to 200 mg/dLsuggests DIABETES MELLITUS per A.D.A. criteria. Neutrophils (Bld) [#/Vol] 4.0 10*3/uL 2.0-7.7 [facility] Neutrophils/100 WBC (Bld) 56.4 % 47-70 [facility] Potassium [Moles/Vol] 4.5 mmol/L 3.5-5.1 [facility] Sodium [Moles/Vol] 137 mmol/L 136-145 [facility] WBC (Bld) [#/Vol] 7.1 10*3/uL 4.4-11.0 [facility] Blood erythrocytes count (nu mber/volume)Ordered By: Jolynn Davenport on 07-09-2022 RBC (Bld) [#/Vol] 4.29 10*6/uL 4.6-6.2 [facility] Blood hemoglobin measurement (mass/volume)Ordered By: Jolynn Davenport on 07-09-2022 Hemoglobin (Bld) [Mass/Vol] 13.6 g/dL 13.0-16.5 [facility] Blood lymphocytes/100 leukoc ytesOrdered By: Jolynn Davenport on 07-09-2022 Lymphocytes/100 WBC (Bld) 29.7 % 19-41 [facility] Blood monocytes/100 leukocyt esOrdered By: Jolynn Davenport on 07-09-2022 Monocytes/100 WBC (Bld) 8.4 % 0-[address] [facility] Blood platelet mean volumeOr dered By: Jolynn Davenport on 07-09-2022 Platelet mean volume (Bld) [Entitic vol] 10.1 fL 6.2-12.0 [facility] Determination of erythrocyte mean corpuscular volume (MCV)Ordered By: Jolynn Davenport on 07-09-2022 MCV (RBC) [Entitic vol] 94.6 fL 80-[address] [facility] Hematocrit Auto (Bld) [Volum e fraction]Ordered By: Jolynn Davenport on 07-09-2022 Hematocrit (Bld) [Volume fraction] 40.6 % 40-54 [facility] Laboratory - Chemistry and C hemistry - challengeOrdered By: Jolynn Davenport on 07-09-2022 CO2 [Moles/Vol] 26.0 mmol/L 21.0-32.0 [facility] Natriuretic peptide B (Bld) [Mass/Vol] 40.7 pg/mL 0-100 [facility] Urea nitrogen/Creatinine [Mass ratio] 14.2 mg/mg 10-20 [facility] Laboratory - Hematology and Cell countsOrdered By: Jolynn Davenport on 07-09-2022 Erythrocyte distribution width (RBC) [Entitic vol] 46.5 fL 35.1-43.9 [facility] Erythrocyte distribution width (RBC) [Ratio] 13.3 % 11.6-14.6 [facility] Immature granulocytes/100 WBC (Bld) 0.300 % 0.0-0.9 [facility] Comment on above: IG% - Immature Granu locytes (promyelocytes, myelocytes and metamyelocytes) > 1% indicates that a LEFT SHIFT is Present. MCH (RBC) [Entitic mass] 31.7 pg 27.0-32.0 [facility] Nucleated RBC/100 WBC (Bld) [Ratio] 0 % 0-5 [facility] MCHC Auto (RBC) [Mass/Vol]Or dered By: Jolynn Davenport on 07-09-2022 MCHC (RBC) [Mass/Vol] 33.5 g/dL 32-36 [facility] No Panel InformationOrdered By: Jolynn Davenport on 07-09-2022 Estimated GFR (MDRD) Amer 36 mL/min >60 [facility] Comment on above: GFR Calc Estimated GFR (MDRD) Non-Af Amer 29 mL/min >60 [facility] [facility] Comment on above: Non- GFR Calc Platelets bldOrdered By: Art Davenport on 07-09-2022 Platelets (Bld) [#/Vol] 186 10*3/uL 150-450 [facility] Serum or plasma calcium acacia urement (mass/volume)Ordered By: Jolynn Davenport on 07-09-2022 Calcium [Mass/Vol] 8.7 mg/dL 8.5-10.1 [facility] Serum or plasma creatinine m easurement (mass/volume)Ordered By: Jolynn Davenport on 07-09-2022 Creatinine [Mass/Vol] 2.32 mg/dL 0.70-1.30 [facility] Comment on above: The validity of the calculated GFR & GFRAA in patients over 70 years has not been determined. Clinical correlation is essential. Serum or plasma urea nitroge n measurement (mass/volume)Ordered By: Jolynn Davenport on 07-09-2022 Urea nitrogen [Mass/Vol] 33 mg/dL 7-18 [facility] Thin prep Papanicolaou smear with manual screeningOrdered By: Jolynn Davenport on 07-09-2022 Thin prep Papanicolaou smear with manual screening 5 5-15 [facility] INR in Blood by Coagulation assayOrdered By: Dr. Quick on 06-25-2022 INR Coag (Bld) [Relative time] 2.9 {INR} [facility] Laboratory - CoagulationOrde red By: Dr. Quick on 06-25-2022 PT Coag (PPP) [Time] 30.0 s 11.7-14.9 [facility] Basophil percentageon 2021 Basophil percentage 2.9 mg/dL 2.5-4.9 [facility] Work Phone: Chloride [Moles/Vol] 106 mmol/L 98-107 [facility] Work Phone: Glucose [Mass/Vol] 213 mg/dL 74-106 [facility] Work Phone: Comment on above: Glucose result great er than or equal to 200 mg/dLsuggests DIABETES MELLITUS per A.D.A. criteria. Potassium [Moles/Vol] 4.3 mmol/L 3.5-5.1 [facility] Work Phone: Sodium [Moles/Vol] 138 mmol/L 136-145 [facility] Work Phone: WBC (Bld) [#/Vol] 6.4 10*3/uL 4.4-11.0 [facility] Work Phone: Blood erythrocytes count (nu mber/volume)on 04-11-2022 RBC (Bld) [#/Vol] 4.46 10*6/uL 4.6-6.2 [facility] Work Phone: Blood hemoglobin measurement (mass/volume)on 04-11-2022 Hemoglobin (Bld) [Mass/Vol] 13.8 g/dL 13.0-16.5 [facility] Work Phone: Blood platelet mean volumeon 04-11-2022 Platelet mean volume (Bld) [Entitic vol] 10.5 fL 6.2-12.0 [facility] Work Phone: Determination of erythrocyte mean corpuscular volume (MCV)on 04-11-2022 MCV (RBC) [Entitic vol] 94.6 fL 80-[address] [facility] Work Phone: Hematocrit Auto (Bld) [Volum e fraction]on 04-11-2022 Hematocrit (Bld) [Volume fraction] 42.2 % 40-54 [facility] Work Phone: INR in Blood by Coagulation assayon 04-11-2022 INR Coag (Bld) [Relative time] 2.5 {INR} [facility] Work Phone: Laboratory - Chemistry and C hemistry - challengeon 04-11-2022 CO2 [Moles/Vol] 28.0 mmol/L 21.0-32.0 [facility] Work Phone: Urea nitrogen/Creatinine [Mass ratio] 13.1 mg/mg 10-20 [facility] Work Phone: Laboratory - Coagulationon 0 04-11-2022 PT Coag (PPP) [Time] 26.3 s 11.7-14.9 [facility] Work Phone: Laboratory - Hematology and Cell countson 04-11-2022 Erythrocyte distribution width (RBC) [Entitic vol] 47.9 fL 35.1-43.9 [facility] Work Phone: Erythrocyte distribution width (RBC) [Ratio] 13.8 % 11.6-14.6 [facility] Work Phone: MCH (RBC) [Entitic mass] 30.9 pg 27.0-32.0 [facility] Work Phone: MCHC Auto (RBC) [Mass/Vol]on 04-11-2022 MCHC (RBC) [Mass/Vol] 32.7 g/dL 32-36 [facility] Work Phone: No Panel Informationon 04-11 Estimated GFR (MDRD) Amer 39 mL/min >60 [facility] Work Phone: Comment on above: GFR Calc Estimated GFR (MDRD) Non-Af Amer 32 mL/min >60 [facility] Work Phone: Comment on above: Non- GFR Calc Parathyroid Hormone (Intact) 123.5 pg/mL 18.4-80.1 [facility] Work Phone: Vitamin D 25-Hydroxy 60.1 ng/mL [facility] Work Phone: Comment on above: Vitamin D 25(OH) Sta tus Range Deficiency <20 ng/mL (50nmol/L) Insufficiency 20 - 30 ng/mL (50 - 75 nmol/L) Sufficiency 30 - 100 ng/mL (75 - 250 nmol/L) Toxicity >100 ng/mL (>250 nmol/L) Platelets bldon 04-11-2022 Platelets (Bld) [#/Vol] 164 10*3/uL 150-450 [facility] Work Phone: Serum or plasma albumin acacia urement (mass/volume)on 04-11-2022 Albumin [Mass/Vol] 3.4 g/dL 3.2-5.0 [facility] Work Phone: Serum or plasma calcium acacia urement (mass/volume)on 04-11-2022 Calcium [Mass/Vol] 8.5 mg/dL 8.5-10.1 [facility] Work Phone: Serum or plasma creatinine m easurement (mass/volume)on 04-11-2022 Creatinine [Mass/Vol] 2.14 mg/dL 0.70-1.30 [facility] Work Phone: Comment on above: The validity of the calculated GFR & GFRAA in patients over 70 years has not been determined. Clinical correlation is essential. Serum or plasma urea nitroge n measurement (mass/volume)on 04-11-2022 Urea nitrogen [Mass/Vol] 28 mg/dL 7-18 [facility] Work Phone: Urine creatinine measurement (mass/volume)on 04-11-2022 Creatinine (U) [Mass/Vol] 234.00 mg/dL NO RANGE EST. [facility] Work Phone: Urine protein measurement (m ass/volume)on 04-11-2022 Protein (U) [Mass/Vol] 36.4 mg/dL 0.0-11.8 [facility] Work Phone: Urine protein/creatinine mas s ratioon 04-11-2022 Protein/Creatinine (U) [Mass ratio] 156 mg/g CRE 0-200 [facility] Work Phone: INR in Blood by Coagulation assayon 02-26-2022 INR Coag (Bld) [Relative time] 2.1 {INR} [facility] Work Phone: Laboratory - Coagulationon 0 02-26-2022 PT Coag (PPP) [Time] 22.8 s 11.7-14.9 [facility] Work Phone: INR in Blood by Coagulation assayon 01-24-2022 INR Coag (Bld) [Relative time] 2.9 {INR} [facility] Work Phone: [phone] Laboratory - Coagulationon 0 01-24-2022 PT Coag (PPP) [Time] 30.0 s 11.7-14.9 [facility] Work Phone: [phone] INR in Blood by Coagulation assayon 12-26-2021 INR Coag (Bld) [Relative time] 2.5 {INR} [facility] Work Phone: [phone] Laboratory - Coagulationon 0 12-26-2021 PT Coag (PPP) [Time] 27.0 s 11.7-14.9 [facility] Work Phone: INR in Blood by Coagulation assayon 12-11-2021 INR Coag (Bld) [Relative time] 2.1 {INR} [facility] Work Phone: [phone] Laboratory - Coagulationon 0 12-11-2021 PT Coag (PPP) [Time] 23.0 s 11.7-14.9 [facility] Work Phone: [phone] INR in Blood by Coagulation assayon 12-04-2021 INR Coag (Bld) [Relative time] 1.7 {INR} [facility] Work Phone: Laboratory - Coagulationon 0 12-04-2021 PT Coag (PPP) [Time] 18.8 s 11.7-14.9 [facility] Work Phone: Basophil percentageon 2021 Basophil percentage 3.6 mg/dL 2.5-4.9 [facility] Work Phone: Bilirubin [Mass/Vol] 0.50 mg/dL 0.20-1.00 [facility] Work Phone: Comment on above: For patients on eltr ombopag therapy, use of Dimension [place] TBIL is not recommended. Chloride [Moles/Vol] 105 mmol/L 98-107 [facility] Work Phone: Glucose [Mass/Vol] 247 mg/dL 74-106 [facility] Work Phone: Comment on above: Glucose result great er than or equal to 200 mg/dLsuggests DIABETES MELLITUS per A.D.A. criteria. Potassium [Moles/Vol] 4.2 mmol/L 3.5-5.1 [facility] Work Phone: Protein [Mass/Vol] 7.4 g/dL 6.4-8.2 [facility] Work Phone: Sodium [Moles/Vol] 137 mmol/L 136-145 [facility] Work Phone: WBC (Bld) [#/Vol] 7.8 10*3/uL 4.4-11.0 [facility] Work Phone: Blood erythrocytes count (nu mber/volume)on 10-21-2021 RBC (Bld) [#/Vol] 4.24 10*6/uL 4.6-6.2 [facility] Work Phone: Blood hemoglobin measurement (mass/volume)on 10-21-2021 Hemoglobin (Bld) [Mass/Vol] 13.6 g/dL 13.0-16.5 [facility] Work Phone: Blood platelet mean volumeon 10-21-2021 Platelet mean volume (Bld) [Entitic vol] 10.4 fL 6.2-12.0 [facility] Work Phone: Determination of erythrocyte mean corpuscular volume (MCV)on 10-21-2021 MCV (RBC) [Entitic vol] 93.6 fL 80-[address] [facility] Work Phone: Direct bilirubinon 2 Bilirubin.direct [Mass/Vol] 0.16 mg/dL 0.00-0.30 [facility] Work Phone: Hematocrit Auto (Bld) [Volum e fraction]on 10-21-2021 Hematocrit (Bld) [Volume fraction] 39.7 % 40-54 [facility] Work Phone: Laboratory - Chemistry and C hemistry - challengeon 10-21-2021 ALP [Catalytic activity/Vol] 98 U/L 45-117 [facility] Work Phone: ALT [Catalytic activity/Vol] 43 U/L 16-61 [facility] Work Phone: CO2 [Moles/Vol] 26.0 mmol/L 21.0-32.0 [facility] Work Phone: Globulin (S) [Mass/Vol] 4.0 g/dL 2.2-4.2 [facility] Work Phone: Urea nitrogen/Creatinine [Mass ratio] 12.3 mg/mg 10-20 [facility] Work Phone: Laboratory - Hematology and Cell countson 10-21-2021 Erythrocyte distribution width (RBC) [Entitic vol] 47.8 fL 35.1-43.9 [facility] Work Phone: Erythrocyte distribution width (RBC) [Ratio] 14.3 % 11.6-14.6 [facility] Work Phone: MCH (RBC) [Entitic mass] 32.1 pg 27.0-32.0 [facility] Work Phone: MCHC Auto (RBC) [Mass/Vol]on 10-21-2021 MCHC (RBC) [Mass/Vol] 34.3 g/dL 32-36 [facility] Work Phone: No Panel Informationon 10-21 Estimated GFR (MDRD) Amer 38 mL/min >60 [facility] Work Phone: Comment on above: GFR Calc Estimated GFR (MDRD) Non-Af Amer 31 mL/min >60 [facility] Work Phone: Comment on above: Non- GFR Calc Hepatitis C Antibody Non-Reactive Nonreactive [facility] Work Phone: Comment on above: Non Reactive: < 0.8 Equivocal: >/= 0.8 to < 1.0 Reactive: >/= 1.0The [facility] recommends that a reactive/equivocal HCV antibody result be followed up by the HCV Nucleic Acid Amplificationtest ([id number]) Prostate Specific Antigen Screen 0.34 ng/mL 0.00-4.00 [facility] Work Phone: Comment on above: This test was perfor med using the TPSA assay method for the[employer] chemistry system. Values obtained with differentassay methods cannot be used interchangably.When changing PSA assays in the course of monitoring apatient, additional sequential testing should be carriedout to confirm baseline values. Thyroid Stimulating Hormone (TSH) 2.07 uIU/mL 0.358-3.74 [facility] Work Phone: Platelets bldon 10-21-2021 Platelets (Bld) [#/Vol] 176 10*3/uL 150-450 [facility] Work Phone: Serum or plasma albumin acacia urement (mass/volume)on 10-21-2021 Albumin [Mass/Vol] 3.4 g/dL 3.2-5.0 [facility] Work Phone: Serum or plasma calcium acacia urement (mass/volume)on 10-21-2021 Calcium [Mass/Vol] 8.5 mg/dL 8.5-10.1 [facility] Work Phone: Serum or plasma creatinine m easurement (mass/volume)on 10-21-2021 Creatinine [Mass/Vol] 2.20 mg/dL 0.70-1.30 [facility] Work Phone: Comment on above: The validity of the calculated GFR & GFRAA in patients over 70 years has not been determined. Clinical correlation is essential. Serum or plasma urea nitroge n measurement (mass/volume)on 10-21-2021 Urea nitrogen [Mass/Vol] 27 mg/dL 7-18 [facility] Work Phone: Thin prep Papanicolaou smear with manual screeningon 10-21-2021 Thin prep Papanicolaou smear with manual screening 28 U/L 15-37 [facility] Work Phone: Thin prep Papanicolaou smear with manual screening 6 5-15 [facility] Work Phone: Thin prep Papanicolaou smear with manual screening 69.7 mg/L NO RANGE EST. [facility] Work Phone: CNOVon 11-26-2020 CNOV Office Visit (GENSWS ) -------- TYRELL REYES ([id number]) 1950 Date Time Provider Department 11/26/20 3:20 [...] Diabetic neuropathy (HCC) - DM (diabetes mellitus) ([facility]) - Dysphagia - Folliculitis - Hypertensive disorder - Intermittent claudication (HCC) - PAD (peripheral artery disease) ([facility]) - Transient cerebral ischemia PAST SURGICAL [...] Patti Luciano MD Referring Provider: BRANDEN SHANNON [[id number]] Allergies As of Date: 11/26/2020 (No Known [...] SUBLINGU* Dissolv (more content not included)... Normal [facility] CNOVon 10-29-2020 CNOV Office Visit (GENSWS ) -------- TYRELL REYES ([id number]) 1950 M Date Time Provider Department 10/29/20 9:30 AM PATTI LUCIANO During your visit today, we recorded the following information about you: Temperature Pulse Blood pressure Weight 97.3 degrees 85/minute 130/78 91.2 kg Patti Luciano MD 10/31/2020 8:47 AM Signed FOLLOW UP VISIT - CHOLECYSTECTOMY ? NAME: Tyrell Reyes CLINIC NO.: [id number] DATE OF SERVICE: 10/29/2020 ? : 1950 [...] Status:Closed by MD PATTI LUCIANO on 10/31/20 [facility] CNOVon 10-22-2020 CNOV Office Visit (SWS ) -------- TYRELL REYES ([id number]) 1950 [place] Date Time Provider Department 10/22/20 9:30 AM PATTI LUCIANO During your visit today, we recorded the following information about you: Patti Luciano MD 10/27/2020 11:53 AM Signed FOLLOW UP VISIT - CHOLECYSTECTOMY NAME: Tyrell Reyes CLINIC NO.: [id number] DATE OF SERVICE: 10/22/2020 : 1950 REFERRING [...] Status:Closed by MD PATTI LUCIANO on 10/27/20 [facility] TYRELL REYES ([id number]) 1950 M Date Time Provider Department 10/22/20 [...] as he remains symptom free. Sharda Christensen SECURITY NURSE 10/22/2020 12:38 PM Signed Patient notified ok [...] OBSTRUCTION [N32.0] 02/09/2008 PAD (peripheral artery disease) ([facility]) [I73.9] 06/03/2016 Encounter Status:Closed by SHARDA CHRISTENSEN LPN on 10/22/20 Normal [facility] CBCon 09-21-2018 Erythrocyte distribution width Ratio (RBC) 13.5 % Normal 11-14.5 [facility] Comment on above: Order Comment: Teodorou s: M Performed By: #### L [id number] #### [facility] [address] [place] [address] Hematocrit Volume Fraction (Bld) 35.9 % Low 41.0-53.0 [facility] Comment on above: Order Comment: Campu s: M Performed By: #### L 200.84802 #### [facility] [address] [place] [address] Hemoglobin mass conc (Bld) 11.8 g/dL Low 13.5-17.5 [facility] Comment on above: Order Comment: Campu s: M Performed By: #### L 200.82328 #### [facility] [address] [place], [place] [id number] MCHC mass conc (RBC) 32.9 g/dL Normal 32.0-36.0 [facility] Comment on above: Order Comment: Campu s: M Performed By: #### L 200.99932 #### [facility] [address] [place], [place] [id number] MCV Entitic volume (RBC) 91.8 fL Normal 80.0-99.0 [facility] Comment on above: Order Comment: Campu s: M Performed By: #### L 200.43717 #### [facility] [address] [place] [address] Nucleated RBC/100 WBC Ratio (Bld) 0.0 % Normal Less than 1 [facility] Comment on above: Order Comment: Campu s: M Performed By: #### L 200.60226 #### [facility] [address] [place] [address] Platelet mean volume Entitic volume (Bld) 10.0 fL Normal 9.4-12.4 [facility] Comment on above: Order Comment: Campu s: M Performed By: #### L 200.47454 #### [facility] [address] [place] [address] Platelets #/vol (Bld) 220 K/CU MM Normal 150-450 [facility] Comment on above: Order Comment: Campu s: M Performed By: #### L 200.34380 #### [facility] [address] [place] [address] RBC #/vol (Bld) 3.91 M/CU MM Low 4.50-6.00 [facility] Comment on above: Order Comment: Campu s: M Performed By: #### L 200.77396 #### [facility] [address] [place] [address] WBC #/vol (Bld) 6.1 K/CUMM Normal 4.5-11.0 [facility] Comment on above: Order Comment: Campu s: M Performed By: #### L 200.34047 #### [facility] [address] [place] [address] GFR ESTon 09-21-2018 IF AMER 41 ML/MIN Normal [facility] Comment on above: Order Comment: Campu s: M Performed By: #### L 500.73061, L500.48157 #### [facility] [address] [place] [address] IF non-AFR AMER 33 ML/MIN Normal [facility] Comment on above: Order Comment: Meera hernadez: [place] Performed By: #### L 500.14476, L500.17782 #### [facility] [address] [place] [address] ORon 09-21-2018 OPERATIVE REPORT Normal [facility] OR DATE OF SERVICE: 09/21/2018 PREOPERATIVE [...] put a glidewire up and then a 6-Slovenian sheath. We gave 5000 units of heparin. [...] glidewire. We then brought in a long 6-Slovenian sheath, watching carefully as it went through [...] a more complete record. Derrick Nelson MD [facility] PATIENT NAME: TYRELL REYES DaleMello Kenzie Mohr MEDICAL REC #: [id number] [place] [address] ADMIT DATE: DISCHARGE DATE: OPERATIVE REPORT ATTENDING PHY: Derrick Nelson MD [id number] [facility] File#: [id number] Verified/Reviewed by 09/21/18 [facility] MELANIE [facility] PATIENT NAME: TYRELL REYES DaleMello Kenzie Mohr MEDICAL REC #: [id number] [place] [address] ADMIT DATE: DISCHARGE DATE: OPERATIVE REPORT ATTENDING PHY: Derrick Nelson MD [facility] RENALon 09-21-2018 Albumin mass conc 3.6 g/dL Normal 3.2-5.0 [facility] Comment on above: Order Comment: Campu s: M Performed By: #### L 500.74763, L500.34548 #### [facility] [address] [place] [address] Anion gap molar conc 7 mmol/L Normal 5-16 [facility] Comment on above: Order Comment: Campu s: M Performed By: #### L 500.48565, L500.27174 #### [facility] [address] [place] [address] Calcium mass conc 8.3 mg/dL Low 8.5-10.1 [facility] Comment on above: Order Comment: Campu s: M Performed By: #### L 500.91488, L500.36020 #### [facility] [address] [place] [address] Chloride molar conc 110 mmol/L High 98-107 [facility] Comment on above: Order Comment: Campu s: M Performed By: #### L 500.67159, L500.95987 #### [facility] [address] [place] [address] CO2 molar conc 23 mmol/L Normal 21-32 [facility] Comment on above: Order Comment: Campu s: M Performed By: #### L 500.59968, L500.33923 #### [facility] [place] [address] Creatinine mass conc 1.990 mg/dL High 0.670-1.170 [facility] Comment on above: Order Comment: Campu s: M Result Comment: Maame ents receiving either N-Acetylcysteine (NAC) or Metamizole prior to venipuncture, may have falsely depressed results. Performed By: #### L 500.60909, L500.02443 #### [facility] [address] [place] [address] Glucose mass conc 150 mg/dL High 70-100 [facility] Comment on above: Order Comment: Campu s: M Result Comment: 70-1 00- Normal Fasting; 100-125 Impaired Fasting; greater than 126 on more than one result- Diabetes. ADA guidelines. Results may be falsely elevated after the administration of Sulfapyridine. Results may be falsely depressed after the administration of Sulfasalazine. Performed By: #### L 500.37134, L500.05022 #### [facility] [address] [place] [address] Phosphate mass conc 3.5 mg/dL Normal 2.5-4.9 [facility] Comment on above: Order Comment: Campu s: M Performed By: #### L 500.69640, L500.68516 #### [facility] [address] [place] [address] Potassium molar conc 5.0 mmol/L Normal 3.5-5.1 [facility] Comment on above: Order Comment: Campu s: M Performed By: #### L 500.81464, L500.48632 #### [facility] [address] [place] [address] Sodium molar conc 141 mmol/L Normal 136-145 [facility] Comment on above: Order Comment: Campu s: M Performed By: #### L 500.46314, L500.67788 #### [facility] [address] [place] [address] Urea nitrogen mass conc 32 mg/dL High 7-26 [facility] Comment on above: Order Comment: Campu s: M Performed By: #### L 500.29848, L500.28926 #### [facility] [address] [place] [address] Urea nitrogen/Creatinine mass ratio 16 mg/mg Normal 15-24 [facility] Comment on above: Order Comment: Campu s: [place] Performed By: #### L 500.74629, L500.42653 #### [facility] [address] [place] [address]# [phone] Chart Maintenanceon 02-28-20 17 Cholesterol 186 mg/dL Invalid Interpretation Code [facility] Work Phone: [phone] HDL Cholesterol 35 mg/dL Invalid Interpretation Code [facility] Work Phone: [phone] Triglyceride 444 mg/dL Invalid Interpretation Code [facility] Work Phone: [phone] Office Visit: [facility] 12-06-19 17 Dietary management education, guidance, and counseling (procedure) yes Invalid Interpretation Code [facility] Work Phone: [phone] Documentation of current medications (procedure) Done Invalid Interpretation Code [facility] Work Phone: [phone] Clinical Lists Updateon 11-13 Left ventricular Ejection fraction 65 % Invalid Interpretation Code [facility] Work Phone: [phone] Office Visit: [facility] 11-27-19 17 Creatinine 1.71 mg/dL Invalid Interpretation Code [facility] Work Phone: [phone] Urea nitrogen 52 mg/dL Invalid Interpretation Code [facility] Work Phone: [phone] Office Visiton 06-05-2016 Tobacco use [facility] Former smoker Invalid Interpretation Code [facility] Work Phone: [phone] Chart Maintenanceon 04-28-20 16 Alanine aminotransferase (ALT) 63 U/L Invalid Interpretation Code [facility] Work Phone: [phone] Aspartate aminotransferase (AST) 40 U/L Invalid Interpretation Code [facility] Work Phone: [phone] HbA1c 7.1 % High [facility] Work Phone: [phone] Chart Maintenanceon 02-28-20 16 Anion gap 11 mmol/L Invalid Interpretation Code [facility] Work Phone: [phone] BUN/Creatinine Ratio 16.3 mg/mg Invalid Interpretation Code [facility] Work Phone: [phone] Calcium 8.2 mg/dL Invalid Interpretation Code [facility] Work Phone: [phone] Chloride 111 mmol/L Invalid Interpretation Code [facility] Work Phone: [phone] CO2 19.0 mmol/L Invalid Interpretation Code [facility] Work Phone: [phone] Glucose 165 mg/dL High [facility] Work Phone: [phone] Hematocrit (HCT) 36.9 % Invalid Interpretation Code [facility] Work Phone: [phone] Hemoglobin (HGB) 12.1 g/dL Invalid Interpretation Code [facility] Work Phone: [phone] LDL Cholesterol 47 mg/dL Invalid Interpretation Code [facility] Work Phone: [phone] Platelets 164 10*3/mm3 Invalid Interpretation Code [facility] Work Phone: [phone] Potassium 4.7 mmol/L Invalid Interpretation Code [facility] Work Phone: [phone] Sodium 141 mmol/L Invalid Interpretation Code [facility] Work Phone: [phone] WBC (Leukocytes) 5.6 10*3/uL Invalid Interpretation Code [facility] Work Phone: [phone] Lab Report: Lipid Profileon 03-28-2015 very low density lipoproteins 49 mg/dL High 5-40 [facility] Work Phone: [phone] Lab Report: Liver Profileon 03-28-2015 Albumin 3.8 g/dL Invalid Interpretation Code 3.4-5.0 [facility] Work Phone: [phone] Alkaline phosphatase (ALP) 79 U/L Invalid Interpretation Code 50-136 [facility] Work Phone: [phone] Bilirubin (direct) 0.19 mg/dL Invalid Interpretation Code 0.00-0.30 [facility] Work Phone: [phone] Bilirubin (total) 0.60 mg/dL Invalid Interpretation Code 0.20-1.00 [facility] Work Phone: [phone] Globulin 4.1 g/dL Invalid Interpretation Code 2.7-4.2 [facility] Work Phone: [phone] Protein 7.9 g/dL Invalid Interpretation Code 6.4-8.2 [facility] Work Phone: [phone] Office Visiton 03-28-2015 cardiac risk group C Invalid Interpretation Code [facility] Phone: [phone] General cardiovascular disease 10Y risk [#] [employer]ore[facility] N/A Invalid Interpretation Code [facility] Phone: [phone] Replaced Document: Shira IBANEZ Observationson 03-28-2015 electrocardiogram interpretation Sinus Rhythm -RSR(V1) -nondiagnostic. PROBABLY NORMAL Invalid Interpretation Code [facility] Work Phone: [phone] GE use only - for [employer] import when terms are not otherwise specified 396 ms Invalid Interpretation Code [facility] Work Phone: [phone] P wave axis, electrocardiogram 52 deg Invalid Interpretation Code [facility] Work Phone: [phone] UT interval, electrocardiogram 150 ms Invalid Interpretation Code [facility] Work Phone: [phone] Pulse (Heart Rate) 73 /min Invalid Interpretation Code [facility] Phone: [phone] QRS axis, electrocardiogram -16 deg Invalid Interpretation Code [facility] Phone: [phone] QRS duration, electrocardiogram 96 ms Invalid Interpretation Code [facility] Phone: [phone] QT interval, electrocardiogram new path ms Invalid Interpretation Code [facility] Phone: [phone] T wave axis, electrocardiogram 32 deg Invalid Interpretation Code [facility] Phone: [phone] Clinical Lists Update: [employer] 02-03-2014 eGFR (non-black) mL/min/{1.73_m2} Invalid Interpretation Code [facility] Phone: [phone] Erythrocytes (RBC) 5.26 10*6/uL Invalid Interpretation Code [facility] Phone: [phone] MCHC 34.7 g/dL Invalid Interpretation Code [facility] Phone: [phone] MCV 92.0 fL Invalid Interpretation Code [facility] Phone: [phone] PMV by Nina 8.7 fL Low [facility] Phone: [phone] RDW-CA 12.8 % Invalid Interpretation Code [facility] Phone: Vital Signs Date Time Vital Sign Value Performing Clinician Kenneth atkins 03-29-2025 11:41-0400 Body height 171.[address] Lexus Rivera DO Work Phone: [facility] 03-29-2025 11:41-0400 Body weight 67.[address] Lexus Rivera DO Work Phone: [facility] 03-02-2025 09:02-0400 Body height 171.[address] Lexus Rivera DO Work Phone: [facility] 03-02-2025 09:02-0400 Body mass index (BMI) [Ratio] 23 kg/m2 Dr. Lexus Rivera DO Work Phone: [facility] 03-02-2025 09:02-0400 Body weight 67.[address] Lexus Rivera DO Work Phone: [facility] 03-02-2025 09:02-0400 Diastolic blood pressure 69 mm[Hg] Dr. Lexus Rivera DO Work Phone: [facility] 03-02-2025 09:02-0400 Heart rate 71 /min Dr. Lexus Rivera DO Work Phone: [facility] 03-02-2025 09:02-0400 Respiratory rate 18 /min Dr. Lexus Rivera DO Work Phone: [facility] 03-02-2025 09:02-0400 Systolic blood pressure 107 mm[Hg] Dr. Lexus Rivera DO Work Phone: [facility] 02-15-2025 11:38-0400 Body height 171.[address] Lexus Rivera DO Work Phone: [facility] 02-15-2025 11:35-0400 Body mass index (BMI) [Ratio] 23.4 kg/m2 Dr. Lexus Rivera DO Work Phone: [facility] 02-15-2025 11:35-0400 Body temperature 98.2 [degF] Dr. Lexus Rivera DO Work Phone: [facility] 02-15-2025 11:35-0400 Body weight [address] Lexus Rivera DO Work Phone: [facility] 02-15-2025 11:35-0400 Diastolic blood pressure 76 mm[Hg] Dr. Lexus Rivera DO Work Phone: [facility] 02-15-2025 11:35-0400 Heart rate 82 /min Dr. Lexus Rivera DO Work Phone: [facility] 02-15-2025 11:35-0400 Respiratory rate 18 /min Dr. Lexus Rivera DO Work Phone: [facility] 02-15-2025 11:35-0400 SaO2% (BldA) [Mass fraction] 97 % Dr. Lexus Rivera DO Work Phone: [facility] 02-15-2025 11:35-0400 Systolic blood pressure 144 mm[Hg] Dr. Lexus Rivera DO Work Phone: [facility] 01-02-2025 13:19-0400 Body weight 68.[address] Lexus Rivera DO Work Phone: [facility] 11-25-2024 05:37-0400 Body mass index (BMI) [Ratio] 23.1 kg/m2 Dr. Lexus Rivera DO Work Phone: [facility] 11-25-2024 05:37-0400 Body temperature 97 [degF] Dr. Lexus Rivera DO Work Phone: [facility] 11-25-2024 05:37-0400 Body weight 68.[address] Lexus Rivera DO Work Phone: [facility] 11-25-2024 05:37-0400 Diastolic blood pressure 61 mm[Hg] Dr. Lexus Rivera DO Work Phone: [facility] 11-25-2024 05:37-0400 Heart rate 78 /min Dr. Lexus Rivera DO Work Phone: [facility] 11-25-2024 05:37-0400 Respiratory rate 18 /min Dr. Lexus Rivera DO Work Phone: [facility] 11-25-2024 05:37-0400 SaO2% (BldA) [Mass fraction] 98 % Dr. Lexus Rivera DO Work Phone: [facility] 11-25-2024 05:37-0400 Systolic blood pressure 124 mm[Hg] Dr. Lexus Rivera DO Work Phone: [facility] 11-14-2024 14:16-0500 Body height 171.[address] Lexus Rivera DO Work Phone: [facility] 11-14-2024 14:16-0500 Body weight 68.[address] Lexus Rivera DO Work Phone: [facility] 11-14-2024 10:06-0500 Body mass index (BMI) [Ratio] 23.5 kg/m2 Dr. Lexus Rivera DO Work Phone: [facility] 11-14-2024 10:06-0500 Body temperature 97.3 [degF] Dr. Lexus Rivera DO Work Phone: [facility] 11-14-2024 10:06-0500 Body weight 69.[address] Lexus Rivera DO Work Phone: [facility] 11-14-2024 10:06-0500 Diastolic blood pressure 68 mm[Hg] Dr. Lexus Rivera DO Work Phone: [facility] 11-14-2024 10:06-0500 Heart rate 75 /min Dr. Lexus Rivera DO Work Phone: [facility] 11-14-2024 10:06-0500 Respiratory rate 18 /min Dr. Lexus Rivera DO Work Phone: [facility] 11-14-2024 10:06-0500 SaO2% (BldA) [Mass fraction] 100 % Dr. Lexus Rivera DO Work Phone: [facility] 11-14-2024 10:06-0500 Systolic blood pressure 121 mm[Hg] Dr. Lexus Rivera DO Work Phone: [facility] 11-04-2024 13:02-0500 Body temperature 96.5 [degF] Dr. Lexus Rivera DO Work Phone: [facility] 11-04-2024 13:02-0500 Diastolic blood pressure 51 mm[Hg] Dr. Lexus Rivera DO Work Phone: [facility] 11-04-2024 13:02-0500 Heart rate 55 /min Dr. Lexus Rivera DO Work Phone: [facility] 11-04-2024 13:02-0500 Respiratory rate 18 /min Dr. Lexus Rivera DO Work Phone: [facility] 11-04-2024 13:02-0500 SaO2% (BldA) [Mass fraction] 97 % Dr. Lexus Rivera DO Work Phone: [facility] 11-04-2024 13:02-0500 Systolic blood pressure 94 mm[Hg] Dr. Lexus Rivera DO Work Phone: [facility] 11-04-2024 10:30-0500 Body mass index (BMI) [Ratio] 23.8 kg/m2 Dr. Lexus Rivera DO Work Phone: [facility] 11-04-2024 10:30-0500 Body weight 69.[address] Lexus Rivera DO Work Phone: [facility] 10-20-2024 12:37-0500 Body weight 68.[address] Lexus Rivera DO Work Phone: [facility] 10-20-2024 12:37-0500 Heart rate 80 /min Dr. Lexus Rivera DO Work Phone: [facility] 10-20-2024 12:37-0500 SaO2% (BldA) [Mass fraction] 98 % Dr. Lexus Rivera DO Work Phone: [facility] 10-13-2024 09:59-0500 Body mass index (BMI) [Ratio] 24.1 kg/m2 Dr. Lexus Rivera DO Work Phone: [facility] 10-13-2024 09:59-0500 Body temperature 97.2 [degF] Dr. Lexus Rivera DO Work Phone: [facility] 10-13-2024 09:59-0500 Body weight 69.[address] Lexus Rivera DO Work Phone: [facility] 10-13-2024 09:59-0500 Diastolic blood pressure 68 mm[Hg] Dr. Lexus Rivera DO Work Phone: [facility] 10-13-2024 09:59-0500 Heart rate 78 /min Dr. Lexus Rivera DO Work Phone: [facility] 10-13-2024 09:59-0500 Respiratory rate 18 /min Dr. Lexus Rivera DO Work Phone: [facility] 10-13-2024 09:59-0500 SaO2% (BldA) [Mass fraction] 99 % Dr. Lexus Rivera DO Work Phone: [facility] 10-13-2024 09:59-0500 Systolic blood pressure 120 mm[Hg] Dr. Lexus Rivera DO Work Phone: [facility] 10-07-2024 09:16-0500 Body mass index (BMI) [Ratio] 24.1 kg/m2 Dr. Lexus Rivera DO Work Phone: [facility] 10-07-2024 09:16-0500 Body temperature 97.6 [degF] Dr. Lexus Rivera DO Work Phone: [facility] 10-07-2024 09:16-0500 Body weight 69.[address] Lexus Rivera DO Work Phone: [facility] 10-07-2024 09:16-0500 Diastolic blood pressure 68 mm[Hg] Dr. Lexus Rivera DO Work Phone: [facility] 10-07-2024 09:16-0500 Heart rate 83 /min Dr. Lexus Rivera DO Work Phone: [facility] 10-07-2024 09:16-0500 Respiratory rate 16 /min Dr. Lexus Rivera DO Work Phone: [facility] 10-07-2024 09:16-0500 SaO2% (BldA) [Mass fraction] 100 % Dr. Lexus Rivera DO Work Phone: [facility] 10-07-2024 09:16-0500 Systolic blood pressure 124 mm[Hg] Dr. Lexus Rivera DO Work Phone: [facility] 08-29-2024 06:19-0500 Body mass index (BMI) [Ratio] 24.3 kg/m2 Dr. Lexus Rivera DO Work Phone: [facility] 08-29-2024 06:19-0500 Body weight 70.[address] Lexus Rivera DO Work Phone: [facility] 08-29-2024 06:19-0500 Diastolic blood pressure 58 mm[Hg] Dr. Lexus Rivera DO Work Phone: [facility] 08-29-2024 06:19-0500 Heart rate 74 /min Dr. Lexus Rivera DO Work Phone: [facility] 08-29-2024 06:19-0500 Respiratory rate 16 /min Dr. Lexus Rivera DO Work Phone: [facility] 08-29-2024 06:19-0500 Systolic blood pressure 93 mm[Hg] Dr. Lexus Rivera DO Work Phone: [facility] 03-16-2024 11:33-0400 Body temperature 97.3 [degF] Dr. Lexus Rivera DO Work Phone: [facility] 03-16-2024 11:33-0400 Diastolic blood pressure 63 mm[Hg] Dr. Lexus Rivera DO Work Phone: [facility] 03-16-2024 11:33-0400 Heart rate 83 /min Dr. Lexus Rivera DO Work Phone: [facility] 03-16-2024 11:33-0400 Respiratory rate 16 /min Dr. Lexus Rivera DO Work Phone: [facility] 03-16-2024 11:33-0400 SaO2% (BldA) [Mass fraction] 98 % Dr. Lexus Rivera DO Work Phone: [facility] 03-16-2024 11:33-0400 Systolic blood pressure 166 mm[Hg] Dr. Lexus Rivera DO Work Phone: [facility] 03-16-2024 09:18-0400 Body mass index (BMI) [Ratio] 26.9 kg/m2 Dr. Lexus Rivera DO Work Phone: [facility] 01-18-2024 08:30-0400 Body temperature 97 [degF] Dr. Lexus Rivera Work Phone: [facility] 01-18-2024 08:30-0400 Diastolic blood pressure 63 mm[Hg] Dr. Lexus Rivera Work Phone: [facility] 01-18-2024 08:30-0400 Heart rate 64 /min Dr. Lexus Rivera Work Phone: [facility] 01-18-2024 08:30-0400 Respiratory rate 16 /min Dr. Lexus Rivera Work Phone: [facility] 01-18-2024 08:30-0400 SaO2% (BldA) [Mass fraction] 95 % Dr. Lexus Rivera Work Phone: [facility] 01-18-2024 08:30-0400 Systolic blood pressure 148 mm[Hg] Dr. Lexus Rivera Work Phone: [facility] 01-18-2024 06:34-0400 Body height 170.[address] Lexus Rivera Work Phone: [facility] 01-18-2024 06:34-0400 Body mass index (BMI) [Ratio] 30.4 kg/m2 Dr. Lexus Rivera Work Phone: [facility] 01-18-2024 06:34-0400 Body weight [address] Lexus Rivera Work Phone: [facility] 10-06-2023 10:02-0500 Body height 170.[address] Lexus Rivera Work Phone: [facility] 10-06-2023 10:02-0500 Body mass index (BMI) [Ratio] 31.1 kg/m2 Dr. Lexus Rivera Work Phone: [facility] 10-06-2023 10:02-0500 Body weight 90.[address] Lexus Rivera Work Phone: [facility] 10-06-2023 10:02-0500 Diastolic blood pressure 68 mm[Hg] Dr. Lexus Rivera Work Phone: [facility] 10-06-2023 10:02-0500 Heart rate 72 /min Dr. Lexus Rivera Work Phone: [facility] 10-06-2023 10:02-0500 Respiratory rate 18 /min Dr. Lexus Rivera Work Phone: [facility] 10-06-2023 10:02-0500 SaO2% (BldA) [Mass fraction] 96 % Dr. Lexus Rivera Work Phone: [facility] 10-06-2023 10:02-0500 Systolic blood pressure 113 mm[Hg] Dr. Lexus Rivera Work Phone: [facility] 09-20-2023 01:42-0500 Heart rate 82 /min [facility] 09-20-2023 01:42-0500 Respiratory rate 16 /min [facility] 09-20-2023 01:42-0500 SaO2% (BldA) [Mass fraction] 98 % [facility] 09-20-2023 00:05-0500 Body height 170.18 cm [facility] 09-20-2023 00:05-0500 Body mass index (BMI) [Ratio] 31.8 kg/m2 [facility] 09-20-2023 00:05-0500 Body temperature 97.8 [degF] [facility] 09-20-2023 00:05-0500 Body weight 92.2 kg [facility] 09-20-2023 00:05-0500 Diastolic blood pressure 42 mm[Hg] [facility] 09-20-2023 00:05-0500 Systolic blood pressure 120 mm[Hg] [facility] 02-03-2023 09:36-0400 Body height 170.[address] Lexus Rivera Work Phone: [facility] 02-03-2023 09:36-0400 Body mass index (BMI) [Ratio] 30.8 kg/m2 Dr. Lexus Rivera Work Phone: [facility] 02-03-2023 09:36-0400 Body weight 89.[address] Lexus Rivera Work Phone: [facility] 02-03-2023 09:36-0400 Diastolic blood pressure 64 mm[Hg] Dr. Lexus Rivera Work Phone: [facility] 02-03-2023 09:36-0400 Heart rate 64 /min Dr. Lexus Rivera Work Phone: [facility] 02-03-2023 09:36-0400 Respiratory rate 18 /min Dr. Lexus Rivera Work Phone: [facility] 02-03-2023 09:36-0400 Systolic blood pressure 138 mm[Hg] Dr. Lexus Rivera Work Phone: [facility] 10-13-2022 09:16-0500 Body height 170.[address] Lexus Rivera Work Phone: [facility] 10-13-2022 09:16-0500 Body mass index (BMI) [Ratio] 30.2 kg/m2 Dr. Lexus Rivera Work Phone: [facility] 10-13-2022 09:16-0500 Body weight 87.[address] Lexus Rivera Work Phone: [facility] 10-13-2022 09:16-0500 Diastolic blood pressure 73 mm[Hg] Dr. Lexus Rivera Work Phone: [facility] 10-13-2022 09:16-0500 Heart rate 71 /min Dr. Lexus Rivera Work Phone: [facility] 10-13-2022 09:16-0500 Respiratory rate 18 /min Dr. Lexus Rivera Work Phone: [facility] 10-13-2022 09:16-0500 SaO2% (BldA) [Mass fraction] 98 % Dr. Lexus Rivera Work Phone: [facility] 10-13-2022 09:16-0500 Systolic blood pressure 135 mm[Hg] Dr. Lexus Rivera Work Phone: [facility] 09-15-2022 12:31-0500 Diastolic blood pressure 77 mm[Hg] Dr. Lexus Rivera Work Phone: [facility] 09-15-2022 12:31-0500 Systolic blood pressure 171 mm[Hg] Dr. Lexus Rivera Work Phone: [facility] 09-15-2022 08:58-0500 Body mass index (BMI) [Ratio] 30.5 kg/m2 Dr. Lexus Rivera Work Phone: [facility] 09-15-2022 08:58-0500 Body temperature 98 [degF] Dr. Lexus Rivera Work Phone: [facility] 09-15-2022 08:58-0500 Body weight 88.[address] Lexus Rivera Work Phone: [facility] 09-15-2022 08:58-0500 Heart rate 93 /min Dr. Lexus Rivera Work Phone: [facility] 09-15-2022 08:58-0500 Respiratory rate 20 /min Dr. Lexus Rivera Work Phone: [facility] 09-15-2022 08:58-0500 SaO2% (BldA) [Mass fraction] 97 % Dr. Lexus Rivera Work Phone: [facility] 07-09-2022 09:15-0400 Body height 170.[address] Lexus Rivera Work Phone: [facility] Work Phone: 07-09-2022 09:15-0400 Body mass index (BMI) [Ratio] 30.7 kg/m2 Dr. Lexus Rivera Work Phone: [facility] 07-09-2022 09:15-0400 Body weight 88.[address] Lexus Rivera Work Phone: [facility] 07-09-2022 09:15-0400 Diastolic blood pressure 55 mm[Hg] Dr. Lexus Rivera Work Phone: [facility] 07-09-2022 09:15-0400 Heart rate 75 /min Dr. Lexus Rivera Work Phone: [facility] 07-09-2022 09:15-0400 Respiratory rate 18 /min Dr. Lexus Rivera Work Phone: [facility] 07-09-2022 09:15-0400 SaO2% (BldA) [Mass fraction] 97 % Dr. Lexus Rivear Work Phone: [facility] 07-09-2022 09:15-0400 Systolic blood pressure 114 mm[Hg] Dr. Lexus Rivera Work Phone: [facility] 01-06-2022 09:02-0400 Body height 170.[address] Lexus Rivera Work Phone: [facility] Work Phone: 01-06-2022 09:02-0400 Body mass index (BMI) [Ratio] 30.8 kg/m2 Dr. Lexus Rivera Work Phone: [facility] Work Phone: 01-06-2022 09:02-0400 Body weight 89.[address] Lexus Rivera Work Phone: [facility] Work Phone: 01-06-2022 09:02-0400 Diastolic blood pressure 69 mm[Hg] Dr. Lexus Rivera Work Phone: [facility] Work Phone: 01-06-2022 09:02-0400 Heart rate 69 /min Dr. Lexus Rivera Work Phone: [facility] Work Phone: 01-06-2022 09:02-0400 Respiratory rate 16 /min Dr. Lexus Rivera Work Phone: [facility] Work Phone: 01-06-2022 09:02-0400 Systolic blood pressure 138 mm[Hg] Dr. Lexus Rivera Work Phone: [facility] Work Phone: 01-06-2022 09:02-0400 Body height 170.[address] Lexus Rivera Work Phone: [facility] Work Phone: 01-06-2022 09:02-0400 Body mass index (BMI) [Ratio] 30.8 kg/m2 Dr. Lexus Rivera Work Phone: [facility] Work Phone: 01-06-2022 09:02-0400 Body weight 89.[address] Lexus Rivera Work Phone: [facility] Work Phone: 01-06-2022 09:02-0400 Diastolic blood pressure 69 mm[Hg] [facility] Lex[facility] Rivera [facility] [facility] Work Phone: 01-06-2022 09:02-0400 Heart rate 69 /min Dr. Lexus Rivera Work Phone: [facility] Work Phone: 01-06-2022 09:02-0400 Respiratory rate 16 /min Dr. Lexus Rivera Work Phone: [facility] Work Phone: 01-06-2022 09:02-0400 Systolic blood pressure 138 mm[Hg] Dr. Lexus iRvera Work Phone: [facility] Work Phone: 10-16-2020 06:40-0500 Body mass index (BMI) [Ratio] 30.1 kg/m2 [facility] Work Phone: 12-05-2016 15:44-0400 BMI (Body Mass [...] [facility] Work Phone: 12-20-2015 [id number] Body Temperature 98.3 [degF] [facility] Work Phone: 12-20-2015 [id number] BSA (Body Surface Area) 1.99 m2 [facility] Work Phone: Encounters Encounter Date Encounter Type Care Provider Facility Start: 05-16-2025 ambulatory [facility] Facility: [facility] Start: 05-15-2025 ambulatory Lexus Rivera Facility: [facility] Start: 05-05-2025 End: 05-05-[address] Zhang Quick MD -Laboratory Work Phone: Start: 05-05-2025 End: 05-05-[address] Lexus Rivera DO Work Phone: -Laboratory Start: 05-03-[address] Riki Pond on DO -Speech Therapy Work Phone: Start: 04-20-2025 End: 04-20-[address] Lexus Rivera DO Work Phone: -Radiology [facility] Start: 04-20-2025 End: 04-20-[address] Riki Lizama DO -Radiology [facility] Work Phone: Start: 04-20-2025 End: 04-20-2025 ambulatory Riki Dl Facility:[facility] Start: 04-18-2025 End: 04-18-2025 ambulatory LEXUS RIVERA DO Facility:[facility] Start: 04-18-2025 End: 04-18-2025 Patient encounter procedure LEXUS RIVERA DO [facility] Start: 04-17-[address] Riki Pond [...] Dr. Lexus Rivera DO Work Phone: -Radiology [facility] Start: 03-22-2025 End: 03-22-[address] Lexus Rivera DO -Radiology [facility] Work Phone: Start: 03-22-2025 End: 03-22-2025 ambulatory Lexus Rivera Facility:[facility] Start: 03-06-2025 End: 03-06-2025 ambulatory LEXUS RIVERA DO Facility:[facility] Start: 03-06-2025 End: 03-06-[address] DAVIS ORDONEZ MD [facility] Start: 03-02-2025 End: 03-02-2025 Patient encounter procedure Jolynn MULLINS -[facility] Work Phone: Start: 03-02-2025 End: 03-02-[address] Lexus Rivera DO Work Phone: [facility] Work Phone: Start: 02-27-2025 End: 02-27-[address] DAVIS ORDONEZ MD Facility:[facility] Start: 02-27-2025 End: 02-27-[address] DAVIS ORDONEZ MD [facility] Start: 02-24-2025 End: 02-24-2025 ambulatory LEXUS RIVERA DO [facility] Start: 02-24-2025 End: 02-24-[address] DAVIS ORDONEZ MD [facility] Start: 02-20-2025 End: 02-20-2025 ambulatory LEXUS RIVERA DO [facility] Start: 02-20-2025 End: 02-20-[address] DAVIS ORDONEZ MD [facility] Start: 02-18-2025 Encounter for preprocedural laboratory examination [facility] Start: 02-15-2025 End: 02-15-[address] Riki Lizama DO -[facility] Work Phone: Start: 02-15-2025 End: 02-15-[address] Lexus Rivera DO Work Phone: [facility] Work Phone: Start: 02-13-2025 End: 02-13-[address] Riki Lizama DO -Cat Scan [facility] Work Phone: Start: 02-13-2025 End: 02-13-[address] Zhang Quick MD -Laboratory Work Phone: Start: 02-13-[address] Zhang Quick MD -Laboratory Work Phone: Start: 02-13-2025 End: 02-13-[address] Lexus Rivera DO Work Phone: [facility] Work Phone: Start: 02-13-2025 End: 02-13-2025 ambulatory Riki Dl Facility:[facility] Start: 02-01-2025 ambulatory Davis Ordonez Facility :[facility] Start: 12-28-[address] Riki Pond on DO -Speech Therapy Work Phone: Start: 12-27-2024 End: 12-31-2024 ambulatory LEXUS RIVERA DO Facility[facility] [place] Start: 11-25-2024 End: 11-25-2024 Patient encounter procedure MARCOS Abel [facility] Work Phone: Start: 11-25-2024 End: 11-25-2024 ambulatory Alexus Abel Facility:[facility] Start: 11-15-2024 End: 11-15-[address] Lexus Rivera DO Work Phone: [facility] Work Phone: Start: 11-15-2024 End: 11-15-[address] Lexus Rivera DO -Laboratory Work Phone: Start: 11-14-[address] Riki Pond on DO -Speech Therapy Work Phone: Start: 11-14-2024 End: 11-14-[address] Riki Lizama DO -[facility] Work Phone: Start: 11-14-2024 End: 11-15-2024 ambulatory Lexus Rivera Facility:[facility] Start: 11-04-2024 Non-patient / Non-visit Dr. Terence rodriguez DO -[facility] Start: 11-04-2024 End: 11-04-2024 Admission to same day surgery center Dr. Terence Alba DO -Endoscopy Work Phone: Start: 11-04-2024 End: 11-04-2024 [facility] Start: 11-03-2024 End: 11-11-[address] Zhang Quick MD -Laboratory Work Phone: Start: 11-03-2024 End: 11-11-2024 ambulatory Lexus Rivera Facility:[facility] Start: 10-31-2024 ambulatory Lexus Nicole Facility: [facility] Start: 10-31-2024 Non-patient / Non-visit Dr. Terence Mueller own -[facility] Start: 10-28-2024 End: 10-28-[address] Terence Alba DO -Pulmonary Services/Neurology Work Phone: Start: 10-28-2024 End: 10-28-2024 [facility] Start: 10-24-2024 ambulatory Lexsu Nicole Facility: [facility] Start: 10-24-2024 Non-patient / Non-visit Dr. Terence Mueller own -[facility] Start: 10-21-2024 End: 10-21-[address] Riki Lizama DO -[facility] Work Phone: Start: 10-21-2024 End: 10-21-2024 ambulatory Riki Lizama Facility:[facility] Start: 10-20-2024 End: 10-20-[address] Terence Alba DO -Pulmonary Services/Neurology Work Phone: Start: 10-20-2024 End: 10-20-2024 ambulatory [facility] Facility:[facility] Start: 10-13-2024 End: 10-13-[address] Terence Alba DO -[facility] Work Phone: Start: 10-13-2024 End: 10-13-2024 ambulatory Lexus Rivera Facility:[facility] Start: 10-07-2024 End: 10-07-[address] Riki Lizama DO [facility] Work Phone: Start: 10-07-2024 End: 10-07-2024 ambulatory Lexus Rivera Facility:[facility] Start: 10-04-[address] Riki Pond on [facility] Start: 10-04-2024 End: 10-04-[address] Zhang Quick MD -Laboratory Work Phone: Start: 10-04-2024 End: 10-04-2024 [facility] Facility[facility] Start: 08-29-2024 End: 08-29-2024 Patient encounter procedure Payal STOCKTON -[facility] Work Phone: Start: 08-29-2024 End: 08-29-2024 ambulatory Lexus Rivera Facility:[facility] Start: 08-12-2024 End: 08-13-[address] Zhang Quick MD -Laboratory Work Phone: Start: 08-12-2024 End: 08-13-2024 ambulatory Lexus Halosvaldo Facility:[facility] Start: 08-05-2024 ambulatory Lexus Halosvaldo Facility: [facility] Start: 07-25-2024 ambulatory Lexus Halko Facility: [facility] Start: 07-13-2024 End: 07-13-2024 ambulatory Lexus Halko Facility:[facility] Start: 07-07-2024 End: 07-07-2024 ambulatory Lexus Halko Facility:[facility] Start: 07-04-2024 End: 07-14-2024 ambulatory Lexus Halko Facility:[facility] Start: 06-30-2024 End: 06-30-2024 ambulatory Lexus Halko Facility:[facility] Start: 06-03-2024 End: 06-03-2024 ambulatory Lexus Halko Facility:[facility] Start: 05-30-2024 End: 05-30-2024 ambulatory LEXUS RIVERA DO Facility:[facility] Start: 05-30-2024 End: 05-30-2024 Patient encounter procedure LEXUS RIVERA DO [facility] Start: 05-25-2024 End: 05-25-2024 ambulatory Lexus Rivera Facility:[facility] Start: 01-18-2024 End: 01-18-2024 Admission to same day surgery center Dr. Lexus Rivera Work Phone: [facility]-Surgical Day Care Start: 01-18-2024 End: 01-18-[address] Lexus Rivera Work Phone: [facility] Work Phone: Start: 01-11-2024 End: 01-11-2024 Non-patient / Non-visit Dr. Lexus Rivera Work Phone: [facility] Work Phone: Start: 01-07-2024 End: 01-07-[address] Lexus Rivera Work Phone: [facility] Work Phone: Start: 01-07-2024 End: 01-12-[address] Lexus Rivera Work Phone: [facility] Work Phone: Start: 01-07-2024 End: 01-12-[address] [facility] Start: 01-07-[address] Ricardo [facility] Start: 12-01-2023 End: 12-06-2023 ambulatory LEXUS RIVERA DO Facility:[facility] Start: 12-01-2023 End: 12-05-2023 Outreach Lab LEXUS RIVERA DO [facility] Start: 11-25-2023 End: 12-13-[address] Lexus Rivera Work Phone: [facility] Work Phone: Start: 11-25-2023 End: 12-13-[address] [facility] Start: 11-16-2023 End: 11-16-[address] Lexus Rivera Work Phone: [facility] Work Phone: Start: 11-16-2023 End: 11-16-[address] Lexus Rivera Work Phone: [facility]-Laboratory Work Phone: Start: 11-04-2023 End: 11-12-[address] Lexus Rivera Work Phone: [facility] Work Phone: Start: 11-04-2023 End: 11-12-[address] [facility] Start: 11-03-2023 End: 11-08-2023 ambulatory LEXUS RIVERA DO Facility:[facility] Start: 10-14-2023 End: 10-14-[address] [facility] Rivera [facility] Start: 10-06-2023 End: 10-06-[address] Lexus Rivera Work Phone: [facility] Work Phone: Start: 09-20-2023 End: 09-20-2023 Emergency department patient visit [facility]-Emergency Department Work Phone: Start: 07-06-2023 End: 07-06-2023 ambulatory [facility] Work Phone: Start: 07-06-2023 End: 07-06-2023 [facility] Start: 06-23-2023 End: 06-28-2023 ambulatory LEXUS RIVERA DO Facility:[facility] Start: 06-23-2023 End: 06-28-2023 ambulatory LEXUS RIVERA DO Facility:[facility] Start: 06-23-2023 End: 06-27-2023 Outreach Lab LEXUS RIVERA DO [facility] Start: 06-23-2023 End: 06-27-2023 Outreach Lab LEXUS RIVERA DO [facility] Start: 04-20-2023 End: 04-20-[address] Lexus Rivera Work Phone: [facility] Work Phone: Start: 04-20-2023 End: 04-20-[address] Lexus Rivera Work Phone: [facility]-Laboratory Work Phone: Start: 04-10-2023 End: 04-10-[address] Lexus Rivera Work Phone: [facility] Work Phone: Start: 04-10-2023 End: 04-10-[address] Lexus Rivera Work Phone: [facility]-Laboratory Work Phone: Start: 04-02-2023 End: 04-13-[address] Lexus Rivera Work Phone: [facility]-Laboratory Work Phone: Start: 02-03-2023 End: 02-03-[address] Lexus Rivera Work Phone: [facility] Work Phone: Start: 01-15-2023 End: 01-15-[address] Lexus Rivera Work Phone: [facility] Work Phone: Start: 01-15-2023 End: 01-15-[address] Lexus Rivera Work Phone: [facility]-Physical Therapy Start: 01-06-[address] Ricardo Rivera Work Phone: [facility]-Physical Therapy Start: 01-01-2023 End: 01-11-[address] Lexus Rivera Work Phone: [facility] Work Phone: Start: 01-01-2023 End: 01-11-[address] Lexus Rivera Work Phone: [facility]-Laboratory Start: 12-25-[address] Ricardo Rivera Work Phone: [facility]-Physical Therapy Start: 12-18-[address] [facility] Start: 12-18-2022 End: 12-18-[address] Lexus Rivera Work Phone: [facility] Work Phone: Start: 12-18-2022 End: 12-18-[address] Lexus Rivera Work Phone: [facility]-Cardiovascula r Services Start: 12-12-[address] Ricardo Rivera Work Phone: [facility]-Physical Therapy Start: 11-26-2022 End: 12-12-[address] Lexus Rivera Work Phone: [facility] Work Phone: Start: 11-26-2022 End: 12-12-[address] [facility] Start: 10-13-2022 End: 10-13-[address] Lexus Rivera Work Phone: [facility] Start: 10-09-2022 End: 10-09-[address] Lexus Rivera Work Phone: [facility] Work Phone: Start: 10-09-2022 End: 10-09-[address] Lexus Rivera Work Phone: [facility]-Laboratory Start: 09-15-2022 End: 09-15-2022 Emergency department patient visit Dr. Lexus Rivera Work Phone: [facility]-Emergency Department Start: 07-21-2022 Non-patient / Non-visit Dr. Rahel Rivera [facility] Start: 07-21-2022 End: 07-21-[address] Lexus Rivera Work Phone: [facility] Work Phone: Start: 07-21-2022 End: 07-21-[address] Lexus Rivera Work Phone: [facility]-Cardiovascula r Services Start: 07-09-2022 End: 07-09-[address] Lexus Rivera Work Phone: [facility] Work Phone: Start: 07-09-2022 End: 07-09-[address] Lexus Rivera Work Phone: [facility]-Laboratory Start: 06-25-2022 End: 06-25-[address] Lexus Rivera Work Phone: [facility] Work Phone: Start: 06-25-2022 End: 06-25-[address] [facility] Start: 04-11-2022 End: 04-13-[address] [facility] Start: 02-26-2022 End: 02-26-[address] [facility] Start: 02-12-2022 End: 02-12-[address] [facility] Start: 01-24-2022 End: 01-24-[address] [facility] Rivrea [facility] Start: 01-06-2022 End: 01-06-[address] Lexus Rivera Work Phone: [facility] Start: 01-03-2022 End: 01-03-[address] Lexus Rivera Work Phone: [facility] Start: 12-26-2021 End: 12-26-[address] [facility] Rivera [facility] Start: 12-26-2021 [facility] Start: 12-26-2021 End: 12-26-2021 Patient encounter procedure [facility] Start: 12-11-2021 End: 12-12-2021 [facility] Start: 12-04-2021 End: 12-04-[address] Lexus Rivera [facility] Start: 12-04-2021 Registered Recurring [facility] Start: 10-21-2021 End: 10-21-2021 [facility] Start: 09-21-2018 Evaluation and manag ement of inpatient Derrick Nelson Facility:[facility] Procedures Date Procedure Procedure Detail Performing Clinician Start: 05-05-[address] Lexus Rivera DO Work Phone: Comment on above: Test Ordered: [id number] Cystatin CCystatin C 2.17 [H ] mg/L CB Reference Range: 0.78-1.15Performed at: - [facility] [id number] Director: Davis Castillo PhD, Phone: [phone] Start: 05-05-2025 Serum inorganic phosphate measurement Dr. Lexus Rivera DO Work Phone: Start: 04-20-2025 Videoswalmike Rivera [...] Rivera Work Phone: Start: 12-05-2016 End: 12-05-2016 DIRECTOR CHILD ABUSE THERAPY Payal Virgen PA-C Work Phone: Start: 12-05-2016 [...] Date Care Activity Detail Author Start: 11-04-2024 [facility] ebus guided sampl 3/> node station/strux BRONCH EBUS SAMPLNG 3/> NODE [facility] Start: 11-04-2024 Patient discharge [facility] Start: 10-07-2024 Patient referral [facility] Work Phone: Start: 01-18-2024 Ambulation without limitation [facility] Start: 01-18-2024 Elevation of head of bed [facility] Start: 01-18-2024 Patient discharge [facility] Start: 01-18-2024 Medical regimen orders management [facility] Start: 01-18-2024 Medication education [facility] Start: 01-18-2024 Procedure discontinued [facility] Start: 01-18-2024 Taking patient vital signs [facility] Start: 01-18-2024 Vital signs measurements [facility] Start: 09-20-2023 [facility] Start: 06-04-2017 End: 06-04-2017 Appointment Appointment [facility] Work Phone: Start: 12-05-2016 End: 12-05-2016 DIRECTOR CHILD ABUSE THERAPY DIRECTOR CHILD ABUSE THERAPY [facility] Work Phone: Start: 12-05-2016 End: 12-05-2016 [facility] Nutrition Services, [address] [place] [address], [id number] [facility] Work Phone: Start: 12-05-2016 End: 12-05-2016 Follow Up Appt 6 months Follow Up Appt 6 months [facility] Work Phone: Start: 06-05-2016 End: 06-05-2016 *Hepatic Function Panel *Hepatic Function Panel [facility] Work Phone: Start: 06-05-2016 End: 06-05-2016 Follow Up Appt 6 months Follow Up Appt 6 months [facility] Work Phone: Start: 06-05-2016 End: 06-05-2016 Lipid panel [AGGREGATE] *Lipid Profile CC PCP [facility] Work Phone: Start: 06-05-2016 End: 06-05-2016 MMM MMM [facility] Work Phone: Start: 12-20-2015 End: 12-20-2015 Diagnostic colonoscopy Colonoscopy [facility] Work Phone: Start: 05-09-2015 End: 11-28-2016 *Hepatic Function Panel *Hepatic Function Panel [facility] Work Phone: Start: 05-09-2015 End: 11-28-2016 Lipid panel [AGGREGATE] *Lipid Profile CC PCP [facility] Work Phone: Start: 03-28-2015 End: 03-28-2015 *Hepatic Function Panel *Hepatic Function Panel [facility] Work Phone: Start: 03-28-2015 End: 03-28-2015 Echocardiography Echocardiogram (complete) [facility] Work Phone: Start: 03-28-2015 End: 03-28-2015 Electrocardiogram, complete EKG (In office) [facility] Work Phone: Start: 03-28-2015 End: 03-28-2015 Lipid panel [AGGREGATE] *Lipid Profile CC PCP [facility] Work Phone: Start: 03-28-2015 End: 03-28-2015 Nuclear stress test -Lexiscan Nuclear stress test -Lexiscan [facility] Work Phone: CT Chest W contrast IV [facility] CT Chest W contrast IV [facility] Electrocardiographic procedure [facility] NM Heart Views W str ess and W radionuclide IV [facility] Work Phone: Patient Education [facility] Work Phone: Patient referral [facility] Work Phone: US Heart [facility] Work Phone: Immunizations Immunization Date Immunization Notes Care Provider Fa [facility] 09-11-2021 SARS-CoV-2 (COVID-19 ) mRNA-[id number] vaccine LEXUS RIVERA DO [facility] 12-12-2020 SARS-CoV-2 (COVID-19 ) mRNA-1273 vaccine [address]US RIVERA DO [facility] 11-15-2020 SARS-CoV-2 (COVID-19 ) mRNA-1273 vaccine [address] RIVERA DO [facility] Comment on above: Result Comment: 2020: [id number] Payers Date Payer Category Payer Private Health Insurance afa [id number] 2024 Unknown [id number] 2024 Self-pay [id number] 2023 Unknown [id number] 2021 Medicare [id number] 2021 Unknown [id number] 2011 Private Health Insurance [id number] 2008 Medicare [id number] 2008 Medicare [id number] 1948 Unknown [id number] 2.16.8 [id number] 1948 Unknown [id number] [id number] 1948 Unknown [id number] 2.16.8 [id number] 1948 Unknown [id number] 2.16.8 [id number] 1948 Unknown [id number] 2.16. [id number] 1948 Unknown [id number] 2.16. [id number] 1948 Unknown [id number] 2.16. [id number] 1948 Unknown [id number] 2.16. 840.1.741935.3.579.2.627 1950 Unknown [id number] 2.16. 840.1.316703.3.579.2.627 1950 Unknown [id number] 2.16.8 40.1.791688.3.579.2.627 1950 Unknown [id number] 2.16.8 40.1.091898.3.579.2.627 Unknown [id number] 2.16.8 40.1.324319.3.579.2.273 Unknown [id number] 2.16.8 40.1.289375.3.579.2.462 Unknown [id number] 2.16.8 40.1.263890.3.579.2.462 Unknown [id number] 2.16.8 40.1.355749.3.579.2.462 Unknown [id number] 2.16.8 40.1.979224.3.579.2.462 Unknown [id number] 2.16.8 40.1.175354.3.579.2.462 Unknown [id number] 2.16.8 40.1.352805.3.579.2.462 Unknown [id number] 2.16.8 40.1.246389.3.579.2.462 Unknown [id number] 2.16.8 40.1.331629.3.579.2.462 Unknown [id number] 2.16.8 40.1.621775.3.579.2.462 Unknown [id number] 2.16.8 40.1.778841.3.579.2.462 Unknown [id number] 2.16.8 40.1.546253.3.579.2.462 Unknown [id number] 2.16.8 40.1.604446.3.579.2.462 Unknown [id number] 2.16.8 40.1.562221.3.579.2.462 Unknown [id number] 2.16.8 40.1.468396.3.579.2.462 Unknown [id number] 2.16.8 40.1.003808.3.579.2.462 Unknown [id number] 2.16.8 40.1.449849.3.579.2.462 Unknown [id number] 2.16.8 40.1.604763.3.579.2.462 Unknown [id number] 2.16.8 40.1.151057.3.579.2.462 Unknown [id number] 2.16.8 40.1.900939.3.579.2.462 Unknown [id number] 2.16.8 40.1.165140.3.579.2.462 Unknown [id number] 2.16.8 40.1.810641.3.579.2.462 Unknown [id number] 2.16.8 40.1.356802.3.579.2.462 Unknown [id number] 2.16.8 40.1.799041.3.579.2.462 Unknown [id number] 2.16.8 40.1.190795.3.579.2.462 Unknown [id number] 2.16.8 40.1.664380.3.579.2.462 Unknown [id number] 2.16.8 40.1.839903.3.579.2.462 Unknown [id number] 2.16.8 40.1.099691.3.579.2.462 Unknown [id number] 2.16.8 40.1.947006.3.579.2.462 Unknown [id number] 2.16.8 40.1.390246.3.579.2.462 Unknown [id number] 2.16.8 40.1.996887.3.579.2.462 Unknown [id number] 2.16.8 40.1.134344.3.579.2.462 Unknown [id number] 2.16.8 40.1.292828.3.579.2.462 Unknown [id number] 2.16.8 40.1.939545.3.579.2.462 Unknown [id number] 2.16.8 40.1.527307.3.579.2.462 Unknown [id number] 2.16.8 40.1.189526.3.579.2.462 Unknown [id number] 2.16.8 40.1.115516.3.579.2.462 Unknown [id number] 2.16.8 40.1.043290.3.579.2.462 Unknown [id number] 2.16.8 40.1.902684.3.579.2.462 Unknown [id number] 2.16.8 40.1.814815.3.579.2.462 Social History Date Type Detail Facility Start: 02-22-2021 End: 01-08-2024 Tobacco smoking status OHIS Unknown if ever smoked [facility] Start: 10-13-2020 Heavy [facility] Start: 10-13-2020 Marijuana [facility] Start: 10-13-2020 With Family [facility] Start: 03-22-2020 - [facility] Start: 1950 Sex Assigned At Male W [facility] Start: 04-13-2019 End: 04-12-2025 Tobacco smoking status Ex-smoker (finding) [facility] Start: 03-09-2019 End: 11-26-2024 Sex Male (finding) [facility] Sexual Orientation Thao David hunt [facility] Medical Equipment Procedure Code Equipment Code Equipment [...] monitored anesthesia care Gastrostomy tube kit, medicated [id number] FDA Start: 02-25-2024 See Instructions , accucheck guide brand; test BGT BID for titration of medications; dispense #300 for 90 day supply; 3; dx E11.65, # 3 EA, 3 Refill(s), Pharmacy: [facility], 170.5, cm, 06/02/23 9:59:00 EDT, Height, 88.7, kg, 06/02/23 9:59:00 EDT, Dosing Weight Start: 06-19-2023 See Instructions , dispense #30 BD ultra fine short needles (4 mm, 32 G), use daily to inject insulin; no refills; dx E11.42, # 3 EA, 3 Refill(s), Pharmacy: [facility], 170.5, cm, 06/02/23 9:59:00 EDT, Height, 88.7, kg, 06/02/23 9:59:00 EDT, Dosing Weight Start: 06-19-2023 See Instructions , accucheck guide brand; test BGT BID for titration of medications; dispense #300 for 90 day supply; 3; dx E11.65, # 3 EA, 3 Refill(s), Pharmacy: [facility], 170.5, cm, 06/02/23 9:59:00 EDT, Height, 88.7, kg, 06/02/23 9:59:00 EDT, Dosing Weight Start: 06-19-2023 See Instructions , dispense #30 BD ultra fine short needles (4 mm, 32 G), use daily to inject insulin; no refills; dx E11.42, # 3 EA, 3 Refill(s), Pharmacy: [facility], 170.5, cm, 06/02/23 9:59:00 EDT, Height, 88.7, kg, 06/02/23 9:59:00 EDT, Dosing Weight Start: 06-19-2023 See Instructions , accucheck guide brand; test BGT BID for titration of medications; dispense #300 for 90 day supply; 3; dx E11.65, # 3 EA, 3 Refill(s), Pharmacy: [facility], 170.5, cm, 06/02/23 9:59:00 EDT, Height, 88.7, kg, 06/02/23 9:59:00 EDT, Dosing Weight Start: 06-19-2023 See Instructions , dispense #30 BD ultra fine short needles (4 mm, 32 G), use daily to inject insulin; no refills; dx E11.42, # 3 EA, 3 Refill(s), Pharmacy: [facility], 170.5, cm, 06/02/23 9:59:00 EDT, Height, 88.7, kg, 06/02/23 9:59:00 EDT, Dosing Weight Start: 06-19-2023 Goals Date Patient Goal Desired Activity /State Mental Status Date Assessment Result Facility 11-04-2024 Cognitive function Level Of Cons ciousness Sedated;Responds to painful stimuli [facility] Work Phone: 11-04-2024 Cognitive function Voice/Name [facility] Work Phone: 03-16-2024 Cognitive function Voice/Name [facility] Work Phone: 01-18-2024 Cognitive function Level Of Consciousness Sedated [facility] Work Phone: Clinical Notes 10-22-2020 to 04-20-2025 Note Date & Type Note Facility 04-20-2025 Procedure note [facility] 03-23-2025 Procedure note [facility] 03-06-2025 Evaluation + Plan note Extracted from: Title:Clinical Document Author:DAVIS ORDONEZ Date:03/06/25 [facility] ADMISSION H[facility]ORY AN D PHYSICIAL CHIEF COMPLAINT: HISTORY OF PRESENT ILLNESS: REVIEW OF SYSTEMS: ACTIVE PROBLEMS: (85) Abnormal lung sounds (3019089047) Actinic keratosis (2196633019) Acute cholecystitis (440370466) Anemia (043269044) Anticoagulated on Coumadin (71855814) Atrial fibrillation (82531091) Biceps tendonitis on right (284216846) Blood loss anemia (5384459756) BMI 30.0-30.9,adult (107184319) BPH without urinary obstruction (7663308212) Chronic diastolic heart failure with preserved ejection fraction (5877218980) Chronic low back pain (249141886) Coronary atherosclerosis (2423409141) Cough (39669850) Diabetes mellitus with hyperglycemia (289670059) Diabetes mellitus with microalbuminuria (176563866) Diabetic nephropathy (0330320996) Diabetic peripheral neuropathy (4538184487) Diarrhea (541844548) Dry skin (84457954) Eustachian tube dysfunction (97499918) Exposure to COVID-19 virus (9474287593) Fatigue (126138042) Former smoker (35546334) GI bleed (334369506) Grief (871082480) Hair loss (830496306) History of lacunar cerebrovascular accident (CVA) (0822559041) Hospital discharge follow-up (4558330493) Hypercoagulable state due to atrial fibrillation (1205973022) Hypertension associated with diabetes (8165453426) 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 (985206247) Immunization declined (5641845033) Immunization refused (1834091778) Incisional hernia (771936543) Intermittent claudication (738102014) Leg edema (563281533) Lightheaded (9576965654) Low back pain (491098793) LVH (left ventricular hypertrophy) (91867512) LVH (left ventricular hypertrophy) due to hypertensive disease (6635149339) Marijuana use (6957895646) Medicare annual wellness visit, subsequent (119910750) Melena (3345036) Microalbuminuria (063106464) Need for hepatitis C screening test (254722625) Neoplasm of uncertain behavior (583072044) Obese (0427801576) Obstructive sleep apnea (517290066) Odynophagia (427454929) Osteoarthritis of lumbar spine (805799777) Osteoporosis screening (018612757) Prostate cancer screening (425776493) PVD (peripheral vascular disease) (6246705109) Right shoulder pain (73572742) S/P cholecystectomy (9842384227) S/P percutaneous endoscopic gastrostomy (PEG) tube placement (1939778831) Screening due (179479239) Screening for glaucoma (073583069) Seasonal affective disorder (054731629) Seborrheic keratoses (2187612804) Segmental and somatic dysfunction of cervical region (104936905) Segmental and somatic dysfunction of lower extremity (973935586) Segmental and somatic dysfunction of lumbar region (136636901) Segmental and somatic dysfunction of pelvic region (362641021) Segmental and somatic dysfunction of rib cage (987229848) Segmental and somatic dysfunction of sacral region (987168675) Segmental and somatic dysfunction of thoracic region (112406179) Segmental and somatic dysfunction of upper extremity (020336316) Skin lesion of face (0967957048) Skin mole (591552600) Skin tear of right lower leg without complication (4306976094) Somatic dysfunction of lower extremity (3612945161) 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) Stage 3b chronic kidney disease (CKD) (6344418103) Swelling of right foot (6263382301) Telangiectasia (022747337) Tendinitis of right infraspinatus tendon (395917616) Thrush (804223625) Tongue mass (2045233450) Transient cerebral ischemia (948150049) Type 2 diabetes mellitus with hyperlipidemia (763118442) Upper GI bleed (95565976) Ventricular premature complexes (564307055) Verruca vulgaris (01677836) MEDICATIONS: Active Inpt Meds: None Active PRN [...] FAMILY HISTORY: SOCIAL HISTORY: PHYSICAL EXAM: VITALS: FmqmguPnvfSVXqhcrJSLdP6RRQ5MvsgRc(kg) 03/06 11:00----714176RD90/23 68.2 03/06 10:40----063095NO 03/06 10:33----555926FA 03/06 10:2736.1--0143059 2.0L/m 03/06 10:20--------100-- 24 Hr Tmax: 36.4 [...] Extracted from: Title:Clinical Document Author:DAVIS ORDONEZ Date:03/06/25 [facility] ADMISSION H[facility]ORY AN D PHYSICIAL CHIEF COMPLAINT: HISTORY OF PRESENT ILLNESS: REVIEW OF SYSTEMS: ACTIVE PROBLEMS: (85) Abnormal lung sounds (1037204841) Actinic keratosis (3671993904) Acute cholecystitis (671986105) Anemia (308530397) Anticoagulated on Coumadin (38792746) Atrial fibrillation (84079050) Biceps tendonitis on right (685233616) Blood loss anemia (7812920784) BMI 30.0-30.9,adult (927815421) BPH without urinary obstruction (2147920337) Chronic diastolic heart failure with preserved ejection fraction (9276255334) Chronic low back pain (122060960) Coronary atherosclerosis (7145878706) Cough (10407933) Diabetes mellitus with hyperglycemia (354322520) Diabetes mellitus with microalbuminuria (232952002) Diabetic nephropathy (8957611610) Diabetic peripheral neuropathy (6833983774) Diarrhea (201125088) Dry skin (88305442) Eustachian tube dysfunction (46417810) Exposure to COVID-19 virus (3926350946) Fatigue (487342865) Former smoker (82398495) GI bleed (632719714) Grief (918898261) Hair loss (226173594) History of lacunar cerebrovascular accident (CVA) (6811279921) Hospital discharge follow-up (5780508066) Hypercoagulable state due to atrial fibrillation (2469236927) Hypertension associated with diabetes (8345309865) 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 (496183607) Immunization declined (0289511005) Immunization refused (8449680841) Incisional hernia (563866258) Intermittent claudication (445899784) Leg edema (106198853) Lightheaded (7007961089) Low back pain (689567167) LVH (left ventricular hypertrophy) (36971983) LVH (left ventricular hypertrophy) due to hypertensive disease (6896834478) Marijuana use (7515895070) Medicare annual wellness visit, subsequent (164433907) Melena (7528233) Microalbuminuria (772401168) Need for hepatitis C screening test (982622902) Neoplasm of uncertain behavior (546380192) Obese (5209519978) Obstructive sleep apnea (595947741) Odynophagia (912157668) Osteoarthritis of lumbar spine (599785976) Osteoporosis screening (450262773) Prostate cancer screening (159600943) PVD (peripheral vascular disease) (7777740703) Right shoulder pain (07466179) S/P cholecystectomy (7992929575) S/P percutaneous endoscopic gastrostomy (PEG) tube placement (2594511856) Screening due (591623322) Screening for glaucoma (372727617) Seasonal affective disorder (937949669) Seborrheic keratoses (9161078662) Segmental and somatic dysfunction of cervical region (414289369) Segmental and somatic dysfunction of lower extremity (380692973) Segmental and somatic dysfunction of lumbar region (849640035) Segmental and somatic dysfunction of pelvic region (690193897) Segmental and somatic dysfunction of rib cage (518760587) Segmental and somatic dysfunction of sacral region (363492914) Segmental and somatic dysfunction of thoracic region (457101805) Segmental and somatic dysfunction of upper extremity (026714814) Skin lesion of face (2555005745) Skin mole (429614898) Skin tear of right lower leg without complication (4741075045) Somatic dysfunction of lower extremity (7918270009) Squamous cell carcinoma of epiglottis (2077239662) Stage 3b chronic kidney disease (CKD) (5896935800) Swelling of right foot (9011754772) Telangiectasia (180591690) Tendinitis of right infraspinatus tendon (669752422) Thrush (448932694) Tongue mass (7323511970) Transient cerebral ischemia (173940606) Type 2 diabetes mellitus with hyperlipidemia (242717059) Upper GI bleed (14438119) Ventricular premature complexes (807993209) Verruca vulgaris (17079907) MEDICATIONS: Active Inpt Meds: None Active PRN Meds: None One Time Meds: None Active IV Meds: Lactated Ringers Infusion 1,000 mL Start: 03/06/25 7:58:00 EDT, Rate: 20 mL/hr, 03/06/25 7:58:00 EDT ALLERGIES: (1) metFORMIN FAMILY HISTORY: SOCIAL HISTORY: PHYSICAL EXAM: VITALS: PppknpAtzxROBrvfxSRNpS7PTD9CselBv(kg) 03/06 08:0236.4--398023OJ25/23 68.2 24 Hr Tmax: 36.4 at 03/06 [...] XR Shoulder Minimum 2 Views Right 11/29/24 [facility] 06-23-2025 Hospital Discharge instructions Patient Education [...] until you are awake and alert. Take ahou-wfi-xiddkso and prescription medicines only as told by [...] 06/21/2014 Document Revised: 08/13/2018 Document Reviewed: 12/20/2016 [employer] Patient Education 2020 [employer]. 03/06/2025 10:30:16 9 - AO Minor Esophagogastroduodenoscopy [...] MD Address: [address] [place] [phone] When: Unknown [facility] 06-23-2025 Note [facility] ADMISSION HISTORY AND PHYSICIAL CHIEF COMPLAINT: HISTORY OF PRESENT ILLNESS: REVIEW OF SYSTEMS: ACTIVE PROBLEMS: (85) Abnormal lung sounds (9877706962) Actinic keratosis (3433762256) Acute cholecystitis (912694610) Anemia (075890257) Anticoagulated on Coumadin (63131842) Atrial fibrillation (10838766) Biceps tendonitis on right (929649239) Blood loss anemia (4105645689) BMI 30.0-30.9,adult (341819586) BPH without urinary obstruction (7514369365) Chronic diastolic heart failure with preserved ejection fraction (2960916108) Chronic low back pain (997515304) Coronary atherosclerosis (1772026595) Cough (60883622) Diabetes mellitus with hyperglycemia (125838657) Diabetes mellitus with microalbuminuria (445480483) Diabetic nephropathy (5765714549) Diabetic peripheral neuropathy (5782552113) Diarrhea (135510309) Dry skin (63532412) Eustachian tube dysfunction (02191360) Exposure to COVID-19 virus (7607285778) Fatigue (355542489) Former smoker (83733832) GI bleed (248040781) Grief (918373653) Hair loss (771925048) History of lacunar cerebrovascular accident (CVA) (7741527785) Hospital discharge follow-up (0483375452) Hypercoagulable state due to atrial fibrillation (5351613100) Hypertension associated with diabetes (9876995449) 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 (239414963) Immunization declined (8566132891) Immunization refused (8536916251) Incisional hernia (608921068) Intermittent claudication (707689096) Leg edema (342811808) Lightheaded (8285429427) Low back pain (809875115) LVH (left ventricular hypertrophy) (47693407) LVH (left ventricular hypertrophy) due to hypertensive disease (7474246580) Marijuana use (1677318830) Medicare annual wellness visit, subsequent (694556547) Melena (8661158) Microalbuminuria (664122131) Need for hepatitis C screening test (287324654) Neoplasm of uncertain behavior (982360671) Obese (5730236643) Obstructive sleep apnea (276027018) Odynophagia (571426411) Osteoarthritis of lumbar spine (672779194) Osteoporosis screening (490262698) Prostate cancer screening (781907461) PVD (peripheral vascular disease) (1377073710) Right shoulder pain (02657129) S/P cholecystectomy (9151412164) S/P percutaneous endoscopic gastrostomy (PEG) tube placement (4553659775) Screening due (175851986) Screening for glaucoma (415201253) Seasonal affective disorder (949489476) Seborrheic keratoses (2791655138) Segmental and somatic dysfunction of cervical region (266352969) Segmental and somatic dysfunction of lower extremity (487302735) Segmental and somatic dysfunction of lumbar region (136036559) Segmental and somatic dysfunction of pelvic region (483556257) Segmental and somatic dysfunction of rib cage (688285823) Segmental and somatic dysfunction of sacral region (048390320) Segmental and somatic dysfunction of thoracic region (473431149) Segmental and somatic dysfunction of upper extremity (375135263) Skin lesion of face (2966467478) Skin mole (909557587) Skin tear of right lower leg without complication (5525570200) Somatic dysfunction of lower extremity (1545472447) 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) Stage 3b chronic kidney disease (CKD) (8667295703) Swelling of right foot (2220921167) Telangiectasia (674266832) Tendinitis of right infraspinatus tendon (053559435) Thrush (505829014) Tongue mass (5873726252) Transient cerebral ischemia (621330560) Type 2 diabetes mellitus with hyperlipidemia (164845729) Upper GI bleed (01425817) Ventricular premature complexes (173569863) Verruca vulgaris (65333798) MEDICATIONS: Active Inpt Meds: None Active PRN [...] FAMILY HISTORY: SOCIAL HISTORY: PHYSICAL EXAM: VITALS: TneymlHxsnUZSosdcTWRgH0EGQ0UzxrOe(kg) 03/06 11:00----445775KA47/23 68.2 03/06 10:40----146711LY 03/06 10:33----559265LB 03/06 10:2736.1--7431553 2.0L/m 03/06 10:20--------100-- 24 Hr Tmax: 36.4 [...] DAVIS ORDONEZ MD on 03/06/2025 11:08 AM [facility]06-23-2025 Note Date of Service 03/06/2025 Procedure Name EGD with guidewire dilatation Consent Taken before procedure Indication Patient with dysphagia and known esophageal stricture Location [facility] Pre-Procedure Exam Known stricture in the [...] guidewire dilatation using up to size 45 Slovenian 15 mm today. Findings Stricture in the [...] DAVIS ORDONEZ MD on 03/06/2025 10:33 AM [facility]06-23-2025 Note Discharge Instructions Thank you for allowing [facility] to assist you with your healthcare needs. The following is importantdischarge information regarding your hospital visit. Your Care Team LEXUS RIVERA DO, DR. What to do next Scheduled Follow-Up Appointments Appointment Type When With Where Contact Information StatusPC OV 04/04/2025 11:00 AM EDT LEXUS RIVERA DO [address] [address] Confirmed PC Office Procedure OMT 05/09/2025 08:30 AM EDT LEXUS RIVERA DO [address] [address] Confirmed PC Wellness Medicare 05/23/2025 09:00 AM EDT LEXUS RIVERA [address] [address] Confirmed PC Office Procedure OMT 06/13/2025 09:30 AM EDT LEXUS RIVERA [address] [address] Confirmed PC Office Procedure OMT 07/11/2025 08:30 AM EDT LEXUS RIVERA [address] [address] Confirmed PC Office Procedure OMT 08/08/2025 11:30 AM EST LEXUS RIVERA [address] [address] Confirmed Follow Up Appointments Follow Up with DAVIS ORDONEZ MD Where:[address] [place] [phone] Allergies metFORMIN (Moderate) dairrhea Medications Please ask [...] until you are awake and alert. Take vegy-fqi-nhfynqp and prescription medicines only as told by [...] 06/21/2014 Document Revised: 08/13/2018 Document Reviewed: 12/20/2016 [employer] Patient Education 2020 [employer] Esophagogastroduodenoscopy This is an endoscopic procedure [...] to receive it can visit one of [facility] vaccine clinics. There are many vaccine clinic locations within the [facility]. For locations and available times, please visit [email or web address] It is important to note that some COVID mobile vaccine clinics are held outdoors and may be canceled in rainy or stormy conditions. To learn more about pediatric vaccinations (ages 5-11), we invite you to visit the [facility] webpage. [email or web address] learn more about the COVID-19 vaccine, we invite you to visit the CDC website for a list of frequently asked questions.https://www.cdc.gov/coronavirus/2019-ncov/vaccines/faq.html [facility] Patient Portal Access Instructions: Stay connected with your healthcare team and access your personal medical information anytime with the [facility] Portal. Please follow the directions below to create your [employer] account: 1.Access the email account you provided upon registration to the hospital/physician office.2.Look for an invitation email from [facility].3.Open the email and access the invitation link: AcceptInvitation to [employer].4.Fill in the required gross to create your account. To access your account, visit [email or web address]. Click the blue button labeled Access Patient Portal and then log in with the username and password that you created in the steps above. You will be able to view your test results, lab results, a summary of your visits, upcoming appointments and more. There is also a convenient messaging option where you can send secure messages to your [employer]. In addition, you will have the ability to download any documents or summaries to your computer and/or send the information securely to a physician. Remember that your healthcare information is confidential, so carefully consider who you will allowto register on the [facility] Patient Portal for access to your information. You can also access the [facility] Patient Portal on the [facility] beth. Simply click on Patient Portal and then log into your account. If you would like to receive a full copy of your medical records, please contact the [facility] Medical Records Department by calling [phone], Thursday through Thursday between 8 a.m. and [...] Call your local pharmacy or go to http://bit.ly/[email or web address] to find one close to you.3.Make use of household items: Use cat litter or old coffee grounds to dispose medications if other options arenot available. Mix your drugs with these household products, seal them in an airtight container andthrow it into the garbage. Call [facility]: [phone] to be sure your drugs can be [...] am aware that I should contactmy doctor. Patient/Gas Examiner Signature: Date/Time: Relationship to Patient: Witness Name/Signature: Date/Time: [facility]06-23-2025 Note [facility] ADMISSION HISTORY AND PHYSICIAL CHIEF COMPLAINT: HISTORY OF PRESENT ILLNESS: REVIEW OF SYSTEMS: ACTIVE PROBLEMS: (85) Abnormal lung sounds (4850081497) Actinic keratosis (5004436341) Acute cholecystitis (037564131) Anemia (039361815) Anticoagulated on Coumadin (95785240) Atrial fibrillation (11647450) Biceps tendonitis on right (976321603) Blood loss anemia (6694178217) BMI 30.0-30.9,adult (376617732) BPH without urinary obstruction (3275451110) Chronic diastolic heart failure with preserved ejection fraction (1483059980) Chronic low back pain (650186031) Coronary atherosclerosis (3195880033) Cough (44246152) Diabetes mellitus with hyperglycemia (323285092) Diabetes mellitus with microalbuminuria (787520450) Diabetic nephropathy (9310461809) Diabetic peripheral neuropathy (3627435649) Diarrhea (028244920) Dry skin (92715715) Eustachian tube dysfunction (73730051) Exposure to COVID-19 virus (0354855223) Fatigue (737155785) Former smoker (04530446) GI bleed (163399830) Grief (478429977) Hair loss (878503306) History of lacunar cerebrovascular accident (CVA) ([id number]) Hospital discharge follow-up (0823448719) Hypercoagulable state due to atrial fibrillation (4425141350) Hypertension associated with diabetes (3044097911) 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 (303723260) Immunization declined (6761042681) Immunization refused (6026773404) Incisional hernia (224433778) Intermittent claudication (588869362) Leg edema (721758867) Lightheaded (0975772365) Low back pain (043736243) LVH (left ventricular hypertrophy) (80389779) LVH (left ventricular hypertrophy) due to hypertensive disease (7732916806) Marijuana use (9522547651) Medicare annual wellness visit, subsequent (129028042) Melena (8144801) Microalbuminuria (148431393) Need for hepatitis C screening test (686941765) Neoplasm of uncertain behavior (006080824) Obese (4324100555) Obstructive sleep apnea (586066187) Odynophagia (598258418) Osteoarthritis of lumbar spine (230793287) Osteoporosis screening (552022451) Prostate cancer screening (534476367) PVD (peripheral vascular disease) (8385011304) Right shoulder pain (99512842) S/P cholecystectomy (4685230008) S/P percutaneous endoscopic gastrostomy (PEG) tube placement (3924694448) Screening due (905689525) Screening for glaucoma (074601882) Seasonal affective disorder (772149019) Seborrheic keratoses (5954977623) Segmental and somatic dysfunction of cervical region (213124576) Segmental and somatic dysfunction of lower extremity (719927018) Segmental and somatic dysfunction of lumbar region (122064276) Segmental and somatic dysfunction of pelvic region (395928761) Segmental and somatic dysfunction of rib cage (760405157) Segmental and somatic dysfunction of sacral region (042321935) Segmental and somatic dysfunction of thoracic region (443881602) Segmental and somatic dysfunction of upper extremity (815660667) Skin lesion of face (6595993487) Skin mole (328932224) Skin tear of right lower leg without complication (8404066524) Somatic dysfunction of lower extremity (0661350022) Squamous cell carcinoma of epiglottis (5946177601) Stage 3b chronic kidney disease (CKD) (7064719579) Swelling of right foot (0649385082) Telangiectasia (862587652) Tendinitis of right infraspinatus tendon (826368369) Thrush (867536649) Tongue mass (6959289551) Transient cerebral ischemia (665675304) Type 2 diabetes mellitus with hyperlipidemia (219459786) Upper GI bleed (04960407) Ventricular premature complexes (647638018) Verruca vulgaris (74540074) MEDICATIONS: Active Inpt Meds: None Active PRN Meds: None One Time Meds: None Active IV Meds: Lactated Ringers Infusion 1,000 mL Start: 03/06/25 7:58:00 EDT, Rate: 20 mL/hr, 03/06/25 7:58:00 EDT ALLERGIES: (1) metFORMIN FAMILY HISTORY: SOCIAL HISTORY: PHYSICAL EXAM: VITALS: QgmzpnRuzsSENmonqLGAqY0OKO3KqqsXr(kg) 03/06 08:0236.4--857951BI69/23 68.2 24 Hr Tmax: 36.4 at 03/06 [...] DAVIS ORDONEZ MD on 03/06/2025 10:10 AM [facility]06[facility] Anesthesiology Consult note Patient: TYRELL REYES Age: 74 years Sex: Male : 1950 Associated Diagnoses: None Author: KIERRA FLANAGAN APRN-VICTORIAN LITERATURE PROFESSOR Preoperative Information Time of last food or [...] Medical Abnormal lung sounds / SNOMED CT 3029402367 / Confirmed Actinic keratosis / SNOMED CT 3509521037 / Confirmed Acute cholecystitis / SNOMED CT 881134714 / Confirmed Anemia / SNOMED CT 214967304 / Confirmed Blood loss anemia / SNOMED CT 1236493604 / Confirmed Anticoagulated on Coumadin / SNOMED CT 18599022 / Confirmed Atrial fibrillation / SNOMED CT 72059446 / Confirmed BPH without urinary obstruction / SNOMED CT 8879575266 / Confirmed Biceps tendonitis on right / SNOMED CT 149618075 / Confirmed BMI 30.0-30.9,adult / SNOMED CT 385849276 / Confirmed Thrush / SNOMED CT 846571147 / Confirmed Chronic diastolic heart failure with preserved ejection fraction / SNOMED CT 3848325007 / Confirmed Stage 3b chronic kidney disease (CKD) / SNOMED CT 6943901630 / Confirmed Chronic low back pain / SNOMED CT 857541265 / Confirmed Coronary atherosclerosis / SNOMED CT 7263030972 / Confirmed Cough / SNOMED CT 57649091 / Confirmed Diabetes mellitus with hyperglycemia / SNOMED CT 483909990 / Confirmed Diabetes mellitus with microalbuminuria / SNOMED CT 825822026 / Confirmed Diabetic peripheral neuropathy / SNOMED CT 9191263323 / Confirmed Diarrhea / SNOMED CT 996726266 / Confirmed Diabetic nephropathy / SNOMED CT 5864293127 / Confirmed Dry skin / SNOMED CT 21932074 / Confirmed Eustachian tube dysfunction / SNOMED CT 86647335 / Confirmed Leg edema / SNOMED CT 183156811 / Confirmed Former smoker / SNOMED CT 70734014 / Confirmed Exposure to COVID-19 virus / SNOMED CT 2409977444 / Confirmed Fatigue / SNOMED CT 002871663 / Confirmed Grief / SNOMED CT 908876953 / Confirmed S/P cholecystectomy / SNOMED CT 9294325158 / Confirmed History of lacunar cerebrovascular accident (CVA) / SNOMED CT 2355536415 / Confirmed S/P percutaneous endoscopic gastrostomy (PEG) tube placement / SNOMED CT 3419319039 / Confirmed Hypercoagulable state due to atrial fibrillation / SNOMED CT 5263860755 / Confirmed Hypertension associated with diabetes / SNOMED CT 8118753794 / Confirmed 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 / SNOMED CT 282199498 / Confirmed LVH (left ventricular hypertrophy) due to hypertensive disease / SNOMED CT 4406000517 / Confirmed Incisional hernia / SNOMED CT 572938411 / Confirmed Tendinitis of right infraspinatus tendon / SNOMED CT 281851063 / Confirmed Intermittent claudication / SNOMED CT 831542600 / Confirmed LVH (left ventricular hypertrophy) / SNOMED CT 49187332 / Confirmed Skin lesion of face / SNOMED CT 9042800887 / Confirmed Lightheaded / SNOMED CT 2730359792 / Confirmed Hair loss / SNOMED CT 231797450 / Confirmed Low back pain / SNOMED CT 463081395 / Confirmed Marijuana use / SNOMED CT 7439403259 / Confirmed Tongue mass / SNOMED CT 7979302789 / Confirmed Immunization declined / SNOMED CT 7225393293 / Confirmed Immunization refused / SNOMED CT 4101056622 / Confirmed Melena / SNOMED CT 0359132 / Confirmed Microalbuminuria / SNOMED CT 541858980 / Confirmed Neoplasm of uncertain behavior / SNOMED CT 022450100 / Confirmed Obese / SNOMED CT 2484703858 / Confirmed Obstructive sleep apnea / SNOMED CT 276841412 / Confirmed Osteoarthritis of lumbar spine / SNOMED CT 883008725 / Confirmed Osteoporosis screening / SNOMED CT 756006124 / Confirmed Prostate cancer screening / SNOMED CT 501187347 / Confirmed Medicare annual wellness visit, subsequent / SNOMED CT 815556802 / Confirmed Screening for glaucoma / SNOMED CT 697273223 / Confirmed PVD (peripheral vascular disease) / SNOMED CT 8798789140 / Confirmed Skin mole / SNOMED CT 482082836 / Confirmed Hospital discharge follow-up / SNOMED CT 4635637219 / Confirmed Screening due / SNOMED CT 967832332 / Confirmed Seasonal affective disorder / SNOMED CT 744033593 / Confirmed Seborrheic keratoses / SNOMED CT 6519769052 / Confirmed Segmental and somatic dysfunction of lumbar region / SNOMED CT 358071741 / Confirmed Segmental and somatic dysfunction of thoracic region / SNOMED CT 252759010 / Confirmed Segmental and somatic dysfunction of rib cage / SNOMED CT 470262089 / Confirmed Segmental and somatic dysfunction of cervical region / SNOMED CT 818376193 / Confirmed Segmental and somatic dysfunction of sacral region / SNOMED CT 301643710 / Confirmed Segmental and somatic dysfunction of pelvic region / SNOMED CT 793895043 / Confirmed Segmental and somatic dysfunction of lower extremity / SNOMED CT 995170739 / Confirmed Segmental and somatic dysfunction of upper extremity / SNOMED CT 365396452 / Confirmed Right shoulder pain / SNOMED CT 76395357 / Confirmed Somatic dysfunction of lower extremity / SNOMED CT 9137257780 / Confirmed Squamous cell carcinoma of epiglottis / SNOMED CT 5048967706 / Confirmed Odynophagia / SNOMED CT 303042552 / Confirmed Swelling of right foot / SNOMED CT 7319193517 / Confirmed Skin tear of right lower leg without complication / SNOMED CT 3243687763 / Confirmed Telangiectasia / SNOMED CT 578848046 / Confirmed Transient cerebral ischemia / SNOMED CT 233832419 / Confirmed Type 2 diabetes mellitus with hyperlipidemia / SNOMED CT 309392895 / Confirmed Upper GI bleed / SNOMED CT 77726390 / Confirmed Ventricular premature complexes / SNOMED CT 966429590 / Confirmed Verruca vulgaris / SNOMED CT 50849429 / Confirmed Need for hepatitis C screening test / SNOMED CT 180050904 / Confirmed, Active Problems (85) Abnormal lung [...] History: Hypertension Mother Procedure history: Vascular Surgery (79880564) on 11/12/2016 at 65 Years. Comments: 04/13/2019 15:34 Falguni Davenport LPN bilateral legs Heart Surgery ([id number]) on 01/25/2016 at 65 Years. Comments: 04/13/2019 15:30 Falguni Davenport LPN one stent Colonoscopy (680858172) on 12/28/2015 at 65 Years. Comments: 04/13/2019 15:35 LOGAN RíosFalguni mosley ERICK normal, repeat 10 years Circumcision ([id number]) on 02/19/2011 at 60 Years. Mastectomy (8323196364) on 03/16/2002 at 51 Years. Comments: 04/13/2019 15:35 LOGAN SortoFalguni ERICK left, subtotal Lumpectomy (8077424064). Comments: 04/13/2019 15:30 LOGAN Sorto Falguni ERICK bilateral Esophagogastroduodenoscopy (323317854). Insertion of feeding tube into duodenum (8418831189). Cholecystectomy (20481331). 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, Lives In 1st floor bedroom Current [...] Signs (last 24 hrs) Last Charted Temp Nixyjraq05.4 DegC (MAR 06 08:02) KMG464 mmHg (MAR 06 08:02) DBP62 mmHg (MAR 06 08:02) BMI23.54 (MAR 06 08:) Measurements from flowsheet : Measurements 03/06/2025 8:02 EDT Height 170.2 cm Height in inches 67 inch(es) Admission Weight 68.2 kg Weight Lbs 150 lb Weight Method Stated [place] Body Weight 66.12 kg BSA Admission 1.79 [...] Surgeon SN - CAt - Role Performed Production Sanitizer 1 SN - CAt - Role Performed Scrub 1 SN - CAt - Role Performed VICTORIAN LITERATURE PROFESSOR 03/06/2025 8:11 EDT Lactated Ringers Injection Begin Bag 1,000 mL mL 03/06/2025 8:02 EDT Designated Person #1 We May Share SHIRA Reyes [phone] Designated Person #1 Relationship Spouse Height 170.2 cm Height in inches 67 inch(es) Admission Weight 68.2 kg Weight Lbs 150 lb Weight Method Stated [place] Body Weight 66.12 kg BSA Admission 1.79 [...] Allergies Yes Anesthesia Extension Set Applied Yes Gold Stamper On Yes Consent Form Signed Yes Patient [...] Method Explanation, Printed materials Preferred Spoken Language Nigerien Preferred Written Language Nigerien Patient's Current Physicians Patient's Current Physicians Discharge [...] Note-Nursing Procedure/Therapy Intake . Assessment and Plan [place] Society of Anesthesiologists (ASA) physical status classification: Class III. Anesthetic Preoperative Plan Anesthetic technique: MAC. Postoperative pain management: Per surgeon. Informed consent: signed by patient. Digitally Signed by KIERRA FLANAGAN on 03/06/2025 10:01 AM [facility]06-16-2025 Hospital Discharge instructions Patient Education 02/27/2025 [...] before eating solid foods. General instructions Take jrwy-lyo-mzmrrcq and prescription medicines only as told by [...] 12/21/2016 Document Revised: 11/29/2018 Document Reviewed: 12/21/2016 [employer] Patient Education 2020 [employer]. Follow Up Care 02/24/2025 12:34:13 With:DAVIS ORDONEZ MD Address: [address] [place] [phone] When: Unknown [facility] 06-16-2025 Note Discharge Instructions Thank you for allowing [facility] to assist you with your healthcare needs. The following is importantdischarge information regarding your hospital visit. Your Care Team LEXUS RIVERA DO What to do next Scheduled Follow-Up Appointments Appointment Type When With Where Contact Information StatusPC Office Procedure OMT 02/28/2025 09:30AM EDT LEXUS RIVERA DO [address] [phone] Confirmed PC OV 04/04/2025 11:00 AM EDT LEXUS RIVERA DO [address] [phone] Confirmed PC Office Procedure OMT 05/09/2025 08:30 AM EDT LEXUS RIVERA DO [address] [address] Confirmed PC Wellness Medicare 05/23/2025 09:00 AM EDT LEXUS RIVERA DO [address] [address] Confirmed PC Office Procedure OMT 06/13/2025 09:30 AM EDT LEXUS RIVERA DO [address] [address] Confirmed PC Office Procedure OMT 07/11/2025 08:30 AM EDT LEXUS RIVERA DO [address] [address] Confirmed Follow Up Appointments Follow Up with DAVIS ORDONEZ MD Where:[address] [place] [phone] Allergies metFORMIN (Moderate) dairrhea Medications Please ask [...] before eating solid foods. General instructions Take pfyf-xep-qmdptij and prescription medicines only as told by [...] 12/21/2016 Document Revised: 11/29/2018 Document Reviewed: 12/21/2016 [employer] Patient Education 2020 [employer] Additional Information VACCINATE! IT SAVES LIVES! Members of the community who have not yet received the COVID-19 vaccine and would like to receive it can visit one of [facility] vaccine clinics. There are many vaccine clinic locations within the [facility]. For locations and available times, please visit [email or web address] It is important to note that some COVID mobile vaccine clinics are held outdoors and may be canceled in rainy or stormy conditions. To learn more about pediatric vaccinations (ages 5-11), we invite you to visit the [facility] webpage. [email or web address] learn more about the COVID-19 vaccine, we invite you to visit the CDC website for a list of frequently asked questions.https://www.cdc.gov/coronavirus/2019-ncov/vaccines/faq.html [employer] Patient Portal Access Instructions: Stay connected with your healthcare team and access your personal medical information anytime with the [facility] Patient Portal. Please follow the directions below to create your [employer] account: 1.Access the email account you provided upon registration to the hospital/physician office.2.Look for an invitation email from [facility].3.Open the email and access the invitation link: AcceptInvitation to [employer].4.Fill in the required gross to create your account. To access your account, visit [email or web address]. Click the blue button labeled Access Patient [...] who you will allowto register on the [facility] for access to your information. You can also access the [facility] on the [facility] beth. Simply click on Patient Portal and then log into your account. If you would like to receive a full copy of your medical records, please contact the [facility] Medical Records Department by calling [phone], Thursday through Thursday between 8 a.m. and [...] Call your local pharmacy or go to [email or web address] to find one close to you.3.Make use of household items: Use cat litter or old coffee grounds to dispose medications if other options arenot available. Mix your drugs with these household products, seal them in an airtight container andthrow it into the garbage. Call [facility]: [phone] to be sure your drugs can be [...] am aware that I should contactmy doctor. Patient/Gas Examiner Signature: Date/Time: Relationship to Patient: Witness Name/Signature: Date/Time: [facility]06-16[facility]2025 Note Date of Service 02/27/2025 Procedure Name EGD with guidewire dilatation Consent Taken before procedure Indication Patient with known stricture in the proximal esophagus status post radiation therapy Location [facility] Pre-Procedure Exam Esophageal stricture Procedural Sedation [...] DAVIS ORDONEZ MD on 02/27/2025 10:24 AM [facility]06-16-2025 Anesthesiology Consult note Patient: TYRELL REYES Age: 74 years Sex: Male : 1950 Associated Diagnoses: None Author: KIERRA FLANAGAN APRN-VICTORIAN LITERATURE PROFESSOR Preoperative Information Time of last food or [...] Medical Abnormal lung sounds / SNOMED CT 5820633562 / Confirmed Actinic keratosis / SNOMED CT 4543776194 / Confirmed Acute cholecystitis / SNOMED CT 002963442 / Confirmed Anemia / SNOMED CT 756975342 / Confirmed Blood loss anemia / SNOMED CT 7689077025 / Confirmed Anticoagulated on Coumadin / SNOMED CT 25120962 / Confirmed Atrial fibrillation / SNOMED CT 36704342 / Confirmed BPH without urinary obstruction / SNOMED CT 4136295643 / Confirmed Biceps tendonitis on right / SNOMED CT 704451995 / Confirmed BMI 30.0-30.9,adult / SNOMED CT 076235217 / Confirmed Thrush / SNOMED CT 129049619 / Confirmed Chronic diastolic heart failure with preserved ejection fraction / SNOMED CT 0018907853 / Confirmed Stage 3b chronic kidney disease (CKD) / SNOMED CT 7639946053 / Confirmed Chronic low back pain / SNOMED CT 505469118 / Confirmed Coronary atherosclerosis / SNOMED CT 7274933281 / Confirmed Cough / SNOMED CT 02428508 / Confirmed Diabetes mellitus with hyperglycemia / SNOMED CT 140819972 / Confirmed Diabetes mellitus with microalbuminuria / SNOMED CT 156014215 / Confirmed Diabetic peripheral neuropathy / SNOMED CT 9321421271 / Confirmed Diarrhea / SNOMED CT 958198635 / Confirmed Diabetic nephropathy / SNOMED CT 6076779601 / Confirmed Dry skin / SNOMED CT 41347418 / Confirmed Eustachian tube dysfunction / SNOMED CT 97842694 / Confirmed Leg edema / SNOMED CT 747329724 / Confirmed Former smoker / SNOMED CT 47399182 / Confirmed Exposure to COVID-19 virus / SNOMED CT 1383217952 / Confirmed Fatigue / SNOMED CT 547122251 / Confirmed Grief / SNOMED CT 736554143 / Confirmed S/P cholecystectomy / SNOMED CT 5486744577 / Confirmed History of lacunar cerebrovascular accident (CVA) / SNOMED CT 8002767845 / Confirmed S/P percutaneous endoscopic gastrostomy (PEG) tube placement / SNOMED CT 4388039858 / Confirmed Hypercoagulable state due to atrial fibrillation / SNOMED CT 6455447585 / Confirmed Hypertension associated with diabetes / SNOMED CT 7635537221 / Confirmed 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 / SNOMED CT 048013930 / Confirmed LVH (left ventricular hypertrophy) due to hypertensive disease / SNOMED CT 8984298626 / Confirmed Incisional hernia / SNOMED CT 779296544 / Confirmed Tendinitis of right infraspinatus tendon / SNOMED CT 294994042 / Confirmed Intermittent claudication / SNOMED CT 093562198 / Confirmed LVH (left ventricular hypertrophy) / SNOMED CT 97254913 / Confirmed Skin lesion of face / SNOMED CT 5166045251 / Confirmed Lightheaded / SNOMED CT 5664085865 / Confirmed Hair loss / SNOMED CT 484164459 / Confirmed Low back pain / SNOMED CT 021148340 / Confirmed Marijuana use / SNOMED CT 4848447376 / Confirmed Tongue mass / SNOMED CT 2321445092 / Confirmed Immunization declined / SNOMED CT 0331933993 / Confirmed Immunization refused / SNOMED CT 9390110570 / Confirmed Melena / SNOMED CT 4865473 / Confirmed Microalbuminuria / SNOMED CT 433095120 / Confirmed Neoplasm of uncertain behavior / SNOMED CT 016212237 / Confirmed Obese / SNOMED CT 9670569828 / Confirmed Obstructive sleep apnea / SNOMED CT 196354010 / Confirmed Osteoarthritis of lumbar spine / SNOMED CT 250613913 / Confirmed Osteoporosis screening / SNOMED CT 746401381 / Confirmed Prostate cancer screening / SNOMED CT 112615880 / Confirmed Medicare annual wellness visit, subsequent / SNOMED CT 899886615 / Confirmed Screening for glaucoma / SNOMED CT 013336088 / Confirmed PVD (peripheral vascular disease) / SNOMED CT 6701237343 / Confirmed Skin mole / SNOMED CT 810356903 / Confirmed Hospital discharge follow-up / SNOMED CT 3936459779 / Confirmed Screening due / SNOMED CT 424278503 / Confirmed Seasonal affective disorder / SNOMED CT 606322775 / Confirmed Seborrheic keratoses / SNOMED CT 9588340118 / Confirmed Segmental and somatic dysfunction of lumbar region / SNOMED CT 960621880 / Confirmed Segmental and somatic dysfunction of thoracic region / SNOMED CT 560067315 / Confirmed Segmental and somatic dysfunction of rib cage / SNOMED CT 317910477 / Confirmed Segmental and somatic dysfunction of cervical region / SNOMED CT 952383950 / Confirmed Segmental and somatic dysfunction of sacral region / SNOMED CT 954120712 / Confirmed Segmental and somatic dysfunction of pelvic region / SNOMED CT 111828588 / Confirmed Segmental and somatic dysfunction of lower extremity / SNOMED CT 016240901 / Confirmed Segmental and somatic dysfunction of upper extremity / SNOMED CT 603331771 / Confirmed Right shoulder pain / SNOMED CT 60359576 / Confirmed Somatic dysfunction of lower extremity / SNOMED CT 2036180167 / Confirmed Squamous cell carcinoma of epiglottis / SNOMED CT 4243504201 / Confirmed Odynophagia / SNOMED CT 123337797 / Confirmed Swelling of right foot / SNOMED CT 3620092360 / Confirmed Skin tear of right lower leg without complication / SNOMED CT 9617280447 / Confirmed Telangiectasia / SNOMED CT 800672689 / Confirmed Transient cerebral ischemia / SNOMED CT 648177625 / Confirmed Type 2 diabetes mellitus with hyperlipidemia / SNOMED CT 859950981 / Confirmed Upper GI bleed / SNOMED CT 04191895 / Confirmed Ventricular premature complexes / SNOMED CT 338607664 / Confirmed Verruca vulgaris / SNOMED CT 03454413 / Confirmed Need for hepatitis C screening test / SNOMED CT 834673467 / Confirmed, Active Problems (85) Abnormal lung [...] History: Hypertension Mother Procedure history: Vascular Surgery (03048648) on 11/12/2016 at 65 Years. Comments: 04/13/2019 15:34 Falguni Davenport LPN bilateral legs Heart Surgery ([id number]) on 01/25/2016 at 65 Years. Comments: 04/13/2019 15:30 Falguni Davenport LPN one stent Colonoscopy ([id number]) on 12/28/2015 at 65 Years. Comments: 04/13/2019 15:35 Falguni Davenport LPN normal, repeat 10 years Circumcision ([id number]) on 02/19/2011 at 60 Years. Mastectomy ([id number]) on 03/16/2002 at 51 Years. Comments: 04/13/2019 15:35 Falguni Davenport LPN left, subtotal Lumpectomy (6104298734). Comments: 04/13/2019 15:30 Falguni Davenport LPN bilateral Esophagogastroduodenoscopy (346654075). Insertion of feeding tube into duodenum (5580818766). Cholecystectomy (71382949). 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, Lives In 1st floor bedroom Current [...] Signs (last 24 hrs) Last Charted Temp Hkaytiel39.5 DegC (FEB 27 08:) Heart Rate Pcxdzd92 bpm (FEB 27 08:) SBPH 151 mmHg (FEB 27 08:) DBP62 mmHg (FEB 27:) BMI23.54 (FEB 27:) Measurements from flowsheet : Measurements 02/27/2025 8:26 EDT Height 170.2 cm Admission Weight 68.2 kg Weight Method Stated [place] Body Weight 66.12 kg BSA Admission 1.79 [...] Allergies Yes Anesthesia Extension Set Applied Yes Gold Stamper On Yes Consent Form Signed Yes Patient [...] Person #1 We May Share SHIRA Reyes [phone] Designated Person #1 Relationship Spouse Privacy Restrictions Requested None Height 170.2 cm Admission Weight 68.2 kg Weight Method Stated [place] Body Weight 66.12 kg BSA Admission 1.79 [...] Abdomen Description Non-distended Status N/A Skin Description [place] Skin Temperature Warm Skin Integrity Intact Skin [...] Method Explanation, Printed materials Preferred Spoken Language Nigerien Preferred Written Language Nigerien Patient's Current Physicians Patient's Current Physicians Discharge [...] Note-Nursing Procedure/Therapy Intake . Assessment and Plan [place] Society of Anesthesiologists (ASA) physical status classification: Class III. Anesthetic Preoperative Plan Anesthetic technique: MAC. Postoperative pain management: Per surgeon. Informed consent: signed by patient. Digitally Signed by KIERRA FLANAGAN APRN-KEON on 02/27/2025 09:50 AM [facility]06-13-[facility] Evaluation + Plan noteExtracted from: Title:Clinical Document Author:DAVIS ORDONEZ Date:02/24/25 [facility] ADMISSION HISTORY AN D PHYSICIAL CHIEF COMPLAINT: HISTORY OF PRESENT ILLNESS: REVIEW OF SYSTEMS: ACTIVE PROBLEMS: (85) Abnormal lung sounds (3869043915) Actinic keratosis (3017121455) Acute cholecystitis (876233658) Anemia (922419981) Anticoagulated on Coumadin (74493232) Atrial fibrillation (79158485) Biceps tendonitis on right (095412940) Blood loss anemia (3121117705) BMI 30.0-30.9,adult (417838534) BPH without urinary obstruction (9723626993) Chronic diastolic heart failure with preserved ejection fraction (6762207759) Chronic low back pain (556932642) Coronary atherosclerosis (1578958301) Cough (35906356) Diabetes mellitus with hyperglycemia (008634510) Diabetes mellitus with microalbuminuria (099483336) Diabetic nephropathy (5370616851) Diabetic peripheral neuropathy (8417051977) Diarrhea (185141004) Dry skin (05383851) Eustachian tube dysfunction (11002023) Exposure to COVID-19 virus (7831090092) Fatigue (336953437) Former smoker (38515642) GI bleed (882254768) Grief (294235803) Hair loss (734396571) History of lacunar cerebrovascular accident (CVA) (9354938114) Hospital discharge follow-up (8990792408) Hypercoagulable state due to atrial fibrillation (5042715927) Hypertension associated with diabetes (6191882689) 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 (332868842) Immunization declined (3469004096) Immunization refused (1738233295) Incisional hernia (248372390) Intermittent claudication (877328447) Leg edema (770797187) Lightheaded (0080479991) Low back pain (035384766) LVH (left ventricular hypertrophy) (79901549) LVH (left ventricular hypertrophy) due to hypertensive disease (0070535098) Marijuana use (2946080723) Medicare annual wellness visit, subsequent (390303221) Melena (4124746) Microalbuminuria (063542507) Need for hepatitis C screening test (966308094) Neoplasm of uncertain behavior (690030001) Obese (7902295319) Obstructive sleep apnea (432085205) Odynophagia (262342669) Osteoarthritis of lumbar spine (696516683) Osteoporosis screening (893647865) Prostate cancer screening (930373364) PVD (peripheral vascular disease) (9405203395) Right shoulder pain (75873467) S/P cholecystectomy (0146865208) S/P percutaneous endoscopic gastrostomy (PEG) tube placement (9768389020) Screening due (015498044) Screening for glaucoma (207161965) Seasonal affective disorder (719601012) Seborrheic keratoses (3932717723) Segmental and somatic dysfunction of cervical region (191626074) Segmental and somatic dysfunction of lower extremity (190228442) Segmental and somatic dysfunction of lumbar region (102463544) Segmental and somatic dysfunction of pelvic region (871687588) Segmental and somatic dysfunction of rib cage (613087380) Segmental and somatic dysfunction of sacral region (340308621) Segmental and somatic dysfunction of thoracic region (531161381) Segmental and somatic dysfunction of upper extremity (031631915) Skin lesion of face (4558107392) Skin mole (285678073) Skin tear of right lower leg without complication (3606281753) Somatic dysfunction of lower extremity (4905610199) Squamous cell carcinoma of epiglottis (4959261058) Stage 3b chronic kidney disease (CKD) (4168924001) Swelling of right foot (1892747212) Telangiectasia (146081403) Tendinitis of right infraspinatus tendon (381378708) Thrush (678498807) Tongue mass (5164917391) Transient cerebral ischemia (375079985) Type 2 diabetes mellitus with hyperlipidemia (522800807) Upper GI bleed (94099256) Ventricular premature complexes (471806928) Verruca vulgaris (33313418) MEDICATIONS: Active Inpt Meds: None Active PRN [...] FAMILY HISTORY: SOCIAL HISTORY: PHYSICAL EXAM: VITALS: JtctvbIvhhXJSoqmlGFGmT3HCH3OxdoTo(kg) 02/24 11:00----68--100--02/24 68.2 02/24 10:55----70--100-- 02/24 10:50----78--100-- 02/24 10:45----75--100-- 02/24 08:4736.1--148669OB 24 Hr Tmax: 36.1 at 02/24 08:47 36 Hr Tmax: 36.1 at 02/24 08:47 Vital Signs are the last 5 in the past 48 hours. Weights display the last 5 within 7 days. Initial Wt: 02/24 68.2 kg 150 lb Current Wt: 02/24 68.2 kg 150 lb GENERAL: HEENT: CARDIOVASCULAR: RESPIRATORY: ABDOMEN: EXREMETIES: NEUROLOGICAL: PSYCHIATRIC: LABS: 36hr Labs 02/24 0859 Blood Glucose, Jvoeafvld40 Blood Glucose, Oeaorgejk22 02/24 0845 Xfsnyxw09.5 PT International Ratio1.2 DIAGNOSTICS: IMPRESSION: PLAN: History [...] XR Shoulder Minimum 2 Views Right 11/29/24 [facility] 06-13-2025 Hospital Discharge instructions Patient Education [...] before eating solid foods. General instructions Take wxjs-ame-wlanlpa and prescription medicines only as told by [...] 12/21/2016 Document Revised: 11/29/2018 Document Reviewed: 12/21/2016 [employer] Patient Education 2020 [employer]. 02/24/2025 11:18:12 9 - AO Minor Esophagogastroduodenoscopy [...] Up Care 02/20/2025 13:17:39 With:DAVIS ORDONEZ Address: [address] [place] [phone] Business (1) When: Unknown [facility] 06-13-2025 Note* Exam Date Time Procedure Performing Provider Status 02/24/25 11:47 AM XR Fluoro < 1Hr Tech Time Modified [id number] ORIGINAL Images acquired, not reported on this accession number. [facility]06-13-2025 Note Discharge Instructions Thank you for allowing [facility] to assist you with your healthcare needs. The following is importantdischarge information regarding your hospital visit. Your Care Team LEXUS RIVERA DO What to do next Scheduled Follow-Up Appointments Appointment Type When With Where Contact Information StatusPC Office Procedure OMT 02/28/2025 09:30AM EDT LEXUS RIVERA DO [address] [address] Confirmed PC OV 04/04/2025 11:00 AM EDT LEXUS RIVERA [address] [address] Confirmed PC Office Procedure OMT 05/09/2025 08:30 AM EDT LEXUS RIVERA DO [address] [address] Confirmed PC Wellness Medicare 05/23/2025 09:00 AM EDT LEXUS RIVERA [address] [address] Confirmed PC Office Procedure OMT 06/13/2025 09:30 AM EDT LEXUS RIVERA [address] [address] Confirmed PC Office Procedure OMT 07/11/2025 08:30 AM EDT LEXUS RIVERA [address] [address] Confirmed Follow Up Appointments Follow Up with DAVIS ORDONEZ Where:[address] [place] [address]- [phone] Business (1) Allergies metFORMIN (Moderate) dairrhea Medications [...] before eating solid foods. General instructions Take evcb-bci-gmxdowc and prescription medicines only as told by [...] 12/21/2016 Document Revised: 11/29/2018 Document Reviewed: 12/21/2016 [employer] Patient Education 2020 [employer]. Esophagogastroduodenoscopy This is an endoscopic procedure (a [...] to receive it can visit one of [facility] vaccine clinics. There are many vaccine clinic locations within the [facility]. For locations and available times, please visit [email or web address].[email or web address] It is important to note that some COVID mobile vaccine clinics are held outdoors and may be canceled in rainy or stormy conditions. To learn more about pediatric vaccinations (ages 5-11), we invite you to visit the [facility] webpage. [email or web address] learn more about the COVID-19 vaccine, we invite you to visit the CDC website for a list of frequently asked questions.https://www.cdc.gov/coronavirus/2019-ncov/vaccines/faq.html [facility] Patient Portal Access Instructions: Stay connected with your healthcare team and access your personal medical information anytime with the [facility] Patient Portal. Please follow the directions below to create your [facility] account: 1.Access the email account you provided upon registration to the hospital/physician office.2.Look for an invitation email from [facility].3.Open the email and access the invitation link: AcceptInvitation to [facility]Share.4.Fill in the required gross to create your account. To access your account, visit [employer]. Click the blue button labeled Access Patient [...] who you will allowto register on the [facility] Patient Portal for access to your information. You can also access the [employer] Patient Portal on the [employer]where beth. Simply click on Patient Portal and then log into your account. If you would like to receive a full copy of your medical records, please contact the [facility] Medical Records Department by calling [phone], Thursday through Thursday between 8 a.m. and [...] Call your local pharmacy or go to [email or web address] [email or web address] to find one close to you.3.Make use of household items: Use cat litter or old coffee grounds to dispose medications if other options arenot available. Mix your drugs with these household products, seal them in an airtight container andthrow it into the garbage. Call [facility]: [phone] to be sure your drugs can be [...] been reviewed and explained to me and I,TYERLL REYES understand my current condition and have read and understand these discharge instructions. I have received a written copy of the plan/instructions. If I have questions, I am aware that I should contactmy doctor. 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/Gas Examiner Signature: Date/Time: Relationship to Patient: Witness Name/Signature: Date/Time: [facility]06-13-2025 Note Date of Service 02/24/2025 Procedure [...] DAVIS ORDONEZ MD on 02/24/2025 11:15 AM [facility]06-13-2025 Note [place] ADMISSION HISTORY AND PHYSICIAL CHIEF COMPLAINT: HISTORY OF PRESENT ILLNESS: REVIEW OF SYSTEMS: ACTIVE PROBLEMS: (85) Abnormal lung sounds (3325818131) Actinic keratosis (0562513923) Acute cholecystitis (929421434) Anemia (778450305) Anticoagulated on Coumadin (54719348) Atrial fibrillation (49433894) Biceps tendonitis on right (770609689) Blood loss anemia (9982776008) BMI 30.0-30.9,adult (730067415) BPH without urinary obstruction (9042383352) Chronic diastolic heart failure with preserved ejection fraction (3518409144) Chronic low back pain (450518488) Coronary atherosclerosis (9997670624) Cough (02863558) Diabetes mellitus with hyperglycemia (514717041) Diabetes mellitus with microalbuminuria (780479578) Diabetic nephropathy (6681806516) Diabetic peripheral neuropathy (7961913368) Diarrhea (365147546) Dry skin (87346341) Eustachian tube dysfunction (01523027) Exposure to COVID-19 virus (0263514373) Fatigue (980833948) Former smoker (46658817) GI bleed (784193059) Grief (962750222) Hair loss (043935948) History of lacunar cerebrovascular accident (CVA) (9078871797) Hospital discharge follow-up (0469782027) Hypercoagulable state due to atrial fibrillation (9798794007) Hypertension associated with diabetes (0024397641) 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 (133539749) Immunization declined (1526202421) Immunization refused (2776778305) Incisional hernia (131281950) Intermittent claudication (726412267) Leg edema (626316666) Lightheaded (1801041790) Low back pain (363170034) LVH (left ventricular hypertrophy) (25613988) LVH (left ventricular hypertrophy) due to hypertensive disease (1850636709) Marijuana use (0421453407) Medicare annual wellness visit, subsequent (334686042) Melena (8312349) Microalbuminuria (711471099) Need for hepatitis C screening test (435760722) Neoplasm of uncertain behavior (304650343) Obese (0224961857) Obstructive sleep apnea (881196395) Odynophagia (796890658) Osteoarthritis of lumbar spine (720714280) Osteoporosis screening (639933936) Prostate cancer screening (608163838) PVD (peripheral vascular disease) (8543522351) Right shoulder pain (32318495) S/P cholecystectomy (7592323426) S/P percutaneous endoscopic gastrostomy (PEG) tube placement (8758662558) Screening due (432093854) Screening for glaucoma (869028155) Seasonal affective disorder (184858964) Seborrheic keratoses (7297937272) Segmental and somatic dysfunction of cervical region (556807412) Segmental and somatic dysfunction of lower extremity (749190816) Segmental and somatic dysfunction of lumbar region (495970579) Segmental and somatic dysfunction of pelvic region (628709356) Segmental and somatic dysfunction of rib cage (146637708) Segmental and somatic dysfunction of sacral region (646116420) Segmental and somatic dysfunction of thoracic region (465109647) Segmental and somatic dysfunction of upper extremity (487189637) Skin lesion of face (4944397101) Skin mole (257601041) Skin tear of right lower leg without complication (0108499423) Somatic dysfunction of lower extremity (9740332373) Squamous cell carcinoma of epiglottis (3149928940) Stage 3b chronic kidney disease (CKD) (2238381433) Swelling of right foot (3256609422) Telangiectasia (237056234) Tendinitis of right infraspinatus tendon (219745406) Thrush (794742510) Tongue mass (1218460358) Transient cerebral ischemia (229815462) Type 2 diabetes mellitus with hyperlipidemia (621743114) Upper GI bleed (17389563) Ventricular premature complexes (004553090) Verruca vulgaris (46755724) MEDICATIONS: Active Inpt Meds: None Active PRN [...] FAMILY HISTORY: SOCIAL HISTORY: PHYSICAL EXAM: VITALS: ZeryqbDqulJNDmuzxBYItQ1TLA2UtimRe(kg) 02/24 11:00----68--100--02/24 68.2 02/24 10:55----70--100-- 02/24 10:50----78--100-- 02/24 10:45----75--100-- 02/24 08:4736.1--296964RU 24 Hr Tmax: 36.1 at 02/24 08:47 36 Hr Tmax: 36.1 at 02/24 08:47 Vital Signs are the last 5 in the past 48 hours. Weights display the last 5 within 7 days. Initial Wt: 02/24 68.2 kg 150 lb Current Wt: 02/24 68.2 kg 150 lb GENERAL: HEENT: CARDIOVASCULAR: RESPIRATORY: ABDOMEN: EXREMETIES: NEUROLOGICAL: PSYCHIATRIC: LABS: 36hr Labs 02/24 0859 Blood Glucose, Uhoncriee89 Blood Glucose, Jqbucjimw53 02/24 0845 Njzwxyk65.5 PT International Ratio1.2 DIAGNOSTICS: IMPRESSION: PLAN: History and Physical Update I have examined the patient; reviewed the H&P and there are no changes to the H&P unless noted below. Digitally Signed by DAVIS ORDONEZ MD on 02/24/2025 11:08 AM [facility]06-13-2025 Anesthesiology Consult note Patient: TYRELL REYES Age: 74 years Sex: Male : 1950 Associated Diagnoses: None Author: JAN ADAME APRN-VICTORIAN LITERATURE PROFESSOR Preoperative Information Anesthesia history Patient's history: negative. [...] Medical Abnormal lung sounds / SNOMED CT 0856140205 / Confirmed Actinic keratosis / SNOMED CT 3986571271 / Confirmed Acute cholecystitis / SNOMED CT 883543436 / Confirmed Anemia / SNOMED CT 036930770 / Confirmed Blood loss anemia / SNOMED CT 1463179496 / Confirmed Anticoagulated on Coumadin / SNOMED CT 65330817 / Confirmed Atrial fibrillation / SNOMED CT 32088842 / Confirmed BPH without urinary obstruction / SNOMED CT 6849654989 / Confirmed Biceps tendonitis on right / SNOMED CT 621234175 / Confirmed BMI 30.0-30.9,adult / SNOMED CT 544168441 / Confirmed Thrush / SNOMED CT 518720834 / Confirmed Chronic diastolic heart failure with preserved ejection fraction / SNOMED CT 6323758129 / Confirmed Stage 3b chronic kidney disease (CKD) / SNOMED CT 5462450115 / Confirmed Chronic low back pain / SNOMED CT 969628155 / Confirmed Coronary atherosclerosis / SNOMED CT 6733577046 / Confirmed Cough / SNOMED CT 28902804 / Confirmed Diabetes mellitus with hyperglycemia / SNOMED CT 037633941 / Confirmed Diabetes mellitus with microalbuminuria / SNOMED CT 039238942 / Confirmed Diabetic peripheral neuropathy / SNOMED CT 7657166640 / Confirmed Diarrhea / SNOMED CT 899564201 / Confirmed Diabetic nephropathy / SNOMED CT 1243689805 / Confirmed Dry skin / SNOMED CT 81233654 / Confirmed Eustachian tube dysfunction / SNOMED CT 08237203 / Confirmed Leg edema / SNOMED CT 165648260 / Confirmed Former smoker / SNOMED CT 03299249 / Confirmed Exposure to COVID-19 virus / SNOMED CT 8398539012 / Confirmed Fatigue / SNOMED CT 153410593 / Confirmed Grief / SNOMED CT 239103415 / Confirmed S/P cholecystectomy / SNOMED CT 2980585503 / Confirmed History of lacunar cerebrovascular accident (CVA) / SNOMED CT 0210143861 / Confirmed S/P percutaneous endoscopic gastrostomy (PEG) tube placement / SNOMED CT 3922493922 / Confirmed Hypercoagulable state due to atrial fibrillation / SNOMED CT 8791798319 / Confirmed Hypertension associated with diabetes / SNOMED CT 1212794333 / Confirmed 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 / SNOMED CT 396626701 / Confirmed LVH (left ventricular hypertrophy) due to hypertensive disease / SNOMED CT 8499545940 / Confirmed Incisional hernia / SNOMED CT 018989110 / Confirmed Tendinitis of right infraspinatus tendon / SNOMED CT 415464304 / Confirmed Intermittent claudication / SNOMED CT 632743808 / Confirmed LVH (left ventricular hypertrophy) / SNOMED CT 78305720 / Confirmed Skin lesion of face / SNOMED CT 8989627401 / Confirmed Lightheaded / SNOMED CT 2399016529 / Confirmed Hair loss / SNOMED CT 302898588 / Confirmed Low back pain / SNOMED CT 592283247 / Confirmed Marijuana use / SNOMED CT 7748899867 / Confirmed Tongue mass / SNOMED CT 8685472259 / Confirmed Immunization declined / SNOMED CT 4383508034 / Confirmed Immunization refused / SNOMED CT 9706878950 / Confirmed Melena / SNOMED CT 8661643 / Confirmed Microalbuminuria / SNOMED CT 923067519 / Confirmed Neoplasm of uncertain behavior / SNOMED CT 983098798 / Confirmed Obese / SNOMED CT 0432710346 / Confirmed Obstructive sleep apnea / SNOMED CT 397319380 / Confirmed Osteoarthritis of lumbar spine / SNOMED CT 455562173 / Confirmed Osteoporosis screening / SNOMED CT 667699811 / Confirmed Prostate cancer screening / SNOMED CT 811877068 / Confirmed Medicare annual wellness visit, subsequent / SNOMED CT 201634101 / Confirmed Screening for glaucoma / SNOMED CT 871682634 / Confirmed PVD (peripheral vascular disease) / SNOMED CT 9940815176 / Confirmed Skin mole / SNOMED CT 792915760 / Confirmed Hospital discharge follow-up / SNOMED CT 3340138669 / Confirmed Screening due / SNOMED CT 410895484 / Confirmed Seasonal affective disorder / SNOMED CT 380311813 / Confirmed Seborrheic keratoses / SNOMED CT 4563952383 / Confirmed Segmental and somatic dysfunction of lumbar region / SNOMED CT 905055056 / Confirmed Segmental and somatic dysfunction of thoracic region / SNOMED CT 712092481 / Confirmed Segmental and somatic dysfunction of rib cage / SNOMED CT 202885522 / Confirmed Segmental and somatic dysfunction of cervical region / SNOMED CT 580523236 / Confirmed Segmental and somatic dysfunction of sacral region / SNOMED CT 753754714 / Confirmed Segmental and somatic dysfunction of pelvic region / SNOMED CT 787791483 / Confirmed Segmental and somatic dysfunction of lower extremity / SNOMED CT 164996416 / Confirmed Segmental and somatic dysfunction of upper extremity / SNOMED CT 306755498 / Confirmed Right shoulder pain / SNOMED CT 19047194 / Confirmed Somatic dysfunction of lower extremity / SNOMED CT 7157982356 / Confirmed Squamous cell carcinoma of epiglottis / SNOMED CT 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 / Confirmed Odynophagia / SNOMED CT 593323369 / Confirmed Swelling of right foot / SNOMED CT 3035013712 / Confirmed Skin tear of right lower leg without complication / SNOMED CT 2581775673 / Confirmed Telangiectasia / SNOMED CT 701467564 / Confirmed Transient cerebral ischemia / SNOMED CT 779378253 / Confirmed Type 2 diabetes mellitus with hyperlipidemia / SNOMED CT 782075626 / Confirmed Upper GI bleed / SNOMED CT 60049054 / Confirmed Ventricular premature complexes / SNOMED CT 881163774 / Confirmed Verruca vulgaris / SNOMED CT 35165980 / Confirmed Need for hepatitis C screening test / SNOMED CT 079890245 / Confirmed, Active Problems (85) Abnormal lung [...] History: Hypertension Mother Procedure history: Vascular Surgery (39395884) on 11/12/2016 at 65 Years. Comments: 04/13/2019 15:34 Falguni Davenport LPN bilateral legs Heart Surgery (453959584) on 01/25/2016 at 65 Years. Comments: 04/13/2019 15:30 Falguni Davenport LPN one stent Colonoscopy (697654361) on 12/28/2015 at 65 Years. Comments: 04/13/2019 15:35 Falguni Davenport LPN normal, repeat 10 years Circumcision (790941848) on 02/19/2011 at 60 Years. Mastectomy (5379136661) on 03/16/2002 at 51 Years. Comments: 04/13/2019 15:35 Falguni Davenport LPN left, subtotal Lumpectomy (4727135148). Comments: 04/13/2019 15:30 Falguni Davenport LPN bilateral Esophagogastroduodenoscopy (449063272). Insertion of feeding tube into duodenum (3559374504). Cholecystectomy (78299550). Social History: Social & Psychosocial Habits Alcohol 02/24/2025 Use: Past Type: Liquor Frequency: 3-5 times per week Comment: 1 - 3 oz whiskey - 11/02/2019 08:30 - [employer], [place] [facility]; hasn't since Thursday - 10/09/2020 09:17 - Laury Murillo LPN Substance Abuse 02/24/2025 Use: Current Type: Marijuana Frequency: Daily Comment: 1-2 times daily - 11/02/2019 08:30 - [employer], [place] [facility]; hasn't since Thursday - 10/09/2020 09:17 - Laury Murillo LPN Tobacco 02/24/2025 Tobacco Use: Former smoker, quit more Type: Cigarettes Number of years: 30 Stopped at age: 44 Years Home/Environment 02/24/2025 Living situation: Home with assistance Other risks in environment: no smoke exposure Domestic Concerns None Primary Casing Crew: Self, Lives In 1st floor bedroom Current [...] Signs (last 24 hrs) Last Charted Temp Udwsrwgq02.1 DegC (FEB 24 08:47) Heart Rate Uookar00 bpm (FEB 24 08:47) SBPH 147 mmHg (FEB 24 08:47) DBP66 mmHg (FEB 24 08:47) BMI23.54 (FEB 24 08:47) Measurements from flowsheet : Measurements 02/24/2025 8:47 EDT Height 170.2 cm Admission Weight 68.2 kg Weight Method Stated [place] Body Weight 66.12 kg BSA Admission 1.79 [...] Allergies Yes Anesthesia Extension Set Applied Yes Gold Stamper On Yes Consent Form Signed Yes Patient [...] Person #1 We May Share SHIRA Reyes [phone] Designated Person #1 Relationship Spouse Height 170.2 cm Admission Weight 68.2 kg Weight Method Stated [place] Body Weight 66.12 kg BSA Admission 1.79 [...] All Quadrants Present Status N/A Skin Description [place], Dry Skin Temperature Warm Skin Integrity Intact [...] Method Explanation, Printed materials Preferred Spoken Language Nigerien Preferred Written Language Nigerien Patient's Current Physicians Patient's Current Physicians Discharge [...] Ratio 1.2 NA . Assessment and Plan [place] [employer] Anesthesiologists (ASA) physical status classification: Class IV. Anesthetic Preoperative Plan Anesthetic technique: MAC. Postoperative pain management: Per surgeon. Risks discussed: sore throat, serious complications. Informed consent: signed by patient. Digitally Signed by JAN ADAME on 02/24/2025 09:52 AM [facility]06-04-2025 Evaluation note* Diagnosis Onset Date Resolution Status Admit Date Carcinoma of epiglottis acute J 2024 11:25am Mediastinal lymphadenopathy chronic February 15, 2025 11:25am Atherosclerosis of coronary artery of [place] heart without angina pectoris chronic March 02, 2025 8:59am Hyperlipidemia chronic March 02, 2025 8:59am Hypertension chronic March 02, 025 8:59am Paroxysmal atrial fibrillation chron ic March 02, 2025 8:59am Peripheral vascular occlusiv e disease chronic March 02, 2025 8:59am [facility] Work Phone: [phone]) 275-714906-04-2025 Progress [facility] [address] [place] [address] OFFICE VISIT Date of Service: 02/15/251127 MR#: [id number] Acct: [id number] Name: TYRELL REYES Rep #: [id number] : 1950 From: Riki cunningham DO Age/Sex: 74/M [place] [facility] [place]: Signed Intake Vital Signs 11/14/24 14:16 [...] disease Hyperlipidemia Atherosclerosis of coronary artery of [place] heart without angina pectoris Stenosis of left [...] any time. ? Riki Lizama DO, MS Network Support Technician, Department of Radiation Oncology [facility] Coding Level of Care Code Off vis,est,level 3 Diagnoses Mediastinal lymphadenopathy R59.0 Carcinoma of epiglottis C32.1 02/15/25 1205 DO> Date _ Riki Lizama DO Cosigner Signature: Date (if applicable) CC: ~ [facility]06-03-2025 Radiology Diagnostic study note [facility] Imaging Services [address] [place] [address] Chest WITH Contrast MR#: [id number] Acct: [id number] Name: TYRELL REYES Rep #: [id number] : 1950 M 74 From: Keara Davis MD PCP: Dr. Lexus Rivera, DO Status: REG CLI Study:Chest WITH Contrast Date of Exam: 02/13/25 Exam# [id number] Ordering Dr: Riki Lizama DO PROCEDURE: CHEST [...] cyst. Moderate coronary artery calcifications. Reading Location: [place] [address] CC: Dr. Lexus Rivera DO; Dr. Riki Lizama DO ~ Workforce Management Coordinator: Signed [facility]06-03-2025 Radiology Diagnostic study note [facility] Imaging Services [address] [place] [address] Soft Tissue Neck WITH Contrast MR#: [id number] Acct: [id number] Name: TYRELL REYES Rep #: [id number] : 1950 M 74 From: Keara Davis MD PCP: Dr. Lexus Rivera DO Status: REG CLI Study:Soft Tissue Neck WITH Contrast Date of Exam: 02/13/25 Exam# [id number] Ordering Dr: Riki Lizama DO PROCEDURE: SOFT [...] cells. Normal bilateral parotid glands. Normal bilateral soap slabber spaces. Normal bilateral parapharyngeal spaces. Normal bilateral [...] Rivera DO; Dr. Riki Lizama DO ~ Workforce Management Coordinator: Signed [facility]03-03-2025 Evaluation note* Diagnosis Onset Date Resolution Status Admit Date Carcinoma of epiglottis acute M 2024 10:00am Mediastinal lymphadenopathy chronic November 14, 2024 10:00am Mediastinal lymphadenopathy chronic November 25, 2024 8:52am Nicotine dependence, cigaret rocky, in remission chronic November 25, 2024 8:52am Carcinoma of epiglottis acute J 2024 11:25am Mediastinal lymphadenopathy chronic February 15, 2025 11:25am Atherosclerosis of coronary artery of [place] heart without angina pectoris chronic March 02, 2025 8:59am Hyperlipidemia chronic March 02, 2025 8:59am Hypertension chronic March 02, 2 025 8:59am Paroxysmal atrial fibrillation chron ic March 02, 2025 8:59am Peripheral vascular occlusiv e disease chronic March 02, 2025 8:59am [facility] Work Phone: [phone] 721-542902-21-2025 Evaluation note* Diagnosis Onset Date Resolution Status Admit Date Mediastinal lymphadenopathy chronic November 04, 2024 10:01am Carcinoma of epiglottis acute M arch 2024 10:00am Mediastinal lymphadenopathy chronic November 14, 2024 10:00am Mediastinal lymphadenopathy chronic November 25, 2024 8:52am Nicotine dependence, cigarettes, in remission chronic November 122024 8:52am Carcinoma of epiglottis acute J une 2024 11:25am Mediastinal lymphadenopathy chronic February 15, 2025 11:25am [facility] [email or web address] Work Phone: 1(707) 927-628602-21-2025 Evaluation note* Diagnosis Onset Date Resolution Status [...] 2025 11:25am Atherosclerosis of coronary artery of [place] heart without angina pectoris chronic March 02, 2025 8:59am Hyperlipidemia chronic March 02, 2025 8:59am Hypertension chronic March 02 2 025 8:59am Paroxysmal atrial fibrillation chron ic March 02, 2025 8:59am Peripheral vascular occlusiv e disease chronic March 02, 2025 8:59am [facility] [employer] [facility] Work Phone: 1(156) 974-819202-17-2025 [facility] Medical Records Department [address] [place] [address] History Physical Exam 10/31/24 1303 MR#: [id number] Acct: [id number] Name: REYESTYRELL Rep #: [id number] : 1950 73 From: Terence Alba DO PCP: Dr. Lexus Rivera, DO Status:REG [facility] Location: [place] [address]- HPI - General HPI Narrative The patient [...] via EBUS. The patient has an approximate [id number]-[id number] smoking history, having quit completely 30 years ago. He has never been evaluated by a net c developer, nor has he ever completed pulmonary function [...] weight and appetite have been relatively stable. [facility] Medical History CPAP (continuous positive airway pressure) [...] disease Hyperlipidemia Atherosclerosis of coronary artery of [place] heart without angina pectoris Stenosis of left [...] normocephalic and head/scalp atra (more content not included)...[facility]12-16-2024 Evaluation note* Diagnosis Onset Date Resolution Status Admit Date Atherosclerosis of coronary artery of [place] heart without angina pectoris chronic August 29, [...] cigarettes, in remission chronic November 122024 8:52am [facility] Work Phone: 1(841) 101-403105-06-2024 Procedure [facility] 01-11-2024 Hospital Discharge instructionsAmbulatory Orders* 12 Lead EKG [[facility]] Time Frame: 01/11/24, Location: None Selected [facility] Work Phone: 1(325) 569-321301-07-2024 Hospital Discharge instructions Additional Instructions Your INR tonight is 9.8. You have been given a dose of vitamin K to help reverse this. Please hold your warfarin (Coumadin). Please call Dr. Rivera's office on Thursday. He will need an INR recheck on Thursday.[facility] Work Phone: [phone]) 625-197410-12-2023 Note. MICRO - Microbiology PROCEDURE: Urine Culture [...] Locations *1: This test was performed at: [facility], [address] [place] [address], [address]- , formerly [facility] ([place])01-15-2023 Discharge summary Author Randy Carrillo [facility] January 15, 2023 10:34am Note Date/Time January 15, 2023 10:34a m [facility] Physical Therapy [facility] [address] [place] [address] / REHABILITATION SERVICES DISCHARGE SUMMARY MR#: [id number] Acct: [id number] Name: TYRELL REYES Rep #: [id number] : 1950 72 From: Randy yu Referring Dr.: Dr. Lexus Rivera DO Status: REG RCR Insurance: MEDICARE PART A B [facility] It has been my pleasure to [...] please feel free to call me at [phone]. Thank you for the referral of this patient. Sincerely, Randy Carrillo Balance/Gait/Functional tests - Balance/Special Test Scores Oswestry Low Back Score: 31 TUG Test Time Seconds: 17 Tug Test: <20 sec.=mostly independent 30 Second Chair Rise Test Seconds: 8 <Electronically signed by Randy Carrillo > 01/15/23 1034 CC: Dr. Lexus Rivera, ~ NRN Signed [facility] Work Phone: [phone]) 729-804403-15-2021 NoteHNO ID: [id number] Author: Patti Luciano Service: ? Author Type: [...] and ROS obtained by others. Patti Luciano, [facility]02-15-2021 NoteHNO ID: [id number] Author: Patti Luciano Service: ? Author Type: Physician Type: Progress Notes Filed: 10/31/2020 8:47 AM Note Text: FOLLOW UP VISIT - CHOLECYSTECTOMY ? NAME: Tyrell R [facility] NO.: [id number] DATE OF SERVICE: 10/29/2020 ? : 1950 [...] care. ? ? ? Patti Luciano MD ?[facility]02-08-2021 NoteHNO ID: [id number] Author: Patti Gracewilfrid Luciano Service: ? Author Type: Physician Type: Progress Notes Filed: 10/27/2020 11:53 AM Note Text: FOLLOW UP VISIT - CHOLECYSTECTOMY NAME: Tyrell Lagunas Reyes [facility] NO.: [id number] DATE OF SERVICE: 10/22/2020 : 1950 REFERRING [...] primary physician for medical care. Patti Luciano [facility] Author Elton Sanchez [facility] January 18, 2024 7:58am Note Date/Time January 18, 2024 7:41am [facility] Medical Records Department [address] [place] [address] Discharge Summary 01/18/24 0741 MR#: [id number] Acct: [id number] Name: TYRELL REYES Rep #:[id number] : 1950 73 From: Elton Sanchez MD PCP: Dr. Lexus Rivera, Status:[facility] Location: [place] [address] Providers Primary Care Physician: Dr. Lexus Rivera [...] MD; Dr. Lexus Rivera DO ~* Signed [facility] Work Phone: Evaluation + Plan note Future Appointments Appointment Date:07/28/2023 10:00:00 AM Scheduled Provider:LEXUS RIVERA DO Location:[facility] Appointment Type:PC Office Procedure OMT Appointment Date:08/25/2023 09:30:00 AM Scheduled Provider:LEXUS RIVERA DO Location:[facility] Appointment Type:PC Office Procedure OMT Appointment Date:09/29/2023 09:00:00 AM Scheduled Provider:LEXUS RIVERA DO Location:[facility] Appointment Type:PC Office Procedure OMT Appointment Date:11/03/2023 08:30:00 AM Scheduled Provider:LEXUS RIVERA DO Location:[facility] Appointment Type:PC Office Procedure OMT Appointment Date:12/01/2023 09:30:00 AM Scheduled Provider:LEXUS RIVERA DO Location:[facility] Appointment Type:PC Office Procedure OMT Appointment Date:12/29/2023 09:00:00 AM Scheduled Provider:LEXUS RIVERA DO Location:[facility] Appointment Type:PC Office Procedure OMT [facility] evaluation + Plan note Future Appointments [...] DO Location:[facility] Appointment Type:PC Wellness Medicare [facility] evaluation + Plan note Future Appointments [...] Date:11/01/2024 11:30:00 AM Scheduled Provider:LEXUS RIVERA DO Location:[facility] Appointment Type:PC OV Appointment Date:11/29/2024 08:00:00 AM Scheduled Provider:LEXUS RIVERA DO Location:[facility] Appointment Type:PC Office Procedure OMT Future Scheduled Tests Laboratory* Hepatic Function Panel 05/17/24 * Thyroid Stimulating Hormone 05/17/24 * Free T4 05/17/24 * Complete Blood Count 05/17/24 * Lipid Profile 05/17/24 * Albumin/Creatinine Ratio, Random Urine 05/17/24 * Renal Function Panel 05/17/24 * Vitamin D Level 05/17/24 [facility] Evaluation + Plan note Future Appointments [...] XR Shoulder Minimum 2 Views Right 11/29/24 [facility] Evaluation + Plan note Future Appointments Appointment Date:05/09/2025 08:30:00 AM Scheduled Provider:LEXUS RIVERA DO Location:[facility] Appointment Type:PC Office Procedure OMT Appointment Date:05/23/2025 09:00:00 AM Scheduled Provider:LEXUS RIVERA DO Location:[facility] Appointment Type:PC Wellness Medicare Appointment Date:06/07/2025 11:00:00 AM Scheduled Provider:LEXUS RIVERA DO Location[facility] Appointment Type:PC Office Procedure OMT Appointment Date:07/11/2025 08:30:00 AM Scheduled Provider:LEXUS RIVERA DO Location:[facility] Appointment Type:PC Office Procedure OMT Appointment Date:08/08/2025 11:30:00 AM Scheduled Provider:LEXUS RIVERA DO Location:[facility] Appointment Type:PC Office Procedure OMT Appointment Date:09/05/2025 10:00:00 AM Scheduled Provider:LEXUS RIVERA DO Location:[facility] Appointment Type:PC Office Procedure OMT Future Scheduled Tests Radiology* XR Shoulder Minimum 2 Views Right 11/29/24 [facility] evaluation noteNo assessment information available [facility] Work Phone: evaluation note* Diagnosis Onset Date Resolution Status Atherosclerosis of coronary artery of [place] heart without angina pectoris chronic Chronic diastolic (congestive) heart failure chronic Hyperlipidemia chronic Hypertension chronic Paroxysmal atrial fibrillation chronic Peripheral vascular occlusive disease [facility] Work Phone: evaluation note* Diagnosis Onset Date Resolution Status Chest pain acute Dyspnea acute Atherosclerosis of coronary artery of [place] heart without angina pectoris chronic Chronic diastolic (congestive) heart failure chronic Hypertension chronic Paroxysmal atrial fibrillation chronic Peripheral vascular occlusive disease [facility] Work Phone: evaluation note* Diagnosis Onset Date Resolution Status Chest pain acute Dyspnea acute Atherosclerosis of coronary artery of [place] heart without angina pectoris chronic Chronic diastolic (congestive) heart failure chronic Hypertension chronic Paroxysmal atrial fibrillation chronic Peripheral vascular occlusive disease chronic Chest pain acute Atherosclerosis of coronary artery of [place] heart without angina pectoris chronic Chronic diastolic (congestive) heart failure chronic Hypertension chronic Paroxysmal atrial fibrillation chronic Peripheral vascular occlusive disease [facility] Work Phone: evaluation note* Diagnosis Onset Date Resolution Status Chest pain acute Atherosclerosis of coronary artery of [place] heart without angina pectoris chronic Chronic diastolic (congestive) heart failure chronic Hypertension chronic Paroxysmal atrial fibrillation chronic Peripheral vascular occlusive disease [facility] Work Phone: evaluation note* Diagnosis Onset Date Resolution Status Atherosclerosis of coronary artery of [place] heart without angina pectoris chronic Hyperlipidemia chronic Hypertension chronic Paroxysmal atrial fibrillation chronic Peripheral vascular occlusive disease [facility] Work Phone: Evaluation note* Diagnosis Onset Date Resolution Status Dyspnea acute Atherosclerosis of coronary artery of [place] heart without angina pectoris chronic Hyperlipidemia chronic Hypertension chronic Paroxysmal atrial fibrillation chronic Peripheral vascular occlusive disease chronic [facility] Work Phone: Evaluation note* Diagnosis Onset Date Resolution Status Dyspnea acute Atherosclerosis of coronary artery of [place] heart without angina pectoris chronic Hyperlipidemia chronic Hypertension chronic Paroxysmal atrial fibrillation chronic Peripheral vascular occlusive disease chronic Carcinoma of epiglottis acut e [facility] Work Phone: Hospital course Narrative No data available for this section [facility] Hospital Discharge instructions No data available for this section [facility] Progress note No data available for this section [facility] note Author Riki Lizama [facility] Note Date/Time February 15, 2025 12:05 pm [facility] [address] [place] [address] OFFICE VISIT Date of Service: 02/15/258 MR#: [id number] Acct: [id number] Name: TYRELL REYES Rep #: [id number] : 1950 From: Riki cunningham DO Age/Sex: 74/M [place] [facility] Status: Signed Intake Vital Signs 11/14/24 14:16 [...] disease Hyperlipidemia Atherosclerosis of coronary artery of [place] heart without angina pectoris Stenosis of left [...] any time. ? Riki Lizama DO, MS Network Support Technician, Department of Radiation Oncology [facility] Coding Level of Care Code Off vis,est,level 3 Diagnoses Mediastinal lymphadenopathy R59.0 Carcinoma of epiglottis C32.1 02/15/25 1205 <Electronically signed by Riki Lizama DO> Date _ Riki Lizama DO Cosigner Signature: Date (if applicable) CC: ~ [facility] Work Phone: Reason for referral (narrative)No reason for referral information availableWMercy Health St[facility] Work Phone: Summary Purpose Family History No [...] Will Yes October 13 4:46pm Power of Web Development Instructor No October 13, 2020 4:46pm Advance Directive Response Recorded Date/ Time Advance Directives No February 27 3:16pm Living Will Yes October 13 3:46pm Power of Web Development Instructor No October 13, 2020 3:46pm Advance Directive Response Recorded Date/ Time Advance Directives No February 27 3:16pm Living Will No September 15 10:49am Power of Web Development Instructor No September 15 023 10:49am Advance Directive Response Recorded Date/ Time Advance Directives No February 27 4:16pm Living Will No September 15 3 11:49am Power of Web Development Instructor No September 15 023 11:49am Advance Directive Response Recorded Date/ Time Advance Directives No February 27 3:16pm Living Will Yes September 20 12:05am Power of Web Development Instructor Yes September 20 12:05am Name of Medical Power of Web Development Instructor caity ceballos madonna September 20, 2023 12:05am Advance Directive Response Recorded Date/ Time Name of Medical Power of Web Development Instructor caity ceballos madonna September 20, 2023 12:05am Advance Directives No February 27 3:16pm Living Will Yes September 20 12:05am Power of Web Development Instructor Yes September 20 12:05am Advance Directive Response Recorded Date/ Time Name of Medical Power of Web Development Instructor caity ceballos madonna September 20, 2023 1:05am Advance Directives No February 27 4:16pm Living Will Yes September 20 1:05am Power of Web Development Instructor Yes September 20, 1:05am Advance Directive Response Recorded Date/ Time Name of Medical Power of Web Development Instructor caity ecballos September 20, 2023 1:05am Advance Directives No February 27 4:16pm Living Will Yes January 08, 2024 11:07am Power of Web Development Instructor Yes January 07 11:07am Advance Directive Response Recorded Date/ Time Name of Medical Power of Web Development Instructor caity ceballos September 20, 2023 1:05am Name of Medical Power of Web Development Instructor KACY BARRAZA January 08, 2024 11:07am Advance Directives No February 27 4:16pm Living Will Yes January 08, 2024 11:07am Power of Web Development Instructor Yes January 07 11:07am Advance Directive Response Recorded Date/ Time Living Will No March 14, 2024 9 :34am Power of Web Development Instructor No March 14, 2024 9:34am Living Will Yes January 08, 2024 11:07am Power of Web Development Instructor Yes January 07 11:07am Living Will No August 14 2:23am Power of Web Development Instructor No August 14, 2024 2:23am Living Will Yes November 02, 025 3:57pm Power of Web Development Instructor Yes November 02, 2024 3:57pm Name of Medical Power of Web Development Instructor YOLI REYES November 02, 2024 3:57pm Living Will No October 15 5:39am Power of Web Development Instructor No October 15, 2024 5:39am Advance Directives No February 27 4:16pm Advance Directive Response Recorded Date/ Time Living Will Yes January 08, 2024 11:07am Do you have a Healthcare Power of Web Development Instructor? Yes January 08, 2024 11:07am Living Will Yes November 02, 025 3:57pm Do you have a Healthcare Power of Web Development Instructor? Yes November 02, 2024 3:57pm Name of Medical Power of Web Development Instructor YOLI REYES November 02, 2024 3:57pm Living Will No October 15 5:39am Do you have a Healthcare Power of Web Development Instructor? No October 15, 2024 5:39am Living Will No November 12, 2024 8:29am Do you have a Healthcare Power of Web Development Instructor? No November 12, 2024 8:29am Advance Directives No February 27 4:16pm Advance Directive Response Recorded Date/ Time Living Will Yes January 08, 2024 11:07am Do you have a Healthcare Power of Web Development Instructor? Yes January 08, 2024 11:07am Living Will No November 12, 2024 8:29am Do you have a Healthcare Power of Web Development Instructor? No November 12, 2024 8:29am Advance Directives [...] Visit Atherosclerosis of c oronary artery of [place] heart without angina pectoris Chronic diastolic (congestive) heart failure Hyperlipidemia Hypertension Paroxysmal atrial fibrillation Peripheral vascular occlusive disease Chief Complaint COPY BMP RESULTS TO TRZCINSKI S/O INR s/o INR AORTOILIAC ANGIOGRAM s/o INR ARTHERSOSCLEROSIS L UPPER 9 m fu s/o INR Reason for Visit Atherosclerosis of c oronary artery of [place] heart without angina pectoris Chronic diastolic (congestive) heart failure Hyperlipidemia Hypertension Paroxysmal atrial fibrillation Peripheral vascular occlusive disease Chief Complaint AORTOILIAC ANGIOGRAM s/o INR ARTHERSOSCLEROSIS L UPPER 9 m fu s/o INR s/o INR s/o INR Reason for Visit Atherosclerosis of c oronary artery of [place] heart without angina pectoris Chronic diastolic (congestive) heart failure Hyperlipidemia Hypertension Paroxysmal atrial fibrillation Peripheral vascular occlusive disease Chief Complaint s/o INR s/o INR 6 M FU INT LABS Reason for Visit Chest pain Dyspnea Atherosclerosis of coronary artery of [place] heart without angina pectoris Chronic diastolic (congestive) heart failure Hypertension Paroxysmal atrial fibrillation Peripheral vascular occlusive disease Chief Complaint s/o INR s/o INR 6 M FU INT LABS DYSPNEA/SOB Reason for Visit Chest pain Dyspnea Atherosclerosis of coronary artery of [place] heart without angina pectoris Chronic diastolic (congestive) heart failure Hypertension Paroxysmal atrial fibrillation Peripheral vascular occlusive disease Chief Complaint s/o INR 6 M FU INT LABS DYSPNEA/SOB ABD PAIN s/o INR 3 M FU Reason for Visit Chest pain Dyspnea Atherosclerosis of coronary artery of [place] heart without angina pectoris Chronic diastolic (congestive) heart failure Hypertension Paroxysmal atrial fibrillation Peripheral vascular occlusive disease Chest pain Atherosclerosis of coronary artery of [place] heart without angina pectoris Chronic diastolic (congestive) heart failure Hypertension Paroxysmal atrial fibrillation Peripheral vascular occlusive disease Chief Complaint ABD PAIN s/o INR 3 M FU s/o INR DDD RX HERE Reason for Visit Chest pain Atherosclerosis of coronary artery of [place] heart without angina pectoris Chronic diastolic (congestive) heart failure Hypertension Paroxysmal atrial fibrillation Peripheral vascular occlusive disease Chief Complaint ABD PAIN s/o INR 3 M FU s/o INR AFTERCARE/WBI s/o INR DDD RX HERE Reason for Visit Chest pain Atherosclerosis of coronary artery of [place] heart without angina pectoris Chronic diastolic (congestive) heart failure Hypertension Paroxysmal atrial fibrillation Peripheral vascular occlusive disease Chief Complaint s/o INR 3 M FU s/o INR AFTERCARE/WBI s/o INR DDD RX HERE Reason for Visit Chest pain Atherosclerosis of coronary artery of [place] heart without angina pectoris Chronic diastolic (congestive) heart failure Hypertension Paroxysmal atrial fibrillation Peripheral vascular occlusive disease Chief Complaint AFTERCARE/WBI s/o INR DDD RX HERE 1 Y FU s/o INR Reason for Visit Atherosclerosis of c oronary artery of [place] heart without angina pectoris Hyperlipidemia Hypertension Paroxysmal atrial fibrillation Peripheral vascular occlusive disease Chief Complaint s/o INR DDD RX HERE 1 Y FU s/o INR Reason for Visit Atherosclerosis of c oronary artery of [place] heart without angina pectoris Hyperlipidemia Hypertension Paroxysmal atrial fibrillation Peripheral vascular occlusive disease Chief Complaint s/o INR s/o INR Chief Complaint s/o INR wound to left leg Chief Complaint wound to left leg 8 m fu s/o INR s/o INR Reason for Visit Dyspnea Atherosclerosis of coronary artery of [place] heart without angina pectoris Hyperlipidemia Hypertension Paroxysmal atrial fibrillation Peripheral vascular occlusive disease Chief Complaint wound to left leg 8 m fu s/o INR s/o INR s/o INR Reason for Visit Dyspnea Atherosclerosis of coronary artery of [place] heart without angina pectoris Hyperlipidemia Hypertension Paroxysmal atrial fibrillation Peripheral vascular occlusive disease Chief Complaint wound to left leg 8 m fu s/o INR s/o INR s/o INR s/o INR EPIGLOTTIS CANCER Reason for Visit Dyspnea Atherosclerosis of coronary artery of [place] heart without angina pectoris Hyperlipidemia Hypertension Paroxysmal atrial fibrillation Peripheral vascular occlusive disease Chief Complaint wound to left leg 8 m fu s/o INR s/o INR s/o INR s/o INR EPIGLOTTIS CANCER PREOP Microlaryngoscopy Reason for Visit Dyspnea Atherosclerosis of coronary artery of [place] heart without angina pectoris Hyperlipidemia Hypertension Paroxysmal atrial fibrillation 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 Chief Complaint Admit Date s/o INR August 12, 2024 6:27am 3 M FU August 29, 2024 9:37am s/o INR October 04, 2024 7 :51am XRT CA October 04, 2024 8 :30am 3 MONTH F/U H/N, REVIEW PET September 8:58am Referral from [facility] (see order&comments) J anuary 2024 11:14am [...] Admit Date Atherosclerosis of coronary artery of [place] heart without angina pectoris August 29, 2024 [...] 15 11:25am Atherosclerosis of coronary artery of [place] heart without angina pectoris March 02, 2025 [...] 15 11:25am Atherosclerosis of coronary artery of [place] heart without angina pectoris March 02, 2025 [...] 15 11:25am Atherosclerosis of coronary artery of [place] heart without angina pectoris March 02, 2025 8:59am Hyperlipidemia March 02, 2025 8:59 am Hypertension March 02, 2025 8:59 am Paroxysmal atrial fibrillation February 8:59am Peripheral vascular occlusive disease [facility] 2024 8:59am Chief Complaint Admit Date [...] section and content) DATE CREATED AUTHOR 11/16/2018 [facility] [place] DATE CREATED AUTHOR AUTHOR'S ORGANIZ ATION 10/11/2021 [facility] DATE CREATED AUTHOR AUTHOR'S ORGANIZ ATION 12/06/2023 [facility] ([place]) DATE CREATED AUTHOR AUTHOR'S ORGANIZ ATION 05/10/2025 [facility] DATE CREATED AUTHOR AUTHOR'S ORGANIZ ATION 05/19/2025 [facility] Goals (unrecognized section and content) Goals [...] Provider, Referrin g Provider Active Jolynn Davenport DISEASE EDUCATION SPECIALIST, DISEASE EDUCATION SPECIALIST-C Attending Provider Active Team Status: Active Member [...] DO Primary Care Provider Active Jolynn Davenport DISEASE EDUCATION SPECIALIST, DISEASE EDUCATION SPECIALIST-C Attending Provider, Referring P rovider Active Team [...] Inactive Member Role Status Dates Dr. Lexus Rviera DO Primary Care Provider, Referrin g Provider [...] 2024 End: October 21, 2024 Dr. Riki Lizaam DO Referring Provider Active Start: October 21, [...] End: March 02, 2025 Jolynn Davenport NP, DISEASE EDUCATION SPECIALIST-C Attending Provider Active Start: March 02, 2025 [...] 2025 End: March 02, 2025 Jolynn Davenport DISEASE EDUCATION SPECIALIST, DISEASE EDUCATION SPECIALIST-C Attending Provider Active Start: March 02, 2025 [...] End: March 02, 2025 Jolynn Davenport NP, DISEASE EDUCATION SPECIALIST-C Attending Provider Active Start: March 02, 2025 [...] BE BASED ON THE PRIMARY CLINICAL RECORDS. [employer] provides no warranty or guarantee of the accuracy or completeness of information in this document.
--- NOTE | 2025-05-20 15:48 | HP.PCM.HOS_ITS ---
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 In the ED temp 100.3 but had temp of up to 101.2 at home, heart rate 105 and blood pressure initially 93/58, respiratory rate 16 and pulse ox 94% on room air. Patient with white count of 14.2 and a hemoglobin 9.6. CMP with a BUN of 55 and a creatinine of 1.67, which appears baseline, glucose 153 and liver panel within normal limits. Lactic acid 1.5, proBNP 1246, INR 3.6, patient on Coumadin, and UA with 500 leuk esterase, 10-25 white cells and 1+ bacteria. Chest x-ray read as cardiomegaly with pulmonary congestion and edema and cannot rule out superimposed pneumonia. When patient stood he became lightheaded so orthostats obtained which showed a laying blood pressure of 98/46 which decreased to 73/41 on standing and patient was symptomatic. Antibiotics and IV fluids ordered and hospitalist contacted for admission. Patient evaluated at bedside, he reports 3 to 4 days of weakness, fever and chills, aches with shortness of breath and a productive cough with brown sputum, notes sometimes he will get some sharp pain on either side of his chest that is brief and does not seem to have anything that makes it better or worse, did clarify there is no substernal pain or pressure or persistent symptoms, reports he has been nauseous and had some vomiting and has had poor p.o. intake, has a PEG tube because he had epiglottal cancer so has tube feeds but also takes in some by mouth and has been doing less at this due to feeling unwell, also had diarrhea on Thursday. Denies any abdominal pain, denies any changes in urination, denies any swelling in the extremities. [facility] Medical History CPAP (continuous positive airway pressure) dependence Cancer Macular degeneration of right eye Carcinoma of epiglottis Smoker Wears hearing aid Wears dentures Alcohol use Ambulates with cane Neuropathy Back pain Blackout Difficulty swallowing Former smoker Shortness of breath on exertion Leg cramps History of edema Stroke/cerebrovascular accident History of atrial fibrillation History of echocardiogram History of stress test Cardiology follow-up encounter Chronic diastolic (congestive) heart failure Hypertension Acute on chronic diastolic (congestive) heart failure History of non-ST elevation myocardial infarction (NSTEMI) (11/02/19) Upper GI bleed (11/02/19) Paroxysmal atrial fibrillation History of CVA (cerebrovascular accident) (10/2015) Chronic renal failure Claudication Peripheral vascular occlusive disease Hyperlipidemia Atherosclerosis of coronary artery of [place] heart without angina pectoris Stenosis of left subclavian artery Anxiety and depression CKD (chronic kidney disease) DDD (degenerative disc disease) Marijuana use Narcolepsy Diabetic neuropathy Osteoarthritis Type 2 diabetes mellitus Lacunar infarct, acute Home Medications ?Medication ?Instructions ?Recorded ?Last Taken ?Type pregabalin 150 mg capsule 150 mg PO DAILY pain 6 10/12/20 22:00 History warfarin 1 mg tablet 2 mg PO DAILY 02/22/2410/30 History albuterol sulfate 90 mcg/actuation 2 puff inhalation Q 4 PRN wheezing 10/13/24 Unknown History aerosol inhaler atorvastatin 40 mg tablet 40 mg PO DAILY 05/20/25 Unkn own History Allergy/AdvReac Type Severity Reaction Status Date / Time metformin AdvReac Nausea/Vom/ Verified 05/20/25 11:16 Diarrhea Family History Brother Cancer lung Son Cancer Surgical History S/P percutaneous endoscopic gastrostomy (PEG) tube placement History of laryngoscopy History of cataract surgery History of colonoscopy History of cholecystectomy (~10/2020) History of left heart catheterization (11/13/04) History of angioplasty of peripheral vessel (09/2018) Social History Smoking Status: Former smoker quit date: 09/14/97 Tobacco: How many years used: 45 how long ago did patient quit smokin years ago alcohol intake: current alcohol intake frequency: 0-2 drinks per day Alcohol type: hard liquor substance use type: marijuana caffeine: Yes Type: carbonated beverages Number of servings: 1 ROS ROS Narrative General: Fever and chills HENT: Denies headache, denies stuffy nose, denies sore throat EYES: Denies changes in vision Resp: Productive cough and increased shortness of breath Cardiac: Occasionally a sharp pain on either side of his chest GI: Denies abdominal pain, has had some nausea and briefly had diarrhea on Thursday : Denies changes in urination Extremity: Denies swelling MSK: Generally weak Neuro: Denies any numbness/tingling Heme: Denies any bleeding or bruising Skin: Denies rashes Psychiatric: No complaints voiced Vital Signs Vital Signs Vital Signs: 05/20/25 11:15 05/20/25 11:27 05/20/25 11:56 Temperature 100.3 F H Temperature Source Oral Pulse Rate 105 H Pulse Rate [Lying] Pulse Rate [Sitting (for 1 minute prior to obtaining)] Pulse Rate [Standing (for 1 minute prior to obtaining)] Respiratory Rate 16 Respiratory Effort Normal Respiratory Depth Normal Respiratory Pattern Normal Blood Pressure 93/58 L Blood Pressure [Lying] Blood Pressure [Sitting (for 1 minute prior to obtaining)] Blood Pressure [Standing (for 1 minute prior to obtaining)] Blood Pressure Mean 69 Blood Pressure Mean [Lying] Blood Pressure Mean [Sitting (for 1 minute prior to obtaining)] Blood Pressure Mean [Standing (for 1 minute prior to obtaining)] Pulse Ox 94 Oxygen Delivery Method Room Air Room Air Room Air 05/20/25 11:58 05/20/25 13:23 05/20/25 13:59 Temperature Temperature Source Pulse Rate 95 96 Pulse Rate [Lying] 90 Pulse Rate [Sitting (for 1 minute prior to obtaining)] 94 Pulse Rate [Standing (for 1 minute prior to obtaining)] 97 Respiratory Rate 18 18 Respiratory Effort Respiratory Depth Respiratory Pattern Normal Blood Pressure 95/44 L Blood Pressure [Lying] 98/46 L Blood Pressure [Sitting (for 1 minute prior to obtaining)] 82/41 L Blood Pressure [Standing (for 1 minute prior to obtaining)] 73/41 L Blood Pressure Mean 61 Blood Pressure Mean [Lying] 63 Blood Pressure Mean [Sitting (for 1 minute prior to obtaining)] 54 Blood Pressure Mean [Standing (for 1 minute prior to obtaining)] 51 Pulse Ox 96 Oxygen Delivery Method Room Air 05/20/25 14:39 05/20/25 14:45 05/20/25 14:48 Temperature 98.6 F 98.6 F Temperature Source Oral Pulse Rate 90 90 90 Pulse Rate [Lying] Pulse Rate [Sitting (for 1 minute prior to obtaining)] Pulse Rate [Standing (for 1 minute prior to obtaining)] Respiratory Rate 16 22 H Respiratory Effort Respiratory Depth Respiratory Pattern Blood Pressure 90/43 L 73/58 L 98/46 L Blood Pressure [Lying] Blood Pressure [Sitting (for 1 minute prior to obtaining)] Blood Pressure [Standing (for 1 minute prior to obtaining)] Blood Pressure Mean 58 63 63 Blood Pressure Mean [Lying] Blood Pressure Mean [Sitting (for 1 minute prior to obtaining)] Blood Pressure Mean [Standing (for 1 minute prior to obtaining)] Pulse Ox 96 94 Oxygen Delivery Method Room Air Weight Weight: 67.3 kg Body Mass Index (BMI) 23.2 Physical Exam Narrative General: Alert, oriented HEENT: Atraumatic, normocephalic Eyes: Anicteric, normal conjunctiva, extraocular movements grossly intact Neck: Supple Respiratory: Slight increased respiratory effort, coarse at lung bases bilaterally Cardiovascular: Regular rate and rhythm GI: Soft, nontender, nondistended Extremities: No edema Musculoskeletal: Moving all extremities Neuro: No overt focal neurological deficits Skin: No rashes appreciated Psych: Cooperative Results Lab / Micro Data 05/20/25 11:40 05/20/25 11:40 Labs: Laboratory Results - last 24 hr 05/20/25 11:40: WBC 14.2 H, RBC 3.00 L, Hgb 9.6 L, Hct 28.3 L, MCV 94.3 H, MCH 32.0, MCHC 33.9, RDW Std Deviation 44.2 H, RDW Coeff of [place] 12.8, Plt Count 162, MPV 10.3, Immature Gran % (Auto) 0.500, Neut % (Auto) 93.3 H, Lymph % (Auto) 1.1 L, [place] % (Auto) 4.9, Eos % (Auto) 0.1, Baso % (Auto) 0.1, Absolute Neuts (auto) 13.2 H, Absolute Lymphs (auto) 0.16 L, Nucleated RBC % 0, PT 36.6 H, INR 3.6, A PTT 49.9 H, Sodium 138, Potassium 4.3, Chloride 102, Carbon Dioxide 24.8, Anion Gap 11, BUN 55 H, Creatinine 1.67 H, Estim Creat Clear Calc 35.18 L, Est GFR (MDRD) Non-Af 42 L, BUN/Creatinine Ratio 32.6 H, Glucose 153 H, Lactic Acid 1.5, Calcium 8.7, Total Bilirubin 0.61, AST 25, ALT 17, Alkaline Phosphatase 83, NT pro BNP II 1246, Total Protein 6.7, Albumin 3.4, Globulin 3.4, Albumin/Globulin Ratio 1.0 05/20/25 12:35: Urine Color Yellow, Urine Clarity Sl. Cloudy, Urine pH 6.0, Ur Specific [place] 1.015, Urine Protein 30 H, Urine Glucose (UA) Normal, Urine Ketones Negative, Urine Occult Blood 25 H, Urine Nitrite Negative, Urine Bilirubin Negative, Urine Urobilinogen Normal, Ur Leukocyte Esterase 500 H, Urine RBC 0 SEEN, Urine WBC 10-25 SEEN, Ur Squamous Epith Cells 0-5 SEEN, Urine Bacteria 1+, Urine Mucus 0 SEEN Micro: Microbiology 05/20/25 12:00 Mucosa - Nose SARS-CoV-2, Influenza & RSV (PCR) - Final Imaging Radiology Impression Chest X-Ray 05/20/25 12:15 IMPRESSION: Cardiomegaly with pulmonary congestion and edema. Superimposed pneumonia cannot be excluded. Reading Location: [facility] Assessment & Plan Assessment/Plan (1) Sepsis: PLAN: Plan # Sepsis suspect secondary to pneumonia -Patient tachycardic on arrival with heart rate of 105, febrile at home up to 101.2, did have a respiratory rate of 22 while still in the ED as well and white count 14.2 with hypotension -Chest x-ray read as congestion and cannot rule out underlying pneumonia however BNP not at threshold for fluid overload patient has no complaints of weight gain or swelling, symptoms seem more consistent with pneumonia and infection -Given the increased shortness of breath and cough with sputum production seems that pneumonia is most likely however urine with leuk esterase, white cells, bacteria however patient with no urinary complaints so this is lower on the differential but urine culture was sent in the E -Additionally patient only takes in some po and has been coughing a lot lately, unclear if there is an association, cannot rule out aspiration pneumonia -Will plan to cover Zosyn for broader coverage -Will consult speech therapy -Patient given 30 cc/kg IV fluids, 2 L -DuoNebs and as needed albuterol -Sputum culture, COVID negative, respiratory panel ordered -Urine antigens -Mucinex, I/S -Additionally checking TSH with the significance of patient's orthostats #Hx of diastolic dysfunction -Echo 07/21/2022 with moderate concentric left ventricular hypertrophy and stage I diastolic dysfunction with normal EF -Does not appear fluid overloaded -Patient receiving IV fluids as above, monitor daily weights and I's and O's # CKD stage III b -Appears to be at baseline -Avoid nephrotoxic agents -Daily BMPs # COPD -Patient is listed as having COPD but only uses albuterol as needed at home based on med list -Continue albuterol as needed, nebs as above -Steroids started in the ED, given chest x-ray without definitive infiltrate (but cannot rule it out) will continue steroids at this time pending further culture and sensitivity data and de-escalate as needed # History of 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 -Not on rate control -Is presently in normal sinus rhythm # History of CVA -Patient takes Coumadin and atorvastatin at home #Hx alcohol use - Patient drinks about 1 ounce of whiskey a day with Pepsi, can go days without drinking without having any tremors or withdrawal symptoms -Do not think patient needs CIWA at this time -Will add thiamine and folate #Type 2 diabetes mellitus -Patient reports history of diabetes, does not appear he is on anything at home for this -Glucose checks and sliding scale insulin #DVT ppx: Patient therapeutic on Coumadin Betzaida Patel MD Time spent in the patient's overall evaluation, decision-making process, review of diagnostic data, adjustment of management, discussion with other providers, nursing and ancillary staff involved in patient's care documentation, 79 Minutes Sepsis Attestation Sepsis Alert: Yes Sepsis Attestation: Agree w/Sepsis Date exam was performed: 05/20/25 Time exam was performed: 15:00 Possible Source of Sepsis: Pulmonary and Genitourinary Supportive Findings: Patient tachycardic on arrival with heart rate of 105, febrile at home up to 101.2, did have a respiratory rate of 22 while still in the ED as well and white count 14.2 with hypotension Fluid Resuscitation Fluid resuscitation indicated?: Yes Fluid Resuscitation ordered: 30 ml/kg fluid bolus ordered Amount of fluid ordered: 2,000 Charges/Coding Visit Charges Inpatient E&M: 73216 Init Hosp L3
[2025-05-20] MEDS: Lidocaine Jelly 2% 20 ML Syringe (URO-JET) 1 APPLIC TOPICAL (17:45)
[2025-05-20] MEDS: 0.9% Normal Saline (1000mL) 1,000 ML 50 ML IV (18:03)
[2025-05-20] MEDS: Piperacil/Tazobactam 3.375 GM in 0.9% Normal Saline (50mL MB+) 50 ML IV (21:32)
[2025-05-20] MEDS: Jevity 1.5. 1,000 ML Bottle 400 ML GT (21:33)
[2025-05-20] MEDS: guaiFENesin 10 ML UDC (200MG/10ML) 20 ML PO (21:34)
[2025-05-21] VITALS (14 sets, daily range): BP systolic 112–153; BP diastolic 44–90; PULSE 81–96; RESP 18–25; TEMP 36.7–36.8; O2SAT 95–100; BMI 24.2
[2025-05-21 04:07] LABS: Hematocrit 24.3 % (40-54); Hemoglobin 8.5 g/dL (13.0-16.5); Immature Granulocytes Count 0.160 X10^3/uL (0.0-0.0); Mean Corp Hgb Conc 35.0 g/dL (32-36); Mean Corpuscular Volume 94.9 fL (80-94); Mean Platelet Vol. 10.2 fl (6.2-12.0); NRBC Flagged by Analyzer 0 % (0-5); POSITIVE DIFFERENTIAL YES; Platelet Count 132 K/mm3 (150-450); RBC Distribution Width CV 12.9 % (11.6-14.6); RBC Distribution Width SD 44.3 fl (35.1-43.9); Red Blood Count 2.56 M/mm3 (4.6-6.2); White Blood Count 16.4 K/mm3 (4.4-11.0)
[2025-05-21 04:17] LABS: Prothrombin Time (Protime)PT. 46.1 SECONDS (11.7-14.9)
[2025-05-21 04:52] LABS: Anion Gap 9 (5-15); BUN 44 mg/dL (4-19); BUN/Creat Ratio 32.3 RATIO (10-20); Calcium,Total 7.9 mg/dL (7.6-11.0); Carbon Dioxide 22.7 mmol/L (21.0-32.0); Chloride 107 mmol/L (98-108); Estimated Creatinine Clearance 42.89 ml/min (50-250); Glucose 223 mg/dL (70-99); Potassium 4.2 mmol/L (3.3-5.1)
[2025-05-21] MEDS: 0.9% Saline Lock 10 ML Syringe IV ×2 (05:13→22:09)
[2025-05-21] MEDS: Piperacil/Tazobactam 3.375 GM in 0.9% Normal Saline (50mL MB+) 50 ML IV ×3 (05:16→22:09)
[2025-05-21] MEDS: guaiFENesin 10 ML UDC (200MG/10ML) 20 ML PO ×3 (05:21→22:20)
[2025-05-21] MEDS: Jevity 1.5. 1,000 ML Bottle 400 ML GT (06:17)
--- NOTE | 2025-05-21 07:14 | PN.HOSP_ITS ---
Reason for Visit Chief Complaint: Fever, cough, shortness of breath Subjective Subjective Patient is a 74-year-old gentleman who presented to the emergency department with a 4-day history of progressive generalized weakness fever and chills. An assessment of sepsis secondary to pneumonia and UTI made admitted to the intensive care unit for further management Objective Data Objective Data Vital Signs: Vital Signs Temp Pulse Resp BP Pulse Ox O2 Del Method 98.8 F 83 18 135/54 H 98 Room Air 05/20/25 20:00 05/21/25 07:10 05/21/25 07:10 05/21/25 07:00 05/21/25 07:10 05/21/25 07:10 Oxygen Delivery Method Room Air Weight: 69.9 kg Body Mass Index (BMI) 24.2 Intake & Output: Intake and Output for Last 24 Hours 05/19/25 05/20/25 05/21/25 23:59 23:59 23:59 Intake Total 3900 / 4300 1560 / 1560 Output Total 100 / 100 1150 / 1150 Balance 3800 / 4200 410 / 410 Lab / Micro Data 05/21/25 03:53 05/21/25 03:53 Labs: Laboratory Results - last 24 hr 05/20/25 11:40: WBC 14.2 H, RBC 3.00 L, Hgb 9.6 L, Hct 28.3 L, MCV 94.3 H, MCH 32.0, MCHC 33.9, RDW Std Deviation 44.2 H, RDW Coeff of [place] 12.8, Plt Count 162, MPV 10.3, Immature Gran % (Auto) 0.500, Neut % (Auto) 93.3 H, Lymph % (Auto) 1.1 L, [place] % (Auto) 4.9, Eos % (Auto) 0.1, Baso % (Auto) 0.1, Absolute Neuts (auto) 13.2 H, Absolute Lymphs (auto) 0.16 L, Nucleated RBC % 0, PT 36.6 H, INR 3.6, A PTT 49.9 H, Sodium 138, Potassium 4.3, Chloride 102, Carbon Dioxide 24.8, Anion Gap 11, BUN 55 H, Creatinine 1.67 H, Estim Creat Clear Calc 35.18 L, Est GFR (MDRD) Non-Af 42 L, BUN/Creatinine Ratio 32.6 H, Glucose 153 H, Lactic Acid 1.5, Calcium 8.7, Total Bilirubin 0.61, AST 25, ALT 17, Alkaline Phosphatase 83, NT pro BNP II 1246, Total Protein 6.7, Albumin 3.4, Globulin 3.4, Albumin/Globulin Ratio 1.0 05/20/25 12:35: Urine Color Yellow, Urine Clarity Sl. Cloudy, Urine pH 6.0, Ur Specific [place] 1.015, Urine Protein 30 H, Urine Glucose (UA) Normal, Urine Ketones Negative, Urine Occult Blood 25 H, Urine Nitrite Negative, Urine Bilirubin Negative, Urine Urobilinogen Normal, Ur Leukocyte Esterase 500 H, Urine RBC 0 SEEN, Urine WBC 10-25 SEEN, Ur Squamous Epith Cells 0-5 SEEN, Urine Bacteria 1+, Urine Mucus 0 SEEN 05/20/25 17:16: POC Glucose 171 H 05/21/25 03:53: WBC 16.4 H, RBC 2.56 L, Hgb 8.5 L, Hct 24.3 L, MCV 94.9 H, MCH 33.2 H, MCHC 35.0, RDW Std Deviation 44.3 H, RDW Coeff of [place] 12.9, Plt Count 132 L, MPV 10.2, Immature Gran % (Auto) 1.000 H, Neut % (Auto) 95.9 H, Lymph % (Auto) 1.5 L, [place] % (Auto) 1.5, Eos % (Auto) 0.0, Baso % (Auto) 0.1, Absolute Neuts (auto) 15.8 H, Absolute Lymphs (auto) 0.25 L, Nucleated RBC % 0, PT 46.1 H , INR 4.8 H*, Sodium 139, Potassium 4.2, Chloride 107, Carbon Dioxide 22.7, Anion Gap 9, BUN 44 H, Creatinine 1.37 H, Estim Creat Clear Calc 42.89 L, Est GFR (MDRD) Non-Af 53 L, BUN/Creatinine Ratio 32.3 H, Glucose 223 H, Calcium 7.9, TSH 0.563 Micro: Microbiology 05/20/25 17:06 Mucosa - Nasopharyngeal Respiratory Panel (PCR) - Final 05/20/25 17:30 Urine Catheter - Catheter Legionella Antigen - Final 05/20/25 17:30 Urine Catheter - Catheter Streptococcus pneumoniae Antigen (M - Final 05/20/25 12:00 Mucosa - Nose SARS-CoV-2, Influenza & RSV (PCR) - Final Radiography Diagnostic Testing: Radiology Impression Chest X-Ray 05/20/25 12:15 IMPRESSION: Cardiomegaly with pulmonary congestion and edema. Superimposed pneumonia cannot be excluded. Reading Location: [facility] Physical Exam Narrative GENERAL: cooperative HEENT: Atraumatic; normocephalic EYES; Anicteric, Normal Conjunctiva NECK; supple, normal thyroid, RESPIRATORY: Diminished to auscultation CARDIOVASCULAR: Regular S1 S2, GI: soft, normoactive bowel sounds, : No Renal angle tenderness; EXTREMITIES: No edema, no clubbing, MUSCULOSKELETAL: no muscle wasting NEURO: Awake; no lateralizing signs. SKIN: No Rash PSYCH; Flat affect Assessment & Plan Assessment/Plan (1) Sepsis: PLAN: Plan Patient is a 74-year-old gentleman who presented to the emergency department with a 4-day history of progressive generalized weakness fever and chills. An assessment of sepsis secondary to pneumonia and UTI made admitted to the intensive care unit for further management 1. Sepsis secondary to combination of UTI and pneumonia admitted to the intensive care unit. Patient did receive IV fluids 30 cc/kg, cultures sent and patient started on broad-spectrum antibiotic therapy. Response to therapy monitored with serial lactic acid levels 2. Acute suspected bacterial pneumonia ? Acute viral respiratory panel, urine Legionella and streptococcal antigen and blood and sputum sent, patient started on Zosyn in addition to treatment as discussed above 3. Acute complicated UTI ? Patient is on Zosyn cultures sent 4. Chronic congestive heart failure with preserved ejection fraction ? Echo from 07/21/2022 demonstrated moderate concentric left trickle hypertrophy with normal EF. Patient remains compensated 5. Chronic kidney disease stage IIIb ? Kidney function at baseline, monitoring with daily BMPs 6. Paroxysmal atrial fibrillation The rate control patient is systemic anticoagulation with warfarin INR is elevated, Coumadin held repeat INR ordered for a.m. 7. COPD ? Not in exacerbation aerosol treatment as needed 8. 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 History of previous CVA with no residual effect -Patient takes Coumadin and atorvastatin at home 10. History of alcohol use - Patient drinks about 1 ounce of whiskey a day with Pepsi, currently has no withdrawal symptoms. Thiamine and folic acid added to patient treatment regimen on admission 11. Diabetes mellitus type 2 Per history currently managed with diet 12. DVT prophylaxis ? Patient is on Coumadin no need for additional measures Time spent in the patient's overall evaluation, decision-making process, review of diagnostic data, adjustment of management, discussion with other providers, nursing and ancillary staff involved in patient's care documentation, 50 Minutes Charges/Coding Visit Charges Inpatient E&M: 87393 Init Hosp L3
[2025-05-21] MEDS: Thiamine Hydrochloride 100 MG Tablet GT (08:14)
[2025-05-21] MEDS: Jevity 1.5. 1,000 ML Bottle 300 ML GT ×3 (12:23→22:10)
[2025-05-22 02:00] VITALS: BP 150/88; PULSE 86; RESP 16; TEMP 36.7; O2SAT 96
[2025-05-22] MEDS: Piperacil/Tazobactam 3.375 GM in 0.9% Normal Saline (50mL MB+) 50 ML IV (04:51)
[2025-05-22 05:43] VITALS: BMI 24.3
[2025-05-22 05:47] LABS: Hematocrit 26.6 % (40-54); Hemoglobin 9.1 g/dL (13.0-16.5); Immature Granulocytes Count 0.070 X10^3/uL (0.0-0.0); Mean Corp Hgb Conc 34.2 g/dL (32-36); Mean Corpuscular Volume 95.0 fL (80-94); Mean Platelet Vol. 10.3 fl (6.2-12.0); NRBC Flagged by Analyzer 0 % (0-5); POSITIVE DIFFERENTIAL YES; Platelet Count 138 K/mm3 (150-450); RBC Distribution Width CV 12.6 % (11.6-14.6); RBC Distribution Width SD 43.5 fl (35.1-43.9); Red Blood Count 2.80 M/mm3 (4.6-6.2); White Blood Count 13.5 K/mm3 (4.4-11.0)
[2025-05-22 05:54] LABS: Prothrombin Time (Protime)PT. 32.6 SECONDS (11.7-14.9)
[2025-05-22 06:11] LABS: Anion Gap 9 (5-15); BUN 44 mg/dL (4-19); BUN/Creat Ratio 34.7 RATIO (10-20); Calcium,Total 8.2 mg/dL (7.6-11.0); Carbon Dioxide 24.7 mmol/L (21.0-32.0); Chloride 107 mmol/L (98-108); Estimated Creatinine Clearance 45.90 ml/min (50-250); Glucose 247 mg/dL (70-99); Magnesium 2.5 mg/dL (1.5-2.2); Potassium 4.6 mmol/L (3.3-5.1)
[2025-05-22] MEDS: Jevity 1.5. 1,000 ML Bottle 300 ML GT ×2 (06:35→12:53)
[2025-05-22] MEDS: guaiFENesin 10 ML UDC (200MG/10ML) 20 ML PO (06:35)
[2025-05-22] MEDS: 0.9% Saline Lock 10 ML Syringe IV (06:36)
[2025-05-22 08:30] VITALS: BP 178/80; PULSE 90; RESP 16; TEMP 36.8; O2SAT 100
[2025-05-22] MEDS: Sodium Phosphate/Na Biphos 21 MMOL in 0.9% Normal Saline (250mL Bag) 250 ML 84 MMOL IV (09:30)
[2025-05-22] MEDS: Thiamine Hydrochloride 100 MG Tablet GT (09:34)
--- NOTE | 2025-05-22 11:00 | CASEMGMT ---
RN CM Face to Face with patient for initial transition planning/care coordination assessment. RN CM introduced self and role at [facility]. Patient lying in bed, alert and oriented. Patient willing to participate in assessment and is able to answer all questions appropriately. Care providers, pharmacy, and demographics verified. Strata: 3 PCP: Stuart Specialists: Dl, oncology radiologist; Clem, GI; Abdelrahman, processing assistant Preferred Pharmacy: [facility] Insurance: [facility] Prescription Benefit: yes Living Will/HPOA: yes, Patricia Arita LNOK: Living Arrangements: Patient lives with in a single story with 4 steps to enter the home. 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 Transportation: self, DME/HHC: Patient has shower chair, raised toilet, cane, grab bars, tube feeds with all supplies. No previous HHC or SNF. Patient states [facility] Patient wishes to discharge home, denies need for home health at this time. Patient states he has no further needs or concerns at this time. CM to follow for discharge planning needs that may arise. Disposition Plan: Patient to discharge home with family support and follow-up plans in place. Yolie SEVILLA, RN, CM
--- NOTE | 2025-05-22 11:00 | DCINST_ITS ---
Discharge Instructions DC O2, CPAP, BIPAP needs Home O2 Discharge instructions: No Dressing / Incision Discharge Activity: Return to Normal Activity Dressing / Incision Call your doctor if you observe: Fever of 101 or Higher, Shortness of breath, Dizziness, Fainting spells, Swelling in the ankles, Chest pain and Increased palpitations (irregular heartbeat) Follow Up Care Test Results: Test results from this visit will be discussed in further detail at your follow- up appointment, if applicable. Discharge Plan Admission Admit Date/Time: 05/20/25 14:59 Attending Provider: Randy Simon Primary Care Provider: Renzo Davidson Consulting Providers: Betzaida Patel; [employer] Instructions Additional Instructions / Restrictions: While taking the antibiotic decrease your Coumadin dosing to 1 mg daily and follow-up with your PCP for lab work and monitoring your INR. I also recommend following your phosphorus as this was very low on the day of discharge and that was replaced and I also provided you with phosphorus tablets on discharge for a few days Discharge Orders/Prescriptions Prescriptions: New cefdinir 300 mg capsule 300 mg PO BID Qty: 10 0RF E-Lgxp-Noteuko 250 mg tablet 1 tab PO BID Qty: 10 0RF Continued albuterol sulfate 90 mcg/actuation HFA aerosol inhaler 2 puff inhalation Q4 PRN (Reason: wheezing) pregabalin 150 MG capsule 150 mg PO DAILY Patient Comments: Pain warfarin 1 mg tablet 2 mg PO DAILY Protocol: Dose Management Condition: Thursday Dose/Route: 2 mg Instruction: 2 x 1 mg tablets Condition: Thursday Dose/Route: 2 mg Instruction: 2 x 1 mg tablets Condition: Thursday Dose/Route: 2 mg Instruction: 2 x 1 mg tablets Condition: Thursday Dose/Route: 2 mg Instruction: 2 x 1 mg tablets Condition: Dose/Route: 2 mg Instruction: 2 x 1 mg tablets Condition: Thursday Dose/Route: 2 mg Instruction: 2 x 1 mg tablets Condition: Thursday Dose/Route: 2 mg Instruction: 2 x 1 mg tablets Protocol Text: Adjustment Start Date: Thursday05/05/25 INR Value: 3.0 INR Date: 05/05/25 Recheck Date: 06/04/25 atorvastatin 40 mg tablet 40 mg PO DAILY Referrals / Follow Up: Renzo Davidson DO [Primary Care Provider] - Within 1 Week Disposition Disposition (needs filled in before D/C Order can be placed): Home, Self Care
[2025-05-22 11:10] LABS: Prothrombin Time (Protime)PT. 27.8 SECONDS (11.7-14.9)
--- NOTE | 2025-05-22 12:11 | PHA.DC_ITS ---
Pharmacy [facility] Counseling Pharmacy Service has performed discharge medication reconciliation and counseling for this patient. The patient's discharge medication list was reviewed for discrepancies and discrepancies were resolved. The patient was counseled on the following discharge medications and changes in medications for homegoing were reviewed. The Reason for Use, instructions for use, and potential side effects were reviewed for all new medications. The patient's questions regarding all of their medications were answered. 1. Cefdinir 300 mg PO BID x 5 days 2. K-Phos PO BID x 5 days The patient was able to verbally demonstrate an understanding of their discharge medications. Medications at Discharge Home Medications pregabalin 150 mg capsule 150 mg PO DAILY pain 11/06/15 warfarin 1 mg tablet 2 mg PO DAILY 02/22/24 albuterol sulfate 90 mcg/actuation aerosol inhaler 2 puff inhalation Q4 PRN wheezing 10/13/24 atorvastatin 40 mg tablet 40 mg PO DAILY 05/20/25 cefdinir 300 mg capsule 300 mg PO BID #10 caps 05/22/25 sodium di- and monophosphate-potassium phos monobasic 250 mg tablet (A-Mall-Gyjufqa) 1 tab PO BID #10 tabs 05/22/25
[2025-05-22] MEDS: Potassium Phosphate 21 MM in 0.9% Normal Saline (250mL Bag) 250 ML 84 MM IV (12:49)
--- NOTE | 2025-05-22 13:36 | CASEMGMT ---
Patient has order for dishcarge. ST recommending outpatient ST at discharge. RN CM in to patient's room to discuss needs at discharge, at bedside. Patient and states [facility] and will follow-up with her tomorrow. Patient and deny further needs or help at discharge. Patient and had no further questions or concerns.
[2025-05-22 14:04] VITALS: BP 122/78; PULSE 78; RESP 17; TEMP 36.1; O2SAT 100
--- NOTE | 2025-05-22 14:35 | DS.PCM_ITS ---
Providers Date of Admission: 05/20/25 Primary Care Physician: Dr. Renzo Davidson, DO Reason For Visit: SUSPECTED SEPSIS SECONDARY TO PNEMONIA Diagnosis Discharge Diagnosis (1) Sepsis: Status: Acute Code(s): A41.9 - Sepsis, unspecified organism Medications at Discharge Home Medications pregabalin 150 mg capsule 150 mg PO DAILY pain 11/06/15 warfarin 1 mg tablet 2 mg PO DAILY 02/22/24 albuterol sulfate 90 mcg/actuation aerosol inhaler 2 puff inhalation Q4 PRN wheezing 10/13/24 atorvastatin 40 mg tablet 40 mg PO DAILY 05/20/25 cefdinir 300 mg capsule 300 mg PO BID #10 caps 05/22/25 sodium di- and monophosphate-potassium phos monobasic 250 mg tablet (L-Nwen-Fzosfrg) 1 tab PO BID #10 tabs 05/22/25 Hospital Course Operations None Procedures None Summary of Care Provided Minutes Spent on Discharge: 33 Hospital Course: Per HPI: TYRELL REYES, is a 74-year-old male history of carcinoma of the epiglottis with PEG tube, CVA, CKD, diabetes, COPD, alcohol use who presented to [facility] ED 05/20/2025 with weakness, fever, feeling generally unwell with increased pedal production and shortness of breath. In the ED temp 100.3 but had temp of up to 101.2 at home, heart rate 105 and blood pressure initially 93/58, respiratory rate 16 and pulse ox 94% on room air. Patient with white count of 14.2 and a hemoglobin 9.6. CMP with a BUN of 55 and a creatinine of 1.67, which appears baseline, glucose 153 and liver panel within normal limits. Lactic acid 1.5, proBNP 1246, INR 3.6, patient on Coumadin, and UA with 500 leuk esterase, 10-25 white cells and 1+ bacteria. Chest x-ray read as cardiomegaly with pulmonary congestion and edema and cannot rule out superimposed pneumonia. When patient stood he became lightheaded so orthostats obtained which showed a laying blood pressure of 98/46 which decreased to 73/41 on standing and patient was symptomatic. Antibiotics and IV fluids ordered and hospitalist contacted for admission. Patient evaluated at bedside, he reports 3 to 4 days of weakness, fever and chills, aches with shortness of breath and a productive cough with brown sputum, notes sometimes he will get some sharp pain on either side of his chest that is brief and does not seem to have anything that makes it better or worse, did clarify there is no substernal pain or pressure or persistent symptoms, reports he has been nauseous and had some vomiting and has had poor p.o. intake, has a PEG tube because he had epiglottal cancer so has tube feeds but also takes in some by mouth and has been doing less at this due to feeling unwell, also had diarrhea on Thursday. Denies any abdominal pain, denies any changes in urination, denies any swelling in the extremities. Hospital Course: 1. Sepsis secondary to Klebsiella UTI?74-year-old male presented to the hospital with signs and symptoms consistent with sepsis, he was placed in the ICU for closer monitoring as he had some orthostatic hypotension on admission that was making him symptomatic. He recovered very quickly and was transferred out of the unit within 24 hours. Urine cultures ultimately came back with Klebsiella that is sensitive to most antibiotics therefore we will continue with cefdinir for another 5 days. He does not require any oxygen and CT scan was not impressive in terms of pneumonia, antigen testing for Legionella and streptococcal antigens were negative and he was unable to give sputum culture so I do not think that he has bacterial pneumonia. He was feeling much better today and requested to be discharged home, I discussed with him the possibility and he expressed understanding of the risks and benefits of going home and would still like to go home today. I do recommend outpatient follow-up with his PCP in 3 to 5 days. Of note he did have a chronic right upper lobe nodule that appears to be stable. 2. Severe hypophosphatemia?today prior to discharge his phosphorus was down to 1.3, he did receive 21 mmol of sodium phosphorus and then I ordered another 21 mmol of potassium phosphorus. I do recommend outpatient follow-up with recheck of his phosphorus levels on the outpatient setting, I also did prescribe Neutra- Phos tablets. If his phosphorus does not recover, I would recommend evaluating his tube feeds. He may have some derangement in his phosphorus and calcium and vitamin D system however his calcium on the day of discharge was normal at 8.2. 3. Anemia of chronic disease?his hemoglobin was low on admission though it appears to be stabilized today. I do recommend outpatient follow-up for this as well given his chronic kidney disease there is likelihood that it is simply anemia of chronic disease. He denies any bright red blood per rectum or bleeding around his PEG tube that does not mean that there can't be a small bleed. Unfortunately he is on Coumadin for his A-fib his INR is 2.5 today on the day of discharge. He will need to be on Coumadin 1 mg daily as he is on antibiotics but I do recommend outpatient follow-up for his hemoglobin as well as he would need investigation if it continues to slowly drop. He is currently asymptomatic and the decrease does appear to be slow and he was given several liters of fluid during his sepsis workup so part of this is also dilutional. I do recommend close outpatient follow-up. 4. Chronic diastolic CHF, CKD 3, paroxysmal A-fib, COPD, history of epiglottis carcinoma with a PEG tube, history of CVA, history of alcohol abuse, type 2 diabetes are all chronic medical conditions which complicate his care. His home medications were continued where appropriate Physical Exam Narrative General: Alert, Oriented x3, Cooperative, No apparent distress HEENT: Atraumatic, PERRLA, EOMI, Normocephalic Oral: Moist Mucosa Neck: Supple, No JVD Lungs: Diminished, Normal air movement, No rhonchi, No wheeze, No rales Cardiovascular: Regular rate, Regular Rhythm, Normal S1, Normal S2, No murmurs Abdomen: Soft, Non Tender, Non-Distended, No Hepato-splenomegaly, PEG tube Extremities: No edema, Capillary Refill Less than 3 Seconds Skin: No rashes, No breakdown Musculoskeletal: No Tenderness to Palpation of Joints or Extremities Neurological: No focal neurological deficits, Motor Exam 5/5 strength throughout, Sensory exam intact to light touch and pain Psych/Mental Status: Normal Affect, Appropriate Weight / BMI Weight Weight: 155 lb 6.814 oz Body Mass Index (BMI) 24.3 ABG / Lab / Microbiology Data 05/22/25 05:26 05/22/25 05:26 Laboratory: Laboratory Results - last 24 hr 05/21/25 16:31: POC Glucose 223 H 05/22/25 05:26: WBC 13.5 H, RBC 2.80 L, Hgb 9.1 L, Hct 26.6 L, MCV 95.0 H, MCH 32.5 H, MCHC 34.2, RDW Std Deviation 43.5, RDW Coeff of Estela 12.6, Plt Count 138 L, MPV 10.3, Immature Gran % (Auto) 0.500, Neut % (Auto) 94.2 H, Lymph % (Auto) 2.4 L, [place] % (Auto) 2.8, Eos % (Auto) 0.0, Baso % (Auto) 0.1, Absolute Neuts (auto) 12.7 H, Absolute Lymphs (auto) 0.32 L, Nucleated RBC % 0, PT 32.6 H, INR 3.1, Sodium 140, Potassium 4.6, Chloride 107, Carbon Dioxide 24.7, Anion Gap 9, BUN 44 H, Creatinine 1.28 H, Estim Creat Clear Calc 45.90 L, Est GFR (MDRD) Non- Af 58 L, BUN/Creatinine Ratio 34.7 H, Glucose 247 H, Calcium 8.2, Phosphorus 1.3 L*, Magnesium 2.5 H 05/22/25 06:42: POC Glucose 193 H 05/22/25 10:30: PT 27.8 H, INR 2.5 05/22/25 11:36: POC Glucose 267 H Microbiology: Microbiology 05/20/25 12:35 Urine, Clean Catch Urine Culture - Final Klebsiella oxytoca 05/20/25 17:06 Mucosa - Nasopharyngeal Respiratory Panel (PCR) - Final 05/20/25 17:30 Urine Catheter - Catheter Legionella Antigen - Final 05/20/25 17:30 Urine Catheter - Catheter Streptococcus pneumoniae Antigen (M - Final 05/20/25 12:00 Mucosa - Nose SARS-CoV-2, Influenza & RSV (PCR) - Final D/C Instructions Call your doctor if you observe: Fever of 101 or Higher, Shortness of breath, Dizziness, Fainting spells, Swelling in the ankles, Chest pain and Increased palpitations (irregular heartbeat) DC O2, CPAP, BIPAP Needs Home O2 Discharge instructions: No Meaningful Use Info Meaningful Use Meaningful Use Diagnoses (Choose all that apply): None applicable Discharge Plan Admission Admit Date/Time: 05/20/25 14:59 Attending Provider: Randy Simon Primary Care Provider: Renzo Davidson Consulting Providers: Betzaida Patel; [employer] Instructions Additional Instructions / Restrictions: While taking the antibiotic decrease your Coumadin dosing to 1 mg daily and follow-up with your PCP for lab work and monitoring your INR. I also recommend following your phosphorus as this was very low on the day of discharge and that was replaced and I also provided you with phosphorus tablets on discharge for a few days Discharge Orders/Prescriptions Prescriptions: New cefdinir 300 mg capsule 300 mg PO BID Qty: 10 0RF S-[id number]-[id number] 250 mg tablet 1 tab PO BID Qty: 10 0RF Continued albuterol sulfate 90 mcg/actuation HFA aerosol inhaler 2 puff inhalation Q4 PRN (Reason: wheezing) pregabalin 150 MG capsule 150 mg PO DAILY Patient Comments: Pain warfarin 1 mg tablet 2 mg PO DAILY Protocol: Dose Management Condition: Thursday Dose/Route: 2 mg Instruction: 2 x 1 mg tablets Condition: Thursday Dose/Route: 2 mg Instruction: 2 x 1 mg tablets Condition: Thursday Dose/Route: 2 mg Instruction: 2 x 1 mg tablets Condition: Thursday Dose/Route: 2 mg Instruction: 2 x 1 mg tablets Condition: Dose/Route: 2 mg Instruction: 2 x 1 mg tablets Condition: Thursday Dose/Route: 2 mg Instruction: 2 x 1 mg tablets Condition: Thursday Dose/Route: 2 mg Instruction: 2 x 1 mg tablets Protocol Text: Adjustment Start Date: Thursday05/05/25 INR Value: 3.0 INR Date: 05/05/25 Recheck Date: 06/04/25 atorvastatin 40 mg tablet 40 mg PO DAILY Referrals / Follow Up: Renzo Davidson DO [Primary Care Provider] - 05/25/25 1:00 pm (APPOINTMENT IS AT THE [place] OFFICE ) Disposition Disposition (needs filled in before D/C Order can be placed): Home, Self Care Charges/Coding Visit Charges Inpatient E&M: 56027 Disch Hosp >30min
== END 2025-05-22 14:25 | disposition home or self-care (01) | DRG 872 ==
LOC: ED 14:19 → ICU 15:16 → PCU 05-21 08:32
PROVIDERS: Internal Medicine; Admitting Provider Internal Medicine; Emergency Provider Emergency Medicine; PCP Student in an Organized Health Care Education/Training Program; Visit Provider Family Medicine
DX: A41.59 Other Gram-negative sepsis (principal); I13.0 Hypertensive heart and chronic kidney disease with heart failure and stage 1 through stage 4 chronic kidney disease, or unspecified chronic kidney disease; I50.32 Chronic diastolic (congestive) heart failure; N39.0 Urinary tract infection, site not specified; D63.1 Anemia in chronic kidney disease; I48.0 Paroxysmal atrial fibrillation; E86.0 Dehydration; E83.39 Other disorders of phosphorus metabolism; J44.9 Chronic obstructive pulmonary disease, unspecified; N18.32 Chronic kidney disease, stage 3b; E11.51 Type 2 diabetes mellitus with diabetic peripheral angiopathy without gangrene; F10.11 Alcohol abuse, in remission; Z93.1 Gastrostomy status; E11.40 Type 2 diabetes mellitus with diabetic neuropathy, unspecified; E11.22 Type 2 diabetes mellitus with diabetic chronic kidney disease; I95.1 Orthostatic hypotension; I25.10 Atherosclerotic heart disease of native coronary artery without angina pectoris; E78.5 Hyperlipidemia, unspecified; I25.2 Old myocardial infarction; B96.1 Klebsiella pneumoniae [K. pneumoniae] as the cause of diseases classified elsewhere; Z79.01 Long term (current) use of anticoagulants; Z86.73 Personal history of transient ischemic attack (TIA), and cerebral infarction without residual deficits; Z87.891 Personal history of nicotine dependence; Z85.818 Personal history of malignant neoplasm of other sites of lip, oral cavity, and pharynx
CPT/HCPCS: 36415; 71046; 80048; 80053; 81001; 82962; 83605; 83735; 83880; 84100; 84443; 85025; 85610; 85730; 87040; 87077; 87086; 87088; 87186; 87449; 87631; 87633; 92526; 92610; 93005; 94640; 94668; 97161; 97166; 97802; 99285; A4216; J0696

== ENCOUNTER 2025-05-26 06:25 | Outpatient (RCR) | payer MEDICARE, OTHER, SELFPAY ==
[2025-05-26 22:36] LABS: INR Fingerstick 1.5
== END 2025-06-13 18:00 | disposition home or self-care (01) ==
LOC: LAB 06:25
PROVIDERS: PCP Student in an Organized Health Care Education/Training Program; Referring Provider Internal Medicine Cardiovascular Disease; Visit Provider Internal Medicine Cardiovascular Disease
DX: Z79.01 Long term (current) use of anticoagulants; E11.29 Type 2 diabetes mellitus with other diabetic kidney complication; N18.30 Chronic kidney disease, stage 3 unspecified; Z12.5 Encounter for screening for malignant neoplasm of prostate
CPT/HCPCS: 36416; 85610

== ENCOUNTER → 2025-08-04 | Outpatient (CLI) | payer MEDICARE, OTHER, SELFPAY ==
--- NOTE | 2025-08-04 09:38 | ART_ITS ---
Reason For Study Reason For Study: BLE Pain / Weakness Procedure A bilateral lower extremity continuous wave Doppler with analog waveform analysis and ankle brachial indexes. Left Segmental Pressures Left brachial= 170mmHg. Left posterior tibial artery = >254mmHg. Left dorsalis pedis artery = >254mmHg. Left digit = 63 mmHg. The left posterior tibial artery waveforms are biphasic. The left dorsalis pedis waveforms are biphasic. Right Segmental Pressures Right brachial= 178mmHg. Right posterior tibial artery = >254mmHg. Right dorsalis pedis artery = >254mmHg. Right digit = 63 mmHg. The right posterior tibial artery waveforms are biphasic. The right dorsalis pedis waveforms are biphasic. Indices The right ankle brachial index by the posterior tibial artery is N/C. The right ankle brachial index by the dorsalis pedis is N/C. The right digital-brachial index is 0.35. The left ankle brachial index by the posterior tibial artery is N/C. The left ankle brachial index by the dorsalis pedis is N/C. The left digital-brachial index is 0.35. VL/Ankle Brachial Index Interpretation Summary Right MICHELLE not able to be obtained due to non-compressible vessels. Doppler/PVR waveforms of the right ankle mildly diminished at rest. TBI diminished consistent with presence of disease. Left MICHELLE not able to be obtained due to non-compressible vessels. Doppler/PVR w aveforms of the left ankle moderately diminished at rest. TBI diminished consistent with presence of disease. Ordering Physician: Osmel Lynn Referring Physician: Renzo Davidson Performed By: Mynor Medina RVT
== END | disposition home or self-care (01) ==
LOC: CVS 09:37
PROVIDERS: PCP Student in an Organized Health Care Education/Training Program; Referring Provider Student in an Organized Health Care Education/Training Program; Visit Provider Student in an Organized Health Care Education/Training Program
DX: I73.9 Peripheral vascular disease, unspecified (principal)
CPT/HCPCS: 93922

== ENCOUNTER → 2025-09-12 | Outpatient (CLI) | payer MEDICARE, OTHER, SELFPAY ==
[2025-09-13 16:09] LABS: Cytoplasmic Ab (C-ANCA) <1:20 titer (Neg:<1:20); Perinuclear Ab (P-ANCA) <1:20 titer (Neg:<1:20)
== END | disposition home or self-care (01) ==
LOC: PAVLAB 09:14
PROVIDERS: PCP Student in an Organized Health Care Education/Training Program; Referring Provider Nurse Practitioner Family; Visit Provider Nurse Practitioner Family
DX: R06.00 Dyspnea, unspecified (principal)
CPT/HCPCS: 36415; 86037; 86200; 86431